=== PATIENT | female | born 1930 | race Caucasian/White ===

== ENCOUNTER 2016-08-05 08:22 | Outpatient (RCR) | payer MEDICARE ==
--- OUTSIDE RECORDS SUMMARY | 2016-05-19 09:52 | XMS REPORT | Continuity of Care Document ---
Author Author [facility] Organization [facility] Address Unknown Phone Unavailable Care Team Providers Care Hull [employer] Deck Remover Name Role Phone ANA LOMBARDI MD PCP Insurance Providers Payer Name Policy Number Subscriber Name Relationship Wps Medicare [id number] Mackenzie Cameronred I 18 Self / Same As Patient Blue Cross [facility] Supp [id number] Mackenzie Cameronred I 18 Self / Same As Patient Advance Directives Directive Response Recorded Date/Time Advance Directives Yes 11/23/13 10:12am Health Care Power of Survey Engineer Yes 11/23/13 10:12am Organ Donor No 11/23/13 10:12am Problems Medical Problems Problem Onset Date Status Abrasion Unknown Active CERVICAL STRAIN Unknown Active HEAD CONTUSION Unknown Active Hematoma Unknown Active LEFT HAND CONTUSION Unknown Active PERIORBITAL CONTUSION Unknown Active S/P FALL Unknown Active Medications Medication Dose Route Sig Days/Qty Instructions Order Date Discontinued Date Status [synthroid] 12/21/06 02/29/08 Discontinued Warfarin Sodium 12/21/06 06/08/09 Discontinued Acetaminophen 12/21/06 06/08/09 Discontinued Multivitamins 1 Tab PO DAILY 12/21/06 Active Aspirin 12/21/06 11/18/13 Discontinued [enablex] 12/21/06 02/29/08 Discontinued [Enavlex] 02/16/07 02/29/08 Discontinued [Cytomel 25MCG] 02/29/08 07/28/12 Discontinued Hydrochlorothiazide 02/29/08 09/16/09 Discontinued Metoprolol Succinate 100 Mg PO DAILY 02/29/08 11/18/13 Discontinued Levothyroxine Sodium 100 Mcg PO DAILY 02/29/08 Active Warfarin Sodium 02/29/08 06/08/09 Discontinued Warfarin Sodium 02/29/08 06/08/09 Discontinued [Oscal 500 W/Vit.d] 02/29/08 06/08/09 Discontinued Potassium Chloride 10 Meq PO DAILY 02/29/08 Active Calcium Carbonate/Vitamin D3 06/08/09 09/16/09 Discontinued Warfarin Sodium 06/08/09 09/16/09 Discontinued [Tylenol Arthritis] 06/08/09 09/16/09 Discontinued Alendronate Sodium 75 Mg PO WEEKLY 06/08/09 11/18/13 Discontinued Hydrochlorothiazide 25 Mg PO DAILY 06/08/09 Active Solifenacin 06/08/09 07/28/12 Discontinued [Arimidex] 06/08/09 07/28/12 Discontinued Warfarin Sodium 09/16/09 07/28/12 Discontinued Warfarin Sodium 5 Mg PO BEDTIME takes 1/2 (5mg) tab on thursday and , takes a full (5mg) tab 09/16/09 Active Acetaminophen/Diphenhydramine 2 Tab PO BEDTIME 09/16/09 Active [Tylenol Arthritis] 2 Tab PO 0800, 1300 09/16/09 Active Tolterodine Tartrate 2 Each PO DAILY 07/28/12 08/13/13 Discontinued Anastrozole 1 Mg PO DAILY 07/28/12 08/13/13 Discontinued Cholecalciferol (Vitamin D3) 2,000 Unit PO DAILY 08/13/13 Active Fesoterodine Fumarate 8 Mg PO DAILY 08/13/13 11/24/13 Discontinued Memantine 10 Mg PO DAILY 08/13/13 Active Metoprolol Succinate (Toprol Xl) 100 Mg PO DAILY 11/18/13 Active Docusate Sodium 100 Mg PO BEDTIME 11/18/13 Active Estrogens Conjugated 0.5 Gm VG BEDTIME 11/18/13 Active Liothyronine Sodium 25 Mcg PO DAILY 11/18/13 Active Alendronate Sodium 70 Mg PO WEEKLY 11/18/13 Active Ciprofloxacin HCl 500 Mg PO TWICE A DAY 10 Qty 11/24/13 Active Social History Social History Problem Response Recorded Date/Time Alcohol Use Rarely Uses 11/23/2013 10:14am Recreational Drug Use No 11/23/2013 10:14am Hospital Discharge Instructions No hospital discharge instructions. Plan of Care No plan of care. Functional Status No functional status results. Allergies, Adverse Reactions, Alerts Allergen Type Severity Reaction Status Last Updated morphine Adverse Reaction Mild NAUSEA Active 02/29/08 Codeine Adverse Reaction Mild NAUSEA Active 02/29/08 Pentazocine Allergy Unknown Active 12/21/06 meperidine Allergy Unknown Active 12/21/06 Immunizations Name Given Type Date of Pneumonia Vaccine 07/17/09 Historical Date of Influenza Vaccine 06/17/13 Historical Hepatitis A No Historical Hepatitis B No Historical Tetanus Booster (TDap) Unknown Historical Vital Signs No known vital signs results. Results Test Source Date Result Interp. Ref. Range Comments Activated Partial Thromboplast Time July 19, 2007 10:45am 27 SEC N 24-35 Has specimen been collected/obtained? Y Alanine Aminotransferase (ALT/SGPT) November 10, 2013 8:45am 42 U/L N 30- 65 Albumin November 10, 2013 8:45am 3.6 G/DL N 3.4-5.0 Alkaline Phosphatase November 10, 2013 8:45am 123 U/L N 50-136 Aspartate Amino Transf (AST/SGOT) November 10, 2013 8:45am 25 U/L N 15-37 BUN/Creatinine Ratio November 10, 2013 8:45am 16 - Band Neutrophils December 22, 2006 6:45am 0 % - Basophils # (Auto) November 10, 2013 8:45am 0.1 10^3/uL N 0.0-0.1 Basophils % (Manual) December 22, 2006 6:45am 2 % - Basophils (%) (Auto) November 10, 2013 8:45am 1 % N 0-10 Bleeding Time June 04, 2009 1:45pm 7.0 MIN N 2.5-9.5 Blood Urea Nitrogen November 10, 2013 8:45am 11 MG/DL N 7-18 CA 27.29 November 06, 2011 8:31am 12.6 U/ML - Calcium Level November 10, 2013 8:45am 8.7 MG/DL N 8.5-10.1 Carbon Dioxide Level November 10, 2013 8:45am 34 MMOL/L H 21-32 Chloride Level November 10, 2013 8:45am 102 MMOL/L N 101-110 Creatinine November 10, 2013 8:45am 0.7 MG/DL N 0.6-1.3 Eosinophils # (Auto) November 10, 2013 8:45am 0.2 10^3/uL N 0.0-0.3 Eosinophils % (Manual) December 22, 2006 6:45am 2 % - Eosinophils (%) (Auto) November 10, 2013 8:45am 3 % N 0-10 Erythrocyte Sedimentation Rate December 22, 2006 6:45am 67 MM/HR H 0-30 Free Thyroxine December 21, 2006 5:45pm 0.73 NG/DL N 0.59-1.17 Glucose Level November 10, 2013 8:45am 91 MG/DL N 74-106 Hematocrit November 10, 2013 8:45am 40 % N 35-52 Hemoglobin November 10, 2013 8:45am 12.8 G/DL N 11.5-16.0 Lymphocytes # (Auto) November 10, 2013 8:45am 1.3 X 10^3 N 1.0-4.0 Lymphocytes % (Manual) December 22, 2006 6:45am 12 % - Lymphocytes (%) (Auto) November 10, 2013 8:45am 23 % N 12-44 Magnesium Level May 14, 2010 8:59am 1.8 MG/DL N 1.8-2.4 Mean Corpuscular Hemoglobin November 10, 2013 8:45am 30 PG N 25-34 Mean Corpuscular Hemoglobin Concent November 10, 2013 8:45am 32 G/DL N 32- 36 Mean Corpuscular Volume November 10, 2013 8:45am 92 FL N 80-99 Mean Platelet Volume November 10, 2013 8:45am 9.3 FL N 7.4-10.4 Monocytes # (Auto) November 10, 2013 8:45am 0.6 X 10^3 N 0.0-1.0 Monocytes % (Manual) December 22, 2006 6:45am 7 % - Monocytes (%) (Auto) November 10, 2013 8:45am 10 % N 0-12 Neutrophils # (Auto) November 10, 2013 8:45am 3.5 X 10^3 N 1.8-7.8 Neutrophils % (Manual) December 22, 2006 6:45am 77 % - Neutrophils (%) (Auto) November 10, 2013 8:45am 63 % N 42-75 Phosphorus Level February 18, 2007 6:30am 3.2 MG/DL N 2.5-4.9 Platelet Count November 10, 2013 8:45am 216 10^3/uL N 130-400 Potassium Level November 10, 2013 8:45am 3.7 MMOL/L N 3.6-5.0 Prothromb Time International Ratio November 08, 2012 9:45am 2.7 H 0.8-1.4 INTERPRETIVE DATASUGGESTED THERAPEUTIC RANGE FOR INR'S: VENOUS THROMBOSIS, PULMONARY EMBOLISM, OR PREVENTION OF SYSTEMIC EMBOLISM (EG. IN ATRIAL FIBRILLATION): 2.0 - 3.0 MECHANICAL PROSTHETIC HEART VALVES: 2.5 - 3.5* *NOTE: INR'S UP TO 4.5 MAY BE NECESSARY IN SELECTED GROUPS OF HIGH RISK PATIENTS. [employer] CONSENSUS CONFERENCE ON ANTITHROMBOTIC THERAPY (2000). Prothrombin Time April 05, 2014 8:45am 29.6 SEC H 12.2-14.7 RBC Morphology Bizarre Forms December 22, 2006 6:45am Normal - Red Blood Count November 10, 2013 8:45am 4.33 10^6/uL L 4.35-5.85 Red Cell Distribution Width November 10, 2013 8:45am 14.1 % N 10.0-14.5 Sodium Level November 10, 2013 8:45am 137 MMOL/L N 135-145 Thyroid Stimulating Hormone (TSH) November 22, 2007 9:38am 1.49 UIU/ML N 0.34-5.60 Total Bilirubin November 10, 2013 8:45am 0.4 MG/DL N 0.0-1.0 Total Protein November 10, 2013 8:45am 7.1 G/DL N 6.4-8.2 Urine Bacteria June 04, 2009 1:33pm NEGATIVE - Has specimen been collected/obtained? YSpecimen Description CLEAN CATCH Urine Bilirubin June 04, 2009 1:33pm NEGATIVE - Has specimen been collected/obtained? YSpecimen Description CLEAN CATCH Urine Casts June 04, 2009 1:33pm NONE - Has specimen been collected/obtained? YSpecimen Description CLEAN CATCH Urine Clarity June 04, 2009 1:33pm CLEAR - Has specimen been collected/obtained? YSpecimen Description CLEAN CATCH Urine Color June 04, 2009 1:33pm YELLOW - Has specimen been collected/obtained? YSpecimen Description CLEAN CATCH Urine Crystals June 04, 2009 1:33pm NONE - Has specimen been collected/obtained? YSpecimen Description CLEAN CATCH Urine Culture Indicated June 04, 2009 1:33pm NO - Has specimen been collected/obtained? YSpecimen Description CLEAN CATCH Urine Glucose (UA) June 04, 2009 1:33pm NEGATIVE - Has specimen been collected/obtained? YSpecimen Description CLEAN CATCH Urine Ketones June 04, 2009 1:33pm NEGATIVE - Has specimen been collected/obtained? YSpecimen Description CLEAN CATCH Urine Leukocyte Esterase June 04, 2009 1:33pm NEGATIVE - Has specimen been collected/obtained? YSpecimen Description CLEAN CATCH Urine Mucus June 04, 2009 1:33pm NEGATIVE - Has specimen been collected/obtained? YSpecimen Description CLEAN CATCH Urine Nitrate December 21, 2006 7:20pm Negative - Specimen Description VOID Urine Nitrite June 04, 2009 1:33pm NEGATIVE - Has specimen been collected/obtained? YSpecimen Description CLEAN CATCH Urine Protein June 04, 2009 1:33pm NEGATIVE - Has specimen been collected/obtained? YSpecimen Description CLEAN CATCH Urine RBC June 04, 2009 1:33pm NONE /HPF - Has specimen been collected/obtained? YSpecimen Description CLEAN CATCH Urine Specific [place] June 04, 2009 1:33pm 1.015 L - Has specimen been collected/obtained? YSpecimen Description CLEAN CATCH Urine Squamous Epithelial Cells June 04, 2009 1:33pm 0-2 - Has specimen been collected/obtained? YSpecimen Description CLEAN CATCH Urine Urobilinogen June 04, 2009 1:33pm NORMAL MG/DL - Has specimen been collected/obtained? YSpecimen Description CLEAN CATCH Urine WBC June 04, 2009 1:33pm NONE /HPF - Has specimen been collected/obtained? YSpecimen Description CLEAN CATCH Urine pH June 04, 2009 1:33pm 6.0 - Has specimen been collected/ obtained? YSpecimen Description CLEAN CATCH Vitamin D 1,25-Dihydroxy August 01, 2010 10:58am 47 PG/ML - TEST INFORMATION: VITAMIN D, 1,25-Dihydroxy This test is primarily indicated during patient evaluation for hypercalcemia and renal failure. A normal result does not rule out Vitamin D deficiency. The recommended test for diagnosing Vitamin D deficiency is Vitamin D 25-hydroxy (8908183). Performed by [facility], [address] [place] [id number] [email or web address], Amie Araiza MD - Lab. Director White Blood Count November 10, 2013 8:45am 5.5 10^3/uL N 4.3-11.0 Lab Scanned Report June 08, 2009 5:45am Blood Transfusion Reaction Interp [id number] - Estimat Glomerular Filtration Rate November 10, 2013 8:45am > 60 - GFR INTERPRETIVE DATA UNITS FOR ESTIMATED GFR (eGFR): mL/min/1.73 M2 REFERENCE RANGE FOR ESTIMATED GFR (eGFR) eGFR NORMAL eGFR >60 MODERATELY DECREASED eGFR 30-59 SEVERLY DECREASED eGFR 15-29 KIDNEY FAILURE <15 (OR DIALYSIS) Urine RBC (Auto) June 04, 2009 1:33pm TRACE H - Has specimen been collected/obtained? YSpecimen Description CLEAN CATCH INR Comment April 05, 2014 8:45am 2.9 H 0.8-1.4 INTERPRETIVE DATASUGGESTED THERAPEUTIC RANGE FOR INR'S: VENOUS THROMBOSIS, PULMONARY EMBOLISM, OR PREVENTION OF SYSTEMIC EMBOLISM (EG. IN ATRIAL FIBRILLATION): 2.0 - 3.0 MECHANICAL PROSTHETIC HEART VALVES: 2.5 - 3.5* *NOTE: INR'S UP TO 4.5 MAY BE NECESSARY IN SELECTED GROUPS OF HIGH RISK PATIENTS. [employer] CONSENSUS CONFERENCE ON ANTITHROMBOTIC THERAPY (2000). Clostridium difficile Toxin Assay Stool December 24, 2006 1:50pm MRSA Screen Nasal November 17, 2013 2:25pm MRSA not isolated Urine Culture Urine-Clean Catch December 21, 2006 7:20pm Procedures No known history of procedures. Encounters Encounter Location Date/Time Registered Recurring Via [facility] 04/14/14 9:14am Registered Recurring [facility] 04/13/14 8:21am Discharged Recurring [facility] 04/05/14 8:35am
[2016-05-19 10:39] LABS: INR 2.1 (0.8-1.4); PROTHROMBIN TIME PATIENT 23.7 SEC (12.2-14.7)
[2016-06-10 09:24] LABS: INR 2.3 (0.8-1.4); PROTHROMBIN TIME PATIENT 25.4 SEC (12.2-14.7)
[2016-07-08 09:14] LABS: INR 2.4 (0.8-1.4)
[~2016-08-05 08:22] MED LIST: AC325T; ACDPT; ACDPT PO; ALEN35TA20 PO; ALEN70TA47 PO; ANAS1TAB7 PO; ARIMIDEX; ASP81TEC; ASPI-892 PO; BENZ100C18 PO; CALC1TAB88; CEFU800T34 PO; CHOL200035 PO; CIPR500T4 PO; CIPR500T78 PO; CYCL5TAB PO; CYTOMEL; D50KC; DICL100G18 TP; DOCU100T7 PO; EST45C VG; FESO8TAB PO; HCT25T; HCT25T PO; HYDR25TA4 PO; KCL10CCR PO; LEVO100T PO; LIOT25TA3 PO; LOSA25TA21 PO; LVT.1T PO; MEMA10TA PO; METO100T5 PO; METO50TA7 PO; MULT1TAB63 PO; NF-TYLARTH PO; OSCAL; OXYB10TA8 PO; POTA10CA43 PO; PRD20T PO; Pantoprazole Sodium PO; SOLI10TA4; TOLTA4 PO; TRAM50TA2 PO; TYLENOL ARTHRITIS; TYLENOL ARTHRITIS PO; VIT D; WARF2TAB6 PO; WARF3TAB6 PO; WARF4TAB7 PO; WARF7.5T; WARF7.5T PO; WRF2.5T; WRF5T; WRF5T PO; [UNRECOGNIZED DRUG - OTHER]; enablex; synthroid
[2016-08-05 09:07] LABS: INR 2.3 (0.8-1.4); PROTHROMBIN TIME PATIENT 25.1 SEC (12.2-14.7)
== END 2016-08-17 | disposition home or self-care (01) ==
LOC: ONC 08:22
PROVIDERS: ATTEND Internal Medicine Hematology & Oncology
DX: Z08 Encounter for follow-up examination after completed treatment for malignant neoplasm (principal); Z85.3 Personal history of malignant neoplasm of breast; M85.80 Other specified disorders of bone density and structure, unspecified site; Z86.718 Personal history of other venous thrombosis and embolism; Z95.2 Presence of prosthetic heart valve; Z79.01 Long term (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 of anticoagulants; Z90.12 Acquired absence of left breast and nipple
CPT/HCPCS: 36415; 85610

== ENCOUNTER → 2016-10-06 | Outpatient (CLI) | payer MEDICARE ==
--- OUTSIDE RECORDS SUMMARY | 2016-10-06 15:07 | XMS REPORT | Continuity of Care Document ---
Author Author [facility] Organization [facility] Address Unknown Phone Unavailable Care Team Providers Care Cloth Dye Range Operator Name Role Phone ANA LOMBARDI MD PCP Insurance Providers Payer Name Policy Number Subscriber Name Relationship Wps Medicare [id number] Mackenzie Cameronred I 18 Self / Same As Patient Blue Cross [facility] Supp [id number] Mackenzie Cameronred I 18 Self / Same As Patient Advance Directives Directive Response Recorded Date/Time Advance Directives Yes 11/23/13 10:12am Health Care Power of Ict Trainer Yes 11/23/13 10:12am Organ Donor No 11/23/13 [...] SELECTED GROUPS OF HIGH RISK PATIENTS. [employer] [place] [employer] CONSENSUS CONFERENCE ON [...] collected/obtained? YSpecimen Description CLEAN CATCH Urine Specific [place] June 04, 2009 1:33pm 1.015 L - [...] Vitamin D deficiency is Vitamin D 25-hydroxy ([id number]). Performed by [facility], [address] [place] [id number] [email or web address], Amie Araiza MD - Lab. Director White Blood Count November 10, 2013 8:45am 5.5 10^3/uL N 4.3-11.0 Lab Scanned Report June 08, 2009 5:45am Blood Transfusion Reaction Interp [id number] - Estimat Glomerular Filtration Rate November 10, [...] SELECTED GROUPS OF HIGH RISK PATIENTS. [employer] [place] [employer] CONSENSUS CONFERENCE ON ANTITHROMBOTIC THERAPY (2000). Clostridium difficile Toxin Assay Stool December 24, 2006 1:50pm MRSA Screen Nasal November 17, 2013 2:25pm MRSA not isolated Urine Culture Urine-Clean Catch December 21, 2006 7:20pm Procedures No known history of procedures. Encounters Encounter Location Date/Time Registered Recurring [facility] 04/14/14 9:14am Registered Recurring [facility] 04/13/14 8:21am Discharged Recurring [facility] 04/05/14 8:35am
--- NOTE | 2016-10-06 19:24 | Diagnostic Imaging Report ---
INDICATION: Pain. FINDINGS: There are moderately severe degenerative changes in the glenohumeral joint. There is subchondral sclerosis and marginal osteophytosis. There is no fracture or dislocation. Soft tissues are unremarkable. 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 Dictated by: Dictated on workstation # [id number]
--- NOTE | 2016-10-06 19:28 | Diagnostic Imaging Report ---
INDICATION: Pneumonia. Comparison made with prior examination of 05/05/2016. FINDINGS: The heart size is stable. There is unchanged scarring in the right upper lobe. There has been previous median sternotomy. There is no pleural effusion or pneumothorax. Mediastinum is unremarkable. IMPRESSION: No acute cardiopulmonary abnormality. Unchanged scarring or atelectasis in the right upper lobe. Dictated by: Dictated on workstation # [id number]
== END ==
LOC: RAD 15:03
PROVIDERS: ATTEND Family Medicine
DX: J18.9 Pneumonia, unspecified organism (principal); M25.511 Pain in right shoulder
CPT/HCPCS: 71020; 73030

== ENCOUNTER 2016-11-18 12:14 | Outpatient (RCR) | payer MEDICARE ==
--- OUTSIDE RECORDS SUMMARY | 2016-09-02 08:41 | XMS REPORT | Continuity of Care Document ---
Author Author [facility] Organization [facility] Address Unknown Phone Unavailable Care Team Providers Care Filtering Machine Tender Helper Name Role Phone ANA LOMBARDI MD PCP Insurance Providers Payer Name Policy Number Subscriber Name Relationship Wps Medicare [id number] Mackenzie Cameronred I 18 Self / Same As Patient Blue Cross [facility] Supp [id number] Mackenzie Cameronred I 18 Self / Same As Patient Advance Directives Directive Response Recorded Date/Time Advance Directives Yes 11/23/13 10:12am Health Care Power of Tyre Builder Yes 11/23/13 10:12am Organ Donor No 11/23/13 [...] SELECTED GROUPS OF HIGH RISK PATIENTS. [employer] [place] [employer] CONSENSUS CONFERENCE ON [...] collected/obtained? YSpecimen Description CLEAN CATCH Urine Specific [place] June 04, 2009 1:33pm 1.015 L - [...] Vitamin D deficiency is Vitamin D 25-hydroxy ([id number]). Performed by [facility], [address] [place] [id number] [email or web address], Amie Araiza MD - Lab. Director White Blood Count November 10, 2013 8:45am 5.5 10^3/uL N 4.3-11.0 Lab Scanned Report June 08, 2009 5:45am Blood Transfusion Reaction Interp [id number] - Estimat Glomerular Filtration Rate November 10, [...] SELECTED GROUPS OF HIGH RISK PATIENTS. [place] [place] [employer] CONSENSUS CONFERENCE ON ANTITHROMBOTIC THERAPY (2000). Clostridium difficile Toxin Assay Stool December 24, 2006 1:50pm MRSA Screen Nasal November 17, 2013 2:25pm MRSA not isolated Urine Culture Urine-Clean Catch December 21, 2006 7:20pm Procedures No known history of procedures. Encounters Encounter Location Date/Time Registered Recurring [facility] 04/14/14 9:14am Registered Recurring [facility] 04/13/14 8:21am Discharged Recurring [facility] 04/05/14 8:35am
[2016-09-02 09:23] LABS: INR 1.9 (0.8-1.4); PROTHROMBIN TIME PATIENT 21.6 SEC (12.2-14.7)
[2016-09-16 09:24] LABS: INR 1.6 (0.8-1.4); PROTHROMBIN TIME PATIENT 18.7 SEC (12.2-14.7)
[2016-09-23 09:12] LABS: INR 1.9 (0.8-1.4); PROTHROMBIN TIME PATIENT 21.6 SEC (12.2-14.7)
[2016-10-06 15:29] LABS: INR 4.1 (0.8-1.4); PROTHROMBIN TIME PATIENT 39.8 SEC (12.2-14.7)
[2016-10-14 09:36] LABS: INR 2.7 (0.8-1.4); PROTHROMBIN TIME PATIENT 28.6 SEC (12.2-14.7)
[2016-10-21 09:18] LABS: INR 1.6 (0.8-1.4); PROTHROMBIN TIME PATIENT 19.1 SEC (12.2-14.7)
[2016-10-28 09:28] LABS: INR 2.3 (0.8-1.4); PROTHROMBIN TIME PATIENT 24.9 SEC (12.2-14.7)
[2016-11-04 08:59] LABS: BASOPHILS % (AUTO) 1 % (0-10); EOSINOPHILS # (AUTO) 0.2 10^3/uL (0.0-0.3); EOSINOPHILS % (AUTO) 3 % (0-10); LYMPHOCYTES # (AUTO) 1.1 X 10^3 (1.0-4.0); LYMPHOCYTES % (AUTO) 15 % (12-44); MEAN CORPUSCULAR HEMOGLOBIN 29 PG (25-34); MEAN CORPUSCULAR HGB CONC 33 G/DL (32-36); MEAN CORPUSCULAR VOLUME 91 FL (80-99); MEAN PLATELET VOLUME 8.8 FL (7.4-10.4); MONOCYTES # (AUTO) 0.6 X 10^3 (0.0-1.0); MONOCYTES % (AUTO) 8 % (0-12); NEUTROPHILS # (AUTO) 5.1 X 10^3 (1.8-7.8); NEUTROPHILS % (AUTO) 72 % (42-75); PLATELET COUNT 215 10^3/uL (130-400); RED BLOOD COUNT 4.28 10^6/uL (4.35-5.85); RED CELL DISTRIBUTION WIDTH 14.8 % (10.0-14.5); WHITE BLOOD COUNT 7.1 10^3/uL (4.3-11.0)
[2016-11-04 09:28] LABS: INR 2.5 (0.8-1.4); PROTHROMBIN TIME PATIENT 26.6 SEC (12.2-14.7)
[2016-11-04 09:43] LABS: ALANINE AMINOTRANSFERASE 18 U/L (0-55); ALBUMIN 3.9 G/DL (3.2-4.5); ANION GAP 10 MMOL/L (5-14); ASPARTATE AMINO TRANSFERASE 21 U/L (5-34); BILIRUBIN,TOTAL 0.4 MG/DL (0.1-1.0); BLOOD UREA NITROGEN 12 MG/DL (7-18); BUN/CREATININE RATIO 15; CALCIUM 8.8 MG/DL (8.5-10.1); CARBON DIOXIDE 27 MMOL/L (21-32); CHLORIDE 102 MMOL/L (98-107); CREATININE SERUM 0.79 MG/DL (0.60-1.30); GFR ESTIMATED > 60; GLUCOSE 89 MG/DL (70-105); POTASSIUM 3.8 MMOL/L (3.6-5.0); SODIUM 139 MMOL/L (135-145); TOTAL PROTEIN 6.6 G/DL (6.4-8.2)
[2016-11-18 13:14] LABS: INR 2.1 (0.8-1.4); PROTHROMBIN TIME PATIENT 22.9 SEC (12.2-14.7)
== END 2016-12-01 | disposition home or self-care (01) ==
LOC: ONC 12:14
PROVIDERS: ATTEND Internal Medicine Hematology & Oncology
DX: Z08 Encounter for follow-up examination after completed treatment for malignant neoplasm (principal); Z85.3 Personal history of malignant neoplasm of breast; M85.80 Other specified disorders of bone density and structure, unspecified site; Z86.718 Personal history of other venous thrombosis and embolism; Z95.2 Presence of prosthetic heart valve; Z79.01 Long term (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 of anticoagulants; Z90.12 Acquired absence of left breast and nipple
CPT/HCPCS: 36415; 80053; 85025; 85610; 99213

== ENCOUNTER → 2016-11-20 | Outpatient (CLI) | payer MEDICARE ==
--- NOTE | 2016-11-20 19:27 | Diagnostic Imaging Report ---
EXAMINATION: Right breast ultrasound. INDICATION: Asymmetry in the inferior aspect of the breast and outer breast pain. FINDINGS: The four quadrants and the retroareolar region and axilla were scanned with no underlying abnormality found. IMPRESSION: Negative study. Clinical followup of patient's complaints recommended. ACR BI-RADS Category 1: Negative. Result letter will be mailed to the patient. Note: At least 10% of breast cancer is not imaged by mammography. Dictated by: Dictated on workstation # [id number]
--- NOTE | 2016-11-20 19:32 | Diagnostic Imaging Report ---
EXAMINATION: Right breast digital diagnostic mammogram with CAD. The current study was also evaluated with a Computer Aided Detection (CAD) system. INDICATION: History of breast cancer. Right axillary pain. COMPARISON: 11/19/2015. FINDINGS: Previous surgical changes are seen with extensive benign-appearing calcifications noted. The breast tissue demonstrates heterogeneously dense parenchyma, particularly in the outer aspect of the breast, which may decrease mammographic sensitivity. No definitive abnormality is seen in the axilla area. There is also an asymmetry in the inferior aspect of the right breast which was evaluated with focal compression view which demonstrates underlying densities similar to parenchyma with no definite focal lesion. When prior studies are evaluated and when accounting for technique and positional differences, this area appears stable with no definite change. IMPRESSION: No mammographic evidence of malignancy. Ultrasound evaluation pending. ACR BI-RADS Category 0: Incomplete. (Needs additional imaging evaluation). Result letter will be mailed to the patient. Note: At least 10% of breast cancer is not imaged by mammography. Dictated by: Dictated on workstation # [id number]
== END ==
LOC: RAD 08:37
PROVIDERS: ATTEND Nurse Practitioner Adult Health
DX: C50.112 Malignant neoplasm of central portion of left female breast (principal)
CPT/HCPCS: 76641

== ENCOUNTER 2016-12-11 12:56 | Outpatient (RCR) | payer MEDICARE | END 2016-12-12 09:04 | disposition home or self-care (01) | PROVIDERS: ATTEND Nurse Practitioner Adult Health | DX: M25.511 Pain in right shoulder (principal) ==

== ENCOUNTER 2017-02-24 08:37 | Outpatient (RCR) | payer MEDICARE ==
[2016-12-02 09:25] LABS: PROTHROMBIN TIME PATIENT 22.6 SEC (12.2-14.7)
[2016-12-16 09:23] LABS: INR 2.5 (0.8-1.4); PROTHROMBIN TIME PATIENT 26.5 SEC (12.2-14.7)
[2017-01-06 09:23] LABS: INR 3.1 (0.8-1.4); PROTHROMBIN TIME PATIENT 32.1 SEC (12.2-14.7)
[2017-01-27 09:43] LABS: INR 2.6 (0.8-1.4); PROTHROMBIN TIME PATIENT 27.6 SEC (12.2-14.7)
[2017-02-24 10:17] LABS: INR 1.8 (0.8-1.4); PROTHROMBIN TIME PATIENT 20.4 SEC (12.2-14.7)
== END 2017-03-02 | disposition home or self-care (01) ==
LOC: ONC 08:37
PROVIDERS: ATTEND Internal Medicine Hematology & Oncology
DX: Z08 Encounter for follow-up examination after completed treatment for malignant neoplasm (principal); Z85.3 Personal history of malignant neoplasm of breast; M85.80 Other specified disorders of bone density and structure, unspecified site; Z86.718 Personal history of other venous thrombosis and embolism; Z95.2 Presence of prosthetic heart valve; Z79.01 Long term (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 of anticoagulants; Z90.12 Acquired absence of left breast and nipple
CPT/HCPCS: 36415; 85610

== ENCOUNTER → 2017-03-04 | Outpatient (CLI) | payer MEDICARE ==
--- NOTE | 2017-03-04 11:18 | Diagnostic Imaging Report ---
CLINICAL INDICATION: Patient with low back pain with no trauma or injury. Back pain just started hurting and got worse. EXAM: X-ray of the lumbar spine, four views. COMPARISON: None. FINDINGS: There is bowel gas overlying the mid and lower lung field and diffuse osteopenia which limits evaluation for fine bony detail. There is mild levoscoliosis of lumbar spine. There is no gross acute lumbar spine fracture seen. There is vertebral body spurs involving lumbar spine and mid to lower lumbar spine facet arthropathy/sclerosis. There appears to be subtle grade 1 anterolisthesis of L4 on L5. There is mild loss of intervertebral disc height at the L4-5 level and moderate loss at the L5-S1 level. The sacroiliac joints, sacrum, and visualized portions of the pelvis are unremarkable. IVC filter is seen with tip overlying the L1-L2 intervertebral level. IMPRESSION: 1: There is no gross evidence of acute fracture seen on this exam. Given the diffuse osteopenia, if there is concern for acute fracture, then MRI of the lumbar spine would better evaluate. 2: Lumbar spine degenerative disease including mild levoscoliosis. Dictated by: Dictated on workstation # [id number]
== END ==
LOC: LAB 09:32
PROVIDERS: ATTEND Nurse Practitioner Family
DX: M47.816 Spondylosis without myelopathy or radiculopathy, lumbar region (principal); M41.26 Other idiopathic scoliosis, lumbar region; M85.89 Other specified disorders of bone density and structure, multiple sites
CPT/HCPCS: 72100

== ENCOUNTER 2017-05-05 08:35 | Outpatient (RCR) | payer MEDICARE ==
[2017-03-10 09:40] LABS: INR 6.5 (0.8-1.4); PROTHROMBIN TIME PATIENT 57.3 SEC (12.2-14.7)
[2017-03-13 11:10] LABS: INR 1.3 (0.8-1.4); PROTHROMBIN TIME PATIENT 15.8 SEC (12.2-14.7)
[2017-03-19 09:38] LABS: INR 1.6 (0.8-1.4); PROTHROMBIN TIME PATIENT 19.2 SEC (12.2-14.7)
[2017-03-25 11:26] LABS: INR 2.4 (0.8-1.4); PROTHROMBIN TIME PATIENT 25.7 SEC (12.2-14.7)
[2017-04-07 09:51] LABS: INR 4.1 (0.8-1.4); PROTHROMBIN TIME PATIENT 39.2 SEC (12.2-14.7)
[2017-04-14 09:15] LABS: INR 2.6 (0.8-1.4); PROTHROMBIN TIME PATIENT 27.8 SEC (12.2-14.7)
[2017-04-21 10:26] LABS: INR 2.8 (0.8-1.4); PROTHROMBIN TIME PATIENT 29.2 SEC (12.2-14.7)
[2017-05-05 09:08] LABS: BASOPHILS % (AUTO) 0 % (0-10); EOSINOPHILS # (AUTO) 0.1 10^3/uL (0.0-0.3); EOSINOPHILS % (AUTO) 2 % (0-10); LYMPHOCYTES % (AUTO) 15 % (12-44); MEAN CORPUSCULAR HEMOGLOBIN 28 PG (25-34); MEAN CORPUSCULAR HGB CONC 32 G/DL (32-36); MEAN CORPUSCULAR VOLUME 89 FL (80-99); MEAN PLATELET VOLUME 8.6 FL (7.4-10.4); MONOCYTES # (AUTO) 0.8 X 10^3 (0.0-1.0); MONOCYTES % (AUTO) 12 % (0-12); NEUTROPHILS # (AUTO) 4.8 X 10^3 (1.8-7.8); NEUTROPHILS % (AUTO) 71 % (42-75); PLATELET COUNT 236 10^3/uL (130-400); RED BLOOD COUNT 4.22 10^6/uL (4.35-5.85); WHITE BLOOD COUNT 6.8 10^3/uL (4.3-11.0)
[2017-05-05 10:01] LABS: INR 2.5 (0.8-1.4); PROTHROMBIN TIME PATIENT 26.9 SEC (12.2-14.7)
[2017-05-05 10:07] LABS: ALANINE AMINOTRANSFERASE 18 U/L (0-55); ALBUMIN 3.8 GM/DL (3.2-4.5); ANION GAP 10 MMOL/L (5-14); ASPARTATE AMINO TRANSFERASE 19 U/L (5-34); BILIRUBIN,TOTAL 0.6 MG/DL (0.1-1.0); BLOOD UREA NITROGEN 8 MG/DL (7-18); BUN/CREATININE RATIO 12; CALCIUM 8.9 MG/DL (8.5-10.1); CARBON DIOXIDE 28 MMOL/L (21-32); CHLORIDE 98 MMOL/L (98-107); CREATININE SERUM 0.68 MG/DL (0.60-1.30); GFR ESTIMATED > 60; GLUCOSE 95 MG/DL (70-105); SODIUM 136 MMOL/L (135-145); TOTAL PROTEIN 6.2 GM/DL (6.4-8.2)
[2017-05-13] MEDS ORDERED: MEMA10TA22 PO (11:18)
[2017-05-13] MEDS ORDERED: METO-274 PO (11:18)
[2017-05-13] MEDS ORDERED: ASPI-983 PO (11:18)
[2017-05-13] MEDS ORDERED: MIRA50TA PO (11:18)
[2017-05-13] MEDS ORDERED: POTA10CA43 PO (11:18)
[2017-05-13] MEDS ORDERED: LEVO137T2 PO (11:18)
[2017-05-13] MEDS ORDERED: MULT1TAB69 PO (11:18)
[2017-05-13] MEDS ORDERED: ALEN70TA47 PO (11:18)
[2017-05-13] MEDS ORDERED: PRAV10TA PO (11:18)
[2017-05-13] MEDS ORDERED: HYDR25TA4 PO (11:18)
[2017-05-13] MEDS ORDERED: ACET-2469 PO (11:18)
[2017-05-13] MEDS ORDERED: MULT80TA PO (11:31)
[2017-05-13] MEDS ORDERED: WARF2TAB PO (11:31)
[2017-05-13] MEDS ORDERED: DOCU-143 PO (11:31)
[2017-05-13] MEDS ORDERED: CYAN500T2 PO (11:31)
[2017-05-13] MEDS ORDERED: VIT1CAPS44 PO (11:31)
[2017-05-13] MEDS ORDERED: SLOW IRON PO (11:31)
[2017-05-13] MEDS ORDERED: CHOL20002 PO (11:31)
[2017-05-13] MEDS ORDERED: POLY17PO6 PO (11:31)
[2017-05-13] MEDS ORDERED: ACID1TAB5 PO (11:47)
== END 2017-05-16 | disposition home or self-care (01) ==
LOC: ONC 08:35
PROVIDERS: ATTEND Internal Medicine Hematology & Oncology
DX: Z08 Encounter for follow-up examination after completed treatment for malignant neoplasm (principal); Z85.3 Personal history of malignant neoplasm of breast; M85.80 Other specified disorders of bone density and structure, unspecified site; Z86.718 Personal history of other venous thrombosis and embolism; Z95.2 Presence of prosthetic heart valve; Z79.01 Long term (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 of anticoagulants; Z90.12 Acquired absence of left breast and nipple
CPT/HCPCS: 36415; 80053; 85025; 85610; 99213

== ENCOUNTER 2017-05-11 11:41 | Outpatient (CLI) | payer MEDICARE ==
[~2017-05-11] VITALS: Ht 167.6 cm; Wt 77.1 kg
[2017-05-11] MEDS ORDERED: ONDANSETRON 4 MG/2 ML (SDV) Z0FRAN ONE (11:59)
[2017-05-11] MEDS ORDERED: NS IV 1000 ML 1,000 ML ONE (11:59)
[2017-05-11 12:20] LABS: MEAN PLATELET VOLUME 9.6 FL (7.4-10.4); RED BLOOD COUNT 4.59 10^6/uL (4.35-5.85); WHITE BLOOD COUNT 6.4 10^3/uL (4.3-11.0)
[2017-05-11] MEDS ORDERED: NS IV 1000 ML 1,000 ML IV SCH (12:30)
[2017-05-11] MEDS ORDERED: ONDANSETRON 4 MG/2 ML (SDV) Z0FRAN IVP ONE (12:30)
[2017-05-11 12:32] LABS: ALANINE AMINOTRANSFERASE 25 U/L (0-55); ALBUMIN 3.5 GM/DL (3.2-4.5); ANION GAP 11 MMOL/L (5-14); ASPARTATE AMINO TRANSFERASE 33 U/L (5-34); BILIRUBIN,TOTAL 0.4 MG/DL (0.1-1.0); BLOOD UREA NITROGEN 14 MG/DL (7-18); BUN/CREATININE RATIO 21; CALCIUM 8.2 MG/DL (8.5-10.1); CARBON DIOXIDE 26 MMOL/L (21-32); CHLORIDE 95 MMOL/L (98-107); CREATININE SERUM 0.66 MG/DL (0.60-1.30); GFR ESTIMATED > 60; GLUCOSE 108 MG/DL (70-105); POTASSIUM 3.1 MMOL/L (3.6-5.0); SODIUM 132 MMOL/L (135-145); TOTAL PROTEIN 6.5 GM/DL (6.4-8.2)
[2017-05-11 12:49] VITALS: BP 141/71
--- NOTE | 2017-05-11 12:51 | Diagnostic Imaging Report ---
EXAMINATION: Three views of the right shoulder. INDICATION: Fall. FINDINGS: No fracture, dislocation, or radiopaque foreign body is seen. The AC joint demonstrates mild narrowing and hypertrophic degenerative change. There are also inferior osteophytes along the glenohumeral joint with mild irregularity of the articular surface. There is suggestion of scarring in the right suprahilar region of the lung. IMPRESSION: Degenerative changes. No fracture is seen. Dictated by: Dictated on workstation # [id number]
[2017-05-11 17:33] LABS: BILIRUBIN,URINE NEGATIVE (NEGATIVE); KETONES,URINE 4+ (NEGATIVE); LEUKOCYTE ESTERASE ,URINE 2+ (NEGATIVE); NITRITE,URINE NEGATIVE (NEGATIVE); PH,URINE 6 (5-9); PROTEIN,URINE 2+ (NEGATIVE); UROBILINOGEN,URINE 4 MG/DL (NORMAL)
[2017-05-11 17:35] LABS: SQUAMOUS EPITHELIAL CELL,UR RARE /HPF
== END 2017-05-11 14:15 | disposition home or self-care (01) ==
LOC: SDC 11:41
PROVIDERS: ATTEND Nurse Practitioner Family
DX: E86.0 Dehydration (principal); R53.1 Weakness; R53.83 Other fatigue
CPT/HCPCS: 36415; 73030; 80053; 81000; 85027; 96360; 96375

== ENCOUNTER 2017-05-12 17:04 | Inpatient (IN) | payer MEDICARE ==
[~2017-05-12] VITALS: Ht 165.1 cm; Wt 81.2 kg
[2017-05-12 00:30] VITALS: BP 106/54
--- NOTE | 2017-05-12 18:20 | ED General ---
General Chief Complaint: Dizziness/Syncope Stated Complaint: SOA,WEAKNESS Nursing Triage Note: hx of fall last Sat night, f/u with Héctor this last Thursday and sent to [facility] for fluids, xray and labs, daughter with pt and states she has had diarrhea and extreme weakness, pt currently has appt with cardiology (Dr. Butler) for echo and f/u this . Pt states she is not eating and has only urinated once today with minimal amount. Diarrhea x2 today, loose and watery, denies blood in stool. Nursing Sepsis Screen: No Definite Risk Source of Information: Patient, Family Exam Limitations: No Limitations History of Present Illness Time Seen by Provider: 18:17 Initial Comments Brought to ER by her daughter with reports of general weakness for the past few days. Patient is a poor appetite has not been eating or drinking as well as only urinated one time today. She did have 2 episodes of watery diarrhea without blood or mucus. Patient denies any abdominal pain. She did fall at home landing on her shoulder a few days ago. She denies any persistent shoulder pain or striking her head at that time. She did see any Darrion from Dr. Anaya's clinic last week and had outpatient labs drawn in addition to IV fluids. Reassessment has been ongoing for one week and this follows 2 rounds of antibiotics for urinary tract infection. Timing/Duration: 1-2 Days Severity: Moderate Associated Systoms: Nausea/Vomiting (nausea without vomiting), Weakness Allergies and Home Medications Allergies Coded Allergies: meperidine (Verified Allergy, Unknown, 07/28/14) pentazocine (Verified Allergy, Unknown, 07/28/14) codeine (Verified Adverse Reaction, Mild, NAUSEA, 07/28/14) morphine (Verified Adverse Reaction, Mild, NAUSEA, 07/28/14) Home Medications Acetaminophen/Diphenhydramine 1 Ea Tab, 2 TAB PO HS, (Reported) Alendronate Sodium 70 Mg Tablet, 70 MG PO WEEKLY ON THU, (Reported) Aspirin 81 Mg Tabec, 81 MG PO DAILY, (Reported) Cholecalciferol (Vitamin D3) 2,000 Unit Capsule, 2,000 UNIT PO DAILY, (Reported) Ciprofloxacin HCl 500 Mg Tablet, 500 MG PO BID, (Reported) Cyclobenzaprine HCl 5 Mg Tablet, 5 MG PO TID, (Reported) Diclofenac Sodium 100 Gm Gel..gram., 100 GM TP, (Reported) Docusate Sodium 100 Mg Tablet, 100 MG PO HS, (Reported) Hydrochlorothiazide 25 Mg Tablet, 25 MG PO DAILY, (Reported) Levothyroxine Sodium 100 Mcg Tablet, 100 MCG PO DAILY, (Reported) Losartan Potassium 25 Mg Tablet, 25 MG PO DAILY, (Reported) Memantine Hcl 10 Mg Tablet, 10 MG PO BID, (Reported) Metoprolol Succinate 100 Mg Tab.sr.24h, 100 MG PO DAILY, (Reported) Multivitamins 1 Ea Tablet, 1 TAB PO DAILY, (Reported) Oxybutynin Chloride 10 Mg Tab.er.24, 10 MG PO DAILY, (Reported) Potassium Chloride 10 Meq Capsule.sa, 10 MEQ PO DAILY, (Reported) Prednisone 20 Mg Tablet, 20 MG PO DAILY, #10 Prescribed by: ANA LOMBARDI on 08/03/14821 Tramadol HCl 50 Mg Tablet, 50 MG PO Q6H PRN for PAIN, #20 Prescribed by: SERAFIN LAWSON on 04/07/162015 Warfarin Sodium 2 Mg Tablet, 2 MG PO DAILY, #30 Prescribed by: PRUDENCE TUBBS on 08/03/144 [Pantoprazole Sodium] 20 MG TABLET.DR, 20 MG PO DAILY@1300, #30 Prescribed by: ANA LOMBARDI on 08/03/14821 Constitutional: see HPI, weakness EENTM: see HPI Respiratory: see HPI, short of breath (only on exertion) Cardiovascular: no symptoms reported Gastrointestinal: No abdominal pain, No constipation, No diarrhea, No dysphagia Genitourinary: no symptoms reported Musculoskeletal: no symptoms reported Skin: no symptoms reported Psychiatric/Neurological: No Symptoms Reported Hematologic/Lymphatic: No Symptoms Reported Immunological/Allergic: no symptoms reported Past Twjoktz-Ubgmys-Mweubu Hx Patient Social History Former Smoker, Quit: Apr 07, 1950 Recent Foreign Travel: No Contact w/Someone Who Travel: No Recent Infectious Disease Expo: No Immunizations Up To Date Tetanus Booster (TDap): Unknown PED Vaccines UTD: No Date of Pneumonia Vaccine: Jul 17, 2009 Date of Influenza Vaccine: Apr 17, 2014 Surgeries Surgeries: Adenoidectomy, Appendectomy, Bladder Surgery, Eye Surgery, Gallbladder, Hysterectomy, Lumpectomy, Orthopedic, Thyroidectomy, Tonsillectomy Cardiovascular Cardiac Disorders: Heart Attack, High Cholesterol, Hypertension Neurological Neurological Disorders: Dementia Reproductive System Hx Reproductive Disorders: No Gastrointestinal Gastrointestinal Disorders: Gall Bladder Disease Musculoskeletal Musculoskeletal Disorders: Arthritis, Fractures Endocrine Endocrine Disorders: Hypothyroidsim HEENT HEENT Disorders: Cataract, Double Vision Cancer Cancer: Breast Blood Transfusions Adverse Reaction to a Blood Tr: No Family Medical History Family Medial History: FH: breast cancer 19 MOTHER AUNT AUNT AUNT DAUGHTER FH: cancer of GI tract G8 BROTHER FH: lung cancer 19 FATHER G8 BROTHER Myocardial infarction G8 BROTHER G8 BROTHER G8 BROTHER Physical Exam Vital Signs Vital Sign - Last 12Hours 05/12/17 17:56 Temp 98.6 Pulse 98 Resp 20 B/P (MAP) 105/71 Pulse Ox 93 O2 Delivery Room Air Capillary Refill : Less Than 3 Seconds General Appearance: No Apparent Distress, WD/WN Eyes: Bilateral Eye Normal Inspection, Bilateral Eye PERRL, Bilateral Eye EOMI HEENT: PERRL/EOMI, TMs Normal Neck: Full Range of Motion, Normal Inspection Respiratory: Normal Breath Sounds, No Accessory Muscle Use, No Respiratory Distress Cardiovascular: Regular Rate, Rhythm, Normal Peripheral Pulses Gastrointestinal: Normal Bowel Sounds, Non Tender, Soft Extremity: Normal Capillary Refill, No Calf Tenderness Neurologic/Psychiatric: Alert, Oriented x3 Skin: Normal Color, Warm/Dry Progress/Results/Core Measures Results/Orders Lab Results Laboratory Tests Test 05/12/17 18:30 05/12/17 19:57 Range/Units White Blood Count 8.5 4.3-11.0 10^3/uL Red Blood Count 4.43 4.35-5.85 10^6/uL Hemoglobin 12.4 11.5-16.0 G/DL Hematocrit 38 35-52 % Mean Corpuscular Volume 86 80-99 FL Mean Corpuscular Hemoglobin 28 25-34 PG Mean Corpuscular Hemoglobin Concent 33 32-36 G/DL Red Cell Distribution Width 14.9 H 10.0-14.5 % Platelet Count 209 130-400 10^3/uL Mean Platelet Volume 9.2 7.4-10.4 FL Neutrophils (%) (Auto) 80 H 42-75 % Lymphocytes (%) (Auto) 9 L 12-44 % Monocytes (%) (Auto) 10 0-12 % Eosinophils (%) (Auto) 1 0-10 % Basophils (%) (Auto) 0 0-10 % Neutrophils # (Auto) 6.8 1.8-7.8 X 10^3 Lymphocytes # (Auto) 0.8 L 1.0-4.0 X 10^3 Monocytes # (Auto) 0.8 0.0-1.0 X 10^3 Eosinophils # (Auto) 0.1 0.0-0.3 10^3/uL Basophils # (Auto) 0.0 0.0-0.1 10^3/uL Sodium Level 133 L 135-145 MMOL/L Potassium Level 3.0 L 3.6-5.0 MMOL/L Chloride Level 96 L 98-107 MMOL/L Carbon Dioxide Level 25 21-32 MMOL/L Anion Gap 12 5-14 MMOL/L Blood Urea Nitrogen 14 7-18 MG/DL Creatinine 0.64 0.60-1.30 MG/DL Estimat Glomerular Filtration Rate > 60 BUN/Creatinine Ratio 22 Glucose Level 109 H 70-105 MG/DL Calcium Level 8.0 L 8.5-10.1 MG/DL Total Bilirubin 0.4 0.1-1.0 MG/DL Aspartate Amino Transf (AST/SGOT) 28 5-34 U/L Alanine Aminotransferase (ALT/SGPT) 22 0-55 U/L Alkaline Phosphatase 115 40-136 U/L Troponin I < 0.30 <0.30 NG/ML B-Type Natriuretic Peptide 99.7 <100.0 PG/ML Total Protein 5.8 L 6.4-8.2 GM/DL Albumin 3.2 3.2-4.5 GM/DL Thyroid Stimulating Hormone (TSH) 0.28 L 0.35-4.94 UIU/ML Free Thyroxine 1.47 0.70-1.48 NG/DL Urine Color KORY H Urine Clarity SLIGHTLY CLOUDY Urine pH 6 5-9 Urine Specific [place] 1.015 L 1.016-1.022 Urine Protein 2+ H NEGATIVE Urine Glucose (UA) NEGATIVE NEGATIVE Urine Ketones 3+ H NEGATIVE Urine Nitrite NEGATIVE NEGATIVE Urine Bilirubin NEGATIVE NEGATIVE Urine Urobilinogen 4 H NORMAL MG/DL Urine Leukocyte Esterase 3+ H NEGATIVE Urine RBC (Auto) 1+ H NEGATIVE Urine RBC 0-2 /HPF Urine WBC 10-25 H /HPF Urine Squamous Epithelial Cells 5-10 /HPF Urine Crystals NONE /LPF Urine Bacteria FEW H /HPF Urine Casts NONE /LPF Urine Mucus SMALL H /LPF Urine Culture Indicated YES My Orders Orders - CIRILO SHAH APRN Cbc With Automated Diff (05/12/17 18:07) Comprehensive Metabolic Panel (05/12/17 18:07) Ua Culture If Indicated (05/12/17 18:07) Troponin I (05/12/17 18:07) Ekg Tracing (05/12/17 18:07) Chest 1 View, Ap/Pa Only (05/12/17 18:07) Saline Lock/Iv-Start (05/12/17 18:07) BNP (05/12/17 18:07) Ondansetron Injection (Zofran Injectio (05/12/17 18:45) Ns Iv 1000 Ml (Sodium Chloride 0.9%) (05/12/17 18:45) Thyroid Stimulating Hormone (05/12/17 18:42) Free T4 (Free Thyroxine) (05/12/17 18:42) Potassium Chloride Powder (Klor Con 20 M (05/12/17 19:00) Stool Culture (05/12/17 19:58) Parasite Scrn Stool Giard Cryp (05/12/17 19:58) C Difficile Ag + Toxin A/B. (05/12/17 19:58) Protime With Inr (05/12/17 20:02) Urine Culture (05/12/17 19:57) Medications Given in ED Current Medications Medications Dose Ordered Sig/Melissa Route Start Time Stop Time Status Last Admin Dose Admin Ondansetron HCl 4 mg ONCE ONCE IVP 05/12/17 18:45 05/12/17 18:46 DC 05/12/17 18:49 4 MG Vital Signs/I&O Vital Sign - Last 12Hours 05/12/17 17:56 Temp 98.6 Pulse 98 Resp 20 B/P (MAP) 105/71 Pulse Ox 93 O2 Delivery Room Air Blood Pressure Mean: 82 Diagnostic Imaging Diagonstic Imaging: Xray Comments NAME: MELO CAMERONMOOSE Peña MED REC#: [id number] PT STATUS: REG ER : 1930 PHYSICIAN: CIRILO SHAH APPLICATION SUPPORT ANALYST ADMIT DATE: 05/12/17/ER Draft Date of Exam:05/12/17 CHEST 1 VIEW, AP/PA ONLY CLINICAL INDICATION: Patient with weakness and shortness of air. Exam: Portable chest x-ray upright view. Comparisons: Chest x-ray dated 10/06/2016. Findings: Stable atelectasis versus scarring in the right upper lobe. Stable minimal atelectasis versus scarring in the periphery of the left lung. Otherwise, lungs are clear. Stable elevation of the right hemidiaphragm. There is no pleural effusion or pneumothorax. Cardiac silhouette is upper limits of normal. Pulmonary vasculature is within normal limits. Stable postop changes to the chest with sternotomy wires and mediastinal clips. Incompletely imaged IVC filter is noted. IMPRESSION: 1: Overall stable chest x-ray exam with no interval acute cardiopulmonary process. Dictated on workstation # [id number] Dict: 05/12/17 1833 Trans: 05/12/17 1839 [id number] Interpreted by: FRANCHESCA DE LA FUENTE MD Electronically signed by: Departure Communication (Admissions) Time/Spoke to Admitting Phy: 20:59 Communication I did discuss the case with Dr. Anaya. We will admit the patient observation status, Rocephin, await stool for C. difficile results. Impression Impression: Primary Impression: Urinary tract infection Additional Impressions: General weakness Hypokalemia Disposition: 01 HOME, SELF-CARE Condition: Stable Admissions Decision to Admit Reason: Admit from ER (General) Decision to Admit/Date: May 12, 2017 Time/Decision to Admit Time: 20:58 Departure-Patient Inst. Referrals: MALLORIE ANAYA MD (PCP/Family) Primary Care Physician CIRILO SHAH APRN May 12, 2017 18:20
--- NOTE | 2017-05-12 18:39 | Diagnostic Imaging Report ---
CLINICAL INDICATION: Patient with weakness and shortness of air. Exam: Portable chest x-ray upright view. Comparisons: Chest x-ray dated 10/06/2016. Findings: Stable atelectasis versus scarring in the right upper lobe. Stable minimal atelectasis versus scarring in the periphery of the left lung. Otherwise, lungs are clear. Stable elevation of the right hemidiaphragm. There is no pleural effusion or pneumothorax. Cardiac silhouette is upper limits of normal. Pulmonary vasculature is within normal limits. Stable postop changes to the chest with sternotomy wires and mediastinal clips. Incompletely imaged IVC filter is noted. IMPRESSION: 1: Overall stable chest x-ray exam with no interval acute cardiopulmonary process. Dictated by: Dictated on workstation # [id number]
[2017-05-12 18:40] LABS: BASOPHILS % (AUTO) 0 % (0-10); EOSINOPHILS # (AUTO) 0.1 10^3/uL (0.0-0.3); EOSINOPHILS % (AUTO) 1 % (0-10); LYMPHOCYTES # (AUTO) 0.8 X 10^3 (1.0-4.0); LYMPHOCYTES % (AUTO) 9 % (12-44); MEAN CORPUSCULAR HEMOGLOBIN 28 PG (25-34); MEAN CORPUSCULAR HGB CONC 33 G/DL (32-36); MEAN CORPUSCULAR VOLUME 86 FL (80-99); MEAN PLATELET VOLUME 9.2 FL (7.4-10.4); MONOCYTES # (AUTO) 0.8 X 10^3 (0.0-1.0); MONOCYTES % (AUTO) 10 % (0-12); NEUTROPHILS # (AUTO) 6.8 X 10^3 (1.8-7.8); NEUTROPHILS % (AUTO) 80 % (42-75); PLATELET COUNT 209 10^3/uL (130-400); RED BLOOD COUNT 4.43 10^6/uL (4.35-5.85); RED CELL DISTRIBUTION WIDTH 14.9 % (10.0-14.5); WHITE BLOOD COUNT 8.5 10^3/uL (4.3-11.0)
[2017-05-12] MEDS ORDERED: ONDANSETRON 4 MG/2 ML (SDV) Z0FRAN IVP ONE (18:45)
[2017-05-12] MEDS ORDERED: NS IV 1000 ML 1,000 ML IV SCH (18:45)
[2017-05-12 18:56] LABS: ALANINE AMINOTRANSFERASE 22 U/L (0-55); ALBUMIN 3.2 GM/DL (3.2-4.5); ANION GAP 12 MMOL/L (5-14); ASPARTATE AMINO TRANSFERASE 28 U/L (5-34); BILIRUBIN,TOTAL 0.4 MG/DL (0.1-1.0); BLOOD UREA NITROGEN 14 MG/DL (7-18); BUN/CREATININE RATIO 22; CARBON DIOXIDE 25 MMOL/L (21-32); CHLORIDE 96 MMOL/L (98-107); CREATININE SERUM 0.64 MG/DL (0.60-1.30); GFR ESTIMATED > 60; GLUCOSE 109 MG/DL (70-105); SODIUM 133 MMOL/L (135-145); TOTAL PROTEIN 5.8 GM/DL (6.4-8.2)
[2017-05-12] MEDS ORDERED: KCL 20 MEQ POWDER FOR ORAL SOLUTION PO ONE (19:00)
[2017-05-12 19:05] LABS: TROPONIN I < 0.30 NG/ML (<0.30)
[2017-05-12 19:22] LABS: THYROID STIMULATING HORMONE 0.28 UIU/ML (0.35-4.94)
[2017-05-12 20:16] LABS: BILIRUBIN,URINE NEGATIVE (NEGATIVE); KETONES,URINE 3+ (NEGATIVE); LEUKOCYTE ESTERASE ,URINE 3+ (NEGATIVE); NITRITE,URINE NEGATIVE (NEGATIVE); PH,URINE 6 (5-9); PROTEIN,URINE 2+ (NEGATIVE); UROBILINOGEN,URINE 4 MG/DL (NORMAL)
[2017-05-12 21:30] VITALS: BP 137/77
[2017-05-12] MEDS ORDERED: NS (IVPB) 50 ML ONE (23:05)
[2017-05-12] MEDS ORDERED: cefTRIAXone 1 GM (ROCEPHIN) VIAL ONE (23:05)
[2017-05-13] VITALS (8 sets, daily range): BP systolic 106–134; BP diastolic 54–67
[2017-05-13 00:20] LABS: PROTHROMBIN TIME PATIENT > 100.0 SEC (12.2-14.7)
[2017-05-13] MEDS: NS W/KCL 20 MEQ/L 1,000 ML IV SCH ×4 (00:42→23:16)
[2017-05-13 06:16] LABS: PROTHROMBIN TIME PATIENT > 100.0 SEC (12.2-14.7)
[2017-05-13 06:18] LABS: ANION GAP 10 MMOL/L (5-14); BLOOD UREA NITROGEN 10 MG/DL (7-18); BUN/CREATININE RATIO 18; CALCIUM 7.2 MG/DL (8.5-10.1); CARBON DIOXIDE 23 MMOL/L (21-32); CHLORIDE 102 MMOL/L (98-107); CREATININE SERUM 0.57 MG/DL (0.60-1.30); GFR ESTIMATED > 60; GLUCOSE 86 MG/DL (70-105); POTASSIUM 3.4 MMOL/L (3.6-5.0); SODIUM 135 MMOL/L (135-145)
[2017-05-13] MEDS ORDERED: CHOLESTYRAMINE 4 GM (QUESTRAN LITE, PREVALITE) PKT ONE (06:22)
[2017-05-13] MEDS ORDERED: CHOLESTYRAMINE 4 GM (QUESTRAN LITE, PREVALITE) PKT PO NR ×2 (06:28→12:00)
[2017-05-13] MEDS: fentaNYL INJECTION 100 MCG/2 ML AMP IVP PRN ×4 (06:45→16:40)
--- NOTE | 2017-05-13 08:41 | History & Physicial ---
History of Present Illness History of Present Illness Reason for visit/HPI PT WAS ADMITTED TO THE HOSPITAL WITH UNCONTROLLED PAIN, CONFUSION, WEAKNESS, UNCONTROLLED BACK PAIN, POSSIBLE UTI. PT HAD FALLEN AT HOME, FELL ON HER LEFT SHOULDER AND HAS HAD PERSISTENT PAIN SINCE THAT TIME. AFTER ADMISSION THROUGHT THE er IT WAS FOUND THAT HER INR WAS UNABLE TO BE CALCULATED DUE TO ELEVATED PTT Date of Admission May 12, 2017 at 20:57 Date Seen by Provider: May 13, 2017 Time Seen by Provider: 08:40 I consulted on this patient on 05/13/17 08:40 Attending Physician Mallorie Anaya MD Admitting Physician Mallorie Anaya MD Consult Allergies and Home Medications Allergies Coded Allergies: meperidine (Verified Allergy, Unknown, 07/28/14) pentazocine (Verified Allergy, Unknown, 07/28/14) codeine (Verified Adverse Reaction, Mild, NAUSEA, 07/28/14) morphine (Verified Adverse Reaction, Mild, NAUSEA, 07/28/14) Home Medications Alendronate Sodium 70 Mg Tablet, 70 MG PO We, (Reported) Aspirin 81 Mg Tablet.dr, 81 MG PO MoFr, (Reported) Cholecalciferol (Vitamin D3) 2,000 Unit Capsule, 2,000 UNIT PO DAILY, (Reported) Cyanocobalamin (Vitamin B-12) 500 Mcg Tablet, 500 MCG PO DAILY, (Reported) Diclofenac Sodium 100 Gm Gel..gram., TP DAILY PRN for BACK PAIN, (Reported) Docusate Sodium 100 Mg Capsule, 100 MG PO HS, (Reported) Hydrochlorothiazide 25 Mg Tablet, 25 MG PO DAILY, (Reported) L. Acidophilus/Bulgaricus 1 Each Tab.chew, 1 TAB.CHEW PO 1500, (Reported) Levothyroxine Sodium 137 Mcg Tablet, 137 MCG PO DAILY, (Reported) Losartan Potassium 25 Mg Tablet, 25 MG PO DAILY, (Reported) Memantine HCl 10 Mg Tablet, 10 MG PO BID, (Reported) Metoprolol Succinate 100 Mg Tab.er.24h, 100 MG PO DAILY, (Reported) Mirabegron 50 Mg Tab.er.24h, 50 MG PO DAILY, (Reported) Multivit-Minerals/Folic Acid 80 Mcg Tab.chew, 2 TAB.CHEW PO DAILY, (Reported) Polyethylene Glycol 3350 17 Gm Powd.pack, 17 GM PO Q72H, (Reported) Potassium Chloride 10 Meq Capsule.er, 10 MEQ PO DAILY, (Reported) Pravastatin Sodium 10 Mg Tablet, 10 MG PO DAILY, (Reported) Vit C/E/Zn/Coppr/Lutein/Zeaxan 1 Each Capsule, 1 CAP PO BID, (Reported) Warfarin Sodium 2 Mg Tablet, 4 MG PO 2100, (Reported) TAKES 2 (2MG) TABLETS [Slow Iron] , 45 MG PO MoThSa, (Reported) 45MG ELEMENTAL IRON Past Jwwaozz-Tnuiyz-Hdvrpx Hx Patient Social History Marrital Status: Living Status: LIVES AT HOME BY HERSELF Employed/Student: retired Alcohol Use: Occasionally Uses Alcohol Beverage of Choice: Wine Recreational Drug Use: No Smoking Status: Former Smoker Former Smoker, Quit: December 15, 1948 Type Used: Cigarettes 2nd Hand Smoke Exposure: No Physical Abuse Screen: No Sexual Abuse: No Recent Foreign Travel: No Contact w/other who traveled: No Recent Hopitalizations: No Recent Infectious Disease Expo: No Immunizations Up To Date Tetanus Booster (TDap): Unknown Pediatric: No Date of Pneumonia Vaccine: Jul 17, 2009 Date of Influenza Vaccine: Apr 17, 2014 Seasonal Allergies Seasonal Allergies: No Surgeries Yes (D&C, MASTECTOMY, hernia) Adenoidectomy, Appendectomy, Bladder Surgery, Cardiac, Eye Surgery, Gallbladder , Hysterectomy, Lumpectomy, Orthopedic, Thyroidectomy, Tonsillectomy Respiratory No Currently Using CPAP: No Cardiovascular Yes (HEART VALVE REPLACEMENT FEBRUARY 2014 ) Heart Attack, High Cholesterol, Hypertension Neurological No (daughter wonders about first stage of Alhemzier) Dementia Reproductive System : No Hx Reproductive Disorders: No Sexually Transmitted Disease: No HIV/AIDS: No Female Reproductive Disorders: Denies Genitourinary UTI-Chronic Gastrointestinal Yes Chronic Diarrhea, Gall Bladder Disease Musculoskeletal Yes (TOTAL KNEE X2, HX LEFT COLLARBONE FX ) Arthritis, Chronic Back Pain, Fractures Endocrine History of Endocrine Disorders: Yes (THYROIDECTOMY FOR GOITER) Endocrine Disorders: Hypothyroidsim HEENT History of HEENT Disorders: Yes HEENT Disorders: Cataract, Double Vision Hearing Impairment: Hard of Hearing Cancer Yes (HX OF BREAST CA ) Breast Did You Recieve Any Treatments: No Type of Treatment: Surgical Intervention Psychosocial History of Psychiatric Problem: No Integumentary History of Skin or Integumenta: No Blood Transfusions History of Blood Disorders: Yes (BLOOD CLOTS) Adverse Reaction to a Blood Tr: No Reviewed Nursing Assessment Reviewed/Agree w Nursing PMH: Yes Family Medical History Significant Family History: Heart Disease, Cancer, Hypertension Family Hx: FH: breast cancer 19 MOTHER AUNT AUNT AUNT DAUGHTER FH: cancer of GI tract G8 BROTHER FH: lung cancer 19 FATHER G8 BROTHER Myocardial infarction G8 BROTHER G8 BROTHER G8 BROTHER Constitutional: fever, malaise, weakness EENTM: No hoarseness, No throat pain Respiratory: No cough, No dyspnea on exertion, No short of breath Gastrointestinal: No abdominal pain Genitourinary: frequency Musculoskeletal: muscle weakness Skin: no symptoms reported, No rash Psychiatric/Neurological: Denies Anxiety, Denies Depressed All Other Systems Reviewed Negative Unless Noted: Yes Physical Exam Vital Signs Vital Sign - Last 12Hours 05/12/17 05/13/17 17:56 00:35 Temp 98.6 Pulse 98 Resp 20 B/P (MAP) 105/71 Pulse Ox 93 O2 Delivery Room Air O2 Flow Rate 2.00 Capillary Refill : Less Than 3 Seconds General Appearance: No Apparent Distress, WD/WN Eyes: Bilateral Eye Normal Inspection HEENT: PERRL/EOMI, Pharynx Normal Neck: Full Range of Motion, Supple Respiratory: Chest Non Tender, Lungs Clear, Normal Breath Sounds, No Accessory Muscle Use Cardiovascular: Regular Rate, Rhythm, Systolic Murmur Gastrointestinal: Normal Bowel Sounds, No Organomegaly, Non Tender, Soft Rectal: Deferred Extremity: No Pedal Edema Neurologic/Psychiatric: Alert, Depressed Affect, Other (ORIENTED BUT SLEEPY, APPEARS UNCOMFORTABLE) Skin: Warm/Dry, Ecchymosis Lymphatic: No Adenopathy Assessment/Plan Assessment and Plan SUPRA-THERAPEUTIC INR - UNABLE TO CALCULATE CHRONIC ANTICOAGULATION URINARY TRACT INFECTION BACK PAIN GENERALIZED WEAKNESS/MALAISE RECENT FALL AT HOME DEMENTIA HYPERTENSION SUPRA-THERAPEUTIC INR - UNABLE TO CALCULATE- VITAMIN K TO BE GIVEN IV THIS MORNING. 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 URINARY TRACT INFECTION - ON ANTIBIOTICS. BACK PAIN - VOLTAREN GEL, IV PAIN MEDICATION. GENERALIZED WEAKNESS/MALAISE - WAITING ON THERAPY UNTIL PATIENT BETTER. 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 Problems: Admission Diagnosis DEMENTIA HYPERTENSION Clinical Quality Measures DVT/VTE Risk/Contraindication: Risk Factor Score Per Nursin RFS Level Per Nursing on Admit: 4+=Very High MALLORIE ANAYA MD May 13, 2017 08:41
[2017-05-13] MEDS ORDERED: PHYTONADIONE IV NR (09:15)
[2017-05-13] MEDS ORDERED: NS IV NR (09:15)
[2017-05-13] MEDS: DICLOFENAC 1% GEL 100 GM (VOLTAREN) TUBE TOP SCH ×4 (09:36→20:16)
[2017-05-13] MEDS: DRONABINOL 2.5 MG (MARINOL) CAP PO SCH ×2 (10:13→16:40)
--- NOTE | 2017-05-13 10:52 | Diagnostic Imaging Report ---
Three views of the lumbar spine. INDICATION: Severe low back pain. FINDINGS: There is minimal left convexity scoliosis of the lumbar spine. The alignment of the posterior spinal line is satisfactory. The vertebral body heights appear preserved. There is moderate disc height loss at L5/S1 level and mild disc height loss at L4/L5. Multilevel mild anterior osteophyte seen. No significant posterior osteophytes is noted. There is an IVC filter centered around L2 level. IMPRESSION: Degenerative changes. Mild left convexity scoliosis. Dictated by: Dictated on workstation # [id number]
[2017-05-13] MEDS ORDERED: HYDR25TA4 PO (11:18)
[2017-05-13] MEDS ORDERED: PRAV10TA PO (11:18)
[2017-05-13] MEDS ORDERED: MIRA50TA PO (11:18)
[2017-05-13] MEDS ORDERED: METO-395 PO (11:18)
[2017-05-13] MEDS ORDERED: MULT1TAB69 PO (11:18)
[2017-05-13] MEDS ORDERED: LEVO137T2 PO (11:18)
[2017-05-13] MEDS ORDERED: ASPI-983 PO (11:18)
[2017-05-13] MEDS ORDERED: ALEN70TA47 PO (11:18)
[2017-05-13] MEDS ORDERED: MEMA10TA22 PO (11:18)
[2017-05-13] MEDS ORDERED: ACET-2469 PO (11:18)
[2017-05-13] MEDS ORDERED: POTA10CA43 PO (11:18)
[2017-05-13] MEDS ORDERED: VIT1CAPS44 PO (11:31)
[2017-05-13] MEDS ORDERED: SLOW IRON PO (11:31)
[2017-05-13] MEDS ORDERED: MULT80TA PO (11:31)
[2017-05-13] MEDS ORDERED: CHOL20002 PO (11:31)
[2017-05-13] MEDS ORDERED: CYAN500T2 PO (11:31)
[2017-05-13] MEDS ORDERED: DOCU-143 PO (11:31)
[2017-05-13] MEDS ORDERED: POLY17PO6 PO (11:31)
[2017-05-13] MEDS ORDERED: WARF2TAB PO (11:31)
[2017-05-13] MEDS ORDERED: ACID1TAB5 PO (11:47)
--- NOTE | 2017-05-13 15:23 | Diagnostic Imaging Report ---
PROCEDURE: CT lumbar spine without contrast. TECHNIQUE: Multiple contiguous axial images were obtained through the lumbar spine without the use of intravenous contrast. Sagittal and coronal reformations were then performed. INDICATION: Increased low back pain. FINDINGS: The alignment of the posterior spinal line and facet joints is satisfactory. The vertebral body heights are preserved. There is no compression fracture. No pars defect or fracture is seen. There is mild disc height loss at the L5-S1 level. The other discs demonstrate preserved height with minimal anterior osteophytes at multiple levels. Minimal posterior osteophyte formation at L4-5 and L5-S1 is seen. There is significant facet arthropathy, worst at the L4-5 level and moderate to severe at L3-4. At these two levels, there is suggestion of significant spinal canal stenosis from the disc and facet changes, worse at L4-5. The neural foramina demonstrate a moderate stenosis at L3-4 on the right and moderate to severe stenosis on the left at this level. Bilateral moderate stenosis at the L4-5 and L5-S1 foramina is seen. There is also bilateral moderate foraminal stenosis at the L1-2 and L2-3 levels. An IVC filter is seen. IMPRESSION: 1. No fracture is seen. 2. There are advanced disc and facet degenerative changes with suggestion of significant underlying spinal canal stenosis at L4-5 and L3-4 and multilevel neuroforaminal stenosis. These could be better evaluated with an MRI of the lumbar spine, if needed. Dictated by: Dictated on workstation # [id number]
[2017-05-13 16:06] LABS: INR 2.4 (0.8-1.4); PROTHROMBIN TIME PATIENT 25.7 SEC (12.2-14.7)
[2017-05-13] MEDS ORDERED: cefTRIAXone INJECTION 1,000 MG in NS (IVPB) 50 ML IV SCH (21:00)
[2017-05-14] VITALS: BP 110/60
[2017-05-14] MEDS: NS W/KCL 20 MEQ/L 1,000 ML IV SCH ×3 (04:51→22:25)
[2017-05-14 07:22] LABS: RED BLOOD COUNT 3.83 10^6/uL (4.35-5.85); RED CELL DISTRIBUTION WIDTH 14.9 % (10.0-14.5)
[2017-05-14 07:45] LABS: ALANINE AMINOTRANSFERASE 16 U/L (0-55); ALBUMIN 2.6 GM/DL (3.2-4.5); ANION GAP 9 MMOL/L (5-14); ASPARTATE AMINO TRANSFERASE 18 U/L (5-34); BILIRUBIN,TOTAL 0.3 MG/DL (0.1-1.0); BLOOD UREA NITROGEN 6 MG/DL (7-18); BUN/CREATININE RATIO 11; CALCIUM 7.6 MG/DL (8.5-10.1); CARBON DIOXIDE 22 MMOL/L (21-32); CHLORIDE 108 MMOL/L (98-107); CREATININE SERUM 0.53 MG/DL (0.60-1.30); GFR ESTIMATED > 60; GLUCOSE 94 MG/DL (70-105); INR 1.6 (0.8-1.4); MAGNESIUM 1.5 MG/DL (1.8-2.4); POTASSIUM 3.5 MMOL/L (3.6-5.0); PROTHROMBIN TIME PATIENT 18.7 SEC (12.2-14.7); SODIUM 139 MMOL/L (135-145); TOTAL PROTEIN 4.7 GM/DL (6.4-8.2)
[2017-05-14 08:00] VITALS: BP 114/55
[2017-05-14] MEDS: DICLOFENAC 1% GEL 100 GM (VOLTAREN) TUBE TOP SCH ×2 (08:17→13:30)
[2017-05-14] MEDS: fentaNYL INJECTION 100 MCG/2 ML AMP IVP PRN (08:25)
--- NOTE | 2017-05-14 09:15 | Progress Note (SOAP) ---
Subjective Date Seen by Provider: May 15, 2017 Time Seen by Provider: 09:15 Subjective/Events-last exam PT REPORTS THAT SHE IS FEELING A LITTLE BIT BETTER TODAY. HER DAUGHTER NOTES THAT HER APPETITE IS STILL NOT GREAT BUT SHE HAS BEEN HAVING BETTER INTAKE. SHE STATES THAT HER MOM HAS BEEN HAVING A BETTER MOOD. FERNANDA ALSO REPORTS SLIGHTLY IMPROVED BACK PAIN. Review of Systems General: No Chills HEENT: No Head Aches Pulmonary: Dyspnea, Cough Cardiovascular: No: Chest Pain, Palpitations Gastrointestinal: Abdominal Pain, No: Nausea Genitourinary: No Dysuria Neurological: Weakness, No: Confusion Objective Exam Vital Signs Date Time Temp Pulse Resp B/P (MAP) Pulse Ox O2 Delivery O2 Flow Rate FiO2 05/14/17 08:00 97.2 85 16 114/55 95 Nasal Cannula 2.00 05/14/17 00:00 96.6 89 16 110/60 96 Nasal Cannula 2.00 05/13/17 21:00 Nasal Cannula 2.00 05/13/17 19:26 98.7 94 18 111/64 97 Nasal Cannula 2.00 05/13/17 16:00 97.5 93 20 122/67 97 Nasal Cannula 2.00 05/13/17 11:30 97.6 89 18 134/66 96 Nasal Cannula 2.00 Capillary Refill : Less Than 3 Seconds General Appearance: WD/WN HEENT: PERRL/EOMI Neck: Supple Respiratory: Chest Non Tender, Lungs Clear, Normal Breath Sounds Cardiovascular: Regular Rate, Rhythm, Systolic Murmur Gastrointestinal: normal bowel sounds, soft Neurologic/Psychiatric: Alert, Oriented x3, Normal Mood/Affect Skin: Warm/Dry Results Lab Laboratory Tests 05/13/17 15:50: Prothrombin Time 25.7H, INR Comment 2.4H 05/14/17 07:12: Prothrombin Time 18.7H, INR Comment 1.6H, White Blood Count 5.0, Red Blood Count 3.83L, Hemoglobin 10.6L, Hematocrit 33L, Mean Corpuscular Volume 87, Mean Corpuscular Hemoglobin 28, Mean Corpuscular Hemoglobin Concent 32, Red Cell Distribution Width 14.9H, Platelet Count 181, Mean Platelet Volume 9.0, Sodium Level 139, Potassium Level 3.5L, Chloride Level 108H, Carbon Dioxide Level 22, Anion Gap 9, Blood Urea Nitrogen 6L, Creatinine 0.53L, Estimat Glomerular Filtration Rate > 60, BUN/Creatinine Ratio 11, Glucose Level 94, Calcium Level 7.6L, Magnesium Level 1.5L, Total Bilirubin 0.3, Aspartate Amino Transf (AST/ SGOT) 18, Alanine Aminotransferase (ALT/SGPT) 16, Alkaline Phosphatase 85, Total Protein 4.7L, Albumin 2.6L Microbiology 05/12/17 Urine Culture - Preliminary, Resulted Assessment/Plan Assessment/Plan Assess & Plan/Chief Complaint DEMENTIA HYPERTENSION SUPRA-THERAPEUTIC INR - RESOLVED AFTER VITAMIN K - LOVENOX STARTED YESTERDAY. 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 BACK PAIN - VOLTAREN GEL, IV PAIN MEDICATION. GENERALIZED WEAKNESS/MALAISE - START THERAPY TODAY. RECENT FALL AT HOME - WILL NEED PT FOR GAIT TRAINING DEMENTIA - STABLE HYPERTENSION- CHRONIC - RESTARTED HOME MEDICATIONS. Clinical Quality Measures DVT/VTE Risk/Contraindication: Risk Factor Score Per Nursin RFS Level Per Nursing on Admit: 4+=Very High MALLORIE CONTRERAS MD May 14, 2017 09:15
[2017-05-14] MEDS: MAGNESIUM 1 GM/100 ML IVPB 100 ML IV SCH ×2 (09:27→10:47)
[2017-05-14] MEDS ORDERED: ENOXAPARIN 80 MG/0.8 ML (LOVENOX) SYR SC SCH (09:30)
[2017-05-14] MEDS ORDERED: GABAPENTIN 100 MG (NEURONTIN) CAP PO NR (09:45)
[2017-05-14] MEDS: DRONABINOL 2.5 MG (MARINOL) CAP PO SCH ×2 (10:51→16:00)
[2017-05-14] MEDS: POLYETHYLENE GLYCOL 17 GM (MIRALAX) PACK PO SCH (10:53)
[2017-05-14] MEDS: ONDANSETRON 4 MG/2 ML (SDV) Z0FRAN IVP PRN (13:24)
[2017-05-14] MEDS: DICLOFENAC 1% GEL 100 GM (VOLTAREN) TUBE TP SCH ×3 (13:31→20:17)
[2017-05-14 16:00] VITALS: BP 120/58
[2017-05-14 17:35] LABS: BILIRUBIN,URINE NEGATIVE (NEGATIVE); KETONES,URINE NEGATIVE (NEGATIVE); LEUKOCYTE ESTERASE ,URINE 1+ (NEGATIVE); NITRITE,URINE NEGATIVE (NEGATIVE); PH,URINE 6 (5-9); PROTEIN,URINE NEGATIVE (NEGATIVE); UROBILINOGEN,URINE NORMAL (NORMAL)
--- NOTE | 2017-05-14 17:44 | Diagnostic Imaging Report ---
INDICATION: Febrile. COMPARISON: 05/12/2017. FINDINGS: Linear density again noted in right upper lung, unchanged with some volume loss. No acute infiltrates have occurred. There is obstructive pulmonary disease with flattening of the left hemidiaphragm. Chronic interstitial changes are present. The heart is upper limits of normal. Median sternotomy changes are noted. No evidence of pulmonary edema. No pleural effusions. IMPRESSION: 1. Obstructive interstitial lung disease with no acute infiltrates demonstrated. 2. Linear scarring and volume loss in the right upper lung, unchanged. Dictated by: Dictated on workstation # [id number]
[2017-05-14] MEDS ORDERED: PIPERACILLIN SODIUM/TAZOBACTAM 4.5 GM in NS (IVPB) 100 ML IV ONE (18:00)
[2017-05-14] MEDS ORDERED: PIPERACILLIN/TAZOBACTAM 4.5 GM/NS 100 ML IV NR ×2 (18:00)
[2017-05-14] MEDS: ACETAMINOPHEN 325 MG TABLET/CAPLET (TYLENOL) PO PRN (18:29)
[2017-05-14] MEDS: ENOXAPARIN 80 MG/0.8 ML (LOVENOX) SYR SC SCH (20:17)
[2017-05-14] MEDS: GABAPENTIN 100 MG (NEURONTIN) CAP PO SCH (20:17)
[2017-05-14] MEDS: MEMANTINE 10 MG (NAMENDA) TABLET PO SCH (20:17)
[2017-05-15] MEDS: PIPERACILLIN/TAZOBACTAM 4.5 GM/NS 100 ML IVPB IV SCH ×6 (00:04→17:00)
[2017-05-15 00:29] VITALS: BP 122/72
[2017-05-15] MEDS: LEVOTHYROXINE 112 MCG (LEVOTHROID) TAB PO SCH (05:34)
[2017-05-15] MEDS: LEVOTHYROXINE 25 MCG (LEVOTHROID) TAB PO SCH (05:34)
[2017-05-15 06:26] LABS: MEAN PLATELET VOLUME 9.6 FL (7.4-10.4); RED BLOOD COUNT 3.84 10^6/uL (4.35-5.85); RED CELL DISTRIBUTION WIDTH 14.9 % (10.0-14.5)
[2017-05-15 07:00] LABS: INR 2.1 (0.8-1.4); PROTHROMBIN TIME PATIENT 23.6 SEC (12.2-14.7)
[2017-05-15 07:41] LABS: ALANINE AMINOTRANSFERASE 14 U/L (0-55); ALBUMIN 2.4 GM/DL (3.2-4.5); ANION GAP 7 MMOL/L (5-14); ASPARTATE AMINO TRANSFERASE 21 U/L (5-34); BILIRUBIN,TOTAL 0.3 MG/DL (0.1-1.0); BLOOD UREA NITROGEN 6 MG/DL (7-18); BUN/CREATININE RATIO 11; CALCIUM 7.4 MG/DL (8.5-10.1); CARBON DIOXIDE 22 MMOL/L (21-32); CHLORIDE 112 MMOL/L (98-107); CREATININE SERUM 0.57 MG/DL (0.60-1.30); GFR ESTIMATED > 60; GLUCOSE 83 MG/DL (70-105); SODIUM 141 MMOL/L (135-145); TOTAL PROTEIN 4.3 GM/DL (6.4-8.2)
[2017-05-15 08:36] VITALS: BP 105/57
--- NOTE | 2017-05-15 08:59 | Progress Note (SOAP) ---
Subjective Date Seen by Provider: May 15, 2017 Time Seen by Provider: 08:59 Subjective/Events-last exam PT REPORTS THAT SHE IS HAVING PERSISTENT ABDOMINAL/BACK PAIN SHE STATES THAT SHE HAS BEEN HAVING NAUSEA AND DECREASED APPETITE. Review of Systems General: Fatigue, Appetite (DECREASED) Pulmonary: Dyspnea, No Cough Cardiovascular: No: Chest Pain Gastrointestinal: Nausea, No: Vomiting Musculoskeletal: back pain Neurological: Weakness, No: Confusion Objective Exam Vital Signs Date Time Temp Pulse Resp B/P (MAP) Pulse Ox O2 Delivery O2 Flow Rate FiO2 05/15/17 08:36 97.4 80 20 105/57 98 Nasal Cannula 2.00 05/15/17 07:36 Nasal Cannula 2.00 05/15/17 00:29 98.3 77 16 122/72 98 Nasal Cannula 2.00 05/14/17 22:16 96.7 05/14/17 21:00 Nasal Cannula 2.00 05/14/17 20:37 Nasal Cannula 1.50 05/14/17 19:56 100.0 05/14/17 19:38 100.8 05/14/17 18:30 102.8 05/14/17 18:29 102.1 05/14/17 17:11 101.2 05/14/17 16:00 99.4 97 20 120/58 96 Nasal Cannula 2.00 05/14/17 09:00 Nasal Cannula 1.50 Capillary Refill : Less Than 3 Seconds General Appearance: WD/WN, Mild Distress Neck: Supple Respiratory: Chest Non Tender, Lungs Clear, Normal Breath Sounds Cardiovascular: Regular Rate, Rhythm, Systolic Murmur Gastrointestinal: normal bowel sounds, soft Extremity: No Pedal Edema Neurologic/Psychiatric: Alert, Oriented x3 Skin: Warm/Dry Lymphatic: No Adenopathy Results Lab Laboratory Tests 05/14/17 17:25: Urine Color YELLOW, Urine Clarity CLEAR, Urine pH 6, Urine Specific [place] 1.020, Urine Protein NEGATIVE, Urine Glucose (UA) NEGATIVE, Urine Ketones NEGATIVE, Urine Nitrite NEGATIVE, Urine Bilirubin NEGATIVE, Urine Urobilinogen NORMAL, Urine Leukocyte Esterase 1+H, Urine RBC (Auto) NEGATIVE, Urine RBC RARE , Urine WBC 2-5, Urine Squamous Epithelial Cells 2-5, Urine Crystals NONE, Urine Bacteria TRACE, Urine Casts NONE, Urine Mucus NEGATIVE, Urine Culture Indicated NO 05/14/17 18:55: Lactic Acid Level 1.01 05/15/17 06:00: White Blood Count 5.0, Red Blood Count 3.84L, Hemoglobin 10.5L, Hematocrit 34L, Mean Corpuscular Volume 88, Mean Corpuscular Hemoglobin 27, Mean Corpuscular Hemoglobin Concent 31L, Red Cell Distribution Width 14.9H, Platelet Count 187, Mean Platelet Volume 9.6, Sodium Level 141, Potassium Level 4.0, Chloride Level 112H, Carbon Dioxide Level 22, Anion Gap 7, Blood Urea Nitrogen 6L, Creatinine 0.57L, Estimat Glomerular Filtration Rate > 60, BUN/Creatinine Ratio 11, Glucose Level 83, Calcium Level 7.4L, Total Bilirubin 0.3, Aspartate Amino Transf (AST/SGOT) 21, Alanine Aminotransferase (ALT/SGPT) 14, Alkaline Phosphatase 83, Total Protein 4.3L, Albumin 2.4L 05/15/17 06:45: Prothrombin Time 23.6H, INR Comment 2.1H Microbiology 05/14/17 C. difficile GDH Antigen & Toxins - Final, Resulted 05/14/17 Stool Culture, Resulted Pending 05/12/17 Urine Culture - Final, Complete Assessment/Plan Assessment/Plan Assess & Plan/Chief Complaint SUPRA-THERAPEUTIC INR - UNABLE TO CALCULATE- VITAMIN K TO BE GIVEN IV THIS MORNING. 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 BACK PAIN - VOLTAREN GEL, IV PAIN MEDICATION. GENERALIZED WEAKNESS/MALAISE - WAITING ON THERAPY UNTIL PATIENT BETTER. 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 Clinical Quality Measures DVT/VTE Risk/Contraindication: Risk Factor Score Per Nursin RFS Level Per Nursing on Admit: 4+=Very High MALLORIE CONTRERAS MD May 15, 2017 08:59
[2017-05-15] MEDS ORDERED: PATIENT MAY USE OWN MED,SINGLE MED PO SCH (09:00)
[2017-05-15] MEDS: LOSARTAN 25 MG (COZAAR) TAB PO SCH (09:11)
[2017-05-15] MEDS: ASPIRIN E.C. 81 MG (ECOTRIN) TAB PO SCH (09:11)
[2017-05-15] MEDS: GABAPENTIN 100 MG (NEURONTIN) CAP PO SCH ×2 (09:11→20:17)
[2017-05-15] MEDS: MEMANTINE 10 MG (NAMENDA) TABLET PO SCH ×2 (09:11→20:17)
[2017-05-15] MEDS: ENOXAPARIN 80 MG/0.8 ML (LOVENOX) SYR SC SCH ×2 (09:11→20:17)
[2017-05-15] MEDS: meTOprolol SUCCINATE 100 MG (TOPROL XL) TAB PO SCH (09:11)
[2017-05-15] MEDS: MYRBETRIQ 50 MG TAB PO SCH (09:12)
[2017-05-15] MEDS: DICLOFENAC 1% GEL 100 GM (VOLTAREN) TUBE TP SCH ×4 (09:12→20:17)
[2017-05-15] MEDS: CALCIUM CARBONATE 600 MG (CALCARB) TAB PO SCH ×2 (09:47→17:53)
[2017-05-15] MEDS: NS W/KCL 20 MEQ/L 1,000 ML IV SCH ×2 (09:47→19:39)
[2017-05-15] MEDS: DRONABINOL 2.5 MG (MARINOL) CAP PO SCH ×2 (11:45→16:42)
--- NOTE | 2017-05-15 14:12 | Physical Therapy Evaluation ---
PT Evaluation-General Medical Diagnosis Admission Date May 13, 2017 at 08:30 Medical Diagnosis: uti, weakness, back pain Onset Date: May 13, 2017 Therapy Diagnosis Therapy Diagnosis: weakness, mobility impairments Height/Weight Height (Feet): 5 Height (Inches): 5.00 Weight (Pounds): 179 Weight (Ounces): 2.0 Precautions Precautions/Isolations: Fall Prevention, Standard Precautions Referral Physician: Carleen Anaya Reason for Referral: Evaluation/Treatment Medical History Pertinent Medical History: HTN, Hypothroidism, NC, OA, Smoking Additional Medical History high cholesterol, chronic diarrhea, gall bladder disease, chronic back pain, [place] , cataracts, double vision. Surg: D&C, mastectomy, hernia, adenoidectomy, appendectomy, bladder, cardiac, eye, gall bladder, hysterectomy, lumpectomy, orthopedic, thyroidectomy, tonsillectomy Current History Pt fell at home 05/09 on L shoulder, came to ER 05/13 and admitted for uti, weakness, and back pain Reviewed History: Yes Social History Home: Single Level Current Living Status: Alone Entry Into Home: Stairs With Railing PT Steps Into Home: 2 PT Steps Inside Home: 0 Prior/Core FIM Prior Level of Function Functional [place] Measure 0=Not Assessed/NA 4=Minimal Assistance 1=Total Assistance 5=Supervision or Setup 2=Maximal Assistance 6=Modified [place] 3=Moderate Assistance 7=Complete [place] Bed Mobility: 7 Transfers (B,C,W/C) (FIM): 7 Gait: 6 Locomotion: 7 Pt states she was fully independent prior. She reported she used a cane when she was outside or on uneven terrain. PT Evaluation-Current Subjective Pt was lying in bed prior to tx and agreeable to PT. Pt reports no pain. Pt was sitting up in chair with nurse call, phone, all needs met post tx, family in room. Pain Numeric Pain Scale: 0-No Pain Location: No Pain Reported Pt/Family Goals to return home with independence with mobility Objective Patient Orientation: Person, Place, Situation Attachments: Oxygen, IV 2L oxygen ROM/Strength Strength Upper Extremities Right narrow gauge brakeman strength 5/5 Left narrow gauge brakeman strength 4/5 Strenght Lower Extremities Left (hip flexion 3+/5, knee flexion 4/5, knee extension 5/5, ankle DF 5/5) Right (hip flexion 3+/5, knee flexion 4/5, knee extension 5/5, ankle DF 5/5) Integumentary/Posture Integumentary refer to nursing note Neuromuscular (Tone, Coordination, Reflexes) not tested Sensory Vision: Functional Hearing: Functional Sensation Right Upper Extremit: Intact Sensation Left Upper Extremity: Intact Sensation Right Lower Extremit: Intact Sensation Left Lower Extremity: Intact Transfers Functional [place] Measure 0=Not Assessed/NA 4=Minimal Assistance 1=Total Assistance 5=Supervision or Setup 2=Maximal Assistance 6=Modified [place] 3=Moderate Assistance 7=Complete [place] Transfers (B, C, W/C) (FIM): 4 Scootin Rollin Supine to/from Sit: 4 Sit to/from Stand: 4 Pt completes sit<>supine with min assist. Pt completes sit<>stand with CGA for safety, verbal cues for hand placement. Gait Mode of Locomotion: Walk Anticipated Mode of Locomotion: Walk Gait (FIM): 1 Distance (FIM): 1=up to 49 ft Distance: 20' Gait Level of Assist: 4 Gait Persons Needed: 1 Gait Assistive Device: FWW Comments/Gait Description Pt ambulates slowly, with FWW and CGA for safety. Pt requires verbal cues for turning and safety. Balance Sitting Static: Good Sitting Dynamic: Good Standing Static: Fair Standing Dynamic: Fair Assessment/Needs Pt has decreased activity tolerance, strength, balance and endurance, decreased bed mobility, transfers, and gait. Rehab Potential: Fair PT Short Term Goals Short Term Goals Time Frame: May 22, 2017 Transfers (B,C,W/C) (FIM): 5 Gait (FIM): 5 Gait Distance Comment: 150' Gait Level of Assist: 5 Gait Assistive Device: FWW PT Plan Problem List Problem List: Activity Tolerance, Functional Strength, Safety, Balance, Gait, Transfer, Bed Mobility Treatment/Plan Treatment Plan: Continue Plan of Care Treatment Plan: Bed Mobility, Education, Functional Activity Tushar, Functional Strength, Gait, Safety, Therapeutic Exercise, Transfers Treatment Duration: May 22, 2017 Frequency: 6 times per week Estimated Hrs Per Day: .25 hour per day (15-30min) Patient and/or Family Agrees t: Yes Safety Risks/Education Patient Education: Gait Training, Transfer Techniques, Reviewed Precautions, Correct Positioning, Safety Issues Teaching Recipient: Patient Teaching Methods: Demonstration, Discussion Response to Teaching: Verbalize Understanding, Reinforcement Needed Discharge Recommendations Plan Pt will complete gait, transfer, bed mobility training, endurance and balance training and strengthening, and receive safety education while admitted. Therapy D/C Recommendations: Home w/ Family Support, [facility]pc (TCU/NH) Time/GCodes Time In: 1345 Time Out: 1406 Total Billed Treatment Time: 21 Total Billed Treatment 1 visit EVL 21 ANDREA VOGEL PT May 15, 2017 14:12
[2017-05-15] MEDS: ONDANSETRON 4 MG/2 ML (SDV) Z0FRAN IVP PRN ×2 (14:18→20:17)
[2017-05-15 16:00] VITALS: BP 135/72
[2017-05-16] VITALS: BP 142/74
[2017-05-16] MEDS: PIPERACILLIN/TAZOBACTAM 4.5 GM/NS 100 ML IVPB IV SCH ×6 (00:13→16:01)
[2017-05-16] MEDS: NS W/KCL 20 MEQ/L 1,000 ML IV SCH ×2 (05:52→15:56)
[2017-05-16 06:11] LABS: MEAN PLATELET VOLUME 9.4 FL (7.4-10.4); RED BLOOD COUNT 3.72 10^6/uL (4.35-5.85); WHITE BLOOD COUNT 5.4 10^3/uL (4.3-11.0)
[2017-05-16] MEDS: LEVOTHYROXINE 112 MCG (LEVOTHROID) TAB PO SCH (06:23)
[2017-05-16] MEDS: LEVOTHYROXINE 25 MCG (LEVOTHROID) TAB PO SCH (06:23)
[2017-05-16] MEDS: CALCIUM CARBONATE 600 MG (CALCARB) TAB PO SCH ×2 (06:23→17:29)
[2017-05-16 06:31] LABS: ALANINE AMINOTRANSFERASE 21 U/L (0-55); ALBUMIN 2.3 GM/DL (3.2-4.5); ANION GAP 8 MMOL/L (5-14); ASPARTATE AMINO TRANSFERASE 29 U/L (5-34); BILIRUBIN,TOTAL 0.3 MG/DL (0.1-1.0); BLOOD UREA NITROGEN 6 MG/DL (7-18); BUN/CREATININE RATIO 11; CALCIUM 7.4 MG/DL (8.5-10.1); CARBON DIOXIDE 23 MMOL/L (21-32); CHLORIDE 109 MMOL/L (98-107); CREATININE SERUM 0.55 MG/DL (0.60-1.30); GFR ESTIMATED > 60; GLUCOSE 85 MG/DL (70-105); MAGNESIUM 1.3 MG/DL (1.8-2.4); POTASSIUM 3.9 MMOL/L (3.6-5.0); SODIUM 140 MMOL/L (135-145); TOTAL PROTEIN 4.3 GM/DL (6.4-8.2)
[2017-05-16 08:00] VITALS: BP 127/70
[2017-05-16] MEDS: ONDANSETRON 4 MG/2 ML (SDV) Z0FRAN IVP PRN (08:19)
[2017-05-16] MEDS: MYRBETRIQ 50 MG TAB PO SCH (08:26)
[2017-05-16] MEDS: DICLOFENAC 1% GEL 100 GM (VOLTAREN) TUBE TP SCH ×4 (08:27→20:06)
[2017-05-16] MEDS: GABAPENTIN 100 MG (NEURONTIN) CAP PO SCH ×2 (08:27→20:06)
[2017-05-16] MEDS: ENOXAPARIN 80 MG/0.8 ML (LOVENOX) SYR SC SCH (08:27)
[2017-05-16] MEDS: MEMANTINE 10 MG (NAMENDA) TABLET PO SCH ×2 (08:31→20:06)
--- NOTE | 2017-05-16 09:47 | Physical Therapy Daily Note ---
PT Daily Note-Current Subjective States that she is a little tired. Pain Numeric Pain Scale: 0-No Pain Transfers Functional [place] Measure 0=Not Assessed/NA 4=Minimal Assistance 1=Total Assistance 5=Supervision or Setup 2=Maximal Assistance 6=Modified [place] 3=Moderate Assistance 7=Complete IndependenceIRFPAI Quality Coding Scale 6 Independent with activity with or without an assistive device 5 Patient requires set up or clean up by helper. Patient completes activity by themselves 4 Supervision or touching assist (CGA). [place] provide cues , steadying assist 3 The helper provides less than half the effort to complete the activity 2 The helper provides more than half the effort to complete the activity 1 Dependent. The helper does all the effort to complete an activity 7 Patient refused to complete or attempt activity 9 The patient did not perform the activity before the current illness or injury 88 Not attempted due to Medical conditions or safety concerns Transfers (B, C, W/C) (FIM): 5 Scootin Supine to/from Sit: 5 Sit to/from Stand: 5 Bed to/from Chair: 5 Gait Training Gait (FIM): 2 Distance (FIM): 0=715-84 ft Distance: 80' Gait Level of Assist: 5 Gait Persons Needed: 1 Gait Assistive Device: FWW Assessment Current Status: Excellent Progress Patient was able to ambulate farther distance today. PT Short Term Goals Short Term Goals Time Frame: May 22, 2017 Transfers (B,C,W/C) (FIM): 5 Gait (FIM): 5 Gait Distance Comment: 150' Gait Level of Assist: 5 Gait Assistive Device: FWW PT Plan Treatment/Plan Treatment Plan: Continue Plan of Care Treatment Plan: Bed Mobility, Education, Functional Activity Tushar, Functional Strength, Gait, Safety, Therapeutic Exercise, Transfers Treatment Duration: May 22, 2017 Frequency: 6 times per week Estimated Hrs Per Day: .25 hour per day (15-30min) Patient and/or Family Agrees t: Yes Time/GCodes Time In: 934 Time Out: 944 Total Billed Treatment Time: 10 Total Billed Treatment 1, GT x 10' CASIE ALANIS PT May 16, 2017 09:47
[2017-05-16] MEDS: DRONABINOL 2.5 MG (MARINOL) CAP PO SCH ×2 (11:04→16:01)
--- NOTE | 2017-05-16 13:38 | Progress Note-Hospitalist ---
Progress Note Progress Notes/Assess & Plan Date Seen 05/16/17 Time Seen by Provider: 11:00 Diagonsis/Assessment & Plan Chart Review: Max fever 99.6 Vitals stable WBC 5.4 Hgb 10.2 and stable CMP normal except albumin 2.3 INR 2.1 yesterday All cx no growth except UCx Strep Viridans Reviewed Dr. Anaya note Uncontrolled pain, possible UTI, maintained on Zosyn All cx negative, final urine cx Strep. Viridans. Will try to narrow abx but upon review will maintain current coverage entry level chemist: BP 120/70, BP meds held Patient Interview: Pt states she is feeling better and told her daughter she wanted a pumpkin spice latte type drink Pt confirms experiencing pain. Pt states she had a BM today and her diarrhea is doing better. Pt wondered why she feels weak. Dehydration discussed Pt's daughter states that pt's INR was high upon admission and she was assured that labs good today. Physical exam stable. Lungs sound perfect Abx discussed and will be changed. UTI source discussed and is related to the diarrhea the pt was having Pt confirms living at home by herself. Pt's daughter states she will stay home with her after DC and her other daughter will come from [place] to stay with her too. Pt was assured that Dr. Anaya will return to see her on Thursday. Pt was informed that am labs will be drawn and injections will be stopped. Pt was encouraged to eat. Pt asked about nausea, and this may continue. Pt's daughter states that nausea shots were given every 6 hours and thought that they would be changed to 4 AFVSS, [place], chronically ill, sitting in chair, daughter at bedside RRR w/murmur CTAB No edema Laboratory Tests 05/16/17 05:25 Assessment: Uncontrolled pain on admission now much improved Recurrent nausea on Zofran Dementia Severe debility with multiple falls recently Diarrhea workup negative UTI with strep viridans on appropriate antibiotic coverage Cardiac valve replacement on Coumadin we'll restart today since INR is 2.1 after vitamin K given after supratherapeutic level Chronic anemia Plan: Continue abx DC Lovenox and restart Coumadin 3mg daily Check am labs Zofran Very debilitated and unsure if her daughters will be able to care for her at home since she is so weak and so many falls recently Scribed by Angie Chambers under the direct supervision of Dr. Erwin. ELLEN ERWIN DO May 16, 2017 13:37
[2017-05-16] MEDS: meTOprolol SUCCINATE 100 MG (TOPROL XL) TAB PO SCH (14:20)
[2017-05-16] MEDS: LOSARTAN 25 MG (COZAAR) TAB PO SCH (14:20)
[2017-05-16 15:40] VITALS: BP 136/70
[2017-05-16] MEDS ORDERED: warFARin 3 MG (COUMADIN) TAB PO SCH (18:00)
[2017-05-17] VITALS: BP 132/70
[2017-05-17] MEDS: PIPERACILLIN/TAZOBACTAM 4.5 GM/NS 100 ML IVPB IV SCH ×8 (00:33→23:24)
[2017-05-17] MEDS: LEVOTHYROXINE 112 MCG (LEVOTHROID) TAB PO SCH (06:30)
[2017-05-17] MEDS: LEVOTHYROXINE 25 MCG (LEVOTHROID) TAB PO SCH (06:30)
[2017-05-17] MEDS: CALCIUM CARBONATE 600 MG (CALCARB) TAB PO SCH ×2 (06:30→16:12)
[2017-05-17 07:30] LABS: INR 3.2 (0.8-1.4); PROTHROMBIN TIME PATIENT 32.6 SEC (12.2-14.7)
[2017-05-17 08:00] VITALS: BP 137/74
[2017-05-17] MEDS ORDERED: INFLUENZA TRIvalent 2017-2018 0.5 ML/45 MCG SYR IM ONE (08:00)
[2017-05-17] MEDS: GABAPENTIN 100 MG (NEURONTIN) CAP PO SCH ×2 (08:45→20:24)
[2017-05-17] MEDS: DICLOFENAC 1% GEL 100 GM (VOLTAREN) TUBE TP SCH ×4 (08:46→20:23)
[2017-05-17] MEDS: MYRBETRIQ 50 MG TAB PO SCH (08:46)
[2017-05-17] MEDS: MEMANTINE 10 MG (NAMENDA) TABLET PO SCH ×2 (08:54→20:24)
[2017-05-17] MEDS: ONDANSETRON 4 MG/2 ML (SDV) Z0FRAN IVP PRN ×4 (08:56→20:24)
[2017-05-17] MEDS: meTOprolol SUCCINATE 100 MG (TOPROL XL) TAB PO SCH (08:57)
[2017-05-17] MEDS: LOSARTAN 25 MG (COZAAR) TAB PO SCH (08:57)
[2017-05-17] MEDS: POLYETHYLENE GLYCOL 17 GM (MIRALAX) PACK PO SCH (09:37)
[2017-05-17] MEDS: DRONABINOL 2.5 MG (MARINOL) CAP PO SCH ×2 (09:48→16:12)
--- NOTE | 2017-05-17 13:01 | Progress Note-Hospitalist ---
Progress Note Progress Notes/Assess & Plan Date Seen 05/17/17 Time Seen by Provider: 11:45 Diagonsis/Assessment & Plan Chart Review: INR 3.2 so will hold Coumadin once again even though decreased dose to 3 down from 4 home dose yesterday No fever Vitals stable Patient Interview: Pt's daughter states her mother is still nauseated. I informed her that this could just be due to abx. The abx treatment will be done soon so the pt will be able to start feeling better. Physical exam stable Pt's daughter confirmed that she was given a shot for nausea recently Pt will have labs drawn tomorrow and Dr. Anaya will return AFVSS, [place], chronically ill, lying in bed on her right side, daughter at bedside [place] RRR w/murmur CTAB No edema Assessment: Uncontrolled pain on admission now much improved Recurrent nausea on Zofran could be related to abx? Zofran Q 4hrs prn Dementia Severe debility with multiple falls recently Diarrhea workup negative UTI with strep viridans on appropriate antibiotic coverage Cardiac valve replacement on Coumadin but holding after one dose yesterday of 3mg since INR is 3.2 after vitamin K given after supratherapeutic level on admit Chronic anemia Recurrent nausea Plan: Continue abx Hold Coumadin Zofran Very debilitated and unsure if her daughters will be able to care for her at home since she is so weak and so many falls recently Check am labs Pt appears more and more declined by the day and appears end-of-life status Scribed by Angie Chambers under the direct supervision of Dr. Erwin. ELLEN ERWIN DO May 17, 2017 13:01
[2017-05-17 15:57] VITALS: BP 140/70
[2017-05-17] MEDS: NS W/KCL 20 MEQ/L 1,000 ML IV SCH (16:14)
[2017-05-17] MEDS: ACETAMINOPHEN 325 MG TABLET/CAPLET (TYLENOL) PO PRN (16:19)
[2017-05-18 00:05] VITALS: BP 105/71
[2017-05-18] MEDS: LEVOTHYROXINE 112 MCG (LEVOTHROID) TAB PO SCH (06:06)
[2017-05-18] MEDS: CALCIUM CARBONATE 600 MG (CALCARB) TAB PO SCH ×2 (06:06→17:45)
[2017-05-18] MEDS: LEVOTHYROXINE 25 MCG (LEVOTHROID) TAB PO SCH (06:06)
[2017-05-18 06:20] LABS: RED BLOOD COUNT 3.61 10^6/uL (4.35-5.85); RED CELL DISTRIBUTION WIDTH 14.9 % (10.0-14.5); WHITE BLOOD COUNT 7.1 10^3/uL (4.3-11.0)
[2017-05-18 06:49] LABS: ALANINE AMINOTRANSFERASE 116 U/L (0-55); ALBUMIN 2.2 GM/DL (3.2-4.5); ANION GAP 8 MMOL/L (5-14); ASPARTATE AMINO TRANSFERASE 154 U/L (5-34); BILIRUBIN,TOTAL 0.4 MG/DL (0.1-1.0); BLOOD UREA NITROGEN 4 MG/DL (7-18); BUN/CREATININE RATIO 7; CALCIUM 7.6 MG/DL (8.5-10.1); CARBON DIOXIDE 25 MMOL/L (21-32); CHLORIDE 107 MMOL/L (98-107); CREATININE SERUM 0.54 MG/DL (0.60-1.30); GFR ESTIMATED > 60; GLUCOSE 77 MG/DL (70-105); POTASSIUM 3.4 MMOL/L (3.6-5.0); SODIUM 140 MMOL/L (135-145); TOTAL PROTEIN 4.1 GM/DL (6.4-8.2)
[2017-05-18 07:54] VITALS: BP 117/69
[2017-05-18] MEDS: PIPERACILLIN/TAZOBACTAM 4.5 GM/NS 100 ML IVPB IV SCH ×6 (08:21→23:35)
[2017-05-18] MEDS: LOSARTAN 25 MG (COZAAR) TAB PO SCH (08:21)
[2017-05-18] MEDS: meTOprolol SUCCINATE 100 MG (TOPROL XL) TAB PO SCH (08:22)
[2017-05-18] MEDS: MEMANTINE 10 MG (NAMENDA) TABLET PO SCH ×2 (08:22→20:08)
[2017-05-18] MEDS: MYRBETRIQ 50 MG TAB PO SCH (08:22)
[2017-05-18] MEDS: GABAPENTIN 100 MG (NEURONTIN) CAP PO SCH ×2 (08:22→20:08)
[2017-05-18] MEDS: ASPIRIN E.C. 81 MG (ECOTRIN) TAB PO SCH (08:22)
[2017-05-18] MEDS: DICLOFENAC 1% GEL 100 GM (VOLTAREN) TUBE TP SCH ×4 (08:23→20:08)
[2017-05-18 08:24] LABS: INR 2.9 (0.8-1.4); PROTHROMBIN TIME PATIENT 30.3 SEC (12.2-14.7)
--- NOTE | 2017-05-18 09:21 | Progress Note (SOAP) ---
Subjective Date Seen by Provider: May 18, 2017 Time Seen by Provider: 08:45 Subjective/Events-last exam PT REPORTS THAT SHE IS FEELING BETTER TODAY COMPARED TO THURSDAY AND THURSDAY. SHE STATES THAT SHE STILL HAS SOME NAUSEA, HAS SOME ABDOMINAL PAIN IN HER UPPER ABDOMEN, BUT IT IS NOT BAD YESTERDAY WHEN SHE WAS EXTREMELY NAUSEATED. Review of Systems General: Fatigue, Other (ELEVATED TEMPERATURE LAST NIGHT) HEENT: No Head Aches, No Dysphasia Pulmonary: No Dyspnea, No Cough Cardiovascular: Edema, No: Chest Pain, Palpitations Gastrointestinal: Nausea, Abdominal Pain Genitourinary: No Dysuria Musculoskeletal: No: back pain Neurological: Weakness, No: Confusion Objective Exam Vital Signs Date Time Temp Pulse Resp B/P (MAP) Pulse Ox O2 Delivery O2 Flow Rate FiO2 05/18/17 07:54 98.0 90 18 117/69 93 Room Air 05/18/17 00:05 99.2 94 20 105/71 94 Nasal Cannula 2.00 05/17/17 15:57 100.6 85 22 140/70 96 Nasal Cannula 2.00 Capillary Refill : Less Than 3 Seconds General Appearance: No Apparent Distress, WD/WN HEENT: PERRL/EOMI, Pharynx Normal Neck: Full Range of Motion, Supple Respiratory: Chest Non Tender, Lungs Clear, Normal Breath Sounds, No Accessory Muscle Use Cardiovascular: Regular Rate, Rhythm, Systolic Murmur (II/) Gastrointestinal: normal bowel sounds, soft, no organomegaly, no pulsatile mass , tenderness (RUQ, EPIGASTRIUM) Extremity: Normal Capillary Refill, No Pedal Edema Neurologic/Psychiatric: Alert, Oriented x3, Normal Mood/Affect Skin: Warm/Dry Lymphatic: No Adenopathy Results Lab Laboratory Tests 05/18/17 06:04: White Blood Count 7.1, Red Blood Count 3.61L, Hemoglobin 9.9L, Hematocrit 32L, Mean Corpuscular Volume 88, Mean Corpuscular Hemoglobin 27, Mean Corpuscular Hemoglobin Concent 31L, Red Cell Distribution Width 14.9H, Platelet Count 177, Mean Platelet Volume 9.0, Prothrombin Time 30.3H, INR Comment 2.9H, Sodium Level 140, Potassium Level 3.4L, Chloride Level 107, Carbon Dioxide Level 25, Anion Gap 8, Blood Urea Nitrogen 4L, Creatinine 0.54L, Estimat Glomerular Filtration Rate > 60, BUN/Creatinine Ratio 7, Glucose Level 77, Calcium Level 7.6L, Total Bilirubin 0.4, Aspartate Amino Transf (AST/SGOT) 154H, Alanine Aminotransferase (ALT/SGPT) 116H, Alkaline Phosphatase 118, Total Protein 4.1L, Albumin 2.2L Microbiology 05/14/17 Blood Culture - Preliminary, Resulted No growth 05/14/17 Cryptosporidium/Giardia - Final, Complete 05/12/17 Urine Culture - Final, Complete Assessment/Plan Assessment/Plan Assess & Plan/Chief Complaint SUPRA-THERAPEUTIC INR - RESOLVED AFTER VITAMIN K - PT ON HER HOME COUMADIN - CONTINUE TO MONITOR INR. TODAY HER INR WAS 2.9. 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 BACK PAIN - VOLTAREN GEL, IV PAIN MEDICATION. GENERALIZED WEAKNESS/MALAISE - STARTED PHYSICAL THERAPY. ABDOMINAL PAIN - WITH ELEVATED LFT'S - CHECK CT OF ABDOMEN AND PELVIS - PT NO LONGER HAS HER GALLBLADDER, BUT HER EPIGASTRIUM AND RUQ IS TENDER - WILL MONITOR SYMPTOMS, REPEAT LFT'S TOMORROW MORNING. MONITOR FEVERS. RECENT FALL AT HOME - WILL NEED PT FOR GAIT TRAINING DEMENTIA - STABLE HYPERTENSION- CHRONIC - RESTARTED HOME MEDICATIONS. Clinical Quality Measures DVT/VTE Risk/Contraindication: Risk Factor Score Per Nursin RFS Level Per Nursing on Admit: 4+=Very High MALLORIE CONTRERAS MD May 18, 2017 09:21
--- NOTE | 2017-05-18 10:24 | Physical Therapy Progress Note ---
Therapy Progress Note Patient declined treatment on this date due to feeling too ill to participate. RN confirms. PT will attempt later on this date. 1 ref MARIYA MAE PT May 18, 2017 10:24
[2017-05-18] MEDS ORDERED: IOHEXOL 350 MG/ML 100 ML (OMNIPAQUE 350) VIAL IV ONE (11:00)
[2017-05-18] MEDS ORDERED: CATHETER FLUSH 10 ML SYR IV PRN (11:00)
[2017-05-18] MEDS ORDERED: NS 100 ML (IVPB) BAG IV ONE (11:00)
--- NOTE | 2017-05-18 12:09 | Diagnostic Imaging Report ---
PROCEDURE: CT abdomen and pelvis with contrast. TECHNIQUE: Multiple contiguous axial images were obtained through the abdomen and pelvis after administration of intravenous contrast. INDICATION: Abdominal pain. CONTRAST: 100 mL of Omnipaque 350 was administered intravenously. FINDINGS: There are small pleural effusions with adjacent minimal bibasilar atelectasis. The liver, spleen, pancreas, and adrenal glands appear unremarkable. Mildly dilated bile ducts are seen. This is slightly more prominent compared to 2011 but appears to be chronic and is in part related to the prior cholecystectomy. The kidneys have symmetric enhancement and contrast excretion. There is mild right hydronephrosis without an obstructive lesion identified. There is an IVC filter in place. No thrombus is seen in the vena cava. The abdominal aorta is normal in caliber. No periaortic significantly enlarged lymph node is seen. There is a small amount of pelvic free fluid noted. There is evidence of prior hysterectomy. No bowel obstruction. The osseous structures demonstrate moderate to severe degenerative changes in the hip joints and prominent degenerative changes in the lower lumbar spine and SI joints. There is a left convexity scoliotic curvature in the lumbar spine. IMPRESSION: 1. Small pleural effusions with minimal bibasilar atelectasis. 2. Small amount of free fluid in the pelvis of uncertain etiology. 3. Mild right hydronephrosis with no definite obstructive lesion identified. Dictated by: Dictated on workstation # [id number]
[2017-05-18] MEDS: DRONABINOL 2.5 MG (MARINOL) CAP PO SCH ×2 (12:41→13:38)
[2017-05-18] MEDS: NS W/KCL 20 MEQ/L 1,000 ML IV SCH (12:46)
[2017-05-18] MEDS: MAGNESIUM 1 GM/100 ML IVPB 100 ML IV SCH ×2 (13:42→14:45)
--- NOTE | 2017-05-18 14:07 | Physical Therapy Daily Note ---
PT Daily Note-Current Subjective Patient is very agreeable to participate with PT. Pain Numeric Pain Scale: 0-No Pain Location: No Pain Reported Mental Status Patient Orientation: Normal For Age Attachments: IV Transfers Functional [place] Measure 0=Not Assessed/NA 4=Minimal Assistance 1=Total Assistance 5=Supervision or Setup 2=Maximal Assistance 6=Modified [place] 3=Moderate Assistance 7=Complete IndependenceIRFPAI Quality Coding Scale 6 Independent with activity with or without an assistive device 5 Patient requires set up or clean up by helper. Patient completes activity by themselves 4 Supervision or touching assist (CGA). [place] provide cues , steadying assist 3 The helper provides less than half the effort to complete the activity 2 The helper provides more than half the effort to complete the activity 1 Dependent. The helper does all the effort to complete an activity 7 Patient refused to complete or attempt activity 9 The patient did not perform the activity before the current illness or injury 88 Not attempted due to Medical conditions or safety concerns Transfers (B, C, W/C) (FIM): 6 Scootin Rollin Supine to/from Sit: 6 Sit to/from Stand: 6 Gait Training Gait (FIM): 6 Distance (FIM): 3=150 ft Distance: 275' Gait Level of Assist: 6 Gait Assistive Device: FWW slow, steady, functional gait sequence Assessment Current Status: Excellent Progress Patient tolerated treatment well and is fatigued this p.m. due to increase in activity. PT Short Term Goals Short Term Goals Time Frame: May 22, 2017 Transfers (B,C,W/C) (FIM): 5 Gait (FIM): 5 Gait Distance Comment: 150' Gait Level of Assist: 5 Gait Assistive Device: FWW PT Plan Treatment/Plan Treatment Plan: Continue Plan of Care Treatment Plan: Bed Mobility, Education, Functional Activity Tushar, Functional Strength, Gait, Safety, Therapeutic Exercise, Transfers Treatment Duration: May 22, 2017 Frequency: 6 times per week Estimated Hrs Per Day: .25 hour per day (15-30min) Patient and/or Family Agrees t: Yes Time/GCodes Time In: 1347 Time Out: 1402 Total Billed Treatment Time: 15 Total Billed Treatment 1 visit FA 15 min MARIYA MAE PT May 18, 2017 14:07
[2017-05-18 16:00] VITALS: BP 146/68
[2017-05-18] MEDS: ONDANSETRON 4 MG/2 ML (SDV) Z0FRAN IVP PRN (20:12)
[2017-05-19] MEDS: ACETAMINOPHEN 325 MG TABLET/CAPLET (TYLENOL) PO PRN (00:05)
[2017-05-19 00:45] VITALS: BP 116/57
[2017-05-19] MEDS: NS W/KCL 20 MEQ/L 1,000 ML IV SCH (03:43)
[2017-05-19] MEDS: LEVOTHYROXINE 112 MCG (LEVOTHROID) TAB PO SCH (05:48)
[2017-05-19] MEDS: LEVOTHYROXINE 25 MCG (LEVOTHROID) TAB PO SCH (05:48)
[2017-05-19 06:41] LABS: PROTHROMBIN TIME PATIENT 31.2 SEC (12.2-14.7)
[2017-05-19 06:51] LABS: ALANINE AMINOTRANSFERASE 111 U/L (0-55); ALBUMIN 2.3 GM/DL (3.2-4.5); ANION GAP 7 MMOL/L (5-14); ASPARTATE AMINO TRANSFERASE 92 U/L (5-34); BILIRUBIN,TOTAL 0.4 MG/DL (0.1-1.0); BLOOD UREA NITROGEN 5 MG/DL (7-18); BUN/CREATININE RATIO 8; CALCIUM 7.5 MG/DL (8.5-10.1); CARBON DIOXIDE 29 MMOL/L (21-32); CHLORIDE 105 MMOL/L (98-107); GFR ESTIMATED > 60; GLUCOSE 77 MG/DL (70-105); POTASSIUM 3.4 MMOL/L (3.6-5.0); SODIUM 141 MMOL/L (135-145); TOTAL PROTEIN 4.4 GM/DL (6.4-8.2)
[2017-05-19 08:00] VITALS: BP 125/74
[2017-05-19] MEDS: PIPERACILLIN/TAZOBACTAM 4.5 GM/NS 100 ML IVPB IV SCH ×2 (08:25)
[2017-05-19] MEDS: GABAPENTIN 100 MG (NEURONTIN) CAP PO SCH (08:25)
[2017-05-19] MEDS: LOSARTAN 25 MG (COZAAR) TAB PO SCH (08:25)
[2017-05-19] MEDS: ONDANSETRON 4 MG/2 ML (SDV) Z0FRAN IVP PRN (08:25)
[2017-05-19] MEDS: CALCIUM CARBONATE 600 MG (CALCARB) TAB PO SCH (08:26)
[2017-05-19] MEDS: meTOprolol SUCCINATE 100 MG (TOPROL XL) TAB PO SCH (08:26)
[2017-05-19] MEDS: MEMANTINE 10 MG (NAMENDA) TABLET PO SCH (08:26)
[2017-05-19] MEDS: MYRBETRIQ 50 MG TAB PO SCH (08:26)
--- NOTE | 2017-05-19 08:56 | Discharge Summary ---
Diagnosis/Chief Complaint Date of Admission May 13, 2017 at 08:30 Date of Discharge Discharge Date: May 19, 2017 Discharge Time: 09:05 Admission Diagnosis Admission Diagnosis SUPRA-THERAPEUTIC INR - UNABLE TO CALCULATE CHRONIC ANTICOAGULATION URINARY TRACT INFECTION BACK PAIN GENERALIZED WEAKNESS/MALAISE RECENT FALL AT HOME DEMENTIA HYPERTENSION Discharge Diagnosis SUPRA-THERAPEUTIC INR - UNABLE TO CALCULATE CHRONIC ANTICOAGULATION URINARY TRACT INFECTION BACK PAIN GENERALIZED WEAKNESS/MALAISE RECENT FALL AT HOME DEMENTIA HYPERTENSION PLEURAL EFFUSION NAUSEA ABDOMINAL PAIN ELEVATED LFT'S Reason Hospital Visit PT WAS ADMITTED TO THE HOSPITAL WITH UNCONTROLLED PAIN, CONFUSION, WEAKNESS, UNCONTROLLED BACK PAIN, POSSIBLE UTI. PT HAD FALLEN AT HOME, FELL ON HER LEFT SHOULDER AND HAS HAD PERSISTENT PAIN SINCE THAT TIME. AFTER ADMISSION THROUGHT THE er IT WAS FOUND THAT HER INR WAS UNABLE TO BE CALCULATED DUE TO ELEVATED PTT Discharge Summary Discharge Physical Examination Allergies: Coded Allergies: meperidine (Verified Allergy, Unknown, 07/28/14) pentazocine (Verified Allergy, Unknown, 07/28/14) codeine (Verified Adverse Reaction, Mild, NAUSEA, 07/28/14) morphine (Verified Adverse Reaction, Mild, NAUSEA, 07/28/14) Vitals & I&Os Vital Signs Date Time Temp Pulse Resp B/P (MAP) Pulse Ox O2 Delivery O2 Flow Rate FiO2 05/19/17 08:00 97.2 81 22 125/74 93 Room Air 05/19/17 00:45 2.00 General Appearance: Alert, Oriented X3, Cooperative HEENT: Atraumatic Respiratory: Clear to Auscultation, Normal Air Movement Cardiovascular: Regular Rate Abdominal: Normal Bowel Sounds, Soft, Other (TTP OVER EPIGASTRIUM) Extremities: No Edema Skin: No Breakdown Neuro: Normal Speech, Cranial Nerves 3-12 NL Psych/Mental Status: Mental Status NL, Mood NL Hospital Course SUPRA-THERAPEUTIC INR - UNABLE TO CALCULATE CHRONIC ANTICOAGULATION URINARY TRACT INFECTION BACK PAIN GENERALIZED WEAKNESS/MALAISE RECENT FALL AT HOME DEMENTIA HYPERTENSION PLEURAL EFFUSION NAUSEA ABDOMINAL PAIN ELEVATED LFT'S SUPRA-THERAPEUTIC INR - RESOLVED AFTER VITAMIN K - - CONTINUE TO MONITOR INR. 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 BACK PAIN - VOLTAREN GEL, IV PAIN MEDICATION. GENERALIZED WEAKNESS/MALAISE - STARTED PHYSICAL THERAPY. ABDOMINAL PAIN - WITH ELEVATED LFT'S - CHECKED CT OF ABDOMEN AND PELVIS -LIVER AND PANCREAS WERE BENIGN EXCEPT FOR SLIGHT BILIARY DILATION - MONITOR FEVERS. START ON CARAFATE RECENT FALL AT HOME - WILL NEED PT FOR GAIT TRAINING DEMENTIA - STABLE HYPERTENSION- CHRONIC - RESTARTED HOME MEDICATIONS. Pending Labs Laboratory Tests 05/19/17 06:19: Prothrombin Time 31.2, INR Comment 3.0, Sodium Level 141, Potassium Level 3.4, Chloride Level 105, Carbon Dioxide Level 29, Anion Gap 7, Blood Urea Nitrogen 5 , Creatinine 0.60, Estimat Glomerular Filtration Rate > 60, BUN/Creatinine Ratio 8, Glucose Level 77, Calcium Level 7.5, Total Bilirubin 0.4, Aspartate Amino Transf (AST/SGOT) 92, Alanine Aminotransferase (ALT/SGPT) 111, Alkaline Phosphatase 110, Total Protein 4.4, Albumin 2.3 Discharge Condition at discharge STABLE Instructions to patient/family Please see electronic discharge instructions given to patient. Discharge Medications Reviewed and agree with Discharge Medication list on patient's Discharge Instruction sheet Clinical Quality Measures DVT/VTE Risk/Contraindication: Risk Factor Score Per Nursin RFS Level Per Nursing on Admit: 4+=Very High MALLORIE CONTRERAS MD May 19, 2017 08:56
[2017-06-08] MEDS ORDERED: PANT40TA3 PO (09:41)
[2017-06-08] MEDS ORDERED: CYPR4TAB PO (09:41)
[2017-06-08] MEDS ORDERED: POTA20TA8 PO (09:41)
[2017-06-08] MEDS ORDERED: ENOX40DI8 SC (09:41)
[2017-06-08] MEDS ORDERED: FURO40TA4 PO (09:41)
[2017-06-08] MEDS ORDERED: WARF3TAB PO (09:41)
[2017-06-08] MEDS ORDERED: SUCR1TAB PO (09:41)
== END 2017-05-19 09:06 | disposition swing bed (61) | DRG 690 ==
LOC: EDUNIT# 17:04 → ER 17:07 → 4TH 20:57 → UNDOADMOB 20:57 → 4TH 21:30 → OBSVTOIN 05-13 08:30 → INTOOBSV 05-13 08:30 → 4TH 05-14 09:56 → UNDODISIN 05-19 09:06
PROVIDERS: ADMIT Family Medicine; ATTEND Family Medicine
DX: N39.0 Urinary tract infection, site not specified (principal); B95.4 Other streptococcus as the cause of diseases classified elsewhere; E86.0 Dehydration; R79.1 Abnormal coagulation profile; E87.6 Hypokalemia; J90 Pleural effusion, not elsewhere classified; M54.9 Dorsalgia, unspecified; R53.1 Weakness; R53.83 Other fatigue; R19.7 Diarrhea, unspecified; R11.0 Nausea; R10.13 Epigastric pain; R10.11 Right upper quadrant pain; R74.8 Abnormal levels of other serum enzymes; D64.9 Anemia, unspecified; E89.0 Postprocedural hypothyroidism; I10 Essential (primary) hypertension; E78.00 Pure hypercholesterolemia, unspecified; I25.2 Old myocardial infarction; F03.90 Unspecified dementia, unspecified severity, without behavioral disturbance, psychotic disturbance, mood disturbance, and anxiety; M19.91 Primary osteoarthritis, unspecified site; H91.90 Unspecified hearing loss, unspecified ear; Z79.01 Long term (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 of anticoagulants; Z95.2 Presence of prosthetic heart valve; Z91.81 History of falling; Z85.3 Personal history of malignant neoplasm of breast; Z87.891 Personal history of nicotine dependence; Z96.653 Presence of artificial knee joint, bilateral
CPT/HCPCS: 36415; 71010; 72100; 72131; 74177; 80048; 80053; 81000; 83605; 83735; 83880; 84439; 84443; 84484; 85025; 85027; 85610; 87040; 87045; 87046; 87088; 87324; 87328; 87329; 87449; 93005; 96361; 96374; G0378

== ENCOUNTER 2017-05-19 09:18 | Inpatient (IN) | payer MEDICARE ==
[~2017-05-19] VITALS: Ht 165.1 cm; Wt 83.5 kg
[~2017-05-19 09:18] MED LIST changes: +ACET-2469 PO; +ACID1TAB5 PO; +ASPI-983 PO; +CHOL20002 PO; +CYAN500T2 PO; +DOCU-143 PO; +LEVO137T2 PO; +MEMA10TA22 PO; +METO-274 PO; +MIRA50TA PO; +MULT1TAB69 PO; +MULT80TA PO; +PANTOPRAZOLE 40 MG/10 ML (PROTONIX) VIAL IV NR; +POLY17PO6 PO; +PRAV10TA PO; +SLOW IRON PO; +SUCRALFATE 1 GM (CARAFATE) TAB PO NR; +VIT1CAPS44 PO; +WARF2TAB PO
[2017-05-19 09:30] VITALS: BP 128/68
[2017-05-19] MEDS ORDERED: INFLUENZA TRIvalent 2017-2018 0.5 ML/45 MCG SYR IM ONE (09:45)
[2017-05-19] MEDS ORDERED: CATHETER FLUSH 10 ML SYR IV PRN (09:45)
[2017-05-19] MEDS ORDERED: PIPERACILLIN/TAZOBACTAM 4.5 GM/NS 100 ML IVPB IV SCH ×2 (10:12)
[2017-05-19] MEDS ORDERED: warFARin 3 MG (COUMADIN) TAB PO SCH (10:12)
--- NOTE | 2017-05-19 10:15 | Physical Therapy Evaluation ---
PT Evaluation-General Medical Diagnosis Admission Date May 19, 2017 at 09:18 Medical Diagnosis: UTI/back pain Onset Date: May 10, 2017 Therapy Diagnosis Therapy Diagnosis: general debility/weakness Height/Weight Height (Feet): 5 Height (Inches): 5.00 Weight (Pounds): 179 Weight (Ounces): 2.0 Precautions Precautions/Isolations: Standard Precautions Weight Bear Status Right Lower Extremity: Right Weight Bearing/Tolerated Left Lower Extremity: Left Weight Bearing/Tolerated Referral Physician: Héctor Reason for Referral: Evaluation/Treatment Medical History Pertinent Medical History: HTN, Hypothroidism, [place], OA, Smoking Additional Medical History elevated PTT/INR Current History SWB status Reviewed History: Yes Social History Home: Single Level Current Living Status: Alone Entry Into Home: Stairs With Railing PT Steps Into Home: 2 Prior/Core FIM Prior Level of Function Functional [place] Measure 0=Not Assessed/NA 4=Minimal Assistance 1=Total Assistance 5=Supervision or Setup 2=Maximal Assistance 6=Modified [place] 3=Moderate Assistance 7=Complete [place] Bed Mobility: 7 Transfers (B,C,W/C) (FIM): 7 Gait: 6 utilizes cane outside and in community PT Evaluation-Current Subjective Patient agrees to PT. Pain Numeric Pain Scale: 0-No Pain Location: No Pain Reported Objective Patient Orientation: Normal For Age Problem Solving: Good Attachments: IV ROM/Strength ROM Lower Extremities bilaterl LE WNL Strenght Lower Extremities bilateral LE 3+/5 grossly Integumentary/Posture Integumentary refer to nursing notes Bowel Incontinence: Yes Bladder Incontinence: Yes Posture WNL Neuromuscular (Tone, Coordination, Reflexes) grossly intact Sensory Vision: Functional Hearing: Functional Sensation Right Lower Extremit: Intact Sensation Left Lower Extremity: Intact Transfers Functional [place] Measure 0=Not Assessed/NA 4=Minimal Assistance 1=Total Assistance 5=Supervision or Setup 2=Maximal Assistance 6=Modified [place] 3=Moderate Assistance 7=Complete [place] Transfers (B, C, W/C) (FIM): 5 Scootin Rollin Supine to/from Sit: 5 Sit to/from Stand: 6 Sit to Lying (QC): 4 Lying to Sitting/Side of Bed(Q: 4 Sit to Stand (QC): 5 Chair/Tpv-uh-Banps Xfer(QC): 5 Gait Does the Patient Walk?: Yes Mode of Locomotion: Walk Anticipated Mode of Locomotion: Walk Gait (FIM): 5 Distance (FIM): 3=150 ft Distance: 250' Walk 50 ft with 2 Turns(QC): 4 Walk 150 ft (QC): 4 Gait Level of Assist: 5 Gait Persons Needed: 1 Gait Assistive Device: FWW Comments/Gait Description very slow, steady gait sequence Balance Sitting Static: Normal Sitting Dynamic: Normal Standing Static: Normal Standing Dynamic: Normal Treatment sit to stand exercises x 10 reps; bed mobility with rolling and supine to sit with bed flat bilateral LE exercises in sit 25 reps each AP, LAQ to improve functional mobility Assessment/Needs 87 y.o. female, will benefit from skilled PT to address functional strength and mobility to improve current LOF and to safely return to home at maximum LOF. Rehab Potential: Good PT Operations Research Manager Goals Operations Research Manager Goals PT Senior Living Goals Time Frame: May 29, 2017 Transfers (B,C,W/C) (FIM): 6 Sit to Lying (QC): 5 Lying-Sitting on Side/Bed(QC): 5 Sit to Stand (QC): 5 Rollin Chair/Pvu-nx-Plpod Xfer(QC): 5 Does the Patient Walk: Yes Gait (FIM): 6 Gait distance (FIM): 3=150 ft Distance: >300' Walk 50ft with 2 Turns (QC): 5 Walk 150 ft (QC): 5 Gait Level of Assist: 6 Gait Assistive Device: FWW PT Plan Problem List Problem List: Activity Tolerance, Functional Strength Treatment/Plan Treatment Plan: Continue Plan of Care Treatment Plan: Bed Mobility, Education, Functional Activity Tushar, Functional Strength, Gait, Safety, Therapeutic Exercise, Transfers Treatment Duration: May 29, 2017 Frequency: 11 times per week Estimated Hrs Per Day: .5 hour per day Patient and/or Family Agrees t: Yes Safety Risks/Education Patient Education: Safety Issues Teaching Recipient: Patient Teaching Methods: Discussion Response to Teaching: Verbalize Understanding Discharge Recommendations Therapy D/C Recommendations: Home Independently, Physical Therapy Home Care Time/GCodes Time In: 934 Time Out: 957 Total Billed Treatment Time: 23 Total Billed Treatment 1 visit EVModC 8 min FA 15 min G Codes Necessary: MARIYA Gomez PT May 19, 2017 10:15
[2017-05-19] MEDS: DICLOFENAC 1% GEL 100 GM (VOLTAREN) TUBE TP SCH ×3 (13:55→22:12)
[2017-05-19] MEDS: DRONABINOL 2.5 MG (MARINOL) CAP PO SCH ×2 (13:55→16:35)
--- NOTE | 2017-05-19 13:55 | Occupational Therapy Eval ---
OT Evaluation-General/PLF Medical Diagnosis Admission Date May 19, 2017 at 09:18 Medical Diagnosis: UTI/back pain Onset Date: May 10, 2017 Therapy Diagnosis Therapy Diagnosis: decreased self care skills Height/Weight Height (Feet): 5 Height (Inches): 5.00 Weight (Pounds): 179 Weight (Ounces): 2.0 Precautions Precautions/Isolations: Standard Precautions Referral Physician: Héctor Medical History Pertinent Medical History: Breast CA S/P Mastectomy, HTN, Hypothroidism, [place], OA , Smoking Additional Medical History heart valve replacement, high cholesterol, thyroidectomy, gallbladder disease, TKA, left collarbone fracture, arthritis, chronic back pain, Reviewed History: Yes Social History Home: Single Level Current Living Status: Alone Entry Into Home: Stairs With Railing Steps Into Home: 2 ADL-Prior Level of Function ADL PLOF Comments Pt reports being independent with self care and mobility prior to admission. Pt drives and does her own shopping. Uses cane or FWW as needed. DME/Equipment: Bath Chair, Grab Bars, Tub/Shower Drive Self: Yes OT Current Status Subjective Pt in bed, agrees to therapy. Pt has no c/o pain, but states she is cold. Mental Status/Objective Patient Orientation: Person, Place, Situation Attachments: IV, Oxygen Current Glasses/Contacts: Yes Hearing Aids: Yes Dentures/Partials: Yes Hand Dominance: Right Upper Extremity ROM Decreased bilateral shoulder ROM. Remainder grossly WFL Upper Extremity Coordination Grossly WFL Upper Extremity Sensation Intact per pt report Upper Extremity Strength Grossly 4-/5 ADL-Treatment ADL-Current Pt supine to sit with supervision. UE assessment completed while seated EOB. Pt would like to shower. RN states pt okay to shower. Pt sit to stand with supervision. Gait to restroom with FWW. Transfer to walk in shower with CGA and cues for safety. Pt bathed upper body with set up. Minimal assistance to wash lower body. Pt donned gown with set up. Assist to start underwear over feet, but then pt able to complete task. Stood with supervision for balance during pant hike. Pt donned right sock with set up, but required minimal assistance to don left sock. Sit to supine with SBA. Pt in bed with needs met after session. Functional [place] Measure 0=Not Assessed/NA 4=Minimal Assistance 1=Total Assistance 5=Supervision or Setup 2=Maximal Assistance 6=Modified [place] 3=Moderate Assistance 7=Complete IndependenceIRFPAI Quality Coding Scale 6 Independent with activity with or without an assistive device 5 Patient requires set up or clean up by helper. Patient completes activity by themselves 4 Supervision or touching assist (CGA). [place] provide cues , steadying assist 3 The helper provides less than half the effort to complete the activity 2 The helper provides more than half the effort to complete the activity 1 Dependent. The helper does all the effort to complete an activity 7 Patient refused to complete or attempt activity 9 The patient did not perform the activity before the current illness or injury 88 Not attempted due to Medical conditions or safety concerns Eating (FIM): 6 Eating (QC): 6 Bathing (FIM): 4 Upper Body Dressing (FIM): 3 Lower Body Dressing (FIM): 4 Shower Transfer (FIM): 4 Education OT Patient Education: Rehab process Teaching Recipient: Patient Teaching Methods: Discussion Response to Teaching: Verbalize Understanding OT Short Term Goals Short Term Goals 1=Demonstrate adherence to instructed precautions during ADL tasks. 2=Patient will verbalize/demonstrate understanding of assistive devices/ modifications for ADL. 3=Patient will improve strength/tolerance for activity to enable patient to perform ADL's. OT Half-Way Goals Vamp Creaser Goals Time Frame: Jun 02, 2017 Eating (FIM): 6 Eating (QC): 6 Groomin Oral Hygiene (QC): 6 Bathing(FIM): 5 Upper Body Dressing(FIM): 6 Lower Body Dressing(FIM): 6 Toileting(FIM): 6 Toileting Hygiene (QC): 6 Toilet/Commode Transfer(FIM): 6 Toilet/Commode Transfer (QC): 6 Additional Goals: 2-Verbalize Understanding, 3-ImproveStrength/Tushar 1=Demonstrate adherence to instructed precautions during ADL tasks. 2=Patient will verbalize/demonstrate understanding of assistive devices/ modifications for ADL. 3=Patient will improve strength/tolerance for activity to enable patient to perform ADL's. OT Education/Plan Problem List/Assessment Assessment: Decreased Activ Tolerance, Decreased UE Strength, Dependent Transfers, Impaired Self-Care Skills Pt demonstrates decreased mobility, strength, activity tolerance, and ADL functioning. Pt to benefit from skilled OT intervention for ADL training, transfers, strengthening, and home safety education to maximize level of function and allow safe discharge home. Discharge Recommendations Plan/Recommendations: Continue POC Treatment Plan/Plan of Care Treatment,Training & Education: Yes Patient would benefit from OT for education, treatment and training to promote independence in ADL's, mobility, safety and/or upper extremity function for ADL' s. Plan of Care: ADL Retraining, Functional Mobility, UE Funct Exercise/Act Treatment Duration: Jun 02, 2017 Frequency: 5 times per week Estimated Hrs Per Day: .5 hour per day Rehab Potential: Good Time/GCodes Start Time: 13:14 Stop Time: 13:47 Total Time Billed (hr/min): 33 Billed Treatment Time 1 visit, EVL(12minutes), ADL(21minutes) JULIA HUNTLEY OT May 19, 2017 13:55
[2017-05-19] MEDS: POLYETHYLENE GLYCOL 17 GM (MIRALAX) PACK PO SCH (13:57)
[2017-05-19] MEDS: SUCRALFATE 1 GM (CARAFATE) TAB PO SCH ×3 (13:57→20:17)
[2017-05-19] MEDS: CATHETER FLUSH 10 ML SYR IV SCH ×2 (14:06→22:12)
[2017-05-19] MEDS: NS W/KCL 20 MEQ/L 1,000 ML IV SCH ×3 (14:07→23:19)
--- NOTE | 2017-05-19 14:38 | Physical Therapy Progress Note ---
Therapy Progress Note Patient declined PT secondary to extreme fatigue. Education with patient on importance of participating with therapy to improve strength and mobility to ensure safe return to home, however, patient continued to decline PT at this time. 1 visit ref MARIYA MAE PT May 19, 2017 14:38
[2017-05-19] MEDS: ACETAMINOPHEN 325 MG TABLET/CAPLET (TYLENOL) PO PRN (15:08)
[2017-05-19] MEDS: PIPERACILLIN/TAZOBACTAM 4.5 GM/NS 100 ML IVPB IV SCH ×4 (15:26→23:14)
[2017-05-19] MEDS: CALCIUM CARBONATE 600 MG (CALCARB) TAB PO SCH (17:51)
[2017-05-19 18:00] VITALS: BP 116/65
[2017-05-19] MEDS: GABAPENTIN 100 MG (NEURONTIN) CAP PO SCH (20:17)
[2017-05-19] MEDS: PANTOPRAZOLE 40 MG/10 ML (PROTONIX) VIAL IV SCH (20:17)
[2017-05-20] MEDS: ACETAMINOPHEN 325 MG TABLET/CAPLET (TYLENOL) PO PRN ×4 (00:06→19:00)
[2017-05-20] MEDS: LEVOTHYROXINE 25 MCG (LEVOTHROID) TAB PO SCH (05:36)
[2017-05-20] MEDS: LEVOTHYROXINE 112 MCG (LEVOTHROID) TAB PO SCH (05:36)
[2017-05-20] MEDS: CATHETER FLUSH 10 ML SYR IV SCH ×3 (05:37→20:27)
[2017-05-20] MEDS: SUCRALFATE 1 GM (CARAFATE) TAB PO SCH ×4 (05:38→20:26)
[2017-05-20 05:39] VITALS: BP 112/59
[2017-05-20 06:24] LABS: MEAN PLATELET VOLUME 9.4 FL (7.4-10.4); RED BLOOD COUNT 3.47 10^6/uL (4.35-5.85); RED CELL DISTRIBUTION WIDTH 14.9 % (10.0-14.5); WHITE BLOOD COUNT 11.2 10^3/uL (4.3-11.0)
[2017-05-20 06:32] LABS: INR 3.1 (0.8-1.4)
[2017-05-20 06:39] LABS: ALANINE AMINOTRANSFERASE 81 U/L (0-55); ANION GAP 6 MMOL/L (5-14); ASPARTATE AMINO TRANSFERASE 42 U/L (5-34); BLOOD UREA NITROGEN 7 MG/DL (7-18); BUN/CREATININE RATIO 13; CALCIUM 7.5 MG/DL (8.5-10.1); CARBON DIOXIDE 27 MMOL/L (21-32); CHLORIDE 106 MMOL/L (98-107); CREATININE SERUM 0.55 MG/DL (0.60-1.30); GFR ESTIMATED > 60; GLUCOSE 70 MG/DL (70-105); MAGNESIUM 1.5 MG/DL (1.8-2.4); POTASSIUM 3.4 MMOL/L (3.6-5.0); SODIUM 139 MMOL/L (135-145); TOTAL PROTEIN 4.2 GM/DL (6.4-8.2)
[2017-05-20 06:47] LABS: ALBUMIN 2.3 GM/DL (3.2-4.5); BILIRUBIN,TOTAL 0.4 MG/DL (0.1-1.0)
[2017-05-20] MEDS: PANTOPRAZOLE 40 MG/10 ML (PROTONIX) VIAL IV SCH ×2 (08:20→20:26)
[2017-05-20] MEDS: meTOprolol SUCCINATE 100 MG (TOPROL XL) TAB PO SCH (08:20)
[2017-05-20] MEDS: GABAPENTIN 100 MG (NEURONTIN) CAP PO SCH ×2 (08:20→20:27)
[2017-05-20] MEDS: PIPERACILLIN/TAZOBACTAM 4.5 GM/NS 100 ML IVPB IV SCH ×4 (08:20→17:32)
[2017-05-20] MEDS: LOSARTAN 25 MG (COZAAR) TAB PO SCH (08:20)
[2017-05-20] MEDS: CALCIUM CARBONATE 600 MG (CALCARB) TAB PO SCH ×3 (08:20→17:33)
[2017-05-20] MEDS: MYRBETRIQ 50 MG TAB PO SCH (08:22)
--- NOTE | 2017-05-20 08:44 | Progress Note (SOAP) ---
Subjective Date Seen by Provider: May 20, 2017 Time Seen by Provider: 08:41 Subjective/Events-last exam PT REPORTS THAT SHE IS STILL FEELING FATIGUED. SHE STATES THAT SHE IS FEELING LIKE HER APPETITE IS SLIGHTLY BETTER AT THIS TIME. Review of Systems General: No Chills, Fatigue HEENT: No Head Aches Pulmonary: No Dyspnea, No Cough Cardiovascular: No: Chest Pain Gastrointestinal: Nausea Genitourinary: No Dysuria Neurological: Weakness, No: Confusion Objective Exam Vital Signs Date Time Temp Pulse Resp B/P (MAP) Pulse Ox O2 Delivery O2 Flow Rate FiO2 05/20/17 05:39 98.1 87 18 112/59 97 Nasal Cannula 2.00 05/20/17 03:00 97.8 05/20/17 01:40 100.1 05/20/17 01:00 100.1 05/20/17 00:06 100.7 05/20/17 00:00 100.7 05/19/17 21:00 96 Nasal Cannula 2.00 05/19/17 18:00 99.2 87 20 116/65 96 Room Air 05/19/17 15:46 Nasal Cannula 2.00 05/19/17 15:30 Nasal Cannula 2.00 05/19/17 15:11 100.8 05/19/17 15:08 100.4 05/19/17 09:30 98.6 88 20 128/68 91 Room Air Capillary Refill : General Appearance: No Apparent Distress, WD/WN HEENT: PERRL/EOMI Neck: Supple Respiratory: Chest Non Tender, No Accessory Muscle Use, Decreased Breath Sounds (IN BASES) Cardiovascular: Regular Rate, Rhythm, Systolic Murmur Gastrointestinal: normal bowel sounds, non tender, soft Extremity: Pedal Edema Neurologic/Psychiatric: Alert, Oriented x3, No Motor/Sensory Deficits, Normal Mood/Affect Skin: Warm/Dry Lymphatic: No Adenopathy Results Lab Laboratory Tests 05/20/17 06:02: White Blood Count 11.2H, Red Blood Count 3.47L, Hemoglobin 9.5L, Hematocrit 31L , Mean Corpuscular Volume 89, Mean Corpuscular Hemoglobin 27, Mean Corpuscular Hemoglobin Concent 31L, Red Cell Distribution Width 14.9H, Platelet Count 213, Mean Platelet Volume 9.4, Prothrombin Time 32.0H, INR Comment 3.1H, Sodium Level 139, Potassium Level 3.4L, Chloride Level 106, Carbon Dioxide Level 27, Anion Gap 6, Blood Urea Nitrogen 7, Creatinine 0.55L, Estimat Glomerular Filtration Rate > 60, BUN/Creatinine Ratio 13, Glucose Level 70, Calcium Level 7.5L, Magnesium Level 1.5L, Total Bilirubin 0.4, Aspartate Amino Transf (AST/ SGOT) 42H, Alanine Aminotransferase (ALT/SGPT) 81H, Alkaline Phosphatase 107, Total Protein 4.2L, Albumin 2.3L Assessment/Plan Assessment/Plan Assess & Plan/Chief Complaint SUPRA-THERAPEUTIC INR - UNABLE TO CALCULATE CHRONIC ANTICOAGULATION URINARY TRACT INFECTION BACK PAIN GENERALIZED WEAKNESS/MALAISE RECENT FALL AT HOME DEMENTIA HYPERTENSION PLEURAL EFFUSION NAUSEA ABDOMINAL PAIN ELEVATED LFT'S TRANSIENT FEVERS SUPRA-THERAPEUTIC INR - RESOLVED AFTER VITAMIN K - - CONTINUE TO MONITOR INR. 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 URINARY TRACT INFECTION - ON ANTIBIOTICS. BACK PAIN - VOLTAREN GEL, IV PAIN MEDICATION. GENERALIZED WEAKNESS/MALAISE - STARTED PHYSICAL THERAPY. ABDOMINAL PAIN - WITH ELEVATED LFT'S - CHECKED CT OF ABDOMEN AND PELVIS -LIVER AND PANCREAS WERE BENIGN EXCEPT FOR SLIGHT BILIARY DILATION - MONITOR FEVERS. START ON CARAFATE RECENT FALL AT HOME - WILL NEED PT FOR GAIT TRAINING DEMENTIA - STABLE HYPERTENSION- CHRONIC - RESTARTED HOME MEDICATIONS. INTERMITTENT FEVERS - CHECK TICK PANEL - STARTED ON DOXYCYCLINE MALLORIE CONTRERAS MD May 20, 2017 08:44
[2017-05-20] MEDS: DICLOFENAC 1% GEL 100 GM (VOLTAREN) TUBE TP SCH ×4 (09:09→21:28)
[2017-05-20] MEDS: DRONABINOL 2.5 MG (MARINOL) CAP PO SCH ×2 (11:33→15:31)
[2017-05-20] MEDS: DOXYCYCLINE INJECTION 100 MG in NS (IVPB) 100 ML IV SCH ×2 (11:45→22:47)
--- NOTE | 2017-05-20 11:47 | Physical Therapy Daily Note ---
PT Daily Note-Current Subjective Pt sitting at EOB just finishing with OT upon arrival. Pt agrees to PT for walking but reports a little fatigued. Pain Location: No Pain Reported Mental Status Patient Orientation: Person, Place, Situation Attachments: Other-See Comments (New Midline just put in.) Transfers Functional [place] Measure 0=Not Assessed/NA 4=Minimal Assistance 1=Total Assistance 5=Supervision or Setup 2=Maximal Assistance 6=Modified [place] 3=Moderate Assistance 7=Complete IndependenceIRFPAI Quality Coding Scale 6 Independent with activity with or without an assistive device 5 Patient requires set up or clean up by helper. Patient completes activity by themselves 4 Supervision or touching assist (CGA). [place] provide cues , steadying assist 3 The helper provides less than half the effort to complete the activity 2 The helper provides more than half the effort to complete the activity 1 Dependent. The helper does all the effort to complete an activity 7 Patient refused to complete or attempt activity 9 The patient did not perform the activity before the current illness or injury 88 Not attempted due to Medical conditions or safety concerns Scootin Sit to/from Stand: 5 Sit to Stand (QC): 5 Weight Bearing Right Lower Extremity: Right Weight Bearing/Tolerated Left Lower Extremity: Left Weight Bearing/Tolerated Gait Training Does the Patient Walk?: Yes Distance (FIM): 9=757-67 ft Distance: 125' Walk 50 ft with 2 Turns(QC): 5 Gait Level of Assist: 5 Gait Assistive Device: FWW Pt has slow but steady isabela, no LOB. Wheelchair Training Does the Pt Use a Wheelchair?: No Treatments Pt transferred from EOB to standing using FWW at SBA. Pt ambulated in hallway using FWW at close SBA before returning to room to rest in recliner. Pt rested in recliner with all needs met at end of tx. Assessment Current Status: Good Progress Pt ambulated well and gait had normalized but will still fatigue and need rest break. PT Mortising Machine Operator Goals Mortising Machine Operator Goals PT Mortising Machine Operator Goals Time Frame: May 29, 2017 Transfers (B,C,W/C) (FIM): 6 Sit to Lying (QC): 5 Lying-Sitting on Side/Bed(QC): 5 Sit to Stand (QC): 5 Rollin Chair/Xht-tn-Ybuum Xfer(QC): 5 Does the Patient Walk: Yes Gait (FIM): 6 Gait distance (FIM): 3=150 ft Distance: >300' Walk 50ft with 2 Turns (QC): 5 Walk 150 ft (QC): 5 Gait Level of Assist: 6 Gait Assistive Device: FWW PT Plan Problem List Problem List: Activity Tolerance, Functional Strength, Gait Treatment/Plan Treatment Plan: Continue Plan of Care Treatment Plan: Bed Mobility, Education, Functional Activity Tushar, Functional Strength, Gait, Safety, Therapeutic Exercise, Transfers Treatment Duration: May 29, 2017 Frequency: 11 times per week Estimated Hrs Per Day: .5 hour per day Patient and/or Family Agrees t: Yes Safety Risks/Education Patient Education: Gait Training, Transfer Techniques, Correct Positioning Teaching Recipient: Patient, Family Teaching Methods: Discussion Response to Teaching: Verbalize Understanding Time/GCodes Time In: 1130 Time Out: 1145 Total Billed Treatment Time: 15 Total Billed Treatment visit, GT (15m) MAHSA VALENZUELA SKIN PASS OPERATOR May 20, 2017 11:47
--- NOTE | 2017-05-20 12:02 | Occupational Ther Daily Note ---
OT Current Status-Daily Note Subjective Pt in bed, agrees to therapy. Would like to shower today. No c/o pain. Mental Status/Objective Functional [place] Measure 0=Not Assessed/NA 4=Minimal Assistance 1=Total Assistance 5=Supervision or Setup 2=Maximal Assistance 6=Modified [place] 3=Moderate Assistance 7=Complete [place] ADL-Treatment Pt supine to sit with supervision. Sit to stand from raised bed with SBA. Gait to restroom with FWW. Transfer to shower bench with SBA. Pt able to wash upper body with SBA. Pt washed lower body with SBA. Stood with CGA for balance while washing buttocks and tahmina area. Pt donned button up shirt with assistance for buttons. Pt required minimal assistance to start underwear and pants over feet, then able to pull pants up the remainder of the way. Assist to don socks. Pt transferred to toilet with SBA. Pt able to complete toileting hygiene and clothing management with SBA. Minimal assistance required to stand from toilet secondary to fatigue. Pt transferred to EOB with SBA. Pt sitting EOB with PT present after session. Functional [place] Measure 0=Not Assessed/NA 4=Minimal Assistance 1=Total Assistance 5=Supervision or Setup 2=Maximal Assistance 6=Modified [place] 3=Moderate Assistance 7=Complete IndependenceIRFPAI Quality Coding Scale 6 Independent with activity with or without an assistive device 5 Patient requires set up or clean up by helper. Patient completes activity by themselves 4 Supervision or touching assist (CGA). [place] provide cues , steadying assist 3 The helper provides less than half the effort to complete the activity 2 The helper provides more than half the effort to complete the activity 1 Dependent. The helper does all the effort to complete an activity 7 Patient refused to complete or attempt activity 9 The patient did not perform the activity before the current illness or injury 88 Not attempted due to Medical conditions or safety concerns Bathing (FIM): 4 Upper Body (FIM): 4 Lower Body Dressing (FIM): 4 Toileting (FIM): 5 Toileting Hygiene (QC): 4 Toilet/Commode Transfer (FIM): 4 OT Short Term Goals Short Term Goals 1=Demonstrate adherence to instructed precautions during ADL tasks. 2=Patient will verbalize/demonstrate understanding of assistive devices/ modifications for ADL. 3=Patient will improve strength/tolerance for activity to enable patient to perform ADL's. OT Smoke And Flame Specialist Goals Smoke And Flame Specialist Goals Time Frame: Jun 02, 2017 Eating (FIM): 6 Eating (QC): 6 Groomin Oral Hygiene (QC): 6 Bathing(FIM): 5 Upper Body Dressing(FIM): 6 Lower Body Dressing(FIM): 6 Toileting(FIM): 6 Toileting Hygiene (QC): 6 Toilet/Commode Transfer(FIM): 6 Toilet/Commode Transfer (QC): 6 Additional Goals: 2-Verbalize Understanding, 3-ImproveStrength/Tushar 1=Demonstrate adherence to instructed precautions during ADL tasks. 2=Patient will verbalize/demonstrate understanding of assistive devices/ modifications for ADL. 3=Patient will improve strength/tolerance for activity to enable patient to perform ADL's. OT Education/Plan Problem List/Assessment Pt demonstrates decreased mobility, strength, activity tolerance, and ADL functioning. Pt to benefit from skilled OT intervention for ADL training, transfers, strengthening, and home safety education to maximize level of function and allow safe discharge home. Discharge Recommendations Plan/Recommendations: Continue POC Treatment Plan/Plan of Care Patient would benefit from OT for education, treatment and training to promote independence in ADL's, mobility, safety and/or upper extremity function for ADL' s. Plan of Care: ADL Retraining, Functional Mobility, UE Funct Exercise/Act Treatment Duration: Jun 02, 2017 Frequency: 5 times per week Estimated Hrs Per Day: .5 hour per day Rehab Potential: Good Time/GCodes Start Time: 10:55 Stop Time: 11:30 Total Time Billed (hr/min): 35 Billed Treatment Time 1 visit, ADLx2(35minutes) JULIA HUNTLEY OT May 20, 2017 12:02
[2017-05-20] MEDS: MAGNESIUM 1 GM/100 ML IVPB 100 ML IV SCH ×2 (12:43→13:41)
--- NOTE | 2017-05-20 14:56 | Physical Therapy Progress Note ---
Therapy Progress Note PT attempts to see pt at approx. 1425 and pt & family report pt has been very cold and is shaking. Nursing got the pt a couple of warm blankets to help pt warm up. PT will return shortly to check pt. PT returns approx. 1450 & Nurse had removed warm blankets and given pt Tylenol. Pt had just fallen asleep and family asked that pt not be woken. PT will return to check on pt in am. 1 visit, no tx MAHSA VALENZUELA PTA May 20, 2017 14:56
[2017-05-20 19:48] VITALS: BP 146/79
--- NOTE | 2017-05-20 20:50 | Diagnostic Imaging Report ---
INDICATION: Elevated temperature and weakness COMPARISON: 05/14/2017 FINDINGS: Upright portable view of the chest is obtained. Heart size is enlarged but unchanged. The pulmonary vessels unremarkable. Postoperative changes in the mediastinum are stable. There is no pneumothorax suspected. Linear atelectasis in the right upper lobe is similar to the prior study with some new minimal linear atelectasis seen within the lateral right midlung. There is also increasing density in the lateral right lung base concerning for developing effusion. There may be also developing minimal atelectasis and pleural fluid at the left lung base. IMPRESSION: 1. Increasing density at the lung bases right more so than left concerning for a developing trace effusions and atelectasis. 2. Persistent increasing atelectasis in the lateral right lung and upper lobes. Dictated by: Dictated on workstation # [id number]
[2017-05-20] MEDS ORDERED: VANCOMYCIN 1000 MG/VIAL ONE (21:02)
[2017-05-20] MEDS ORDERED: NS (IVPB) 250 ML ONE (21:02)
[2017-05-20] MEDS ORDERED: VANCOMYCIN INJECTION 1,000 MG in NS (IVPB) 250 ML IV ONE (21:15)
[2017-05-20] MEDS ORDERED: FUROSEMIDE 40 MG/4 ML INJ (LASIX) IVP ONE (21:15)
[2017-05-20 22:13] LABS: BILIRUBIN,URINE NEGATIVE (NEGATIVE); KETONES,URINE NEGATIVE (NEGATIVE); LEUKOCYTE ESTERASE ,URINE NEGATIVE (NEGATIVE); NITRITE,URINE NEGATIVE (NEGATIVE); PH,URINE 6 (5-9); PROTEIN,URINE 1+ (NEGATIVE); UROBILINOGEN,URINE NORMAL (NORMAL)
[2017-05-21] MEDS: PIPERACILLIN/TAZOBACTAM 4.5 GM/NS 100 ML IVPB IV SCH ×2 (00:36)
[2017-05-21] MEDS: ACETAMINOPHEN 325 MG TABLET/CAPLET (TYLENOL) PO PRN ×2 (02:19→16:01)
[2017-05-21] MEDS: NS W/KCL 20 MEQ/L 1,000 ML IV SCH ×2 (02:20→22:26)
[2017-05-21] MEDS: LEVOTHYROXINE 112 MCG (LEVOTHROID) TAB PO SCH (05:33)
[2017-05-21] MEDS: CATHETER FLUSH 10 ML SYR IV SCH ×3 (05:33→20:56)
[2017-05-21] MEDS: LEVOTHYROXINE 25 MCG (LEVOTHROID) TAB PO SCH (05:33)
[2017-05-21] MEDS: SUCRALFATE 1 GM (CARAFATE) TAB PO SCH ×4 (05:33→20:45)
[2017-05-21 05:35] LABS: LYME AB G M 0.01 Index (0.00-0.89)
[2017-05-21 05:51] LABS: MEAN PLATELET VOLUME 9.1 FL (7.4-10.4); RED BLOOD COUNT 3.27 10^6/uL (4.35-5.85); RED CELL DISTRIBUTION WIDTH 15.1 % (10.0-14.5); WHITE BLOOD COUNT 12.5 10^3/uL (4.3-11.0)
[2017-05-21 06:01] LABS: INR 2.7 (0.8-1.4); PROTHROMBIN TIME PATIENT 28.3 SEC (12.2-14.7)
[2017-05-21 06:14] LABS: ALANINE AMINOTRANSFERASE 57 U/L (0-55); ALBUMIN 2.2 GM/DL (3.2-4.5); ANION GAP 6 MMOL/L (5-14); ASPARTATE AMINO TRANSFERASE 28 U/L (5-34); BILIRUBIN,TOTAL 0.4 MG/DL (0.1-1.0); BLOOD UREA NITROGEN 7 MG/DL (7-18); BUN/CREATININE RATIO 11; CALCIUM 7.3 MG/DL (8.5-10.1); CARBON DIOXIDE 28 MMOL/L (21-32); CHLORIDE 104 MMOL/L (98-107); CREATININE SERUM 0.63 MG/DL (0.60-1.30); GFR ESTIMATED > 60; GLUCOSE 70 MG/DL (70-105); MAGNESIUM 1.4 MG/DL (1.8-2.4); POTASSIUM 3.3 MMOL/L (3.6-5.0); SODIUM 138 MMOL/L (135-145); TOTAL PROTEIN 4.4 GM/DL (6.4-8.2)
[2017-05-21 07:47] LABS: LYME AB INTERP Negative (Negative)
[2017-05-21 07:48] LABS: TULAREMIA ANTIBODY <1:20
[2017-05-21 08:31] VITALS: BP 117/69
[2017-05-21] MEDS: VANCOMYCIN 1250 MG/NS 250 ML IVPB IV SCH ×2 (08:31)
[2017-05-21] MEDS: DOXYCYCLINE 100 MG (VIBRAMYCIN) TABLET PO SCH ×2 (08:41→16:01)
[2017-05-21] MEDS: GABAPENTIN 100 MG (NEURONTIN) CAP PO SCH ×2 (08:41→20:45)
[2017-05-21] MEDS: CALCIUM CARBONATE 600 MG (CALCARB) TAB PO SCH ×3 (08:41→16:01)
[2017-05-21] MEDS: PANTOPRAZOLE 40 MG/10 ML (PROTONIX) VIAL IV SCH ×2 (08:41→20:45)
[2017-05-21] MEDS: meTOprolol SUCCINATE 100 MG (TOPROL XL) TAB PO SCH (08:41)
[2017-05-21] MEDS: LOSARTAN 25 MG (COZAAR) TAB PO SCH (08:41)
[2017-05-21] MEDS: MYRBETRIQ 50 MG TAB PO SCH (08:42)
[2017-05-21] MEDS: DICLOFENAC 1% GEL 100 GM (VOLTAREN) TUBE TP SCH ×4 (08:44→20:45)
[2017-05-21] MEDS ORDERED: PHARMACY TO DOSE IV SCH (09:00)
[2017-05-21] MEDS ORDERED: KETOROLAC 15 MG/ML VIAL IVP NR (09:15)
--- NOTE | 2017-05-21 09:30 | Progress Note (SOAP) ---
Subjective Date Seen by Provider: May 21, 2017 Time Seen by Provider: 09:10 Subjective/Events-last exam PT REPORTS THAT SHE IS FEELING POORLY THIS MORNING. SHE REPORTS THAT SHE IS NOT HAVING CHEST PAIN OR SHORTNESS OF BREATH, BUT IS FATIGUED, HAS FEVERS/CHILLS , FEELS COLD. SHE STATES THAT SHE DOES NOT HAVE ANY ABDOMINAL PAIN, NAUSEA, DIZZINESS. FAMILY REPORTS SIGNIFICANT FATIGUE AND WEAKNESS, UNABLE TO STAND ON HER OWN LAST NIGHT. Review of Systems General: Chills, Night Sweats, Fatigue HEENT: No Head Aches, No Dysphasia, No Sinus Congestion Pulmonary: No Dyspnea, Cough Cardiovascular: No: Chest Pain, Palpitations Gastrointestinal: No: Nausea, Abdominal Pain Genitourinary: Frequency Neurological: Weakness, No: Confusion Objective Exam Vital Signs Date Time Temp Pulse Resp B/P (MAP) Pulse Ox O2 Delivery O2 Flow Rate FiO2 05/21/17 08:31 96.8 85 18 117/69 97 Nasal Cannula 0.50 05/21/17 04:10 97.4 05/21/17 03:15 99.2 05/21/17 00:10 99.4 05/20/17 22:49 100.5 05/20/17 21:33 101.2 05/20/17 20:35 102.2 05/20/17 19:48 101.3 22 20 146/79 90 Room Air 05/20/17 19:40 Nasal Cannula 2.00 05/20/17 19:00 101.0 05/20/17 14:35 101.4 05/20/17 11:17 Nasal Cannula 2.00 Capillary Refill : General Appearance: WD/WN, Mild Distress HEENT: PERRL/EOMI Neck: Full Range of Motion, Supple Respiratory: Chest Non Tender, Decreased Breath Sounds (IN BASES - FAINT CRACKLES LEFT BASE) Cardiovascular: Regular Rate, Rhythm, Systolic Murmur (II/) Gastrointestinal: normal bowel sounds, non tender, soft, no organomegaly Extremity: Pedal Edema (TRACE) Neurologic/Psychiatric: Alert, Oriented x3, Normal Mood/Affect Skin: Warm/Dry Lymphatic: No Adenopathy Results Lab Laboratory Tests 05/20/17 09:34: Vitamin B12 Level 1156H, Lyme Disease Screen IgG & IgM Ab 0.01, Lyme Antibody Interpretation Negative, [place] Antibody <1:20 05/20/17 22:05: Urine Color YELLOW, Urine Clarity CLEAR, Urine pH 6, Urine Specific [place] 1.010L, Urine Protein 1+H, Urine Glucose (UA) NEGATIVE, Urine Ketones NEGATIVE, Urine Nitrite NEGATIVE, Urine Bilirubin NEGATIVE, Urine Urobilinogen NORMAL, Urine Leukocyte Esterase NEGATIVE, Urine RBC (Auto) NEGATIVE, Urine RBC NONE, Urine WBC 2-5, Urine Squamous Epithelial Cells 2-5, Urine Crystals NONE, Urine Bacteria TRACE, Urine Casts NONE, Urine Mucus NEGATIVE, Urine Culture Indicated NO 05/21/17 05:40: White Blood Count 12.5H, Red Blood Count 3.27L, Hemoglobin 9.0L, Hematocrit 29L , Mean Corpuscular Volume 89, Mean Corpuscular Hemoglobin 28, Mean Corpuscular Hemoglobin Concent 31L, Red Cell Distribution Width 15.1H, Platelet Count 204, Mean Platelet Volume 9.1, Prothrombin Time 28.3H, INR Comment 2.7H, Sodium Level 138, Potassium Level 3.3L, Chloride Level 104, Carbon Dioxide Level 28, Anion Gap 6, Blood Urea Nitrogen 7, Creatinine 0.63, Estimat Glomerular Filtration Rate > 60, BUN/Creatinine Ratio 11, Glucose Level 70, Calcium Level 7.3L, Magnesium Level 1.4L, Total Bilirubin 0.4, Aspartate Amino Transf (AST/ SGOT) 28, Alanine Aminotransferase (ALT/SGPT) 57H, Alkaline Phosphatase 111, Total Protein 4.4L, Albumin 2.2L Assessment/Plan Assessment/Plan Assess & Plan/Chief Complaint SUPRA-THERAPEUTIC INR CHRONIC ANTICOAGULATION URINARY TRACT INFECTION BACK PAIN GENERALIZED WEAKNESS/MALAISE RECENT FALL AT HOME DEMENTIA HYPERTENSION PLEURAL EFFUSION NAUSEA ABDOMINAL PAIN ELEVATED LFT'S TRANSIENT FEVERS SUPRA-THERAPEUTIC INR - RESOLVED AFTER VITAMIN K - - CONTINUE TO MONITOR INR. 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 BACK PAIN - VOLTAREN GEL, IV PAIN MEDICATION. GENERALIZED WEAKNESS/MALAISE - STARTED PHYSICAL THERAPY. ABDOMINAL PAIN - WITH ELEVATED LFT'S - CHECKED CT OF ABDOMEN AND PELVIS -LIVER AND PANCREAS WERE BENIGN EXCEPT FOR SLIGHT BILIARY DILATION - MONITOR FEVERS. STARTED ON CARAFATE - ABDOMINAL PAIN IMPROVED. RECENT FALL AT HOME - WILL NEED PT FOR GAIT TRAINING DEMENTIA - STABLE HYPERTENSION- CHRONIC - RESTARTED HOME MEDICATIONS. INTERMITTENT FEVERS - CHECK TICK PANEL - STILL PENDING - STARTED ON DOXYCYCLINE - CHANGED TO ORAL ON 05/21/17. - FEVER SPIKED LAST NIGHT - STARTED ON VANCOMYCIN YESTERDAY EVENING - MONITOR BLOOD CULTURES. REPEAT CHEST XRAY IN MORNING. CHECK FLU SWAB MALLORIE CONTRERAS MD May 21, 2017 09:30
[2017-05-21] MEDS: POTASSIUM CL 10MEQ/50ML IVPB 50 ML IV SCH ×2 (11:20→12:06)
--- NOTE | 2017-05-21 11:31 | Physical Therapy Progress Note ---
Therapy Progress Note Patient has declined PT intervention x 2 this a.m. Per RN, patient has required more assistance on this date due to weakness and over all fatigue. MARIYA MAE PT May 21, 2017 11:31
--- NOTE | 2017-05-21 11:42 | Occ Therapy Progress Note ---
Therapy Progress Note Attempted treatment this date. Pt. asleep. Family present in room and request to let pt. sleep. Will attempt back later. 1, visit 1105 SHANNEN IGNACIO OT May 21, 2017 11:42
[2017-05-21] MEDS ORDERED: FUROSEMIDE 40 MG/4 ML INJ (LASIX) IVP NR (12:00)
[2017-05-21] MEDS: MAGNESIUM 1 GM/100 ML IVPB 100 ML IV SCH ×4 (12:07→16:00)
[2017-05-21 13:18] LABS: EHRLICHIA CHAFFEENSIS G ABY <1:16 (<1:16)
--- NOTE | 2017-05-21 13:48 | Physical Therapy Daily Note ---
PT Daily Note-Current Subjective Patient just coming out of the restroom and agrees to PT. Pain Location: No Pain Reported Mental Status Patient Orientation: Normal For Age Attachments: IV Transfers Functional [place] Measure 0=Not Assessed/NA 4=Minimal Assistance 1=Total Assistance 5=Supervision or Setup 2=Maximal Assistance 6=Modified [place] 3=Moderate Assistance 7=Complete IndependenceIRFPAI Quality Coding Scale 6 Independent with activity with or without an assistive device 5 Patient requires set up or clean up by helper. Patient completes activity by themselves 4 Supervision or touching assist (CGA). [place] provide cues , steadying assist 3 The helper provides less than half the effort to complete the activity 2 The helper provides more than half the effort to complete the activity 1 Dependent. The helper does all the effort to complete an activity 7 Patient refused to complete or attempt activity 9 The patient did not perform the activity before the current illness or injury 88 Not attempted due to Medical conditions or safety concerns Transfers (B, C, W/C) (FIM): 4 Scootin Sit to/from Stand: 4 Sit to Stand (QC): 3 Weight Bearing Right Lower Extremity: Right Weight Bearing/Tolerated Left Lower Extremity: Left Weight Bearing/Tolerated Gait Training Does the Patient Walk?: Yes Gait (FIM): 4 Distance (FIM): 3=150 ft Distance: 175' Walk 50 ft with 2 Turns(QC): 3 Walk 150 ft (QC): 3 Gait Level of Assist: 4 Gait Persons Needed: 1 Gait Assistive Device: FWW very slow gait sequence with multiple standing recovery periods due to SOA/ fatigue Assessment OT in for treatment. Patient continues to fatigue with minimal activity. PT Deck Builder Goals Fdc Goals PT Fdc Goals Time Frame: May 29, 2017 Transfers (B,C,W/C) (FIM): 6 Sit to Lying (QC): 5 Lying-Sitting on Side/Bed(QC): 5 Sit to Stand (QC): 5 Rollin Chair/[id number] Xfer(QC): 5 Does the Patient Walk: Yes Gait (FIM): 6 Gait distance (FIM): 3=150 ft Distance: >300' Walk 50ft with 2 Turns (QC): 5 Walk 150 ft (QC): 5 Gait Level of Assist: 6 Gait Assistive Device: FWW PT Plan Treatment/Plan Treatment Plan: Continue Plan of Care Treatment Plan: Bed Mobility, Education, Functional Activity Tushar, Functional Strength, Gait, Safety, Therapeutic Exercise, Transfers Treatment Duration: May 29, 2017 Frequency: 11 times per week Estimated Hrs Per Day: .5 hour per day Patient and/or Family Agrees t: Yes Time/GCodes Time In: 1315 Time Out: 1330 Total Billed Treatment Time: 15 Total Billed Treatment 1 visit GT 15 min MARIYA MAE PT May 21, 2017 13:48
--- NOTE | 2017-05-21 15:21 | Occupational Ther Daily Note ---
OT Current Status-Daily Note Subjective Granddaughter asks about possible lymphedema massage and compression garments for left UE. Pt. on antibiotic for unknown fever. OT educated family that lymphedema massage and garments contraindicated when infection involved, as this can be pushed to heart. Will continue to monitor this however. Appearance Pt. returning from walk with PT. Agrees to work with OT. Mental Status/Objective Patient Orientation: Person, Place Functional [place] Measure 0=Not Assessed/NA 4=Minimal Assistance 1=Total Assistance 5=Supervision or Setup 2=Maximal Assistance 6=Modified [place] 3=Moderate Assistance 7=Complete [place] Attachments: IV ADL-Treatment Functional [place] Measure 0=Not Assessed/NA 4=Minimal Assistance 1=Total Assistance 5=Supervision or Setup 2=Maximal Assistance 6=Modified [place] 3=Moderate Assistance 7=Complete IndependenceIRFPAI Quality Coding Scale 6 Independent with activity with or without an assistive device 5 Patient requires set up or clean up by helper. Patient completes activity by themselves 4 Supervision or touching assist (CGA). [place] provide cues , steadying assist 3 The helper provides less than half the effort to complete the activity 2 The helper provides more than half the effort to complete the activity 1 Dependent. The helper does all the effort to complete an activity 7 Patient refused to complete or attempt activity 9 The patient did not perform the activity before the current illness or injury 88 Not attempted due to Medical conditions or safety concerns Pt. and family state that she has already had a shower today. Has just returned from toileting task, walk with PT, and is dressed. Does agree to bilateral UE exercises for continued UE strengthening for daily tasks. Pt. completed 20 bilateral hand squeezes with yellow therapy sponge, and then 3 exercises x 10 reps x 2 sets with red theraband in all planes. Pt. does require rest breaks throughout treatment. Theraband and hand sponge left in room and pt. is educated to continue exercises on her own. Pt. verbalizes understanding. Education OT Patient Education: Correct positioning, Exercise program, Home exercise program, Modified ADL techniques, Progress toward Goal/Update tx plan, Purpose of tx/functional activities, Reviewed precautions, Rehab process, Transfer techniques Teaching Recipient: Patient Teaching Methods: Demonstration, Discussion Response to Teaching: Verbalize Understanding, Return Demonstration OT Short Term Goals Short Term Goals 1=Demonstrate adherence to instructed precautions during ADL tasks. 2=Patient will verbalize/demonstrate understanding of assistive devices/ modifications for ADL. 3=Patient will improve strength/tolerance for activity to enable patient to perform ADL's. OT Retirement Goals Senior Radiation Therapist Goals Time Frame: Jun 02, 2017 Eating (FIM): 6 Eating (QC): 6 Groomin Oral Hygiene (QC): 6 Bathing(FIM): 5 Upper Body Dressing(FIM): 6 Lower Body Dressing(FIM): 6 Toileting(FIM): 6 Toileting Hygiene (QC): 6 Toilet/Commode Transfer(FIM): 6 Toilet/Commode Transfer (QC): 6 Additional Goals: 2-Verbalize Understanding, 3-ImproveStrength/Tushar 1=Demonstrate adherence to instructed precautions during ADL tasks. 2=Patient will verbalize/demonstrate understanding of assistive devices/ modifications for ADL. 3=Patient will improve strength/tolerance for activity to enable patient to perform ADL's. OT Education/Plan Problem List/Assessment Assessment: Decreased Activ Tolerance, Decreased UE Strength, Dependent Transfers, Impaired I ADL's, Impaired Self-Care Skills, Restricted Funct UE ROM Pt demonstrates decreased mobility, strength, activity tolerance, and ADL functioning. Pt to benefit from skilled OT intervention for ADL training, transfers, strengthening, and home safety education to maximize level of function and allow safe discharge home. Discharge Recommendations Plan/Recommendations: Continue POC Therapy D/C Recommendations: Home w/ Family Support Treatment Plan/Plan of Care Treatment,Training & Education: Yes Patient would benefit from OT for education, treatment and training to promote independence in ADL's, mobility, safety and/or upper extremity function for ADL' s. Plan of Care: ADL Retraining, Functional Mobility, UE Funct Exercise/Act Treatment Duration: Jun 02, 2017 Frequency: 5 times per week Estimated Hrs Per Day: .5 hour per day Agreement: Yes Rehab Potential: Good Time/GCodes Start Time: 13:30 Stop Time: 14:00 Total Time Billed (hr/min): 30 Billed Treatment Time 1, EX x 2 SHANNEN IGNACIO OT May 21, 2017 15:20
[2017-05-21 18:30] VITALS: BP 113/69
[2017-05-21] MEDS: KETOROLAC 15 MG/ML VIAL IVP PRN (20:45)
[2017-05-22] MEDS: ACETAMINOPHEN 325 MG TABLET/CAPLET (TYLENOL) PO PRN ×2 (02:38→17:14)
[2017-05-22] MEDS: CATHETER FLUSH 10 ML SYR IV SCH ×3 (06:02→20:54)
[2017-05-22] MEDS: SUCRALFATE 1 GM (CARAFATE) TAB PO SCH ×4 (06:27→20:54)
[2017-05-22] MEDS: LEVOTHYROXINE 25 MCG (LEVOTHROID) TAB PO SCH (06:27)
[2017-05-22] MEDS: LEVOTHYROXINE 112 MCG (LEVOTHROID) TAB PO SCH (06:27)
[2017-05-22] MEDS: CALCIUM CARBONATE 600 MG (CALCARB) TAB PO SCH ×3 (06:28→16:02)
[2017-05-22 06:57] LABS: IGG ROCKY MOUNTAIN SPOTTED FEV <1:16 (<1:16); IGM ROCKY MOUNTAIN SPOTTED FEV <1:10 (<1:10)
[2017-05-22] MEDS ORDERED: TROUGH ORDER-PHARMACY XX ONE (07:00)
[2017-05-22 07:03] LABS: UIBC 156 ug/dL (55-450)
[2017-05-22 07:18] LABS: BASOPHILS % (AUTO) 0 % (0-10); EOSINOPHILS # (AUTO) 0.2 10^3/uL (0.0-0.3); EOSINOPHILS % (AUTO) 1 % (0-10); LYMPHOCYTES # (AUTO) 0.8 X 10^3 (1.0-4.0); LYMPHOCYTES % (AUTO) 8 % (12-44); MEAN CORPUSCULAR HEMOGLOBIN 28 PG (25-34); MEAN CORPUSCULAR HGB CONC 31 G/DL (32-36); MEAN CORPUSCULAR VOLUME 89 FL (80-99); MONOCYTES # (AUTO) 0.9 X 10^3 (0.0-1.0); MONOCYTES % (AUTO) 9 % (0-12); NEUTROPHILS # (AUTO) 8.8 X 10^3 (1.8-7.8); NEUTROPHILS % (AUTO) 82 % (42-75); PLATELET COUNT 211 10^3/uL (130-400); RED BLOOD COUNT 3.13 10^6/uL (4.35-5.85); WHITE BLOOD COUNT 10.7 10^3/uL (4.3-11.0)
[2017-05-22 07:30] LABS: INR 2.5 (0.8-1.4); PROTHROMBIN TIME PATIENT 26.7 SEC (12.2-14.7)
[2017-05-22] MEDS: DOXYCYCLINE 100 MG (VIBRAMYCIN) TABLET PO SCH (07:43)
[2017-05-22 07:44] LABS: ALANINE AMINOTRANSFERASE 41 U/L (0-55); ALBUMIN 2.1 GM/DL (3.2-4.5); ANION GAP 5 MMOL/L (5-14); ASPARTATE AMINO TRANSFERASE 20 U/L (5-34); BILIRUBIN,TOTAL 0.3 MG/DL (0.1-1.0); BLOOD UREA NITROGEN 10 MG/DL (7-18); BUN/CREATININE RATIO 17; CALCIUM 7.3 MG/DL (8.5-10.1); CARBON DIOXIDE 29 MMOL/L (21-32); CHLORIDE 105 MMOL/L (98-107); CREATININE SERUM 0.59 MG/DL (0.60-1.30); GFR ESTIMATED > 60; GLUCOSE 61 MG/DL (70-105); POTASSIUM 3.5 MMOL/L (3.6-5.0); SODIUM 139 MMOL/L (135-145); TOTAL PROTEIN 4.2 GM/DL (6.4-8.2)
[2017-05-22 08:00] VITALS: BP 117/59
[2017-05-22] MEDS: GABAPENTIN 100 MG (NEURONTIN) CAP PO SCH ×2 (08:23→20:54)
[2017-05-22] MEDS: PANTOPRAZOLE 40 MG/10 ML (PROTONIX) VIAL IV SCH ×2 (08:24→20:54)
[2017-05-22] MEDS: ASPIRIN E.C. 81 MG (ECOTRIN) TAB PO SCH (08:24)
[2017-05-22] MEDS: VANCOMYCIN 1250 MG/NS 250 ML IVPB IV SCH ×2 (08:24)
[2017-05-22] MEDS: LOSARTAN 25 MG (COZAAR) TAB PO SCH (08:24)
[2017-05-22] MEDS: meTOprolol SUCCINATE 100 MG (TOPROL XL) TAB PO SCH (08:24)
[2017-05-22] MEDS: MYRBETRIQ 50 MG TAB PO SCH (08:25)
[2017-05-22] MEDS: DICLOFENAC 1% GEL 100 GM (VOLTAREN) TUBE TP SCH ×4 (08:25→20:54)
--- NOTE | 2017-05-22 09:47 | Progress Note (SOAP) ---
Subjective Date Seen by Provider: May 22, 2017 Time Seen by Provider: 10:00 Subjective/Events-last exam PT REPORTS THAT SHE IS FEELING A LITTLE BETTER THIS MORNING HER FAMILY REPORTS THAT SHE SEEMS MORE ALERT AND IS MORE CONVERSANT THIS MORNING. SHE REPORTS THAT SHE IS STILL HAVING CHILLS, BUT THINKS IT IS BETTER THAN ADMISSION. FAMILY WITH NUMEROUS QUESTIONS THIS MORNING. THEY ARE QUESTIONING IF SHE NEEDS BREATHING TREATMENTS, IF SHE NEEDS ADVAIR ETC. Review of Systems General: Chills, No Night Sweats, Fatigue, Malaise HEENT: No Head Aches Pulmonary: No Dyspnea, No Cough Cardiovascular: No: Chest Pain, Palpitations Gastrointestinal: No: Nausea, Abdominal Pain Neurological: Weakness, Confusion Objective Exam Vital Signs Date Time Temp Pulse Resp B/P (MAP) Pulse Ox O2 Delivery O2 Flow Rate FiO2 05/22/17 08:00 98.1 82 20 117/59 96 Nasal Cannula 2.00 05/22/17 06:32 97.7 05/22/17 04:00 98.9 05/22/17 03:16 100.6 05/22/17 02:38 100.8 05/22/17 02:38 100.8 05/22/17 02:15 98.4 05/22/17 00:38 97.8 05/21/17 22:29 98.2 05/21/17 21:20 100.1 05/21/17 21:20 100.1 05/21/17 20:45 100.8 05/21/17 20:45 100.8 05/21/17 20:29 100.8 05/21/17 20:00 Nasal Cannula 2.00 05/21/17 18:30 99.7 98 16 113/69 92 Nasal Cannula 2.00 05/21/17 17:00 101.4 05/21/17 16:01 100.7 05/21/17 16:00 102.0 05/21/17 14:55 Nasal Cannula 0.50 05/21/17 11:01 96.7 Capillary Refill : Less Than 3 Seconds General Appearance: No Apparent Distress, WD/WN HEENT: PERRL/EOMI, Pharynx Normal Neck: Full Range of Motion, Supple Respiratory: Chest Non Tender, Decreased Breath Sounds (IN RIGHT BASE - CRACKLES IN RIGHT BASE) Cardiovascular: Regular Rate, Rhythm, Systolic Murmur Gastrointestinal: normal bowel sounds, non tender, soft Extremity: Normal Capillary Refill, No Pedal Edema Neurologic/Psychiatric: Alert, Oriented x3, Normal Mood/Affect Skin: Warm/Dry Lymphatic: No Adenopathy Results Lab Laboratory Tests 05/22/17 07:00: White Blood Count 10.7, Red Blood Count 3.13L, Hemoglobin 8.6L, Hematocrit 28L, Mean Corpuscular Volume 89, Mean Corpuscular Hemoglobin 28, Mean Corpuscular Hemoglobin Concent 31L, Red Cell Distribution Width 15.0H, Platelet Count 211, Mean Platelet Volume 9.0, Neutrophils (%) (Auto) 82H, Lymphocytes (%) (Auto) 8L , Monocytes (%) (Auto) 9, Eosinophils (%) (Auto) 1, Basophils (%) (Auto) 0, Neutrophils # (Auto) 8.8H, Lymphocytes # (Auto) 0.8L, Monocytes # (Auto) 0.9, Eosinophils # (Auto) 0.2, Basophils # (Auto) 0.0, Prothrombin Time 26.7H, INR Comment 2.5H, Sodium Level 139, Potassium Level 3.5L, Chloride Level 105, Carbon Dioxide Level 29, Anion Gap 5, Blood Urea Nitrogen 10, Creatinine 0.59L, Estimat Glomerular Filtration Rate > 60, BUN/Creatinine Ratio 17, Glucose Level 61L, Calcium Level 7.3L, Total Bilirubin 0.3, Aspartate Amino Transf (AST/SGOT) 20, Alanine Aminotransferase (ALT/SGPT) 41, Alkaline Phosphatase 103, Total Protein 4.2L, Albumin 2.1L, Vancomycin Level Trough 6.8L Microbiology 05/21/17 Influenza Types A,B Antigen (BORA) - Final, Complete Assessment/Plan Assessment/Plan Assess & Plan/Chief Complaint SUPRA-THERAPEUTIC INR CHRONIC ANTICOAGULATION URINARY TRACT INFECTION BACK PAIN GENERALIZED WEAKNESS/MALAISE RECENT FALL AT HOME DEMENTIA HYPERTENSION PLEURAL EFFUSION NAUSEA ABDOMINAL PAIN ELEVATED LFT'S TRANSIENT FEVERS SUPRA-THERAPEUTIC INR - RESOLVED AFTER VITAMIN K - - CONTINUE TO MONITOR INR. TODAY HER INR WAS 2.5, RESTART COUMADIN TODAY AT [facility] DAILY - DOSE STARTS [id number] TONIGHT. PNEUMONIA - STARTED PATIENT ON VANCOMYCIN. 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 BACK PAIN - VOLTAREN GEL, IV PAIN MEDICATION. GENERALIZED WEAKNESS/MALAISE - STARTED PHYSICAL THERAPY. ABDOMINAL PAIN - WITH ELEVATED LFT'S - CHECKED CT OF ABDOMEN AND PELVIS -LIVER AND PANCREAS WERE BENIGN EXCEPT FOR SLIGHT BILIARY DILATION - MONITOR FEVERS. STARTED ON CARAFATE - ABDOMINAL PAIN IMPROVED. RECENT FALL AT HOME - WILL NEED PT FOR GAIT TRAINING DEMENTIA - STABLE HYPERTENSION- CHRONIC - RESTARTED HOME MEDICATIONS. INTERMITTENT FEVERS - CHECKED TICK PANEL - NEGATIVE - STOP DOXYCYCLINE. CHECK FLU SWAB - NEGATIVE. IRON DEFICIENCY ANEMIA - STARTED ON KATIEOFER MALLORIE CONTRERAS MD May 22, 2017 09:47
[2017-05-22] MEDS ORDERED: IRON SUCROSE INJECTION 200 MG in NS (IVPB) 100 ML IV NR (09:58)
--- NOTE | 2017-05-22 10:02 | Diagnostic Imaging Report ---
Clinical indication: Patient with cough and fluid overload with fever. Exam: Chest x-ray PA and lateral views. Comparisons: Chest x-ray dated 05/20/2017. Findings: Lungs/pleura: Stable small bilateral pleural effusions (right side more than the left) and bibasilar atelectasis versus infiltrate. There is mild left basilar atelectasis which is stable. There are stable discoid atelectasis or scarring in the right upper lobe and left midlung field. Mediastinum: Unremarkable. Pulmonary vasculature: Unremarkable. Heart: Heart size within normal limits stable postop changes to the chest with sternotomy wires. Bones/extrathoracic soft tissue: There are hypertrophic spurs seen throughout the thoracic spine. Impression: 1: Stable chest x-ray exam with small bilateral pleural effusions and right lung base atelectasis versus infiltrate. 2: Stable atelectasis within both lungs. 3: Stable postop changes to the chest. Dictated by: Dictated on workstation # [id number]
[2017-05-22] MEDS: KETOROLAC 15 MG/ML VIAL IVP PRN (10:06)
[2017-05-22] MEDS: POLYETHYLENE GLYCOL 17 GM (MIRALAX) PACK PO SCH (10:06)
--- NOTE | 2017-05-22 10:14 | Occupational Ther Daily Note ---
OT Current Status-Daily Note Subjective Pt alert, lying in bed. Family present in room and asked if pt could have a shower because she sweated all night. Pt agreed to therapy. Pt c/o being uncomfortable, but no pain. Mental Status/Objective Patient Orientation: Person, Place, Time, Situation Functional [place] Measure 0=Not Assessed/NA 4=Minimal Assistance 1=Total Assistance 5=Supervision or Setup 2=Maximal Assistance 6=Modified [place] 3=Moderate Assistance 7=Complete [place] Attachments: IV ADL-Treatment Functional [place] Measure 0=Not Assessed/NA 4=Minimal Assistance 1=Total Assistance 5=Supervision or Setup 2=Maximal Assistance 6=Modified [place] 3=Moderate Assistance 7=Complete IndependenceIRFPAI Quality Coding Scale 6 Independent with activity with or without an assistive device 5 Patient requires set up or clean up by helper. Patient completes activity by themselves 4 Supervision or touching assist (CGA). [place] provide cues , steadying assist 3 The helper provides less than half the effort to complete the activity 2 The helper provides more than half the effort to complete the activity 1 Dependent. The helper does all the effort to complete an activity 7 Patient refused to complete or attempt activity 9 The patient did not perform the activity before the current illness or injury 88 Not attempted due to Medical conditions or safety concerns Bathing (FIM): 4 (Sitting on shower bench using hand held shower and grabbars pt completed a shower with min A. Pt fatigued quickly. Unable to reach lower legs and feet. Assist to stand then CGA for balance as pt cleansed buttocks/ tahmina area. Assist to wash and dry lower legs and feet.) Bathing Location: L Arm, R Arm, L Upper Leg, R Upper Leg, Chest, Abdomen, Buttocks, Perineal Area Lower Body Dressing (FIM): 3 (Assist to initiate clothing over feet then pt able to pull up legs and hike over hips with CGA for safety.) Toileting (FIM): 4 (CGA in standing to manipulate clothing. Able to cleanse self while sitting.) Toileting Hygiene (QC): 4 Transfers (B, C, W/C) (FIM): 4 (Assist to go from sit to stand then CGA for transfer with FWW.) Toilet/Commode Transfer (FIM): 4 (CGA using elevated toilet seat, FWW and grabbars, pt is able to transfer.) Toilet Transfer (QC): 4 Shower Transfer(FIM): 4 (Using FWW, shower bench and grabbars pt is able to complete with CGA.) Pt stated that she was fatigued after shower. Family present in room. After therapy, pt sitting in recliner with call light/phone in reach. All needs met in room. OT Short Term Goals Short Term Goals 1=Demonstrate adherence to instructed precautions during ADL tasks. 2=Patient will verbalize/demonstrate understanding of assistive devices/ modifications for ADL. 3=Patient will improve strength/tolerance for activity to enable patient to perform ADL's. OT Activity Leader Goals Fpc Goals Time Frame: Jun 02, 2017 Eating (FIM): 6 Eating (QC): 6 Groomin Oral Hygiene (QC): 6 Bathing(FIM): 5 Upper Body Dressing(FIM): 6 Lower Body Dressing(FIM): 6 Toileting(FIM): 6 Toileting Hygiene (QC): 6 Toilet/Commode Transfer(FIM): 6 Toilet/Commode Transfer (QC): 6 Additional Goals: 2-Verbalize Understanding, 3-ImproveStrength/Tushar 1=Demonstrate adherence to instructed precautions during ADL tasks. 2=Patient will verbalize/demonstrate understanding of assistive devices/ modifications for ADL. 3=Patient will improve strength/tolerance for activity to enable patient to perform ADL's. OT Education/Plan Problem List/Assessment Pt demonstrates decreased mobility, strength, activity tolerance, and ADL functioning. Pt to benefit from skilled OT intervention for ADL training, transfers, strengthening, and home safety education to maximize level of function and allow safe discharge home. Discharge Recommendations Plan/Recommendations: Continue POC Treatment Plan/Plan of Care Patient would benefit from OT for education, treatment and training to promote independence in ADL's, mobility, safety and/or upper extremity function for ADL' s. Plan of Care: ADL Retraining, Functional Mobility, UE Funct Exercise/Act Treatment Duration: Jun 02, 2017 Frequency: 5 times per week Estimated Hrs Per Day: .5 hour per day Agreement: Yes Rehab Potential: Good Time/GCodes Start Time: 09:19 Stop Time: 09:59 Total Time Billed (hr/min): 40 Billed Treatment Time 1 visit-ADL 3 (40 min) ROSIE MAZARIEGOS May 22, 2017 10:14
--- NOTE | 2017-05-22 11:27 | Physical Therapy Daily Note ---
PT Daily Note-Current Subjective Patient agrees to PT. Request to return to bed upon completion of therapy. Pain Numeric Pain Scale: 0-No Pain Location: No Pain Reported Mental Status Patient Orientation: Normal For Age Attachments: IV Transfers Functional [place] Measure 0=Not Assessed/NA 4=Minimal Assistance 1=Total Assistance 5=Supervision or Setup 2=Maximal Assistance 6=Modified [place] 3=Moderate Assistance 7=Complete IndependenceIRFPAI Quality Coding Scale 6 Independent with activity with or without an assistive device 5 Patient requires set up or clean up by helper. Patient completes activity by themselves 4 Supervision or touching assist (CGA). [place] provide cues , steadying assist 3 The helper provides less than half the effort to complete the activity 2 The helper provides more than half the effort to complete the activity 1 Dependent. The helper does all the effort to complete an activity 7 Patient refused to complete or attempt activity 9 The patient did not perform the activity before the current illness or injury 88 Not attempted due to Medical conditions or safety concerns Transfers (B, C, W/C) (FIM): 4 Scootin Roll Left to Right (QC): 4 Supine to/from Sit: 4 Sit to/from Stand: 4 Sit to Lying (QC): 3 Sit to Stand (QC): 3 Weight Bearing Right Lower Extremity: Right Weight Bearing/Tolerated Left Lower Extremity: Left Weight Bearing/Tolerated Gait Training Does the Patient Walk?: Yes Gait (FIM): 5 Distance (FIM): 3=150 ft Distance: 175' Walk 50 ft with 2 Turns(QC): 4 Walk 150 ft (QC): 4 Gait Level of Assist: 5 Gait Persons Needed: 1 Gait Assistive Device: FWW slow, steady 2 standing recovery periods due to fatigue Assessment Patient returned to bed with minimal assist due to weakness. Declined exercise this a.m. PT to increase activity as tolerated by patient. PT Project Development Coordinator Goals Mcc Goals PT Mcc Goals Time Frame: May 29, 2017 Transfers (B,C,W/C) (FIM): 6 Sit to Lying (QC): 5 Lying-Sitting on Side/Bed(QC): 5 Sit to Stand (QC): 5 Rollin Chair/[id number] Xfer(QC): 5 Does the Patient Walk: Yes Gait (FIM): 6 Gait distance (FIM): 3=150 ft Distance: >300' Walk 50ft with 2 Turns (QC): 5 Walk 150 ft (QC): 5 Gait Level of Assist: 6 Gait Assistive Device: FWW PT Plan Treatment/Plan Treatment Plan: Continue Plan of Care Treatment Plan: Bed Mobility, Education, Functional Activity Tushar, Functional Strength, Gait, Safety, Therapeutic Exercise, Transfers Treatment Duration: May 29, 2017 Frequency: 11 times per week Estimated Hrs Per Day: .5 hour per day Patient and/or Family Agrees t: Yes Time/GCodes Time In: 1106 Time Out: 1121 Total Billed Treatment Time: 15 Total Billed Treatment 1 visit FA 15 min MARIYA MAE PT May 22, 2017 11:27
[2017-05-22 13:46] VITALS: BP 117/59
[2017-05-22] MEDS ORDERED: RT-ALBUTEROL/IPRATROPIUM 3 ML (DUONEB) VIAL INH PRN (14:00)
--- NOTE | 2017-05-22 14:51 | Physical Therapy Daily Note ---
PT Daily Note-Current Subjective Patient continues to c/o fatigue. Agrees to PT. Pain Numeric Pain Scale: 0-No Pain Location: No Pain Reported Mental Status Patient Orientation: Normal For Age Attachments: IV Transfers Functional [place] Measure 0=Not Assessed/NA 4=Minimal Assistance 1=Total Assistance 5=Supervision or Setup 2=Maximal Assistance 6=Modified [place] 3=Moderate Assistance 7=Complete IndependenceIRFPAI Quality Coding Scale 6 Independent with activity with or without an assistive device 5 Patient requires set up or clean up by helper. Patient completes activity by themselves 4 Supervision or touching assist (CGA). [place] provide cues , steadying assist 3 The helper provides less than half the effort to complete the activity 2 The helper provides more than half the effort to complete the activity 1 Dependent. The helper does all the effort to complete an activity 7 Patient refused to complete or attempt activity 9 The patient did not perform the activity before the current illness or injury 88 Not attempted due to Medical conditions or safety concerns Transfers (B, C, W/C) (FIM): 5 Scootin Roll Left to Right (QC): 4 Supine to/from Sit: 5 Sit to/from Stand: 5 Sit to Lying (QC): 4 Sit to Stand (QC): 4 Weight Bearing Right Lower Extremity: Right Weight Bearing/Tolerated Left Lower Extremity: Left Weight Bearing/Tolerated Gait Training Does the Patient Walk?: Yes Gait (FIM): 5 Distance (FIM): 3=150 ft Distance: 200' Walk 50 ft with 2 Turns(QC): 4 Walk 150 ft (QC): 4 Gait Level of Assist: 5 Gait Persons Needed: 1 Gait Assistive Device: FWW slow, steady Assessment Patient fatigues with minimal activity. Will continue to attempt to increase as tolerated by patient. PT Barrel Stave Inspector Goals Senior Living Goals PT Senior Living Goals Time Frame: May 29, 2017 Transfers (B,C,W/C) (FIM): 6 Sit to Lying (QC): 5 Lying-Sitting on Side/Bed(QC): 5 Sit to Stand (QC): 5 Rollin Chair/[id number]-Upnfw Xfer(QC): 5 Does the Patient Walk: Yes Gait (FIM): 6 Gait distance (FIM): 3=150 ft Distance: >300' Walk 50ft with 2 Turns (QC): 5 Walk 150 ft (QC): 5 Gait Level of Assist: 6 Gait Assistive Device: FWW PT Plan Treatment/Plan Treatment Plan: Continue Plan of Care Treatment Plan: Bed Mobility, Education, Functional Activity Tushar, Functional Strength, Gait, Safety, Therapeutic Exercise, Transfers Treatment Duration: May 29, 2017 Frequency: 11 times per week Estimated Hrs Per Day: .5 hour per day Patient and/or Family Agrees t: Yes Time/GCodes Time In: 1426 Time Out: 1439 Total Billed Treatment Time: 13 Total Billed Treatment 1 visit FA 13 min MARIYA MAE PT May 22, 2017 14:51
[2017-05-22] MEDS: RT-ALBUTEROL/IPRATROPIUM 3 ML (DUONEB) VIAL INH SCH ×2 (15:08→19:18)
[2017-05-22] MEDS: ONDANSETRON 4 MG/2 ML (SDV) Z0FRAN IVP PRN (17:13)
[2017-05-22] MEDS: warFARin 3 MG (COUMADIN) TAB PO SCH (17:50)
[2017-05-22] MEDS: NS W/KCL 20 MEQ/L 1,000 ML IV SCH (17:51)
[2017-05-22 19:54] VITALS: BP 127/53
[2017-05-22] MEDS: VANCOMYCIN 1 GM/NS 250 ML IVPB IV SCH ×2 (20:54)
[2017-05-23] MEDS: NS W/KCL 20 MEQ/L 1,000 ML IV SCH (00:29)
[2017-05-23] MEDS: RT-ALBUTEROL/IPRATROPIUM 3 ML (DUONEB) VIAL INH SCH ×4 (02:00→19:48)
[2017-05-23] MEDS: CALCIUM CARBONATE 600 MG (CALCARB) TAB PO SCH ×3 (05:57→17:37)
[2017-05-23] MEDS: LEVOTHYROXINE 112 MCG (LEVOTHROID) TAB PO SCH (05:57)
[2017-05-23] MEDS: CATHETER FLUSH 10 ML SYR IV SCH ×3 (05:57→21:09)
[2017-05-23] MEDS: SUCRALFATE 1 GM (CARAFATE) TAB PO SCH ×4 (05:57→21:09)
[2017-05-23] MEDS: LEVOTHYROXINE 25 MCG (LEVOTHROID) TAB PO SCH (05:57)
[2017-05-23 06:20] LABS: INR 2.3 (0.8-1.4); PROTHROMBIN TIME PATIENT 25.1 SEC (12.2-14.7)
[2017-05-23 08:00] VITALS: BP 126/75
[2017-05-23] MEDS: meTOprolol SUCCINATE 100 MG (TOPROL XL) TAB PO SCH (08:47)
[2017-05-23] MEDS: DICLOFENAC 1% GEL 100 GM (VOLTAREN) TUBE TP SCH ×4 (08:47→21:09)
[2017-05-23] MEDS: VANCOMYCIN 1 GM/NS 250 ML IVPB IV SCH ×4 (08:47→21:09)
[2017-05-23] MEDS: PANTOPRAZOLE 40 MG/10 ML (PROTONIX) VIAL IV SCH ×2 (08:47→21:09)
[2017-05-23] MEDS: MYRBETRIQ 50 MG TAB PO SCH (08:47)
[2017-05-23] MEDS: LOSARTAN 25 MG (COZAAR) TAB PO SCH (08:47)
[2017-05-23] MEDS: GABAPENTIN 100 MG (NEURONTIN) CAP PO SCH ×2 (08:47→21:09)
--- NOTE | 2017-05-23 10:04 | Physical Therapy Daily Note ---
PT Daily Note-Current Subjective Pt. up in chair with family present, agrees to PT. Pt.'s family expresses concern that she cannot get her legs in/out of bed for return home. Mental Status Patient Orientation: Person Attachments: IV Transfers Functional [place] Measure 0=Not Assessed/NA 4=Minimal Assistance 1=Total Assistance 5=Supervision or Setup 2=Maximal Assistance 6=Modified [place] 3=Moderate Assistance 7=Complete IndependenceIRFPAI Quality Coding Scale 6 Independent with activity with or without an assistive device 5 Patient requires set up or clean up by helper. Patient completes activity by themselves 4 Supervision or touching assist (CGA). [place] provide cues , steadying assist 3 The helper provides less than half the effort to complete the activity 2 The helper provides more than half the effort to complete the activity 1 Dependent. The helper does all the effort to complete an activity 7 Patient refused to complete or attempt activity 9 The patient did not perform the activity before the current illness or injury 88 Not attempted due to Medical conditions or safety concerns Transfers (B, C, W/C) (FIM): 3 Supine to/from Sit: 3 Sit to/from Stand: 4 Weight Bearing Right Lower Extremity: Right Weight Bearing/Tolerated Left Lower Extremity: Left Weight Bearing/Tolerated Gait Training Does the Patient Walk?: Yes Gait (FIM): 4 Distance (FIM): 3=150 ft Distance: 220 ft Gait Level of Assist: 4 Gait Persons Needed: 1 Gait Assistive Device: FWW slow gait speed but steady Assessment Current Status: Good Progress Pt. did well with ambulation, completed sit to stand after 2 attempts. She had difficulty lifting LE's into bed needing assist with (B) LE. Pt. in bed post session with call light, family present and all needs met. PT Wire Wrapping Machine Operator Goals Custodial Goals PT Wire Wrapping Machine Operator Goals Time Frame: May 29, 2017 Transfers (B,C,W/C) (FIM): 6 Sit to Lying (QC): 5 Lying-Sitting on Side/Bed(QC): 5 Sit to Stand (QC): 5 Rollin Chair/Xjp-ps-Qnwip Xfer(QC): 5 Does the Patient Walk: Yes Gait (FIM): 6 Gait distance (FIM): 3=150 ft Distance: >300' Walk 50ft with 2 Turns (QC): 5 Walk 150 ft (QC): 5 Gait Level of Assist: 6 Gait Assistive Device: FWW PT Plan Treatment/Plan Treatment Plan: Continue Plan of Care Treatment Plan: Bed Mobility, Education, Functional Activity Tushar, Functional Strength, Gait, Safety, Therapeutic Exercise, Transfers Treatment Duration: May 29, 2017 Frequency: 11 times per week Estimated Hrs Per Day: .5 hour per day Patient and/or Family Agrees t: Yes Time/GCodes Time In: 916 Time Out: 933 Total Billed Treatment Time: 17 Total Billed Treatment 1, GT 17' EMILY QUIROZ PT May 23, 2017 10:04
--- NOTE | 2017-05-23 10:53 | Progress Note-Hospitalist ---
Subjective HPI/CC On Admission Date Seen by Provider: May 23, 2017 Time Seen by Provider: 10:00 Subjective/Events-last exam patient currently complains of weakness and shakiness. She did ambulate with a walker. She recognizes me but is somewhat tearful. Family is present and has many questions all of which were answered. They remain very concerned that she is not strong enough to get up and out of the bed or in a bed by herself nor put on her clothes Review of Systems Pulmonary: Dyspnea Neurological: Weakness, Incoordination Objective Exam Vital Signs Vital Sign - Last 12Hours 05/19/17 05/19/17 05/22/17 09:30 15:30 13:46 Temp 98.6 Pulse 88 Resp 20 B/P (MAP) 128/68 Pulse Ox 91 O2 Delivery Room Air O2 Flow Rate 2.00 FiO2 28 Capillary Refill : Less Than 3 Seconds General Appearance: Chronically ill HEENT: Normal ENT Inspection Neck: Limited Range of Motion Respiratory: Lungs Clear, Normal Breath Sounds, No Accessory Muscle Use, No Respiratory Distress Cardiovascular: Regular Rate, Rhythm, No Gallop, Systolic Murmur (2-3/) Gastrointestinal: No Organomegaly, No Pulsatile Mass, Non Tender, Soft Rectal: Deferred Extremity: No Calf Tenderness Neurologic/Psychiatric: Alert, Depressed Affect Skin: Normal Color, Warm/Dry Assessment/Plan Assessment and Plan Assess & Plan/Chief Complaint SUPRA-THERAPEUTIC INR CHRONIC ANTICOAGULATION URINARY TRACT INFECTION BACK PAIN GENERALIZED WEAKNESS/MALAISE RECENT FALL AT HOME DEMENTIA HYPERTENSION PLEURAL EFFUSION NAUSEA ABDOMINAL PAIN ELEVATED LFT'S TRANSIENT FEVERS SUPRA-THERAPEUTIC INR - RESOLVED AFTER VITAMIN K - - CONTINUE TO MONITOR INR. 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 GENERALIZED WEAKNESS/MALAISE - STARTED PHYSICAL THERAPY- consider evaluation for rehabilitation. ABDOMINAL PAIN - WITH ELEVATED LFT'S - CHECKED CT OF ABDOMEN AND PELVIS -LIVER AND PANCREAS WERE BENIGN EXCEPT FOR SLIGHT BILIARY DILATION - MONITOR FEVERS. STARTED ON CARAFATE - ABDOMINAL PAIN IMPROVED. RECENT FALL AT HOME - WILL NEED PT FOR GAIT TRAINING DEMENTIA - STABLE HYPERTENSION- CHRONIC - RESTARTED HOME MEDICATIONS. INTERMITTENT FEVERS - CHECKED TICK PANEL - NEGATIVE - STOP DOXYCYCLINE. CHECK FLU SWAB - NEGATIVE. IRON DEFICIENCY ANEMIA - STARTED ON VENOFER-hemoglobin is 8.6 today Hypomagnesemia-we will replace ANA LOMBARDI MD May 23, 2017 10:53
[2017-05-23] MEDS: MAGNESIUM 1 GM/100 ML IVPB 100 ML IV SCH ×2 (12:52→12:53)
[2017-05-23 13:18] LABS: BILIRUBIN,URINE NEGATIVE (NEGATIVE); KETONES,URINE NEGATIVE (NEGATIVE); LEUKOCYTE ESTERASE ,URINE 2+ (NEGATIVE); NITRITE,URINE NEGATIVE (NEGATIVE); PH,URINE 6 (5-9); PROTEIN,URINE NEGATIVE (NEGATIVE); UROBILINOGEN,URINE NORMAL (NORMAL)
[2017-05-23] MEDS: warFARin 3 MG (COUMADIN) TAB PO SCH (17:37)
[2017-05-23 19:00] VITALS: BP 138/59
[2017-05-24] MEDS: RT-ALBUTEROL/IPRATROPIUM 3 ML (DUONEB) VIAL INH SCH ×4 (01:49→19:08)
[2017-05-24] MEDS: LEVOTHYROXINE 25 MCG (LEVOTHROID) TAB PO SCH (06:03)
[2017-05-24] MEDS: CALCIUM CARBONATE 600 MG (CALCARB) TAB PO SCH ×3 (06:03→17:10)
[2017-05-24] MEDS: LEVOTHYROXINE 112 MCG (LEVOTHROID) TAB PO SCH (06:03)
[2017-05-24] MEDS: SUCRALFATE 1 GM (CARAFATE) TAB PO SCH ×4 (06:04→20:57)
[2017-05-24] MEDS: CATHETER FLUSH 10 ML SYR IV SCH ×3 (06:04→20:58)
[2017-05-24] MEDS ORDERED: TROUGH ORDER-PHARMACY XX NR (07:00)
[2017-05-24 07:07] LABS: MEAN PLATELET VOLUME 9.4 FL (7.4-10.4); RED BLOOD COUNT 3.22 10^6/uL (4.35-5.85); RED CELL DISTRIBUTION WIDTH 15.1 % (10.0-14.5); WHITE BLOOD COUNT 8.4 10^3/uL (4.3-11.0)
[2017-05-24 07:08] LABS: INR 2.9 (0.8-1.4); PROTHROMBIN TIME PATIENT 29.8 SEC (12.2-14.7)
[2017-05-24 07:15] LABS: ANION GAP 6 MMOL/L (5-14); BLOOD UREA NITROGEN 8 MG/DL (7-18); BUN/CREATININE RATIO 13; CALCIUM 7.7 MG/DL (8.5-10.1); CARBON DIOXIDE 27 MMOL/L (21-32); CHLORIDE 109 MMOL/L (98-107); CREATININE SERUM 0.61 MG/DL (0.60-1.30); GFR ESTIMATED > 60; GLUCOSE 68 MG/DL (70-105); POTASSIUM 3.5 MMOL/L (3.6-5.0); SODIUM 142 MMOL/L (135-145)
[2017-05-24 08:00] VITALS: BP 111/64
[2017-05-24] MEDS: VANCOMYCIN 1 GM/NS 250 ML IVPB IV SCH ×2 (08:07)
[2017-05-24] MEDS: LOSARTAN 25 MG (COZAAR) TAB PO SCH (08:08)
[2017-05-24] MEDS: meTOprolol SUCCINATE 100 MG (TOPROL XL) TAB PO SCH (08:08)
[2017-05-24] MEDS: PANTOPRAZOLE 40 MG/10 ML (PROTONIX) VIAL IV SCH ×2 (08:08→20:57)
[2017-05-24] MEDS: DICLOFENAC 1% GEL 100 GM (VOLTAREN) TUBE TP SCH ×4 (08:08→20:58)
[2017-05-24] MEDS: GABAPENTIN 100 MG (NEURONTIN) CAP PO SCH ×2 (08:08→20:57)
[2017-05-24] MEDS: MYRBETRIQ 50 MG TAB PO SCH (08:09)
[2017-05-24] MEDS ORDERED: IRON SUCROSE IV SCH (09:00)
[2017-05-24] MEDS ORDERED: NS IV SCH (09:00)
--- NOTE | 2017-05-24 10:40 | Progress Note-Hospitalist ---
Subjective HPI/CC On Admission Date Seen by Provider: May 24, 2017 Time Seen by Provider: 10:30 Subjective/Events-last exam patient had a good day yesterday. She walked the farthest that she had. Hemoglobin is up to 8.9. She complains of some right axillary discomfort this morning. INR is climbing up to 2.9 and as such the Coumadin will be decreased this evening Review of Systems Neurological: Weakness Objective Exam Vital Signs Vital Sign - Last 12Hours 05/19/17 05/19/17 05/22/17 09:30 15:30 13:46 Temp 98.6 Pulse 88 Resp 20 B/P (MAP) 128/68 Pulse Ox 91 O2 Delivery Room Air O2 Flow Rate 2.00 FiO2 28 Capillary Refill : Less Than 3 Seconds General Appearance: Chronically ill HEENT: Normal ENT Inspection Respiratory: Lungs Clear, Normal Breath Sounds, No Accessory Muscle Use, No Respiratory Distress Cardiovascular: Systolic Murmur (2/6), Irregularly Irregular Gastrointestinal: Normal Bowel Sounds, No Pulsatile Mass, Non Tender, Soft Extremity: Pedal Edema Neurologic/Psychiatric: Alert, Oriented x3, Depressed Affect Skin: Warm/Dry, Pallor Results/Procedures Lab Laboratory Tests 05/24/17 06:50 Assessment/Plan Assessment and Plan Assess & Plan/Chief Complaint SUPRA-THERAPEUTIC INR CHRONIC ANTICOAGULATION URINARY TRACT INFECTION BACK PAIN GENERALIZED WEAKNESS/MALAISE RECENT FALL AT HOME DEMENTIA HYPERTENSION PLEURAL EFFUSION NAUSEA ABDOMINAL PAIN ELEVATED LFT'S TRANSIENT FEVERS SUPRA-THERAPEUTIC INR - RESOLVED AFTER VITAMIN K - - CONTINUE TO MONITOR INR. 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 GENERALIZED WEAKNESS/MALAISE - STARTED PHYSICAL THERAPY- consider evaluation for rehabilitation. ABDOMINAL PAIN - WITH ELEVATED LFT'S - CHECKED CT OF ABDOMEN AND PELVIS -LIVER AND PANCREAS WERE BENIGN EXCEPT FOR SLIGHT BILIARY DILATION - MONITOR FEVERS. STARTED ON CARAFATE - ABDOMINAL PAIN IMPROVED. RECENT FALL AT HOME - WILL NEED PT FOR GAIT TRAINING DEMENTIA - STABLE HYPERTENSION- CHRONIC - RESTARTED HOME MEDICATIONS. INTERMITTENT FEVERS -tick panel-negative CHECK FLU SWAB - NEGATIVE. IRON DEFICIENCY ANEMIA - STARTED ON VENOFER-hemoglobin is 8.9 today-and she's feeling better Hypomagnesemia-we will replace ANA LOMBARDI MD May 24, 2017 10:40
[2017-05-24] MEDS: NS W/KCL 20 MEQ/L 1,000 ML IV SCH ×2 (11:44→23:04)
[2017-05-24] MEDS: ACETAMINOPHEN 325 MG TABLET/CAPLET (TYLENOL) PO PRN ×2 (15:29→23:03)
[2017-05-24] MEDS ORDERED: warFARin 2 MG (COUMADIN) TAB PO SCH (18:00)
[2017-05-24 19:40] VITALS: BP 127/81
[2017-05-24] MEDS: VANCOMYCIN INJECTION 750 MG in NS (IVPB) 250 ML IV SCH (20:57)
[2017-05-25] MEDS: RT-ALBUTEROL/IPRATROPIUM 3 ML (DUONEB) VIAL INH SCH ×4 (02:28→21:38)
[2017-05-25 05:42] LABS: INR 4.4 (0.8-1.4); PROTHROMBIN TIME PATIENT 41.3 SEC (12.2-14.7)
[2017-05-25] MEDS: LEVOTHYROXINE 112 MCG (LEVOTHROID) TAB PO SCH (06:26)
[2017-05-25] MEDS: CATHETER FLUSH 10 ML SYR IV SCH ×3 (06:26→20:30)
[2017-05-25] MEDS: CALCIUM CARBONATE 600 MG (CALCARB) TAB PO SCH ×3 (06:26→16:53)
[2017-05-25] MEDS: SUCRALFATE 1 GM (CARAFATE) TAB PO SCH ×4 (06:26→20:29)
[2017-05-25] MEDS: LEVOTHYROXINE 25 MCG (LEVOTHROID) TAB PO SCH (06:26)
[2017-05-25] MEDS: VANCOMYCIN INJECTION 750 MG in NS (IVPB) 250 ML IV SCH ×2 (07:59→20:00)
[2017-05-25] MEDS: DICLOFENAC 1% GEL 100 GM (VOLTAREN) TUBE TP SCH ×4 (08:00→20:30)
[2017-05-25] MEDS: meTOprolol SUCCINATE 100 MG (TOPROL XL) TAB PO SCH (08:00)
[2017-05-25] MEDS: GABAPENTIN 100 MG (NEURONTIN) CAP PO SCH ×2 (08:00→20:29)
[2017-05-25] MEDS: LOSARTAN 25 MG (COZAAR) TAB PO SCH (08:00)
[2017-05-25] MEDS: MYRBETRIQ 50 MG TAB PO SCH (08:00)
[2017-05-25] MEDS: PANTOPRAZOLE 40 MG/10 ML (PROTONIX) VIAL IV SCH ×2 (08:09→20:29)
[2017-05-25] MEDS: POLYETHYLENE GLYCOL 17 GM (MIRALAX) PACK PO SCH (08:21)
[2017-05-25 08:23] VITALS: BP 115/70
[2017-05-25] MEDS: ASPIRIN E.C. 81 MG (ECOTRIN) TAB PO SCH (08:32)
--- NOTE | 2017-05-25 09:17 | Progress Note (SOAP) ---
Subjective Date Seen by Provider: May 25, 2017 Time Seen by Provider: 08:35 Subjective/Events-last exam PT IS AN 87 Y/O FEMALE WHO IS KNOWN TO ME FROM CLINIC. SHE HAS BEEN HOSPITALIZED WITH FEVER, WEAKNESS. SHE REPORTS THAT SHE DID NOT SLEEP WELL YESTERDAY EVENING. FAMILY, HOWEVER REPORTS THAT SHE HAD BEEN SNORING AT 9PM WHEN THEY WERE THERE VISITING WITH HER. STAFF REPORTED THAT THEY TRIED TO GIVE HER MEDICATION TO HELP, BUT SHE DID NOT WANT TO TAKE IT. FAMILY ALSO REPORTS SWELLING/TENDERNESS IN HER RIGHT CHEST WALL/BREAST/SHOULDER REGION. FAMILY REPORTS PT IS UNABLE TO GET INTO OR OUT OF BED ON HER OWN, HOWEVER SHE CAN AMBULATE IN THE HALLWAY WITH HELP. Review of Systems General: Fatigue, Malaise HEENT: No Head Aches Pulmonary: No Dyspnea, Cough Cardiovascular: Edema, No: Chest Pain, Palpitations Gastrointestinal: No: Nausea, Vomiting, Abdominal Pain, Constipation Genitourinary: Frequency, Incontinence (INTERMITTENT) Neurological: Weakness, Other (DEPRESSION) Objective Exam Vital Signs Date Time Temp Pulse Resp B/P (MAP) Pulse Ox O2 Delivery O2 Flow Rate FiO2 05/25/17 08:23 98.6 91 20 115/70 98 Nasal Cannula 3.00 05/25/17 02:28 97 Nasal Cannula 2.50 05/24/17 19:40 97.4 88 18 127/81 94 Nasal Cannula 3.00 05/24/17 19:09 96 Nasal Cannula 2.50 05/24/17 15:10 Nasal Cannula 2.50 Capillary Refill : Less Than 3 Seconds General Appearance: WD/WN, Mild Distress (TEARFUL) HEENT: PERRL/EOMI Neck: Full Range of Motion, Supple Respiratory: Chest Non Tender, Crackles (RIGHT BASE AND LEFT BASE), Decreased Breath Sounds Cardiovascular: Regular Rate, Rhythm, Systolic Murmur (II/ ) Gastrointestinal: normal bowel sounds, non tender, soft Extremity: Pedal Edema (2-3+) Neurologic/Psychiatric: Alert, Oriented x3, Depressed Affect Skin: Warm/Dry, Other (HEMOSIDERAN PIGEMENT CHANGES BILATERAL LOWER LEGS AT ANKLES) Lymphatic: No Adenopathy Results Lab Laboratory Tests 05/25/17 05:20: Prothrombin Time 41.3H, INR Comment 4.4H 05/25/17 08:10: Stool Occult Blood Immunoassay POSITIVEH Microbiology 05/21/17 Influenza Types A,B Antigen (BORA) - Final, Complete 05/23/17 Urine Culture - Preliminary, Resulted NO GROWTH Assessment/Plan Assessment/Plan Assess & Plan/Chief Complaint SUPRA-THERAPEUTIC INR CHRONIC ANTICOAGULATION URINARY TRACT INFECTION BACK PAIN GENERALIZED WEAKNESS/MALAISE RECENT FALL AT HOME DEMENTIA HYPERTENSION PLEURAL EFFUSION NAUSEA ABDOMINAL PAIN ELEVATED LFT'S TRANSIENT FEVERS SUPRA-THERAPEUTIC INR - INCREASED TODAY AT 4 - WAS 2.9 YESTERDAY. HOLD COUMADIN TONIGHT - CHECK DAILY INR'S. - WILL CHANGE COUMADIN DOSE TO 1MG NIGHTLY - PLAN TO START ON 05/27/17 PNEUMONIA - VANCOMYCIN - CHEST XRAY PENDING THIS MORNING. SYMPTOMS IMPROVED - FEVERS MUCH IMPROVED OVER THE WEEKEND - CONTINUE TO ENCOURAGE INCENTIVE SPIROMETRY. 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 - REPEAT UA NEGATIVE BACK PAIN - VOLTAREN GEL, IV PAIN MEDICATION. GENERALIZED WEAKNESS/MALAISE - STARTED PHYSICAL THERAPY. ABDOMINAL PAIN - WITH ELEVATED LFT'S - CHECKED CT OF ABDOMEN AND PELVIS -LIVER AND PANCREAS WERE BENIGN EXCEPT FOR SLIGHT BILIARY DILATION - LIVER ENZYMES NOW NORMAL. STARTED ON CARAFATE - ABDOMINAL PAIN IMPROVED. RECENT FALLS AT HOME - WILL NEED PT FOR GAIT TRAINING DEMENTIA - STABLE HYPERTENSION- CHRONIC - RESTARTED HOME MEDICATIONS. INTERMITTENT FEVERS - CHECKED TICK PANEL - NEGATIVE - STOPPED DOXYCYCLINE. CHECK FLU SWAB - NEGATIVE. IRON DEFICIENCY ANEMIA - STARTED ON VENOFER NEXT DOSE ON 05/26/17, THEN . MALLORIE CONTRERAS MD May 25, 2017 09:17
--- NOTE | 2017-05-25 09:42 | Diagnostic Imaging Report ---
EXAMINATION: PA and lateral views of the chest. INDICATION: Difficulty breathing. COMPARISON: 05/22/2017. FINDINGS: There is right basilar atelectasis or infiltrate with a small effusion. A tiny effusion and minimal atelectasis in the left lung base are seen. There is background interstitial thickening and an element of vascular congestion. The heart size is mildly enlarged. No pneumothorax. An IVC filter and sternotomy wires are seen. IMPRESSION: Stable bibasilar infiltrates or atelectasis with small effusions, more prominent on the right side. Cardiomegaly with mild vascular congestion. Dictated by: Dictated on workstation # [id number]
[2017-05-25] MEDS ORDERED: FUROSEMIDE 40 MG/4 ML INJ (LASIX) IVP NR (10:43)
[2017-05-25] MEDS ORDERED: KCL 20 MEQ TAB (K-DUR) PO NR (10:45)
--- NOTE | 2017-05-25 10:56 | Physical Therapy Daily Note ---
PT Daily Note-Current Subjective Patient agrees to PT. Pain Numeric Pain Scale: 0-No Pain Location: No Pain Reported Mental Status Patient Orientation: Normal For Age Attachments: Oxygen (3L), IV Transfers Functional [place] Measure 0=Not Assessed/NA 4=Minimal Assistance 1=Total Assistance 5=Supervision or Setup 2=Maximal Assistance 6=Modified [place] 3=Moderate Assistance 7=Complete IndependenceIRFPAI Quality Coding Scale 6 Independent with activity with or without an assistive device 5 Patient requires set up or clean up by helper. Patient completes activity by themselves 4 Supervision or touching assist (CGA). [place] provide cues , steadying assist 3 The helper provides less than half the effort to complete the activity 2 The helper provides more than half the effort to complete the activity 1 Dependent. The helper does all the effort to complete an activity 7 Patient refused to complete or attempt activity 9 The patient did not perform the activity before the current illness or injury 88 Not attempted due to Medical conditions or safety concerns Transfers (B, C, W/C) (FIM): 4 Scootin Roll Left to Right (QC): 3 Supine to/from Sit: 4 Sit to/from Stand: 4 Sit to Lying (QC): 3 Sit to Stand (QC): 3 Chair/Ver-kp-Lyjnm Xfer(QC): 3 Bed to/from Chair: 4 Weight Bearing Right Lower Extremity: Right Weight Bearing/Tolerated Left Lower Extremity: Left Weight Bearing/Tolerated Gait Training Does the Patient Walk?: Yes Gait (FIM): 5 Distance (FIM): 3=150 ft Distance: 200' x 2 Walk 50 ft with 2 Turns(QC): 4 Walk 150 ft (QC): 4 Gait Level of Assist: 5 Gait Persons Needed: 1 Gait Assistive Device: FWW slow, trunk flexed posture; 3 standing recovery periods due to increase in fatigue Exercises Supine Ex: Ankle pumps, Quad Set, Heel Slides Supine Reps: 15 Seated Therapy Exercises: Ankle pumps, Long arc quads Seated Reps: 15 (x 2 sets) Assessment Patient continues to fatigue with minimal activity, however, is slowly improving. From a PT standpoint, patient would benefit from intensive therapy in ARU. Lunchroom Food Service Supervisor notified. PT Long-Term Goals Head Teller Goals PT Long-Term Goals Time Frame: May 29, 2017 Transfers (B,C,W/C) (FIM): 6 Sit to Lying (QC): 5 Lying-Sitting on Side/Bed(QC): 5 Sit to Stand (QC): 5 Rollin Chair/Ivn-wg-Cukjd Xfer(QC): 5 Does the Patient Walk: Yes Gait (FIM): 6 Gait distance (FIM): 3=150 ft Distance: >300' Walk 50ft with 2 Turns (QC): 5 Walk 150 ft (QC): 5 Gait Level of Assist: 6 Gait Assistive Device: FWW PT Plan Treatment/Plan Treatment Plan: Continue Plan of Care Treatment Plan: Bed Mobility, Education, Functional Activity Tushar, Functional Strength, Gait, Safety, Therapeutic Exercise, Transfers Treatment Duration: May 29, 2017 Frequency: 11 times per week Estimated Hrs Per Day: .5 hour per day Patient and/or Family Agrees t: Yes Discharge Recommendations Therapy D/C Recommendations: Acute Rehab Time/GCodes Time In: 930 Time Out: 953 Total Billed Treatment Time: 23 Total Billed Treatment 1 visit FA 15 min EX 8 min MARIYA MAE PT May 25, 2017 10:56
[2017-05-25 12:22] VITALS: BP 115/70
[2017-05-25] MEDS: ONDANSETRON 4 MG/2 ML (SDV) Z0FRAN IVP PRN (12:29)
--- NOTE | 2017-05-25 14:40 | Occupational Ther Daily Note ---
OT Current Status-Daily Note Subjective Pt alert, lying in bed. Family and visitor present in room. Pt agreed to therapy. No c/o pain at this time. Mental Status/Objective Patient Orientation: Person, Place, Situation Functional [place] Measure 0=Not Assessed/NA 4=Minimal Assistance 1=Total Assistance 5=Supervision or Setup 2=Maximal Assistance 6=Modified [place] 3=Moderate Assistance 7=Complete [place] Attachments: Lee Catheter, IV ADL-Treatment Functional [place] Measure 0=Not Assessed/NA 4=Minimal Assistance 1=Total Assistance 5=Supervision or Setup 2=Maximal Assistance 6=Modified [place] 3=Moderate Assistance 7=Complete IndependenceIRFPAI Quality Coding Scale 6 Independent with activity with or without an assistive device 5 Patient requires set up or clean up by helper. Patient completes activity by themselves 4 Supervision or touching assist (CGA). [place] provide cues , steadying assist 3 The helper provides less than half the effort to complete the activity 2 The helper provides more than half the effort to complete the activity 1 Dependent. The helper does all the effort to complete an activity 7 Patient refused to complete or attempt activity 9 The patient did not perform the activity before the current illness or injury 88 Not attempted due to Medical conditions or safety concerns Other Treatment Pt completed 6 medium resistance theraband exercises, 1 set 10 reps. Pt was able to remember 2 of the exercises from previous treatments. Pt tolerated well though was worried about R UE due to it being sore. Pt took breaks between each set to recover. After therapy, pt lying in bed with call light/ phone in reach. Family present in room. All needs met in room. OT Short Term Goals Short Term Goals 1=Demonstrate adherence to instructed precautions during ADL tasks. 2=Patient will verbalize/demonstrate understanding of assistive devices/ modifications for ADL. 3=Patient will improve strength/tolerance for activity to enable patient to perform ADL's. OT Clinical Quality Analyst Goals Alf Goals Time Frame: Jun 02, 2017 Eating (FIM): 6 Eating (QC): 6 Groomin Oral Hygiene (QC): 6 Bathing(FIM): 5 Upper Body Dressing(FIM): 6 Lower Body Dressing(FIM): 6 Toileting(FIM): 6 Toileting Hygiene (QC): 6 Toilet/Commode Transfer(FIM): 6 Toilet/Commode Transfer (QC): 6 Additional Goals: 2-Verbalize Understanding, 3-ImproveStrength/Tushar 1=Demonstrate adherence to instructed precautions during ADL tasks. 2=Patient will verbalize/demonstrate understanding of assistive devices/ modifications for ADL. 3=Patient will improve strength/tolerance for activity to enable patient to perform ADL's. OT Education/Plan Problem List/Assessment Pt demonstrates decreased mobility, strength, activity tolerance, and ADL functioning. Pt to benefit from skilled OT intervention for ADL training, transfers, strengthening, and home safety education to maximize level of function and allow safe discharge home. Discharge Recommendations Plan/Recommendations: Continue POC Treatment Plan/Plan of Care Patient would benefit from OT for education, treatment and training to promote independence in ADL's, mobility, safety and/or upper extremity function for ADL' s. Plan of Care: ADL Retraining, Functional Mobility, UE Funct Exercise/Act Treatment Duration: Jun 02, 2017 Frequency: 5 times per week Estimated Hrs Per Day: .5 hour per day Agreement: Yes Rehab Potential: Good Time/GCodes Start Time: 13:35 Stop Time: 13:50 Total Time Billed (hr/min): 15 Billed Treatment Time 1 visit-EX 1 (15 min) ROSIE MAZARIEGOS May 25, 2017 14:40
--- NOTE | 2017-05-25 14:55 | Physical Therapy Daily Note ---
PT Daily Note-Current Subjective Patient agrees to PT. Pain Numeric Pain Scale: 0-No Pain Location: No Pain Reported Mental Status Patient Orientation: Normal For Age Attachments: Oxygen, Lee Catheter Transfers Functional [place] Measure 0=Not Assessed/NA 4=Minimal Assistance 1=Total Assistance 5=Supervision or Setup 2=Maximal Assistance 6=Modified [place] 3=Moderate Assistance 7=Complete IndependenceIRFPAI Quality Coding Scale 6 Independent with activity with or without an assistive device 5 Patient requires set up or clean up by helper. Patient completes activity by themselves 4 Supervision or touching assist (CGA). [place] provide cues , steadying assist 3 The helper provides less than half the effort to complete the activity 2 The helper provides more than half the effort to complete the activity 1 Dependent. The helper does all the effort to complete an activity 7 Patient refused to complete or attempt activity 9 The patient did not perform the activity before the current illness or injury 88 Not attempted due to Medical conditions or safety concerns Transfers (B, C, W/C) (FIM): 4 Scootin Roll Left to Right (QC): 3 Supine to/from Sit: 4 Sit to/from Stand: 5 Sit to Lying (QC): 3 Sit to Stand (QC): 4 Weight Bearing Right Lower Extremity: Right Weight Bearing/Tolerated Left Lower Extremity: Left Weight Bearing/Tolerated Gait Training Does the Patient Walk?: Yes Gait (FIM): 5 Distance (FIM): 3=150 ft Distance: 300' Walk 50 ft with 2 Turns(QC): 4 Walk 150 ft (QC): 4 Gait Level of Assist: 5 Gait Persons Needed: 1 Gait Assistive Device: FWW slow, steady gait sequence Exercises Supine Ex: Bridging, Rolling, Lower trunk rotation Supine Reps: 5 (for repositioning in bed) Assessment Current Status: Good Progress PT Executive Relations Specialist Goals Senior Care Goals PT Senior Care Goals Time Frame: May 29, 2017 Transfers (B,C,W/C) (FIM): 6 Sit to Lying (QC): 5 Lying-Sitting on Side/Bed(QC): 5 Sit to Stand (QC): 5 Rollin Chair/Ijr-pz-Ggvoi Xfer(QC): 5 Does the Patient Walk: Yes Gait (FIM): 6 Gait distance (FIM): 3=150 ft Distance: >300' Walk 50ft with 2 Turns (QC): 5 Walk 150 ft (QC): 5 Gait Level of Assist: 6 Gait Assistive Device: FWW PT Plan Treatment/Plan Treatment Plan: Continue Plan of Care Treatment Plan: Bed Mobility, Education, Functional Activity Tushar, Functional Strength, Gait, Safety, Therapeutic Exercise, Transfers Treatment Duration: May 29, 2017 Frequency: 11 times per week Estimated Hrs Per Day: .5 hour per day Patient and/or Family Agrees t: Yes Time/GCodes Time In: 1417 Time Out: 1740 Total Billed Treatment Time: 23 Total Billed Treatment 1 visit FA x 2 23 min MARIYA MAE PT May 25, 2017 14:55
[2017-05-25] MEDS: FUROSEMIDE 40 MG/4 ML INJ (LASIX) IVP SCH (16:53)
[2017-05-25] MEDS ORDERED: TROUGH ORDER-PHARMACY XX NR (19:00)
[2017-05-25 20:25] VITALS: BP 142/78
[2017-05-25] MEDS: ACETAMINOPHEN 325 MG TABLET/CAPLET (TYLENOL) PO PRN (20:34)
[2017-05-26] MEDS: RT-ALBUTEROL/IPRATROPIUM 3 ML (DUONEB) VIAL INH SCH ×4 (02:43→21:14)
[2017-05-26] MEDS: LEVOTHYROXINE 112 MCG (LEVOTHROID) TAB PO SCH (06:31)
[2017-05-26] MEDS: SUCRALFATE 1 GM (CARAFATE) TAB PO SCH ×4 (06:31→20:34)
[2017-05-26] MEDS: FUROSEMIDE 40 MG/4 ML INJ (LASIX) IVP SCH ×2 (06:31→17:19)
[2017-05-26] MEDS: LEVOTHYROXINE 25 MCG (LEVOTHROID) TAB PO SCH (06:31)
[2017-05-26] MEDS: CATHETER FLUSH 10 ML SYR IV SCH ×3 (06:32→20:35)
[2017-05-26] MEDS: KCL 20 MEQ TAB (K-DUR) PO SCH (06:32)
[2017-05-26] MEDS: CALCIUM CARBONATE 600 MG (CALCARB) TAB PO SCH ×3 (06:32→17:16)
[2017-05-26 06:51] LABS: MEAN PLATELET VOLUME 9.1 FL (7.4-10.4); RED BLOOD COUNT 3.17 10^6/uL (4.35-5.85); RED CELL DISTRIBUTION WIDTH 15.2 % (10.0-14.5); WHITE BLOOD COUNT 9.6 10^3/uL (4.3-11.0)
[2017-05-26] MEDS ORDERED: TROUGH ORDER-PHARMACY XX NR (07:00)
[2017-05-26 07:13] LABS: INR 5.8 (0.8-1.4); PROTHROMBIN TIME PATIENT 51.4 SEC (12.2-14.7)
[2017-05-26 07:15] LABS: ALANINE AMINOTRANSFERASE 40 U/L (0-55); ALBUMIN 2.1 GM/DL (3.2-4.5); ANION GAP 7 MMOL/L (5-14); ASPARTATE AMINO TRANSFERASE 35 U/L (5-34); BILIRUBIN,TOTAL 0.4 MG/DL (0.1-1.0); BLOOD UREA NITROGEN 9 MG/DL (7-18); BUN/CREATININE RATIO 12; CALCIUM 7.7 MG/DL (8.5-10.1); CARBON DIOXIDE 29 MMOL/L (21-32); CHLORIDE 107 MMOL/L (98-107); CREATININE SERUM 0.75 MG/DL (0.60-1.30); GFR ESTIMATED > 60; GLUCOSE 71 MG/DL (70-105); MAGNESIUM 1.4 MG/DL (1.8-2.4); POTASSIUM 3.6 MMOL/L (3.6-5.0); SODIUM 143 MMOL/L (135-145); TOTAL PROTEIN 4.3 GM/DL (6.4-8.2)
[2017-05-26 08:16] VITALS: BP 141/69
[2017-05-26] MEDS: meTOprolol SUCCINATE 100 MG (TOPROL XL) TAB PO SCH (08:41)
[2017-05-26] MEDS: GABAPENTIN 100 MG (NEURONTIN) CAP PO SCH ×2 (08:41→20:34)
[2017-05-26] MEDS: LOSARTAN 25 MG (COZAAR) TAB PO SCH (08:41)
[2017-05-26] MEDS: PANTOPRAZOLE 40 MG/10 ML (PROTONIX) VIAL IV SCH ×2 (08:42→20:34)
[2017-05-26] MEDS: VANCOMYCIN INJECTION 750 MG in NS (IVPB) 250 ML IV SCH (08:46)
[2017-05-26] MEDS: MYRBETRIQ 50 MG TAB PO SCH (08:48)
[2017-05-26] MEDS: DICLOFENAC 1% GEL 100 GM (VOLTAREN) TUBE TP SCH ×4 (08:59→20:34)
[2017-05-26] MEDS ORDERED: IRON SUCROSE IV SCH (09:00)
[2017-05-26] MEDS ORDERED: NS IV SCH (09:00)
--- NOTE | 2017-05-26 10:32 | Physical Therapy Daily Note ---
PT Daily Note-Current Subjective Patient reports she is feeling better. Pain Numeric Pain Scale: 0-No Pain Location: No Pain Reported Mental Status Patient Orientation: Normal For Age Transfers Functional [place] Measure 0=Not Assessed/NA 4=Minimal Assistance 1=Total Assistance 5=Supervision or Setup 2=Maximal Assistance 6=Modified [place] 3=Moderate Assistance 7=Complete IndependenceIRFPAI Quality Coding Scale 6 Independent with activity with or without an assistive device 5 Patient requires set up or clean up by helper. Patient completes activity by themselves 4 Supervision or touching assist (CGA). [place] provide cues , steadying assist 3 The helper provides less than half the effort to complete the activity 2 The helper provides more than half the effort to complete the activity 1 Dependent. The helper does all the effort to complete an activity 7 Patient refused to complete or attempt activity 9 The patient did not perform the activity before the current illness or injury 88 Not attempted due to Medical conditions or safety concerns Transfers (B, C, W/C) (FIM): 4 Scootin Sit to/from Stand: 4 Sit to Stand (QC): 3 Weight Bearing Right Lower Extremity: Right Weight Bearing/Tolerated Left Lower Extremity: Left Weight Bearing/Tolerated Gait Training Does the Patient Walk?: Yes Gait (FIM): 4 Distance (FIM): 3=150 ft Distance: 250' x 2 Walk 50 ft with 2 Turns(QC): 3 Walk 150 ft (QC): 3 Gait Level of Assist: 4 Gait Persons Needed: 1 Gait Assistive Device: FWW slow, steady with frequent standing recovery periods due to SOA and fatigue Exercises Seated Therapy Exercises: Ankle pumps, Long arc quads, Hip flexion Seated Reps: 25 (2 sets to improve strength and functional mobility) Assessment Patient is making slow, but steady progress and will continue to require skilled therapy intervention to continue to improve to return to home at maximum LOF. PT Medical Leader Goals Medical Leader Goals PT Assisted Goals Time Frame: May 29, 2017 Transfers (B,C,W/C) (FIM): 6 Sit to Lying (QC): 5 Lying-Sitting on Side/Bed(QC): 5 Sit to Stand (QC): 5 Rollin Chair/Ojw-jw-Bidqy Xfer(QC): 5 Does the Patient Walk: Yes Gait (FIM): 6 Gait distance (FIM): 3=150 ft Distance: >300' Walk 50ft with 2 Turns (QC): 5 Walk 150 ft (QC): 5 Gait Level of Assist: 6 Gait Assistive Device: FWW PT Plan Treatment/Plan Treatment Plan: Continue Plan of Care Treatment Plan: Bed Mobility, Education, Functional Activity Tushar, Functional Strength, Gait, Safety, Therapeutic Exercise, Transfers Treatment Duration: May 29, 2017 Frequency: 11 times per week Estimated Hrs Per Day: .5 hour per day Patient and/or Family Agrees t: Yes Time/GCodes Time In: 910 Time Out: 936 Total Billed Treatment Time: 26 Total Billed Treatment 1 visit FA 16 min EX 10 min MARIYA MAE PT May 26, 2017 10:32
--- NOTE | 2017-05-26 13:17 | Occupational Ther Daily Note ---
OT Current Status-Daily Note Subjective Pt sitting in chair, agrees to treatment. Pt tearful at beginning of session as daughter is leaving to go back home. Mental Status/Objective Functional [place] Measure 0=Not Assessed/NA 4=Minimal Assistance 1=Total Assistance 5=Supervision or Setup 2=Maximal Assistance 6=Modified [place] 3=Moderate Assistance 7=Complete [place] Attachments: Lee Catheter ADL-Treatment Functional [place] Measure 0=Not Assessed/NA 4=Minimal Assistance 1=Total Assistance 5=Supervision or Setup 2=Maximal Assistance 6=Modified [place] 3=Moderate Assistance 7=Complete IndependenceIRFPAI Quality Coding Scale 6 Independent with activity with or without an assistive device 5 Patient requires set up or clean up by helper. Patient completes activity by themselves 4 Supervision or touching assist (CGA). [place] provide cues , steadying assist 3 The helper provides less than half the effort to complete the activity 2 The helper provides more than half the effort to complete the activity 1 Dependent. The helper does all the effort to complete an activity 7 Patient refused to complete or attempt activity 9 The patient did not perform the activity before the current illness or injury 88 Not attempted due to Medical conditions or safety concerns Other Treatment Pt states she already showered and completed ADLs this morning, agrees to exercises. Pt states she is going to be moved to ARU tomorrow and has questions regarding rehab. Education provided regarding expectations for ARU. Pt states understanding and has no further questions at this time. Pt completed bilateral UE exercises to promote increased strength needed for ADLs and transfers. Pt performed 5 bilateral UE exercises x20 reps with moderate resistance (red) theraband. Pt able to recall two exercises from previous session. Rest breaks taken between exercises. Occasional cues required for proper exercise technique. Pt requests to return to bed after session. Sit to stand with CGA. Transfer to EOB with CGA. Sit to supine with assist for LE. Pt resting in bed with needs met after session. OT Short Term Goals Short Term Goals 1=Demonstrate adherence to instructed precautions during ADL tasks. 2=Patient will verbalize/demonstrate understanding of assistive devices/ modifications for ADL. 3=Patient will improve strength/tolerance for activity to enable patient to perform ADL's. OT Construction Management Assistant Goals Construction Management Assistant Goals Time Frame: Jun 02, 2017 Eating (FIM): 6 Eating (QC): 6 Groomin Oral Hygiene (QC): 6 Bathing(FIM): 5 Upper Body Dressing(FIM): 6 Lower Body Dressing(FIM): 6 Toileting(FIM): 6 Toileting Hygiene (QC): 6 Toilet/Commode Transfer(FIM): 6 Toilet/Commode Transfer (QC): 6 Additional Goals: 2-Verbalize Understanding, 3-ImproveStrength/Tushar 1=Demonstrate adherence to instructed precautions during ADL tasks. 2=Patient will verbalize/demonstrate understanding of assistive devices/ modifications for ADL. 3=Patient will improve strength/tolerance for activity to enable patient to perform ADL's. OT Education/Plan Problem List/Assessment Pt demonstrates decreased mobility, strength, activity tolerance, and ADL functioning. Pt to benefit from skilled OT intervention for ADL training, transfers, strengthening, and home safety education to maximize level of function and allow safe discharge home. Discharge Recommendations Plan/Recommendations: Continue POC Treatment Plan/Plan of Care Patient would benefit from OT for education, treatment and training to promote independence in ADL's, mobility, safety and/or upper extremity function for ADL' s. Plan of Care: ADL Retraining, Functional Mobility, UE Funct Exercise/Act Treatment Duration: Jun 02, 2017 Frequency: 5 times per week Estimated Hrs Per Day: .5 hour per day Agreement: Yes Rehab Potential: Good Time/GCodes Start Time: 11:43 Stop Time: 12:07 Total Time Billed (hr/min): 24 Billed Treatment Time 1 visit, EXx2(24minutes) JULIA HUNTLEY OT May 26, 2017 13:16
[2017-05-26] MEDS: ACETAMINOPHEN 325 MG TABLET/CAPLET (TYLENOL) PO PRN (13:51)
--- NOTE | 2017-05-26 14:26 | Physical Therapy Progress Note ---
Therapy Progress Note Patient is currently running a fever and not feeling well and declined PT this p.m. PT to resume in a.m. 1 ref MARIYA MAE PT May 26, 2017 14:26
[2017-05-26 19:15] VITALS: BP 135/78
--- NOTE | 2017-05-26 21:23 | Progress Note (SOAP) ---
Subjective Date Seen by Provider: May 26, 2017 Time Seen by Provider: 12:30 Subjective/Events-last exam Fwup pneumonia, supratherapeutic INR, weakness, Hypokalemia, Hypomagnesemia, iron defeciency anemia, HTN. Resting in bed. Appetite still poor. Objective Exam Vital Signs Date Time Temp Pulse Resp B/P (MAP) Pulse Ox O2 Delivery O2 Flow Rate FiO2 05/26/17 19:15 99.4 95 22 135/78 94 Nasal Cannula 3.00 05/26/17 16:06 90 Room Air 0.00 05/26/17 09:39 90 Room Air 0.00 05/26/17 08:16 98.2 89 20 141/69 92 Room Air 05/26/17 08:00 Nasal Cannula 05/26/17 02:44 94 Nasal Cannula 3.00 05/25/17 21:39 93 Nasal Cannula 3.00 I & O 05/27/17 07:00 Intake Total 1142.5 ml Output Total 1525 ml Balance -382.5 ml Capillary Refill : Less Than 3 Seconds General Appearance: No Apparent Distress Neck: Supple Respiratory: Lungs Clear Cardiovascular: Regular Rate, Rhythm, Systolic Murmur Gastrointestinal: normal bowel sounds, non tender, soft Extremity: Non Tender, No Calf Tenderness, No Pedal Edema Neurologic/Psychiatric: Alert, Oriented x3 Results Lab Laboratory Tests 05/26/17 06:38: White Blood Count 9.6, Red Blood Count 3.17L, Hemoglobin 8.6L, Hematocrit 29L, Mean Corpuscular Volume 90, Mean Corpuscular Hemoglobin 27, Mean Corpuscular Hemoglobin Concent 30L, Red Cell Distribution Width 15.2H, Platelet Count 294, Mean Platelet Volume 9.1, Prothrombin Time 51.4*H, INR Comment 5.8*H, Sodium Level 143, Potassium Level 3.6, Chloride Level 107, Carbon Dioxide Level 29, Anion Gap 7, Blood Urea Nitrogen 9, Creatinine 0.75, Estimat Glomerular Filtration Rate > 60, BUN/Creatinine Ratio 12, Glucose Level 71, Calcium Level 7.7L, Magnesium Level 1.4L, Total Bilirubin 0.4, Aspartate Amino Transf (AST/ SGOT) 35H, Alanine Aminotransferase (ALT/SGPT) 40, Alkaline Phosphatase 124, Total Protein 4.3L, Albumin 2.1L, Vancomycin Level Trough 16.8 Microbiology 05/21/17 Influenza Types A,B Antigen (BORA) - Final, Complete 05/23/17 Urine Culture - Final, Complete Presumptive [place] Assessment/Plan Assessment/Plan Assess & Plan/Chief Complaint 1. Pneumonia--on Vancomycin 2. Supratherapeutic INR--hold coumadin and repeat INR in AM 3. Weakness--doing PT and OT and plan is for transfer to Inpatient Rehab Unit 4. Hypomagnesemia--replace magnesium 5. Iron Def Anemia--on Venofer, repeat H/H in AM 6. Hypertension--back on home meds MAO RICHARDS DO May 26, 2017 9:23 pm
[2017-05-26] MEDS: MAGNESIUM 1 GM/100 ML IVPB 100 ML IV SCH ×2 (21:27→22:32)
[2017-05-27] MEDS: RT-ALBUTEROL/IPRATROPIUM 3 ML (DUONEB) VIAL INH SCH ×4 (03:49→19:58)
[2017-05-27 05:14] LABS: BASOPHILS % (AUTO) 0 % (0-10); EOSINOPHILS # (AUTO) 0.1 10^3/uL (0.0-0.3); EOSINOPHILS % (AUTO) 1 % (0-10); LYMPHOCYTES # (AUTO) 0.6 X 10^3 (1.0-4.0); LYMPHOCYTES % (AUTO) 6 % (12-44); MEAN CORPUSCULAR HEMOGLOBIN 27 PG (25-34); MEAN CORPUSCULAR HGB CONC 30 G/DL (32-36); MEAN CORPUSCULAR VOLUME 89 FL (80-99); MONOCYTES # (AUTO) 0.5 X 10^3 (0.0-1.0); MONOCYTES % (AUTO) 5 % (0-12); NEUTROPHILS # (AUTO) 8.1 X 10^3 (1.8-7.8); NEUTROPHILS % (AUTO) 88 % (42-75); PLATELET COUNT 309 10^3/uL (130-400); RED CELL DISTRIBUTION WIDTH 15.5 % (10.0-14.5); WHITE BLOOD COUNT 9.2 10^3/uL (4.3-11.0)
[2017-05-27] MEDS: LEVOTHYROXINE 112 MCG (LEVOTHROID) TAB PO SCH (05:21)
[2017-05-27] MEDS: CALCIUM CARBONATE 600 MG (CALCARB) TAB PO SCH ×3 (05:21→16:30)
[2017-05-27] MEDS: LEVOTHYROXINE 25 MCG (LEVOTHROID) TAB PO SCH (05:21)
[2017-05-27] MEDS: CATHETER FLUSH 10 ML SYR IV SCH ×3 (05:21→20:48)
[2017-05-27] MEDS: FUROSEMIDE 40 MG/4 ML INJ (LASIX) IVP SCH (05:21)
[2017-05-27] MEDS: KCL 20 MEQ TAB (K-DUR) PO SCH (05:21)
[2017-05-27] MEDS: SUCRALFATE 1 GM (CARAFATE) TAB PO SCH ×4 (05:21→20:03)
[2017-05-27 05:30] LABS: PROTHROMBIN TIME PATIENT 59.3 SEC (12.2-14.7)
[2017-05-27 05:32] LABS: ANION GAP 9 MMOL/L (5-14); BLOOD UREA NITROGEN 10 MG/DL (7-18); BUN/CREATININE RATIO 13; CALCIUM 7.7 MG/DL (8.5-10.1); CARBON DIOXIDE 30 MMOL/L (21-32); CHLORIDE 102 MMOL/L (98-107); CREATININE SERUM 0.78 MG/DL (0.60-1.30); GFR ESTIMATED > 60; GLUCOSE 92 MG/DL (70-105); MAGNESIUM 1.6 MG/DL (1.8-2.4); POTASSIUM 3.4 MMOL/L (3.6-5.0); SODIUM 141 MMOL/L (135-145)
[2017-05-27] MEDS: ONDANSETRON 4 MG/2 ML (SDV) Z0FRAN IVP PRN ×3 (07:52→23:23)
[2017-05-27] MEDS: PANTOPRAZOLE 40 MG/10 ML (PROTONIX) VIAL IV SCH ×2 (07:52→20:48)
[2017-05-27 08:00] VITALS: BP 125/68
--- NOTE | 2017-05-27 08:09 | Progress Note (SOAP) ---
Subjective Date Seen by Provider: May 27, 2017 Time Seen by Provider: 07:55 Subjective/Events-last exam PT HAD A BAD NIGHT LAST NIGHT - FEELING WEAK, NO CONFUSION, BUT STILL FATIGUED. SHE HAD SOME NAUSEA AGAIN LAST NIGHT. SHE HAS POOR OVERALL APPETITE. Review of Systems General: Chills, Night Sweats, Fatigue, Malaise HEENT: No Head Aches Pulmonary: Dyspnea, No Cough Cardiovascular: No: Chest Pain, Palpitations Gastrointestinal: Nausea, No: Abdominal Pain Neurological: Weakness, No: Confusion Objective Exam Vital Signs Date Time Temp Pulse Resp B/P (MAP) Pulse Ox O2 Delivery O2 Flow Rate FiO2 05/27/17 03:49 98 Nasal Cannula 2.00 05/27/17 00:11 98.6 05/26/17 21:15 96 Nasal Cannula 2.00 05/26/17 20:00 Nasal Cannula 3.00 05/26/17 19:15 99.4 95 22 135/78 94 Nasal Cannula 3.00 05/26/17 16:06 90 Room Air 0.00 05/26/17 09:39 90 Room Air 0.00 05/26/17 08:16 98.2 89 20 141/69 92 Room Air Capillary Refill : Less Than 3 Seconds General Appearance: No Apparent Distress, WD/WN HEENT: PERRL/EOMI Neck: Full Range of Motion, Supple Respiratory: Chest Non Tender, Crackles, Decreased Breath Sounds Cardiovascular: Regular Rate, Rhythm, Systolic Murmur Gastrointestinal: normal bowel sounds, non tender, soft Extremity: Pedal Edema Neurologic/Psychiatric: Alert, Oriented x3 Skin: Warm/Dry Lymphatic: No Adenopathy Results Lab Laboratory Tests 05/27/17 05:10: White Blood Count 9.2, Red Blood Count 3.30L, Hemoglobin 8.9L, Hematocrit 30L, Mean Corpuscular Volume 89, Mean Corpuscular Hemoglobin 27, Mean Corpuscular Hemoglobin Concent 30L, Red Cell Distribution Width 15.5H, Platelet Count 309, Mean Platelet Volume 9.0, Neutrophils (%) (Auto) 88H, Lymphocytes (%) (Auto) 6L , Monocytes (%) (Auto) 5, Eosinophils (%) (Auto) 1, Basophils (%) (Auto) 0, Neutrophils # (Auto) 8.1H, Lymphocytes # (Auto) 0.6L, Monocytes # (Auto) 0.5, Eosinophils # (Auto) 0.1, Basophils # (Auto) 0.0, Prothrombin Time 59.3*H, INR Comment 7.0*H, Sodium Level 141, Potassium Level 3.4L, Chloride Level 102, Carbon Dioxide Level 30, Anion Gap 9, Blood Urea Nitrogen 10, Creatinine 0.78, Estimat Glomerular Filtration Rate > 60, BUN/Creatinine Ratio 13, Glucose Level 92, Calcium Level 7.7L, Magnesium Level 1.6L Microbiology 05/21/17 Influenza Types A,B Antigen (BORA) - Final, Complete 05/23/17 Urine Culture - Final, Complete Presumptive [place] Assessment/Plan Assessment/Plan Assess & Plan/Chief Complaint SUPRA-THERAPEUTIC INR CHRONIC ANTICOAGULATION URINARY TRACT INFECTION BACK PAIN GENERALIZED WEAKNESS/MALAISE RECENT FALL AT HOME DEMENTIA HYPERTENSION PLEURAL EFFUSION NAUSEA ABDOMINAL PAIN ELEVATED LFT'S TRANSIENT FEVERS SUPRA-THERAPEUTIC INR - INCREASED TO 7 TODAY - DOSE OF VITAMIN K TO BE GIVEN THIS MORNING. HOLD COUMADIN TONIGHT - CHECK DAILY INR'S. - PNEUMONIA - VANCOMYCIN - CHEST XRAY PENDING THIS MORNING. SYMPTOMS IMPROVED - FEVERS MUCH IMPROVED OVER THE WEEKEND - CONTINUE TO ENCOURAGE INCENTIVE SPIROMETRY. 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 - REPEAT UA NEGATIVE BACK PAIN - VOLTAREN GEL, IV PAIN MEDICATION. GENERALIZED WEAKNESS/MALAISE - STARTED PHYSICAL THERAPY. ABDOMINAL PAIN - WITH ELEVATED LFT'S - CHECKED CT OF ABDOMEN AND PELVIS -LIVER AND PANCREAS WERE BENIGN EXCEPT FOR SLIGHT BILIARY DILATION - LIVER ENZYMES NOW NORMAL. STARTED ON CARAFATE - ABDOMINAL PAIN IMPROVED. RECENT FALLS AT HOME - WILL NEED PT FOR GAIT TRAINING DEMENTIA - STABLE HYPERTENSION- CHRONIC - RESTARTED HOME MEDICATIONS. INTERMITTENT FEVERS - CHECKED TICK PANEL - NEGATIVE - STOPPED DOXYCYCLINE. CHECK FLU SWAB - NEGATIVE. IRON DEFICIENCY ANEMIA - STARTED ON VENOFER NEXT DOSE ON 05/28/17. MALLORIE CONTRERAS MD May 27, 2017 08:09
[2017-05-27] MEDS ORDERED: FLUCONAZOLE 100 MG/50 ML 50 ML IV NR (08:15)
[2017-05-27] MEDS ORDERED: VITAMIN K 1 MG/ML ORAL SOLN 1 ML SYRINGE PO NR (08:17)
[2017-05-27] MEDS: MAGNESIUM 1 GM/100 ML IVPB 100 ML IV SCH ×3 (08:56→13:56)
--- NOTE | 2017-05-27 09:14 | Diagnostic Imaging Report ---
INDICATION: Pneumonia and cough PA and lateral obtained at 853 hours a.m. and compared with 05/25/17. There is post sternotomy change of mild cardiomegaly. There are chronic appearing increased interstitial markings. There is some infiltrate and/or atelectasis in the right midlung and base which is similar to the prior study. There is some minimal scarring or atelectasis in the left midlung. There is a trace of pleural fluid on both sides. IMPRESSION: Unchanged diffuse increased interstitial markings with unchanged mild infiltrate and/or atelectasis in the right midlung and base. Unchanged minimal left midlung atelectasis. Trace of pleural fluid seen on both sides. Dictated by: Dictated on workstation # [id number]
[2017-05-27] MEDS: VANCOMYCIN INJECTION 750 MG in NS (IVPB) 250 ML IV SCH (10:26)
[2017-05-27] MEDS: DICLOFENAC 1% GEL 100 GM (VOLTAREN) TUBE TP SCH ×4 (10:26→20:48)
--- NOTE | 2017-05-27 11:33 | Physical Therapy Daily Note ---
PT Daily Note-Current Subjective Pt is lying in bed prior to tx and agreeable to PT. Pt states she has no current pain but was nauseous this morning and is feeling better now. Pt was sitting up in chair with nurse call, phone, tray, all needs met post tx. Pain Numeric Pain Scale: 0-No Pain Location: No Pain Reported Mental Status Patient Orientation: Person, Place, Situation Attachments: Oxygen, Lee Catheter, IV Transfers Functional [place] Measure 0=Not Assessed/NA 4=Minimal Assistance 1=Total Assistance 5=Supervision or Setup 2=Maximal Assistance 6=Modified [place] 3=Moderate Assistance 7=Complete IndependenceIRFPAI Quality Coding Scale 6 Independent with activity with or without an assistive device 5 Patient requires set up or clean up by helper. Patient completes activity by themselves 4 Supervision or touching assist (CGA). [place] provide cues , steadying assist 3 The helper provides less than half the effort to complete the activity 2 The helper provides more than half the effort to complete the activity 1 Dependent. The helper does all the effort to complete an activity 7 Patient refused to complete or attempt activity 9 The patient did not perform the activity before the current illness or injury 88 Not attempted due to Medical conditions or safety concerns Transfers (B, C, W/C) (FIM): 4 Supine to/from Sit: 4 Sit to/from Stand: 4 [place] with transfers Gait Training Does the Patient Walk?: Yes Gait (FIM): 1 Distance (FIM): 1=up to 49 ft Distance: 15' Gait Level of Assist: 4 Gait Persons Needed: 1 Gait Assistive Device: FWW Pt ambulates with FWW and close CGA for safety. Pt walks slowly with a hunched posture. Patient has been ill and didn't think she could make it out into the hallway, she walked around the bed to a recliner. Exercises Seated Therapy Exercises: Ankle pumps, Long arc quads, Glut set Seated Reps: 15 Treatments Pt completes gait training and seated exercises to increase functional mobility and LE strength. Assessment Current Status: Fair Progress Pt is weak and becomes short of breath quickly. Decreased activity tolerance and gait. PT Cath Lab Radiological Technologist Goals Nursing Home Goals PT Nursing Home Goals Time Frame: May 29, 2017 Transfers (B,C,W/C) (FIM): 6 Sit to Lying (QC): 5 Lying-Sitting on Side/Bed(QC): 5 Sit to Stand (QC): 5 Rollin Chair/[id number] Xfer(QC): 5 Does the Patient Walk: Yes Gait (FIM): 6 Gait distance (FIM): 3=150 ft Distance: >300' Walk 50ft with 2 Turns (QC): 5 Walk 150 ft (QC): 5 Gait Level of Assist: 6 Gait Assistive Device: FWW PT Plan Problem List Problem List: Activity Tolerance, Functional Strength, Safety, Balance, Gait, Transfer, Bed Mobility, ROM Treatment/Plan Treatment Plan: Continue Plan of Care Treatment Plan: Bed Mobility, Education, Functional Activity Tushar, Functional Strength, Gait, Safety, Therapeutic Exercise, Transfers Treatment Duration: May 29, 2017 Frequency: 11 times per week Estimated Hrs Per Day: .5 hour per day Patient and/or Family Agrees t: Yes Safety Risks/Education Patient Education: Gait Training, Transfer Techniques, Reviewed Precautions, Correct Positioning, Safety Issues Teaching Recipient: Patient Teaching Methods: Demonstration, Discussion Response to Teaching: Verbalize Understanding, Reinforcement Needed Time/GCodes Time In: 1108 Time Out: 1123 Total Billed Treatment Time: 15 Total Billed Treatment 1 visit 15 EX ANDREA VOGEL PT May 27, 2017 11:32
[2017-05-27] MEDS: CYPROHEPTADINE (PERIACTIN) 4 MG TAB PO SCH ×2 (11:55→20:48)
[2017-05-27] MEDS ORDERED: MAGNESIUM 1 GM/100 ML IVPB 100 ML IV ONE (12:52)
--- NOTE | 2017-05-27 14:08 | Occupational Ther Daily Note ---
OT Current Status-Daily Note Subjective Pt sitting up in chair with daughter present. Pt states she was nauseous this morning. Agreeable to treatment this pm. Mental Status/Objective Functional [place] Measure 0=Not Assessed/NA 4=Minimal Assistance 1=Total Assistance 5=Supervision or Setup 2=Maximal Assistance 6=Modified [place] 3=Moderate Assistance 7=Complete [place] ADL-Treatment Functional [place] Measure 0=Not Assessed/NA 4=Minimal Assistance 1=Total Assistance 5=Supervision or Setup 2=Maximal Assistance 6=Modified [place] 3=Moderate Assistance 7=Complete IndependenceIRFPAI Quality Coding Scale 6 Independent with activity with or without an assistive device 5 Patient requires set up or clean up by helper. Patient completes activity by themselves 4 Supervision or touching assist (CGA). [place] provide cues , steadying assist 3 The helper provides less than half the effort to complete the activity 2 The helper provides more than half the effort to complete the activity 1 Dependent. The helper does all the effort to complete an activity 7 Patient refused to complete or attempt activity 9 The patient did not perform the activity before the current illness or injury 88 Not attempted due to Medical conditions or safety concerns Other Treatment Pt declined ADLs at this time, but states she will participate in exercises. Pt performed gentle bilateral UE exercises to promote increased strength and activity tolerance needed for functional task completion. Pt performed shoulder flexion, abduction, biceps curls, and triceps extension exercises x10 reps with red theraband. Pt fatigues quickly and takes rest breaks between exercises. Bilateral hand bowling ball molder exercises x20 reps with minimal resistance therapy foam to increase bowling ball molder strength for ADLs. Pt sitting in chair with needs met and daughter present after session. OT Short Term Goals Short Term Goals 1=Demonstrate adherence to instructed precautions during ADL tasks. 2=Patient will verbalize/demonstrate understanding of assistive devices/ modifications for ADL. 3=Patient will improve strength/tolerance for activity to enable patient to perform ADL's. OT Shelter Goals Shelter Goals Time Frame: Jun 02, 2017 Eating (FIM): 6 Eating (QC): 6 Groomin Oral Hygiene (QC): 6 Bathing(FIM): 5 Upper Body Dressing(FIM): 6 Lower Body Dressing(FIM): 6 Toileting(FIM): 6 Toileting Hygiene (QC): 6 Toilet/Commode Transfer(FIM): 6 Toilet/Commode Transfer (QC): 6 Additional Goals: 2-Verbalize Understanding, 3-ImproveStrength/Tushar 1=Demonstrate adherence to instructed precautions during ADL tasks. 2=Patient will verbalize/demonstrate understanding of assistive devices/ modifications for ADL. 3=Patient will improve strength/tolerance for activity to enable patient to perform ADL's. OT Education/Plan Problem List/Assessment Pt demonstrates decreased mobility, strength, activity tolerance, and ADL functioning. Pt to benefit from skilled OT intervention for ADL training, transfers, strengthening, and home safety education to maximize level of function and allow safe discharge home. Discharge Recommendations Plan/Recommendations: Continue POC Treatment Plan/Plan of Care Patient would benefit from OT for education, treatment and training to promote independence in ADL's, mobility, safety and/or upper extremity function for ADL' s. Plan of Care: ADL Retraining, Functional Mobility, UE Funct Exercise/Act Treatment Duration: Jun 02, 2017 Frequency: 5 times per week Estimated Hrs Per Day: .5 hour per day Agreement: Yes Rehab Potential: Good Time/GCodes Start Time: 13:46 Stop Time: 10:43 Total Time Billed (hr/min): 17 Billed Treatment Time 1 visit, EX(17minutes) JULIA HUNTLEY OT May 27, 2017 14:07
--- NOTE | 2017-05-27 15:02 | Physical Therapy Daily Note ---
PT Daily Note-Current Subjective Reports Not feeling well this afternoon. Notes she feels nauseated and is chilling. Nursing is aware. Requests to do leg exercises this pm due to not feeling well. Mental Status Patient Orientation: Person, Place, Time, Situation Transfers Functional [place] Measure 0=Not Assessed/NA 4=Minimal Assistance 1=Total Assistance 5=Supervision or Setup 2=Maximal Assistance 6=Modified [place] 3=Moderate Assistance 7=Complete IndependenceIRFPAI Quality Coding Scale 6 Independent with activity with or without an assistive device 5 Patient requires set up or clean up by helper. Patient completes activity by themselves 4 Supervision or touching assist (CGA). [place] provide cues , steadying assist 3 The helper provides less than half the effort to complete the activity 2 The helper provides more than half the effort to complete the activity 1 Dependent. The helper does all the effort to complete an activity 7 Patient refused to complete or attempt activity 9 The patient did not perform the activity before the current illness or injury 88 Not attempted due to Medical conditions or safety concerns Treatments Semi reclined LE ther ex B for AP, HS, QS, GS, SAQ, and hip abduction; and seated for LAQ, toe raises and marching all 2x 10 reps each. Educated pt on importance of activity and mobility to progress functional strength. Ther ex performed to increase strength for improved gait and transfers as well as safety. Pt in chair with warm blanket and needs met post treatment. Assessment Current Status: Fair Progress Does not appear to feel well this afternoon. Chilling. Agreeable to participate but limited activity tolerance noted. PT Daytime Caregiver Goals [facility] Goals PT Daytime Caregiver Goals Time Frame: May 29, 2017 Transfers (B,C,W/C) (FIM): 6 Sit to Lying (QC): 5 Lying-Sitting on Side/Bed(QC): 5 Sit to Stand (QC): 5 Rollin Chair/Eaf-fo-Kaafq Xfer(QC): 5 Does the Patient Walk: Yes Gait (FIM): 6 Gait distance (FIM): 3=150 ft Distance: >300' Walk 50ft with 2 Turns (QC): 5 Walk 150 ft (QC): 5 Gait Level of Assist: 6 Gait Assistive Device: FWW PT Plan Problem List Problem List: Activity Tolerance, Functional Strength, Safety, Balance, Gait, Transfer Treatment/Plan Treatment Plan: Continue Plan of Care Treatment Plan: Bed Mobility, Education, Functional Activity Tushar, Functional Strength, Gait, Safety, Therapeutic Exercise, Transfers Treatment Duration: May 29, 2017 Frequency: 11 times per week Estimated Hrs Per Day: .5 hour per day Patient and/or Family Agrees t: Yes Safety Risks/Education Patient Education: Safety Issues Teaching Recipient: Patient Teaching Methods: Discussion Response to Teaching: Reinforcement Needed Time/GCodes Time In: 1430 Time Out: 1454 Total Billed Treatment Time: 24 Total Billed Treatment visit EX 24 ROSIE COHEN PT May 27, 2017 15:02
[2017-05-27] MEDS: meTOprolol SUCCINATE 100 MG (TOPROL XL) TAB PO SCH (15:51)
[2017-05-27] MEDS: LOSARTAN 25 MG (COZAAR) TAB PO SCH (15:51)
[2017-05-27] MEDS: MYRBETRIQ 50 MG TAB PO SCH (15:51)
[2017-05-27] MEDS: GABAPENTIN 100 MG (NEURONTIN) CAP PO SCH ×2 (15:51→20:03)
[2017-05-27] MEDS: ACETAMINOPHEN 325 MG TABLET/CAPLET (TYLENOL) PO PRN (17:57)
[2017-05-27] MEDS ORDERED: warFARin 1 MG (COUMADIN) TAB PO SCH (18:00)
[2017-05-27 20:11] VITALS: BP 142/69
[2017-05-28] MEDS: KETOROLAC 15 MG/ML VIAL IVP SCH ×4 (02:15→22:46)
[2017-05-28] MEDS: RT-ALBUTEROL/IPRATROPIUM 3 ML (DUONEB) VIAL INH SCH ×4 (02:28→20:30)
[2017-05-28] MEDS: CYPROHEPTADINE (PERIACTIN) 4 MG TAB PO SCH ×3 (06:17→21:36)
[2017-05-28] MEDS: LEVOTHYROXINE 25 MCG (LEVOTHROID) TAB PO SCH ×2 (06:17→08:55)
[2017-05-28] MEDS: SUCRALFATE 1 GM (CARAFATE) TAB PO SCH ×4 (06:17→21:31)
[2017-05-28] MEDS: LEVOTHYROXINE 112 MCG (LEVOTHROID) TAB PO SCH ×2 (06:17→08:56)
[2017-05-28] MEDS: KCL 20 MEQ TAB (K-DUR) PO SCH (06:18)
[2017-05-28] MEDS: CALCIUM CARBONATE 600 MG (CALCARB) TAB PO SCH ×3 (06:18→16:32)
[2017-05-28] MEDS: CATHETER FLUSH 10 ML SYR IV SCH ×3 (06:18→21:31)
[2017-05-28 06:34] LABS: MEAN PLATELET VOLUME 8.9 FL (7.4-10.4); RED BLOOD COUNT 3.2 10^6/uL (4.35-5.85); RED CELL DISTRIBUTION WIDTH 15.7 % (10.0-14.5); WHITE BLOOD COUNT 6.1 10^3/uL (4.3-11.0)
[2017-05-28 06:51] LABS: PROTHROMBIN TIME PATIENT 22.5 SEC (12.2-14.7)
[2017-05-28 06:56] LABS: ANION GAP 10 MMOL/L (5-14); BLOOD UREA NITROGEN 17 MG/DL (7-18); BUN/CREATININE RATIO 21; CALCIUM 6.4 MG/DL (8.5-10.1); CARBON DIOXIDE 30 MMOL/L (21-32); CHLORIDE 101 MMOL/L (98-107); CREATININE SERUM 0.81 MG/DL (0.60-1.30); GFR ESTIMATED > 60; GLUCOSE 93 MG/DL (70-105); MAGNESIUM 1.2 MG/DL (1.8-2.4); SODIUM 141 MMOL/L (135-145)
[2017-05-28 08:00] VITALS: BP 132/60
[2017-05-28] MEDS: PANTOPRAZOLE 40 MG/10 ML (PROTONIX) VIAL IV SCH ×2 (08:45→21:30)
--- NOTE | 2017-05-28 08:50 | Progress Note (SOAP) ---
Subjective Date Seen by Provider: May 28, 2017 Time Seen by Provider: 08:50 Subjective/Events-last exam PT HAD A BAD NIGHT AGAIN LAST NIGHT - HAD FEVER UP TO 102. HER DAUGHTER REPORTS PERSISTENT FATIGUE. SHE IS WONDERING ABOUT GETTING DR. BENSON INVOLVED TO LOOK FOR POSSIBLE CANCEROUS SOURCE OF HER ILLNESS. Review of Systems General: No Chills, Fatigue, Malaise HEENT: No Head Aches Pulmonary: Dyspnea, Cough Cardiovascular: No: Chest Pain, Palpitations Gastrointestinal: Nausea, No: Abdominal Pain Neurological: Weakness, No: Confusion Objective Exam Vital Signs Date Time Temp Pulse Resp B/P (MAP) Pulse Ox O2 Delivery O2 Flow Rate FiO2 05/28/17 03:20 99.1 05/28/17 03:00 99.1 05/28/17 02:29 91 Nasal Cannula 2.00 05/28/17 02:15 101.8 05/28/17 01:50 101.8 05/27/17 23:23 98.3 05/27/17 20:11 98.1 97 20 142/69 100 Nasal Cannula 3.00 05/27/17 20:00 Nasal Cannula 3.00 05/27/17 19:58 94 Nasal Cannula 2.00 05/27/17 18:50 98.4 05/27/17 17:57 102.0 05/27/17 09:13 99 Nasal Cannula 2.00 Capillary Refill : Less Than 3 Seconds General Appearance: No Apparent Distress, WD/WN HEENT: PERRL/EOMI, Pharynx Normal Neck: Full Range of Motion, Supple Respiratory: Chest Non Tender, Lungs Clear, Normal Breath Sounds Cardiovascular: Regular Rate, Rhythm, Systolic Murmur Gastrointestinal: normal bowel sounds, soft Extremity: Pedal Edema Neurologic/Psychiatric: Alert, Oriented x3 Skin: Warm/Dry Results Lab Laboratory Tests 05/28/17 06:28: White Blood Count 6.1, Red Blood Count 3.20L, Hemoglobin 8.7L, Hematocrit 29L, Mean Corpuscular Volume 89, Mean Corpuscular Hemoglobin 27, Mean Corpuscular Hemoglobin Concent 31L, Red Cell Distribution Width 15.7H, Platelet Count 279, Mean Platelet Volume 8.9, Prothrombin Time 22.5H, INR Comment 2.0H, Sodium Level 141, Potassium Level 4.0, Chloride Level 101, Carbon Dioxide Level 30, Anion Gap 10, Blood Urea Nitrogen 17, Creatinine 0.81, Estimat Glomerular Filtration Rate > 60, BUN/Creatinine Ratio 21, Glucose Level 93, Calcium Level 6.4L, Magnesium Level 1.2L Microbiology 05/21/17 Influenza Types A,B Antigen (BORA) - Final, Complete 05/23/17 Urine Culture - Final, Complete Presumptive [place] Assessment/Plan Assessment/Plan Assess & Plan/Chief Complaint SUPRA-THERAPEUTIC INR CHRONIC ANTICOAGULATION URINARY TRACT INFECTION BACK PAIN GENERALIZED WEAKNESS/MALAISE RECENT FALL AT HOME DEMENTIA HYPERTENSION PLEURAL EFFUSION NAUSEA ABDOMINAL PAIN ELEVATED LFT'S TRANSIENT FEVERS HYPOCALCEMIA HYPOMAGNESEMIA SUPRA-THERAPEUTIC INR - WAS 2 TODAY. REPEAT INR - WAIT TO SEE IF THE INR LEVEL GOES UP TOMORROW - CHECK DAILY INR'S. - WILL CHANGE COUMADIN DOSE TO 0.5MG NIGHTLY -IF INR IS AT OR BELOW 2 TOMORROW. PNEUMONIA - STARTED ON CEFEPIME AND ZYVOX - CHEST PERSISTENTLY SHOWING INFILTRATE - CONTINUE TO ENCOURAGE INCENTIVE SPIROMETRY. 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 - REPEAT UA NEGATIVE BACK PAIN - VOLTAREN GEL, IV PAIN MEDICATION. GENERALIZED WEAKNESS/MALAISE - STARTED PHYSICAL THERAPY. ABDOMINAL PAIN - WITH ELEVATED LFT'S - CHECKED CT OF ABDOMEN AND PELVIS -LIVER AND PANCREAS WERE BENIGN EXCEPT FOR SLIGHT BILIARY DILATION - LIVER ENZYMES NOW NORMAL. STARTED ON CARAFATE - ABDOMINAL PAIN IMPROVED. RECENT FALLS AT HOME - WILL NEED PT FOR GAIT TRAINING DEMENTIA - STABLE HYPERTENSION- CHRONIC - RESTARTED HOME MEDICATIONS. INTERMITTENT FEVERS - CHECKED TICK PANEL - NEGATIVE - STOPPED DOXYCYCLINE. HYPOCALCEMIA AND HYPOMAGNESEMIA - REPLENISH ORALLY AND IV, WILL START ON TPN DUE TO VERY POOR ORAL FOOD INTAKE. CHECK FLU SWAB - NEGATIVE. IRON DEFICIENCY ANEMIA - STARTED ON VENOFER NEXT DOSE TODAY THEN REPEAT . MALLORIE CONTRERAS MD May 28, 2017 08:50
[2017-05-28] MEDS: LOSARTAN 25 MG (COZAAR) TAB PO SCH (08:57)
[2017-05-28] MEDS: meTOprolol SUCCINATE 100 MG (TOPROL XL) TAB PO SCH (08:58)
[2017-05-28] MEDS: GABAPENTIN 100 MG (NEURONTIN) CAP PO SCH ×2 (08:59→21:31)
[2017-05-28] MEDS: fluCOnazole (DIFLUCAN) 100 MG TAB PO SCH (08:59)
[2017-05-28] MEDS: MYRBETRIQ 50 MG TAB PO SCH (09:00)
[2017-05-28] MEDS ORDERED: NS IV SCH (09:00)
[2017-05-28] MEDS ORDERED: IRON SUCROSE IV SCH (09:00)
[2017-05-28] MEDS: DICLOFENAC 1% GEL 100 GM (VOLTAREN) TUBE TP SCH ×4 (09:06→21:30)
--- NOTE | 2017-05-28 09:27 | Physical Therapy Progress Note ---
Therapy Progress Note Per Dr. Anaya verbal order/request, patient is on hold for therapies on this date due to decrease in medical status. PT to resume tomorrow if medical status improves. PT to notify OT of verbal order/request. MARIYA MAE PT May 28, 2017 09:27
[2017-05-28] MEDS ORDERED: TPN IV SCH (09:30)
[2017-05-28] MEDS: AA 4.25% W/LYTES IN D5W IV SOL 1,000 ML IV SCH ×2 (10:14→17:57)
[2017-05-28] MEDS: MAGNESIUM 1 GM/100 ML IVPB 100 ML IV SCH ×4 (10:14→15:56)
--- NOTE | 2017-05-28 11:46 | Diagnostic Imaging Report ---
EXAMINATION: Portable upright radiograph of the chest. INDICATION: PICC line placement. COMPARISON: 05/27/17. FINDINGS: Right PICC line is placed with the tip projecting in the lower right atrium. 5 cm pullback into the cavoatrial junction is recommended. The heart size is mildly enlarged. There is pulmonary vascular congestion and suggestion of a small right pleural effusion. Patchy right basilar atelectasis or infiltrate is seen. Patchy bilateral perihilar opacities are also noted. Sternotomy wires are noted. No pneumothorax. An IVC filter is seen in the upper abdomen. IMPRESSION: 1. Right PICC line is placed with the tip in the lower right atrium. 5 cm pullback is recommended. 2. Cardiomegaly with pulmonary vascular congestion. There is slight improvement in patchy right basilar infiltrates. Report was called to Mimi Espinosa/landing signal officer of Dr. Anaya by deejay at 11:45 AM. Dictated by: Dictated on workstation # [id number]
[2017-05-28] MEDS ORDERED: FUROSEMIDE 40 MG/4 ML INJ (LASIX) IVP NR (12:00)
[2017-05-28] MEDS: CEFEPIME INJECTION 2,000 MG in NS (IVPB) 50 ML IV SCH (12:37)
[2017-05-28] MEDS: POLYETHYLENE GLYCOL 17 GM (MIRALAX) PACK PO SCH (12:39)
[2017-05-28] MEDS: PROMETHAZINE INJ 25 MG/ML (PHENERGAN) AMP IVP PRN ×2 (13:29→19:58)
--- NOTE | 2017-05-28 13:54 | Occ Therapy Progress Note ---
Therapy Progress Note Physical therapist informed this occupational therapist that physician requested for all therapies to be held today. Will check on pt. tomorrow. Hold OT today. [id number] SHANNEN IGNACIO OT May 28, 2017 13:54
[2017-05-28] MEDS: ONDANSETRON 4 MG/2 ML (SDV) Z0FRAN IVP PRN (15:54)
[2017-05-28] MEDS: LINEZOLID (ZYVOX) 600 MG TAB PO SCH ×2 (15:57→21:33)
[2017-05-28] MEDS: ACETAMINOPHEN 325 MG TABLET/CAPLET (TYLENOL) PO PRN (15:57)
[2017-05-28] MEDS ORDERED: POTASSIUM CHLORIDE IV SCH ×10 (17:00)
[2017-05-28] MEDS ORDERED: SODIUM CHLORIDE IV SCH ×10 (17:00)
[2017-05-28] MEDS ORDERED: [UNRECOGNIZED DRUG - OTHER] IV SCH ×10 (17:00)
[2017-05-28] MEDS: 1/2 NS IV SOLUTION 1,000 ML IV SCH (17:15)
[2017-05-28 20:05] VITALS: BP 106/68
[2017-05-29] MEDS: ONDANSETRON 4 MG/2 ML (SDV) Z0FRAN IVP PRN ×3 (02:50→16:53)
[2017-05-29] MEDS: RT-ALBUTEROL/IPRATROPIUM 3 ML (DUONEB) VIAL INH SCH ×3 (03:01→15:00)
[2017-05-29] MEDS: PROMETHAZINE INJ 25 MG/ML (PHENERGAN) AMP IVP PRN ×2 (05:22→14:10)
[2017-05-29] MEDS: CATHETER FLUSH 10 ML SYR IV SCH ×3 (05:23→20:21)
[2017-05-29] MEDS: KETOROLAC 15 MG/ML VIAL IVP SCH ×3 (06:31→21:44)
[2017-05-29] MEDS: CYPROHEPTADINE (PERIACTIN) 4 MG TAB PO SCH ×3 (06:44→21:43)
[2017-05-29] MEDS: SUCRALFATE 1 GM (CARAFATE) TAB PO SCH ×4 (06:44→20:08)
[2017-05-29] MEDS: CALCIUM CARBONATE 600 MG (CALCARB) TAB PO SCH ×3 (06:45→17:19)
[2017-05-29] MEDS: KCL 20 MEQ TAB (K-DUR) PO SCH (06:45)
[2017-05-29 06:49] LABS: MEAN PLATELET VOLUME 9.2 FL (7.4-10.4); RED BLOOD COUNT 3.24 10^6/uL (4.35-5.85); WHITE BLOOD COUNT 8.8 10^3/uL (4.3-11.0)
[2017-05-29 07:09] LABS: ALANINE AMINOTRANSFERASE 41 U/L (0-55); ALBUMIN 2.1 GM/DL (3.2-4.5); ANION GAP 11 MMOL/L (5-14); ASPARTATE AMINO TRANSFERASE 51 U/L (5-34); BILIRUBIN,TOTAL 0.4 MG/DL (0.1-1.0); BLOOD UREA NITROGEN 26 MG/DL (7-18); BUN/CREATININE RATIO 34; CALCIUM 6.8 MG/DL (8.5-10.1); CARBON DIOXIDE 28 MMOL/L (21-32); CHLORIDE 99 MMOL/L (98-107); CREATININE SERUM 0.77 MG/DL (0.60-1.30); GFR ESTIMATED > 60; GLUCOSE 112 MG/DL (70-105); MAGNESIUM 1.7 MG/DL (1.8-2.4); PHOSPHORUS 2.5 MG/DL (2.3-4.7); POTASSIUM 3.7 MMOL/L (3.6-5.0); SODIUM 138 MMOL/L (135-145); TOTAL PROTEIN 4.3 GM/DL (6.4-8.2)
[2017-05-29 07:18] LABS: INR 1.6 (0.8-1.4); PROTHROMBIN TIME PATIENT 19.4 SEC (12.2-14.7)
[2017-05-29 08:00] VITALS: BP 128/8
[2017-05-29] MEDS: MAGNESIUM 1 GM/100 ML IVPB 100 ML IV SCH ×2 (08:09→09:35)
--- NOTE | 2017-05-29 08:58 | Progress Note (SOAP) ---
Subjective Date Seen by Provider: May 29, 2017 Time Seen by Provider: 09:30 Subjective/Events-last exam PT REPORTS THAT SHE IS STILL FEELING POORLY - HER DAUGHTER REPORTS THAT SHE HAD SOME HEMATEMESIS LAST NIGHT/EARLY THIS MORNING. SHE REPORTS THAT SHE HAS NAUSEA, AND JUST DOES NOT FEEL WELL. Review of Systems General: Fatigue, Malaise HEENT: No Head Aches Pulmonary: Dyspnea, No Cough Cardiovascular: No: Chest Pain, Palpitations Gastrointestinal: Nausea Neurological: Weakness, No: Confusion Objective Exam Vital Signs Date Time Temp Pulse Resp B/P (MAP) Pulse Ox O2 Delivery O2 Flow Rate FiO2 05/29/17 08:39 97 Nasal Cannula 4.50 05/29/17 03:02 94 Nasal Cannula 4.50 05/29/17 00:00 97.1 05/28/17 20:30 91 Nasal Cannula 3.50 05/28/17 20:05 98.9 86 22 106/68 94 Nasal Cannula 3.50 05/28/17 20:00 Nasal Cannula 3.00 05/28/17 17:16 98.4 05/28/17 15:57 100.2 05/28/17 14:30 92 Nasal Cannula 3.50 05/28/17 13:56 97 Capillary Refill : Less Than 3 Seconds General Appearance: No Apparent Distress, WD/WN HEENT: PERRL/EOMI Neck: Supple Respiratory: Chest Non Tender, Crackles, Decreased Breath Sounds Cardiovascular: Regular Rate, Rhythm, Systolic Murmur Gastrointestinal: normal bowel sounds, non tender, soft Extremity: Normal Capillary Refill, No Pedal Edema Neurologic/Psychiatric: Alert, Oriented x3, No Motor/Sensory Deficits, Normal Mood/Affect Skin: Warm/Dry Lymphatic: No Adenopathy Results Lab Laboratory Tests 05/28/17 13:35: Prealbumin 5.0L 05/29/17 06:40: White Blood Count 8.8, Red Blood Count 3.24L, Hemoglobin 8.8L, Hematocrit 29L, Mean Corpuscular Volume 90, Mean Corpuscular Hemoglobin 27, Mean Corpuscular Hemoglobin Concent 30L, Red Cell Distribution Width 16.0H, Platelet Count 233, Mean Platelet Volume 9.2, Prothrombin Time 19.4H, INR Comment 1.6H, Sodium Level 138, Potassium Level 3.7, Chloride Level 99, Carbon Dioxide Level 28, Anion Gap 11, Blood Urea Nitrogen 26H, Creatinine 0.77, Estimat Glomerular Filtration Rate > 60, BUN/Creatinine Ratio 34, Glucose Level 112H, Calcium Level 6.8L, Phosphorus Level 2.5, Magnesium Level 1.7L, Total Bilirubin 0.4, Aspartate Amino Transf (AST/SGOT) 51H, Alanine Aminotransferase (ALT/SGPT) 41, Alkaline Phosphatase 141H, Total Protein 4.3L, Albumin 2.1L Microbiology 05/28/17 Blood Culture - Preliminary, Resulted No growth 05/21/17 Influenza Types A,B Antigen (BORA) - Final, Complete 05/23/17 Urine Culture - Final, Complete Presumptive [place] Assessment/Plan Assessment/Plan Assess & Plan/Chief Complaint SUPRA-THERAPEUTIC INR CHRONIC ANTICOAGULATION URINARY TRACT INFECTION BACK PAIN GENERALIZED WEAKNESS/MALAISE RECENT FALL AT HOME DEMENTIA HYPERTENSION PLEURAL EFFUSION NAUSEA ABDOMINAL PAIN ELEVATED LFT'S TRANSIENT FEVERS HYPOCALCEMIA HYPOMAGNESEMIA HEMATEMESIS SUPRA-THERAPEUTIC INR - INR 1.6 TODAY - RESTART COUMADIN DOSE AT 0.5MG NIGHTLY- CHECK DAILY INR'S PNEUMONIA - STARTED ON CEFEPIME AND ZYVOX - CHEST PERSISTENTLY SHOWING INFILTRATE - CONTINUE TO ENCOURAGE INCENTIVE SPIROMETRY. HEMATEMESIS - EGD TODAY - POSITIVE FOR A VERY SMALL ANTRAL ULCER PER DR. COHEN - CONTINUE WITH PPI BID AND CARAFATE. 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 - REPEAT UA NEGATIVE BACK PAIN - VOLTAREN GEL, IV PAIN MEDICATION. GENERALIZED WEAKNESS/MALAISE - STARTED PHYSICAL THERAPY. ABDOMINAL PAIN - WITH ELEVATED LFT'S - CHECKED CT OF ABDOMEN AND PELVIS -LIVER AND PANCREAS WERE BENIGN EXCEPT FOR SLIGHT BILIARY DILATION - LIVER ENZYMES NOW NORMAL. STARTED ON CARAFATE - ABDOMINAL PAIN IMPROVED. RECENT FALLS AT HOME - WILL NEED PT FOR GAIT TRAINING DEMENTIA - STABLE HYPERTENSION- CHRONIC - RESTARTED HOME MEDICATIONS. INTERMITTENT FEVERS - CHECKED TICK PANEL - NEGATIVE - STOPPED DOXYCYCLINE. HYPOCALCEMIA AND HYPOMAGNESEMIA - REPLENISH ORALLY AND IV, PT WAS STARTED ON TPN DUE TO VERY POOR ORAL FOOD INTAKE. CHECK FLU SWAB - NEGATIVE. IRON DEFICIENCY ANEMIA - STARTED ON VENOFER NEXT DOSE TODAY THEN REPEAT . MALLORIE CONTRERAS MD May 29, 2017 08:58
[2017-05-29] MEDS: ASPIRIN E.C. 81 MG (ECOTRIN) TAB PO SCH (09:52)
[2017-05-29] MEDS: fluCOnazole (DIFLUCAN) 100 MG TAB PO SCH (09:52)
[2017-05-29] MEDS: GABAPENTIN 100 MG (NEURONTIN) CAP PO SCH ×2 (09:53→20:21)
[2017-05-29] MEDS: LINEZOLID (ZYVOX) 600 MG TAB PO SCH ×2 (09:53→20:21)
[2017-05-29] MEDS: meTOprolol SUCCINATE 100 MG (TOPROL XL) TAB PO SCH (09:56)
[2017-05-29] MEDS ORDERED: FUROSEMIDE 40 MG/4 ML INJ (LASIX) IVP NR (10:00)
[2017-05-29] MEDS: PANTOPRAZOLE 40 MG/10 ML (PROTONIX) VIAL IV SCH ×2 (10:06→20:08)
--- NOTE | 2017-05-29 10:13 | Physical Therapy Progress Note ---
Therapy Progress Note Patient adamantly declined PT intervention on this date due to feeling ill and decline in medical status. Patient and PT discussed continued plan and PT will continue to monitor patient's medical status and provide intervention when deemed appropriate. 1 ref MARIYA MAE PT May 29, 2017 10:13
--- NOTE | 2017-05-29 10:33 | Occ Therapy Progress Note ---
Therapy Progress Note Spoke with RN this am regarding pt's status and plan of care. RN requests to continue to hold therapy at this time secondary to current medical status. Will continue to monitor and provide therapy as appropriate. JULIA HUNTLEY OT May 29, 2017 10:33
[2017-05-29] MEDS: METOCLOPRAMIDE INJ 10 MG/2 ML (REGLAN) IVP SCH ×2 (10:35→21:44)
[2017-05-29] MEDS: NS IV SCH (10:39)
[2017-05-29] MEDS: IRON SUCROSE IV SCH (10:39)
[2017-05-29] MEDS: CEFEPIME INJECTION 2,000 MG in NS (IVPB) 50 ML IV SCH (10:40)
--- NOTE | 2017-05-29 11:49 | Consultation ---
History of Present Illness History of Present Illness Patient Consulted On(pankaj/time) 05/29/17 11:43 Time Seen by Provider: 11:22 History of Present Illness Surgery asked to consult regarding Hematemesis. HPI: Pt is a 87 yo female initially admitted to the hospital with low back pain , abd pain and falls. Found to have UTI, supertherapeutic INR and anemia. Now starting to have lower extremity edema, possible early pneumonia and anemia continues to creep down. She does live alone at home and is normally very with it, but over past few days has been slightly confused. This information obtained from the daughter. Yesterday afternoon had an episode of hematemesis. According to the daughter she has never had this before , no hx of EGD or colonoscopy that daughter can remember. She has not really complained of any abdominal pain since a few days after she first came into the hospital. She does have a yeast infection now. Daughter does not think she has had complaints of heartburn in the past. She has been in the hospital for 17 days now. Allergies and Home Medications Allergies Coded Allergies: meperidine (Verified Allergy, Unknown, 07/28/14) pentazocine (Verified Allergy, Unknown, 07/28/14) codeine (Verified Adverse Reaction, Mild, NAUSEA, 07/28/14) morphine (Verified Adverse Reaction, Mild, NAUSEA, 07/28/14) Home Medications Alendronate Sodium 70 Mg Tablet, 70 MG PO We, (Reported) Aspirin 81 Mg Tablet.dr, 81 MG PO MoFr, (Reported) Cholecalciferol (Vitamin D3) 2,000 Unit Capsule, 2,000 UNIT PO DAILY, (Reported) Cyanocobalamin (Vitamin B-12) 500 Mcg Tablet, 500 MCG PO DAILY, (Reported) Diclofenac Sodium 100 Gm Gel..gram., TP DAILY PRN for BACK PAIN, (Reported) Docusate Sodium 100 Mg Capsule, 100 MG PO HS, (Reported) Hydrochlorothiazide 25 Mg Tablet, 25 MG PO DAILY, (Reported) L. Acidophilus/Bulgaricus 1 Each Tab.chew, 1 TAB.CHEW PO 1500, (Reported) Levothyroxine Sodium 137 Mcg Tablet, 137 MCG PO DAILY, (Reported) Losartan Potassium 25 Mg Tablet, 25 MG PO DAILY, (Reported) Memantine HCl 10 Mg Tablet, 10 MG PO BID, (Reported) Metoprolol Succinate 100 Mg Tab.er.24h, 100 MG PO DAILY, (Reported) Mirabegron 50 Mg Tab.er.24h, 50 MG PO DAILY, (Reported) Multivit-Minerals/Folic Acid 80 Mcg Tab.chew, 2 TAB.CHEW PO DAILY, (Reported) Polyethylene Glycol 3350 17 Gm Powd.pack, 17 GM PO Q72H, (Reported) Potassium Chloride 10 Meq Capsule.er, 10 MEQ PO DAILY, (Reported) Pravastatin Sodium 10 Mg Tablet, 10 MG PO DAILY, (Reported) Vit C/E/Zn/Coppr/Lutein/Zeaxan 1 Each Capsule, 1 CAP PO BID, (Reported) Warfarin Sodium 2 Mg Tablet, 4 MG PO 2100, (Reported) TAKES 2 (2MG) TABLETS [Slow Iron] , 45 MG PO MoThSa, (Reported) 45MG ELEMENTAL IRON Past Ygjosbg-Rbjrdj-Bextfr Hx Patient Social History Alcohol Use: Rarely Uses (occasional glass of wine at night) Smoking Status: Never a Smoker (did smoke for one year in her 20's) Former Smoker, Quit: December 15, 1948 Type Used: Cigarettes 2nd Hand Smoke Exposure: No Recent Hopitalizations: No Immunizations Up To Date Tetanus Booster (TDap): Unknown PED Vaccines UTD: No Date of Pneumonia Vaccine: Jul 17, 2009 Date of Influenza Vaccine: Apr 17, 2014 Seasonal Allergies Seasonal Allergies: No Surgeries History of Surgeries: Yes (D&C, MASTECTOMY, hernia) Surgeries: Adenoidectomy, Appendectomy, Bladder Surgery, Cardiac, Eye Surgery, Gallbladder, Hysterectomy, Lumpectomy, Orthopedic, Thyroidectomy, Tonsillectomy Respiratory History of Respiratory Disorde: No Cardiovascular History of Cardiac Disorders: Yes (HEART VALVE REPLACEMENT FEBRUARY 2014 ) Cardiac Disorders: Heart Attack, High Cholesterol, Hypertension Neurological History of Neurological Disord: No (daughter wonders about first stage of Alhemzier) Neurological Disorders: Dementia Reproductive System Hx Reproductive Disorders: No Sexually Transmitted Disease: No HIV/AIDS: No Female Reproductive Disorders: Denies Genitourinary Genitourinary Disorders: UTI-Chronic Gastrointestinal History of Gastrointestinal Di: Yes Gastrointestinal Disorders: Chronic Diarrhea, Gall Bladder Disease Musculoskeletal History of Musculoskeletal Dis: Yes (TOTAL KNEE X2, HX LEFT COLLARBONE FX ) Musculoskeletal Disorders: Arthritis, Chronic Back Pain, Fractures Endocrine History of Endocrine Disorders: Yes (THYROIDECTOMY FOR GOITER) Endocrine Disorders: Hypothyroidsim HEENT History of HEENT Disorders: Yes HEENT Disorders: Cataract, Double Vision Hearing Impairment: Hard of Hearing Cancer History of Cancer: Yes (HX OF BREAST CA ) Cancer: Breast Psychosocial History of Psychiatric Problem: No Integumentary History of Skin or Integumenta: No Blood Transfusions History of Blood Disorders: Yes (BLOOD CLOTS) Adverse Reaction to a Blood Tr: No Family Medical History Significant Family History: Heart Disease, Cancer, Hypertension Family Medial History: FH: breast cancer 19 MOTHER AUNT AUNT AUNT DAUGHTER FH: cancer of GI tract G8 BROTHER FH: lung cancer 19 FATHER G8 BROTHER Myocardial infarction G8 BROTHER G8 BROTHER G8 BROTHER Review of Systems-General Constitutional: dizziness, fever, malaise, weakness EENTM: hearing loss, vision loss, No epistaxis Respiratory: No cough, No dyspnea on exertion, No hemoptysis, short of breath Cardiovascular: No chest pain, Hx of Intervention, palpitations, vascular heart diseas Gastrointestinal: No abdominal pain, No diarrhea, hematemesis, No jaundice, No melena Genitourinary: No hematuria, incontinence Musculoskeletal: No joint pain, No joint swelling, No muscle stiffness Skin: No hx of skin cancer, No lesions, No rash Psychiatric/Neurological: Denies Emotional Problems, Denies Seizure Other denies any abnormal bleeding or bruising Physical Exam-General Problems Physical Exam Vital Signs Vital Sign - Last 12Hours 05/23/17 05/23/17 05/23/17 05/25/17 00:00 02:00 08:00 12:22 Temp 97.9 Pulse 81 Resp 20 B/P (MAP) 126/75 Pulse Ox 94 O2 Delivery Nasal Cannula O2 Flow Rate 3.00 FiO2 32 Capillary Refill : Less Than 3 Seconds General Appearance: mild distress (chronically ill), thin Eyes: Bilateral Eye EOMI, Bilateral Eye Other (surgical pupil) HEENT: No scleral icterus (R), No scleral icterus (L), No pale conjunctivae (R) , No pale conjunctivae (L), No pharyngeal erythema Neck: limited range of motion, No thyromegaly Respiratory: lungs clear, no respiratory distress Cardiovascular: regular rate, rhythm, no murmur, other (+2 pitting edema in right foot and 1-2 in left foot) Gastrointestinal: normal bowel sounds, soft, no organomegaly, no pulsatile mass Extremities: no calf tenderness, normal capillary refill, No calf tenderness, other (hx of michelle filter for numerous DVT ) Neurologic/Psychiatric: alert (wakes up to name and knows she is in hospital), No facial droop Skin: cool, pallor Lymphatic: no adenopathy (neck, axilla or groin) Data Review Labs Laboratory Tests 05/28/17 13:35: Prealbumin 5.0L 05/29/17 06:40: White Blood Count 8.8, Red Blood Count 3.24L, Hemoglobin 8.8L, Hematocrit 29L, Mean Corpuscular Volume 90, Mean Corpuscular Hemoglobin 27, Mean Corpuscular Hemoglobin Concent 30L, Red Cell Distribution Width 16.0H, Platelet Count 233, Mean Platelet Volume 9.2, Prothrombin Time 19.4H, INR Comment 1.6H, Sodium Level 138, Potassium Level 3.7, Chloride Level 99, Carbon Dioxide Level 28, Anion Gap 11, Blood Urea Nitrogen 26H, Creatinine 0.77, Estimat Glomerular Filtration Rate > 60, BUN/Creatinine Ratio 34, Glucose Level 112H, Calcium Level 6.8L, Phosphorus Level 2.5, Magnesium Level 1.7L, Total Bilirubin 0.4, Aspartate Amino Transf (AST/SGOT) 51H, Alanine Aminotransferase (ALT/SGPT) 41, Alkaline Phosphatase 141H, Total Protein 4.3L, Albumin 2.1L Microbiology 05/28/17 Blood Culture - Preliminary, Resulted No growth 05/21/17 Influenza Types A,B Antigen (BORA) - Final, Complete 05/23/17 Urine Culture - Final, Complete Presumptive [place] Assessment/Plan Assessment/Plan Assessment/Plan 1. Hematemesis - unknown source. Plan is EGD with possible biopsy; discussed with daughter and pt risks and complications not limited to pain, bleeding, infection and esophageal rupture. 2. Anemia possibly secondary to number 1 vs. Iron Deficiency 3. Pedal edema - on lasix, with quan 4. Hypercoagulable state - has resolved INR is 1.2 today Per Medicine: 1. Pneumonia--on Vancomycin 2. Supertherapeutic INR 3. Weakness--doing PT and OT and plan is for transfer to Inpatient Rehab Unit 4. Hypomagnesemia--replace magnesium 5. Iron Def Anemia--on Venofer, repeat H/H in AM 6. Hypertension--back on home meds WOLF COHEN DO May 29, 2017 11:49
[2017-05-29] MEDS ORDERED: proPOfol 200 MG/20 ML (DIPRIVAN) VIAL IV ONE (12:09)
[2017-05-29] MEDS ORDERED: MIDAZOLAM 2 MG/2 ML (VERSED) VIAL ONE (12:10)
[2017-05-29] MEDS: DICLOFENAC 1% GEL 100 GM (VOLTAREN) TUBE TP SCH ×4 (12:23→20:08)
[2017-05-29] MEDS ORDERED: NS IV 500 ML 500 ML ONE (12:51)
[2017-05-29] MEDS ORDERED: HURRICAINE EXT TUBE (BENZOCAINE) ONE (12:52)
[2017-05-29] MEDS: NS IV 500 ML 500 ML IV SCH (13:00)
--- NOTE | 2017-05-29 13:27 | Progress Note-Post Operative ---
Post-Operative Progess Note Surgeon (s)/Grounds Cleaner (s) Surgeon WOLF COHEN DO Grounds Cleaner: none Pre-Operative Diagnosis Hematemesis Post-Operative Diagnosis Gastric Ulcer Duodenitis Gastritis Prominent Esophageal veins Hiatal hernia Procedure & Operative Findings Date of Procedure 05/29/17 Procedure Performed/Findings EGD with bx Anesthesia Type IV sedation by Anesthesiologist Estimated Blood Loss Estimated blood loss (mL): scant Specimens/Packing Specimens Removed Duodenal bx Antral Bx WOLF COHEN DO May 29, 2017 13:27
[2017-05-29] MEDS: ENOXAPARIN 40 MG/0.4 ML (LOVENOX) SYR SC SCH (14:11)
[2017-05-29] MEDS ORDERED: HURRICAINE EXT TUBE (BENZOCAINE) XX ONE (14:30)
[2017-05-29] MEDS: 1/2 NS IV SOLUTION 1,000 ML IV SCH (15:08)
[2017-05-29] MEDS: warFARin 1 MG (COUMADIN) TAB PO SCH (18:00)
[2017-05-29] MEDS: POTASSIUM CHLORIDE IV SCH ×10 (18:00)
[2017-05-29] MEDS: SODIUM CHLORIDE IV SCH ×10 (18:00)
[2017-05-29] MEDS: [UNRECOGNIZED DRUG - OTHER] IV SCH ×10 (18:00)
[2017-05-29 19:30] VITALS: BP 131/60
[2017-05-30] MEDS: RT-ALBUTEROL/IPRATROPIUM 3 ML (DUONEB) VIAL INH SCH ×5 (01:49→21:00)
[2017-05-30] MEDS: 1/2 NS IV SOLUTION 1,000 ML IV SCH ×3 (04:02→21:36)
[2017-05-30] MEDS: LEVOTHYROXINE 25 MCG (LEVOTHROID) TAB PO SCH (05:59)
[2017-05-30] MEDS: LEVOTHYROXINE 112 MCG (LEVOTHROID) TAB PO SCH (05:59)
[2017-05-30] MEDS: CYPROHEPTADINE (PERIACTIN) 4 MG TAB PO SCH ×3 (05:59→21:31)
[2017-05-30] MEDS: KCL 20 MEQ TAB (K-DUR) PO SCH (06:00)
[2017-05-30] MEDS: SUCRALFATE 1 GM (CARAFATE) TAB PO SCH ×4 (06:00→19:49)
[2017-05-30] MEDS: CALCIUM CARBONATE 600 MG (CALCARB) TAB PO SCH ×3 (06:00→17:11)
[2017-05-30] MEDS: CATHETER FLUSH 10 ML SYR IV SCH ×3 (06:00→21:31)
[2017-05-30] MEDS: NS IV 500 ML 500 ML IV SCH ×2 (06:09→22:56)
[2017-05-30 06:31] LABS: INR 1.4 (0.8-1.4)
[2017-05-30 06:44] LABS: ALANINE AMINOTRANSFERASE 63 U/L (0-55); ANION GAP 9 MMOL/L (5-14); ASPARTATE AMINO TRANSFERASE 84 U/L (5-34); BILIRUBIN,TOTAL 0.3 MG/DL (0.1-1.0); BLOOD UREA NITROGEN 26 MG/DL (7-18); BUN/CREATININE RATIO 37; CARBON DIOXIDE 28 MMOL/L (21-32); CHLORIDE 101 MMOL/L (98-107); GFR ESTIMATED > 60; GLUCOSE 93 MG/DL (70-105); POTASSIUM 3.6 MMOL/L (3.6-5.0); SODIUM 138 MMOL/L (135-145); TOTAL PROTEIN 4.2 GM/DL (6.4-8.2)
[2017-05-30 08:00] VITALS: BP 130/72
[2017-05-30] MEDS: PANTOPRAZOLE 40 MG/10 ML (PROTONIX) VIAL IV SCH ×2 (09:16→19:48)
[2017-05-30] MEDS: LINEZOLID (ZYVOX) 600 MG TAB PO SCH ×2 (09:17→20:44)
[2017-05-30] MEDS: ONDANSETRON 4 MG/2 ML (SDV) Z0FRAN IVP PRN ×4 (09:23→21:30)
[2017-05-30] MEDS: ENOXAPARIN 40 MG/0.4 ML (LOVENOX) SYR SC SCH (09:28)
--- NOTE | 2017-05-30 09:32 | Physical Therapy Progress Note ---
Therapy Progress Note RN requested hold PT this date. SOLANGE ISSA DPT May 30, 2017 09:32
--- NOTE | 2017-05-30 09:43 | Diagnostic Imaging Report ---
INDICATION: Cough, followup pneumonia. COMPARISON: 05/28/2017. FINDINGS: Right PICC has been retracted and now has tip in the lower SVC. Heterogeneous opacities in the right lung base have not significantly changed. Opacities in the right upper lung zone are more linear in nature. Linear atelectasis is also present in the left midlung. Small right pleural effusion. Trace left pleural effusion. No pneumothorax. Stable cardiomediastinal silhouette. IMPRESSION: 1. Improving but persistent multifocal airspace opacities with some residual opacities now likely representing residual scar and/or atelectasis. 2. Small right and trace left pleural effusions. Dictated by: Dictated on workstation # [id number]
[2017-05-30] MEDS: METOCLOPRAMIDE INJ 10 MG/2 ML (REGLAN) IVP SCH ×2 (10:00→21:31)
[2017-05-30] MEDS: CEFEPIME INJECTION 2,000 MG in NS (IVPB) 50 ML IV SCH (10:00)
[2017-05-30] MEDS: DICLOFENAC 1% GEL 100 GM (VOLTAREN) TUBE TP SCH ×4 (12:06→20:44)
--- NOTE | 2017-05-30 12:36 | Progress Note ---
Subjective Date Seen by Provider: May 30, 2017 Time Seen by Provider: 11:02 Subjective/Events-last exam Pt seen today, daughter states she has been basically sleeping since last night. Pt has not complained of any abdominal pain and no further episodes of hematemesis. In discussing care with patient's daughter, she does not think patient would want any major surgery. We did find a Gastric Ulcer yesterday on EGD. Review of Systems General: Fatigue, Malaise HEENT: No Head Aches, No Visual Changes, No Dysphasia Pulmonary: No Dyspnea, No Cough Cardiovascular: No: Chest Pain, Palpitations Gastrointestinal: No: Nausea, Vomiting, Abdominal Pain, Hematochezia (Had prior to EGD scope but has not since) Neurological: Confusion, No: Seizures Objective Exam Vital Signs Date Time Temp Pulse Resp B/P (MAP) Pulse Ox O2 Delivery O2 Flow Rate FiO2 05/30/17 08:00 95 Nasal Cannula 2.00 05/30/17 08:00 97.3 105 20 130/72 95 Nasal Cannula 1.50 05/30/17 07:10 92 Nasal Cannula 3.00 05/30/17 03:13 94 Nasal Cannula 3.00 05/29/17 20:10 Nasal Cannula 3.00 05/29/17 19:30 99.1 95 24 131/60 93 Nasal Cannula 1.50 05/29/17 17:00 97.9 I & O 05/31/17 07:00 Intake Total 100 ml Balance 100 ml Capillary Refill : Less Than 3 Seconds General Appearance: No Apparent Distress, Thin HEENT: PERRL/EOMI, Pharynx Normal Neck: Non Tender, Supple Respiratory: Chest Non Tender, Lungs Clear, Crackles, Decreased Breath Sounds Cardiovascular: Regular Rate, Rhythm, No Murmur, Systolic Murmur Gastrointestinal: normal bowel sounds, non tender, soft Extremity: Non Tender, No Pedal Edema Skin: Normal Color, Warm/Dry Lymphatic: No Adenopathy (of neck, axilla, or groin) Results Lab Laboratory Tests 05/30/17 06:07: Prothrombin Time 17.0H, INR Comment 1.4, Sodium Level 138, Potassium Level 3.6, Chloride Level 101, Carbon Dioxide Level 28, Anion Gap 9, Blood Urea Nitrogen 26H, Creatinine 0.70, Estimat Glomerular Filtration Rate > 60, BUN/Creatinine Ratio 37, Glucose Level 93, Calcium Level 7.0L, Phosphorus Level 2.2L, Magnesium Level 2.0, Total Bilirubin 0.3, Aspartate Amino Transf (AST/SGOT) 84H , Alanine Aminotransferase (ALT/SGPT) 63H, Alkaline Phosphatase 288H, Total Protein 4.2L, Albumin 2.0L Microbiology 05/28/17 Blood Culture - Preliminary, Resulted No growth 05/29/17 C. difficile GDH Antigen & Toxins - Final, Complete 05/21/17 Influenza Types A,B Antigen (BORA) - Final, Complete 05/23/17 Urine Culture - Final, Complete Presumptive [place] Assessment/Plan Assessment/Plan Assessment/Plan Gastric Ulcer - not bleeding at this time. Pt has already been started on Carafate and Protonix BID. Would wait to see if gastric biopsies show H. Pylori ; that would be only other thing to add to pt's treatment at this time. Continue with maximal medical management and supportive care. WOLF COHEN DO May 30, 2017 12:36
[2017-05-30] MEDS: fentaNYL INJECTION 100 MCG/2 ML AMP IV PRN ×3 (12:46→17:22)
--- NOTE | 2017-05-30 13:53 | Progress Note-Hospitalist ---
Progress Note Progress Notes/Assess & Plan Date Seen 05/30/17 Time Seen by Provider: 12:00 Diagonsis/Assessment & Plan Chart Review: No fever Vitals stable Labs yesterday reviewed, all normal except AST/ALT 84/63 and Alk phos 288 CXR improving? Pt on Cefepime and TPN Patient Interview: Pt was unconscious upon interview. Interview was conducted with daughter: Pt woke up this morning before her CT and asked for warm washcloth. Pt will wake occasionally Scope was done yesterday and an ulcer was found, but it was not bleeding. Biopsies were done but surgery was not recommended for CA due to the pt's condition. Daughter does not want her to suffer Physical exam stable. Pt is hardly eating Living Will was discussed with daughter. Will and Power of Molding Manager were just revisited the daughter states and in temporary situations, the daughter states she can make decisions, but in other cases they will seek guidance from two physicians. Daughter was visibly upset and has been thinking about the pt's prognosis Daughter states that the pt woke recently and said she saw the daughter's father , she also said she will be okay AFVSS, comatose, declined since last seen 2 weeks ago RRR w/murmur CTAB poor excursion Assessment: Facility acquired pneumonia Poor PO intake requiring TPN GI ulcer noted on EGD yesterday placed on PPI and Carafate Supra-therapeutic INR on low dose of Coumadin and maintained on Lovenox for bridge Comatose status with very poor prognosis but still DNR and daughter tearful but still appears to be in denial about her mother's major decline the past 18 days while in hospital Plan: Monitor pt closely Maintain TPN and abx Very poor prognosis and still maintained a full code which would be futile in my medical opinion Very declined and now comatose Scribed by Angie Chambers under the direct supervision of Dr. Erwin. ELLEN ERWIN DO May 30, 2017 13:53
[2017-05-30] MEDS: PROMETHAZINE INJ 25 MG/ML (PHENERGAN) AMP IVP PRN ×2 (15:31→19:48)
[2017-05-30] MEDS: GABAPENTIN 100 MG (NEURONTIN) CAP PO SCH ×2 (15:43→20:44)
[2017-05-30] MEDS: fluCOnazole (DIFLUCAN) 100 MG TAB PO SCH (15:43)
[2017-05-30] MEDS: meTOprolol SUCCINATE 100 MG (TOPROL XL) TAB PO SCH (15:43)
[2017-05-30] MEDS: warFARin 1 MG (COUMADIN) TAB PO SCH (17:21)
[2017-05-30] MEDS: [UNRECOGNIZED DRUG - OTHER] IV SCH ×10 (17:47)
[2017-05-30] MEDS: SODIUM CHLORIDE IV SCH ×10 (17:47)
[2017-05-30] MEDS: POTASSIUM CHLORIDE IV SCH ×10 (17:47)
[2017-05-30 19:43] VITALS: BP 138/63
[2017-05-30] MEDS: KETOROLAC 15 MG/ML VIAL IVP PRN (21:31)
[2017-05-31] MEDS: RT-ALBUTEROL/IPRATROPIUM 3 ML (DUONEB) VIAL INH SCH ×3 (03:11→21:53)
[2017-05-31] MEDS: CYPROHEPTADINE (PERIACTIN) 4 MG TAB PO SCH ×3 (05:55→21:34)
[2017-05-31] MEDS: LEVOTHYROXINE 25 MCG (LEVOTHROID) TAB PO SCH (05:55)
[2017-05-31] MEDS: CATHETER FLUSH 10 ML SYR IV SCH ×3 (05:55→22:04)
[2017-05-31] MEDS: LEVOTHYROXINE 112 MCG (LEVOTHROID) TAB PO SCH (05:55)
[2017-05-31] MEDS: SUCRALFATE 1 GM (CARAFATE) TAB PO SCH ×4 (05:55→22:02)
[2017-05-31] MEDS: KCL 20 MEQ TAB (K-DUR) PO SCH (05:56)
[2017-05-31] MEDS: ONDANSETRON 4 MG/2 ML (SDV) Z0FRAN IVP PRN ×3 (05:56→20:03)
[2017-05-31] MEDS: CALCIUM CARBONATE 600 MG (CALCARB) TAB PO SCH ×3 (05:56→16:35)
[2017-05-31 06:27] LABS: INR 1.1 (0.8-1.4); PROTHROMBIN TIME PATIENT 14.6 SEC (12.2-14.7)
[2017-05-31 06:39] LABS: ALANINE AMINOTRANSFERASE 94 U/L (0-55); ALBUMIN 2.2 GM/DL (3.2-4.5); ANION GAP 8 MMOL/L (5-14); ASPARTATE AMINO TRANSFERASE 116 U/L (5-34); BILIRUBIN,TOTAL 0.5 MG/DL (0.1-1.0); BLOOD UREA NITROGEN 26 MG/DL (7-18); BUN/CREATININE RATIO 37; CALCIUM 7.2 MG/DL (8.5-10.1); CARBON DIOXIDE 28 MMOL/L (21-32); CHLORIDE 102 MMOL/L (98-107); GFR ESTIMATED > 60; GLUCOSE 87 MG/DL (70-105); MAGNESIUM 1.8 MG/DL (1.8-2.4); PHOSPHORUS 2.2 MG/DL (2.3-4.7); SODIUM 138 MMOL/L (135-145); TOTAL PROTEIN 4.2 GM/DL (6.4-8.2); TRIGLYCERIDES 107 MG/DL (<150)
[2017-05-31 08:00] VITALS: BP 137/72
[2017-05-31 09:26] VITALS: BP 138/63
[2017-05-31] MEDS: LINEZOLID (ZYVOX) 600 MG TAB PO SCH ×2 (09:36→22:03)
[2017-05-31] MEDS: meTOprolol SUCCINATE 100 MG (TOPROL XL) TAB PO SCH (09:36)
[2017-05-31] MEDS: GABAPENTIN 100 MG (NEURONTIN) CAP PO SCH ×2 (09:36→22:03)
[2017-05-31] MEDS: fluCOnazole (DIFLUCAN) 100 MG TAB PO SCH (09:36)
[2017-05-31] MEDS: ENOXAPARIN 40 MG/0.4 ML (LOVENOX) SYR SC SCH (09:37)
[2017-05-31] MEDS: PANTOPRAZOLE 40 MG/10 ML (PROTONIX) VIAL IV SCH ×2 (09:37→22:03)
[2017-05-31] MEDS: IRON SUCROSE IV SCH (09:37)
[2017-05-31] MEDS: NS IV SCH (09:37)
[2017-05-31] MEDS: DICLOFENAC 1% GEL 100 GM (VOLTAREN) TUBE TP SCH ×4 (09:38→22:03)
[2017-05-31] MEDS: PROMETHAZINE INJ 25 MG/ML (PHENERGAN) AMP IVP PRN ×3 (09:56→21:48)
[2017-05-31] MEDS: POLYETHYLENE GLYCOL 17 GM (MIRALAX) PACK PO SCH (10:55)
[2017-05-31] MEDS ORDERED: RT-ALBUTEROL/IPRATROPIUM 3 ML (DUONEB) VIAL INH PRN (11:00)
--- NOTE | 2017-05-31 11:07 | OPERATIVE REPORT ---
DATE OF SERVICE: 05/29/2017 PREOPERATIVE DIAGNOSIS: Hematemesis. POSTOPERATIVE DIAGNOSES: 1. Gastric ulcer. 2. Duodenitis. 3. Gastritis. 4. Prominent esophageal veins. 5. Hiatal hernia. PROCEDURE: EGD with biopsy. SURGEON: Jack Covington DO. SUPERVISOR ELECTRONIC COILS: None. ANESTHESIA: IV sedation by the anesthesiologist. SPECIMEN: Biopsy from the first portion of the duodenum and biopsy from the antrum. BLOOD LOSS: Scant. FLUIDS: Per anesthesia. POSTOPERATIVE CONDITION: Stable. INDICATION FOR PROCEDURE: The patient is an 87-year-old female who had episode of hematemesis yesterday with anemia and needed a workup. FINDINGS: The patient had a gastric ulcer, which looked like that it was healed. No bleeding, nothing active. She also had some inflammation in the antrum as well as a little bit of inflammation of the duodenum. She had a small hiatal hernia and in the esophagus saw some prominent veins, but did not look like varices. Pictures were taken. PROCEDURE NOTE: After informed consent was obtained, the patient was brought to the endoscopy suite and placed in the left lateral decubitus position. She was administered IV sedation by the anesthesiologist. Back of her throat was sprayed with some Cetacaine spray and then inserted the scope down the mouth into the esophagus and the esophagus noted some prominent veins generally looked like varices, did not look any have bled, pushed down into the stomach and will get down towards the antrum and then into the first portion of duodenum. First portion of the duodenum had some erythema and some areas of redness. I did a biopsy here, pulled back a little bit into the antrum and also looked very red. I did a biopsy here and while pulling back further saw an ulcer, saw the defect in the stomach wall, took pictures and there were not any enlarged lesions around this, not any old blood or new blood. Base of the ulcer looked like it was whitish. Elected not to biopsy this, retroflexed and saw a small hiatal hernia. Took a picture of this, then pulled the scope back into the first portion of the lower esophagus at the GE junction and took a picture and then pulled up slowly into the esophagus took another picture of prominent veins and then pulled the scope out. The patient tolerated procedure. She was recovered in the endoscopy suite. Job ID: [id number] DocumentID: [id number] Dictated Date: 05/29/2017 13:29:52 Flumer Date: 05/30/2017 01:28:37 Dictated By: JACK COVINGTON DO
[2017-05-31] MEDS: CEFEPIME INJECTION 2,000 MG in NS (IVPB) 50 ML IV SCH (12:53)
[2017-05-31] MEDS: METOCLOPRAMIDE INJ 10 MG/2 ML (REGLAN) IVP SCH ×2 (12:53→22:03)
--- NOTE | 2017-05-31 13:12 | Progress Note-Hospitalist ---
Progress Note Progress Notes/Assess & Plan Date Seen 05/31/17 Time Seen by Provider: 12:15 Diagonsis/Assessment & Plan Chart Review: Max fever 99.6 Now on 3 L O2 AST/ALT/Alk phos 116/94/459 Patient Interview: Pt was alert upon interview after being comatose yesterday Pt states she is experiencing continued nausea but denies experiencing pain. Daughter states pt had nausea yesterday and was throwing up phlegm. Pt states she feels she could vomit Pt asked if she will ever get better. I assured the pt that we will do all we can Daughter states the pt took her abx and BP meds; pt took her meds this am sitting up on toilet Physical exam stable I informed the family and the pt that I will consult Dr. Covington on the nausea and diarrhea Pt's daughter asked about the pt's lower extremity edema, I informed her that this can happen when in bed for a long period AFVSS, more alert, declined since last seen 2 weeks ago, 6 family members in room all appearing frightened as the patient does RRR w/murmur CTAB poor excursion non-tender abdomen Assessment: Facility acquired pneumonia on Cefepime Poor PO intake due to continued nausea requiring TPN GI ulcer noted on EGD placed on PPI and Carafate Supra-therapeutic INR on low dose of Coumadin and maintained on Lovenox for bridge but now 1.1 INR so will increase Coumadin to 2mg daily Rapidly elevated AP requiring surgical evaluation for the source Poor prognosis but still full code Plan: Monitor pt closely Maintain TPN and abx Very poor prognosis and still maintained a full code PCP to address Very declined and now appears frightened since she awoke from comatose state yesterday Consult Dr. Covington on nausea and diarrhea and elevated AP Scribed by Angie Chambers under the direct supervision of Dr. Erwin. ELLEN ERWIN DO May 31, 2017 13:12
--- NOTE | 2017-05-31 13:42 | Progress Note ---
Subjective Date Seen by Provider: May 31, 2017 Time Seen by Provider: 12:58 Subjective/Events-last exam Pt seen sleeping in bed comfortable; arouses easily. Denies abdominal pain but states she is nauseous. According to nurse she is not really eating. Review of Systems General: No Chills, No Night Sweats, Fatigue, Malaise Pulmonary: No Dyspnea, No Cough Cardiovascular: No: Chest Pain, Palpitations Gastrointestinal: Nausea, No: Vomiting, Abdominal Pain Objective Exam Vital Signs Date Time Temp Pulse Resp B/P (MAP) Pulse Ox O2 Delivery O2 Flow Rate FiO2 05/31/17 09:26 95 Nasal Cannula 3.00 05/31/17 09:26 103 95 28 05/31/17 09:00 Nasal Cannula 2.00 05/31/17 08:00 98.0 102 20 137/72 94 Nasal Cannula 1.50 05/30/17 20:00 Nasal Cannula 2.00 05/30/17 19:43 99.6 108 20 138/63 93 Nasal Cannula 1.50 Capillary Refill : Less Than 3 Seconds General Appearance: No Apparent Distress, Chronically ill, Thin HEENT: PERRL/EOMI, Pharynx Normal Neck: Non Tender, Supple Respiratory: Chest Non Tender, Lungs Clear, Crackles, Decreased Breath Sounds Cardiovascular: Regular Rate, Rhythm, No Murmur, Systolic Murmur Gastrointestinal: normal bowel sounds, non tender, soft Extremity: Non Tender, No Pedal Edema Lymphatic: No Adenopathy (of neck, axilla, or groin) Results Lab Laboratory Tests 05/31/17 06:04: Prothrombin Time 14.6, INR Comment 1.1, Sodium Level 138, Potassium Level 4.0, Chloride Level 102, Carbon Dioxide Level 28, Anion Gap 8, Blood Urea Nitrogen 26H, Creatinine 0.70, Estimat Glomerular Filtration Rate > 60, BUN/Creatinine Ratio 37, Glucose Level 87, Calcium Level 7.2L, Phosphorus Level 2.2L, Magnesium Level 1.8, Total Bilirubin 0.5, Aspartate Amino Transf (AST/SGOT) 116H , Alanine Aminotransferase (ALT/SGPT) 94H, Alkaline Phosphatase 459H, Total Protein 4.2L, Albumin 2.2L, Prealbumin 6.3L, Triglycerides Level 107 Microbiology 05/28/17 Blood Culture - Preliminary, Resulted No growth 05/29/17 C. difficile GDH Antigen & Toxins - Final, Complete 05/21/17 Influenza Types A,B Antigen (BORA) - Final, Complete 05/23/17 Urine Culture - Final, Complete Presumptive [place] Assessment/Plan Assessment/Plan Assessment/Plan Gastric Ulcer - not bleeding at this time. Pt has already been started on Carafate and Protonix BID. Would wait to see if gastric biopsies show H. Pylori ; that would be only other thing to add to pt's treatment at this time. Continue with maximal medical management and supportive care. Intractable nausea - currently getting Phenergan, Zofran and Reglan. Eating small amounts and sitting up in bed may help. Would not add anymore meds for the nausea. Also recommend d/c'ing the TPN; unsure why she is on it. WOLF COHEN DO May 31, 2017 13:42
[2017-05-31] MEDS: 1/2 NS IV SOLUTION 1,000 ML IV SCH (16:00)
[2017-05-31] MEDS: [UNRECOGNIZED DRUG - OTHER] IV SCH ×10 (16:55)
[2017-05-31] MEDS: SODIUM CHLORIDE IV SCH ×10 (16:55)
[2017-05-31] MEDS: POTASSIUM CHLORIDE IV SCH ×10 (16:55)
[2017-05-31] MEDS: warFARin 2 MG (COUMADIN) TAB PO SCH (17:10)
[2017-05-31] MEDS: NS IV 500 ML 500 ML IV SCH (19:45)
[2017-05-31 19:48] VITALS: BP 145/67
[2017-05-31] MEDS: ACETAMINOPHEN 325 MG TABLET/CAPLET (TYLENOL) PO PRN (19:55)
[2017-05-31] MEDS: KETOROLAC 15 MG/ML VIAL IVP PRN (20:03)
[2017-06-01] MEDS: CALCIUM CARBONATE 600 MG (CALCARB) TAB PO SCH ×3 (05:16→17:53)
[2017-06-01] MEDS: CYPROHEPTADINE (PERIACTIN) 4 MG TAB PO SCH ×3 (05:16→20:55)
[2017-06-01] MEDS: KCL 20 MEQ TAB (K-DUR) PO SCH (05:17)
[2017-06-01] MEDS: SUCRALFATE 1 GM (CARAFATE) TAB PO SCH ×4 (05:17→20:56)
[2017-06-01] MEDS: ONDANSETRON 4 MG/2 ML (SDV) Z0FRAN IVP PRN ×2 (06:18→15:15)
[2017-06-01] MEDS: KETOROLAC 15 MG/ML VIAL IVP PRN ×2 (06:18→15:15)
[2017-06-01] MEDS: CATHETER FLUSH 10 ML SYR IV SCH ×3 (06:27→20:56)
[2017-06-01 06:53] LABS: INR 1.2 (0.8-1.4); PROTHROMBIN TIME PATIENT 14.9 SEC (12.2-14.7)
[2017-06-01 07:04] LABS: ALANINE AMINOTRANSFERASE 129 U/L (0-55); ALBUMIN 2.1 GM/DL (3.2-4.5); ANION GAP 5 MMOL/L (5-14); ASPARTATE AMINO TRANSFERASE 143 U/L (5-34); BILIRUBIN,TOTAL 0.5 MG/DL (0.1-1.0); BLOOD UREA NITROGEN 25 MG/DL (7-18); BUN/CREATININE RATIO 38; CALCIUM 7.1 MG/DL (8.5-10.1); CARBON DIOXIDE 28 MMOL/L (21-32); CHLORIDE 102 MMOL/L (98-107); CREATININE SERUM 0.66 MG/DL (0.60-1.30); GFR ESTIMATED > 60; GLUCOSE 91 MG/DL (70-105); MAGNESIUM 1.7 MG/DL (1.8-2.4); POTASSIUM 4.1 MMOL/L (3.6-5.0); SODIUM 135 MMOL/L (135-145); TOTAL PROTEIN 4.8 GM/DL (6.4-8.2)
[2017-06-01 08:00] VITALS: BP 145/72
[2017-06-01] MEDS: GABAPENTIN 100 MG (NEURONTIN) CAP PO SCH (08:28)
[2017-06-01] MEDS: LEVOTHYROXINE 112 MCG (LEVOTHROID) TAB PO SCH (08:28)
[2017-06-01] MEDS: ASPIRIN E.C. 81 MG (ECOTRIN) TAB PO SCH (08:28)
[2017-06-01] MEDS: meTOprolol SUCCINATE 100 MG (TOPROL XL) TAB PO SCH (08:28)
[2017-06-01] MEDS: LEVOTHYROXINE 25 MCG (LEVOTHROID) TAB PO SCH (08:28)
[2017-06-01] MEDS: fluCOnazole (DIFLUCAN) 100 MG TAB PO SCH (08:28)
[2017-06-01] MEDS: PANTOPRAZOLE 40 MG/10 ML (PROTONIX) VIAL IV SCH ×2 (08:29→20:55)
[2017-06-01] MEDS: DICLOFENAC 1% GEL 100 GM (VOLTAREN) TUBE TP SCH ×4 (08:29→20:56)
[2017-06-01] MEDS: ENOXAPARIN 40 MG/0.4 ML (LOVENOX) SYR SC SCH (08:29)
--- NOTE | 2017-06-01 08:29 | Diagnostic Imaging Report ---
INDICATION: Pneumonia. Comparison made with prior examination 05/30/17. FINDINGS: There is cardiomegaly. There is bibasilar atelectasis and/or pneumonitis. There are small bilateral pleural effusions. There is no pneumothorax. Mediastinum is unremarkable. There has been previous median sternotomy. IMPRESSION: Bilateral perihilar and bibasilar subsegmental atelectasis and/or pneumonitis with small bilateral pleural effusions right greater than left. Dictated by: Dictated on workstation # [id number]
[2017-06-01] MEDS: LINEZOLID (ZYVOX) 600 MG TAB PO SCH ×2 (08:33→20:56)
[2017-06-01] MEDS: 1/2 NS IV SOLUTION 1,000 ML IV SCH (08:34)
[2017-06-01] MEDS: RT-ALBUTEROL/IPRATROPIUM 3 ML (DUONEB) VIAL INH SCH ×2 (09:13→20:46)
[2017-06-01] MEDS ORDERED: SODIUM PHOSPHATE INJ 40 MM in NS (IVPB) 250 ML INJ ONE (09:21)
--- NOTE | 2017-06-01 09:28 | Progress Note (SOAP) ---
Subjective Date Seen by Provider: Jun 01, 2017 Time Seen by Provider: 09:10 Subjective/Events-last exam PTS DAUGHTER NOTES THAT HER MOM HAD A ROUGH WEEKEND. SHE REPORTS THAT HER MOM HAS BEEN NOT EATING WELL, HAS NOT REALLY EATEN THIS WEEKEND EXCEPT FOR APPLESAUCE. SHE REPORTS THAT HER MOM HAS BEEN NAUSEATED, HAS A LOT OF PHLEGM COUGHING UP. Review of Systems General: Fatigue, Malaise, Appetite (DECREASED) HEENT: No Head Aches Pulmonary: Dyspnea, Cough Cardiovascular: No: Chest Pain, Palpitations Gastrointestinal: Nausea, Abdominal Pain Genitourinary: No Dysuria Neurological: Weakness, No: Confusion Objective Exam Vital Signs Date Time Temp Pulse Resp B/P (MAP) Pulse Ox O2 Delivery O2 Flow Rate FiO2 06/01/17 09:13 92 Nasal Cannula 2.00 06/01/17 08:00 98.3 87 20 145/72 95 Nasal Cannula 1.50 06/01/17 06:18 99.9 06/01/17 06:18 99.8 06/01/17 00:00 98.0 05/31/17 21:53 93 Nasal Cannula 3.00 05/31/17 21:07 99.9 05/31/17 21:06 99.9 05/31/17 21:06 99.9 05/31/17 20:00 Nasal Cannula 2.00 05/31/17 19:55 101.8 05/31/17 19:48 101.2 99 22 145/67 94 Nasal Cannula 1.50 Capillary Refill : Less Than 3 Seconds General Appearance: WD/WN, Mild Distress HEENT: PERRL/EOMI Neck: Full Range of Motion, Supple Respiratory: Chest Non Tender, Decreased Breath Sounds (IN BASES WITH FAINT CRACKLES IN BASES BILATERALLY) Cardiovascular: Regular Rate, Rhythm, Systolic Murmur Gastrointestinal: normal bowel sounds, soft, other (MILDLY TENDER TO PALPATION IN EPIGASTRIUM) Extremity: Pedal Edema (3+) Neurologic/Psychiatric: Alert, Oriented x3, Depressed Affect Skin: Warm/Dry Lymphatic: No Adenopathy Results Lab Laboratory Tests 06/01/17 06:25: Prothrombin Time 14.9H, INR Comment 1.2, Sodium Level 135, Potassium Level 4.1, Chloride Level 102, Carbon Dioxide Level 28, Anion Gap 5, Blood Urea Nitrogen 25H, Creatinine 0.66, Estimat Glomerular Filtration Rate > 60, BUN/Creatinine Ratio 38, Glucose Level 91, Calcium Level 7.1L, Phosphorus Level 2.1L, Magnesium Level 1.7L, Total Bilirubin 0.5, Aspartate Amino Transf (AST/SGOT) 143H, Alanine Aminotransferase (ALT/SGPT) 129H, Alkaline Phosphatase 637H, Total Protein 4.8L, Albumin 2.1L Microbiology 05/28/17 Blood Culture - Preliminary, Resulted No growth 05/29/17 C. difficile GDH Antigen & Toxins - Final, Complete 05/21/17 Influenza Types A,B Antigen (BORA) - Final, Complete 05/23/17 Urine Culture - Final, Complete Presumptive [place] Assessment/Plan Assessment/Plan Assess & Plan/Chief Complaint SUPRA-THERAPEUTIC INR CHRONIC ANTICOAGULATION PNEUMONIA URINARY TRACT INFECTION BACK PAIN GENERALIZED WEAKNESS/MALAISE RECENT FALL AT HOME DEMENTIA HYPERTENSION PLEURAL EFFUSION NAUSEA ABDOMINAL PAIN TRANSIENT FEVERS HYPOCALCEMIA HYPOMAGNESEMIA TRANSAMINITIS HEMATEMESIS SUPRA-THERAPEUTIC INR - INR 1.2 TODAY - CONTINUE WITH COUMADIN DOSE AT 2MG NIGHTLY- CHECK DAILY INR'S PNEUMONIA - STARTED ON CEFEPIME AND ZYVOX - CHEST XRAY IMPROVING SLIGHTLY - CONTINUE TO ENCOURAGE INCENTIVE SPIROMETRY AND AEROBIKA. HEMATEMESIS - EGD WAS POSITIVE FOR A VERY SMALL ANTRAL ULCER PER DR. COHEN - CONTINUE WITH PPI BID AND CARAFATE. 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 - REPEAT UA NEGATIVE BACK PAIN - VOLTAREN GEL, IV PAIN MEDICATION. GENERALIZED WEAKNESS/MALAISE - STARTED PHYSICAL THERAPY. ABDOMINAL PAIN - WITH ELEVATED LFT'S - CHECKED CT OF ABDOMEN AND PELVIS -LIVER AND PANCREAS WERE BENIGN EXCEPT FOR SLIGHT BILIARY DILATION - LIVER ENZYMES NOW NORMAL. STARTED ON CARAFATE - ABDOMINAL PAIN IMPROVED. RECENT FALLS AT HOME - WILL NEED PT FOR GAIT TRAINING DEMENTIA - STABLE HYPERTENSION- CHRONIC - RESTARTED HOME MEDICATIONS. INTERMITTENT FEVERS - CHECKED TICK PANEL - NEGATIVE - STOPPED DOXYCYCLINE. HYPOCALCEMIA AND HYPOMAGNESEMIA - REPLENISH ORALLY AND IV, PT WAS STARTED ON TPN DUE TO VERY POOR ORAL FOOD INTAKE - STOPPED TODAY DUE TO ELEVATED LIVER ENZYMES. ELEVATED LIVER ENZYMES - THIS IS THE SECOND TIME IN HER ADMISSION FOR ELEVATED LFT'S - LIKELY NOT DUE TO THE TPN THE FIRST TIME SHE HAD ELEVATED LFT'S SHE WAS NOT ON TPN, I HAVE REVIEWED PATIENT'S MEDICATIONS - STOPPED MYRBETRIC, NEURONTIN, REGLAN, AND TPN. IRON DEFICIENCY ANEMIA - STARTED ON VENOFER - LAST DOSE TO BE ON 06/04/17 MALLORIE CONTRERAS MD Jun 01, 2017 9:28 am
[2017-06-01] MEDS: NS IV 500 ML 500 ML IV SCH (09:57)
[2017-06-01] MEDS: MAGNESIUM 1 GM/100 ML IVPB 100 ML IV SCH ×3 (10:02→12:28)
[2017-06-01] MEDS: CEFEPIME INJECTION 2,000 MG in NS (IVPB) 50 ML IV SCH (10:05)
--- NOTE | 2017-06-01 11:33 | Therapy Team Discharge Summary ---
Therapy Discharge Summary Discharge Recommendations Date of Discharge Therapy D/C Recommendations: Acute Rehab Physical Therapy Dr. Anaya cancelled PT due to patient decline in medical status. Patient has been on hold for several days and does not require skilled PT intervention at this time. Dr. Anaya will reorder when deemed necessary. Occupational Therapy Decreased Activ Tolerance, Decreased UE Strength, Dependent Transfers, Impaired I ADL's, Impaired Self-Care Skills, Restricted Funct UE ROM PT Counselor Aid Goals Fci Goals PT [facility]ci Goals Time Frame: May 29, 2017 Transfers (B,C,W/C) (FIM): 6 Sit to Lying (QC): 5 Lying-Sitting on Side/Bed(QC): 5 Sit to Stand (QC): 5 Rollin Chair/Qsz-wl-Vmuhl Xfer(QC): 5 Does the Patient Walk: Yes Gait (FIM): 6 Gait distance (FIM): 3=150 ft Distance: >300' Walk 50ft with 2 Turns (QC): 5 Walk 150 ft (QC): 5 Gait Level of Assist: 6 Gait Assistive Device: FWW OT Counselor Aid Goals [facility]ci Goals Time Frame: Jun 02, 2017 Eating (FIM): 6 Eating (QC): 6 Groomin Oral Hygiene (QC): 6 Bathing(FIM): 5 Upper Body Dressing(FIM): 6 Lower Body Dressing(FIM): 6 Toileting(FIM): 6 Toileting Hygiene (QC): 6 Toilet/Commode Transfer(FIM): 6 Toilet/Commode Transfer (QC): 6 Additional Goals: 2-Verbalize Understanding, 3-ImproveStrength/Tushar 1=Demonstrate adherence to instructed precautions during ADL tasks. 2=Patient will verbalize/demonstrate understanding of assistive devices/ modifications for ADL. 3=Patient will improve strength/tolerance for activity to enable patient to perform ADL's. MARIYA MAE PT Jun 01, 2017 11:33
[2017-06-01] MEDS ORDERED: [UNRECOGNIZED DRUG - OTHER] IV SCH ×10 (17:00)
[2017-06-01] MEDS ORDERED: POTASSIUM CHLORIDE IV SCH ×10 (17:00)
[2017-06-01] MEDS ORDERED: SODIUM CHLORIDE IV SCH ×10 (17:00)
[2017-06-01] MEDS: warFARin 2 MG (COUMADIN) TAB PO SCH (17:53)
[2017-06-01 20:20] VITALS: BP 138/79
[2017-06-02] MEDS: NS IV 500 ML 500 ML IV SCH ×2 (02:42→16:44)
[2017-06-02] MEDS: KCL 20 MEQ TAB (K-DUR) PO SCH ×2 (05:42→09:50)
[2017-06-02] MEDS: SUCRALFATE 1 GM (CARAFATE) TAB PO SCH ×4 (05:42→21:19)
[2017-06-02] MEDS: CALCIUM CARBONATE 600 MG (CALCARB) TAB PO SCH ×3 (05:42→16:41)
[2017-06-02] MEDS: CATHETER FLUSH 10 ML SYR IV SCH ×3 (05:43→21:19)
[2017-06-02] MEDS: LEVOTHYROXINE 112 MCG (LEVOTHROID) TAB PO SCH (05:43)
[2017-06-02] MEDS: CYPROHEPTADINE (PERIACTIN) 4 MG TAB PO SCH ×3 (05:43→21:19)
[2017-06-02] MEDS: LEVOTHYROXINE 25 MCG (LEVOTHROID) TAB PO SCH (05:43)
[2017-06-02 06:17] LABS: INR 1.2 (0.8-1.4); PROTHROMBIN TIME PATIENT 15.4 SEC (12.2-14.7)
[2017-06-02 08:00] VITALS: BP 130/75
--- NOTE | 2017-06-02 08:21 | Progress Note (SOAP) ---
Subjective Date Seen by Provider: Jun 02, 2017 Time Seen by Provider: 08:25 Subjective/Events-last exam PT IS AN 87 Y/O FEMALE WHO IS KNOWN TO ME FROM CLINIC. TODAY FERNANDA STATES THAT SHE FEELS BETTER. HER DAUGHTER STATES THAT SHE HAD A GOOD DAY YESTERDAY - SHE FINALLY ATE MORE THAN APPLE SAUCE. SHE STATES THAT SHE IS FINALLY HAVING LESS NAUSEA, STILL HAS PHLEGM, BUT OTHERWISE IS WANTING TO "GET BETTER". Review of Systems General: No Chills, Fatigue HEENT: No Head Aches Pulmonary: No Dyspnea, Cough Cardiovascular: Edema, No: Chest Pain Gastrointestinal: Nausea, No: Vomiting, Abdominal Pain Genitourinary: No Dysuria Neurological: Weakness, No: Confusion Objective Exam Vital Signs Date Time Temp Pulse Resp B/P (MAP) Pulse Ox O2 Delivery O2 Flow Rate FiO2 06/02/17 05:32 96.9 06/02/17 00:00 99.1 06/01/17 20:51 92 Nasal Cannula 2.00 06/01/17 20:20 97.5 85 20 138/79 95 Nasal Cannula 1.50 06/01/17 20:00 Nasal Cannula 2.00 06/01/17 09:13 92 Nasal Cannula 2.00 Capillary Refill : Less Than 3 Seconds General Appearance: WD/WN, Mild Distress HEENT: PERRL/EOMI Neck: Full Range of Motion, Supple Respiratory: Chest Non Tender, Decreased Breath Sounds Cardiovascular: Regular Rate, Rhythm, Systolic Murmur Gastrointestinal: normal bowel sounds, non tender, soft Extremity: Pedal Edema Neurologic/Psychiatric: Alert, Oriented x3, No Motor/Sensory Deficits Skin: Warm/Dry Lymphatic: No Adenopathy Results Lab Laboratory Tests 06/02/17 05:50: Prothrombin Time 15.4H, INR Comment 1.2 Microbiology 05/28/17 Blood Culture - Preliminary, Resulted No growth 05/29/17 C. difficile GDH Antigen & Toxins - Final, Complete 05/21/17 Influenza Types A,B Antigen (BORA) - Final, Complete 05/23/17 Urine Culture - Final, Complete Presumptive [place] Assessment/Plan Assessment/Plan Assess & Plan/Chief Complaint SUPRA-THERAPEUTIC INR CHRONIC ANTICOAGULATION PNEUMONIA URINARY TRACT INFECTION BACK PAIN GENERALIZED WEAKNESS/MALAISE RECENT FALL AT HOME DEMENTIA HYPERTENSION PLEURAL EFFUSION NAUSEA ABDOMINAL PAIN TRANSIENT FEVERS HYPOCALCEMIA HYPOMAGNESEMIA TRANSAMINITIS HEMATEMESIS SUPRA-THERAPEUTIC INR - INR 1.2 TODAY - CONTINUE WITH COUMADIN DOSE AT 2MG NIGHTLY- CHECK DAILY INR'S PNEUMONIA - STARTED ON CEFEPIME AND ZYVOX - CHEST XRAY IMPROVING SLIGHTLY - CONTINUE TO ENCOURAGE INCENTIVE SPIROMETRY AND AEROBIKA. HEMATEMESIS - EGD WAS POSITIVE FOR A VERY SMALL ANTRAL ULCER PER DR. COHEN - CONTINUE WITH PPI BID AND CARAFATE. 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 - REPEAT UA NEGATIVE BACK PAIN - VOLTAREN GEL, IV PAIN MEDICATION. GENERALIZED WEAKNESS/MALAISE - STARTED PHYSICAL THERAPY. ABDOMINAL PAIN - WITH ELEVATED LFT'S - CHECKED CT OF ABDOMEN AND PELVIS -LIVER AND PANCREAS WERE BENIGN EXCEPT FOR SLIGHT BILIARY DILATION - LIVER ENZYMES NOW NORMAL. STARTED ON CARAFATE - ABDOMINAL PAIN IMPROVED. RECENT FALLS AT HOME - WILL NEED PT FOR GAIT TRAINING DEMENTIA - STABLE HYPERTENSION- CHRONIC - RESTARTED HOME MEDICATIONS. INTERMITTENT FEVERS - CHECKED TICK PANEL - NEGATIVE - STOPPED DOXYCYCLINE. HYPOCALCEMIA AND HYPOMAGNESEMIA - REPLENISH ORALLY AND IV, PT WAS STARTED ON TPN DUE TO VERY POOR ORAL FOOD INTAKE - STOPPED TODAY DUE TO ELEVATED LIVER ENZYMES. ELEVATED LIVER ENZYMES - THIS IS THE SECOND TIME IN HER ADMISSION FOR ELEVATED LFT'S - LIKELY NOT DUE TO THE TPN THE FIRST TIME SHE HAD ELEVATED LFT'S SHE WAS NOT ON TPN, I HAVE REVIEWED PATIENT'S MEDICATIONS - STOPPED MYRBETRIC, NEURONTIN, REGLAN, AND TPN ON 06/01/17. IRON DEFICIENCY ANEMIA - STARTED ON VENOFER - LAST DOSE TO BE ON 06/04/17. PT FEELING BETTER TODAY - CONTINUE WITH CURRENT MANAGEMENT - APPRECIATE DR. BENSON'S INPUT. WAITING ON LIVER ENZYMES FROM THIS MORNING. MALLORIE CONTRERAS MD Jun 02, 2017 8:21 am
[2017-06-02] MEDS ORDERED: SALIVA STIMULANT MOUTH SPRAY (BIOTENE) 1.5 OZ MM PRN (08:30)
[2017-06-02] MEDS: NS IV SCH (09:48)
[2017-06-02] MEDS: LINEZOLID (ZYVOX) 600 MG TAB PO SCH ×2 (09:48→21:19)
[2017-06-02] MEDS: IRON SUCROSE IV SCH (09:48)
[2017-06-02] MEDS: meTOprolol SUCCINATE 100 MG (TOPROL XL) TAB PO SCH (09:48)
[2017-06-02] MEDS: fluCOnazole (DIFLUCAN) 100 MG TAB PO SCH (09:48)
[2017-06-02] MEDS: PANTOPRAZOLE 40 MG/10 ML (PROTONIX) VIAL IV SCH ×2 (09:48→21:18)
[2017-06-02] MEDS: DICLOFENAC 1% GEL 100 GM (VOLTAREN) TUBE TP SCH ×4 (09:49→21:18)
[2017-06-02] MEDS: ENOXAPARIN 40 MG/0.4 ML (LOVENOX) SYR SC SCH (09:49)
[2017-06-02] MEDS: ONDANSETRON 4 MG/2 ML (SDV) Z0FRAN IVP PRN ×2 (09:50→18:06)
[2017-06-02] MEDS: KETOROLAC 15 MG/ML VIAL IVP PRN (09:51)
[2017-06-02] MEDS: CEFEPIME INJECTION 2,000 MG in NS (IVPB) 50 ML IV SCH (09:52)
[2017-06-02] MEDS: RT-ALBUTEROL/IPRATROPIUM 3 ML (DUONEB) VIAL INH SCH ×2 (10:07→18:56)
[2017-06-02 10:20] LABS: ALANINE AMINOTRANSFERASE 139 U/L (0-55); ALBUMIN 2.1 GM/DL (3.2-4.5); ANION GAP 6 MMOL/L (5-14); ASPARTATE AMINO TRANSFERASE 109 U/L (5-34); BILIRUBIN,TOTAL 0.6 MG/DL (0.1-1.0); BLOOD UREA NITROGEN 18 MG/DL (7-18); BUN/CREATININE RATIO 27; CALCIUM 7.3 MG/DL (8.5-10.1); CARBON DIOXIDE 27 MMOL/L (21-32); CHLORIDE 102 MMOL/L (98-107); CREATININE SERUM 0.67 MG/DL (0.60-1.30); GFR ESTIMATED > 60; GLUCOSE 64 MG/DL (70-105); MAGNESIUM 1.7 MG/DL (1.8-2.4); POTASSIUM 3.8 MMOL/L (3.6-5.0); SODIUM 135 MMOL/L (135-145); TOTAL PROTEIN 4.9 GM/DL (6.4-8.2)
--- NOTE | 2017-06-02 13:50 | Physical Therapy Evaluation ---
PT Evaluation-General Medical Diagnosis Admission Date May 19, 2017 at 09:18 Medical Diagnosis: UTI/back pain Onset Date: May 10, 2017 Therapy Diagnosis Therapy Diagnosis: generalized weakness/debility Height/Weight Height (Feet): 5 Height (Inches): 5.00 Weight (Pounds): 184 Weight (Ounces): 2.0 Precautions Precautions/Isolations: Fall Prevention, Standard Precautions, Pressure Ulcer Weight Bear Status Right Lower Extremity: Right Weight Bearing/Tolerated Left Lower Extremity: Left Weight Bearing/Tolerated Referral Physician: Héctor Reason for Referral: Evaluation/Treatment Medical History Pertinent Medical History: Breast CA S/P Mastectomy, HTN, Hypothroidism, CT, OA , Smoking Additional Medical History diminished liver function Current History has had a decline in medical and functional status Reviewed History: Yes Social History Home: Single Level Current Living Status: Alone Entry Into Home: Stairs With Railing PT Steps Into Home: 2 Prior/Core FIM Prior Level of Function Functional [place] Measure 0=Not Assessed/NA 4=Minimal Assistance 1=Total Assistance 5=Supervision or Setup 2=Maximal Assistance 6=Modified [place] 3=Moderate Assistance 7=Complete [place] Bed Mobility: 7 Transfers (B,C,W/C) (FIM): 7 Gait: 7 PT Evaluation-Current Subjective Patient agrees to PT, however, c/o fatigue. Pain Numeric Pain Scale: 0-No Pain Location: No Pain Reported Pt/Family Goals total body edema Objective Patient Orientation: Normal For Age Problem Solving: Good Attachments: Oxygen, Lee Catheter, IV ROM/Strength ROM Lower Extremities bilateral LE WNL Strenght Lower Extremities 3/5 bilateral LE grossly Integumentary/Posture Integumentary refer to nursing notes Bowel Incontinence: Yes Bladder Incontinence: Lee Cath Posture WNL Neuromuscular (Tone, Coordination, Reflexes) diminished coordination due to inactivity and weakness Sensory Vision: Functional Hearing: Functional Hand Dominance: Right Sensation Right Lower Extremit: Intact Sensation Left Lower Extremity: Intact Transfers Functional [place] Measure 0=Not Assessed/NA 4=Minimal Assistance 1=Total Assistance 5=Supervision or Setup 2=Maximal Assistance 6=Modified [place] 3=Moderate Assistance 7=Complete [place] Transfers (B, C, W/C) (FIM): 3 Scootin Rollin Supine to/from Sit: 3 Sit to/from Stand: 3 Sit to Lying (QC): 2 Lying to Sitting/Side of Bed(Q: 2 Sit to Stand (QC): 2 Chair/Ulh-bp-Wztqm Xfer(QC): 2 Gait Does the Patient Walk?: Yes Mode of Locomotion: Walk Anticipated Mode of Locomotion: Walk Gait (FIM): 1 Distance (FIM): 1=up to 49 ft Distance: 25' Walk 50 ft with 2 Turns(QC): 88 Walk 150 ft (QC): 88 Gait Level of Assist: 4 Gait Persons Needed: 1 Gait Assistive Device: FWW Comments/Gait Description decreased gait sequence/shuffle gait Balance Sitting Static: Normal Sitting Dynamic: Normal Standing Static: Fair Standing Dynamic: Fair Treatment Gait training with FWW minimal assist x 25' with slow, shuffle gait sequence. Bilateral LE exercise in sit 10 reps x 2 sets each AP, LAQ, hip flexion Assessment/Needs 87 y.o. female, will benefit from skilled PT to address functional strength and mobility. Patient has had a decline in medical and functional status. PT will begin with 6/wk to build strength then increase to 11/wk when able to tolerate. Rehab Potential: Guarded PT Circuit Manager Goals Circuit Manager Goals PT Circuit Manager Goals Time Frame: Jun 26, 2017 Transfers (B,C,W/C) (FIM): 6 Sit to Lying (QC): 5 Lying-Sitting on Side/Bed(QC): 5 Sit to Stand (QC): 5 Rollin Chair/Dtq-dl-[place] Xfer(QC): 5 Does the Patient Walk: Yes Gait (FIM): 6 Gait distance (FIM): 3=150 ft Distance: 200' Walk 50ft with 2 Turns (QC): 5 Walk 150 ft (QC): 5 Gait Level of Assist: 6 Gait Assistive Device: FWW PT Plan Problem List Problem List: Activity Tolerance, Functional Strength, Balance, Gait, Transfer , Bed Mobility Treatment/Plan Treatment Plan: Continue Plan of Care Treatment Plan: Bed Mobility, Education, Functional Activity Tushar, Functional Strength, Gait, Safety, Therapeutic Exercise, Transfers Treatment Duration: Jun 26, 2017 Frequency: 6 times per week Estimated Hrs Per Day: .25 hour per day Patient and/or Family Agrees t: Yes Safety Risks/Education Patient Education: Gait Training Teaching Recipient: Patient Teaching Methods: Demonstration, Discussion Response to Teaching: Verbalize Understanding, Return Demonstration Discharge Recommendations Therapy D/C Recommendations: Home w/ Family Support Time/GCodes Time In: 1310 Time Out: 1335 Total Billed Treatment Time: 25 Total Billed Treatment 1 visit EVLowC 10 min FA 15 min MARIYA MAE PT Jun 02, 2017 13:50
[2017-06-02] MEDS: 1/2 NS IV SOLUTION 1,000 ML IV SCH (14:52)
[2017-06-02] MEDS: warFARin 2 MG (COUMADIN) TAB PO SCH (16:42)
--- NOTE | 2017-06-02 17:04 | Therapy Team Discharge Summary ---
Therapy Discharge Summary Discharge Recommendations Date of Discharge Therapy D/C Recommendations: Home w/ Family Support Occupational Therapy Pt was seen for skilled OT to increase her independence in basic self care to allow her to safely return to her home. On admission she was modified independent with eating, needed min assist with bathing, lower body dressing and shower transfers and mod assist with upper body dressing. Her ADL status on discharge is unknown because she was on hold for two days prior to discharge. OT goals not met except eating. DC per physician orders. Decreased Activ Tolerance, Decreased UE Strength, Dependent Transfers, Impaired I ADL's, Impaired Self-Care Skills, Restricted Funct UE ROM PT Nursing Home Goals Electrical Fitter Goals PT Nursing Home Goals Time Frame: Jun 26, 2017 Transfers (B,C,W/C) (FIM): 6 Sit to Lying (QC): 5 Lying-Sitting on Side/Bed(QC): 5 Sit to Stand (QC): 5 Rollin Chair/Hau-wn-Wwxhg Xfer(QC): 5 Does the Patient Walk: Yes Gait (FIM): 6 Gait distance (FIM): 3=150 ft Distance: 200' Walk 50ft with 2 Turns (QC): 5 Walk 150 ft (QC): 5 Gait Level of Assist: 6 Gait Assistive Device: FWW OT Nursing Home Goals Electrical Fitter Goals Time Frame: Jun 02, 2017 Eating (FIM): 6 (met) Eating (QC): 6 (met) Groomin Oral Hygiene (QC): 6 Bathing(FIM): 5 Upper Body Dressing(FIM): 6 Lower Body Dressing(FIM): 6 Toileting(FIM): 6 Toileting Hygiene (QC): 6 Toilet/Commode Transfer(FIM): 6 Toilet/Commode Transfer (QC): 6 Additional Goals: 2-Verbalize Understanding, 3-ImproveStrength/Tushar 1=Demonstrate adherence to instructed precautions during ADL tasks. 2=Patient will verbalize/demonstrate understanding of assistive devices/ modifications for ADL. 3=Patient will improve strength/tolerance for activity to enable patient to perform ADL's. MORRIS DOSS OT Jun 02, 2017 17:04
[2017-06-02 19:30] VITALS: BP 138/78
[2017-06-03] MEDS: 1/2 NS IV SOLUTION 1,000 ML IV SCH ×2 (03:39→23:00)
[2017-06-03] MEDS: LEVOTHYROXINE 25 MCG (LEVOTHROID) TAB PO SCH (06:12)
[2017-06-03] MEDS: LEVOTHYROXINE 112 MCG (LEVOTHROID) TAB PO SCH (06:12)
[2017-06-03] MEDS: SUCRALFATE 1 GM (CARAFATE) TAB PO SCH ×4 (06:12→21:24)
[2017-06-03] MEDS: CALCIUM CARBONATE 600 MG (CALCARB) TAB PO SCH ×3 (06:12→17:38)
[2017-06-03] MEDS: CYPROHEPTADINE (PERIACTIN) 4 MG TAB PO SCH ×3 (06:12→21:30)
[2017-06-03] MEDS: KCL 20 MEQ TAB (K-DUR) PO SCH (06:13)
[2017-06-03] MEDS: CATHETER FLUSH 10 ML SYR IV SCH ×3 (06:13→21:25)
[2017-06-03 07:14] LABS: MEAN PLATELET VOLUME 9.6 FL (7.4-10.4); RED BLOOD COUNT 2.93 10^6/uL (4.35-5.85); RED CELL DISTRIBUTION WIDTH 16.7 % (10.0-14.5); WHITE BLOOD COUNT 9.1 10^3/uL (4.3-11.0)
[2017-06-03 07:37] LABS: ALANINE AMINOTRANSFERASE 115 U/L (0-55); ALBUMIN 1.8 GM/DL (3.2-4.5); ANION GAP 6 MMOL/L (5-14); ASPARTATE AMINO TRANSFERASE 79 U/L (5-34); BILIRUBIN,TOTAL 0.4 MG/DL (0.1-1.0); BLOOD UREA NITROGEN 14 MG/DL (7-18); BUN/CREATININE RATIO 21; CALCIUM 7.1 MG/DL (8.5-10.1); CARBON DIOXIDE 24 MMOL/L (21-32); CHLORIDE 105 MMOL/L (98-107); CREATININE SERUM 0.66 MG/DL (0.60-1.30); GFR ESTIMATED > 60; GLUCOSE 63 MG/DL (70-105); POTASSIUM 3.8 MMOL/L (3.6-5.0); SODIUM 135 MMOL/L (135-145); TOTAL PROTEIN 4.1 GM/DL (6.4-8.2)
[2017-06-03 08:00] VITALS: BP 126/68
[2017-06-03] MEDS: RT-ALBUTEROL/IPRATROPIUM 3 ML (DUONEB) VIAL INH SCH ×2 (08:08→20:47)
[2017-06-03 08:14] VITALS: BP 138/78
--- NOTE | 2017-06-03 08:39 | Progress Note (SOAP) ---
Subjective Date Seen by Provider: Jun 03, 2017 Time Seen by Provider: 08:39 Subjective/Events-last exam PT REPORTS THAT SHE IS FEELING A LITTLE BIT BETTER TODAY. SHE REPORTS THAT HER WEAKNESS IS BETTER TODAY. HER FAMILY IS ENCOURAGED THAT HER WEAKNESS IS IMPROVED. SHE REPORTS THAT HER COUGH IS IMPROVED Review of Systems General: No Chills, Fatigue, Malaise HEENT: No Head Aches Pulmonary: Dyspnea, Cough Cardiovascular: No: Chest Pain, Palpitations Gastrointestinal: No: Nausea, Abdominal Pain Musculoskeletal: No: back pain Neurological: Weakness, No: Confusion Objective Exam Vital Signs Date Time Temp Pulse Resp B/P (MAP) Pulse Ox O2 Delivery O2 Flow Rate FiO2 06/03/17 08:14 82 96 24 06/03/17 08:08 96 Nasal Cannula 2.00 06/03/17 02:20 98.3 06/03/17 00:06 98.5 06/02/17 20:00 Nasal Cannula 2.00 06/02/17 19:30 98.6 95 22 138/78 95 Nasal Cannula 2.00 06/02/17 18:56 92 Nasal Cannula 2.00 Capillary Refill : Less Than 3 Seconds General Appearance: No Apparent Distress, WD/WN HEENT: PERRL/EOMI Neck: Full Range of Motion, Supple Respiratory: Chest Non Tender, Decreased Breath Sounds (IN BASES WITH CRACKLES) Cardiovascular: Regular Rate, Rhythm Gastrointestinal: normal bowel sounds, non tender, soft, no organomegaly, no pulsatile mass Extremity: Pedal Edema Neurologic/Psychiatric: Alert Skin: Warm/Dry Results Lab Laboratory Tests 06/02/17 09:22: Sodium Level 135, Potassium Level 3.8, Chloride Level 102, Carbon Dioxide Level 27, Anion Gap 6, Blood Urea Nitrogen 18, Creatinine 0.67, Estimat Glomerular Filtration Rate > 60, BUN/Creatinine Ratio 27, Glucose Level 64L, Calcium Level 7.3L, Magnesium Level 1.7L, Total Bilirubin 0.6, Aspartate Amino Transf (AST/ SGOT) 109H, Alanine Aminotransferase (ALT/SGPT) 139H, Alkaline Phosphatase 637H , Total Protein 4.9L, Albumin 2.1L 06/03/17 07:02: Sodium Level 135, Potassium Level 3.8, Chloride Level 105, Carbon Dioxide Level 24, Anion Gap 6, Blood Urea Nitrogen 14, Creatinine 0.66, Estimat Glomerular Filtration Rate > 60, BUN/Creatinine Ratio 21, Glucose Level 63L, Calcium Level 7.1L, Total Bilirubin 0.4, Aspartate Amino Transf (AST/SGOT) 79H, Alanine Aminotransferase (ALT/SGPT) 115H, Alkaline Phosphatase 589H, Total Protein 4.1L , Albumin 1.8L, White Blood Count 9.1, Red Blood Count 2.93L, Hemoglobin 8.0L, Hematocrit 27L, Mean Corpuscular Volume 91, Mean Corpuscular Hemoglobin 27, Mean Corpuscular Hemoglobin Concent 30L, Red Cell Distribution Width 16.7H, Platelet Count 152, Mean Platelet Volume 9.6 Microbiology 05/28/17 Blood Culture - Final, Complete No growth 05/29/17 C. difficile GDH Antigen & Toxins - Final, Complete 05/21/17 Influenza Types A,B Antigen (BORA) - Final, Complete 05/23/17 Urine Culture - Final, Complete Presumptive [place] Assessment/Plan Assessment/Plan Assess & Plan/Chief Complaint SUPRA-THERAPEUTIC INR CHRONIC ANTICOAGULATION PNEUMONIA URINARY TRACT INFECTION BACK PAIN GENERALIZED WEAKNESS/MALAISE RECENT FALL AT HOME DEMENTIA HYPERTENSION PLEURAL EFFUSION NAUSEA ABDOMINAL PAIN TRANSIENT FEVERS HYPOCALCEMIA HYPOMAGNESEMIA TRANSAMINITIS HEMATEMESIS SUPRA-THERAPEUTIC INR - INR 1.2 TODAY - CONTINUE WITH COUMADIN DOSE AT 2MG NIGHTLY- CHECK DAILY INR'S PNEUMONIA - STARTED ON CEFEPIME AND ZYVOX - CHEST XRAY IMPROVING SLIGHTLY - CONTINUE TO ENCOURAGE INCENTIVE SPIROMETRY AND AEROBIKA. HEMATEMESIS - EGD WAS POSITIVE FOR A VERY SMALL ANTRAL ULCER PER DR. COHEN - CONTINUE WITH PPI BID AND CARAFATE. 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 - REPEAT UA NEGATIVE BACK PAIN - VOLTAREN GEL, IV PAIN MEDICATION. GENERALIZED WEAKNESS/MALAISE - STARTED PHYSICAL THERAPY. ABDOMINAL PAIN - WITH ELEVATED LFT'S - CHECKED CT OF ABDOMEN AND PELVIS -LIVER AND PANCREAS WERE BENIGN EXCEPT FOR SLIGHT BILIARY DILATION - LFT'S IMPROVING STARTED ON CARAFATE - ABDOMINAL PAIN IMPROVED. RECENT FALLS AT HOME - WILL NEED PT FOR GAIT TRAINING DEMENTIA - STABLE HYPERTENSION- CHRONIC - RESTARTED HOME MEDICATIONS. INTERMITTENT FEVERS - CHECKED TICK PANEL - NEGATIVE - STOPPED DOXYCYCLINE. HYPOCALCEMIA AND HYPOMAGNESEMIA - REPLENISH ORALLY AND IV, PT WAS STARTED ON TPN DUE TO VERY POOR ORAL FOOD INTAKE - STOPPED DUE TO ELEVATED LIVER ENZYMES. ELEVATED LIVER ENZYMES - THIS IS THE SECOND TIME IN HER ADMISSION FOR ELEVATED LFT'S - LIKELY NOT DUE TO THE TPN THE FIRST TIME SHE HAD ELEVATED LFT'S SHE WAS NOT ON TPN, I HAVE REVIEWED PATIENT'S MEDICATIONS - STOPPED MYRBETRIC, NEURONTIN, REGLAN, AND TPN ON 06/01/17. IRON DEFICIENCY ANEMIA - STARTED ON VENOFER - LAST DOSE TO BE ON 06/04/17. PT FEELING BETTER TODAY - CONTINUE WITH CURRENT MANAGEMENT - APPRECIATE DR. BENSON'S INPUT. WAITING ON LIVER ENZYMES FROM THIS MORNING. MALLORIE CONTRERAS MD Jun 03, 2017 08:39
[2017-06-03] MEDS: PANTOPRAZOLE 40 MG/10 ML (PROTONIX) VIAL IV SCH ×2 (08:56→21:24)
[2017-06-03] MEDS: meTOprolol SUCCINATE 100 MG (TOPROL XL) TAB PO SCH (08:58)
[2017-06-03] MEDS: LINEZOLID (ZYVOX) 600 MG TAB PO SCH ×2 (08:58→21:24)
[2017-06-03] MEDS: ENOXAPARIN 40 MG/0.4 ML (LOVENOX) SYR SC SCH (08:58)
[2017-06-03] MEDS: CEFEPIME INJECTION 2,000 MG in NS (IVPB) 50 ML IV SCH (09:13)
[2017-06-03] MEDS ORDERED: FUROSEMIDE 40 MG/4 ML INJ (LASIX) IVP NR (09:15)
[2017-06-03 09:26] LABS: INR 1.2 (0.8-1.4); PROTHROMBIN TIME PATIENT 15.7 SEC (12.2-14.7)
--- NOTE | 2017-06-03 10:29 | Physical Therapy Daily Note ---
PT Daily Note-Current Subjective Pain rated 4-5/10 (R) ojeda. Pt states "I think it is because I have not been up. I am pretty stiff." Daughter present and very supportive. Mental Status Patient Orientation: Person, Place Attachments: Oxygen O2 in place per nasal canula, 1L/min Transfers Functional [place] Measure 0=Not Assessed/NA 4=Minimal Assistance 1=Total Assistance 5=Supervision or Setup 2=Maximal Assistance 6=Modified [place] 3=Moderate Assistance 7=Complete IndependenceIRFPAI Quality Coding Scale 6 Independent with activity with or without an assistive device 5 Patient requires set up or clean up by helper. Patient completes activity by themselves 4 Supervision or touching assist (CGA). [place] provide cues , steadying assist 3 The helper provides less than half the effort to complete the activity 2 The helper provides more than half the effort to complete the activity 1 Dependent. The helper does all the effort to complete an activity 7 Patient refused to complete or attempt activity 9 The patient did not perform the activity before the current illness or injury 88 Not attempted due to Medical conditions or safety concerns Transfers mod (I) all levels Weight Bearing Right Lower Extremity: Right Weight Bearing/Tolerated Left Lower Extremity: Left Weight Bearing/Tolerated Gait Training Gait Assistive Device: FWW Pt amb to hallway x 30ft, back to bedside chair. Exercises Seated Therapy Exercises: Ankle pumps, Long arc quads, Hip flexion, Hip abd/add , Glut set Seated Reps: 15 Assessment Current Status: Good Progress Pt amb with steady gait, little to no SOB with exertion. (B) LE edema present with (R)>(L). Pt back to bedside chair with call light, legs elevated and all needs met. Daughter present. 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 Time Frame: Jun 26, 2017 Transfers (B,C,W/C) (FIM): 6 Sit to Lying (QC): 5 Lying-Sitting on Side/Bed(QC): 5 Sit to Stand (QC): 5 Rollin Chair/[place] Xfer(QC): 5 Does the Patient Walk: Yes Gait (FIM): 6 Gait distance (FIM): 3=150 ft Distance: 200' Walk 50ft with 2 Turns (QC): 5 Walk 150 ft (QC): 5 Gait Level of Assist: 6 Gait Assistive Device: FWW PT Plan Treatment/Plan Treatment Plan: Continue Plan of Care Treatment Plan: Bed Mobility, Education, Functional Activity Tushar, Functional Strength, Gait, Safety, Therapeutic Exercise, Transfers Treatment Duration: Jun 26, 2017 Frequency: 6 times per week Estimated Hrs Per Day: .25 hour per day Patient and/or Family Agrees t: Yes Time/GCodes Time In: 825 Time Out: 845 Total Billed Treatment Time: 20 Total Billed Treatment 1, gait 15min, Ther ex 5 min JULIA AVELAR CPTA Jun 03, 2017 10:29
[2017-06-03] MEDS: DICLOFENAC 1% GEL 100 GM (VOLTAREN) TUBE TP SCH ×4 (11:59→21:25)
[2017-06-03] MEDS: NS IV 500 ML 500 ML IV SCH (12:04)
--- NOTE | 2017-06-03 14:32 | Occupational Therapy Eval ---
OT Evaluation-General/PLF Medical Diagnosis Admission Date May 19, 2017 at 09:18 Medical Diagnosis: UTI/back pain Onset Date: May 10, 2017 Therapy Diagnosis Therapy Diagnosis: impaired self care skills Height/Weight Height (Feet): 5 Height (Inches): 5.00 Weight (Pounds): 184 Weight (Ounces): 2.0 Precautions Precautions/Isolations: Fall Prevention Safety Interventions: None Referral Physician: Héctor Medical History Pertinent Medical History: Breast CA S/P Mastectomy, HTN, Hypothroidism, OR, OA , Smoking Additional Medical History heart valve replacement, high cholesterol, thyroidectomy, gallbladder disease, TKA, arthritis, chronic back pain. Current History Pt on SWB status. Pt was recently discharged from OT services secondary to decline in medical status. OT was re-ordered by physician and evaluation was completed this date. Reviewed History: Yes Social History Home: Single Level Current Living Status: Alone Entry Into Home: Stairs With Railing Steps Into Home: 2 ADL-Prior Level of Function ADL PLOF Comments Pt reports being independent with self care and mobility prior to admission. DME/Equipment: Bath Chair, Grab Bars, Tub/Shower Drive Self: Yes OT Current Status Subjective Pt sitting in chair, agrees to therapy. Pt has no c/o pain during session. Mental Status/Objective Patient Orientation: Person, Place, Time Attachments: IV, Oxygen Current Glasses/Contacts: Yes Hearing Aids: Yes (does not have them here) Dentures/Partials: Yes Hand Dominance: Right Upper Extremity ROM Grossly WFL Upper Extremity Coordination Intact Upper Extremity Sensation Intact per pt report Upper Extremity Strength Grossly 4-/5 ADL-Treatment ADL-Current Pt sitting in chair, would like to sponge bathe. Pt able to wash upper body with set up. Pt washes bilateral upper legs and [place] area. Assist to wash lower legs/feet and buttocks. Pt requires minimal assistance for sit to stand when washing buttocks. Pt donned hospital gown with assistance secondary to IV. Assist required to doff/don socks. Pt sitting in chair with needs met after session. Functional [place] Measure 0=Not Assessed/NA 4=Minimal Assistance 1=Total Assistance 5=Supervision or Setup 2=Maximal Assistance 6=Modified [place] 3=Moderate Assistance 7=Complete IndependenceIRFPAI Quality Coding Scale 6 Independent with activity with or without an assistive device 5 Patient requires set up or clean up by helper. Patient completes activity by themselves 4 Supervision or touching assist (CGA). [place] provide cues , steadying assist 3 The helper provides less than half the effort to complete the activity 2 The helper provides more than half the effort to complete the activity 1 Dependent. The helper does all the effort to complete an activity 7 Patient refused to complete or attempt activity 9 The patient did not perform the activity before the current illness or injury 88 Not attempted due to Medical conditions or safety concerns Eating (FIM): 5 (Pt states daughter opens containers and then she feeds herself.) Bathing (FIM): 3 Education OT Patient Education: Rehab process Teaching Recipient: Patient Teaching Methods: Discussion Response to Teaching: Verbalize Understanding OT Short Term Goals Short Term Goals 1=Demonstrate adherence to instructed precautions during ADL tasks. 2=Patient will verbalize/demonstrate understanding of assistive devices/ modifications for ADL. 3=Patient will improve strength/tolerance for activity to enable patient to perform ADL's. OT Fpc Goals Fpc Goals Time Frame: Jun 26, 2017 Eating (FIM): 6 Eating (QC): 6 Groomin Oral Hygiene (QC): 6 Bathing(FIM): 5 Upper Body Dressing(FIM): 5 Lower Body Dressing(FIM): 5 Toileting(FIM): 6 Toileting Hygiene (QC): 6 Toilet/Commode Transfer(FIM): 6 Toilet/Commode Transfer (QC): 6 Additional Goals: 2-Verbalize Understanding, 3-ImproveStrength/Tushar 1=Demonstrate adherence to instructed precautions during ADL tasks. 2=Patient will verbalize/demonstrate understanding of assistive devices/ modifications for ADL. 3=Patient will improve strength/tolerance for activity to enable patient to perform ADL's. OT Education/Plan Problem List/Assessment Pt demonstrates decreased mobility, strength, activity tolerance, and ADL functioning. Pt to benefit from skilled OT intervention for ADL training, transfers, strengthening, and home safety education to maximize level of function and allow safe discharge. Discharge Recommendations Plan/Recommendations: Continue POC Treatment Plan/Plan of Care Treatment,Training & Education: Yes Patient would benefit from OT for education, treatment and training to promote independence in ADL's, mobility, safety and/or upper extremity function for ADL' s. Plan of Care: ADL Retraining, Functional Mobility, UE Funct Exercise/Act Treatment Duration: Jun 26, 2017 Frequency: 5 times per week Estimated Hrs Per Day: .5 hour per day Agreement: Yes Rehab Potential: Fair Time/GCodes Start Time: 13:20 Stop Time: 13:44 Total Time Billed (hr/min): 24 Billed Treatment Time 1 visit, EVM(9minutes), ADL(15minutes) JULIA HNUTLEY OT Jun 03, 2017 14:32
[2017-06-03] MEDS: FUROSEMIDE 40 MG/4 ML INJ (LASIX) IVP SCH (17:38)
[2017-06-03] MEDS: warFARin 2 MG (COUMADIN) TAB PO SCH (17:39)
[2017-06-03] MEDS: ONDANSETRON 4 MG/2 ML (SDV) Z0FRAN IVP PRN ×2 (18:33→21:24)
[2017-06-03 19:35] VITALS: BP 135/82
[2017-06-04 06:00] LABS: MEAN PLATELET VOLUME 9.6 FL (7.4-10.4); RED BLOOD COUNT 2.89 10^6/uL (4.35-5.85); RED CELL DISTRIBUTION WIDTH 16.8 % (10.0-14.5); WHITE BLOOD COUNT 8.5 10^3/uL (4.3-11.0)
[2017-06-04] MEDS: CATHETER FLUSH 10 ML SYR IV SCH ×3 (06:14→22:10)
[2017-06-04] MEDS: FUROSEMIDE 40 MG/4 ML INJ (LASIX) IVP SCH ×2 (06:14→17:49)
[2017-06-04] MEDS: LEVOTHYROXINE 25 MCG (LEVOTHROID) TAB PO SCH (06:15)
[2017-06-04] MEDS: KCL 20 MEQ TAB (K-DUR) PO SCH (06:15)
[2017-06-04] MEDS: LEVOTHYROXINE 112 MCG (LEVOTHROID) TAB PO SCH (06:15)
[2017-06-04] MEDS: CALCIUM CARBONATE 600 MG (CALCARB) TAB PO SCH ×3 (06:15→17:57)
[2017-06-04] MEDS: CYPROHEPTADINE (PERIACTIN) 4 MG TAB PO SCH ×3 (06:18→21:01)
[2017-06-04] MEDS: SUCRALFATE 1 GM (CARAFATE) TAB PO SCH ×4 (06:18→20:59)
[2017-06-04 06:38] LABS: ALANINE AMINOTRANSFERASE 97 U/L (0-55); ALBUMIN 1.9 GM/DL (3.2-4.5); ANION GAP 6 MMOL/L (5-14); ASPARTATE AMINO TRANSFERASE 58 U/L (5-34); BILIRUBIN,TOTAL 0.4 MG/DL (0.1-1.0); BLOOD UREA NITROGEN 10 MG/DL (7-18); BUN/CREATININE RATIO 14; CALCIUM 7.4 MG/DL (8.5-10.1); CARBON DIOXIDE 28 MMOL/L (21-32); CHLORIDE 102 MMOL/L (98-107); GFR ESTIMATED > 60; GLUCOSE 68 MG/DL (70-105); MAGNESIUM 1.1 MG/DL (1.8-2.4); PHOSPHORUS 2.1 MG/DL (2.3-4.7); POTASSIUM 3.5 MMOL/L (3.6-5.0); SODIUM 136 MMOL/L (135-145); TOTAL PROTEIN 4.5 GM/DL (6.4-8.2); TRIGLYCERIDES 135 MG/DL (<150)
[2017-06-04 07:21] VITALS: BP 124/61
[2017-06-04] MEDS: RT-ALBUTEROL/IPRATROPIUM 3 ML (DUONEB) VIAL INH SCH ×2 (07:42→21:07)
[2017-06-04] MEDS ORDERED: NS IV 500 ML 500 ML IV SCH (08:31)
--- NOTE | 2017-06-04 08:41 | Progress Note (SOAP) ---
Subjective Date Seen by Provider: Jun 04, 2017 Time Seen by Provider: 08:41 Subjective/Events-last exam PT'S DAUGHTER REPORTS THAT SHE IS EATING BETTER, HER ENERGY APPEARS TO BE IMPROVED AND HER ATTITUDE ABOUT HER RECOVERY. PT REPORTS TAHT SHE IS FEELING BETTER, HER COUGH IS NOT BAD, HER MUCUS FROM HER COUGH IS BETTER. SHE STATES THAT SHE IS SITTING UP IN THE CHAIR FOR LONGER, AND HER APPETITE IS IMPROVED. Review of Systems General: No Chills, Fatigue HEENT: No Head Aches, No Dysphasia Pulmonary: Dyspnea, Cough (IMPROVING) Cardiovascular: No: Chest Pain, Palpitations Gastrointestinal: No: Nausea Neurological: Weakness Objective Exam Vital Signs Date Time Temp Pulse Resp B/P (MAP) Pulse Ox O2 Delivery O2 Flow Rate FiO2 06/04/17 07:42 93 Nasal Cannula 1.00 06/04/17 07:21 98.6 93 18 124/61 94 Nasal Cannula 1.00 06/03/17 21:00 Nasal Cannula 1.00 06/03/17 20:47 92 Nasal Cannula 1.00 06/03/17 19:35 98.4 89 18 135/82 99 Nasal Cannula 1.00 Capillary Refill : Less Than 3 Seconds General Appearance: No Apparent Distress, WD/WN HEENT: PERRL/EOMI Neck: Full Range of Motion Respiratory: Chest Non Tender, Decreased Breath Sounds (IN BASES - FAINT CRACKLES - BUT IMPROVING) Cardiovascular: Regular Rate, Rhythm Gastrointestinal: normal bowel sounds, non tender, soft Extremity: Pedal Edema Neurologic/Psychiatric: Alert, Oriented x3 Skin: Warm/Dry Lymphatic: No Adenopathy Results Lab Laboratory Tests 06/04/17 05:50: White Blood Count 8.5, Red Blood Count 2.89L, Hemoglobin 7.8L, Hematocrit 26L, Mean Corpuscular Volume 91, Mean Corpuscular Hemoglobin 27, Mean Corpuscular Hemoglobin Concent 30L, Red Cell Distribution Width 16.8H, Platelet Count 150, Mean Platelet Volume 9.6, Sodium Level 136, Potassium Level 3.5L, Chloride Level 102, Carbon Dioxide Level 28, Anion Gap 6, Blood Urea Nitrogen 10, Creatinine 0.70, Estimat Glomerular Filtration Rate > 60, BUN/Creatinine Ratio 14, Glucose Level 68L, Calcium Level 7.4L, Phosphorus Level 2.1L, Magnesium Level 1.1L, Total Bilirubin 0.4, Aspartate Amino Transf (AST/SGOT) 58H, Alanine Aminotransferase (ALT/SGPT) 97H, Alkaline Phosphatase 581H, Total Protein 4.5L, Albumin 1.9L, Prealbumin 7.0L, Triglycerides Level 135 Microbiology 05/28/17 Blood Culture - Final, Complete No growth 05/29/17 C. difficile GDH Antigen & Toxins - Final, Complete 05/21/17 Influenza Types A,B Antigen (BORA) - Final, Complete 05/23/17 Urine Culture - Final, Complete Presumptive [place] Assessment/Plan Assessment/Plan Assess & Plan/Chief Complaint SUPRA-THERAPEUTIC INR CHRONIC ANTICOAGULATION PNEUMONIA URINARY TRACT INFECTION BACK PAIN GENERALIZED WEAKNESS/MALAISE RECENT FALL AT HOME DEMENTIA HYPERTENSION PLEURAL EFFUSION NAUSEA ABDOMINAL PAIN TRANSIENT FEVERS HYPOCALCEMIA HYPOMAGNESEMIA TRANSAMINITIS HEMATEMESIS SUPRA-THERAPEUTIC INR - INR 1.2 TODAY - CONTINUE WITH COUMADIN DOSE AT 2MG NIGHTLY- CHECK DAILY INR'S PNEUMONIA - STARTED ON CEFEPIME AND ZYVOX - CHEST XRAY IMPROVING SLIGHTLY - CONTINUE TO ENCOURAGE INCENTIVE SPIROMETRY AND AEROBIKA. HEMATEMESIS - EGD WAS POSITIVE FOR A VERY SMALL ANTRAL ULCER PER DR. COHEN - CONTINUE WITH PPI BID AND CARAFATE. 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 - REPEAT UA NEGATIVE BACK PAIN - VOLTAREN GEL, IV PAIN MEDICATION. GENERALIZED WEAKNESS/MALAISE - STARTED PHYSICAL THERAPY. ABDOMINAL PAIN - WITH ELEVATED LFT'S - CHECKED CT OF ABDOMEN AND PELVIS -LIVER AND PANCREAS WERE BENIGN EXCEPT FOR SLIGHT BILIARY DILATION - LFT'S IMPROVING STARTED ON CARAFATE - ABDOMINAL PAIN IMPROVED. RECENT FALLS AT HOME - WILL NEED PT FOR GAIT TRAINING DEMENTIA - STABLE HYPERTENSION- CHRONIC - RESTARTED HOME MEDICATIONS. INTERMITTENT FEVERS - CHECKED TICK PANEL - NEGATIVE - STOPPED DOXYCYCLINE. HYPOCALCEMIA AND HYPOMAGNESEMIA - REPLENISH ORALLY AND IV, PT WAS STARTED ON TPN DUE TO VERY POOR ORAL FOOD INTAKE - STOPPED DUE TO ELEVATED LIVER ENZYMES. ELEVATED LIVER ENZYMES - CONTINUES TO IMPROVE - THIS IS THE SECOND TIME IN HER ADMISSION FOR ELEVATED LFT'S - LIKELY NOT DUE TO THE TPN THE FIRST TIME SHE HAD ELEVATED LFT'S SHE WAS NOT ON TPN, I HAVE REVIEWED PATIENT'S MEDICATIONS - STOPPED MYRBETRIC, NEURONTIN, REGLAN, AND TPN ON 06/01/17. IRON DEFICIENCY ANEMIA - STARTED ON VENOFER - LAST DOSE TO BE ON 06/04/17. PT FEELING BETTER TODAY - CONTINUE WITH CURRENT MANAGEMENT - APPRECIATE DR. BENSON'S INPUT. MALLORIE CONTRERAS MD Jun 04, 2017 08:41
[2017-06-04] MEDS ORDERED: diphenhydrAMINE 50 MG/ML INJ (BENADRYL) IVP PRN (08:45)
[2017-06-04] MEDS ORDERED: ACETAMINOPHEN 325 MG TABLET/CAPLET (TYLENOL) PO PRN (08:45)
[2017-06-04] MEDS: meTOprolol SUCCINATE 100 MG (TOPROL XL) TAB PO SCH (09:30)
[2017-06-04] MEDS: NS IV SCH (09:50)
[2017-06-04] MEDS: IRON SUCROSE IV SCH (09:50)
[2017-06-04] MEDS: MAGNESIUM 1 GM/100 ML IVPB 100 ML IV SCH ×4 (09:54→12:54)
[2017-06-04] MEDS: PANTOPRAZOLE 40 MG/10 ML (PROTONIX) VIAL IV SCH ×2 (09:54→20:59)
[2017-06-04] MEDS: DICLOFENAC 1% GEL 100 GM (VOLTAREN) TUBE TP SCH ×4 (10:17→21:02)
[2017-06-04] MEDS: ENOXAPARIN 40 MG/0.4 ML (LOVENOX) SYR SC SCH (10:19)
[2017-06-04 10:34] LABS: INR 1.1 (0.8-1.4); PROTHROMBIN TIME PATIENT 14.5 SEC (12.2-14.7)
--- NOTE | 2017-06-04 11:22 | Physical Therapy Daily Note ---
PT Daily Note-Current Subjective Patient reports she is not feeling well and is SOA. SAO2 at this time is 94% on 1L. Pain Numeric Pain Scale: 0-No Pain Location: No Pain Reported Mental Status Patient Orientation: Normal For Age Attachments: Oxygen, Lee Catheter, IV Transfers Functional [place] Measure 0=Not Assessed/NA 4=Minimal Assistance 1=Total Assistance 5=Supervision or Setup 2=Maximal Assistance 6=Modified [place] 3=Moderate Assistance 7=Complete IndependenceIRFPAI Quality Coding Scale 6 Independent with activity with or without an assistive device 5 Patient requires set up or clean up by helper. Patient completes activity by themselves 4 Supervision or touching assist (CGA). [place] provide cues , steadying assist 3 The helper provides less than half the effort to complete the activity 2 The helper provides more than half the effort to complete the activity 1 Dependent. The helper does all the effort to complete an activity 7 Patient refused to complete or attempt activity 9 The patient did not perform the activity before the current illness or injury 88 Not attempted due to Medical conditions or safety concerns Transfers (B, C, W/C) (FIM): 4 Scootin Sit to/from Stand: 4 Sit to Stand (QC): 3 Weight Bearing Right Lower Extremity: Right Weight Bearing/Tolerated Left Lower Extremity: Left Weight Bearing/Tolerated Exercises Supine Ex: Ankle pumps, Quad Set, Heel Slides, Straight leg raise, Hip abd/add Supine Reps: 10 Seated Therapy Exercises: Long arc quads Seated Reps: [address] Ex=Flex, Abd, Ext, Marching Standing Reps: 10 Assessment All exercises performed to improve patient gross motor strength and function. Patient tolerates minimal activity and remains up in recliner with needs met. PT Senior Living Goals Public Relations Assistant Goals PT Public Relations Assistant Goals Time Frame: Jun 26, 2017 Transfers (B,C,W/C) (FIM): 6 Sit to Lying (QC): 5 Lying-Sitting on Side/Bed(QC): 5 Sit to Stand (QC): 5 Rollin Chair/Ptw-qb-Dlhuu Xfer(QC): 5 Does the Patient Walk: Yes Gait (FIM): 6 Gait distance (FIM): 3=150 ft Distance: 200' Walk 50ft with 2 Turns (QC): 5 Walk 150 ft (QC): 5 Gait Level of Assist: 6 Gait Assistive Device: FWW PT Plan Treatment/Plan Treatment Plan: Continue Plan of Care Treatment Plan: Bed Mobility, Education, Functional Activity Tushar, Functional Strength, Gait, Safety, Therapeutic Exercise, Transfers Treatment Duration: Jun 26, 2017 Frequency: 6 times per week Estimated Hrs Per Day: .25 hour per day Patient and/or Family Agrees t: Yes Time/GCodes Time In: 1100 Time Out: 1115 Total Billed Treatment Time: 15 Total Billed Treatment 1 visit EX 15 min MARIYA MAE PT Jun 04, 2017 11:22
[2017-06-04 13:33] VITALS: BP 113/61
[2017-06-04] MEDS: ACETAMINOPHEN 325 MG TABLET/CAPLET (TYLENOL) PO PRN (13:41)
[2017-06-04 13:48] VITALS: BP 122/60
--- NOTE | 2017-06-04 15:29 | Occupational Ther Daily Note ---
OT Current Status-Daily Note Subjective Pt sitting in recliner with eyes closed. Pt opened eyes to name. Pt agreed to therapy. C/o being tired, but wanted to work. Mental Status/Objective Functional [place] Measure 0=Not Assessed/NA 4=Minimal Assistance 1=Total Assistance 5=Supervision or Setup 2=Maximal Assistance 6=Modified [place] 3=Moderate Assistance 7=Complete [place] ADL-Treatment Functional [place] Measure 0=Not Assessed/NA 4=Minimal Assistance 1=Total Assistance 5=Supervision or Setup 2=Maximal Assistance 6=Modified [place] 3=Moderate Assistance 7=Complete IndependenceIRFPAI Quality Coding Scale 6 Independent with activity with or without an assistive device 5 Patient requires set up or clean up by helper. Patient completes activity by themselves 4 Supervision or touching assist (CGA). [place] provide cues , steadying assist 3 The helper provides less than half the effort to complete the activity 2 The helper provides more than half the effort to complete the activity 1 Dependent. The helper does all the effort to complete an activity 7 Patient refused to complete or attempt activity 9 The patient did not perform the activity before the current illness or injury 88 Not attempted due to Medical conditions or safety concerns Other Treatment Pt completed 7 UE exercises against gravity, 3 sets 5 reps. Pt took recovery breaks between each set. Pt had eyes closed throughout treatment. Pt demonstrated good ROM throughout exercises. Pt verbalized that she had been completing her red theraband exercises. After therapy, pt sitting in recliner with call light/phone in reach. All needs met in room. OT Short Term Goals Short Term Goals 1=Demonstrate adherence to instructed precautions during ADL tasks. 2=Patient will verbalize/demonstrate understanding of assistive devices/ modifications for ADL. 3=Patient will improve strength/tolerance for activity to enable patient to perform ADL's. OT Barrel Scraper Goals Residential Goals Time Frame: Jun 26, 2017 Eating (FIM): 6 Eating (QC): 6 Groomin Oral Hygiene (QC): 6 Bathing(FIM): 5 Upper Body Dressing(FIM): 5 Lower Body Dressing(FIM): 5 Toileting(FIM): 6 Toileting Hygiene (QC): 6 Toilet/Commode Transfer(FIM): 6 Toilet/Commode Transfer (QC): 6 Additional Goals: 2-Verbalize Understanding, 3-ImproveStrength/Tushar 1=Demonstrate adherence to instructed precautions during ADL tasks. 2=Patient will verbalize/demonstrate understanding of assistive devices/ modifications for ADL. 3=Patient will improve strength/tolerance for activity to enable patient to perform ADL's. OT Education/Plan Problem List/Assessment Pt demonstrates decreased mobility, strength, activity tolerance, and ADL functioning. Pt to benefit from skilled OT intervention for ADL training, transfers, strengthening, and home safety education to maximize level of function and allow safe discharge. Discharge Recommendations Plan/Recommendations: Continue POC Treatment Plan/Plan of Care Patient would benefit from OT for education, treatment and training to promote independence in ADL's, mobility, safety and/or upper extremity function for ADL' s. Plan of Care: ADL Retraining, Functional Mobility, UE Funct Exercise/Act Treatment Duration: Jun 26, 2017 Frequency: 5 times per week Estimated Hrs Per Day: .5 hour per day Agreement: Yes Rehab Potential: Fair Time/GCodes Start Time: 14:20 Stop Time: 14:35 Total Time Billed (hr/min): 15 Billed Treatment Time 1 visit-EX 1 (15 min) ROSIE MAZARIEGOS Jun 04, 2017 15:29
[2017-06-04 15:42] VITALS: BP 126/68
[2017-06-04] MEDS: warFARin 3 MG (COUMADIN) TAB PO SCH (17:59)
[2017-06-04 19:20] VITALS: BP 117/56
[2017-06-05 05:26] LABS: MEAN PLATELET VOLUME 9.5 FL (7.4-10.4); RED BLOOD COUNT 3.26 10^6/uL (4.35-5.85); RED CELL DISTRIBUTION WIDTH 16.9 % (10.0-14.5); WHITE BLOOD COUNT 9.1 10^3/uL (4.3-11.0)
[2017-06-05 05:49] LABS: ALANINE AMINOTRANSFERASE 94 U/L (0-55); ALBUMIN 1.9 GM/DL (3.2-4.5); ANION GAP 5 MMOL/L (5-14); ASPARTATE AMINO TRANSFERASE 58 U/L (5-34); BILIRUBIN,TOTAL 0.6 MG/DL (0.1-1.0); BLOOD UREA NITROGEN 7 MG/DL (7-18); BUN/CREATININE RATIO 10; CALCIUM 7.5 MG/DL (8.5-10.1); CARBON DIOXIDE 31 MMOL/L (21-32); CHLORIDE 101 MMOL/L (98-107); CREATININE SERUM 0.69 MG/DL (0.60-1.30); GFR ESTIMATED > 60; GLUCOSE 75 MG/DL (70-105); MAGNESIUM 1.5 MG/DL (1.8-2.4); POTASSIUM 3.2 MMOL/L (3.6-5.0); SODIUM 137 MMOL/L (135-145); TOTAL PROTEIN 4.5 GM/DL (6.4-8.2)
[2017-06-05] MEDS: SUCRALFATE 1 GM (CARAFATE) TAB PO SCH ×4 (05:56→20:53)
[2017-06-05] MEDS: LEVOTHYROXINE 25 MCG (LEVOTHROID) TAB PO SCH (05:56)
[2017-06-05] MEDS: LEVOTHYROXINE 112 MCG (LEVOTHROID) TAB PO SCH (05:56)
[2017-06-05] MEDS: CYPROHEPTADINE (PERIACTIN) 4 MG TAB PO SCH ×3 (05:57→21:00)
[2017-06-05] MEDS: CALCIUM CARBONATE 600 MG (CALCARB) TAB PO SCH ×3 (06:00→17:27)
[2017-06-05] MEDS: KCL 20 MEQ TAB (K-DUR) PO SCH (06:00)
[2017-06-05] MEDS: FUROSEMIDE 40 MG/4 ML INJ (LASIX) IVP SCH ×2 (06:00→17:27)
[2017-06-05] MEDS: CATHETER FLUSH 10 ML SYR IV SCH ×3 (06:27→21:00)
[2017-06-05 08:00] VITALS: BP 137/71
[2017-06-05] MEDS: RT-ALBUTEROL/IPRATROPIUM 3 ML (DUONEB) VIAL INH SCH ×2 (08:28→19:00)
--- NOTE | 2017-06-05 08:43 | Progress Note (SOAP) ---
Subjective Date Seen by Provider: Jun 05, 2017 Time Seen by Provider: 08:43 Subjective/Events-last exam PT REPORTS THAT SHE IS FEELING SO MUCH BETTER TODAY. SHE REPORTS THAT SHE IS NO LONGER DRINKING ENSURE DUE TO IT MAKING HER HAVE MORE PHLEGM CAUSING HER TO HAVE COUGH AND NAUSEA. HER FAMILY IS ASKING ABOUT INPATIENT REHAB UPON PLANNED DISCHARGE FOR IMPROVEMENT IN STRENGTH PRIOR TO PT GOING HOME. Review of Systems General: No Chills, Fatigue, Malaise HEENT: No Head Aches Pulmonary: Dyspnea, Cough Cardiovascular: No: Chest Pain Gastrointestinal: No: Nausea Genitourinary: No Dysuria Neurological: Weakness, No: Confusion Objective Exam Vital Signs Date Time Temp Pulse Resp B/P (MAP) Pulse Ox O2 Delivery O2 Flow Rate FiO2 06/05/17 08:15 93 Nasal Cannula 1.00 06/04/17 21:07 92 Nasal Cannula 1.00 06/04/17 20:00 Nasal Cannula 1.00 06/04/17 19:20 97.7 78 18 117/56 94 Nasal Cannula 1.00 06/04/17 15:42 98.0 83 126/68 06/04/17 14:34 98.4 06/04/17 13:48 98.6 82 122/60 06/04/17 13:41 98.2 06/04/17 13:33 98.2 81 113/61 Capillary Refill : Less Than 3 Seconds General Appearance: No Apparent Distress, WD/WN HEENT: PERRL/EOMI Neck: Full Range of Motion Respiratory: Chest Non Tender (FAINT [place] CRACKLES) Cardiovascular: Regular Rate, Rhythm Gastrointestinal: normal bowel sounds, soft Extremity: Pedal Edema (IMPROVED FROM YESTERDAY) Neurologic/Psychiatric: Alert, Oriented x3, Normal Mood/Affect Skin: Warm/Dry Results Lab Laboratory Tests 06/04/17 09:56: Prothrombin Time 14.5, INR Comment 1.1 06/04/17 17:42: Hemoglobin 9.7#L, Hematocrit 31L 06/05/17 05:12: Hemoglobin 9.0L, Hematocrit 29L, White Blood Count 9.1, Red Blood Count 3.26L, Mean Corpuscular Volume 90, Mean Corpuscular Hemoglobin 28, Mean Corpuscular Hemoglobin Concent 31L, Red Cell Distribution Width 16.9H, Platelet Count 143, Mean Platelet Volume 9.5, Sodium Level 137, Potassium Level 3.2L, Chloride Level 101, Carbon Dioxide Level 31, Anion Gap 5, Blood Urea Nitrogen 7, Creatinine 0.69, Estimat Glomerular Filtration Rate > 60, BUN/Creatinine Ratio 10, Glucose Level 75, Calcium Level 7.5L, Magnesium Level 1.5L, Total Bilirubin 0.6, Aspartate Amino Transf (AST/SGOT) 58H, Alanine Aminotransferase (ALT/SGPT) 94H, Alkaline Phosphatase 526H, Total Protein 4.5L, Albumin 1.9L Microbiology 05/28/17 Blood Culture - Final, Complete No growth 05/29/17 C. difficile GDH Antigen & Toxins - Final, Complete 05/21/17 Influenza Types A,B Antigen (BORA) - Final, Complete 05/23/17 Urine Culture - Final, Complete Presumptive [place] Assessment/Plan Assessment/Plan Assess & Plan/Chief Complaint SUPRA-THERAPEUTIC INR CHRONIC ANTICOAGULATION PNEUMONIA URINARY TRACT INFECTION BACK PAIN GENERALIZED WEAKNESS/MALAISE RECENT FALL AT HOME DEMENTIA HYPERTENSION PLEURAL EFFUSION NAUSEA ABDOMINAL PAIN TRANSIENT FEVERS HYPOCALCEMIA HYPOMAGNESEMIA TRANSAMINITIS HEMATEMESIS SUPRA-THERAPEUTIC INR - INR 1.2 TODAY - CONTINUE WITH COUMADIN DOSE AT 3MG NIGHTLY- CHECK DAILY INR'S PNEUMONIA - STARTED ON CEFEPIME AND ZYVOX - CHEST XRAY IMPROVING SLIGHTLY - CONTINUE TO ENCOURAGE INCENTIVE SPIROMETRY AND AEROBIKA. HEMATEMESIS - EGD WAS POSITIVE FOR A VERY SMALL ANTRAL ULCER PER DR. COHEN - CONTINUE WITH PPI BID AND CARAFATE. 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 - REPEAT UA NEGATIVE BACK PAIN - VOLTAREN GEL, IV PAIN MEDICATION. GENERALIZED WEAKNESS/MALAISE - STARTED PHYSICAL THERAPY. ABDOMINAL PAIN - WITH ELEVATED LFT'S - CHECKED CT OF ABDOMEN AND PELVIS -LIVER AND PANCREAS WERE BENIGN EXCEPT FOR SLIGHT BILIARY DILATION - LFT'S STILL ELEVATED, BUT IMPROVED STARTED ON CARAFATE - ABDOMINAL PAIN IMPROVED. RECENT FALLS AT HOME - WILL NEED PT FOR GAIT TRAINING DEMENTIA - STABLE HYPERTENSION- CHRONIC - RESTARTED HOME MEDICATIONS. INTERMITTENT FEVERS - CHECKED TICK PANEL - NEGATIVE - STOPPED DOXYCYCLINE. HYPOCALCEMIA AND HYPOMAGNESEMIA - REPLENISH ORALLY AND IV, PT WAS STARTED ON TPN DUE TO VERY POOR ORAL FOOD INTAKE - STOPPED TODAY DUE TO ELEVATED LIVER ENZYMES. ELEVATED LIVER ENZYMES - THIS IS THE SECOND TIME IN HER ADMISSION FOR ELEVATED LFT'S - LIKELY NOT DUE TO THE TPN THE FIRST TIME SHE HAD ELEVATED LFT'S SHE WAS NOT ON TPN, I HAVE REVIEWED PATIENT'S MEDICATIONS - STOPPED MYRBETRIC, NEURONTIN, REGLAN, AND TPN ON 06/01/17. IRON DEFICIENCY ANEMIA - STARTED ON VENOFER - LAST DOSE TO BE ON 06/04/17. WILL CONSULT INPATIENT REHAB ON THURSDAY FOR AN OPINION ON POSSIBLE INPATIENT REHAB ADMISSION MALLORIE CONTRERAS MD Jun 05, 2017 08:43
[2017-06-05] MEDS: meTOprolol SUCCINATE 100 MG (TOPROL XL) TAB PO SCH (09:12)
[2017-06-05] MEDS: ENOXAPARIN 40 MG/0.4 ML (LOVENOX) SYR SC SCH (09:12)
[2017-06-05] MEDS: PANTOPRAZOLE 40 MG/10 ML (PROTONIX) VIAL IV SCH ×2 (09:12→20:52)
[2017-06-05] MEDS: ASPIRIN E.C. 81 MG (ECOTRIN) TAB PO SCH (09:12)
[2017-06-05] MEDS: DICLOFENAC 1% GEL 100 GM (VOLTAREN) TUBE TP SCH ×4 (09:12→21:00)
[2017-06-05 10:03] LABS: INR 1.2 (0.8-1.4); PROTHROMBIN TIME PATIENT 15.1 SEC (12.2-14.7)
--- NOTE | 2017-06-05 15:48 | Physical Therapy Daily Note ---
PT Daily Note-Current Subjective Patient in recliner pre tx, agrees to PT, is willing to ambulate, has no complaints of pain. Appearance Patient in recliner post tx with nurse call, phone, tray, family in the room. Mental Status Patient Orientation: Person, Place, Situation Attachments: SCD's, Oxygen, Lee Catheter Transfers Functional [place] Measure 0=Not Assessed/NA 4=Minimal Assistance 1=Total Assistance 5=Supervision or Setup 2=Maximal Assistance 6=Modified [place] 3=Moderate Assistance 7=Complete IndependenceIRFPAI Quality Coding Scale 6 Independent with activity with or without an assistive device 5 Patient requires set up or clean up by helper. Patient completes activity by themselves 4 Supervision or touching assist (CGA). [place] provide cues , steadying assist 3 The helper provides less than half the effort to complete the activity 2 The helper provides more than half the effort to complete the activity 1 Dependent. The helper does all the effort to complete an activity 7 Patient refused to complete or attempt activity 9 The patient did not perform the activity before the current illness or injury 88 Not attempted due to Medical conditions or safety concerns Transfers (B, C, W/C) (FIM): 4 Sit to/from Stand: 4 min assist to stand from recliner, cues for safety and hand placement Weight Bearing Right Lower Extremity: Right Weight Bearing/Tolerated Left Lower Extremity: Left Weight Bearing/Tolerated Gait Training Gait (FIM): 2 Distance: 80' Gait Level of Assist: 4 Gait Persons Needed: 1 Gait Assistive Device: FWW slow ambulation, CGA, needs occasional rest breaks to catch breath, needs cues to purse lip breathe Treatments transfers, ambulation Assessment Current Status: Fair Progress improving endurance and ambulation PT Correction Goals Gang Tailer Goals PT Gang Tailer Goals Time Frame: Jun 26, 2017 Transfers (B,C,W/C) (FIM): 6 Sit to Lying (QC): 5 Lying-Sitting on Side/Bed(QC): 5 Sit to Stand (QC): 5 Rollin Chair/Fjn-sm-Vlawz Xfer(QC): 5 Does the Patient Walk: Yes Gait (FIM): 6 Gait distance (FIM): 3=150 ft Distance: 200' Walk 50ft with 2 Turns (QC): 5 Walk 150 ft (QC): 5 Gait Level of Assist: 6 Gait Assistive Device: FWW PT Plan Problem List Problem List: Activity Tolerance, Functional Strength, Safety, Balance, Gait, Transfer, Bed Mobility, ROM Treatment/Plan Treatment Plan: Continue Plan of Care Treatment Plan: Bed Mobility, Education, Functional Activity Tushar, Functional Strength, Gait, Safety, Therapeutic Exercise, Transfers Treatment Duration: Jun 26, 2017 Frequency: 6 times per week Estimated Hrs Per Day: .25 hour per day Patient and/or Family Agrees t: Yes Safety Risks/Education Patient Education: Gait Training, Transfer Techniques, Correct Positioning, Safety Issues Teaching Recipient: Patient Teaching Methods: Demonstration, Discussion Response to Teaching: Reinforcement Needed Time/GCodes Time In: 1530 Time Out: 1550 Total Billed Treatment Time: 20 Total Billed Treatment 1 visit GT 20' ANDREA VOGEL PT Jun 05, 2017 15:48
--- NOTE | 2017-06-05 15:57 | Occupational Ther Daily Note ---
OT Current Status-Daily Note Subjective Pt alert, sitting in recliner. Pt's granddaughter present in room. Pt agreed to therapy. No c/o pain. Mental Status/Objective Patient Orientation: Person, Place, Time, Situation Functional [place] Measure 0=Not Assessed/NA 4=Minimal Assistance 1=Total Assistance 5=Supervision or Setup 2=Maximal Assistance 6=Modified [place] 3=Moderate Assistance 7=Complete [place] ADL-Treatment Functional [place] Measure 0=Not Assessed/NA 4=Minimal Assistance 1=Total Assistance 5=Supervision or Setup 2=Maximal Assistance 6=Modified [place] 3=Moderate Assistance 7=Complete IndependenceIRFPAI Quality Coding Scale 6 Independent with activity with or without an assistive device 5 Patient requires set up or clean up by helper. Patient completes activity by themselves 4 Supervision or touching assist (CGA). [place] provide cues , steadying assist 3 The helper provides less than half the effort to complete the activity 2 The helper provides more than half the effort to complete the activity 1 Dependent. The helper does all the effort to complete an activity 7 Patient refused to complete or attempt activity 9 The patient did not perform the activity before the current illness or injury 88 Not attempted due to Medical conditions or safety concerns Other Treatment Pt completed 3 hand exercises with light resistance therapy sponge to increase strength for daily functional tasks. Then completed 4 medium resistance theraband UE exercises 1 set 15 reps. Pt stated she was worn out after exercises. After therapy, pt sitting in recliner with call light/phone in reach. All needs met in room. OT Short Term Goals Short Term Goals 1=Demonstrate adherence to instructed precautions during ADL tasks. 2=Patient will verbalize/demonstrate understanding of assistive devices/ modifications for ADL. 3=Patient will improve strength/tolerance for activity to enable patient to perform ADL's. OT Care Home Goals Care Home Goals Time Frame: Jun 26, 2017 Eating (FIM): 6 Eating (QC): 6 Groomin Oral Hygiene (QC): 6 Bathing(FIM): 5 Upper Body Dressing(FIM): 5 Lower Body Dressing(FIM): 5 Toileting(FIM): 6 Toileting Hygiene (QC): 6 Toilet/Commode Transfer(FIM): 6 Toilet/Commode Transfer (QC): 6 Additional Goals: 2-Verbalize Understanding, 3-ImproveStrength/Tushar 1=Demonstrate adherence to instructed precautions during ADL tasks. 2=Patient will verbalize/demonstrate understanding of assistive devices/ modifications for ADL. 3=Patient will improve strength/tolerance for activity to enable patient to perform ADL's. OT Education/Plan Problem List/Assessment Pt demonstrates decreased mobility, strength, activity tolerance, and ADL functioning. Pt to benefit from skilled OT intervention for ADL training, transfers, strengthening, and home safety education to maximize level of function and allow safe discharge. Discharge Recommendations Plan/Recommendations: Continue POC Treatment Plan/Plan of Care Patient would benefit from OT for education, treatment and training to promote independence in ADL's, mobility, safety and/or upper extremity function for ADL' s. Plan of Care: ADL Retraining, Functional Mobility, UE Funct Exercise/Act Treatment Duration: Jun 26, 2017 Frequency: 5 times per week Estimated Hrs Per Day: .5 hour per day Agreement: Yes Rehab Potential: Fair Time/GCodes Start Time: 15:06 Stop Time: 15:21 Total Time Billed (hr/min): 15 Billed Treatment Time 1 visit-EX 1 (15 min) ROSIE MAZARIEGOS Jun 05, 2017 15:57
[2017-06-05] MEDS: warFARin 3 MG (COUMADIN) TAB PO SCH (17:27)
[2017-06-05 20:38] VITALS: BP 127/74
[2017-06-06 05:24] LABS: MEAN PLATELET VOLUME 9.4 FL (7.4-10.4); RED BLOOD COUNT 3.23 10^6/uL (4.35-5.85); WHITE BLOOD COUNT 9.4 10^3/uL (4.3-11.0)
[2017-06-06 05:51] LABS: POTASSIUM 3.1 MMOL/L (3.6-5.0); SODIUM 140 MMOL/L (135-145)
[2017-06-06 05:52] LABS: ALANINE AMINOTRANSFERASE 88 U/L (0-55); ANION GAP 4 MMOL/L (5-14); ASPARTATE AMINO TRANSFERASE 60 U/L (5-34); BILIRUBIN,TOTAL 0.5 MG/DL (0.1-1.0); BLOOD UREA NITROGEN 7 MG/DL (7-18); BUN/CREATININE RATIO 10; CALCIUM 7.8 MG/DL (8.5-10.1); CARBON DIOXIDE 35 MMOL/L (21-32); CHLORIDE 101 MMOL/L (98-107); CREATININE SERUM 0.67 MG/DL (0.60-1.30); GFR ESTIMATED > 60; GLUCOSE 78 MG/DL (70-105); MAGNESIUM 1.1 MG/DL (1.8-2.4); TOTAL PROTEIN 4.7 GM/DL (6.4-8.2)
[2017-06-06] MEDS: LEVOTHYROXINE 112 MCG (LEVOTHROID) TAB PO SCH (06:11)
[2017-06-06] MEDS: CATHETER FLUSH 10 ML SYR IV SCH ×3 (06:11→21:08)
[2017-06-06] MEDS: CALCIUM CARBONATE 600 MG (CALCARB) TAB PO SCH ×3 (06:11→16:49)
[2017-06-06] MEDS: KCL 20 MEQ TAB (K-DUR) PO SCH (06:11)
[2017-06-06] MEDS: SUCRALFATE 1 GM (CARAFATE) TAB PO SCH ×4 (06:11→21:07)
[2017-06-06] MEDS: CYPROHEPTADINE (PERIACTIN) 4 MG TAB PO SCH ×3 (06:11→21:07)
[2017-06-06] MEDS: FUROSEMIDE 40 MG/4 ML INJ (LASIX) IVP SCH (06:11)
[2017-06-06] MEDS: LEVOTHYROXINE 25 MCG (LEVOTHROID) TAB PO SCH (06:11)
[2017-06-06 07:55] VITALS: BP 127/74
[2017-06-06] MEDS: PANTOPRAZOLE 40 MG/10 ML (PROTONIX) VIAL IV SCH ×2 (09:18→21:07)
[2017-06-06] MEDS: DICLOFENAC 1% GEL 100 GM (VOLTAREN) TUBE TP SCH ×4 (09:18→21:08)
[2017-06-06] MEDS: meTOprolol SUCCINATE 100 MG (TOPROL XL) TAB PO SCH (09:19)
[2017-06-06] MEDS: ENOXAPARIN 40 MG/0.4 ML (LOVENOX) SYR SC SCH (09:19)
[2017-06-06 09:41] LABS: INR 1.3 (0.8-1.4); PROTHROMBIN TIME PATIENT 16.1 SEC (12.2-14.7)
--- NOTE | 2017-06-06 10:31 | Progress Note-Hospitalist ---
Subjective HPI/CC On Admission Date Seen by Provider: Jun 06, 2017 Time Seen by Provider: 10:20 Subjective/Events-last exam Mrs. Beltre voices no complaints today. Her appetite is improving and she denies any problems with pain or cramping. Objective Exam Vital Signs Vital Sign - Last 12Hours 05/31/17 05/31/17 08:00 09:26 Temp 98.0 Pulse 102 Resp 20 B/P (MAP) 137/72 Pulse Ox 94 O2 Delivery Nasal Cannula O2 Flow Rate 1.50 FiO2 28 Capillary Refill : Less Than 3 Seconds General Appearance: No Apparent Distress, Chronically ill Respiratory: Chest Non Tender, Lungs Clear, Normal Breath Sounds, No Accessory Muscle Use, No Respiratory Distress Cardiovascular: Regular Rate, Rhythm, No Edema, No JVD, Systolic Murmur (2/6 at the left lower sternal border and second right intercostal space.), Gallop/S4 Gastrointestinal: Normal Bowel Sounds, No Organomegaly, No Pulsatile Mass, Non Tender, Soft Extremity: Normal Inspection, Non Tender, No Pedal Edema Results/Procedures Lab Laboratory Tests 06/06/17 05:15 Assessment/Plan Assessment and Plan Assess & Plan/Chief Complaint 1. Malnutrition with fatigue multifactorial improving. 2. Reported dementia with failure to thrive at home. 3. Hypomagnesemia and hypokalemia due to diuretic therapy and number 1. Currently edema resolved and blood pressure normal will DC IV Lasix switching to 40 mg by mouth every morning daily. We'll replace magnesium IV 2 g today and continue current potassium dose. 4. History of bioprosthetic aortic valve replacement with essentially normally functioning valve on echo 2 weeks ago with preserved systolic function. 5. History of hypertension well controlled during this hospital stay. Plan is for possible rehabilitation transfer next week. DAVID SORTO MD Jun 06, 2017 10:31
[2017-06-06] MEDS: ACETAMINOPHEN 325 MG TABLET/CAPLET (TYLENOL) PO PRN (11:01)
[2017-06-06] MEDS: MAGNESIUM 1 GM/100 ML IVPB 100 ML IV SCH ×2 (11:46→12:46)
--- NOTE | 2017-06-06 13:54 | Physical Therapy Daily Note ---
PT Daily Note-Current Subjective Pt reclined in recliner upon arrival. Pt agrees to Seated Ex due to feeling fatigued. Pain Location: No Pain Reported Mental Status Patient Orientation: Person, Place, Situation Attachments: IV Transfers Functional [place] Measure 0=Not Assessed/NA 4=Minimal Assistance 1=Total Assistance 5=Supervision or Setup 2=Maximal Assistance 6=Modified [place] 3=Moderate Assistance 7=Complete IndependenceIRFPAI Quality Coding Scale 6 Independent with activity with or without an assistive device 5 Patient requires set up or clean up by helper. Patient completes activity by themselves 4 Supervision or touching assist (CGA). [place] provide cues , steadying assist 3 The helper provides less than half the effort to complete the activity 2 The helper provides more than half the effort to complete the activity 1 Dependent. The helper does all the effort to complete an activity 7 Patient refused to complete or attempt activity 9 The patient did not perform the activity before the current illness or injury 88 Not attempted due to Medical conditions or safety concerns Weight Bearing Right Lower Extremity: Right Weight Bearing/Tolerated Left Lower Extremity: Left Weight Bearing/Tolerated Exercises Seated Therapy Exercises: Ankle pumps, Long arc quads, Hip flexion, Kicking activity, Hip abd/add Seated Reps: 20 Treatments Pt completes Seated Ex in recliner with a couple of short rest breaks during tx. Pt asks to recline back in recliner at end of tx to rest with all needs met. Assessment Current Status: Good Progress Pt able to complete Ex as asked. PT Half-Way Goals Half-Way Goals PT Medical Record Assistant Goals Time Frame: Jun 26, 2017 Transfers (B,C,W/C) (FIM): 6 Sit to Lying (QC): 5 Lying-Sitting on Side/Bed(QC): 5 Sit to Stand (QC): 5 Rollin Chair/Nut-ka-Piofw Xfer(QC): 5 Does the Patient Walk: Yes Gait (FIM): 6 Gait distance (FIM): 3=150 ft Distance: 200' Walk 50ft with 2 Turns (QC): 5 Walk 150 ft (QC): 5 Gait Level of Assist: 6 Gait Assistive Device: FWW PT Plan Problem List Problem List: Activity Tolerance, Functional Strength, Safety, Balance, Gait, Transfer Treatment/Plan Treatment Plan: Continue Plan of Care Treatment Plan: Bed Mobility, Education, Functional Activity Tushar, Functional Strength, Gait, Safety, Therapeutic Exercise, Transfers Treatment Duration: Jun 26, 2017 Frequency: 6 times per week Estimated Hrs Per Day: .25 hour per day Patient and/or Family Agrees t: Yes Safety Risks/Education Patient Education: Transfer Techniques, Correct Positioning, Safety Issues Teaching Recipient: Patient Teaching Methods: Discussion Response to Teaching: Verbalize Understanding Time/GCodes Time In: 1250 Time Out: 1310 Total Billed Treatment Time: 20 Total Billed Treatment visit, EX (20m) MAHSA VALENZUELA PTA Jun 06, 2017 13:54
[2017-06-06 15:00] VITALS: BP 146/69
[2017-06-06] MEDS: warFARin 3 MG (COUMADIN) TAB PO SCH (16:50)
[2017-06-06 20:00] VITALS: BP 133/61
[2017-06-07] MEDS: KCL 20 MEQ TAB (K-DUR) PO SCH ×2 (06:08→16:02)
[2017-06-07] MEDS: LEVOTHYROXINE 112 MCG (LEVOTHROID) TAB PO SCH (06:08)
[2017-06-07] MEDS: LEVOTHYROXINE 25 MCG (LEVOTHROID) TAB PO SCH (06:08)
[2017-06-07] MEDS: CALCIUM CARBONATE 600 MG (CALCARB) TAB PO SCH ×3 (06:08→16:02)
[2017-06-07] MEDS: CYPROHEPTADINE (PERIACTIN) 4 MG TAB PO SCH ×3 (06:09→21:12)
[2017-06-07] MEDS: SUCRALFATE 1 GM (CARAFATE) TAB PO SCH ×4 (06:16→20:37)
[2017-06-07] MEDS: CATHETER FLUSH 10 ML SYR IV SCH ×3 (06:17→20:36)
[2017-06-07 07:35] VITALS: BP 176/79
[2017-06-07] MEDS: ENOXAPARIN 40 MG/0.4 ML (LOVENOX) SYR SC SCH (08:24)
[2017-06-07] MEDS: DICLOFENAC 1% GEL 100 GM (VOLTAREN) TUBE TP SCH ×4 (08:24→20:36)
[2017-06-07] MEDS: PANTOPRAZOLE 40 MG/10 ML (PROTONIX) VIAL IV SCH ×2 (08:25→20:36)
[2017-06-07] MEDS: FUROSEMIDE 40 MG (LASIX) TAB PO SCH (08:25)
[2017-06-07] MEDS: meTOprolol SUCCINATE 100 MG (TOPROL XL) TAB PO SCH (08:25)
[2017-06-07 08:53] LABS: RED BLOOD COUNT 3.25 10^6/uL (4.35-5.85); RED CELL DISTRIBUTION WIDTH 17.1 % (10.0-14.5)
[2017-06-07 09:11] LABS: ALANINE AMINOTRANSFERASE 86 U/L (0-55); ANION GAP 8 MMOL/L (5-14); ASPARTATE AMINO TRANSFERASE 58 U/L (5-34); BILIRUBIN,TOTAL 0.4 MG/DL (0.1-1.0); BLOOD UREA NITROGEN 7 MG/DL (7-18); BUN/CREATININE RATIO 11; CALCIUM 7.6 MG/DL (8.5-10.1); CARBON DIOXIDE 32 MMOL/L (21-32); CHLORIDE 101 MMOL/L (98-107); CREATININE SERUM 0.63 MG/DL (0.60-1.30); GFR ESTIMATED > 60; GLUCOSE 67 MG/DL (70-105); MAGNESIUM 1.3 MG/DL (1.8-2.4); POTASSIUM 2.9 MMOL/L (3.6-5.0); SODIUM 141 MMOL/L (135-145); TOTAL PROTEIN 4.7 GM/DL (6.4-8.2)
[2017-06-07 09:47] LABS: INR 1.5 (0.8-1.4); PROTHROMBIN TIME PATIENT 18.1 SEC (12.2-14.7)
[2017-06-07] MEDS: ONDANSETRON 4 MG/2 ML (SDV) Z0FRAN IVP PRN (11:42)
--- NOTE | 2017-06-07 11:43 | Progress Note-Hospitalist ---
Subjective HPI/CC On Admission Date Seen by Provider: Jun 07, 2017 Time Seen by Provider: 11:38 Subjective/Events-last exam Mrs. Beltre voices no complaints today. Her daughter at the bedside reports that her appetite is improved today. She has been bringing some relatively healthy fair from home that she likes. She denies abdominal pain or nausea. Objective Exam Vital Signs Vital Sign - Last 12Hours 06/01/17 06/01/17 06/03/17 00:00 08:00 08:14 Temp 98.0 Pulse 87 Resp 20 B/P (MAP) 145/72 Pulse Ox 95 O2 Delivery Nasal Cannula O2 Flow Rate 2.00 FiO2 24 Capillary Refill : Less Than 3 Seconds General Appearance: No Apparent Distress Respiratory: Chest Non Tender, Lungs Clear, Normal Breath Sounds, No Accessory Muscle Use, No Respiratory Distress Cardiovascular: Regular Rate, Rhythm, No Edema, No Gallop, No JVD, Systolic Murmur (1-2/6 over the aortic outflow tract. Unchanged) Gastrointestinal: Normal Bowel Sounds, No Organomegaly, No Pulsatile Mass, Non Tender, Soft Results/Procedures Lab Laboratory Tests 06/07/17 06:09 Assessment/Plan Assessment and Plan Assess & Plan/Chief Complaint 1. Malnutrition with fatigue multifactorial improving. 2. Reported dementia with failure to thrive at home. 3. Hypomagnesemia and hypokalemia due to diuretic therapy and number 1. we'll give another 2 g of mag sulfate IV today and increase potassium to 20 mg twice a day continue daily BMP and CBC for now. 4. History of bioprosthetic aortic valve replacement with essentially normally functioning valve on echo 2 weeks ago with preserved systolic function. 5. History of hypertension well controlled during this hospital stay. Plan is for possible rehabilitation transfer next week. DAVID SORTO MD Jun 07, 2017 11:43
[2017-06-07] MEDS: MAGNESIUM 1 GM/100 ML IVPB 100 ML IV SCH ×2 (11:46→12:46)
[2017-06-07] MEDS: warFARin 3 MG (COUMADIN) TAB PO SCH (17:21)
[2017-06-07 20:00] VITALS: BP 161/82
[2017-06-08] MEDS: LEVOTHYROXINE 112 MCG (LEVOTHROID) TAB PO SCH (05:31)
[2017-06-08] MEDS: CYPROHEPTADINE (PERIACTIN) 4 MG TAB PO SCH ×2 (05:31→13:46)
[2017-06-08] MEDS: LEVOTHYROXINE 25 MCG (LEVOTHROID) TAB PO SCH (05:31)
[2017-06-08] MEDS: SUCRALFATE 1 GM (CARAFATE) TAB PO SCH ×3 (05:31→17:10)
[2017-06-08] MEDS: CATHETER FLUSH 10 ML SYR IV SCH ×2 (05:31→13:45)
[2017-06-08 05:48] LABS: MEAN PLATELET VOLUME 9.4 FL (7.4-10.4); RED BLOOD COUNT 3.25 10^6/uL (4.35-5.85); RED CELL DISTRIBUTION WIDTH 17.1 % (10.0-14.5); WHITE BLOOD COUNT 9.2 10^3/uL (4.3-11.0)
[2017-06-08 06:04] LABS: ANION GAP 5 MMOL/L (5-14); BLOOD UREA NITROGEN 7 MG/DL (7-18); BUN/CREATININE RATIO 11; CALCIUM 7.5 MG/DL (8.5-10.1); CARBON DIOXIDE 35 MMOL/L (21-32); CHLORIDE 102 MMOL/L (98-107); CREATININE SERUM 0.66 MG/DL (0.60-1.30); GFR ESTIMATED > 60; GLUCOSE 73 MG/DL (70-105); POTASSIUM 3.2 MMOL/L (3.6-5.0); SODIUM 142 MMOL/L (135-145)
[2017-06-08 08:53] LABS: ALBUMIN 2.1 GM/DL (3.2-4.5); BILIRUBIN,DIRECT 0.2 MG/DL (0.0-0.3); BILIRUBIN,INDIRECT 0.2 MG/DL; BILIRUBIN,TOTAL 0.4 MG/DL (0.1-1.0); TOTAL PROTEIN 4.7 GM/DL (6.4-8.2)
[2017-06-08 09:00] VITALS: BP 141/68
[2017-06-08] MEDS: ENOXAPARIN 40 MG/0.4 ML (LOVENOX) SYR SC SCH (09:19)
[2017-06-08] MEDS: CALCIUM CARBONATE 600 MG (CALCARB) TAB PO SCH ×3 (09:19→17:10)
[2017-06-08] MEDS: PANTOPRAZOLE 40 MG/10 ML (PROTONIX) VIAL IV SCH (09:19)
[2017-06-08] MEDS: FUROSEMIDE 40 MG (LASIX) TAB PO SCH (09:19)
[2017-06-08] MEDS: meTOprolol SUCCINATE 100 MG (TOPROL XL) TAB PO SCH (09:20)
[2017-06-08] MEDS: KCL 20 MEQ TAB (K-DUR) PO SCH ×2 (09:20→17:10)
[2017-06-08] MEDS: DICLOFENAC 1% GEL 100 GM (VOLTAREN) TUBE TP SCH ×3 (09:20→17:00)
[2017-06-08] MEDS: ASPIRIN E.C. 81 MG (ECOTRIN) TAB PO SCH (09:20)
--- NOTE | 2017-06-08 09:22 | Physical Therapy Daily Note ---
PT Daily Note-Current Subjective Patient is alert in her recliner upon PT entering the room. Patient is in good spirits and reports that she can get up by herself. Patient's daughter reports that she did her exercises this morning already. Pain Numeric Pain Scale: 0-No Pain Location: No Pain Reported Appearance Patient appears in improved health. Mental Status Patient Orientation: Normal For Age Attachments: SCD's Transfers Functional [place] Measure 0=Not Assessed/NA 4=Minimal Assistance 1=Total Assistance 5=Supervision or Setup 2=Maximal Assistance 6=Modified [place] 3=Moderate Assistance 7=Complete IndependenceIRFPAI Quality Coding Scale 6 Independent with activity with or without an assistive device 5 Patient requires set up or clean up by helper. Patient completes activity by themselves 4 Supervision or touching assist (CGA). [place] provide cues , steadying assist 3 The helper provides less than half the effort to complete the activity 2 The helper provides more than half the effort to complete the activity 1 Dependent. The helper does all the effort to complete an activity 7 Patient refused to complete or attempt activity 9 The patient did not perform the activity before the current illness or injury 88 Not attempted due to Medical conditions or safety concerns Transfers (B, C, W/C) (FIM): 5 Sit to/from Stand: 5 Sit to Stand (QC): 4 Patient performed sit to stand transfer with SBA from the PT. Weight Bearing Right Lower Extremity: Right Weight Bearing/Tolerated Left Lower Extremity: Left Weight Bearing/Tolerated Gait Training Does the Patient Walk?: Yes Gait (FIM): 5 Distance (FIM): 3=150 ft Distance: 180' Walk 50 ft with 2 Turns(QC): 4 Walk 150 ft (QC): 4 Gait Level of Assist: 5 Gait Persons Needed: 1 Gait Assistive Device: FWW Patient demonstrates a slow step through gait pattern with FWW. Gait pattern is safe for patient's age. Exercises Seated Therapy Exercises: Ankle pumps (bilateral), Long arc quads (bilateral), Hip flexion (bilateral) Seated Reps: [address] Ex=Flex, Abd, Ext (flexion 1 set bilateral) Standing Reps: 20 Assessment Current Status: Good Progress Patient has show great progress in her health. She shows good tolerance for therapy and is in much better spirits. Patient is a good candidate for discharge from the hospital with instructions to continue therapeutic exercise in the home. Per Dr. Héctor, patient will dismiss on this date to home with family and home health intervention. PT Monogram Machine Operator Goals Mcc Goals PT Mcc Goals Time Frame: Jun 26, 2017 Transfers (B,C,W/C) (FIM): 6 Sit to Lying (QC): 5 Lying-Sitting on Side/Bed(QC): 5 Sit to Stand (QC): 5 Rollin (met 06/08/17) Chair/Mhe-xh-Xrcpo Xfer(QC): 5 Does the Patient Walk: Yes Gait (FIM): 6 Gait distance (FIM): 3=150 ft Distance: 200' Walk 50ft with 2 Turns (QC): 5 Walk 150 ft (QC): 5 Gait Level of Assist: 6 Gait Assistive Device: FWW PT Plan Problem List Problem List: Activity Tolerance, Functional Strength, Balance, Gait Treatment/Plan Treatment Plan: Continue Plan of Care, Discontinue PT Treatment Plan: Bed Mobility, Education, Functional Activity Tushar, Functional Strength, Gait, Safety, Therapeutic Exercise, Transfers Treatment Duration: Jun 26, 2017 Frequency: 6 times per week Estimated Hrs Per Day: .25 hour per day Patient and/or Family Agrees t: Yes Discharge Recommendations Therapy D/C Recommendations: Home w/ Family Support Equpiment Recommendations-D/C: Front Wheeled Walker Time/GCodes Time In: 846 Time Out: 903 Total Billed Treatment Time: 17 Total Billed Treatment 1 visit FA 17 min MARIYA MAE PT Jun 08, 2017 09:21
--- NOTE | 2017-06-08 09:35 | Discharge Summary ---
Diagnosis/Chief Complaint Date of Admission May 19, 2017 at 09:18 Date of Discharge Discharge Summary Discharge Physical Examination Allergies: Coded Allergies: meperidine (Verified Allergy, Unknown, 07/28/14) pentazocine (Verified Allergy, Unknown, 07/28/14) codeine (Verified Adverse Reaction, Mild, NAUSEA, 07/28/14) morphine (Verified Adverse Reaction, Mild, NAUSEA, 07/28/14) Vitals & I&Os Vital Signs Date Time Temp Pulse Resp B/P (MAP) Pulse Ox O2 Delivery O2 Flow Rate FiO2 06/08/17 09:00 97.7 84 20 141/68 93 Nasal Cannula 1.00 06/03/17 08:14 24 Hospital Course Pending Labs Laboratory Tests 06/08/17 05:40: White Blood Count 9.2, Red Blood Count 3.25, Hemoglobin 9.1, Hematocrit 30, Mean Corpuscular Volume 92, Mean Corpuscular Hemoglobin 28, Mean Corpuscular Hemoglobin Concent 30, Red Cell Distribution Width 17.1, Platelet Count 156, Mean Platelet Volume 9.4, Sodium Level 142, Potassium Level 3.2, Chloride Level 102, Carbon Dioxide Level 35, Anion Gap 5, Blood Urea Nitrogen 7, Creatinine 0.66, Estimat Glomerular Filtration Rate > 60, BUN/Creatinine Ratio 11, Glucose Level 73, Calcium Level 7.5, Total Bilirubin 0.4, Direct Bilirubin 0.2, Indirect Bilirubin 0.2, Aspartate Amino Transf (AST/SGOT) 55, Alanine Aminotransferase (ALT/SGPT) 79, Alkaline Phosphatase 499, Total Protein 4.7, Albumin 2.1 06/08/17 09:25: Prothrombin Time [Pending], INR Comment [Pending] Discharge Instructions to patient/family Please see electronic discharge instructions given to patient. Discharge Medications Reviewed and agree with Discharge Medication list on patient's Discharge Instruction sheet MALLORIE CONTRERAS MD Jun 08, 2017 09:35
[2017-06-08] MEDS ORDERED: POTA20TA8 PO (09:41)
[2017-06-08] MEDS ORDERED: WARF3TAB PO (09:41)
[2017-06-08] MEDS ORDERED: SUCR1TAB PO (09:41)
[2017-06-08] MEDS ORDERED: CYPR4TAB PO (09:41)
[2017-06-08] MEDS ORDERED: ENOX40DI8 SC (09:41)
[2017-06-08] MEDS ORDERED: PANT40TA3 PO (09:41)
[2017-06-08] MEDS ORDERED: FURO40TA4 PO (09:41)
--- NOTE | 2017-06-08 09:44 | D/C HH Face to Face Order ---
D/C Face to Face Orders Instructions for Patient Patient Instructions/FollowUp: follow up [facility] 1 week cbc, cmp, pt/inr in 3 days from discharge Physician to follow Patient: fredy Discharge Diet for Home: Regular Diet Patient Data-Allergies,Ht & Wt Patient Allergies: Coded Allergies: meperidine (Verified Allergy, Unknown, 07/28/14) pentazocine (Verified Allergy, Unknown, 07/28/14) codeine (Verified Adverse Reaction, Mild, NAUSEA, 07/28/14) morphine (Verified Adverse Reaction, Mild, NAUSEA, 07/28/14) Height (Feet): 5 Height (Inches): 5.00 Weight (Pounds): 184 Weight (Ounces): 2.0 Home Health Need/Face to Face Date of Face to Face: Jun 08, 2017 Clinical Findings: Generalized weakness and fatigue, Muscle weakness, Shortness of breath, Unsteady gait I have seen Pt [id number]: Yes Discharged To: Home Diagnosis/Conditions: weakness chronic anticoagulation hypertension tachycardia Problems/Diagnosis/Condition: Patient is Homebound due to: Muscle weakness, Shortness of breath/distress Homebound Status Due to the above stated illness, injury or surgical procedure (medical condition or diagnosis) and associated clinical findings, the patient is homebound because of his/her inability to leave home except with aid of a supportive device and/or person AND leaving the home requires a considerable and taxing effort or is medically contraindicated. Pt req the following assistanc: Aid of another person, Walker Home Health Nursing Orders Home Health Services Order: Nursing Services, Physical Therapy-Evaluate & Treat home safety eval draw cbc, cmp, pt/inr in 3 days from discharge Home Health Infusion Therapy Line Start Date: May 28, 2017 Line Start Time: 1100 Line Type: PICC Site Location: Arm-Upper Therapy Orders Therapy Orders: Physical Therapy Certify Stmt I certify that this patient is under my care and that I, a nurse practitioner or a physician; a assistant food service director working with me, had a face to face encounter that - meets the physician face to face encounter requirements with this patient as dated. MALLORIE CONTRERAS MD Jun 08, 2017 09:44
[2017-06-08 09:48] LABS: INR 1.6 (0.8-1.4); PROTHROMBIN TIME PATIENT 18.8 SEC (12.2-14.7)
--- NOTE | 2017-06-08 13:07 | Therapy Team Discharge Summary ---
Therapy Discharge Summary Discharge Recommendations Date of Discharge Therapy D/C Recommendations: Home w/ Family Support, Physical Therapy Home Care Physical Therapy Patient has received skilled PT for several weeks while in the hospital and has progressed with gross motor skills. Upon dismissal, patient is SBA with transfers, bed mobility and ambulation x 180' with FWW. Goals have been address , however, patient is currently at a SBA LOF with gross motor skills vs. modified independent. PT to follow upon return to home with family and 09/03 supervision. Occupational Therapy Decreased Activ Tolerance, Decreased UE Strength, Dependent Transfers, Impaired I ADL's, Impaired Self-Care Skills, Restricted Funct UE ROM PT Music Theory Teacher Goals Music Theory Teacher Goals PT Mcfp Goals Time Frame: Jun 26, 2017 Transfers (B,C,W/C) (FIM): 6 Sit to Lying (QC): 5 Lying-Sitting on Side/Bed(QC): 5 Sit to Stand (QC): 5 Rollin (met 06/08/17) Chair/Neb-qs-Ctisc Xfer(QC): 5 Does the Patient Walk: Yes Gait (FIM): 6 Gait distance (FIM): 3=150 ft Distance: 200' Walk 50ft with 2 Turns (QC): 5 Walk 150 ft (QC): 5 Gait Level of Assist: 6 Gait Assistive Device: FWW OT Mcfp Goals Mcfp Goals Time Frame: Jun 26, 2017 Eating (FIM): 6 Eating (QC): 6 Groomin Oral Hygiene (QC): 6 Bathing(FIM): 5 Upper Body Dressing(FIM): 5 Lower Body Dressing(FIM): 5 Toileting(FIM): 6 Toileting Hygiene (QC): 6 Toilet/Commode Transfer(FIM): 6 Toilet/Commode Transfer (QC): 6 Additional Goals: 2-Verbalize Understanding, 3-ImproveStrength/Tushar 1=Demonstrate adherence to instructed precautions during ADL tasks. 2=Patient will verbalize/demonstrate understanding of assistive devices/ modifications for ADL. 3=Patient will improve strength/tolerance for activity to enable patient to perform ADL's. MARIYA MAE PT Jun 08, 2017 13:07
[2017-06-08] MEDS: warFARin 3 MG (COUMADIN) TAB PO SCH (17:11)
--- NOTE | 2017-06-09 11:57 | Therapy Team Discharge Summary ---
Therapy Discharge Summary Discharge Recommendations Date of Discharge Jun 08, 2017 at 21:03 Therapy D/C Recommendations: Home w/ Family Support, Physical Therapy Home Care Occupational Therapy Pt admitted to [facility] status following acute hospitalization for UTI/back pain. Skilled OT intervention focused on ADL training, transfers, and strengthening. Pt progress was limited by fatigue and medical status. Goals were addressed, but were not met. Pt discharged with family support. D/c SWB OT at this time. Decreased Activ Tolerance, Decreased UE Strength, Dependent Transfers, Impaired I ADL's, Impaired Self-Care Skills, Restricted Funct UE ROM PT Shelter Goals Shelter Goals PT Shelter Goals Time Frame: Jun 26, 2017 Transfers (B,C,W/C) (FIM): 6 Sit to Lying (QC): 5 Lying-Sitting on Side/Bed(QC): 5 Sit to Stand (QC): 5 Rollin (met 06/08/17) Chair/Lxh-ob-Pvpwa Xfer(QC): 5 Does the Patient Walk: Yes Gait (FIM): 6 Gait distance (FIM): 3=150 ft Distance: 200' Walk 50ft with 2 Turns (QC): 5 Walk 150 ft (QC): 5 Gait Level of Assist: 6 Gait Assistive Device: FWW OT Featheredge Machine Operator Goals Featheredge Machine Operator Goals Time Frame: Jun 26, 2017 Eating (FIM): 6 Eating (QC): 6 Groomin Oral Hygiene (QC): 6 Bathing(FIM): 5 Upper Body Dressing(FIM): 5 Lower Body Dressing(FIM): 5 Toileting(FIM): 6 Toileting Hygiene (QC): 6 Toilet/Commode Transfer(FIM): 6 Toilet/Commode Transfer (QC): 6 Additional Goals: 2-Verbalize Understanding, 3-ImproveStrength/Tushar 1=Demonstrate adherence to instructed precautions during ADL tasks. 2=Patient will verbalize/demonstrate understanding of assistive devices/ modifications for ADL. 3=Patient will improve strength/tolerance for activity to enable patient to perform ADL's. JULIA HUNTLEY OT Jun 09, 2017 11:57
== END 2017-06-08 21:03 | disposition home health service (06) | DRG 689 ==
LOC: 4TH 09:18
PROVIDERS: ADMIT Family Medicine; ATTEND Family Medicine
PROC: 0DB98ZX Excision of Duodenum, Via Natural or Artificial Opening Endoscopic, Diagnostic (ICD-10-PCS; 2017-05-29)
PROC: 0DB78ZX Excision of Stomach, Pylorus, Via Natural or Artificial Opening Endoscopic, Diagnostic (ICD-10-PCS; principal; 2017-05-29 13:00)
DX: N39.0 Urinary tract infection, site not specified (principal); J90 Pleural effusion, not elsewhere classified; J18.9 Pneumonia, unspecified organism; R40.20 Unspecified coma; K25.4 Chronic or unspecified gastric ulcer with hemorrhage; E46 Unspecified protein-calorie malnutrition; K83.1 Obstruction of bile duct; R53.1 Weakness; R79.1 Abnormal coagulation profile; R11.0 Nausea; I10 Essential (primary) hypertension; F03.90 Unspecified dementia, unspecified severity, without behavioral disturbance, psychotic disturbance, mood disturbance, and anxiety; M54.9 Dorsalgia, unspecified; D50.9 Iron deficiency anemia, unspecified; E83.42 Hypomagnesemia; E87.6 Hypokalemia; E83.51 Hypocalcemia; K29.80 Duodenitis without bleeding; K29.70 Gastritis, unspecified, without bleeding; K44.9 Diaphragmatic hernia without obstruction or gangrene; R74.0 Nonspecific elevation of levels of transaminase and lactic acid dehydrogenase [LDH]; E89.0 Postprocedural hypothyroidism; Z91.81 History of falling; Z95.2 Presence of prosthetic heart valve; Z79.01 Long term (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 of anticoagulants; T50.2X5A Adverse effect of carbonic-anhydrase inhibitors, benzothiadiazides and other diuretics, initial encounter
CPT/HCPCS: 36415; 36569; 71010; 71020; 76937; 80048; 80053; 80076; 80202; 81000; 82274; 82607; 82652; 82728; 83540; 83735; 84100; 84134; 84478; 85014; 85018; 85025; 85027; 85610; 86618; 86666; 86668; 86757; 86850; 86900; 86901; 86920; 87040; 87088; 87324; 87449; 87804; 93306; 94640; 94664; 94760

== ENCOUNTER → 2017-10-12 | Outpatient (CLI) | payer MEDICARE ==
[~2017-10-12] MED LIST changes: +CYPR4TAB PO; +ENOX40DI8 SC; +FURO40TA4 PO; -METO-274 PO; +METO-395 PO; +PANT40TA3 PO; -PANTOPRAZOLE 40 MG/10 ML (PROTONIX) VIAL IV NR; +POTA20TA8 PO; +SUCR1TAB PO; -SUCRALFATE 1 GM (CARAFATE) TAB PO NR; +WARF3TAB PO
--- NOTE | 2017-10-12 19:01 | Diagnostic Imaging Report ---
INDICATION: Cough and dyspnea. PA and lateral chest obtained at 2:53 p.m. and compared to 06/01/17. FINDINGS: There is post sternotomy change. The heart is top limits normal in size. There are COPD changes with hyperinflation. There are chronic appearing increased interstitial markings. There is some linear scarring or atelectasis in the right upper lobe. There is improved aeration of the right lung base compared to the prior study. There is no overt consolidation or pneumothorax or pleural fluid. IMPRESSION: COPD changes with some parenchymal scarring persisting in the right upper lobe. Improved aeration of the right lung base compared to the prior study. There is no overt consolidation or pneumothorax or pleural fluid. Dictated by: Dictated on workstation # [id number]
== END ==
LOC: RAD 14:22
PROVIDERS: ATTEND Nurse Practitioner Family
DX: J44.9 Chronic obstructive pulmonary disease, unspecified (principal)
CPT/HCPCS: 71046

== ENCOUNTER → 2017-11-03 | Outpatient (RCR) | payer MEDICARE ==
[2017-08-05 12:04] LABS: INR 1.7 (0.8-1.4); PROTHROMBIN TIME PATIENT 19.8 SEC (12.2-14.7)
[2017-08-12 10:02] LABS: INR 2.1 (0.8-1.4); PROTHROMBIN TIME PATIENT 23.5 SEC (12.2-14.7)
[2017-08-25 09:24] LABS: INR 3.8 (0.8-1.4); PROTHROMBIN TIME PATIENT 37.2 SEC (12.2-14.7)
[2017-09-08 09:31] LABS: INR 1.9 (0.8-1.4); PROTHROMBIN TIME PATIENT 22.1 SEC (12.2-14.7)
[2017-09-21 12:17] LABS: INR 2.4 (0.8-1.4)
[2017-10-06 11:59] LABS: INR 2.7 (0.8-1.4); PROTHROMBIN TIME PATIENT 28.9 SEC (12.2-14.7)
[2017-10-15 12:26] LABS: PROTHROMBIN TIME PATIENT 71.7 SEC (12.2-14.7)
[2017-10-15 12:27] LABS: INR 8.9 (0.8-1.4)
[2017-10-19 11:52] LABS: PROTHROMBIN TIME PATIENT 22.3 SEC (12.2-14.7)
[2017-10-27 09:14] LABS: BASOPHILS # (AUTO) 0.1 10^3/uL (0.0-0.1); BASOPHILS % (AUTO) 1 % (0-10); EOSINOPHILS # (AUTO) 0.1 10^3/uL (0.0-0.3); EOSINOPHILS % (AUTO) 1 % (0-10); HEMATOCRIT 38 % (35-52); HEMOGLOBIN 12.1 G/DL (11.5-16.0); LYMPHOCYTES # (AUTO) 1.1 X 10^3 (1.0-4.0); LYMPHOCYTES % (AUTO) 10 % (12-44); MEAN CORPUSCULAR HEMOGLOBIN 30 PG (25-34); MEAN CORPUSCULAR HGB CONC 32 G/DL (32-36); MEAN CORPUSCULAR VOLUME 94 FL (80-99); MEAN PLATELET VOLUME 10.2 FL (7.4-10.4); MONOCYTES # (AUTO) 0.8 X 10^3 (0.0-1.0); MONOCYTES % (AUTO) 8 % (0-12); NEUTROPHILS # (AUTO) 8.9 X 10^3 (1.8-7.8); NEUTROPHILS % (AUTO) 81 % (42-75); PLATELET COUNT 177 10^3/uL (130-400); RED BLOOD COUNT 4.07 10^6/uL (4.35-5.85); RED CELL DISTRIBUTION WIDTH 13.5 % (10.0-14.5)
[2017-10-27 09:27] LABS: INR 4.9 (0.8-1.4)
[2017-10-27 09:37] LABS: ALANINE AMINOTRANSFERASE 19 U/L (0-55); ALBUMIN 3.8 GM/DL (3.2-4.5); ALKALINE PHOSPHATASE 118 U/L (40-136); BILIRUBIN,TOTAL 0.4 MG/DL (0.1-1.0); BUN/CREATININE RATIO 17; CARBON DIOXIDE 30 MMOL/L (21-32); CHLORIDE 103 MMOL/L (98-107); CREATININE SERUM 0.77 MG/DL (0.60-1.30); GFR ESTIMATED > 60; GLUCOSE 106 MG/DL (70-105); POTASSIUM 4.2 MMOL/L (3.6-5.0); SODIUM 139 MMOL/L (135-145); TOTAL PROTEIN 6.8 GM/DL (6.4-8.2)
[2017-10-27 09:39] LABS: PROTHROMBIN TIME PATIENT 45.3 SEC (12.2-14.7)
[2017-11-03 09:36] LABS: INR 1.7 (0.8-1.4); PROTHROMBIN TIME PATIENT 20.1 SEC (12.2-14.7)
== END | disposition home or self-care (01) ==
LOC: ONC 08-05 11:37
PROVIDERS: ATTEND Internal Medicine Hematology & Oncology
DX: I11.0 Hypertensive heart disease with heart failure (principal); I50.9 Heart failure, unspecified; M54.5 Low back pain; Z79.01 Long term (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 of anticoagulants
CPT/HCPCS: 36415; 80053; 85025; 85610; 99213

== ENCOUNTER → 2017-11-23 | Outpatient (CLI) | payer MEDICARE ==
--- NOTE | 2017-11-23 17:44 | Diagnostic Imaging Report ---
INDICATION: Left breast carcinoma status post mastectomy. Correlation is made with prior mammogram from 11/20/2016 and 11/19/2015. The current study was also evaluated with a Computer Aided Detection (CAD) system. FINDINGS: Extensive vascular calcifications in the right breast are identified. There is mild parenchymal density noted. No discrete mass or malignant-appearing microcalcifications are seen. The right axilla is unremarkable. IMPRESSION: No mammographic features suspicious for malignancy are identified. ACR BI-RADS Category 2: Benign findings. Result letter will be mailed to the patient. Note: At least 10% of breast cancer is not imaged by mammography. Dictated by: Dictated on workstation # [id number]
== END ==
LOC: RAD 14:39
PROVIDERS: ATTEND Nurse Practitioner Adult Health
DX: Z85.3 Personal history of malignant neoplasm of breast (principal); Z90.12 Acquired absence of left breast and nipple

== ENCOUNTER → 2017-12-29 | Outpatient (CLI) | payer MEDICARE ==
[2017-12-29 10:14] LABS: FREE T4 (FREE THYROXINE) 0.98 NG/DL (0.70-1.48)
== END ==
LOC: LAB 09:19
PROVIDERS: ATTEND Family Medicine
DX: E03.9 Hypothyroidism, unspecified (principal)
CPT/HCPCS: 36415; 84439; 84443

== ENCOUNTER → 2018-03-23 | Outpatient (CLI) | payer MEDICARE ==
[~2018-03-23] MED LIST changes: -CYPR4TAB PO; +CYPR4TAB41 PO
[2018-03-23 09:58] LABS: BASOPHILS % (AUTO) 0 % (0-10); EOSINOPHILS # (AUTO) 0.3 10^3/uL (0.0-0.3); EOSINOPHILS % (AUTO) 2 % (0-10); HEMATOCRIT 43 % (35-52); HEMOGLOBIN 13.4 G/DL (11.5-16.0); LYMPHOCYTES # (AUTO) 1.2 X 10^3 (1.0-4.0); LYMPHOCYTES % (AUTO) 9 % (12-44); MEAN CORPUSCULAR HEMOGLOBIN 30 PG (25-34); MEAN CORPUSCULAR HGB CONC 32 G/DL (32-36); MEAN CORPUSCULAR VOLUME 94 FL (80-99); MEAN PLATELET VOLUME 9.3 FL (7.4-10.4); MONOCYTES # (AUTO) 1.1 X 10^3 (0.0-1.0); MONOCYTES % (AUTO) 9 % (0-12); NEUTROPHILS # (AUTO) 9.8 X 10^3 (1.8-7.8); NEUTROPHILS % (AUTO) 80 % (42-75); PLATELET COUNT 215 10^3/uL (130-400); RED BLOOD COUNT 4.55 10^6/uL (4.35-5.85); RED CELL DISTRIBUTION WIDTH 14.2 % (10.0-14.5); WHITE BLOOD COUNT 12.2 10^3/uL (4.3-11.0)
[2018-03-23 10:22] LABS: ALANINE AMINOTRANSFERASE 34 U/L (0-55); ALBUMIN 4.2 GM/DL (3.2-4.5); ALKALINE PHOSPHATASE 137 U/L (40-136); BILIRUBIN,TOTAL 0.5 MG/DL (0.1-1.0); BUN/CREATININE RATIO 27; CALCIUM 9.3 MG/DL (8.5-10.1); CARBON DIOXIDE 30 MMOL/L (21-32); CHLORIDE 103 MMOL/L (98-107); CHOLESTEROL 221 MG/DL (< 200); CREATININE SERUM 0.81 MG/DL (0.60-1.30); GFR ESTIMATED > 60; GLUCOSE 86 MG/DL (70-105); HDL CHOLESTEROL 56 MG/DL (40-60); POTASSIUM 4.2 MMOL/L (3.6-5.0); SODIUM 140 MMOL/L (135-145); TRIGLYCERIDES 74 MG/DL (<150); VLDL CHOLESTEROL 15 MG/DL (5-40)
[2018-03-23 10:44] LABS: FREE T4 (FREE THYROXINE) 1.25 NG/DL (0.70-1.48)
== END ==
LOC: LAB 09:35
PROVIDERS: ATTEND Family Medicine
DX: I10 Essential (primary) hypertension (principal); E03.9 Hypothyroidism, unspecified
CPT/HCPCS: 36415; 80053; 80061; 84439; 84443; 85025

== ENCOUNTER → 2018-04-22 | Outpatient (CLI) | payer MEDICARE ==
[~2018-04-22] MED LIST changes: -LOSA25TA21 PO; +LOSA25TA6 PO
--- NOTE | 2018-04-22 11:36 | Diagnostic Imaging Report ---
INDICATION: Postmenopausal. COMPARISON is made with prior DEXA scan from 05/03/2015. TECHNIQUE: Bone mineral analysis of the lumbar spine and bilateral hips was performed. FINDINGS: The bone mineral density lumbar spine L2-L4 is 1.079 with T score -1.0. This compares with 1.079 and -1.0 on prior. Bone mineral density of the left femoral neck is 0.877 with T score -1.2. This compares with 0.810 and -1.6. Bone mineral density right femoral neck is 0.868 with T score -1.2. This compares with 0.871 and -1.2. 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 Dictated by: Dictated on workstation # [id number]
== END ==
LOC: RAD 08:40
PROVIDERS: ATTEND Nurse Practitioner Adult Health
DX: M85.89 Other specified disorders of bone density and structure, multiple sites (principal); Z13.820 Encounter for screening for osteoporosis; Z78.0 Asymptomatic menopausal state
CPT/HCPCS: 77080

== ENCOUNTER 2018-05-11 08:52 | Outpatient (RCR) | payer MEDICARE ==
[2018-02-16 09:36] LABS: INR 2.1 (0.8-1.4); PROTHROMBIN TIME PATIENT 23.2 SEC (12.2-14.7)
[2018-03-02 09:22] LABS: INR 2.3 (0.8-1.4); PROTHROMBIN TIME PATIENT 25.5 SEC (12.2-14.7)
[2018-03-23 10:12] LABS: INR 2.9 (0.8-1.4); PROTHROMBIN TIME PATIENT 30.1 SEC (12.2-14.7)
[2018-03-30 10:56] LABS: INR 3.5 (0.8-1.4); PROTHROMBIN TIME PATIENT 35.6 SEC (12.2-14.7)
[2018-04-06 09:34] LABS: INR 3.1 (0.8-1.4); PROTHROMBIN TIME PATIENT 32.1 SEC (12.2-14.7)
[2018-04-20 09:08] LABS: BASOPHILS % (AUTO) 1 % (0-10); EOSINOPHILS # (AUTO) 0.2 10^3/uL (0.0-0.3); EOSINOPHILS % (AUTO) 3 % (0-10); HEMATOCRIT 38 % (35-52); HEMOGLOBIN 11.9 G/DL (11.5-16.0); LYMPHOCYTES # (AUTO) 1.1 X 10^3 (1.0-4.0); LYMPHOCYTES % (AUTO) 14 % (12-44); MEAN CORPUSCULAR HEMOGLOBIN 29 PG (25-34); MEAN CORPUSCULAR HGB CONC 31 G/DL (32-36); MEAN CORPUSCULAR VOLUME 94 FL (80-99); MONOCYTES # (AUTO) 0.7 X 10^3 (0.0-1.0); MONOCYTES % (AUTO) 8 % (0-12); NEUTROPHILS % (AUTO) 75 % (42-75); PLATELET COUNT 151 10^3/uL (130-400); RED BLOOD COUNT 4.06 10^6/uL (4.35-5.85); RED CELL DISTRIBUTION WIDTH 14.8 % (10.0-14.5)
[2018-04-20 09:20] LABS: INR 2.3 (0.8-1.4); PROTHROMBIN TIME PATIENT 25.6 SEC (12.2-14.7)
[2018-04-20 09:27] LABS: ALANINE AMINOTRANSFERASE 32 U/L (0-55); ALBUMIN 3.8 GM/DL (3.2-4.5); ALKALINE PHOSPHATASE 148 U/L (40-136); BILIRUBIN,TOTAL 0.6 MG/DL (0.1-1.0); BUN/CREATININE RATIO 18; CALCIUM 8.8 MG/DL (8.5-10.1); CARBON DIOXIDE 27 MMOL/L (21-32); CHLORIDE 104 MMOL/L (98-107); CREATININE SERUM 0.73 MG/DL (0.60-1.30); GFR ESTIMATED > 60; GLUCOSE 98 MG/DL (70-105); POTASSIUM 3.7 MMOL/L (3.6-5.0); SODIUM 139 MMOL/L (135-145); TOTAL PROTEIN 6.3 GM/DL (6.4-8.2)
[2018-05-11 09:19] LABS: INR 4.4 (0.8-1.4); PROTHROMBIN TIME PATIENT 42.7 SEC (12.2-14.7)
== END 2018-05-17 | disposition home or self-care (01) ==
LOC: ONC 08:52
PROVIDERS: ATTEND Internal Medicine Hematology & Oncology
DX: Z08 Encounter for follow-up examination after completed treatment for malignant neoplasm (principal); Z85.3 Personal history of malignant neoplasm of breast; M85.80 Other specified disorders of bone density and structure, unspecified site; Z86.718 Personal history of other venous thrombosis and embolism; Z79.01 Long term (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 of anticoagulants; Z95.2 Presence of prosthetic heart valve; Z92.21 Personal history of antineoplastic chemotherapy; Z92.3 Personal history of irradiation
CPT/HCPCS: 36415; 80053; 85025; 85610; 99213

== ENCOUNTER → 2018-07-06 | Outpatient (CLI) | payer MEDICARE ==
[2018-07-06 09:11] LABS: HEMOGLOBIN 12.2 G/DL (11.5-16.0); MEAN PLATELET VOLUME 9.6 FL (7.4-10.4); RED BLOOD COUNT 4.18 10^6/uL (4.35-5.85); RED CELL DISTRIBUTION WIDTH 13.2 % (10.0-14.5); WHITE BLOOD COUNT 3.9 10^3/uL (4.3-11.0)
[2018-07-06 09:27] LABS: ALANINE AMINOTRANSFERASE 18 U/L (0-55); ALBUMIN 4.1 GM/DL (3.2-4.5); ALKALINE PHOSPHATASE 110 U/L (40-136); BILIRUBIN,TOTAL 0.6 MG/DL (0.1-1.0); BUN/CREATININE RATIO 12; CALCIUM 9.2 MG/DL (8.5-10.1); CARBON DIOXIDE 28 MMOL/L (21-32); CHLORIDE 106 MMOL/L (98-107); CHOLESTEROL 200 MG/DL (< 200); CREATININE SERUM 0.67 MG/DL (0.60-1.30); GFR ESTIMATED > 60; GLUCOSE 96 MG/DL (70-105); HDL CHOLESTEROL 46 MG/DL (40-60); POTASSIUM 3.8 MMOL/L (3.6-5.0); SODIUM 142 MMOL/L (135-145); TOTAL PROTEIN 6.6 GM/DL (6.4-8.2); TRIGLYCERIDES 87 MG/DL (<150); VLDL CHOLESTEROL 17 MG/DL (5-40)
== END ==
LOC: LAB 08:51
PROVIDERS: ATTEND Internal Medicine Cardiovascular Disease
DX: I25.10 Atherosclerotic heart disease of native coronary artery without angina pectoris (principal); I77.9 Disorder of arteries and arterioles, unspecified; Z95.2 Presence of prosthetic heart valve
CPT/HCPCS: 80053; 80061; 83880; 84443

== ENCOUNTER → 2018-07-06 | Outpatient (CLI) | payer MEDICARE ==
[2018-07-06 09:14] LABS: BASOPHILS % (AUTO) 1 % (0-10); EOSINOPHILS # (AUTO) 0.1 10^3/uL (0.0-0.3); EOSINOPHILS % (AUTO) 4 % (0-10); HEMATOCRIT 39 % (35-52); LYMPHOCYTES # (AUTO) 0.8 X 10^3 (1.0-4.0); LYMPHOCYTES % (AUTO) 20 % (12-44); MEAN CORPUSCULAR HEMOGLOBIN 29 PG (25-34); MEAN CORPUSCULAR HGB CONC 31 G/DL (32-36); MEAN PLATELET VOLUME 9.6 FL (7.4-10.4); MONOCYTES # (AUTO) 0.4 X 10^3 (0.0-1.0); MONOCYTES % (AUTO) 10 % (0-12); NEUTROPHILS # (AUTO) 2.6 X 10^3 (1.8-7.8); NEUTROPHILS % (AUTO) 67 % (42-75); RED BLOOD COUNT 4.18 10^6/uL (4.35-5.85)
[2018-07-06 09:15] LABS: HEMOGLOBIN 12.2 G/DL (11.5-16.0); MEAN CORPUSCULAR VOLUME 94 FL (80-99); PLATELET COUNT 164 10^3/uL (130-400); RED CELL DISTRIBUTION WIDTH 13.2 % (10.0-14.5); WHITE BLOOD COUNT 3.9 10^3/uL (4.3-11.0)
[2018-07-06 09:57] LABS: BILIRUBIN,TOTAL 0.6 MG/DL (0.1-1.0); BUN/CREATININE RATIO 12; CALCIUM 9.2 MG/DL (8.5-10.1); CARBON DIOXIDE 28 MMOL/L (21-32); CHLORIDE 106 MMOL/L (98-107); CREATININE SERUM 0.67 MG/DL (0.60-1.30); GFR ESTIMATED > 60; GLUCOSE 96 MG/DL (70-105); POTASSIUM 3.8 MMOL/L (3.6-5.0); SODIUM 142 MMOL/L (135-145)
[2018-07-06 09:58] LABS: ALANINE AMINOTRANSFERASE 18 U/L (0-55); ALBUMIN 4.1 GM/DL (3.2-4.5); ALKALINE PHOSPHATASE 110 U/L (40-136); FREE T4 (FREE THYROXINE) 1.78 NG/DL (0.70-1.48); TOTAL PROTEIN 6.6 GM/DL (6.4-8.2)
== END ==
LOC: LAB 08:53
PROVIDERS: ATTEND Family Medicine
DX: I25.10 Atherosclerotic heart disease of native coronary artery without angina pectoris (principal); I77.9 Disorder of arteries and arterioles, unspecified; Z95.2 Presence of prosthetic heart valve; Z79.899 Other long term (current) drug therapy
CPT/HCPCS: 80053; 82607; 82746; 84439; 84443; 85025

== ENCOUNTER → 2018-08-03 | Outpatient (CLI) | payer MEDICARE ==
[2018-08-03 09:56] LABS: BUN/CREATININE RATIO 13; CARBON DIOXIDE 27 MMOL/L (21-32); CHLORIDE 105 MMOL/L (98-107); CREATININE SERUM 0.77 MG/DL (0.60-1.30); GFR ESTIMATED > 60; GLUCOSE 99 MG/DL (70-105); POTASSIUM 4.3 MMOL/L (3.6-5.0); SODIUM 140 MMOL/L (135-145)
== END ==
LOC: LAB 09:25
PROVIDERS: ATTEND Internal Medicine Cardiovascular Disease
DX: I25.10 Atherosclerotic heart disease of native coronary artery without angina pectoris (principal)
CPT/HCPCS: 36415; 80048

== ENCOUNTER → 2018-09-28 | Outpatient (CLI) | payer MEDICARE ==
[~2018-09-28] MED LIST changes: +ALEN70TA5 PO; +LOSA25TA41 PO; -LOSA25TA6 PO
[2018-09-28 10:38] LABS: FREE T4 (FREE THYROXINE) 1.74 NG/DL (0.70-1.48)
== END ==
LOC: LAB 09:31
PROVIDERS: ATTEND Family Medicine
DX: E03.9 Hypothyroidism, unspecified (principal); Z79.899 Other long term (current) drug therapy
CPT/HCPCS: 36415; 84439; 84443

== ENCOUNTER 2018-11-23 08:58 | Outpatient (RCR) | payer MEDICARE ==
[2018-09-07 10:07] LABS: INR 1.8 (0.8-1.4); PROTHROMBIN TIME PATIENT 20.5 SEC (12.2-14.7)
[2018-09-28 10:31] LABS: INR 1.6 (0.8-1.4); PROTHROMBIN TIME PATIENT 19.1 SEC (12.2-14.7)
[2018-10-05 09:19] LABS: INR 2.5 (0.8-1.4); PROTHROMBIN TIME PATIENT 27.3 SEC (12.2-14.7)
[2018-10-12 09:35] LABS: INR 3.5 (0.8-1.4); PROTHROMBIN TIME PATIENT 35.7 SEC (12.2-14.7)
[2018-10-19 08:55] LABS: BASOPHILS % (AUTO) 1 % (0-10); EOSINOPHILS # (AUTO) 0.2 10^3/uL (0.0-0.3); EOSINOPHILS % (AUTO) 4 % (0-10); HEMATOCRIT 38 % (35-52); HEMOGLOBIN 11.9 G/DL (11.5-16.0); LYMPHOCYTES # (AUTO) 1.1 X 10^3 (1.0-4.0); LYMPHOCYTES % (AUTO) 18 % (12-44); MEAN CORPUSCULAR HEMOGLOBIN 29 PG (25-34); MEAN CORPUSCULAR HGB CONC 31 G/DL (32-36); MEAN CORPUSCULAR VOLUME 92 FL (80-99); MEAN PLATELET VOLUME 9.5 FL (7.4-10.4); MONOCYTES # (AUTO) 0.5 X 10^3 (0.0-1.0); MONOCYTES % (AUTO) 8 % (0-12); NEUTROPHILS # (AUTO) 4.3 X 10^3 (1.8-7.8); NEUTROPHILS % (AUTO) 70 % (42-75); PLATELET COUNT 201 10^3/uL (130-400); RED CELL DISTRIBUTION WIDTH 14.3 % (10.0-14.5); WHITE BLOOD COUNT 6.2 10^3/uL (4.3-11.0)
[2018-10-19 09:07] LABS: INR 2.6 (0.8-1.4); PROTHROMBIN TIME PATIENT 28.2 SEC (12.2-14.7)
[2018-10-19 09:13] LABS: ALANINE AMINOTRANSFERASE 12 U/L (0-55); ALKALINE PHOSPHATASE 102 U/L (40-136); BILIRUBIN,TOTAL 0.5 MG/DL (0.1-1.0); BUN/CREATININE RATIO 19; CALCIUM 9.2 MG/DL (8.5-10.1); CARBON DIOXIDE 28 MMOL/L (21-32); CHLORIDE 104 MMOL/L (98-107); CREATININE SERUM 0.75 MG/DL (0.60-1.30); GFR ESTIMATED > 60; GLUCOSE 92 MG/DL (70-105); SODIUM 142 MMOL/L (135-145); TOTAL PROTEIN 6.7 GM/DL (6.4-8.2)
[2018-11-02 09:23] LABS: PROTHROMBIN TIME PATIENT 31.6 SEC (12.2-14.7)
[2018-11-09 09:23] LABS: INR 2.4 (0.8-1.4); PROTHROMBIN TIME PATIENT 27.3 SEC (12.2-14.7)
[2018-11-23 09:25] LABS: INR 2.2 (0.8-1.4); PROTHROMBIN TIME PATIENT 25.7 SEC (12.2-14.7)
== END 2018-12-06 | disposition home or self-care (01) ==
LOC: ONC 08:58
PROVIDERS: ATTEND Internal Medicine Hematology & Oncology
DX: Z08 Encounter for follow-up examination after completed treatment for malignant neoplasm (principal); Z85.3 Personal history of malignant neoplasm of breast; M85.80 Other specified disorders of bone density and structure, unspecified site; Z86.718 Personal history of other venous thrombosis and embolism; Z79.01 Long term (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 of anticoagulants; Z95.2 Presence of prosthetic heart valve; Z92.21 Personal history of antineoplastic chemotherapy; Z92.3 Personal history of irradiation; Z90.12 Acquired absence of left breast and nipple
CPT/HCPCS: 36415; 80053; 85025; 85610; 99213

== ENCOUNTER → 2018-11-24 | Outpatient (CLI) | payer MEDICARE ==
--- NOTE | 2018-11-24 19:24 | Diagnostic Imaging Report ---
EXAMINATION: Digital mammogram right screening with 3D tomosynthesis. The current study was also evaluated with a Computer Aided Detection (CAD) system. This study was compared to the prior exams of 11/23/2017, 11/20/2016, and 11/19/2015. At this time, there are no current complaints. FINDINGS: The fibroglandular tissue in the right breast is heterogeneously dense. This does limit the sensitivity of this exam. Overall, there does not appear to have been any significant change. There are extensive vascular calcifications present. There is no primary or secondary sign of malignancy noted. IMPRESSION: There is no evidence for malignancy. ACR BI-RADS Category 1: Negative. Result letter will be mailed to the patient. Note: At least 10% of breast cancer is not imaged by mammography. Dictated by: Dictated on workstation # [id number]
== END ==
LOC: RAD 09:49
PROVIDERS: ATTEND Internal Medicine Hematology & Oncology
DX: Z12.31 Encounter for screening mammogram for malignant neoplasm of breast (principal); C50.112 Malignant neoplasm of central portion of left female breast

== ENCOUNTER → 2018-12-21 | Outpatient (CLI) | payer MEDICARE ==
[2018-12-21 11:01] LABS: FREE T4 (FREE THYROXINE) 1.62 NG/DL (0.70-1.48)
== END ==
LOC: LAB 09:41
PROVIDERS: ATTEND Family Medicine
DX: E03.9 Hypothyroidism, unspecified (principal); Z79.899 Other long term (current) drug therapy
CPT/HCPCS: 36415; 84439; 84443; 84484

== ENCOUNTER → 2018-12-24 | Outpatient (CLI) | payer MEDICARE ==
--- NOTE | 2018-12-24 16:22 | Diagnostic Imaging Report ---
INDICATION: Back pain. COMPARISON: None. FINDINGS: Three views of the lumbar column demonstrate diffuse osteopenia. There is no traumatic malalignment or fracture. Mild to moderate diffuse degenerative changes are present. There is an IVC filter in place. The SI joints are symmetric. IMPRESSION: Diffuse osteopenia with [id number] degenerative changes. No traumatic malalignment or fracture. Dictated by: Dictated on workstation # [id number]
--- NOTE | 2018-12-24 16:23 | Diagnostic Imaging Report ---
INDICATION: Pelvic pain. COMPARISON: None. EXAMINATION: Single view of the pelvis was obtained. FINDINGS: No fracture or dislocation. Mild degenerative joint disease is seen, bilaterally. There is no osseous lesion. IMPRESSION: Mild degenerative changes of both hips. Dictated by: Dictated on workstation # [id number]
== END ==
LOC: RAD 15:38
PROVIDERS: ATTEND Nurse Practitioner Family
DX: M16.0 Bilateral primary osteoarthritis of hip (principal); M47.816 Spondylosis without myelopathy or radiculopathy, lumbar region; M85.88 Other specified disorders of bone density and structure, other site; Z95.828 Presence of other vascular implants and grafts
CPT/HCPCS: 72100; 72170

== ENCOUNTER 2019-01-01 10:15 | Emergency (ER) | payer MEDICARE ==
[~2019-01-01] VITALS: Ht 167.6 cm; Wt 72.6 kg
--- OUTSIDE RECORDS SUMMARY | 2019-01-01 10:21 | XMS REPORT | Clinical Summary ---
Author Author [facility] Organization [facility] Address Unknown Phone Unavailable Care Team Providers Care Tennis Ball Cover Cementer Name Role Phone Remedios Lobo MD PCP Allergies Active Allergy Reactions Severity Noted Date Comments Codeine Nausea Only 02/15/2014 Pt states she gets nauseous. Meperidine Nausea And Vomiting 02/16/2014 Morphine Nausea And Vomiting 02/15/2014 Hydrocodone-Acetaminophen Nausea And Vomiting 02/23/2014 Oxycodone-Acetaminophen Nausea And Vomiting 02/23/2014 Current Medications Prescription Sig. Disp. Refills Start End Date Status Date levothyroxine (SYNTHROID, Take 100 mcg by mouth Active LEVOTHROID) 100 MCG daily. tablet oxybutynin (DITROPAN-XL) Take 10 mg by mouth Active 10 MG 24 hr tablet daily. cholecalciferol, vitamin Take 1 tablet by mouth Active D3, (VITAMIN D3) 2,000 daily. unit cap NON FORMULARY Take 650 mg by mouth 2 Active (two) times a day. APAP Antritis Pain 2 tab twice a day alendronate (FOSAMAX) 70 Take 70 mg by mouth every Active MG tablet 7 days. Take in the morning with a full glass of water, on an empty stomach, and do not take anything else by mouth or lie down for the next 30 min. aspirin 81 MG chewable Chew 81 mg daily. Active tablet diphenhydrAMINE-acetamino Take 1 tablet by mouth Active phen (TYLENOL PM EXTRA nightly as needed. STRENGTH) 25-500 mg Tab hydrochlorothiazide Take 25 mg by mouth Active (HYDRODIURIL) 25 MG daily. tablet liothyronine (CYTOMEL) 25 Take 25 mcg by mouth Active MCG tablet daily. memantine (NAMENDA) 10 MG Take 10 mg by mouth 2 Active tablet (two) times a day. metoprolol (TOPROL-XL) Take 100 mg by mouth Active 100 MG 24 hr tablet daily. therapeutic multivitamin Take 1 tablet by mouth Active (THERAGRAN) tablet daily. Active Problems Problem Noted Date Aortic stenosis 02/22/2014 Family History Medical History Relation Name Comments Lung cancer Father Coronary artery disease Mother Relation Name Status Comments Father Mother Social History Tobacco Use Types Packs/Day Years Used Date Former Smoker Alcohol Use Drinks/Week oz/Week Comments No Sex Assigned at Date Recorded Not on file Last Filed Vital Signs Vital Sign Reading Time Taken Blood Pressure 130/74 02/28/2014 10:50 AM CDT Pulse 102 02/28/2014 11:34 AM CDT Temperature 37.1 C (98.7 F) 02/28/2014 10:50 AM CDT Respiratory Rate 16 02/28/2014 7:33 AM CDT Oxygen Saturation 93% 02/28/2014 11:34 AM CDT Inhaled Oxygen - - Concentration Weight 78.2 kg (172 lb 6.4 oz) 02/28/2014 3:43 AM CDT Height 166.5 cm (5' 5.55") 02/22/2014 6:19 AM CDT Body Mass Index 28.21 02/28/2014 3:43 AM CDT Plan of Treatment Not on file Implants Implanted Type Area Airplane Pilot Commercial Device Expiration Model / Identifier Date Serial / Lot Implant Valve Aortic Trifecta 19mm Tissue N/A: Aorta [employer] 09/04/2015 TF-19A / Bovine Tf-19a - [id number] Implant HEART VALVE [id number] Implanted: Qty: 1 on 02/22/2014 by / Sheryl Kendrick MD Total Knee Implanted: Explanted: Vena Cava Filter Implanted: Explanted: Results Not on filefrom Last 3 Months
--- OUTSIDE RECORDS SUMMARY | 2019-01-01 10:28 | XMS REPORT | CCD ---
Author Author [facility] Organization [facility] Address [address] [place] [address] Phone Care Team Providers Care Fleet Administrator Name Role Phone PP Unavailable CCM Unavailable Summary Purpose Interface Exchange Insurance Providers Payer name Policy type / Coverage type Covered democrat ID Effective Begin Date Effective End Date WPS Medicare Part B Medicare Part B [id number] Unknown Unknown [facility] Medicare Part B [id number] Unknown Unknown Family history Father Diagnosis Age At Onset Cancer Unknown Arthritis Unknown Mother Diagnosis Age At Onset Breast cancer Unknown Arthritis Unknown Social History Social History Element Codes Description Effective Dates Alcohol history Unknown occasionally drinks alcohol 06/08/2018 Frequency of drinks SNOMED CT: 816927062 Drinks rarely 06/08/2018 Marital status Unknown 01/11/2015 Number of children Unknown 3 01/11/2015 Employment Unknown Retired 01/11/[address]: 7028295 Quit over 10 years ago 1950 01/11/[address]: 343035325 Never drinks alcohol 01/11/2015 Allergies, Adverse Reactions, Alerts Substance Reaction Codes Entered Date Inactivated Date Status * OTHER REACTION - SEE ANSWER BOX vancogein red Unknown 01/11/2015 No Inactive Date Active CODEINE RxNorm: 2670 01/11/2015 No Inactive Date Active demerol RxNorm: 492495 08/30/2015 No Inactive Date Active hydrocodone Unknown 01/11/2015 No Inactive Date Active MORPHINE AND RELATED Unknown 01/11/2015 No Inactive Date Active Past Medical History Illness Codes Condition Status Onset Date Resolved Date Encounter for follow-up examination after completed treatment for conditions other than malignant neoplasm ICD-9: V67.9 ICD-10: Z09 Active 12/28/2018 Unknown Left lower quadrant pain ICD-9: 789.04 ICD-10: R10.32 Active 12/24/2018 Unknown Right lower quadrant pain ICD-9: 789.03 ICD-10: R10.31 Active 12/24/2018 Unknown Diarrhea, unspecified ICD- 9: 787.91 ICD-10: R19.7 Active 07/03/2017 Unknown Dysuria ICD-9: 788.1 ICD-10: R30.0 Active 2017 Unknown Pelvic and perineal pain ICD-9: 789.09 ICD-10: R10.2 Active 12/21/2018 Unknown Chronic systolic (congestive) heart failure ICD-9: 428.22 ICD-10: I50.22 Active 10/12/2017 Unknown Essential (primary) hypertension ICD-9: 401.1 ICD-10: I10 Active 11/13/2016 Unknown Hypoxemia ICD-9: 799.02 ICD-10: R09.02 Active 11/23/2018 Unknown Other specified noninflammatory disorders of vagina ICD-9: 623.9 ICD-10: N89.8 Active 11/01/2018 Unknown Atrophy of thyroid (acquired) ICD-9: 244.8 ICD-10: E03.4 Active 01/05/2017 Unknown Other fatigue ICD-9: 780.79 ICD-10: R53.83 Active 04/02/2016 Unknown Other insomnia ICD-9: 327.09 ICD-10: G47.09 Active 06/29/2018 Unknown Encounter for general adult medical examination with abnormal findings ICD-9: V70.0 ICD-10: Z00.01 Active 06/08/2018 Unknown Localized edema ICD-9: 782.3 ICD-10: R60.0 Active 08/05/2017 Unknown 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 ICD-9: V58.61 ICD-10: Z79.01 Active 04/06/2016 Unknown Muscle weakness (generalized) ICD-9: 728.87 ICD-10: M62.81 Active 05/24/2018 Unknown Encounter for immunization ICD-9: V04.81 ICD-10: Z23 Active 07/02/2015 Unknown Lumbago with sciatica, right side ICD-9: 724.3 ICD-10: M54.41 Active 03/23/2018 Unknown Sciatica, right side ICD- 9: 724.3 ICD-10: M54.31 Active 03/23/2018 Unknown Sciatica Unknown Active 03/23/2018 Unknown Low back pain ICD-9: 724.2 ICD-10: M54.5 Active 03/03/2017 Unknown Sacroiliitis, not elsewhere classified ICD-9: 720.2 ICD-10: M46.1 Active 03/03/2017 Unknown Urge incontinence ICD-9: 788.31 ICD-10: N39.41 Active 01/10/2015 Unknown Cellulitis of face ICD- 9: 682.0 ICD-10: L03.211 Active 02/08/2018 Unknown Other allergic rhinitis ICD-9: 477.8 ICD-10: J30.89 Active 10/27/2017 Unknown Weakness ICD-9: 780.79 ICD-10: R53.1 Active 05/11/2017 Unknown Pneumonia due to other specified bacteria ICD-9: 482.81 ICD-10: J15.8 Active 10/12/2017 Unknown Nonscarring hair loss, unspecified ICD-9: 704.00 ICD-10: L65.9 Active 10/06/2017 Unknown Other fecal abnormalities ICD-9: 787.7 ICD-10: R19.5 Active 07/06/2017 Unknown Encounter for immunization ICD-9: V03.82 ICD-10: Z23 Active 06/18/2017 Unknown Presence of xenogenic heart valve ICD-9: 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 ICD-10: Z95.3 Active 06/18/2017 Unknown Other malaise ICD-9: 780.79 ICD-10: R53.81 Active 05/11/2017 Unknown Pain in right shoulder ICD-9: 719.41 ICD-10: M25.511 Active 10/06/2016 Unknown Acute recurrent maxillary sinusitis ICD-9: 461.0 ICD-10: J01.01 Active 04/27/2017 Unknown Urinary tract infection, site not specified ICD-9: 599.0 ICD-10: N39.0 Active 04/27/2017 Unknown Iron deficiency ICD-9: 280.9 ICD-10: E61.1 Active 04/08/2017 Unknown Mixed hyperlipidemia ICD- 9: 272.2 ICD-10: E78.2 Active 04/08/2017 Unknown Other specified heart block ICD-9: 426.6 ICD-10: I45.5 Active 04/08/2017 Unknown Vascular dementia without behavioral disturbance ICD-9: 290.40 ICD-10: F01.50 Active 01/05/2017 Unknown Cervicalgia ICD-9: 723.1 ICD-10: M54.2 Active 04/06/2016 Unknown Other muscle spasm ICD- 9: 728.85 ICD-10: M62.838 Active 12/19/2016 Unknown Gastro-esophageal reflux disease without esophagitis ICD-9: 530.81 ICD-10: K21.9 Active 05/20/2016 Unknown Insomnia due to medical condition ICD-9: 327.01 ICD-10: G47.01 Active 10/16/2016 Unknown Cough ICD-9: 786.2 ICD-10: R05 Active 10/06/2016 Unknown Pneumonia due to other specified bacteria ICD-9: 482.89 ICD-10: J15.8 Active 10/06/2016 Unknown Essential (primary) hypertension ICD-9: 401.9 ICD-10: I10 Active 01/10/2015 Unknown Personal history of other specified conditions ICD-9: V13.89 ICD-10: Z87.898 Active 07/01/2016 Unknown Unsteadiness on feet ICD- 9: 781.2 ICD-10: R26.81 Active 07/01/2016 Unknown Dysphagia, pharyngeal phase ICD-9: 787.23 ICD-10: R13.13 Active 05/20/2016 Unknown Acute laryngopharyngitis ICD-9: 465.0 ICD-10: J06.0 Active 04/27/2016 Unknown Allergic rhinitis due to pollen ICD-9: 477.0 ICD-10: J30.1 Active 04/27/2016 Unknown Other cystitis without hematuria ICD-9: 595.81 ICD-10: N30.80 Active 04/06/2016 Unknown Hypothyroidism, unspecified ICD-9: 244.9 ICD-10: E03.9 Active 04/02/2016 Unknown Dizziness and giddiness ICD-9: 780.4 ICD-10: R42 Active 01/30/2016 Unknown Pain in right ankle and joints of right foot ICD-9: 719.47 ICD-10: M25.571 Active 01/30/2016 Unknown Tinnitus, bilateral ICD- 9: 388.30 ICD-10: H93.13 Active 01/30/2016 Unknown Otalgia, right ear ICD- 9: 388.70 ICD-10: H92.01 Active 11/28/2015 Unknown Unspecified dementia without behavioral disturbance ICD-9: 294.20 ICD-10: F03.90 Active 09/30/2015 Unknown Hyperlipidemia Unknown Active 07/31/2015 Unknown neuropathy Unknown Active 04/10/2015 Unknown MACULAR DEGENERATION ICD- 9: 362.50 Active 04/09/2015 Unknown Neuropathy ICD-9: 355.9 Active 04/09/2015 Unknown Peripheral vascular disease ICD-9: 443.9 Active 04/09/2015 Unknown Coronary Artery Disease Unknown Active 01/11/2015 Unknown Hypertension Unknown Active 01/11/2015 Unknown Hypothryroidism Unknown Active 01/11/2015 Unknown Constipation - functional ICD-9: 564.09 Active 01/10/2015 Unknown ESSENTIAL HYPERTENSION ICD-9: 401.9 Active 01/10/2015 Unknown HYPOTHYROIDISM ICD-9: 244.9 Active 01/10/2015 Unknown URGE INCONTINENCE ICD-9: 788.31 Active 01/10/2015 Unknown Problems Condition Codes Effective Dates Condition Status Encounter for follow-up examination after completed treatment for conditions other than malignant neoplasm ICD-9: V67.9 ICD-10: Z09 12/28/2018 Active Left lower quadrant pain ICD-9: 789.04 ICD-10: R10.32 12/24/2018 Active Right lower quadrant pain ICD-9: 789.03 ICD-10: R10.31 12/24/2018 Active Diarrhea, unspecified ICD- 9: 787.91 ICD-10: R19.7 07/03/2017 Active Dysuria ICD-9: 788.1 ICD-10: R30.0 2017 Active Pelvic and perineal pain ICD-9: 789.09 ICD-10: R10.2 12/21/2018 Active Chronic systolic (congestive) heart failure ICD-9: 428.22 ICD-10: I50.22 10/12/2017 Active Essential (primary) hypertension ICD-9: 401.1 ICD-10: I10 11/13/2016 Active Hypoxemia ICD-9: 799.02 ICD-10: R09.02 11/23/2018 Active Other specified noninflammatory disorders of vagina ICD-9: 623.9 ICD-10: N89.8 11/01/2018 Active Atrophy of thyroid (acquired) ICD-9: 244.8 ICD-10: E03.4 01/05/2017 Active Other fatigue ICD-9: 780.79 ICD-10: R53.83 04/02/2016 Active Other insomnia ICD-9: 327.09 ICD-10: G47.09 06/29/2018 Active Encounter for general adult medical examination with abnormal findings ICD-9: V70.0 ICD-10: Z00.01 06/08/2018 Active Localized edema ICD-9: 782.3 ICD-10: R60.0 08/05/2017 Active correction (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 of anticoagulants ICD-9: V58.61 ICD-10: Z79.01 04/06/2016 Active Muscle weakness (generalized) ICD-9: 728.87 ICD-10: M62.81 05/24/2018 Active Encounter for immunization ICD-9: V04.81 ICD-10: Z23 07/02/2015 Active Lumbago with sciatica, right side ICD-9: 724.3 ICD-10: M54.41 03/23/2018 Active Sciatica, right side ICD- 9: 724.3 ICD-10: M54.31 03/23/2018 Active Sciatica Unknown 03/23/2018 Active Low back pain ICD-9: 724.2 ICD-10: M54.5 03/03/2017 Active Sacroiliitis, not elsewhere classified ICD-9: 720.2 ICD-10: M46.1 03/03/2017 Active Urge incontinence ICD-9: 788.31 ICD-10: N39.41 01/10/2015 Active Cellulitis of face ICD- 9: 682.0 ICD-10: L03.211 02/08/2018 Active Other allergic rhinitis ICD-9: 477.8 ICD-10: J30.89 10/27/2017 Active Weakness ICD-9: 780.79 ICD-10: R53.1 05/11/2017 Active Pneumonia due to other specified bacteria ICD-9: 482.81 ICD-10: J15.8 10/12/2017 Active Nonscarring hair loss, unspecified ICD-9: 704.00 ICD-10: L65.9 10/06/2017 Active Other fecal abnormalities ICD-9: 787.7 ICD-10: R19.5 07/06/2017 Active Encounter for immunization ICD-9: V03.82 ICD-10: Z23 06/18/2017 Active Presence of xenogenic heart valve ICD-9: V42.2 ICD-10: Z95.3 06/18/2017 Active Other malaise ICD-9: 780.79 ICD-10: R53.81 05/11/2017 Active Pain in right shoulder ICD-9: 719.41 ICD-10: M25.511 10/06/2016 Active Acute recurrent maxillary sinusitis ICD-9: 461.0 ICD-10: J01.01 04/27/2017 Active Urinary tract infection, site not specified ICD-9: 599.0 ICD-10: N39.0 04/27/2017 Active Iron deficiency ICD-9: 280.9 ICD-10: E61.1 04/08/2017 Active Mixed hyperlipidemia ICD- 9: 272.2 ICD-10: E78.2 04/08/2017 Active Other specified heart block ICD-9: 426.6 ICD-10: I45.5 04/08/2017 Active Vascular dementia without behavioral disturbance ICD-9: 290.40 ICD-10: F01.50 01/05/2017 Active Cervicalgia ICD-9: 723.1 ICD-10: M54.2 04/06/2016 Active Other muscle spasm ICD- 9: 728.85 ICD-10: M62.838 12/19/2016 Active Gastro-esophageal reflux disease without esophagitis ICD-9: 530.81 ICD-10: K21.9 05/20/2016 Active Insomnia due to medical condition ICD-9: 327.01 ICD-10: G47.01 10/16/2016 Active Cough ICD-9: 786.2 ICD-10: R05 10/06/2016 Active Pneumonia due to other specified bacteria ICD-9: 482.89 ICD-10: J15.8 10/06/2016 Active Essential (primary) hypertension ICD-9: 401.9 ICD-10: I10 01/10/2015 Active Personal history of other specified conditions ICD-9: V13.89 ICD-10: Z87.898 07/01/2016 Active Unsteadiness on feet ICD- 9: 781.2 ICD-10: R26.81 07/01/2016 Active Dysphagia, pharyngeal phase ICD-9: 787.23 ICD-10: R13.13 05/20/2016 Active Acute laryngopharyngitis ICD-9: 465.0 ICD-10: J06.0 04/27/2016 Active Allergic rhinitis due to pollen ICD-9: 477.0 ICD-10: J30.1 04/27/2016 Active Other cystitis without hematuria ICD-9: 595.81 ICD-10: N30.80 04/06/2016 Active Hypothyroidism, unspecified ICD-9: 244.9 ICD-10: E03.9 04/02/2016 Active Dizziness and giddiness ICD-9: 780.4 ICD-10: R42 01/30/2016 Active Pain in right ankle and joints of right foot ICD-9: 719.47 ICD-10: M25.571 01/30/2016 Active Tinnitus, bilateral ICD- 9: 388.30 ICD-10: H93.13 01/30/2016 Active Otalgia, right ear ICD- 9: 388.70 ICD-10: H92.01 11/28/2015 Active Unspecified dementia without behavioral disturbance ICD-9: 294.20 ICD-10: F03.90 09/30/2015 Active Hyperlipidemia Unknown 07/31/2015 Active neuropathy Unknown 04/10/2015 Active MACULAR DEGENERATION ICD- 9: 362.50 04/09/2015 Active Neuropathy ICD-9: 355.9 04/09/2015 Active Peripheral vascular disease ICD-9: 443.9 04/09/2015 Active Coronary Artery Disease Unknown 01/11/2015 Active Hypertension Unknown 01/11/2015 Active Hypothryroidism Unknown 01/11/2015 Active Constipation - functional ICD-9: 564.09 01/10/2015 Active ESSENTIAL HYPERTENSION ICD-9: 401.9 01/10/2015 Active HYPOTHYROIDISM ICD-9: 244.9 01/10/2015 Active URGE INCONTINENCE ICD-9: 788.31 01/10/2015 Active Medications Medication Codes Instructions Start Date Stop Date Status Fill Instructions Synthroid 175 mcg tablet RxNorm: 416372 1 Tablet(s) PO daily do not take on Thursday12/29/2018 05/27/2019 Active Flagyl 500 mg tablet RxNorm: 660878 1 Tablet(s) PO TID 12/24/2018 12/30/2018 Active Keflex 500 mg capsule RxNorm: 985180 1 Capsule(s) PO TID 12/21/2018 12/30/2018 Active Pyridium 200 mg tablet RxNorm: 9057213 1 Tablet(s) PO TID as needed for pain 12/21/2018 12/22/2018 Inactive Synthroid 175 mcg tablet RxNorm: 950532 1 Tablet(s) PO 5 times weekly 09/30/2018 09/29/2018 Inactive alternate with 175mcg order Synthroid 175 mcg tablet RxNorm: 844250 1 Tablet(s) PO daily 09/30/2018 12/28/2018 Inactive this is an update on the dose - she is to take this daily - hold off on the 200mcg pills for now losartan 25 mg tablet RxNorm: 575160 TAKE 1 TABLET BY MOUTH ONCE DAILY 08/30/2018 No Stop Date Active Myrbetriq 50 mg tablet,extended release RxNorm: 0613410 1 Tablet(s) PO daily 08/24/2018 12/21/2018 Inactive Synthroid 175 mcg tablet RxNorm: 887309 1 Tablet(s) PO 4 times a week Thu sun 07/20/2018 09/29/2018 Inactive alternate with 175mcg order Synthroid 200 mcg tablet RxNorm: 226094 Tablet(s) TAKE ONE TABLET BY MOUTH ON THURSDAY, Thursday07/20/2018 09/29/2018 Inactive pantoprazole 40 mg tablet,delayed release RxNorm: 563038 TAKE ONE TABLET BY MOUTH TWICE DAILY 07/19/2018 No Stop Date Active furosemide 40 mg tablet RxNorm: 846372 1 Tablet(s) PO 2 times weekly with song butler 07/13/2018 No Stop Date Active Synthroid 200 mcg tablet RxNorm: 586537 TAKE ONE TABLET BY MOUTH ON THURSDAY, THURSDAY, AND Thursday07/13/2018 07/19/2018 Inactive Vitamin D3 400 unit capsule RxNorm: 552273 1 Capsule(s) PO daily 06/17/2018 No Stop Date Active Aspirin Low Dose 81 mg tablet,delayed release RxNorm: 063182 1 Tablet(s) PO BIW on Thursday and Thursday06/17/2018 No Stop Date Active biotin 1,000 mcg chewable tablet RxNorm: 9696908 1 Tablet(s) PO daily 06/17/2018 No Stop Date Active Vitamin B-12 500 mcg tablet RxNorm: 537837 1 Tablet(s) PO daily 06/17/2018 No Stop Date Active Colace 100 mg capsule RxNorm: 7199169 1 Capsule(s) PO QHS 06/08/2018 No Stop Date Active Coumadin 3 mg tablet RxNorm: 793441 1 Tablet(s) PO daily x5 days and 2 mg x2 days -Managed by Dr. Bowman 06/08/2018 No Stop Date Active Keflex 500 mg capsule RxNorm: 147556 1 Capsule(s) PO TID 05/25/2018 05/31/2018 Inactive metoprolol succinate ER 100 mg tablet,extended release 24 hr RxNorm: 895274 Tablet(s) TAKE ONE TABLET BY MOUTH ONCE DAILY 05/19/2018 No Stop Date Active Coumadin 3 mg tablet RxNorm: 563357 1 Tablet(s) PO daily -Managed by Dr. Bowman 05/04/2018 06/07/2018 Inactive Synthroid 175 mcg tablet RxNorm: 483079 TAKE 1 TABLET BY MOUTH ONCE DAILY 04/06/2018 06/07/2018 Inactive cyclobenzaprine 5 mg tablet RxNorm: 611365 1/2 Tablet(s) PO TID 04/06/2018 04/15/2018 Inactive Synthroid 200 mcg tablet RxNorm: 112328 1 Tablet(s) PO TIW [facility] 04/05/2018 07/12/2018 Inactive brand name only- Alternate with 175mcg dose schedule Synthroid 175 mcg tablet RxNorm: 937457 1 Tablet(s) PO 4 times a week Thu04/05/2018 07/19/2018 Inactive alternate with 175mcg order cyclobenzaprine 5 mg tablet RxNorm: 791419 1/2 Tablet(s) PO TID 03/23/2018 04/01/2018 Inactive tramadol 50 mg tablet RxNorm: 385907 1 Tablet(s) PO TID as needed 03/17/2018 No Stop Date Active Kenalog 40 mg/mL suspension for injection RxNorm: 3941313 2 Milliliter(s) Inj 03/12/2018 03/12/2018 Inactive prednisone 20 mg tablet RxNorm: 334492 2 Tablet(s) PO daily 03/11/2018 03/10/2018 Inactive prednisone 20 mg tablet RxNorm: 593280 2 Tablet(s) PO daily 03/11/2018 03/15/2018 Inactive losartan 25 mg tablet RxNorm: 696442 TAKE ONE TABLET BY MOUTH ONCE DAILY 02/16/2018 08/29/2018 Inactive doxycycline hyclate 100 mg tablet RxNorm: 7746407 1 Tablet(s) PO BID 02/08/2018 02/14/2018 Inactive ceftriaxone 500 mg solution for injection RxNorm: 4946668 Inj 02/08/2018 02/08/2018 Inactive dapsone 25 mg tablet RxNorm: 520355 2 Tablet(s) PO daily 02/08/2018 02/12/2018 Inactive metoprolol succinate ER 100 mg tablet,extended release 24 hr RxNorm: 310612 TAKE ONE TABLET BY MOUTH ONCE DAILY 01/05/2018 05/18/2018 Inactive Synthroid 175 mcg tablet RxNorm: 439706 1 Tablet(s) PO daily 01/01/2018 03/31/2018 Inactive Synthroid 175 mcg tablet RxNorm: 502665 1 Tablet(s) PO daily 01/01/2018 12/31/2017 Inactive Myrbetriq 50 mg tablet,extended release RxNorm: 5585185 1 Tablet(s) PO daily 12/03/2017 01/01/2018 Inactive Zithromax Z-Oliver 250 mg tablet RxNorm: 006004 1 Tablet(s) PO UD 10/12/2017 10/16/2017 Inactive Tessalon Perles 100 mg capsule RxNorm: 919049 2 Capsule(s) PO TID as needed 10/12/2017 10/16/2017 Inactive prednisone 20 mg tablet RxNorm: 557724 2 Tablet(s) PO daily 10/12/2017 10/16/2017 Inactive cefdinir 300 mg capsule RxNorm: 029299 1 Capsule(s) PO BID 10/08/2017 10/07/2017 Inactive Synthroid 150 mcg tablet RxNorm: 817026 1 Tablet(s) PO daily in morning, except 1/2 Tablet PO Wed, Sat, take 30 minutes before meal 10/08/2017 04/04/2018 Inactive brand name only cefdinir 300 mg capsule RxNorm: 716343 1 Capsule(s) PO BID 10/08/2017 10/14/2017 Inactive Synthroid 150 mcg tablet RxNorm: 021099 1 Tablet(s) PO daily in morning, take 30 minutes before meal 10/06/2017 10/07/2017 Inactive brand name only cefdinir 300 mg capsule RxNorm: 835041 1 Capsule(s) PO BID 08/24/2017 08/30/2017 Inactive Zithromax Z-Oliver 250 mg tablet RxNorm: 632074 1 Tablet(s) PO UD 08/20/2017 08/19/2017 Inactive Zithromax Z-Oliver 250 mg tablet RxNorm: 372675 1 Tablet(s) PO UD 08/20/2017 08/24/2017 Inactive Synthroid 150 mcg tablet RxNorm: 402013 1 Tablet(s) PO daily in morning, take 30 minutes before meal 08/05/2017 08/04/2017 Inactive Synthroid 150 mcg tablet RxNorm: 188936 1 Tablet(s) PO daily in morning, take 30 minutes before meal 08/05/2017 10/05/2017 Inactive Coumadin 3 mg tablet RxNorm: 571072 1 Tablet(s) PO Thursday, , , and Thu- Managed by Dr. Bowman -Managed by Dr. Bowman 08/05/2017 05/03/2018 Inactive pantoprazole 40 mg tablet,delayed release RxNorm: 883725 1 Tablet(s) PO BID 07/08/2017 07/02/2018 Inactive pantoprazole 40 mg tablet,delayed release RxNorm: 719246 1 Tablet(s) PO BID 07/08/2017 07/07/2017 Inactive metoprolol succinate ER 100 mg tablet,extended release 24 hr RxNorm: 600310 TAKE ONE TABLET BY MOUTH ONCE DAILY 07/08/2017 01/04/2018 Inactive Coumadin 3 mg tablet RxNorm: 083198 1 Tablet(s) PO QPM -Managed by Dr. Bowman 07/06/2017 08/04/2017 Inactive Coumadin 3 mg tablet RxNorm: 181304 1 Tablet(s) PO QPM at 6:00pm Managed by Dr Bowman 1/2 pill on thursday and thursday, full pill other days 06/18/2017 07/05/2017 Inactive Voltaren 1 % topical gel RxNorm: 008795 2 TOP QID 06/18/2017 10/15/2017 Inactive Micro-K 10 10 mEq capsule,extended release RxNorm: 494182 1 Capsule(s) PO daily 05/08/2017 12/02/2017 Inactive Synthroid 137 mcg tablet RxNorm: 664319 1 Tablet(s) PO QAM 05/08/2017 08/04/2017 Inactive Dose increased 04/14/17 pravastatin 10 mg tablet RxNorm: 789321 1 Tablet(s) PO daily TAKE ONE TABLET BY MOUTH ONCE DAILY 05/08/2017 12/02/2017 Inactive losartan 25 mg tablet RxNorm: 260536 1 Tablet(s) PO daily TAKE ONE TABLET BY MOUTH ONCE DAILY 05/08/2017 06/07/2018 Inactive Namenda 10 mg tablet RxNorm: 004079 TAKE ONE TABLET BY MOUTH TWICE DAILY 05/07/2017 12/02/2017 Inactive Keflex 500 mg capsule RxNorm: 913614 1 Capsule(s) PO TID 04/27/2017 05/03/2017 Inactive Synthroid 137 mcg tablet RxNorm: 489856 1 Tablet(s) PO QAM 04/14/2017 04/13/2017 Inactive Vitamin D2 50,000 unit capsule RxNorm: 691272 1 Capsule(s) PO QW 04/14/2017 12/02/2017 Inactive Synthroid 137 mcg tablet RxNorm: 819196 1 Tablet(s) PO QAM 04/14/2017 05/07/2017 Inactive losartan 25 mg tablet RxNorm: 908806 TAKE ONE TABLET BY MOUTH ONCE DAILY 03/23/2017 05/07/2017 Inactive Synthroid 125 mcg tablet RxNorm: 709857 TAKE ONE TABLET BY MOUTH ONCE DAILY 03/12/2017 04/12/2017 Inactive ciprofloxacin 500 mg tablet RxNorm: 044496 1 Tablet(s) PO BID 2017 03/13/2017 Inactive prednisone 20 mg tablet RxNorm: 982869 2 Tablet(s) PO daily 03/03/2017 03/07/2017 Inactive tramadol 50 mg tablet RxNorm: 732567 1/2 Tablet(s) PO TID as needed 03/03/2017 12/02/2017 Inactive pravastatin 10 mg tablet RxNorm: 306687 TAKE ONE TABLET BY MOUTH ONCE DAILY 01/19/2017 05/07/2017 Inactive nortriptyline 10 mg capsule RxNorm: 599740 TAKE ONE CAPSULE BY MOUTH ONCE DAILY IN THE EVENING 01/14/2017 12/02/2017 Inactive Voltaren 1 % topical gel RxNorm: 082659 TOP QID 12/22/2016 02/19/2017 Inactive Voltaren 1 % topical gel RxNorm: 371766 TOP QID 12/22/2016 12/21/2016 Inactive prednisone 20 mg tablet RxNorm: 709480 2 Tablet(s) PO daily 12/19/2016 12/23/2016 Inactive cyclobenzaprine 5 mg tablet RxNorm: 189978 1/2 Tablet(s) PO BID as needed 12/19/2016 12/23/2016 Inactive Flector 1.3 % transdermal 12 hour patch RxNorm: 529118 1 Patch TOP every 12 hours as needed 12/19/2016 12/02/2017 Inactive losartan 25 mg tablet RxNorm: 434619 1 Tablet(s) PO daily TAKE ONE TABLET BY MOUTH ONCE DAILY 11/13/2016 03/22/2017 Inactive Namenda 10 mg tablet RxNorm: 895626 TAKE ONE TABLET BY MOUTH TWICE DAILY 10/28/2016 04/25/2017 Inactive nortriptyline 10 mg capsule RxNorm: 021349 TAKE ONE CAPSULE BY MOUTH ONCE DAILY IN THE EVENING 10/13/2016 01/10/2017 Inactive ceftriaxone 500 mg solution for injection RxNorm: 2298472 Inj 10/06/2016 10/06/2016 Inactive cefdinir 300 mg capsule RxNorm: 332251 1 Capsule(s) PO BID 10/06/2016 10/12/2016 Inactive prednisone 20 mg tablet RxNorm: 544990 2 Tablet(s) PO daily 10/06/2016 10/08/2016 Inactive ProAir RespiClick 90 mcg/actuation breath activated RxNorm: 0105707 2 INH TID x 3 days then one inhale tid x 3 days then prn shortness of breath 10/06/2016 11/04/2016 Inactive Kenalog 40 mg/mL suspension for injection RxNorm: 9938285 1 Milliliter(s) Inj 10/06/2016 10/06/2016 Inactive Myrbetriq 50 mg tablet,extended release RxNorm: 2448317 1 Tablet(s) PO daily 09/11/2016 11/12/2016 Inactive Namenda 10 mg tablet RxNorm: 311417 TAKE ONE TABLET BY MOUTH TWICE DAILY 07/25/2016 10/22/2016 Inactive hydrochlorothiazide 25 mg tablet RxNorm: 246835 1 Tablet(s) PO daily 07/25/2016 12/02/2017 Inactive Synthroid 125 mcg tablet RxNorm: 983635 TAKE ONE TABLET BY MOUTH ONCE DAILY 07/14/2016 03/10/2017 Inactive losartan 25 mg tablet RxNorm: 785946 TAKE ONE TABLET BY MOUTH ONCE DAILY 07/07/2016 11/12/2016 Inactive metoprolol succinate ER 100 mg tablet,extended release 24 hr RxNorm: 747191 1 Tablet(s) PO daily 06/16/2016 06/10/2017 Inactive nortriptyline 10 mg capsule RxNorm: 581060 Capsule(s) TAKE ONE CAPSULE BY MOUTH ONCE DAILY IN THE EVENING 06/09/2016 10/06/2016 Inactive Myrbetriq 50 mg tablet,extended release RxNorm: 9537583 1 Tablet(s) PO daily 05/21/2016 09/10/2016 Inactive doxycycline hyclate 100 mg tablet RxNorm: 784450 1 Tablet(s) PO BID 05/07/2016 05/13/2016 Inactive Carafate 100 mg/mL oral suspension RxNorm: 022471 10 Milliliter(s) PO QID 05/07/2016 12/02/2017 Inactive Kenalog 40 mg/mL suspension for injection RxNorm: 1344269 Milliliter(s) Inj 04/28/2016 04/28/2016 Inactive losartan 25 mg tablet RxNorm: 089812 TAKE ONE TABLET BY MOUTH ONCE DAILY 04/08/2016 07/06/2016 Inactive ciprofloxacin 500 mg tablet RxNorm: 741780 1 Tablet(s) PO BID 04/07/2016 04/13/2016 Inactive cyclobenzaprine 5 mg tablet RxNorm: 900441 1 Tablet(s) PO TID 04/07/2016 04/16/2016 Inactive Keflex 500 mg capsule RxNorm: 371633 1 Capsule(s) PO TID 04/03/2016 04/02/2016 Inactive Keflex 500 mg capsule RxNorm: 672525 1 Capsule(s) PO TID 04/03/2016 04/09/2016 Inactive losartan 25 mg tablet RxNorm: 418799 TAKE ONE TABLET BY MOUTH ONCE DAILY 03/06/2016 04/07/2016 Inactive nortriptyline 10 mg capsule RxNorm: 554043 TAKE ONE CAPSULE BY MOUTH ONCE DAILY IN THE EVENING 03/06/2016 06/03/2016 Inactive pravastatin 10 mg tablet RxNorm: 180042 TAKE ONE TABLET BY MOUTH ONCE DAILY 02/04/2016 01/18/2017 Inactive warfarin 4 mg tablet RxNorm: 820079 Tablet(s) PO q d except 5mg on tue 01/31/2016 06/17/2017 Inactive Myrbetriq 50 mg tablet,extended release RxNorm: 5568593 1 Tablet(s) PO daily 01/17/2016 05/15/2016 Inactive Namenda 10 mg tablet RxNorm: 316035 1 Tablet(s) PO BID 01/01/2016 06/28/2016 Inactive Myrbetriq 50 mg tablet,extended release RxNorm: 2438767 1 Tablet(s) PO daily 12/20/2015 12/20/2015 Inactive Synthroid 125 mcg tablet RxNorm: 998404 1 Tablet(s) PO daily 11/14/2015 07/10/2016 Inactive nortriptyline 10 mg capsule RxNorm: 857547 TAKE ONE CAPSULE BY MOUTH ONCE DAILY IN THE EVENING 11/05/2015 03/03/2016 Inactive Myrbetriq 50 mg tablet,extended release RxNorm: 3071657 1 Tablet(s) PO daily 10/01/2015 12/19/2015 Inactive Namenda 10 mg tablet RxNorm: 130088 1 Tablet(s) PO BID 08/30/2015 12/31/2015 Inactive Vesicare 10 mg tablet RxNorm: 229787 1 Tablet(s) PO daily 08/30/2015 09/30/2015 Inactive warfarin 4 mg tablet RxNorm: 197912 Tablet(s) PO 08/30/2015 01/30/2016 Inactive Synthroid 125 mcg tablet RxNorm: 229427 1 Tablet(s) PO daily 08/02/2015 11/13/2015 Inactive Synthroid 125 mcg tablet RxNorm: 540706 Tablet(s) PO 08/01/2015 08/01/2015 Inactive losartan 25 mg tablet RxNorm: 423316 1 Tablet(s) PO daily 07/31/2015 02/25/2016 Inactive pravastatin 10 mg tablet RxNorm: 982524 1 Tablet(s) PO daily 07/23/2015 01/18/2016 Inactive hydrochlorothiazide 25 mg tablet RxNorm: 742853 1 Tablet(s) PO daily 07/19/2015 07/12/2016 Inactive nortriptyline 10 mg capsule RxNorm: 330029 1 Capsule(s) PO QPM 07/03/2015 10/30/2015 Inactive metoprolol succinate ER 100 mg tablet,extended release 24 hr RxNorm: 259637 1 Tablet(s) PO daily 06/06/2015 05/30/2016 Inactive pravastatin 10 mg tablet RxNorm: 591577 1 Tablet(s) PO daily 01/22/2015 07/20/2015 Inactive aspirin 81 mg capsule,delayed release RxNorm: 674281 1 Capsule(s) PO daily 01/11/2015 02/09/2015 Inactive Fosamax 5 mg tablet RxNorm: 991333 1 Tablet(s) QW 01/11/2015 12/02/2017 Inactive oxybutynin chloride ER 10 mg tablet,extended release 24 hr RxNorm: 365470 1 Tablet(s) PO daily 01/11/2015 08/29/2015 Inactive Fosamax 70 mg tablet RxNorm: 619842 1 Tablet(s) PO QW No Start Date Active Claritin oral RxNorm: 53273 oral No Start Date Active Centrum oral RxNorm: oral No Start Date Active Calcium 600 + D(3) oral RxNorm: 479002 oral No Start Date Active Coumadin 4 mg tablet RxNorm: 000178 1 Tablet(s) PO daily on M,W,F No Start Date 06/07/2018 Inactive Vitamin D3 oral RxNorm: oral No Start Date 06/16/2018 Inactive pravastatin 10 mg tablet RxNorm: 219801 1 Tablet(s) PO daily No Start Date 01/21/2015 Inactive Aspirin Low Dose 81 mg tablet,delayed release RxNorm: 162893 1 Tablet(s) PO BIW on Thursday and Thursday No Start Date 06/16/2018 Inactive Tylenol PM oral RxNorm: 172094 oral No Start Date 04/07/2017 Inactive Vitamin D2 oral RxNorm: 4018 oral No Start Date 06/08/2018 Inactive Vitamin D2 50,000 unit capsule RxNorm: 853929 1 Capsule(s) PO QW No Start Date 04/13/2017 Inactive tramadol 50 mg tablet RxNorm: 673916 1 Tablet(s) PO TID as needed No Start Date 03/16/2018 Inactive Colace 100 mg capsule RxNorm: 1041091 Capsule(s) PO No Start Date 06/07/2018 Inactive furosemide 40 mg tablet RxNorm: 973920 1 Tablet(s) PO daily as needed No Start Date 07/12/2018 Inactive biotin oral RxNorm: oral No Start Date 06/16/2018 Inactive Micro-K 10 10 mEq capsule,extended release RxNorm: 706587 1 Capsule(s) PO daily No Start Date 05/07/2017 Inactive Synthroid 100 mcg tablet RxNorm: 343279 Tablet(s) PO No Start Date 07/31/2015 Inactive Vitamin B-12 oral RxNorm: oral No Start Date 06/16/2018 Inactive PreserVision AREDS 2 oral RxNorm: 7935075 oral No Start Date 06/07/2018 Inactive hydrochlorothiazide 25 mg tablet RxNorm: 562414 1 Tablet(s) PO daily No Start Date 07/18/2015 Inactive warfarin 2 mg tablet RxNorm: 163739 Tablet(s) PO No Start Date 08/29/2015 Inactive metoprolol succinate ER 100 mg tablet,extended release 24 hr RxNorm: 639317 1 Tablet(s) PO daily No Start Date 06/05/2015 Inactive warfarin 3 mg tablet RxNorm: 201010 Tablet(s) PO No Start Date 08/29/2015 Inactive Coumadin 3 mg tablet RxNorm: 370816 1 Tablet(s) PO QPM at 6:00pm Managed by Dr Bowman No Start Date 06/17/2017 Inactive Myrbetriq 50 mg tablet,extended release RxNorm: 7039489 1 Tablet(s) PO daily No Start Date 08/23/2018 Inactive Medication Administered Medication Codes Instructions Start Date Status Kenalog 40 mg/mL suspension for injection RxNorm: 8513894 2Milliliter 03/12/2018 No longer Active ceftriaxone 500 mg solution for injection RxNorm: 9472191 02/08/2018 No longer Active Kenalog 40 mg/mL suspension for injection RxNorm: 3783357 1Milliliter 10/06/2016 No longer Active ceftriaxone 500 mg solution for injection RxNorm: 2117594 10/06/2016 No longer Active Kenalog 40 mg/mL suspension for injection RxNorm: 9734620 Milliliter 04/28/2016 No longer Active Immunizations Vaccine Codes Date Status SHINGARIX CVX: 121 09/07/2018 completed SHINGARIX CVX: 121 06/08/2018 completed Influenza CVX: 141 05/20/2018 completed Influenza CVX: 141 06/18/2017 completed Influenza CVX: 141 06/10/2016 completed Pneumococcal CVX: 133 05/29/2016 completed Influenza CVX: 141 07/03/2015 completed Assessments Condition Codes Effective Dates Encounter for follow-up examination after completed treatment for conditions other than malignant neoplasm ICD-10: Z09 ICD-9: V67.9 12/28/2018 Left lower quadrant pain ICD-10: R10.32 ICD-9: 789.04 12/24/2018 Right lower quadrant pain ICD-10: R10.31 ICD-9: 789.03 12/24/2018 Pelvic and perineal pain ICD-10: R10.2 ICD-9: 789.09 12/21/2018 Chronic systolic (congestive) heart failure ICD-10: I50.22 ICD-9: 428.22 11/23/2018 Essential (primary) hypertension ICD-10: I10 ICD-9: 401.1 11/23/2018 Hypoxemia ICD-10: R09.02 ICD-9: 799.02 11/23/2018 Other specified noninflammatory disorders of vagina ICD-10: N89.8 ICD-9: 623.9 11/01/2018 Dysuria ICD-10: R30.0 ICD-9: 788.1 11/01/2018 Atrophy of thyroid (acquired) ICD-10: E03.4 ICD-9: 244.8 09/30/2018 Other fatigue ICD-10: R53.83 ICD-9: 780.79 06/29/2018 Other insomnia ICD-10: G47.09 ICD-9: 327.09 06/29/2018 Encounter for general adult medical examination with abnormal findings ICD-10: Z00.01 ICD-9: V70.0 06/08/2018 Localized edema ICD-10: R60.0 ICD-9: 782.3 05/24/2018 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 ICD-9: V58.61 05/24/2018 Muscle weakness (generalized) ICD-10: M62.81 ICD-9: 728.87 05/24/2018 Encounter for immunization ICD-10: Z23 ICD-9: V04.81 05/20/2018 Sciatica, right side ICD-10: M54.31 ICD-9: 724.3 04/06/2018 Lumbago with sciatica, right side ICD-10: M54.41 ICD-9: 724.3 04/06/2018 Sacroiliitis, not elsewhere classified ICD-10: M46.1 ICD-9: 720.2 03/12/2018 Low back pain ICD-10: M54.5 ICD-9: 724.2 03/12/2018 Urge incontinence ICD-10: N39.41 ICD-9: 788.31 03/02/2018 Cellulitis of face ICD-10: L03.211 ICD-9: 682.0 02/08/2018 Weakness ICD-10: R53.1 ICD-9: 780.79 10/27/2017 Other allergic rhinitis ICD-10: J30.89 ICD-9: 477.8 10/27/2017 Pneumonia due to other specified bacteria ICD-10: J15.8 ICD-9: 482.81 10/12/2017 Nonscarring hair loss, unspecified ICD-10: L65.9 ICD-9: 704.00 10/06/2017 Other fecal abnormalities ICD-10: R19.5 ICD-9: 787.7 07/06/2017 Diarrhea, unspecified ICD-10: R19.7 ICD-9: 787.91 07/03/2017 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 ICD-9: V42.2 06/18/2017 Encounter for immunization ICD-10: Z23 ICD-9: V03.82 06/18/2017 Pain in right shoulder ICD-10: M25.511 ICD-9: 719.41 05/11/2017 Other malaise ICD-10: R53.81 ICD-9: 780.79 05/11/2017 Acute recurrent maxillary sinusitis ICD-10: J01.01 ICD-9: 461.0 04/27/2017 Urinary tract infection, site not specified ICD-10: N39.0 ICD-9: 599.0 04/27/2017 Iron deficiency ICD-10: E61.1 ICD-9: 280.9 04/08/2017 Mixed hyperlipidemia ICD-10: E78.2 ICD-9: 272.2 04/08/2017 Other specified heart block ICD-10: I45.5 ICD-9: 426.6 04/08/2017 Vascular dementia without behavioral disturbance ICD-10: F01.50 ICD-9: 290.40 01/05/2017 Cervicalgia ICD-10: M54.2 ICD-9: 723.1 12/19/2016 Other muscle spasm ICD-10: M62.838 ICD-9: 728.85 12/19/2016 Gastro-esophageal reflux disease without esophagitis ICD-10: K21.9 ICD-9: 530.81 11/13/2016 Insomnia due to medical condition ICD-10: G47.01 ICD-9: 327.01 10/16/2016 Pneumonia due to other specified bacteria ICD-10: J15.8 ICD-9: 482.89 10/06/2016 Cough ICD-10: R05 ICD-9: 786.2 10/06/2016 Unsteadiness on feet ICD-10: R26.81 ICD-9: 781.2 07/02/2016 Personal history of other specified conditions ICD-10: Z87.898 ICD-9: V13.89 07/02/2016 Essential (primary) hypertension ICD-10: I10 ICD-9: 401.9 07/02/2016 Dysphagia, pharyngeal phase ICD-10: R13.13 ICD-9: 787.23 05/21/2016 Acute laryngopharyngitis ICD-10: J06.0 ICD-9: 465.0 04/28/2016 Allergic rhinitis due to pollen ICD-10: J30.1 ICD-9: 477.0 04/28/2016 Other cystitis without hematuria ICD-10: N30.80 ICD-9: 595.81 04/07/2016 Hypothyroidism, unspecified ICD-10: E03.9 ICD-9: 244.9 04/03/2016 Dizziness and giddiness ICD-10: R42 ICD-9: 780.4 01/31/2016 Pain in right ankle and joints of right foot ICD-10: M25.571 ICD-9: 719.47 01/31/2016 Tinnitus, bilateral ICD-10: H93.13 ICD-9: 388.30 01/31/2016 Otalgia, right ear ICD-10: H92.01 ICD-9: 388.70 11/29/2015 Unspecified dementia without behavioral disturbance ICD-10: F03.90 ICD-9: 294.20 10/01/2015 Hyperlipidemia, unspecified ICD-10: E78.5 ICD-9: 272.4 07/31/2015 Neuropathy ICD-9: 355.9 04/10/2015 Peripheral vascular disease ICD-9: 443.9 04/10/2015 ESSENTIAL HYPERTENSION ICD-9: 401.9 04/10/2015 MACULAR DEGENERATION ICD-9: 362.50 04/10/2015 URGE INCONTINENCE ICD-9: 788.31 01/11/2015 HYPOTHYROIDISM ICD-9: 244.9 01/11/2015 Constipation - functional ICD-9: 564.09 01/11/2015 Reason For Visit Reason For Visit Effective Dates Notes abdominal pain 12/28/2018 abdominal pain 12/24/2018 abdominal pain 12/21/2018 medication follow up 11/23/2018 vaginal bleeding 11/01/2018 hypertension 09/30/2018 neck pain 07/20/2018 hypertension 06/29/2018 Annual Medicare Wellness Exam 06/08/2018 sore throat 05/24/2018 vaccination against influenza 05/20/2018 back pain 04/06/2018 back pain 03/23/2018 back pain 03/12/2018 hypertension 03/02/2018 rash 02/08/2018 hypertension 12/03/2017 sinus congestion 10/27/2017 sinus congestion 10/12/2017 hypertension 10/06/2017 hypertension 08/05/2017 hypertension 07/06/2017 Hospital Follow Up 06/18/2017 UTI, supra-therapeutic INR, recent fall fatigue 05/11/2017 cough 04/27/2017 fatigue 04/08/2017 back pain 03/03/2017 hypertension 01/05/2017 neck pain 12/19/2016 dysphagia 11/13/2016 hypertension 10/16/2016 hypertension 10/06/2016 sore throat 07/02/2016 sore throat 05/21/2016 sore throat 05/07/2016 sore throat 04/28/2016 sore throat 04/07/2016 hypertension 04/03/2016 tinnitus 01/31/2016 tick bite to left groin hypertension 11/29/2015 hypertension 10/01/2015 hypertension 08/30/2015 sore throat 07/31/2015 anxiety 07/03/2015 [facility]in [facility] abnormal bleeding and bruising 04/10/2015 pt on warfarin [facility]. urinary incontinence 01/11/2015 TAKING NAMENDA 28MG XR. WANTS TO TRY A LOWER DOSE. NAMENDA 10MG WASN'T COVERED BY INSURANCE Results Observation Observation Code Item Item Code Result Date Urine Culture Ucult Preliminary NO Growth Day 1 11/04/2018 Urine Culture Ucult Complete NO Growth Day 2 11/04/2018 Urine Culture Ucult Preliminary NO Growth Day 1 05/27/2018 Urine Culture Ucult Complete NO Growth Day 2 05/27/2018 Comp Metabolic Yuf073 NA 142 mEq/L 05/24/2018 Comp Metabolic Gqz765 K 4.0 mEq/L 05/24/2018 Comp Metabolic Cse747 CL 104 mEq/L 05/24/2018 Comp Metabolic Eeo025 CO2 30.0 mEq/L 05/24/2018 Comp Metabolic Mwa802 ANION GAP 12 05/24/2018 Comp Metabolic Gwn281 GLUCOSE 94 mg/dL 05/24/2018 Comp Metabolic Xyp522 Creat 0.6 mg/dL 05/24/2018 Comp Metabolic Eku580 eGFR 97 ml/min/1.73m2 05/24/2018 Comp Metabolic Aym874 BUN 12 mg/dL 05/24/2018 Comp Metabolic Pit473 B/C Ratio 19.4 Ratio 05/24/2018 Comp Metabolic Fdl600 CALCIUM 8.8 mg/dL 05/24/2018 Comp Metabolic Tos174 ALK PHOS 135 U/L 05/24/2018 Comp Metabolic Rrm918 AST(SGOT) 18 U/L 05/24/2018 Comp Metabolic Bmv244 ALT(SGPT) 16 U/L 05/24/2018 Comp Metabolic Wqc904 BILI T 0.4 mg/dL 05/24/2018 Comp Metabolic Kkw458 ALBUMIN 3.9 g/dL 05/24/2018 Comp Metabolic Cxr191 TPRO 6.0 g/dL 05/24/2018 Comp Metabolic Qfg882 GLOB 2.1 g/dL 05/24/2018 Comp Metabolic Tdd576 A/G Ratio 1.8 Ratio 05/24/2018 Comp Metabolic Wzs001 Osmo 283 mOsmo 05/24/2018 Pt Tcj7665 PT 28.2 seconds 05/24/2018 Pt Wzp2966 INR 2.6 05/24/2018 Pt Nxo2483 Low Intensity - 1.5-2.0 05/24/2018 Pt Ccc3148 Mod intensity - 2.0-3.0 05/24/2018 Pt Vtg9805 Hi intensity - 3.0-4.0 05/24/2018 Cbc With Differential Ord2 WBC 7.30 K/ul 05/24/2018 Cbc With Differential Ord2 RBC 4.04 M/ul 05/24/2018 Cbc With Differential Ord2 HGB 12.0 g/dl 05/24/2018 Cbc With Differential Ord2 HCT 38.9 % 05/24/2018 Cbc With Differential Ord2 Neut% 66.0 % 05/24/2018 Cbc With Differential Ord2 MCV 96.3 fl 05/24/2018 Cbc With Differential Ord2 Lymph% 21.1 % 05/24/2018 Cbc With Differential Ord2 MCH 29.7 pg 05/24/2018 Cbc With Differential Ord2 [place]% 7.0 % 05/24/2018 Cbc With Differential Ord2 MCHC 30.8 pg 05/24/2018 Cbc With Differential Ord2 Eos% 5.5 % 05/24/2018 Cbc With Differential Ord2 PLT 198 K/ul 05/24/2018 Cbc With Differential Ord2 Baso% 0.4 % 05/24/2018 Cbc With Differential Ord2 RDW 15.0 % 05/24/2018 Cbc With Differential Ord2 Neut ABS# 4.82 K/ul 05/24/2018 Cbc With Differential Ord2 Lymph ABS# 1.54 K/ul 05/24/2018 Cbc With Differential Ord2 [place] ABS# 0.5 K/ul 05/24/2018 Cbc With Differential Ord2 Eos ABS# 0.4 K/ul 05/24/2018 Cbc With Differential Ord2 Baso ABS# 0.0 K/ul 05/24/2018 Tsh Ord6 TSH (3rd IS) 3.19 uIU/mL 10/06/2017 Free T4 Yyg393 FREE T4 1.64 ng/dL 10/06/2017 Free T4 Hhm027 FREE T4 1.03 ng/dL 08/05/2017 Tsh Ord6 hTSH II 6.19 uIU/mL 08/05/2017 Urine Culture Ucult Preliminary NO Growth Day 1 04/29/2017 Urine Culture Ucult Complete NO Growth Day 2 04/29/2017 Tsh Ord6 hTSH II 7.92 uIU/mL 04/09/2017 Lipid Ord30 CHOL 215 mg/dL 04/09/2017 Lipid Ord30 HDL 58.0 mg/dl 04/09/2017 Lipid Ord30 TRIG 68 mg/dL 04/09/2017 Lipid Ord30 LDL 143 mg/dL 04/09/2017 Lipid Ord30 C/HDL 3.7 Ratio 04/09/2017 Free T4 Wpk210 FREE T4 0.97 ng/dL 04/09/2017 Tibc Ord40 Iron 36 ug/dl 04/09/2017 Tibc Ord40 UIBC 281 ug/dL 04/09/2017 Tibc Ord40 TIBC 317 ug/dL 04/09/2017 Tibc Ord40 Fe-%Sat 11.4 % 04/09/2017 Comp Metabolic Kjc841 NA 136 mEq/L 04/09/2017 Comp Metabolic Yhv082 K 3.9 mEq/L 04/09/2017 Comp Metabolic Bnr252 CL 98 mEq/L 04/09/2017 Comp Metabolic Mnn812 CO2 28.0 mEq/L 04/09/2017 Comp Metabolic Onx576 ANION GAP 14 04/09/2017 Comp Metabolic Luc006 GLUCOSE 90 mg/dL 04/09/2017 Comp Metabolic Zgq106 Creat 0.6 mg/dL 04/09/2017 Comp Metabolic Awm481 eGFR 102 ml/min/1.73m2 04/09/2017 Comp Metabolic Tat298 BUN 9 mg/dL 04/09/2017 Comp Metabolic Rpt415 B/C Ratio 15.3 Ratio 04/09/2017 Comp Metabolic Ywp251 CALCIUM 8.8 mg/dL 04/09/2017 Comp Metabolic Awi423 ALK PHOS 102 U/L 04/09/2017 Comp Metabolic Qew702 AST(SGOT) 18 U/L 04/09/2017 Comp Metabolic Ujd097 ALT(SGPT) 14 U/L 04/09/2017 Comp Metabolic Wiu803 BILI T 0.4 mg/dL 04/09/2017 Comp Metabolic Rhf317 ALBUMIN 3.9 g/dL 04/09/2017 Comp Metabolic Nyf564 TPRO 6.3 g/dL 04/09/2017 Comp Metabolic Ifb962 GLOB 2.4 g/dL 04/09/2017 Comp Metabolic Bvv983 A/G Ratio 1.7 Ratio 04/09/2017 Comp Metabolic Fre269 Osmo 270 mOsmo 04/09/2017 Vitamin D 25 Oh Wrv8089 VITAMIN D, 25 HYDROXY 34.31 ng/mL 04/09/2017 Cbc With Differential Ord2 WBC 7.51 K/ul 04/09/2017 Cbc With Differential Ord2 RBC 4.39 M/ul 04/09/2017 Cbc With Differential Ord2 HGB 12.7 g/dl 04/09/2017 Cbc With Differential Ord2 HCT 39.3 % 04/09/2017 Cbc With Differential Ord2 Neut% 72.8 % 04/09/2017 Cbc With Differential Ord2 MCV 89.5 fl 04/09/2017 Cbc With Differential Ord2 Lymph% 16.2 % 04/09/2017 Cbc With Differential Ord2 MCH 28.9 pg 04/09/2017 Cbc With Differential Ord2 [place]% 8.8 % 04/09/2017 Cbc With Differential Ord2 MCHC 32.3 pg 04/09/2017 Cbc With Differential Ord2 Eos% 1.7 % 04/09/2017 Cbc With Differential Ord2 PLT 207 K/ul 04/09/2017 Cbc With Differential Ord2 Baso% 0.5 % 04/09/2017 Cbc With Differential Ord2 RDW 15.2 % 04/09/2017 Cbc With Differential Ord2 Neut ABS# 5.46 K/ul 04/09/2017 Cbc With Differential Ord2 Lymph ABS# 1.22 K/ul 04/09/2017 Cbc With Differential Ord2 [place] ABS# 0.7 K/ul 04/09/2017 Cbc With Differential Ord2 Eos ABS# 0.1 K/ul 04/09/2017 Cbc With Differential Ord2 Baso ABS# 0.0 K/ul 04/09/2017 Urine Culture Ucult Complete >100,000 col/ml aerobic growth sent to ref lab 03/05/2017 Pt Wkg4729 PT 24.2 seconds 04/14/2016 Pt Awt6720 INR 2.3 04/14/2016 Pt Rbz8113 Low Intensity - 1.5-2.0 04/14/2016 Pt Szg9248 Mod intensity - 2.0-3.0 04/14/2016 Pt Zee6342 Hi intensity - 3.0-4.0 04/14/2016 Pt Iyt3952 PT 31.3 seconds 04/10/2016 Pt Kxb9948 INR 3.3 04/10/2016 Pt Ktt2974 Low Intensity - 1.5-2.0 04/10/2016 Pt Iob0061 Mod intensity - 2.0-3.0 04/10/2016 Pt Dov0825 Hi intensity - 3.0-4.0 04/10/2016 C RAP A SC [id number] Strep A Negative 04/10/2016 Urine Culture Ucult Complete >100,000 col/ml aerobic growth sent to ref lab 04/04/2016 Comp Metabolic Rai558 NA 136 mEq/L 04/03/2016 Comp Metabolic Uny148 K 3.9 mEq/L 04/03/2016 Comp Metabolic Dkz482 CL 99 mEq/L 04/03/2016 Comp Metabolic Ijx016 CO2 32.0 mEq/L 04/03/2016 Comp Metabolic Qmq051 ANION GAP 9 04/03/2016 Comp Metabolic Ffd471 GLUCOSE 88 mg/dL 04/03/2016 Comp Metabolic Ave929 Creat 0.6 mg/dL 04/03/2016 Comp Metabolic Zkz271 eGFR 93 ml/min/1.73m2 04/03/2016 Comp Metabolic Byr992 BUN 15 mg/dL 04/03/2016 Comp Metabolic Wgp871 B/C Ratio 23.4 Ratio 04/03/2016 Comp Metabolic Fth680 CALCIUM 8.7 mg/dL 04/03/2016 Comp Metabolic Gtk421 ALK PHOS 100 U/L 04/03/2016 Comp Metabolic Clw587 AST(SGOT) 28 U/L 04/03/2016 Comp Metabolic Yyy228 ALT(SGPT) 39 U/L 04/03/2016 Comp Metabolic Zhk596 BILI T 0.5 mg/dL 04/03/2016 Comp Metabolic Lhy018 ALBUMIN 4.1 g/dL 04/03/2016 Comp Metabolic Rth231 TPRO 6.6 g/dL 04/03/2016 Comp Metabolic Iuc518 GLOB 2.5 g/dL 04/03/2016 Comp Metabolic Rwe833 A/G Ratio 1.7 Ratio 04/03/2016 Comp Metabolic Fxx891 Osmo 272 mOsmo 04/03/2016 Cbc With Differential Ord2 WBC 7.27 K/ul 04/03/2016 Cbc With Differential Ord2 RBC 4.35 M/ul 04/03/2016 Cbc With Differential Ord2 HGB 12.6 g/dl 04/03/2016 Cbc With Differential Ord2 HCT 39.7 % 04/03/2016 Cbc With Differential Ord2 Neut% 70.2 % 04/03/2016 Cbc With Differential Ord2 MCV 91.3 fl 04/03/2016 Cbc With Differential Ord2 Lymph% 15.8 % 04/03/2016 Cbc With Differential Ord2 MCH 29.0 pg 04/03/2016 Cbc With Differential Ord2 [place]% 11.3 % 04/03/2016 Cbc With Differential Ord2 MCHC 31.7 pg 04/03/2016 Cbc With Differential Ord2 Eos% 2.1 % 04/03/2016 Cbc With Differential Ord2 PLT 172 K/ul 04/03/2016 Cbc With Differential Ord2 Baso% 0.6 % 04/03/2016 Cbc With Differential Ord2 RDW 14.4 % 04/03/2016 Cbc With Differential Ord2 Neut ABS# 5.11 K/ul 04/03/2016 Cbc With Differential Ord2 Lymph ABS# 1.15 K/ul 04/03/2016 Cbc With Differential Ord2 [place] ABS# 0.8 K/ul 04/03/2016 Cbc With Differential Ord2 Eos ABS# 0.2 K/ul 04/03/2016 Cbc With Differential Ord2 Baso ABS# 0.0 K/ul 04/03/2016 Tsh Ord6 hTSH II 3.06 uIU/mL 04/03/2016 Free T4 Cmo468 FREE T4 0.99 ng/dL 04/03/2016 Free T4 Kpn945 FREE T4 0.81 ng/dL 07/31/2015 Comp Metabolic Fpx600 NA 136 mEq/L 07/31/2015 Comp Metabolic Uiv589 K 3.8 mEq/L 07/31/2015 Comp Metabolic Vpi482 CL 97 mEq/L 07/31/2015 Comp Metabolic Uuw538 CO2 29.0 mEq/L 07/31/2015 Comp Metabolic Ixq360 ANION GAP 14 07/31/2015 Comp Metabolic Kam184 GLUCOSE 90 mg/dL 07/31/2015 Comp Metabolic Ayv391 Creat 0.7 mg/dL 07/31/2015 Comp Metabolic Ttz758 eGFR 80 ml/min/1.73m2 07/31/2015 Comp Metabolic Lzj869 BUN 8 mg/dL 07/31/2015 Comp Metabolic Xnu908 B/C Ratio 11.0 Ratio 07/31/2015 Comp Metabolic Gkp609 CALCIUM 8.9 mg/dL 07/31/2015 Comp Metabolic Axe767 ALK PHOS 102 U/L 07/31/2015 Comp Metabolic Bcb574 AST(SGOT) 22 U/L 07/31/2015 Comp Metabolic Cim040 ALT(SGPT) 14 U/L 07/31/2015 Comp Metabolic Dma126 BILI T 0.5 mg/dL 07/31/2015 Comp Metabolic Bab952 ALBUMIN 4.4 g/dL 07/31/2015 Comp Metabolic Ota820 TPRO 6.7 g/dL 07/31/2015 Comp Metabolic Mgr442 GLOB 2.3 g/dL 07/31/2015 Comp Metabolic Tin285 A/G Ratio 1.9 Ratio 07/31/2015 Comp Metabolic Fiz241 Osmo 270 mOsmo 07/31/2015 Tsh Ord6 hTSH II 13.88 uIU/mL 07/31/2015 Cbc With Differential Ord2 WBC 6.5 K/uL 07/31/2015 Cbc With Differential Ord2 LYM 1.4 K/uL 07/31/2015 Cbc With Differential Ord2 LYM% 21.4 % 07/31/2015 Cbc With Differential Ord2 NEUT/GRAN 4.6 K/uL 07/31/2015 Cbc With Differential Ord2 NEUT/GRAN % 71.2 % 07/31/2015 Cbc With Differential Ord2 MID 0.5 K/uL 07/31/2015 Cbc With Differential Ord2 MID% 7.4 % 07/31/2015 Cbc With Differential Ord2 RBC 4.48 M/uL 07/31/2015 Cbc With Differential Ord2 HGB 12.4 g/dL 07/31/2015 Cbc With Differential Ord2 HCT 40.9 % 07/31/2015 Cbc With Differential Ord2 MCV 91 fL 07/31/2015 Cbc With Differential Ord2 MCH 28 pg 07/31/2015 Cbc With Differential Ord2 MCHC 30 g/dL 07/31/2015 Cbc With Differential Ord2 PLT 197 K/uL 07/31/2015 Cbc With Differential Ord2 RDW 15.0 % 07/31/2015 Lipid Ord30 CHOL 225 mg/dL 07/31/2015 Lipid Ord30 HDL 47.0 mg/dl 07/31/2015 Lipid Ord30 TRIG 154 mg/dL 07/31/2015 Lipid Ord30 LDL 147 mg/dL 07/31/2015 Lipid Ord30 C/HDL 4.8 Ratio 07/31/2015 Pt Pmv4273 PT 31.9 seconds 07/03/2015 Pt Voo2800 INR 3.2 07/03/2015 Pt Fcy0731 Low Intensity - 1.5-2.0 07/03/2015 Pt Glp8526 Mod intensity - 2.0-3.0 07/03/2015 Pt Fcj1958 Hi intensity - 3.0-4.0 07/03/2015 Review of Systems System Result Effective Dates Constitutional recent illness 12/28/2018 Constitutional No chills 12/28/2018 Constitutional No diaphoresis 12/28/2018 Constitutional No fever 12/28/2018 Eyes No eye erythema 12/28/2018 Ears/Nose/Throat/Neck No nasal discharge 12/28/2018 Cardiovascular No chest pain/pressure 12/28/2018 Cardiovascular No dyspnea 12/28/2018 Respiratory No chest congestion 12/28/2018 Respiratory No cough 12/28/2018 Gastrointestinal No abdominal pain 12/28/2018 Gastrointestinal No constipation 12/28/2018 Gastrointestinal No diarrhea 12/28/2018 Gastrointestinal No hematochezia 12/28/2018 Gastrointestinal No melena 12/28/2018 Gastrointestinal No nausea 12/28/2018 Gastrointestinal No vomiting 12/28/2018 Neurologic No alteration of consciousness 12/28/2018 Neurologic No mental status change 12/28/2018 Constitutional recent illness 12/24/2018 Constitutional No chills 12/24/2018 Constitutional No diaphoresis 12/24/2018 Constitutional No fever 12/24/2018 Eyes No eye erythema 12/24/2018 Ears/Nose/Throat/Neck No nasal discharge 12/24/2018 Cardiovascular No chest pain/pressure 12/24/2018 Cardiovascular No dyspnea 12/24/2018 Respiratory No chest congestion 12/24/2018 Respiratory No cough 12/24/2018 Gastrointestinal abdominal pain 12/24/2018 Gastrointestinal No constipation 12/24/2018 Gastrointestinal No hematochezia 12/24/2018 Gastrointestinal No melena 12/24/2018 Gastrointestinal nausea 12/24/2018 Gastrointestinal No vomiting 12/24/2018 Neurologic No alteration of consciousness 12/24/2018 Neurologic No mental status change 12/24/2018 Gastrointestinal No diarrhea 12/24/2018 Constitutional No recent illness 12/21/2018 Constitutional No chills 12/21/2018 Constitutional No diaphoresis 12/21/2018 Constitutional No fever 12/21/2018 Eyes No eye erythema 12/21/2018 Ears/Nose/Throat/Neck No nasal discharge 12/21/2018 Cardiovascular No chest pain/pressure 12/21/2018 Respiratory No cough 12/21/2018 Gastrointestinal abdominal pain 12/21/2018 Genitourinary/Nephrology dysuria 12/21/2018 Genitourinary/Nephrology urinary urgency 12/21/2018 Genitourinary/Nephrology urinary frequency 12/21/2018 Neurologic No alteration of consciousness 12/21/2018 Neurologic No mental status change 12/21/2018 Gastrointestinal No constipation 12/21/2018 Gastrointestinal No diarrhea 12/21/2018 Gastrointestinal No vomiting 12/21/2018 Gastrointestinal No nausea 12/21/2018 Constitutional No recent illness 11/23/2018 Constitutional No chills 11/23/2018 Constitutional No diaphoresis 11/23/2018 Constitutional No fever 11/23/2018 Eyes No eye erythema 11/23/2018 Ears/Nose/Throat/Neck No nasal discharge 11/23/2018 Cardiovascular No chest pain/pressure 11/23/2018 Cardiovascular No dyspnea 11/23/2018 Respiratory No chest congestion 11/23/2018 Respiratory No cough 11/23/2018 Gastrointestinal No abdominal pain 11/23/2018 Neurologic No alteration of consciousness 11/23/2018 Neurologic No mental status change 11/23/2018 Respiratory dyspnea on exertion 11/23/2018 Constitutional No recent illness 11/01/2018 Constitutional No anorexia 11/01/2018 Constitutional No night sweats 11/01/2018 Constitutional No chills 11/01/2018 Constitutional No diaphoresis 11/01/2018 Constitutional fatigue 11/01/2018 Constitutional No fever 11/01/2018 Constitutional No insomnia 11/01/2018 Constitutional No malaise 11/01/2018 Constitutional No weight loss 11/01/2018 Constitutional No weight gain 11/01/2018 Gastrointestinal No abdominal pain 11/01/2018 Gastrointestinal No constipation 11/01/2018 Gastrointestinal No diarrhea 11/01/2018 Genitourinary/Nephrology No dysuria 11/01/2018 Genitourinary/Nephrology No pelvic pain 11/01/2018 Musculoskeletal No joint complaint 11/01/2018 Respiratory No cough 11/01/2018 Cardiovascular No chest pain/pressure 11/01/2018 Ears/Nose/Throat/Neck No dizziness 11/01/2018 Ears/Nose/Throat/Neck No headache 11/01/2018 Dermatologic No rash 11/01/2018 Constitutional No recent illness 09/30/2018 Constitutional No chills 09/30/2018 Constitutional No diaphoresis 09/30/2018 Constitutional fatigue 09/30/2018 Constitutional No fever 09/30/2018 Constitutional malaise 09/30/2018 Eyes No eye discharge 09/30/2018 Eyes No eye erythema 09/30/2018 Ears/Nose/Throat/Neck nasal discharge 09/30/2018 Ears/Nose/Throat/Neck No sore throat 09/30/2018 Ears/Nose/Throat/Neck postnasal drip 09/30/2018 Ears/Nose/Throat/Neck No sinus congestion 09/30/2018 Cardiovascular No chest pain/pressure 09/30/2018 Cardiovascular No dyspnea 09/30/2018 Respiratory No chest congestion 09/30/2018 Respiratory cough 09/30/2018 Respiratory dyspnea on exertion 09/30/2018 Respiratory No dyspnea 09/30/2018 Gastrointestinal No abdominal pain 09/30/2018 Gastrointestinal No constipation 09/30/2018 Gastrointestinal No diarrhea 09/30/2018 Gastrointestinal No nausea 09/30/2018 Gastrointestinal No vomiting 09/30/2018 Genitourinary/Nephrology No dysuria 09/30/2018 Genitourinary/Nephrology urinary frequency 09/30/2018 Musculoskeletal back pain 09/30/2018 Dermatologic No rash 09/30/2018 Dermatologic alopecia 09/30/2018 Neurologic No alteration of consciousness 09/30/2018 Neurologic No mental status change 09/30/2018 Neurologic weakness 09/30/2018 Psychiatric anxiety 09/30/2018 Psychiatric No depression 09/30/2018 Constitutional No recent illness 07/20/2018 Constitutional No chills 07/20/2018 Constitutional No diaphoresis 07/20/2018 Constitutional fatigue 07/20/2018 Constitutional No fever 07/20/2018 Constitutional malaise 07/20/2018 Eyes No eye discharge 07/20/2018 Eyes No eye erythema 07/20/2018 Ears/Nose/Throat/Neck nasal discharge 07/20/2018 Ears/Nose/Throat/Neck No sore throat 07/20/2018 Ears/Nose/Throat/Neck postnasal drip 07/20/2018 Ears/Nose/Throat/Neck No sinus congestion 07/20/2018 Cardiovascular No chest pain/pressure 07/20/2018 Cardiovascular No dyspnea 07/20/2018 Respiratory No chest congestion 07/20/2018 Respiratory cough 07/20/2018 Respiratory dyspnea on exertion 07/20/2018 Respiratory No dyspnea 07/20/2018 Gastrointestinal No abdominal pain 07/20/2018 Gastrointestinal No constipation 07/20/2018 Gastrointestinal No diarrhea 07/20/2018 Gastrointestinal No nausea 07/20/2018 Gastrointestinal No vomiting 07/20/2018 Genitourinary/Nephrology No dysuria 07/20/2018 Genitourinary/Nephrology No urinary urgency 07/20/2018 Genitourinary/Nephrology urinary frequency 07/20/2018 Genitourinary/Nephrology No urinary incontinence 07/20/2018 Musculoskeletal back pain 07/20/2018 Dermatologic No rash 07/20/2018 Dermatologic alopecia 07/20/2018 Neurologic No alteration of consciousness 07/20/2018 Neurologic No mental status change 07/20/2018 Neurologic weakness 07/20/2018 Psychiatric anxiety 07/20/2018 Psychiatric No depression 07/20/2018 Constitutional No recent illness 06/29/2018 Constitutional No chills 06/29/2018 Constitutional No diaphoresis 06/29/2018 Constitutional fatigue 06/29/2018 Constitutional No fever 06/29/2018 Constitutional malaise 06/29/2018 Eyes No eye discharge 06/29/2018 Eyes No eye erythema 06/29/2018 Ears/Nose/Throat/Neck nasal discharge 06/29/2018 Ears/Nose/Throat/Neck postnasal drip 06/29/2018 Ears/Nose/Throat/Neck No sinus congestion 06/29/2018 Ears/Nose/Throat/Neck No sore throat 06/29/2018 Cardiovascular No chest pain/pressure 06/29/2018 Cardiovascular No dyspnea 06/29/2018 Respiratory No chest congestion 06/29/2018 Respiratory cough 06/29/2018 Respiratory dyspnea on exertion 06/29/2018 Respiratory No dyspnea 06/29/2018 Gastrointestinal No abdominal pain 06/29/2018 Gastrointestinal No constipation 06/29/2018 Gastrointestinal No diarrhea 06/29/2018 Gastrointestinal No nausea 06/29/2018 Gastrointestinal No vomiting 06/29/2018 Genitourinary/Nephrology No dysuria 06/29/2018 Genitourinary/Nephrology No urinary urgency 06/29/2018 Genitourinary/Nephrology urinary frequency 06/29/2018 Genitourinary/Nephrology No urinary incontinence 06/29/2018 Musculoskeletal back pain 06/29/2018 Dermatologic No rash 06/29/2018 Dermatologic alopecia 06/29/2018 Neurologic No alteration of consciousness 06/29/2018 Neurologic No mental status change 06/29/2018 Neurologic weakness 06/29/2018 Psychiatric anxiety 06/29/2018 Psychiatric No depression 06/29/2018 Constitutional No recent illness 06/08/2018 Constitutional No anorexia 06/08/2018 Constitutional No night sweats 06/08/2018 Constitutional No chills 06/08/2018 Constitutional No diaphoresis 06/08/2018 Constitutional fatigue 06/08/2018 Constitutional No fever 06/08/2018 Constitutional No insomnia 06/08/2018 Constitutional No malaise 06/08/2018 Constitutional No weight loss 06/08/2018 Constitutional No weight gain 06/08/2018 Cardiovascular No chest pain/pressure 06/08/2018 Respiratory No cough 06/08/2018 Dermatologic No rash 06/08/2018 Neurologic No alteration of consciousness 06/08/2018 Constitutional recent illness 05/24/2018 Constitutional anorexia 05/24/2018 Constitutional No night sweats 05/24/2018 Constitutional No chills 05/24/2018 Constitutional No diaphoresis 05/24/2018 Constitutional fatigue 05/24/2018 Constitutional No fever 05/24/2018 Constitutional No insomnia 05/24/2018 Constitutional No malaise 05/24/2018 Constitutional No weight loss 05/24/2018 Constitutional No weight gain 05/24/2018 Eyes No eye discharge 05/24/2018 Eyes No eye erythema 05/24/2018 Ears/Nose/Throat/Neck dizziness 05/24/2018 Ears/Nose/Throat/Neck sore throat 05/24/2018 Cardiovascular edema 05/24/2018 Cardiovascular No chest pain/pressure 05/24/2018 Respiratory No cough 05/24/2018 Genitourinary/Nephrology No dysuria 05/24/2018 Genitourinary/Nephrology urinary incontinence 05/24/2018 Gastrointestinal No abdominal pain 05/24/2018 Gastrointestinal No constipation 05/24/2018 Gastrointestinal No diarrhea 05/24/2018 Gastrointestinal No vomiting 05/24/2018 Gastrointestinal No nausea 05/24/2018 Cardiovascular fatigue 05/24/2018 Cardiovascular exercise intolerance 05/24/2018 Respiratory dyspnea on exertion 05/24/2018 Musculoskeletal No joint complaint 05/24/2018 Dermatologic No rash 05/24/2018 Neurologic No alteration of consciousness 05/24/2018 Psychiatric No anxiety 05/24/2018 Constitutional No recent illness 04/06/2018 Constitutional No chills 04/06/2018 Constitutional No diaphoresis 04/06/2018 Constitutional No fever 04/06/2018 Eyes No blindness 04/06/2018 Ears/Nose/Throat/Neck No nasal discharge 04/06/2018 Cardiovascular No chest pain/pressure 04/06/2018 Cardiovascular No dyspnea 04/06/2018 Respiratory No cough 04/06/2018 Respiratory No dyspnea 04/06/2018 Musculoskeletal back pain 04/06/2018 Neurologic No alteration of consciousness 04/06/2018 Neurologic No mental status change 04/06/2018 Constitutional No recent illness 03/23/2018 Constitutional No chills 03/23/2018 Constitutional No diaphoresis 03/23/2018 Constitutional No fever 03/23/2018 Eyes No blindness 03/23/2018 Ears/Nose/Throat/Neck No nasal discharge 03/23/2018 Cardiovascular No chest pain/pressure 03/23/2018 Cardiovascular No dyspnea 03/23/2018 Respiratory No cough 03/23/2018 Respiratory No dyspnea 03/23/2018 Musculoskeletal back pain 03/23/2018 Neurologic No alteration of consciousness 03/23/2018 Neurologic No mental status change 03/23/2018 Constitutional No recent illness 03/12/2018 Constitutional No chills 03/12/2018 Constitutional No diaphoresis 03/12/2018 Constitutional No fever 03/12/2018 Eyes No eye erythema 03/12/2018 Ears/Nose/Throat/Neck No nasal discharge 03/12/2018 Cardiovascular No chest pain/pressure 03/12/2018 Cardiovascular No dyspnea 03/12/2018 Respiratory No cough 03/12/2018 Respiratory No dyspnea 03/12/2018 Musculoskeletal back pain 03/12/2018 Neurologic No alteration of consciousness 03/12/2018 Neurologic No mental status change 03/12/2018 Dermatologic sores 03/12/2018 Constitutional No recent illness 03/02/2018 Constitutional No anorexia 03/02/2018 Constitutional No night sweats 03/02/2018 Constitutional No chills 03/02/2018 Constitutional No diaphoresis 03/02/2018 Constitutional fatigue 03/02/2018 Constitutional No fever 03/02/2018 Eyes No eye discharge 03/02/2018 Eyes No eye erythema 03/02/2018 Ears/Nose/Throat/Neck No dizziness 03/02/2018 Ears/Nose/Throat/Neck No nasal discharge 03/02/2018 Ears/Nose/Throat/Neck No sore throat 03/02/2018 Ears/Nose/Throat/Neck No sinus congestion 03/02/2018 Cardiovascular No chest pain/pressure 03/02/2018 Cardiovascular No dyspnea 03/02/2018 Respiratory No chest congestion 03/02/2018 Respiratory No cough 03/02/2018 Gastrointestinal No abdominal pain 03/02/2018 Gastrointestinal diarrhea 03/02/2018 Gastrointestinal No nausea 03/02/2018 Gastrointestinal No vomiting 03/02/2018 Genitourinary/Nephrology No urinary urgency 03/02/2018 Genitourinary/Nephrology No urinary frequency 03/02/2018 Genitourinary/Nephrology No urinary incontinence 03/02/2018 Musculoskeletal No joint complaint 03/02/2018 Dermatologic No rash 03/02/2018 Dermatologic alopecia 03/02/2018 Neurologic No dizziness 03/02/2018 Neurologic No headache 03/02/2018 Neurologic No neck pain 03/02/2018 Neurologic No syncope 03/02/2018 Neurologic weakness 03/02/2018 Psychiatric anxiety 03/02/2018 Psychiatric No depression 03/02/2018 Constitutional No recent illness 02/08/2018 Constitutional No anorexia 02/08/2018 Constitutional No night sweats 02/08/2018 Constitutional No chills 02/08/2018 Constitutional No diaphoresis 02/08/2018 Constitutional No fatigue 02/08/2018 Constitutional No fever 02/08/2018 Constitutional No insomnia 02/08/2018 Constitutional No malaise 02/08/2018 Constitutional No weight loss 02/08/2018 Constitutional No weight gain 02/08/2018 Dermatologic erythema 02/08/2018 Constitutional No recent illness 12/03/2017 Constitutional No anorexia 12/03/2017 Constitutional No night sweats 12/03/2017 Constitutional No chills 12/03/2017 Constitutional No diaphoresis 12/03/2017 Constitutional fatigue 12/03/2017 Constitutional No fever 12/03/2017 Eyes No eye discharge 12/03/2017 Eyes No eye erythema 12/03/2017 Ears/Nose/Throat/Neck No dizziness 12/03/2017 Ears/Nose/Throat/Neck No nasal discharge 12/03/2017 Ears/Nose/Throat/Neck No sore throat 12/03/2017 Ears/Nose/Throat/Neck No sinus congestion 12/03/2017 Cardiovascular No chest pain/pressure 12/03/2017 Cardiovascular No dyspnea 12/03/2017 Respiratory No chest congestion 12/03/2017 Respiratory No cough 12/03/2017 Gastrointestinal No abdominal pain 12/03/2017 Gastrointestinal diarrhea 12/03/2017 Gastrointestinal No nausea 12/03/2017 Gastrointestinal No vomiting 12/03/2017 Genitourinary/Nephrology No urinary urgency 12/03/2017 Genitourinary/Nephrology No urinary frequency 12/03/2017 Genitourinary/Nephrology No urinary incontinence 12/03/2017 Musculoskeletal No joint complaint 12/03/2017 Dermatologic No rash 12/03/2017 Neurologic No dizziness 12/03/2017 Neurologic No headache 12/03/2017 Neurologic No neck pain 12/03/2017 Neurologic No syncope 12/03/2017 Neurologic weakness 12/03/2017 Psychiatric anxiety 12/03/2017 Psychiatric No depression 12/03/2017 Dermatologic alopecia 12/03/2017 Constitutional No recent illness 10/27/2017 Constitutional No chills 10/27/2017 Constitutional No diaphoresis 10/27/2017 Constitutional fatigue 10/27/2017 Constitutional No fever 10/27/2017 Eyes No eye discharge 10/27/2017 Eyes No eye erythema 10/27/2017 Ears/Nose/Throat/Neck nasal discharge 10/27/2017 Ears/Nose/Throat/Neck No sore throat 10/27/2017 Ears/Nose/Throat/Neck No sinus congestion 10/27/2017 Cardiovascular No chest pain/pressure 10/27/2017 Cardiovascular No dyspnea 10/27/2017 Respiratory No chest congestion 10/27/2017 Respiratory cough 10/27/2017 Gastrointestinal No abdominal pain 10/27/2017 Gastrointestinal No nausea 10/27/2017 Gastrointestinal No vomiting 10/27/2017 Genitourinary/Nephrology No urinary urgency 10/27/2017 Genitourinary/Nephrology urinary frequency 10/27/2017 Genitourinary/Nephrology No urinary incontinence 10/27/2017 Dermatologic No rash 10/27/2017 Dermatologic alopecia 10/27/2017 Neurologic weakness 10/27/2017 Psychiatric anxiety 10/27/2017 Psychiatric No depression 10/27/2017 Constitutional malaise 10/27/2017 Ears/Nose/Throat/Neck postnasal drip 10/27/2017 Respiratory No dyspnea 10/27/2017 Respiratory dyspnea on exertion 10/27/2017 Gastrointestinal No diarrhea 10/27/2017 Gastrointestinal No constipation 10/27/2017 Genitourinary/Nephrology No dysuria 10/27/2017 Musculoskeletal back pain 10/27/2017 Neurologic No alteration of consciousness 10/27/2017 Neurologic No mental status change 10/27/2017 Constitutional No recent illness 10/12/2017 Constitutional No chills 10/12/2017 Constitutional No diaphoresis 10/12/2017 Constitutional fatigue 10/12/2017 Constitutional No fever 10/12/2017 Eyes No eye discharge 10/12/2017 Eyes No eye erythema 10/12/2017 Ears/Nose/Throat/Neck nasal discharge 10/12/2017 Ears/Nose/Throat/Neck sore throat 10/12/2017 Ears/Nose/Throat/Neck sinus congestion 10/12/2017 Cardiovascular No chest pain/pressure 10/12/2017 Respiratory chest congestion 10/12/2017 Respiratory cough 10/12/2017 Gastrointestinal No abdominal pain 10/12/2017 Gastrointestinal No nausea 10/12/2017 Gastrointestinal No vomiting 10/12/2017 Musculoskeletal No joint complaint 10/12/2017 Dermatologic No rash 10/12/2017 Dermatologic alopecia 10/12/2017 Ears/Nose/Throat/Neck nasal allergies 10/12/2017 Ears/Nose/Throat/Neck postnasal drip 10/12/2017 Respiratory productive sputum 10/12/2017 Respiratory dyspnea on exertion 10/12/2017 Neurologic No alteration of consciousness 10/12/2017 Constitutional No recent illness 10/06/2017 Constitutional No anorexia 10/06/2017 Constitutional No night sweats 10/06/2017 Constitutional No chills 10/06/2017 Constitutional No diaphoresis 10/06/2017 Constitutional fatigue 10/06/2017 Constitutional No fever 10/06/2017 Eyes No eye discharge 10/06/2017 Eyes No eye erythema 10/06/2017 Ears/Nose/Throat/Neck No dizziness 10/06/2017 Ears/Nose/Throat/Neck No nasal discharge 10/06/2017 Ears/Nose/Throat/Neck No sore throat 10/06/2017 Ears/Nose/Throat/Neck No sinus congestion 10/06/2017 Cardiovascular No chest pain/pressure 10/06/2017 Cardiovascular No dyspnea 10/06/2017 Respiratory No chest congestion 10/06/2017 Respiratory No cough 10/06/2017 Gastrointestinal No abdominal pain 10/06/2017 Gastrointestinal diarrhea 10/06/2017 Gastrointestinal No nausea 10/06/2017 Gastrointestinal No vomiting 10/06/2017 Genitourinary/Nephrology No urinary urgency 10/06/2017 Genitourinary/Nephrology No urinary frequency 10/06/2017 Genitourinary/Nephrology No urinary incontinence 10/06/2017 Musculoskeletal No joint complaint 10/06/2017 Dermatologic No rash 10/06/2017 Neurologic No dizziness 10/06/2017 Neurologic No headache 10/06/2017 Neurologic No neck pain 10/06/2017 Neurologic No syncope 10/06/2017 Neurologic weakness 10/06/2017 Psychiatric anxiety 10/06/2017 Psychiatric No depression 10/06/2017 Dermatologic alopecia 10/06/2017 Constitutional No recent illness 08/05/2017 Constitutional No anorexia 08/05/2017 Constitutional No night sweats 08/05/2017 Constitutional No chills 08/05/2017 Constitutional No diaphoresis 08/05/2017 Constitutional No fatigue 08/05/2017 Constitutional No fever 08/05/2017 Eyes No eye discharge 08/05/2017 Eyes No eye erythema 08/05/2017 Ears/Nose/Throat/Neck No dizziness 08/05/2017 Ears/Nose/Throat/Neck No nasal discharge 08/05/2017 Ears/Nose/Throat/Neck No sore throat 08/05/2017 Ears/Nose/Throat/Neck No sinus congestion 08/05/2017 Cardiovascular No chest pain/pressure 08/05/2017 Cardiovascular No dyspnea 08/05/2017 Respiratory No chest congestion 08/05/2017 Respiratory No cough 08/05/2017 Gastrointestinal No abdominal pain 08/05/2017 Gastrointestinal constipation 08/05/2017 Gastrointestinal No diarrhea 08/05/2017 Gastrointestinal No nausea 08/05/2017 Gastrointestinal No vomiting 08/05/2017 Genitourinary/Nephrology urinary urgency 08/05/2017 Genitourinary/Nephrology No urinary incontinence 08/05/2017 Musculoskeletal No joint complaint 08/05/2017 Dermatologic No rash 08/05/2017 Neurologic No dizziness 08/05/2017 Neurologic No headache 08/05/2017 Neurologic memory loss 08/05/2017 Neurologic No neck pain 08/05/2017 Neurologic No syncope 08/05/2017 Psychiatric anxiety 08/05/2017 Psychiatric No depression 08/05/2017 Genitourinary/Nephrology No urinary frequency 08/05/2017 Dermatologic ecchymosis 08/05/2017 Constitutional No recent illness 07/06/2017 Constitutional No anorexia 07/06/2017 Constitutional No night sweats 07/06/2017 Constitutional No chills 07/06/2017 Constitutional No diaphoresis 07/06/2017 Constitutional No fatigue 07/06/2017 Constitutional No fever 07/06/2017 Eyes No eye discharge 07/06/2017 Eyes No eye erythema 07/06/2017 Ears/Nose/Throat/Neck No dizziness 07/06/2017 Ears/Nose/Throat/Neck No nasal discharge 07/06/2017 Ears/Nose/Throat/Neck No sore throat 07/06/2017 Ears/Nose/Throat/Neck No sinus congestion 07/06/2017 Cardiovascular No chest pain/pressure 07/06/2017 Cardiovascular No dyspnea 07/06/2017 Respiratory No chest congestion 07/06/2017 Respiratory No cough 07/06/2017 Gastrointestinal No abdominal pain 07/06/2017 Gastrointestinal diarrhea 07/06/2017 Gastrointestinal No nausea 07/06/2017 Gastrointestinal No vomiting 07/06/2017 Genitourinary/Nephrology No urinary urgency 07/06/2017 Genitourinary/Nephrology No urinary frequency 07/06/2017 Genitourinary/Nephrology No urinary incontinence 07/06/2017 Musculoskeletal No joint complaint 07/06/2017 Dermatologic No rash 07/06/2017 Neurologic No dizziness 07/06/2017 Neurologic No headache 07/06/2017 Neurologic No neck pain 07/06/2017 Neurologic No syncope 07/06/2017 Psychiatric anxiety 07/06/2017 Psychiatric No depression 07/06/2017 Neurologic weakness 07/06/2017 Constitutional recent illness 06/18/2017 Constitutional anorexia 06/18/2017 Constitutional No chills 06/18/2017 Constitutional No diaphoresis 06/18/2017 Constitutional fatigue 06/18/2017 Constitutional No fever 06/18/2017 Constitutional malaise 06/18/2017 Eyes No blindness 06/18/2017 Ears/Nose/Throat/Neck No nasal allergies 06/18/2017 Ears/Nose/Throat/Neck No nasal discharge 06/18/2017 Ears/Nose/Throat/Neck No sinus congestion 06/18/2017 Ears/Nose/Throat/Neck No sore throat 06/18/2017 Cardiovascular No chest pain/pressure 06/18/2017 Cardiovascular No edema 06/18/2017 Cardiovascular fatigue 06/18/2017 Cardiovascular near-syncope/dizziness 06/18/2017 Respiratory No chest congestion 06/18/2017 Respiratory No cough 06/18/2017 Respiratory dyspnea on exertion 06/18/2017 Gastrointestinal No abdominal pain 06/18/2017 Gastrointestinal No constipation 06/18/2017 Gastrointestinal No diarrhea 06/18/2017 Gastrointestinal nausea 06/18/2017 Gastrointestinal No vomiting 06/18/2017 Genitourinary/Nephrology No dysuria 06/18/2017 Musculoskeletal muscle weakness 06/18/2017 Dermatologic No rash 06/18/2017 Neurologic No alteration of consciousness 06/18/2017 Neurologic No mental status change 06/18/2017 Psychiatric No anxiety 06/18/2017 Psychiatric No depression 06/18/2017 Constitutional recent illness 05/11/2017 Constitutional No chills 05/11/2017 Constitutional No diaphoresis 05/11/2017 Constitutional fatigue 05/11/2017 Constitutional No fever 05/11/2017 Constitutional malaise 05/11/2017 Constitutional anorexia 05/11/2017 Eyes No eye erythema 05/11/2017 Ears/Nose/Throat/Neck No nasal discharge 05/11/2017 Ears/Nose/Throat/Neck No nasal allergies 05/11/2017 Ears/Nose/Throat/Neck No sore throat 05/11/2017 Ears/Nose/Throat/Neck No sinus congestion 05/11/2017 Cardiovascular No chest pain/pressure 05/11/2017 Cardiovascular fatigue 05/11/2017 Cardiovascular near-syncope/dizziness 05/11/2017 Cardiovascular No edema 05/11/2017 Respiratory No cough 05/11/2017 Respiratory No chest congestion 05/11/2017 Respiratory dyspnea on exertion 05/11/2017 Gastrointestinal No abdominal pain 05/11/2017 Gastrointestinal No diarrhea 05/11/2017 Gastrointestinal No constipation 05/11/2017 Gastrointestinal nausea 05/11/2017 Gastrointestinal No vomiting 05/11/2017 Genitourinary/Nephrology No dysuria 05/11/2017 Musculoskeletal muscle weakness 05/11/2017 Dermatologic No rash 05/11/2017 Neurologic No alteration of consciousness 05/11/2017 Neurologic No mental status change 05/11/2017 Constitutional recent illness 04/27/2017 Constitutional No anorexia 04/27/2017 Constitutional No night sweats 04/27/2017 Constitutional No chills 04/27/2017 Constitutional No diaphoresis 04/27/2017 Constitutional fatigue 04/27/2017 Constitutional No fever 04/27/2017 Constitutional No insomnia 04/27/2017 Constitutional No malaise 04/27/2017 Constitutional No weight loss 04/27/2017 Constitutional No weight gain 04/27/2017 Eyes No eye discharge 04/27/2017 Eyes No eye erythema 04/27/2017 Ears/Nose/Throat/Neck No dizziness 04/27/2017 Ears/Nose/Throat/Neck No headache 04/27/2017 Ears/Nose/Throat/Neck nasal discharge 04/27/2017 Ears/Nose/Throat/Neck No otalgia 04/27/2017 Ears/Nose/Throat/Neck sinus congestion 04/27/2017 Ears/Nose/Throat/Neck No sore throat 04/27/2017 Cardiovascular No chest pain/pressure 04/27/2017 Respiratory cough 04/27/2017 Respiratory No productive sputum 04/27/2017 Gastrointestinal No abdominal pain 04/27/2017 Gastrointestinal No constipation 04/27/2017 Gastrointestinal No diarrhea 04/27/2017 Genitourinary/Nephrology No dysuria 04/27/2017 Musculoskeletal back pain 04/27/2017 Dermatologic No rash 04/27/2017 Dermatologic No sores 04/27/2017 Neurologic No alteration of consciousness 04/27/2017 Psychiatric No depression 04/27/2017 Endocrine No dry or coarse skin 04/27/2017 Constitutional No recent illness 04/08/2017 Constitutional No chills 04/08/2017 Constitutional No diaphoresis 04/08/2017 Constitutional fatigue 04/08/2017 Constitutional No fever 04/08/2017 Constitutional No insomnia 04/08/2017 Constitutional malaise 04/08/2017 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 Ears/Nose/Throat/Neck No headache 04/08/2017 Ears/Nose/Throat/Neck No sore throat 04/08/2017 Ears/Nose/Throat/Neck No postnasal drip 04/08/2017 Cardiovascular No chest pain/pressure 04/08/2017 Respiratory No chest congestion 04/08/2017 Respiratory No chest tightness 04/08/2017 Respiratory No cigarette smoking 04/08/2017 Respiratory No cough 04/08/2017 Respiratory dyspnea on exertion 04/08/2017 Gastrointestinal No abdominal pain 04/08/2017 Gastrointestinal No constipation 04/08/2017 Gastrointestinal No diarrhea 04/08/2017 Gastrointestinal No nausea 04/08/2017 Gastrointestinal No vomiting 04/08/2017 Genitourinary/Nephrology No dysuria 04/08/2017 Genitourinary/Nephrology urinary urgency 04/08/2017 Genitourinary/Nephrology urinary frequency 04/08/2017 Genitourinary/Nephrology No urinary retention/hesitancy 04/08/2017 Musculoskeletal No back pain 04/08/2017 Musculoskeletal No bone pain 04/08/2017 Musculoskeletal No joint complaint 04/08/2017 Musculoskeletal No muscle weakness 04/08/2017 Musculoskeletal No neck pain 04/08/2017 Dermatologic No sores 04/08/2017 Neurologic No dizziness 04/08/2017 Neurologic No gait abnormality 04/08/2017 Neurologic memory loss 04/08/2017 Psychiatric No anxiety 04/08/2017 Psychiatric No depression 04/08/2017 Cardiovascular palpitations 04/08/2017 Constitutional No recent illness 03/03/2017 Constitutional No chills 03/03/2017 Constitutional No diaphoresis 03/03/2017 Constitutional No fever 03/03/2017 Eyes No eye erythema 03/03/2017 Ears/Nose/Throat/Neck No nasal discharge 03/03/2017 Cardiovascular No chest pain/pressure 03/03/2017 Cardiovascular No dyspnea 03/03/2017 Respiratory No cough 03/03/2017 Respiratory No dyspnea 03/03/2017 Musculoskeletal back pain 03/03/2017 Neurologic No alteration of consciousness 03/03/2017 Neurologic No mental status change 03/03/2017 Constitutional No recent illness 01/05/2017 Constitutional No anorexia 01/05/2017 Constitutional No night sweats 01/05/2017 Constitutional No chills 01/05/2017 Constitutional No diaphoresis 01/05/2017 Constitutional No fatigue 01/05/2017 Constitutional No fever 01/05/2017 Constitutional No insomnia 01/05/2017 Constitutional No malaise 01/05/2017 Eyes macular degeneration 01/05/2017 Ears/Nose/Throat/Neck No headache 01/05/2017 Ears/Nose/Throat/Neck No sore throat 01/05/2017 Ears/Nose/Throat/Neck No postnasal drip 01/05/2017 Cardiovascular No chest pain/pressure 01/05/2017 Respiratory No chest congestion 01/05/2017 Respiratory No chest tightness 01/05/2017 Respiratory No cigarette smoking 01/05/2017 Respiratory No cough 01/05/2017 Respiratory dyspnea on exertion 01/05/2017 Gastrointestinal No abdominal pain 01/05/2017 Gastrointestinal No constipation 01/05/2017 Gastrointestinal No diarrhea 01/05/2017 Gastrointestinal No nausea 01/05/2017 Gastrointestinal No vomiting 01/05/2017 Genitourinary/Nephrology No dysuria 01/05/2017 Genitourinary/Nephrology urinary urgency 01/05/2017 Genitourinary/Nephrology urinary frequency 01/05/2017 Genitourinary/Nephrology No urinary retention/hesitancy 01/05/2017 Musculoskeletal No back pain 01/05/2017 Musculoskeletal No bone pain 01/05/2017 Musculoskeletal No joint complaint 01/05/2017 Musculoskeletal No muscle weakness 01/05/2017 Musculoskeletal No neck pain 01/05/2017 Dermatologic No sores 01/05/2017 Neurologic No dizziness 01/05/2017 Neurologic No gait abnormality 01/05/2017 Neurologic memory loss 01/05/2017 Psychiatric No anxiety 01/05/2017 Psychiatric No depression 01/05/2017 Constitutional No recent illness 12/19/2016 Constitutional No chills 12/19/2016 Constitutional No diaphoresis 12/19/2016 Constitutional No fever 12/19/2016 Eyes No eye erythema 12/19/2016 Ears/Nose/Throat/Neck No nasal allergies 12/19/2016 Ears/Nose/Throat/Neck No nasal discharge 12/19/2016 Cardiovascular No chest pain/pressure 12/19/2016 Respiratory No dyspnea 12/19/2016 Musculoskeletal neck pain 12/19/2016 Dermatologic No rash 12/19/2016 Neurologic No alteration of consciousness 12/19/2016 Neurologic No mental status change 12/19/2016 Neurologic No headache 12/19/2016 Constitutional No recent illness 11/13/2016 Constitutional No anorexia 11/13/2016 Constitutional No night sweats 11/13/2016 Constitutional No chills 11/13/2016 Constitutional No diaphoresis 11/13/2016 Constitutional No fatigue 11/13/2016 Constitutional No fever 11/13/2016 Constitutional No insomnia 11/13/2016 Constitutional No malaise 11/13/2016 Eyes macular degeneration 11/13/2016 Ears/Nose/Throat/Neck No headache 11/13/2016 Ears/Nose/Throat/Neck No postnasal drip 11/13/2016 Ears/Nose/Throat/Neck No sore throat 11/13/2016 Cardiovascular No chest pain/pressure 11/13/2016 Respiratory No chest congestion 11/13/2016 Respiratory No chest tightness 11/13/2016 Respiratory No cigarette smoking 11/13/2016 Respiratory No cough 11/13/2016 Respiratory dyspnea on exertion 11/13/2016 Gastrointestinal No abdominal pain 11/13/2016 Gastrointestinal No constipation 11/13/2016 Gastrointestinal No diarrhea 11/13/2016 Gastrointestinal No nausea 11/13/2016 Gastrointestinal No vomiting 11/13/2016 Genitourinary/Nephrology No dysuria 11/13/2016 Genitourinary/Nephrology urinary urgency 11/13/2016 Genitourinary/Nephrology urinary frequency 11/13/2016 Genitourinary/Nephrology No urinary retention/hesitancy 11/13/2016 Musculoskeletal No back pain 11/13/2016 Musculoskeletal No bone pain 11/13/2016 Musculoskeletal No joint complaint 11/13/2016 Musculoskeletal No muscle weakness 11/13/2016 Musculoskeletal No neck pain 11/13/2016 Dermatologic No sores 11/13/2016 Neurologic No dizziness 11/13/2016 Neurologic No gait abnormality 11/13/2016 Neurologic memory loss 11/13/2016 Psychiatric No anxiety 11/13/2016 Psychiatric No depression 11/13/2016 Constitutional recent illness 10/16/2016 Constitutional No anorexia 10/16/2016 Constitutional No night sweats 10/16/2016 Constitutional chills 10/16/2016 Constitutional No diaphoresis 10/16/2016 Constitutional fatigue 10/16/2016 Constitutional No fever 10/16/2016 Constitutional No insomnia 10/16/2016 Constitutional malaise 10/16/2016 Eyes No eye discharge 10/16/2016 Eyes No eye erythema 10/16/2016 Ears/Nose/Throat/Neck No dizziness 10/16/2016 Ears/Nose/Throat/Neck No headache 10/16/2016 Cardiovascular No chest pain/pressure 10/16/2016 Respiratory No cough 10/16/2016 Gastrointestinal No abdominal pain 10/16/2016 Gastrointestinal No constipation 10/16/2016 Gastrointestinal No diarrhea 10/16/2016 Genitourinary/Nephrology urinary incontinence 10/16/2016 Musculoskeletal No joint complaint 10/16/2016 Dermatologic No rash 10/16/2016 Dermatologic No sores 10/16/2016 Neurologic No alteration of consciousness 10/16/2016 Psychiatric anxiety 10/16/2016 Psychiatric depression 10/16/2016 Constitutional recent illness 10/06/2016 Constitutional No anorexia 10/06/2016 Constitutional No night sweats 10/06/2016 Constitutional chills 10/06/2016 Constitutional No diaphoresis 10/06/2016 Constitutional fatigue 10/06/2016 Constitutional No fever 10/06/2016 Constitutional No insomnia 10/06/2016 Constitutional malaise 10/06/2016 Eyes No eye discharge 10/06/2016 Eyes No eye erythema 10/06/2016 Ears/Nose/Throat/Neck No dizziness 10/06/2016 Ears/Nose/Throat/Neck No headache 10/06/2016 Cardiovascular No chest pain/pressure 10/06/2016 Respiratory cough 10/06/2016 Gastrointestinal No abdominal pain 10/06/2016 Gastrointestinal No constipation 10/06/2016 Gastrointestinal No diarrhea 10/06/2016 Genitourinary/Nephrology urinary incontinence 10/06/2016 Musculoskeletal No joint complaint 10/06/2016 Dermatologic No rash 10/06/2016 Dermatologic No sores 10/06/2016 Neurologic No alteration of consciousness 10/06/2016 Psychiatric anxiety 10/06/2016 Psychiatric depression 10/06/2016 Constitutional recent illness 07/02/2016 Constitutional No anorexia 07/02/2016 Constitutional No night sweats 07/02/2016 Constitutional chills 07/02/2016 Constitutional No diaphoresis 07/02/2016 Constitutional fatigue 07/02/2016 Constitutional No fever 07/02/2016 Constitutional No insomnia 07/02/2016 Constitutional malaise 07/02/2016 Eyes No eye discharge 07/02/2016 Eyes No eye erythema 07/02/2016 Ears/Nose/Throat/Neck No dizziness 07/02/2016 Ears/Nose/Throat/Neck No headache 07/02/2016 Cardiovascular No chest pain/pressure 07/02/2016 Respiratory No cough 07/02/2016 Gastrointestinal No abdominal pain 07/02/2016 Gastrointestinal No constipation 07/02/2016 Gastrointestinal No diarrhea 07/02/2016 Genitourinary/Nephrology urinary incontinence 07/02/2016 Musculoskeletal No joint complaint 07/02/2016 Dermatologic No rash 07/02/2016 Dermatologic No sores 07/02/2016 Neurologic No alteration of consciousness 07/02/2016 Psychiatric anxiety 07/02/2016 Psychiatric depression 07/02/2016 Constitutional No recent illness 05/21/2016 Constitutional No night sweats 05/21/2016 Constitutional No chills 05/21/2016 Constitutional No diaphoresis 05/21/2016 Constitutional fatigue 05/21/2016 Constitutional No fever 05/21/2016 Constitutional No insomnia 05/21/2016 Constitutional No malaise 05/21/2016 Ears/Nose/Throat/Neck nasal allergies 05/21/2016 Ears/Nose/Throat/Neck nasal discharge 05/21/2016 Ears/Nose/Throat/Neck No otalgia 05/21/2016 Ears/Nose/Throat/Neck No sinus congestion 05/21/2016 Ears/Nose/Throat/Neck sore throat 05/21/2016 Cardiovascular No chest pain/pressure 05/21/2016 Respiratory No cough 05/21/2016 Gastrointestinal No abdominal pain 05/21/2016 Gastrointestinal No constipation 05/21/2016 Gastrointestinal No diarrhea 05/21/2016 Genitourinary/Nephrology No dysuria 05/21/2016 Genitourinary/Nephrology urinary incontinence 05/21/2016 Dermatologic No rash 05/21/2016 Dermatologic No sores 05/21/2016 Psychiatric No anxiety 05/21/2016 Psychiatric No depression 05/21/2016 Ears/Nose/Throat/Neck dysphagia 05/21/2016 Ears/Nose/Throat/Neck hoarseness 05/21/2016 Ears/Nose/Throat/Neck voice change 05/21/2016 Genitourinary/Nephrology urinary frequency 05/21/2016 Genitourinary/Nephrology urinary urgency 05/21/2016 Constitutional No anorexia 05/07/2016 Constitutional No night sweats 05/07/2016 Constitutional No diaphoresis 05/07/2016 Constitutional No fever 05/07/2016 Constitutional No insomnia 05/07/2016 Constitutional No weight loss 05/07/2016 Constitutional No weight gain 05/07/2016 Eyes No eye discharge 05/07/2016 Eyes No eye erythema 05/07/2016 Ears/Nose/Throat/Neck No dizziness 05/07/2016 Ears/Nose/Throat/Neck No headache 05/07/2016 Cardiovascular No chest pain/pressure 05/07/2016 Respiratory No cough 05/07/2016 Gastrointestinal No abdominal pain 05/07/2016 Gastrointestinal No constipation 05/07/2016 Gastrointestinal No diarrhea 05/07/2016 Genitourinary/Nephrology urinary incontinence 05/07/2016 Musculoskeletal No joint complaint 05/07/2016 Dermatologic No rash 05/07/2016 Dermatologic No sores 05/07/2016 Neurologic No alteration of consciousness 05/07/2016 Psychiatric anxiety 05/07/2016 Psychiatric depression 05/07/2016 Constitutional No recent illness 04/28/2016 Constitutional No anorexia 04/28/2016 Constitutional No night sweats 04/28/2016 Constitutional No diaphoresis 04/28/2016 Constitutional No chills 04/28/2016 Constitutional No fatigue 04/28/2016 Constitutional No insomnia 04/28/2016 Constitutional No malaise 04/28/2016 Constitutional No weight gain 04/28/2016 Constitutional No weight loss 04/28/2016 Constitutional No fever 04/28/2016 Eyes No eye discharge 04/28/2016 Eyes No eye erythema 04/28/2016 Ears/Nose/Throat/Neck nasal allergies 04/28/2016 Ears/Nose/Throat/Neck nasal discharge 04/28/2016 Ears/Nose/Throat/Neck No otalgia 04/28/2016 Ears/Nose/Throat/Neck No sinus congestion 04/28/2016 Ears/Nose/Throat/Neck sore throat 04/28/2016 Cardiovascular No chest pain/pressure 04/28/2016 Respiratory No cough 04/28/2016 Gastrointestinal No abdominal pain 04/28/2016 Gastrointestinal No constipation 04/28/2016 Gastrointestinal No diarrhea 04/28/2016 Dermatologic No rash 04/28/2016 Dermatologic No sores 04/28/2016 Genitourinary/Nephrology No dysuria 04/28/2016 Genitourinary/Nephrology urinary incontinence 04/28/2016 Constitutional recent illness 04/07/2016 Constitutional fatigue 04/07/2016 Constitutional No fever 04/07/2016 Constitutional malaise 04/07/2016 Eyes No eye discharge 04/07/2016 Eyes No eye erythema 04/07/2016 Ears/Nose/Throat/Neck No headache 04/07/2016 Cardiovascular No chest pain/pressure 04/07/2016 Respiratory No cough 04/07/2016 Gastrointestinal No abdominal pain 04/07/2016 Dermatologic No rash 04/07/2016 Dermatologic No sores 04/07/2016 Neurologic No alteration of consciousness 04/07/2016 Ears/Nose/Throat/Neck No dizziness 04/07/2016 Ears/Nose/Throat/Neck neck pain 04/07/2016 Ears/Nose/Throat/Neck No nasal allergies 04/07/2016 Cardiovascular No dyspnea 04/07/2016 Neurologic No mental status change 04/07/2016 Constitutional recent illness 04/03/2016 Constitutional No anorexia 04/03/2016 Constitutional No night sweats 04/03/2016 Constitutional chills 04/03/2016 Constitutional No diaphoresis 04/03/2016 Constitutional fatigue 04/03/2016 Constitutional No fever 04/03/2016 Constitutional No insomnia 04/03/2016 Constitutional malaise 04/03/2016 Constitutional No weight loss 04/03/2016 Constitutional No weight gain 04/03/2016 Eyes No eye discharge 04/03/2016 Eyes No eye erythema 04/03/2016 Ears/Nose/Throat/Neck No dizziness 04/03/2016 Ears/Nose/Throat/Neck No headache 04/03/2016 Cardiovascular No chest pain/pressure 04/03/2016 Respiratory No cough 04/03/2016 Gastrointestinal No abdominal pain 04/03/2016 Gastrointestinal No constipation 04/03/2016 Gastrointestinal No diarrhea 04/03/2016 Genitourinary/Nephrology urinary incontinence 04/03/2016 Musculoskeletal No joint complaint 04/03/2016 Dermatologic No rash 04/03/2016 Dermatologic No sores 04/03/2016 Neurologic No alteration of consciousness 04/03/2016 Psychiatric anxiety 04/03/2016 Psychiatric depression 04/03/2016 Constitutional No recent illness 01/31/2016 Constitutional No anorexia 01/31/2016 Constitutional No night sweats 01/31/2016 Constitutional No chills 01/31/2016 Constitutional No diaphoresis 01/31/2016 Constitutional No fatigue 01/31/2016 Constitutional No fever 01/31/2016 Constitutional No insomnia 01/31/2016 Constitutional No malaise 01/31/2016 Constitutional No weight loss 01/31/2016 Constitutional No weight gain 01/31/2016 Constitutional No obesity 01/31/2016 Neurologic paresthesia 01/31/2016 Musculoskeletal joint complaint 01/31/2016 Musculoskeletal swelling 01/31/2016 Musculoskeletal No bone fracture 01/31/2016 Dermatologic No rash 01/31/2016 Dermatologic sores 01/31/2016 Respiratory No chest congestion 01/31/2016 Respiratory No chest tightness 01/31/2016 Respiratory No cigarette smoking 01/31/2016 Respiratory No cough 01/31/2016 Respiratory dyspnea on exertion 01/31/2016 Respiratory No dyspnea 01/31/2016 Cardiovascular No chest pain/pressure 01/31/2016 Cardiovascular edema 01/31/2016 Cardiovascular No dyspnea 01/31/2016 Ears/Nose/Throat/Neck No nasal allergies 01/31/2016 Ears/Nose/Throat/Neck No nasal discharge 01/31/2016 Ears/Nose/Throat/Neck No otalgia 01/31/2016 Ears/Nose/Throat/Neck No otitis media 01/31/2016 Ears/Nose/Throat/Neck No sinus congestion 01/31/2016 Ears/Nose/Throat/Neck No sore throat 01/31/2016 Neurologic dizziness 01/31/2016 Neurologic headache 01/31/2016 Gastrointestinal No constipation 01/31/2016 Gastrointestinal No diarrhea 01/31/2016 Gastrointestinal No abdominal pain 01/31/2016 Gastrointestinal No nausea 01/31/2016 Genitourinary/Nephrology No dysuria 01/31/2016 Genitourinary/Nephrology No urinary urgency 01/31/2016 Genitourinary/Nephrology urinary frequency 01/31/2016 Genitourinary/Nephrology urinary incontinence 01/31/2016 Genitourinary/Nephrology No urinary retention/hesitancy 01/31/2016 Eyes No eye discharge 01/31/2016 Eyes No vision change 01/31/2016 Eyes No blindness 01/31/2016 Eyes No eye erythema 01/31/2016 Psychiatric No anxiety 01/31/2016 Psychiatric No depression 01/31/2016 Constitutional recent illness 11/29/2015 Constitutional No anorexia 11/29/2015 Constitutional No night sweats 11/29/2015 Constitutional No chills 11/29/2015 Constitutional No diaphoresis 11/29/2015 Constitutional No fatigue 11/29/2015 Constitutional No fever 11/29/2015 Constitutional No insomnia 11/29/2015 Constitutional No malaise 11/29/2015 Constitutional No weight loss 11/29/2015 Constitutional No weight gain 11/29/2015 Constitutional No obesity 11/29/2015 Eyes macular degeneration 11/29/2015 Ears/Nose/Throat/Neck No dental pain 11/29/2015 Ears/Nose/Throat/Neck No headache 11/29/2015 Ears/Nose/Throat/Neck nasal allergies 11/29/2015 Ears/Nose/Throat/Neck nasal discharge 11/29/2015 Ears/Nose/Throat/Neck otalgia 11/29/2015 Ears/Nose/Throat/Neck No otitis media 11/29/2015 Ears/Nose/Throat/Neck No sore throat 11/29/2015 Cardiovascular No chest pain/pressure 11/29/2015 Respiratory No chest congestion 11/29/2015 Respiratory No chest tightness 11/29/2015 Respiratory No cigarette smoking 11/29/2015 Respiratory No cough 11/29/2015 Gastrointestinal No abdominal pain 11/29/2015 Gastrointestinal No constipation 11/29/2015 Gastrointestinal No diarrhea 11/29/2015 Gastrointestinal No nausea 11/29/2015 Gastrointestinal No vomiting 11/29/2015 Genitourinary/Nephrology No dysuria 11/29/2015 Genitourinary/Nephrology urinary urgency 11/29/2015 Genitourinary/Nephrology urinary frequency 11/29/2015 Genitourinary/Nephrology urinary incontinence 11/29/2015 Genitourinary/Nephrology No urinary retention/hesitancy 11/29/2015 Musculoskeletal No back pain 11/29/2015 Musculoskeletal No bone pain 11/29/2015 Musculoskeletal No joint complaint 11/29/2015 Musculoskeletal No muscle weakness 11/29/2015 Musculoskeletal No neck pain 11/29/2015 Dermatologic No sores 11/29/2015 Neurologic No dizziness 11/29/2015 Neurologic No gait abnormality 11/29/2015 Neurologic memory loss 11/29/2015 Psychiatric No anxiety 11/29/2015 Psychiatric No depression 11/29/2015 Ears/Nose/Throat/Neck sinus congestion 11/29/2015 Constitutional No recent illness 10/01/2015 Constitutional No anorexia 10/01/2015 Constitutional No night sweats 10/01/2015 Constitutional No chills 10/01/2015 Constitutional No diaphoresis 10/01/2015 Constitutional No fatigue 10/01/2015 Constitutional No fever 10/01/2015 Constitutional No insomnia 10/01/2015 Constitutional No malaise 10/01/2015 Constitutional No weight loss 10/01/2015 Constitutional No weight gain 10/01/2015 Constitutional No obesity 10/01/2015 Eyes macular degeneration 10/01/2015 Ears/Nose/Throat/Neck No dental pain 10/01/2015 Ears/Nose/Throat/Neck No headache 10/01/2015 Ears/Nose/Throat/Neck No nasal allergies 10/01/2015 Ears/Nose/Throat/Neck No nasal discharge 10/01/2015 Ears/Nose/Throat/Neck No oral lesion 10/01/2015 Ears/Nose/Throat/Neck No oral pain 10/01/2015 Ears/Nose/Throat/Neck No otalgia 10/01/2015 Ears/Nose/Throat/Neck No otitis media 10/01/2015 Ears/Nose/Throat/Neck No postnasal drip 10/01/2015 Ears/Nose/Throat/Neck No sore throat 10/01/2015 Cardiovascular No chest pain/pressure 10/01/2015 Respiratory No chest congestion 10/01/2015 Respiratory No chest tightness 10/01/2015 Respiratory No cigarette smoking 10/01/2015 Respiratory No cough 10/01/2015 Respiratory dyspnea on exertion 10/01/2015 Gastrointestinal No abdominal pain 10/01/2015 Gastrointestinal No constipation 10/01/2015 Gastrointestinal No diarrhea 10/01/2015 Gastrointestinal No nausea 10/01/2015 Gastrointestinal No vomiting 10/01/2015 Genitourinary/Nephrology No dysuria 10/01/2015 Genitourinary/Nephrology urinary urgency 10/01/2015 Genitourinary/Nephrology urinary frequency 10/01/2015 Genitourinary/Nephrology urinary incontinence 10/01/2015 Genitourinary/Nephrology No urinary retention/hesitancy 10/01/2015 Musculoskeletal No back pain 10/01/2015 Musculoskeletal No bone pain 10/01/2015 Musculoskeletal No joint complaint 10/01/2015 Musculoskeletal No muscle weakness 10/01/2015 Musculoskeletal No neck pain 10/01/2015 Dermatologic No sores 10/01/2015 Neurologic No dizziness 10/01/2015 Neurologic No gait abnormality 10/01/2015 Neurologic memory loss 10/01/2015 Psychiatric No anxiety 10/01/2015 Psychiatric No depression 10/01/2015 Eyes macular degeneration 08/30/2015 Constitutional No recent illness 08/30/2015 Constitutional No anorexia 08/30/2015 Constitutional No night sweats 08/30/2015 Constitutional No chills 08/30/2015 Constitutional No diaphoresis 08/30/2015 Constitutional No fatigue 08/30/2015 Constitutional No fever 08/30/2015 Constitutional No insomnia 08/30/2015 Constitutional No malaise 08/30/2015 Constitutional No weight loss 08/30/2015 Constitutional No weight gain 08/30/2015 Constitutional No obesity 08/30/2015 Ears/Nose/Throat/Neck No headache 08/30/2015 Ears/Nose/Throat/Neck No dental pain 08/30/2015 Ears/Nose/Throat/Neck No oral pain 08/30/2015 Ears/Nose/Throat/Neck No oral lesion 08/30/2015 Ears/Nose/Throat/Neck No nasal discharge 08/30/2015 Ears/Nose/Throat/Neck No nasal allergies 08/30/2015 Ears/Nose/Throat/Neck No otalgia 08/30/2015 Ears/Nose/Throat/Neck No otitis media 08/30/2015 Ears/Nose/Throat/Neck No sore throat 08/30/2015 Ears/Nose/Throat/Neck No postnasal drip 08/30/2015 Cardiovascular No chest pain/pressure 08/30/2015 Respiratory No cigarette smoking 08/30/2015 Respiratory No chest tightness 08/30/2015 Respiratory No chest congestion 08/30/2015 Respiratory No cough 08/30/2015 Respiratory dyspnea on exertion 08/30/2015 Gastrointestinal No constipation 08/30/2015 Gastrointestinal No diarrhea 08/30/2015 Genitourinary/Nephrology No dysuria 08/30/2015 Genitourinary/Nephrology urinary incontinence 08/30/2015 Genitourinary/Nephrology urinary frequency 08/30/2015 Genitourinary/Nephrology urinary urgency 08/30/2015 Genitourinary/Nephrology No urinary retention/hesitancy 08/30/2015 Musculoskeletal No joint complaint 08/30/2015 Musculoskeletal No muscle weakness 08/30/2015 Musculoskeletal No bone pain 08/30/2015 Musculoskeletal No back pain 08/30/2015 Musculoskeletal No neck pain 08/30/2015 Dermatologic No sores 08/30/2015 Dermatologic pigmentation change 08/30/2015 Cardiovascular edema 08/30/2015 Psychiatric No anxiety 08/30/2015 Psychiatric No depression 08/30/2015 Neurologic memory loss 08/30/2015 Neurologic No dizziness 08/30/2015 Neurologic No gait abnormality 08/30/2015 Gastrointestinal dysphagia 08/30/2015 Gastrointestinal No abdominal pain 08/30/2015 Gastrointestinal No nausea 08/30/2015 Gastrointestinal No vomiting 08/30/2015 Constitutional No recent illness 07/31/2015 Constitutional No anorexia 07/31/2015 Constitutional No night sweats 07/31/2015 Constitutional No chills 07/31/2015 Constitutional No diaphoresis 07/31/2015 Constitutional No fatigue 07/31/2015 Constitutional No fever 07/31/2015 Eyes No eye discharge 07/31/2015 Eyes No eye erythema 07/31/2015 Ears/Nose/Throat/Neck No dizziness 07/31/2015 Ears/Nose/Throat/Neck No nasal discharge 07/31/2015 Ears/Nose/Throat/Neck No sore throat 07/31/2015 Ears/Nose/Throat/Neck No sinus congestion 07/31/2015 Cardiovascular No chest pain/pressure 07/31/2015 Cardiovascular No dyspnea 07/31/2015 Respiratory No chest congestion 07/31/2015 Respiratory No cough 07/31/2015 Gastrointestinal No abdominal pain 07/31/2015 Gastrointestinal constipation 07/31/2015 Gastrointestinal No diarrhea 07/31/2015 Gastrointestinal No nausea 07/31/2015 Gastrointestinal No vomiting 07/31/2015 Genitourinary/Nephrology urinary urgency 07/31/2015 Genitourinary/Nephrology urinary frequency 07/31/2015 Genitourinary/Nephrology urinary incontinence 07/31/2015 Musculoskeletal No joint complaint 07/31/2015 Dermatologic No rash 07/31/2015 Neurologic No dizziness 07/31/2015 Neurologic No headache 07/31/2015 Neurologic memory loss 07/31/2015 Neurologic No neck pain 07/31/2015 Neurologic No syncope 07/31/2015 Psychiatric anxiety 07/31/2015 Psychiatric No depression 07/31/2015 Constitutional No chills 07/03/2015 Eyes eye trauma 07/03/2015 Ears/Nose/Throat/Neck dizziness 07/03/2015 Cardiovascular No chest pain/pressure 07/03/2015 Cardiovascular No dyspnea 07/03/2015 Cardiovascular edema 07/03/2015 Respiratory No aspiration 07/03/2015 Respiratory No chest congestion 07/03/2015 Respiratory No chest tightness 07/03/2015 Respiratory No cough 07/03/2015 Gastrointestinal No abdominal pain 07/03/2015 Gastrointestinal No constipation 07/03/2015 Gastrointestinal No diarrhea 07/03/2015 Dermatologic pigmentation change 07/03/2015 Neurologic dizziness 07/03/2015 Neurologic No headache 07/03/2015 Psychiatric No anxiety 07/03/2015 Hematologic/Lymphatic abnormal ecchymoses 07/03/2015 Hematologic/Lymphatic abnormal bleeding and bruising 07/03/2015 Musculoskeletal stiffness 07/03/2015 Musculoskeletal No swelling 07/03/2015 Musculoskeletal No muscle weakness 07/03/2015 Musculoskeletal No myalgias 07/03/2015 Constitutional No chills 04/10/2015 Eyes eye trauma 04/10/2015 Ears/Nose/Throat/Neck dizziness 04/10/2015 Cardiovascular No chest pain/pressure 04/10/2015 Cardiovascular No dyspnea 04/10/2015 Cardiovascular edema 04/10/2015 Respiratory No aspiration 04/10/2015 Respiratory No chest congestion 04/10/2015 Respiratory No chest tightness 04/10/2015 Respiratory No cough 04/10/2015 Gastrointestinal No diarrhea 04/10/2015 Gastrointestinal No constipation 04/10/2015 Gastrointestinal No abdominal pain 04/10/2015 Dermatologic pigmentation change 04/10/2015 Neurologic No headache 04/10/2015 Neurologic dizziness 04/10/2015 Psychiatric No anxiety 04/10/2015 Hematologic/Lymphatic abnormal bleeding and bruising 04/10/2015 Hematologic/Lymphatic abnormal ecchymoses 04/10/2015 Constitutional No anorexia 01/11/2015 Constitutional No chills 01/11/2015 Constitutional No diaphoresis 01/11/2015 Constitutional No fatigue 01/11/2015 Constitutional No fever 01/11/2015 Constitutional No night sweats 01/11/2015 Constitutional No recent illness 01/11/2015 Eyes No eye discharge 01/11/2015 Eyes No eye erythema 01/11/2015 Ears/Nose/Throat/Neck No dizziness 01/11/2015 Ears/Nose/Throat/Neck No nasal discharge 01/11/2015 Ears/Nose/Throat/Neck No sinus congestion 01/11/2015 Ears/Nose/Throat/Neck No sore throat 01/11/2015 Cardiovascular No chest pain/pressure 01/11/2015 Cardiovascular No dyspnea 01/11/2015 Respiratory No chest congestion 01/11/2015 Respiratory No cough 01/11/2015 Gastrointestinal No abdominal pain 01/11/2015 Gastrointestinal constipation 01/11/2015 Gastrointestinal No diarrhea 01/11/2015 Gastrointestinal No nausea 01/11/2015 Gastrointestinal No vomiting 01/11/2015 Musculoskeletal No joint complaint 01/11/2015 Dermatologic No rash 01/11/2015 Psychiatric anxiety 01/11/2015 Psychiatric No depression 01/11/2015 Neurologic No dizziness 01/11/2015 Neurologic No headache 01/11/2015 Neurologic No neck pain 01/11/2015 Neurologic No syncope 01/11/2015 Genitourinary/Nephrology urinary urgency 01/11/2015 Genitourinary/Nephrology urinary frequency 01/11/2015 Genitourinary/Nephrology urinary incontinence 01/11/2015 Neurologic memory loss 01/11/2015 Physical Exam Exam Name System Name Item Name Status Result Effective Dates Notes Full Exam - General 1994 Constitutional general appearance Overall: well developed 12/28/2018 None Full Exam - General 1994 Constitutional general appearance Overall: in no acute distress 12/28/2018 None Full Exam - General 1994 Constitutional general appearance Overall: well nourished 12/28/2018 None Full Exam - General 1994 Eyes conjunctiva/eyelids Overall: conjunctiva clear 12/28/2018 None Full Exam - General 1994 Eyes conjunctiva/eyelids Overall: cornea clear 12/28/2018 None Full Exam - General 1994 Eyes conjunctiva/eyelids Overall: eyelids normal 12/28/2018 None Full Exam - General 1994 Ears/Nose/Throat lips/teeth/gingiva Overall: benign lips 12/28/2018 None Full Exam - General 1994 Ears/Nose/Throat oral cavity/pharynx/larynx Overall: oral mucosa clear 12/28/2018 None Full Exam - General 1994 Respiratory auscultation Overall: breath sounds clear bilaterally 12/28/2018 None Full Exam - General 1994 Respiratory respiratory effort/rhythm Overall: no retractions 12/28/2018 None Full Exam - General 1994 Respiratory respiratory effort/rhythm Overall: normal rate 12/28/2018 None Full Exam - General 1994 Cardiovascular auscultation of heart Overall: regular rate 12/28/2018 None Full Exam - General 1994 Cardiovascular auscultation of heart Overall: normal heart sounds 12/28/2018 None Full Exam - General 1994 Abdomen abdominal exam Overall: normal bowel sounds 12/28/2018 None Full Exam - General 1994 Musculoskeletal head and neck Overall: head atraumatic 12/28/2018 None Full Exam - General 1994 Neurologic cranial nerves Overall: crainial nerves 2 - 12 grossly intact 12/28/2018 None Full Exam - General 1994 Psychiatric orientation/consciousness Overall: oriented to person, place and time 12/28/2018 None Full Exam - General 1994 Psychiatric mood and affect Overall: normal mood and affect 12/28/2018 None Full Exam - General 1994 Abdomen abdominal exam Overall: no tenderness 12/28/2018 None Full Exam - General 1994 Constitutional general appearance Overall: well developed 12/24/2018 None Full Exam - General 1994 Constitutional general appearance Overall: in no acute distress 12/24/2018 None Full Exam - General 1994 Constitutional general appearance Overall: well nourished 12/24/2018 None Full Exam - General 1994 Eyes conjunctiva/eyelids Overall: conjunctiva clear 12/24/2018 None Full Exam - General 1994 Eyes conjunctiva/eyelids Overall: cornea clear 12/24/2018 None Full Exam - General 1994 Eyes conjunctiva/eyelids Overall: eyelids normal 12/24/2018 None Full Exam - General 1994 Ears/Nose/Throat lips/teeth/gingiva Overall: benign lips 12/24/2018 None Full Exam - General 1994 Ears/Nose/Throat oral cavity/pharynx/larynx Overall: oral mucosa clear 12/24/2018 None Full Exam - General 1994 Respiratory auscultation Overall: breath sounds clear bilaterally 12/24/2018 None Full Exam - General 1994 Respiratory respiratory effort/rhythm Overall: no retractions 12/24/2018 None Full Exam - General 1994 Respiratory respiratory effort/rhythm Overall: normal rate 12/24/2018 None Full Exam - General 1994 Cardiovascular auscultation of heart Overall: regular rate 12/24/2018 None Full Exam - General 1994 Cardiovascular auscultation of heart Overall: normal heart sounds 12/24/2018 None Full Exam - General 1994 Musculoskeletal head and neck Overall: head atraumatic 12/24/2018 None Full Exam - General 1994 Neurologic cranial nerves Overall: crainial nerves 2 - 12 grossly intact 12/24/2018 None Full Exam - General 1994 Psychiatric orientation/consciousness Overall: oriented to person, place and time 12/24/2018 None Full Exam - General 1994 Psychiatric mood and affect Overall: normal mood and affect 12/24/2018 None Full Exam - General 1994 Abdomen abdominal exam Overall: normal bowel sounds 12/24/2018 None Full Exam - General 1994 Abdomen abdominal exam Lower quadrant: tender to palpation 12/24/2018 None Full Exam - General 1994 Abdomen abdominal exam Lower quadrant: dull pain 12/24/2018 None Full Exam - General 1994 Abdomen abdominal exam Lower quadrant: no guarding 12/24/2018 None Full Exam - General 1994 Abdomen abdominal exam Lower quadrant: no rebound tenderness 12/24/2018 None Full Exam - General 1994 Abdomen abdominal exam Lower quadrant: soft 12/24/2018 None Full Exam - General 1994 Abdomen abdominal exam Upper quadrant: non-tender to palpation 12/24/2018 None Full Exam - General 1994 Abdomen abdominal exam Upper quadrant: no guarding 12/24/2018 None Full Exam - General 1994 Abdomen abdominal exam Upper quadrant: no rebound tenderness 12/24/2018 None Full Exam - General 1994 Abdomen abdominal exam Upper quadrant: soft 12/24/2018 None Full Exam - General 1994 Constitutional general appearance Overall: well developed 12/21/2018 None Full Exam - General 1994 Constitutional general appearance Overall: in no acute distress 12/21/2018 None Full Exam - General 1994 Constitutional general appearance Overall: well nourished 12/21/2018 None Full Exam - General 1994 Eyes conjunctiva/eyelids Overall: conjunctiva clear 12/21/2018 None Full Exam - General 1994 Eyes conjunctiva/eyelids Overall: cornea clear 12/21/2018 None Full Exam - General 1994 Eyes conjunctiva/eyelids Overall: eyelids normal 12/21/2018 None Full Exam - General 1994 Ears/Nose/Throat lips/teeth/gingiva Overall: benign lips 12/21/2018 None Full Exam - General 1994 Ears/Nose/Throat oral cavity/pharynx/larynx Overall: oral mucosa clear 12/21/2018 None Full Exam - General 1994 Respiratory respiratory effort/rhythm Overall: no retractions 12/21/2018 None Full Exam - General 1994 Respiratory respiratory effort/rhythm Overall: normal rate 12/21/2018 None Full Exam - General 1994 Cardiovascular auscultation of heart Overall: regular rate 12/21/2018 None Full Exam - General 1994 Cardiovascular auscultation of heart Overall: normal heart sounds 12/21/2018 None Full Exam - General 1994 Musculoskeletal head and neck Overall: head atraumatic 12/21/2018 None Full Exam - General 1994 Neurologic cranial nerves Overall: crainial nerves 2 - 12 grossly intact 12/21/2018 None Full Exam - General 1994 Psychiatric orientation/consciousness Overall: oriented to person, place and time 12/21/2018 None Full Exam - General 1994 Psychiatric mood and affect Overall: normal mood and affect 12/21/2018 None Full Exam - General 1994 Constitutional general appearance Overall: well developed 11/23/2018 None Full Exam - General 1994 Constitutional general appearance Overall: in no acute distress 11/23/2018 None Full Exam - General 1994 Constitutional general appearance Overall: well nourished 11/23/2018 None Full Exam - General 1994 Eyes conjunctiva/eyelids Overall: conjunctiva clear 11/23/2018 None Full Exam - General 1994 Eyes conjunctiva/eyelids Overall: cornea clear 11/23/2018 None Full Exam - General 1994 Eyes conjunctiva/eyelids Overall: eyelids normal 11/23/2018 None Full Exam - General 1994 Ears/Nose/Throat lips/teeth/gingiva Overall: benign lips 11/23/2018 None Full Exam - General 1994 Ears/Nose/Throat oral cavity/pharynx/larynx Overall: oral mucosa clear 11/23/2018 None Full Exam - General 1995 Ears/Nose/Throat oral cavity/pharynx/larynx Overall: oropharyngeal mucosa clear 11/23/2018 None Full Exam - General 1994 Respiratory auscultation Overall: breath sounds clear bilaterally 11/23/2018 None Full Exam - General 1994 Respiratory respiratory effort/rhythm Overall: no retractions 11/23/2018 None Full Exam - General 1994 Respiratory respiratory effort/rhythm Overall: normal rate 11/23/2018 None Full Exam - General 1994 Cardiovascular auscultation of heart Overall: regular rate 11/23/2018 None Full Exam - General 1994 Cardiovascular auscultation of heart Overall: normal heart sounds 11/23/2018 None Full Exam - General 1994 Musculoskeletal head and neck Overall: head atraumatic 11/23/2018 None Full Exam - General 1994 Neurologic cranial nerves Overall: crainial nerves 2 - 12 grossly intact 11/23/2018 None Full Exam - General 1994 Psychiatric orientation/consciousness Overall: oriented to person, place and time 11/23/2018 None Full Exam - General 1994 Psychiatric mood and affect Overall: normal mood and affect 11/23/2018 None Full Exam - General 1994 Psychiatric appearance Overall: well-groomed, good eye contact 11/23/2018 None Full Exam - General 1994 Constitutional general appearance Overall: well developed 11/01/2018 None Full Exam - General 1994 Constitutional general appearance Overall: in no acute distress 11/01/2018 None Full Exam - General 1994 Constitutional general appearance Overall: well nourished 11/01/2018 None Full Exam - General 1994 Constitutional general appearance Hygiene/Attention to Grooming: good hygiene 11/01/2018 None Full Exam - General 1994 Eyes conjunctiva/eyelids Overall: conjunctiva clear 11/01/2018 None Full Exam - General 1994 Eyes conjunctiva/eyelids Overall: cornea clear 11/01/2018 None Full Exam - General 1994 Eyes conjunctiva/eyelids Overall: eyelids normal 11/01/2018 None Full Exam - General 1994 Eyes pupils and irises Overall: pupils equal, round, reactive to light and accomodation 11/01/2018 None Full Exam - General 1994 Ears/Nose/Throat otoscopic exam Overall: tympanic membranes clear 11/01/2018 None Full Exam - General 1994 Ears/Nose/Throat lips/teeth/gingiva Overall: benign lips 11/01/2018 None Full Exam - General 1994 Ears/Nose/Throat oral cavity/pharynx/larynx Overall: oral mucosa clear 11/01/2018 None Full Exam - General 1994 Respiratory auscultation Overall: breath sounds clear bilaterally 11/01/2018 None Full Exam - General 1994 Respiratory respiratory effort/rhythm Overall: no retractions 11/01/2018 None Full Exam - General 1994 Respiratory respiratory effort/rhythm Overall: normal rate 11/01/2018 None Full Exam - General 1994 Cardiovascular extremities Overall: no clubbing 11/01/2018 None Full Exam - General 1994 Cardiovascular auscultation of heart Overall: regular rate 11/01/2018 None Full Exam - General 1994 Cardiovascular auscultation of heart Overall: normal heart sounds 11/01/2018 None Full Exam - General 1994 Abdomen abdominal exam Overall: no tenderness 11/01/2018 None Full Exam - General 1994 Abdomen abdominal exam Overall: normal bowel sounds 11/01/2018 None Full Exam - General 1994 Lymphatic neck nodes Overall: anterior cervical chain benign 11/01/2018 None Full Exam - General 1994 Lymphatic neck nodes Overall: posterior cervical chain benign 11/01/2018 None Full Exam - General 1994 Neurologic cranial nerves Overall: crainial nerves 2 - 12 grossly intact 11/01/2018 None Full Exam - General 1994 Psychiatric orientation/consciousness Overall: oriented to person, place and time 11/01/2018 None Full Exam - General 1994 Psychiatric mood and affect Overall: normal mood and affect 11/01/2018 None Full Exam - General 1994 Psychiatric appearance Overall: well-groomed, good eye contact 11/01/2018 None Full Exam - Cardiology Genitourinary urethra Overall: no masses 11/01/2018 None Full Exam - Cardiology Genitourinary urethra Overall: good tone 11/01/2018 None Full Exam - Cardiology Genitourinary urethra Overall: no discharge 11/01/2018 None Full Exam - Cardiology Genitourinary bladder Overall: no tenderness 11/01/2018 None Full Exam - Cardiology Genitourinary labia and vagina Overall: no discharge 11/01/2018 None Full Exam - Cardiology Genitourinary labia and vagina Overall: no lesions 11/01/2018 None Full Exam - Cardiology Genitourinary labia and vagina Vaginal discharge: absent 11/01/2018 no s/s of bleeding upon inspection Full Exam - General 1994 Constitutional general appearance Overall: well developed 09/30/2018 None Full Exam - General 1994 Constitutional general appearance Overall: in no acute distress 09/30/2018 None Full Exam - General 1994 Constitutional general appearance Overall: well nourished 09/30/2018 None Full Exam - General 1994 Constitutional general appearance Hygiene/Attention to Grooming: good hygiene 09/30/2018 None Full Exam - General 1994 Eyes conjunctiva/eyelids Overall: conjunctiva clear 09/30/2018 None Full Exam - General 1994 Eyes conjunctiva/eyelids Overall: cornea clear 09/30/2018 None Full Exam - General 1994 Eyes conjunctiva/eyelids Overall: eyelids normal 09/30/2018 None Full Exam - General 1994 Eyes pupils and irises Overall: pupils equal, round, reactive to light and accomodation 09/30/2018 None Full Exam - General 1994 Ears/Nose/Throat otoscopic exam Overall: tympanic membranes clear 09/30/2018 None Full Exam - General 1994 Ears/Nose/Throat lips/teeth/gingiva Overall: benign lips 09/30/2018 None Full Exam - General 1994 Ears/Nose/Throat oral cavity/pharynx/larynx Overall: oral mucosa clear 09/30/2018 None Full Exam - General 1994 Respiratory auscultation Overall: breath sounds clear bilaterally 09/30/2018 None Full Exam - General 1994 Respiratory respiratory effort/rhythm Overall: no retractions 09/30/2018 None Full Exam - General 1994 Respiratory respiratory effort/rhythm Overall: normal rate 09/30/2018 None Full Exam - General 1994 Cardiovascular extremities Overall: no clubbing 09/30/2018 None Full Exam - General 1994 Cardiovascular auscultation of heart Overall: regular rate 09/30/2018 None Full Exam - General 1994 Cardiovascular auscultation of heart Overall: normal heart sounds 09/30/2018 None Full Exam - General 1994 Abdomen abdominal exam Overall: no tenderness 09/30/2018 None Full Exam - General 1994 Abdomen abdominal exam Overall: normal bowel sounds 09/30/2018 None Full Exam - General 1994 Lymphatic neck nodes Overall: anterior cervical chain benign 09/30/2018 None Full Exam - General 1994 Lymphatic neck nodes Overall: posterior cervical chain benign 09/30/2018 None Full Exam - General 1994 Neurologic cranial nerves Overall: crainial nerves 2 - 12 grossly intact 09/30/2018 None Full Exam - General 1994 Psychiatric orientation/consciousness Overall: oriented to person, place and time 09/30/2018 None Full Exam - General 1994 Psychiatric mood and affect Overall: normal mood and affect 09/30/2018 None Full Exam - General 1994 Psychiatric appearance Overall: well-groomed, good eye contact 09/30/2018 None Full Exam - General 1994 Constitutional general appearance Overall: well developed 07/20/2018 None Full Exam - General 1994 Constitutional general appearance Overall: in no acute distress 07/20/2018 None Full Exam - General 1994 Constitutional general appearance Overall: well nourished 07/20/2018 None Full Exam - General 1994 Constitutional general appearance Hygiene/Attention to Grooming: good hygiene 07/20/2018 None Full Exam - General 1994 Eyes conjunctiva/eyelids Overall: conjunctiva clear 07/20/2018 None Full Exam - General 1994 Eyes conjunctiva/eyelids Overall: cornea clear 07/20/2018 None Full Exam - General 1994 Eyes conjunctiva/eyelids Overall: eyelids normal 07/20/2018 None Full Exam - General 1994 Eyes pupils and irises Overall: pupils equal, round, reactive to light and accomodation 07/20/2018 None Full Exam - General 1994 Ears/Nose/Throat otoscopic exam Overall: tympanic membranes clear 07/20/2018 None Full Exam - General 1994 Ears/Nose/Throat lips/teeth/gingiva Overall: benign lips 07/20/2018 None Full Exam - General 1994 Ears/Nose/Throat oral cavity/pharynx/larynx Overall: oral mucosa clear 07/20/2018 None Full Exam - General 1994 Respiratory auscultation Overall: breath sounds clear bilaterally 07/20/2018 None Full Exam - General 1994 Respiratory respiratory effort/rhythm Overall: no retractions 07/20/2018 None Full Exam - General 1994 Respiratory respiratory effort/rhythm Overall: normal rate 07/20/2018 None Full Exam - General 1994 Cardiovascular extremities Overall: no clubbing 07/20/2018 None Full Exam - General 1994 Cardiovascular auscultation of heart Overall: regular rate 07/20/2018 None Full Exam - General 1994 Cardiovascular auscultation of heart Overall: normal heart sounds 07/20/2018 None Full Exam - General 1994 Abdomen abdominal exam Overall: no tenderness 07/20/2018 None Full Exam - General 1994 Abdomen abdominal exam Overall: normal bowel sounds 07/20/2018 None Full Exam - General 1994 Lymphatic neck nodes Overall: anterior cervical chain benign 07/20/2018 None Full Exam - General 1994 Lymphatic neck nodes Overall: posterior cervical chain benign 07/20/2018 None Full Exam - General 1994 Neurologic cranial nerves Overall: crainial nerves 2 - 12 grossly intact 07/20/2018 None Full Exam - General 1994 Psychiatric orientation/consciousness Overall: oriented to person, place and time 07/20/2018 None Full Exam - General 1994 Psychiatric mood and affect Overall: normal mood and affect 07/20/2018 None Full Exam - General 1994 Psychiatric appearance Overall: well-groomed, good eye contact 07/20/2018 None Full Exam - General 1994 Constitutional general appearance Overall: well developed 06/29/2018 None Full Exam - General 1994 Constitutional general appearance Overall: in no acute distress 06/29/2018 None Full Exam - General 1994 Constitutional general appearance Overall: well nourished 06/29/2018 None Full Exam - General 1994 Constitutional general appearance Hygiene/Attention to Grooming: good hygiene 06/29/2018 None Full Exam - General 1994 Eyes conjunctiva/eyelids Overall: conjunctiva clear 06/29/2018 None Full Exam - General 1994 Eyes conjunctiva/eyelids Overall: cornea clear 06/29/2018 None Full Exam - General 1994 Eyes conjunctiva/eyelids Overall: eyelids normal 06/29/2018 None Full Exam - General 1994 Eyes pupils and irises Overall: pupils equal, round, reactive to light and accomodation 06/29/2018 None Full Exam - General 1994 Ears/Nose/Throat otoscopic exam Overall: tympanic membranes clear 06/29/2018 None Full Exam - General 1994 Ears/Nose/Throat lips/teeth/gingiva Overall: benign lips 06/29/2018 None Full Exam - General 1994 Ears/Nose/Throat oral cavity/pharynx/larynx Overall: oral mucosa clear 06/29/2018 None Full Exam - General 1994 Respiratory auscultation Overall: breath sounds clear bilaterally 06/29/2018 None Full Exam - General 1994 Respiratory respiratory effort/rhythm Overall: no retractions 06/29/2018 None Full Exam - General 1994 Respiratory respiratory effort/rhythm Overall: normal rate 06/29/2018 None Full Exam - General 1994 Cardiovascular extremities Overall: no clubbing 06/29/2018 None Full Exam - General 1994 Cardiovascular auscultation of heart Overall: regular rate 06/29/2018 None Full Exam - General 1994 Cardiovascular auscultation of heart Overall: normal heart sounds 06/29/2018 None Full Exam - General 1994 Abdomen abdominal exam Overall: no tenderness 06/29/2018 None Full Exam - General 1994 Abdomen abdominal exam Overall: normal bowel sounds 06/29/2018 None Full Exam - General 1994 Neurologic cranial nerves Overall: crainial nerves 2 - 12 grossly intact 06/29/2018 None Full Exam - General 1994 Psychiatric orientation/consciousness Overall: oriented to person, place and time 06/29/2018 None Full Exam - General 1994 Psychiatric mood and affect Overall: normal mood and affect 06/29/2018 None Full Exam - General 1994 Psychiatric appearance Overall: well-groomed, good eye contact 06/29/2018 None Full Exam - General 1994 Lymphatic neck nodes Overall: anterior cervical chain benign 06/29/2018 None Full Exam - General 1994 Lymphatic neck nodes Overall: posterior cervical chain benign 06/29/2018 None Full Exam - General 1994 Constitutional general appearance Development: well developed 06/08/2018 None Full Exam - General 1994 Constitutional general appearance Development: appears stated age 1006/08/2018 None Full Exam - General 1994 Constitutional general appearance Hygiene/Attention to Grooming: good hygiene 06/08/2018 None Full Exam - General 1994 Eyes conjunctiva/eyelids Overall: conjunctiva clear 06/08/2018 None Full Exam - General 1994 Eyes conjunctiva/eyelids Overall: cornea clear 06/08/2018 None Full Exam - General 1994 Eyes conjunctiva/eyelids Overall: eyelids normal 06/08/2018 None Full Exam - General 1994 Eyes pupils and irises Overall: pupils equal, round, reactive to light and accomodation 06/08/2018 None Full Exam - General 1994 Ears/Nose/Throat otoscopic exam Overall: external auditory canals clear 06/08/2018 None Full Exam - General 1994 Ears/Nose/Throat otoscopic exam Overall: tympanic membranes clear 06/08/2018 None Full Exam - General 1994 Ears/Nose/Throat lips/teeth/gingiva Overall: benign lips 06/08/2018 None Full Exam - General 1994 Ears/Nose/Throat lips/teeth/gingiva Overall: normal dentition 06/08/2018 None Full Exam - General 1994 Ears/Nose/Throat oral cavity/pharynx/larynx Overall: oral mucosa clear 06/08/2018 None Full Exam - General 1994 Ears/Nose/Throat oral cavity/pharynx/larynx Overall: oropharyngeal mucosa clear 06/08/2018 None Full Exam - General 1994 Ears/Nose/Throat oral cavity/pharynx/larynx Overall: hypopharynx benign 06/08/2018 None Full Exam - General 1994 Ears/Nose/Throat oral cavity/pharynx/larynx Overall: no masses 06/08/2018 None Full Exam - General 1994 Respiratory auscultation Overall: breath sounds clear bilaterally 06/08/2018 None Full Exam - General 1994 Respiratory respiratory effort/rhythm Overall: no retractions 06/08/2018 None Full Exam - General 1994 Respiratory respiratory effort/rhythm Overall: normal rate 06/08/2018 None Full Exam - General 1994 Cardiovascular extremities Overall: no clubbing 06/08/2018 None Full Exam - General 1994 Cardiovascular extremities Edema present: pitting 06/08/2018 None Full Exam - General 1994 Cardiovascular extremities Edema present: severity 1+ - 4+: 1+ 06/08/2018 None Full Exam - General 1994 Cardiovascular auscultation of heart Overall: regular rate 06/08/2018 None Full Exam - General 1994 Cardiovascular auscultation of heart Overall: normal heart sounds 06/08/2018 None Full Exam - General 1994 Abdomen abdominal exam Overall: no tenderness 06/08/2018 None Full Exam - General 1994 Abdomen abdominal exam Overall: normal bowel sounds 06/08/2018 None Full Exam - General 1994 Lymphatic neck nodes Overall: anterior cervical chain benign 06/08/2018 None Full Exam - General 1994 Lymphatic neck nodes Overall: posterior cervical chain benign 06/08/2018 None Full Exam - General 1994 Integument inspection of skin Overall: few scattered moles, no gross abnormalities 06/08/2018 None Full Exam - General 1994 Neurologic deep tendon reflexes Overall: deep tendon reflexes intact 06/08/2018 None Full Exam - General 1994 Neurologic cranial nerves Overall: crainial nerves 2 - 12 grossly intact 06/08/2018 None Full Exam - General 1994 Psychiatric orientation/consciousness Overall: oriented to person, place and time 06/08/2018 None Full Exam - General 1994 Psychiatric mood and affect Overall: normal mood and affect 06/08/2018 None Full Exam - General 1994 Constitutional general appearance Assistive Device: cane 06/08/2018 None Full Exam - General 1994 Constitutional general appearance Development: well developed 05/24/2018 None Full Exam - General 1994 Constitutional general appearance Development: appears stated age 1005/24/2018 None Full Exam - General 1994 Constitutional general appearance Hygiene/Attention to Grooming: good hygiene 05/24/2018 None Full Exam - General 1994 Eyes conjunctiva/eyelids Overall: conjunctiva clear 05/24/2018 None Full Exam - General 1994 Eyes conjunctiva/eyelids Overall: cornea clear 05/24/2018 None Full Exam - General 1994 Eyes conjunctiva/eyelids Overall: eyelids normal 05/24/2018 None Full Exam - General 1994 Eyes pupils and irises Overall: pupils equal, round, reactive to light and accomodation 05/24/2018 None Full Exam - General 1994 Ears/Nose/Throat otoscopic exam Overall: external auditory canals clear 05/24/2018 None Full Exam - General 1994 Ears/Nose/Throat otoscopic exam Overall: tympanic membranes clear 05/24/2018 None Full Exam - General 1994 Ears/Nose/Throat lips/teeth/gingiva Overall: benign lips 05/24/2018 None Full Exam - General 1994 Ears/Nose/Throat lips/teeth/gingiva Overall: normal dentition 05/24/2018 None Full Exam - General 1994 Ears/Nose/Throat oral cavity/pharynx/larynx Overall: oral mucosa clear 05/24/2018 None Full Exam - General 1994 Ears/Nose/Throat oral cavity/pharynx/larynx Overall: oropharyngeal mucosa clear 05/24/2018 None Full Exam - General 1994 Ears/Nose/Throat oral cavity/pharynx/larynx Overall: hypopharynx benign 05/24/2018 None Full Exam - General 1994 Ears/Nose/Throat oral cavity/pharynx/larynx Overall: no masses 05/24/2018 None Full Exam - General 1994 Respiratory auscultation Overall: breath sounds clear bilaterally 05/24/2018 None Full Exam - General 1994 Respiratory respiratory effort/rhythm Overall: no retractions 05/24/2018 None Full Exam - General 1994 Respiratory respiratory effort/rhythm Overall: normal rate 05/24/2018 None Full Exam - General 1994 Cardiovascular extremities Overall: no clubbing 05/24/2018 None Full Exam - General 1994 Cardiovascular auscultation of heart Overall: regular rate 05/24/2018 None Full Exam - General 1994 Cardiovascular auscultation of heart Overall: normal heart sounds 05/24/2018 None Full Exam - General 1994 Abdomen abdominal exam Overall: no tenderness 05/24/2018 None Full Exam - General 1994 Abdomen abdominal exam Overall: normal bowel sounds 05/24/2018 None Full Exam - General 1994 Lymphatic neck nodes Overall: anterior cervical chain benign 05/24/2018 None Full Exam - General 1994 Lymphatic neck nodes Overall: posterior cervical chain benign 05/24/2018 None Full Exam - General 1994 Neurologic deep tendon reflexes Overall: deep tendon reflexes intact 05/24/2018 None Full Exam - General 1994 Neurologic cranial nerves Overall: crainial nerves 2 - 12 grossly intact 05/24/2018 None Full Exam - General 1994 Psychiatric orientation/consciousness Overall: oriented to person, place and time 05/24/2018 None Full Exam - General 1994 Psychiatric mood and affect Overall: normal mood and affect 05/24/2018 None Full Exam - General 1994 Integument inspection of skin Overall: few scattered moles, no gross abnormalities 05/24/2018 None Full Exam - General 1994 Cardiovascular extremities Edema present: pitting 05/24/2018 None Full Exam - General 1994 Cardiovascular extremities Edema present: severity 1+ - 4+: 1+ 05/24/2018 None Full Exam - Orthopedics Constitutional general appearance Overall: well nourished 04/06/2018 None Full Exam - Orthopedics Constitutional general appearance Overall: well developed 04/06/2018 None Full Exam - Orthopedics Constitutional general appearance Evidence of Distress: in distress secondary to pain 04/06/2018 None Full Exam - Orthopedics Respiratory respiratory effort/rhythm Overall: no retractions 04/06/2018 None Full Exam - Orthopedics Respiratory respiratory effort/rhythm Overall: normal rate 04/06/2018 None Full Exam - Orthopedics MS: head/neck insp & palp - H/N Overall: head atraumatic 04/06/2018 None Full Exam - Orthopedics MS: spine/rib/pelvis insp & palp - S/R/P Sacroiliac palpation: right sacroiliac joint tenderness 04/06/2018 None Full Exam - Orthopedics MS: spine/rib/pelvis insp & palp - S/R/P Sacroiliac palpation: right sciatic notch tenderness 04/06/2018 None Full Exam - Orthopedics Psychiatric orientation/consciousness Overall: oriented to person, place and time 04/06/2018 None Full Exam - Orthopedics Psychiatric mood and affect Overall: normal mood and affect 04/06/2018 None Full Exam - Orthopedics Psychiatric appearance Overall: well-groomed, good eye contact 04/06/2018 None Full Exam - Orthopedics Constitutional general appearance Overall: well nourished 03/23/2018 None Full Exam - Orthopedics Constitutional general appearance Overall: well developed 03/23/2018 None Full Exam - Orthopedics Constitutional general appearance Evidence of Distress: in distress secondary to pain 03/23/2018 None Full Exam - Orthopedics Respiratory respiratory effort/rhythm Overall: no retractions 03/23/2018 None Full Exam - Orthopedics Respiratory respiratory effort/rhythm Overall: normal rate 03/23/2018 None Full Exam - Orthopedics MS: head/neck insp & palp - H/N Overall: head atraumatic 03/23/2018 None Full Exam - Orthopedics MS: spine/rib/pelvis insp & palp - S/R/P Sacroiliac palpation: right sacroiliac joint tenderness 03/23/2018 None Full Exam - Orthopedics Psychiatric orientation/consciousness Overall: oriented to person, place and time 03/23/2018 None Full Exam - Orthopedics Psychiatric mood and affect Overall: normal mood and affect 03/23/2018 None Full Exam - Orthopedics Psychiatric appearance Overall: well-groomed, good eye contact 03/23/2018 None Full Exam - Orthopedics MS: spine/rib/pelvis insp & palp - S/R/P Sacroiliac palpation: right sciatic notch tenderness 03/23/2018 None Full Exam - Orthopedics Constitutional general appearance Overall: well nourished 03/12/2018 None Full Exam - Orthopedics Constitutional general appearance Overall: well developed 03/12/2018 None Full Exam - Orthopedics Constitutional general appearance Evidence of Distress: in distress secondary to pain 03/12/2018 None Full Exam - Orthopedics Eyes conjunctiva/eyelids Overall: conjunctiva clear 03/12/2018 None Full Exam - Orthopedics Eyes conjunctiva/eyelids Overall: eyelids normal 03/12/2018 None Full Exam - Orthopedics Ears/Nose/Throat lips/teeth/gingiva Overall: benign lips 03/12/2018 None Full Exam - Orthopedics Respiratory respiratory effort/rhythm Overall: no retractions 03/12/2018 None Full Exam - Orthopedics Respiratory respiratory effort/rhythm Overall: normal rate 03/12/2018 None Full Exam - Orthopedics MS: head/neck insp & palp - H/N Overall: head atraumatic 03/12/2018 None Full Exam - Orthopedics MS: spine/rib/pelvis insp & palp - S/R/P Sacroiliac palpation: left sacroiliac joint tenderness 03/12/2018 None Full Exam - Orthopedics MS: spine/rib/pelvis insp & palp - S/R/P Sacroiliac palpation: right sacroiliac joint tenderness 03/12/2018 None Full Exam - Orthopedics Psychiatric orientation/consciousness Overall: oriented to person, place and time 03/12/2018 None Full Exam - Orthopedics Psychiatric mood and affect Overall: normal mood and affect 03/12/2018 None Full Exam - Orthopedics Psychiatric appearance Overall: well-groomed, good eye contact 03/12/2018 None Full Exam - General 1994 Constitutional general appearance Development: well developed 03/02/2018 None Full Exam - General 1994 Constitutional general appearance Development: appears stated age 0703/02/2018 None Full Exam - General 1994 Constitutional general appearance Hygiene/Attention to Grooming: good hygiene 03/02/2018 None Full Exam - General 1994 Eyes conjunctiva/eyelids Overall: conjunctiva clear 03/02/2018 None Full Exam - General 1994 Eyes conjunctiva/eyelids Overall: cornea clear 03/02/2018 None Full Exam - General 1994 Eyes conjunctiva/eyelids Overall: eyelids normal 03/02/2018 None Full Exam - General 1994 Eyes pupils and irises Overall: pupils equal, round, reactive to light and accomodation 03/02/2018 None Full Exam - General 1994 Ears/Nose/Throat otoscopic exam Overall: external auditory canals clear 03/02/2018 None Full Exam - General 1994 Ears/Nose/Throat otoscopic exam Overall: tympanic membranes clear 03/02/2018 None Full Exam - General 1994 Ears/Nose/Throat lips/teeth/gingiva Overall: benign lips 03/02/2018 None Full Exam - General 1994 Ears/Nose/Throat lips/teeth/gingiva Overall: normal dentition 03/02/2018 None Full Exam - General 1994 Ears/Nose/Throat oral cavity/pharynx/larynx Overall: oral mucosa clear 03/02/2018 None Full Exam - General 1994 Ears/Nose/Throat oral cavity/pharynx/larynx Overall: oropharyngeal mucosa clear 03/02/2018 None Full Exam - General 1994 Ears/Nose/Throat oral cavity/pharynx/larynx Overall: hypopharynx benign 03/02/2018 None Full Exam - General 1994 Ears/Nose/Throat oral cavity/pharynx/larynx Overall: no masses 03/02/2018 None Full Exam - General 1994 Respiratory auscultation Overall: breath sounds clear bilaterally 03/02/2018 None Full Exam - General 1994 Respiratory respiratory effort/rhythm Overall: no retractions 03/02/2018 None Full Exam - General 1994 Respiratory respiratory effort/rhythm Overall: normal rate 03/02/2018 None Full Exam - General 1994 Cardiovascular extremities Overall: no clubbing 03/02/2018 None Full Exam - General 1994 Cardiovascular auscultation of heart Overall: regular rate 03/02/2018 None Full Exam - General 1994 Cardiovascular auscultation of heart Overall: normal heart sounds 03/02/2018 None Full Exam - General 1994 Abdomen abdominal exam Overall: no tenderness 03/02/2018 None Full Exam - General 1994 Abdomen abdominal exam Overall: normal bowel sounds 03/02/2018 None Full Exam - General 1994 Lymphatic neck nodes Overall: anterior cervical chain benign 03/02/2018 None Full Exam - General 1994 Lymphatic neck nodes Overall: posterior cervical chain benign 03/02/2018 None Full Exam - General 1994 Integument inspection of skin Overall: few scattered moles, no gross abnormalities 03/02/2018 thinning hair Full Exam - General 1994 Integument inspection of skin Hair: alopecia 03/02/2018 - improved on posterior scalp - Full Exam - General 1994 Neurologic deep tendon reflexes Overall: deep tendon reflexes intact 03/02/2018 None Full Exam - General 1994 Neurologic cranial nerves Overall: crainial nerves 2 - 12 grossly intact 03/02/2018 None Full Exam - General 1994 Psychiatric orientation/consciousness Overall: oriented to person, place and time 03/02/2018 None Full Exam - General 1994 Psychiatric mood and affect Overall: normal mood and affect 03/02/2018 None Full Exam - Dermatology Constitutional general appearance Overall: well nourished 02/08/2018 None Full Exam - Dermatology Constitutional general appearance Overall: well developed 02/08/2018 None Full Exam - Dermatology Constitutional general appearance Overall: in no acute distress 02/08/2018 None Full Exam - Dermatology Constitutional general appearance Overall: of normal body habitus 02/08/2018 None Full Exam - Dermatology Constitutional general appearance Overall: well groomed 02/08/2018 None Full Exam - Dermatology Psychiatric orientation Overall: oriented to person, place and time 02/08/2018 None Full Exam - Dermatology Respiratory auscultation Overall: breath sounds clear bilaterally 02/08/2018 None Full Exam - Dermatology Respiratory respiratory effort/rhythm Overall: no retractions 02/08/2018 None Full Exam - Dermatology Respiratory respiratory effort/rhythm Overall: normal rate 02/08/2018 None Full Exam - Dermatology Integument insp & palp - head/face Lesion: papule 02/08/2018 3cm x 3cm with surrounding 11cm long x 4cm wide Full Exam - General 1994 Constitutional general appearance Development: well developed 12/03/2017 None Full Exam - General 1994 Constitutional general appearance Development: appears stated age 0412/03/2017 None Full Exam - General 1994 Constitutional general appearance Hygiene/Attention to Grooming: good hygiene 12/03/2017 None Full Exam - General 1994 Eyes conjunctiva/eyelids Overall: conjunctiva clear 12/03/2017 None Full Exam - General 1994 Eyes conjunctiva/eyelids Overall: cornea clear 12/03/2017 None Full Exam - General 1994 Eyes conjunctiva/eyelids Overall: eyelids normal 12/03/2017 None Full Exam - General 1994 Eyes pupils and irises Overall: pupils equal, round, reactive to light and accomodation 12/03/2017 None Full Exam - General 1994 Ears/Nose/Throat otoscopic exam Overall: external auditory canals clear 12/03/2017 None Full Exam - General 1994 Ears/Nose/Throat otoscopic exam Overall: tympanic membranes clear 12/03/2017 None Full Exam - General 1994 Ears/Nose/Throat lips/teeth/gingiva Overall: benign lips 12/03/2017 None Full Exam - General 1994 Ears/Nose/Throat lips/teeth/gingiva Overall: normal dentition 12/03/2017 None Full Exam - General 1994 Ears/Nose/Throat oral cavity/pharynx/larynx Overall: oral mucosa clear 12/03/2017 None Full Exam - General 1994 Ears/Nose/Throat oral cavity/pharynx/larynx Overall: oropharyngeal mucosa clear 12/03/2017 None Full Exam - General 1994 Ears/Nose/Throat oral cavity/pharynx/larynx Overall: hypopharynx benign 12/03/2017 None Full Exam - General 1994 Ears/Nose/Throat oral cavity/pharynx/larynx Overall: no masses 12/03/2017 None Full Exam - General 1994 Respiratory auscultation Overall: breath sounds clear bilaterally 12/03/2017 None Full Exam - General 1994 Respiratory respiratory effort/rhythm Overall: no retractions 12/03/2017 None Full Exam - General 1994 Respiratory respiratory effort/rhythm Overall: normal rate 12/03/2017 None Full Exam - General 1994 Cardiovascular extremities Overall: no clubbing 12/03/2017 None Full Exam - General 1994 Cardiovascular auscultation of heart Overall: regular rate 12/03/2017 None Full Exam - General 1994 Cardiovascular auscultation of heart Overall: normal heart sounds 12/03/2017 None Full Exam - General 1994 Abdomen abdominal exam Overall: no tenderness 12/03/2017 None Full Exam - General 1994 Abdomen abdominal exam Overall: normal bowel sounds 12/03/2017 None Full Exam - General 1994 Lymphatic neck nodes Overall: anterior cervical chain benign 12/03/2017 None Full Exam - General 1994 Lymphatic neck nodes Overall: posterior cervical chain benign 12/03/2017 None Full Exam - General 1994 Integument inspection of skin Overall: few scattered moles, no gross abnormalities 12/03/2017 thinning hair Full Exam - General 1994 Neurologic deep tendon reflexes Overall: deep tendon reflexes intact 12/03/2017 None Full Exam - General 1994 Neurologic cranial nerves Overall: crainial nerves 2 - 12 grossly intact 12/03/2017 None Full Exam - General 1994 Psychiatric orientation/consciousness Overall: oriented to person, place and time 12/03/2017 None Full Exam - General 1994 Psychiatric mood and affect Overall: normal mood and affect 12/03/2017 None Full Exam - General 1994 Integument inspection of skin Hair: alopecia 12/03/2017 - improved on posterior scalp - Full Exam - General 1994 Constitutional general appearance Hygiene/Attention to Grooming: good hygiene 10/27/2017 None Full Exam - General 1994 Eyes conjunctiva/eyelids Overall: conjunctiva clear 10/27/2017 None Full Exam - General 1994 Eyes conjunctiva/eyelids Overall: cornea clear 10/27/2017 None Full Exam - General 1994 Eyes conjunctiva/eyelids Overall: eyelids normal 10/27/2017 None Full Exam - General 1994 Eyes pupils and irises Overall: pupils equal, round, reactive to light and accomodation 10/27/2017 None Full Exam - General 1994 Ears/Nose/Throat lips/teeth/gingiva Overall: benign lips 10/27/2017 None Full Exam - General 1994 Ears/Nose/Throat oral cavity/pharynx/larynx Overall: oral mucosa clear 10/27/2017 None Full Exam - General 1994 Respiratory auscultation Overall: breath sounds clear bilaterally 10/27/2017 None Full Exam - General 1994 Respiratory respiratory effort/rhythm Overall: no retractions 10/27/2017 None Full Exam - General 1994 Respiratory respiratory effort/rhythm Overall: normal rate 10/27/2017 None Full Exam - General 1994 Cardiovascular extremities Overall: no clubbing 10/27/2017 None Full Exam - General 1994 Cardiovascular auscultation of heart Overall: regular rate 10/27/2017 None Full Exam - General 1994 Cardiovascular auscultation of heart Overall: normal heart sounds 10/27/2017 None Full Exam - General 1994 Abdomen abdominal exam Overall: no tenderness 10/27/2017 None Full Exam - General 1994 Abdomen abdominal exam Overall: normal bowel sounds 10/27/2017 None Full Exam - General 1994 Lymphatic neck nodes Overall: anterior cervical chain benign 10/27/2017 None Full Exam - General 1994 Lymphatic neck nodes Overall: posterior cervical chain benign 10/27/2017 None Full Exam - General 1994 Neurologic cranial nerves Overall: crainial nerves 2 - 12 grossly intact 10/27/2017 None Full Exam - General 1994 Psychiatric orientation/consciousness Overall: oriented to person, place and time 10/27/2017 None Full Exam - General 1994 Psychiatric mood and affect Overall: normal mood and affect 10/27/2017 None Full Exam - General 1994 Constitutional general appearance Overall: well developed 10/27/2017 None Full Exam - General 1994 Constitutional general appearance Overall: in no acute distress 10/27/2017 None Full Exam - General 1994 Constitutional general appearance Overall: well nourished 10/27/2017 None Full Exam - General 1994 Ears/Nose/Throat otoscopic exam External auditory canal: partial cerumen occlusion 10/27/2017 None Full Exam - General 1994 Ears/Nose/Throat otoscopic exam Overall: tympanic membranes clear 10/27/2017 None Full Exam - General 1994 Ears/Nose/Throat oral cavity/pharynx/larynx Posterior Pharynx: clear post nasal drainage 10/27/2017 None Full Exam - General 1994 Psychiatric appearance Overall: well-groomed, good eye contact 10/27/2017 None Full Exam - General 1994 Constitutional general appearance Hygiene/Attention to Grooming: good hygiene 10/12/2017 None Full Exam - General 1995 Eyes conjunctiva/eyelids Overall: conjunctiva clear 10/12/2017 None Full Exam - General 1994 Eyes conjunctiva/eyelids Overall: cornea clear 10/12/2017 None Full Exam - General 1994 Eyes conjunctiva/eyelids Overall: eyelids normal 10/12/2017 None Full Exam - General 1994 Eyes pupils and irises Overall: pupils equal, round, reactive to light and accomodation 10/12/2017 None Full Exam - General 1994 Ears/Nose/Throat otoscopic exam Overall: external auditory canals clear 10/12/2017 None Full Exam - General 1994 Ears/Nose/Throat otoscopic exam Overall: tympanic membranes clear 10/12/2017 None Full Exam - General 1994 Ears/Nose/Throat lips/teeth/gingiva Overall: benign lips 10/12/2017 None Full Exam - General 1994 Ears/Nose/Throat lips/teeth/gingiva Overall: normal dentition 10/12/2017 None Full Exam - General 1994 Ears/Nose/Throat oral cavity/pharynx/larynx Overall: oral mucosa clear 10/12/2017 None Full Exam - General 1994 Respiratory respiratory effort/rhythm Overall: no retractions 10/12/2017 None Full Exam - General 1994 Respiratory respiratory effort/rhythm Overall: normal rate 10/12/2017 None Full Exam - General 1994 Cardiovascular extremities Overall: no clubbing 10/12/2017 None Full Exam - General 1994 Cardiovascular auscultation of heart Overall: regular rate 10/12/2017 None Full Exam - General 1994 Cardiovascular auscultation of heart Overall: normal heart sounds 10/12/2017 None Full Exam - General 1994 Lymphatic neck nodes Overall: anterior cervical chain benign 10/12/2017 None Full Exam - General 1994 Lymphatic neck nodes Overall: posterior cervical chain benign 10/12/2017 None Full Exam - General 1994 Neurologic cranial nerves Overall: crainial nerves 2 - 12 grossly intact 10/12/2017 None Full Exam - General 1994 Psychiatric orientation/consciousness Overall: oriented to person, place and time 10/12/2017 None Full Exam - General 1994 Psychiatric mood and affect Overall: normal mood and affect 10/12/2017 None Full Exam - General 1994 Constitutional general appearance Overall: well developed 10/12/2017 None Full Exam - General 1994 Constitutional general appearance Overall: in no acute distress 10/12/2017 None Full Exam - General 1994 Constitutional general appearance Overall: well nourished 10/12/2017 None Full Exam - General 1994 Ears/Nose/Throat oral cavity/pharynx/larynx Posterior Pharynx: clear post nasal drainage 10/12/2017 None Full Exam - General 1994 Respiratory auscultation Diffuse: diminished 10/12/2017 None Full Exam - General 1994 Respiratory auscultation Lower lung field: rhonchi 10/12/2017 None Full Exam - General 1994 Respiratory auscultation Lower lung field: expiratory wheezes 10/12/2017 None Full Exam - General 1994 Psychiatric appearance Overall: well-groomed, good eye contact 10/12/2017 None Full Exam - General 1994 Constitutional general appearance Development: well developed 10/06/2017 None Full Exam - General 1994 Constitutional general appearance Development: appears stated age 0210/06/2017 None Full Exam - General 1994 Constitutional general appearance Hygiene/Attention to Grooming: good hygiene 10/06/2017 None Full Exam - General 1994 Eyes conjunctiva/eyelids Overall: conjunctiva clear 10/06/2017 None Full Exam - General 1994 Eyes conjunctiva/eyelids Overall: cornea clear 10/06/2017 None Full Exam - General 1994 Eyes conjunctiva/eyelids Overall: eyelids normal 10/06/2017 None Full Exam - General 1994 Eyes pupils and irises Overall: pupils equal, round, reactive to light and accomodation 10/06/2017 None Full Exam - General 1994 Ears/Nose/Throat otoscopic exam Overall: external auditory canals clear 10/06/2017 None Full Exam - General 1994 Ears/Nose/Throat otoscopic exam Overall: tympanic membranes clear 10/06/2017 None Full Exam - General 1994 Ears/Nose/Throat lips/teeth/gingiva Overall: benign lips 10/06/2017 None Full Exam - General 1994 Ears/Nose/Throat lips/teeth/gingiva Overall: normal dentition 10/06/2017 None Full Exam - General 1995 Ears/Nose/Throat oral cavity/pharynx/larynx Overall: oral mucosa clear 10/06/2017 None Full Exam - General 1995 Ears/Nose/Throat oral cavity/pharynx/larynx Overall: oropharyngeal mucosa clear 10/06/2017 None Full Exam - General 1995 Ears/Nose/Throat oral cavity/pharynx/larynx Overall: hypopharynx benign 10/06/2017 None Full Exam - General 1994 Ears/Nose/Throat oral cavity/pharynx/larynx Overall: no masses 10/06/2017 None Full Exam - General 1994 Respiratory auscultation Overall: breath sounds clear bilaterally 10/06/2017 None Full Exam - General 1994 Respiratory respiratory effort/rhythm Overall: no retractions 10/06/2017 None Full Exam - General 1994 Respiratory respiratory effort/rhythm Overall: normal rate 10/06/2017 None Full Exam - General 1994 Cardiovascular extremities Overall: no clubbing 10/06/2017 None Full Exam - General 1994 Cardiovascular auscultation of heart Overall: regular rate 10/06/2017 None Full Exam - General 1994 Cardiovascular auscultation of heart Overall: normal heart sounds 10/06/2017 None Full Exam - General 1994 Abdomen abdominal exam Overall: no tenderness 10/06/2017 None Full Exam - General 1994 Abdomen abdominal exam Overall: normal bowel sounds 10/06/2017 None Full Exam - General 1994 Lymphatic neck nodes Overall: anterior cervical chain benign 10/06/2017 None Full Exam - General 1994 Lymphatic neck nodes Overall: posterior cervical chain benign 10/06/2017 None Full Exam - General 1994 Neurologic deep tendon reflexes Overall: deep tendon reflexes intact 10/06/2017 None Full Exam - General 1994 Neurologic cranial nerves Overall: crainial nerves 2 - 12 grossly intact 10/06/2017 None Full Exam - General 1994 Psychiatric orientation/consciousness Overall: oriented to person, place and time 10/06/2017 None Full Exam - General 1994 Psychiatric mood and affect Overall: normal mood and affect 10/06/2017 None Full Exam - General 1994 Integument inspection of skin Overall: few scattered moles, no gross abnormalities 10/06/2017 thinning hair Full Exam - General 1994 Constitutional general appearance Development: well developed 08/05/2017 None Full Exam - General 1994 Constitutional general appearance Development: appears stated age 1208/05[birth year]2017 None Full Exam - General 1994 Constitutional general appearance Hygiene/Attention to Grooming: good hygiene 08/05/2017 None Full Exam - General 1994 Eyes conjunctiva/eyelids Overall: conjunctiva clear 08/05/2017 None Full Exam - General 1994 Eyes conjunctiva/eyelids Overall: cornea clear 08/05/2017 None Full Exam - General 1994 Eyes conjunctiva/eyelids Overall: eyelids normal 08/05/2017 None Full Exam - General 1994 Eyes pupils and irises Overall: pupils equal, round, reactive to light and accomodation 08/05/2017 None Full Exam - General 1994 Ears/Nose/Throat otoscopic exam Overall: external auditory canals clear 08/05/2017 None Full Exam - General 1994 Ears/Nose/Throat otoscopic exam Overall: tympanic membranes clear 08/05/2017 None Full Exam - General 1994 Ears/Nose/Throat lips/teeth/gingiva Overall: benign lips 08/05/2017 None Full Exam - General 1994 Ears/Nose/Throat lips/teeth/gingiva Overall: normal dentition 08/05/2017 None Full Exam - General 1994 Ears/Nose/Throat oral cavity/pharynx/larynx Overall: oral mucosa clear 08/05/2017 None Full Exam - General 1994 Ears/Nose/Throat oral cavity/pharynx/larynx Overall: oropharyngeal mucosa clear 08/05/2017 None Full Exam - General 1994 Ears/Nose/Throat oral cavity/pharynx/larynx Overall: hypopharynx benign 08/05/2017 None Full Exam - General 1994 Ears/Nose/Throat oral cavity/pharynx/larynx Overall: no masses 08/05/2017 None Full Exam - General 1994 Respiratory auscultation Overall: breath sounds clear bilaterally 08/05/2017 None Full Exam - General 1994 Respiratory respiratory effort/rhythm Overall: no retractions 08/05/2017 None Full Exam - General 1994 Respiratory respiratory effort/rhythm Overall: normal rate 08/05/2017 None Full Exam - General 1994 Cardiovascular extremities Overall: no clubbing 08/05/2017 None Full Exam - General 1994 Cardiovascular auscultation of heart Overall: regular rate 08/05/2017 None Full Exam - General 1994 Cardiovascular auscultation of heart Overall: normal heart sounds 08/05/2017 None Full Exam - General 1994 Abdomen abdominal exam Overall: no tenderness 08/05/2017 None Full Exam - General 1994 Abdomen abdominal exam Overall: normal bowel sounds 08/05/2017 None Full Exam - General 1994 Lymphatic neck nodes Overall: anterior cervical chain benign 08/05/2017 None Full Exam - General 1994 Lymphatic neck nodes Overall: posterior cervical chain benign 08/05/2017 None Full Exam - General 1994 Integument inspection of skin Overall: few scattered moles, no gross abnormalities 08/05/2017 None Full Exam - General 1994 Neurologic deep tendon reflexes Overall: deep tendon reflexes intact 08/05/2017 None Full Exam - General 1994 Neurologic cranial nerves Overall: crainial nerves 2 - 12 grossly intact 08/05/2017 None Full Exam - General 1994 Psychiatric orientation/consciousness Overall: oriented to person, place and time 08/05/2017 None Full Exam - General 1994 Psychiatric mood and affect Overall: normal mood and affect 08/05/2017 None Full Exam - General 1994 Cardiovascular extremities Edema present: pitting 08/05/2017 None Full Exam - General 1994 Cardiovascular extremities Edema present: severity 1+ - 4+: 2+ 08/05/2017 None Full Exam - General 1994 Constitutional general appearance Development: well developed 07/06/2017 None Full Exam - General 1994 Constitutional general appearance Development: appears stated age 1107/06/2017 None Full Exam - General 1994 Constitutional general appearance Hygiene/Attention to Grooming: good hygiene 07/06/2017 None Full Exam - General 1994 Eyes conjunctiva/eyelids Overall: conjunctiva clear 07/06/2017 None Full Exam - General 1994 Eyes conjunctiva/eyelids Overall: cornea clear 07/06/2017 None Full Exam - General 1994 Eyes conjunctiva/eyelids Overall: eyelids normal 07/06/2017 None Full Exam - General 1994 Eyes pupils and irises Overall: pupils equal, round, reactive to light and accomodation 07/06/2017 None Full Exam - General 1994 Ears/Nose/Throat otoscopic exam Overall: external auditory canals clear 07/06/2017 None Full Exam - General 1994 Ears/Nose/Throat otoscopic exam Overall: tympanic membranes clear 07/06/2017 None Full Exam - General 1994 Ears/Nose/Throat lips/teeth/gingiva Overall: benign lips 07/06/2017 None Full Exam - General 1994 Ears/Nose/Throat lips/teeth/gingiva Overall: normal dentition 07/06/2017 None Full Exam - General 1994 Ears/Nose/Throat oral cavity/pharynx/larynx Overall: oral mucosa clear 07/06/2017 None Full Exam - General 1994 Ears/Nose/Throat oral cavity/pharynx/larynx Overall: oropharyngeal mucosa clear 07/06/2017 None Full Exam - General 1994 Ears/Nose/Throat oral cavity/pharynx/larynx Overall: hypopharynx benign 07/06/2017 None Full Exam - General 1994 Ears/Nose/Throat oral cavity/pharynx/larynx Overall: no masses 07/06/2017 None Full Exam - General 1994 Respiratory auscultation Overall: breath sounds clear bilaterally 07/06/2017 None Full Exam - General 1994 Respiratory respiratory effort/rhythm Overall: no retractions 07/06/2017 None Full Exam - General 1994 Respiratory respiratory effort/rhythm Overall: normal rate 07/06/2017 None Full Exam - General 1994 Cardiovascular extremities Overall: no clubbing 07/06/2017 None Full Exam - General 1994 Cardiovascular auscultation of heart Overall: regular rate 07/06/2017 None Full Exam - General 1994 Cardiovascular auscultation of heart Overall: normal heart sounds 07/06/2017 None Full Exam - General 1994 Abdomen abdominal exam Overall: no tenderness 07/06/2017 None Full Exam - General 1994 Abdomen abdominal exam Overall: normal bowel sounds 07/06/2017 None Full Exam - General 1994 Lymphatic neck nodes Overall: anterior cervical chain benign 07/06/2017 None Full Exam - General 1994 Lymphatic neck nodes Overall: posterior cervical chain benign 07/06/2017 None Full Exam - General 1994 Integument inspection of skin Overall: few scattered moles, no gross abnormalities 07/06/2017 None Full Exam - General 1994 Neurologic deep tendon reflexes Overall: deep tendon reflexes intact 07/06/2017 None Full Exam - General 1994 Neurologic cranial nerves Overall: crainial nerves 2 - 12 grossly intact 07/06/2017 None Full Exam - General 1994 Psychiatric orientation/consciousness Overall: oriented to person, place and time 07/06/2017 None Full Exam - General 1994 Psychiatric mood and affect Overall: normal mood and affect 07/06/2017 None Full Exam - General 1994 Constitutional general appearance Overall: well developed 06/18/2017 None Full Exam - General 1994 Constitutional general appearance Overall: well nourished 06/18/2017 None Full Exam - General 1994 Constitutional general appearance Assistive Device: walker 06/18/2017 None Full Exam - General 1994 Eyes conjunctiva/eyelids Overall: conjunctiva clear 06/18/2017 None Full Exam - General 1994 Eyes conjunctiva/eyelids Overall: eyelids normal 06/18/2017 None Full Exam - General 1994 Eyes pupils and irises Overall: pupils equal, round, reactive to light and accomodation 06/18/2017 None Full Exam - General 1994 Ears/Nose/Throat otoscopic exam Overall: external auditory canals clear 06/18/2017 None Full Exam - General 1994 Ears/Nose/Throat otoscopic exam Overall: tympanic membranes clear 06/18/2017 None Full Exam - General 1994 Ears/Nose/Throat lips/teeth/gingiva Overall: benign lips 06/18/2017 None Full Exam - General 1994 Ears/Nose/Throat oral cavity/pharynx/larynx Overall: oral mucosa clear 06/18/2017 None Full Exam - General 1994 Ears/Nose/Throat oral cavity/pharynx/larynx Overall: oropharyngeal mucosa clear 06/18/2017 None Full Exam - General 1994 Respiratory auscultation Overall: breath sounds clear bilaterally 06/18/2017 None Full Exam - General 1994 Respiratory respiratory effort/rhythm Overall: no retractions 06/18/2017 None Full Exam - General 1994 Respiratory respiratory effort/rhythm Overall: normal rate 06/18/2017 None Full Exam - General 1994 Cardiovascular extremities Overall: no clubbing 06/18/2017 None Full Exam - General 1994 Cardiovascular auscultation of heart Rate: regular rate 06/18/2017 None Full Exam - General 1994 Cardiovascular auscultation of heart Rhythm: regular rhythm 06/18/2017 None Full Exam - General 1994 Cardiovascular auscultation of heart Systolic murmur: holosystolic 06/18/2017 None Full Exam - General 1994 Cardiovascular auscultation of heart Systolic murmur grade: II/ 06/18/2017 None Full Exam - General 1994 Abdomen abdominal exam Overall: no tenderness 06/18/2017 None Full Exam - General 1994 Abdomen abdominal exam Overall: normal bowel sounds 06/18/2017 None Full Exam - General 1994 Musculoskeletal upper extremity Palpation - shoulder: glenohumeral joint tenderness 06/18/2017 None Full Exam - General 1994 Musculoskeletal upper extremity Palpation - shoulder: acromioclavicular joint tenderness 06/18/2017 None Full Exam - General 1994 Musculoskeletal upper extremity Palpation - shoulder: tenderness @ bicipital groove 06/18/2017 None Full Exam - General 1994 Musculoskeletal upper extremity ROM - shoulder: pain with abduction 06/18/2017 None Full Exam - General 1994 Musculoskeletal upper extremity ROM - shoulder: pain with adduction 06/18/2017 None Full Exam - General 1994 Musculoskeletal head and neck Overall: head atraumatic 06/18/2017 None Full Exam - General 1994 Neurologic gait Conventional walking: unsteady 06/18/2017 None Full Exam - General 1994 Neurologic cranial nerves Overall: crainial nerves 2 - 12 grossly intact 06/18/2017 None Full Exam - General 1994 Psychiatric orientation/consciousness Overall: oriented to person, place and time 06/18/2017 None Full Exam - General 1994 Psychiatric mood and affect Mood: flat 06/18/2017 None Full Exam - General 1994 Psychiatric mood and affect Mood: depressed 06/18/2017 None Full Exam - General 1994 Constitutional general appearance Overall: in no acute distress 06/18/2017 None Full Exam - General 1994 Lymphatic neck nodes Overall: anterior cervical chain benign 06/18/2017 None Full Exam - General 1994 Lymphatic neck nodes Overall: posterior cervical chain benign 06/18/2017 None Full Exam - General 1994 Constitutional general appearance Overall: well developed 05/11/2017 None Full Exam - General 1994 Eyes conjunctiva/eyelids Overall: conjunctiva clear 05/11/2017 None Full Exam - General 1994 Eyes conjunctiva/eyelids Overall: eyelids normal 05/11/2017 None Full Exam - General 1994 Eyes pupils and irises Overall: pupils equal, round, reactive to light and accomodation 05/11/2017 None Full Exam - General 1994 Ears/Nose/Throat otoscopic exam Overall: external auditory canals clear 05/11/2017 None Full Exam - General 1994 Ears/Nose/Throat otoscopic exam Overall: tympanic membranes clear 05/11/2017 None Full Exam - General 1994 Ears/Nose/Throat lips/teeth/gingiva Overall: benign lips 05/11/2017 None Full Exam - General 1994 Ears/Nose/Throat oral cavity/pharynx/larynx Overall: oral mucosa clear 05/11/2017 None Full Exam - General 1994 Ears/Nose/Throat oral cavity/pharynx/larynx Overall: oropharyngeal mucosa clear 05/11/2017 None Full Exam - General 1994 Respiratory auscultation Overall: breath sounds clear bilaterally 05/11/2017 None Full Exam - General 1994 Respiratory respiratory effort/rhythm Overall: no retractions 05/11/2017 None Full Exam - General 1994 Respiratory respiratory effort/rhythm Overall: normal rate 05/11/2017 None Full Exam - General 1994 Cardiovascular extremities Overall: no clubbing 05/11/2017 None Full Exam - General 1994 Cardiovascular auscultation of heart Rate: regular rate 05/11/2017 None Full Exam - General 1994 Cardiovascular auscultation of heart Rhythm: regular rhythm 05/11/2017 None Full Exam - General 1994 Cardiovascular auscultation of heart Systolic murmur: holosystolic 05/11/2017 None Full Exam - General 1994 Cardiovascular auscultation of heart Systolic murmur grade: II/ 05/11/2017 None Full Exam - General 1994 Abdomen abdominal exam Overall: no tenderness 05/11/2017 None Full Exam - General 1994 Abdomen abdominal exam Overall: normal bowel sounds 05/11/2017 None Full Exam - General 1994 Psychiatric orientation/consciousness Overall: oriented to person, place and time 05/11/2017 None Full Exam - General 1994 Constitutional general appearance Overall: well nourished 05/11/2017 None Full Exam - General 1994 Constitutional general appearance Evidence of Distress: anxious 05/11/2017 None Full Exam - General 1994 Musculoskeletal head and neck Overall: head atraumatic 05/11/2017 None Full Exam - General 1994 Musculoskeletal upper extremity Palpation - shoulder: tenderness @ bicipital groove 05/11/2017 None Full Exam - General 1994 Musculoskeletal upper extremity Palpation - shoulder: glenohumeral joint tenderness 05/11/2017 None Full Exam - General 1994 Musculoskeletal upper extremity Palpation - shoulder: acromioclavicular joint tenderness 05/11/2017 None Full Exam - General 1994 Musculoskeletal upper extremity ROM - shoulder: pain with abduction 05/11/2017 None Full Exam - General 1994 Musculoskeletal upper extremity ROM - shoulder: pain with adduction 05/11/2017 None Full Exam - General 1994 Neurologic cranial nerves Overall: crainial nerves 2 - 12 grossly intact 05/11/2017 None Full Exam - General 1994 Neurologic gait Conventional walking: unsteady 05/11/2017 None Full Exam - General 1994 Psychiatric mood and affect Mood: flat 05/11/2017 None Full Exam - General 1994 Psychiatric mood and affect Mood: depressed 05/11/2017 None Full Exam - General 1994 Constitutional general appearance Assistive Device: walker 05/11/2017 None Full Exam - General 1994 Constitutional general appearance Overall: well developed 04/27/2017 None Full Exam - General 1994 Constitutional general appearance Overall: in no acute distress 04/27/2017 None Full Exam - General 1994 Constitutional general appearance Overall: well nourished 04/27/2017 None Full Exam - General 1994 Eyes conjunctiva/eyelids Overall: conjunctiva clear 04/27/2017 None Full Exam - General 1994 Eyes conjunctiva/eyelids Overall: cornea clear 04/27/2017 None Full Exam - General 1994 Eyes conjunctiva/eyelids Overall: eyelids normal 04/27/2017 None Full Exam - General 1994 Eyes pupils and irises Overall: pupils equal, round, reactive to light and accomodation 04/27/2017 None Full Exam - General 1995 Ears/Nose/Throat external ear Overall: normal appearance 04/27/2017 None Full Exam - General 1995 Ears/Nose/Throat external ear Overall: no masses 04/27/2017 None Full Exam - General 1995 Ears/Nose/Throat external ear Overall: normal mastoids 04/27/2017 None Full Exam - General 1995 Ears/Nose/Throat external nose Overall: benign appearance 04/27/2017 None Full Exam - General 1995 Ears/Nose/Throat external nose Overall: no masses 04/27/2017 None Full Exam - General 1994 Ears/Nose/Throat external nose Overall: non-tender 04/27/2017 None Full Exam - General 1994 Ears/Nose/Throat otoscopic exam Overall: external auditory canals clear 04/27/2017 None Full Exam - General 1994 Ears/Nose/Throat otoscopic exam Overall: tympanic membranes clear 04/27/2017 None Full Exam - General 1994 Ears/Nose/Throat internal nose Overall: bilateral nasal cavities clear 04/27/2017 None Full Exam - General 1995 Ears/Nose/Throat internal nose Overall: no sinus tenderness 04/27/2017 None Full Exam - General 1995 Ears/Nose/Throat internal nose Overall: no drainage 04/27/2017 None Full Exam - General 1994 Ears/Nose/Throat internal nose Overall: nasopharynx benign 04/27/2017 None Full Exam - General 1994 Ears/Nose/Throat lips/teeth/gingiva Overall: benign lips 04/27/2017 None Full Exam - General 1995 Ears/Nose/Throat lips/teeth/gingiva Overall: normal dentition 04/27/2017 None Full Exam - General 1994 Ears/Nose/Throat lips/teeth/gingiva Overall: benign gingiva 04/27/2017 None Full Exam - General 1995 Ears/Nose/Throat lips/teeth/gingiva Overall: no masses 04/27/2017 None Full Exam - General 1995 Ears/Nose/Throat oral cavity/pharynx/larynx Overall: oral mucosa clear 04/27/2017 None Full Exam - General 1995 Ears/Nose/Throat oral cavity/pharynx/larynx Overall: oropharyngeal mucosa clear 04/27/2017 None Full Exam - General 1994 Ears/Nose/Throat oral cavity/pharynx/larynx Overall: no masses 04/27/2017 None Full Exam - General 1994 Respiratory auscultation Overall: breath sounds clear bilaterally 04/27/2017 None Full Exam - General 1994 Respiratory respiratory effort/rhythm Overall: no retractions 04/27/2017 None Full Exam - General 1994 Respiratory respiratory effort/rhythm Overall: normal rate 04/27/2017 None Full Exam - General 1994 Cardiovascular extremities Overall: no clubbing 04/27/2017 None Full Exam - General 1994 Cardiovascular auscultation of heart Overall: normal heart sounds 04/27/2017 None Full Exam - General 1994 Cardiovascular auscultation of heart Systolic murmur: holosystolic 04/27/2017 None Full Exam - General 1994 Cardiovascular auscultation of heart Systolic murmur grade: II/ 04/27/2017 None Full Exam - General 1994 Abdomen abdominal exam Overall: no tenderness 04/27/2017 None Full Exam - General 1994 Abdomen abdominal exam Overall: normal bowel sounds 04/27/2017 None Full Exam - General 1994 Musculoskeletal digits and nails Overall: no clubbing 04/27/2017 None Full Exam - General 1994 Musculoskeletal digits and nails Overall: digits benign 04/27/2017 None Full Exam - General 1994 Musculoskeletal gait and station Overall: normal gait 04/27/2017 None Full Exam - General 1994 Musculoskeletal gait and station Overall: normal station 04/27/2017 None Full Exam - General 1994 Neurologic mental status Overall: alert 04/27/2017 None Full Exam - General 1994 Neurologic mental status Overall: oriented 04/27/2017 None Full Exam - General 1994 Psychiatric orientation/consciousness Overall: oriented to person, place and time 04/27/2017 None Full Exam - General 1994 Psychiatric behavior/psychomotor activity Overall: no tics, normal psychomotor activity 04/27/2017 None Full Exam - General 1994 Psychiatric mood and affect Overall: normal mood and affect 04/27/2017 None Full Exam - General 1994 Psychiatric appearance Overall: well-groomed, good eye contact 04/27/2017 None Full Exam - General 1994 Integument inspection of skin Overall: few scattered moles, no gross abnormalities 04/27/2017 None Full Exam - General 1994 Cardiovascular auscultation of heart Rhythm: regular rhythm 04/27/2017 None Full Exam - General 1994 Cardiovascular auscultation of heart Rate: regular rate 04/27/2017 None Full Exam - General 1994 Constitutional general appearance Overall: well developed 04/08/2017 None Full Exam - General 1994 Constitutional general appearance Overall: in no acute distress 04/08/2017 None Full Exam - General 1994 Constitutional general appearance Overall: well nourished 04/08/2017 None Full Exam - General 1994 Eyes conjunctiva/eyelids Overall: conjunctiva clear 04/08/2017 None Full Exam - General 1994 Eyes conjunctiva/eyelids Overall: cornea clear 04/08/2017 None Full Exam - General 1994 Eyes conjunctiva/eyelids Overall: eyelids normal 04/08/2017 None Full Exam - General 1994 Eyes pupils and irises Overall: pupils equal, round, reactive to light and accomodation 04/08/2017 None Full Exam - General 1994 Ears/Nose/Throat external ear Overall: normal appearance 04/08/2017 None Full Exam - General 1994 Ears/Nose/Throat external ear Overall: no masses 04/08/2017 None Full Exam - General 1994 Ears/Nose/Throat external ear Overall: normal mastoids 04/08/2017 None Full Exam - General 1994 Ears/Nose/Throat external nose Overall: benign appearance 04/08/2017 None Full Exam - General 1995 Ears/Nose/Throat external nose Overall: no masses 04/08/2017 None Full Exam - General 1994 Ears/Nose/Throat external nose Overall: non-tender 04/08/2017 None Full Exam - General 1994 Ears/Nose/Throat otoscopic exam Overall: external auditory canals clear 04/08/2017 None Full Exam - General 1994 Ears/Nose/Throat otoscopic exam Overall: tympanic membranes clear 04/08/2017 None Full Exam - General 1994 Ears/Nose/Throat internal nose Overall: bilateral nasal cavities clear 04/08/2017 None Full Exam - General 1995 Ears/Nose/Throat internal nose Overall: no sinus tenderness 04/08/2017 None Full Exam - General 1994 Ears/Nose/Throat internal nose Overall: no drainage 04/08/2017 None Full Exam - General 1994 Ears/Nose/Throat internal nose Overall: nasopharynx benign 04/08/2017 None Full Exam - General 1994 Ears/Nose/Throat lips/teeth/gingiva Overall: benign lips 04/08/2017 None Full Exam - General 1994 Ears/Nose/Throat lips/teeth/gingiva Overall: normal dentition 04/08/2017 None Full Exam - General 1995 Ears/Nose/Throat lips/teeth/gingiva Overall: benign gingiva 04/08/2017 None Full Exam - General 1994 Ears/Nose/Throat lips/teeth/gingiva Overall: no masses 04/08/2017 None Full Exam - General 1994 Ears/Nose/Throat oral cavity/pharynx/larynx Overall: oral mucosa clear 04/08/2017 None Full Exam - General 1994 Ears/Nose/Throat oral cavity/pharynx/larynx Overall: oropharyngeal mucosa clear 04/08/2017 None Full Exam - General 1994 Ears/Nose/Throat oral cavity/pharynx/larynx Overall: no masses 04/08/2017 None Full Exam - General 1994 Respiratory auscultation Overall: breath sounds clear bilaterally 04/08/2017 None Full Exam - General 1994 Respiratory respiratory effort/rhythm Overall: no retractions 04/08/2017 None Full Exam - General 1994 Respiratory respiratory effort/rhythm Overall: normal rate 04/08/2017 None Full Exam - General 1994 Cardiovascular extremities Overall: no clubbing 04/08/2017 None Full Exam - General 1994 Cardiovascular auscultation of heart Overall: normal heart sounds 04/08/2017 None Full Exam - General 1994 Cardiovascular auscultation of heart Systolic murmur: holosystolic 04/08/2017 None Full Exam - General 1994 Cardiovascular auscultation of heart Systolic murmur grade: II/ 04/08/2017 None Full Exam - General 1994 Abdomen abdominal exam Overall: no tenderness 04/08/2017 None Full Exam - General 1994 Abdomen abdominal exam Overall: normal bowel sounds 04/08/2017 None Full Exam - General 1994 Musculoskeletal digits and nails Overall: no clubbing 04/08/2017 None Full Exam - General 1994 Musculoskeletal digits and nails Overall: digits benign 04/08/2017 None Full Exam - General 1994 Musculoskeletal gait and station Overall: normal gait 04/08/2017 None Full Exam - General 1994 Musculoskeletal gait and station Overall: normal station 04/08/2017 None Full Exam - General 1994 Integument inspection of skin Location: left leg 04/08/2017 None Full Exam - General 1994 Integument inspection of skin Location: right leg 04/08/2017 None Full Exam - General 1994 Integument inspection of skin Overall: few scattered moles, no gross abnormalities 04/08/2017 None Full Exam - General 1994 Integument inspection of skin Pigmentation: hemosideran pigment changes 04/08/2017 DUE TO CIRCULATION Full Exam - General 1994 Integument inspection of skin Pigmentation: hyperpigmentation 04/08/2017 None Full Exam - General 1994 Integument inspection of skin Consistency: thin 04/08/2017 None Full Exam - General 1994 Integument inspection of skin Consistency: dry 04/08/2017 None Full Exam - General 1994 Neurologic mental status Overall: alert 04/08/2017 None Full Exam - General 1994 Neurologic mental status Overall: oriented 04/08/2017 None Full Exam - General 1994 Psychiatric orientation/consciousness Overall: oriented to person, place and time 04/08/2017 None Full Exam - General 1994 Psychiatric behavior/psychomotor activity Overall: no tics, normal psychomotor activity 04/08/2017 None Full Exam - General 1994 Psychiatric mood and affect Overall: normal mood and affect 04/08/2017 None Full Exam - General 1994 Psychiatric appearance Overall: well-groomed, good eye contact 04/08/2017 None Full Exam - General 1994 Cardiovascular auscultation of heart Rate: regular rate 04/08/2017 None Full Exam - General 1994 Cardiovascular auscultation of heart Rhythm: irregular rhythm 04/08/2017 pauses every 3-4 beats Full Exam - Orthopedics Constitutional general appearance Overall: well nourished 03/03/2017 None Full Exam - Orthopedics Constitutional general appearance Overall: well developed 03/03/2017 None Full Exam - Orthopedics Constitutional general appearance Evidence of Distress: in distress secondary to pain 03/03/2017 None Full Exam - Orthopedics Eyes conjunctiva/eyelids Overall: conjunctiva clear 03/03/2017 None Full Exam - Orthopedics Eyes conjunctiva/eyelids Overall: eyelids normal 03/03/2017 None Full Exam - Orthopedics Ears/Nose/Throat lips/teeth/gingiva Overall: benign lips 03/03/2017 None Full Exam - Orthopedics Respiratory respiratory effort/rhythm Overall: no retractions 03/03/2017 None Full Exam - Orthopedics Respiratory respiratory effort/rhythm Overall: normal rate 03/03/2017 None Full Exam - Orthopedics MS: head/neck insp & palp - H/N Overall: head atraumatic 03/03/2017 None Full Exam - Orthopedics MS: spine/rib/pelvis insp & palp - S/R/P Sacroiliac palpation: left sacroiliac joint tenderness 03/03/2017 None Full Exam - Orthopedics MS: spine/rib/pelvis insp & palp - S/R/P Sacroiliac palpation: right sacroiliac joint tenderness 03/03/2017 None Full Exam - Orthopedics Psychiatric orientation/consciousness Overall: oriented to person, place and time 03/03/2017 None Full Exam - Orthopedics Psychiatric mood and affect Overall: normal mood and affect 03/03/2017 None Full Exam - Orthopedics Psychiatric appearance Overall: well-groomed, good eye contact 03/03/2017 None Full Exam - General 1994 Constitutional general appearance Overall: well developed 01/05/2017 None Full Exam - General 1994 Constitutional general appearance Overall: in no acute distress 01/05/2017 None Full Exam - General 1994 Constitutional general appearance Overall: well nourished 01/05/2017 None Full Exam - General 1994 Eyes conjunctiva/eyelids Overall: conjunctiva clear 01/05/2017 None Full Exam - General 1994 Eyes conjunctiva/eyelids Overall: cornea clear 01/05/2017 None Full Exam - General 1994 Eyes conjunctiva/eyelids Overall: eyelids normal 01/05/2017 None Full Exam - General 1994 Eyes pupils and irises Overall: pupils equal, round, reactive to light and accomodation 01/05/2017 None Full Exam - General 1994 Ears/Nose/Throat external ear Overall: normal appearance 01/05/2017 None Full Exam - General 1994 Ears/Nose/Throat external ear Overall: no masses 01/05/2017 None Full Exam - General 1994 Ears/Nose/Throat external ear Overall: normal mastoids 01/05/2017 None Full Exam - General 1994 Ears/Nose/Throat external nose Overall: benign appearance 01/05/2017 None Full Exam - General 1994 Ears/Nose/Throat external nose Overall: no masses 01/05/2017 None Full Exam - General 1994 Ears/Nose/Throat external nose Overall: non-tender 01/05/2017 None Full Exam - General 1994 Ears/Nose/Throat otoscopic exam Overall: external auditory canals clear 01/05/2017 None Full Exam - General 1994 Ears/Nose/Throat otoscopic exam Overall: tympanic membranes clear 01/05/2017 None Full Exam - General 1994 Ears/Nose/Throat internal nose Overall: bilateral nasal cavities clear 01/05/2017 None Full Exam - General 1994 Ears/Nose/Throat internal nose Overall: no sinus tenderness 01/05/2017 None Full Exam - General 1994 Ears/Nose/Throat internal nose Overall: no drainage 01/05/2017 None Full Exam - General 1994 Ears/Nose/Throat internal nose Overall: nasopharynx benign 01/05/2017 None Full Exam - General 1994 Ears/Nose/Throat lips/teeth/gingiva Overall: benign lips 01/05/2017 None Full Exam - General 1994 Ears/Nose/Throat lips/teeth/gingiva Overall: normal dentition 01/05/2017 None Full Exam - General 1994 Ears/Nose/Throat lips/teeth/gingiva Overall: benign gingiva 01/05/2017 None Full Exam - General 1994 Ears/Nose/Throat lips/teeth/gingiva Overall: no masses 01/05/2017 None Full Exam - General 1994 Ears/Nose/Throat oral cavity/pharynx/larynx Overall: oral mucosa clear 01/05/2017 None Full Exam - General 1994 Ears/Nose/Throat oral cavity/pharynx/larynx Overall: oropharyngeal mucosa clear 01/05/2017 None Full Exam - General 1994 Ears/Nose/Throat oral cavity/pharynx/larynx Overall: no masses 01/05/2017 None Full Exam - General 1994 Respiratory auscultation Overall: breath sounds clear bilaterally 01/05/2017 None Full Exam - General 1994 Respiratory respiratory effort/rhythm Overall: no retractions 01/05/2017 None Full Exam - General 1994 Respiratory respiratory effort/rhythm Overall: normal rate 01/05/2017 None Full Exam - General 1994 Cardiovascular extremities Overall: no clubbing 01/05/2017 None Full Exam - General 1994 Cardiovascular auscultation of heart Overall: regular rate 01/05/2017 None Full Exam - General 1994 Cardiovascular auscultation of heart Overall: normal heart sounds 01/05/2017 None Full Exam - General 1994 Cardiovascular auscultation of heart Systolic murmur: holosystolic 01/05/2017 None Full Exam - General 1994 Cardiovascular auscultation of heart Systolic murmur grade: II/ 01/05/2017 None Full Exam - General 1994 Abdomen abdominal exam Overall: no tenderness 01/05/2017 None Full Exam - General 1994 Abdomen abdominal exam Overall: normal bowel sounds 01/05/2017 None Full Exam - General 1994 Musculoskeletal digits and nails Overall: no clubbing 01/05/2017 None Full Exam - General 1994 Musculoskeletal digits and nails Overall: digits benign 01/05/2017 None Full Exam - General 1994 Musculoskeletal gait and station Overall: normal gait 01/05/2017 None Full Exam - General 1994 Musculoskeletal gait and station Overall: normal station 01/05/2017 None Full Exam - General 1994 Integument inspection of skin Location: left leg 01/05/2017 None Full Exam - General 1994 Integument inspection of skin Location: right leg 01/05/2017 None Full Exam - General 1994 Integument inspection of skin Overall: few scattered moles, no gross abnormalities 01/05/2017 None Full Exam - General 1994 Integument inspection of skin Pigmentation: hemosideran pigment changes 01/05/2017 DUE TO CIRCULATION Full Exam - General 1994 Integument inspection of skin Pigmentation: hyperpigmentation 01/05/2017 None Full Exam - General 1994 Integument inspection of skin Consistency: thin 01/05/2017 None Full Exam - General 1994 Integument inspection of skin Consistency: dry 01/05/2017 None Full Exam - General 1994 Neurologic mental status Overall: alert 01/05/2017 None Full Exam - General 1994 Neurologic mental status Overall: oriented 01/05/2017 None Full Exam - General 1994 Psychiatric orientation/consciousness Overall: oriented to person, place and time 01/05/2017 None Full Exam - General 1994 Psychiatric behavior/psychomotor activity Overall: no tics, normal psychomotor activity 01/05/2017 None Full Exam - General 1994 Psychiatric mood and affect Overall: normal mood and affect 01/05/2017 None Full Exam - General 1994 Psychiatric appearance Overall: well-groomed, good eye contact 01/05/2017 None Full Exam - Orthopedics Constitutional general appearance Overall: well nourished 12/19/2016 None Full Exam - Orthopedics Constitutional general appearance Overall: well developed 12/19/2016 None Full Exam - Orthopedics Eyes conjunctiva/eyelids Overall: conjunctiva clear 12/19/2016 None Full Exam - Orthopedics Eyes conjunctiva/eyelids Overall: eyelids normal 12/19/2016 None Full Exam - Orthopedics Ears/Nose/Throat lips/teeth/gingiva Overall: benign lips 12/19/2016 None Full Exam - Orthopedics Ears/Nose/Throat oral cavity/pharynx/larynx Overall: oral mucosa clear 12/19/2016 None Full Exam - Orthopedics Respiratory respiratory effort/rhythm Overall: no retractions 12/19/2016 None Full Exam - Orthopedics Respiratory respiratory effort/rhythm Overall: normal rate 12/19/2016 None Full Exam - Orthopedics MS: head/neck insp & palp - H/N Head: atraumatic 12/19/2016 None Full Exam - Orthopedics MS: head/neck insp & palp - H/N Cervical muscles palpation: tender left paracervical 12/19/2016 None Full Exam - Orthopedics MS: head/neck insp & palp - H/N Cervical muscles palpation: tender left trapezius 12/19/2016 None Full Exam - Orthopedics Psychiatric orientation/consciousness Overall: oriented to person, place and time 12/19/2016 None Full Exam - Orthopedics Psychiatric mood and affect Overall: normal mood and affect 12/19/2016 None Full Exam - Orthopedics Psychiatric appearance Overall: well-groomed, good eye contact 12/19/2016 None Full Exam - General 1994 Constitutional general appearance Overall: well developed 11/13/2016 None Full Exam - General 1994 Constitutional general appearance Overall: in no acute distress 11/13/2016 None Full Exam - General 1994 Constitutional general appearance Overall: well nourished 11/13/2016 None Full Exam - General 1994 Eyes conjunctiva/eyelids Overall: conjunctiva clear 11/13/2016 None Full Exam - General 1994 Eyes conjunctiva/eyelids Overall: cornea clear 11/13/2016 None Full Exam - General 1994 Eyes conjunctiva/eyelids Overall: eyelids normal 11/13/2016 None Full Exam - General 1994 Eyes pupils and irises Overall: pupils equal, round, reactive to light and accomodation 11/13/2016 None Full Exam - General 1994 Ears/Nose/Throat external ear Overall: normal appearance 11/13/2016 None Full Exam - General 1994 Ears/Nose/Throat external ear Overall: no masses 11/13/2016 None Full Exam - General 1994 Ears/Nose/Throat external ear Overall: normal mastoids 11/13/2016 None Full Exam - General 1994 Ears/Nose/Throat external nose Overall: benign appearance 11/13/2016 None Full Exam - General 1994 Ears/Nose/Throat external nose Overall: no masses 11/13/2016 None Full Exam - General 1995 Ears/Nose/Throat external nose Overall: non-tender 11/13/2016 None Full Exam - General 1995 Ears/Nose/Throat otoscopic exam Overall: external auditory canals clear 11/13/2016 None Full Exam - General 1994 Ears/Nose/Throat otoscopic exam Overall: tympanic membranes clear 11/13/2016 None Full Exam - General 1994 Ears/Nose/Throat internal nose Overall: bilateral nasal cavities clear 11/13/2016 None Full Exam - General 1994 Ears/Nose/Throat internal nose Overall: no sinus tenderness 11/13/2016 None Full Exam - General 1994 Ears/Nose/Throat internal nose Overall: no drainage 11/13/2016 None Full Exam - General 1994 Ears/Nose/Throat internal nose Overall: nasopharynx benign 11/13/2016 None Full Exam - General 1995 Ears/Nose/Throat lips/teeth/gingiva Overall: benign lips 11/13/2016 None Full Exam - General 1994 Ears/Nose/Throat lips/teeth/gingiva Overall: normal dentition 11/13/2016 None Full Exam - General 1994 Ears/Nose/Throat lips/teeth/gingiva Overall: benign gingiva 11/13/2016 None Full Exam - General 1994 Ears/Nose/Throat lips/teeth/gingiva Overall: no masses 11/13/2016 None Full Exam - General 1994 Ears/Nose/Throat oral cavity/pharynx/larynx Overall: oral mucosa clear 11/13/2016 None Full Exam - General 1994 Ears/Nose/Throat oral cavity/pharynx/larynx Overall: oropharyngeal mucosa clear 11/13/2016 None Full Exam - General 1994 Ears/Nose/Throat oral cavity/pharynx/larynx Overall: no masses 11/13/2016 None Full Exam - General 1994 Respiratory auscultation Overall: breath sounds clear bilaterally 11/13/2016 None Full Exam - General 1994 Respiratory respiratory effort/rhythm Overall: no retractions 11/13/2016 None Full Exam - General 1994 Respiratory respiratory effort/rhythm Overall: normal rate 11/13/2016 None Full Exam - General 1994 Cardiovascular extremities Overall: no clubbing 11/13/2016 None Full Exam - General 1994 Cardiovascular auscultation of heart Overall: regular rate 11/13/2016 None Full Exam - General 1994 Cardiovascular auscultation of heart Overall: normal heart sounds 11/13/2016 None Full Exam - General 1994 Cardiovascular auscultation of heart Systolic murmur: holosystolic 11/13/2016 None Full Exam - General 1994 Cardiovascular auscultation of heart Systolic murmur grade: II/ 11/13/2016 None Full Exam - General 1994 Abdomen abdominal exam Overall: no tenderness 11/13/2016 None Full Exam - General 1994 Abdomen abdominal exam Overall: normal bowel sounds 11/13/2016 None Full Exam - General 1994 Musculoskeletal digits and nails Overall: no clubbing 11/13/2016 None Full Exam - General 1994 Musculoskeletal digits and nails Overall: digits benign 11/13/2016 None Full Exam - General 1994 Musculoskeletal gait and station Overall: normal gait 11/13/2016 None Full Exam - General 1994 Musculoskeletal gait and station Overall: normal station 11/13/2016 None Full Exam - General 1994 Integument inspection of skin Location: left leg 11/13/2016 None Full Exam - General 1994 Integument inspection of skin Location: right leg 11/13/2016 None Full Exam - General 1994 Integument inspection of skin Overall: few scattered moles, no gross abnormalities 11/13/2016 None Full Exam - General 1994 Integument inspection of skin Pigmentation: hemosideran pigment changes 11/13/2016 DUE TO CIRCULATION Full Exam - General 1994 Integument inspection of skin Pigmentation: hyperpigmentation 11/13/2016 None Full Exam - General 1994 Integument inspection of skin Consistency: thin 11/13/2016 None Full Exam - General 1994 Integument inspection of skin Consistency: dry 11/13/2016 None Full Exam - General 1994 Neurologic mental status Overall: alert 11/13/2016 None Full Exam - General 1994 Neurologic mental status Overall: oriented 11/13/2016 None Full Exam - General 1994 Psychiatric orientation/consciousness Overall: oriented to person, place and time 11/13/2016 None Full Exam - General 1994 Psychiatric behavior/psychomotor activity Overall: no tics, normal psychomotor activity 11/13/2016 None Full Exam - General 1994 Psychiatric mood and affect Overall: normal mood and affect 11/13/2016 None Full Exam - General 1994 Psychiatric appearance Overall: well-groomed, good eye contact 11/13/2016 None Full Exam - General 1994 Constitutional general appearance Development: well developed 10/16/2016 None Full Exam - General 1994 Constitutional general appearance Development: appears stated age 0310/16/2016 None Full Exam - General 1994 Constitutional general appearance Overall: well developed 10/16/2016 None Full Exam - General 1994 Constitutional general appearance Overall: in no acute distress 10/16/2016 None Full Exam - General 1994 Constitutional general appearance Overall: well nourished 10/16/2016 None Full Exam - General 1994 Eyes conjunctiva/eyelids Overall: conjunctiva clear 10/16/2016 None Full Exam - General 1994 Eyes conjunctiva/eyelids Overall: cornea clear 10/16/2016 None Full Exam - General 1994 Eyes conjunctiva/eyelids Overall: eyelids normal 10/16/2016 None Full Exam - General 1994 Eyes pupils and irises Overall: pupils equal, round, reactive to light and accomodation 10/16/2016 None Full Exam - General 1995 Ears/Nose/Throat otoscopic exam Overall: external auditory canals clear 10/16/2016 None Full Exam - General 1995 Ears/Nose/Throat otoscopic exam Overall: tympanic membranes clear 10/16/2016 None Full Exam - General 1995 Ears/Nose/Throat lips/teeth/gingiva Overall: benign lips 10/16/2016 None Full Exam - General 1995 Ears/Nose/Throat lips/teeth/gingiva Overall: normal dentition 10/16/2016 None Full Exam - General 1995 Ears/Nose/Throat lips/teeth/gingiva Overall: benign gingiva 10/16/2016 None Full Exam - General 1995 Ears/Nose/Throat lips/teeth/gingiva Overall: no masses 10/16/2016 None Full Exam - General 1994 Ears/Nose/Throat oral cavity/pharynx/larynx Overall: oral mucosa clear 10/16/2016 None Full Exam - General 1995 Ears/Nose/Throat oral cavity/pharynx/larynx Overall: oropharyngeal mucosa clear 10/16/2016 None Full Exam - General 1995 Ears/Nose/Throat oral cavity/pharynx/larynx Overall: no masses 10/16/2016 None Full Exam - General 1994 Respiratory auscultation Overall: breath sounds clear bilaterally 10/16/2016 None Full Exam - General 1994 Respiratory respiratory effort/rhythm Overall: no retractions 10/16/2016 None Full Exam - General 1994 Respiratory respiratory effort/rhythm Overall: normal rate 10/16/2016 None Full Exam - General 1994 Cardiovascular extremities Overall: no clubbing 10/16/2016 None Full Exam - General 1994 Cardiovascular auscultation of heart Overall: regular rate 10/16/2016 None Full Exam - General 1994 Cardiovascular auscultation of heart Overall: normal heart sounds 10/16/2016 artificial valve Full Exam - General 1994 Cardiovascular auscultation of heart Systolic murmur: late systolic 10/16/2016 None Full Exam - General 1994 Cardiovascular auscultation of heart Systolic murmur grade: II/ 10/16/2016 None Full Exam - General 1994 Cardiovascular auscultation of heart Systolic murmur location: LUSB 10/16/2016 None Full Exam - General 1994 Cardiovascular auscultation of heart Systolic murmur location: RUSB 10/16/2016 None Full Exam - General 1994 Abdomen abdominal exam Overall: normal bowel sounds 10/16/2016 None Full Exam - General 1994 Musculoskeletal digits and nails DIPs: deformity 10/16/2016 None Full Exam - General 1994 Musculoskeletal digits and nails PIPs: deformity 10/16/2016 None Full Exam - General 1994 Musculoskeletal lower extremity Palpation - ankle: effusion 10/16/2016 None Full Exam - General 1994 Musculoskeletal lower extremity ROM - ankle: pain with dorsi flexion 10/16/2016 None Full Exam - General 1994 Musculoskeletal gait and station Overall: normal gait 10/16/2016 None Full Exam - General 1994 Musculoskeletal gait and station Overall: normal station 10/16/2016 None Full Exam - General 1994 Integument inspection of skin Overall: no rash, lesions 10/16/2016 None Full Exam - General 1994 Psychiatric orientation/consciousness Overall: oriented to person, place and time 10/16/2016 None Full Exam - General 1994 Psychiatric mood and affect Overall: normal mood and affect 10/16/2016 None Full Exam - General 1994 Psychiatric appearance Overall: well-groomed, good eye contact 10/16/2016 None Full Exam - General 1994 Constitutional general appearance Development: well developed 10/06/2016 None Full Exam - General 1994 Constitutional general appearance Development: appears stated age 0210/06/2016 None Full Exam - General 1994 Constitutional general appearance Overall: well developed 10/06/2016 None Full Exam - General 1994 Constitutional general appearance Overall: in no acute distress 10/06/2016 None Full Exam - General 1994 Constitutional general appearance Overall: well nourished 10/06/2016 None Full Exam - General 1994 Eyes conjunctiva/eyelids Overall: conjunctiva clear 10/06/2016 None Full Exam - General 1994 Eyes conjunctiva/eyelids Overall: cornea clear 10/06/2016 None Full Exam - General 1994 Eyes conjunctiva/eyelids Overall: eyelids normal 10/06/2016 None Full Exam - General 1994 Eyes pupils and irises Overall: pupils equal, round, reactive to light and accomodation 10/06/2016 None Full Exam - General 1994 Ears/Nose/Throat otoscopic exam Overall: external auditory canals clear 10/06/2016 None Full Exam - General 1994 Ears/Nose/Throat otoscopic exam Overall: tympanic membranes clear 10/06/2016 None Full Exam - General 1995 Ears/Nose/Throat lips/teeth/gingiva Overall: benign lips 10/06/2016 None Full Exam - General 1995 Ears/Nose/Throat lips/teeth/gingiva Overall: normal dentition 10/06/2016 None Full Exam - General 1995 Ears/Nose/Throat lips/teeth/gingiva Overall: benign gingiva 10/06/2016 None Full Exam - General 1994 Ears/Nose/Throat lips/teeth/gingiva Overall: no masses 10/06/2016 None Full Exam - General 1994 Ears/Nose/Throat oral cavity/pharynx/larynx Overall: oral mucosa clear 10/06/2016 None Full Exam - General 1995 Ears/Nose/Throat oral cavity/pharynx/larynx Overall: oropharyngeal mucosa clear 10/06/2016 None Full Exam - General 1994 Ears/Nose/Throat oral cavity/pharynx/larynx Overall: no masses 10/06/2016 None Full Exam - General 1994 Respiratory respiratory effort/rhythm Overall: no retractions 10/06/2016 None Full Exam - General 1994 Respiratory respiratory effort/rhythm Overall: normal rate 10/06/2016 None Full Exam - General 1994 Cardiovascular extremities Overall: no clubbing 10/06/2016 None Full Exam - General 1994 Cardiovascular auscultation of heart Overall: regular rate 10/06/2016 None Full Exam - General 1994 Cardiovascular auscultation of heart Overall: normal heart sounds 10/06/2016 artificial valve Full Exam - General 1994 Cardiovascular auscultation of heart Systolic murmur: late systolic 10/06/2016 None Full Exam - General 1994 Cardiovascular auscultation of heart Systolic murmur grade: II/ 10/06/2016 None Full Exam - General 1994 Cardiovascular auscultation of heart Systolic murmur location: LUSB 10/06/2016 None Full Exam - General 1994 Cardiovascular auscultation of heart Systolic murmur location: RUSB 10/06/2016 None Full Exam - General 1994 Abdomen abdominal exam Overall: normal bowel sounds 10/06/2016 None Full Exam - General 1994 Musculoskeletal digits and nails DIPs: deformity 10/06/2016 None Full Exam - General 1994 Musculoskeletal digits and nails PIPs: deformity 10/06/2016 None Full Exam - General 1994 Musculoskeletal lower extremity Palpation - ankle: effusion 10/06/2016 None Full Exam - General 1994 Musculoskeletal lower extremity ROM - ankle: pain with dorsi flexion 10/06/2016 None Full Exam - General 1994 Musculoskeletal gait and station Overall: normal gait 10/06/2016 None Full Exam - General 1994 Musculoskeletal gait and station Overall: normal station 10/06/2016 None Full Exam - General 1994 Integument inspection of skin Overall: no rash, lesions 10/06/2016 None Full Exam - General 1994 Psychiatric orientation/consciousness Overall: oriented to person, place and time 10/06/2016 None Full Exam - General 1994 Psychiatric mood and affect Overall: normal mood and affect 10/06/2016 None Full Exam - General 1994 Psychiatric appearance Overall: well-groomed, good eye contact 10/06/2016 None Full Exam - General 1994 Respiratory auscultation Lower lung field: diminished 10/06/2016 None Full Exam - General 1994 Respiratory auscultation Lower lung field: crackles 10/06/2016 None Full Exam - General 1994 Constitutional general appearance Development: well developed 07/02/2016 None Full Exam - General 1994 Constitutional general appearance Development: appears stated age 1107/02/2016 None Full Exam - General 1994 Constitutional general appearance Overall: well developed 07/02/2016 None Full Exam - General 1994 Constitutional general appearance Overall: in no acute distress 07/02/2016 None Full Exam - General 1994 Constitutional general appearance Overall: well nourished 07/02/2016 None Full Exam - General 1994 Eyes conjunctiva/eyelids Overall: conjunctiva clear 07/02/2016 None Full Exam - General 1994 Eyes conjunctiva/eyelids Overall: cornea clear 07/02/2016 None Full Exam - General 1994 Eyes conjunctiva/eyelids Overall: eyelids normal 07/02/2016 None Full Exam - General 1994 Eyes pupils and irises Overall: pupils equal, round, reactive to light and accomodation 07/02/2016 None Full Exam - General 1994 Ears/Nose/Throat otoscopic exam Overall: external auditory canals clear 07/02/2016 None Full Exam - General 1994 Ears/Nose/Throat otoscopic exam Overall: tympanic membranes clear 07/02/2016 None Full Exam - General 1994 Ears/Nose/Throat lips/teeth/gingiva Overall: benign lips 07/02/2016 None Full Exam - General 1994 Ears/Nose/Throat lips/teeth/gingiva Overall: normal dentition 07/02/2016 None Full Exam - General 1994 Ears/Nose/Throat lips/teeth/gingiva Overall: benign gingiva 07/02/2016 None Full Exam - General 1994 Ears/Nose/Throat lips/teeth/gingiva Overall: no masses 07/02/2016 None Full Exam - General 1994 Ears/Nose/Throat oral cavity/pharynx/larynx Overall: oral mucosa clear 07/02/2016 None Full Exam - General 1994 Ears/Nose/Throat oral cavity/pharynx/larynx Overall: oropharyngeal mucosa clear 07/02/2016 None Full Exam - General 1994 Ears/Nose/Throat oral cavity/pharynx/larynx Overall: no masses 07/02/2016 None Full Exam - General 1994 Respiratory auscultation Overall: breath sounds clear bilaterally 07/02/2016 None Full Exam - General 1994 Respiratory respiratory effort/rhythm Overall: no retractions 07/02/2016 None Full Exam - General 1994 Respiratory respiratory effort/rhythm Overall: normal rate 07/02/2016 None Full Exam - General 1994 Cardiovascular extremities Overall: no clubbing 07/02/2016 None Full Exam - General 1994 Cardiovascular auscultation of heart Overall: regular rate 07/02/2016 None Full Exam - General 1994 Cardiovascular auscultation of heart Overall: normal heart sounds 07/02/2016 artificial valve Full Exam - General 1994 Cardiovascular auscultation of heart Systolic murmur: late systolic 07/02/2016 None Full Exam - General 1994 Cardiovascular auscultation of heart Systolic murmur grade: II/ 07/02/2016 None Full Exam - General 1994 Cardiovascular auscultation of heart Systolic murmur location: LUSB 07/02/2016 None Full Exam - General 1994 Cardiovascular auscultation of heart Systolic murmur location: RUSB 07/02/2016 None Full Exam - General 1994 Abdomen abdominal exam Overall: normal bowel sounds 07/02/2016 None Full Exam - General 1994 Musculoskeletal digits and nails DIPs: deformity 07/02/2016 None Full Exam - General 1994 Musculoskeletal digits and nails PIPs: deformity 07/02/2016 None Full Exam - General 1994 Musculoskeletal lower extremity Palpation - ankle: effusion 07/02/2016 None Full Exam - General 1994 Musculoskeletal lower extremity ROM - ankle: pain with dorsi flexion 07/02/2016 None Full Exam - General 1994 Musculoskeletal gait and station Overall: normal gait 07/02/2016 None Full Exam - General 1994 Musculoskeletal gait and station Overall: normal station 07/02/2016 None Full Exam - General 1994 Integument inspection of skin Overall: no rash, lesions 07/02/2016 None Full Exam - General 1994 Psychiatric orientation/consciousness Overall: oriented to person, place and time 07/02/2016 None Full Exam - General 1994 Psychiatric mood and affect Overall: normal mood and affect 07/02/2016 None Full Exam - General 1994 Psychiatric appearance Overall: well-groomed, good eye contact 07/02/2016 None Full Exam - General 1994 Constitutional general appearance Overall: well developed 05/21/2016 None Full Exam - General 1994 Constitutional general appearance Overall: well nourished 05/21/2016 None Full Exam - General 1994 Eyes conjunctiva/eyelids Overall: conjunctiva clear 05/21/2016 None Full Exam - General 1994 Eyes conjunctiva/eyelids Overall: cornea clear 05/21/2016 None Full Exam - General 1994 Eyes conjunctiva/eyelids Overall: eyelids normal 05/21/2016 None Full Exam - General 1994 Eyes pupils and irises Overall: pupils equal, round, reactive to light and accomodation 05/21/2016 None Full Exam - General 1994 Ears/Nose/Throat otoscopic exam Overall: external auditory canals clear 05/21/2016 None Full Exam - General 1994 Ears/Nose/Throat otoscopic exam Overall: tympanic membranes clear 05/21/2016 None Full Exam - General 1994 Ears/Nose/Throat lips/teeth/gingiva Overall: benign lips 05/21/2016 None Full Exam - General 1994 Ears/Nose/Throat oral cavity/pharynx/larynx Overall: oral mucosa clear 05/21/2016 None Full Exam - General 1994 Ears/Nose/Throat oral cavity/pharynx/larynx Posterior Pharynx: clear post nasal drainage 05/21/2016 None Full Exam - General 1994 Respiratory auscultation Overall: breath sounds clear bilaterally 05/21/2016 None Full Exam - General 1994 Respiratory respiratory effort/rhythm Overall: no retractions 05/21/2016 None Full Exam - General 1994 Respiratory respiratory effort/rhythm Overall: normal rate 05/21/2016 None Full Exam - General 1994 Cardiovascular extremities Overall: no clubbing 05/21/2016 None Full Exam - General 1994 Cardiovascular auscultation of heart Overall: regular rate 05/21/2016 None Full Exam - General 1994 Cardiovascular auscultation of heart Overall: normal heart sounds 05/21/2016 artificial valve Full Exam - General 1994 Cardiovascular auscultation of heart Systolic murmur: late systolic 05/21/2016 None Full Exam - General 1994 Cardiovascular auscultation of heart Systolic murmur grade: II/ 05/21/2016 None Full Exam - General 1994 Cardiovascular auscultation of heart Systolic murmur location: LUSB 05/21/2016 None Full Exam - General 1994 Cardiovascular auscultation of heart Systolic murmur location: RUSB 05/21/2016 None Full Exam - General 1994 Abdomen abdominal exam Overall: normal bowel sounds 05/21/2016 None Full Exam - General 1994 Musculoskeletal spine, ribs and pelvis Spine: tender @ cervical spine 05/21/2016 None Full Exam - General 1994 Musculoskeletal spine, ribs and pelvis Spine: normal straight leg raise 05/21/2016 None Full Exam - General 1994 Psychiatric orientation/consciousness Overall: oriented to person, place and time 05/21/2016 None Full Exam - General 1994 Psychiatric mood and affect Overall: normal mood and affect 05/21/2016 None Full Exam - General 1994 Psychiatric appearance Overall: well-groomed, good eye contact 05/21/2016 None Full Exam - General 1994 Musculoskeletal head and neck Overall: cervical spine benign 05/21/2016 None Full Exam - General 1994 Musculoskeletal head and neck Overall: head atraumatic 05/21/2016 None Full Exam - General 1994 Constitutional general appearance Development: well developed 05/07/2016 None Full Exam - General 1994 Constitutional general appearance Development: appears stated age 0905/07/2016 None Full Exam - General 1994 Constitutional general appearance Overall: well developed 05/07/2016 None Full Exam - General 1994 Constitutional general appearance Overall: in no acute distress 05/07/2016 None Full Exam - General 1994 Constitutional general appearance Overall: well nourished 05/07/2016 None Full Exam - General 1994 Eyes conjunctiva/eyelids Overall: conjunctiva clear 05/07/2016 None Full Exam - General 1994 Eyes conjunctiva/eyelids Overall: cornea clear 05/07/2016 None Full Exam - General 1994 Eyes conjunctiva/eyelids Overall: eyelids normal 05/07/2016 None Full Exam - General 1994 Eyes pupils and irises Overall: pupils equal, round, reactive to light and accomodation 05/07/2016 None Full Exam - General 1994 Ears/Nose/Throat otoscopic exam Overall: external auditory canals clear 05/07/2016 None Full Exam - General 1994 Ears/Nose/Throat otoscopic exam Overall: tympanic membranes clear 05/07/2016 None Full Exam - General 1994 Ears/Nose/Throat lips/teeth/gingiva Overall: benign lips 05/07/2016 None Full Exam - General 1994 Ears/Nose/Throat lips/teeth/gingiva Overall: normal dentition 05/07/2016 None Full Exam - General 1995 Ears/Nose/Throat lips/teeth/gingiva Overall: benign gingiva 05/07/2016 None Full Exam - General 1994 Ears/Nose/Throat lips/teeth/gingiva Overall: no masses 05/07/2016 None Full Exam - General 1994 Ears/Nose/Throat oral cavity/pharynx/larynx Overall: oral mucosa clear 05/07/2016 None Full Exam - General 1995 Ears/Nose/Throat oral cavity/pharynx/larynx Overall: oropharyngeal mucosa clear 05/07/2016 None Full Exam - General 1994 Ears/Nose/Throat oral cavity/pharynx/larynx Overall: no masses 05/07/2016 None Full Exam - General 1994 Respiratory auscultation Overall: breath sounds clear bilaterally 05/07/2016 None Full Exam - General 1994 Respiratory respiratory effort/rhythm Overall: no retractions 05/07/2016 None Full Exam - General 1994 Respiratory respiratory effort/rhythm Overall: normal rate 05/07/2016 None Full Exam - General 1994 Cardiovascular extremities Overall: no clubbing 05/07/2016 None Full Exam - General 1994 Cardiovascular auscultation of heart Overall: regular rate 05/07/2016 None Full Exam - General 1994 Cardiovascular auscultation of heart Overall: normal heart sounds 05/07/2016 artificial valve Full Exam - General 1994 Cardiovascular auscultation of heart Systolic murmur: late systolic 05/07/2016 None Full Exam - General 1994 Cardiovascular auscultation of heart Systolic murmur grade: II/ 05/07/2016 None Full Exam - General 1994 Cardiovascular auscultation of heart Systolic murmur location: LUSB 05/07/2016 None Full Exam - General 1994 Cardiovascular auscultation of heart Systolic murmur location: RUSB 05/07/2016 None Full Exam - General 1994 Abdomen abdominal exam Overall: normal bowel sounds 05/07/2016 None Full Exam - General 1994 Musculoskeletal digits and nails DIPs: deformity 05/07/2016 None Full Exam - General 1994 Musculoskeletal digits and nails PIPs: deformity 05/07/2016 None Full Exam - General 1994 Musculoskeletal lower extremity Palpation - ankle: effusion 05/07/2016 None Full Exam - General 1994 Musculoskeletal lower extremity ROM - ankle: pain with dorsi flexion 05/07/2016 None Full Exam - General 1994 Musculoskeletal gait and station Overall: normal gait 05/07/2016 None Full Exam - General 1994 Musculoskeletal gait and station Overall: normal station 05/07/2016 None Full Exam - General 1994 Psychiatric orientation/consciousness Overall: oriented to person, place and time 05/07/2016 None Full Exam - General 1994 Psychiatric mood and affect Overall: normal mood and affect 05/07/2016 None Full Exam - General 1994 Psychiatric appearance Overall: well-groomed, good eye contact 05/07/2016 None Full Exam - General 1994 Integument inspection of skin Pigmentation: erythematous 05/07/2016 None Full Exam - General 1994 Constitutional general appearance Overall: well developed 04/28/2016 None Full Exam - General 1994 Constitutional general appearance Overall: well nourished 04/28/2016 None Full Exam - General 1994 Eyes conjunctiva/eyelids Overall: conjunctiva clear 04/28/2016 None Full Exam - General 1994 Eyes conjunctiva/eyelids Overall: cornea clear 04/28/2016 None Full Exam - General 1994 Eyes conjunctiva/eyelids Overall: eyelids normal 04/28/2016 None Full Exam - General 1994 Eyes pupils and irises Overall: pupils equal, round, reactive to light and accomodation 04/28/2016 None Full Exam - General 1994 Ears/Nose/Throat otoscopic exam Overall: external auditory canals clear 04/28/2016 None Full Exam - General 1994 Ears/Nose/Throat otoscopic exam Overall: tympanic membranes clear 04/28/2016 None Full Exam - General 1994 Ears/Nose/Throat lips/teeth/gingiva Overall: benign lips 04/28/2016 None Full Exam - General 1994 Ears/Nose/Throat oral cavity/pharynx/larynx Overall: oral mucosa clear 04/28/2016 None Full Exam - General 1994 Ears/Nose/Throat oral cavity/pharynx/larynx Posterior Pharynx: clear post nasal drainage 04/28/2016 None Full Exam - General 1994 Respiratory auscultation Overall: breath sounds clear bilaterally 04/28/2016 None Full Exam - General 1994 Respiratory respiratory effort/rhythm Overall: no retractions 04/28/2016 None Full Exam - General 1994 Respiratory respiratory effort/rhythm Overall: normal rate 04/28/2016 None Full Exam - General 1994 Cardiovascular extremities Overall: no clubbing 04/28/2016 None Full Exam - General 1994 Cardiovascular auscultation of heart Overall: regular rate 04/28/2016 None Full Exam - General 1994 Cardiovascular auscultation of heart Overall: normal heart sounds 04/28/2016 artificial valve Full Exam - General 1994 Cardiovascular auscultation of heart Systolic murmur: late systolic 04/28/2016 None Full Exam - General 1994 Cardiovascular auscultation of heart Systolic murmur grade: II/ 04/28/2016 None Full Exam - General 1994 Cardiovascular auscultation of heart Systolic murmur location: LUSB 04/28/2016 None Full Exam - General 1994 Cardiovascular auscultation of heart Systolic murmur location: RUSB 04/28/2016 None Full Exam - General 1994 Abdomen abdominal exam Overall: normal bowel sounds 04/28/2016 None Full Exam - General 1994 Musculoskeletal digits and nails DIPs: deformity 04/28/2016 None Full Exam - General 1994 Musculoskeletal digits and nails PIPs: deformity 04/28/2016 None Full Exam - General 1994 Musculoskeletal spine, ribs and pelvis Spine: tender @ cervical spine 04/28/2016 None Full Exam - General 1994 Musculoskeletal spine, ribs and pelvis Spine: normal straight leg raise 04/28/2016 None Full Exam - General 1994 Integument inspection of skin Overall: no rash, lesions 04/28/2016 None Full Exam - General 1994 Neurologic cranial nerves Overall: crainial nerves 2 - 12 grossly intact 04/28/2016 None Full Exam - General 1994 Psychiatric orientation/consciousness Overall: oriented to person, place and time 04/28/2016 None Full Exam - General 1994 Psychiatric mood and affect Overall: normal mood and affect 04/28/2016 None Full Exam - General 1994 Psychiatric appearance Overall: well-groomed, good eye contact 04/28/2016 None Full Exam - General 1994 Constitutional general appearance Overall: well developed 04/07/2016 None Full Exam - General 1994 Constitutional general appearance Overall: well nourished 04/07/2016 None Full Exam - General 1994 Eyes conjunctiva/eyelids Overall: conjunctiva clear 04/07/2016 None Full Exam - General 1994 Eyes conjunctiva/eyelids Overall: cornea clear 04/07/2016 None Full Exam - General 1994 Eyes conjunctiva/eyelids Overall: eyelids normal 04/07/2016 None Full Exam - General 1994 Eyes pupils and irises Overall: pupils equal, round, reactive to light and accomodation 04/07/2016 None Full Exam - General 1994 Ears/Nose/Throat otoscopic exam Overall: external auditory canals clear 04/07/2016 None Full Exam - General 1994 Ears/Nose/Throat lips/teeth/gingiva Overall: benign lips 04/07/2016 None Full Exam - General 1994 Ears/Nose/Throat oral cavity/pharynx/larynx Overall: oral mucosa clear 04/07/2016 None Full Exam - General 1994 Respiratory auscultation Overall: breath sounds clear bilaterally 04/07/2016 None Full Exam - General 1994 Respiratory respiratory effort/rhythm Overall: no retractions 04/07/2016 None Full Exam - General 1994 Respiratory respiratory effort/rhythm Overall: normal rate 04/07/2016 None Full Exam - General 1994 Cardiovascular extremities Overall: no clubbing 04/07/2016 None Full Exam - General 1994 Cardiovascular auscultation of heart Overall: regular rate 04/07/2016 None Full Exam - General 1994 Cardiovascular auscultation of heart Overall: normal heart sounds 04/07/2016 artificial valve Full Exam - General 1994 Cardiovascular auscultation of heart Systolic murmur: late systolic 04/07/2016 None Full Exam - General 1994 Cardiovascular auscultation of heart Systolic murmur grade: II/ 04/07/2016 None Full Exam - General 1994 Cardiovascular auscultation of heart Systolic murmur location: LUSB 04/07/2016 None Full Exam - General 1994 Cardiovascular auscultation of heart Systolic murmur location: RUSB 04/07/2016 None Full Exam - General 1994 Abdomen abdominal exam Overall: normal bowel sounds 04/07/2016 None Full Exam - General 1994 Musculoskeletal digits and nails DIPs: deformity 04/07/2016 None Full Exam - General 1994 Musculoskeletal digits and nails PIPs: deformity 04/07/2016 None Full Exam - General 1994 Integument inspection of skin Overall: no rash, lesions 04/07/2016 None Full Exam - General 1994 Psychiatric orientation/consciousness Overall: oriented to person, place and time 04/07/2016 None Full Exam - General 1994 Psychiatric mood and affect Overall: normal mood and affect 04/07/2016 None Full Exam - General 1994 Psychiatric appearance Overall: well-groomed, good eye contact 04/07/2016 None Full Exam - General 1994 Constitutional general appearance Evidence of Distress: mild distress 04/07/2016 None Full Exam - General 1994 Ears/Nose/Throat otoscopic exam Overall: tympanic membranes clear 04/07/2016 None Full Exam - General 1994 Ears/Nose/Throat oral cavity/pharynx/larynx Posterior Pharynx: clear post nasal drainage 04/07/2016 None Full Exam - General 1994 Musculoskeletal head and neck Cervical Spine: tender 04/07/2016 None Full Exam - General 1994 Musculoskeletal spine, ribs and pelvis Spine: tender @ cervical spine 04/07/2016 None Full Exam - General 1994 Musculoskeletal spine, ribs and pelvis Spine: normal straight leg raise 04/07/2016 None Full Exam - General 1994 Neurologic cranial nerves Overall: crainial nerves 2 - 12 grossly intact 04/07/2016 None Full Exam - General 1994 Constitutional general appearance Development: well developed 04/03/2016 None Full Exam - General 1994 Constitutional general appearance Development: appears stated age 0804/03/2016 None Full Exam - General 1994 Constitutional general appearance Overall: well developed 04/03/2016 None Full Exam - General 1994 Constitutional general appearance Overall: in no acute distress 04/03/2016 None Full Exam - General 1994 Constitutional general appearance Overall: well nourished 04/03/2016 None Full Exam - General 1994 Eyes conjunctiva/eyelids Overall: conjunctiva clear 04/03/2016 None Full Exam - General 1994 Eyes conjunctiva/eyelids Overall: cornea clear 04/03/2016 None Full Exam - General 1994 Eyes conjunctiva/eyelids Overall: eyelids normal 04/03/2016 None Full Exam - General 1994 Eyes pupils and irises Overall: pupils equal, round, reactive to light and accomodation 04/03/2016 None Full Exam - General 1994 Ears/Nose/Throat otoscopic exam Overall: external auditory canals clear 04/03/2016 None Full Exam - General 1994 Ears/Nose/Throat otoscopic exam Overall: tympanic membranes clear 04/03/2016 None Full Exam - General 1994 Ears/Nose/Throat lips/teeth/gingiva Overall: benign lips 04/03/2016 None Full Exam - General 1994 Ears/Nose/Throat lips/teeth/gingiva Overall: normal dentition 04/03/2016 None Full Exam - General 1994 Ears/Nose/Throat lips/teeth/gingiva Overall: benign gingiva 04/03/2016 None Full Exam - General 1994 Ears/Nose/Throat lips/teeth/gingiva Overall: no masses 04/03/2016 None Full Exam - General 1994 Ears/Nose/Throat oral cavity/pharynx/larynx Overall: oral mucosa clear 04/03/2016 None Full Exam - General 1994 Ears/Nose/Throat oral cavity/pharynx/larynx Overall: oropharyngeal mucosa clear 04/03/2016 None Full Exam - General 1994 Ears/Nose/Throat oral cavity/pharynx/larynx Overall: no masses 04/03/2016 None Full Exam - General 1994 Respiratory auscultation Overall: breath sounds clear bilaterally 04/03/2016 None Full Exam - General 1994 Respiratory respiratory effort/rhythm Overall: no retractions 04/03/2016 None Full Exam - General 1994 Respiratory respiratory effort/rhythm Overall: normal rate 04/03/2016 None Full Exam - General 1994 Cardiovascular extremities Overall: no clubbing 04/03/2016 None Full Exam - General 1994 Cardiovascular auscultation of heart Overall: regular rate 04/03/2016 None Full Exam - General 1994 Cardiovascular auscultation of heart Overall: normal heart sounds 04/03/2016 artificial valve Full Exam - General 1994 Cardiovascular auscultation of heart Systolic murmur: late systolic 04/03/2016 None Full Exam - General 1994 Cardiovascular auscultation of heart Systolic murmur grade: II/ 04/03/2016 None Full Exam - General 1994 Cardiovascular auscultation of heart Systolic murmur location: LUSB 04/03/2016 None Full Exam - General 1994 Cardiovascular auscultation of heart Systolic murmur location: RUSB 04/03/2016 None Full Exam - General 1994 Abdomen abdominal exam Overall: normal bowel sounds 04/03/2016 None Full Exam - General 1994 Musculoskeletal digits and nails DIPs: deformity 04/03/2016 None Full Exam - General 1994 Musculoskeletal digits and nails PIPs: deformity 04/03/2016 None Full Exam - General 1994 Musculoskeletal lower extremity Palpation - ankle: effusion 04/03/2016 --Resolved Full Exam - General 1994 Musculoskeletal lower extremity ROM - ankle: pain with dorsi flexion 04/03/2016 --Resolved Full Exam - General 1994 Musculoskeletal gait and station Overall: normal gait 04/03/2016 None Full Exam - General 1994 Musculoskeletal gait and station Overall: normal station 04/03/2016 None Full Exam - General 1994 Integument inspection of skin Overall: no rash, lesions 04/03/2016 None Full Exam - General 1994 Psychiatric orientation/consciousness Overall: oriented to person, place and time 04/03/2016 None Full Exam - General 1994 Psychiatric mood and affect Overall: normal mood and affect 04/03/2016 None Full Exam - General 1994 Psychiatric appearance Overall: well-groomed, good eye contact 04/03/2016 None Full Exam - General 1994 Constitutional general appearance Overall: well nourished 01/31/2016 None Full Exam - General 1994 Constitutional general appearance Overall: well developed 01/31/2016 None Full Exam - General 1994 Constitutional general appearance Overall: in no acute distress 01/31/2016 None Full Exam - General 1994 Eyes pupils and irises Overall: pupils equal, round, reactive to light and accomodation 01/31/2016 None Full Exam - General 1994 Eyes conjunctiva/eyelids Overall: conjunctiva clear 01/31/2016 None Full Exam - General 1994 Eyes conjunctiva/eyelids Overall: eyelids normal 01/31/2016 None Full Exam - General 1994 Eyes conjunctiva/eyelids Overall: cornea clear 01/31/2016 None Full Exam - General 1994 Ears/Nose/Throat lips/teeth/gingiva Overall: benign gingiva 01/31/2016 None Full Exam - General 1994 Ears/Nose/Throat lips/teeth/gingiva Overall: no masses 01/31/2016 None Full Exam - General 1994 Ears/Nose/Throat lips/teeth/gingiva Overall: normal dentition 01/31/2016 None Full Exam - General 1994 Ears/Nose/Throat lips/teeth/gingiva Overall: benign lips 01/31/2016 None Full Exam - General 1994 Ears/Nose/Throat oral cavity/pharynx/larynx Overall: oropharyngeal mucosa clear 01/31/2016 None Full Exam - General 1994 Ears/Nose/Throat oral cavity/pharynx/larynx Overall: no masses 01/31/2016 None Full Exam - General 1994 Ears/Nose/Throat oral cavity/pharynx/larynx Overall: oral mucosa clear 01/31/2016 None Full Exam - General 1994 Ears/Nose/Throat otoscopic exam Overall: tympanic membranes clear 01/31/2016 None Full Exam - General 1994 Ears/Nose/Throat otoscopic exam Overall: external auditory canals clear 01/31/2016 None Full Exam - General 1994 Respiratory auscultation Overall: breath sounds clear bilaterally 01/31/2016 None Full Exam - General 1994 Respiratory respiratory effort/rhythm Overall: normal rate 01/31/2016 None Full Exam - General 1994 Respiratory respiratory effort/rhythm Overall: no retractions 01/31/2016 None Full Exam - General 1994 Constitutional general appearance Development: appears stated age 0601/31/2016 None Full Exam - General 1994 Constitutional general appearance Development: well developed 01/31/2016 None Full Exam - General 1994 Cardiovascular extremities Overall: no clubbing 01/31/2016 None Full Exam - General 1994 Cardiovascular auscultation of heart Overall: regular rate 01/31/2016 None Full Exam - General 1994 Cardiovascular auscultation of heart Systolic murmur location: RUSB 01/31/2016 None Full Exam - General 1994 Cardiovascular auscultation of heart Systolic murmur location: LUSB 01/31/2016 None Full Exam - General 1994 Cardiovascular auscultation of heart Overall: normal heart sounds 01/31/2016 artificial valve Full Exam - General 1994 Cardiovascular auscultation of heart Systolic murmur grade: II/ 01/31/2016 None Full Exam - General 1994 Cardiovascular auscultation of heart Systolic murmur: late systolic 01/31/2016 None Full Exam - General 1994 Abdomen abdominal exam Overall: normal bowel sounds 01/31/2016 None Full Exam - General 1994 Integument inspection of skin Overall: no rash, lesions 01/31/2016 None Full Exam - General 1994 Musculoskeletal gait and station Overall: normal station 01/31/2016 None Full Exam - General 1994 Musculoskeletal gait and station Overall: normal gait 01/31/2016 None Full Exam - General 1994 Psychiatric orientation/consciousness Overall: oriented to person, place and time 01/31/2016 None Full Exam - General 1994 Psychiatric mood and affect Overall: normal mood and affect 01/31/2016 None Full Exam - General 1994 Psychiatric appearance Overall: well-groomed, good eye contact 01/31/2016 None Full Exam - General 1994 Musculoskeletal lower extremity ROM - ankle: pain with dorsi flexion 01/31/2016 None Full Exam - General 1994 Musculoskeletal lower extremity Palpation - ankle: effusion 01/31/2016 None Full Exam - General 1994 Musculoskeletal digits and nails DIPs: deformity 01/31/2016 None Full Exam - General 1994 Musculoskeletal digits and nails PIPs: deformity 01/31/2016 None Full Exam - General 1994 Constitutional general appearance Overall: well developed 11/29/2015 None Full Exam - General 1994 Constitutional general appearance Overall: in no acute distress 11/29/2015 None Full Exam - General 1994 Constitutional general appearance Overall: well nourished 11/29/2015 None Full Exam - General 1994 Eyes conjunctiva/eyelids Overall: conjunctiva clear 11/29/2015 None Full Exam - General 1994 Eyes conjunctiva/eyelids Overall: cornea clear 11/29/2015 None Full Exam - General 1994 Eyes conjunctiva/eyelids Overall: eyelids normal 11/29/2015 None Full Exam - General 1994 Eyes pupils and irises Overall: pupils equal, round, reactive to light and accomodation 11/29/2015 None Full Exam - General 1994 Ears/Nose/Throat external ear Overall: normal appearance 11/29/2015 None Full Exam - General 1994 Ears/Nose/Throat external ear Overall: no masses 11/29/2015 None Full Exam - General 1994 Ears/Nose/Throat external ear Overall: normal mastoids 11/29/2015 None Full Exam - General 1994 Ears/Nose/Throat external nose Overall: benign appearance 11/29/2015 None Full Exam - General 1994 Ears/Nose/Throat external nose Overall: no masses 11/29/2015 None Full Exam - General 1994 Ears/Nose/Throat external nose Overall: non-tender 11/29/2015 None Full Exam - General 1994 Ears/Nose/Throat otoscopic exam Overall: external auditory canals clear 11/29/2015 None Full Exam - General 1994 Ears/Nose/Throat otoscopic exam Overall: tympanic membranes clear 11/29/2015 None Full Exam - General 1994 Ears/Nose/Throat internal nose Overall: bilateral nasal cavities clear 11/29/2015 None Full Exam - General 1994 Ears/Nose/Throat internal nose Overall: no sinus tenderness 11/29/2015 None Full Exam - General 1994 Ears/Nose/Throat internal nose Overall: no drainage 11/29/2015 None Full Exam - General 1994 Ears/Nose/Throat internal nose Overall: nasopharynx benign 11/29/2015 None Full Exam - General 1994 Ears/Nose/Throat lips/teeth/gingiva Overall: benign lips 11/29/2015 None Full Exam - General 1994 Ears/Nose/Throat lips/teeth/gingiva Overall: normal dentition 11/29/2015 None Full Exam - General 1994 Ears/Nose/Throat lips/teeth/gingiva Overall: benign gingiva 11/29/2015 None Full Exam - General 1994 Ears/Nose/Throat lips/teeth/gingiva Overall: no masses 11/29/2015 None Full Exam - General 1994 Ears/Nose/Throat oral cavity/pharynx/larynx Overall: oral mucosa clear 11/29/2015 None Full Exam - General 1994 Ears/Nose/Throat oral cavity/pharynx/larynx Overall: oropharyngeal mucosa clear 11/29/2015 None Full Exam - General 1994 Ears/Nose/Throat oral cavity/pharynx/larynx Overall: no masses 11/29/2015 None Full Exam - General 1994 Respiratory auscultation Overall: breath sounds clear bilaterally 11/29/2015 None Full Exam - General 1994 Respiratory respiratory effort/rhythm Overall: no retractions 11/29/2015 None Full Exam - General 1994 Respiratory respiratory effort/rhythm Overall: normal rate 11/29/2015 None Full Exam - General 1994 Cardiovascular extremities Overall: no clubbing 11/29/2015 None Full Exam - General 1994 Cardiovascular auscultation of heart Overall: regular rate 11/29/2015 None Full Exam - General 1994 Cardiovascular auscultation of heart Overall: normal heart sounds 11/29/2015 None Full Exam - General 1994 Cardiovascular auscultation of heart Systolic murmur: holosystolic 11/29/2015 None Full Exam - General 1994 Cardiovascular auscultation of heart Systolic murmur grade: II/ 11/29/2015 None Full Exam - General 1994 Abdomen abdominal exam Overall: no tenderness 11/29/2015 None Full Exam - General 1994 Abdomen abdominal exam Overall: normal bowel sounds 11/29/2015 None Full Exam - General 1994 Musculoskeletal digits and nails Overall: no clubbing 11/29/2015 None Full Exam - General 1994 Musculoskeletal digits and nails Overall: digits benign 11/29/2015 None Full Exam - General 1994 Musculoskeletal gait and station Overall: normal gait 11/29/2015 None Full Exam - General 1994 Musculoskeletal gait and station Overall: normal station 11/29/2015 None Full Exam - General 1994 Neurologic mental status Overall: alert 11/29/2015 None Full Exam - General 1994 Neurologic mental status Overall: oriented 11/29/2015 None Full Exam - General 1994 Psychiatric orientation/consciousness Overall: oriented to person, place and time 11/29/2015 None Full Exam - General 1994 Psychiatric behavior/psychomotor activity Overall: no tics, normal psychomotor activity 11/29/2015 None Full Exam - General 1994 Psychiatric mood and affect Overall: normal mood and affect 11/29/2015 None Full Exam - General 1994 Psychiatric appearance Overall: well-groomed, good eye contact 11/29/2015 None Full Exam - General 1994 Constitutional general appearance Overall: well developed 10/01/2015 None Full Exam - General 1994 Constitutional general appearance Overall: in no acute distress 10/01/2015 None Full Exam - General 1994 Constitutional general appearance Overall: well nourished 10/01/2015 None Full Exam - General 1994 Eyes conjunctiva/eyelids Overall: conjunctiva clear 10/01/2015 None Full Exam - General 1994 Eyes conjunctiva/eyelids Overall: cornea clear 10/01/2015 None Full Exam - General 1994 Eyes conjunctiva/eyelids Overall: eyelids normal 10/01/2015 None Full Exam - General 1994 Eyes pupils and irises Overall: pupils equal, round, reactive to light and accomodation 10/01/2015 None Full Exam - General 1994 Ears/Nose/Throat external ear Overall: normal appearance 10/01/2015 None Full Exam - General 1994 Ears/Nose/Throat external ear Overall: no masses 10/01/2015 None Full Exam - General 1994 Ears/Nose/Throat external ear Overall: normal mastoids 10/01/2015 None Full Exam - General 1994 Ears/Nose/Throat external nose Overall: benign appearance 10/01/2015 None Full Exam - General 1994 Ears/Nose/Throat external nose Overall: no masses 10/01/2015 None Full Exam - General 1994 Ears/Nose/Throat external nose Overall: non-tender 10/01/2015 None Full Exam - General 1994 Ears/Nose/Throat otoscopic exam Overall: external auditory canals clear 10/01/2015 None Full Exam - General 1994 Ears/Nose/Throat otoscopic exam Overall: tympanic membranes clear 10/01/2015 None Full Exam - General 1994 Ears/Nose/Throat internal nose Overall: bilateral nasal cavities clear 10/01/2015 None Full Exam - General 1994 Ears/Nose/Throat internal nose Overall: no sinus tenderness 10/01/2015 None Full Exam - General 1994 Ears/Nose/Throat internal nose Overall: no drainage 10/01/2015 None Full Exam - General 1994 Ears/Nose/Throat internal nose Overall: nasopharynx benign 10/01/2015 None Full Exam - General 1994 Ears/Nose/Throat lips/teeth/gingiva Overall: benign lips 10/01/2015 None Full Exam - General 1994 Ears/Nose/Throat lips/teeth/gingiva Overall: normal dentition 10/01/2015 None Full Exam - General 1994 Ears/Nose/Throat lips/teeth/gingiva Overall: benign gingiva 10/01/2015 None Full Exam - General 1994 Ears/Nose/Throat lips/teeth/gingiva Overall: no masses 10/01/2015 None Full Exam - General 1994 Ears/Nose/Throat oral cavity/pharynx/larynx Overall: oral mucosa clear 10/01/2015 None Full Exam - General 1994 Ears/Nose/Throat oral cavity/pharynx/larynx Overall: oropharyngeal mucosa clear 10/01/2015 None Full Exam - General 1994 Ears/Nose/Throat oral cavity/pharynx/larynx Overall: no masses 10/01/2015 None Full Exam - General 1994 Respiratory auscultation Overall: breath sounds clear bilaterally 10/01/2015 None Full Exam - General 1994 Respiratory respiratory effort/rhythm Overall: no retractions 10/01/2015 None Full Exam - General 1994 Respiratory respiratory effort/rhythm Overall: normal rate 10/01/2015 None Full Exam - General 1994 Cardiovascular extremities Overall: no clubbing 10/01/2015 None Full Exam - General 1994 Cardiovascular auscultation of heart Overall: regular rate 10/01/2015 None Full Exam - General 1994 Cardiovascular auscultation of heart Overall: normal heart sounds 10/01/2015 None Full Exam - General 1994 Abdomen abdominal exam Overall: no tenderness 10/01/2015 None Full Exam - General 1994 Abdomen abdominal exam Overall: normal bowel sounds 10/01/2015 None Full Exam - General 1994 Musculoskeletal digits and nails Overall: no clubbing 10/01/2015 None Full Exam - General 1994 Musculoskeletal digits and nails Overall: digits benign 10/01/2015 None Full Exam - General 1994 Musculoskeletal gait and station Overall: normal gait 10/01/2015 None Full Exam - General 1994 Musculoskeletal gait and station Overall: normal station 10/01/2015 None Full Exam - General 1994 Integument inspection of skin Location: left leg 10/01/2015 None Full Exam - General 1994 Integument inspection of skin Location: right leg 10/01/2015 None Full Exam - General 1994 Integument inspection of skin Overall: few scattered moles, no gross abnormalities 10/01/2015 None Full Exam - General 1994 Integument inspection of skin Pigmentation: hemosideran pigment changes 10/01/2015 DUE TO CIRCULATION Full Exam - General 1994 Integument inspection of skin Pigmentation: hyperpigmentation 10/01/2015 None Full Exam - General 1994 Integument inspection of skin Consistency: thin 10/01/2015 None Full Exam - General 1994 Integument inspection of skin Consistency: dry 10/01/2015 None Full Exam - General 1994 Neurologic mental status Overall: alert 10/01/2015 None Full Exam - General 1994 Neurologic mental status Overall: oriented 10/01/2015 None Full Exam - General 1994 Psychiatric orientation/consciousness Overall: oriented to person, place and time 10/01/2015 None Full Exam - General 1994 Psychiatric behavior/psychomotor activity Overall: no tics, normal psychomotor activity 10/01/2015 None Full Exam - General 1994 Psychiatric mood and affect Overall: normal mood and affect 10/01/2015 None Full Exam - General 1994 Psychiatric appearance Overall: well-groomed, good eye contact 10/01/2015 None Full Exam - General 1994 Cardiovascular auscultation of heart Systolic murmur: holosystolic 10/01/2015 None Full Exam - General 1994 Cardiovascular auscultation of heart Systolic murmur grade: II/ 10/01/2015 None Full Exam - General 1994 Constitutional general appearance Overall: well nourished 08/30/2015 None Full Exam - General 1994 Constitutional general appearance Overall: well developed 08/30/2015 None Full Exam - General 1994 Constitutional general appearance Overall: in no acute distress 08/30/2015 None Full Exam - General 1994 Eyes pupils and irises Overall: pupils equal, round, reactive to light and accomodation 08/30/2015 None Full Exam - General 1994 Eyes conjunctiva/eyelids Overall: conjunctiva clear 08/30/2015 None Full Exam - General 1994 Eyes conjunctiva/eyelids Overall: eyelids normal 08/30/2015 None Full Exam - General 1994 Eyes conjunctiva/eyelids Overall: cornea clear 08/30/2015 None Full Exam - General 1994 Ears/Nose/Throat oral cavity/pharynx/larynx Overall: oropharyngeal mucosa clear 08/30/2015 None Full Exam - General 1994 Ears/Nose/Throat oral cavity/pharynx/larynx Overall: no masses 08/30/2015 None Full Exam - General 1994 Ears/Nose/Throat oral cavity/pharynx/larynx Overall: oral mucosa clear 08/30/2015 None Full Exam - General 1994 Ears/Nose/Throat lips/teeth/gingiva Overall: benign gingiva 08/30/2015 None Full Exam - General 1994 Ears/Nose/Throat lips/teeth/gingiva Overall: no masses 08/30/2015 None Full Exam - General 1994 Ears/Nose/Throat lips/teeth/gingiva Overall: normal dentition 08/30/2015 None Full Exam - General 1994 Ears/Nose/Throat lips/teeth/gingiva Overall: benign lips 08/30/2015 None Full Exam - General 1994 Ears/Nose/Throat internal nose Overall: nasopharynx benign 08/30/2015 None Full Exam - General 1994 Ears/Nose/Throat internal nose Overall: no sinus tenderness 08/30/2015 None Full Exam - General 1994 Ears/Nose/Throat internal nose Overall: bilateral nasal cavities clear 08/30/2015 None Full Exam - General 1994 Ears/Nose/Throat internal nose Overall: no drainage 08/30/2015 None Full Exam - General 1994 Ears/Nose/Throat external ear Overall: no masses 08/30/2015 None Full Exam - General 1994 Ears/Nose/Throat external ear Overall: normal appearance 08/30/2015 None Full Exam - General 1994 Ears/Nose/Throat external ear Overall: normal mastoids 08/30/2015 None Full Exam - General 1994 Ears/Nose/Throat external nose Overall: benign appearance 08/30/2015 None Full Exam - General 1994 Ears/Nose/Throat external nose Overall: non-tender 08/30/2015 None Full Exam - General 1994 Ears/Nose/Throat external nose Overall: no masses 08/30/2015 None Full Exam - General 1994 Ears/Nose/Throat otoscopic exam Overall: tympanic membranes clear 08/30/2015 None Full Exam - General 1994 Ears/Nose/Throat otoscopic exam Overall: external auditory canals clear 08/30/2015 None Full Exam - General 1994 Respiratory respiratory effort/rhythm Overall: normal rate 08/30/2015 None Full Exam - General 1994 Respiratory respiratory effort/rhythm Overall: no retractions 08/30/2015 None Full Exam - General 1994 Respiratory auscultation Overall: breath sounds clear bilaterally 08/30/2015 None Full Exam - General 1994 Cardiovascular auscultation of heart Overall: regular rate 08/30/2015 None Full Exam - General 1994 Cardiovascular auscultation of heart Overall: normal heart sounds 08/30/2015 None Full Exam - General 1994 Cardiovascular auscultation of heart Overall: no murmurs 08/30/2015 None Full Exam - General 1994 Cardiovascular extremities Overall: no clubbing 08/30/2015 None Full Exam - General 1994 Abdomen abdominal exam Overall: no tenderness 08/30/2015 None Full Exam - General 1994 Abdomen abdominal exam Overall: normal bowel sounds 08/30/2015 None Full Exam - General 1994 Musculoskeletal gait and station Overall: normal station 08/30/2015 None Full Exam - General 1994 Musculoskeletal gait and station Overall: normal gait 08/30/2015 None Full Exam - General 1994 Musculoskeletal digits and nails Overall: digits benign 08/30/2015 None Full Exam - General 1994 Musculoskeletal digits and nails Overall: no clubbing 08/30/2015 None Full Exam - General 1994 Psychiatric orientation/consciousness Overall: oriented to person, place and time 08/30/2015 None Full Exam - General 1994 Psychiatric behavior/psychomotor activity Overall: no tics, normal psychomotor activity 08/30/2015 None Full Exam - General 1994 Psychiatric mood and affect Overall: normal mood and affect 08/30/2015 None Full Exam - General 1994 Psychiatric appearance Overall: well-groomed, good eye contact 08/30/2015 None Full Exam - General 1994 Neurologic mental status Overall: alert 08/30/2015 None Full Exam - General 1994 Neurologic mental status Overall: oriented 08/30/2015 None Full Exam - General 1994 Integument inspection of skin Overall: few scattered moles, no gross abnormalities 08/30/2015 None Full Exam - General 1994 Integument inspection of skin Location: left leg 08/30/2015 None Full Exam - General 1994 Integument inspection of skin Location: right leg 08/30/2015 None Full Exam - General 1994 Integument inspection of skin Pigmentation: hyperpigmentation 08/30/2015 None Full Exam - General 1994 Integument inspection of skin Consistency: dry 08/30/2015 None Full Exam - General 1994 Integument inspection of skin Consistency: thin 08/30/2015 None Full Exam - General 1994 Integument inspection of skin Pigmentation: hemosideran pigment changes 08/30/2015 DUE TO CIRCULATION Full Exam - General 1994 Constitutional general appearance Development: well developed 07/31/2015 None Full Exam - General 1994 Constitutional general appearance Development: appears stated age 1207/31/2015 None Full Exam - General 1994 Constitutional general appearance Hygiene/Attention to Grooming: good hygiene 07/31/2015 None Full Exam - General 1994 Eyes conjunctiva/eyelids Overall: conjunctiva clear 07/31/2015 None Full Exam - General 1994 Eyes conjunctiva/eyelids Overall: cornea clear 07/31/2015 None Full Exam - General 1994 Eyes conjunctiva/eyelids Overall: eyelids normal 07/31/2015 None Full Exam - General 1994 Eyes pupils and irises Overall: pupils equal, round, reactive to light and accomodation 07/31/2015 None Full Exam - General 1994 Ears/Nose/Throat otoscopic exam Overall: external auditory canals clear 07/31/2015 None Full Exam - General 1994 Ears/Nose/Throat otoscopic exam Overall: tympanic membranes clear 07/31/2015 None Full Exam - General 1994 Ears/Nose/Throat lips/teeth/gingiva Overall: benign lips 07/31/2015 None Full Exam - General 1994 Ears/Nose/Throat lips/teeth/gingiva Overall: normal dentition 07/31/2015 None Full Exam - General 1994 Ears/Nose/Throat oral cavity/pharynx/larynx Overall: oral mucosa clear 07/31/2015 None Full Exam - General 1994 Ears/Nose/Throat oral cavity/pharynx/larynx Overall: oropharyngeal mucosa clear 07/31/2015 None Full Exam - General 1994 Ears/Nose/Throat oral cavity/pharynx/larynx Overall: hypopharynx benign 07/31/2015 None Full Exam - General 1994 Ears/Nose/Throat oral cavity/pharynx/larynx Overall: no masses 07/31/2015 None Full Exam - General 1994 Respiratory auscultation Overall: breath sounds clear bilaterally 07/31/2015 None Full Exam - General 1994 Respiratory respiratory effort/rhythm Overall: no retractions 07/31/2015 None Full Exam - General 1994 Respiratory respiratory effort/rhythm Overall: normal rate 07/31/2015 None Full Exam - General 1994 Cardiovascular extremities Overall: no clubbing 07/31/2015 None Full Exam - General 1994 Cardiovascular auscultation of heart Overall: regular rate 07/31/2015 None Full Exam - General 1994 Cardiovascular auscultation of heart Overall: normal heart sounds 07/31/2015 None Full Exam - General 1994 Abdomen abdominal exam Overall: no tenderness 07/31/2015 None Full Exam - General 1994 Abdomen abdominal exam Overall: normal bowel sounds 07/31/2015 None Full Exam - General 1994 Lymphatic neck nodes Overall: anterior cervical chain benign 07/31/2015 None Full Exam - General 1994 Lymphatic neck nodes Overall: posterior cervical chain benign 07/31/2015 None Full Exam - General 1994 Integument inspection of skin Overall: few scattered moles, no gross abnormalities 07/31/2015 None Full Exam - General 1994 Neurologic deep tendon reflexes Overall: deep tendon reflexes intact 07/31/2015 None Full Exam - General 1994 Neurologic cranial nerves Overall: crainial nerves 2 - 12 grossly intact 07/31/2015 None Full Exam - General 1994 Psychiatric orientation/consciousness Overall: oriented to person, place and time 07/31/2015 None Full Exam - General 1994 Psychiatric mood and affect Overall: normal mood and affect 07/31/2015 None Full Exam - General 1994 Constitutional general appearance Development: well developed 07/03/2015 None Full Exam - General 1994 Constitutional general appearance Development: appears stated age 1107/03/2015 None Full Exam - General 1994 Ears/Nose/Throat external ear Overall: normal appearance 07/03/2015 None Full Exam - General 1994 Ears/Nose/Throat external ear Overall: no masses 07/03/2015 None Full Exam - General 1994 Neck thyroid Overall: normal size 07/03/2015 None Full Exam - General 1994 Neck thyroid Overall: normal consistency 07/03/2015 None Full Exam - General 1994 Neck thyroid Overall: nontender 07/03/2015 None Full Exam - General 1994 Respiratory auscultation Overall: breath sounds clear bilaterally 07/03/2015 None Full Exam - General 1994 Cardiovascular auscultation of heart Overall: regular rate 07/03/2015 None Full Exam - General 1994 Cardiovascular auscultation of heart Systolic murmur: crescendo-decrescendo 07/03/2015 None Full Exam - General 1994 Abdomen abdominal exam Overall: no tenderness 07/03/2015 None Full Exam - General 1994 Abdomen abdominal exam Overall: normal bowel sounds 07/03/2015 None Full Exam - General 1994 Lymphatic neck nodes Overall: anterior cervical chain benign 07/03/2015 None Full Exam - General 1994 Lymphatic neck nodes Overall: posterior cervical chain benign 07/03/2015 None Full Exam - General 1994 Integument inspection of skin Pigmentation: ecchymosis 07/03/2015 None Full Exam - General 1994 Integument inspection of skin Pigmentation: hyperpigmentation 07/03/2015 shins consistent with venous stasis Full Exam - General 1994 Neurologic sensation Touch: (specify location of deficit): point localization pt unable to localize sites on feet that were touched on toes, dorsum and plantar surface. 07/03/2015 None Full Exam - General 1994 Psychiatric orientation/consciousness Overall: oriented to person, place and time 07/03/2015 None Full Exam - General 1994 Eyes pupils and irises Overall: pupils equal, round, reactive to light and accomodation 07/03/2015 None Full Exam - General 1994 Eyes conjunctiva/eyelids Overall: conjunctiva clear 07/03/2015 None Full Exam - General 1994 Eyes conjunctiva/eyelids Overall: eyelids normal 07/03/2015 None Full Exam - General 1994 Eyes conjunctiva/eyelids Overall: cornea clear 07/03/2015 None Full Exam - General 1994 Constitutional general appearance Development: well developed 04/10/2015 None Full Exam - General 1994 Constitutional general appearance Development: appears stated age 0804/10/2015 None Full Exam - General 1994 Eyes pupils and irises Pupil: round 04/10/2015 None Full Exam - General 1994 Eyes pupils and irises Pupil: reactive to light 04/10/2015 None Full Exam - General 1994 Eyes pupils and irises Pupil: reactive to accommodation 04/10/2015 None Full Exam - General 1994 Eyes conjunctiva/eyelids Conjunctiva: subconjunctival hemorrhage 04/10/2015 None Full Exam - General 1994 Ears/Nose/Throat external ear Overall: normal appearance 04/10/2015 None Full Exam - General 1994 Ears/Nose/Throat external ear Overall: no masses 04/10/2015 None Full Exam - General 1994 Neck thyroid Overall: normal size 04/10/2015 None Full Exam - General 1994 Neck thyroid Overall: normal consistency 04/10/2015 None Full Exam - General 1994 Neck thyroid Overall: nontender 04/10/2015 None Full Exam - General 1994 Respiratory auscultation Overall: breath sounds clear bilaterally 04/10/2015 None Full Exam - General 1994 Cardiovascular auscultation of heart Overall: regular rate 04/10/2015 None Full Exam - General 1994 Cardiovascular auscultation of heart Systolic murmur: crescendo-decrescendo 04/10/2015 None Full Exam - General 1994 Abdomen abdominal exam Overall: no tenderness 04/10/2015 None Full Exam - General 1994 Abdomen abdominal exam Overall: normal bowel sounds 04/10/2015 None Full Exam - General 1994 Lymphatic neck nodes Overall: posterior cervical chain benign 04/10/2015 None Full Exam - General 1994 Lymphatic neck nodes Overall: anterior cervical chain benign 04/10/2015 None Full Exam - General 1994 Integument inspection of skin Pigmentation: ecchymosis 04/10/2015 None Full Exam - General 1994 Integument inspection of skin Pigmentation: hyperpigmentation 04/10/2015 shins consistent with venous stasis Full Exam - General 1994 Psychiatric orientation/consciousness Overall: oriented to person, place and time 04/10/2015 None Full Exam - General 1994 Neurologic sensation Touch: (specify location of deficit): point localization pt unable to localize sites on feet that were touched on toes, dorsum and plantar surface. 04/10/2015 None Full Exam - General 1994 Constitutional general appearance Development: appears stated age 0501/11/2015 None Full Exam - General 1994 Constitutional general appearance Development: well developed 01/11/2015 None Full Exam - General 1994 Constitutional general appearance Hygiene/Attention to Grooming: good hygiene 01/11/2015 None Full Exam - General 1994 Eyes conjunctiva/eyelids Overall: conjunctiva clear 01/11/2015 None Full Exam - General 1994 Eyes conjunctiva/eyelids Overall: cornea clear 01/11/2015 None Full Exam - General 1994 Eyes conjunctiva/eyelids Overall: eyelids normal 01/11/2015 None Full Exam - General 1994 Eyes pupils and irises Overall: pupils equal, round, reactive to light and accomodation 01/11/2015 None Full Exam - General 1994 Ears/Nose/Throat otoscopic exam Overall: external auditory canals clear 01/11/2015 None Full Exam - General 1994 Ears/Nose/Throat otoscopic exam Overall: tympanic membranes clear 01/11/2015 None Full Exam - General 1994 Ears/Nose/Throat lips/teeth/gingiva Overall: benign lips 01/11/2015 None Full Exam - General 1994 Ears/Nose/Throat lips/teeth/gingiva Overall: normal dentition 01/11/2015 None Full Exam - General 1994 Ears/Nose/Throat oral cavity/pharynx/larynx Overall: hypopharynx benign 01/11/2015 None Full Exam - General 1994 Ears/Nose/Throat oral cavity/pharynx/larynx Overall: no masses 01/11/2015 None Full Exam - General 1994 Ears/Nose/Throat oral cavity/pharynx/larynx Overall: oral mucosa clear 01/11/2015 None Full Exam - General 1994 Ears/Nose/Throat oral cavity/pharynx/larynx Overall: oropharyngeal mucosa clear 01/11/2015 None Full Exam - General 1994 Respiratory auscultation Overall: breath sounds clear bilaterally 01/11/2015 None Full Exam - General 1994 Respiratory respiratory effort/rhythm Overall: no retractions 01/11/2015 None Full Exam - General 1994 Respiratory respiratory effort/rhythm Overall: normal rate 01/11/2015 None Full Exam - General 1994 Cardiovascular extremities Overall: no clubbing 01/11/2015 None Full Exam - General 1994 Cardiovascular auscultation of heart Overall: normal heart sounds 01/11/2015 None Full Exam - General 1994 Cardiovascular auscultation of heart Overall: regular rate 01/11/2015 None Full Exam - General 1994 Abdomen abdominal exam Overall: no tenderness 01/11/2015 None Full Exam - General 1994 Abdomen abdominal exam Overall: normal bowel sounds 01/11/2015 None Full Exam - General 1994 Integument inspection of skin Overall: few scattered moles, no gross abnormalities 01/11/2015 None Full Exam - General 1994 Neurologic deep tendon reflexes Overall: deep tendon reflexes intact 01/11/2015 None Full Exam - General 1994 Neurologic cranial nerves Overall: crainial nerves 2 - 12 grossly intact 01/11/2015 None Full Exam - General 1994 Psychiatric orientation/consciousness Overall: oriented to person, place and time 01/11/2015 None Full Exam - General 1994 Psychiatric mood and affect Overall: normal mood and affect 01/11/2015 None Full Exam - General 1994 Lymphatic neck nodes Overall: anterior cervical chain benign 01/11/2015 None Full Exam - General 1994 Lymphatic neck nodes Overall: posterior cervical chain benign 01/11/2015 None Procedures Procedure Codes Date URINALYSIS NONAUTO W/O SCOPE CPT-4: 47310 11/01/2018 PPPS, SUBSEQ VISIT CPT- 4: G0439 06/08/2018 URINALYSIS NONAUTO W/O SCOPE CPT-4: 53576 05/25/2018 ADMIN INFLUENZA VIRUS VAC CPT-4: G0008 05/20/2018 FLU VACC PRSV FREE INC ANTIG CPT-4: 55487 05/20/2018 DRAIN/INJECT JOINT/BURSA CPT-4: 28631 03/23/2018 TRIAMCINOLONE ACET INJ NOS CPT-4: J3301 03/23/2018 DRAIN/INJECT JOINT/BURSA CPT-4: 49424 03/12/2018 TRIAMCINOLONE ACET INJ NOS CPT-4: J3301 03/12/2018 ROCEPHIN, PER 250 MG CPT- 4: J0696 02/08/2018 ADMIN INFLUENZA VIRUS VAC CPT-4: G0008 06/18/2017 FLU VACC PRSV FREE INC ANTIG CPT-4: 36850 06/18/2017 URINALYSIS NONAUTO W/O SCOPE CPT-4: 93573 04/27/2017 URINALYSIS NONAUTO W/O SCOPE CPT-4: 00368 2017 DRAIN/INJECT JOINT/BURSA CPT-4: 41576 03/03/2017 TRIAMCINOLONE ACET INJ NOS CPT-4: J3301 03/03/2017 TRIAMCINOLONE ACET INJ NOS CPT-4: J3301 10/06/2016 ROCEPHIN, PER 250 MG CPT- 4: J0696 10/06/2016 THER/PROPH/DIAG INJ SC/IM CPT-4: 02051 10/06/2016 TRIAMCINOLONE ACET INJ NOS CPT-4: J3301 04/28/2016 URINALYSIS NONAUTO W/O SCOPE CPT-4: 64884 04/03/2016 ADMIN INFLUENZA VIRUS VAC CPT-4: G0008 07/03/2015 FLU VACC PRSV FREE INC ANTIG CPT-4: 47102 07/03/2015 Vital Signs Date Vital 12/28/2018 Blood Pressure 1: 132/78 Code: 8480-6 Heart Rate 1: 82 bpm Height: 5'6" SpO2: 96% Weight: 12/24/2018 Blood Pressure 1: 138/78 Code: 8480-6 Heart Rate 1: 84 bpm Height: SpO2: 96% Weight: 12/21/2018 Blood Pressure 1: 162/82 Code: 8480-6 Heart Rate 1: 80 bpm Height: SpO2: 94% Weight: 11/23/2018 Blood Pressure 1: 134/78 Code: 8480-6 BMI: 27.4 Code: 20686-9 Heart Rate 1: 88 bpm Height: 5'6" Weight: 170 lbs 11/01/2018 Blood Pressure 1: 132/85 Code: 8480-6 BMI: 27.3 Code: 20789-5 Height: 5'6" Weight: 169 lbs 09/30/2018 Blood Pressure 1: 142/80 Code: 8480-6 BMI: 27.3 Code: 48765-7 Heart Rate 1: 84 bpm Height: 5'6" SpO2: 96% Weight: 169 lbs 07/20/2018 Blood Pressure 1: 124/70 Code: 8480-6 Heart Rate 1: 76 bpm Height: SpO2: 95% Weight: 06/29/2018 Blood Pressure 1: 142/80 Code: 8480-6 BMI: 27.8 Code: 97569-8 Heart Rate 1: 89 bpm Height: 5'6" SpO2: 94% Weight: 172 lbs 06/08/2018 Blood Pressure 1: 144/66 Code: 8480-6 BMI: 27.9 Code: 81891-7 Heart Rate 1: 85 bpm Height: 5'6" SpO2: 97% Waist Measure (cm): 97 cm Weight: 173 lbs 05/24/2018 Blood Pressure 1: 128/72 Code: 8480-6 BMI: 27.9 Code: 22863-7 Heart Rate 1: 82 bpm Height: 5'6" SpO2: 92% Weight: 173 lbs 04/06/2018 Blood Pressure 1: 138/88 Code: 8480-6 Heart Rate 1: 86 bpm Height: SpO2: 96% Weight: 03/23/2018 Blood Pressure 1: 150/88 Code: 8480-6 Heart Rate 1: 80 bpm Height: SpO2: 96% Weight: 03/12/2018 Heart Rate 1: 90 bpm Height: Weight: 03/02/2018 Blood Pressure 1: 128/80 Code: 8480-6 BMI: 28.4 Code: 46215-0 Heart Rate 1: 83 bpm Height: 5'6" SpO2: 93% Weight: 176 lbs 02/08/2018 Blood Pressure 1: 142/80 Code: 8480-6 Heart Rate 1: 78 bpm Height: 5'6" SpO2: 94% 12/03/2017 Blood Pressure 1: 124/78 Code: 8480-6 BMI: 27.9 Code: 17475-9 Heart Rate 1: 70 bpm Height: 5'6" SpO2: 97% Weight: 173 lbs 10/27/2017 Blood Pressure 1: 126/60 Code: 8480-6 Heart Rate 1: 65 bpm Height: 5'6" SpO2: 98% Weight: 10/12/2017 Blood Pressure 1: 126/74 Code: 8480-6 BMI: 26.0 Code: 50698-6 Heart Rate 1: 80 bpm Height: 5'6" SpO2: 89% Weight: 161 lbs 10/06/2017 Blood Pressure 1: 126/70 Code: 8480-6 BMI: 27.2 Code: 83724-2 Heart Rate 1: 73 bpm Height: 5'6" SpO2: 97% Weight: 168 lbs 8 oz 08/05/2017 Blood Pressure 1: 152/78 Code: 8480-6 BMI: 27.1 Code: 98122-6 Heart Rate 1: 73 bpm Height: 5'6" SpO2: 98% Weight: 168 lbs 07/06/2017 Blood Pressure 1: 148/70 Code: 8480-6 BMI: 26.6 Code: 52831-6 Heart Rate 1: 80 bpm Height: 5'6" SpO2: 97% Weight: 165 lbs 06/18/2017 Blood Pressure 1: 132/68 Code: 8480-6 BMI: 26.8 Code: 43329-0 Heart Rate 1: 84 bpm Height: 5'6" SpO2: 96% Weight: 166 lbs 05/11/2017 Blood Pressure 1: 144/68 Code: 8480-6 Heart Rate 1: 98 bpm Height: 5'6" SpO2: 98% Weight: 04/30/2017 Blood Pressure 1: 148/72 Code: 8480-6 04/27/2017 Blood Pressure 1: 146/78 Code: 8480-6 Heart Rate 1: 100 bpm Height: 5'6" SpO2: 98% Temperature: 37.2 (C) / 98.9 (F) Weight: 04/08/2017 Blood Pressure 1: 162/84 Code: 8480-6 BMI: 28.1 Code: 30963-2 Heart Rate 1: 98 bpm Height: 5'6" SpO2: 97% Weight: 174 lbs 03/03/2017 Blood Pressure 1: 154/88 Code: 8480-6 Heart Rate 1: 96 bpm Height: SpO2: 95% Weight: 01/05/2017 Blood Pressure 1: 142/78 Code: 8480-6 BMI: 28.9 Code: 48352-0 Heart Rate 1: 94 bpm Height: 5'6" SpO2: 95% Weight: 179 lbs 12/19/2016 Blood Pressure 1: 130/74 Code: 8480-6 Heart Rate 1: 91 bpm Height: 5'6" SpO2: 97% Weight: 11/13/2016 Blood Pressure 1: 152/82 Code: 8480-6 BMI: 28.4 Code: 14401-0 Heart Rate 1: 85 bpm Height: 5'6" SpO2: 96% Weight: 176 lbs 10/16/2016 Blood Pressure 1: 148/72 Code: 8480-6 BMI: 28.4 Code: 25257-4 Heart Rate 1: 90 bpm Height: 5'6" SpO2: 96% Weight: 176 lbs 10/06/2016 Blood Pressure 1: 150/80 Code: 8480-6 BMI: 28.4 Code: 05388-7 Heart Rate 1: 76 bpm Height: 5'6" SpO2: 97% Weight: 176 lbs 07/02/2016 Blood Pressure 1: 142/78 Code: 8480-6 BMI: 27.8 Code: 86222-9 Heart Rate 1: 85 bpm Height: 5'6" SpO2: 97% Weight: 172 lbs 05/21/2016 Blood Pressure 1: 166/80 Code: 8480-6 BMI: 27.9 Code: 38509-1 Heart Rate 1: 79 bpm Height: 5'6" SpO2: 98% Weight: 173 lbs 05/07/2016 Blood Pressure 1: 140/70 Code: 8480-6 BMI: 27.9 Code: 03436-1 Heart Rate 1: 82 bpm Height: 5'6" SpO2: 96% Weight: 173 lbs 04/28/2016 Blood Pressure 1: 128/86 Code: 8480-6 BMI: 27.4 Code: 94269-7 Heart Rate 1: 86 bpm Height: 5'6" SpO2: 96% Temperature: 36.1 (C) / 97.0 (F) Weight: 170 lbs 04/07/2016 Blood Pressure 1: 150/80 Code: 8480-6 Heart Rate 1: 94 bpm Height: SpO2: 95% Weight: 04/03/2016 Blood Pressure 1: 122/76 Code: 8480-6 BMI: 27.4 Code: 65541-0 Heart Rate 1: 84 bpm Height: 5'6" SpO2: 94% Weight: 170 lbs 01/31/2016 Blood Pressure 1: 124/82 Code: 8480-6 BMI: 27.8 Code: 09696-6 Heart Rate 1: 100 bpm Height: 5'6" SpO2: 97% Weight: 172 lbs 11/29/2015 Blood Pressure 1: 140/82 Code: 8480-6 Blood Pressure 1: 130/84 Code: 8480-6 BMI: 27.4 Code: 57756-2 Heart Rate 1: 97 bpm Height: 5'6" SpO2: 95% Weight: 170 lbs 10/01/2015 Blood Pressure 1: 130/80 Code: 8480-6 BMI: 27.4 Code: 96504-5 Heart Rate 1: 82 bpm Height: 5'6" SpO2: 97% Weight: 170 lbs 08/30/2015 Blood Pressure 1: 120/68 Code: 8480-6 BMI: 27.6 Code: 55638-8 Heart Rate 1: 91 bpm Height: 5'6" SpO2: 96% Weight: 171 lbs 07/31/2015 Blood Pressure 1: 180/80 Code: 8480-6 BMI: 27.4 Code: 17546-4 Heart Rate 1: 60 bpm Height: 5'6" SpO2: 94% Weight: 170 lbs 07/03/2015 Blood Pressure 1: 154/80 Code: 8480-6 BMI: 27.4 Code: 01258-8 Heart Rate 1: 98 bpm Height: 5'6" SpO2: 95% Weight: 170 lbs 04/10/2015 Blood Pressure 1: 138/72 Code: 8480-6 BMI: 27.8 Code: 73614-3 Heart Rate 1: 82 bpm Height: 5'6" SpO2: 98% Weight: 172 lbs 01/11/2015 Blood Pressure 1: 132/74 Code: 8480-6 BMI: 28.6 Code: 97910-8 Heart Rate 1: 88 bpm Height: 5'6" SpO2: 96% Weight: 177 lbs Functional Status No Functional Status data History of Present Illness Symptom Name Status Result Effective Date Notes Location in the [facility] 12/28/2018 None Location in the [facility] 12/28/2018 None Onset and Resolution resolved 12/28/2018 None Location in the [facility] 12/24/2018 None Location in the [facility] 12/24/2018 None Quality acute 12/24/2018 None Quality intermittent 12/24/2018 None Onset and Resolution ongoing 12/24/2018 None Pertinent Findings Denies fever 12/24/2018 None Location in the suprapubic area 12/21/2018 None Quality acute 12/21/2018 None Quality intermittent 12/21/2018 None Pertinent Findings Denies fever 12/21/2018 None Quality chronic 11/23/2018 None Significant Past Medical History Other: CHF 11/23/2018 None Triggers Other: dyspnea 11/23/2018 None Quality red 11/01/2018 None Onset and Resolution sudden in onset 11/01/2018 None Onset of Symptom 1-2 days ago 11/01/2018 None Limitation on Activities does not limit activities 11/01/2018 None Pertinent Findings Denies fever 11/01/2018 None Pertinent Findings Denies pelvic pain 11/01/2018 None Quality primary hypertension 09/30/2018 None Onset and Resolution ongoing 09/30/2018 None Onset of Symptom during adulthood 09/30/2018 None Blood Pressure Values not checking blood pressure at home 09/30/2018 None Alleviating Factors medication 09/30/2018 None Pertinent Findings Denies dizziness 09/30/2018 None Pertinent Findings Denies dyspnea 09/30/2018 she wears o2 at night and day time prn Pertinent Findings edema 09/30/2018 None Quality chronic 09/30/2018 None Quality worsening 09/30/2018 None Onset and Resolution ongoing 09/30/2018 None Onset of Symptom during adulthood 09/30/2018 None Severity moderate with clinical signs present 09/30/2018 None Triggers no known associated factors 09/30/2018 None Alleviating Factors medication 09/30/2018 None Pertinent Findings brittle nails 09/30/2018 None Pertinent Findings coarse hair 09/30/2018 None Pertinent Findings cold skin 09/30/2018 None Pertinent Findings decreased energy 09/30/2018 None Pertinent Findings dry skin 09/30/2018 None Pertinent Findings family history of thyroid disease 09/30/2018 None Pertinent Findings hair loss 09/30/2018 None Location diffusely 07/20/2018 None Quality aching 07/20/2018 None Pertinent Findings Denies right arm weakness 07/20/2018 None Pertinent Findings Denies right leg numbness 07/20/2018 None Pertinent Findings Denies right leg weakness 07/20/2018 None Onset of Symptom 1 weeks ago 07/20/2018 None hypertension Quality primary hypertension 06/29/2018 None hypertension Onset and Resolution ongoing 06/29/2018 None hypertension Onset of Symptom during adulthood 06/29/2018 None hypertension Blood Pressure Values not checking blood pressure at home 06/29/2018 None hypertension Alleviating Factors medication 06/29/2018 None hypertension Pertinent Findings Denies dizziness 06/29/2018 None hypertension Pertinent Findings dyspnea 06/29/2018 with activity hypertension Pertinent Findings edema 06/29/2018 None hypothyroid Quality chronic 06/29/2018 None hypothyroid Quality worsening 06/29/2018 None hypothyroid Onset and Resolution ongoing 06/29/2018 None hypothyroid Onset of Symptom during adulthood 06/29/2018 None hypothyroid Severity moderate with clinical signs present 06/29/2018 None hypothyroid Triggers no known associated factors 06/29/2018 None hypothyroid Alleviating Factors medication 06/29/2018 None hypothyroid Pertinent Findings brittle nails 06/29/2018 None hypothyroid Pertinent Findings coarse hair 06/29/2018 None hypothyroid Pertinent Findings cold skin 06/29/2018 None hypothyroid Pertinent Findings decreased energy 06/29/2018 None hypothyroid Pertinent Findings dry skin 06/29/2018 None hypothyroid Pertinent Findings family history of thyroid disease 06/29/2018 None hypothyroid Pertinent Findings hair loss 06/29/2018 None earache Location right ear 06/29/2018 None earache Quality acute 06/29/2018 None earache Onset and Resolution ongoing 06/29/2018 None Annual Medicare Wellness Exam Describe Your Health fair 06/08/2018 None Annual Medicare Wellness Exam Alcohol Use drinks 0-1 days per week 06/08/2018 -once or twice per year Annual Medicare Wellness Exam Alcohol Use drinks 1 drinks per day 06/08/2018 None Annual Medicare Wellness Exam Alcohol Use more than 5 drinks on one occasion no 06/08/2018 None Annual Medicare Wellness Exam Aspirin Use yes 06/08/2018 None Annual Medicare Wellness Exam Blood Glucose (self reported) don't know 06/08/2018 None Annual Medicare Wellness Exam Blood Pressure (self reported) diagnosed with hypertension 06/08/2018 None Annual Medicare Wellness Exam Cholesterol (self reported) don't know 06/08/2018 None Annual Medicare Wellness Exam Hemaglobin A-1C (self reported) don't know 06/08/2018 None Annual Medicare Wellness Exam Hours of Sleep 4-5 06/08/2018 None Annual Medicare Wellness Exam Interaction with Friends no 06/08/2018 None Annual Medicare Wellness Exam Exercise Habits does not exercise 06/08/2018 None Annual Medicare Wellness Exam Life Satisfaction satisfied 06/08/2018 None Annual Medicare Wellness Exam Motor Vehicle Safety always fastens seat belt: yes 06/08/2018 None Annual Medicare Wellness Exam Motor Vehicle Safety drives after drinking: no 06/08/2018 None Annual Medicare Wellness Exam Motor Vehicle Safety rides with someone who has been drinking: no 06/08/2018 None Annual Medicare Wellness Exam Smoking and Tobacco Use non smoker 06/08/2018 None Annual Medicare Wellness Exam Sun Exposure protects skin when outdoors: no 06/08/2018 None Annual Medicare Wellness Exam Depression (last 6 months) some of the time 06/08/2018 None Annual Medicare Wellness Exam Depression or Hopelessness some of the time 06/08/2018 None Annual Medicare Wellness Exam Interests & Pleasure some of the time 06/08/2018 None Annual Medicare Wellness Exam Stress some of the time 06/08/2018 None Annual Medicare Wellness Exam Handling Stress usually [place] effectively 06/08/2018 None Annual Medicare Wellness Exam Social & Emotional Support always 06/08/2018 None Annual Medicare Wellness Exam Nutrition servings of fried food / high fat foods per day: 0-1 06/08/2018 None Annual Medicare Wellness Exam Nutrition servings of high fiber / whole grain per day: 2 06/08/2018 None Annual Medicare Wellness Exam Nutrition servings of vegetables / fruit per day: 3 06/08/2018 None sore throat Location diffusely 05/24/2018 None sore throat Quality intermittent 05/24/2018 None sore throat Onset and Resolution ongoing 05/24/2018 None sore throat Onset of Symptom 2 weeks ago 05/24/2018 None sore throat Limitation on Activities does not limit oral intake 05/24/2018 None sore throat Pertinent Findings Denies cough 05/24/2018 None sore throat Pertinent Findings decreased energy level 05/24/2018 None sore throat Pertinent Findings Denies fever 05/24/2018 None vertigo Quality intermittent 05/24/2018 None vertigo Onset and Resolution gradual in onset 05/24/2018 None vertigo Onset of Symptom 3 weeks ago 05/24/2018 None vertigo Pertinent Findings dizziness 05/24/2018 None vertigo Pertinent Findings Denies ear pain 05/24/2018 None vertigo Pertinent Findings Denies syncope 05/24/2018 None edema Onset and Resolution ongoing 05/24/2018 None edema Onset of Symptom _ years ago 05/24/2018 None edema Frequency of Episodes increasing 05/24/2018 None edema Pertinent Findings Denies back pain 05/24/2018 None edema Pertinent Findings Denies decreased urinary output 05/24/2018 None edema Quality intermittent 05/24/2018 None edema Location on both ankles 05/24/2018 None back pain Location lumbar-sacral spine 04/06/2018 None back pain Quality constant 04/06/2018 None back pain Onset and Resolution ongoing 04/06/2018 None back pain Onset of Symptom 3 weeks ago 04/06/2018 None back pain Frequency of Episodes hourly 04/06/2018 None back pain Pertinent Findings Denies extremity numbness 04/06/2018 None back pain Pertinent Findings extremity weakness 04/06/2018 None back pain Pertinent Findings morning stiffness 04/06/2018 None back pain Pertinent Findings sleep disturbance 04/06/2018 None back pain Location lumbar-sacral spine 03/23/2018 None back pain Quality constant 03/23/2018 None back pain Onset and Resolution ongoing 03/23/2018 None back pain Onset of Symptom 3 weeks ago 03/23/2018 None back pain Frequency of Episodes hourly 03/23/2018 None back pain Pertinent Findings Denies extremity numbness 03/23/2018 None back pain Pertinent Findings extremity weakness 03/23/2018 None back pain Pertinent Findings morning stiffness 03/23/2018 None back pain Pertinent Findings sleep disturbance 03/23/2018 None back pain Location lumbar-sacral spine 03/12/2018 None back pain Quality acute 03/12/2018 None back pain Quality sharp 03/12/2018 None back pain Onset and Resolution sudden in onset 03/12/2018 None back pain Onset of Symptom 1 days ago 03/12/2018 None back pain Limitation on Activities is incapacitating 03/12/2018 None back pain Initial treatment heat 03/12/2018 None back pain Initial treatment ice 03/12/2018 None back pain Pertinent Findings Denies chills 03/12/2018 None back pain Pertinent Findings Denies fever 03/12/2018 None hypertension Quality primary hypertension 03/02/2018 None hypertension Onset and Resolution ongoing 03/02/2018 None hypertension Onset of Symptom during adulthood 03/02/2018 None hypertension Blood Pressure Values not checking blood pressure at home 03/02/2018 None hypertension Alleviating Factors medication 03/02/2018 None hypertension Pertinent Findings dizziness 03/02/2018 None hypertension Pertinent Findings dyspnea 03/02/2018 with activity hypertension Pertinent Findings edema 03/02/2018 None hypothyroid Quality chronic 03/02/2018 None hypothyroid Quality worsening 03/02/2018 None hypothyroid Onset and Resolution ongoing 03/02/2018 None hypothyroid Onset of Symptom during adulthood 03/02/2018 None hypothyroid Severity moderate with clinical signs present 03/02/2018 None hypothyroid Triggers no known associated factors 03/02/2018 None hypothyroid Alleviating Factors medication 03/02/2018 None hypothyroid Pertinent Findings brittle nails 03/02/2018 None hypothyroid Pertinent Findings coarse hair 03/02/2018 None hypothyroid Pertinent Findings cold skin 03/02/2018 None hypothyroid Pertinent Findings decreased energy 03/02/2018 None hypothyroid Pertinent Findings dry skin 03/02/2018 None hypothyroid Pertinent Findings family history of thyroid disease 03/02/2018 None hypothyroid Pertinent Findings hair loss 03/02/2018 None rash Location-Major on the head 02/08/2018 None rash Color red 02/08/2018 None rash Onset and Resolution sudden in onset 02/08/2018 None rash Pertinent Findings Denies pain 02/08/2018 None rash Pertinent Findings Denies itching 02/08/2018 None rash Quality acute 02/08/2018 None rash Onset of Symptom _ hours ago 02/08/2018 None rash Limitation on Activities does not limit activities 02/08/2018 None rash Severity worsening 02/08/2018 None hypertension Quality primary hypertension 12/03/2017 None hypertension Onset and Resolution ongoing 12/03/2017 None hypertension Onset of Symptom during adulthood 12/03/2017 None hypertension Blood Pressure Values not checking blood pressure at home 12/03/2017 None hypertension Alleviating Factors medication 12/03/2017 None hypertension Pertinent Findings dizziness 12/03/2017 None hypertension Pertinent Findings dyspnea 12/03/2017 with activity hypertension Pertinent Findings edema 12/03/2017 None hypothyroid Quality chronic 12/03/2017 None hypothyroid Quality worsening 12/03/2017 None hypothyroid Onset and Resolution ongoing 12/03/2017 None hypothyroid Onset of Symptom during adulthood 12/03/2017 None hypothyroid Severity moderate with clinical signs present 12/03/2017 None hypothyroid Triggers no known associated factors 12/03/2017 None hypothyroid Alleviating Factors medication 12/03/2017 None hypothyroid Pertinent Findings brittle nails 12/03/2017 None hypothyroid Pertinent Findings coarse hair 12/03/2017 None hypothyroid Pertinent Findings cold skin 12/03/2017 None hypothyroid Pertinent Findings decreased energy 12/03/2017 None hypothyroid Pertinent Findings dry skin 12/03/2017 None hypothyroid Pertinent Findings family history of thyroid disease 12/03/2017 None hypothyroid Pertinent Findings hair loss 12/03/2017 None sinus congestion Location frontal sinuses 10/27/2017 None sinus congestion Quality fullness 10/27/2017 None sinus congestion Frequency of Episodes unchanged 10/27/2017 None cough Onset and Resolution ongoing 10/27/2017 None chest congestion Quality constant 10/27/2017 None chest congestion Onset and Resolution ongoing 10/27/2017 None sinus congestion Onset and Resolution resolved 10/27/2017 None sinus congestion Location frontal sinuses 10/12/2017 None sinus congestion Quality fullness 10/12/2017 None sinus congestion Onset and Resolution ongoing 10/12/2017 None sinus congestion Frequency of Episodes unchanged 10/12/2017 None cough Onset and Resolution ongoing 10/12/2017 None chest congestion Quality constant 10/12/2017 None chest congestion Onset and Resolution ongoing 10/12/2017 None hypertension Quality primary hypertension 10/06/2017 None hypertension Onset and Resolution ongoing 10/06/2017 None hypertension Onset of Symptom during adulthood 10/06/2017 None hypertension Blood Pressure Values not checking blood pressure at home 10/06/2017 None hypertension Alleviating Factors medication 10/06/2017 None hypertension Pertinent Findings dizziness 10/06/2017 None hypertension Pertinent Findings dyspnea 10/06/2017 with activity hypertension Pertinent Findings edema 10/06/2017 None hypothyroid Quality chronic 10/06/2017 None hypothyroid Onset and Resolution ongoing 10/06/2017 None hypothyroid Quality worsening 10/06/2017 None hypothyroid Onset of Symptom during adulthood 10/06/2017 None hypothyroid Severity moderate with clinical signs present 10/06/2017 None hypothyroid Pertinent Findings brittle nails 10/06/2017 None hypothyroid Pertinent Findings coarse hair 10/06/2017 None hypothyroid Pertinent Findings cold skin 10/06/2017 None hypothyroid Pertinent Findings decreased energy 10/06/2017 None hypothyroid Pertinent Findings dry skin 10/06/2017 None hypothyroid Pertinent Findings family history of thyroid disease 10/06/2017 None hypothyroid Pertinent Findings hair loss 10/06/2017 None hypothyroid Triggers no known associated factors 10/06/2017 None hypothyroid Alleviating Factors medication 10/06/2017 None hypertension Quality primary hypertension 08/05/2017 None hypertension Onset and Resolution ongoing 08/05/2017 None hypertension Onset of Symptom during adulthood 08/05/2017 None hypertension Blood Pressure Values not checking blood pressure at home 08/05/2017 None hypertension Alleviating Factors medication 08/05/2017 None hypertension Pertinent Findings dizziness 08/05/2017 None hypertension Pertinent Findings dyspnea 08/05/2017 with activity hypertension Pertinent Findings edema 08/05/2017 None muscle weakness Quality both sides 08/05/2017 None muscle weakness Quality upper extremities 08/05/2017 None muscle weakness Quality lower extremities 08/05/2017 None muscle weakness Onset and Resolution ongoing 08/05/2017 None hypertension Quality primary hypertension 07/06/2017 None hypertension Onset and Resolution ongoing 07/06/2017 None hypertension Onset of Symptom during adulthood 07/06/2017 None hypertension Alleviating Factors medication 07/06/2017 None hypertension Blood Pressure Values not checking blood pressure at home 07/06/2017 - has been monitoring hypertension Pertinent Findings dizziness 07/06/2017 "once in a while" hypertension Pertinent Findings dyspnea 07/06/2017 if she goes too long without her oxygen hypertension Pertinent Findings edema 07/06/2017 None muscle weakness Quality both sides 07/06/2017 None muscle weakness Quality upper extremities 07/06/2017 None muscle weakness Quality lower extremities 07/06/2017 None muscle weakness Onset and Resolution ongoing 07/06/2017 None diarrhea Quality intermittent 07/06/2017 None diarrhea Triggers no known associated factors 07/06/2017 None diarrhea Quality loose 07/06/2017 None diarrhea Quality watery 07/06/2017 None diarrhea Pertinent Findings Denies fever 07/06/2017 None diarrhea Pertinent Findings nausea 07/06/2017 on Thursday morning diarrhea Pertinent Findings emesis 07/06/2017 on Thursday morning arm pain Location right upper arm 07/06/2017 None arm pain Quality acute 07/06/2017 None arm pain Quality intermittent 07/06/2017 None arm pain Mechanism of injury unknown 07/06/2017 None Hospital Follow Up _ infection 06/18/2017 None Hospital Follow Up _ cardiac disease 06/18/2017 None Hospital Follow Up _ Other: recent fall 06/18/2017 None Hospital Follow Up Quality acute 06/18/2017 None Hospital Follow Up Quality chronic illness 06/18/2017 INR Hospital Follow Up Location Right shoulder pain after fall 06/18/2017 None Hospital Follow Up Exacerbating Factors activity 06/18/2017 None Hospital Follow Up Exacerbating Factors exertion 06/18/2017 None Hospital Follow Up Pertinent Findings pain 06/18/2017 None Hospital Follow Up Pertinent Findings fever 06/18/2017 None Hospital Follow Up Pertinent Findings Other: recent fall and high PT/INR 06/18/2017 None fatigue Limitation on Activities moderately limits activities 05/11/2017 None fatigue Onset of Symptom 1 weeks ago 05/11/2017 None fatigue Frequency of Episodes daily 05/11/2017 None fatigue Pertinent Findings weakness 05/11/2017 None fatigue Quality constant 05/11/2017 None fatigue Onset and Resolution sudden in onset 05/11/2017 None muscle weakness Location diffusely 05/11/2017 None muscle weakness Onset and Resolution sudden in onset 05/11/2017 None shortness of breath Quality breathlessness 05/11/2017 None shortness of breath Quality intermittent 05/11/2017 None shortness of breath Onset and Resolution sudden in onset 05/11/2017 None shortness of breath Onset of Symptom 1 weeks ago 05/11/2017 None shortness of breath Frequency of Episodes daily 05/11/2017 None shortness of breath Frequency of Episodes increasing 05/11/2017 None back pain Location lumbar-sacral spine 04/27/2017 None back pain Quality acute 04/27/2017 None back pain Quality sharp 04/27/2017 None back pain Onset and Resolution sudden in onset 04/27/2017 None back pain Onset of Symptom 1 days ago 04/27/2017 None back pain Limitation on Activities is incapacitating 04/27/2017 None back pain Initial treatment heat 04/27/2017 None back pain Initial treatment ice 04/27/2017 None back pain Pertinent Findings Denies chills 04/27/2017 None back pain Pertinent Findings Denies fever 04/27/2017 None cough Location in the throat 04/27/2017 None cough Quality acute 04/27/2017 None cough Quality dry 04/27/2017 None cough Onset and Resolution sudden in onset 04/27/2017 None cough Onset of Symptom 4 days ago 04/27/2017 None cough Pertinent Findings chest discomfort 04/27/2017 None cough Pertinent Findings fever 04/27/2017 None cough Pertinent Findings weakness 04/27/2017 None cough Pertinent Findings Denies sputum production 04/27/2017 None cough Pertinent Findings nasal congestion 04/27/2017 None cough Pertinent Findings Denies muscle aches 04/27/2017 None cough Pertinent Findings lethargy 04/27/2017 None cough Pertinent Findings hoarseness 04/27/2017 None cough Limitation on Activities does not limit activities 04/27/2017 None cough Frequency of Episodes unchanged 04/27/2017 None cough Triggers known allergens 04/27/2017 None hypertension Quality intermittent 04/08/2017 None hypertension Quality primary hypertension 04/08/2017 None hypertension Onset and Resolution ongoing 04/08/2017 None hypertension Onset of Symptom during adulthood 04/08/2017 None hypertension Blood Pressure Values patient checking blood pressure at home - did not bring in readings 04/08/2017 -Checks occasionally hypertension Alleviating Factors medication 04/08/2017 None hypertension Pertinent Findings dizziness 04/08/2017 None hypertension Pertinent Findings dyspnea 04/08/2017 with extended amounts of activity hypertension Pertinent Findings Denies edema 04/08/2017 None low back pain Location on the left 04/08/2017 None low back pain Quality intermittent 04/08/2017 None low back pain Quality aching 04/08/2017 None low back pain Onset and Resolution ongoing 04/08/2017 None low back pain Limitation on Activities allows weight bearing activity 04/08/2017 None low back pain Limitation on Activities does not limit activities 04/08/2017 None low back pain Alleviating Factors medications 04/08/2017 (tylenol) fatigue Onset and Resolution ongoing 04/08/2017 None fatigue Onset of Symptom _ months ago 04/08/2017 None fatigue Limitation on Activities moderately limits activities 04/08/2017 None fatigue Frequency of Episodes daily 04/08/2017 None fatigue Timing of Episodes no specific time 04/08/2017 None fatigue Pertinent Findings lightheadedness 04/08/2017 None back pain Location lumbar-sacral spine 03/03/2017 None back pain Quality acute 03/03/2017 None back pain Quality sharp 03/03/2017 None back pain Onset and Resolution sudden in onset 03/03/2017 None back pain Onset of Symptom 1 days ago 03/03/2017 None back pain Limitation on Activities is incapacitating 03/03/2017 None back pain Initial treatment ice 03/03/2017 None back pain Initial treatment heat 03/03/2017 None back pain Pertinent Findings Denies chills 03/03/2017 None back pain Pertinent Findings Denies fever 03/03/2017 None hypertension Quality intermittent 01/05/2017 None hypertension Onset and Resolution ongoing 01/05/2017 None hypertension Onset of Symptom during adulthood 01/05/2017 None hypertension Blood Pressure Values patient checking blood pressure at home - did not bring in readings 01/05/2017 -Checks occasionally hypertension Alleviating Factors medication 01/05/2017 None hypertension Pertinent Findings dizziness 01/05/2017 None hypertension Pertinent Findings dyspnea 01/05/2017 with extended amounts of activity hypertension Pertinent Findings Denies edema 01/05/2017 None hypertension Quality primary hypertension 01/05/2017 None low back pain Location on the left 01/05/2017 None low back pain Quality intermittent 01/05/2017 None low back pain Quality aching 01/05/2017 None low back pain Onset and Resolution ongoing 01/05/2017 None low back pain Limitation on Activities allows weight bearing activity 01/05/2017 None low back pain Limitation on Activities does not limit activities 01/05/2017 None low back pain Alleviating Factors medications 01/05/2017 (tylenol) neck pain Location on the left 12/19/2016 None neck pain Quality sharp 12/19/2016 None neck pain Quality constant 12/19/2016 None neck pain Quality aching 12/19/2016 None neck pain Quality squeezing 12/19/2016 None neck pain Quality discomfort 12/19/2016 None neck pain Onset and Resolution sudden in onset 12/19/2016 None neck pain Onset of Symptom 4 days ago 12/19/2016 None neck pain Frequency of Episodes daily 12/19/2016 None dysphagia Location in the throat 11/13/2016 None dysphagia Quality acute 11/13/2016 None dysphagia Onset and Resolution resolved 11/13/2016 None hypertension Quality intermittent 11/13/2016 None hypertension Onset and Resolution ongoing 11/13/2016 None hypertension Onset of Symptom during adulthood 11/13/2016 None hypertension Blood Pressure Values patient checking blood pressure at home - did not bring in readings 11/13/2016 -Checks occasionally hypertension Alleviating Factors medication 11/13/2016 None hypertension Pertinent Findings Denies dizziness 11/13/2016 None hypertension Pertinent Findings dyspnea 11/13/2016 with extended amounts of activity hypertension Pertinent Findings Denies edema 11/13/2016 None fatigue Onset and Resolution ongoing 11/13/2016 None fatigue Limitation on Activities moderately limits activities 11/13/2016 None fatigue Alleviating Factors rest 11/13/2016 None dysphagia Quality improving 11/13/2016 None hypertension Quality intermittent 10/16/2016 None hypertension Onset and Resolution ongoing 10/16/2016 None hypertension Onset of Symptom during adulthood 10/16/2016 None hypertension Blood Pressure Values patient checking blood pressure at home - did not bring in readings 10/16/2016 -Checks occasionally hypertension Alleviating Factors medication 10/16/2016 None hypertension Pertinent Findings decreased energy 10/16/2016 None hypertension Pertinent Findings dizziness 10/16/2016 None hypertension Pertinent Findings dyspnea 10/16/2016 None hypertension Pertinent Findings Denies edema 10/16/2016 None cough Quality acute 10/16/2016 None cough Quality dry 10/16/2016 None cough Quality intermittent 10/16/2016 None cough Onset of Symptom 1 weeks ago 10/16/2016 None cough Pertinent Findings fever 10/16/2016 99.8 cough Pertinent Findings Denies sputum production 10/16/2016 None fatigue Onset and Resolution gradual in onset 10/16/2016 None fatigue Onset and Resolution ongoing 10/16/2016 None fatigue Limitation on Activities moderately limits activities 10/16/2016 None fatigue Frequency of Episodes unchanged 10/16/2016 None fatigue Alleviating Factors rest 10/16/2016 None arm pain Location right upper arm 10/16/2016 None arm pain Quality acute 10/16/2016 None arm pain Quality intermittent 10/16/2016 None arm pain Onset and Resolution ongoing 10/16/2016 since she received her flu shot in the fall cough Onset and Resolution ongoing 10/16/2016 None hypertension Quality intermittent 10/06/2016 None hypertension Onset and Resolution ongoing 10/06/2016 None hypertension Onset of Symptom during adulthood 10/06/2016 None hypertension Blood Pressure Values patient checking blood pressure at home - did not bring in readings 10/06/2016 -Checks occasionally hypertension Alleviating Factors medication 10/06/2016 None hypertension Pertinent Findings dizziness 10/06/2016 None hypertension Pertinent Findings dyspnea 10/06/2016 None hypertension Pertinent Findings Denies edema 10/06/2016 None fatigue Onset and Resolution gradual in onset 10/06/2016 None fatigue Onset and Resolution ongoing 10/06/2016 None fatigue Limitation on Activities moderately limits activities 10/06/2016 None fatigue Alleviating Factors rest 10/06/2016 None cough Quality acute 10/06/2016 None cough Quality intermittent 10/06/2016 None cough Quality dry 10/06/2016 None cough Onset and Resolution sudden in onset 10/06/2016 None cough Onset of Symptom 1 weeks ago 10/06/2016 None cough Pertinent Findings fever 10/06/2016 99.8 cough Pertinent Findings Denies sputum production 10/06/2016 None hypertension Pertinent Findings decreased energy 10/06/2016 None arm pain Location right upper arm 10/06/2016 None arm pain Quality intermittent 10/06/2016 None arm pain Quality acute 10/06/2016 None arm pain Onset and Resolution ongoing 10/06/2016 since she received her flu shot in the fall fatigue Frequency of Episodes unchanged 10/06/2016 None sore throat Location on both sides 07/02/2016 None sore throat Quality acute 07/02/2016 None sore throat Quality constant 07/02/2016 None sore throat Quality sharp 07/02/2016 None sore throat Onset and Resolution sudden in onset 07/02/2016 None dysphagia Location in the throat 07/02/2016 None dysphagia Quality acute 07/02/2016 None dysphagia Quality difficulty with all liquids and solids 07/02/2016 None dysphagia Onset and Resolution sudden in onset 07/02/2016 None hypertension Onset and Resolution ongoing 07/02/2016 None hypertension Onset of Symptom during adulthood 07/02/2016 None hypertension Blood Pressure Values patient checking blood pressure at home - did not bring in readings 07/02/2016 -Checks occasionally hypertension Alleviating Factors medication 07/02/2016 None hypertension Pertinent Findings Denies dizziness 07/02/2016 None hypertension Pertinent Findings dyspnea 07/02/2016 with extended amounts of activity hypertension Pertinent Findings Denies edema 07/02/2016 None sore throat Onset and Resolution resolved 07/02/2016 None dysphagia Onset and Resolution resolved 07/02/2016 None hypertension Quality intermittent 07/02/2016 None fatigue Onset and Resolution ongoing 07/02/2016 None fatigue Limitation on Activities moderately limits activities 07/02/2016 None fatigue Alleviating Factors rest 07/02/2016 None fatigue Onset and Resolution gradual in onset 07/02/2016 None sore throat Location on both sides 05/21/2016 None sore throat Quality acute 05/21/2016 None sore throat Quality constant 05/21/2016 None sore throat Quality sharp 05/21/2016 None sore throat Onset and Resolution sudden in onset 05/21/2016 None sore throat Onset and Resolution ongoing 05/21/2016 None sore throat Onset of Symptom 1+ months ago 05/21/2016 None sore throat Frequency of Episodes daily 05/21/2016 None sore throat Pertinent Findings Denies cough 05/21/2016 None sore throat Pertinent Findings Denies decreased energy level 05/21/2016 None sore throat Pertinent Findings Denies fever 05/21/2016 None dysphagia Quality acute 05/21/2016 None dysphagia Location in the throat 05/21/2016 None dysphagia Onset and Resolution sudden in onset 05/21/2016 None dysphagia Onset and Resolution ongoing 05/21/2016 None dysphagia Quality difficulty with all liquids and solids 05/21/2016 None dysphagia Onset of Symptom 1+ months ago 05/21/2016 None dysphagia Limitation on Activities limits oral intake 05/21/2016 None urinary frequency Onset and Resolution ongoing 05/21/2016 None sore throat Location on both sides 05/07/2016 None sore throat Quality sharp 05/07/2016 None sore throat Onset and Resolution ongoing 05/07/2016 None sore throat Frequency of Episodes daily 05/07/2016 None sore throat Pertinent Findings Denies decreased energy level 05/07/2016 None sore throat Pertinent Findings Denies fever 05/07/2016 None sore throat Pertinent Findings Denies unable to swallow 05/07/2016 None sore throat Quality constant 05/07/2016 None sore throat Onset and Resolution sudden in onset 05/07/2016 None sore throat Onset of Symptom 1+ months ago 05/07/2016 None sore throat Pertinent Findings Denies cough 05/07/2016 None sore throat Quality acute 05/07/2016 None sores Location-Major on the arms 05/07/2016 None sores Location-Major on the neck 05/07/2016 None sores Location-Head/Neck on the left side of the neck 05/07/2016 None sores Location-Extremities on the right arm 05/07/2016 None sores Quality acute 05/07/2016 None sores Color erythematous 05/07/2016 None sores Quality enlarging 05/07/2016 None sores Quality pruritic 05/07/2016 None sores Onset and Resolution sudden in onset 05/07/2016 None sores Onset of Symptom 1 days ago 05/07/2016 None sore throat Location on both sides 04/28/2016 None sore throat Quality sharp 04/28/2016 None sore throat Quality worsening 04/28/2016 None sore throat Onset and Resolution ongoing 04/28/2016 None sore throat Onset of Symptom 4 months ago 04/28/2016 None sore throat Frequency of Episodes daily 04/28/2016 None sore throat Pertinent Findings Denies decreased energy level 04/28/2016 None sore throat Pertinent Findings Denies fever 04/28/2016 None sore throat Pertinent Findings Denies unable to swallow 04/28/2016 None sore throat Location diffusely 04/07/2016 None sore throat Quality aching 04/07/2016 None sore throat Quality worsening 04/07/2016 None sore throat Onset and Resolution ongoing 04/07/2016 None sore throat Onset of Symptom 2-3 days ago 04/07/2016 None sore throat Frequency of Episodes daily 04/07/2016 None sore throat Pertinent Findings Denies cough 04/07/2016 None sore throat Pertinent Findings Denies fever 04/07/2016 None sore throat Pertinent Findings unable to lie down 04/07/2016 None neck pain Location diffusely 04/07/2016 None neck pain Location in the cervical spine 04/07/2016 None neck pain Location in the anterior area 04/07/2016 None neck pain Quality constant 04/07/2016 None neck pain Onset and Resolution sudden in onset 04/07/2016 None neck pain Mechanism of injury unknown 04/07/2016 None neck pain Pertinent Findings Denies ear pain 04/07/2016 None neck pain Pertinent Findings Denies extremity numbness 04/07/2016 None neck pain Pertinent Findings Denies extremity weakness 04/07/2016 None neck pain Pertinent Findings Denies fever 04/07/2016 None neck pain Pertinent Findings insomnia 04/07/2016 None neck pain Pertinent Findings Denies weakness 04/07/2016 None hypertension Quality intermittent 04/03/2016 None hypertension Onset and Resolution ongoing 04/03/2016 None hypertension Blood Pressure Values patient checking blood pressure at home - did not bring in readings 04/03/2016 None hypertension Severity not consistently severe symptoms, the symptoms fluctuate from no symptoms to anxiety and headaches 04/03/2016 None hypertension Frequency of Episodes unchanged 04/03/2016 None hypertension Triggers no known associated factors 04/03/2016 None hypertension Pertinent Findings dizziness 04/03/2016 occasional hypertension Pertinent Findings Denies dyspnea 04/03/2016 None fatigue Limitation on Activities moderately limits activities 04/03/2016 None fatigue Onset of Symptom _ weeks ago 04/03/2016 None fatigue Alleviating Factors rest 04/03/2016 None fatigue Pertinent Findings Denies cough 04/03/2016 None fatigue Pertinent Findings Denies dizziness 04/03/2016 None fatigue Pertinent Findings Denies dyspnea 04/03/2016 None fatigue Pertinent Findings Denies insomnia 04/03/2016 None urinary incontinence Quality worsening 04/03/2016 None urinary incontinence Onset and Resolution ongoing 04/03/2016 None urinary incontinence Frequency of Episodes daily 04/03/2016 None urinary incontinence Pertinent Findings Denies bladder pain 04/03/2016 None urinary incontinence Pertinent Findings chills 04/03/2016 None urinary incontinence Pertinent Findings Denies nausea 04/03/2016 None urinary incontinence Pertinent Findings Denies urinary urgency 04/03/2016 None tinnitus Location on the left 01/31/2016 None tinnitus Onset of Symptom 1 months ago 01/31/2016 None tinnitus Pertinent Findings Denies cough 01/31/2016 None tinnitus Pertinent Findings Denies motor weakness 01/31/2016 None rash Location-Major on the abdomen 01/31/2016 None rash Color red 01/31/2016 None rash Onset of Symptom 1 week ago 01/31/2016 None rash Pertinent Findings Denies itching 01/31/2016 None rash Pertinent Findings Denies tenderness 01/31/2016 None ankle pain Location on the left 01/31/2016 None ankle pain Onset of Symptom _ weeks ago 01/31/2016 None ankle pain Limitation on Activities allows weight bearing activity 01/31/2016 None ankle pain Pertinent Findings Denies decreased range of motion 01/31/2016 None ankle pain Pertinent Findings Denies warmth 01/31/2016 None hypertension Quality intermittent 11/29/2015 None hypertension Onset and Resolution ongoing 11/29/2015 None hypertension Blood Pressure Values patient checking blood pressure at home - did not bring in readings 11/29/2015 None hypertension Severity not consistently severe symptoms, the symptoms fluctuate from no symptoms to anxiety and headaches 11/29/2015 None hypertension Frequency of Episodes unchanged 11/29/2015 None hypertension Triggers no known associated factors 11/29/2015 None hypertension Pertinent Findings Denies dyspnea 11/29/2015 None earache Location right ear 11/29/2015 None earache Onset and Resolution ongoing 11/29/2015 None earache Onset of Symptom 2 weeks ago 11/29/2015 None earache Frequency of Episodes daily 11/29/2015 None vertigo Quality intermittent 11/29/2015 None vertigo Onset of Symptom 2 weeks ago 11/29/2015 None vertigo Frequency of Episodes weekly 11/29/2015 None vertigo Pertinent Findings dizziness 11/29/2015 None vertigo Pertinent Findings Denies nausea 11/29/2015 None earache Quality acute 11/29/2015 None hypertension Pertinent Findings dizziness 11/29/2015 occasional hypertension Quality intermittent 10/01/2015 None hypertension Onset and Resolution ongoing 10/01/2015 None hypertension Blood Pressure Values patient checking blood pressure at home - did not bring in readings 10/01/2015 she will bring them by tomorrow urinary incontinence Quality intermittent 10/01/2015 None urinary incontinence Onset and Resolution ongoing 10/01/2015 None urinary incontinence Onset of Symptom _ years ago 10/01/2015 None urinary incontinence Pertinent Findings Denies bladder pain 10/01/2015 None urinary incontinence Pertinent Findings Denies back pain 10/01/2015 None hypertension Pertinent Findings Denies dizziness 10/01/2015 None hypertension Pertinent Findings Denies dyspnea 10/01/2015 None hypertension Severity not consistently severe symptoms, the symptoms fluctuate from no symptoms to anxiety and headaches 10/01/2015 None hypertension Frequency of Episodes unchanged 10/01/2015 None hypertension Triggers no known associated factors 10/01/2015 None hypertension Quality intermittent 08/30/2015 None hypertension Onset and Resolution ongoing 08/30/2015 None hypertension Blood Pressure Values patient checking blood pressure at home - did not bring in readings 08/30/2015 she will bring them by tomorrow sore throat Quality acute 07/31/2015 None sore throat Onset and Resolution sudden in onset 07/31/2015 None sore throat Onset of Symptom 3 days ago 07/31/2015 since Thursday sore throat Pertinent Findings cough 07/31/2015 None cough Quality acute 07/31/2015 None cough Quality dry 07/31/2015 None cough Quality intermittent 07/31/2015 None cough Onset and Resolution sudden in onset 07/31/2015 None cough Onset of Symptom 3 days ago 07/31/2015 since Thursday cough Alleviating Factors OTC medications 07/31/2015 None muscle weakness Onset and Resolution ongoing 07/31/2015 "feels unsteady" muscle weakness Onset and Resolution gradual in onset 07/31/2015 None hypertension Quality chronic 07/31/2015 None hypertension Onset and Resolution ongoing 07/31/2015 None hypertension Onset of Symptom during adulthood 07/31/2015 None hypertension Pertinent Findings dizziness 07/31/2015 None hypertension Pertinent Findings dyspnea 07/31/2015 None hypertension Alleviating Factors medication 07/31/2015 None muscle weakness Location diffusely 07/31/2015 None muscle weakness Limitation on Activities moderately limits activities 07/31/2015 - not as physically active as she used to be - she is needing more help with going up and down stairs - she does not have to go up stairs in her house - abnormal bleeding and bruising Onset and Resolution ongoing 07/03/2015 None foot pain Location on the left 07/03/2015 None foot pain Location on the right 07/03/2015 None foot pain Length of Episodes 1 months 07/03/2015 None foot pain Pertinent Findings bruising 07/03/2015 None foot pain Pertinent Findings Denies pain with movement 07/03/2015 None anxiety Quality intermittent 07/03/2015 None anxiety Onset and Resolution gradual in onset 07/03/2015 None anxiety Onset of Symptom 4 months ago 07/03/2015 None dizziness Quality imbalance 07/03/2015 None dizziness Quality intermittent 07/03/2015 None dizziness Onset and Resolution gradual in onset 07/03/2015 None dizziness Onset of Symptom 1 months ago 07/03/2015 None abnormal bleeding and bruising Onset and Resolution ongoing 04/10/2015 None foot pain Location on the left 04/10/2015 None foot pain Location on the right 04/10/2015 None foot pain Length of Episodes 1 months 04/10/2015 None foot pain Pertinent Findings bruising 04/10/2015 None foot pain Pertinent Findings Denies pain with movement 04/10/2015 None urinary incontinence Quality intermittent 01/11/2015 None urinary incontinence Pertinent Findings Denies bladder pain 01/11/2015 None urinary incontinence Pertinent Findings Denies pelvic pain 01/11/2015 None memory loss Onset and Resolution ongoing 01/11/2015 None memory loss Pertinent Findings Denies difficulty reading 01/11/2015 None memory loss Pertinent Findings Denies difficulty writing 01/11/2015 None urinary incontinence Onset of Symptom during adulthood 01/11/2015 None urinary incontinence Onset and Resolution ongoing 01/11/2015 None urinary incontinence Triggers no known associated factors 01/11/2015 None Advance Directives No Advance Directive data Encounters Encounter Performer Location Codes Date EST. PATIENT, LEVEL III Diagnosis: Encounter for follow-up examination after completed treatment for conditions other than malignant neoplasm[ICD10: Z09] Wendi Anaya MD, [facility] CPT-4: 54300 12/28/2018 [id number] EST. PATIENT, LEVEL IV Diagnosis: Left lower quadrant pain[ICD10: R10.32] Diagnosis: Right lower quadrant pain[ICD10: R10.31] Wendi Anaya MD, [facility] CPT-4: 60839 12/24/2018 51156 EST. PATIENT, LEVEL III Diagnosis: Pelvic and perineal pain[ICD10: R10.2] Wendi Anaya MD, [facility] CPT- 4: 80301 12/21/2018 93071 EST. PATIENT, LEVEL III Diagnosis: Chronic systolic (congestive) heart failure[ICD10: I50.22] Diagnosis: Essential (primary) hypertension[ICD10: I10] Diagnosis: Hypoxemia[ICD10: R09.02] Wendi Anaya MD, [facility] CPT-4: 88107 11/23/2018 ([id number]) 64309 EST. PATIENT, LEVEL III Diagnosis: Dysuria[ICD10: R30.0] Diagnosis: Other specified noninflammatory disorders of vagina[ICD10: N89.8] Mimi Anaya MD, [facility] CPT-4: 17906 11/01/2018 ([id number]) 93148 EST. PATIENT, LEVEL IV Diagnosis: Essential (primary) hypertension[ICD10: I10] Diagnosis: Atrophy of thyroid (acquired)[ICD10: E03.4] Carleen Anaya MD, [facility] CPT-4: 98602 09/30/2018 ([id number]) 47847 EST. PATIENT, LEVEL III Diagnosis: Atrophy of thyroid (acquired)[ICD10: E03.4] Diagnosis: Essential (primary) hypertension[ICD10: I10] Carleen Anaya MD, [facility] CPT-4: 49579 07/20/2018 ([id number]) 90929 EST. PATIENT, LEVEL IV Diagnosis: Essential (primary) hypertension[ICD10: I10] Diagnosis: Atrophy of thyroid (acquired)[ICD10: E03.4] Diagnosis: Other fatigue[ICD10: R53.83] Diagnosis: Other insomnia[ICD10: G47.09] Carleen Anaya MD, [facility] CPT-4: 25130 06/29/2018 ([id number]) 38767 EST. PATIENT, LEVEL IV Diagnosis: Localized edema[ICD10: R60.0] Diagnosis: Muscle weakness (generalized)[ICD10: M62.81] Diagnosis: Dysuria[ICD10: R30.0] Diagnosis: correction (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 of anticoagulants[ICD10: Z79.01] Diagnosis: Essential (primary) hypertension[ICD10: I10] Mimi Anaya MD, [facility] CPT-4: 97821 05/24/2018 ([id number]) 40694 EST. PATIENT, LEVEL III Diagnosis: Lumbago with sciatica, right side[ICD10: M54.41] Diagnosis: Sciatica, right side[ICD10: M54.31] Carleen Anaya MD, [facility] CPT- 4: 44989 04/06/2018 ([id number]) 60971 EST. PATIENT, LEVEL III Diagnosis: Lumbago with sciatica, right side[ICD10: M54.41] Diagnosis: Sciatica, right side[ICD10: M54.31] Carleen Anaay MD, [facility] CPT- 4: 06002 03/23/2018 50676 EST. PATIENT, LEVEL III Diagnosis: Low back pain[ICD10: M54.5] Diagnosis: Sacroiliitis, not elsewhere classified[ICD10: M46.1] Wendi Anaya MD, [facility] CPT-4: 30181 03/12/2018 ([id number]) 60940 EST. PATIENT, LEVEL IV Diagnosis: Atrophy of thyroid (acquired)[ICD10: E03.4] Diagnosis: Essential (primary) hypertension[ICD10: I10] Diagnosis: Urge incontinence[ICD10: N39.41] Carleen Anaya MD, [facility] CPT-4: 46130 03/02/2018 ([id number]) 74771 EST. PATIENT, LEVEL III Diagnosis: Cellulitis of face[ICD10: L03.211] Mimi Anaya MD, [facility] CPT- 4: 16824 02/08/2018 ([id number]) 36887 EST. PATIENT, LEVEL IV Diagnosis: Atrophy of thyroid (acquired)[ICD10: E03.4] Diagnosis: Essential (primary) hypertension[ICD10: I10] Diagnosis: Urge incontinence[ICD10: N39.41] Carleen Anaya MD, [facility] CPT-4: 74138 12/03/2017 14129 EST. PATIENT, LEVEL IV Diagnosis: Essential (primary) hypertension[ICD10: I10] Diagnosis: Weakness[ICD10: R53.1] Diagnosis: Low back pain[ICD10: M54.5] Diagnosis: Other allergic rhinitis[ICD10: J30.89] Wendi Anaya MD, [facility] CPT- 4: 24367 10/27/2017 93841 EST. PATIENT, LEVEL IV Diagnosis: Pneumonia due to other specified bacteria[ICD10: J15.8] Diagnosis: Chronic systolic (congestive) heart failure[ICD10: I50.22] Wendi Anaya MD, [facility] CPT-4: 57366 10/12/2017 ([id number]) 72141 EST. PATIENT, LEVEL IV Diagnosis: Atrophy of thyroid (acquired)[ICD10: E03.4] Diagnosis: Nonscarring hair loss, unspecified[ICD10: L65.9] Diagnosis: Essential (primary) hypertension[ICD10: I10] Carleen Anaya MD, [facility] CPT-4: 29956 10/06/2017 ([id number]) 89967 EST. PATIENT, LEVEL IV Diagnosis: Atrophy of thyroid (acquired)[ICD10: E03.4] Diagnosis: Essential (primary) hypertension[ICD10: I10] Diagnosis: Localized edema[ICD10: R60.0] Carleen Anaya MD, [facility] CPT-4: 42616 08/05/2017 ([id number]) 76222 EST. PATIENT, LEVEL IV Diagnosis: Essential (primary) hypertension[ICD10: I10] Diagnosis: Weakness[ICD10: R53.1] Diagnosis: Other fecal abnormalities[ICD10: R19.5] Carleen Anaya MD, [facility] CPT-4: 72498 07/06/2017 ([id number]) 63186 EST. 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 CPT-4: 24792 06/18/2017 36038 EST. PATIENT, LEVEL IV Diagnosis: Pain in right shoulder[ICD10: M25.511] Diagnosis: Weakness[ICD10: R53.1] Diagnosis: Other fatigue[ICD10: R53.83] Diagnosis: Other malaise[ICD10: R53.81] Wendi Anaya MD, [facility] CPT-4: 22121 05/11/2017 ([id number]) Miscellaneous no charge Diagnosis: Essential (primary) hypertension[ICD10: I10] Mimi Anaya MD, [facility] CPT-4: 71927 04/30/2017 ([id number]) 58601 EST. PATIENT, LEVEL III Diagnosis: Acute recurrent maxillary sinusitis[ICD10: J01.01] Diagnosis: Urinary tract infection, site not specified[ICD10: N39.0] Mimi Anaya MD, [facility] CPT-4: 00512 04/27/2017 ([id number]) 87824 EST. PATIENT, LEVEL IV Diagnosis: Atrophy of thyroid (acquired)[ICD10: E03.4] Diagnosis: Essential (primary) hypertension[ICD10: I10] Diagnosis: Iron deficiency[ICD10: E61.1] Diagnosis: Other specified heart block[ICD10: I45.5] Carleen Anaya MD, [facility] CPT-4: 86752 04/08/2017 20040 EST. PATIENT, LEVEL III Diagnosis: Low back pain[ICD10: M54.5] Diagnosis: Sacroiliitis, not elsewhere classified[ICD10: M46.1] Wendi Anaya MD, [facility] CPT-4: 02222 03/03/2017 ([id number]) 20650 EST. PATIENT, LEVEL IV Diagnosis: Essential (primary) hypertension[ICD10: I10] Diagnosis: Atrophy of thyroid (acquired)[ICD10: E03.4] Diagnosis: Vascular dementia without behavioral disturbance[ICD10: F01.50] Carleen Anaya MD, [facility] CPT-4: 02978 01/05/2017 43321 EST. PATIENT, LEVEL III Diagnosis: Cervicalgia[ICD10: M54.2] Diagnosis: Other muscle spasm[ICD10: M62.838] Wendi Anaya MD, [facility] CPT-4: 18221 12/19/2016 ([id number]) 46708 EST. PATIENT, LEVEL III Diagnosis: Essential (primary) hypertension[ICD10: I10] Diagnosis: Gastro-esophageal reflux disease without esophagitis[ICD10: K21.9] Carleen Anaya MD, [facility] CPT-4: 19470 11/13/2016 ([id number]) 18164 EST. PATIENT, LEVEL III Diagnosis: Pain in right shoulder[ICD10: M25.511] Diagnosis: Insomnia due to medical condition[ICD10: G47.01] Carleen Anaya MD, [facility] CPT-4: 14846 10/16/2016 ([id number]) 47084 EST. PATIENT, LEVEL IV Diagnosis: Pneumonia due to other specified bacteria[ICD10: J15.8] Diagnosis: Pain in right shoulder[ICD10: M25.511] Diagnosis: Cough[ICD10: R05] Carleen Anaya MD, [facility] CPT-4: 78658 10/06/2016 ([id number]) 63102 EST. PATIENT, LEVEL IV Diagnosis: Essential (primary) hypertension[ICD10: I10] Diagnosis: Personal history of other specified conditions[ICD10: Z87.898] Diagnosis: Unsteadiness on feet[ICD10: R26.81] Carleen Anaya MD, [facility] CPT- 4: 64006 07/02/2016 ([id number]) 65327 EST. PATIENT, LEVEL IV Diagnosis: Dysphagia, pharyngeal phase[ICD10: R13.13] Diagnosis: Urge incontinence[ICD10: N39.41] Diagnosis: Gastro-esophageal reflux disease without esophagitis[ICD10: K21.9] aCrleen Anaya MD, [facility] CPT-4: 25153 05/21/2016 ([id number]) 19565 EST. PATIENT, LEVEL III Diagnosis: Gastro-esophageal reflux disease without esophagitis[ICD10: K21.9] Carleen Anaya MD, [facility] CPT-4: 33817 05/07/2016 ([id number]) 17279 EST. PATIENT, LEVEL III Diagnosis: Acute laryngopharyngitis[ICD10: J06.0] Diagnosis: Dysphagia, pharyngeal phase[ICD10: R13.13] Diagnosis: Allergic rhinitis due to pollen[ICD10: J30.1] Mimi Anaya MD, [facility] CPT-4: 69356 04/28/2016 ([id number]) Miscellaneous no charge Diagnosis: Acute laryngopharyngitis[ICD10: J06.0] Wendi Anaya MD, [facility] CPT- 4: 48379 04/10/2016 21374 EST. PATIENT, LEVEL IV Diagnosis: Cervicalgia[ICD10: M54.2] Diagnosis: Acute laryngopharyngitis[ICD10: J06.0] Diagnosis: correction (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 of anticoagulants[ICD10: Z79.01] Diagnosis: Other cystitis without hematuria[ICD10: N30.80] Wendi Anaya MD, [facility] CPT-4: 54210 04/07/2016 ([id number]) 88798 EST. PATIENT, LEVEL IV Diagnosis: Essential (primary) hypertension[ICD10: I10] Diagnosis: Hypothyroidism, unspecified[ICD10: E03.9] Diagnosis: Other fatigue[ICD10: R53.83] Diagnosis: Urge incontinence[ICD10: N39.41] Mimi Anaya MD, [facility] CPT- 4: 54576 04/03/2016 ([id number]) 57304 EST. PATIENT, LEVEL IV Diagnosis: Essential (primary) hypertension[ICD10: I10] Diagnosis: Pain in right ankle and joints of right foot[ICD10: M25.571] Diagnosis: Dizziness and giddiness[ICD10: R42] Diagnosis: Tinnitus, bilateral[ICD10: H93.13] Mimi Anaya MD, [facility] CPT- 4: 97586 01/31/2016 ([id number]) 79678 EST. PATIENT, LEVEL IV Diagnosis: Essential (primary) hypertension[ICD10: I10] Diagnosis: Otalgia, right ear[ICD10: H92.01] Diagnosis: Allergic rhinitis due to pollen[ICD10: J30.1] Diagnosis: Hypothyroidism, unspecified[ICD10: E03.9] Mimi Anaya MD, [facility] CPT-4: 67721 11/29/2015 ([id number]) 49842 EST. PATIENT, LEVEL IV Diagnosis: Essential (primary) hypertension[ICD10: I10] Diagnosis: Urge incontinence[ICD10: N39.41] Diagnosis: Unspecified dementia without behavioral disturbance[ICD10: F03.90] Mimi Anaya MD, [facility] CPT-4: 54653 10/01/2015 ([id number]) 73061 EST. PATIENT, LEVEL IV Diagnosis: Essential (primary) hypertension[ICD10: I10] Diagnosis: Hypothyroidism, unspecified[ICD10: E03.9] Diagnosis: Unspecified dementia without behavioral disturbance[ICD10: F03.90] Diagnosis: Urge incontinence[ICD10: N39.41] Mimi Anaya MD, [facility] CPT- 4: 93680 08/30/2015 ([id number]) 39620 EST. PATIENT, LEVEL IV Diagnosis: Essential (primary) hypertension[ICD10: I10] Diagnosis: Hypothyroidism, unspecified[ICD10: E03.9] Diagnosis: Hyperlipidemia, unspecified[ICD10: E78.5] Carleen Anaya MD, [facility] CPT-4: 39673 07/31/2015 ([id number]) 89710 EST. PATIENT, LEVEL IV Diagnosis: Essential (primary) hypertension[ICD10: I10] Diagnosis: correction (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 of anticoagulants[ICD10: Z79.01] Diagnosis: Dizziness and giddiness[ICD10: R42] Carleen Anaya MD, [facility] CPT- 4: 06846 07/03/2015 ([id number]) 88444 EST. PATIENT, LEVEL IV Diagnosis: ESSENTIAL HYPERTENSION[ICD9: 401.9] Diagnosis: MACULAR DEGENERATION[ICD9: 362.50] Diagnosis: Peripheral vascular disease[ICD9: 443.9] Diagnosis: Neuropathy[ICD9: 355.9] [facility] CPT-4: 26100 04/10/2015 ([id number]) OFFICE/OUTPATIENT VISIT NEW Diagnosis: ESSENTIAL HYPERTENSION[ICD9: 401.9] Diagnosis: HYPOTHYROIDISM[ICD9: 244.9] Diagnosis: URGE INCONTINENCE[ICD9: 788.31] Diagnosis: Constipation - functional[ICD9: 564.09] Carleen Anaya MD, [facility] CPT-4: 90244 01/11/2015 Plan of Care Planned Activity Notes Codes Status Date Visit Plan: abdominal pain - improved - pt is to finish abx as directed - pt is to notify clinic if symptoms do not continue to improve, if they return, or with any changes, questions, or concerns. 12/28/2018 Appointment: Wendi Uriostegui WPtel: [facility] ([facility] min) Complex 12/28/2018 Patient Education: Patient Medication Summary Completed 12/28/2018 Visit Plan: Low abdominal pain, possible Diverticulitis - rx for antibiotic sent to pt's pharmacy - pt advised to avoid seeds, nuts, popcorn, or any other food which has been proven to upset the pt's stomach. 12/24/2018 Appointment: Wendi Uriostegui WPtel: [address] [place], [place] [id number] (30 min) Complex 12/24/2018 Patient Education: Patient Medication Summary Completed 12/24/2018 Visit Plan: UTI - pt with positive urinalysis - culture sent if appropriate. Antibiotic electronically prescribed to pt's pharmacy of choice. Pt to call if symptoms do not improve. 12/21/2018 Appointment: Wend[facility] Uriostegui WPtel[facility] [phone] [facility] (30 min) Complex 12/21/2018 Patient Education: Patient Medication Summary Completed 12/21/2018 Care Plan: Urine Culture Pending 12/21/2018 Visit Plan: Hypertension - well controlled - continue with current medications, continue with no added salt diet. Pt has been encouraged to exercise daily. The pt has been advised to call the office if there are any acute concerns about change in blood pressure readings at home. CHF - congestive heart failure - Pt has Chronic congestive heart failure - and is currently fairly well maintained on the current medications. Today there is no change in the treatment course. If symptoms worsen, increase edema or more that 2-3 pound weight gain over a week without improvement in the symptoms with a decrease in the sodium of the diet, then the pt is to have the office alerted. Hypoxemia, CHF - Her SPO2 on room air at rest was 94%, her SPO2 walking on room air was 88%, her SPO2 with 2 L O2 per NC was 98%. Pt is to continue to use both night time and portable O2. 11/23/2018 Appointment: Wend[facility] Uriostegui [facility]el[facility] [phone] [facility] (30 min) Complex 11/23/2018 Patient Education: Patient Medication Summary Completed 11/23/2018 Visit Plan: Possible vaginal bleeding -patient has a history of total hysterectomy -no obvious bleeding today upon inspection -will culture urine -monitor symptoms and call if bleeding persists or worsens. 11/01/2018 Appointment: M[facility] Espinosa [facility]Ptel[facility] [phone] [phone] (30 min) Complex 11/01/2018 Patient Education: Patient Medication Summary Completed 11/01/2018 Visit Plan: Hypertension - well controlled - continue with current medications, continue with no added salt diet. Pt has been encouraged to exercise daily. The pt has been advised to call the office if there are any acute concerns about change in blood pressure readings at home. Hypothyroidism - excessively controlled - elevated free t4 and low tsh - therefore she has been directed to decrease to 175mcg daily of synthroid. - her dtr has been instructed to monitor pt to signs or symptoms of lack of adequate supplementation. Pt is to continue with current dose of medication unless directed otherwise. Check labs a t regular intervals q 3 months or q 6 months based on previous levels of control. 09/30/2018 Appointment: Carleen Anaya WPtel: [facility]5 [phone] (15 min) Moderate 09/30/2018 Patient Education: Patient Medication Summary Completed 09/30/2018 Appointment: Carleen Anaya WPtel: [facility]5 [phone] (15 min) Moderate 09/22/2018 Visit Plan: Hypothyroidism - pt with chronic hypothyroidism, slightly over supplemented decrease to 200mcg tue/thur and 175mcg m/we/fri/sat/sun, will monitor pt to signs or symptoms of lack of adequate supplementation. Pt is to continue with current dose of medication unless directed otherwise. Check labs at regular intervals q 3 months or q 6 months based on previous levels of control. Hypertension - well controlled - continue with current medications, continue with no added salt diet. Pt has been encouraged to exercise daily. The pt has been advised to call the office if there are any acute concerns about change in blood pressure readings at home. 07/20/2018 Appointment: Carleen Anaya WPtel: [facility] (15 min) Moderate 07/20/2018 Patient Education: Patient Medication Summary Completed 07/20/2018 Visit Plan: Hypertension - well controlled - continue with current medications, continue with no added salt diet. Pt has been encouraged to exercise daily. The pt has been advised to call the office if there are any acute concerns about change in blood pressure readings at home. Hypothyroidism - pt with chronic hypothyroidism, continue with current medication, will monitor pt to signs or symptoms of lack of adequate supplementation. Pt is to continue with current dose of medication unless directed otherwise. Check labs at regular intervals q 3 months or q 6 months based on previous levels of control. Fatigue and Insomnia - Discussed with patient - I have advised that she needs to move back in with her daughter as she was feeling better and sleeping better when she was there, however she has indicated that she will not do so at this time. 06/29/2018 Appointment: Carleen Anaya WPtel: [phone] [facility] (15 min) Moderate 06/29/2018 Patient Education: Patient Medication Summary Completed 06/29/2018 Visit Plan: Medicare Exam - today we discussed the patients past history, immunizations, preventative exams/evaluations - colonoscopy, fecal occult blood testing, routine labs for renal function, glucose, cholesterol, osteoporosis evaluations, cardiovascular testing and cancer screenings. We have also discussed mental health and the signs/symptoms of depression. The patient was advised of home safety evaluations and the need to make sure that as the aging process continues, we need to be aware of different ways to make the home a safer place to reside. The patient has also been counseled that exercise is necessary - and of utmost importance as we age to help decrease fall risk and to maintain independence in the home. Today we discussed the need for the patient to create paperwork for Advanced directives as well as for the patient to provide this office with a copy of her DOPA paperwork for health care surrogate. 06/08/2018 Appointment: Mimi Espinosa WPtel: [phone] [facility] - Annual Wellness Visit 06/08/2018 Patient Education: Patient Medication Summary Completed 06/08/2018 Appointment: Nurse Visit 05/27/2018 Appointment: Lab Draw 05/25/2018 Patient Education: Patient Medication Summary Completed 05/25/2018 Visit Plan: Edema - pt has been advised to elevate legs to prevent dependent edema, compression has been recommended to help to naturally decrease peripheral edema. Diuretic use has been discussed and pt has been instructed in appropriate use of such medication as necessary to further attempt to reduce peripheral edema. Weakness-fatigue- check labs Dysuria- check UA UPG-tcixgewklm-ey changes in medications 05/24/2018 Appointment: Mimi Espinosa WPtel: [facility]3 [phone] (15 min) Moderate 05/24/2018 Patient Education: Patient Medication Summary Completed 05/24/2018 Appointment: Injection 05/20/2018 Patient Education: Patient Medication Summary Completed 05/20/2018 Visit Plan: Sciatica- pt to continue with aleve twice daily and cyclobenzaprine x 1 week. Pt is to call if the symptoms do not improve or if they worsen. referral to [facility] physical therapy. 04/06/2018 Appointment: Carleen Anaya WPtel: [facility]9 [phone] (15 min) Moderate 04/06/2018 Patient Education: Patient Medication Summary Completed 04/06/2018 Visit Plan: Sciatica- pt to start on aleve twice daily and cyclobenzaprine x 1 week. Pt is to call if the symptoms do not improve or if they worsen. 03/23/2018 Visit Plan: Sciatica- pt to start on aleve twice daily and cyclobenzaprine x 1 week. Pt is to call if the symptoms do not improve or if they worsen. [id number] - kenalog 03/23/2018 Appointment: Carleen Anaya WPtel: [facility]3 [id number] (15 min) Moderate 03/23/2018 Patient Education: Patient Medication Summary Completed 03/23/2018 Visit Plan: Low back pain- The pt is to use prn antiinflammatories to manage acute pain. The patient is to call the office if the pain is worsening or does not improve. Sacroiliitis - back exercises discussed with the patient, pt to continue with anti-inflammatories. Pt is to call if the symptoms do not improve or if they worsen. Joint Injection - Pt was given post - injection instructions. The pt has been advised to use anti-inflammatories post injection today, ice to the injected site, call if redness, warmth, or increased pain occurs at the site of injection. 03/12/2018 Appointment: Wendi Uriostegui WPtel: [facility] (30 min) Complex 03/12/2018 Patient Education: Patient Medication Summary Completed 03/12/2018 Visit Plan: Hypothyroidism - pt with chronic hypothyroidism, continue with current medication, will monitor pt to signs or symptoms of lack of adequate supplementation. Pt is to continue with current dose of medication unless directed otherwise. Check labs at regular intervals wither q 3 months or q 6 months based on previous levels of control. Hypertension - well controlled - continue with current medications, continue with no added salt diet. Pt has been encouraged to exercise daily. The pt has been advised to call the office if there are any acute concerns about change in blood pressure readings at home. U rge Incontinence - Monitor symptoms - continue with myrbetric 03/02/2018 Appointment: Carleen Anaya WPtel: [phone] [facility] (15 min) Moderate 03/02/2018 Patient Education: Patient Medication Summary Completed 03/02/2018 Appointment: (10 min) Simple 02/09/2018 Visit Plan: Cellulitis - start oral antibiotics as directed, return to clinic as directed, call for acute change in symptoms, worsening redness, warmth, discharge. 02/08/2018 Appointment: Mimi Espinosa WPtel: [phone] [phone] [place] (15 min) Moderate 02/08/2018 Patient Education: Patient Medication Summary Completed 02/08/2018 Visit Plan: Hypothyroidism - pt with chronic hypothyroidism, continue with current medication, will monitor pt to signs or symptoms of lack of adequate supplementation. Pt is to continue with current dose of medication unless directed otherwise. Check labs at regular intervals wither q 3 months or q 6 months based on previous levels of control. Hypertension - well controlled - continue with current medications, continue with no added salt diet. Pt has been encouraged to exercise daily. The pt has been advised to call the office if there are any acute concerns about change in blood pressure readings at home. U rge incontinence - sample of myrbetriq 50mg daily. 12/03/2017 Appointment: Carleen Anaya WPtel: [phone] [facility] [facility] [place] (15 min) Moderate 12/03/2017 Patient Education: Patient Medication Summary Completed 12/03/2017 Visit Plan: Weakness, fatigue - UA negative - pt is to consider PT - will have pt restart the Vitamin D and notify clinic if no improvement, or with any changes, questions, or conerns. Hypertension - well controlled - continue with current medications, continue with no added salt diet. Pt has been encouraged to exercise daily. The pt has been advised to call the office if there are any acute concerns about change in blood pressure readings at home. Allergies - chronic - recommended pt to use allergy medication as prescribed. Pt has been counseled as to the appropriate use of the medication. Pt to call if allergy symptoms are not controlled with the medication. If using nasal spray, instructions as follows: Nasal spray- use twice daily, one spray per nostril twice daily, after 30 minutes, rinse out nose with saline spray.. Use opposite hand per nostril to spray in the nasal steroid allergy spray. 10/27/2017 Appointment: Wendi Uriostegui WPtel: [address] [place], [place] [id number] (15 min) Moderate 10/27/2017 Patient Education: Patient Medication Summary Completed 10/27/2017 Visit Plan: Pneumonia - Pt has been diagnosed with pneumonia by physical exam. A chest xray has been ordered as have antibiotics. The pt is aware of the diagnosis and the need for acute treatment of this illness. 10/12/2017 Appointment: Wendi Uriostegui WPtel: [facility]6 [facility] (15 min) Moderate 10/12/2017 Patient Education: Patient Medication Summary Completed 10/12/2017 Visit Plan: Hypertension - well controlled - continue with current medications, continue with no added salt diet. Pt has been encouraged to exercise daily. The pt has been advised to call the office if there are any acute concerns about change in blood pressure readings at home. Hypothyroidism - pt with chronic hypothyroidism, continue with current medication, will monitor pt to signs or symptoms of lack of adequate supplementation. Pt is to continue with current dose of medication unless directed otherwise. Check labs at regular intervals wither q 3 months or q 6 months based on previous levels of control. H air loss - likely due to thyroid - check labs today. 10/06/2017 Appointment: Carleen Anaya WPtel: [facility]7 [facility] (15 min) Moderate 10/06/2017 Patient Education: Patient Medication Summary Completed 10/06/2017 Visit Plan: Hypothyroidism - pt with chronic hypothyroidism, continue with current medication, will monitor pt to signs or symptoms of lack of adequate supplementation. Pt is to continue with current dose of medication unless directed otherwise. Check labs at regular intervals wither q 3 months or q 6 months based on previous levels of control. check labs today Hypertension - well controlled - continue with current medications, continue with no added salt diet. Pt has been encouraged to exercise daily. The pt has been advised to call the office if there are any acute concerns about change in blood pressure read ings at home. Edema - pt has been advised to elevate legs to prevent dependent edema, compression has been recommended to help to naturally decrease peripheral edema. Diuretic use has been discussed and pt has been instructed in appropriate use of such medication as necessary to further attempt to reduce peripheral edema. Pt to use 1/2 dose of lasix daily x 3 days and prn. 08/05/2017 Appointment: Carleen Anaya WPtel: [facility]5 [address] (15 min) Moderate 08/05/2017 Patient Education: Patient Medication Summary Completed 08/05/2017 Appointment: Carleen Anaya WPtel: [facility]5 [facility]66[facility] ([facility] min[facility] Moderate 07/14/2017 Visit Plan: Hypertension - well controlled - continue with current medications, continue with no added salt diet. Pt has been encouraged to exercise daily. The pt has been advised to call the office if there are any acute concerns about change in blood pressure readings at home. Weakness - continue with physical therapy/strengthening exercises. Loose stools improving - no change in current management. Arm pain - improved with voltaren gel. 07/06/2017 Appointment: Carleen Anaya WPtel: [facility]5 [facility]6[address] (15 min) Moderate 07/06/2017 Patient Education: Patient Medication Summary Completed 07/06/2017 Patient Education: Patient Medication Summary Completed 07/03/2017 Care Plan: Clostridium Diff Tox A/B Cancelled 07/03/2017 Visit Plan: Hypertension - well controlled - continue with current medications, continue with no added salt diet. Pt has been encouraged to exercise daily. The pt has been advised to call the office if there are any acute concerns about change in blood pressure readings at home. Presence of Xenogenic heart valve. Stage 2 diastolic dysfunction on last ECHO - Pt has prosthetic valve, hypoxemia and requires continuous oxygen. Weakness/fatigue - monitor symptoms - supportive care, therapy, increase physical activity and increase intake of protein. high dose flu shot today 06/18/2017 Appointment: Carleen Anaya WPtel: 1010 [facility] [place] (15 min) Moderate 06/18/2017 Patient Education: Patient Medication Summary Completed 06/18/2017 Appointment: Nurse Visit 05/12/2017 Care Plan: X-RAY EXAM OF SHOULDER LOINC : 45446-3 Pending 05/12/2017 Visit Plan: Weakness, fatigue, malaise - Discussed with Dr. Anaya - pt sent for IV fluids, will check labs and UA - will treat as indicated - pt is to keep her appointment with her photography coordinator for her ECHO and Carotid US. Pt is to follow up with her oncologist. Right shoulder pain after fall - will send for X-ray - The pt is to use prn antiinflammatories to manage acute pain. The patient is to call the office if the pain is worsening or does not improve. 05/11/2017 Appointment: Wendi Uriostegui WPtel: 1015 [facility] [place] (30 min) Complex 05/11/2017 Patient Education: Patient Medication Summary Completed 05/11/2017 Appointment: Nurse Visit 04/30/2017 Patient Education: Patient Medication Summary Completed 04/30/2017 Visit Plan: Sinusitis - Pt has acute infection - pain in face, maxillary region, Pt informed to use decongestant, RX given to patient, sinus rinses also recommended. Call if symptoms do not show improvement. Urinary Tract Infection-discussed natural and expected course of this diagnosis and to alert me if symptoms do not follow expected course, or if any worse. UA positive for infection today in the office-plan to send for culture and will call patient with results. RX sent to patient's pharmacy. Avoid tub baths, restrictive underwear, etc. Recommend patient start on probiotic while taking the antibiotic to prevent diarrhea. Patient verbalized understanding of plan. 04/27/2017 Appointment: Mimi Espinosa WPtel: 1010 [phone] [place] (15 min) Moderate 04/27/2017 Patient Education: Patient Medication Summary Completed 04/27/2017 Visit Plan: Hypothyroidism - pt with chronic hypothyroidism, continue with current medication, will monitor pt to signs or symptoms of lack of adequate supplementation. Pt is to continue with current dose of medication unless directed otherwise. Check labs at regular intervals wither q 3 months or q 6 months based on previous levels of control. Hypertension - well controlled - continue with current medications, continue with no added salt diet. Pt has been encouraged to exercise daily. The pt has been advised to call the office if there are any acute concerns about change in blood pressure readings at home. 1 -2 second pause in heart beat - recommended evaluation by her Truck Headlight Assembler - Dr. Butler - I attempted a phone call to the office of Dr. Butler, I had to leave a message on the answering machine. If i don't hear back from Dr. Butler's office, we will need to do a Holter monitor on patient. 04/08/2017 Appointment: Carleen Anaya WPtel: [phone] [facility] (15 min) Moderate 04/08/2017 Patient Education: Patient Medication Summary Completed 04/08/2017 Care Plan: Referral Order SNOMED-CT : [id number] Pending 04/08/2017 Visit Plan: UTI - pt with positive urinalysis - culture sent if appropriate. Antibiotic electronically prescribed to pt's pharmacy of choice. Pt to call if symptoms do not improve. 2017 Appointment: Lab Draw 2017 Patient Education: Patient Medication Summary Completed 2017 Visit Plan: Low back pain- The pt is to use prn antiinflammatories to manage acute pain. The patient is to call the office if the pain is worsening or does not improve. Sacroiliitis - back exercises discussed with the patient, pt to continue with anti-inflammatories. Pt is to call if the symptoms do not improve or if they worsen. Joint Injection - Pt was given post - injection instructions. The pt has been advised to use anti-inflammatories post injection today, ice to the injected site, call if redness, warmth, or increased pain occurs at the site of injection. 03/03/2017 Appointment: Wendi Uriostegui WPtel: [phone] [facility] (30 min) Complex 03/03/2017 Patient Education: Patient Medication Summary Completed 03/03/2017 Visit Plan: Hypertension - well controlled - continue with current medications, continue with no added salt diet. Pt has been encouraged to exercise daily. The pt has been advised to call the office if there are any acute concerns about change in blood pressure readings at home. Memory loss - continue with namenda for support of memory. Hypothyroidism - pt with chronic hypothyroidism, continue with current medication, will monitor pt to signs or symptoms of lack of adequate supplementation. Pt is to continue with current dose of medication unless directed otherwise. Check labs at regular intervals wither q 3 months or q 6 months based on previous levels of control. 01/05/2017 Appointment: Carleen Anaya WPtel: 1015 [facility]6[address] (15 min) Moderate 01/05/2017 Patient Education: Patient Medication Summary Completed 01/05/2017 Visit Plan: Neck Pain- pt to start with aspercreme or biofreeze to neck three times daily and start neck exercises daily. Will send RX - The patient is to call the office if the pain is worsening or does not improve. 12/19/2016 Appointment: Wendi Uriostegui WPtel: [facility]3 [facility] (30 min) Complex 12/19/2016 Patient Education: Patient Medication Summary Completed 12/19/2016 Patient Education: .Cervicalgia Neck Pain Completed 12/19/2016 Visit Plan: Hypertension - well controlled - continue with current medications, continue with no added salt diet. Pt has been encouraged to exercise daily. The pt has been advised to call the office if there are any acute concerns about change in blood pressure readings at home. Esophageal Reflux - the patient has been counseled against excessive intake of caffeine, spicy foods, peppermint, and cinnamon - all of which can exacerbate esophageal reflux. The patient is to take medications as prescribed and call the office if the symptoms are not improving. 11/13/2016 Appointment: Carleen Anaya WPtel: [phone] [phone] (15 min) Moderate 11/13/2016 Patient Education: Patient Medication Summary Completed 11/13/2016 Visit Plan: Insomnia -extended release melatonin - you can take up to 10mg of melatonin sleepy time tea - - use warm milk in the tea. Right shoulder - pt to continue with therapy, anti-inflammatory 10/16/2016 Appointment: Carleen Anaya WPtel: [phone] [phone] (15 min) Moderate 10/16/2016 Patient Education: Patient Medication Summary Completed 10/16/2016 Visit Plan: Pneumonia - Pt has been diagnosed with pneumonia by physical exam. A chest xray has been ordered as have antibiotics. The pt is aware of the diagnosis and the need for acute treatment of this illness. c efdinir rx to pharmacy - prednisone 40mg daily x 3 days Right shoulder pain - rx for xray sent with pt. 10/06/2016 Appointment: Carleen Anaya WPtel: [phone] [phone] (15 min) Moderate 10/06/2016 Patient Education: Patient Medication Summary Completed 10/06/2016 Care Plan: X-RAY EXAM OF SHOULDER LOINC : 96272-6 Pending 10/06/2016 Appointment: Carleen Anaya WPtel: [facility]5 [facility] (30 min) Complex 10/01/2016 Referral: [facility] WPtel: [phone] [facility] Patient informed. Completed 07/08/2016 Visit Plan: Hypertension - well controlled - continue with current medications, continue with no added salt diet. Pt has been encouraged to exercise daily. The pt has been advised to call the office if there are any acute concerns about change in blood pressure readings at home. Joint pain - rx for voltaren gel Gait unsteadiness - discussed therapy. 07/02/2016 Appointment: Carleen Anaya WPtel: [phone] [phone] (15 min) Moderate 07/02/2016 Patient Education: Patient Medication Summary Completed 07/02/2016 Care Plan: Referral Order SNOMED-CT : [id number] Pending 07/02/2016 Visit Plan: Hypertension - well controlled - continue with current medications, continue with no added salt diet. Pt has been encouraged to exercise daily. The pt has been advised to call the office if there are any acute concerns about change in blood pressure readings at home. Esophageal Reflux - the patient has been counseled against excessive intake of caffeine, spicy foods, peppermint, and cinnamon - all of which can exacerbate esophageal reflux. The patient is to take medications as prescribed and call the office if the symptoms are not improving. Continue with Carafate - will send pt for outpatient speech eval. stay off of fosamax x 6 more weeks Pt is planning on getting a flu shot at [facility] and she is due for another pneumovax- last pneumovax was in 2008 - so she can have pneumovax now and the prevnar in 2017 05/21/2016 Appointment: Carleen Anaya WPtel: [facility]3 [address] (15 min) Moderate 05/21/2016 Patient Education: Patient Medication Summary Completed 05/21/2016 Referral: [place] [address] Referral Completed 05/12/2016 Visit Plan: Esophageal Reflux - the patient has been counseled against excessive intake of caffeine, spicy foods, peppermint, and cinnamon - all of which can exacerbate esophageal reflux. The patient is to take med ications as prescribed and call the office if the symptoms are not improving. HOLD fosamax x 1 month start on carafate 1 gram four times daily 05/07/2016 Appointment: Carleen Anaya WPtel: [facility]6 [address] (15 min) Moderate 05/07/2016 Patient Education: Patient Medication Summary Completed 05/07/2016 Appointment: Mimi Espinosa WPtel: [facility]0 [address] (30 min) Complex 05/01/2016 Visit Plan: Allergies - chronic - recommended pt to use allergy medication as prescribed. Pt has been counseled as to the appropriate use of the medication. Pt to call if allergy symptoms are not controlled with the medication. If using nasal spray, instructions as follows: Nasal spray- use twice daily, one spray per nostril twice daily, after 30 minutes, rinse out nose with saline spray.. Use opposite hand per nostril to spray in the nasal steroid allergy spray. Kenalog injection today in the office Sore qbfxzh-iutcxcvsn-clgic dexilant-refer to Dr Del Real for evaluation 04/28/2016 Appointment: iMmi Espinosa WPtel: [phone] [phone] (30 min) Complex 04/28/2016 Patient Education: Patient Medication Summary Completed 04/28/2016 Appointment: Nurse Visit 04/10/2016 Patient Education: Patient Medication Summary Completed 04/10/2016 Visit Plan: Neck Pain- pt to start with aspercreme or biofreeze to neck three times daily and start neck exercises daily. Notify clinic if symptoms do not improve, if they worsen, or with any concerns. URI - Pt advised to increase fluids, vitamin C. Discussed natural and expected course of this diagnosis and need to alert me if symptoms do not follow expected course, or if any worse. RX sent to patient's pharmacy. UTI - culture back, medication switched. 04/07/2016 Appointment: Wendi Uriostegui WPtel: [phone] [facility] (30 min) Complex 04/07/2016 Patient Education: Patient Medication Summary Completed 04/07/2016 Patient Education: .Cervicalgia Neck Pain Completed 04/07/2016 Visit Plan: Hypertension - well controlled - continue with current medications, continue with no added salt diet. Pt has been encouraged to exercise daily. The pt has been advised to call the office if there are any acute concerns about change in blood pressure readings at home. Hypothyroidism - pt with chronic hypothyroidism, continue with current medication, will monitor pt to signs or symptoms of lack of adequate supplementation. Pt is to continue with current dose of medication unless directed otherwise. Check labs at regular intervals wither q 3 months or q 6 months based on previous levels of control. F atigue-check labs including UA-culture if positive Urge hxeulyrsyzjd-qflypcees-viesa UA with C&S 04/03/2016 Appointment: Mimi Espinosa WPtel: [phone] [phone] (30 min) Complex 04/03/2016 Patient Education: Patient Medication Summary Completed 04/03/2016 Visit Plan: Hypertension - well controlled - continue with current medications, continue with no added salt diet. Pt has been encouraged to exercise daily. The pt has been advised to call the office if there are any acute concerns about change in blood pressure readings at home. Nzcixjypy-mklllwkg-ngalpday MRI brain Right ankle ucfh-mwecoad-molk right ankle- plan to refer to physical therapy if appropriate 01/31/2016 Appointment: Mimi Espinosa WPtel: [phone] (30 min) Complex 01/31/2016 Patient Education: Patient Medication Summary Completed 01/31/2016 Patient Education: Hypertension Completed 01/31/2016 Care Plan: MRI BRAIN STEM W/O DYE Pending 01/31/2016 Visit Plan: Hypertension - well controlled - continue with current medications, continue with no added salt diet. Pt has been encouraged to exercise daily. The pt has been advised to call the office if there are any acute concerns about change in blood pressure readings at home. Allergies - recommended pt to use allergy medication as prescribed. Pt has been counseled as to the appropriate use of the medication. Pt to call if allergy symptoms are not controlled with the medication. If using nasal spray, instructions as follows: Nasal spray- use twice daily, one spray per nostril twice daily, after 30 minutes, rinse out nose with saline spray.. Use opposite hand per nostril to spray in the nasal steroid allergy spray. Hypothyroidism - pt with chronic hypothyroidism, continue with current medication, will monitor pt to signs or symptoms of lack of adequate supplementation. Pt is to continue with current dose of medication unless directed otherwise. Check labs at regular intervals wither q 3 months or q 6 months based on previous levels of control. Hyperlipidemia - pt has been counseled about appropriate diet, exercise, and need for low fat food choices. I have discussed the need for the patient to take medications as prescribed. If the patient has negative side effects from the medication, they are to CALL the office and not abruptly discontinue the medication without discussion with a practitioner in the office. We will check labs in 3-6 months for follow up on the patient's chronic medical problem and to assure normal liver response to medications. 11/29/2015 Appointment: (30 min) Complex 11/29/2015 Patient Education: Patient Medication Summary Completed 11/29/2015 Visit Plan: Hypertension - well controlled - continue with current medications, continue with no added salt diet. Pt has been encouraged to exercise daily. The pt has been advised to call the office if there are any acute concerns about change in blood pressure readings at home. Urge incontinence -Pt has urge incontinence - the patient has been counseled about potential triggers for increase in sensation of the urgency - the pt has been counseled to avoid caffeinated products, spicy products, and to urinate every 2- 3 hours to prevent the incontinence associated with the urgency. Pt is to continue with current treatment plan and call if symptoms worsen. Memory loss- doing well with namenda-continue 10mg twice daily 10/01/2015 Appointment: (15 min) Moderate 10/01/2015 Patient Education: Patient Medication Summary Completed 10/01/2015 Patient Education: Hypertension Completed 10/01/2015 Visit Plan: Hypertension - well controlled - continue with current medications, continue with no added salt diet. Pt has been encouraged to exercise daily. The pt has been advised to call the office if there are any acute concerns about change in blood pressure readings at home. Hypothyroidism - pt with chronic hypothyroidism, continue with current medication, will monitor pt to signs or symptoms of lack of adequate supplementation. Pt is to continue with current dose of medication unless directed otherwise. Check labs at regular intervals wither q 3 months or q 6 months based on previous levels of control. U rge incontinence-switch to [facility]icare Dementia-patient was on namenda per Dr Lobo-wants to try it again-samples provided 08/30/2015 Appointment: (15 min) Moderate 08/30/2015 Patient Education: Patient Medication Summary Completed 08/30/2015 Patient Education: Hypertension Completed 08/30/2015 Referral: External, Ordering Provider Referral Completed 08/07/2015 Visit Plan: Hypertension - uncontrolled - the patient's medications have been modified as documented in the visit note. The patient has been counseled to cut back on salt in diet for a no added salt diet, low fat diet, start an exercise program with low weight bearing exercises and higher aerobic activity for heart health. The patient is to check blood pressure readings as an outpatient and either fax, call, or email the readings to the office next week for practitioner to review. The pt is to call for acute concerns. Hypothyroidism - pt with chronic hypothyroidism, continue with current medication, will monitor pt to signs or symptoms of lack of adequate supplementation. Pt is to continue with current dose of medication unless directed otherwise. Check labs at regular intervals wither q 3 months or q 6 months based on previous levels of control. Hyperlipidemia - pt has been counseled about appropriate diet, exercise, and need for low fat food choices. I have discussed the need for the patient to take medications as prescribed. If the patient has negative side effects from the medication, they are to CALL the office and not abruptly discontinue the medication without discussion with a practitioner in the office. We will check labs in 3-6 months for follow up on the patient's chronic medical problem and to assure normal liver response to medications. 07/31/2015 Appointment: Carleen Anaya WPtel: [phone] [facility] (15 min) Moderate 07/31/2015 Patient Education: Patient Medication Summary Completed 07/31/2015 Patient Education: Hypertension Completed 07/31/2015 Care Plan: Referral Order SNOMED-CT : [id number] Ordered 07/31/2015 Visit Plan: Hypertension - uncontrolled - the patient's medications have been modified as documented in the visit note. The patient has been counseled to cut back on salt in diet for a no added salt diet, low fat diet, start an exercise program with low weight bearing exercises and higher aerobic activity for heart health. The patient is to check blood pressure readings as an outpatient and either fax, call, or email the readings to the office next week for practitioner to review. The pt is to call for acute concerns. Chronic Anticoagulant use - Pt has been counseled about the anticoagulant, need for serial monitoring, and need for the pt to alert the physician as to any new bruising, or acute bleeding. Therapeutic goal for INR is between 2.0 and 3.5. Dizziness - recommended pt to start on Nortryptyline 07/03/2015 Appointment: [id number] (15 min) Moderate 07/03/2015 Patient Education: Patient Medication Summary Completed 07/03/2015 Patient Education: Hypertension Completed 07/03/2015 Visit Plan: hypertension- well controlled today, no changes to medications macular degeneration- continue f/u appt's with eye doctor. stop aspirin one week before next eye injection peripheral vascular disease with neuropathy- color changes to shins consistent with venous stasis, feet are cold to touch, patient having pain at night in feet. Begin taking vit b12 supplements. Keep feet elevated at night to reduce swelling. 04/10/2015 Patient Education: Patient Medication Summary Completed 04/10/2015 Patient Education: Hypertension Completed 04/10/2015 Visit Plan: Hypertension - well controlled - continue with current medications, continue with no added salt diet. Pt has been encouraged to exercise daily. The pt has been advised to call the office if there are any acute concerns about change in blood pressure readings at home. Constipation - uncontrolled - I have discussed with the patient the need for adequate fiber and water intake to facilitate soft, easily passed stools. The pt noted understanding of our conversation. I have given the patient a recipe for "power pudding" - equal parts, bran flakes, prune juice, and apple sauce. The pt is to call if symptoms not improved on this regimen. Hypothyroidism - pt with chronic hypothyroidism, continue with current medication, will monitor pt to signs or symptoms of lack of adequate supplementation. Pt is to continue with current dose of medication unless directed otherwise. Check labs at regular intervals wither q 3 months or q 6 months based on previous levels of control. Urge incontinence -Pt has urge incontinence - the patient has been counseled about potential triggers for increase in sensation of the urgency - the pt has been counseled to avoid caffeinated products, spicy products, and to urinate every 2- 3 hours to prevent the incontinence associated with the urgency. Pt is to continue with current treatment plan and call if symptoms worsen. 01/11/2015 Patient Education: Patient Medication Summary Completed 01/11/2015 Patient Education: Hypertension Completed 01/11/2015 Referral: [facility] WPtel: [address] [place], [place] [id number] [place] Referral Appointment Requested Referral: External, Ordering Provider Referral Appointment Requested Referral: External, Ordering Provider Referral Relationship Referral: [id number] [place] Referral Appointment Requested Instructions Comment Flonase 1 spray each nare daily . Hypertension - well controlled - continue with current medications, continue with no added salt diet. Pt has been encouraged to exercise daily. The pt has been advised to call the office if there are any acute concerns about change in blood pressure readings at home. Allergies -recommended pt to use allergy medication as prescribed. Pt has been counseled as to the appropriate use of the medication. Pt to call if allergy symptoms are not controlled with the medication. If using nasal spray, instructions as follows: Nasal spray- use twice daily, one spray per nostril twice daily, after 30 minutes, rinse out nose with saline spray.. Use opposite hand per nostril to spray in the nasal steroid allergy spray. Hypothyroidism - pt with chronic hypothyroidism, continue with current medication, will monitor pt to signs or symptoms of lack of adequate supplementation. Pt is to continue with current dose of medication unless directed otherwise. Check labs at regular intervals wither q 3 months or q 6 months based on previous levels of control. Hyperlipidemia - pt has been counseled about appropriate diet, exercise, and need for low fat food choices. I have discussed the need for the patient to take medications as prescribed. If the patient has negative side effects from the medication, they are to CALL the office and not abruptly discontinue the medication without discussion with a practitioner in the office. We will check labs in 3-6 months for follow up on the patient's chronic medical problem and to assure normal liver response to medications. stay off of fosamax x 6 more weeks last pneumovax was in 2008 - so she can have pneumovax now and the prevnar in 2017 . Hypertension - well controlled - continue with current medications, continue with no added salt diet. Pt has been encouraged to exercise daily. The pt has been advised to call the office if there are any acute concerns about change in blood pressure readings at home. Esophageal Reflux - the patient has been counseled against excessive intake of caffeine, spicy foods, peppermint, and cinnamon - all of which can exacerbate esophageal reflux. The patient is to take medications as prescribed and call the office if the symptoms are not improving. Continue with Carafate - will send pt for outpatient speech eval. stay off of fosamax x 6 more weeks Pt is planning on getting a flu shot at [facility] and she is due for another pneumovax- last pneumovax was in 2008 - so she can have pneumovax now and the prevnar in 2017 Power Pudding: equal parts of prune juice, bran flakes, apple sauce - mix together, and take 1-2 tablespoons up to three times daily. The mixture will stay good in the fridge for 10 days. . Hypertension - well controlled - continue with current medications, continue with no added salt diet. Pt has been encouraged to exercise daily. The pt has been advised to call the office if there are any acute concerns about change in blood pressure readings at home. Constipation - uncontrolled - I have discussed with the patient the need for adequate fiber and water intake to facilitate soft, easily passed stools. The pt noted understanding of our conversation. I have given the patient a recipe for "power pudding" - equal parts, bran flakes, prune juice, and apple sauce. The pt is to call if symptoms not improved on this regimen. Hypothyroidism - pt with chronic hypothyroidism, continue with current medication, will monitor pt to signs or symptoms of lack of adequate supplementation. Pt is to continue with current dose of medication unless directed otherwise. Check labs at regular intervals wither q 3 months or q 6 months based on previous levels of control. Urge incontinence -Pt has urge incontinence - the patient has been counseled about potential triggers for increase in sensation of the urgency - the pt has been counseled to avoid caffeinated products, spicy products, and to urinate every 2-3 hours to prevent the incontinence associated with the urgency. Pt is to continue with current treatment plan and call if symptoms worsen. MYRBETRIQ-SAMPLES 1 DAILY . Hypertension - well controlled - continue with current medications, continue with no added salt diet. Pt has been encouraged to exercise daily. The pt has been advised to call the office if there are any acute concerns about change in blood pressure readings at home. Urge incontinence -Pt has urge incontinence - the patient has been counseled about potential triggers for increase in sensation of the urgency - the pt has been counseled to avoid caffeinated products, spicy products, and to urinate every 2-3 hours to prevent the incontinence associated with the urgency. Pt is to continue with current treatment plan and call if symptoms worsen. Memory loss-doing well with namenda-continue 10mg twice daily voltaren gel - apply two grams onto shoulder three times daily . Hypertension - well controlled - continue with current medications, continue with no added salt diet. Pt has been encouraged to exercise daily. The pt has been advised to call the office if there are any acute concerns about change in blood pressure readings at home. Joint pain - rx for voltaren gel Gait unsteadiness - discussed therapy. . Hypothyroidism - pt with chronic hypothyroidism, continue with current medication, will monitor pt to signs or symptoms of lack of adequate supplementation. Pt is to continue with current dose of medication unless directed otherwise. Check labs at regular intervals wither q 3 months or q 6 months based on previous levels of control. Hypertension - well controlled - continue with current medications, continue with no added salt diet. Pt has been encouraged to exercise daily. The pt has been advised to call the office if there are any acute concerns about change in blood pressure readings at home. 1-2 second pause in heart beat - recommended evaluation by her [employer] - Dr. Butler - I attempted a phone call to the office of Dr. Butler, I had to leave a message on the answering machine. If i don't hear back from Dr. Butler's office, we will need to do a Holter monitor on patient. . Weakness, fatigue - UA negative - pt is to consider PT - will have pt restart the Vitamin D and notify clinic if no improvement, or with any changes, questions, or conerns. Hypertension - well controlled - continue with current medications, continue with no added salt diet. Pt has been encouraged to exercise daily. The pt has been advised to call the office if there are any acute concerns about change in blood pressure readings at home. Allergies - chronic - recommended pt to use allergy medication as prescribed. Pt has been counseled as to the appropriate use of the medication. Pt to call if allergy symptoms are not controlled with the medication. If using nasal spray, instructions as follows: Nasal spray- use twice daily, one spray per nostril twice daily, after 30 minutes, rinse out nose with saline spray.. Use opposite hand per nostril to spray in the nasal steroid allergy spray. . Cellulitis - start oral antibiotics as directed, return to clinic as directed, call for acute change in symptoms, worsening redness, warmth, discharge. . Neck Pain- pt to start with aspercreme or biofreeze to neck three times daily and start neck exercises daily. Notify clinic if symptoms do not improve, if they worsen, or with any concerns. URI - Pt advised to increase fluids, vitamin C. Discussed natural and expected course of this diagnosis and need to alert me if symptoms do not follow expected course, or if any worse. RX sent to patient's pharmacy. UTI - culture back, medication switched. . UTI - pt with positive urinalysis - culture sent if appropriate. Antibiotic electronically prescribed to pt's pharmacy of choice. Pt to call if symptoms do not improve. finish flagyl as directed avoid nuts, seeds, popcorn, etc TSH was 0.04 and Free T4 was 1.62 . abdominal pain - improved - pt is to finish abx as directed - pt is to notify clinic if symptoms do not continue to improve, if they return, or with any changes, questions, or concerns. . Low back pain- The pt is to use prn antiinflammatories to manage acute pain. The patient is to call the office if the pain is worsening or does not improve. Sacroiliitis - back exercises discussed with the patient, pt to continue with anti-inflammatories. Pt is to call if the symptoms do not improve or if they worsen. Joint Injection - Pt was given post - injection instructions. The pt has been advised to use anti-inflammatories post injection today, ice to the injected site, call if redness, warmth, or increased pain occurs at the site of injection. . Hypertension - uncontrolled - the patient's medications have been modified as documented in the visit note. The patient has been counseled to cut back on salt in diet for a no added salt diet, low fat diet, start an exercise program with low weight bearing exercises and higher aerobic activity for heart health. The patient is to check blood pressure readings as an outpatient and either fax, call, or email the readings to the office next week for practitioner to review. The pt is to call for acute concerns. Hypothyroidism - pt with chronic hypothyroidism, continue with current medication, will monitor pt to signs or symptoms of lack of adequate supplementation. Pt is to continue with current dose of medication unless directed otherwise. Check labs at regular intervals wither q 3 months or q 6 months based on previous levels of control. Hyperlipidemia - pt has been counseled about appropriate diet, exercise, and need for low fat food choices. I have discussed the need for the patient to take medications as prescribed. If the patient has negative side effects from the medication, they are to CALL the office and not abruptly discontinue the medication without discussion with a practitioner in the office. We will check labs in 3-6 months for follow up on the patient's chronic medical problem and to assure normal liver response to medications. DEXILANT 60MG DAILY . Allergies - chronic - recommended pt to use allergy medication as prescribed. Pt has been counseled as to the appropriate use of the medication. Pt to call if allergy symptoms are not controlled with the medication. If using nasal spray, instructions as follows: Nasal spray- use twice daily, one spray per nostril twice daily, after 30 minutes, rinse out nose with saline spray.. Use opposite hand per nostril to spray in the nasal steroid allergy spray. Kenalog injection today in the office Sore lmjpye-nfnssshju-lijvi dexilant-refer to Dr Del Real for evaluation Discuss with Dr. Bowman to switch warfarin to brand name Coumadin. Stop baby aspirin 1 week before next eye injection. Talk with eye doctor as to whether he wants you to stop the coumadin for the next time. Begin taking vitamin b12 supplements for possible causes of foot pain. Take 2000mcg daily. The liquid absorbs better. . hypertension- well controlled today, no changes to medications macular degeneration- continue f/u appt's with eye doctor. stop aspirin one week before next eye injection peripheral vascular disease with neuropathy- color changes to shins consistent with venous stasis, feet are cold to touch, patient having pain at night in feet. Begin taking vit b12 supplements. Keep feet elevated at night to reduce swelling. extended release melatonin - you can take up to 10mg of melatonin sleepy time tea - - use warm milk in the tea. . Insomnia -extended release melatonin - you can take up to 10mg of melatonin sleepy time tea - - use warm milk in the tea. Right shoulder - pt to continue with therapy, anti-inflammatory . Low back pain- The pt is to use prn antiinflammatories to manage acute pain. The patient is to call the office if the pain is worsening or does not improve. Sacroiliitis - back exercises discussed with the patient, pt to continue with anti-inflammatories. Pt is to call if the symptoms do not improve or if they worsen. Joint Injection - Pt was given post - injection instructions. The pt has been advised to use anti-inflammatories post injection today, ice to the injected site, call if redness, warmth, or increased pain occurs at the site of injection. . Hypertension - well controlled - continue with current medications, continue with no added salt diet. Pt has been encouraged to exercise daily. The pt has been advised to call the office if there are any acute concerns about change in blood pressure readings at home. Hypothyroidism - pt with chronic hypothyroidism, continue with current medication, will monitor pt to signs or symptoms of lack of adequate supplementation. Pt is to continue with current dose of medication unless directed otherwise. Check labs at regular intervals q 3 months or q 6 months based on previous levels of control. Fatigue and Insomnia - Discussed with patient - I have advised that she needs to move back in with her daughter as she was feeling better and sleeping better when she was there, however she has indicated that she will not do so at this time. . Hypertension - well controlled - continue with current medications, continue with no added salt diet. Pt has been encouraged to exercise daily. The pt has been advised to call the office if there are any acute concerns about change in blood pressure readings at home. Weakness - continue with physical therapy/strengthening exercises. Loose stools improving - no change in current management. Arm pain - improved with voltaren gel. Salon Pas with lidocaine patch - over the counter if flector patch is too expensive . Neck Pain- pt to start with aspercreme or biofreeze to neck three times daily and start neck exercises daily. Will send RX - The patient is to call the office if the pain is worsening or does not improve. UA keflex . Sinusitis - Pt has acute infection - pain in face, maxillary region, Pt informed to use decongestant, RX given to patient, sinus rinses also recommended. Call if symptoms do not show improvement. Urinary Tract Infection-discussed natural and expected course of this diagnosis and to alert me if symptoms do not follow expected course, or if any worse. UA positive for infection today in the office-plan to send for culture and will call patient with results. RX sent to patient's pharmacy. Avoid tub baths, restrictive underwear, etc. Recommend patient start on probiotic while taking the antibiotic to prevent diarrhea. Patient verbalized understanding of plan. . Pneumonia - Pt has been diagnosed with pneumonia by physical exam. A chest xray has been ordered as have antibiotics. The pt is aware of the diagnosis and the need for acute treatment of this illness. cefdinir rx to pharmacy - prednisone 40mg daily x 3 days Right shoulder pain - rx for xray sent with pt. . Hypothyroidism - pt with chronic hypothyroidism, slightly over supplemented decrease to 200mcg tue/thur and 175mcg m//fri/sat/sun, will monitor pt to signs or symptoms of lack of adequate supplementation. Pt is to continue with current dose of medication unless directed otherwise. Check labs at regular intervals q 3 months or q 6 months based on previous levels of control. Hypertension - well controlled - continue with current medications, continue with no added salt diet. Pt has been encouraged to exercise daily. The pt has been advised to call the office if there are any acute concerns about change in blood pressure readings at home. . Hypertension - well controlled - continue with current medications, continue with no added salt diet. Pt has been encouraged to exercise daily. The pt has been advised to call the office if there are any acute concerns about change in blood pressure readings at home. Hypothyroidism - pt with chronic hypothyroidism, continue with current medication, will monitor pt to signs or symptoms of lack of adequate supplementation. Pt is to continue with current dose of medication unless directed otherwise. Check labs at regular intervals wither q 3 months or q 6 months based on previous levels of control. Hair loss - likely due to thyroid - check labs today. repeat INR in 2 weeks repeat a bmp in 2 weeks repeat a cbc in 2 weeks . Hypertension - well controlled - continue with current medications, continue with no added salt diet. Pt has been encouraged to exercise daily. The pt has been advised to call the office if there are any acute concerns about change in blood pressure readings at home. Presence of Xenogenic heart valve. Stage 2 diastolic dysfunction on last ECHO - Pt has prosthetic valve, hypoxemia and requires continuous oxygen. Weakness/fatigue - monitor symptoms - supportive care, therapy, increase physical activity and increase intake of protein. high dose flu shot today . Hypertension - well controlled - continue with current medications, continue with no added salt diet. Pt has been encouraged to exercise daily. The pt has been advised to call the office if there are any acute concerns about change in blood pressure readings at home. CHF - congestive heart failure - Pt has Chronic congestive heart failure - and is currently fairly well maintained on the current medications. Today there is no change in the treatment course. If symptoms worsen, increase edema or more that 2-3 pound weight gain over a week without improvement in the symptoms with a decrease in the sodium of the diet, then the pt is to have the office alerted. Hypoxemia, CHF - Her SPO2 on room air at rest was 94%, her SPO2 walking on room air was 88%, her SPO2 with 2 L O2 per NC was 98%. Pt is to continue to use both night time and portable O2. . Possible vaginal bleeding -patient has a history of total hysterectomy -no obvious bleeding today upon inspection -will culture urine - monitor symptoms and call if bleeding persists or worsens. CHECK LABS CHECK URINE . Hypertension - well controlled - continue with current medications, continue with no added salt diet. Pt has been encouraged to exercise daily. The pt has been advised to call the office if there are any acute concerns about change in blood pressure readings at home. Hypothyroidism - pt with chronic hypothyroidism, continue with current medication, will monitor pt to signs or symptoms of lack of adequate supplementation. Pt is to continue with current dose of medication unless directed otherwise. Check labs at regular intervals wither q 3 months or q 6 months based on previous levels of control. Fatigue-check labs including UA-culture if positive Urge hcubnkcvqtuf-vjnanyxot-ryxxd UA with C&S add z-pack, continue cefdinir - take a probiotic twice a day while on the antibiotic start steroid today go get chest x-ray eber ventura for cough let me know if it is not getting better or with any concerns come back in 2 weeks so I can listen to your lungs again. . Pneumonia - Pt has been diagnosed with pneumonia by physical exam. A chest xray has been ordered as have antibiotics. The pt is aware of the diagnosis and the need for acute treatment of this illness. . Hypothyroidism - pt with chronic hypothyroidism, continue with current medication, will monitor pt to signs or symptoms of lack of adequate supplementation. Pt is to continue with current dose of medication unless directed otherwise. Check labs at regular intervals wither q 3 months or q 6 months based on previous levels of control. Hypertension - well controlled - continue with current medications, continue with no added salt diet. Pt has been encouraged to exercise daily. The pt has been advised to call the office if there are any acute concerns about change in blood pressure readings at home. Urge incontinence - sample of myrbetriq 50mg daily. CHECK LABS AND UA . Edema - pt has been advised to elevate legs to prevent dependent edema, compression has been recommended to help to naturally decrease peripheral edema. Diuretic use has been discussed and pt has been instructed in appropriate use of such medication as necessary to further attempt to reduce peripheral edema. Weakness-fatigue- check labs Dysuria- check UA RYF-ziqwaqfyez-ef changes in medications . Hypertension - well controlled - continue with current medications, continue with no added salt diet. Pt has been encouraged to exercise daily. The pt has been advised to call the office if there are any acute concerns about change in blood pressure readings at home. Wfehvcxpo-bwdbuspu-skmkobfj MRI brain Right ankle ijcu-qlfnypp-qpxr right ankle-plan to refer to physical therapy if appropriate . Hypothyroidism - pt with chronic hypothyroidism, continue with current medication, will monitor pt to signs or symptoms of lack of adequate supplementation. Pt is to continue with current dose of medication unless directed otherwise. Check labs at regular intervals wither q 3 months or q 6 months based on previous levels of control. Hypertension - well controlled - continue with current medications, continue with no added salt diet. Pt has been encouraged to exercise daily. The pt has been advised to call the office if there are any acute concerns about change in blood pressure readings at home. Urge Incontinence - Monitor symptoms - continue with myrbetric . UTI - pt with positive urinalysis - culture sent if appropriate. Antibiotic electronically prescribed to pt's pharmacy of choice. Pt to call if symptoms do not improve. . Hypothyroidism - pt with chronic hypothyroidism, continue with current medication, will monitor pt to signs or symptoms of lack of adequate supplementation. Pt is to continue with current dose of medication unless directed otherwise. Check labs at regular intervals wither q 3 months or q 6 months based on previous levels of control. check labs today Hypertension - well controlled - continue with current medications, continue with no added salt diet. Pt has been encouraged to exercise daily. The pt has been advised to call the office if there are any acute concerns about change in blood pressure readings at home. Edema - pt has been advised to elevate legs to prevent dependent edema, compression has been recommended to help to naturally decrease peripheral edema. Diuretic use has been discussed and pt has been instructed in appropriate use of such medication as necessary to further attempt to reduce peripheral edema. Pt to use 1/2 dose of lasix daily x 3 days and prn. . Sciatica- pt to continue with aleve twice daily and cyclobenzaprine x 1 week. Pt is to call if the symptoms do not improve or if they worsen. referral to [facility] physical therapy. . Hypertension - well controlled - continue with current medications, continue with no added salt diet. Pt has been encouraged to exercise daily. The pt has been advised to call the office if there are any acute concerns about change in blood pressure readings at home. Memory loss - continue with namenda for support of memory. Hypothyroidism - pt with chronic hypothyroidism, continue with current medication, will monitor pt to signs or symptoms of lack of adequate supplementation. Pt is to continue with current dose of medication unless directed otherwise. Check labs at regular intervals wither q 3 months or q 6 months based on previous levels of control. . Low abdominal pain, possible Diverticulitis - rx for antibiotic sent to pt's pharmacy - pt advised to avoid seeds, nuts, popcorn, or any other food which has been proven to upset the pt's stomach. . Hypertension - well controlled - continue with current medications, continue with no added salt diet. Pt has been encouraged to exercise daily. The pt has been advised to call the office if there are any acute concerns about change in blood pressure readings at home. Esophageal Reflux - the patient has been counseled against excessive intake of caffeine, spicy foods, peppermint, and cinnamon - all of which can exacerbate esophageal reflux. The patient is to take medications as prescribed and call the office if the symptoms are not improving. . Sciatica- pt to start on aleve twice daily and cyclobenzaprine x 1 week. Pt is to call if the symptoms do not improve or if they worsen. . Sciatica- pt to start on aleve twice daily and cyclobenzaprine x 1 week. Pt is to call if the symptoms do not improve or if they worsen. [id number] - kenalog Stop Oxybutynin chloride ER. Start Vesicare once daily. Start Namenda 10 mg 1/2 tab x7 days, then 1/2 tab twice a day thereafter. . Hypertension - well controlled - continue with current medications, continue with no added salt diet. Pt has been encouraged to exercise daily. The pt has been advised to call the office if there are any acute concerns about change in blood pressure readings at home. Hypothyroidism - pt with chronic hypothyroidism, continue with current medication, will monitor pt to signs or symptoms of lack of adequate supplementation. Pt is to continue with current dose of medication unless directed otherwise. Check labs at regular intervals wither q 3 months or q 6 months based on previous levels of control. Urge incontinence-switch to vesicare Dementia-patient was on namenda per Dr Lobo-wants to try it again-samples provided . Medicare Exam - today we discussed the patients past history, immunizations, preventative exams/evaluations - colonoscopy, fecal occult blood testing, routine labs for renal function, glucose, cholesterol, osteoporosis evaluations, cardiovascular testing and cancer screenings. We have also discussed mental health and the signs/symptoms of depression. The patient was advised of home safety evaluations and the need to make sure that as the aging process continues, we need to be aware of different ways to make the home a safer place to reside. The patient has also been counseled that exercise is necessary - and of utmost importance as we age to help decrease fall risk and to maintain independence in the home. Today we discussed the need for the patient to create paperwork for Advanced directives as well as for the patient to provide this office with a copy of her [employer] paperwork for health care surrogate. . Hypertension - uncontrolled - the patient's medications have been modified as documented in the visit note. The patient has been counseled to cut back on salt in diet for a no added salt diet, low fat diet, start an exercise program with low weight bearing exercises and higher aerobic activity for heart health. The patient is to check blood pressure readings as an outpatient and either fax, call, or email the readings to the office next week for practitioner to review. The pt is to call for acute concerns. Chronic Anticoagulant use - Pt has been counseled about the anticoagulant, need for serial monitoring, and need for the pt to alert the physician as to any new bruising, or acute bleeding. Therapeutic goal for INR is between 2.0 and 3.5. Dizziness - recommended pt to start on Nortryptyline . Weakness, fatigue, malaise - Discussed with Dr. Anaya - pt sent for IV fluids, will check labs and UA - will treat as indicated - pt is to keep her appointment with her photography coordinator for her ECHO and Carotid US. Pt is to follow up with her oncologist. Right shoulder pain after fall - will send for X-ray - The pt is to use prn antiinflammatories to manage acute pain. The patient is to call the office if the pain is worsening or does not improve. . Hypertension - well controlled - continue with current medications, continue with no added salt diet. Pt has been encouraged to exercise daily. The pt has been advised to call the office if there are any acute concerns about change in blood pressure readings at home. Hypothyroidism - excessively controlled - elevated free t4 and low tsh - therefore she has been directed to decrease to 175mcg daily of synthroid. - her dtr has been instructed to monitor pt to signs or symptoms of lack of adequate supplementation. Pt is to continue with current dose of medication unless directed otherwise. Check labs at regular intervals q 3 months or q 6 months based on previous levels of control. HOLD fosamax x 1 month start on carafate 1 gram four times daily . Esophageal Reflux - the patient has been counseled against excessive intake of caffeine, spicy foods, peppermint, and cinnamon - all of which can exacerbate esophageal reflux. The patient is to take medications as prescribed and call the office if the symptoms are not improving. HOLD fosamax x 1 month start on carafate 1 gram four times daily
--- OUTSIDE RECORDS SUMMARY | 2019-01-01 10:38 | XMS REPORT | CCD ---
Author Author [facility] Organization [facility] Address [address] [place] [address] Phone Care Team Providers Care Territory Manager Name Role Phone PP Unavailable CCM Unavailable Summary Purpose Interface Exchange Insurance Providers Payer name Policy type / Coverage type Covered green party ID Effective Begin Date Effective End Date WPS Medicare Part B Medicare Part B [id number] Unknown Unknown [facility] Medicare Part B [id number] Unknown Unknown Family history Father Diagnosis Age At Onset Cancer Unknown Arthritis Unknown Mother Diagnosis Age At Onset Breast cancer Unknown Arthritis Unknown Social History Social History Element Codes Description Effective Dates Alcohol history Unknown occasionally drinks alcohol 06/08/2018 Frequency of drinks SNOMED CT: 017037277 Drinks rarely 06/08/2018 Marital status Unknown 01/11/2015 Number of children Unknown 3 01/11/2015 Employment Unknown Retired 01/11/[address]: 8990920 Quit over 10 years ago 1950 01/11/[address]: 882237784 Never drinks alcohol 01/11/2015 Allergies, Adverse Reactions, Alerts Substance Reaction Codes Entered Date Inactivated Date Status * OTHER REACTION - SEE ANSWER BOX vancogein red Unknown 01/11/2015 No Inactive Date Active CODEINE RxNorm: 2670 01/11/2015 No Inactive Date Active demerol RxNorm: 733895 08/30/2015 No Inactive Date Active hydrocodone Unknown [...] ICD-9: 782.3 ICD-10: R60.0 Active 08/05/2017 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 ICD-9: V58.61 ICD-10: [...] edema ICD-9: 782.3 ICD-10: R60.0 08/05/2017 Active residential (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 of anticoagulants ICD-9: V58.61 ICD-10: [...] Fill Instructions Synthroid 175 mcg tablet RxNorm: 937296 1 Tablet(s) PO daily do not take on Thursday12/29/2018 05/27/2019 Active Flagyl 500 mg tablet RxNorm: 008595 1 Tablet(s) PO TID 12/24/2018 12/30/2018 Active Keflex 500 mg capsule RxNorm: 431595 1 Capsule(s) PO TID 12/21/2018 12/30/2018 Active Pyridium 200 mg tablet RxNorm: 6444443 1 Tablet(s) PO TID as needed for pain 12/21/2018 12/22/2018 Inactive Synthroid 175 mcg tablet RxNorm: 621536 1 Tablet(s) PO 5 times weekly 09/30/2018 09/29/2018 Inactive alternate with 175mcg order Synthroid 175 mcg tablet RxNorm: 432636 1 Tablet(s) PO daily 09/30/2018 12/28/2018 Inactive this is an update on the dose - she is to take this daily - hold off on the 200mcg pills for now losartan 25 mg tablet RxNorm: 229626 TAKE 1 TABLET BY MOUTH ONCE DAILY 08/30/2018 No Stop Date Active Myrbetriq 50 mg tablet,extended release RxNorm: 3564069 1 Tablet(s) PO daily 08/24/2018 12/21/2018 Inactive Synthroid 175 mcg tablet RxNorm: 929726 1 Tablet(s) PO 4 times a week Thu sun 07/20/2018 09/29/2018 Inactive alternate with 175mcg order Synthroid 200 mcg tablet RxNorm: 386332 Tablet(s) TAKE ONE TABLET BY MOUTH ON THURSDAY, Thursday07/20/2018 09/29/2018 Inactive pantoprazole 40 mg tablet,delayed release RxNorm: 027616 TAKE ONE TABLET BY MOUTH TWICE DAILY 07/19/2018 No Stop Date Active furosemide 40 mg tablet RxNorm: 794267 1 Tablet(s) PO 2 times weekly with song butler 07/13/2018 No Stop Date Active Synthroid 200 mcg tablet RxNorm: 141840 TAKE ONE TABLET BY MOUTH ON THURSDAY, THURSDAY, AND Thursday07/13/2018 07/19/2018 Inactive Vitamin D3 400 unit capsule RxNorm: 509357 1 Capsule(s) PO daily 06/17/2018 No Stop Date Active Aspirin Low Dose 81 mg tablet,delayed release RxNorm: 712654 1 Tablet(s) PO BIW on Thursday and Thursday06/17/2018 No Stop Date Active biotin 1,000 mcg chewable tablet RxNorm: 2822238 1 Tablet(s) PO daily 06/17/2018 No Stop Date Active Vitamin B-12 500 mcg tablet RxNorm: 676673 1 Tablet(s) PO daily 06/17/2018 No Stop Date Active Colace 100 mg capsule RxNorm: 6244502 1 Capsule(s) PO QHS 06/08/2018 No Stop Date Active Coumadin 3 mg tablet RxNorm: 571926 1 Tablet(s) PO daily x5 days and 2 mg x2 days -Managed by Dr. Bowman 06/08/2018 No Stop Date Active Keflex 500 mg capsule RxNorm: 628030 1 Capsule(s) PO TID 05/25/2018 05/31/2018 Inactive metoprolol succinate ER 100 mg tablet,extended release 24 hr RxNorm: 108277 Tablet(s) TAKE ONE TABLET BY MOUTH ONCE DAILY 05/19/2018 No Stop Date Active Coumadin 3 mg tablet RxNorm: 375016 1 Tablet(s) PO daily -Managed by Dr. Bowman 05/04/2018 06/07/2018 Inactive Synthroid 175 mcg tablet RxNorm: 508529 TAKE 1 TABLET BY MOUTH ONCE DAILY 04/06/2018 06/07/2018 Inactive cyclobenzaprine 5 mg tablet RxNorm: 477462 1/2 Tablet(s) PO TID 04/06/2018 04/15/2018 Inactive Synthroid 200 mcg tablet RxNorm: 471789 1 Tablet(s) PO TIW On license of [facility] 04/05/2018 07/12/2018 Inactive brand name only- Alternate with 175mcg dose schedule Synthroid 175 mcg tablet RxNorm: 390466 1 Tablet(s) PO 4 times a week Thu04/05/2018 07/19/2018 Inactive alternate with 175mcg order cyclobenzaprine 5 mg tablet RxNorm: 888844 1/2 Tablet(s) PO TID 03/23/2018 04/01/2018 Inactive tramadol 50 mg tablet RxNorm: 297920 1 Tablet(s) PO TID as needed 03/17/2018 No Stop Date Active Kenalog 40 mg/mL suspension for injection RxNorm: 3425332 2 Milliliter(s) Inj 03/12/2018 03/12/2018 Inactive prednisone 20 mg tablet RxNorm: 571657 2 Tablet(s) PO daily 03/11/2018 03/10/2018 Inactive prednisone 20 mg tablet RxNorm: 303335 2 Tablet(s) PO daily 03/11/2018 03/15/2018 Inactive losartan 25 mg tablet RxNorm: 297371 TAKE ONE TABLET BY MOUTH ONCE DAILY 02/16/2018 08/29/2018 Inactive doxycycline hyclate 100 mg tablet RxNorm: 8478833 1 Tablet(s) PO BID 02/08/2018 02/14/2018 Inactive ceftriaxone 500 mg solution for injection RxNorm: 3838074 Inj 02/08/2018 02/08/2018 Inactive dapsone 25 mg tablet RxNorm: 162523 2 Tablet(s) PO daily 02/08/2018 02/12/2018 Inactive metoprolol succinate ER 100 mg tablet,extended release 24 hr RxNorm: 741592 TAKE ONE TABLET BY MOUTH ONCE DAILY 01/05/2018 05/18/2018 Inactive Synthroid 175 mcg tablet RxNorm: 798181 1 Tablet(s) PO daily 01/01/2018 03/31/2018 Inactive Synthroid 175 mcg tablet RxNorm: 108399 1 Tablet(s) PO daily 01/01/2018 12/31/2017 Inactive Myrbetriq 50 mg tablet,extended release RxNorm: 9752627 1 Tablet(s) PO daily 12/03/2017 01/01/2018 Inactive Zithromax Z-Oliver 250 mg tablet RxNorm: 349063 1 Tablet(s) PO UD 10/12/2017 10/16/2017 Inactive Tessalon Perles 100 mg capsule RxNorm: 021974 2 Capsule(s) PO TID as needed 10/12/2017 10/16/2017 Inactive prednisone 20 mg tablet RxNorm: 736525 2 Tablet(s) PO daily 10/12/2017 10/16/2017 Inactive cefdinir 300 mg capsule RxNorm: 853285 1 Capsule(s) PO BID 10/08/2017 10/07/2017 Inactive Synthroid 150 mcg tablet RxNorm: 198141 1 Tablet(s) PO daily in morning, except 1/2 Tablet PO Wed, Sat, take 30 minutes before meal 10/08/2017 04/04/2018 Inactive brand name only cefdinir 300 mg capsule RxNorm: 830925 1 Capsule(s) PO BID 10/08/2017 10/14/2017 Inactive Synthroid 150 mcg tablet RxNorm: 191754 1 Tablet(s) PO daily in morning, take 30 minutes before meal 10/06/2017 10/07/2017 Inactive brand name only cefdinir 300 mg capsule RxNorm: 424876 1 Capsule(s) PO BID 08/24/2017 08/30/2017 Inactive Zithromax Z-Oliver 250 mg tablet RxNorm: 808773 1 Tablet(s) PO UD 08/20/2017 08/19/2017 Inactive Zithromax Z-Oliver 250 mg tablet RxNorm: 044220 1 Tablet(s) PO UD 08/20/2017 08/24/2017 Inactive Synthroid 150 mcg tablet RxNorm: 323066 1 Tablet(s) PO daily in morning, take 30 minutes before meal 08/05/2017 08/04/2017 Inactive Synthroid 150 mcg tablet RxNorm: 168586 1 Tablet(s) PO daily in morning, take 30 minutes before meal 08/05/2017 10/05/2017 Inactive Coumadin 3 mg tablet RxNorm: 905280 1 Tablet(s) PO Thursday, , , and Thu- Managed by Dr. Bowman -Managed by Dr. Bowman 08/05/2017 05/03/2018 Inactive pantoprazole 40 mg tablet,delayed release RxNorm: 044276 1 Tablet(s) PO BID 07/08/2017 07/02/2018 Inactive pantoprazole 40 mg tablet,delayed release RxNorm: 521773 1 Tablet(s) PO BID 07/08/2017 07/07/2017 Inactive metoprolol succinate ER 100 mg tablet,extended release 24 hr RxNorm: 509775 TAKE ONE TABLET BY MOUTH ONCE DAILY 07/08/2017 01/04/2018 Inactive Coumadin 3 mg tablet RxNorm: 068972 1 Tablet(s) PO QPM -Managed by Dr. Bowman 07/06/2017 08/04/2017 Inactive Coumadin 3 mg tablet RxNorm: 260930 1 Tablet(s) PO QPM at 6:00pm Managed by Dr Bowman 1/2 pill on thursday and thursday, full pill other days 06/18/2017 07/05/2017 Inactive Voltaren 1 % topical gel RxNorm: 639945 2 TOP QID 06/18/2017 10/15/2017 Inactive Micro-K 10 10 mEq capsule,extended release RxNorm: 388240 1 Capsule(s) PO daily 05/08/2017 12/02/2017 Inactive Synthroid 137 mcg tablet RxNorm: 530308 1 Tablet(s) PO QAM 05/08/2017 08/04/2017 Inactive Dose increased 04/14/17 pravastatin 10 mg tablet RxNorm: 282347 1 Tablet(s) PO daily TAKE ONE TABLET BY MOUTH ONCE DAILY 05/08/2017 12/02/2017 Inactive losartan 25 mg tablet RxNorm: 674189 1 Tablet(s) PO daily TAKE ONE TABLET BY MOUTH ONCE DAILY 05/08/2017 06/07/2018 Inactive Namenda 10 mg tablet RxNorm: 978515 TAKE ONE TABLET BY MOUTH TWICE DAILY 05/07/2017 12/02/2017 Inactive Keflex 500 mg capsule RxNorm: 780103 1 Capsule(s) PO TID 04/27/2017 05/03/2017 Inactive Synthroid 137 mcg tablet RxNorm: 709784 1 Tablet(s) PO QAM 04/14/2017 04/13/2017 Inactive Vitamin D2 50,000 unit capsule RxNorm: 361320 1 Capsule(s) PO QW 04/14/2017 12/02/2017 Inactive Synthroid 137 mcg tablet RxNorm: 830116 1 Tablet(s) PO QAM 04/14/2017 05/07/2017 Inactive losartan 25 mg tablet RxNorm: 657160 TAKE ONE TABLET BY MOUTH ONCE DAILY 03/23/2017 05/07/2017 Inactive Synthroid 125 mcg tablet RxNorm: 233852 TAKE ONE TABLET BY MOUTH ONCE DAILY 03/12/2017 04/12/2017 Inactive ciprofloxacin 500 mg tablet RxNorm: 643467 1 Tablet(s) PO BID 2017 03/13/2017 Inactive prednisone 20 mg tablet RxNorm: 555776 2 Tablet(s) PO daily 03/03/2017 03/07/2017 Inactive tramadol 50 mg tablet RxNorm: 692490 1/2 Tablet(s) PO TID as needed 03/03/2017 12/02/2017 Inactive pravastatin 10 mg tablet RxNorm: 180801 TAKE ONE TABLET BY MOUTH ONCE DAILY 01/19/2017 05/07/2017 Inactive nortriptyline 10 mg capsule RxNorm: 574595 TAKE ONE CAPSULE BY MOUTH ONCE DAILY IN THE EVENING 01/14/2017 12/02/2017 Inactive Voltaren 1 % topical gel RxNorm: 287083 TOP QID 12/22/2016 02/19/2017 Inactive Voltaren 1 % topical gel RxNorm: 583664 TOP QID 12/22/2016 12/21/2016 Inactive prednisone 20 mg tablet RxNorm: 542589 2 Tablet(s) PO daily 12/19/2016 12/23/2016 Inactive cyclobenzaprine 5 mg tablet RxNorm: 023240 1/2 Tablet(s) PO BID as needed 12/19/2016 12/23/2016 Inactive Flector 1.3 % transdermal 12 hour patch RxNorm: 466544 1 Patch TOP every 12 hours as needed 12/19/2016 12/02/2017 Inactive losartan 25 mg tablet RxNorm: 407848 1 Tablet(s) PO daily TAKE ONE TABLET BY MOUTH ONCE DAILY 11/13/2016 03/22/2017 Inactive Namenda 10 mg tablet RxNorm: 423260 TAKE ONE TABLET BY MOUTH TWICE DAILY 10/28/2016 04/25/2017 Inactive nortriptyline 10 mg capsule RxNorm: 346433 TAKE ONE CAPSULE BY MOUTH ONCE DAILY IN THE EVENING 10/13/2016 01/10/2017 Inactive ceftriaxone 500 mg solution for injection RxNorm: 3202525 Inj 10/06/2016 10/06/2016 Inactive cefdinir 300 mg capsule RxNorm: 922617 1 Capsule(s) PO BID 10/06/2016 10/12/2016 Inactive prednisone 20 mg tablet RxNorm: 692710 2 Tablet(s) PO daily 10/06/2016 10/08/2016 Inactive ProAir RespiClick 90 mcg/actuation breath activated RxNorm: 5195158 2 INH TID x 3 days then one inhale tid x 3 days then prn shortness of breath 10/06/2016 11/04/2016 Inactive Kenalog 40 mg/mL suspension for injection RxNorm: 6893034 1 Milliliter(s) Inj 10/06/2016 10/06/2016 Inactive Myrbetriq 50 mg tablet,extended release RxNorm: 5204604 1 Tablet(s) PO daily 09/11/2016 11/12/2016 Inactive Namenda 10 mg tablet RxNorm: 535565 TAKE ONE TABLET BY MOUTH TWICE DAILY 07/25/2016 10/22/2016 Inactive hydrochlorothiazide 25 mg tablet RxNorm: 770486 1 Tablet(s) PO daily 07/25/2016 12/02/2017 Inactive Synthroid 125 mcg tablet RxNorm: 640183 TAKE ONE TABLET BY MOUTH ONCE DAILY 07/14/2016 03/10/2017 Inactive losartan 25 mg tablet RxNorm: 125578 TAKE ONE TABLET BY MOUTH ONCE DAILY 07/07/2016 11/12/2016 Inactive metoprolol succinate ER 100 mg tablet,extended release 24 hr RxNorm: 002887 1 Tablet(s) PO daily 06/16/2016 06/10/2017 Inactive nortriptyline 10 mg capsule RxNorm: 006705 Capsule(s) TAKE ONE CAPSULE BY MOUTH ONCE DAILY IN THE EVENING 06/09/2016 10/06/2016 Inactive Myrbetriq 50 mg tablet,extended release RxNorm: 5861920 1 Tablet(s) PO daily 05/21/2016 09/10/2016 Inactive doxycycline hyclate 100 mg tablet RxNorm: 876612 1 Tablet(s) PO BID 05/07/2016 05/13/2016 Inactive Carafate 100 mg/mL oral suspension RxNorm: 614146 10 Milliliter(s) PO QID 05/07/2016 12/02/2017 Inactive Kenalog 40 mg/mL suspension for injection RxNorm: 9885189 Milliliter(s) Inj 04/28/2016 04/28/2016 Inactive losartan 25 mg tablet RxNorm: 124197 TAKE ONE TABLET BY MOUTH ONCE DAILY 04/08/2016 07/06/2016 Inactive ciprofloxacin 500 mg tablet RxNorm: 614812 1 Tablet(s) PO BID 04/07/2016 04/13/2016 Inactive cyclobenzaprine 5 mg tablet RxNorm: 465079 1 Tablet(s) PO TID 04/07/2016 04/16/2016 Inactive Keflex 500 mg capsule RxNorm: 805023 1 Capsule(s) PO TID 04/03/2016 04/02/2016 Inactive Keflex 500 mg capsule RxNorm: 315077 1 Capsule(s) PO TID 04/03/2016 04/09/2016 Inactive losartan 25 mg tablet RxNorm: 062579 TAKE ONE TABLET BY MOUTH ONCE DAILY 03/06/2016 04/07/2016 Inactive nortriptyline 10 mg capsule RxNorm: 665011 TAKE ONE CAPSULE BY MOUTH ONCE DAILY IN THE EVENING 03/06/2016 06/03/2016 Inactive pravastatin 10 mg tablet RxNorm: 750014 TAKE ONE TABLET BY MOUTH ONCE DAILY 02/04/2016 01/18/2017 Inactive warfarin 4 mg tablet RxNorm: 625686 Tablet(s) PO q d except 5mg on tue 01/31/2016 06/17/2017 Inactive Myrbetriq 50 mg tablet,extended release RxNorm: 8116665 1 Tablet(s) PO daily 01/17/2016 05/15/2016 Inactive Namenda 10 mg tablet RxNorm: 937870 1 Tablet(s) PO BID 01/01/2016 06/28/2016 Inactive Myrbetriq 50 mg tablet,extended release RxNorm: 5482613 1 Tablet(s) PO daily 12/20/2015 12/20/2015 Inactive Synthroid 125 mcg tablet RxNorm: 531197 1 Tablet(s) PO daily 11/14/2015 07/10/2016 Inactive nortriptyline 10 mg capsule RxNorm: 869589 TAKE ONE CAPSULE BY MOUTH ONCE DAILY IN THE EVENING 11/05/2015 03/03/2016 Inactive Myrbetriq 50 mg tablet,extended release RxNorm: 8683084 1 Tablet(s) PO daily 10/01/2015 12/19/2015 Inactive Namenda 10 mg tablet RxNorm: 289614 1 Tablet(s) PO BID 08/30/2015 12/31/2015 Inactive Vesicare 10 mg tablet RxNorm: 575537 1 Tablet(s) PO daily 08/30/2015 09/30/2015 Inactive warfarin 4 mg tablet RxNorm: 404884 Tablet(s) PO 08/30/2015 01/30/2016 Inactive Synthroid 125 mcg tablet RxNorm: 619377 1 Tablet(s) PO daily 08/02/2015 11/13/2015 Inactive Synthroid 125 mcg tablet RxNorm: 462191 Tablet(s) PO 08/01/2015 08/01/2015 Inactive losartan 25 mg tablet RxNorm: 307424 1 Tablet(s) PO daily 07/31/2015 02/25/2016 Inactive pravastatin 10 mg tablet RxNorm: 687705 1 Tablet(s) PO daily 07/23/2015 01/18/2016 Inactive hydrochlorothiazide 25 mg tablet RxNorm: 549023 1 Tablet(s) PO daily 07/19/2015 07/12/2016 Inactive nortriptyline 10 mg capsule RxNorm: 990250 1 Capsule(s) PO QPM 07/03/2015 10/30/2015 Inactive metoprolol succinate ER 100 mg tablet,extended release 24 hr RxNorm: 032956 1 Tablet(s) PO daily 06/06/2015 05/30/2016 Inactive pravastatin 10 mg tablet RxNorm: 411313 1 Tablet(s) PO daily 01/22/2015 07/20/2015 Inactive aspirin 81 mg capsule,delayed release RxNorm: 093800 1 Capsule(s) PO daily 01/11/2015 02/09/2015 Inactive Fosamax 5 mg tablet RxNorm: 173809 1 Tablet(s) QW 01/11/2015 12/02/2017 Inactive oxybutynin chloride ER 10 mg tablet,extended release 24 hr RxNorm: 096291 1 Tablet(s) PO daily 01/11/2015 08/29/2015 Inactive Fosamax 70 mg tablet RxNorm: 214832 1 Tablet(s) PO QW No Start Date Active Claritin oral RxNorm: 82517 oral No Start Date Active Centrum oral RxNorm: oral No Start Date Active Calcium 600 + D(3) oral RxNorm: 177220 oral No Start Date Active Coumadin 4 mg tablet RxNorm: 355653 1 Tablet(s) PO daily on M,W,F No Start Date 06/07/2018 Inactive Vitamin D3 oral RxNorm: oral No Start Date 06/16/2018 Inactive pravastatin 10 mg tablet RxNorm: 205956 1 Tablet(s) PO daily No Start Date 01/21/2015 Inactive Aspirin Low Dose 81 mg tablet,delayed release RxNorm: 855463 1 Tablet(s) PO BIW on Thursday and Thursday No Start Date 06/16/2018 Inactive Tylenol PM oral RxNorm: 958733 oral No Start Date 04/07/2017 Inactive Vitamin D2 oral RxNorm: 4018 oral No Start Date 06/08/2018 Inactive Vitamin D2 50,000 unit capsule RxNorm: 582648 1 Capsule(s) PO QW No Start Date 04/13/2017 Inactive tramadol 50 mg tablet RxNorm: 228642 1 Tablet(s) PO TID as needed No Start Date 03/16/2018 Inactive Colace 100 mg capsule RxNorm: 6432429 Capsule(s) PO No Start Date 06/07/2018 Inactive furosemide 40 mg tablet RxNorm: 929936 1 Tablet(s) PO daily as needed No Start Date 07/12/2018 Inactive biotin oral RxNorm: oral No Start Date 06/16/2018 Inactive Micro-K 10 10 mEq capsule,extended release RxNorm: 846300 1 Capsule(s) PO daily No Start Date 05/07/2017 Inactive Synthroid 100 mcg tablet RxNorm: 813920 Tablet(s) PO No Start Date 07/31/2015 Inactive Vitamin B-12 oral RxNorm: oral No Start Date 06/16/2018 Inactive PreserVision AREDS 2 oral RxNorm: 0409841 oral No Start Date 06/07/2018 Inactive hydrochlorothiazide 25 mg tablet RxNorm: 588284 1 Tablet(s) PO daily No Start Date 07/18/2015 Inactive warfarin 2 mg tablet RxNorm: 541166 Tablet(s) PO No Start Date 08/29/2015 Inactive metoprolol succinate ER 100 mg tablet,extended release 24 hr RxNorm: 492660 1 Tablet(s) PO daily No Start Date 06/05/2015 Inactive warfarin 3 mg tablet RxNorm: 428989 Tablet(s) PO No Start Date 08/29/2015 Inactive Coumadin 3 mg tablet RxNorm: 452573 1 Tablet(s) PO QPM at 6:00pm Managed by Dr Bowman No Start Date 06/17/2017 Inactive Myrbetriq 50 mg tablet,extended release RxNorm: 0755339 1 Tablet(s) PO daily No Start Date 08/23/2018 Inactive Medication Administered Medication Codes Instructions Start Date Status Kenalog 40 mg/mL suspension for injection RxNorm: 4598073 2Milliliter 03/12/2018 No longer Active ceftriaxone 500 mg solution for injection RxNorm: 3873975 02/08/2018 No longer Active Kenalog 40 mg/mL suspension for injection RxNorm: 8109939 1Milliliter 10/06/2016 No longer Active ceftriaxone 500 mg solution for injection RxNorm: 0241584 10/06/2016 No longer Active Kenalog 40 mg/mL suspension for injection RxNorm: 4819516 Milliliter 04/28/2016 No longer Active Immunizations Vaccine [...] Localized edema ICD-10: R60.0 ICD-9: 782.3 05/24/2018 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 ICD-10: Z79.01 ICD-9: [...] NO Growth Day 2 05/27/2018 Comp Metabolic Dca141 NA 142 mEq/L 05/24/2018 Comp Metabolic Ryx999 K 4.0 mEq/L 05/24/2018 Comp Metabolic Sak726 CL 104 mEq/L 05/24/2018 Comp Metabolic Jlc927 CO2 30.0 mEq/L 05/24/2018 Comp Metabolic Rra667 ANION GAP 12 05/24/2018 Comp Metabolic Kzc099 GLUCOSE 94 mg/dL 05/24/2018 Comp Metabolic Cnu200 Creat 0.6 mg/dL 05/24/2018 Comp Metabolic Dtn516 eGFR 97 ml/min/1.73m2 05/24/2018 Comp Metabolic Vfe727 BUN 12 mg/dL 05/24/2018 Comp Metabolic Gil567 B/C Ratio 19.4 Ratio 05/24/2018 Comp Metabolic Qtc920 CALCIUM 8.8 mg/dL 05/24/2018 Comp Metabolic Pdd938 ALK PHOS 135 U/L 05/24/2018 Comp Metabolic Gft309 AST(SGOT) 18 U/L 05/24/2018 Comp Metabolic Qkf965 ALT(SGPT) 16 U/L 05/24/2018 Comp Metabolic Tni002 BILI T 0.4 mg/dL 05/24/2018 Comp Metabolic Khs641 ALBUMIN 3.9 g/dL 05/24/2018 Comp Metabolic Zmf101 TPRO 6.0 g/dL 05/24/2018 Comp Metabolic Xnv875 GLOB 2.1 g/dL 05/24/2018 Comp Metabolic Kek458 A/G Ratio 1.8 Ratio 05/24/2018 Comp Metabolic Pur995 Osmo 283 mOsmo 05/24/2018 Pt [id number] PT 28.2 seconds 05/24/2018 Pt Rsm6471 INR 2.6 05/24/2018 Pt Hiu2200 Low Intensity - 1.5-2.0 05/24/2018 Pt Dsx7651 Mod intensity - 2.0-3.0 05/24/2018 Pt Qpb4658 Hi intensity - 3.0-4.0 05/24/2018 Cbc With [...] 29.7 pg 05/24/2018 Cbc With Differential Ord2 Chambers% 7.0 % 05/24/2018 Cbc With Differential Ord2 [...] 1.54 K/ul 05/24/2018 Cbc With Differential Ord2 Chambers ABS# 0.5 K/ul 05/24/2018 Cbc With Differential Ord2 Eos ABS# 0.4 K/ul 05/24/2018 Cbc With Differential Ord2 Baso ABS# 0.0 K/ul 05/24/2018 Tsh Ord6 TSH (3rd IS) 3.19 uIU/mL 10/06/2017 Free T4 Bqm323 FREE T4 1.64 ng/dL 10/06/2017 Free T4 Knb024 FREE T4 1.03 ng/dL 08/05/2017 Tsh Ord6 [...] Ord30 C/HDL 3.7 Ratio 04/09/2017 Free T4 Myh374 FREE T4 0.97 ng/dL 04/09/2017 Tibc Ord40 Iron 36 ug/dl 04/09/2017 Tibc Ord40 UIBC 281 ug/dL 04/09/2017 Tibc Ord40 TIBC 317 ug/dL 04/09/2017 Tibc Ord40 Fe-%Sat 11.4 % 04/09/2017 Comp Metabolic Jng309 NA 136 mEq/L 04/09/2017 Comp Metabolic Mao552 K 3.9 mEq/L 04/09/2017 Comp Metabolic Qcs587 CL 98 mEq/L 04/09/2017 Comp Metabolic Ynb664 CO2 28.0 mEq/L 04/09/2017 Comp Metabolic Pwt929 ANION GAP 14 04/09/2017 Comp Metabolic Ubv105 GLUCOSE 90 mg/dL 04/09/2017 Comp Metabolic Ojy894 Creat 0.6 mg/dL 04/09/2017 Comp Metabolic Tcu185 eGFR 102 ml/min/1.73m2 04/09/2017 Comp Metabolic Oiu589 BUN 9 mg/dL 04/09/2017 Comp Metabolic Muo065 B/C Ratio 15.3 Ratio 04/09/2017 Comp Metabolic Odr830 CALCIUM 8.8 mg/dL 04/09/2017 Comp Metabolic Pjk981 ALK PHOS 102 U/L 04/09/2017 Comp Metabolic Ilr168 AST(SGOT) 18 U/L 04/09/2017 Comp Metabolic Udd054 ALT(SGPT) 14 U/L 04/09/2017 Comp Metabolic Lil939 BILI T 0.4 mg/dL 04/09/2017 Comp Metabolic Lis397 ALBUMIN 3.9 g/dL 04/09/2017 Comp Metabolic Exp236 TPRO 6.3 g/dL 04/09/2017 Comp Metabolic Omk832 GLOB 2.4 g/dL 04/09/2017 Comp Metabolic Skg291 A/G Ratio 1.7 Ratio 04/09/2017 Comp Metabolic Qme849 Osmo 270 mOsmo 04/09/2017 Vitamin D 25 Oh Scw4945 VITAMIN D, 25 HYDROXY 34.31 ng/mL 04/09/2017 [...] 28.9 pg 04/09/2017 Cbc With Differential Ord2 Chambers% 8.8 % 04/09/2017 Cbc With Differential Ord2 [...] 1.22 K/ul 04/09/2017 Cbc With Differential Ord2 Chambers ABS# 0.7 K/ul 04/09/2017 Cbc With Differential Ord2 Eos ABS# 0.1 K/ul 04/09/2017 Cbc With Differential Ord2 Baso ABS# 0.0 K/ul 04/09/2017 Urine Culture Ucult Complete >100,000 col/ml aerobic growth sent to ref lab 03/05/2017 Pt [id number] PT 24.2 seconds 04/14/2016 Pt Wsh4038 INR 2.3 04/14/2016 Pt Ezd8923 Low Intensity - 1.5-2.0 04/14/2016 Pt Vvp8329 Mod intensity - 2.0-3.0 04/14/2016 Pt Ljs3707 Hi intensity - 3.0-4.0 04/14/2016 Pt Vjo3498 PT 31.3 seconds 04/10/2016 Pt Xwl5247 INR 3.3 04/10/2016 Pt Wiv5719 Low Intensity - 1.5-2.0 04/10/2016 Pt Ust4078 Mod intensity - 2.0-3.0 04/10/2016 Pt Rno2891 Hi intensity - 3.0-4.0 04/10/2016 C RAP A SC [id number] Strep A Negative 04/10/2016 Urine Culture Ucult Complete >100,000 col/ml aerobic growth sent to ref lab 04/04/2016 Comp Metabolic Szi889 NA 136 mEq/L 04/03/2016 Comp Metabolic Evr249 K 3.9 mEq/L 04/03/2016 Comp Metabolic Wbg359 CL 99 mEq/L 04/03/2016 Comp Metabolic Fwj905 CO2 32.0 mEq/L 04/03/2016 Comp Metabolic Ngh635 ANION GAP 9 04/03/2016 Comp Metabolic Tek756 GLUCOSE 88 mg/dL 04/03/2016 Comp Metabolic Qwq117 Creat 0.6 mg/dL 04/03/2016 Comp Metabolic Lew704 eGFR 93 ml/min/1.73m2 04/03/2016 Comp Metabolic Tty179 BUN 15 mg/dL 04/03/2016 Comp Metabolic Ipn453 B/C Ratio 23.4 Ratio 04/03/2016 Comp Metabolic Ari254 CALCIUM 8.7 mg/dL 04/03/2016 Comp Metabolic Nfd660 ALK PHOS 100 U/L 04/03/2016 Comp Metabolic Ryq169 AST(SGOT) 28 U/L 04/03/2016 Comp Metabolic Rev961 ALT(SGPT) 39 U/L 04/03/2016 Comp Metabolic Qhd202 BILI T 0.5 mg/dL 04/03/2016 Comp Metabolic Zor326 ALBUMIN 4.1 g/dL 04/03/2016 Comp Metabolic Zdb312 TPRO 6.6 g/dL 04/03/2016 Comp Metabolic Rjp449 GLOB 2.5 g/dL 04/03/2016 Comp Metabolic Bty327 A/G Ratio 1.7 Ratio 04/03/2016 Comp Metabolic Ukg225 Osmo 272 mOsmo 04/03/2016 Cbc With Differential [...] 29.0 pg 04/03/2016 Cbc With Differential Ord2 Chambers% 11.3 % 04/03/2016 Cbc With Differential Ord2 [...] 1.15 K/ul 04/03/2016 Cbc With Differential Ord2 Chambers ABS# 0.8 K/ul 04/03/2016 Cbc With Differential Ord2 Eos ABS# 0.2 K/ul 04/03/2016 Cbc With Differential Ord2 Baso ABS# 0.0 K/ul 04/03/2016 Tsh Ord6 hTSH II 3.06 uIU/mL 04/03/2016 Free T4 [id number] FREE T4 0.99 ng/dL 04/03/2016 Free T4 [id number] FREE T4 0.81 ng/dL 07/31/2015 Comp Metabolic Wcn297 NA 136 mEq/L 07/31/2015 Comp Metabolic Voy640 K 3.8 mEq/L 07/31/2015 Comp Metabolic Nyr893 CL 97 mEq/L 07/31/2015 Comp Metabolic Rwb717 CO2 29.0 mEq/L 07/31/2015 Comp Metabolic Vel197 ANION GAP 14 07/31/2015 Comp Metabolic Gyj721 GLUCOSE 90 mg/dL 07/31/2015 Comp Metabolic Ofs006 Creat 0.7 mg/dL 07/31/2015 Comp Metabolic Jox621 eGFR 80 ml/min/1.73m2 07/31/2015 Comp Metabolic Tpu106 BUN 8 mg/dL 07/31/2015 Comp Metabolic Mil513 B/C Ratio 11.0 Ratio 07/31/2015 Comp Metabolic Pkc861 CALCIUM 8.9 mg/dL 07/31/2015 Comp Metabolic Dbv332 ALK PHOS 102 U/L 07/31/2015 Comp Metabolic Gcf632 AST(SGOT) 22 U/L 07/31/2015 Comp Metabolic Rte872 ALT(SGPT) 14 U/L 07/31/2015 Comp Metabolic Elf018 BILI T 0.5 mg/dL 07/31/2015 Comp Metabolic Bpq808 ALBUMIN 4.4 g/dL 07/31/2015 Comp Metabolic Znr726 TPRO 6.7 g/dL 07/31/2015 Comp Metabolic Vjk257 GLOB 2.3 g/dL 07/31/2015 Comp Metabolic Vlj155 A/G Ratio 1.9 Ratio 07/31/2015 Comp Metabolic Kpb862 Osmo 270 mOsmo 07/31/2015 Tsh Ord6 hTSH [...] Lipid Ord30 C/HDL 4.8 Ratio 07/31/2015 Pt Koz1478 PT 31.9 seconds 07/03/2015 Pt Yut1795 INR 3.2 07/03/2015 Pt Qcw1408 Low Intensity - 1.5-2.0 07/03/2015 Pt Buh7634 Mod intensity - 2.0-3.0 07/03/2015 Pt Bbl6456 Hi intensity - 3.0-4.0 07/03/2015 Review of [...] Codes Date URINALYSIS NONAUTO W/O SCOPE CPT-4: 79808 11/01/2018 PPPS, SUBSEQ VISIT CPT- 4: G0439 06/08/2018 URINALYSIS NONAUTO W/O SCOPE CPT-4: 30948 05/25/2018 ADMIN INFLUENZA VIRUS VAC CPT-4: G0008 05/20/2018 FLU VACC PRSV FREE INC ANTIG CPT-4: 86296 05/20/2018 DRAIN/INJECT JOINT/BURSA CPT-4: 70207 03/23/2018 TRIAMCINOLONE ACET INJ NOS CPT-4: J3301 03/23/2018 DRAIN/INJECT JOINT/BURSA CPT-4: 94151 03/12/2018 TRIAMCINOLONE ACET INJ NOS CPT-4: J3301 03/12/2018 ROCEPHIN, PER 250 MG CPT- 4: J0696 02/08/2018 ADMIN INFLUENZA VIRUS VAC CPT-4: G0008 06/18/2017 FLU VACC PRSV FREE INC ANTIG CPT-4: 77770 06/18/2017 URINALYSIS NONAUTO W/O SCOPE CPT-4: 47376 04/27/2017 URINALYSIS NONAUTO W/O SCOPE CPT-4: 54872 2017 DRAIN/INJECT JOINT/BURSA CPT-4: 40852 03/03/2017 TRIAMCINOLONE ACET INJ NOS CPT-4: J3301 03/03/2017 TRIAMCINOLONE ACET INJ NOS CPT-4: J3301 10/06/2016 ROCEPHIN, PER 250 MG CPT- 4: J0696 10/06/2016 THER/PROPH/DIAG INJ SC/IM CPT-4: 39030 10/06/2016 TRIAMCINOLONE ACET INJ NOS CPT-4: J3301 04/28/2016 URINALYSIS NONAUTO W/O SCOPE CPT-4: 65689 04/03/2016 ADMIN INFLUENZA VIRUS VAC CPT-4: G0008 07/03/2015 FLU VACC PRSV FREE INC ANTIG CPT-4: 60908 07/03/2015 Vital Signs Date Vital 12/28/2018 Blood [...] 1: 134/78 Code: 8480-6 BMI: 27.4 Code: 59591-3 Heart Rate 1: 88 bpm Height: 5'6" Weight: 170 lbs 11/01/2018 Blood Pressure 1: 132/85 Code: 8480-6 BMI: 27.3 Code: 26629-1 Height: 5'6" Weight: 169 lbs 09/30/2018 Blood Pressure 1: 142/80 Code: 8480-6 BMI: 27.3 Code: 36935-9 Heart Rate 1: 84 bpm Height: 5'6" SpO2: 96% Weight: 169 lbs 07/20/2018 Blood Pressure 1: 124/70 Code: 8480-6 Heart Rate 1: 76 bpm Height: SpO2: 95% Weight: 06/29/2018 Blood Pressure 1: 142/80 Code: 8480-6 BMI: 27.8 Code: 48730-0 Heart Rate 1: 89 bpm Height: 5'6" SpO2: 94% Weight: 172 lbs 06/08/2018 Blood Pressure 1: 144/66 Code: 8480-6 BMI: 27.9 Code: 65516-8 Heart Rate 1: 85 bpm Height: 5'6" SpO2: 97% Waist Measure (cm): 97 cm Weight: 173 lbs 05/24/2018 Blood Pressure 1: 128/72 Code: 8480-6 BMI: 27.9 Code: 37179-6 Heart Rate 1: 82 bpm Height: 5'6" SpO2: 92% Weight: 173 lbs 04/06/2018 Blood Pressure 1: 138/88 Code: 8480-6 Heart Rate 1: 86 bpm Height: SpO2: 96% Weight: 03/23/2018 Blood Pressure 1: 150/88 Code: 8480-6 Heart Rate 1: 80 bpm Height: SpO2: 96% Weight: 03/12/2018 Heart Rate 1: 90 bpm Height: Weight: 03/02/2018 Blood Pressure 1: 128/80 Code: 8480-6 BMI: 28.4 Code: 23737-9 Heart Rate 1: 83 bpm Height: 5'6" SpO2: 93% Weight: 176 lbs 02/08/2018 Blood Pressure 1: 142/80 Code: 8480-6 Heart Rate 1: 78 bpm Height: 5'6" SpO2: 94% 12/03/2017 Blood Pressure 1: 124/78 Code: 8480-6 BMI: 27.9 Code: 12238-4 Heart Rate 1: 70 bpm Height: 5'6" SpO2: 97% Weight: 173 lbs 10/27/2017 Blood Pressure 1: 126/60 Code: 8480-6 Heart Rate 1: 65 bpm Height: 5'6" SpO2: 98% Weight: 10/12/2017 Blood Pressure 1: 126/74 Code: 8480-6 BMI: 26.0 Code: 38071-9 Heart Rate 1: 80 bpm Height: 5'6" SpO2: 89% Weight: 161 lbs 10/06/2017 Blood Pressure 1: 126/70 Code: 8480-6 BMI: 27.2 Code: 59969-9 Heart Rate 1: 73 bpm Height: 5'6" SpO2: 97% Weight: 168 lbs 8 oz 08/05/2017 Blood Pressure 1: 152/78 Code: 8480-6 BMI: 27.1 Code: 30439-1 Heart Rate 1: 73 bpm Height: 5'6" SpO2: 98% Weight: 168 lbs 07/06/2017 Blood Pressure 1: 148/70 Code: 8480-6 BMI: 26.6 Code: 83005-5 Heart Rate 1: 80 bpm Height: 5'6" SpO2: 97% Weight: 165 lbs 06/18/2017 Blood Pressure 1: 132/68 Code: 8480-6 BMI: 26.8 Code: 19308-1 Heart Rate 1: 84 bpm Height: 5'6" [...] 1: 162/84 Code: 8480-6 BMI: 28.1 Code: 43968-7 Heart Rate 1: 98 bpm Height: 5'6" SpO2: 97% Weight: 174 lbs 03/03/2017 Blood Pressure 1: 154/88 Code: 8480-6 Heart Rate 1: 96 bpm Height: SpO2: 95% Weight: 01/05/2017 Blood Pressure 1: 142/78 Code: 8480-6 BMI: 28.9 Code: 39084-2 Heart Rate 1: 94 bpm Height: 5'6" SpO2: 95% Weight: 179 lbs 12/19/2016 Blood Pressure 1: 130/74 Code: 8480-6 Heart Rate 1: 91 bpm Height: 5'6" SpO2: 97% Weight: 11/13/2016 Blood Pressure 1: 152/82 Code: 8480-6 BMI: 28.4 Code: 12989-5 Heart Rate 1: 85 bpm Height: 5'6" SpO2: 96% Weight: 176 lbs 10/16/2016 Blood Pressure 1: 148/72 Code: 8480-6 BMI: 28.4 Code: 92144-8 Heart Rate 1: 90 bpm Height: 5'6" SpO2: 96% Weight: 176 lbs 10/06/2016 Blood Pressure 1: 150/80 Code: 8480-6 BMI: 28.4 Code: 69150-5 Heart Rate 1: 76 bpm Height: 5'6" SpO2: 97% Weight: 176 lbs 07/02/2016 Blood Pressure 1: 142/78 Code: 8480-6 BMI: 27.8 Code: 47096-6 Heart Rate 1: 85 bpm Height: 5'6" SpO2: 97% Weight: 172 lbs 05/21/2016 Blood Pressure 1: 166/80 Code: 8480-6 BMI: 27.9 Code: 51931-8 Heart Rate 1: 79 bpm Height: 5'6" SpO2: 98% Weight: 173 lbs 05/07/2016 Blood Pressure 1: 140/70 Code: 8480-6 BMI: 27.9 Code: 28913-5 Heart Rate 1: 82 bpm Height: 5'6" SpO2: 96% Weight: 173 lbs 04/28/2016 Blood Pressure 1: 128/86 Code: 8480-6 BMI: 27.4 Code: 70422-7 Heart Rate 1: 86 bpm Height: 5'6" SpO2: 96% Temperature: 36.1 (C) / 97.0 (F) Weight: 170 lbs 04/07/2016 Blood Pressure 1: 150/80 Code: 8480-6 Heart Rate 1: 94 bpm Height: SpO2: 95% Weight: 04/03/2016 Blood Pressure 1: 122/76 Code: 8480-6 BMI: 27.4 Code: 67017-4 Heart Rate 1: 84 bpm Height: 5'6" SpO2: 94% Weight: 170 lbs 01/31/2016 Blood Pressure 1: 124/82 Code: 8480-6 BMI: 27.8 Code: 27479-2 Heart Rate 1: 100 bpm Height: 5'6" SpO2: 97% Weight: 172 lbs 11/29/2015 Blood Pressure 1: 140/82 Code: 8480-6 Blood Pressure 1: 130/84 Code: 8480-6 BMI: 27.4 Code: 43655-8 Heart Rate 1: 97 bpm Height: 5'6" SpO2: 95% Weight: 170 lbs 10/01/2015 Blood Pressure 1: 130/80 Code: 8480-6 BMI: 27.4 Code: 64677-2 Heart Rate 1: 82 bpm Height: 5'6" SpO2: 97% Weight: 170 lbs 08/30/2015 Blood Pressure 1: 120/68 Code: 8480-6 BMI: 27.6 Code: 06251-5 Heart Rate 1: 91 bpm Height: 5'6" SpO2: 96% Weight: 171 lbs 07/31/2015 Blood Pressure 1: 180/80 Code: 8480-6 BMI: 27.4 Code: 29379-1 Heart Rate 1: 60 bpm Height: 5'6" SpO2: 94% Weight: 170 lbs 07/03/2015 Blood Pressure 1: 154/80 Code: 8480-6 BMI: 27.4 Code: 59800-8 Heart Rate 1: 98 bpm Height: 5'6" SpO2: 95% Weight: 170 lbs 04/10/2015 Blood Pressure 1: 138/72 Code: 8480-6 BMI: 27.8 Code: 41502-5 Heart Rate 1: 82 bpm Height: 5'6" SpO2: 98% Weight: 172 lbs 01/11/2015 Blood Pressure 1: 132/74 Code: 8480-6 BMI: 28.6 Code: 23677-3 Heart Rate 1: 88 bpm Height: 5'6" SpO2: 96% Weight: 177 lbs Functional Status No Functional Status data History of Present Illness Symptom Name Status Result Effective Date Notes Location in the [facility] 12/28/2018 None Location in the [facility] 12/28/2018 None Onset and Resolution resolved 12/28/2018 None Location in the [facility] 12/24/2018 None Location in the [facility] 12/24/2018 None Quality acute 12/24/2018 None Quality [...] than malignant neoplasm[ICD10: Z09] Wendi Anaya MD, [facility] CPT-4: 93744 12/28/2018 71287 EST. PATIENT, LEVEL IV Diagnosis: Left lower quadrant pain[ICD10: R10.32] Diagnosis: Right lower quadrant pain[ICD10: R10.31] Wendi Anaya MD, [facility] CPT-4: 31041 12/24/2018 76305 EST. PATIENT, LEVEL III Diagnosis: Pelvic and perineal pain[ICD10: R10.2] Wendi Anaya MD, [facility] CPT- 4: 78417 12/21/2018 85114 EST. PATIENT, LEVEL III Diagnosis: Chronic systolic (congestive) heart failure[ICD10: I50.22] Diagnosis: Essential (primary) hypertension[ICD10: I10] Diagnosis: Hypoxemia[ICD10: R09.02] Wendi Anaya MD, [facility] CPT-4: 47631 11/23/2018 ([id number]) 88934 EST. PATIENT, LEVEL III Diagnosis: Dysuria[ICD10: R30.0] Diagnosis: Other specified noninflammatory disorders of vagina[ICD10: N89.8] Mimi Anaya MD, [facility] CPT-4: 21724 11/01/2018 ([id number]) 00580 EST. PATIENT, LEVEL IV Diagnosis: Essential (primary) hypertension[ICD10: I10] Diagnosis: Atrophy of thyroid (acquired)[ICD10: E03.4] Carleen Anaya MD, [facility] CPT-4: 48097 09/30/2018 ([id number]) 02730 EST. PATIENT, LEVEL III Diagnosis: Atrophy of thyroid (acquired)[ICD10: E03.4] Diagnosis: Essential (primary) hypertension[ICD10: I10] Carleen Anaya MD, [facility] CPT-4: 19012 07/20/2018 ([id number]) 88823 EST. PATIENT, LEVEL IV Diagnosis: Essential (primary) hypertension[ICD10: I10] Diagnosis: Atrophy of thyroid (acquired)[ICD10: E03.4] Diagnosis: Other fatigue[ICD10: R53.83] Diagnosis: Other insomnia[ICD10: G47.09] Carleen Anaya MD, [facility] CPT-4: 65216 06/29/2018 ([id number]) 12815 EST. PATIENT, LEVEL IV Diagnosis: Localized edema[ICD10: R60.0] Diagnosis: Muscle weakness (generalized)[ICD10: M62.81] Diagnosis: Dysuria[ICD10: R30.0] Diagnosis: residential (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 of anticoagulants[ICD10: Z79.01] Diagnosis: Essential (primary) hypertension[ICD10: I10] Mimi Anaya MD, [facility] CPT-4: 32897 05/24/2018 ([id number]) 69489 EST. PATIENT, LEVEL III Diagnosis: Lumbago with sciatica, right side[ICD10: M54.41] Diagnosis: Sciatica, right side[ICD10: M54.31] Carleen Anaya MD, [facility] CPT- 4: 12914 04/06/2018 ([id number]) 85382 EST. PATIENT, LEVEL III Diagnosis: Lumbago with sciatica, right side[ICD10: M54.41] Diagnosis: Sciatica, right side[ICD10: M54.31] Carleen Anaya MD, [facility] CPT- 4: 10391 03/23/2018 13179 EST. PATIENT, LEVEL III Diagnosis: Low back pain[ICD10: M54.5] Diagnosis: Sacroiliitis, not elsewhere classified[ICD10: M46.1] Wendi Anaya MD, [facility] CPT-4: 26950 03/12/2018 ([id number]) 98609 EST. PATIENT, LEVEL IV Diagnosis: Atrophy of thyroid (acquired)[ICD10: E03.4] Diagnosis: Essential (primary) hypertension[ICD10: I10] Diagnosis: Urge incontinence[ICD10: N39.41] Carleen Anaya MD, [facility] CPT-4: 37029 03/02/2018 ([id number]) 27215 EST. PATIENT, LEVEL III Diagnosis: Cellulitis of face[ICD10: L03.211] Mimi Anaya MD, [facility] CPT- 4: 28707 02/08/2018 ([id number]) 59984 EST. PATIENT, LEVEL IV Diagnosis: Atrophy of thyroid (acquired)[ICD10: E03.4] Diagnosis: Essential (primary) hypertension[ICD10: I10] Diagnosis: Urge incontinence[ICD10: N39.41] Carleen Anaya MD, [facility] CPT-4: 71269 12/03/2017 32403 EST. PATIENT, LEVEL IV Diagnosis: Essential (primary) hypertension[ICD10: I10] Diagnosis: Weakness[ICD10: R53.1] Diagnosis: Low back pain[ICD10: M54.5] Diagnosis: Other allergic rhinitis[ICD10: J30.89] Wendi Anaya MD, [facility] CPT- 4: 95639 10/27/2017 39151 EST. PATIENT, LEVEL IV Diagnosis: Pneumonia due to other specified bacteria[ICD10: J15.8] Diagnosis: Chronic systolic (congestive) heart failure[ICD10: I50.22] Wendi Anaya MD, [facility] CPT-4: 18410 10/12/2017 ([id number]) 84302 EST. PATIENT, LEVEL IV Diagnosis: Atrophy of thyroid (acquired)[ICD10: E03.4] Diagnosis: Nonscarring hair loss, unspecified[ICD10: L65.9] Diagnosis: Essential (primary) hypertension[ICD10: I10] Carleen Anaya MD, [facility] CPT-4: 71207 10/06/2017 ([id number]) 73505 EST. PATIENT, LEVEL IV Diagnosis: Atrophy of thyroid (acquired)[ICD10: E03.4] Diagnosis: Essential (primary) hypertension[ICD10: I10] Diagnosis: Localized edema[ICD10: R60.0] Carleen Anaya MD, [facility] CPT-4: 65220 08/05/2017 ([id number]) 35719 EST. PATIENT, LEVEL IV Diagnosis: Essential (primary) hypertension[ICD10: I10] Diagnosis: Weakness[ICD10: R53.1] Diagnosis: Other fecal abnormalities[ICD10: R19.5] Carleen Anaya MD, [facility] CPT-4: 17354 07/06/2017 ([id number]) 21691 EST. 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 PATIENT, LEVEL IV Diagnosis: Pain in right shoulder[ICD10: M25.511] Diagnosis: Weakness[ICD10: R53.1] Diagnosis: Other fatigue[ICD10: R53.83] Diagnosis: Other malaise[ICD10: R53.81] Wendi Anaya MD, [facility] CPT-4: 02164 05/11/2017 ([id number]) Miscellaneous no charge Diagnosis: Essential (primary) hypertension[ICD10: I10] Mimi Anaya MD, [facility] CPT-4: 93770 04/30/2017 ([id number]) 52032 EST. PATIENT, LEVEL III Diagnosis: Acute recurrent maxillary sinusitis[ICD10: J01.01] Diagnosis: Urinary tract infection, site not specified[ICD10: N39.0] Mimi Anaya MD, [facility] CPT-4: 65710 04/27/2017 ([id number]) 00609 EST. PATIENT, LEVEL IV Diagnosis: Atrophy of thyroid (acquired)[ICD10: E03.4] Diagnosis: Essential (primary) hypertension[ICD10: I10] Diagnosis: Iron deficiency[ICD10: E61.1] Diagnosis: Other specified heart block[ICD10: I45.5] Carleen Anaya MD, [facility] CPT-4: 04768 04/08/2017 90278 EST. PATIENT, LEVEL III Diagnosis: Low back pain[ICD10: M54.5] Diagnosis: Sacroiliitis, not elsewhere classified[ICD10: M46.1] Wendi Anaya MD, [facility] CPT-4: 55170 03/03/2017 ([id number]) 15396 EST. PATIENT, LEVEL IV Diagnosis: Essential (primary) hypertension[ICD10: I10] Diagnosis: Atrophy of thyroid (acquired)[ICD10: E03.4] Diagnosis: Vascular dementia without behavioral disturbance[ICD10: F01.50] Carleen Anaya MD, [facility] CPT-4: 88468 01/05/2017 30607 EST. PATIENT, LEVEL III Diagnosis: Cervicalgia[ICD10: M54.2] Diagnosis: Other muscle spasm[ICD10: M62.838] Wendi Anaya MD, [facility] CPT-4: 22816 12/19/2016 ([id number]) 65964 EST. PATIENT, LEVEL III Diagnosis: Essential (primary) hypertension[ICD10: I10] Diagnosis: Gastro-esophageal reflux disease without esophagitis[ICD10: K21.9] Carleen Anaya MD, [facility] CPT-4: 58794 11/13/2016 ([id number]) 34796 EST. PATIENT, LEVEL III Diagnosis: Pain in right shoulder[ICD10: M25.511] Diagnosis: Insomnia due to medical condition[ICD10: G47.01] Carleen Anaya MD, [facility] CPT-4: 08986 10/16/2016 ([id number]) 62409 EST. PATIENT, LEVEL IV Diagnosis: Pneumonia due to other specified bacteria[ICD10: J15.8] Diagnosis: Pain in right shoulder[ICD10: M25.511] Diagnosis: Cough[ICD10: R05] Carleen Anaya MD, [facility] CPT-4: 59878 10/06/2016 ([id number]) 14314 EST. PATIENT, LEVEL IV Diagnosis: Essential (primary) hypertension[ICD10: I10] Diagnosis: Personal history of other specified conditions[ICD10: Z87.898] Diagnosis: Unsteadiness on feet[ICD10: R26.81] Carleen Anaya MD, [facility] CPT- 4: 66426 07/02/2016 ([id number]) 90371 EST. PATIENT, LEVEL IV Diagnosis: Dysphagia, pharyngeal phase[ICD10: R13.13] Diagnosis: Urge incontinence[ICD10: N39.41] Diagnosis: Gastro-esophageal reflux disease without esophagitis[ICD10: K21.9] Carleen Anaya MD, [facility] CPT-4: 25556 05/21/2016 ([id number]) 13404 EST. PATIENT, LEVEL III Diagnosis: Gastro-esophageal reflux disease without esophagitis[ICD10: K21.9] Carleen Anaya MD, [facility] CPT-4: 45153 05/07/2016 ([id number]) 64179 EST. PATIENT, LEVEL III Diagnosis: Acute laryngopharyngitis[ICD10: J06.0] Diagnosis: Dysphagia, pharyngeal phase[ICD10: R13.13] Diagnosis: Allergic rhinitis due to pollen[ICD10: J30.1] Mimi Anaya MD, [facility] CPT-4: 45282 04/28/2016 ([id number]) Miscellaneous no charge Diagnosis: Acute laryngopharyngitis[ICD10: J06.0] Wendi Anaya MD, [facility] CPT- 4: 16948 04/10/2016 11420 EST. PATIENT, LEVEL IV Diagnosis: Cervicalgia[ICD10: M54.2] Diagnosis: Acute laryngopharyngitis[ICD10: J06.0] Diagnosis: residential (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 of anticoagulants[ICD10: Z79.01] Diagnosis: Other cystitis without hematuria[ICD10: N30.80] Wendi Anaya MD, [facility] CPT-4: 20550 04/07/2016 ([id number]) 97111 EST. PATIENT, LEVEL IV Diagnosis: Essential (primary) hypertension[ICD10: I10] Diagnosis: Hypothyroidism, unspecified[ICD10: E03.9] Diagnosis: Other fatigue[ICD10: R53.83] Diagnosis: Urge incontinence[ICD10: N39.41] Mimi Anaya MD, [facility] CPT- 4: 89660 04/03/2016 ([id number]) 50884 EST. PATIENT, LEVEL IV Diagnosis: Essential (primary) hypertension[ICD10: I10] Diagnosis: Pain in right ankle and joints of right foot[ICD10: M25.571] Diagnosis: Dizziness and giddiness[ICD10: R42] Diagnosis: Tinnitus, bilateral[ICD10: H93.13] Mimi Anaya MD, [facility] CPT- 4: 18069 01/31/2016 ([id number]) 31773 EST. PATIENT, LEVEL IV Diagnosis: Essential (primary) hypertension[ICD10: I10] Diagnosis: Otalgia, right ear[ICD10: H92.01] Diagnosis: Allergic rhinitis due to pollen[ICD10: J30.1] Diagnosis: Hypothyroidism, unspecified[ICD10: E03.9] Mimi Anaya MD, [facility] CPT-4: 08097 11/29/2015 ([id number]) 25968 EST. PATIENT, LEVEL IV Diagnosis: Essential (primary) hypertension[ICD10: I10] Diagnosis: Urge incontinence[ICD10: N39.41] Diagnosis: Unspecified dementia without behavioral disturbance[ICD10: F03.90] Mimi Anaya MD, [facility] CPT-4: 22136 10/01/2015 ([id number]) 30096 EST. PATIENT, LEVEL IV Diagnosis: Essential (primary) hypertension[ICD10: I10] Diagnosis: Hypothyroidism, unspecified[ICD10: E03.9] Diagnosis: Unspecified dementia without behavioral disturbance[ICD10: F03.90] Diagnosis: Urge incontinence[ICD10: N39.41] Mimi Anaya MD, [facility] CPT- 4: 15589 08/30/2015 ([id number]) 73512 EST. PATIENT, LEVEL IV Diagnosis: Essential (primary) hypertension[ICD10: I10] Diagnosis: Hypothyroidism, unspecified[ICD10: E03.9] Diagnosis: Hyperlipidemia, unspecified[ICD10: E78.5] Carleen Anaya MD, [facility] CPT-4: 82225 07/31/2015 ([id number]) 95163 EST. PATIENT, LEVEL IV Diagnosis: Essential (primary) hypertension[ICD10: I10] Diagnosis: residential (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 of anticoagulants[ICD10: Z79.01] Diagnosis: Dizziness and giddiness[ICD10: R42] Carleen Anaya MD, [facility] CPT- 4: 37334 07/03/2015 ([id number]) 05619 EST. PATIENT, LEVEL IV Diagnosis: ESSENTIAL HYPERTENSION[ICD9: 401.9] Diagnosis: MACULAR DEGENERATION[ICD9: 362.50] Diagnosis: Peripheral vascular disease[ICD9: 443.9] Diagnosis: Neuropathy[ICD9: 355.9] [facility] CPT-4: 17109 04/10/2015 ([id number]) OFFICE/OUTPATIENT VISIT NEW Diagnosis: ESSENTIAL HYPERTENSION[ICD9: 401.9] Diagnosis: HYPOTHYROIDISM[ICD9: 244.9] Diagnosis: URGE INCONTINENCE[ICD9: 788.31] Diagnosis: Constipation - functional[ICD9: 564.09] Carleen Anaya MD, [facility] CPT-4: 32796 01/11/2015 Plan of Care Planned Activity Notes Codes Status Date Visit Plan: abdominal pain - improved - pt is to finish abx as directed - pt is to notify clinic if symptoms do not continue to improve, if they return, or with any changes, questions, or concerns. 12/28/2018 Appointment: Wendi Uriostegui WPtel: [facility] ([facility] min) Complex 12/28/2018 Patient Education: Patient Medication Summary Completed 12/28/2018 Visit Plan: Low abdominal pain, possible Diverticulitis - rx for antibiotic sent to pt's pharmacy - pt advised to avoid seeds, nuts, popcorn, or any other food which has been proven to upset the pt's stomach. 12/24/2018 Appointment: Wendi Uriostegui WPtel: [address] [place], [place] [address] (30 min) Complex 12/24/2018 Patient Education: Patient Medication Summary Completed 12/24/2018 Visit Plan: UTI - pt with positive urinalysis - culture sent if appropriate. Antibiotic electronically prescribed to pt's pharmacy of choice. Pt to call if symptoms do not improve. 12/21/2018 Appointment: [facility]egui [facility] [phone] [facility] ([facility] min) Complex 12/21/2018 Patient Education: Patient [...] O2. 11/23/2018 Appointment: [facility]ui [facility] [phone] [facility] ([facility] min) Complex 11/23/2018 Patient Education: Patient Medication Summary Completed 11/23/2018 Visit Plan: Possible vaginal bleeding -patient has a history of total hysterectomy -no obvious bleeding today upon inspection -will culture urine -monitor symptoms and call if bleeding persists or worsens. 11/01/2018 Appointment: [facility] [phone] [facility] (30 min) Complex 11/01/2018 Patient Education: Patient [...] Anaya WPtel: [facility] (15 min) Moderate 09/30/2018 Patient Education: Patient Medication Summary Completed 09/30/2018 Appointment: Carleen Anaya WPtel: [facility] (15 min) Moderate 09/22/2018 Visit Plan: Hypothyroidism [...] Anaya WPtel: [facility] (15 min) Moderate 07/20/2018 Patient Education: Patient [...] do so at this time. 06/29/2018 Appointment: Carelen [facility] [phone] [facility] (15 min) Moderate 06/29/2018 Patient Education: Patient [...] Espinosa WPtel: [phone] [facility] - Annual Wellness Visit 06/08/2018 Patient [...] edema. Weakness-fatigue- check labs Dysuria- check UA ZHA-mdfymqlclc-th changes in medications 05/24/2018 Appointment: Mimi Espinosa WPtel: [phone] (15 min) Moderate 05/24/2018 Patient Education: Patient Medication Summary Completed 05/24/2018 Appointment: Injection 05/20/2018 Patient Education: Patient Medication Summary Completed 05/20/2018 Visit Plan: Sciatica- pt to continue with aleve twice daily and cyclobenzaprine x 1 week. Pt is to call if the symptoms do not improve or if they worsen. referral to [facility] physical therapy. 04/06/2018 Appointment: Carleen Anaya WPtel: [facility] (15 min) Moderate 04/06/2018 Patient Education: Patient [...] do not improve or if they worsen. [id number] - kenalog 03/23/2018 Appointment: Carleen Anaya WPtel: [facility] (15 min) Moderate 03/23/2018 Patient Education: [...] Uriostegui WPtel: [facility] (30 min) Complex 03/12/2018 Patient Education: Patient [...] with myrbetric 03/02/2018 Appointment: Carleen Anaya WPtel: [phone] [facility] (15 min) Moderate 03/02/2018 Patient Education: Patient Medication Summary Completed 03/02/2018 Appointment: (10 min) Simple 02/09/2018 Visit Plan: Cellulitis - start oral antibiotics as directed, return to clinic as directed, call for acute change in symptoms, worsening redness, warmth, discharge. 02/08/2018 Appointment: Mimi Espinosa WPtel: [phone] [phone] [place] (15 min) Moderate 02/08/2018 Patient Education: [...] daily. 12/03/2017 Appointment: Carleen Anaya WPtel: [phone] [facility] [place] (15 min) Moderate 12/03/2017 Patient Education: [...] allergy spray. 10/27/2017 Appointment: Wendi Uriostegui WPtel: [address] [place], [place] [id number] (15 min) Moderate 10/27/2017 Patient Education: Patient Medication Summary Completed 10/27/2017 Visit Plan: Pneumonia - Pt has been diagnosed with pneumonia by physical exam. A chest xray has been ordered as have antibiotics. The pt is aware of the diagnosis and the need for acute treatment of this illness. 10/12/2017 Appointment: Wendi Uriostegui WPtel: [facility]2 [facility]6[address] (15 min) Moderate 10/12/2017 Patient Education: [...] Anaya WPtel: [facility]6 [facility] (15 min) Moderate 10/06/2017 Patient Education: Patient [...] Anaya WPtel: [facility] (15 min) Moderate 08/05/2017 Patient Education: Patient Medication Summary Completed 08/05/2017 Appointment: Carleen Anaya WPtel: [facility]5 [facility]66[facility] (15 min) Moderate 07/14/2017 Visit Plan: Hypertension [...] Anaya WPtel: [facility]5 [facility]6[address] (15 min) Moderate 07/06/2017 Patient Education: [...] shot today 06/18/2017 Appointment: Carleen Anaya WPtel: 1012 [facility] [place] (15 min) Moderate 06/18/2017 Patient Education: Patient Medication Summary Completed 06/18/2017 Appointment: Nurse Visit 05/12/2017 Care Plan: X-RAY EXAM OF SHOULDER LOINC : 49442-5 Pending 05/12/2017 Visit Plan: Weakness, fatigue, malaise - Discussed with Dr. 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 Pt is to follow up with her oncologist. Right shoulder pain after fall - will send for X-ray - The pt is to use prn antiinflammatories to manage acute pain. The patient is to call the office if the pain is worsening or does not improve. 05/11/2017 Appointment: Wendi Uriostegui WPtel: 1015 [facility] [place] (30 min) Complex 05/11/2017 Patient Education: [...] of plan. 04/27/2017 Appointment: Mimi Espinosa WPtel: 1012 [phone] [place] (15 min) Moderate 04/27/2017 Patient Education: [...] heart beat - recommended evaluation by her Pre Owned Sales Consultant - Dr. Butler - I attempted a phone call to the office of Dr. Butler, I had to leave a message on the answering machine. If i don't hear back from Dr. Butler's office, we will need to do a Holter monitor on patient. 04/08/2017 Appointment: [facility] (15 min) Moderate 04/08/2017 Patient Education: Patient Medication Summary Completed 04/08/2017 Care Plan: Referral Order SNOMED-CT : [id number] Pending 04/08/2017 Visit Plan: UTI - pt [...] injection. 03/03/2017 Appointment: Wendi [facility]ostegui [facility]Ptel[facility] (30 min) Complex 03/03/2017 Patient Education: Patient [...] control. 01/05/2017 Appointment: Carleen Anaya WPtel: 1015 [facility]6[address] (15 min) Moderate 01/05/2017 Patient Education: Patient Medication Summary Completed 01/05/2017 Visit Plan: Neck Pain- pt to start with aspercreme or biofreeze to neck three times daily and start neck exercises daily. Will send RX - The patient is to call the office if the pain is worsening or does not improve. 12/19/2016 Appointment: Wendi Uriostegui WPtel: [facility]9 [facility] (30 min) Complex 12/19/2016 Patient Education: Patient [...] symptoms are not improving. 11/13/2016 Appointment: Carleen Aanya WPtel: 1015 [facility] (15 min) Moderate 11/13/2016 Patient Education: Patient Medication Summary Completed 11/13/2016 Visit Plan: Insomnia -extended release melatonin - you can take up to 10mg of melatonin sleepy time tea - - use warm milk in the tea. Right shoulder - pt to continue with therapy, anti-inflammatory 10/16/2016 Appointment: Carleen Anaya WPtel: 1015 [facility] (15 min) Moderate 10/16/2016 Patient Education: Patient [...] pt. 10/06/2016 Appointment: Carleen Anaya WPtel: 1015 [facility] (15 min) Moderate 10/06/2016 Patient Education: Patient Medication Summary Completed 10/06/2016 Care Plan: X-RAY EXAM OF SHOULDER LOINC : 02341-0 Pending 10/06/2016 Appointment: Carleen Anaya WPtel: [facility]5 [facility] (30 min) Complex 10/01/2016 Referral: [facility] WPtel: 1014 [facility] Patient informed. Completed 07/08/2016 Visit Plan: Hypertension [...] therapy. 07/02/2016 Appointment: Carleen Anaya WPtel: 1015 [facility] (15 min) Moderate 07/02/2016 Patient Education: Patient Medication Summary Completed 07/02/2016 Care Plan: Referral Order SNOMED-CT : [id number] Pending 07/02/2016 Visit Plan: Hypertension - well [...] planning on getting a flu shot at [facility] and she is due for another pneumovax- last pneumovax was in 2008 - so she can have pneumovax now and the prevnar in 2017 05/21/2016 Appointment: Carleen Anaya WPtel: [facility]4 [address] (15 min) Moderate 05/21/2016 Patient Education: Patient Medication Summary Completed 05/21/2016 Referral: Nasima [address] Referral Completed 05/12/2016 Visit Plan: Esophageal [...] Anaya WPtel: [facility] [address] (15 min) Moderate 05/07/2016 Patient Education: Patient Medication Summary Completed 05/07/2016 Appointment: Mimi Espinosa WPtel: [facility]1 [address] (30 min) Complex 05/01/2016 Visit Plan: [...] Kenalog injection today in the office Sore cpbitj-luvcaxlxf-cyxbz dexilant-refer to Dr Del Real for evaluation 04/28/2016 Appointment: Mimi Espinosa WPtel: 1015 [phone] (30 min) Complex 04/28/2016 Patient Education: Patient [...] switched. 04/07/2016 Appointment: Wendi Uriostegui WPtel: 1015 [facility] (30 min) Complex 04/07/2016 Patient Education: Patient [...] atigue-check labs including UA-culture if positive Urge gwqvzwoyxltk-tvdlshjlr-taapv UA with C&S 04/03/2016 Appointment: Mimi Espinosa WPtel: 1015 [phone] (30 min) Complex 04/03/2016 Patient Education: Patient Medication Summary Completed 04/03/2016 Visit Plan: Hypertension - well controlled - continue with current medications, continue with no added salt diet. Pt has been encouraged to exercise daily. The pt has been advised to call the office if there are any acute concerns about change in blood pressure readings at home. Syxqzrcnx-cdtxqcvg-vwcrqlap MRI brain Right ankle ualf-zrclhvd-ywhn right ankle- plan to refer to physical therapy if appropriate 01/31/2016 Appointment: Mimi Espinosa WPtel: [phone] (30 min) Complex 01/31/2016 Patient Education: Patient [...] to medications. 07/31/2015 Appointment: Carleen Anaya [facility]Ptel[facility] (15 min) Moderate 07/31/2015 Patient Education: Patient Medication Summary Completed 07/31/2015 Patient Education: Hypertension Completed 07/31/2015 Care Plan: Referral Order SNOMED-CT : [id number] Ordered 07/31/2015 Visit Plan: Hypertension - uncontrolled [...] on Nortryptyline 07/03/2015 Appointment: Carleen Anaya [facility]Ptel: [facility] (15 min) Moderate 07/03/2015 Patient Education: Patient [...] Completed 01/11/2015 Referral: [facility] WPtel: [address] [place], [place] [id number] [place] Referral Appointment Requested Referral: External, Ordering Provider Referral Appointment Requested Referral: External, Ordering Provider Referral Relationship Referral: Nasima [facility] [place] Referral Appointment Requested Instructions Comment [...] planning on getting a flu shot at [facility] and she is due for another [...] heart beat - recommended evaluation by her Pre Owned Sales Consultant - Dr. Butler - I attempted a [...] Kenalog injection today in the office Sore ticpsr-biakcaqzf-macqy dexilant-refer to Dr Del Real for evaluation [...] Fatigue-check labs including UA-culture if positive Urge ctfsudyfkray-tpxspisdv-mdevq UA with C&S add z-pack, continue cefdinir [...] edema. Weakness-fatigue- check labs Dysuria- check UA EOB-gutcsbsveh-bn changes in medications . Hypertension - well controlled - continue with current medications, continue with no added salt diet. Pt has been encouraged to exercise daily. The pt has been advised to call the office if there are any acute concerns about change in blood pressure readings at home. Xczaptvgd-fovqksyu-sehqbebe MRI brain Right ankle izsm-zwywyxy-yqlx right ankle-plan to refer to physical therapy [...] improve or if they worsen. referral to [facility] physical therapy. . Hypertension - well controlled [...] do not improve or if they worsen. [id number] - kenalog Stop Oxybutynin chloride ER. Start [...] is to keep her appointment with her fiscal services director for her ECHO and Carotid US. Pt [...]
--- OUTSIDE RECORDS SUMMARY | 2019-01-01 10:54 | XMS REPORT | CCD ---
Author Author [facility] Organization [facility] Address [address] [place] [address] Phone Care Team Providers Care Supervisor Filling And Packing Name Role Phone PP Unavailable CCM Unavailable Summary Purpose Interface Exchange Insurance Providers Payer name Policy type / Coverage type Covered democrat ID Effective Begin Date Effective End Date WPS Medicare Part B Medicare Part B [id number] Unknown Unknown [facility] Medicare Part B [id number] Unknown Unknown Family history Father Diagnosis Age At Onset Cancer Unknown Arthritis Unknown Mother Diagnosis Age At Onset Breast cancer Unknown Arthritis Unknown Social History Social History Element Codes Description Effective Dates Alcohol history Unknown occasionally drinks alcohol 06/08/2018 Frequency of drinks SNOMED CT: 082251002 Drinks rarely 06/08/2018 Marital status Unknown 01/11/2015 Number of children Unknown 3 01/11/2015 Employment Unknown Retired 01/11/[address]: 5850376 Quit over 10 years ago 1950 01/11/[address]: 136320852 Never drinks alcohol 01/11/2015 Allergies, Adverse Reactions, Alerts Substance Reaction Codes Entered Date Inactivated Date Status * OTHER REACTION - SEE ANSWER BOX vancogein red Unknown 01/11/2015 No Inactive Date Active CODEINE RxNorm: 2670 01/11/2015 No Inactive Date Active demerol RxNorm: 741677 08/30/2015 No Inactive Date Active hydrocodone Unknown [...] ICD-9: 782.3 ICD-10: R60.0 Active 08/05/2017 Unknown 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 (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 of anticoagulants ICD-9: V58.61 ICD-10: [...] edema ICD-9: 782.3 ICD-10: R60.0 08/05/2017 Active assisted (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 of anticoagulants ICD-9: V58.61 ICD-10: [...] Start Date Stop Date Status Fill Instructions Flagyl 500 mg tablet RxNorm: 247592 1 Tablet(s) PO TID 12/24/2018 12/30/2018 Active Keflex 500 mg capsule RxNorm: 344142 1 Capsule(s) PO TID 12/21/2018 12/30/2018 Active Pyridium 200 mg tablet RxNorm: 7246402 1 Tablet(s) PO TID as needed for pain 12/21/2018 12/22/2018 Inactive Synthroid 175 mcg tablet RxNorm: 482229 1 Tablet(s) PO daily 09/30/2018 02/26/2019 Active this is an update on the dose - she is to take this daily - hold off on the 200mcg pills for now Synthroid 175 mcg tablet RxNorm: 997513 1 Tablet(s) PO 5 times weekly 09/30/2018 09/29/2018 Inactive alternate with 175mcg order losartan 25 mg tablet RxNorm: 335124 TAKE 1 TABLET BY MOUTH ONCE DAILY 08/30/2018 No Stop Date Active Myrbetriq 50 mg tablet,extended release RxNorm: 9982022 1 Tablet(s) PO daily 08/24/2018 12/21/2018 Inactive Synthroid 175 mcg tablet RxNorm: 267765 1 Tablet(s) PO 4 times a week Thu07/20/2018 09/29/2018 Inactive alternate with 175mcg order Synthroid 200 mcg tablet RxNorm: 427051 Tablet(s) TAKE ONE TABLET BY MOUTH ON THURSDAY, Thursday07/20/2018 09/29/2018 Inactive pantoprazole 40 mg tablet,delayed release RxNorm: 908918 TAKE ONE TABLET BY MOUTH TWICE DAILY 07/19/2018 No Stop Date Active furosemide 40 mg tablet RxNorm: 189665 1 Tablet(s) PO 2 times weekly with song roberto per dr butler 07/13/2018 No Stop Date Active Synthroid 200 mcg tablet RxNorm: 039544 TAKE ONE TABLET BY MOUTH ON THURSDAY, THURSDAY, AND Thursday07/13/2018 07/19/2018 Inactive Vitamin D3 400 unit capsule RxNorm: 341456 1 Capsule(s) PO daily 06/17/2018 No Stop Date Active Aspirin Low Dose 81 mg tablet,delayed release RxNorm: 969511 1 Tablet(s) PO BIW on Thursday and Thursday06/17/2018 No Stop Date Active biotin 1,000 mcg chewable tablet RxNorm: 9398720 1 Tablet(s) PO daily 06/17/2018 No Stop Date Active Vitamin B-12 500 mcg tablet RxNorm: 827843 1 Tablet(s) PO daily 06/17/2018 No Stop Date Active Colace 100 mg capsule RxNorm: 5383987 1 Capsule(s) PO QHS 06/08/2018 No Stop Date Active Coumadin 3 mg tablet RxNorm: 603155 1 Tablet(s) PO daily x5 days and 2 mg x2 days -Managed by Dr. Bowman 06/08/2018 No Stop Date Active Keflex 500 mg capsule RxNorm: 194704 1 Capsule(s) PO TID 05/25/2018 05/31/2018 Inactive metoprolol succinate ER 100 mg tablet,extended release 24 hr RxNorm: 718586 Tablet(s) TAKE ONE TABLET BY MOUTH ONCE DAILY 05/19/2018 No Stop Date Active Coumadin 3 mg tablet RxNorm: 443039 1 Tablet(s) PO daily -Managed by Dr. Bowman 05/04/2018 06/07/2018 Inactive Synthroid 175 mcg tablet RxNorm: 567530 TAKE 1 TABLET BY MOUTH ONCE DAILY 04/06/2018 06/07/2018 Inactive cyclobenzaprine 5 mg tablet RxNorm: 704264 1/2 Tablet(s) PO TID 04/06/2018 04/15/2018 Inactive Synthroid 200 mcg tablet RxNorm: 053433 1 Tablet(s) PO TIW [facility] 04/05/2018 07/12/2018 Inactive brand name only- Alternate with 175mcg dose schedule Synthroid 175 mcg tablet RxNorm: 697567 1 Tablet(s) PO 4 times a week Thu04/05/2018 07/19/2018 Inactive alternate with 175mcg order cyclobenzaprine 5 mg tablet RxNorm: 228271 1/2 Tablet(s) PO TID 03/23/2018 04/01/2018 Inactive tramadol 50 mg tablet RxNorm: 094225 1 Tablet(s) PO TID as needed 03/17/2018 No Stop Date Active Kenalog 40 mg/mL suspension for injection RxNorm: 4842760 2 Milliliter(s) Inj 03/12/2018 03/12/2018 Inactive prednisone 20 mg tablet RxNorm: 814949 2 Tablet(s) PO daily 03/11/2018 03/10/2018 Inactive prednisone 20 mg tablet RxNorm: 520889 2 Tablet(s) PO daily 03/11/2018 03/15/2018 Inactive losartan 25 mg tablet RxNorm: 099691 TAKE ONE TABLET BY MOUTH ONCE DAILY 02/16/2018 08/29/2018 Inactive doxycycline hyclate 100 mg tablet RxNorm: 6334435 1 Tablet(s) PO BID 02/08/2018 02/14/2018 Inactive ceftriaxone 500 mg solution for injection RxNorm: 1659048 Inj 02/08/2018 02/08/2018 Inactive dapsone 25 mg tablet RxNorm: 987326 2 Tablet(s) PO daily 02/08/2018 02/12/2018 Inactive metoprolol succinate ER 100 mg tablet,extended release 24 hr RxNorm: 273510 TAKE ONE TABLET BY MOUTH ONCE DAILY 01/05/2018 05/18/2018 Inactive Synthroid 175 mcg tablet RxNorm: 539504 1 Tablet(s) PO daily 01/01/2018 03/31/2018 Inactive Synthroid 175 mcg tablet RxNorm: 993516 1 Tablet(s) PO daily 01/01/2018 12/31/2017 Inactive Myrbetriq 50 mg tablet,extended release RxNorm: 9510685 1 Tablet(s) PO daily 12/03/2017 01/01/2018 Inactive Zithromax Z-Oliver 250 mg tablet RxNorm: 510904 1 Tablet(s) PO UD 10/12/2017 10/16/2017 Inactive Tessalon Perles 100 mg capsule RxNorm: 405116 2 Capsule(s) PO TID as needed 10/12/2017 10/16/2017 Inactive prednisone 20 mg tablet RxNorm: 611932 2 Tablet(s) PO daily 10/12/2017 10/16/2017 Inactive cefdinir 300 mg capsule RxNorm: 749904 1 Capsule(s) PO BID 10/08/2017 10/07/2017 Inactive Synthroid 150 mcg tablet RxNorm: 844524 1 Tablet(s) PO daily in morning, except 1/2 Tablet PO Thu, Thu, take 30 minutes before meal 10/08/2017 04/04/2018 Inactive brand name only cefdinir 300 mg capsule RxNorm: 540085 1 Capsule(s) PO BID 10/08/2017 10/14/2017 Inactive Synthroid 150 mcg tablet RxNorm: 281675 1 Tablet(s) PO daily in morning, take 30 minutes before meal 10/06/2017 10/07/2017 Inactive brand name only cefdinir 300 mg capsule RxNorm: 985348 1 Capsule(s) PO BID 08/24/2017 08/30/2017 Inactive Zithromax Z-Oliver 250 mg tablet RxNorm: 408615 1 Tablet(s) PO UD 08/20/2017 08/19/2017 Inactive Zithromax Z-Oliver 250 mg tablet RxNorm: 324395 1 Tablet(s) PO UD 08/20/2017 08/24/2017 Inactive Synthroid 150 mcg tablet RxNorm: 328869 1 Tablet(s) PO daily in morning, take 30 minutes before meal 08/05/2017 08/04/2017 Inactive Synthroid 150 mcg tablet RxNorm: 654681 1 Tablet(s) PO daily in morning, take 30 minutes before meal 08/05/2017 10/05/2017 Inactive Coumadin 3 mg tablet RxNorm: 030980 1 Tablet(s) PO Thursday, , , and Thu- Managed by Dr. Bowman -Managed by Dr. Bowman 08/05/2017 05/03/2018 Inactive pantoprazole 40 mg tablet,delayed release RxNorm: 530214 1 Tablet(s) PO BID 07/08/2017 07/02/2018 Inactive pantoprazole 40 mg tablet,delayed release RxNorm: 913470 1 Tablet(s) PO BID 07/08/2017 07/07/2017 Inactive metoprolol succinate ER 100 mg tablet,extended release 24 hr RxNorm: 435038 TAKE ONE TABLET BY MOUTH ONCE DAILY 07/08/2017 01/04/2018 Inactive Coumadin 3 mg tablet RxNorm: 571533 1 Tablet(s) PO QPM -Managed by Dr. Bowman 07/06/2017 08/04/2017 Inactive Coumadin 3 mg tablet RxNorm: 775629 1 Tablet(s) PO QPM at 6:00pm Managed by Dr Bowman 1/2 pill on thursday and thursday, full pill other days 06/18/2017 07/05/2017 Inactive Voltaren 1 % topical gel RxNorm: 550026 2 TOP QID 06/18/2017 10/15/2017 Inactive Micro-K 10 10 mEq capsule,extended release RxNorm: 019128 1 Capsule(s) PO daily 05/08/2017 12/02/2017 Inactive Synthroid 137 mcg tablet RxNorm: 464630 1 Tablet(s) PO QAM 05/08/2017 08/04/2017 Inactive Dose increased 04/14/17 pravastatin 10 mg tablet RxNorm: 702581 1 Tablet(s) PO daily TAKE ONE TABLET BY MOUTH ONCE DAILY 05/08/2017 12/02/2017 Inactive losartan 25 mg tablet RxNorm: 768131 1 Tablet(s) PO daily TAKE ONE TABLET BY MOUTH ONCE DAILY 05/08/2017 06/07/2018 Inactive Namenda 10 mg tablet RxNorm: 382558 TAKE ONE TABLET BY MOUTH TWICE DAILY 05/07/2017 12/02/2017 Inactive Keflex 500 mg capsule RxNorm: 201545 1 Capsule(s) PO TID 04/27/2017 05/03/2017 Inactive Synthroid 137 mcg tablet RxNorm: 113978 1 Tablet(s) PO QAM 04/14/2017 04/13/2017 Inactive Vitamin D2 50,000 unit capsule RxNorm: 987051 1 Capsule(s) PO QW 04/14/2017 12/02/2017 Inactive Synthroid 137 mcg tablet RxNorm: 889566 1 Tablet(s) PO QAM 04/14/2017 05/07/2017 Inactive losartan 25 mg tablet RxNorm: 741947 TAKE ONE TABLET BY MOUTH ONCE DAILY 03/23/2017 05/07/2017 Inactive Synthroid 125 mcg tablet RxNorm: 054009 TAKE ONE TABLET BY MOUTH ONCE DAILY 03/12/2017 04/12/2017 Inactive ciprofloxacin 500 mg tablet RxNorm: 991917 1 Tablet(s) PO BID 2017 03/13/2017 Inactive prednisone 20 mg tablet RxNorm: 587938 2 Tablet(s) PO daily 03/03/2017 03/07/2017 Inactive tramadol 50 mg tablet RxNorm: 517954 1/2 Tablet(s) PO TID as needed 03/03/2017 12/02/2017 Inactive pravastatin 10 mg tablet RxNorm: 712876 TAKE ONE TABLET BY MOUTH ONCE DAILY 01/19/2017 05/07/2017 Inactive nortriptyline 10 mg capsule RxNorm: 128386 TAKE ONE CAPSULE BY MOUTH ONCE DAILY IN THE EVENING 01/14/2017 12/02/2017 Inactive Voltaren 1 % topical gel RxNorm: 158452 TOP QID 12/22/2016 02/19/2017 Inactive Voltaren 1 % topical gel RxNorm: 560763 TOP QID 12/22/2016 12/21/2016 Inactive prednisone 20 mg tablet RxNorm: 523708 2 Tablet(s) PO daily 12/19/2016 12/23/2016 Inactive cyclobenzaprine 5 mg tablet RxNorm: 335001 1/2 Tablet(s) PO BID as needed 12/19/2016 12/23/2016 Inactive Flector 1.3 % transdermal 12 hour patch RxNorm: 703486 1 Patch TOP every 12 hours as needed 12/19/2016 12/02/2017 Inactive losartan 25 mg tablet RxNorm: 661951 1 Tablet(s) PO daily TAKE ONE TABLET BY MOUTH ONCE DAILY 11/13/2016 03/22/2017 Inactive Namenda 10 mg tablet RxNorm: 841888 TAKE ONE TABLET BY MOUTH TWICE DAILY 10/28/2016 04/25/2017 Inactive nortriptyline 10 mg capsule RxNorm: 370348 TAKE ONE CAPSULE BY MOUTH ONCE DAILY IN THE EVENING 10/13/2016 01/10/2017 Inactive ceftriaxone 500 mg solution for injection RxNorm: 4632204 Inj 10/06/2016 10/06/2016 Inactive cefdinir 300 mg capsule RxNorm: 536480 1 Capsule(s) PO BID 10/06/2016 10/12/2016 Inactive prednisone 20 mg tablet RxNorm: 473345 2 Tablet(s) PO daily 10/06/2016 10/08/2016 Inactive ProAir RespiClick 90 mcg/actuation breath activated RxNorm: 3778951 2 INH TID x 3 days then one inhale tid x 3 days then prn shortness of breath 10/06/2016 11/04/2016 Inactive Kenalog 40 mg/mL suspension for injection RxNorm: 6996884 1 Milliliter(s) Inj 10/06/2016 10/06/2016 Inactive Myrbetriq 50 mg tablet,extended release RxNorm: 9185230 1 Tablet(s) PO daily 09/11/2016 11/12/2016 Inactive Namenda 10 mg tablet RxNorm: 694320 TAKE ONE TABLET BY MOUTH TWICE DAILY 07/25/2016 10/22/2016 Inactive hydrochlorothiazide 25 mg tablet RxNorm: 119623 1 Tablet(s) PO daily 07/25/2016 12/02/2017 Inactive Synthroid 125 mcg tablet RxNorm: 237624 TAKE ONE TABLET BY MOUTH ONCE DAILY 07/14/2016 03/10/2017 Inactive losartan 25 mg tablet RxNorm: 526741 TAKE ONE TABLET BY MOUTH ONCE DAILY 07/07/2016 11/12/2016 Inactive metoprolol succinate ER 100 mg tablet,extended release 24 hr RxNorm: 752123 1 Tablet(s) PO daily 06/16/2016 06/10/2017 Inactive nortriptyline 10 mg capsule RxNorm: 968575 Capsule(s) TAKE ONE CAPSULE BY MOUTH ONCE DAILY IN THE EVENING 06/09/2016 10/06/2016 Inactive Myrbetriq 50 mg tablet,extended release RxNorm: 9489867 1 Tablet(s) PO daily 05/21/2016 09/10/2016 Inactive doxycycline hyclate 100 mg tablet RxNorm: 189700 1 Tablet(s) PO BID 05/07/2016 05/13/2016 Inactive Carafate 100 mg/mL oral suspension RxNorm: 836780 10 Milliliter(s) PO QID 05/07/2016 12/02/2017 Inactive Kenalog 40 mg/mL suspension for injection RxNorm: 6352813 Milliliter(s) Inj 04/28/2016 04/28/2016 Inactive losartan 25 mg tablet RxNorm: 393045 TAKE ONE TABLET BY MOUTH ONCE DAILY 04/08/2016 07/06/2016 Inactive ciprofloxacin 500 mg tablet RxNorm: 410067 1 Tablet(s) PO BID 04/07/2016 04/13/2016 Inactive cyclobenzaprine 5 mg tablet RxNorm: 855525 1 Tablet(s) PO TID 04/07/2016 04/16/2016 Inactive Keflex 500 mg capsule RxNorm: 878041 1 Capsule(s) PO TID 04/03/2016 04/02/2016 Inactive Keflex 500 mg capsule RxNorm: 244945 1 Capsule(s) PO TID 04/03/2016 04/09/2016 Inactive losartan 25 mg tablet RxNorm: 348045 TAKE ONE TABLET BY MOUTH ONCE DAILY 03/06/2016 04/07/2016 Inactive nortriptyline 10 mg capsule RxNorm: 453990 TAKE ONE CAPSULE BY MOUTH ONCE DAILY IN THE EVENING 03/06/2016 06/03/2016 Inactive pravastatin 10 mg tablet RxNorm: 945759 TAKE ONE TABLET BY MOUTH ONCE DAILY 02/04/2016 01/18/2017 Inactive warfarin 4 mg tablet RxNorm: 819217 Tablet(s) PO q d except 5mg on tue 01/31/2016 06/17/2017 Inactive Myrbetriq 50 mg tablet,extended release RxNorm: 9823560 1 Tablet(s) PO daily 01/17/2016 05/15/2016 Inactive Namenda 10 mg tablet RxNorm: 112120 1 Tablet(s) PO BID 01/01/2016 06/28/2016 Inactive Myrbetriq 50 mg tablet,extended release RxNorm: 8691188 1 Tablet(s) PO daily 12/20/2015 12/20/2015 Inactive Synthroid 125 mcg tablet RxNorm: 222893 1 Tablet(s) PO daily 11/14/2015 07/10/2016 Inactive nortriptyline 10 mg capsule RxNorm: 529344 TAKE ONE CAPSULE BY MOUTH ONCE DAILY IN THE EVENING 11/05/2015 03/03/2016 Inactive Myrbetriq 50 mg tablet,extended release RxNorm: 3411738 1 Tablet(s) PO daily 10/01/2015 12/19/2015 Inactive Namenda 10 mg tablet RxNorm: 894043 1 Tablet(s) PO BID 08/30/2015 12/31/2015 Inactive Vesicare 10 mg tablet RxNorm: 160113 1 Tablet(s) PO daily 08/30/2015 09/30/2015 Inactive warfarin 4 mg tablet RxNorm: 159406 Tablet(s) PO 08/30/2015 01/30/2016 Inactive Synthroid 125 mcg tablet RxNorm: 203308 1 Tablet(s) PO daily 08/02/2015 11/13/2015 Inactive Synthroid 125 mcg tablet RxNorm: 546039 Tablet(s) PO 08/01/2015 08/01/2015 Inactive losartan 25 mg tablet RxNorm: 465901 1 Tablet(s) PO daily 07/31/2015 02/25/2016 Inactive pravastatin 10 mg tablet RxNorm: 321598 1 Tablet(s) PO daily 07/23/2015 01/18/2016 Inactive hydrochlorothiazide 25 mg tablet RxNorm: 168254 1 Tablet(s) PO daily 07/19/2015 07/12/2016 Inactive nortriptyline 10 mg capsule RxNorm: 308120 1 Capsule(s) PO QPM 07/03/2015 10/30/2015 Inactive metoprolol succinate ER 100 mg tablet,extended release 24 hr RxNorm: 707517 1 Tablet(s) PO daily 06/06/2015 05/30/2016 Inactive pravastatin 10 mg tablet RxNorm: 596791 1 Tablet(s) PO daily 01/22/2015 07/20/2015 Inactive aspirin 81 mg capsule,delayed release RxNorm: 197733 1 Capsule(s) PO daily 01/11/2015 02/09/2015 Inactive Fosamax 5 mg tablet RxNorm: 342275 1 Tablet(s) QW 01/11/2015 12/02/2017 Inactive oxybutynin chloride ER 10 mg tablet,extended release 24 hr RxNorm: 184809 1 Tablet(s) PO daily 01/11/2015 08/29/2015 Inactive Fosamax 70 mg tablet RxNorm: 536915 1 Tablet(s) PO QW No Start Date Active Claritin oral RxNorm: 30152 oral No Start Date Active Centrum oral RxNorm: oral No Start Date Active Calcium 600 + D(3) oral RxNorm: 482301 oral No Start Date Active Coumadin 4 mg tablet RxNorm: 427328 1 Tablet(s) PO daily on M,, No Start Date 06/07/2018 Inactive Vitamin D3 oral RxNorm: oral No Start Date 06/16/2018 Inactive pravastatin 10 mg tablet RxNorm: 876671 1 Tablet(s) PO daily No Start Date 01/21/2015 Inactive Aspirin Low Dose 81 mg tablet,delayed release RxNorm: 920101 1 Tablet(s) PO BIW on Thursday and Thursday No Start Date 06/16/2018 Inactive Tylenol PM oral RxNorm: 106160 oral No Start Date 04/07/2017 Inactive Vitamin D2 oral RxNorm: 4018 oral No Start Date 06/08/2018 Inactive Vitamin D2 50,000 unit capsule RxNorm: 620491 1 Capsule(s) PO QW No Start Date 04/13/2017 Inactive tramadol 50 mg tablet RxNorm: 738607 1 Tablet(s) PO TID as needed No Start Date 03/16/2018 Inactive Colace 100 mg capsule RxNorm: 7425701 Capsule(s) PO No Start Date 06/07/2018 Inactive furosemide 40 mg tablet RxNorm: 461714 1 Tablet(s) PO daily as needed No Start Date 07/12/2018 Inactive biotin oral RxNorm: oral No Start Date 06/16/2018 Inactive Micro-K 10 10 mEq capsule,extended release RxNorm: 998651 1 Capsule(s) PO daily No Start Date 05/07/2017 Inactive Synthroid 100 mcg tablet RxNorm: 122484 Tablet(s) PO No Start Date 07/31/2015 Inactive Vitamin B-12 oral RxNorm: oral No Start Date 06/16/2018 Inactive PreserVision AREDS 2 oral RxNorm: 1488615 oral No Start Date 06/07/2018 Inactive hydrochlorothiazide 25 mg tablet RxNorm: 416340 1 Tablet(s) PO daily No Start Date 07/18/2015 Inactive warfarin 2 mg tablet RxNorm: 199587 Tablet(s) PO No Start Date 08/29/2015 Inactive metoprolol succinate ER 100 mg tablet,extended release 24 hr RxNorm: 276869 1 Tablet(s) PO daily No Start Date 06/05/2015 Inactive warfarin 3 mg tablet RxNorm: 310662 Tablet(s) PO No Start Date 08/29/2015 Inactive Coumadin 3 mg tablet RxNorm: 998275 1 Tablet(s) PO QPM at 6:00pm Managed by Dr Bowman No Start Date 06/17/2017 Inactive Myrbetriq 50 mg tablet,extended release RxNorm: 5642078 1 Tablet(s) PO daily No Start Date 08/23/2018 Inactive Medication Administered Medication Codes Instructions Start Date Status Kenalog 40 mg/mL suspension for injection RxNorm: 3883158 2Milliliter 03/12/2018 No longer Active ceftriaxone 500 mg solution for injection RxNorm: 5881644 02/08/2018 No longer Active Kenalog 40 mg/mL suspension for injection RxNorm: 8753199 1Milliliter 10/06/2016 No longer Active ceftriaxone 500 mg solution for injection RxNorm: 3004344 10/06/2016 No longer Active Kenalog 40 mg/mL suspension for injection RxNorm: 2904126 Milliliter 04/28/2016 No longer Active Immunizations Vaccine [...] Localized edema ICD-10: R60.0 ICD-9: 782.3 05/24/2018 assisted (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 of anticoagulants ICD-10: Z79.01 ICD-9: [...] NO Growth Day 2 05/27/2018 Comp Metabolic Rcf996 NA 142 mEq/L 05/24/2018 Comp Metabolic Wdr116 K 4.0 mEq/L 05/24/2018 Comp Metabolic Fai884 CL 104 mEq/L 05/24/2018 Comp Metabolic Swk261 CO2 30.0 mEq/L 05/24/2018 Comp Metabolic Sxu667 ANION GAP 12 05/24/2018 Comp Metabolic Cdw990 GLUCOSE 94 mg/dL 05/24/2018 Comp Metabolic Dco133 Creat 0.6 mg/dL 05/24/2018 Comp Metabolic Hzq921 eGFR 97 ml/min/1.73m2 05/24/2018 Comp Metabolic Ggs911 BUN 12 mg/dL 05/24/2018 Comp Metabolic Vlf301 B/C Ratio 19.4 Ratio 05/24/2018 Comp Metabolic Duj111 CALCIUM 8.8 mg/dL 05/24/2018 Comp Metabolic Gjz260 ALK PHOS 135 U/L 05/24/2018 Comp Metabolic Tiu032 AST(SGOT) 18 U/L 05/24/2018 Comp Metabolic Qls660 ALT(SGPT) 16 U/L 05/24/2018 Comp Metabolic Sqn185 BILI T 0.4 mg/dL 05/24/2018 Comp Metabolic Otk358 ALBUMIN 3.9 g/dL 05/24/2018 Comp Metabolic Tlo903 TPRO 6.0 g/dL 05/24/2018 Comp Metabolic Xyb908 GLOB 2.1 g/dL 05/24/2018 Comp Metabolic Xls113 A/G Ratio 1.8 Ratio 05/24/2018 Comp Metabolic Bst401 Osmo 283 mOsmo 05/24/2018 Pt Yco5311 PT 28.2 seconds 05/24/2018 Pt Buo7746 INR 2.6 05/24/2018 Pt Pnu8396 Low Intensity - 1.5-2.0 05/24/2018 Pt Faf6935 Mod intensity - 2.0-3.0 05/24/2018 Pt Hff6985 Hi intensity - 3.0-4.0 05/24/2018 Cbc With [...] 29.7 pg 05/24/2018 Cbc With Differential Ord2 [place]% 7.0 % 05/24/2018 Cbc With Differential Ord2 [...] 1.54 K/ul 05/24/2018 Cbc With Differential Ord2 [place] ABS# 0.5 K/ul 05/24/2018 Cbc With Differential Ord2 Eos ABS# 0.4 K/ul 05/24/2018 Cbc With Differential Ord2 Baso ABS# 0.0 K/ul 05/24/2018 Tsh Ord6 TSH (3rd IS) 3.19 uIU/mL 10/06/2017 Free T4 Ybm497 FREE T4 1.64 ng/dL 10/06/2017 Free T4 Ubv827 FREE T4 1.03 ng/dL 08/05/2017 Tsh Ord6 [...] Ord30 C/HDL 3.7 Ratio 04/09/2017 Free T4 Fxn791 FREE T4 0.97 ng/dL 04/09/2017 Tibc Ord40 Iron 36 ug/dl 04/09/2017 Tibc Ord40 UIBC 281 ug/dL 04/09/2017 Tibc Ord40 TIBC 317 ug/dL 04/09/2017 Tibc Ord40 Fe-%Sat 11.4 % 04/09/2017 Comp Metabolic Nim685 NA 136 mEq/L 04/09/2017 Comp Metabolic Tbr773 K 3.9 mEq/L 04/09/2017 Comp Metabolic Xsq498 CL 98 mEq/L 04/09/2017 Comp Metabolic Iqd316 CO2 28.0 mEq/L 04/09/2017 Comp Metabolic Xuy161 ANION GAP 14 04/09/2017 Comp Metabolic Zzp828 GLUCOSE 90 mg/dL 04/09/2017 Comp Metabolic Bpa960 Creat 0.6 mg/dL 04/09/2017 Comp Metabolic Ggu829 eGFR 102 ml/min/1.73m2 04/09/2017 Comp Metabolic Ndp857 BUN 9 mg/dL 04/09/2017 Comp Metabolic Qds120 B/C Ratio 15.3 Ratio 04/09/2017 Comp Metabolic Buc204 CALCIUM 8.8 mg/dL 04/09/2017 Comp Metabolic Knf418 ALK PHOS 102 U/L 04/09/2017 Comp Metabolic Soy463 AST(SGOT) 18 U/L 04/09/2017 Comp Metabolic Ptr992 ALT(SGPT) 14 U/L 04/09/2017 Comp Metabolic Pae767 BILI T 0.4 mg/dL 04/09/2017 Comp Metabolic Zsr929 ALBUMIN 3.9 g/dL 04/09/2017 Comp Metabolic Hxc290 TPRO 6.3 g/dL 04/09/2017 Comp Metabolic Bpu652 GLOB 2.4 g/dL 04/09/2017 Comp Metabolic Sdl853 A/G Ratio 1.7 Ratio 04/09/2017 Comp Metabolic Ymy044 Osmo 270 mOsmo 04/09/2017 Vitamin D 25 Oh Hnw4983 VITAMIN D, 25 HYDROXY 34.31 ng/mL 04/09/2017 [...] 28.9 pg 04/09/2017 Cbc With Differential Ord2 [place]% 8.8 % 04/09/2017 Cbc With Differential Ord2 [...] 1.22 K/ul 04/09/2017 Cbc With Differential Ord2 [place] ABS# 0.7 K/ul 04/09/2017 Cbc With Differential Ord2 Eos ABS# 0.1 K/ul 04/09/2017 Cbc With Differential Ord2 Baso ABS# 0.0 K/ul 04/09/2017 Urine Culture Ucult Complete >100,000 col/ml aerobic growth sent to ref lab 03/05/2017 Pt Wwa2937 PT 24.2 seconds 04/14/2016 Pt Gzt2622 INR 2.3 04/14/2016 Pt Swa0701 Low Intensity - 1.5-2.0 04/14/2016 Pt Sct9429 Mod intensity - 2.0-3.0 04/14/2016 Pt Vdx0377 Hi intensity - 3.0-4.0 04/14/2016 Pt Qgs2871 PT 31.3 seconds 04/10/2016 Pt Eqy7896 INR 3.3 04/10/2016 Pt Odw6684 Low Intensity - 1.5-2.0 04/10/2016 Pt Dmu2117 Mod intensity - 2.0-3.0 04/10/2016 Pt Nsm1330 Hi intensity - 3.0-4.0 04/10/2016 C RAP A SC [id number] Strep A Negative 04/10/2016 Urine Culture Ucult Complete >100,000 col/ml aerobic growth sent to ref lab 04/04/2016 Comp Metabolic Irb954 NA 136 mEq/L 04/03/2016 Comp Metabolic Jcr195 K 3.9 mEq/L 04/03/2016 Comp Metabolic Qmc748 CL 99 mEq/L 04/03/2016 Comp Metabolic Iem928 CO2 32.0 mEq/L 04/03/2016 Comp Metabolic Mgk536 ANION GAP 9 04/03/2016 Comp Metabolic Lik018 GLUCOSE 88 mg/dL 04/03/2016 Comp Metabolic Cxc933 Creat 0.6 mg/dL 04/03/2016 Comp Metabolic Kqy190 eGFR 93 ml/min/1.73m2 04/03/2016 Comp Metabolic Alp724 BUN 15 mg/dL 04/03/2016 Comp Metabolic Ynt179 B/C Ratio 23.4 Ratio 04/03/2016 Comp Metabolic Cvx689 CALCIUM 8.7 mg/dL 04/03/2016 Comp Metabolic Sac320 ALK PHOS 100 U/L 04/03/2016 Comp Metabolic Gqd184 AST(SGOT) 28 U/L 04/03/2016 Comp Metabolic Qvq208 ALT(SGPT) 39 U/L 04/03/2016 Comp Metabolic Yrv406 BILI T 0.5 mg/dL 04/03/2016 Comp Metabolic Hry521 ALBUMIN 4.1 g/dL 04/03/2016 Comp Metabolic Vit396 TPRO 6.6 g/dL 04/03/2016 Comp Metabolic Eml663 GLOB 2.5 g/dL 04/03/2016 Comp Metabolic Ghy565 A/G Ratio 1.7 Ratio 04/03/2016 Comp Metabolic Wsb747 Osmo 272 mOsmo 04/03/2016 Cbc With Differential [...] 29.0 pg 04/03/2016 Cbc With Differential Ord2 [place]% 11.3 % 04/03/2016 Cbc With Differential Ord2 [...] 1.15 K/ul 04/03/2016 Cbc With Differential Ord2 [place] ABS# 0.8 K/ul 04/03/2016 Cbc With Differential Ord2 Eos ABS# 0.2 K/ul 04/03/2016 Cbc With Differential Ord2 Baso ABS# 0.0 K/ul 04/03/2016 Tsh Ord6 hTSH II 3.06 uIU/mL 04/03/2016 Free T4 Lde937 FREE T4 0.99 ng/dL 04/03/2016 Free T4 Mmu518 FREE T4 0.81 ng/dL 07/31/2015 Comp Metabolic Twv819 NA 136 mEq/L 07/31/2015 Comp Metabolic Yfc906 K 3.8 mEq/L 07/31/2015 Comp Metabolic Dii431 CL 97 mEq/L 07/31/2015 Comp Metabolic Ldc218 CO2 29.0 mEq/L 07/31/2015 Comp Metabolic Dkr969 ANION GAP 14 07/31/2015 Comp Metabolic Euy218 GLUCOSE 90 mg/dL 07/31/2015 Comp Metabolic Hsw086 Creat 0.7 mg/dL 07/31/2015 Comp Metabolic Gbi117 eGFR 80 ml/min/1.73m2 07/31/2015 Comp Metabolic Qeh782 BUN 8 mg/dL 07/31/2015 Comp Metabolic Jiz526 B/C Ratio 11.0 Ratio 07/31/2015 Comp Metabolic Gus075 CALCIUM 8.9 mg/dL 07/31/2015 Comp Metabolic Fug830 ALK PHOS 102 U/L 07/31/2015 Comp Metabolic Gqv133 AST(SGOT) 22 U/L 07/31/2015 Comp Metabolic Fpp289 ALT(SGPT) 14 U/L 07/31/2015 Comp Metabolic Nzp854 BILI T 0.5 mg/dL 07/31/2015 Comp Metabolic Rnt298 ALBUMIN 4.4 g/dL 07/31/2015 Comp Metabolic Axv054 TPRO 6.7 g/dL 07/31/2015 Comp Metabolic Wfc721 GLOB 2.3 g/dL 07/31/2015 Comp Metabolic Qpi234 A/G Ratio 1.9 Ratio 07/31/2015 Comp Metabolic Ohj061 Osmo 270 mOsmo 07/31/2015 Tsh Ord6 hTSH [...] Lipid Ord30 C/HDL 4.8 Ratio 07/31/2015 Pt Ysg1679 PT 31.9 seconds 07/03/2015 Pt Irz3961 INR 3.2 07/03/2015 Pt Pzo3271 Low Intensity - 1.5-2.0 07/03/2015 Pt Kyi0515 Mod intensity - 2.0-3.0 07/03/2015 Pt Yty4477 Hi intensity - 3.0-4.0 07/03/2015 Review of [...] hygiene 10/12/2017 None Full Exam - General 1994 Eyes conjunctiva/eyelids Overall: conjunctiva clear 10/12/2017 None [...] dentition 10/06/2017 None Full Exam - General 1994 Ears/Nose/Throat oral cavity/pharynx/larynx Overall: oral mucosa clear 10/06/2017 None Full Exam - General 1994 Ears/Nose/Throat oral cavity/pharynx/larynx Overall: oropharyngeal mucosa clear 10/06/2017 None Full Exam - General 1994 Ears/Nose/Throat oral cavity/pharynx/larynx Overall: hypopharynx benign 10/06/2017 [...] General 1995 Ears/Nose/Throat external nose Overall: non-tender 04/27/2017 None [...] drainage 04/27/2017 None Full Exam - General 1995 Ears/Nose/Throat internal nose Overall: nasopharynx benign 04/27/2017 None Full Exam - General 1995 Ears/Nose/Throat lips/teeth/gingiva Overall: benign lips 04/27/2017 None Full Exam - General 1994 Ears/Nose/Throat lips/teeth/gingiva Overall: normal dentition 04/27/2017 None Full Exam - General 1995 Ears/Nose/Throat lips/teeth/gingiva Overall: benign gingiva 04/27/2017 None Full Exam - General 1995 Ears/Nose/Throat lips/teeth/gingiva Overall: no masses 04/27/2017 None Full Exam - General 1995 Ears/Nose/Throat oral cavity/pharynx/larynx Overall: oral mucosa clear 04/27/2017 None Full Exam - General 1995 Ears/Nose/Throat oral cavity/pharynx/larynx Overall: oropharyngeal mucosa clear 04/27/2017 None Full Exam - General 1995 Ears/Nose/Throat oral cavity/pharynx/larynx Overall: no masses 04/27/2017 [...] 1994 Ears/Nose/Throat external nose Overall: no masses 04/08/2017 [...] lips 04/08/2017 None Full Exam - General 1995 Ears/Nose/Throat lips/teeth/gingiva Overall: normal dentition 04/08/2017 None Full Exam - General 1994 Ears/Nose/Throat lips/teeth/gingiva Overall: benign gingiva 04/08/2017 None Full Exam - General 1995 Ears/Nose/Throat lips/teeth/gingiva Overall: no masses 04/08/2017 None [...] benign 01/05/2017 None Full Exam - General 1995 Ears/Nose/Throat lips/teeth/gingiva Overall: benign lips 01/05/2017 None Full Exam - General 1994 Ears/Nose/Throat lips/teeth/gingiva Overall: normal dentition 01/05/2017 None Full Exam - General 1995 Ears/Nose/Throat lips/teeth/gingiva Overall: benign gingiva 01/05/2017 None [...] General 1994 Ears/Nose/Throat external nose Overall: non-tender 11/13/2016 None Full Exam - General 1994 [...] tenderness 11/13/2016 None Full Exam - General 1995 Ears/Nose/Throat internal nose Overall: no drainage 11/13/2016 None Full Exam - General 1994 Ears/Nose/Throat internal nose Overall: nasopharynx benign 11/13/2016 None Full Exam - General 1995 Ears/Nose/Throat lips/teeth/gingiva Overall: benign lips 11/13/2016 None Full Exam - General 1995 Ears/Nose/Throat lips/teeth/gingiva Overall: normal dentition 11/13/2016 None Full Exam - General 1995 Ears/Nose/Throat lips/teeth/gingiva Overall: benign gingiva 11/13/2016 None Full Exam - General 1995 Ears/Nose/Throat lips/teeth/gingiva Overall: no masses 11/13/2016 None [...] accomodation 10/16/2016 None Full Exam - General 1994 Ears/Nose/Throat otoscopic exam Overall: external auditory canals clear 10/16/2016 None Full Exam - General 1994 Ears/Nose/Throat otoscopic exam Overall: tympanic membranes clear 10/16/2016 None Full Exam - General 1995 Ears/Nose/Throat lips/teeth/gingiva Overall: benign lips 10/16/2016 None Full Exam - General 1994 Ears/Nose/Throat lips/teeth/gingiva Overall: normal dentition 10/16/2016 None [...] General 1994 Ears/Nose/Throat lips/teeth/gingiva Overall: benign lips 10/06/2016 None Full Exam - General 1994 Ears/Nose/Throat lips/teeth/gingiva Overall: normal dentition 10/06/2016 None Full Exam - General 1994 Ears/Nose/Throat lips/teeth/gingiva Overall: benign gingiva 10/06/2016 None Full Exam - General 1994 Ears/Nose/Throat lips/teeth/gingiva Overall: no masses 10/06/2016 None Full Exam - General 1995 [...] dentition 05/07/2016 None Full Exam - General 1994 Ears/Nose/Throat lips/teeth/gingiva Overall: benign gingiva 05/07/2016 None [...] Codes Date URINALYSIS NONAUTO W/O SCOPE CPT-4: 40060 11/01/2018 PPPS, SUBSEQ VISIT CPT- 4: G0439 06/08/2018 URINALYSIS NONAUTO W/O SCOPE CPT-4: 77218 05/25/2018 ADMIN INFLUENZA VIRUS VAC CPT-4: G0008 05/20/2018 FLU VACC PRSV FREE INC ANTIG CPT-4: 96661 05/20/2018 DRAIN/INJECT JOINT/BURSA CPT-4: 91366 03/23/2018 TRIAMCINOLONE ACET INJ NOS CPT-4: J3301 03/23/2018 DRAIN/INJECT JOINT/BURSA CPT-4: 61324 03/12/2018 TRIAMCINOLONE ACET INJ NOS CPT-4: J3301 03/12/2018 ROCEPHIN, PER 250 MG CPT- 4: J0696 02/08/2018 ADMIN INFLUENZA VIRUS VAC CPT-4: G0008 06/18/2017 FLU VACC PRSV FREE INC ANTIG CPT-4: 78545 06/18/2017 URINALYSIS NONAUTO W/O SCOPE CPT-4: 91111 04/27/2017 URINALYSIS NONAUTO W/O SCOPE CPT-4: 72476 2017 DRAIN/INJECT JOINT/BURSA CPT-4: 60731 03/03/2017 TRIAMCINOLONE ACET INJ NOS CPT-4: J3301 03/03/2017 TRIAMCINOLONE ACET INJ NOS CPT-4: J3301 10/06/2016 ROCEPHIN, PER 250 MG CPT- 4: J0696 10/06/2016 THER/PROPH/DIAG INJ SC/IM CPT-4: 32783 10/06/2016 TRIAMCINOLONE ACET INJ NOS CPT-4: J3301 04/28/2016 URINALYSIS NONAUTO W/O SCOPE CPT-4: 05936 04/03/2016 ADMIN INFLUENZA VIRUS VAC CPT-4: G0008 07/03/2015 FLU VACC PRSV FREE INC ANTIG CPT-4: 43871 07/03/2015 Vital Signs Date Vital 12/28/2018 Blood [...] 1: 134/78 Code: 8480-6 BMI: 27.4 Code: 43891-0 Heart Rate 1: 88 bpm Height: 5'6" Weight: 170 lbs 11/01/2018 Blood Pressure 1: 132/85 Code: 8480-6 BMI: 27.3 Code: 47929-0 Height: 5'6" Weight: 169 lbs 09/30/2018 Blood Pressure 1: 142/80 Code: 8480-6 BMI: 27.3 Code: 74154-8 Heart Rate 1: 84 bpm Height: 5'6" SpO2: 96% Weight: 169 lbs 07/20/2018 Blood Pressure 1: 124/70 Code: 8480-6 Heart Rate 1: 76 bpm Height: SpO2: 95% Weight: 06/29/2018 Blood Pressure 1: 142/80 Code: 8480-6 BMI: 27.8 Code: 64280-3 Heart Rate 1: 89 bpm Height: 5'6" SpO2: 94% Weight: 172 lbs 06/08/2018 Blood Pressure 1: 144/66 Code: 8480-6 BMI: 27.9 Code: 64403-0 Heart Rate 1: 85 bpm Height: 5'6" SpO2: 97% Waist Measure (cm): 97 cm Weight: 173 lbs 05/24/2018 Blood Pressure 1: 128/72 Code: 8480-6 BMI: 27.9 Code: 85903-2 Heart Rate 1: 82 bpm Height: 5'6" SpO2: 92% Weight: 173 lbs 04/06/2018 Blood Pressure 1: 138/88 Code: 8480-6 Heart Rate 1: 86 bpm Height: SpO2: 96% Weight: 03/23/2018 Blood Pressure 1: 150/88 Code: 8480-6 Heart Rate 1: 80 bpm Height: SpO2: 96% Weight: 03/12/2018 Heart Rate 1: 90 bpm Height: Weight: 03/02/2018 Blood Pressure 1: 128/80 Code: 8480-6 BMI: 28.4 Code: 57385-6 Heart Rate 1: 83 bpm Height: 5'6" SpO2: 93% Weight: 176 lbs 02/08/2018 Blood Pressure 1: 142/80 Code: 8480-6 Heart Rate 1: 78 bpm Height: 5'6" SpO2: 94% 12/03/2017 Blood Pressure 1: 124/78 Code: 8480-6 BMI: 27.9 Code: 68742-7 Heart Rate 1: 70 bpm Height: 5'6" SpO2: 97% Weight: 173 lbs 10/27/2017 Blood Pressure 1: 126/60 Code: 8480-6 Heart Rate 1: 65 bpm Height: 5'6" SpO2: 98% Weight: 10/12/2017 Blood Pressure 1: 126/74 Code: 8480-6 BMI: 26.0 Code: 92825-0 Heart Rate 1: 80 bpm Height: 5'6" SpO2: 89% Weight: 161 lbs 10/06/2017 Blood Pressure 1: 126/70 Code: 8480-6 BMI: 27.2 Code: 59950-5 Heart Rate 1: 73 bpm Height: 5'6" SpO2: 97% Weight: 168 lbs 8 oz 08/05/2017 Blood Pressure 1: 152/78 Code: 8480-6 BMI: 27.1 Code: 83990-3 Heart Rate 1: 73 bpm Height: 5'6" SpO2: 98% Weight: 168 lbs 07/06/2017 Blood Pressure 1: 148/70 Code: 8480-6 BMI: 26.6 Code: 11165-2 Heart Rate 1: 80 bpm Height: 5'6" SpO2: 97% Weight: 165 lbs 06/18/2017 Blood Pressure 1: 132/68 Code: 8480-6 BMI: 26.8 Code: 68768-4 Heart Rate 1: 84 bpm Height: 5'6" [...] 1: 162/84 Code: 8480-6 BMI: 28.1 Code: 35543-6 Heart Rate 1: 98 bpm Height: 5'6" SpO2: 97% Weight: 174 lbs 03/03/2017 Blood Pressure 1: 154/88 Code: 8480-6 Heart Rate 1: 96 bpm Height: SpO2: 95% Weight: 01/05/2017 Blood Pressure 1: 142/78 Code: 8480-6 BMI: 28.9 Code: 39143-4 Heart Rate 1: 94 bpm Height: 5'6" SpO2: 95% Weight: 179 lbs 12/19/2016 Blood Pressure 1: 130/74 Code: 8480-6 Heart Rate 1: 91 bpm Height: 5'6" SpO2: 97% Weight: 11/13/2016 Blood Pressure 1: 152/82 Code: 8480-6 BMI: 28.4 Code: 90437-7 Heart Rate 1: 85 bpm Height: 5'6" SpO2: 96% Weight: 176 lbs 10/16/2016 Blood Pressure 1: 148/72 Code: 8480-6 BMI: 28.4 Code: 50335-3 Heart Rate 1: 90 bpm Height: 5'6" SpO2: 96% Weight: 176 lbs 10/06/2016 Blood Pressure 1: 150/80 Code: 8480-6 BMI: 28.4 Code: 14915-1 Heart Rate 1: 76 bpm Height: 5'6" SpO2: 97% Weight: 176 lbs 07/02/2016 Blood Pressure 1: 142/78 Code: 8480-6 BMI: 27.8 Code: 20125-8 Heart Rate 1: 85 bpm Height: 5'6" SpO2: 97% Weight: 172 lbs 05/21/2016 Blood Pressure 1: 166/80 Code: 8480-6 BMI: 27.9 Code: 45646-6 Heart Rate 1: 79 bpm Height: 5'6" SpO2: 98% Weight: 173 lbs 05/07/2016 Blood Pressure 1: 140/70 Code: 8480-6 BMI: 27.9 Code: 46419-5 Heart Rate 1: 82 bpm Height: 5'6" SpO2: 96% Weight: 173 lbs 04/28/2016 Blood Pressure 1: 128/86 Code: 8480-6 BMI: 27.4 Code: 69610-9 Heart Rate 1: 86 bpm Height: 5'6" SpO2: 96% Temperature: 36.1 (C) / 97.0 (F) Weight: 170 lbs 04/07/2016 Blood Pressure 1: 150/80 Code: 8480-6 Heart Rate 1: 94 bpm Height: SpO2: 95% Weight: 04/03/2016 Blood Pressure 1: 122/76 Code: 8480-6 BMI: 27.4 Code: 51259-0 Heart Rate 1: 84 bpm Height: 5'6" SpO2: 94% Weight: 170 lbs 01/31/2016 Blood Pressure 1: 124/82 Code: 8480-6 BMI: 27.8 Code: 13396-5 Heart Rate 1: 100 bpm Height: 5'6" SpO2: 97% Weight: 172 lbs 11/29/2015 Blood Pressure 1: 140/82 Code: 8480-6 Blood Pressure 1: 130/84 Code: 8480-6 BMI: 27.4 Code: 17117-6 Heart Rate 1: 97 bpm Height: 5'6" SpO2: 95% Weight: 170 lbs 10/01/2015 Blood Pressure 1: 130/80 Code: 8480-6 BMI: 27.4 Code: 30095-7 Heart Rate 1: 82 bpm Height: 5'6" SpO2: 97% Weight: 170 lbs 08/30/2015 Blood Pressure 1: 120/68 Code: 8480-6 BMI: 27.6 Code: 97541-9 Heart Rate 1: 91 bpm Height: 5'6" SpO2: 96% Weight: 171 lbs 07/31/2015 Blood Pressure 1: 180/80 Code: 8480-6 BMI: 27.4 Code: 87224-2 Heart Rate 1: 60 bpm Height: 5'6" SpO2: 94% Weight: 170 lbs 07/03/2015 Blood Pressure 1: 154/80 Code: 8480-6 BMI: 27.4 Code: 29585-3 Heart Rate 1: 98 bpm Height: 5'6" SpO2: 95% Weight: 170 lbs 04/10/2015 Blood Pressure 1: 138/72 Code: 8480-6 BMI: 27.8 Code: 49039-9 Heart Rate 1: 82 bpm Height: 5'6" SpO2: 98% Weight: 172 lbs 01/11/2015 Blood Pressure 1: 132/74 Code: 8480-6 BMI: 28.6 Code: 67799-9 Heart Rate 1: 88 bpm Height: 5'6" SpO2: 96% Weight: 177 lbs Functional Status No Functional Status data History of Present Illness Symptom Name Status Result Effective Date Notes Location in the [facility] 12/28/2018 None Location in the [facility] 12/28/2018 None Onset and Resolution resolved 12/28/2018 None Location in the [facility] 12/24/2018 None Location in the [facility] 12/24/2018 None Quality acute 12/24/2018 None Quality [...] data Encounters Encounter Performer Location Codes Date [id number] EST. PATIENT, LEVEL III Diagnosis: Encounter for follow-up examination after completed treatment for conditions other than malignant neoplasm[ICD10: Z09] Wendi Anaya MD, [facility] CPT-4: 92930 12/28/2018 77981 EST. PATIENT, LEVEL IV Diagnosis: Left lower quadrant pain[ICD10: R10.32] Diagnosis: Right lower quadrant pain[ICD10: R10.31] Wendi Anaya MD, [facility] CPT-4: 08329 12/24/2018 [id number] EST. PATIENT, LEVEL III Diagnosis: Pelvic and perineal pain[ICD10: R10.2] Wendi Anaya MD, [facility] CPT- 4: 18848 12/21/2018 66919 EST. PATIENT, LEVEL III Diagnosis: Chronic systolic (congestive) heart failure[ICD10: I50.22] Diagnosis: Essential (primary) hypertension[ICD10: I10] Diagnosis: Hypoxemia[ICD10: R09.02] Wendi Anaya MD, [facility] CPT-4: 81077 11/23/2018 ([id number]) 88485 EST. PATIENT, LEVEL III Diagnosis: Dysuria[ICD10: R30.0] Diagnosis: Other specified noninflammatory disorders of vagina[ICD10: N89.8] Mimi Anaya MD, [facility] CPT-4: 78726 11/01/2018 ([id number]) 24333 EST. PATIENT, LEVEL IV Diagnosis: Essential (primary) hypertension[ICD10: I10] Diagnosis: Atrophy of thyroid (acquired)[ICD10: E03.4] Carleen Anaya MD, [facility] CPT-4: 16395 09/30/2018 ([id number]) 17966 EST. PATIENT, LEVEL III Diagnosis: Atrophy of thyroid (acquired)[ICD10: E03.4] Diagnosis: Essential (primary) hypertension[ICD10: I10] Carleen Anaya MD, [facility] CPT-4: 04698 07/20/2018 ([id number]) 47751 EST. PATIENT, LEVEL IV Diagnosis: Essential (primary) hypertension[ICD10: I10] Diagnosis: Atrophy of thyroid (acquired)[ICD10: E03.4] Diagnosis: Other fatigue[ICD10: R53.83] Diagnosis: Other insomnia[ICD10: G47.09] Carleen Anaya MD, [facility] CPT-4: 29949 06/29/2018 ([id number]) 80649 EST. PATIENT, LEVEL IV Diagnosis: Localized edema[ICD10: R60.0] Diagnosis: Muscle weakness (generalized)[ICD10: M62.81] Diagnosis: Dysuria[ICD10: R30.0] Diagnosis: assisted (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 of anticoagulants[ICD10: Z79.01] Diagnosis: Essential (primary) hypertension[ICD10: I10] Mimi Anaya MD, [facility] CPT-4: 69232 05/24/2018 ([id number]) 58767 EST. PATIENT, LEVEL III Diagnosis: Lumbago with sciatica, right side[ICD10: M54.41] Diagnosis: Sciatica, right side[ICD10: M54.31] Carleen Anaya MD, [facility] CPT- 4: 83133 04/06/2018 ([id number]) 11508 EST. PATIENT, LEVEL III Diagnosis: Lumbago with sciatica, right side[ICD10: M54.41] Diagnosis: Sciatica, right side[ICD10: M54.31] Carleen Anaya MD, [facility] CPT- 4: 16743 03/23/2018 19061 EST. PATIENT, LEVEL III Diagnosis: Low back pain[ICD10: M54.5] Diagnosis: Sacroiliitis, not elsewhere classified[ICD10: M46.1] Wendi Anaya MD, [facility] CPT-4: 65070 03/12/2018 ([id number]) 43881 EST. PATIENT, LEVEL IV Diagnosis: Atrophy of thyroid (acquired)[ICD10: E03.4] Diagnosis: Essential (primary) hypertension[ICD10: I10] Diagnosis: Urge incontinence[ICD10: N39.41] Carleen Anaya MD, [facility] CPT-4: 14194 03/02/2018 ([id number]) 02887 EST. PATIENT, LEVEL III Diagnosis: Cellulitis of face[ICD10: L03.211] Mimi Anaya MD, [facility] CPT- 4: 98923 02/08/2018 ([id number]) 25829 EST. PATIENT, LEVEL IV Diagnosis: Atrophy of thyroid (acquired)[ICD10: E03.4] Diagnosis: Essential (primary) hypertension[ICD10: I10] Diagnosis: Urge incontinence[ICD10: N39.41] Carleen Anaya MD, [facility] CPT-4: 36373 12/03/2017 91269 EST. PATIENT, LEVEL IV Diagnosis: Essential (primary) hypertension[ICD10: I10] Diagnosis: Weakness[ICD10: R53.1] Diagnosis: Low back pain[ICD10: M54.5] Diagnosis: Other allergic rhinitis[ICD10: J30.89] Wendi Anaya MD, [facility] CPT- 4: 72944 10/27/2017 94544 EST. PATIENT, LEVEL IV Diagnosis: Pneumonia due to other specified bacteria[ICD10: J15.8] Diagnosis: Chronic systolic (congestive) heart failure[ICD10: I50.22] Wendi Anaya MD, [facility] CPT-4: 34016 10/12/2017 ([id number]) 69179 EST. PATIENT, LEVEL IV Diagnosis: Atrophy of thyroid (acquired)[ICD10: E03.4] Diagnosis: Nonscarring hair loss, unspecified[ICD10: L65.9] Diagnosis: Essential (primary) hypertension[ICD10: I10] Carleen Anaya MD, [facility] CPT-4: 51013 10/06/2017 ([id number]) 23137 EST. PATIENT, LEVEL IV Diagnosis: Atrophy of thyroid (acquired)[ICD10: E03.4] Diagnosis: Essential (primary) hypertension[ICD10: I10] Diagnosis: Localized edema[ICD10: R60.0] Carleen Anaya MD, [facility] CPT-4: 25328 08/05/2017 ([id number]) 02444 EST. PATIENT, LEVEL IV Diagnosis: Essential (primary) hypertension[ICD10: I10] Diagnosis: Weakness[ICD10: R53.1] Diagnosis: Other fecal abnormalities[ICD10: R19.5] Carleen Anaya MD, [facility] CPT-4: 01028 07/06/2017 ([id number]) 39112 EST. 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 PATIENT, LEVEL IV Diagnosis: Pain in right shoulder[ICD10: M25.511] Diagnosis: Weakness[ICD10: R53.1] Diagnosis: Other fatigue[ICD10: R53.83] Diagnosis: Other malaise[ICD10: R53.81] Wendi Anaya MD, [facility] CPT-4: 94913 05/11/2017 ([id number]) Miscellaneous no charge Diagnosis: Essential (primary) hypertension[ICD10: I10] Mimi Anaya MD, [facility] CPT-4: 07663 04/30/2017 ([id number]) 94762 EST. PATIENT, LEVEL III Diagnosis: Acute recurrent maxillary sinusitis[ICD10: J01.01] Diagnosis: Urinary tract infection, site not specified[ICD10: N39.0] Mimi Anaya MD, [facility] CPT-4: 25775 04/27/2017 ([id number]) 32367 EST. PATIENT, LEVEL IV Diagnosis: Atrophy of thyroid (acquired)[ICD10: E03.4] Diagnosis: Essential (primary) hypertension[ICD10: I10] Diagnosis: Iron deficiency[ICD10: E61.1] Diagnosis: Other specified heart block[ICD10: I45.5] Carleen Anaya MD, [facility] CPT-4: 19812 04/08/2017 86804 EST. PATIENT, LEVEL III Diagnosis: Low back pain[ICD10: M54.5] Diagnosis: Sacroiliitis, not elsewhere classified[ICD10: M46.1] Wendi Anaya MD, [facility] CPT-4: 17058 03/03/2017 ([id number]) 05615 EST. PATIENT, LEVEL IV Diagnosis: Essential (primary) hypertension[ICD10: I10] Diagnosis: Atrophy of thyroid (acquired)[ICD10: E03.4] Diagnosis: Vascular dementia without behavioral disturbance[ICD10: F01.50] Carleen Anaya MD [facility] CPT-4: 06318 01/05/2017 12734 EST. PATIENT, LEVEL III Diagnosis: Cervicalgia[ICD10: M54.2] Diagnosis: Other muscle spasm[ICD10: M62.838] Wendi Anaya MD, [facility] CPT-4: 91243 12/19/2016 ([id number]) 38381 EST. PATIENT, LEVEL III Diagnosis: Essential (primary) hypertension[ICD10: I10] Diagnosis: Gastro-esophageal reflux disease without esophagitis[ICD10: K21.9] Carleen Anaya MD [facility] CPT-4: 15815 11/13/2016 ([id number]) 83844 EST. PATIENT, LEVEL III Diagnosis: Pain in right shoulder[ICD10: M25.511] Diagnosis: Insomnia due to medical condition[ICD10: G47.01] Carleen Anaya MD [facility] CPT-4: 65754 10/16/2016 ([id number]) 14136 EST. PATIENT, LEVEL IV Diagnosis: Pneumonia due to other specified bacteria[ICD10: J15.8] Diagnosis: Pain in right shoulder[ICD10: M25.511] Diagnosis: Cough[ICD10: R05] Carleen Anaya MD, [facility] CPT-4: 79019 10/06/2016 ([id number]) 59556 EST. PATIENT, LEVEL IV Diagnosis: Essential (primary) hypertension[ICD10: I10] Diagnosis: Personal history of other specified conditions[ICD10: Z87.898] Diagnosis: Unsteadiness on feet[ICD10: R26.81] Carleen Anaya MD, [facility] CPT- 4: 78914 07/02/2016 ([id number]) 67714 EST. PATIENT, LEVEL IV Diagnosis: Dysphagia, pharyngeal phase[ICD10: R13.13] Diagnosis: Urge incontinence[ICD10: N39.41] Diagnosis: Gastro-esophageal reflux disease without esophagitis[ICD10: K21.9] Carleen Anaya MD, [facility] CPT-4: 97688 05/21/2016 ([id number]) 81290 EST. PATIENT, LEVEL III Diagnosis: Gastro-esophageal reflux disease without esophagitis[ICD10: K21.9] Carleen Anaya MD [facility] CPT-4: 49739 05/07/2016 ([id number]) 88723 EST. PATIENT, LEVEL III Diagnosis: Acute laryngopharyngitis[ICD10: J06.0] Diagnosis: Dysphagia, pharyngeal phase[ICD10: R13.13] Diagnosis: Allergic rhinitis due to pollen[ICD10: J30.1] Mimi Anaya MD, [facility] CPT-4: 30606 04/28/2016 ([id number]) Miscellaneous no charge Diagnosis: Acute laryngopharyngitis[ICD10: J06.0] Wendi Anaya MD, [facility] CPT- 4: 33468 04/10/2016 74171 EST. PATIENT, LEVEL IV Diagnosis: Cervicalgia[ICD10: M54.2] Diagnosis: Acute laryngopharyngitis[ICD10: J06.0] Diagnosis: assisted (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 of anticoagulants[ICD10: Z79.01] Diagnosis: Other cystitis without hematuria[ICD10: N30.80] Wendi Anaya MD, [facility] CPT-4: 27014 04/07/2016 ([id number]) 12982 EST. PATIENT, LEVEL IV Diagnosis: Essential (primary) hypertension[ICD10: I10] Diagnosis: Hypothyroidism, unspecified[ICD10: E03.9] Diagnosis: Other fatigue[ICD10: R53.83] Diagnosis: Urge incontinence[ICD10: N39.41] Mimi Anaya MD, [facility] CPT- 4: 92132 04/03/2016 ([id number]) 12451 EST. PATIENT, LEVEL IV Diagnosis: Essential (primary) hypertension[ICD10: I10] Diagnosis: Pain in right ankle and joints of right foot[ICD10: M25.571] Diagnosis: Dizziness and giddiness[ICD10: R42] Diagnosis: Tinnitus, bilateral[ICD10: H93.13] Mimi Anaya MD, [facility] CPT- 4: 12406 01/31/2016 ([id number]) 00574 EST. PATIENT, LEVEL IV Diagnosis: Essential (primary) hypertension[ICD10: I10] Diagnosis: Otalgia, right ear[ICD10: H92.01] Diagnosis: Allergic rhinitis due to pollen[ICD10: J30.1] Diagnosis: Hypothyroidism, unspecified[ICD10: E03.9] Mimi Anaya MD, [facility] CPT-4: 42704 11/29/2015 ([id number]) 75022 EST. PATIENT, LEVEL IV Diagnosis: Essential (primary) hypertension[ICD10: I10] Diagnosis: Urge incontinence[ICD10: N39.41] Diagnosis: Unspecified dementia without behavioral disturbance[ICD10: F03.90] Mimi Anaya MD, [facility] CPT-4: 08756 10/01/2015 ([id number]) 34631 EST. PATIENT, LEVEL IV Diagnosis: Essential (primary) hypertension[ICD10: I10] Diagnosis: Hypothyroidism, unspecified[ICD10: E03.9] Diagnosis: Unspecified dementia without behavioral disturbance[ICD10: F03.90] Diagnosis: Urge incontinence[ICD10: N39.41] Mimi Anaya MD, [facility] CPT- 4: 35884 08/30/2015 ([id number]) 64250 EST. PATIENT, LEVEL IV Diagnosis: Essential (primary) hypertension[ICD10: I10] Diagnosis: Hypothyroidism, unspecified[ICD10: E03.9] Diagnosis: Hyperlipidemia, unspecified[ICD10: E78.5] Carleen Anaya MD, [facility] CPT-4: 82695 07/31/2015 ([id number]) 27321 EST. PATIENT, LEVEL IV Diagnosis: Essential (primary) hypertension[ICD10: I10] Diagnosis: 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 (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 of anticoagulants[ICD10: Z79.01] Diagnosis: Dizziness and giddiness[ICD10: R42] [facility] CPT- 4: 87294 07/03/2015 ([id number]) 12969 EST. PATIENT, LEVEL IV Diagnosis: ESSENTIAL HYPERTENSION[ICD9: 401.9] Diagnosis: MACULAR DEGENERATION[ICD9: 362.50] Diagnosis: Peripheral vascular disease[ICD9: 443.9] Diagnosis: Neuropathy[ICD9: 355.9] [facility] CPT-4: 64204 04/10/2015 ([id number]) OFFICE/OUTPATIENT VISIT NEW Diagnosis: ESSENTIAL HYPERTENSION[ICD9: 401.9] Diagnosis: HYPOTHYROIDISM[ICD9: 244.9] Diagnosis: URGE INCONTINENCE[ICD9: 788.31] Diagnosis: Constipation - functional[ICD9: 564.09] [facility] CPT-4: 72092 01/11/2015 Plan of Care Planned Activity Notes Codes Status Date Visit Plan: abdominal pain - improved - pt is to finish abx as directed - pt is to notify clinic if symptoms do not continue to improve, if they return, or with any changes, questions, or concerns. 12/28/2018 Appointment: Wendi Uriostegui WPtel: [address] [place], [place] [phone] (30 min) Complex 12/28/2018 Patient Education: Patient Medication Summary Completed 12/28/2018 Visit Plan: Low abdominal pain, possible Diverticulitis - rx for antibiotic sent to pt's pharmacy - pt advised to avoid seeds, nuts, popcorn, or any other food which has been proven to upset the pt's stomach. 12/24/2018 Appointment: Wendi Uriostegui WPtel: [address] [place], [place] [phone] (30 min) Complex 12/24/2018 Patient Education: Patient Medication Summary Completed 12/24/2018 Visit Plan: UTI - pt with positive urinalysis - culture sent if appropriate. Antibiotic electronically prescribed to pt's pharmacy of choice. Pt to call if symptoms do not improve. 12/21/2018 Appointment: Wendi Uriostegui WPtel: [address] [place], [place] [phone] (30 min) Complex 12/21/2018 Patient Education: Patient [...] O2. 11/23/2018 Appointment: Wendi Uriostegui WPtel: [facility] [facility] ([facility] min) Complex 11/23/2018 Patient Education: Patient Medication Summary Completed 11/23/2018 Visit Plan: Possible vaginal bleeding -patient has a history of total hysterectomy -no obvious bleeding today upon inspection -will culture urine -monitor symptoms and call if bleeding persists or worsens. 11/01/2018 Appointment: M[facility] Espinosa [phone] (30 min) Complex 11/01/2018 Patient [...] of control. 09/30/2018 Appointment: [phone] [place] (15 min) Moderate 09/30/2018 Patient Education: Patient Medication Summary Completed 09/30/2018 Appointment: Héctor Carleen WPtel: [phone] [place] (15 min) Moderate 09/22/2018 Visit Plan: Hypothyroidism [...] at home. 07/20/2018 Appointment: Car[facility] An[facility]: [phone] [place] (15 min) Moderate 07/20/2018 Patient Education: Patient [...] this time. 06/29/2018 Appointment: Carleen Anaya [facility]el: [phone] [place] (15 min) Moderate 06/29/2018 Patient Education: Patient [...] care surrogate. 06/08/2018 Appointment: Mimi Espinosa WPtel: [address] [place] [address] - Annual Wellness Visit 06/08/2018 Patient Education: [...] edema. Weakness-fatigue- check labs Dysuria- check UA TZF-lmruszvixn-ga changes in medications 05/24/2018 Appointment: Mimi Espinosa WPtel: [phone] (15 min) Moderate 05/24/2018 Patient Education: Patient Medication Summary Completed 05/24/2018 Appointment: Injection 05/20/2018 Patient Education: Patient Medication Summary Completed 05/20/2018 Visit Plan: Sciatica- pt to continue with aleve twice daily and cyclobenzaprine x 1 week. Pt is to call if the symptoms do not improve or if they worsen. referral to [facility] physical therapy. 04/06/2018 Appointment: Carleen Anaya WPtel: [phone] [facility] (15 min) Moderate 04/06/2018 Patient Education: Patient Medication Summary Completed 04/06/2018 Visit Plan: Sciatica- pt to start on aleve twice daily and cyclobenzaprine x 1 week. Pt is to call if the symptoms do not improve or if they worsen. [id number] - kenalog 03/23/2018 Visit Plan: Sciatica- pt to start on aleve twice daily and cyclobenzaprine x 1 week. Pt is to call if the symptoms do not improve or if they worsen. 03/23/2018 Appointment: Carleen Anaya WPtel: [phone] [facility] (15 min) Moderate 03/23/2018 Patient Education: Patient [...] of injection. 03/12/2018 Appointment: Wendi Uriostegui WPtel: [phone] [facility] (30 min) Complex 03/12/2018 Patient Education: Patient [...] symptoms - continue with myrbetric 03/02/2018 Appointment: [place] Carleen WPtel: [facility]5 [facility] (15 min) Moderate 03/02/2018 Patient Education: Patient Medication Summary Completed 03/02/2018 Appointment: (10 min) Simple 02/09/2018 Visit Plan: Cellulitis - start oral antibiotics as directed, return to clinic as directed, call for acute change in symptoms, worsening redness, warmth, discharge. 02/08/2018 Appointment: Mimi Espinosa WPtel: [phone] [phone] [place] (15 min) Moderate 02/08/2018 Patient Education: [...] 50mg daily. 12/03/2017 Appointment: Carleen Anaya WPtel: [facility]3 [facility] (15 min) Moderate 12/03/2017 Patient Education: Patient [...] allergy spray. 10/27/2017 Appointment: Wendi Uriostegui WPtel: [phone] [facility] (15 min) Moderate 10/27/2017 Patient Education: Patient Medication Summary Completed 10/27/2017 Visit Plan: Pneumonia - Pt has been diagnosed with pneumonia by physical exam. A chest xray has been ordered as have antibiotics. The pt is aware of the diagnosis and the need for acute treatment of this illness. 10/12/2017 Appointment: Wendi Uriostegui WPtel: [phone] [facility] (15 min) Moderate 10/12/2017 Patient Education: Patient [...] Carleen Anaya WPtel: [facility]5 [facility] (15 min) Moderate 10/06/2017 Patient Education: Patient [...] Carleen Anaya WPtel: [facility]5 [facility]6[address] (15 min) Moderate 08/05/2017 Patient Education: Patient Medication Summary Completed 08/05/2017 Appointment: Carleen Anaya WPtel: [facility]8 [facility]66[facility] (15 min) Moderate 07/14/2017 Visit Plan: Hypertension [...] Carleen Anaya WPtel: [facility]2 [facility]6[address] (15 min) Moderate 07/06/2017 Patient Education: Patient [...] shot today 06/18/2017 Appointment: Carleen Anaya WPtel: [phone] [facility] (15 min) Moderate 06/18/2017 Patient Education: Patient Medication Summary Completed 06/18/2017 Appointment: Nurse Visit 05/12/2017 Care Plan: X-RAY EXAM OF SHOULDER LOINC : 05459-8 Pending 05/12/2017 Visit Plan: Weakness, fatigue, malaise - Discussed with Dr. Anaya - pt sent for IV fluids, will check labs and UA - will treat as indicated - pt is to keep her appointment with her metal smelter for her ECHO and Carotid US. Pt is to follow up with her oncologist. Right shoulder pain after fall - will send for X-ray - The pt is to use prn antiinflammatories to manage acute pain. The patient is to call the office if the pain is worsening or does not improve. 05/11/2017 Appointment: Wendi Uriostegui [facility]Ptel: [phone] [place] (30 min) Complex 05/11/2017 Patient Education: [...] of plan. 04/27/2017 Appointment: Mimi Espinosa [facility]Ptel: [phone] [place] (15 min) Moderate 04/27/2017 Patient Education: [...] heart beat - recommended evaluation by her Director Of Social Services - Dr. Butler - I attempted a phone call to the office of Dr. Butler, I had to leave a message on the answering machine. If i don't hear back from Dr. Butler's office, we will need to do a Holter monitor on patient. 04/08/2017 Appointment: Carleen Anaya [facility]el: [phone] (15 min) Moderate 04/08/2017 Patient Education: Patient Medication Summary Completed 04/08/2017 Care Plan: Referral Order SNOMED-CT : [id number] Pending 04/08/2017 Visit Plan: UTI - pt [...] of injection. 03/03/2017 Appointment: Wendi Uriostegui [facility]Ptel: [phone] ([facility] min) Complex 03/03/2017 Patient [...] of control. 01/05/2017 Appointment: Carleen Anaya WPtel: [phone] [facility] (15 min) Moderate 01/05/2017 Patient Education: Patient Medication Summary Completed 01/05/2017 Visit Plan: Neck Pain- pt to start with aspercreme or biofreeze to neck three times daily and start neck exercises daily. Will send RX - The patient is to call the office if the pain is worsening or does not improve. 12/19/2016 Appointment: Wendi Uriostegui WPtel: [phone] [facility] (30 min) Complex 12/19/2016 Patient Education: Patient [...] improving. 11/13/2016 Appointment: Carleen Anaya WPtel: [phone] [facility] (15 min) Moderate 11/13/2016 Patient Education: Patient Medication Summary Completed 11/13/2016 Visit Plan: Insomnia -extended release melatonin - you can take up to 10mg of melatonin sleepy time tea - - use warm milk in the tea. Right shoulder - pt to continue with therapy, anti-inflammatory 10/16/2016 Appointment: Carleen Anaya WPtel: [phone] [facility] (15 min) Moderate 10/16/2016 Patient Education: [...] pt. 10/06/2016 Appointment: Carleen Anaya WPtel: [phone] [facility]6[address] (15 min) Moderate 10/06/2016 Patient Education: Patient Medication Summary Completed 10/06/2016 Care Plan[facility] 50150[facility]1 Pending 10/06/2016 Appointment: Carleen Anaya WPtel: [phone] [facility]6676[facility] (30 min) Complex 10/01/2016 Referral: [facility] W[facility]: [phone] [facility]66[facility] Patient informed. Completed 07/08/2016 Visit Plan: Hypertension [...] discussed therapy. 07/02/2016 Appointment: Carleen Anaya WPtel: [facility]5 [facility] (15 min) Moderate 07/02/2016 Patient Education: Patient Medication Summary Completed 07/02/2016 Care Plan: Referral Order SNOMED-CT : [id number] Pending 07/02/2016 Visit Plan: Hypertension - well [...] planning on getting a flu shot at [facility] and she is due for another pneumovax- last pneumovax was in 2008 - so she can have pneumovax now and the prevnar in 2017 05/21/2016 Appointment: Carleen Anaya WPtel: [facility]0 [address] (15 min) Moderate 05/21/2016 Patient Education: Patient Medication Summary Completed 05/21/2016 Referral: Medardo Del Real [address] Referral Completed 05/12/2016 Visit Plan: Esophageal [...] Carleen Anaya WPtel: [facility] [address] (15 min) Moderate 05/07/2016 Patient Education: Patient Medication Summary Completed 05/07/2016 Appointment: Mimi Espinosa WPtel: [facility]4 [place] [phone] (30 min) Complex 05/01/2016 Visit Plan: Allergies [...] Kenalog injection today in the office Sore vueqgf-hpngjbphi-iciks dexilant-refer to Dr Del Real for evaluation 04/28/2016 Appointment: Mimi Espinosa WPtel: [phone] [phone] (30 min) Complex 04/28/2016 Patient Education: Patient [...] switched. 04/07/2016 Appointment: Wendi Uriostegui WPtel: [phone] [facility] (30 min) Complex 04/07/2016 Patient Education: Patient [...] atigue-check labs including UA-culture if positive Urge netobyaatubx-mdoxtijbx-nhxmk UA with C&S 04/03/2016 Appointment: Mimi Espinosa WPtel: [phone] [phone] [place] (30 min) Complex 04/03/2016 Patient Education: Patient Medication Summary Completed 04/03/2016 Visit Plan: Hypertension - well controlled - continue with current medications, continue with no added salt diet. Pt has been encouraged to exercise daily. The pt has been advised to call the office if there are any acute concerns about change in blood pressure readings at home. Pyeywkgkq-csbkgihk-nlrefbau MRI brain Right ankle ymdr-adirazx-sjef right ankle- plan to refer to physical therapy if appropriate 01/31/2016 Appointment: Mimi Espinosa WPtel: [address] [place], [place] [address] (30 min) Complex 01/31/2016 Patient Education: Patient [...] to medications. 07/31/2015 Appointment: Carleen Anaya [facility]Ptel: [phone] (15 min) Moderate 07/31/2015 Patient Education: Patient Medication Summary Completed 07/31/2015 Patient Education: Hypertension Completed 07/31/2015 Care Plan: Referral Order SNOMED-CT : [id number] Ordered 07/31/2015 Visit Plan: Hypertension - uncontrolled [...] on Nortryptyline 07/03/2015 Appointment: Carleen Anaya [facility]Ptel: [phone] (15 min) Moderate 07/03/2015 Patient Education: Patient [...] Completed 01/11/2015 [phone] [place] Referral Appointment Requested Referral: External, Ordering Provider Referral Appointment Requested Referral: External, Ordering Provider Referral Relationship Referral: Medardo Del Real [facility] [place] Referral Appointment Requested Instructions Comment . Weakness, fatigue - UA negative - [...] spray in the nasal steroid allergy spray. finish flagyl as directed avoid nuts, seeds, [...] pain occurs at the site of injection. Salon Pas with lidocaine patch - over [...] diarrhea. Patient verbalized understanding of plan. . Hypertension - well controlled - continue [...] due to thyroid - check labs today. . Hypertension - well controlled - continue [...] Arm pain - improved with voltaren gel. . Hypertension - well controlled - continue [...] will not do so at this time. extended release melatonin - you can take up to 10mg of melatonin sleepy time tea - - use warm milk in the tea. . Insomnia -extended release melatonin - you can take up to 10mg of melatonin sleepy time tea - - use warm milk in the tea. Right shoulder - pt to continue with therapy, anti-inflammatory Discuss with Dr. Bowman to switch warfarin [...] feet elevated at night to reduce swelling. DEXILANT 60MG DAILY . Allergies - chronic [...] Kenalog injection today in the office Sore lyazao-cmetsxcts-wmkxy dexilant-refer to Dr Del Real for evaluation . Hypertension - uncontrolled - the patient's [...] to assure normal liver response to medications. . Low back pain- The pt is [...] occurs at the site of injection. . UTI - pt with positive urinalysis [...] daily x 3 days and prn. . Neck Pain- pt to start with [...] UTI - culture back, medication switched. . Cellulitis - start oral antibiotics as directed, return to clinic as directed, call for acute change in symptoms, worsening redness, warmth, discharge. . Low abdominal pain, possible Diverticulitis - rx for antibiotic sent to pt's pharmacy - pt advised to avoid seeds, nuts, popcorn, or any other food which has been proven to upset the pt's stomach. . Hypothyroidism - pt with chronic hypothyroidism, [...] heart beat - recommended evaluation by her Director Of Social Services - Dr. Butler - I attempted a phone call to the office of Dr. Butler, I had to leave a message on the answering machine. If i don't hear back from Dr. Butler's office, we will need to do a Holter monitor on patient. voltaren gel - apply two grams onto [...] gel Gait unsteadiness - discussed therapy. . Sciatica- pt to start on aleve twice daily and cyclobenzaprine x 1 week. Pt is to call if the symptoms do not improve or if they worsen. [id number] - andrew BLISSIQ-SAMPLES 1 DAILY . Hypertension - well controlled [...] loss-doing well with namenda-continue 10mg twice daily Power Pudding: equal parts of prune juice, [...] treatment plan and call if symptoms worsen. stay off of fosamax x 6 more [...] planning on getting a flu shot at [facility] and she is due for another pneumovax- last pneumovax was in 2008 - so she can have pneumovax now and the prevnar in 2017 Flonase 1 spray each nare daily . [...] to assure normal liver response to medications. add z-pack, continue cefdinir - take a [...] need for acute treatment of this illness. CHECK LABS CHECK URINE . Hypertension - [...] Fatigue-check labs including UA-culture if positive Urge yuivxgnoleqm-nyikbfrnt-kqnxv UA with C&S . Possible vaginal bleeding -patient has a history of total hysterectomy -no obvious bleeding today upon inspection -will culture urine - monitor symptoms and call if bleeding persists or worsens. . Hypertension - well controlled - continue [...] use both night time and portable O2. repeat INR in 2 weeks repeat a [...] protein. high dose flu shot today . Hypothyroidism - pt with chronic hypothyroidism, [...] in blood pressure readings at home. . Pneumonia - Pt has been diagnosed [...] edema. Weakness-fatigue- check labs Dysuria- check UA FWO-lkwactbkhs-vs changes in medications . Hypertension - well controlled - continue with current medications, continue with no added salt diet. Pt has been encouraged to exercise daily. The pt has been advised to call the office if there are any acute concerns about change in blood pressure readings at home. Frrkvytyn-ujhwxiir-etjremoj MRI brain Right ankle azyq-feuzehq-wvzc right ankle-plan to refer to physical therapy [...] call if symptoms do not improve. . Sciatica- pt to continue with aleve twice daily and cyclobenzaprine x 1 week. Pt is to call if the symptoms do not improve or if they worsen. referral to [facility] physical therapy. . Hypertension - [...] based on previous levels of control. . Hypertension - well controlled - continue [...] do not improve or if they worsen. Stop Oxybutynin chloride ER. Start Vesicare once [...] is to keep her appointment with her metal smelter for her ECHO and Carotid US. Pt is to follow up with her oncologist. Right shoulder pain after fall - will send for X-ray - The pt is to use prn antiinflammatories to manage acute pain. The patient is to call the office if the pain is worsening or does not improve. HOLD fosamax x 1 month start on [...] carafate 1 gram four times daily . Hypertension - well controlled [...]
--- OUTSIDE RECORDS SUMMARY | 2019-01-01 11:14 | XMS REPORT | CCD ---
Author Author [facility] Organization [facility] Address [address] [place] [address] Phone Care Team Providers Care Acetylene Operator Name Role Phone PP Unavailable CCM Unavailable Summary Purpose Interface Exchange Insurance Providers Payer name Policy type / Coverage type Covered green party ID Effective Begin Date Effective End Date WPS Medicare Part B Medicare Part B [id number] Unknown Unknown [facility] Medicare Part B [id number] Unknown Unknown Family history Father Diagnosis Age At Onset Cancer Unknown Arthritis Unknown Mother Diagnosis Age At Onset Breast cancer Unknown Arthritis Unknown Social History Social History Element Codes Description Effective Dates Alcohol history Unknown occasionally drinks alcohol 06/08/2018 Frequency of drinks SNOMED CT: 454686785 Drinks rarely 06/08/2018 Marital status Unknown 01/11/2015 Number of children Unknown 3 01/11/2015 Employment Unknown Retired 01/11/[address]: 3729738 Quit over 10 years ago 1950 01/11/[address]: 763991119 Never drinks alcohol 01/11/2015 Allergies, Adverse Reactions, Alerts Substance Reaction Codes Entered Date Inactivated Date Status * OTHER REACTION - SEE ANSWER BOX vancogein red Unknown 01/11/2015 No Inactive Date Active CODEINE RxNorm: 2670 01/11/2015 No Inactive Date Active demerol RxNorm: 113334 08/30/2015 No Inactive Date Active hydrocodone Unknown 01/11/2015 No Inactive Date Active MORPHINE AND RELATED Unknown 01/11/2015 No Inactive Date Active Past Medical History Illness Codes Condition Status Onset Date Resolved Date Diarrhea, unspecified ICD- 9: 787.91 ICD-10: R19.7 Active 07/03/2017 Unknown Left lower quadrant pain ICD-9: 789.04 ICD-10: R10.32 Active 12/24/2018 Unknown Right lower quadrant pain ICD-9: 789.03 ICD-10: R10.31 Active 12/24/2018 Unknown Dysuria ICD-9: 788.1 ICD-10: R30.0 Active [...] ICD-9: 782.3 ICD-10: R60.0 Active 08/05/2017 Unknown residential (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 of anticoagulants ICD-9: V58.61 [...] Problems Condition Codes Effective Dates Condition Status Diarrhea, unspecified ICD- 9: 787.91 ICD-10: R19.7 07/03/2017 Active Left lower quadrant pain ICD-9: 789.04 ICD-10: R10.32 12/24/2018 Active Right lower quadrant pain ICD-9: 789.03 ICD-10: R10.31 12/24/2018 Active Dysuria ICD-9: 788.1 ICD-10: R30.0 2017 [...] edema ICD-9: 782.3 ICD-10: R60.0 08/05/2017 Active 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 ICD-9: V58.61 [...] Fill Instructions Flagyl 500 mg tablet RxNorm: 145144 1 Tablet(s) PO TID 12/24/2018 12/30/2018 Active Keflex 500 mg capsule RxNorm: 602169 1 Capsule(s) PO TID 12/21/2018 12/30/2018 Active Pyridium 200 mg tablet RxNorm: 2400648 1 Tablet(s) PO TID as needed for pain 12/21/2018 12/22/2018 Inactive Synthroid 175 mcg tablet RxNorm: 629900 1 Tablet(s) PO daily 09/30/2018 02/26/2019 Active this is an update on the dose - she is to take this daily - hold off on the 200mcg pills for now Synthroid 175 mcg tablet RxNorm: 380498 1 Tablet(s) PO 5 times weekly 09/30/2018 09/29/2018 Inactive alternate with 175mcg order losartan 25 mg tablet RxNorm: 989765 TAKE 1 TABLET BY MOUTH ONCE DAILY 08/30/2018 No Stop Date Active Myrbetriq 50 mg tablet,extended release RxNorm: 7350967 1 Tablet(s) PO daily 08/24/2018 12/21/2018 Inactive Synthroid 175 mcg tablet RxNorm: 298494 1 Tablet(s) PO 4 times a week Thu07/20/2018 09/29/2018 Inactive alternate with 175mcg order Synthroid 200 mcg tablet RxNorm: 197185 Tablet(s) TAKE ONE TABLET BY MOUTH ON THURSDAY, Thursday07/20/2018 09/29/2018 Inactive pantoprazole 40 mg tablet,delayed release RxNorm: 801349 TAKE ONE TABLET BY MOUTH TWICE DAILY 07/19/2018 No Stop Date Active furosemide 40 mg tablet RxNorm: 396000 1 Tablet(s) PO 2 times weekly with song roberto per dr butler 07/13/2018 No Stop Date Active Synthroid 200 mcg tablet RxNorm: 501160 TAKE ONE TABLET BY MOUTH ON THURSDAY, THURSDAY, AND Thursday07/13/2018 07/19/2018 Inactive Vitamin D3 400 unit capsule RxNorm: 581241 1 Capsule(s) PO daily 06/17/2018 No Stop Date Active Aspirin Low Dose 81 mg tablet,delayed release RxNorm: 449996 1 Tablet(s) PO BIW on Thursday and Thursday06/17/2018 No Stop Date Active biotin 1,000 mcg chewable tablet RxNorm: 3641932 1 Tablet(s) PO daily 06/17/2018 No Stop Date Active Vitamin B-12 500 mcg tablet RxNorm: 772392 1 Tablet(s) PO daily 06/17/2018 No Stop Date Active Colace 100 mg capsule RxNorm: 9718859 1 Capsule(s) PO QHS 06/08/2018 No Stop Date Active Coumadin 3 mg tablet RxNorm: 973069 1 Tablet(s) PO daily x5 days and 2 mg x2 days -Managed by Dr. Bowman 06/08/2018 No Stop Date Active Keflex 500 mg capsule RxNorm: 618844 1 Capsule(s) PO TID 05/25/2018 05/31/2018 Inactive metoprolol succinate ER 100 mg tablet,extended release 24 hr RxNorm: 560999 Tablet(s) TAKE ONE TABLET BY MOUTH ONCE DAILY 05/19/2018 No Stop Date Active Coumadin 3 mg tablet RxNorm: 654500 1 Tablet(s) PO daily -Managed by Dr. Bowman 05/04/2018 06/07/2018 Inactive Synthroid 175 mcg tablet RxNorm: 144545 TAKE 1 TABLET BY MOUTH ONCE DAILY 04/06/2018 06/07/2018 Inactive cyclobenzaprine 5 mg tablet RxNorm: 374115 1/2 Tablet(s) PO TID 04/06/2018 04/15/2018 Inactive Synthroid 200 mcg tablet RxNorm: 342512 1 Tablet(s) PO TIW [facility] 04/05/2018 07/12/2018 Inactive brand name only- Alternate with 175mcg dose schedule Synthroid 175 mcg tablet RxNorm: 188862 1 Tablet(s) PO 4 times a week Thu04/05/2018 07/19/2018 Inactive alternate with 175mcg order cyclobenzaprine 5 mg tablet RxNorm: 379079 1/2 Tablet(s) PO TID 03/23/2018 04/01/2018 Inactive tramadol 50 mg tablet RxNorm: 246649 1 Tablet(s) PO TID as needed 03/17/2018 No Stop Date Active Kenalog 40 mg/mL suspension for injection RxNorm: 0299394 2 Milliliter(s) Inj 03/12/2018 03/12/2018 Inactive prednisone 20 mg tablet RxNorm: 165573 2 Tablet(s) PO daily 03/11/2018 03/10/2018 Inactive prednisone 20 mg tablet RxNorm: 803612 2 Tablet(s) PO daily 03/11/2018 03/15/2018 Inactive losartan 25 mg tablet RxNorm: 027685 TAKE ONE TABLET BY MOUTH ONCE DAILY 02/16/2018 08/29/2018 Inactive doxycycline hyclate 100 mg tablet RxNorm: 3711220 1 Tablet(s) PO BID 02/08/2018 02/14/2018 Inactive ceftriaxone 500 mg solution for injection RxNorm: 9043890 Inj 02/08/2018 02/08/2018 Inactive dapsone 25 mg tablet RxNorm: 019482 2 Tablet(s) PO daily 02/08/2018 02/12/2018 Inactive metoprolol succinate ER 100 mg tablet,extended release 24 hr RxNorm: 532587 TAKE ONE TABLET BY MOUTH ONCE DAILY 01/05/2018 05/18/2018 Inactive Synthroid 175 mcg tablet RxNorm: 941372 1 Tablet(s) PO daily 01/01/2018 03/31/2018 Inactive Synthroid 175 mcg tablet RxNorm: 899915 1 Tablet(s) PO daily 01/01/2018 12/31/2017 Inactive Myrbetriq 50 mg tablet,extended release RxNorm: 7127975 1 Tablet(s) PO daily 12/03/2017 01/01/2018 Inactive Zithromax Z-Oliver 250 mg tablet RxNorm: 731634 1 Tablet(s) PO UD 10/12/2017 10/16/2017 Inactive Tessalon Perles 100 mg capsule RxNorm: 810107 2 Capsule(s) PO TID as needed 10/12/2017 10/16/2017 Inactive prednisone 20 mg tablet RxNorm: 995056 2 Tablet(s) PO daily 10/12/2017 10/16/2017 Inactive cefdinir 300 mg capsule RxNorm: 659403 1 Capsule(s) PO BID 10/08/2017 10/07/2017 Inactive Synthroid 150 mcg tablet RxNorm: 856717 1 Tablet(s) PO daily in morning, except 1/2 Tablet PO Wed, Sat, take 30 minutes before meal 10/08/2017 04/04/2018 Inactive brand name only cefdinir 300 mg capsule RxNorm: 869795 1 Capsule(s) PO BID 10/08/2017 10/14/2017 Inactive Synthroid 150 mcg tablet RxNorm: 352906 1 Tablet(s) PO daily in morning, take 30 minutes before meal 10/06/2017 10/07/2017 Inactive brand name only cefdinir 300 mg capsule RxNorm: 372986 1 Capsule(s) PO BID 08/24/2017 08/30/2017 Inactive Zithromax Z-Oliver 250 mg tablet RxNorm: 504165 1 Tablet(s) PO UD 08/20/2017 08/19/2017 Inactive Zithromax Z-Oliver 250 mg tablet RxNorm: 867924 1 Tablet(s) PO UD 08/20/2017 08/24/2017 Inactive Synthroid 150 mcg tablet RxNorm: 371291 1 Tablet(s) PO daily in morning, take 30 minutes before meal 08/05/2017 08/04/2017 Inactive Synthroid 150 mcg tablet RxNorm: 327102 1 Tablet(s) PO daily in morning, take 30 minutes before meal 08/05/2017 10/05/2017 Inactive Coumadin 3 mg tablet RxNorm: 175125 1 Tablet(s) PO Thursday, , , and Thu- Managed by Dr. Bowman -Managed by Dr. Bowman 08/05/2017 05/03/2018 Inactive pantoprazole 40 mg tablet,delayed release RxNorm: 641791 1 Tablet(s) PO BID 07/08/2017 07/02/2018 Inactive pantoprazole 40 mg tablet,delayed release RxNorm: 837827 1 Tablet(s) PO BID 07/08/2017 07/07/2017 Inactive metoprolol succinate ER 100 mg tablet,extended release 24 hr RxNorm: 780979 TAKE ONE TABLET BY MOUTH ONCE DAILY 07/08/2017 01/04/2018 Inactive Coumadin 3 mg tablet RxNorm: 156080 1 Tablet(s) PO QPM -Managed by Dr. Bowman 07/06/2017 08/04/2017 Inactive Coumadin 3 mg tablet RxNorm: 767885 1 Tablet(s) PO QPM at 6:00pm Managed by Dr Bowman 1/2 pill on thursday and thursday, full pill other days 06/18/2017 07/05/2017 Inactive Voltaren 1 % topical gel RxNorm: 171537 2 TOP QID 06/18/2017 10/15/2017 Inactive Micro-K 10 10 mEq capsule,extended release RxNorm: 605182 1 Capsule(s) PO daily 05/08/2017 12/02/2017 Inactive Synthroid 137 mcg tablet RxNorm: 022437 1 Tablet(s) PO QAM 05/08/2017 08/04/2017 Inactive Dose increased 04/14/17 pravastatin 10 mg tablet RxNorm: 141604 1 Tablet(s) PO daily TAKE ONE TABLET BY MOUTH ONCE DAILY 05/08/2017 12/02/2017 Inactive losartan 25 mg tablet RxNorm: 386430 1 Tablet(s) PO daily TAKE ONE TABLET BY MOUTH ONCE DAILY 05/08/2017 06/07/2018 Inactive Namenda 10 mg tablet RxNorm: 738777 TAKE ONE TABLET BY MOUTH TWICE DAILY 05/07/2017 12/02/2017 Inactive Keflex 500 mg capsule RxNorm: 897276 1 Capsule(s) PO TID 04/27/2017 05/03/2017 Inactive Synthroid 137 mcg tablet RxNorm: 408630 1 Tablet(s) PO QAM 04/14/2017 04/13/2017 Inactive Vitamin D2 50,000 unit capsule RxNorm: 284483 1 Capsule(s) PO QW 04/14/2017 12/02/2017 Inactive Synthroid 137 mcg tablet RxNorm: 374525 1 Tablet(s) PO QAM 04/14/2017 05/07/2017 Inactive losartan 25 mg tablet RxNorm: 641359 TAKE ONE TABLET BY MOUTH ONCE DAILY 03/23/2017 05/07/2017 Inactive Synthroid 125 mcg tablet RxNorm: 355863 TAKE ONE TABLET BY MOUTH ONCE DAILY 03/12/2017 04/12/2017 Inactive ciprofloxacin 500 mg tablet RxNorm: 998307 1 Tablet(s) PO BID 2017 03/13/2017 Inactive prednisone 20 mg tablet RxNorm: 894000 2 Tablet(s) PO daily 03/03/2017 03/07/2017 Inactive tramadol 50 mg tablet RxNorm: 190387 1/2 Tablet(s) PO TID as needed 03/03/2017 12/02/2017 Inactive pravastatin 10 mg tablet RxNorm: 563300 TAKE ONE TABLET BY MOUTH ONCE DAILY 01/19/2017 05/07/2017 Inactive nortriptyline 10 mg capsule RxNorm: 174467 TAKE ONE CAPSULE BY MOUTH ONCE DAILY IN THE EVENING 01/14/2017 12/02/2017 Inactive Voltaren 1 % topical gel RxNorm: 203432 TOP QID 12/22/2016 02/19/2017 Inactive Voltaren 1 % topical gel RxNorm: 080503 TOP QID 12/22/2016 12/21/2016 Inactive prednisone 20 mg tablet RxNorm: 636261 2 Tablet(s) PO daily 12/19/2016 12/23/2016 Inactive cyclobenzaprine 5 mg tablet RxNorm: 075928 1/2 Tablet(s) PO BID as needed 12/19/2016 12/23/2016 Inactive Flector 1.3 % transdermal 12 hour patch RxNorm: 921571 1 Patch TOP every 12 hours as needed 12/19/2016 12/02/2017 Inactive losartan 25 mg tablet RxNorm: 892431 1 Tablet(s) PO daily TAKE ONE TABLET BY MOUTH ONCE DAILY 11/13/2016 03/22/2017 Inactive Namenda 10 mg tablet RxNorm: 468502 TAKE ONE TABLET BY MOUTH TWICE DAILY 10/28/2016 04/25/2017 Inactive nortriptyline 10 mg capsule RxNorm: 359142 TAKE ONE CAPSULE BY MOUTH ONCE DAILY IN THE EVENING 10/13/2016 01/10/2017 Inactive ceftriaxone 500 mg solution for injection RxNorm: 1572293 Inj 10/06/2016 10/06/2016 Inactive cefdinir 300 mg capsule RxNorm: 050395 1 Capsule(s) PO BID 10/06/2016 10/12/2016 Inactive prednisone 20 mg tablet RxNorm: 166959 2 Tablet(s) PO daily 10/06/2016 10/08/2016 Inactive ProAir RespiClick 90 mcg/actuation breath activated RxNorm: 4827228 2 INH TID x 3 days then one inhale tid x 3 days then prn shortness of breath 10/06/2016 11/04/2016 Inactive Kenalog 40 mg/mL suspension for injection RxNorm: 9269557 1 Milliliter(s) Inj 10/06/2016 10/06/2016 Inactive Myrbetriq 50 mg tablet,extended release RxNorm: 2814399 1 Tablet(s) PO daily 09/11/2016 11/12/2016 Inactive Namenda 10 mg tablet RxNorm: 322602 TAKE ONE TABLET BY MOUTH TWICE DAILY 07/25/2016 10/22/2016 Inactive hydrochlorothiazide 25 mg tablet RxNorm: 668245 1 Tablet(s) PO daily 07/25/2016 12/02/2017 Inactive Synthroid 125 mcg tablet RxNorm: 030951 TAKE ONE TABLET BY MOUTH ONCE DAILY 07/14/2016 03/10/2017 Inactive losartan 25 mg tablet RxNorm: 108810 TAKE ONE TABLET BY MOUTH ONCE DAILY 07/07/2016 11/12/2016 Inactive metoprolol succinate ER 100 mg tablet,extended release 24 hr RxNorm: 048810 1 Tablet(s) PO daily 06/16/2016 06/10/2017 Inactive nortriptyline 10 mg capsule RxNorm: 599688 Capsule(s) TAKE ONE CAPSULE BY MOUTH ONCE DAILY IN THE EVENING 06/09/2016 10/06/2016 Inactive Myrbetriq 50 mg tablet,extended release RxNorm: 9783872 1 Tablet(s) PO daily 05/21/2016 09/10/2016 Inactive doxycycline hyclate 100 mg tablet RxNorm: 645612 1 Tablet(s) PO BID 05/07/2016 05/13/2016 Inactive Carafate 100 mg/mL oral suspension RxNorm: 519957 10 Milliliter(s) PO QID 05/07/2016 12/02/2017 Inactive Kenalog 40 mg/mL suspension for injection RxNorm: 4525454 Milliliter(s) Inj 04/28/2016 04/28/2016 Inactive losartan 25 mg tablet RxNorm: 320879 TAKE ONE TABLET BY MOUTH ONCE DAILY 04/08/2016 07/06/2016 Inactive ciprofloxacin 500 mg tablet RxNorm: 784790 1 Tablet(s) PO BID 04/07/2016 04/13/2016 Inactive cyclobenzaprine 5 mg tablet RxNorm: 389267 1 Tablet(s) PO TID 04/07/2016 04/16/2016 Inactive Keflex 500 mg capsule RxNorm: 755691 1 Capsule(s) PO TID 04/03/2016 04/02/2016 Inactive Keflex 500 mg capsule RxNorm: 336843 1 Capsule(s) PO TID 04/03/2016 04/09/2016 Inactive losartan 25 mg tablet RxNorm: 382479 TAKE ONE TABLET BY MOUTH ONCE DAILY 03/06/2016 04/07/2016 Inactive nortriptyline 10 mg capsule RxNorm: 833536 TAKE ONE CAPSULE BY MOUTH ONCE DAILY IN THE EVENING 03/06/2016 06/03/2016 Inactive pravastatin 10 mg tablet RxNorm: 908306 TAKE ONE TABLET BY MOUTH ONCE DAILY 02/04/2016 01/18/2017 Inactive warfarin 4 mg tablet RxNorm: 543801 Tablet(s) PO q d except 5mg on tue 01/31/2016 06/17/2017 Inactive Myrbetriq 50 mg tablet,extended release RxNorm: 5090838 1 Tablet(s) PO daily 01/17/2016 05/15/2016 Inactive Namenda 10 mg tablet RxNorm: 314023 1 Tablet(s) PO BID 01/01/2016 06/28/2016 Inactive Myrbetriq 50 mg tablet,extended release RxNorm: 6658639 1 Tablet(s) PO daily 12/20/2015 12/20/2015 Inactive Synthroid 125 mcg tablet RxNorm: 833228 1 Tablet(s) PO daily 11/14/2015 07/10/2016 Inactive nortriptyline 10 mg capsule RxNorm: 199573 TAKE ONE CAPSULE BY MOUTH ONCE DAILY IN THE EVENING 11/05/2015 03/03/2016 Inactive Myrbetriq 50 mg tablet,extended release RxNorm: 2218445 1 Tablet(s) PO daily 10/01/2015 12/19/2015 Inactive Namenda 10 mg tablet RxNorm: 115475 1 Tablet(s) PO BID 08/30/2015 12/31/2015 Inactive Vesicare 10 mg tablet RxNorm: 119247 1 Tablet(s) PO daily 08/30/2015 09/30/2015 Inactive warfarin 4 mg tablet RxNorm: 082832 Tablet(s) PO 08/30/2015 01/30/2016 Inactive Synthroid 125 mcg tablet RxNorm: 745312 1 Tablet(s) PO daily 08/02/2015 11/13/2015 Inactive Synthroid 125 mcg tablet RxNorm: 947177 Tablet(s) PO 08/01/2015 08/01/2015 Inactive losartan 25 mg tablet RxNorm: 170644 1 Tablet(s) PO daily 07/31/2015 02/25/2016 Inactive pravastatin 10 mg tablet RxNorm: 124455 1 Tablet(s) PO daily 07/23/2015 01/18/2016 Inactive hydrochlorothiazide 25 mg tablet RxNorm: 851065 1 Tablet(s) PO daily 07/19/2015 07/12/2016 Inactive nortriptyline 10 mg capsule RxNorm: 113405 1 Capsule(s) PO QPM 07/03/2015 10/30/2015 Inactive metoprolol succinate ER 100 mg tablet,extended release 24 hr RxNorm: 357141 1 Tablet(s) PO daily 06/06/2015 05/30/2016 Inactive pravastatin 10 mg tablet RxNorm: 864473 1 Tablet(s) PO daily 01/22/2015 07/20/2015 Inactive aspirin 81 mg capsule,delayed release RxNorm: 007654 1 Capsule(s) PO daily 01/11/2015 02/09/2015 Inactive Fosamax 5 mg tablet RxNorm: 623296 1 Tablet(s) QW 01/11/2015 12/02/2017 Inactive oxybutynin chloride ER 10 mg tablet,extended release 24 hr RxNorm: 930902 1 Tablet(s) PO daily 01/11/2015 08/29/2015 Inactive Fosamax 70 mg tablet RxNorm: 806433 1 Tablet(s) PO QW No Start Date Active Claritin oral RxNorm: 71289 oral No Start Date Active Centrum oral RxNorm: oral No Start Date Active Calcium 600 + D(3) oral RxNorm: 883321 oral No Start Date Active Coumadin 4 mg tablet RxNorm: 710149 1 Tablet(s) PO daily on ,, No Start Date 06/07/2018 Inactive Vitamin D3 oral RxNorm: oral No Start Date 06/16/2018 Inactive pravastatin 10 mg tablet RxNorm: 982995 1 Tablet(s) PO daily No Start Date 01/21/2015 Inactive Aspirin Low Dose 81 mg tablet,delayed release RxNorm: 392065 1 Tablet(s) PO BIW on Thursday and Thursday No Start Date 06/16/2018 Inactive Tylenol PM oral RxNorm: 490768 oral No Start Date 04/07/2017 Inactive Vitamin D2 oral RxNorm: 4018 oral No Start Date 06/08/2018 Inactive Vitamin D2 50,000 unit capsule RxNorm: 274694 1 Capsule(s) PO QW No Start Date 04/13/2017 Inactive tramadol 50 mg tablet RxNorm: 968970 1 Tablet(s) PO TID as needed No Start Date 03/16/2018 Inactive Colace 100 mg capsule RxNorm: 5925127 Capsule(s) PO No Start Date 06/07/2018 Inactive furosemide 40 mg tablet RxNorm: 991005 1 Tablet(s) PO daily as needed No Start Date 07/12/2018 Inactive biotin oral RxNorm: oral No Start Date 06/16/2018 Inactive Micro-K 10 10 mEq capsule,extended release RxNorm: 649368 1 Capsule(s) PO daily No Start Date 05/07/2017 Inactive Synthroid 100 mcg tablet RxNorm: 076079 Tablet(s) PO No Start Date 07/31/2015 Inactive Vitamin B-12 oral RxNorm: oral No Start Date 06/16/2018 Inactive PreserVision AREDS 2 oral RxNorm: 8869511 oral No Start Date 06/07/2018 Inactive hydrochlorothiazide 25 mg tablet RxNorm: 798852 1 Tablet(s) PO daily No Start Date 07/18/2015 Inactive warfarin 2 mg tablet RxNorm: 038420 Tablet(s) PO No Start Date 08/29/2015 Inactive metoprolol succinate ER 100 mg tablet,extended release 24 hr RxNorm: 455225 1 Tablet(s) PO daily No Start Date 06/05/2015 Inactive warfarin 3 mg tablet RxNorm: 102867 Tablet(s) PO No Start Date 08/29/2015 Inactive Coumadin 3 mg tablet RxNorm: 874161 1 Tablet(s) PO QPM at 6:00pm Managed by Dr Bowman No Start Date 06/17/2017 Inactive Myrbetriq 50 mg tablet,extended release RxNorm: 6815627 1 Tablet(s) PO daily No Start Date 08/23/2018 Inactive Medication Administered Medication Codes Instructions Start Date Status Kenalog 40 mg/mL suspension for injection RxNorm: 9150846 2Milliliter 03/12/2018 No longer Active ceftriaxone 500 mg solution for injection RxNorm: 7574254 02/08/2018 No longer Active Kenalog 40 mg/mL suspension for injection RxNorm: 0272372 1Milliliter 10/06/2016 No longer Active ceftriaxone 500 mg solution for injection RxNorm: 8928935 10/06/2016 No longer Active Kenalog 40 mg/mL suspension for injection RxNorm: 5555121 Milliliter 04/28/2016 No longer Active Immunizations Vaccine Codes Date Status SHINGARIX CVX: 121 09/07/2018 completed SHINGARIX CVX: 121 06/08/2018 completed Influenza CVX: 141 05/20/2018 completed Influenza CVX: 141 06/18/2017 completed Influenza CVX: 141 06/10/2016 completed Pneumococcal CVX: 133 05/29/2016 completed Influenza CVX: 141 07/03/2015 completed Assessments Condition Codes Effective Dates Left lower quadrant pain ICD-10: R10.32 ICD-9: [...] Localized edema ICD-10: R60.0 ICD-9: 782.3 05/24/2018 residential (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 of anticoagulants ICD-10: Z79.01 ICD-9: [...] For Visit Effective Dates Notes abdominal pain 12/24/2018 abdominal pain 12/21/2018 medication [...] NO Growth Day 2 05/27/2018 Comp Metabolic Pvc454 NA 142 mEq/L 05/24/2018 Comp Metabolic Uop221 K 4.0 mEq/L 05/24/2018 Comp Metabolic Gwi011 CL 104 mEq/L 05/24/2018 Comp Metabolic Ctq375 CO2 30.0 mEq/L 05/24/2018 Comp Metabolic Sen761 ANION GAP 12 05/24/2018 Comp Metabolic Pmx554 GLUCOSE 94 mg/dL 05/24/2018 Comp Metabolic Pan619 Creat 0.6 mg/dL 05/24/2018 Comp Metabolic Cnl637 eGFR 97 ml/min/1.73m2 05/24/2018 Comp Metabolic Cex252 BUN 12 mg/dL 05/24/2018 Comp Metabolic Pca317 B/C Ratio 19.4 Ratio 05/24/2018 Comp Metabolic Qgi387 CALCIUM 8.8 mg/dL 05/24/2018 Comp Metabolic Cgh903 ALK PHOS 135 U/L 05/24/2018 Comp Metabolic Eka371 AST(SGOT) 18 U/L 05/24/2018 Comp Metabolic Azc501 ALT(SGPT) 16 U/L 05/24/2018 Comp Metabolic Qvt515 BILI T 0.4 mg/dL 05/24/2018 Comp Metabolic Mlf458 ALBUMIN 3.9 g/dL 05/24/2018 Comp Metabolic Dna523 TPRO 6.0 g/dL 05/24/2018 Comp Metabolic Nyu171 GLOB 2.1 g/dL 05/24/2018 Comp Metabolic Qpg459 A/G Ratio 1.8 Ratio 05/24/2018 Comp Metabolic Nje047 Osmo 283 mOsmo 05/24/2018 Pt Bpr8315 PT 28.2 seconds 05/24/2018 Pt Ado2960 INR 2.6 05/24/2018 Pt Xzu5672 Low Intensity - 1.5-2.0 05/24/2018 Pt Lfc0052 Mod intensity - 2.0-3.0 05/24/2018 Pt Xaq9627 Hi intensity - 3.0-4.0 05/24/2018 Cbc With [...] 29.7 pg 05/24/2018 Cbc With Differential Ord2 Lyman% 7.0 % 05/24/2018 Cbc With Differential Ord2 [...] 1.54 K/ul 05/24/2018 Cbc With Differential Ord2 Lyman ABS# 0.5 K/ul 05/24/2018 Cbc With Differential Ord2 Eos ABS# 0.4 K/ul 05/24/2018 Cbc With Differential Ord2 Baso ABS# 0.0 K/ul 05/24/2018 Tsh Ord6 TSH (3rd IS) 3.19 uIU/mL 10/06/2017 Free T4 Ndm709 FREE T4 1.64 ng/dL 10/06/2017 Free T4 Wcb761 FREE T4 1.03 ng/dL 08/05/2017 Tsh Ord6 [...] Ord30 C/HDL 3.7 Ratio 04/09/2017 Free T4 Ocz125 FREE T4 0.97 ng/dL 04/09/2017 Tibc Ord40 Iron 36 ug/dl 04/09/2017 Tibc Ord40 UIBC 281 ug/dL 04/09/2017 Tibc Ord40 TIBC 317 ug/dL 04/09/2017 Tibc Ord40 Fe-%Sat 11.4 % 04/09/2017 Comp Metabolic Wsg956 NA 136 mEq/L 04/09/2017 Comp Metabolic Idx531 K 3.9 mEq/L 04/09/2017 Comp Metabolic Ytt557 CL 98 mEq/L 04/09/2017 Comp Metabolic Bbb381 CO2 28.0 mEq/L 04/09/2017 Comp Metabolic Hos758 ANION GAP 14 04/09/2017 Comp Metabolic Pps185 GLUCOSE 90 mg/dL 04/09/2017 Comp Metabolic Srw515 Creat 0.6 mg/dL 04/09/2017 Comp Metabolic Akp709 eGFR 102 ml/min/1.73m2 04/09/2017 Comp Metabolic Byy194 BUN 9 mg/dL 04/09/2017 Comp Metabolic Sml928 B/C Ratio 15.3 Ratio 04/09/2017 Comp Metabolic Zjj829 CALCIUM 8.8 mg/dL 04/09/2017 Comp Metabolic Qhb291 ALK PHOS 102 U/L 04/09/2017 Comp Metabolic Ekl199 AST(SGOT) 18 U/L 04/09/2017 Comp Metabolic Zsf451 ALT(SGPT) 14 U/L 04/09/2017 Comp Metabolic Pyx335 BILI T 0.4 mg/dL 04/09/2017 Comp Metabolic Kqb638 ALBUMIN 3.9 g/dL 04/09/2017 Comp Metabolic Hhu742 TPRO 6.3 g/dL 04/09/2017 Comp Metabolic Kbv199 GLOB 2.4 g/dL 04/09/2017 Comp Metabolic Pdz963 A/G Ratio 1.7 Ratio 04/09/2017 Comp Metabolic Kbj520 Osmo 270 mOsmo 04/09/2017 Vitamin D 25 Oh Vle6586 VITAMIN D, 25 HYDROXY 34.31 ng/mL 04/09/2017 [...] 28.9 pg 04/09/2017 Cbc With Differential Ord2 Lyman% 8.8 % 04/09/2017 Cbc With Differential Ord2 [...] 1.22 K/ul 04/09/2017 Cbc With Differential Ord2 Lyman ABS# 0.7 K/ul 04/09/2017 Cbc With Differential Ord2 Eos ABS# 0.1 K/ul 04/09/2017 Cbc With Differential Ord2 Baso ABS# 0.0 K/ul 04/09/2017 Urine Culture Ucult Complete >100,000 col/ml aerobic growth sent to ref lab 03/05/2017 Pt [id number] PT 24.2 seconds 04/14/2016 Pt Ytw0129 INR 2.3 04/14/2016 Pt Eec1117 Low Intensity - 1.5-2.0 04/14/2016 Pt Cpr0126 Mod intensity - 2.0-3.0 04/14/2016 Pt Jpd0717 Hi intensity - 3.0-4.0 04/14/2016 Pt Ykj1220 PT 31.3 seconds 04/10/2016 Pt Yss9888 INR 3.3 04/10/2016 Pt Rlu0533 Low Intensity - 1.5-2.0 04/10/2016 Pt Jmj1548 Mod intensity - 2.0-3.0 04/10/2016 Pt Yqm7942 Hi intensity - 3.0-4.0 04/10/2016 C RAP A SC [id number] Strep A Negative 04/10/2016 Urine Culture Ucult Complete >100,000 col/ml aerobic growth sent to ref lab 04/04/2016 Comp Metabolic Mwq315 NA 136 mEq/L 04/03/2016 Comp Metabolic Hrd939 K 3.9 mEq/L 04/03/2016 Comp Metabolic Jmi927 CL 99 mEq/L 04/03/2016 Comp Metabolic Han295 CO2 32.0 mEq/L 04/03/2016 Comp Metabolic Qxd012 ANION GAP 9 04/03/2016 Comp Metabolic Uaw000 GLUCOSE 88 mg/dL 04/03/2016 Comp Metabolic Ppd414 Creat 0.6 mg/dL 04/03/2016 Comp Metabolic Vsu093 eGFR 93 ml/min/1.73m2 04/03/2016 Comp Metabolic Rtt241 BUN 15 mg/dL 04/03/2016 Comp Metabolic Cbd289 B/C Ratio 23.4 Ratio 04/03/2016 Comp Metabolic Gtl042 CALCIUM 8.7 mg/dL 04/03/2016 Comp Metabolic Ymt992 ALK PHOS 100 U/L 04/03/2016 Comp Metabolic Ood398 AST(SGOT) 28 U/L 04/03/2016 Comp Metabolic Ucu679 ALT(SGPT) 39 U/L 04/03/2016 Comp Metabolic Rjd047 BILI T 0.5 mg/dL 04/03/2016 Comp Metabolic Jrg707 ALBUMIN 4.1 g/dL 04/03/2016 Comp Metabolic Tyg251 TPRO 6.6 g/dL 04/03/2016 Comp Metabolic Tho608 GLOB 2.5 g/dL 04/03/2016 Comp Metabolic Mws189 A/G Ratio 1.7 Ratio 04/03/2016 Comp Metabolic Ytl976 Osmo 272 mOsmo 04/03/2016 Cbc With Differential [...] 29.0 pg 04/03/2016 Cbc With Differential Ord2 Lyman% 11.3 % 04/03/2016 Cbc With Differential Ord2 [...] 1.15 K/ul 04/03/2016 Cbc With Differential Ord2 Lyman ABS# 0.8 K/ul 04/03/2016 Cbc With Differential Ord2 Eos ABS# 0.2 K/ul 04/03/2016 Cbc With Differential Ord2 Baso ABS# 0.0 K/ul 04/03/2016 Tsh Ord6 hTSH II 3.06 uIU/mL 04/03/2016 Free T4 Uue941 FREE T4 0.99 ng/dL 04/03/2016 Free T4 Byy950 FREE T4 0.81 ng/dL 07/31/2015 Comp Metabolic Qbr638 NA 136 mEq/L 07/31/2015 Comp Metabolic Zpc239 K 3.8 mEq/L 07/31/2015 Comp Metabolic Eon963 CL 97 mEq/L 07/31/2015 Comp Metabolic Wpw065 CO2 29.0 mEq/L 07/31/2015 Comp Metabolic Smi019 ANION GAP 14 07/31/2015 Comp Metabolic Nnm309 GLUCOSE 90 mg/dL 07/31/2015 Comp Metabolic Koi056 Creat 0.7 mg/dL 07/31/2015 Comp Metabolic Bse416 eGFR 80 ml/min/1.73m2 07/31/2015 Comp Metabolic Gpl573 BUN 8 mg/dL 07/31/2015 Comp Metabolic Qyn404 B/C Ratio 11.0 Ratio 07/31/2015 Comp Metabolic Fje758 CALCIUM 8.9 mg/dL 07/31/2015 Comp Metabolic Yej662 ALK PHOS 102 U/L 07/31/2015 Comp Metabolic Llb022 AST(SGOT) 22 U/L 07/31/2015 Comp Metabolic Xmr697 ALT(SGPT) 14 U/L 07/31/2015 Comp Metabolic Fbo371 BILI T 0.5 mg/dL 07/31/2015 Comp Metabolic Ksv401 ALBUMIN 4.4 g/dL 07/31/2015 Comp Metabolic Dpc825 TPRO 6.7 g/dL 07/31/2015 Comp Metabolic Rob703 GLOB 2.3 g/dL 07/31/2015 Comp Metabolic Xtn981 A/G Ratio 1.9 Ratio 07/31/2015 Comp Metabolic Gid309 Osmo 270 mOsmo 07/31/2015 Tsh Ord6 hTSH [...] Lipid Ord30 C/HDL 4.8 Ratio 07/31/2015 Pt Wtx4568 PT 31.9 seconds 07/03/2015 Pt Rgd6171 INR 3.2 07/03/2015 Pt Ctp2316 Low Intensity - 1.5-2.0 07/03/2015 Pt Wfk5176 Mod intensity - 2.0-3.0 07/03/2015 Pt Pgp6000 Hi intensity - 3.0-4.0 07/03/2015 Review of Systems System Result Effective Dates Constitutional recent illness 12/24/2018 Constitutional No chills [...] clear 12/21/2018 None Full Exam - General 1995 Eyes conjunctiva/eyelids Overall: cornea clear 12/21/2018 None Full Exam - General 1994 Eyes conjunctiva/eyelids Overall: eyelids normal 12/21/2018 None Full Exam - General 1995 Ears/Nose/Throat lips/teeth/gingiva Overall: benign lips 12/21/2018 None Full Exam - General 1995 Ears/Nose/Throat [...] lips 11/23/2018 None Full Exam - General 1995 [...] lips 10/12/2017 None Full Exam - General 1995 Ears/Nose/Throat lips/teeth/gingiva Overall: normal dentition 10/12/2017 None [...] accomodation 04/27/2017 None Full Exam - General 1994 Ears/Nose/Throat external ear Overall: normal appearance 04/27/2017 None Full Exam - General 1994 Ears/Nose/Throat external ear Overall: no masses 04/27/2017 None Full Exam - General 1994 Ears/Nose/Throat external ear Overall: normal mastoids 04/27/2017 None Full Exam - General 1994 Ears/Nose/Throat external nose Overall: benign appearance 04/27/2017 None Full Exam - General 1994 Ears/Nose/Throat external nose Overall: no masses 04/27/2017 [...] General 1994 Ears/Nose/Throat lips/teeth/gingiva Overall: benign lips 11/13/2016 None [...] General 1994 Ears/Nose/Throat lips/teeth/gingiva Overall: benign lips 10/16/2016 None [...] 1994 Ears/Nose/Throat oral cavity/pharynx/larynx Overall: no masses 10/16/2016 None Full Exam - General 1994 Respiratory auscultation Overall: breath sounds clear bilaterally 10/16/2016 None Full Exam - General 1995 Respiratory respiratory effort/rhythm Overall: no retractions 10/16/2016 [...] Codes Date URINALYSIS NONAUTO W/O SCOPE CPT-4: 52469 11/01/2018 PPPS, SUBSEQ VISIT CPT- 4: G0439 06/08/2018 URINALYSIS NONAUTO W/O SCOPE CPT-4: 19075 05/25/2018 ADMIN INFLUENZA VIRUS VAC CPT-4: G0008 05/20/2018 FLU VACC PRSV FREE INC ANTIG CPT-4: 77049 05/20/2018 DRAIN/INJECT JOINT/BURSA CPT-4: 16230 03/23/2018 TRIAMCINOLONE ACET INJ NOS CPT-4: J3301 03/23/2018 DRAIN/INJECT JOINT/BURSA CPT-4: 96269 03/12/2018 TRIAMCINOLONE ACET INJ NOS CPT-4: J3301 03/12/2018 ROCEPHIN, PER 250 MG CPT- 4: J0696 02/08/2018 ADMIN INFLUENZA VIRUS VAC CPT-4: G0008 06/18/2017 FLU VACC PRSV FREE INC ANTIG CPT-4: 00964 06/18/2017 URINALYSIS NONAUTO W/O SCOPE CPT-4: 23632 04/27/2017 URINALYSIS NONAUTO W/O SCOPE CPT-4: 41270 2017 DRAIN/INJECT JOINT/BURSA CPT-4: 67797 03/03/2017 TRIAMCINOLONE ACET INJ NOS CPT-4: J3301 03/03/2017 TRIAMCINOLONE ACET INJ NOS CPT-4: J3301 10/06/2016 ROCEPHIN, PER 250 MG CPT- 4: J0696 10/06/2016 THER/PROPH/DIAG INJ SC/IM CPT-4: 83836 10/06/2016 TRIAMCINOLONE ACET INJ NOS CPT-4: J3301 04/28/2016 URINALYSIS NONAUTO W/O SCOPE CPT-4: 55350 04/03/2016 ADMIN INFLUENZA VIRUS VAC CPT-4: G0008 07/03/2015 FLU VACC PRSV FREE INC ANTIG CPT-4: 19780 07/03/2015 Vital Signs Date Vital 12/24/2018 Blood Pressure 1: 138/78 Code: 8480-6 Heart Rate 1: 84 bpm Height: SpO2: 96% Weight: 12/21/2018 Blood Pressure 1: 162/82 Code: 8480-6 Heart Rate 1: 80 bpm Height: SpO2: 94% Weight: 11/23/2018 Blood Pressure 1: 134/78 Code: 8480-6 BMI: 27.4 Code: 65722-8 Heart Rate 1: 88 bpm Height: 5'6" Weight: 170 lbs 11/01/2018 Blood Pressure 1: 132/85 Code: 8480-6 BMI: 27.3 Code: 23406-5 Height: 5'6" Weight: 169 lbs 09/30/2018 Blood Pressure 1: 142/80 Code: 8480-6 BMI: 27.3 Code: 88297-0 Heart Rate 1: 84 bpm Height: 5'6" SpO2: 96% Weight: 169 lbs 07/20/2018 Blood Pressure 1: 124/70 Code: 8480-6 Heart Rate 1: 76 bpm Height: SpO2: 95% Weight: 06/29/2018 Blood Pressure 1: 142/80 Code: 8480-6 BMI: 27.8 Code: 23531-4 Heart Rate 1: 89 bpm Height: 5'6" SpO2: 94% Weight: 172 lbs 06/08/2018 Blood Pressure 1: 144/66 Code: 8480-6 BMI: 27.9 Code: 81467-9 Heart Rate 1: 85 bpm Height: 5'6" SpO2: 97% Waist Measure (cm): 97 cm Weight: 173 lbs 05/24/2018 Blood Pressure 1: 128/72 Code: 8480-6 BMI: 27.9 Code: 53927-1 Heart Rate 1: 82 bpm Height: 5'6" SpO2: 92% Weight: 173 lbs 04/06/2018 Blood Pressure 1: 138/88 Code: 8480-6 Heart Rate 1: 86 bpm Height: SpO2: 96% Weight: 03/23/2018 Blood Pressure 1: 150/88 Code: 8480-6 Heart Rate 1: 80 bpm Height: SpO2: 96% Weight: 03/12/2018 Heart Rate 1: 90 bpm Height: Weight: 03/02/2018 Blood Pressure 1: 128/80 Code: 8480-6 BMI: 28.4 Code: 34278-1 Heart Rate 1: 83 bpm Height: 5'6" SpO2: 93% Weight: 176 lbs 02/08/2018 Blood Pressure 1: 142/80 Code: 8480-6 Heart Rate 1: 78 bpm Height: 5'6" SpO2: 94% 12/03/2017 Blood Pressure 1: 124/78 Code: 8480-6 BMI: 27.9 Code: 95218-4 Heart Rate 1: 70 bpm Height: 5'6" SpO2: 97% Weight: 173 lbs 10/27/2017 Blood Pressure 1: 126/60 Code: 8480-6 Heart Rate 1: 65 bpm Height: 5'6" SpO2: 98% Weight: 10/12/2017 Blood Pressure 1: 126/74 Code: 8480-6 BMI: 26.0 Code: 35123-9 Heart Rate 1: 80 bpm Height: 5'6" SpO2: 89% Weight: 161 lbs 10/06/2017 Blood Pressure 1: 126/70 Code: 8480-6 BMI: 27.2 Code: 00442-7 Heart Rate 1: 73 bpm Height: 5'6" SpO2: 97% Weight: 168 lbs 8 oz 08/05/2017 Blood Pressure 1: 152/78 Code: 8480-6 BMI: 27.1 Code: 36001-9 Heart Rate 1: 73 bpm Height: 5'6" SpO2: 98% Weight: 168 lbs 07/06/2017 Blood Pressure 1: 148/70 Code: 8480-6 BMI: 26.6 Code: 36499-1 Heart Rate 1: 80 bpm Height: 5'6" SpO2: 97% Weight: 165 lbs 06/18/2017 Blood Pressure 1: 132/68 Code: 8480-6 BMI: 26.8 Code: 98487-0 Heart Rate 1: 84 bpm Height: 5'6" [...] 1: 162/84 Code: 8480-6 BMI: 28.1 Code: 10808-2 Heart Rate 1: 98 bpm Height: 5'6" SpO2: 97% Weight: 174 lbs 03/03/2017 Blood Pressure 1: 154/88 Code: 8480-6 Heart Rate 1: 96 bpm Height: SpO2: 95% Weight: 01/05/2017 Blood Pressure 1: 142/78 Code: 8480-6 BMI: 28.9 Code: 17656-7 Heart Rate 1: 94 bpm Height: 5'6" SpO2: 95% Weight: 179 lbs 12/19/2016 Blood Pressure 1: 130/74 Code: 8480-6 Heart Rate 1: 91 bpm Height: 5'6" SpO2: 97% Weight: 11/13/2016 Blood Pressure 1: 152/82 Code: 8480-6 BMI: 28.4 Code: 81896-0 Heart Rate 1: 85 bpm Height: 5'6" SpO2: 96% Weight: 176 lbs 10/16/2016 Blood Pressure 1: 148/72 Code: 8480-6 BMI: 28.4 Code: 21860-1 Heart Rate 1: 90 bpm Height: 5'6" SpO2: 96% Weight: 176 lbs 10/06/2016 Blood Pressure 1: 150/80 Code: 8480-6 BMI: 28.4 Code: 42069-3 Heart Rate 1: 76 bpm Height: 5'6" SpO2: 97% Weight: 176 lbs 07/02/2016 Blood Pressure 1: 142/78 Code: 8480-6 BMI: 27.8 Code: 81535-3 Heart Rate 1: 85 bpm Height: 5'6" SpO2: 97% Weight: 172 lbs 05/21/2016 Blood Pressure 1: 166/80 Code: 8480-6 BMI: 27.9 Code: 96478-9 Heart Rate 1: 79 bpm Height: 5'6" SpO2: 98% Weight: 173 lbs 05/07/2016 Blood Pressure 1: 140/70 Code: 8480-6 BMI: 27.9 Code: 44321-0 Heart Rate 1: 82 bpm Height: 5'6" SpO2: 96% Weight: 173 lbs 04/28/2016 Blood Pressure 1: 128/86 Code: 8480-6 BMI: 27.4 Code: 74890-6 Heart Rate 1: 86 bpm Height: 5'6" SpO2: 96% Temperature: 36.1 (C) / 97.0 (F) Weight: 170 lbs 04/07/2016 Blood Pressure 1: 150/80 Code: 8480-6 Heart Rate 1: 94 bpm Height: SpO2: 95% Weight: 04/03/2016 Blood Pressure 1: 122/76 Code: 8480-6 BMI: 27.4 Code: 35033-8 Heart Rate 1: 84 bpm Height: 5'6" SpO2: 94% Weight: 170 lbs 01/31/2016 Blood Pressure 1: 124/82 Code: 8480-6 BMI: 27.8 Code: 17117-5 Heart Rate 1: 100 bpm Height: 5'6" SpO2: 97% Weight: 172 lbs 11/29/2015 Blood Pressure 1: 140/82 Code: 8480-6 Blood Pressure 1: 130/84 Code: 8480-6 BMI: 27.4 Code: 89002-5 Heart Rate 1: 97 bpm Height: 5'6" SpO2: 95% Weight: 170 lbs 10/01/2015 Blood Pressure 1: 130/80 Code: 8480-6 BMI: 27.4 Code: 03805-1 Heart Rate 1: 82 bpm Height: 5'6" SpO2: 97% Weight: 170 lbs 08/30/2015 Blood Pressure 1: 120/68 Code: 8480-6 BMI: 27.6 Code: 54798-9 Heart Rate 1: 91 bpm Height: 5'6" SpO2: 96% Weight: 171 lbs 07/31/2015 Blood Pressure 1: 180/80 Code: 8480-6 BMI: 27.4 Code: 44458-8 Heart Rate 1: 60 bpm Height: 5'6" SpO2: 94% Weight: 170 lbs 07/03/2015 Blood Pressure 1: 154/80 Code: 8480-6 BMI: 27.4 Code: 63230-6 Heart Rate 1: 98 bpm Height: 5'6" SpO2: 95% Weight: 170 lbs 04/10/2015 Blood Pressure 1: 138/72 Code: 8480-6 BMI: 27.8 Code: 03055-2 Heart Rate 1: 82 bpm Height: 5'6" SpO2: 98% Weight: 172 lbs 01/11/2015 Blood Pressure 1: 132/74 Code: 8480-6 BMI: 28.6 Code: 09046-7 Heart Rate 1: 88 bpm Height: 5'6" SpO2: 96% Weight: 177 lbs Functional Status No Functional Status data History of Present Illness Symptom Name Status Result Effective Date Notes Location in the LLQ 12/24/2018 None Location in the RLQ 12/24/2018 None Quality acute 12/24/2018 None Quality [...] Directive data Encounters Encounter Performer Location Codes EST. PATIENT, LEVEL IV Diagnosis: Left lower quadrant pain[ICD10: R10.32] Diagnosis: Right lower quadrant pain[ICD10: R10.31] [facility] CPT-4: 43950 12/24/2018 17401 EST. PATIENT, LEVEL III Diagnosis: Pelvic and perineal pain[ICD10: R10.2] [facility] CPT- 4: 96174 12/21/2018 22620 EST. PATIENT, LEVEL III Diagnosis: Chronic systolic (congestive) heart failure[ICD10: I50.22] Diagnosis: Essential (primary) hypertension[ICD10: I10] Diagnosis: Hypoxemia[ICD10: R09.02] Wendi Anaya MD, [facility] CPT-4: 66834 11/23/2018 ([id number]) 81863 EST. PATIENT, LEVEL III Diagnosis: Dysuria[ICD10: R30.0] Diagnosis: Other specified noninflammatory disorders of vagina[ICD10: N89.8] Mimi Anaya MD, [facility] CPT-4: 32768 11/01/2018 ([id number]) 84496 EST. PATIENT, LEVEL IV Diagnosis: Essential (primary) hypertension[ICD10: I10] Diagnosis: Atrophy of thyroid (acquired)[ICD10: E03.4] Carleen Anaya MD, [facility] CPT-4: 86605 09/30/2018 ([id number]) 97452 EST. PATIENT, LEVEL III Diagnosis: Atrophy of thyroid (acquired)[ICD10: E03.4] Diagnosis: Essential (primary) hypertension[ICD10: I10] Carleen Anaya MD, [facility] CPT-4: 72046 07/20/2018 ([id number]) 32020 EST. PATIENT, LEVEL IV Diagnosis: Essential (primary) hypertension[ICD10: I10] Diagnosis: Atrophy of thyroid (acquired)[ICD10: E03.4] Diagnosis: Other fatigue[ICD10: R53.83] Diagnosis: Other insomnia[ICD10: G47.09] Carleen Anaya MD, [facility] CPT-4: 42799 06/29/2018 ([id number]) 92078 EST. PATIENT, LEVEL IV Diagnosis: Localized edema[ICD10: R60.0] Diagnosis: Muscle weakness (generalized)[ICD10: M62.81] Diagnosis: Dysuria[ICD10: R30.0] Diagnosis: residential (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 of anticoagulants[ICD10: Z79.01] Diagnosis: Essential (primary) hypertension[ICD10: I10] Mimi Anaya MD, [facility] CPT-4: 92769 05/24/2018 ([id number]) 19333 EST. PATIENT, LEVEL III Diagnosis: Lumbago with sciatica, right side[ICD10: M54.41] Diagnosis: Sciatica, right side[ICD10: M54.31] Carleen Anaya MD, [facility] CPT- 4: 85613 04/06/2018 ([id number]) 16326 EST. PATIENT, LEVEL III Diagnosis: Lumbago with sciatica, right side[ICD10: M54.41] Diagnosis: Sciatica, right side[ICD10: M54.31] Carleen Anaya MD, [facility] CPT- 4: 89692 03/23/2018 89393 EST. PATIENT, LEVEL III Diagnosis: Low back pain[ICD10: M54.5] Diagnosis: Sacroiliitis, not elsewhere classified[ICD10: M46.1] Wendi Anaya MD, [facility] CPT-4: 62339 03/12/2018 ([id number]) 33522 EST. PATIENT, LEVEL IV Diagnosis: Atrophy of thyroid (acquired)[ICD10: E03.4] Diagnosis: Essential (primary) hypertension[ICD10: I10] Diagnosis: Urge incontinence[ICD10: N39.41] Carleen Anaya MD, [facility] CPT-4: 40525 03/02/2018 ([id number]) 85373 EST. PATIENT, LEVEL III Diagnosis: Cellulitis of face[ICD10: L03.211] Mimi Anaya MD, [facility] CPT- 4: 32656 02/08/2018 ([id number]) 29169 EST. PATIENT, LEVEL IV Diagnosis: Atrophy of thyroid (acquired)[ICD10: E03.4] Diagnosis: Essential (primary) hypertension[ICD10: I10] Diagnosis: Urge incontinence[ICD10: N39.41] Carleen Anaya MD, [facility] CPT-4: 45021 12/03/2017 90709 EST. PATIENT, LEVEL IV Diagnosis: Essential (primary) hypertension[ICD10: I10] Diagnosis: Weakness[ICD10: R53.1] Diagnosis: Low back pain[ICD10: M54.5] Diagnosis: Other allergic rhinitis[ICD10: J30.89] Wendi Anaya MD, [facility] CPT- 4: 39913 10/27/2017 11832 EST. PATIENT, LEVEL IV Diagnosis: Pneumonia due to other specified bacteria[ICD10: J15.8] Diagnosis: Chronic systolic (congestive) heart failure[ICD10: I50.22] Wendi Anaya MD, [facility] CPT-4: 46655 10/12/2017 ([id number]) 70955 EST. PATIENT, LEVEL IV Diagnosis: Atrophy of thyroid (acquired)[ICD10: E03.4] Diagnosis: Nonscarring hair loss, unspecified[ICD10: L65.9] Diagnosis: Essential (primary) hypertension[ICD10: I10] Carleen Anaya MD, [facility] CPT-4: 95268 10/06/2017 ([id number]) 07759 EST. PATIENT, LEVEL IV Diagnosis: Atrophy of thyroid (acquired)[ICD10: E03.4] Diagnosis: Essential (primary) hypertension[ICD10: I10] Diagnosis: Localized edema[ICD10: R60.0] Carleen Anaya MD, [facility] CPT-4: 81739 08/05/2017 ([id number]) 33040 EST. PATIENT, LEVEL IV Diagnosis: Essential (primary) hypertension[ICD10: I10] Diagnosis: Weakness[ICD10: R53.1] Diagnosis: Other fecal abnormalities[ICD10: R19.5] Carleen Anaya MD, [facility] CPT-4: 34930 07/06/2017 ([id number]) 16409 EST. 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 CPT-4: 96084 06/18/2017 75186 EST. PATIENT, LEVEL IV Diagnosis: Pain in right shoulder[ICD10: M25.511] Diagnosis: Weakness[ICD10: R53.1] Diagnosis: Other fatigue[ICD10: R53.83] Diagnosis: Other malaise[ICD10: R53.81] Wendi Anaya MD, [facility] CPT-4: 08837 05/11/2017 ([id number]) Miscellaneous no charge Diagnosis: Essential (primary) hypertension[ICD10: I10] Mimi Anaya MD, [facility] CPT-4: 10292 04/30/2017 ([id number]) 97850 EST. PATIENT, LEVEL III Diagnosis: Acute recurrent maxillary sinusitis[ICD10: J01.01] Diagnosis: Urinary tract infection, site not specified[ICD10: N39.0] Mimi Anaya MD, [facility] CPT-4: 68054 04/27/2017 ([id number]) 11459 EST. PATIENT, LEVEL IV Diagnosis: Atrophy of thyroid (acquired)[ICD10: E03.4] Diagnosis: Essential (primary) hypertension[ICD10: I10] Diagnosis: Iron deficiency[ICD10: E61.1] Diagnosis: Other specified heart block[ICD10: I45.5] Carleen Anaya MD, [facility] CPT-4: 90230 04/08/2017 48882 EST. PATIENT, LEVEL III Diagnosis: Low back pain[ICD10: M54.5] Diagnosis: Sacroiliitis, not elsewhere classified[ICD10: M46.1] Wendi Anaya MD, [facility] CPT-4: 31329 03/03/2017 ([id number]) 62530 EST. PATIENT, LEVEL IV Diagnosis: Essential (primary) hypertension[ICD10: I10] Diagnosis: Atrophy of thyroid (acquired)[ICD10: E03.4] Diagnosis: Vascular dementia without behavioral disturbance[ICD10: F01.50] Carleen Anaya MD, [facility] CPT-4: 68929 01/05/2017 80567 EST. PATIENT, LEVEL III Diagnosis: Cervicalgia[ICD10: M54.2] Diagnosis: Other muscle spasm[ICD10: M62.838] Wendi Anaya MD, [facility] CPT-4: 02144 12/19/2016 ([id number]) 51569 EST. PATIENT, LEVEL III Diagnosis: Essential (primary) hypertension[ICD10: I10] Diagnosis: Gastro-esophageal reflux disease without esophagitis[ICD10: K21.9] Carleen Anaya MD, [facility] CPT-4: 00805 11/13/2016 ([id number]) 98252 EST. PATIENT, LEVEL III Diagnosis: Pain in right shoulder[ICD10: M25.511] Diagnosis: Insomnia due to medical condition[ICD10: G47.01] Carleen Anaya MD, [facility] CPT-4: 63650 10/16/2016 ([id number]) 64318 EST. PATIENT, LEVEL IV Diagnosis: Pneumonia due to other specified bacteria[ICD10: J15.8] Diagnosis: Pain in right shoulder[ICD10: M25.511] Diagnosis: Cough[ICD10: R05] Carleen Anaya MD, [facility] CPT-4: 35749 10/06/2016 ([id number]) 24292 EST. PATIENT, LEVEL IV Diagnosis: Essential (primary) hypertension[ICD10: I10] Diagnosis: Personal history of other specified conditions[ICD10: Z87.898] Diagnosis: Unsteadiness on feet[ICD10: R26.81] Carleen Anaya MD, [facility] CPT- 4: 96744 07/02/2016 ([id number]) 35791 EST. PATIENT, LEVEL IV Diagnosis: Dysphagia, pharyngeal phase[ICD10: R13.13] Diagnosis: Urge incontinence[ICD10: N39.41] Diagnosis: Gastro-esophageal reflux disease without esophagitis[ICD10: K21.9] Carleen Anaya MD, [facility] CPT-4: 38220 05/21/2016 ([id number]) 57838 EST. PATIENT, LEVEL III Diagnosis: Gastro-esophageal reflux disease without esophagitis[ICD10: K21.9] Carleen Anaya MD [facility] CPT-4: 81255 05/07/2016 ([id number]) 30790 EST. PATIENT, LEVEL III Diagnosis: Acute laryngopharyngitis[ICD10: J06.0] Diagnosis: Dysphagia, pharyngeal phase[ICD10: R13.13] Diagnosis: Allergic rhinitis due to pollen[ICD10: J30.1] Mimi Anaya MD, [facility] CPT-4: 67205 04/28/2016 ([id number]) Miscellaneous no charge Diagnosis: Acute laryngopharyngitis[ICD10: J06.0] Wendi Anaya MD, [facility] CPT- 4: 69434 04/10/2016 24881 EST. PATIENT, LEVEL IV Diagnosis: Cervicalgia[ICD10: M54.2] Diagnosis: Acute laryngopharyngitis[ICD10: J06.0] Diagnosis: 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[ICD10: Z79.01] Diagnosis: Other cystitis without hematuria[ICD10: N30.80] Wendi Anaya MD, [facility] CPT-4: 24099 04/07/2016 ([id number]) 42504 EST. PATIENT, LEVEL IV Diagnosis: Essential (primary) hypertension[ICD10: I10] Diagnosis: Hypothyroidism, unspecified[ICD10: E03.9] Diagnosis: Other fatigue[ICD10: R53.83] Diagnosis: Urge incontinence[ICD10: N39.41] Mimi Anaya MD, [facility] CPT- 4: 36599 04/03/2016 ([id number]) 81341 EST. PATIENT, LEVEL IV Diagnosis: Essential (primary) hypertension[ICD10: I10] Diagnosis: Pain in right ankle and joints of right foot[ICD10: M25.571] Diagnosis: Dizziness and giddiness[ICD10: R42] Diagnosis: Tinnitus, bilateral[ICD10: H93.13] Mimi Anaya MD, [facility] CPT- 4: 14517 01/31/2016 ([id number]) 34308 EST. PATIENT, LEVEL IV Diagnosis: Essential (primary) hypertension[ICD10: I10] Diagnosis: Otalgia, right ear[ICD10: H92.01] Diagnosis: Allergic rhinitis due to pollen[ICD10: J30.1] Diagnosis: Hypothyroidism, unspecified[ICD10: E03.9] Mimi Anaya MD, [facility] CPT-4: 85854 11/29/2015 ([id number]) 98342 EST. PATIENT, LEVEL IV Diagnosis: Essential (primary) hypertension[ICD10: I10] Diagnosis: Urge incontinence[ICD10: N39.41] Diagnosis: Unspecified dementia without behavioral disturbance[ICD10: F03.90] Mimi Anaya MD, [facility] CPT-4: 59279 10/01/2015 ([id number]) 35055 EST. PATIENT, LEVEL IV Diagnosis: Essential (primary) hypertension[ICD10: I10] Diagnosis: Hypothyroidism, unspecified[ICD10: E03.9] Diagnosis: Unspecified dementia without behavioral disturbance[ICD10: F03.90] Diagnosis: Urge incontinence[ICD10: N39.41] Mimi Anaya MD, [facility] CPT- 4: 89590 08/30/2015 ([id number]) 45586 EST. PATIENT, LEVEL IV Diagnosis: Essential (primary) hypertension[ICD10: I10] Diagnosis: Hypothyroidism, unspecified[ICD10: E03.9] Diagnosis: Hyperlipidemia, unspecified[ICD10: E78.5] Carleen Anaya MD, [facility] CPT-4: 45186 07/31/2015 ([id number]) 43396 EST. PATIENT, LEVEL IV Diagnosis: Essential (primary) hypertension[ICD10: I10] Diagnosis: residential (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 of anticoagulants[ICD10: Z79.01] Diagnosis: Dizziness and giddiness[ICD10: R42] Carleen Anaya MD, [facility] CPT- 4: 43347 07/03/2015 ([id number]) 92276 EST. PATIENT, LEVEL IV Diagnosis: ESSENTIAL HYPERTENSION[ICD9: 401.9] Diagnosis: MACULAR DEGENERATION[ICD9: 362.50] Diagnosis: Peripheral vascular disease[ICD9: 443.9] Diagnosis: Neuropathy[ICD9: 355.9] Carleen Anaya MD, [facility] CPT-4: 69370 04/10/2015 ([id number]) OFFICE/OUTPATIENT VISIT NEW Diagnosis: ESSENTIAL HYPERTENSION[ICD9: 401.9] Diagnosis: HYPOTHYROIDISM[ICD9: 244.9] Diagnosis: URGE INCONTINENCE[ICD9: 788.31] Diagnosis: Constipation - functional[ICD9: 564.09] Carleen Anaya MD, [facility] CPT-4: 69122 01/11/2015 Plan of Care Planned Activity Notes Codes Status Date Visit Plan: Low abdominal pain, possible Diverticulitis - rx for antibiotic sent to pt's pharmacy - pt advised to avoid seeds, nuts, popcorn, or any other food which has been proven to upset the pt's stomach. 12/24/2018 Appointment: Wendi Uriostegui WPtel: [address] [place], [place] [id number] (30 min) [facility] 12/24/2018 Patient Education: Patient Medication Summary Completed 12/24/2018 Visit Plan: UTI - pt with positive urinalysis - culture sent if appropriate. Antibiotic electronically prescribed to pt's pharmacy of choice. Pt to call if symptoms do not improve. 12/21/2018 Appointment: Wendi Uriostegui WPtel[id number] ([facility] 12/21/2018 Patient Education: Patient [...] O2. 11/23/2018 Appointment: [facility]ostegui [facility] [phone] [id number] ([facility]) Complex 11/23/2018 Patient Education: Patient Medication Summary Completed 11/23/2018 Visit Plan: Possible vaginal bleeding -patient has a history of total hysterectomy -no obvious bleeding today upon inspection -will culture urine -monitor symptoms and call if bleeding persists or worsens. 11/01/2018 Appointment: [facility]spin[facility] [phone] [id number] [place] (30 min) Complex 11/01/2018 Patient Education: Patient [...] of control. 09/30/2018 Appointment: [id number] ([facility] min) Moderate 09/30/2018 Patient Education: Patient Medication Summary Completed 09/30/2018 Appointment: [id number] ([facility] min) Moderate 09/22/2018 Visit Plan: Hypothyroidism [...] at home. 07/20/2018 Appointment: [facility] Anaya [facility]el[facility] [phone] [facility] ([facility] min) Moderate 07/20/2018 Patient Education: Patient [...] this time. 06/29/2018 Appointment: Carleen Anaya WPtel: [facility] [facility] (15 min) Moderate 06/29/2018 Patient Education: Patient [...] care surrogate. 06/08/2018 Appointment: Mimi Espinosa WPtel: [facility]5 [phone] [facility] - Annual Wellness Visit 06/08/2018 Patient Education: [...] edema. Weakness-fatigue- check labs Dysuria- check UA NNQ-lkfcgpvmdq-gx changes in medications 05/24/2018 Appointment: Mimi Espinosa WPtel: [facility]1 [phone] (15 min) Moderate 05/24/2018 Patient Education: Patient Medication Summary Completed 05/24/2018 Appointment: Injection 05/20/2018 Patient Education: Patient Medication Summary Completed 05/20/2018 Visit Plan: Sciatica- pt to continue with aleve twice daily and cyclobenzaprine x 1 week. Pt is to call if the symptoms do not improve or if they worsen. referral to [facility] physical therapy. 04/06/2018 Appointment: Carleen Anaya WPtel: [facility]3 [facility]6[address] (15 min) Moderate 04/06/2018 Patient Education: Patient [...] do not improve or if they worsen. [id number] - andrew 03/23/2018 Appointment: Carleen Anaya WPtel: [facility]6 [facility]66[facility] (15 min) Moderate 03/23/2018 Patient Education: Patient [...] of injection. 03/12/2018 Appointment: Wendi Uriostegui WPtel: [facility]8 [facility] (30 min) Complex 03/12/2018 Patient Education: Patient [...] myrbetric 03/02/2018 Appointment: Carleen Anaya WPtel: [phone] [facility] (15 min) Moderate 03/02/2018 Patient Education: Patient Medication Summary Completed 03/02/2018 Appointment: (10 min) Simple 02/09/2018 Visit Plan: Cellulitis - start oral antibiotics as directed, return to clinic as directed, call for acute change in symptoms, worsening redness, warmth, discharge. 02/08/2018 Appointment: Mimi Espinosa WPtel: [phone] [phone] (15 min) Moderate 02/08/2018 Patient Education: Patient [...] 50mg daily. 12/03/2017 Appointment: Carleen Anaya WPtel: [phone] [facility] [place] (15 min) Moderate 12/03/2017 Patient [...] allergy spray. 10/27/2017 Appointment: Wendi Uriostegui WPtel: [facility]3 [facility]66[facility] (15 min) Moderate 10/27/2017 Patient Education: Patient Medication Summary Completed 10/27/2017 Visit Plan: Pneumonia - Pt has been diagnosed with pneumonia by physical exam. A chest xray has been ordered as have antibiotics. The pt is aware of the diagnosis and the need for acute treatment of this illness. 10/12/2017 Appointment: Wendi Uriostegui WPtel: [facility]5 [facility]6[address] (15 min) Moderate 10/12/2017 Patient Education: [...] labs today. 10/06/2017 Appointment: Carleen Anaya WPtel: [facility]1 [facility]66[facility] (15 min) Moderate 10/06/2017 Patient Education: Patient [...] and prn. 08/05/2017 Appointment: Carleen Anaya WPtel: [facility]5 [facility] (15 min) Moderate 08/05/2017 Patient Education: Patient Medication Summary Completed 08/05/2017 Appointment: Carleen Anaya WPtel: [address] [place], [place] [phone] (15 min) Moderate 07/14/2017 Visit Plan: Hypertension [...] voltaren gel. 07/06/2017 Appointment: Carleen Anaya WPtel: [address] [place], [place] [address] (15 min) Moderate 07/06/2017 Patient Education: Patient [...] shot today 06/18/2017 Appointment: Carleen Anaya WPtel: [phone] [facility] [place] (15 min) Moderate 06/18/2017 Patient Education: Patient Medication Summary Completed 06/18/2017 Appointment: Nurse Visit 05/12/2017 Care Plan: X-RAY EXAM OF SHOULDER LOINC : 39495-1 Pending 05/12/2017 Visit Plan: Weakness, fatigue, malaise - Discussed with Dr. Anaya - pt sent for IV fluids, will check labs and UA - will treat as indicated - pt is to keep her appointment with her rn surgical pcu for her ECHO and Carotid US. Pt is to follow up with her oncologist. Right shoulder pain after fall - will send for X-ray - The pt is to use prn antiinflammatories to manage acute pain. The patient is to call the office if the pain is worsening or does not improve. 05/11/2017 Appointment: Wendi Uriostegui WPtel: [phone] [facility] [place] (30 min) Complex 05/11/2017 Patient Education: [...] plan. 04/27/2017 Appointment: Mimi Espinosa WPtel: [phone] [phone] [place] (15 min) Moderate 04/27/2017 Patient Education: [...] heart beat - recommended evaluation by her Bull Wheel Worker - Dr. Butler - I attempted a phone call to the office of Dr. Butler, I had to leave a message on the answering machine. If i don't hear back from Dr. Butler's office, we will need to do a Holter monitor on patient. 04/08/2017 Appointment: Carleen Anaya WPtel: [phone] [facility] [place] (15 min) Moderate 04/08/2017 Patient Education: Patient Medication Summary Completed 04/08/2017 Care Plan: Referral Order SNOMED-CT : [id number] Pending 04/08/2017 Visit Plan: UTI - pt [...] injection. 03/03/2017 Appointment: Wend[facility]ostegui [facility]Ptel[phone] [facility] (30 min) Complex 03/03/2017 Patient Education: Patient [...] control. 01/05/2017 Appointment: Carleen Anaya WPtel: [phone] [facility] (15 min) Moderate 01/05/2017 Patient Education: Patient Medication Summary Completed 01/05/2017 Visit Plan: Neck Pain- pt to start with aspercreme or biofreeze to neck three times daily and start neck exercises daily. Will send RX - The patient is to call the office if the pain is worsening or does not improve. 12/19/2016 Appointment: Wendi Uriostegui WPtel: [phone] [facility] (30 min) Complex 12/19/2016 Patient Education: Patient [...] improving. 11/13/2016 Appointment: Carleen Anaya WPtel: [phone] [facility] (15 min) Moderate 11/13/2016 Patient Education: Patient Medication Summary Completed 11/13/2016 Visit Plan: Insomnia -extended release melatonin - you can take up to 10mg of melatonin sleepy time tea - - use warm milk in the tea. Right shoulder - pt to continue with therapy, anti-inflammatory 10/16/2016 Appointment: Carleen Anaya WPtel: [address] [place], [place] [phone] (15 min) Moderate 10/16/2016 Patient Education: Patient [...] with pt. 10/06/2016 Appointment: Carleen Anaya WPtel: [address] [place], [place] [phone] (15 min) Moderate 10/06/2016 Patient Education: Patient Medication Summary Completed 10/06/2016 Care Plan: X-RAY EXAM OF SHOULDER LOINC : 86854-2 Pending 10/06/2016 Appointment: Carleen Anaya WPtel: [address] [place], [place] [phone] (30 min) Complex 10/01/2016 Referral: [facility] WPtel: [address] Patient informed. Completed 07/08/2016 Visit Plan: Hypertension [...] discussed therapy. 07/02/2016 Appointment: Carleen Anaya WPtel: [address] [place], [place] [phone] (15 min) Moderate 07/02/2016 Patient Education: Patient Medication Summary Completed 07/02/2016 Care Plan: Referral Order SNOMED-CT : [id number] Pending 07/02/2016 Visit Plan: Hypertension - well [...] planning on getting a flu shot at [facility] and she is due for another pneumovax- last pneumovax was in 2008 - so she can have pneumovax now and the prevnar in 2017 05/21/2016 Appointment: Carleen Anaya WPtel: [facility]8 [address] (15 min) Moderate 05/21/2016 Patient Education: Patient Medication Summary Completed 05/21/2016 Referral: Medardo Del Real [address] Referral Completed 05/12/2016 Visit Plan: Esophageal [...] times daily 05/07/2016 Appointment: Carleen Anaya WPtel: [facility]0 [address] (15 min) Moderate 05/07/2016 Patient Education: Patient Medication Summary Completed 05/07/2016 Appointment: Mimi Espinosa WPtel: [facility]6 [place] [phone] (30 min) Complex 05/01/2016 Visit Plan: Allergies [...] Kenalog injection today in the office Sore fpadoy-nxiqsnojw-sfmfi dexilant-refer to Dr Del Real for evaluation 04/28/2016 Appointment: Mimi Espinosa WPtel: [phone] [phone] (30 min) Complex 04/28/2016 Patient Education: Patient [...] switched. 04/07/2016 Appointment: Wendi Uriostegui WPtel: [phone] [facility] [place] (30 min) Complex 04/07/2016 Patient Education: Patient [...] atigue-check labs including UA-culture if positive Urge viybqptpxoex-ycmxosdrq-wtbwd UA with C&S 04/03/2016 Appointment: Mimi Espinosa WPtel: [phone] [phone] (30 min) Complex 04/03/2016 Patient Education: Patient Medication Summary Completed 04/03/2016 Visit Plan: Hypertension - well controlled - continue with current medications, continue with no added salt diet. Pt has been encouraged to exercise daily. The pt has been advised to call the office if there are any acute concerns about change in blood pressure readings at home. Jpefpkspk-pkvzxweo-swqzjxvi MRI brain Right ankle what-zcxlvqr-klsl right ankle- plan to refer to physical therapy if appropriate 01/31/2016 Appointment: Jesús Mimi WPtel: [phone] [phone] (30 min) Complex 01/31/2016 Patient Education: Patient [...] to medications. 07/31/2015 Appointment: Carleen Anaya WPtel: [phone] [facility] (15 min) Moderate 07/31/2015 Patient Education: Patient Medication Summary Completed 07/31/2015 Patient Education: Hypertension Completed 07/31/2015 Care Plan: Referral Order SNOMED-CT : [id number] Ordered 07/31/2015 Visit Plan: Hypertension - uncontrolled [...] Nortryptyline 07/03/2015 Appointment: Carleen Anaya WPtel: [phone] [facility] (15 min) Moderate 07/03/2015 Patient Education: Patient [...] Completed 01/11/2015 Referral: [facility] WPtel: [facility]3 [facility] [place] Referral Appointment Requested Referral: External, Ordering Provider Referral Appointment Requested Referral: External, Ordering Provider Referral Relationship Referral: Medardo Del Real [facility] [place] Referral Appointment Requested Instructions Comment Flonase [...] planning on getting a flu shot at [facility] and she is due for another [...] heart beat - recommended evaluation by her Bull Wheel Worker - Dr. Butler - I attempted a [...] call if symptoms do not improve. . Low back pain- The pt is [...] Kenalog injection today in the office Sore izovnx-bnlnelmvt-zwpqa dexilant-refer to Dr Del Real for evaluation [...] Fatigue-check labs including UA-culture if positive Urge cukwwqgmoply-ikpdavpfi-sqxbj UA with C&S add z-pack, continue cefdinir [...] edema. Weakness-fatigue- check labs Dysuria- check UA MCY-mxhvowjqnh-qo changes in medications . Hypertension - well controlled - continue with current medications, continue with no added salt diet. Pt has been encouraged to exercise daily. The pt has been advised to call the office if there are any acute concerns about change in blood pressure readings at home. Yvqrapzch-bnyfdwnc-qinottwx MRI brain Right ankle ggyr-svkntyr-yvdq right ankle-plan to refer to physical therapy [...] improve or if they worsen. referral to [facility] physical therapy. . Hypertension - well controlled [...] do not improve or if they worsen. [id number] - kenalog Stop Oxybutynin chloride ER. Start [...] is to keep her appointment with her rn surgical pcu for her ECHO and Carotid US. Pt [...]
--- OUTSIDE RECORDS SUMMARY | 2019-01-01 11:21 | XMS REPORT | CCD ---
Author Author [facility] Organization [facility] Address [address] [place] [address] Phone Care Team Providers Care De Alcoholizer Name Role Phone PP Unavailable CCM Unavailable Summary Purpose Interface Exchange Insurance Providers Payer name Policy type / Coverage type Covered democrat ID Effective Begin Date Effective End Date WPS Medicare Part B Medicare Part B [id number] Unknown Unknown [facility] Medicare Part B [id number] Unknown Unknown Family history Father Diagnosis Age At Onset Cancer Unknown Arthritis Unknown Mother Diagnosis Age At Onset Breast cancer Unknown Arthritis Unknown Social History Social History Element Codes Description Effective Dates Alcohol history Unknown occasionally drinks alcohol 06/08/2018 Frequency of drinks SNOMED CT: 537292941 Drinks rarely 06/08/2018 Marital status Unknown 01/11/2015 Number of children Unknown 3 01/11/2015 Employment Unknown Retired 01/11/[address]: 4109241 Quit over 10 years ago 1950 01/11/[address]: 940764988 Never drinks alcohol 01/11/2015 Allergies, Adverse Reactions, Alerts Substance Reaction Codes Entered Date Inactivated Date Status * OTHER REACTION - SEE ANSWER BOX vancogein red Unknown 01/11/2015 No Inactive Date Active CODEINE RxNorm: 2670 01/11/2015 No Inactive Date Active demerol RxNorm: 804348 08/30/2015 No Inactive Date Active hydrocodone Unknown 01/11/2015 No Inactive Date Active MORPHINE AND RELATED Unknown 01/11/2015 No Inactive Date Active Past Medical History Illness Codes Condition Status Onset Date Resolved Date Dysuria ICD-9: 788.1 ICD-10: R30.0 Active 2017 [...] ICD-9: 782.3 ICD-10: R60.0 Active 08/05/2017 Unknown 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 ICD-9: V58.61 ICD-10: [...] ICD-9: 787.7 ICD-10: R19.5 Active 07/06/2017 Unknown Diarrhea, unspecified ICD- 9: 787.91 ICD-10: R19.7 Active 07/03/2017 Unknown Encounter for immunization ICD-9: V03.82 ICD-10: [...] Problems Condition Codes Effective Dates Condition Status Dysuria ICD-9: 788.1 ICD-10: R30.0 2017 Active [...] edema ICD-9: 782.3 ICD-10: R60.0 08/05/2017 Active 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 ICD-9: V58.61 ICD-10: [...] abnormalities ICD-9: 787.7 ICD-10: R19.5 07/06/2017 Active Diarrhea, unspecified ICD- 9: 787.91 ICD-10: R19.7 07/03/2017 Active Encounter for immunization ICD-9: V03.82 ICD-10: [...] Start Date Stop Date Status Fill Instructions Keflex 500 mg capsule RxNorm: 076743 1 Capsule(s) PO TID 12/21/2018 12/30/2018 Active Pyridium 200 mg tablet RxNorm: 3443911 1 Tablet(s) PO TID as needed for pain 12/21/2018 12/22/2018 Active Synthroid 175 mcg tablet RxNorm: 032151 1 Tablet(s) PO daily 09/30/2018 02/26/2019 Active this is an update on the dose - she is to take this daily - hold off on the 200mcg pills for now Synthroid 175 mcg tablet RxNorm: 093856 1 Tablet(s) PO 5 times weekly 09/30/2018 09/29/2018 Inactive alternate with 175mcg order losartan 25 mg tablet RxNorm: 431753 TAKE 1 TABLET BY MOUTH ONCE DAILY 08/30/2018 No Stop Date Active Myrbetriq 50 mg tablet,extended release RxNorm: 8769751 1 Tablet(s) PO daily 08/24/2018 12/21/2018 Inactive Synthroid 175 mcg tablet RxNorm: 650408 1 Tablet(s) PO 4 times a week Thu Sat sun 07/20/2018 09/29/2018 Inactive alternate with 175mcg order Synthroid 200 mcg tablet RxNorm: 855208 Tablet(s) TAKE ONE TABLET BY MOUTH ON THURSDAY, Thursday07/20/2018 09/29/2018 Inactive pantoprazole 40 mg tablet,delayed release RxNorm: 193149 TAKE ONE TABLET BY MOUTH TWICE DAILY 07/19/2018 No Stop Date Active furosemide 40 mg tablet RxNorm: 711777 1 Tablet(s) PO 2 times weekly with song con per dr butler 07/13/2018 No Stop Date Active Synthroid 200 mcg tablet RxNorm: 874990 TAKE ONE TABLET BY MOUTH ON THURSDAY, THURSDAY, AND Thursday07/13/2018 07/19/2018 Inactive Vitamin D3 400 unit capsule RxNorm: 695338 1 Capsule(s) PO daily 06/17/2018 No Stop Date Active Aspirin Low Dose 81 mg tablet,delayed release RxNorm: 158852 1 Tablet(s) PO BIW on Thursday and Thursday06/17/2018 No Stop Date Active biotin 1,000 mcg chewable tablet RxNorm: 8368688 1 Tablet(s) PO daily 06/17/2018 No Stop Date Active Vitamin B-12 500 mcg tablet RxNorm: 030914 1 Tablet(s) PO daily 06/17/2018 No Stop Date Active Colace 100 mg capsule RxNorm: 5479429 1 Capsule(s) PO QHS 06/08/2018 No Stop Date Active Coumadin 3 mg tablet RxNorm: 622153 1 Tablet(s) PO daily x5 days and 2 mg x2 days -Managed by Dr. Bowman 06/08/2018 No Stop Date Active Keflex 500 mg capsule RxNorm: 007540 1 Capsule(s) PO TID 05/25/2018 05/31/2018 Inactive metoprolol succinate ER 100 mg tablet,extended release 24 hr RxNorm: 768611 Tablet(s) TAKE ONE TABLET BY MOUTH ONCE DAILY 05/19/2018 No Stop Date Active Coumadin 3 mg tablet RxNorm: 430648 1 Tablet(s) PO daily -Managed by Dr. Bowman 05/04/2018 06/07/2018 Inactive Synthroid 175 mcg tablet RxNorm: 582001 TAKE 1 TABLET BY MOUTH ONCE DAILY 04/06/2018 06/07/2018 Inactive cyclobenzaprine 5 mg tablet RxNorm: 171318 1/2 Tablet(s) PO TID 04/06/2018 04/15/2018 Inactive Synthroid 200 mcg tablet RxNorm: 037456 1 Tablet(s) PO TIW Rhonda Munoz 04/05/2018 07/12/2018 Inactive brand name only- Alternate with 175mcg dose schedule Synthroid 175 mcg tablet RxNorm: 450250 1 Tablet(s) PO 4 times a week Thu04/05/2018 07/19/2018 Inactive alternate with 175mcg order cyclobenzaprine 5 mg tablet RxNorm: 725086 1/2 Tablet(s) PO TID 03/23/2018 04/01/2018 Inactive tramadol 50 mg tablet RxNorm: 618577 1 Tablet(s) PO TID as needed 03/17/2018 No Stop Date Active Kenalog 40 mg/mL suspension for injection RxNorm: 5093940 2 Milliliter(s) Inj 03/12/2018 03/12/2018 Inactive prednisone 20 mg tablet RxNorm: 416068 2 Tablet(s) PO daily 03/11/2018 03/10/2018 Inactive prednisone 20 mg tablet RxNorm: 939856 2 Tablet(s) PO daily 03/11/2018 03/15/2018 Inactive losartan 25 mg tablet RxNorm: 636420 TAKE ONE TABLET BY MOUTH ONCE DAILY 02/16/2018 08/29/2018 Inactive doxycycline hyclate 100 mg tablet RxNorm: 7908153 1 Tablet(s) PO BID 02/08/2018 02/14/2018 Inactive ceftriaxone 500 mg solution for injection RxNorm: 3546203 Inj 02/08/2018 02/08/2018 Inactive dapsone 25 mg tablet RxNorm: 883193 2 Tablet(s) PO daily 02/08/2018 02/12/2018 Inactive metoprolol succinate ER 100 mg tablet,extended release 24 hr RxNorm: 949285 TAKE ONE TABLET BY MOUTH ONCE DAILY 01/05/2018 05/18/2018 Inactive Synthroid 175 mcg tablet RxNorm: 398852 1 Tablet(s) PO daily 01/01/2018 03/31/2018 Inactive Synthroid 175 mcg tablet RxNorm: 115774 1 Tablet(s) PO daily 01/01/2018 12/31/2017 Inactive Myrbetriq 50 mg tablet,extended release RxNorm: 1877566 1 Tablet(s) PO daily 12/03/2017 01/01/2018 Inactive Zithromax Z-Oliver 250 mg tablet RxNorm: 108896 1 Tablet(s) PO UD 10/12/2017 10/16/2017 Inactive Tessalon Perles 100 mg capsule RxNorm: 076465 2 Capsule(s) PO TID as needed 10/12/2017 10/16/2017 Inactive prednisone 20 mg tablet RxNorm: 194536 2 Tablet(s) PO daily 10/12/2017 10/16/2017 Inactive cefdinir 300 mg capsule RxNorm: 409794 1 Capsule(s) PO BID 10/08/2017 10/07/2017 Inactive Synthroid 150 mcg tablet RxNorm: 678970 1 Tablet(s) PO daily in morning, except 1/2 Tablet PO Thu, Sat, take 30 minutes before meal 10/08/2017 04/04/2018 Inactive brand name only cefdinir 300 mg capsule RxNorm: 069998 1 Capsule(s) PO BID 10/08/2017 10/14/2017 Inactive Synthroid 150 mcg tablet RxNorm: 410118 1 Tablet(s) PO daily in morning, take 30 minutes before meal 10/06/2017 10/07/2017 Inactive brand name only cefdinir 300 mg capsule RxNorm: 256623 1 Capsule(s) PO BID 08/24/2017 08/30/2017 Inactive Zithromax Z-Oliver 250 mg tablet RxNorm: 484012 1 Tablet(s) PO UD 08/20/2017 08/19/2017 Inactive Zithromax Z-Oliver 250 mg tablet RxNorm: 173088 1 Tablet(s) PO UD 08/20/2017 08/24/2017 Inactive Synthroid 150 mcg tablet RxNorm: 056611 1 Tablet(s) PO daily in morning, take 30 minutes before meal 08/05/2017 08/04/2017 Inactive Synthroid 150 mcg tablet RxNorm: 450433 1 Tablet(s) PO daily in morning, take 30 minutes before meal 08/05/2017 10/05/2017 Inactive Coumadin 3 mg tablet RxNorm: 009259 1 Tablet(s) PO Thursday, , , and Sat- Managed by Dr. Bowman -Managed by Dr. Bowman 08/05/2017 05/03/2018 Inactive pantoprazole 40 mg tablet,delayed release RxNorm: 526967 1 Tablet(s) PO BID 07/08/2017 07/02/2018 Inactive pantoprazole 40 mg tablet,delayed release RxNorm: 665508 1 Tablet(s) PO BID 07/08/2017 07/07/2017 Inactive metoprolol succinate ER 100 mg tablet,extended release 24 hr RxNorm: 676042 TAKE ONE TABLET BY MOUTH ONCE DAILY 07/08/2017 01/04/2018 Inactive Coumadin 3 mg tablet RxNorm: 773862 1 Tablet(s) PO QPM -Managed by Dr. Bowman 07/06/2017 08/04/2017 Inactive Coumadin 3 mg tablet RxNorm: 945441 1 Tablet(s) PO QPM at 6:00pm Managed by Dr Bowman 1/2 pill on thursday and thursday, full pill other days 06/18/2017 07/05/2017 Inactive Voltaren 1 % topical gel RxNorm: 445957 2 TOP QID 06/18/2017 10/15/2017 Inactive Micro-K 10 10 mEq capsule,extended release RxNorm: 349075 1 Capsule(s) PO daily 05/08/2017 12/02/2017 Inactive Synthroid 137 mcg tablet RxNorm: 777851 1 Tablet(s) PO QAM 05/08/2017 08/04/2017 Inactive Dose increased 04/14/17 pravastatin 10 mg tablet RxNorm: 009302 1 Tablet(s) PO daily TAKE ONE TABLET BY MOUTH ONCE DAILY 05/08/2017 12/02/2017 Inactive losartan 25 mg tablet RxNorm: 237160 1 Tablet(s) PO daily TAKE ONE TABLET BY MOUTH ONCE DAILY 05/08/2017 06/07/2018 Inactive Namenda 10 mg tablet RxNorm: 761013 TAKE ONE TABLET BY MOUTH TWICE DAILY 05/07/2017 12/02/2017 Inactive Keflex 500 mg capsule RxNorm: 409296 1 Capsule(s) PO TID 04/27/2017 05/03/2017 Inactive Synthroid 137 mcg tablet RxNorm: 609570 1 Tablet(s) PO QAM 04/14/2017 04/13/2017 Inactive Vitamin D2 50,000 unit capsule RxNorm: 510957 1 Capsule(s) PO QW 04/14/2017 12/02/2017 Inactive Synthroid 137 mcg tablet RxNorm: 702107 1 Tablet(s) PO QAM 04/14/2017 05/07/2017 Inactive losartan 25 mg tablet RxNorm: 449361 TAKE ONE TABLET BY MOUTH ONCE DAILY 03/23/2017 05/07/2017 Inactive Synthroid 125 mcg tablet RxNorm: 914671 TAKE ONE TABLET BY MOUTH ONCE DAILY 03/12/2017 04/12/2017 Inactive ciprofloxacin 500 mg tablet RxNorm: 578446 1 Tablet(s) PO BID 2017 03/13/2017 Inactive prednisone 20 mg tablet RxNorm: 737732 2 Tablet(s) PO daily 03/03/2017 03/07/2017 Inactive tramadol 50 mg tablet RxNorm: 588217 1/2 Tablet(s) PO TID as needed 03/03/2017 12/02/2017 Inactive pravastatin 10 mg tablet RxNorm: 983806 TAKE ONE TABLET BY MOUTH ONCE DAILY 01/19/2017 05/07/2017 Inactive nortriptyline 10 mg capsule RxNorm: 862153 TAKE ONE CAPSULE BY MOUTH ONCE DAILY IN THE EVENING 01/14/2017 12/02/2017 Inactive Voltaren 1 % topical gel RxNorm: 918163 TOP QID 12/22/2016 02/19/2017 Inactive Voltaren 1 % topical gel RxNorm: 085659 TOP QID 12/22/2016 12/21/2016 Inactive prednisone 20 mg tablet RxNorm: 303991 2 Tablet(s) PO daily 12/19/2016 12/23/2016 Inactive cyclobenzaprine 5 mg tablet RxNorm: 446069 1/2 Tablet(s) PO BID as needed 12/19/2016 12/23/2016 Inactive Flector 1.3 % transdermal 12 hour patch RxNorm: 356422 1 Patch TOP every 12 hours as needed 12/19/2016 12/02/2017 Inactive losartan 25 mg tablet RxNorm: 195898 1 Tablet(s) PO daily TAKE ONE TABLET BY MOUTH ONCE DAILY 11/13/2016 03/22/2017 Inactive Namenda 10 mg tablet RxNorm: 577341 TAKE ONE TABLET BY MOUTH TWICE DAILY 10/28/2016 04/25/2017 Inactive nortriptyline 10 mg capsule RxNorm: 966315 TAKE ONE CAPSULE BY MOUTH ONCE DAILY IN THE EVENING 10/13/2016 01/10/2017 Inactive ceftriaxone 500 mg solution for injection RxNorm: 4784341 Inj 10/06/2016 10/06/2016 Inactive cefdinir 300 mg capsule RxNorm: 370858 1 Capsule(s) PO BID 10/06/2016 10/12/2016 Inactive prednisone 20 mg tablet RxNorm: 688419 2 Tablet(s) PO daily 10/06/2016 10/08/2016 Inactive ProAir RespiClick 90 mcg/actuation breath activated RxNorm: 6562525 2 INH TID x 3 days then one inhale tid x 3 days then prn shortness of breath 10/06/2016 11/04/2016 Inactive Kenalog 40 mg/mL suspension for injection RxNorm: 0172590 1 Milliliter(s) Inj 10/06/2016 10/06/2016 Inactive Myrbetriq 50 mg tablet,extended release RxNorm: 6943890 1 Tablet(s) PO daily 09/11/2016 11/12/2016 Inactive Namenda 10 mg tablet RxNorm: 595330 TAKE ONE TABLET BY MOUTH TWICE DAILY 07/25/2016 10/22/2016 Inactive hydrochlorothiazide 25 mg tablet RxNorm: 445196 1 Tablet(s) PO daily 07/25/2016 12/02/2017 Inactive Synthroid 125 mcg tablet RxNorm: 863917 TAKE ONE TABLET BY MOUTH ONCE DAILY 07/14/2016 03/10/2017 Inactive losartan 25 mg tablet RxNorm: 804208 TAKE ONE TABLET BY MOUTH ONCE DAILY 07/07/2016 11/12/2016 Inactive metoprolol succinate ER 100 mg tablet,extended release 24 hr RxNorm: 782685 1 Tablet(s) PO daily 06/16/2016 06/10/2017 Inactive nortriptyline 10 mg capsule RxNorm: 960158 Capsule(s) TAKE ONE CAPSULE BY MOUTH ONCE DAILY IN THE EVENING 06/09/2016 10/06/2016 Inactive Myrbetriq 50 mg tablet,extended release RxNorm: 0040256 1 Tablet(s) PO daily 05/21/2016 09/10/2016 Inactive doxycycline hyclate 100 mg tablet RxNorm: 321197 1 Tablet(s) PO BID 05/07/2016 05/13/2016 Inactive Carafate 100 mg/mL oral suspension RxNorm: 302222 10 Milliliter(s) PO QID 05/07/2016 12/02/2017 Inactive Kenalog 40 mg/mL suspension for injection RxNorm: 2422445 Milliliter(s) Inj 04/28/2016 04/28/2016 Inactive losartan 25 mg tablet RxNorm: 015703 TAKE ONE TABLET BY MOUTH ONCE DAILY 04/08/2016 07/06/2016 Inactive ciprofloxacin 500 mg tablet RxNorm: 163373 1 Tablet(s) PO BID 04/07/2016 04/13/2016 Inactive cyclobenzaprine 5 mg tablet RxNorm: 071257 1 Tablet(s) PO TID 04/07/2016 04/16/2016 Inactive Keflex 500 mg capsule RxNorm: 964296 1 Capsule(s) PO TID 04/03/2016 04/02/2016 Inactive Keflex 500 mg capsule RxNorm: 680011 1 Capsule(s) PO TID 04/03/2016 04/09/2016 Inactive losartan 25 mg tablet RxNorm: 147866 TAKE ONE TABLET BY MOUTH ONCE DAILY 03/06/2016 04/07/2016 Inactive nortriptyline 10 mg capsule RxNorm: 645660 TAKE ONE CAPSULE BY MOUTH ONCE DAILY IN THE EVENING 03/06/2016 06/03/2016 Inactive pravastatin 10 mg tablet RxNorm: 099492 TAKE ONE TABLET BY MOUTH ONCE DAILY 02/04/2016 01/18/2017 Inactive warfarin 4 mg tablet RxNorm: 748129 Tablet(s) PO q d except 5mg on tue 01/31/2016 06/17/2017 Inactive Myrbetriq 50 mg tablet,extended release RxNorm: 5824281 1 Tablet(s) PO daily 01/17/2016 05/15/2016 Inactive Namenda 10 mg tablet RxNorm: 767751 1 Tablet(s) PO BID 01/01/2016 06/28/2016 Inactive Myrbetriq 50 mg tablet,extended release RxNorm: 3869827 1 Tablet(s) PO daily 12/20/2015 12/20/2015 Inactive Synthroid 125 mcg tablet RxNorm: 691574 1 Tablet(s) PO daily 11/14/2015 07/10/2016 Inactive nortriptyline 10 mg capsule RxNorm: 441725 TAKE ONE CAPSULE BY MOUTH ONCE DAILY IN THE EVENING 11/05/2015 03/03/2016 Inactive Myrbetriq 50 mg tablet,extended release RxNorm: 1601742 1 Tablet(s) PO daily 10/01/2015 12/19/2015 Inactive Namenda 10 mg tablet RxNorm: 037585 1 Tablet(s) PO BID 08/30/2015 12/31/2015 Inactive Vesicare 10 mg tablet RxNorm: 345597 1 Tablet(s) PO daily 08/30/2015 09/30/2015 Inactive warfarin 4 mg tablet RxNorm: 545749 Tablet(s) PO 08/30/2015 01/30/2016 Inactive Synthroid 125 mcg tablet RxNorm: 812337 1 Tablet(s) PO daily 08/02/2015 11/13/2015 Inactive Synthroid 125 mcg tablet RxNorm: 647537 Tablet(s) PO 08/01/2015 08/01/2015 Inactive losartan 25 mg tablet RxNorm: 917312 1 Tablet(s) PO daily 07/31/2015 02/25/2016 Inactive pravastatin 10 mg tablet RxNorm: 052989 1 Tablet(s) PO daily 07/23/2015 01/18/2016 Inactive hydrochlorothiazide 25 mg tablet RxNorm: 013806 1 Tablet(s) PO daily 07/19/2015 07/12/2016 Inactive nortriptyline 10 mg capsule RxNorm: 299657 1 Capsule(s) PO QPM 07/03/2015 10/30/2015 Inactive metoprolol succinate ER 100 mg tablet,extended release 24 hr RxNorm: 737227 1 Tablet(s) PO daily 06/06/2015 05/30/2016 Inactive pravastatin 10 mg tablet RxNorm: 227900 1 Tablet(s) PO daily 01/22/2015 07/20/2015 Inactive aspirin 81 mg capsule,delayed release RxNorm: 977594 1 Capsule(s) PO daily 01/11/2015 02/09/2015 Inactive Fosamax 5 mg tablet RxNorm: 783719 1 Tablet(s) QW 01/11/2015 12/02/2017 Inactive oxybutynin chloride ER 10 mg tablet,extended release 24 hr RxNorm: 862258 1 Tablet(s) PO daily 01/11/2015 08/29/2015 Inactive Fosamax 70 mg tablet RxNorm: 544853 1 Tablet(s) PO QW No Start Date Active Claritin oral RxNorm: 62758 oral No Start Date Active Centrum oral RxNorm: oral No Start Date Active Calcium 600 + D(3) oral RxNorm: 972161 oral No Start Date Active Coumadin 4 mg tablet RxNorm: 631946 1 Tablet(s) PO daily on M,W,F No Start Date 06/07/2018 Inactive Vitamin D3 oral RxNorm: oral No Start Date 06/16/2018 Inactive pravastatin 10 mg tablet RxNorm: 426150 1 Tablet(s) PO daily No Start Date 01/21/2015 Inactive Aspirin Low Dose 81 mg tablet,delayed release RxNorm: 356675 1 Tablet(s) PO BIW on Thursday and Thursday No Start Date 06/16/2018 Inactive Tylenol PM oral RxNorm: 921680 oral No Start Date 04/07/2017 Inactive Vitamin D2 oral RxNorm: 4018 oral No Start Date 06/08/2018 Inactive Vitamin D2 50,000 unit capsule RxNorm: 749603 1 Capsule(s) PO QW No Start Date 04/13/2017 Inactive tramadol 50 mg tablet RxNorm: 523156 1 Tablet(s) PO TID as needed No Start Date 03/16/2018 Inactive Colace 100 mg capsule RxNorm: 1490641 Capsule(s) PO No Start Date 06/07/2018 Inactive furosemide 40 mg tablet RxNorm: 834101 1 Tablet(s) PO daily as needed No Start Date 07/12/2018 Inactive biotin oral RxNorm: oral No Start Date 06/16/2018 Inactive Micro-K 10 10 mEq capsule,extended release RxNorm: 695588 1 Capsule(s) PO daily No Start Date 05/07/2017 Inactive Synthroid 100 mcg tablet RxNorm: 325255 Tablet(s) PO No Start Date 07/31/2015 Inactive Vitamin B-12 oral RxNorm: oral No Start Date 06/16/2018 Inactive PreserVision AREDS 2 oral RxNorm: 0516845 oral No Start Date 06/07/2018 Inactive hydrochlorothiazide 25 mg tablet RxNorm: 834637 1 Tablet(s) PO daily No Start Date 07/18/2015 Inactive warfarin 2 mg tablet RxNorm: 407744 Tablet(s) PO No Start Date 08/29/2015 Inactive metoprolol succinate ER 100 mg tablet,extended release 24 hr RxNorm: 158733 1 Tablet(s) PO daily No Start Date 06/05/2015 Inactive warfarin 3 mg tablet RxNorm: 759200 Tablet(s) PO No Start Date 08/29/2015 Inactive Coumadin 3 mg tablet RxNorm: 213421 1 Tablet(s) PO QPM at 6:00pm Managed by Dr Bowman No Start Date 06/17/2017 Inactive Myrbetriq 50 mg tablet,extended release RxNorm: 5699680 1 Tablet(s) PO daily No Start Date 08/23/2018 Inactive Medication Administered Medication Codes Instructions Start Date Status Kenalog 40 mg/mL suspension for injection RxNorm: 3019852 2Milliliter 03/12/2018 No longer Active ceftriaxone 500 mg solution for injection RxNorm: 2279497 02/08/2018 No longer Active Kenalog 40 mg/mL suspension for injection RxNorm: 4054373 1Milliliter 10/06/2016 No longer Active ceftriaxone 500 mg solution for injection RxNorm: 3276215 10/06/2016 No longer Active Kenalog 40 mg/mL suspension for injection RxNorm: 8406961 Milliliter 04/28/2016 No longer Active Immunizations Vaccine Codes Date Status SHINGARIX CVX: 121 09/07/2018 completed SHINGARIX CVX: 121 06/08/2018 completed Influenza CVX: 141 05/20/2018 completed Influenza CVX: 141 06/18/2017 completed Influenza CVX: 141 06/10/2016 completed Pneumococcal CVX: 133 05/29/2016 completed Influenza CVX: 141 07/03/2015 completed Assessments Condition Codes Effective Dates Pelvic and perineal pain ICD-10: R10.2 ICD-9: [...] Localized edema ICD-10: R60.0 ICD-9: 782.3 05/24/2018 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 ICD-10: Z79.01 ICD-9: [...] For Visit Effective Dates Notes abdominal pain 12/21/2018 medication follow up 11/23/2018 [...] NO Growth Day 2 05/27/2018 Comp Metabolic Bsw128 NA 142 mEq/L 05/24/2018 Comp Metabolic Hft229 K 4.0 mEq/L 05/24/2018 Comp Metabolic Tsv149 CL 104 mEq/L 05/24/2018 Comp Metabolic Nil394 CO2 30.0 mEq/L 05/24/2018 Comp Metabolic Cln997 ANION GAP 12 05/24/2018 Comp Metabolic Eup938 GLUCOSE 94 mg/dL 05/24/2018 Comp Metabolic Obh841 Creat 0.6 mg/dL 05/24/2018 Comp Metabolic Leq899 eGFR 97 ml/min/1.73m2 05/24/2018 Comp Metabolic Umm068 BUN 12 mg/dL 05/24/2018 Comp Metabolic Vjq811 B/C Ratio 19.4 Ratio 05/24/2018 Comp Metabolic Dzt221 CALCIUM 8.8 mg/dL 05/24/2018 Comp Metabolic Qwz196 ALK PHOS 135 U/L 05/24/2018 Comp Metabolic Ivq342 AST(SGOT) 18 U/L 05/24/2018 Comp Metabolic Hoa339 ALT(SGPT) 16 U/L 05/24/2018 Comp Metabolic Tsw070 BILI T 0.4 mg/dL 05/24/2018 Comp Metabolic Sgw941 ALBUMIN 3.9 g/dL 05/24/2018 Comp Metabolic Shv358 TPRO 6.0 g/dL 05/24/2018 Comp Metabolic Rpn124 GLOB 2.1 g/dL 05/24/2018 Comp Metabolic Twh440 A/G Ratio 1.8 Ratio 05/24/2018 Comp Metabolic Neq590 Osmo 283 mOsmo 05/24/2018 Pt Qry8443 PT 28.2 seconds 05/24/2018 Pt Pcu3529 INR 2.6 05/24/2018 Pt Paj7062 Low Intensity - 1.5-2.0 05/24/2018 Pt Fig1212 Mod intensity - 2.0-3.0 05/24/2018 Pt Ghw1532 Hi intensity - 3.0-4.0 05/24/2018 Cbc With [...] 29.7 pg 05/24/2018 Cbc With Differential Ord2 [place]% 7.0 % 05/24/2018 Cbc With Differential Ord2 [...] 1.54 K/ul 05/24/2018 Cbc With Differential Ord2 [place] ABS# 0.5 K/ul 05/24/2018 Cbc With Differential Ord2 Eos ABS# 0.4 K/ul 05/24/2018 Cbc With Differential Ord2 Baso ABS# 0.0 K/ul 05/24/2018 Tsh Ord6 TSH (3rd IS) 3.19 uIU/mL 10/06/2017 Free T4 Hnj615 FREE T4 1.64 ng/dL 10/06/2017 Free T4 Gmm740 FREE T4 1.03 ng/dL 08/05/2017 Tsh Ord6 [...] Ord30 C/HDL 3.7 Ratio 04/09/2017 Free T4 Qzb532 FREE T4 0.97 ng/dL 04/09/2017 Tibc Ord40 Iron 36 ug/dl 04/09/2017 Tibc Ord40 UIBC 281 ug/dL 04/09/2017 Tibc Ord40 TIBC 317 ug/dL 04/09/2017 Tibc Ord40 Fe-%Sat 11.4 % 04/09/2017 Comp Metabolic Xgr048 NA 136 mEq/L 04/09/2017 Comp Metabolic Yzn260 K 3.9 mEq/L 04/09/2017 Comp Metabolic Maf247 CL 98 mEq/L 04/09/2017 Comp Metabolic Zge480 CO2 28.0 mEq/L 04/09/2017 Comp Metabolic Ekr387 ANION GAP 14 04/09/2017 Comp Metabolic Ptd775 GLUCOSE 90 mg/dL 04/09/2017 Comp Metabolic Jsr194 Creat 0.6 mg/dL 04/09/2017 Comp Metabolic Bfd129 eGFR 102 ml/min/1.73m2 04/09/2017 Comp Metabolic Yvd489 BUN 9 mg/dL 04/09/2017 Comp Metabolic Dqb743 B/C Ratio 15.3 Ratio 04/09/2017 Comp Metabolic Bwa044 CALCIUM 8.8 mg/dL 04/09/2017 Comp Metabolic Eim753 ALK PHOS 102 U/L 04/09/2017 Comp Metabolic Agc506 AST(SGOT) 18 U/L 04/09/2017 Comp Metabolic Eam967 ALT(SGPT) 14 U/L 04/09/2017 Comp Metabolic Gdz605 BILI T 0.4 mg/dL 04/09/2017 Comp Metabolic Hil221 ALBUMIN 3.9 g/dL 04/09/2017 Comp Metabolic Rtz768 TPRO 6.3 g/dL 04/09/2017 Comp Metabolic Lfr332 GLOB 2.4 g/dL 04/09/2017 Comp Metabolic Zbv993 A/G Ratio 1.7 Ratio 04/09/2017 Comp Metabolic Spk862 Osmo 270 mOsmo 04/09/2017 Vitamin D 25 Oh Uyw3801 VITAMIN D, 25 HYDROXY 34.31 ng/mL 04/09/2017 [...] 28.9 pg 04/09/2017 Cbc With Differential Ord2 [place]% 8.8 % 04/09/2017 Cbc With Differential Ord2 [...] 1.22 K/ul 04/09/2017 Cbc With Differential Ord2 [place] ABS# 0.7 K/ul 04/09/2017 Cbc With Differential Ord2 Eos ABS# 0.1 K/ul 04/09/2017 Cbc With Differential Ord2 Baso ABS# 0.0 K/ul 04/09/2017 Urine Culture Ucult Complete >100,000 col/ml aerobic growth sent to ref lab 03/05/2017 Pt Iuj8491 PT 24.2 seconds 04/14/2016 Pt Uix0817 INR 2.3 04/14/2016 Pt Qpq0964 Low Intensity - 1.5-2.0 04/14/2016 Pt Cpc3281 Mod intensity - 2.0-3.0 04/14/2016 Pt Zce9115 Hi intensity - 3.0-4.0 04/14/2016 Pt Fvg5012 PT 31.3 seconds 04/10/2016 Pt Jms7544 INR 3.3 04/10/2016 Pt Owj7003 Low Intensity - 1.5-2.0 04/10/2016 Pt Npd4960 Mod intensity - 2.0-3.0 04/10/2016 Pt Ywj6416 Hi intensity - 3.0-4.0 04/10/2016 C RAP A SC [id number] Strep A Negative 04/10/2016 Urine Culture Ucult Complete >100,000 col/ml aerobic growth sent to ref lab 04/04/2016 Comp Metabolic Eqa654 NA 136 mEq/L 04/03/2016 Comp Metabolic Ist299 K 3.9 mEq/L 04/03/2016 Comp Metabolic Hni250 CL 99 mEq/L 04/03/2016 Comp Metabolic Yut684 CO2 32.0 mEq/L 04/03/2016 Comp Metabolic Xbi598 ANION GAP 9 04/03/2016 Comp Metabolic Mqx900 GLUCOSE 88 mg/dL 04/03/2016 Comp Metabolic Cyq152 Creat 0.6 mg/dL 04/03/2016 Comp Metabolic Qoz555 eGFR 93 ml/min/1.73m2 04/03/2016 Comp Metabolic Fzs161 BUN 15 mg/dL 04/03/2016 Comp Metabolic Dvt056 B/C Ratio 23.4 Ratio 04/03/2016 Comp Metabolic Zqv367 CALCIUM 8.7 mg/dL 04/03/2016 Comp Metabolic Qld036 ALK PHOS 100 U/L 04/03/2016 Comp Metabolic Ivp284 AST(SGOT) 28 U/L 04/03/2016 Comp Metabolic Afm502 ALT(SGPT) 39 U/L 04/03/2016 Comp Metabolic Qrx274 BILI T 0.5 mg/dL 04/03/2016 Comp Metabolic Avs826 ALBUMIN 4.1 g/dL 04/03/2016 Comp Metabolic Hre559 TPRO 6.6 g/dL 04/03/2016 Comp Metabolic Ivv634 GLOB 2.5 g/dL 04/03/2016 Comp Metabolic Haa534 A/G Ratio 1.7 Ratio 04/03/2016 Comp Metabolic Ytd707 Osmo 272 mOsmo 04/03/2016 Cbc With Differential [...] 29.0 pg 04/03/2016 Cbc With Differential Ord2 [place]% 11.3 % 04/03/2016 Cbc With Differential Ord2 [...] 1.15 K/ul 04/03/2016 Cbc With Differential Ord2 [place] ABS# 0.8 K/ul 04/03/2016 Cbc With Differential Ord2 [place] ABS# 0.2 K/ul 04/03/2016 Cbc With Differential Ord2 Baso ABS# 0.0 K/ul 04/03/2016 Tsh Ord6 hTSH II 3.06 uIU/mL 04/03/2016 Free T4 Lkb674 FREE T4 0.99 ng/dL 04/03/2016 Free T4 Ooh520 FREE T4 0.81 ng/dL 07/31/2015 Comp Metabolic Frp997 NA 136 mEq/L 07/31/2015 Comp Metabolic Kpa441 K 3.8 mEq/L 07/31/2015 Comp Metabolic Gwv250 CL 97 mEq/L 07/31/2015 Comp Metabolic Dua195 CO2 29.0 mEq/L 07/31/2015 Comp Metabolic Imb290 ANION GAP 14 07/31/2015 Comp Metabolic Tif641 GLUCOSE 90 mg/dL 07/31/2015 Comp Metabolic Vao160 Creat 0.7 mg/dL 07/31/2015 Comp Metabolic Qjm228 eGFR 80 ml/min/1.73m2 07/31/2015 Comp Metabolic Xpn882 BUN 8 mg/dL 07/31/2015 Comp Metabolic Bei072 B/C Ratio 11.0 Ratio 07/31/2015 Comp Metabolic Yaq690 CALCIUM 8.9 mg/dL 07/31/2015 Comp Metabolic Hux304 ALK PHOS 102 U/L 07/31/2015 Comp Metabolic Ovg965 AST(SGOT) 22 U/L 07/31/2015 Comp Metabolic Kly265 ALT(SGPT) 14 U/L 07/31/2015 Comp Metabolic Xlg799 BILI T 0.5 mg/dL 07/31/2015 Comp Metabolic Twc315 ALBUMIN 4.4 g/dL 07/31/2015 Comp Metabolic Fzj403 TPRO 6.7 g/dL 07/31/2015 Comp Metabolic Nga246 GLOB 2.3 g/dL 07/31/2015 Comp Metabolic Xqv877 A/G Ratio 1.9 Ratio 07/31/2015 Comp Metabolic Wfn934 Osmo 270 mOsmo 07/31/2015 Tsh Ord6 hTSH [...] Lipid Ord30 C/HDL 4.8 Ratio 07/31/2015 Pt Lre5137 PT 31.9 seconds 07/03/2015 Pt Gly0717 INR 3.2 07/03/2015 Pt Gnu1510 Low Intensity - 1.5-2.0 07/03/2015 Pt Wpl2513 Mod intensity - 2.0-3.0 07/03/2015 Pt Jzy2697 Hi intensity - 3.0-4.0 07/03/2015 Review of Systems System Result Effective Dates Constitutional No recent illness 12/21/2018 Constitutional No [...] Effective Dates Notes Full Exam - General 1995 Constitutional general appearance Overall: well developed 12/21/2018 None Full Exam - General 1995 Constitutional general appearance Overall: in no acute distress 12/21/2018 None Full Exam - General 1995 Constitutional general appearance Overall: well nourished 12/21/2018 None Full Exam - General 1994 Eyes conjunctiva/eyelids Overall: conjunctiva clear 12/21/2018 None Full Exam - General 1995 Eyes conjunctiva/eyelids Overall: cornea clear 12/21/2018 None Full Exam - General 1995 Eyes conjunctiva/eyelids Overall: eyelids normal 12/21/2018 None [...] 11/23/2018 None Full Exam - General 1995 Eyes conjunctiva/eyelids Overall: eyelids normal 11/23/2018 None Full Exam - General 1995 Ears/Nose/Throat lips/teeth/gingiva Overall: benign lips 11/23/2018 None [...] clear 03/02/2018 None Full Exam - General 1995 Ears/Nose/Throat oral cavity/pharynx/larynx Overall: hypopharynx benign 03/02/2018 [...] - General 1995 Ears/Nose/Throat internal nose Overall: bilateral nasal cavities [...] appearance 11/13/2016 None Full Exam - General 1995 Ears/Nose/Throat external ear Overall: no masses 11/13/2016 [...] Codes Date URINALYSIS NONAUTO W/O SCOPE CPT-4: 43750 11/01/2018 PPPS, SUBSEQ VISIT CPT- 4: G0439 06/08/2018 URINALYSIS NONAUTO W/O SCOPE CPT-4: 07530 05/25/2018 ADMIN INFLUENZA VIRUS VAC CPT-4: G0008 05/20/2018 FLU VACC PRSV FREE INC ANTIG CPT-4: 52176 05/20/2018 DRAIN/INJECT JOINT/BURSA CPT-4: 02899 03/23/2018 TRIAMCINOLONE ACET INJ NOS CPT-4: J3301 03/23/2018 DRAIN/INJECT JOINT/BURSA CPT-4: 38189 03/12/2018 TRIAMCINOLONE ACET INJ NOS CPT-4: J3301 03/12/2018 ROCEPHIN, PER 250 MG CPT- 4: J0696 02/08/2018 ADMIN INFLUENZA VIRUS VAC CPT-4: G0008 06/18/2017 FLU VACC PRSV FREE INC ANTIG CPT-4: 19536 06/18/2017 URINALYSIS NONAUTO W/O SCOPE CPT-4: 79423 04/27/2017 URINALYSIS NONAUTO W/O SCOPE CPT-4: 71291 2017 DRAIN/INJECT JOINT/BURSA CPT-4: 13678 03/03/2017 TRIAMCINOLONE ACET INJ NOS CPT-4: J3301 03/03/2017 TRIAMCINOLONE ACET INJ NOS CPT-4: J3301 10/06/2016 ROCEPHIN, PER 250 MG CPT- 4: J0696 10/06/2016 THER/PROPH/DIAG INJ SC/IM CPT-4: 07273 10/06/2016 TRIAMCINOLONE ACET INJ NOS CPT-4: J3301 04/28/2016 URINALYSIS NONAUTO W/O SCOPE CPT-4: 73704 04/03/2016 ADMIN INFLUENZA VIRUS VAC CPT-4: G0008 07/03/2015 FLU VACC PRSV FREE INC ANTIG CPT-4: 15380 07/03/2015 Vital Signs Date Vital 12/21/2018 Blood Pressure 1: 162/82 Code: 8480-6 Heart Rate 1: 80 bpm Height: SpO2: 94% Weight: 11/23/2018 Blood Pressure 1: 134/78 Code: 8480-6 BMI: 27.4 Code: 39532-5 Heart Rate 1: 88 bpm Height: 5'6" Weight: 170 lbs 11/01/2018 Blood Pressure 1: 132/85 Code: 8480-6 BMI: 27.3 Code: 49829-0 Height: 5'6" Weight: 169 lbs 09/30/2018 Blood Pressure 1: 142/80 Code: 8480-6 BMI: 27.3 Code: 95451-8 Heart Rate 1: 84 bpm Height: 5'6" SpO2: 96% Weight: 169 lbs 07/20/2018 Blood Pressure 1: 124/70 Code: 8480-6 Heart Rate 1: 76 bpm Height: SpO2: 95% Weight: 06/29/2018 Blood Pressure 1: 142/80 Code: 8480-6 BMI: 27.8 Code: 04012-5 Heart Rate 1: 89 bpm Height: 5'6" SpO2: 94% Weight: 172 lbs 06/08/2018 Blood Pressure 1: 144/66 Code: 8480-6 BMI: 27.9 Code: 88664-8 Heart Rate 1: 85 bpm Height: 5'6" SpO2: 97% Waist Measure (cm): 97 cm Weight: 173 lbs 05/24/2018 Blood Pressure 1: 128/72 Code: 8480-6 BMI: 27.9 Code: 05068-1 Heart Rate 1: 82 bpm Height: 5'6" SpO2: 92% Weight: 173 lbs 04/06/2018 Blood Pressure 1: 138/88 Code: 8480-6 Heart Rate 1: 86 bpm Height: SpO2: 96% Weight: 03/23/2018 Blood Pressure 1: 150/88 Code: 8480-6 Heart Rate 1: 80 bpm Height: SpO2: 96% Weight: 03/12/2018 Heart Rate 1: 90 bpm Height: Weight: 03/02/2018 Blood Pressure 1: 128/80 Code: 8480-6 BMI: 28.4 Code: 31320-4 Heart Rate 1: 83 bpm Height: 5'6" SpO2: 93% Weight: 176 lbs 02/08/2018 Blood Pressure 1: 142/80 Code: 8480-6 Heart Rate 1: 78 bpm Height: 5'6" SpO2: 94% 12/03/2017 Blood Pressure 1: 124/78 Code: 8480-6 BMI: 27.9 Code: 25199-1 Heart Rate 1: 70 bpm Height: 5'6" SpO2: 97% Weight: 173 lbs 10/27/2017 Blood Pressure 1: 126/60 Code: 8480-6 Heart Rate 1: 65 bpm Height: 5'6" SpO2: 98% Weight: 10/12/2017 Blood Pressure 1: 126/74 Code: 8480-6 BMI: 26.0 Code: 81916-1 Heart Rate 1: 80 bpm Height: 5'6" SpO2: 89% Weight: 161 lbs 10/06/2017 Blood Pressure 1: 126/70 Code: 8480-6 BMI: 27.2 Code: 66772-2 Heart Rate 1: 73 bpm Height: 5'6" SpO2: 97% Weight: 168 lbs 8 oz 08/05/2017 Blood Pressure 1: 152/78 Code: 8480-6 BMI: 27.1 Code: 30637-9 Heart Rate 1: 73 bpm Height: 5'6" SpO2: 98% Weight: 168 lbs 07/06/2017 Blood Pressure 1: 148/70 Code: 8480-6 BMI: 26.6 Code: 31663-0 Heart Rate 1: 80 bpm Height: 5'6" SpO2: 97% Weight: 165 lbs 06/18/2017 Blood Pressure 1: 132/68 Code: 8480-6 BMI: 26.8 Code: 85725-0 Heart Rate 1: 84 bpm Height: 5'6" [...] 1: 162/84 Code: 8480-6 BMI: 28.1 Code: 89741-5 Heart Rate 1: 98 bpm Height: 5'6" SpO2: 97% Weight: 174 lbs 03/03/2017 Blood Pressure 1: 154/88 Code: 8480-6 Heart Rate 1: 96 bpm Height: SpO2: 95% Weight: 01/05/2017 Blood Pressure 1: 142/78 Code: 8480-6 BMI: 28.9 Code: 04305-5 Heart Rate 1: 94 bpm Height: 5'6" SpO2: 95% Weight: 179 lbs 12/19/2016 Blood Pressure 1: 130/74 Code: 8480-6 Heart Rate 1: 91 bpm Height: 5'6" SpO2: 97% Weight: 11/13/2016 Blood Pressure 1: 152/82 Code: 8480-6 BMI: 28.4 Code: 55588-8 Heart Rate 1: 85 bpm Height: 5'6" SpO2: 96% Weight: 176 lbs 10/16/2016 Blood Pressure 1: 148/72 Code: 8480-6 BMI: 28.4 Code: 34640-0 Heart Rate 1: 90 bpm Height: 5'6" SpO2: 96% Weight: 176 lbs 10/06/2016 Blood Pressure 1: 150/80 Code: 8480-6 BMI: 28.4 Code: 67235-2 Heart Rate 1: 76 bpm Height: 5'6" SpO2: 97% Weight: 176 lbs 07/02/2016 Blood Pressure 1: 142/78 Code: 8480-6 BMI: 27.8 Code: 61489-3 Heart Rate 1: 85 bpm Height: 5'6" SpO2: 97% Weight: 172 lbs 05/21/2016 Blood Pressure 1: 166/80 Code: 8480-6 BMI: 27.9 Code: 49703-6 Heart Rate 1: 79 bpm Height: 5'6" SpO2: 98% Weight: 173 lbs 05/07/2016 Blood Pressure 1: 140/70 Code: 8480-6 BMI: 27.9 Code: 48306-0 Heart Rate 1: 82 bpm Height: 5'6" SpO2: 96% Weight: 173 lbs 04/28/2016 Blood Pressure 1: 128/86 Code: 8480-6 BMI: 27.4 Code: 02409-4 Heart Rate 1: 86 bpm Height: 5'6" SpO2: 96% Temperature: 36.1 (C) / 97.0 (F) Weight: 170 lbs 04/07/2016 Blood Pressure 1: 150/80 Code: 8480-6 Heart Rate 1: 94 bpm Height: SpO2: 95% Weight: 04/03/2016 Blood Pressure 1: 122/76 Code: 8480-6 BMI: 27.4 Code: 98529-6 Heart Rate 1: 84 bpm Height: 5'6" SpO2: 94% Weight: 170 lbs 01/31/2016 Blood Pressure 1: 124/82 Code: 8480-6 BMI: 27.8 Code: 26764-8 Heart Rate 1: 100 bpm Height: 5'6" SpO2: 97% Weight: 172 lbs 11/29/2015 Blood Pressure 1: 140/82 Code: 8480-6 Blood Pressure 1: 130/84 Code: 8480-6 BMI: 27.4 Code: 65690-1 Heart Rate 1: 97 bpm Height: 5'6" SpO2: 95% Weight: 170 lbs 10/01/2015 Blood Pressure 1: 130/80 Code: 8480-6 BMI: 27.4 Code: 95181-1 Heart Rate 1: 82 bpm Height: 5'6" SpO2: 97% Weight: 170 lbs 08/30/2015 Blood Pressure 1: 120/68 Code: 8480-6 BMI: 27.6 Code: 43935-5 Heart Rate 1: 91 bpm Height: 5'6" SpO2: 96% Weight: 171 lbs 07/31/2015 Blood Pressure 1: 180/80 Code: 8480-6 BMI: 27.4 Code: 93956-7 Heart Rate 1: 60 bpm Height: 5'6" SpO2: 94% Weight: 170 lbs 07/03/2015 Blood Pressure 1: 154/80 Code: 8480-6 BMI: 27.4 Code: 19994-6 Heart Rate 1: 98 bpm Height: 5'6" SpO2: 95% Weight: 170 lbs 04/10/2015 Blood Pressure 1: 138/72 Code: 8480-6 BMI: 27.8 Code: 38706-4 Heart Rate 1: 82 bpm Height: 5'6" SpO2: 98% Weight: 172 lbs 01/11/2015 Blood Pressure 1: 132/74 Code: 8480-6 BMI: 28.6 Code: 00617-3 Heart Rate 1: 88 bpm Height: 5'6" SpO2: 96% Weight: 177 lbs Functional Status No Functional Status data History of Present Illness Symptom Name Status Result Effective Date Notes Location in the suprapubic area 12/21/2018 None [...] None diarrhea Pertinent Findings nausea 07/06/2017 on [place] morning diarrhea Pertinent Findings emesis 07/06/2017 on [place] morning arm pain Location right upper arm [...] Codes Date EST. PATIENT, LEVEL III Diagnosis: Pelvic and perineal pain[ICD10: R10.2] [facility] CPT- 4: 94015 12/21/2018 [id number] EST. PATIENT, LEVEL III Diagnosis: Chronic systolic (congestive) heart failure[ICD10: I50.22] Diagnosis: Essential (primary) hypertension[ICD10: I10] Diagnosis: Hypoxemia[ICD10: R09.02] [facility] CPT-4: 55387 11/23/2018 ([id number]) 92298 EST. PATIENT, LEVEL III Diagnosis: Dysuria[ICD10: R30.0] Diagnosis: Other specified noninflammatory disorders of vagina[ICD10: N89.8] [facility] CPT-4: 19303 11/01/2018 ([id number] 79264 EST. PATIENT, LEVEL IV Diagnosis: Essential (primary) hypertension[ICD10: I10] Diagnosis: Atrophy of thyroid (acquired)[ICD10: E03.4] Carleen Anaya MD, [facility] CPT-4: 33858 09/30/2018 ([id number]) 64491 EST. PATIENT, LEVEL III Diagnosis: Atrophy of thyroid (acquired)[ICD10: E03.4] Diagnosis: Essential (primary) hypertension[ICD10: I10] Carleen Anaya MD, [facility] CPT-4: 79928 07/20/2018 ([id number]) 28022 EST. PATIENT, LEVEL IV Diagnosis: Essential (primary) hypertension[ICD10: I10] Diagnosis: Atrophy of thyroid (acquired)[ICD10: E03.4] Diagnosis: Other fatigue[ICD10: R53.83] Diagnosis: Other insomnia[ICD10: G47.09] Carleen Anaya MD, [facility] CPT-4: 29606 06/29/2018 ([id number]) 80322 EST. 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 PATIENT, LEVEL III Diagnosis: Lumbago with sciatica, right side[ICD10: M54.41] Diagnosis: Sciatica, right side[ICD10: M54.31] Carleen Anaya MD, [facility] CPT- 4: 63364 04/06/2018 ([id number]) 58039 EST. PATIENT, LEVEL III Diagnosis: Lumbago with sciatica, right side[ICD10: M54.41] Diagnosis: Sciatica, right side[ICD10: M54.31] Carleen Anaya MD, [facility] CPT- 4: 33127 03/23/2018 77903 EST. PATIENT, LEVEL III Diagnosis: Low back pain[ICD10: M54.5] Diagnosis: Sacroiliitis, not elsewhere classified[ICD10: M46.1] Wendi Anaya MD, [facility] CPT-4: 99764 03/12/2018 ([id number]) 72089 EST. PATIENT, LEVEL IV Diagnosis: Atrophy of thyroid (acquired)[ICD10: E03.4] Diagnosis: Essential (primary) hypertension[ICD10: I10] Diagnosis: Urge incontinence[ICD10: N39.41] Carleen Anaya MD, [facility] CPT-4: 83047 03/02/2018 ([id number]) 52386 EST. PATIENT, LEVEL III Diagnosis: Cellulitis of face[ICD10: L03.211] Mimi Anaya MD, [facility] CPT- 4: 25078 02/08/2018 ([id number]) 29528 EST. PATIENT, LEVEL IV Diagnosis: Atrophy of thyroid (acquired)[ICD10: E03.4] Diagnosis: Essential (primary) hypertension[ICD10: I10] Diagnosis: Urge incontinence[ICD10: N39.41] Carleen Anaya MD, [facility] CPT-4: 99733 12/03/2017 35829 EST. PATIENT, LEVEL IV Diagnosis: Essential (primary) hypertension[ICD10: I10] Diagnosis: Weakness[ICD10: R53.1] Diagnosis: Low back pain[ICD10: M54.5] Diagnosis: Other allergic rhinitis[ICD10: J30.89] Wendi Anaya MD, [facility] CPT- 4: 22726 10/27/2017 79934 EST. PATIENT, LEVEL IV Diagnosis: Pneumonia due to other specified bacteria[ICD10: J15.8] Diagnosis: Chronic systolic (congestive) heart failure[ICD10: I50.22] Wendi Anaya MD, [facility] CPT-4: 01522 10/12/2017 ([id number]) 62130 EST. PATIENT, LEVEL IV Diagnosis: Atrophy of thyroid (acquired)[ICD10: E03.4] Diagnosis: Nonscarring hair loss, unspecified[ICD10: L65.9] Diagnosis: Essential (primary) hypertension[ICD10: I10] Carleen Anaya MD, [facility] CPT-4: 35267 10/06/2017 ([id number]) 47879 EST. PATIENT, LEVEL IV Diagnosis: Atrophy of thyroid (acquired)[ICD10: E03.4] Diagnosis: Essential (primary) hypertension[ICD10: I10] Diagnosis: Localized edema[ICD10: R60.0] Carleen Anaya MD, [facility] CPT-4: 39281 08/05/2017 ([id number]) 06758 EST. PATIENT, LEVEL IV Diagnosis: Essential (primary) hypertension[ICD10: I10] Diagnosis: Weakness[ICD10: R53.1] Diagnosis: Other fecal abnormalities[ICD10: R19.5] Carleen Anaya MD, [facility] CPT-4: 72396 07/06/2017 ([id number]) 26000 EST. 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 PATIENT, LEVEL IV Diagnosis: Pain in right shoulder[ICD10: M25.511] Diagnosis: Weakness[ICD10: R53.1] Diagnosis: Other fatigue[ICD10: R53.83] Diagnosis: Other malaise[ICD10: R53.81] Wendi Anaya MD, [facility] CPT-4: 09500 05/11/2017 ([id number]) Miscellaneous no charge Diagnosis: Essential (primary) hypertension[ICD10: I10] [facility] CPT-4: 65537 04/30/2017 ([id number]) 87636 EST. PATIENT, LEVEL III Diagnosis: Acute recurrent maxillary sinusitis[ICD10: J01.01] Diagnosis: Urinary tract infection, site not specified[ICD10: N39.0] Mimi Anaya MD, [facility] CPT-4: 12702 04/27/2017 ([id number]) 58964 EST. PATIENT, LEVEL IV Diagnosis: Atrophy of thyroid (acquired)[ICD10: E03.4] Diagnosis: Essential (primary) hypertension[ICD10: I10] Diagnosis: Iron deficiency[ICD10: E61.1] Diagnosis: Other specified heart block[ICD10: I45.5] Carleen Anaya MD, [facility] CPT-4: 12615 04/08/2017 72987 EST. PATIENT, LEVEL III Diagnosis: Low back pain[ICD10: M54.5] Diagnosis: Sacroiliitis, not elsewhere classified[ICD10: M46.1] Wendi Anaya MD, [facility] CPT-4: 49286 03/03/2017 ([id number]) 91872 EST. PATIENT, LEVEL IV Diagnosis: Essential (primary) hypertension[ICD10: I10] Diagnosis: Atrophy of thyroid (acquired)[ICD10: E03.4] Diagnosis: Vascular dementia without behavioral disturbance[ICD10: F01.50] Carleen Anaya MD, [facility] CPT-4: 03336 01/05/2017 34687 EST. PATIENT, LEVEL III Diagnosis: Cervicalgia[ICD10: M54.2] Diagnosis: Other muscle spasm[ICD10: M62.838] Wendi Anaya MD, [facility] CPT-4: 93427 12/19/2016 ([id number]) 28302 EST. PATIENT, LEVEL III Diagnosis: Essential (primary) hypertension[ICD10: I10] Diagnosis: Gastro-esophageal reflux disease without esophagitis[ICD10: K21.9] Carleen Anaya MD, [facility] CPT-4: 90155 11/13/2016 ([id number]) 33413 EST. PATIENT, LEVEL III Diagnosis: Pain in right shoulder[ICD10: M25.511] Diagnosis: Insomnia due to medical condition[ICD10: G47.01] Carleen Anaya MD, [facility] CPT-4: 68204 10/16/2016 ([id number]) 95565 EST. PATIENT, LEVEL IV Diagnosis: Pneumonia due to other specified bacteria[ICD10: J15.8] Diagnosis: Pain in right shoulder[ICD10: M25.511] Diagnosis: Cough[ICD10: R05] Carleen Anaya MD, [facility] CPT-4: 32472 10/06/2016 ([id number]) 10840 EST. PATIENT, LEVEL IV Diagnosis: Essential (primary) hypertension[ICD10: I10] Diagnosis: Personal history of other specified conditions[ICD10: Z87.898] Diagnosis: Unsteadiness on feet[ICD10: R26.81] Carleen Anaya MD, [facility] CPT- 4: 59441 07/02/2016 ([id number]) 76966 EST. PATIENT, LEVEL IV Diagnosis: Dysphagia, pharyngeal phase[ICD10: R13.13] Diagnosis: Urge incontinence[ICD10: N39.41] Diagnosis: Gastro-esophageal reflux disease without esophagitis[ICD10: K21.9] Carleen Anaya MD, [facility] CPT-4: 21785 05/21/2016 ([id number]) 93023 EST. PATIENT, LEVEL III Diagnosis: Gastro-esophageal reflux disease without esophagitis[ICD10: K21.9] Carleen Anaya MD, [facility] CPT-4: 85706 05/07/2016 ([id number]) 02655 EST. PATIENT, LEVEL III Diagnosis: Acute laryngopharyngitis[ICD10: J06.0] Diagnosis: Dysphagia, pharyngeal phase[ICD10: R13.13] Diagnosis: Allergic rhinitis due to pollen[ICD10: J30.1] Mimi Anaya MD, [facility] CPT-4: 56340 04/28/2016 ([id number]) Miscellaneous no charge Diagnosis: Acute laryngopharyngitis[ICD10: J06.0] Wendi Anaya MD, [facility] CPT- 4: 68406 04/10/2016 77854 EST. 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 PATIENT, LEVEL IV Diagnosis: Essential (primary) hypertension[ICD10: I10] Diagnosis: Hypothyroidism, unspecified[ICD10: E03.9] Diagnosis: Other fatigue[ICD10: R53.83] Diagnosis: Urge incontinence[ICD10: N39.41] Mimi Anaya MD, [facility] CPT- 4: 41879 04/03/2016 ([id number]) 36853 EST. PATIENT, LEVEL IV Diagnosis: Essential (primary) hypertension[ICD10: I10] Diagnosis: Pain in right ankle and joints of right foot[ICD10: M25.571] Diagnosis: Dizziness and giddiness[ICD10: R42] Diagnosis: Tinnitus, bilateral[ICD10: H93.13] Mimi Anaya MD, [facility] CPT- 4: 34532 01/31/2016 ([id number]) 12811 EST. PATIENT, LEVEL IV Diagnosis: Essential (primary) hypertension[ICD10: I10] Diagnosis: Otalgia, right ear[ICD10: H92.01] Diagnosis: Allergic rhinitis due to pollen[ICD10: J30.1] Diagnosis: Hypothyroidism, unspecified[ICD10: E03.9] Mimi Anaya MD, [facility] CPT-4: 43491 11/29/2015 ([id number]) 30674 EST. PATIENT, LEVEL IV Diagnosis: Essential (primary) hypertension[ICD10: I10] Diagnosis: Urge incontinence[ICD10: N39.41] Diagnosis: Unspecified dementia without behavioral disturbance[ICD10: F03.90] Mimi Anaya MD, [facility] CPT-4: 85738 10/01/2015 ([id number]) 09562 EST. PATIENT, LEVEL IV Diagnosis: Essential (primary) hypertension[ICD10: I10] Diagnosis: Hypothyroidism, unspecified[ICD10: E03.9] Diagnosis: Unspecified dementia without behavioral disturbance[ICD10: F03.90] Diagnosis: Urge incontinence[ICD10: N39.41] Mimi Anaya MD, [facility] CPT- 4: 11268 08/30/2015 ([id number]) 74174 EST. PATIENT, LEVEL IV Diagnosis: Essential (primary) hypertension[ICD10: I10] Diagnosis: Hypothyroidism, unspecified[ICD10: E03.9] Diagnosis: Hyperlipidemia, unspecified[ICD10: E78.5] Carleen Anaya MD, [facility] CPT-4: 17002 07/31/2015 ([id number]) 73251 EST. PATIENT, LEVEL IV Diagnosis: Essential (primary) hypertension[ICD10: I10] Diagnosis: [facility] (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 of anticoagulants[ICD10: Z79.01] Diagnosis: Dizziness and giddiness[ICD10: R42] MIRTA Hussein MD CPT- 4: 45998 07/03/2015 ([id number]) 86390 EST. PATIENT, LEVEL IV Diagnosis: ESSENTIAL HYPERTENSION[ICD9: 401.9] Diagnosis: MACULAR DEGENERATION[ICD9: 362.50] Diagnosis: Peripheral vascular disease[ICD9: 443.9] Diagnosis: Neuropathy[ICD9: 355.9] MIRTA Hussein MD CPT-4: 99996 04/10/2015 ([id number]) OFFICE/OUTPATIENT VISIT NEW Diagnosis: ESSENTIAL HYPERTENSION[ICD9: 401.9] Diagnosis: HYPOTHYROIDISM[ICD9: 244.9] Diagnosis: URGE INCONTINENCE[ICD9: 788.31] Diagnosis: Constipation - functional[ICD9: 564.09] Carleen Anaya MD, [facility] CPT-4: 42626 01/11/2015 Plan of Care Planned Activity Notes Codes Status Date Visit Plan: UTI - pt with positive urinalysis - culture sent if appropriate. Antibiotic electronically prescribed to pt's pharmacy of choice. Pt to call if symptoms do not improve. 12/21/2018 Patient Education: Patient Medication Summary Completed [...] portable O2. 11/23/2018 Appointment[phone] [id number] ([facility]) Complex 11/23/2018 Patient Education: Patient Medication Summary Completed 11/23/2018 Visit Plan: Possible vaginal bleeding -patient has a history of total hysterectomy -no obvious bleeding today upon inspection -will culture urine -monitor symptoms and call if bleeding persists or worsens. 11/01/2018 Appointment: Mimi Espinosa WPtel: [phone] [phone] [place] (30 min) Complex 11/01/2018 Patient Education: [...] of control. 09/30/2018 Appointment: Carleen Anaya WPtel: [facility] (15 min) Moderate 09/30/2018 Patient Education: Patient Medication Summary Completed 09/30/2018 [facility]ment[phone] ([facility] min) Moderate 09/22/2018 Visit Plan: Hypothyroidism [...] at home. 07/20/2018 Appointment: Carleen Anaya WPtel: [phone] [facility] (15 min) Moderate 07/20/2018 Patient Education: Patient [...] time. 06/29/2018 Appointment: Carleen Anaya WPtel: [phone] [phone] (15 min) Moderate 06/29/2018 Patient Education: Patient [...] care surrogate. 06/08/2018 Appointment: Mimi Espinosa WPtel: [phone] [phone] [facility] - Annual Wellness Visit 06/08/2018 Patient [...] edema. Weakness-fatigue- check labs Dysuria- check UA [id number] changes in medications 05/24/2018 Appointment: Mimi Espinosa WPtel: [phone] [phone] (15 min) Moderate 05/24/2018 Patient Education: Patient Medication Summary Completed 05/24/2018 Appointment: Injection 05/20/2018 Patient Education: Patient Medication Summary Completed 05/20/2018 Visit Plan: Sciatica- pt to continue with aleve twice daily and cyclobenzaprine x 1 week. Pt is to call if the symptoms do not improve or if they worsen. referral to [facility] physical therapy. 04/06/2018 Appointment: Carleen Anaya WPtel: [phone] [facility] (15 min) Moderate 04/06/2018 Patient Education: Patient [...] do not improve or if they worsen. [id number] - andrew 03/23/2018 Appointment: Carleen Anaya WPtel: [phone] [facility]66[facility] (15 min) Moderate 03/23/2018 Patient Education: [...] of injection. 03/12/2018 Appointment: Wendi Uriostegui WPtel: [facility] (30 min) Complex 03/12/2018 Patient Education: Patient [...] with myrbetric 03/02/2018 Appointment: Carleen Anaya WPtel: [facility]5 [address] (15 min) Moderate 03/02/2018 Patient Education: Patient Medication Summary Completed 03/02/2018 Appointment: (10 min) Simple 02/09/2018 Visit Plan: Cellulitis - start oral antibiotics as directed, return to clinic as directed, call for acute change in symptoms, worsening redness, warmth, discharge. 02/08/2018 Appointment: Mimi Espinosa WPtel: [phone] [phone] (15 min) Moderate 02/08/2018 Patient Education: Patient [...] 50mg daily. 12/03/2017 Appointment: [phone] [facility] (15 min) Moderate 12/03/2017 Patient Education: Patient [...] allergy spray. 10/27/2017 Appointment: [facility]ostegui [phone] [facility] (15 min) Moderate 10/27/2017 Patient Education: Patient Medication Summary Completed 10/27/2017 Visit Plan: Pneumonia - Pt has been diagnosed with pneumonia by physical exam. A chest xray has been ordered as have antibiotics. The pt is aware of the diagnosis and the need for acute treatment of this illness. 10/12/2017 Appointment: Wendi Uriostegui WPtel: [phone] [facility] [place] (15 min) Moderate 10/12/2017 Patient Education: Patient [...] labs today. 10/06/2017 Appointment: Carleen Anaya WPtel: [facility]5 [facility] [place] (15 min) Moderate 10/06/2017 Patient Education: Patient [...] and prn. 08/05/2017 Appointment: Carleen Anaya WPtel: [phone] [facility] [place] (15 min) Moderate 08/05/2017 Patient Education: Patient Medication Summary Completed 08/05/2017 Appointment: Carleen Anaya WPtel: [phone] [facility] [place] (15 min) Moderate 07/14/2017 Visit Plan: Hypertension [...] voltaren gel. 07/06/2017 Appointment: Carleen Anaya WPtel: [facility]0 [facility] (15 min) Moderate 07/06/2017 Patient Education: Patient [...] shot today 06/18/2017 Appointment: Carleen Anaya WPtel: [facility]4 [facility] [place] (15 min) Moderate 06/18/2017 Patient Education: Patient Medication Summary Completed 06/18/2017 Appointment: Nurse Visit 05/12/2017 Care Plan: X-RAY EXAM OF SHOULDER LOINC : 25379-5 Pending 05/12/2017 Visit Plan: Weakness, fatigue, malaise - Discussed with Dr. Anaya - pt sent for IV fluids, will check labs and UA - will treat as indicated - pt is to keep her appointment with her bag end sewer for her ECHO and Carotid US. Pt is to follow up with her oncologist. Right shoulder pain after fall - will send for X-ray - The pt is to use prn antiinflammatories to manage acute pain. The patient is to call the office if the pain is worsening or does not improve. 05/11/2017 Appointment: Wendi Uriostegui WPtel: [facility]2 [facility] (30 min) Complex 05/11/2017 Patient Education: Patient [...] plan. 04/27/2017 Appointment: Mimi Espinosa WPtel: [phone] [phone] (15 min) Moderate 04/27/2017 Patient Education: Patient [...] heart beat - recommended evaluation by her Probation Supervisor - Dr. Butler - I attempted a phone call to the office of Dr. Butler, I had to leave a message on the answering machine. If i don't hear back from Dr. Butler's office, we will need to do a Holter monitor on patient. 04/08/2017 Appointment: Carleen Anaya WPtel: [phone] [facility] (15 min) Moderate 04/08/2017 Patient Education: Patient Medication Summary Completed 04/08/2017 Care Plan: Referral Order SNOMED-CT : [id number] Pending 04/08/2017 Visit Plan: UTI - pt [...] injection. 03/03/2017 Appointment: Wendi Uriostegui WPtel: [phone] [facility] (30 min) Complex 03/03/2017 Patient Education: Patient [...] control. 01/05/2017 Appointment: Carleen Anaya WPtel: [phone] [facility] (15 min) Moderate 01/05/2017 Patient Education: Patient Medication Summary Completed 01/05/2017 Visit Plan: Neck Pain- pt to start with aspercreme or biofreeze to neck three times daily and start neck exercises daily. Will send RX - The patient is to call the office if the pain is worsening or does not improve. 12/19/2016 Appointment: Wendi Uriostegui WPtel: [facility]5 [facility] (30 min) Complex 12/19/2016 Patient Education: Patient [...] not improving. 11/13/2016 Appointment: Carleen Anaya WPtel: [facility]5 [facility] (15 min) Moderate 11/13/2016 Patient Education: Patient Medication Summary Completed 11/13/2016 Visit Plan: Insomnia -extended release melatonin - you can take up to 10mg of melatonin sleepy time tea - - use warm milk in the tea. Right shoulder - pt to continue with therapy, anti-inflammatory 10/16/2016 Appointment: Carleen Anaya WPtel: [facility]9 [facility] (15 min) Moderate 10/16/2016 Patient Education: Patient [...] with pt. 10/06/2016 Appointment: Carleen Anaya WPtel: [facility]6 [facility] (15 min) Moderate 10/06/2016 Patient Education: Patient Medication Summary Completed 10/06/2016 Care Plan: X-RAY EXAM OF SHOULDER LOINC : 76590-5 Pending 10/06/2016 Appointment: Carleen Anaya WPtel: [phone] [facility] (30 min) Complex 10/01/2016 Referral: [facility] WPtel: [phone] [facility]6[address] Patient informed. Completed 07/08/2016 Visit Plan: Hypertension [...] discussed therapy. 07/02/2016 Appointment: Carleen Anaya WPtel: [facility]5 [facility]6[address] (15 min) Moderate 07/02/2016 Patient Education: Patient Medication Summary Completed 07/02/2016 Care Plan: Referral Order SNOMED-CT : [id number] Pending 07/02/2016 Visit Plan: Hypertension - well [...] planning on getting a flu shot at [facility] and she is due for another pneumovax- last pneumovax was in 2008 - so she can have pneumovax now and the prevnar in 2017 05/21/2016 Appointment: Carleen Anaya WPtel: [facility]5 [facility] (15 min) Moderate 05/21/2016 Patient Education: Patient Medication Summary Completed 05/21/2016 Referral: Medardo Del Real [id number] Referral Completed 05/12/2016 Visit Plan: Esophageal Reflux [...] times daily 05/07/2016 Appointment: Carleen Anaya WPtel: [facility]4 [address] (15 min) Moderate 05/07/2016 Patient Education: Patient Medication Summary Completed 05/07/2016 Appointment: Mimi Espinosa WPtel: [facility]2 [address] (30 min) Complex 05/01/2016 Visit Plan: Allergies [...] Kenalog injection today in the office Sore uetslm-hxdoiyxik-nexsd dexilant-refer to Dr Del Real for evaluation 04/28/2016 Appointment: Mimi Espinosa WPtel: [facility]7 [place] [phone] (30 min) Complex 04/28/2016 Patient Education: Patient [...] medication switched. 04/07/2016 Appointment: Wendi Uriostegui WPtel: [facility] [place] [address] (30 min) Complex 04/07/2016 Patient Education: Patient [...] atigue-check labs including UA-culture if positive Urge ywhctznomqyf-ognkdgjcx-bvezp UA with C&S 04/03/2016 Appointment: Mimi Espinosa WPtel: [phone] [phone] (30 min) Complex 04/03/2016 Patient Education: Patient Medication Summary Completed 04/03/2016 Visit Plan: Hypertension - well controlled - continue with current medications, continue with no added salt diet. Pt has been encouraged to exercise daily. The pt has been advised to call the office if there are any acute concerns about change in blood pressure readings at home. Rcefmlklh-wdipjiuu-cfjighri MRI brain Right ankle wfsa-vintvzc-khmo right ankle- plan to refer to physical therapy if appropriate 01/31/2016 Appointment: Mimi Espinosa WPtel: [phone] [phone] (30 min) Complex 01/31/2016 Patient Education: Patient [...] to medications. 07/31/2015 Appointment: Carleen Anaya WPtel: [phone] [facility] (15 min) Moderate 07/31/2015 Patient Education: Patient Medication Summary Completed 07/31/2015 Patient Education: Hypertension Completed 07/31/2015 Care Plan: Referral Order SNOMED-CT : [id number] Ordered 07/31/2015 Visit Plan: Hypertension - uncontrolled [...] on Nortryptyline 07/03/2015 Appointment: Carleen Anaya WPtel: [address] [place], [place] [address] (15 min) Moderate 07/03/2015 Patient Education: Patient [...] Completed 01/11/2015 Referral: [facility] WPtel: [phone] [facility] [place] Referral Appointment Requested Referral: External, Ordering Provider Referral Appointment Requested Referral: External, Ordering Provider Referral Relationship Referral: Medardo Del Real [place] [address] [place] Referral Appointment Requested Instructions Comment Flonase [...] planning on getting a flu shot at [facility] and she is due for another pneumovax- [...] heart beat - recommended evaluation by her Probation Supervisor - Dr. Butler - I attempted a [...] Kenalog injection today in the office Sore fdwcnn-ynmuxyyus-zfddd dexilant-refer to Dr Del Real for evaluation [...] Fatigue-check labs including UA-culture if positive Urge dyekplxucujb-ckjmawzsk-iexnd UA with C&S add z-pack, continue cefdinir [...] edema. Weakness-fatigue- check labs Dysuria- check UA CAY-ncekawzsca-la changes in medications . Hypertension - well controlled - continue with current medications, continue with no added salt diet. Pt has been encouraged to exercise daily. The pt has been advised to call the office if there are any acute concerns about change in blood pressure readings at home. Bhvmwgxjq-brpomszr-qmawytfq MRI brain Right ankle devd-sxccfed-wjct right ankle-plan to refer to physical therapy [...] improve or if they worsen. referral to [facility] physical therapy. . Hypertension - well controlled [...] do not improve or if they worsen. [id number] - kenalog Stop Oxybutynin chloride ER. Start [...] is to keep her appointment with her bag end sewer for her ECHO and Carotid US. Pt [...]
--- OUTSIDE RECORDS SUMMARY | 2019-01-01 11:29 | XMS REPORT | CCD ---
Author Author [facility] Organization [facility] Address [address] [place] [address] Phone Care Team Providers Care [employer] Operator Name Role Phone PP Unavailable CCM Unavailable Summary Purpose Interface Exchange Insurance Providers Payer name Policy type / Coverage type Covered constitution party ID Effective Begin Date Effective End Date WPS Medicare Part B Medicare Part B [id number] Unknown Unknown [facility] Medicare Part B [id number] Unknown Unknown Family history Father Diagnosis Age At Onset Cancer Unknown Arthritis Unknown Mother Diagnosis Age At Onset Breast cancer Unknown Arthritis Unknown Social History Social History Element Codes Description Effective Dates Alcohol history Unknown occasionally drinks alcohol 06/08/2018 Frequency of drinks SNOMED CT: 555217794 Drinks rarely 06/08/2018 Marital status Unknown 01/11/2015 Number of children Unknown 3 01/11/2015 Employment Unknown Retired 01/11/[address]: 0298243 Quit over 10 years ago 1950 01/11/[address]: 313305541 Never drinks alcohol 01/11/2015 Allergies, Adverse Reactions, Alerts Substance Reaction Codes Entered Date Inactivated Date Status * OTHER REACTION - SEE ANSWER BOX vancogein red Unknown 01/11/2015 No Inactive Date Active CODEINE RxNorm: 2670 01/11/2015 No Inactive Date Active demerol RxNorm: 924310 08/30/2015 No Inactive Date Active hydrocodone Unknown [...] ICD-9: 782.3 ICD-10: R60.0 Active 08/05/2017 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 ICD-9: V58.61 ICD-10: [...] edema ICD-9: 782.3 ICD-10: R60.0 08/05/2017 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 ICD-9: V58.61 ICD-10: [...] Fill Instructions Keflex 500 mg capsule RxNorm: 846575 1 Capsule(s) PO TID 12/21/2018 12/30/2018 Active Pyridium 200 mg tablet RxNorm: 6762891 1 Tablet(s) PO TID as needed for pain 12/21/2018 12/22/2018 Active Synthroid 175 mcg tablet RxNorm: 625520 1 Tablet(s) PO daily 09/30/2018 02/26/2019 Active this is an update on the dose - she is to take this daily - hold off on the 200mcg pills for now Synthroid 175 mcg tablet RxNorm: 483825 1 Tablet(s) PO 5 times weekly 09/30/2018 09/29/2018 Inactive alternate with 175mcg order losartan 25 mg tablet RxNorm: 840008 TAKE 1 TABLET BY MOUTH ONCE DAILY 08/30/2018 No Stop Date Active Myrbetriq 50 mg tablet,extended release RxNorm: 1097330 1 Tablet(s) PO daily 08/24/2018 12/21/2018 Inactive Synthroid 175 mcg tablet RxNorm: 012462 1 Tablet(s) PO 4 times a week Thu Sat sun 07/20/2018 09/29/2018 Inactive alternate with 175mcg order Synthroid 200 mcg tablet RxNorm: 213115 Tablet(s) TAKE ONE TABLET BY MOUTH ON THURSDAY, Thursday07/20/2018 09/29/2018 Inactive pantoprazole 40 mg tablet,delayed release RxNorm: 705434 TAKE ONE TABLET BY MOUTH TWICE DAILY 07/19/2018 No Stop Date Active furosemide 40 mg tablet RxNorm: 478200 1 Tablet(s) PO 2 times weekly with song con per dr butler 07/13/2018 No Stop Date Active Synthroid 200 mcg tablet RxNorm: 941766 TAKE ONE TABLET BY MOUTH ON THURSDAY, THURSDAY, AND Thursday07/13/2018 07/19/2018 Inactive Vitamin D3 400 unit capsule RxNorm: 847560 1 Capsule(s) PO daily 06/17/2018 No Stop Date Active Aspirin Low Dose 81 mg tablet,delayed release RxNorm: 906280 1 Tablet(s) PO BIW on Thursday and Thursday06/17/2018 No Stop Date Active biotin 1,000 mcg chewable tablet RxNorm: 9380534 1 Tablet(s) PO daily 06/17/2018 No Stop Date Active Vitamin B-12 500 mcg tablet RxNorm: 627739 1 Tablet(s) PO daily 06/17/2018 No Stop Date Active Colace 100 mg capsule RxNorm: 4971738 1 Capsule(s) PO QHS 06/08/2018 No Stop Date Active Coumadin 3 mg tablet RxNorm: 929130 1 Tablet(s) PO daily x5 days and 2 mg x2 days -Managed by Dr. Bowman 06/08/2018 No Stop Date Active Keflex 500 mg capsule RxNorm: 731995 1 Capsule(s) PO TID 05/25/2018 05/31/2018 Inactive metoprolol succinate ER 100 mg tablet,extended release 24 hr RxNorm: 365539 Tablet(s) TAKE ONE TABLET BY MOUTH ONCE DAILY 05/19/2018 No Stop Date Active Coumadin 3 mg tablet RxNorm: 843369 1 Tablet(s) PO daily -Managed by Dr. Bowman 05/04/2018 06/07/2018 Inactive Synthroid 175 mcg tablet RxNorm: 274227 TAKE 1 TABLET BY MOUTH ONCE DAILY 04/06/2018 06/07/2018 Inactive cyclobenzaprine 5 mg tablet RxNorm: 507620 1/2 Tablet(s) PO TID 04/06/2018 04/15/2018 Inactive Synthroid 200 mcg tablet RxNorm: 595242 1 Tablet(s) PO TIW Rhonda Munoz 04/05/2018 07/12/2018 Inactive brand name only- Alternate with 175mcg dose schedule Synthroid 175 mcg tablet RxNorm: 123526 1 Tablet(s) PO 4 times a week Thu04/05/2018 07/19/2018 Inactive alternate with 175mcg order cyclobenzaprine 5 mg tablet RxNorm: 776492 1/2 Tablet(s) PO TID 03/23/2018 04/01/2018 Inactive tramadol 50 mg tablet RxNorm: 601292 1 Tablet(s) PO TID as needed 03/17/2018 No Stop Date Active Kenalog 40 mg/mL suspension for injection RxNorm: 4075767 2 Milliliter(s) Inj 03/12/2018 03/12/2018 Inactive prednisone 20 mg tablet RxNorm: 319554 2 Tablet(s) PO daily 03/11/2018 03/10/2018 Inactive prednisone 20 mg tablet RxNorm: 001586 2 Tablet(s) PO daily 03/11/2018 03/15/2018 Inactive losartan 25 mg tablet RxNorm: 382333 TAKE ONE TABLET BY MOUTH ONCE DAILY 02/16/2018 08/29/2018 Inactive doxycycline hyclate 100 mg tablet RxNorm: 9174136 1 Tablet(s) PO BID 02/08/2018 02/14/2018 Inactive ceftriaxone 500 mg solution for injection RxNorm: 2590340 Inj 02/08/2018 02/08/2018 Inactive dapsone 25 mg tablet RxNorm: 284057 2 Tablet(s) PO daily 02/08/2018 02/12/2018 Inactive metoprolol succinate ER 100 mg tablet,extended release 24 hr RxNorm: 942422 TAKE ONE TABLET BY MOUTH ONCE DAILY 01/05/2018 05/18/2018 Inactive Synthroid 175 mcg tablet RxNorm: 053278 1 Tablet(s) PO daily 01/01/2018 03/31/2018 Inactive Synthroid 175 mcg tablet RxNorm: 822340 1 Tablet(s) PO daily 01/01/2018 12/31/2017 Inactive Myrbetriq 50 mg tablet,extended release RxNorm: 4534948 1 Tablet(s) PO daily 12/03/2017 01/01/2018 Inactive Zithromax Z-Oliver 250 mg tablet RxNorm: 978242 1 Tablet(s) PO UD 10/12/2017 10/16/2017 Inactive Tessalon Perles 100 mg capsule RxNorm: 178871 2 Capsule(s) PO TID as needed 10/12/2017 10/16/2017 Inactive prednisone 20 mg tablet RxNorm: 504038 2 Tablet(s) PO daily 10/12/2017 10/16/2017 Inactive cefdinir 300 mg capsule RxNorm: 531940 1 Capsule(s) PO BID 10/08/2017 10/07/2017 Inactive Synthroid 150 mcg tablet RxNorm: 390002 1 Tablet(s) PO daily in morning, except 1/2 Tablet PO Thu, Sat, take 30 minutes before meal 10/08/2017 04/04/2018 Inactive brand name only cefdinir 300 mg capsule RxNorm: 972659 1 Capsule(s) PO BID 10/08/2017 10/14/2017 Inactive Synthroid 150 mcg tablet RxNorm: 681728 1 Tablet(s) PO daily in morning, take 30 minutes before meal 10/06/2017 10/07/2017 Inactive brand name only cefdinir 300 mg capsule RxNorm: 600804 1 Capsule(s) PO BID 08/24/2017 08/30/2017 Inactive Zithromax Z-Oliver 250 mg tablet RxNorm: 814121 1 Tablet(s) PO UD 08/20/2017 08/19/2017 Inactive Zithromax Z-Oliver 250 mg tablet RxNorm: 740585 1 Tablet(s) PO UD 08/20/2017 08/24/2017 Inactive Synthroid 150 mcg tablet RxNorm: 639134 1 Tablet(s) PO daily in morning, take 30 minutes before meal 08/05/2017 08/04/2017 Inactive Synthroid 150 mcg tablet RxNorm: 478119 1 Tablet(s) PO daily in morning, take 30 minutes before meal 08/05/2017 10/05/2017 Inactive Coumadin 3 mg tablet RxNorm: 679643 1 Tablet(s) PO Thursday, , , and Sat- Managed by Dr. Bowman -Managed by Dr. Bowman 08/05/2017 05/03/2018 Inactive pantoprazole 40 mg tablet,delayed release RxNorm: 534529 1 Tablet(s) PO BID 07/08/2017 07/02/2018 Inactive pantoprazole 40 mg tablet,delayed release RxNorm: 229692 1 Tablet(s) PO BID 07/08/2017 07/07/2017 Inactive metoprolol succinate ER 100 mg tablet,extended release 24 hr RxNorm: 313689 TAKE ONE TABLET BY MOUTH ONCE DAILY 07/08/2017 01/04/2018 Inactive Coumadin 3 mg tablet RxNorm: 991752 1 Tablet(s) PO QPM -Managed by Dr. Bowman 07/06/2017 08/04/2017 Inactive Coumadin 3 mg tablet RxNorm: 553171 1 Tablet(s) PO QPM at 6:00pm Managed by Dr Bowman 1/2 pill on thursday and thursday, full pill other days 06/18/2017 07/05/2017 Inactive Voltaren 1 % topical gel RxNorm: 302602 2 TOP QID 06/18/2017 10/15/2017 Inactive Micro-K 10 10 mEq capsule,extended release RxNorm: 369903 1 Capsule(s) PO daily 05/08/2017 12/02/2017 Inactive Synthroid 137 mcg tablet RxNorm: 778196 1 Tablet(s) PO QAM 05/08/2017 08/04/2017 Inactive Dose increased 04/14/17 pravastatin 10 mg tablet RxNorm: 836367 1 Tablet(s) PO daily TAKE ONE TABLET BY MOUTH ONCE DAILY 05/08/2017 12/02/2017 Inactive losartan 25 mg tablet RxNorm: 893242 1 Tablet(s) PO daily TAKE ONE TABLET BY MOUTH ONCE DAILY 05/08/2017 06/07/2018 Inactive Namenda 10 mg tablet RxNorm: 546645 TAKE ONE TABLET BY MOUTH TWICE DAILY 05/07/2017 12/02/2017 Inactive Keflex 500 mg capsule RxNorm: 588331 1 Capsule(s) PO TID 04/27/2017 05/03/2017 Inactive Synthroid 137 mcg tablet RxNorm: 846430 1 Tablet(s) PO QAM 04/14/2017 04/13/2017 Inactive Vitamin D2 50,000 unit capsule RxNorm: 040727 1 Capsule(s) PO QW 04/14/2017 12/02/2017 Inactive Synthroid 137 mcg tablet RxNorm: 497072 1 Tablet(s) PO QAM 04/14/2017 05/07/2017 Inactive losartan 25 mg tablet RxNorm: 869696 TAKE ONE TABLET BY MOUTH ONCE DAILY 03/23/2017 05/07/2017 Inactive Synthroid 125 mcg tablet RxNorm: 661054 TAKE ONE TABLET BY MOUTH ONCE DAILY 03/12/2017 04/12/2017 Inactive ciprofloxacin 500 mg tablet RxNorm: 924973 1 Tablet(s) PO BID 2017 03/13/2017 Inactive prednisone 20 mg tablet RxNorm: 572479 2 Tablet(s) PO daily 03/03/2017 03/07/2017 Inactive tramadol 50 mg tablet RxNorm: 262123 1/2 Tablet(s) PO TID as needed 03/03/2017 12/02/2017 Inactive pravastatin 10 mg tablet RxNorm: 142067 TAKE ONE TABLET BY MOUTH ONCE DAILY 01/19/2017 05/07/2017 Inactive nortriptyline 10 mg capsule RxNorm: 612251 TAKE ONE CAPSULE BY MOUTH ONCE DAILY IN THE EVENING 01/14/2017 12/02/2017 Inactive Voltaren 1 % topical gel RxNorm: 568315 TOP QID 12/22/2016 02/19/2017 Inactive Voltaren 1 % topical gel RxNorm: 142437 TOP QID 12/22/2016 12/21/2016 Inactive prednisone 20 mg tablet RxNorm: 645719 2 Tablet(s) PO daily 12/19/2016 12/23/2016 Inactive cyclobenzaprine 5 mg tablet RxNorm: 161198 1/2 Tablet(s) PO BID as needed 12/19/2016 12/23/2016 Inactive Flector 1.3 % transdermal 12 hour patch RxNorm: 587008 1 Patch TOP every 12 hours as needed 12/19/2016 12/02/2017 Inactive losartan 25 mg tablet RxNorm: 656837 1 Tablet(s) PO daily TAKE ONE TABLET BY MOUTH ONCE DAILY 11/13/2016 03/22/2017 Inactive Namenda 10 mg tablet RxNorm: 362709 TAKE ONE TABLET BY MOUTH TWICE DAILY 10/28/2016 04/25/2017 Inactive nortriptyline 10 mg capsule RxNorm: 336795 TAKE ONE CAPSULE BY MOUTH ONCE DAILY IN THE EVENING 10/13/2016 01/10/2017 Inactive ceftriaxone 500 mg solution for injection RxNorm: 3813760 Inj 10/06/2016 10/06/2016 Inactive cefdinir 300 mg capsule RxNorm: 263094 1 Capsule(s) PO BID 10/06/2016 10/12/2016 Inactive prednisone 20 mg tablet RxNorm: 200809 2 Tablet(s) PO daily 10/06/2016 10/08/2016 Inactive ProAir RespiClick 90 mcg/actuation breath activated RxNorm: 0150961 2 INH TID x 3 days then one inhale tid x 3 days then prn shortness of breath 10/06/2016 11/04/2016 Inactive Kenalog 40 mg/mL suspension for injection RxNorm: 2834817 1 Milliliter(s) Inj 10/06/2016 10/06/2016 Inactive Myrbetriq 50 mg tablet,extended release RxNorm: 3122372 1 Tablet(s) PO daily 09/11/2016 11/12/2016 Inactive Namenda 10 mg tablet RxNorm: 133421 TAKE ONE TABLET BY MOUTH TWICE DAILY 07/25/2016 10/22/2016 Inactive hydrochlorothiazide 25 mg tablet RxNorm: 074522 1 Tablet(s) PO daily 07/25/2016 12/02/2017 Inactive Synthroid 125 mcg tablet RxNorm: 726096 TAKE ONE TABLET BY MOUTH ONCE DAILY 07/14/2016 03/10/2017 Inactive losartan 25 mg tablet RxNorm: 097045 TAKE ONE TABLET BY MOUTH ONCE DAILY 07/07/2016 11/12/2016 Inactive metoprolol succinate ER 100 mg tablet,extended release 24 hr RxNorm: 219487 1 Tablet(s) PO daily 06/16/2016 06/10/2017 Inactive nortriptyline 10 mg capsule RxNorm: 170078 Capsule(s) TAKE ONE CAPSULE BY MOUTH ONCE DAILY IN THE EVENING 06/09/2016 10/06/2016 Inactive Myrbetriq 50 mg tablet,extended release RxNorm: 0257427 1 Tablet(s) PO daily 05/21/2016 09/10/2016 Inactive doxycycline hyclate 100 mg tablet RxNorm: 879335 1 Tablet(s) PO BID 05/07/2016 05/13/2016 Inactive Carafate 100 mg/mL oral suspension RxNorm: 595276 10 Milliliter(s) PO QID 05/07/2016 12/02/2017 Inactive Kenalog 40 mg/mL suspension for injection RxNorm: 7195418 Milliliter(s) Inj 04/28/2016 04/28/2016 Inactive losartan 25 mg tablet RxNorm: 143861 TAKE ONE TABLET BY MOUTH ONCE DAILY 04/08/2016 07/06/2016 Inactive ciprofloxacin 500 mg tablet RxNorm: 052439 1 Tablet(s) PO BID 04/07/2016 04/13/2016 Inactive cyclobenzaprine 5 mg tablet RxNorm: 924031 1 Tablet(s) PO TID 04/07/2016 04/16/2016 Inactive Keflex 500 mg capsule RxNorm: 672390 1 Capsule(s) PO TID 04/03/2016 04/02/2016 Inactive Keflex 500 mg capsule RxNorm: 166870 1 Capsule(s) PO TID 04/03/2016 04/09/2016 Inactive losartan 25 mg tablet RxNorm: 635659 TAKE ONE TABLET BY MOUTH ONCE DAILY 03/06/2016 04/07/2016 Inactive nortriptyline 10 mg capsule RxNorm: 208625 TAKE ONE CAPSULE BY MOUTH ONCE DAILY IN THE EVENING 03/06/2016 06/03/2016 Inactive pravastatin 10 mg tablet RxNorm: 490822 TAKE ONE TABLET BY MOUTH ONCE DAILY 02/04/2016 01/18/2017 Inactive warfarin 4 mg tablet RxNorm: 883524 Tablet(s) PO q d except 5mg on tue 01/31/2016 06/17/2017 Inactive Myrbetriq 50 mg tablet,extended release RxNorm: 5823170 1 Tablet(s) PO daily 01/17/2016 05/15/2016 Inactive Namenda 10 mg tablet RxNorm: 330863 1 Tablet(s) PO BID 01/01/2016 06/28/2016 Inactive Myrbetriq 50 mg tablet,extended release RxNorm: 2606865 1 Tablet(s) PO daily 12/20/2015 12/20/2015 Inactive Synthroid 125 mcg tablet RxNorm: 416719 1 Tablet(s) PO daily 11/14/2015 07/10/2016 Inactive nortriptyline 10 mg capsule RxNorm: 321531 TAKE ONE CAPSULE BY MOUTH ONCE DAILY IN THE EVENING 11/05/2015 03/03/2016 Inactive Myrbetriq 50 mg tablet,extended release RxNorm: 1538003 1 Tablet(s) PO daily 10/01/2015 12/19/2015 Inactive Namenda 10 mg tablet RxNorm: 460243 1 Tablet(s) PO BID 08/30/2015 12/31/2015 Inactive Vesicare 10 mg tablet RxNorm: 327736 1 Tablet(s) PO daily 08/30/2015 09/30/2015 Inactive warfarin 4 mg tablet RxNorm: 490383 Tablet(s) PO 08/30/2015 01/30/2016 Inactive Synthroid 125 mcg tablet RxNorm: 591278 1 Tablet(s) PO daily 08/02/2015 11/13/2015 Inactive Synthroid 125 mcg tablet RxNorm: 347046 Tablet(s) PO 08/01/2015 08/01/2015 Inactive losartan 25 mg tablet RxNorm: 308629 1 Tablet(s) PO daily 07/31/2015 02/25/2016 Inactive pravastatin 10 mg tablet RxNorm: 291168 1 Tablet(s) PO daily 07/23/2015 01/18/2016 Inactive hydrochlorothiazide 25 mg tablet RxNorm: 527903 1 Tablet(s) PO daily 07/19/2015 07/12/2016 Inactive nortriptyline 10 mg capsule RxNorm: 921843 1 Capsule(s) PO QPM 07/03/2015 10/30/2015 Inactive metoprolol succinate ER 100 mg tablet,extended release 24 hr RxNorm: 678941 1 Tablet(s) PO daily 06/06/2015 05/30/2016 Inactive pravastatin 10 mg tablet RxNorm: 086255 1 Tablet(s) PO daily 01/22/2015 07/20/2015 Inactive aspirin 81 mg capsule,delayed release RxNorm: 325840 1 Capsule(s) PO daily 01/11/2015 02/09/2015 Inactive Fosamax 5 mg tablet RxNorm: 015238 1 Tablet(s) QW 01/11/2015 12/02/2017 Inactive oxybutynin chloride ER 10 mg tablet,extended release 24 hr RxNorm: 775774 1 Tablet(s) PO daily 01/11/2015 08/29/2015 Inactive Fosamax 70 mg tablet RxNorm: 327719 1 Tablet(s) PO QW No Start Date Active Claritin oral RxNorm: 12426 oral No Start Date Active Centrum oral RxNorm: oral No Start Date Active Calcium 600 + D(3) oral RxNorm: 860820 oral No Start Date Active Coumadin 4 mg tablet RxNorm: 032659 1 Tablet(s) PO daily on M,W,F No Start Date 06/07/2018 Inactive Vitamin D3 oral RxNorm: oral No Start Date 06/16/2018 Inactive pravastatin 10 mg tablet RxNorm: 127782 1 Tablet(s) PO daily No Start Date 01/21/2015 Inactive Aspirin Low Dose 81 mg tablet,delayed release RxNorm: 575493 1 Tablet(s) PO BIW on Thursday and Thursday No Start Date 06/16/2018 Inactive Tylenol PM oral RxNorm: 541171 oral No Start Date 04/07/2017 Inactive Vitamin D2 oral RxNorm: 4018 oral No Start Date 06/08/2018 Inactive Vitamin D2 50,000 unit capsule RxNorm: 640697 1 Capsule(s) PO QW No Start Date 04/13/2017 Inactive tramadol 50 mg tablet RxNorm: 739639 1 Tablet(s) PO TID as needed No Start Date 03/16/2018 Inactive Colace 100 mg capsule RxNorm: 0338541 Capsule(s) PO No Start Date 06/07/2018 Inactive furosemide 40 mg tablet RxNorm: 723529 1 Tablet(s) PO daily as needed No Start Date 07/12/2018 Inactive biotin oral RxNorm: oral No Start Date 06/16/2018 Inactive Micro-K 10 10 mEq capsule,extended release RxNorm: 776968 1 Capsule(s) PO daily No Start Date 05/07/2017 Inactive Synthroid 100 mcg tablet RxNorm: 578863 Tablet(s) PO No Start Date 07/31/2015 Inactive Vitamin B-12 oral RxNorm: oral No Start Date 06/16/2018 Inactive PreserVision AREDS 2 oral RxNorm: 2064509 oral No Start Date 06/07/2018 Inactive hydrochlorothiazide 25 mg tablet RxNorm: 316064 1 Tablet(s) PO daily No Start Date 07/18/2015 Inactive warfarin 2 mg tablet RxNorm: 548328 Tablet(s) PO No Start Date 08/29/2015 Inactive metoprolol succinate ER 100 mg tablet,extended release 24 hr RxNorm: 561382 1 Tablet(s) PO daily No Start Date 06/05/2015 Inactive warfarin 3 mg tablet RxNorm: 680204 Tablet(s) PO No Start Date 08/29/2015 Inactive Coumadin 3 mg tablet RxNorm: 046415 1 Tablet(s) PO QPM at 6:00pm Managed by Dr Bowman No Start Date 06/17/2017 Inactive Myrbetriq 50 mg tablet,extended release RxNorm: 0239140 1 Tablet(s) PO daily No Start Date 08/23/2018 Inactive Medication Administered Medication Codes Instructions Start Date Status Kenalog 40 mg/mL suspension for injection RxNorm: 8702932 2Milliliter 03/12/2018 No longer Active ceftriaxone 500 mg solution for injection RxNorm: 2921600 02/08/2018 No longer Active Kenalog 40 mg/mL suspension for injection RxNorm: 2485548 1Milliliter 10/06/2016 No longer Active ceftriaxone 500 mg solution for injection RxNorm: 9879276 10/06/2016 No longer Active Kenalog 40 mg/mL suspension for injection RxNorm: 7087882 Milliliter 04/28/2016 No longer Active Immunizations Vaccine [...] Localized edema ICD-10: R60.0 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-9: 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 ICD-9: [...] NO Growth Day 2 05/27/2018 Comp Metabolic Bbw631 NA 142 mEq/L 05/24/2018 Comp Metabolic Vbn417 K 4.0 mEq/L 05/24/2018 Comp Metabolic Qym948 CL 104 mEq/L 05/24/2018 Comp Metabolic Hpl868 CO2 30.0 mEq/L 05/24/2018 Comp Metabolic Owg160 ANION GAP 12 05/24/2018 Comp Metabolic Udx097 GLUCOSE 94 mg/dL 05/24/2018 Comp Metabolic Sap722 Creat 0.6 mg/dL 05/24/2018 Comp Metabolic Iqh233 eGFR 97 ml/min/1.73m2 05/24/2018 Comp Metabolic Mfb519 BUN 12 mg/dL 05/24/2018 Comp Metabolic Bzl748 B/C Ratio 19.4 Ratio 05/24/2018 Comp Metabolic Sdx606 CALCIUM 8.8 mg/dL 05/24/2018 Comp Metabolic Aae348 ALK PHOS 135 U/L 05/24/2018 Comp Metabolic Otc644 AST(SGOT) 18 U/L 05/24/2018 Comp Metabolic Jqt907 ALT(SGPT) 16 U/L 05/24/2018 Comp Metabolic Icc782 BILI T 0.4 mg/dL 05/24/2018 Comp Metabolic Sjp422 ALBUMIN 3.9 g/dL 05/24/2018 Comp Metabolic Rbo163 TPRO 6.0 g/dL 05/24/2018 Comp Metabolic Ecb152 GLOB 2.1 g/dL 05/24/2018 Comp Metabolic Gjk406 A/G Ratio 1.8 Ratio 05/24/2018 Comp Metabolic Tug247 Osmo 283 mOsmo 05/24/2018 Pt Cum1000 PT 28.2 seconds 05/24/2018 Pt Ulv2907 INR 2.6 05/24/2018 Pt Axs9929 Low Intensity - 1.5-2.0 05/24/2018 Pt Pgn1404 Mod intensity - 2.0-3.0 05/24/2018 Pt Mfx0656 Hi intensity - 3.0-4.0 05/24/2018 Cbc With [...] 29.7 pg 05/24/2018 Cbc With Differential Ord2 Woodward% 7.0 % 05/24/2018 Cbc With Differential Ord2 [...] 1.54 K/ul 05/24/2018 Cbc With Differential Ord2 Woodward ABS# 0.5 K/ul 05/24/2018 Cbc With Differential Ord2 Eos ABS# 0.4 K/ul 05/24/2018 Cbc With Differential Ord2 Baso ABS# 0.0 K/ul 05/24/2018 Tsh Ord6 TSH (3rd IS) 3.19 uIU/mL 10/06/2017 Free T4 Zoz877 FREE T4 1.64 ng/dL 10/06/2017 Free T4 Tnc368 FREE T4 1.03 ng/dL 08/05/2017 Tsh Ord6 [...] Ord30 C/HDL 3.7 Ratio 04/09/2017 Free T4 Gke768 FREE T4 0.97 ng/dL 04/09/2017 Tibc Ord40 Iron 36 ug/dl 04/09/2017 Tibc Ord40 UIBC 281 ug/dL 04/09/2017 Tibc Ord40 TIBC 317 ug/dL 04/09/2017 Tibc Ord40 Fe-%Sat 11.4 % 04/09/2017 Comp Metabolic Ngz666 NA 136 mEq/L 04/09/2017 Comp Metabolic Ubr873 K 3.9 mEq/L 04/09/2017 Comp Metabolic Uiw623 CL 98 mEq/L 04/09/2017 Comp Metabolic Wcm177 CO2 28.0 mEq/L 04/09/2017 Comp Metabolic Sht326 ANION GAP 14 04/09/2017 Comp Metabolic Rjv082 GLUCOSE 90 mg/dL 04/09/2017 Comp Metabolic Zot566 Creat 0.6 mg/dL 04/09/2017 Comp Metabolic Spb833 eGFR 102 ml/min/1.73m2 04/09/2017 Comp Metabolic Rru923 BUN 9 mg/dL 04/09/2017 Comp Metabolic Lwb564 B/C Ratio 15.3 Ratio 04/09/2017 Comp Metabolic Wjk591 CALCIUM 8.8 mg/dL 04/09/2017 Comp Metabolic Xrf373 ALK PHOS 102 U/L 04/09/2017 Comp Metabolic Djn250 AST(SGOT) 18 U/L 04/09/2017 Comp Metabolic Elo782 ALT(SGPT) 14 U/L 04/09/2017 Comp Metabolic Und703 BILI T 0.4 mg/dL 04/09/2017 Comp Metabolic Ain993 ALBUMIN 3.9 g/dL 04/09/2017 Comp Metabolic Gnl141 TPRO 6.3 g/dL 04/09/2017 Comp Metabolic Ntw242 GLOB 2.4 g/dL 04/09/2017 Comp Metabolic Xbc094 A/G Ratio 1.7 Ratio 04/09/2017 Comp Metabolic Ucb720 Osmo 270 mOsmo 04/09/2017 Vitamin D 25 Oh Vbm3783 VITAMIN D, 25 HYDROXY 34.31 ng/mL 04/09/2017 [...] 28.9 pg 04/09/2017 Cbc With Differential Ord2 Woodward% 8.8 % 04/09/2017 Cbc With Differential Ord2 [...] 1.22 K/ul 04/09/2017 Cbc With Differential Ord2 [place]ward ABS# 0.7 K/ul 04/09/2017 Cbc With Differential Ord2 Eos ABS# 0.1 K/ul 04/09/2017 Cbc With Differential Ord2 Baso ABS# 0.0 K/ul 04/09/2017 Urine Culture Ucult Complete >100,000 col/ml aerobic growth sent to ref lab 03/05/2017 Pt Vtb7725 PT 24.2 seconds 04/14/2016 Pt Nth3873 INR 2.3 04/14/2016 Pt Yss2026 Low Intensity - 1.5-2.0 04/14/2016 Pt Hjf7453 Mod intensity - 2.0-3.0 04/14/2016 Pt Prm0735 Hi intensity - 3.0-4.0 04/14/2016 Pt Sgl9287 PT 31.3 seconds 04/10/2016 Pt Uhc2797 INR 3.3 04/10/2016 Pt Aul3833 Low Intensity - 1.5-2.0 04/10/2016 Pt Wtk4113 Mod intensity - 2.0-3.0 04/10/2016 Pt Yyy2963 Hi intensity - 3.0-4.0 04/10/2016 C RAP A SC [id number] Strep A Negative 04/10/2016 Urine Culture Ucult Complete >100,000 col/ml aerobic growth sent to ref lab 04/04/2016 Comp Metabolic Pel098 NA 136 mEq/L 04/03/2016 Comp Metabolic Dhn230 K 3.9 mEq/L 04/03/2016 Comp Metabolic Uzy339 CL 99 mEq/L 04/03/2016 Comp Metabolic Kvj534 CO2 32.0 mEq/L 04/03/2016 Comp Metabolic Znq421 ANION GAP 9 04/03/2016 Comp Metabolic Iqj975 GLUCOSE 88 mg/dL 04/03/2016 Comp Metabolic Qpd145 Creat 0.6 mg/dL 04/03/2016 Comp Metabolic Apm903 eGFR 93 ml/min/1.73m2 04/03/2016 Comp Metabolic Vys262 BUN 15 mg/dL 04/03/2016 Comp Metabolic Gqo037 B/C Ratio 23.4 Ratio 04/03/2016 Comp Metabolic Wyk568 CALCIUM 8.7 mg/dL 04/03/2016 Comp Metabolic Gab818 ALK PHOS 100 U/L 04/03/2016 Comp Metabolic Fiu348 AST(SGOT) 28 U/L 04/03/2016 Comp Metabolic Fka522 ALT(SGPT) 39 U/L 04/03/2016 Comp Metabolic Jhf366 BILI T 0.5 mg/dL 04/03/2016 Comp Metabolic Bor156 ALBUMIN 4.1 g/dL 04/03/2016 Comp Metabolic Mqb581 TPRO 6.6 g/dL 04/03/2016 Comp Metabolic Prm632 GLOB 2.5 g/dL 04/03/2016 Comp Metabolic Xub901 A/G Ratio 1.7 Ratio 04/03/2016 Comp Metabolic Xrv330 Osmo 272 mOsmo 04/03/2016 Cbc With Differential [...] 29.0 pg 04/03/2016 Cbc With Differential Ord2 Woodward% 11.3 % 04/03/2016 Cbc With Differential Ord2 [...] 1.15 K/ul 04/03/2016 Cbc With Differential Ord2 [place] ABS# 0.8 K/ul 04/03/2016 Cbc With Differential Ord2 Eos ABS# 0.2 K/ul 04/03/2016 Cbc With Differential Ord2 Baso ABS# 0.0 K/ul 04/03/2016 Tsh Ord6 hTSH II 3.06 uIU/mL 04/03/2016 Free T4 Eox724 FREE T4 0.99 ng/dL 04/03/2016 Free T4 Pls701 FREE T4 0.81 ng/dL 07/31/2015 Comp Metabolic Irr956 NA 136 mEq/L 07/31/2015 Comp Metabolic Hmw780 K 3.8 mEq/L 07/31/2015 Comp Metabolic Urj913 CL 97 mEq/L 07/31/2015 Comp Metabolic Bfp179 CO2 29.0 mEq/L 07/31/2015 Comp Metabolic Azo197 ANION GAP 14 07/31/2015 Comp Metabolic Rfw823 GLUCOSE 90 mg/dL 07/31/2015 Comp Metabolic Gwg054 Creat 0.7 mg/dL 07/31/2015 Comp Metabolic Zdx900 eGFR 80 ml/min/1.73m2 07/31/2015 Comp Metabolic Kab146 BUN 8 mg/dL 07/31/2015 Comp Metabolic Srx616 B/C Ratio 11.0 Ratio 07/31/2015 Comp Metabolic Umx970 CALCIUM 8.9 mg/dL 07/31/2015 Comp Metabolic Dri132 ALK PHOS 102 U/L 07/31/2015 Comp Metabolic Vjr341 AST(SGOT) 22 U/L 07/31/2015 Comp Metabolic Osp275 ALT(SGPT) 14 U/L 07/31/2015 Comp Metabolic Ytl803 BILI T 0.5 mg/dL 07/31/2015 Comp Metabolic Ser564 ALBUMIN 4.4 g/dL 07/31/2015 Comp Metabolic Azz599 TPRO 6.7 g/dL 07/31/2015 Comp Metabolic Mbm048 GLOB 2.3 g/dL 07/31/2015 Comp Metabolic Jwb229 A/G Ratio 1.9 Ratio 07/31/2015 Comp Metabolic Buw006 Osmo 270 mOsmo 07/31/2015 Tsh Ord6 hTSH [...] Lipid Ord30 C/HDL 4.8 Ratio 07/31/2015 Pt Ffx9670 PT 31.9 seconds 07/03/2015 Pt Nrm3331 INR 3.2 07/03/2015 Pt Pjl7872 Low Intensity - 1.5-2.0 07/03/2015 Pt Ltx6503 Mod intensity - 2.0-3.0 07/03/2015 Pt Fbi4554 Hi intensity - 3.0-4.0 07/03/2015 Review of [...] Codes Date URINALYSIS NONAUTO W/O SCOPE CPT-4: 18877 11/01/2018 PPPS, SUBSEQ VISIT CPT- 4: G0439 06/08/2018 URINALYSIS NONAUTO W/O SCOPE CPT-4: 30953 05/25/2018 ADMIN INFLUENZA VIRUS VAC CPT-4: G0008 05/20/2018 FLU VACC PRSV FREE INC ANTIG CPT-4: 36497 05/20/2018 DRAIN/INJECT JOINT/BURSA CPT-4: 93438 03/23/2018 TRIAMCINOLONE ACET INJ NOS CPT-4: J3301 03/23/2018 DRAIN/INJECT JOINT/BURSA CPT-4: 68684 03/12/2018 TRIAMCINOLONE ACET INJ NOS CPT-4: J3301 03/12/2018 ROCEPHIN, PER 250 MG CPT- 4: J0696 02/08/2018 ADMIN INFLUENZA VIRUS VAC CPT-4: G0008 06/18/2017 FLU VACC PRSV FREE INC ANTIG CPT-4: 76021 06/18/2017 URINALYSIS NONAUTO W/O SCOPE CPT-4: 64079 04/27/2017 URINALYSIS NONAUTO W/O SCOPE CPT-4: 47489 2017 DRAIN/INJECT JOINT/BURSA CPT-4: 23774 03/03/2017 TRIAMCINOLONE ACET INJ NOS CPT-4: J3301 03/03/2017 TRIAMCINOLONE ACET INJ NOS CPT-4: J3301 10/06/2016 ROCEPHIN, PER 250 MG CPT- 4: J0696 10/06/2016 THER/PROPH/DIAG INJ SC/IM CPT-4: 93701 10/06/2016 TRIAMCINOLONE ACET INJ NOS CPT-4: J3301 04/28/2016 URINALYSIS NONAUTO W/O SCOPE CPT-4: 60878 04/03/2016 ADMIN INFLUENZA VIRUS VAC CPT-4: G0008 07/03/2015 FLU VACC PRSV FREE INC ANTIG CPT-4: 06787 07/03/2015 Vital Signs Date Vital 12/21/2018 Blood Pressure 1: 162/82 Code: 8480-6 Heart Rate 1: 80 bpm Height: SpO2: 94% Weight: 11/23/2018 Blood Pressure 1: 134/78 Code: 8480-6 BMI: 27.4 Code: 25811-6 Heart Rate 1: 88 bpm Height: 5'6" Weight: 170 lbs 11/01/2018 Blood Pressure 1: 132/85 Code: 8480-6 BMI: 27.3 Code: 32396-5 Height: 5'6" Weight: 169 lbs 09/30/2018 Blood Pressure 1: 142/80 Code: 8480-6 BMI: 27.3 Code: 84174-5 Heart Rate 1: 84 bpm Height: 5'6" SpO2: 96% Weight: 169 lbs 07/20/2018 Blood Pressure 1: 124/70 Code: 8480-6 Heart Rate 1: 76 bpm Height: SpO2: 95% Weight: 06/29/2018 Blood Pressure 1: 142/80 Code: 8480-6 BMI: 27.8 Code: 65454-7 Heart Rate 1: 89 bpm Height: 5'6" SpO2: 94% Weight: 172 lbs 06/08/2018 Blood Pressure 1: 144/66 Code: 8480-6 BMI: 27.9 Code: 09520-9 Heart Rate 1: 85 bpm Height: 5'6" SpO2: 97% Waist Measure (cm): 97 cm Weight: 173 lbs 05/24/2018 Blood Pressure 1: 128/72 Code: 8480-6 BMI: 27.9 Code: 82845-9 Heart Rate 1: 82 bpm Height: 5'6" SpO2: 92% Weight: 173 lbs 04/06/2018 Blood Pressure 1: 138/88 Code: 8480-6 Heart Rate 1: 86 bpm Height: SpO2: 96% Weight: 03/23/2018 Blood Pressure 1: 150/88 Code: 8480-6 Heart Rate 1: 80 bpm Height: SpO2: 96% Weight: 03/12/2018 Heart Rate 1: 90 bpm Height: Weight: 03/02/2018 Blood Pressure 1: 128/80 Code: 8480-6 BMI: 28.4 Code: 45956-2 Heart Rate 1: 83 bpm Height: 5'6" SpO2: 93% Weight: 176 lbs 02/08/2018 Blood Pressure 1: 142/80 Code: 8480-6 Heart Rate 1: 78 bpm Height: 5'6" SpO2: 94% 12/03/2017 Blood Pressure 1: 124/78 Code: 8480-6 BMI: 27.9 Code: 44303-7 Heart Rate 1: 70 bpm Height: 5'6" SpO2: 97% Weight: 173 lbs 10/27/2017 Blood Pressure 1: 126/60 Code: 8480-6 Heart Rate 1: 65 bpm Height: 5'6" SpO2: 98% Weight: 10/12/2017 Blood Pressure 1: 126/74 Code: 8480-6 BMI: 26.0 Code: 29207-2 Heart Rate 1: 80 bpm Height: 5'6" SpO2: 89% Weight: 161 lbs 10/06/2017 Blood Pressure 1: 126/70 Code: 8480-6 BMI: 27.2 Code: 94429-3 Heart Rate 1: 73 bpm Height: 5'6" SpO2: 97% Weight: 168 lbs 8 oz 08/05/2017 Blood Pressure 1: 152/78 Code: 8480-6 BMI: 27.1 Code: 81091-2 Heart Rate 1: 73 bpm Height: 5'6" SpO2: 98% Weight: 168 lbs 07/06/2017 Blood Pressure 1: 148/70 Code: 8480-6 BMI: 26.6 Code: 88927-6 Heart Rate 1: 80 bpm Height: 5'6" SpO2: 97% Weight: 165 lbs 06/18/2017 Blood Pressure 1: 132/68 Code: 8480-6 BMI: 26.8 Code: 23895-1 Heart Rate 1: 84 bpm Height: 5'6" [...] 1: 162/84 Code: 8480-6 BMI: 28.1 Code: 47553-5 Heart Rate 1: 98 bpm Height: 5'6" SpO2: 97% Weight: 174 lbs 03/03/2017 Blood Pressure 1: 154/88 Code: 8480-6 Heart Rate 1: 96 bpm Height: SpO2: 95% Weight: 01/05/2017 Blood Pressure 1: 142/78 Code: 8480-6 BMI: 28.9 Code: 15436-0 Heart Rate 1: 94 bpm Height: 5'6" SpO2: 95% Weight: 179 lbs 12/19/2016 Blood Pressure 1: 130/74 Code: 8480-6 Heart Rate 1: 91 bpm Height: 5'6" SpO2: 97% Weight: 11/13/2016 Blood Pressure 1: 152/82 Code: 8480-6 BMI: 28.4 Code: 86724-9 Heart Rate 1: 85 bpm Height: 5'6" SpO2: 96% Weight: 176 lbs 10/16/2016 Blood Pressure 1: 148/72 Code: 8480-6 BMI: 28.4 Code: 71051-3 Heart Rate 1: 90 bpm Height: 5'6" SpO2: 96% Weight: 176 lbs 10/06/2016 Blood Pressure 1: 150/80 Code: 8480-6 BMI: 28.4 Code: 28392-9 Heart Rate 1: 76 bpm Height: 5'6" SpO2: 97% Weight: 176 lbs 07/02/2016 Blood Pressure 1: 142/78 Code: 8480-6 BMI: 27.8 Code: 36072-6 Heart Rate 1: 85 bpm Height: 5'6" SpO2: 97% Weight: 172 lbs 05/21/2016 Blood Pressure 1: 166/80 Code: 8480-6 BMI: 27.9 Code: 03467-8 Heart Rate 1: 79 bpm Height: 5'6" SpO2: 98% Weight: 173 lbs 05/07/2016 Blood Pressure 1: 140/70 Code: 8480-6 BMI: 27.9 Code: 90006-6 Heart Rate 1: 82 bpm Height: 5'6" SpO2: 96% Weight: 173 lbs 04/28/2016 Blood Pressure 1: 128/86 Code: 8480-6 BMI: 27.4 Code: 54856-4 Heart Rate 1: 86 bpm Height: 5'6" SpO2: 96% Temperature: 36.1 (C) / 97.0 (F) Weight: 170 lbs 04/07/2016 Blood Pressure 1: 150/80 Code: 8480-6 Heart Rate 1: 94 bpm Height: SpO2: 95% Weight: 04/03/2016 Blood Pressure 1: 122/76 Code: 8480-6 BMI: 27.4 Code: 39574-7 Heart Rate 1: 84 bpm Height: 5'6" SpO2: 94% Weight: 170 lbs 01/31/2016 Blood Pressure 1: 124/82 Code: 8480-6 BMI: 27.8 Code: 78244-4 Heart Rate 1: 100 bpm Height: 5'6" SpO2: 97% Weight: 172 lbs 11/29/2015 Blood Pressure 1: 140/82 Code: 8480-6 Blood Pressure 1: 130/84 Code: 8480-6 BMI: 27.4 Code: 61131-8 Heart Rate 1: 97 bpm Height: 5'6" SpO2: 95% Weight: 170 lbs 10/01/2015 Blood Pressure 1: 130/80 Code: 8480-6 BMI: 27.4 Code: 42820-1 Heart Rate 1: 82 bpm Height: 5'6" SpO2: 97% Weight: 170 lbs 08/30/2015 Blood Pressure 1: 120/68 Code: 8480-6 BMI: 27.6 Code: 52549-1 Heart Rate 1: 91 bpm Height: 5'6" SpO2: 96% Weight: 171 lbs 07/31/2015 Blood Pressure 1: 180/80 Code: 8480-6 BMI: 27.4 Code: 17743-2 Heart Rate 1: 60 bpm Height: 5'6" SpO2: 94% Weight: 170 lbs 07/03/2015 Blood Pressure 1: 154/80 Code: 8480-6 BMI: 27.4 Code: 16592-7 Heart Rate 1: 98 bpm Height: 5'6" SpO2: 95% Weight: 170 lbs 04/10/2015 Blood Pressure 1: 138/72 Code: 8480-6 BMI: 27.8 Code: 51639-2 Heart Rate 1: 82 bpm Height: 5'6" SpO2: 98% Weight: 172 lbs 01/11/2015 Blood Pressure 1: 132/74 Code: 8480-6 BMI: 28.6 Code: 29597-4 Heart Rate 1: 88 bpm Height: 5'6" [...] R10.2] [facility] CPT- 4: 20604 12/21/2018 [id number] EST. PATIENT, LEVEL III Diagnosis: Chronic systolic (congestive) heart failure[ICD10: I50.22] Diagnosis: Essential (primary) hypertension[ICD10: I10] Diagnosis: Hypoxemia[ICD10: R09.02] [facility] CPT-4: 39711 11/23/2018 ([id number]) 66005 EST. PATIENT, LEVEL III Diagnosis: Dysuria[ICD10: R30.0] Diagnosis: Other specified noninflammatory disorders of vagina[ICD10: N89.8] [facility] CPT-4: 16964 11/01/2018 ([id number] 20268 EST. PATIENT, LEVEL IV Diagnosis: Essential (primary) hypertension[ICD10: I10] Diagnosis: Atrophy of thyroid (acquired)[ICD10: E03.4] Carleen Anaya MD, [facility] CPT-4: 51983 09/30/2018 ([id number]) 27015 EST. PATIENT, LEVEL III Diagnosis: Atrophy of thyroid (acquired)[ICD10: E03.4] Diagnosis: Essential (primary) hypertension[ICD10: I10] Carleen Anaya MD, [facility] CPT-4: 67935 07/20/2018 ([id number]) 12366 EST. PATIENT, LEVEL IV Diagnosis: Essential (primary) hypertension[ICD10: I10] Diagnosis: Atrophy of thyroid (acquired)[ICD10: E03.4] Diagnosis: Other fatigue[ICD10: R53.83] Diagnosis: Other insomnia[ICD10: G47.09] Carleen Anaya MD, [facility] CPT-4: 17462 06/29/2018 ([id number]) 85195 EST. 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 PATIENT, LEVEL III Diagnosis: Lumbago with sciatica, right side[ICD10: M54.41] Diagnosis: Sciatica, right side[ICD10: M54.31] Carleen Anaya MD, [facility] CPT- 4: 89301 04/06/2018 ([id number]) 11783 EST. PATIENT, LEVEL III Diagnosis: Lumbago with sciatica, right side[ICD10: M54.41] Diagnosis: Sciatica, right side[ICD10: M54.31] Carleen Anaya MD, [facility] CPT- 4: 36402 03/23/2018 34031 EST. PATIENT, LEVEL III Diagnosis: Low back pain[ICD10: M54.5] Diagnosis: Sacroiliitis, not elsewhere classified[ICD10: M46.1] Wendi Anaya MD, [facility] CPT-4: 12744 03/12/2018 ([id number]) 39143 EST. PATIENT, LEVEL IV Diagnosis: Atrophy of thyroid (acquired)[ICD10: E03.4] Diagnosis: Essential (primary) hypertension[ICD10: I10] Diagnosis: Urge incontinence[ICD10: N39.41] Carleen Anaya MD, [facility] CPT-4: 03566 03/02/2018 ([id number]) 44178 EST. PATIENT, LEVEL III Diagnosis: Cellulitis of face[ICD10: L03.211] Mimi Anaya MD, [facility] CPT- 4: 41705 02/08/2018 ([id number]) 45124 EST. PATIENT, LEVEL IV Diagnosis: Atrophy of thyroid (acquired)[ICD10: E03.4] Diagnosis: Essential (primary) hypertension[ICD10: I10] Diagnosis: Urge incontinence[ICD10: N39.41] Carleen Anaya MD, [facility] CPT-4: 67511 12/03/2017 06425 EST. PATIENT, LEVEL IV Diagnosis: Essential (primary) hypertension[ICD10: I10] Diagnosis: Weakness[ICD10: R53.1] Diagnosis: Low back pain[ICD10: M54.5] Diagnosis: Other allergic rhinitis[ICD10: J30.89] Wendi Anaya MD, [facility] CPT- 4: 66304 10/27/2017 37168 EST. PATIENT, LEVEL IV Diagnosis: Pneumonia due to other specified bacteria[ICD10: J15.8] Diagnosis: Chronic systolic (congestive) heart failure[ICD10: I50.22] Wendi Anaya MD, [facility] CPT-4: 54665 10/12/2017 ([id number]) 67378 EST. PATIENT, LEVEL IV Diagnosis: Atrophy of thyroid (acquired)[ICD10: E03.4] Diagnosis: Nonscarring hair loss, unspecified[ICD10: L65.9] Diagnosis: Essential (primary) hypertension[ICD10: I10] Carleen Anaya MD, [facility] CPT-4: 76442 10/06/2017 ([id number]) 76019 EST. PATIENT, LEVEL IV Diagnosis: Atrophy of thyroid (acquired)[ICD10: E03.4] Diagnosis: Essential (primary) hypertension[ICD10: I10] Diagnosis: Localized edema[ICD10: R60.0] Carleen Anaya MD, [facility] CPT-4: 74332 08/05/2017 ([id number]) 81336 EST. PATIENT, LEVEL IV Diagnosis: Essential (primary) hypertension[ICD10: I10] Diagnosis: Weakness[ICD10: R53.1] Diagnosis: Other fecal abnormalities[ICD10: R19.5] Carleen Anaya MD, [facility] CPT-4: 06525 07/06/2017 ([id number]) 15023 EST. 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 PATIENT, LEVEL IV Diagnosis: Pain in right shoulder[ICD10: M25.511] Diagnosis: Weakness[ICD10: R53.1] Diagnosis: Other fatigue[ICD10: R53.83] Diagnosis: Other malaise[ICD10: R53.81] Wendi Anaya MD, [facility] CPT-4: 01033 05/11/2017 ([id number]) Miscellaneous no charge Diagnosis: Essential (primary) hypertension[ICD10: I10] [facility] CPT-4: 08456 04/30/2017 ([id number]) 55177 EST. PATIENT, LEVEL III Diagnosis: Acute recurrent maxillary sinusitis[ICD10: J01.01] Diagnosis: Urinary tract infection, site not specified[ICD10: N39.0] Mimi Anaya MD, [facility] CPT-4: 51685 04/27/2017 ([id number]) 85534 EST. PATIENT, LEVEL IV Diagnosis: Atrophy of thyroid (acquired)[ICD10: E03.4] Diagnosis: Essential (primary) hypertension[ICD10: I10] Diagnosis: Iron deficiency[ICD10: E61.1] Diagnosis: Other specified heart block[ICD10: I45.5] Carleen Anaya MD, [facility] CPT-4: 38524 04/08/2017 90573 EST. PATIENT, LEVEL III Diagnosis: Low back pain[ICD10: M54.5] Diagnosis: Sacroiliitis, not elsewhere classified[ICD10: M46.1] Wendi Anaya MD, [facility] CPT-4: 61370 03/03/2017 ([id number]) 75110 EST. PATIENT, LEVEL IV Diagnosis: Essential (primary) hypertension[ICD10: I10] Diagnosis: Atrophy of thyroid (acquired)[ICD10: E03.4] Diagnosis: Vascular dementia without behavioral disturbance[ICD10: F01.50] Carleen Anaya MD, [facility] CPT-4: 21728 01/05/2017 73989 EST. PATIENT, LEVEL III Diagnosis: Cervicalgia[ICD10: M54.2] Diagnosis: Other muscle spasm[ICD10: M62.838] Wendi Anaya MD, [facility] CPT-4: 86962 12/19/2016 ([id number]) 99447 EST. PATIENT, LEVEL III Diagnosis: Essential (primary) hypertension[ICD10: I10] Diagnosis: Gastro-esophageal reflux disease without esophagitis[ICD10: K21.9] Carleen Anaya MD, [facility] CPT-4: 59029 11/13/2016 ([id number]) 50847 EST. PATIENT, LEVEL III Diagnosis: Pain in right shoulder[ICD10: M25.511] Diagnosis: Insomnia due to medical condition[ICD10: G47.01] Carleen Anaya MD, [facility] CPT-4: 10336 10/16/2016 ([id number]) 99542 EST. PATIENT, LEVEL IV Diagnosis: Pneumonia due to other specified bacteria[ICD10: J15.8] Diagnosis: Pain in right shoulder[ICD10: M25.511] Diagnosis: Cough[ICD10: R05] Carleen Anaya MD, [facility] CPT-4: 01053 10/06/2016 ([id number]) 92358 EST. PATIENT, LEVEL IV Diagnosis: Essential (primary) hypertension[ICD10: I10] Diagnosis: Personal history of other specified conditions[ICD10: Z87.898] Diagnosis: Unsteadiness on feet[ICD10: R26.81] Carleen Anaya MD, [facility] CPT- 4: 28260 07/02/2016 ([id number]) 09705 EST. PATIENT, LEVEL IV Diagnosis: Dysphagia, pharyngeal phase[ICD10: R13.13] Diagnosis: Urge incontinence[ICD10: N39.41] Diagnosis: Gastro-esophageal reflux disease without esophagitis[ICD10: K21.9] Carleen Anaya MD, [facility] CPT-4: 82971 05/21/2016 ([id number]) 58420 EST. PATIENT, LEVEL III Diagnosis: Gastro-esophageal reflux disease without esophagitis[ICD10: K21.9] Carleen Anaya MD, [facility] CPT-4: 61051 05/07/2016 ([id number]) 24860 EST. PATIENT, LEVEL III Diagnosis: Acute laryngopharyngitis[ICD10: J06.0] Diagnosis: Dysphagia, pharyngeal phase[ICD10: R13.13] Diagnosis: Allergic rhinitis due to pollen[ICD10: J30.1] Mimi Anaya MD, [facility] CPT-4: 65214 04/28/2016 ([id number]) Miscellaneous no charge Diagnosis: Acute laryngopharyngitis[ICD10: J06.0] Wendi Anaya MD, [facility] CPT- 4: 47658 04/10/2016 07200 EST. 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 PATIENT, LEVEL IV Diagnosis: Essential (primary) hypertension[ICD10: I10] Diagnosis: Hypothyroidism, unspecified[ICD10: E03.9] Diagnosis: Other fatigue[ICD10: R53.83] Diagnosis: Urge incontinence[ICD10: N39.41] Mimi Anaya MD, [facility] CPT- 4: 49471 04/03/2016 ([id number]) 50718 EST. PATIENT, LEVEL IV Diagnosis: Essential (primary) hypertension[ICD10: I10] Diagnosis: Pain in right ankle and joints of right foot[ICD10: M25.571] Diagnosis: Dizziness and giddiness[ICD10: R42] Diagnosis: Tinnitus, bilateral[ICD10: H93.13] Mimi Anaya MD, [facility] CPT- 4: 61146 01/31/2016 ([id number]) 74782 EST. PATIENT, LEVEL IV Diagnosis: Essential (primary) hypertension[ICD10: I10] Diagnosis: Otalgia, right ear[ICD10: H92.01] Diagnosis: Allergic rhinitis due to pollen[ICD10: J30.1] Diagnosis: Hypothyroidism, unspecified[ICD10: E03.9] Mimi Anaya MD, [facility] CPT-4: 09769 11/29/2015 ([id number]) 30420 EST. PATIENT, LEVEL IV Diagnosis: Essential (primary) hypertension[ICD10: I10] Diagnosis: Urge incontinence[ICD10: N39.41] Diagnosis: Unspecified dementia without behavioral disturbance[ICD10: F03.90] Mimi Anaya MD, [facility] CPT-4: 12006 10/01/2015 ([id number]) 94196 EST. PATIENT, LEVEL IV Diagnosis: Essential (primary) hypertension[ICD10: I10] Diagnosis: Hypothyroidism, unspecified[ICD10: E03.9] Diagnosis: Unspecified dementia without behavioral disturbance[ICD10: F03.90] Diagnosis: Urge incontinence[ICD10: N39.41] Mimi Anaya MD, [facility] CPT- 4: 03709 08/30/2015 ([id number]) 86645 EST. PATIENT, LEVEL IV Diagnosis: Essential (primary) hypertension[ICD10: I10] Diagnosis: Hypothyroidism, unspecified[ICD10: E03.9] Diagnosis: Hyperlipidemia, unspecified[ICD10: E78.5] Carleen Anaya MD, [facility] CPT-4: 12628 07/31/2015 ([id number]) 73695 EST. PATIENT, LEVEL IV Diagnosis: Essential (primary) hypertension[ICD10: I10] Diagnosis: alf (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 of anticoagulants[ICD10: Z79.01] Diagnosis: Dizziness and giddiness[ICD10: R42] MIRTA Hussein MD CPT- 4: 94256 07/03/2015 ([id number]) 21737 EST. PATIENT, LEVEL IV Diagnosis: ESSENTIAL HYPERTENSION[ICD9: 401.9] Diagnosis: MACULAR DEGENERATION[ICD9: 362.50] Diagnosis: Peripheral vascular disease[ICD9: 443.9] Diagnosis: Neuropathy[ICD9: 355.9] MIRTA Hussein MD CPT-4: 46889 04/10/2015 ([id number]) OFFICE/OUTPATIENT VISIT NEW Diagnosis: ESSENTIAL HYPERTENSION[ICD9: 401.9] Diagnosis: HYPOTHYROIDISM[ICD9: 244.9] Diagnosis: URGE INCONTINENCE[ICD9: 788.31] Diagnosis: Constipation - functional[ICD9: 564.09] Carleen Anaya MD, [facility] CPT-4: 78098 01/11/2015 Plan of Care Planned Activity Notes Codes Status Date Visit Plan: UTI - pt with positive urinalysis - culture sent if appropriate. Antibiotic electronically prescribed to pt's pharmacy of choice. Pt to call if symptoms do not improve. 12/21/2018 Patient Education: Patient Medication Summary Completed 12/21/2018 Visit Plan: Hypertension - well controlled [...] portable O2. 11/23/2018 Appointment: Wendi Uriostegui WPtel: [facility]5 [facility] (30 min) Complex 11/23/2018 Patient Education: Patient Medication Summary Completed 11/23/2018 Visit Plan: Possible vaginal bleeding -patient has a history of total hysterectomy -no obvious bleeding today upon inspection -will culture urine -monitor symptoms and call if bleeding persists or worsens. 11/01/2018 [facility]ment[phone] [place] (30 min) Complex 11/01/2018 Patient Education: [...] of control. 09/30/2018 Appointment: Carleen Anaya WPtel: [facility]5 [facility] (15 min) Moderate 09/30/2018 Patient Education: Patient Medication Summary Completed 09/30/2018 Appointment: Carleen Anaya WPtel[facility] (15 min) Moderate 09/22/2018 Visit Plan: Hypothyroidism [...] at home. 07/20/2018 Appointment: [phone] (15 min) Moderate 07/20/2018 Patient Education: Patient [...] time. 06/29/2018 Appointment: [phone] (15 min) Moderate 06/29/2018 Patient Education: Patient [...] care surrogate. 06/08/2018 Appointment: Mimi Espinosa WPtel: [facility]5 [phone] [facility] - Annual Wellness Visit 06/08/2018 [...] edema. Weakness-fatigue- check labs Dysuria- check UA QBU-vbqwyarjrp-fj changes in medications 05/24/2018 Appointment: Mimi Espinosa WPtel: [address] [place], [place] [phone] (15 min) Moderate 05/24/2018 Patient Education: Patient Medication Summary Completed 05/24/2018 Appointment: Injection 05/20/2018 Patient Education: Patient Medication Summary Completed 05/20/2018 Visit Plan: Sciatica- pt to continue with aleve twice daily and cyclobenzaprine x 1 week. Pt is to call if the symptoms do not improve or if they worsen. referral to [facility] physical therapy. 04/06/2018 Appointment: Carleen Anaya WPtel: [address] [place], [place] [phone] (15 min) Moderate 04/06/2018 Patient Education: [...] do not improve or if they worsen. [id number] - andrew 03/23/2018 Appointment: Carleen Anaya WPtel: [facility] (15 min) Moderate 03/23/2018 Patient Education: Patient [...] of injection. 03/12/2018 Appointment: Wendi Uriostegui WPtel: [phone] [facility] (30 min) Complex 03/12/2018 Patient Education: Patient [...] with myrbetric 03/02/2018 Appointment: Carleen Anaya WPtel: [phone] [facility] (15 min) Moderate 03/02/2018 Patient Education: Patient Medication Summary Completed 03/02/2018 Appointment: (10 min) Simple 02/09/2018 Visit Plan: Cellulitis - start oral antibiotics as directed, return to clinic as directed, call for acute change in symptoms, worsening redness, warmth, discharge. 02/08/2018 Appointment: Mimi Espinosa WPtel: [phone] [phone] [place] (15 min) Moderate 02/08/2018 Patient [...] 50mg daily. 12/03/2017 Appointment: Carleen Anaya WPtel: [facility]9 [facility] (15 min) Moderate 12/03/2017 Patient Education: Patient [...] allergy spray. 10/27/2017 Appointment: Wend[facility] Uriostegui [facility]Ptel[facility] ([facility] min) Moderate 10/27/2017 Patient Education: Patient Medication Summary Completed 10/27/2017 Visit Plan: Pneumonia - Pt has been diagnosed with pneumonia by physical exam. A chest xray has been ordered as have antibiotics. The pt is aware of the diagnosis and the need for acute treatment of this illness. 10/12/2017 Appointment: Wendi Uriostegui WPtel[facility] (15 min) Moderate 10/12/2017 Patient Education: Patient [...] labs today. 10/06/2017 Appointment: Carleen Anaya WPtel: [phone] [id number] (15 min) Moderate 10/06/2017 Patient Education: Patient [...] and prn. 08/05/2017 Appointment: [id number] (15 min) Moderate 08/05/2017 Patient Education: Patient Medication Summary Completed 08/05/2017 Appointment: [facility]el[phone] (15 min) Moderate 07/14/2017 Visit Plan: Hypertension [...] voltaren gel. 07/06/2017 Appointment: Carleen Anaya [facility]Ptel: [phone] [place] (15 min) Moderate 07/06/2017 Patient Education: Patient [...] today 06/18/2017 Appointment: [facility] Anaya [facility]el[phone] [place] (15 min) Moderate 06/18/2017 Patient Education: Patient Medication Summary Completed 06/18/2017 Appointment: Nurse Visit 05/12/2017 Care Plan: X-RAY EXAM OF SHOULDER LOINC : 50823-4 Pending 05/12/2017 Visit Plan: Weakness, fatigue, malaise - Discussed with Dr. Anaya - pt sent for IV fluids, will check labs and UA - will treat as indicated - pt is to keep her appointment with her filler and trimmer for her ECHO and Carotid US. Pt is to follow up with her oncologist. Right shoulder pain after fall - will send for X-ray - The pt is to use prn antiinflammatories to manage acute pain. The patient is to call the office if the pain is worsening or does not improve. 05/11/2017 App[facility]ment[phone] [place] ([facility] min) Complex 05/11/2017 Patient Education: [...] plan. 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 Butler - I attempted a phone call to the office of Dr. Butler, I had to leave a message on the answering machine. If i don't hear back from Dr. Butler's office, we will need to do a Holter monitor on patient. 04/08/2017 Appointment: Carleen Anaya WPtel: [phone] [facility] (15 min) Moderate 04/08/2017 Patient Education: Patient Medication Summary Completed 04/08/2017 Care Plan: Referral Order SNOMED-CT : 657589841 Pending 04/08/2017 Visit Plan: UTI - pt [...] injection. 03/03/2017 Appointment: [phone] ([facility]) Complex 03/03/2017 Patient Education: [...] control. 01/05/2017 Appointment: [phone] (15 min) Moderate 01/05/2017 Patient Education: Patient Medication Summary Completed 01/05/2017 Visit Plan: Neck Pain- pt to start with aspercreme or biofreeze to neck three times daily and start neck exercises daily. Will send RX - The patient is to call the office if the pain is worsening or does not improve. 12/19/2016 Appointment: Wendi Uriostegui WPtel[facility] ([facility] min) Complex 12/19/2016 Patient Education: [...] not improving. 11/13/2016 Appointment: Carleen Anaya WPtel: [facility]9 [facility] (15 min) Moderate 11/13/2016 Patient Education: Patient Medication Summary Completed 11/13/2016 Visit Plan: Insomnia -extended release melatonin - you can take up to 10mg of melatonin sleepy time tea - - use warm milk in the tea. Right shoulder - pt to continue with therapy, anti-inflammatory 10/16/2016 Appointment: Carleen Anaya WPtel: [address] [place] [address] (15 min) Moderate 10/16/2016 Patient Education: Patient [...] with pt. 10/06/2016 Appointment: Carleen Anaya WPtel: [address] [place], [place] [id number] [place] (15 min) Moderate 10/06/2016 Patient Education: Patient Medication Summary Completed 10/06/2016 Care Plan: X-RAY EXAM OF SHOULDER LOINC : 13895-7 Pending 10/06/2016 Appointment: Carleen Anaya WPtel: [address] [place] [address] (30 min) Complex 10/01/2016 Referral: [facility] WPtel: [phone] [facility] Patient informed. Completed 07/08/2016 Visit Plan: Hypertension [...] discussed therapy. 07/02/2016 Appointment: Carleen Anaya WPtel: [address] [place], [place] [id number] (15 min) Moderate 07/02/2016 Patient Education: Patient Medication Summary Completed 07/02/2016 Care Plan: Referral Order SNOMED-CT : [id number] Pending 07/02/2016 Visit Plan: Hypertension - well [...] planning on getting a flu shot at [facility] and she is due for another pneumovax- last pneumovax was in 2008 - so she can have pneumovax now and the prevnar in 2017 05/21/2016 Appointment: Carleen Anaya WPtel: [facility]5 [facility] (15 min) Moderate 05/21/2016 Patient Education: Patient Medication Summary Completed 05/21/2016 Referral: Medardo Del Real [id number] Referral Completed 05/12/2016 Visit Plan: Esophageal Reflux [...] times daily 05/07/2016 Appointment: Carleen Anaya WPtel: [phone] (15 min) Moderate 05/07/2016 Patient Education: Patient Medication Summary Completed 05/07/2016 Appointment: Mimi Espinosa WPtel: [facility]3 [address] (30 min) Complex 05/01/2016 Visit Plan: [...] Kenalog injection today in the office Sore wdhcyc-jjhuitbdh-qmamh dexilant-refer to Dr Del Real for evaluation 04/28/2016 Appointment: Mimi Espinosa WPtel: [phone] [place] [phone] (30 min) Complex 04/28/2016 Patient Education: Patient [...] switched. 04/07/2016 Appointment: Wendi Uriostegui WPtel: [phone] (30 min) Complex 04/07/2016 Patient Education: Patient [...] atigue-check labs including UA-culture if positive Urge ongknbrvxbft-uywrrukck-quvlr UA with C&S 04/03/2016 Appointment: Mimi Espinosa WPtel: [phone] [phone] (30 min) Complex 04/03/2016 Patient Education: Patient Medication Summary Completed 04/03/2016 Visit Plan: Hypertension - well controlled - continue with current medications, continue with no added salt diet. Pt has been encouraged to exercise daily. The pt has been advised to call the office if there are any acute concerns about change in blood pressure readings at home. Scclfsiez-tfgmrfpt-zvkdqvca MRI brain Right ankle ywse-eafrnnr-qwhy right ankle- plan to refer to physical therapy if appropriate 01/31/2016 Appointment: Mimi Espinosa WPtel: [facility]1 [phone] (30 min) Complex 01/31/2016 Patient Education: Patient [...] medications. 07/31/2015 Appointment: Carleen Anaya [facility]Ptel: [phone] (15 min) Moderate 07/31/2015 Patient Education: Patient Medication Summary Completed 07/31/2015 Patient Education: Hypertension Completed 07/31/2015 Care Plan: Referral Order SNOMED-CT : [id number] Ordered 07/31/2015 Visit Plan: Hypertension - uncontrolled [...] on Nortryptyline 07/03/2015 Appointment: Carleen Anaya WPtel: [facility] (15 min) Moderate 07/03/2015 Patient Education: Patient [...] 01/11/2015 [phone] [place] Referral Appointment Requested Referral: External, Ordering Provider Referral Appointment Requested Referral: External, Ordering Provider Referral Relationship [facility] [place] Referral Appointment Requested Instructions Comment Flonase [...] planning on getting a flu shot at [facility] and she is due for another [...] heart beat - recommended evaluation by her Commissioner [employer] - Dr. Butler - I attempted a [...] Kenalog injection today in the office Sore afmacd-yvgcqvecn-jylgo dexilant-refer to Dr Del Real for evaluation [...] Fatigue-check labs including UA-culture if positive Urge wjlofjtwcgyy-bfojcigwp-qidsq UA with C&S add z-pack, continue cefdinir - take a probiotic twice a day while on the antibiotic start steroid today go get chest x-ray eber evntura for cough let me know if it [...] edema. Weakness-fatigue- check labs Dysuria- check UA NXY-rlycjctikn-bl changes in medications . Hypertension - well controlled - continue with current medications, continue with no added salt diet. Pt has been encouraged to exercise daily. The pt has been advised to call the office if there are any acute concerns about change in blood pressure readings at home. Bncfekdzy-zgmfsknf-abovpgyn MRI brain Right ankle xxct-bxnhkhs-mpic right ankle-plan to refer to physical therapy [...] improve or if they worsen. referral to [facility] physical therapy. . Hypertension - well controlled [...] do not improve or if they worsen. [id number] - kenalog Stop Oxybutynin chloride ER. Start [...] is to keep her appointment with her filler and trimmer for her ECHO and Carotid US. Pt [...]
--- OUTSIDE RECORDS SUMMARY | 2019-01-01 11:32 | XMS REPORT | CCD ---
Author Author [facility] Organization [facility] Address [address] [place] [address] Phone Care Team Providers Care Urinalysis Technician Name Role Phone PP Unavailable CCM Unavailable Summary Purpose Interface Exchange Insurance Providers Payer name Policy type / Coverage type Covered alliance party ID Effective Begin Date Effective End Date WPS Medicare Part B Medicare Part B [id number] Unknown Unknown [facility] Medicare Part B [id number] Unknown Unknown Family history Father Diagnosis Age At Onset Cancer Unknown Arthritis Unknown Mother Diagnosis Age At Onset Breast cancer Unknown Arthritis Unknown Social History Social History Element Codes Description Effective Dates Marital status Unknown 01/11/2015 Number of children Unknown 3 01/11/2015 Employment Unknown Retired 01/11/[address]: 6445862 Quit over 10 years ago 1950 01/11/[address]: 198397716 Never drinks alcohol 01/11/2015 Allergies, Adverse Reactions, Alerts Allergies, Adverse Reactions, Alerts data not found Past Medical History Illness Codes Condition Status Onset Date Resolved Date Dysuria ICD-9: 788.1 ICD-10: R30.0 Active 2017 Unknown Low back pain ICD-9: 724.2 ICD-10: M54.5 Active 03/03/2017 Unknown Sacroiliitis, not elsewhere classified ICD-9: 720.2 ICD-10: M46.1 Active 03/03/2017 Unknown Atrophy of thyroid (acquired) ICD-9: 244.8 ICD-10: E03.4 Active 01/05/2017 Unknown Essential (primary) hypertension ICD-9: 401.1 ICD-10: I10 Active 11/13/2016 Unknown Vascular dementia without behavioral disturbance ICD-9: 290.40 ICD-10: F01.50 Active 01/05/2017 Unknown Cervicalgia ICD-9: 723.1 ICD-10: M54.2 Active 04/06/2016 Unknown Other muscle spasm ICD- 9: 728.85 ICD-10: M62.838 Active 12/19/2016 Unknown Gastro-esophageal reflux disease without esophagitis ICD-9: 530.81 ICD-10: K21.9 Active 05/20/2016 Unknown Insomnia due to medical condition ICD-9: 327.01 ICD-10: G47.01 Active 10/16/2016 Unknown Pain in right shoulder ICD-9: 719.41 ICD-10: M25.511 Active 10/06/2016 Unknown Cough ICD-9: 786.2 ICD-10: R05 Active [...] ICD-9: 787.23 ICD-10: R13.13 Active 05/20/2016 Unknown Urge incontinence ICD-9: 788.31 ICD-10: N39.41 Active 01/10/2015 Unknown Acute laryngopharyngitis ICD-9: 465.0 ICD-10: J06.0 Active 04/27/2016 Unknown Allergic rhinitis due to pollen ICD-9: 477.0 ICD-10: J30.1 Active 04/27/2016 Unknown 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 ICD-9: V58.61 ICD-10: Z79.01 Active 04/06/2016 Unknown Other cystitis without hematuria ICD-9: 595.81 ICD-10: N30.80 Active 04/06/2016 Unknown Hypothyroidism, unspecified ICD-9: 244.9 ICD-10: E03.9 Active 04/02/2016 Unknown Other fatigue ICD-9: 780.79 ICD-10: R53.83 Active 04/02/2016 Unknown Dizziness and giddiness ICD-9: [...] 09/30/2015 Unknown Hyperlipidemia Unknown Active 07/31/2015 Unknown Encounter for immunization ICD-9: V04.81 ICD-10: Z23 Active 07/02/2015 Unknown neuropathy Unknown Active 04/10/2015 Unknown MACULAR [...] Dysuria ICD-9: 788.1 ICD-10: R30.0 2017 Active Low back pain ICD-9: 724.2 ICD-10: M54.5 03/03/2017 Active Sacroiliitis, not elsewhere classified ICD-9: 720.2 ICD-10: M46.1 03/03/2017 Active Atrophy of thyroid (acquired) ICD-9: 244.8 ICD-10: E03.4 01/05/2017 Active Essential (primary) hypertension ICD-9: 401.1 ICD-10: I10 11/13/2016 Active Vascular dementia without behavioral disturbance ICD-9: 290.40 ICD-10: F01.50 01/05/2017 Active Cervicalgia ICD-9: 723.1 ICD-10: M54.2 04/06/2016 Active Other muscle spasm ICD- 9: 728.85 ICD-10: M62.838 12/19/2016 Active Gastro-esophageal reflux disease without esophagitis ICD-9: 530.81 ICD-10: K21.9 05/20/2016 Active Insomnia due to medical condition ICD-9: 327.01 ICD-10: G47.01 10/16/2016 Active Pain in right shoulder ICD-9: 719.41 ICD-10: M25.511 10/06/2016 Active Cough ICD-9: 786.2 ICD-10: R05 10/06/2016 Active Pneumonia due to other specified bacteria ICD-9: 482.89 ICD-10: J15.8 10/06/2016 Active Essential (primary) hypertension ICD-9: 401.9 ICD-10: I10 01/10/2015 Active Personal history of other specified conditions ICD-9: V13.89 ICD-10: Z87.898 07/01/2016 Active Unsteadiness on feet ICD- 9: 781.2 ICD-10: R26.81 07/01/2016 Active Dysphagia, pharyngeal phase ICD-9: 787.23 ICD-10: R13.13 05/20/2016 Active Urge incontinence ICD-9: 788.31 ICD-10: N39.41 01/10/2015 Active Acute laryngopharyngitis ICD-9: 465.0 ICD-10: J06.0 04/27/2016 Active Allergic rhinitis due to pollen ICD-9: 477.0 ICD-10: J30.1 04/27/2016 Active [facility] (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 of anticoagulants ICD-9: V58.61 ICD-10: Z79.01 04/06/2016 Active Other cystitis without hematuria ICD-9: 595.81 ICD-10: N30.80 04/06/2016 Active Hypothyroidism, unspecified ICD-9: 244.9 ICD-10: E03.9 04/02/2016 Active Other fatigue ICD-9: 780.79 ICD-10: R53.83 04/02/2016 Active Dizziness and giddiness ICD-9: 780.4 ICD-10: R42 01/30/2016 Active Pain in right ankle and joints of right foot ICD-9: 719.47 ICD-10: M25.571 01/30/2016 Active Tinnitus, bilateral ICD- 9: 388.30 ICD-10: H93.13 01/30/2016 Active Otalgia, right ear ICD- 9: 388.70 ICD-10: H92.01 11/28/2015 Active Unspecified dementia without behavioral disturbance ICD-9: 294.20 ICD-10: F03.90 09/30/2015 Active Hyperlipidemia Unknown 07/31/2015 Active Encounter for immunization ICD-9: V04.81 ICD-10: Z23 07/02/2015 Active neuropathy Unknown 04/10/2015 Active MACULAR DEGENERATION [...] Start Date Stop Date Status Fill Instructions ciprofloxacin 500 mg tablet RxNorm: 752245 1 Tablet(s) PO BID 2017 03/13/2017 Active prednisone 20 mg tablet RxNorm: 946131 2 Tablet(s) PO daily 03/03/2017 03/07/2017 Active tramadol 50 mg tablet RxNorm: 921242 1/2 Tablet(s) PO TID as needed 03/03/2017 No Stop Date Active pravastatin 10 mg tablet RxNorm: 869000 TAKE ONE TABLET BY MOUTH ONCE DAILY 01/19/2017 01/13/2018 Active nortriptyline 10 mg capsule RxNorm: 601389 TAKE ONE CAPSULE BY MOUTH ONCE DAILY IN THE EVENING 01/14/2017 04/13/2017 Active Voltaren 1 % topical gel RxNorm: 548215 TOP QID 12/22/2016 02/19/2017 Inactive Voltaren 1 % topical gel RxNorm: 727752 TOP QID 12/22/2016 12/21/2016 Inactive Flector 1.3 % transdermal 12 hour patch RxNorm: 801523 1 Patch TOP every 12 hours as needed 12/19/2016 No Stop Date Active prednisone 20 mg tablet RxNorm: 875095 2 Tablet(s) PO daily 12/19/2016 12/23/2016 Inactive cyclobenzaprine 5 mg tablet RxNorm: 308373 1/2 Tablet(s) PO BID as needed 12/19/2016 12/23/2016 Inactive losartan 25 mg tablet RxNorm: 833787 1 Tablet(s) PO daily TAKE ONE TABLET BY MOUTH ONCE DAILY 11/13/2016 11/07/2017 Active Namenda 10 mg tablet RxNorm: 215387 TAKE ONE TABLET BY MOUTH TWICE DAILY 10/28/2016 04/25/2017 Active nortriptyline 10 mg capsule RxNorm: 930426 TAKE ONE CAPSULE BY MOUTH ONCE DAILY IN THE EVENING 10/13/2016 01/10/2017 Inactive ceftriaxone 500 mg solution for injection RxNorm: 5815334 Inj 10/06/2016 10/06/2016 Inactive cefdinir 300 mg capsule RxNorm: 173871 1 Capsule(s) PO BID 10/06/2016 10/12/2016 Inactive prednisone 20 mg tablet RxNorm: 761939 2 Tablet(s) PO daily 10/06/2016 10/08/2016 Inactive ProAir RespiClick 90 mcg/actuation breath activated RxNorm: 6923987 2 INH TID x 3 days then one inhale tid x 3 days then prn shortness of breath 10/06/2016 11/04/2016 Inactive Kenalog 40 mg/mL suspension for injection RxNorm: 0084691 1 Milliliter(s) Inj 10/06/2016 10/06/2016 Inactive Myrbetriq 50 mg tablet,extended release RxNorm: 9990322 1 Tablet(s) PO daily 09/11/2016 11/12/2016 Inactive hydrochlorothiazide 25 mg tablet RxNorm: 619719 1 Tablet(s) PO daily 07/25/2016 07/19/2017 Active Namenda 10 mg tablet RxNorm: 498535 TAKE ONE TABLET BY MOUTH TWICE DAILY 07/25/2016 10/22/2016 Inactive Synthroid 125 mcg tablet RxNorm: 216427 TAKE ONE TABLET BY MOUTH ONCE DAILY 07/14/2016 03/10/2017 Active losartan 25 mg tablet RxNorm: 163733 TAKE ONE TABLET BY MOUTH ONCE DAILY 07/07/2016 11/12/2016 Inactive metoprolol succinate ER 100 mg tablet,extended release 24 hr RxNorm: 005401 1 Tablet(s) PO daily 06/16/2016 06/10/2017 Active nortriptyline 10 mg capsule RxNorm: 312988 Capsule(s) TAKE ONE CAPSULE BY MOUTH ONCE DAILY IN THE EVENING 06/09/2016 10/06/2016 Inactive Myrbetriq 50 mg tablet,extended release RxNorm: 4063297 1 Tablet(s) PO daily 05/21/2016 09/10/2016 Inactive Carafate 100 mg/mL oral suspension RxNorm: 936657 10 Milliliter(s) PO QID 05/07/2016 09/03/2016 Inactive doxycycline hyclate 100 mg tablet RxNorm: 523658 1 Tablet(s) PO BID 05/07/2016 05/13/2016 Inactive Kenalog 40 mg/mL suspension for injection RxNorm: 0722033 Milliliter(s) Inj 04/28/2016 04/28/2016 Inactive losartan 25 mg tablet RxNorm: 171728 TAKE ONE TABLET BY MOUTH ONCE DAILY 04/08/2016 07/06/2016 Inactive ciprofloxacin 500 mg tablet RxNorm: 094437 1 Tablet(s) PO BID 04/07/2016 04/13/2016 Inactive cyclobenzaprine 5 mg tablet RxNorm: 688128 1 Tablet(s) PO TID 04/07/2016 04/16/2016 Inactive Keflex 500 mg capsule RxNorm: 652204 1 Capsule(s) PO TID 04/03/2016 04/02/2016 Inactive Keflex 500 mg capsule RxNorm: 488974 1 Capsule(s) PO TID 04/03/2016 04/09/2016 Inactive losartan 25 mg tablet RxNorm: 065756 TAKE ONE TABLET BY MOUTH ONCE DAILY 03/06/2016 04/07/2016 Inactive nortriptyline 10 mg capsule RxNorm: 774004 TAKE ONE CAPSULE BY MOUTH ONCE DAILY IN THE EVENING 03/06/2016 06/03/2016 Inactive pravastatin 10 mg tablet RxNorm: 027607 TAKE ONE TABLET BY MOUTH ONCE DAILY 02/04/2016 01/18/2017 Inactive warfarin 4 mg tablet RxNorm: 936198 Tablet(s) PO q d except 5mg on tue 01/31/2016 No Stop Date Active Myrbetriq 50 mg tablet,extended release RxNorm: 7129998 1 Tablet(s) PO daily 01/17/2016 05/15/2016 Inactive Namenda 10 mg tablet RxNorm: 149362 1 Tablet(s) PO BID 01/01/2016 06/28/2016 Inactive Myrbetriq 50 mg tablet,extended release RxNorm: 6812278 1 Tablet(s) PO daily 12/20/2015 12/20/2015 Inactive Synthroid 125 mcg tablet RxNorm: 053796 1 Tablet(s) PO daily 11/14/2015 07/10/2016 Inactive nortriptyline 10 mg capsule RxNorm: 422292 TAKE ONE CAPSULE BY MOUTH ONCE DAILY IN THE EVENING 11/05/2015 03/03/2016 Inactive Myrbetriq 50 mg tablet,extended release RxNorm: 4591890 1 Tablet(s) PO daily 10/01/2015 12/19/2015 Inactive Namenda 10 mg tablet RxNorm: 521064 1 Tablet(s) PO BID 08/30/2015 12/31/2015 Inactive Vesicare 10 mg tablet RxNorm: 443466 1 Tablet(s) PO daily 08/30/2015 09/30/2015 Inactive warfarin 4 mg tablet RxNorm: 314897 Tablet(s) PO 08/30/2015 01/30/2016 Inactive Synthroid 125 mcg tablet RxNorm: 821777 1 Tablet(s) PO daily 08/02/2015 11/13/2015 Inactive Synthroid 125 mcg tablet RxNorm: 451651 Tablet(s) PO 08/01/2015 08/01/2015 Inactive losartan 25 mg tablet RxNorm: 252922 1 Tablet(s) PO daily 07/31/2015 02/25/2016 Inactive pravastatin 10 mg tablet RxNorm: 772551 1 Tablet(s) PO daily 07/23/2015 01/18/2016 Inactive hydrochlorothiazide 25 mg tablet RxNorm: 414615 1 Tablet(s) PO daily 07/19/2015 07/12/2016 Inactive nortriptyline 10 mg capsule RxNorm: 605290 1 Capsule(s) PO QPM 07/03/2015 10/30/2015 Inactive metoprolol succinate ER 100 mg tablet,extended release 24 hr RxNorm: 696901 1 Tablet(s) PO daily 06/06/2015 05/30/2016 Inactive pravastatin 10 mg tablet RxNorm: 734185 1 Tablet(s) PO daily 01/22/2015 07/20/2015 Inactive Fosamax 5 mg tablet RxNorm: 647793 1 Tablet(s) QW 01/11/2015 No Stop Date Active aspirin 81 mg capsule,delayed release RxNorm: 665854 1 Capsule(s) PO daily 01/11/2015 02/09/2015 Inactive oxybutynin chloride ER 10 mg tablet,extended release 24 hr RxNorm: 738541 1 Tablet(s) PO daily 01/11/2015 08/29/2015 Inactive Tylenol PM oral RxNorm: 092755 oral No Start Date Active Colace 100 mg capsule RxNorm: 2639576 Capsule(s) PO No Start Date Active Micro-K 10 10 mEq capsule,extended release RxNorm: 997887 1 Capsule(s) PO daily No Start Date Active PreserVision AREDS 2 oral RxNorm: 0019050 oral No Start Date Active pravastatin 10 mg tablet RxNorm: 984180 1 Tablet(s) PO daily No Start Date 01/21/2015 Inactive Synthroid 100 mcg tablet RxNorm: 431322 Tablet(s) PO No Start Date 07/31/2015 Inactive hydrochlorothiazide 25 mg tablet RxNorm: 034441 1 Tablet(s) PO daily No Start Date 07/18/2015 Inactive warfarin 2 mg tablet RxNorm: 998965 Tablet(s) PO No Start Date 08/29/2015 Inactive metoprolol succinate ER 100 mg tablet,extended release 24 hr RxNorm: 048252 1 Tablet(s) PO daily No Start Date 06/05/2015 Inactive warfarin 3 mg tablet RxNorm: 188086 Tablet(s) PO No Start Date 08/29/2015 Inactive Medication Administered Medication Codes Instructions Start Date Status Kenalog 40 mg/mL suspension for injection RxNorm: 3567152 1Milliliter 10/06/2016 No longer Active ceftriaxone 500 mg solution for injection RxNorm: 3338859 10/06/2016 No longer Active Kenalog 40 mg/mL suspension for injection RxNorm: 7051791 Milliliter 04/28/2016 No longer Active Immunizations Vaccine Codes Date Status Influenza CVX: 141 06/10/2016 completed Pneumococcal CVX: 133 05/29/2016 completed Influenza CVX: 141 07/03/2015 completed Assessments Condition Codes Effective Dates Dysuria ICD-10: R30.0 ICD-9: 788.1 2017 Sacroiliitis, not elsewhere classified ICD-10: M46.1 ICD-9: 720.2 03/03/2017 Low back pain ICD-10: M54.5 ICD-9: 724.2 03/03/2017 Atrophy of thyroid (acquired) ICD-10: E03.4 ICD-9: 244.8 01/05/2017 Essential (primary) hypertension ICD-10: I10 ICD-9: 401.1 01/05/2017 Vascular dementia without behavioral disturbance ICD-10: F01.50 ICD-9: 290.40 01/05/2017 Cervicalgia ICD-10: M54.2 ICD-9: 723.1 12/19/2016 Other muscle spasm ICD-10: M62.838 ICD-9: 728.85 12/19/2016 Gastro-esophageal reflux disease without esophagitis ICD-10: K21.9 ICD-9: 530.81 11/13/2016 Insomnia due to medical condition ICD-10: G47.01 ICD-9: 327.01 10/16/2016 Pain in right shoulder ICD-10: M25.511 ICD-9: 719.41 10/16/2016 Pneumonia due to other specified bacteria ICD-10: J15.8 ICD-9: 482.89 10/06/2016 Cough ICD-10: R05 ICD-9: 786.2 10/06/2016 Unsteadiness on feet ICD-10: R26.81 ICD-9: 781.2 07/02/2016 Personal history of other specified conditions ICD-10: Z87.898 ICD-9: V13.89 07/02/2016 Essential (primary) hypertension ICD-10: I10 ICD-9: 401.9 07/02/2016 Dysphagia, pharyngeal phase ICD-10: R13.13 ICD-9: 787.23 05/21/2016 Urge incontinence ICD-10: N39.41 ICD-9: 788.31 05/21/2016 Acute laryngopharyngitis ICD-10: J06.0 ICD-9: 465.0 04/28/2016 Allergic rhinitis due to pollen ICD-10: J30.1 ICD-9: 477.0 04/28/2016 [facility] (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 of anticoagulants ICD-10: Z79.01 ICD-9: V58.61 04/07/2016 Other cystitis without hematuria ICD-10: N30.80 ICD-9: 595.81 04/07/2016 Other fatigue ICD-10: R53.83 ICD-9: 780.79 04/03/2016 Hypothyroidism, unspecified ICD-10: E03.9 ICD-9: 244.9 04/03/2016 Dizziness and giddiness ICD-10: R42 ICD-9: 780.4 01/31/2016 Pain in right ankle and joints of right foot ICD-10: M25.571 ICD-9: 719.47 01/31/2016 Tinnitus, bilateral ICD-10: H93.13 ICD-9: 388.30 01/31/2016 Otalgia, right ear ICD-10: H92.01 ICD-9: 388.70 11/29/2015 Unspecified dementia without behavioral disturbance ICD-10: F03.90 ICD-9: 294.20 10/01/2015 Hyperlipidemia, unspecified ICD-10: E78.5 ICD-9: 272.4 07/31/2015 Encounter for immunization ICD-10: Z23 ICD-9: V04.81 07/03/2015 Neuropathy ICD-9: 355.9 04/10/2015 Peripheral vascular disease ICD-9: 443.9 04/10/2015 ESSENTIAL HYPERTENSION ICD-9: 401.9 04/10/2015 MACULAR DEGENERATION ICD-9: 362.50 04/10/2015 URGE INCONTINENCE ICD-9: 788.31 01/11/2015 HYPOTHYROIDISM ICD-9: 244.9 01/11/2015 Constipation - functional ICD-9: 564.09 01/11/2015 Reason For Visit Reason For Visit Effective Dates Notes back pain 03/03/2017 hypertension 01/05/2017 neck pain [...] Observation Code Item Item Code Result Date Pt Jwr7530 PT 24.2 seconds 04/14/2016 Pt Svx1229 INR 2.3 04/14/2016 Pt Fon4327 Low Intensity - 1.5-2.0 04/14/2016 Pt Jkd4470 Mod intensity - 2.0-3.0 04/14/2016 Pt Qrb3959 Hi intensity - 3.0-4.0 04/14/2016 Pt Ehb5946 PT 31.3 seconds 04/10/2016 Pt Dzp6890 INR 3.3 04/10/2016 Pt Iku2831 Low Intensity - 1.5-2.0 04/10/2016 Pt Yoe5383 Mod intensity - 2.0-3.0 04/10/2016 Pt Fxy5086 Hi intensity - 3.0-4.0 04/10/2016 C RAP A SC [id number] Strep A Negative 04/10/2016 Urine Culture Ucult Complete >100,000 col/ml aerobic growth sent to ref lab 04/04/2016 Comp Metabolic Mtn784 NA 136 mEq/L 04/03/2016 Comp Metabolic Gpw172 K 3.9 mEq/L 04/03/2016 Comp Metabolic Eii713 CL 99 mEq/L 04/03/2016 Comp Metabolic Nyc886 CO2 32.0 mEq/L 04/03/2016 Comp Metabolic Izb374 ANION GAP 9 04/03/2016 Comp Metabolic Cme597 GLUCOSE 88 mg/dL 04/03/2016 Comp Metabolic Lrs559 Creat 0.6 mg/dL 04/03/2016 Comp Metabolic Zub134 eGFR 93 ml/min/1.73m2 04/03/2016 Comp Metabolic Zfu672 BUN 15 mg/dL 04/03/2016 Comp Metabolic Hrs104 B/C Ratio 23.4 Ratio 04/03/2016 Comp Metabolic Nga215 CALCIUM 8.7 mg/dL 04/03/2016 Comp Metabolic Inh485 ALK PHOS 100 U/L 04/03/2016 Comp Metabolic Kwi891 AST(SGOT) 28 U/L 04/03/2016 Comp Metabolic Ydc487 ALT(SGPT) 39 U/L 04/03/2016 Comp Metabolic Pry371 BILI T 0.5 mg/dL 04/03/2016 Comp Metabolic Iua164 ALBUMIN 4.1 g/dL 04/03/2016 Comp Metabolic Ggt336 TPRO 6.6 g/dL 04/03/2016 Comp Metabolic Zqe584 GLOB 2.5 g/dL 04/03/2016 Comp Metabolic Jox963 A/G Ratio 1.7 Ratio 04/03/2016 Comp Metabolic Yca017 Osmo 272 mOsmo 04/03/2016 Cbc With Differential Ord2 WBC 7.27 K/ul 04/03/2016 Cbc With Differential Ord2 RBC 4.35 M/ul 04/03/2016 Cbc With Differential Ord2 HGB 12.6 g/dl 04/03/2016 Cbc With Differential Ord2 Neut% 70.2 % 04/03/2016 Cbc With Differential Ord2 HCT 39.7 % 04/03/2016 Cbc With Differential Ord2 MCV 91.3 fl 04/03/2016 Cbc With Differential Ord2 Lymph% 15.8 % 04/03/2016 Cbc With Differential Ord2 MCH 29.0 pg 04/03/2016 Cbc With Differential Ord2 Lyon% 11.3 % 04/03/2016 Cbc With Differential Ord2 [...] 1.15 K/ul 04/03/2016 Cbc With Differential Ord2 Lyon ABS# 0.8 K/ul 04/03/2016 Cbc With Differential Ord2 Eos ABS# 0.2 K/ul 04/03/2016 Cbc With Differential Ord2 Baso ABS# 0.0 K/ul 04/03/2016 Tsh Ord6 hTSH II 3.06 uIU/mL 04/03/2016 Free T4 Epk411 FREE T4 0.99 ng/dL 04/03/2016 Free T4 Slw859 FREE T4 0.81 ng/dL 07/31/2015 Comp Metabolic Ofs406 NA 136 mEq/L 07/31/2015 Comp Metabolic Otz338 K 3.8 mEq/L 07/31/2015 Comp Metabolic Ohw165 CL 97 mEq/L 07/31/2015 Comp Metabolic Wfq319 CO2 29.0 mEq/L 07/31/2015 Comp Metabolic Dbr217 ANION GAP 14 07/31/2015 Comp Metabolic Dbg172 GLUCOSE 90 mg/dL 07/31/2015 Comp Metabolic Jpg433 Creat 0.7 mg/dL 07/31/2015 Comp Metabolic Ilf841 eGFR 80 ml/min/1.73m2 07/31/2015 Comp Metabolic Zqg247 BUN 8 mg/dL 07/31/2015 Comp Metabolic Mgb356 B/C Ratio 11.0 Ratio 07/31/2015 Comp Metabolic Eyg318 CALCIUM 8.9 mg/dL 07/31/2015 Comp Metabolic Rlp863 ALK PHOS 102 U/L 07/31/2015 Comp Metabolic Rdl190 AST(SGOT) 22 U/L 07/31/2015 Comp Metabolic Dhh654 ALT(SGPT) 14 U/L 07/31/2015 Comp Metabolic Syt076 BILI T 0.5 mg/dL 07/31/2015 Comp Metabolic Xpg809 ALBUMIN 4.4 g/dL 07/31/2015 Comp Metabolic Hwv043 TPRO 6.7 g/dL 07/31/2015 Comp Metabolic Jdz861 GLOB 2.3 g/dL 07/31/2015 Comp Metabolic Zpx419 A/G Ratio 1.9 Ratio 07/31/2015 Comp Metabolic Yol106 Osmo 270 mOsmo 07/31/2015 Tsh Ord6 hTSH [...] Lipid Ord30 C/HDL 4.8 Ratio 07/31/2015 Pt Oey3094 PT 31.9 seconds 07/03/2015 Pt Dtf5415 INR 3.2 07/03/2015 Pt Uev1865 Low Intensity - 1.5-2.0 07/03/2015 Pt Paf3518 Mod intensity - 2.0-3.0 07/03/2015 Pt Xcg4924 Hi intensity - 3.0-4.0 07/03/2015 Review of Systems System Result Effective Dates Constitutional No recent illness 03/03/2017 Constitutional No [...] Result Effective Dates Notes Full Exam - Orthopedics Constitutional general appearance [...] Codes Date URINALYSIS NONAUTO W/O SCOPE CPT-4: 79506Zpkflqz 2017 DRAIN/INJECT JOINT/BURSA CPT-4: 30162Ropavex 03/03/2017 TRIAMCINOLONE ACET INJ NOS CPT-4: A4928Wesxxwh 03/03/2017 TRIAMCINOLONE ACET INJ NOS CPT-4: M8378Tzqgrlt 10/06/2016 ROCEPHIN, PER 250 MG CPT-4: F3366Baetpxc 10/06/2016 THER/PROPH/DIAG INJ SC/IM CPT-4: 36132Gfkypes 10/06/2016 TRIAMCINOLONE ACET INJ NOS CPT-4: W5415Asurlee 04/28/2016 URINALYSIS NONAUTO W/O SCOPE CPT-4: 07473Oarauke 04/03/2016 ADMIN INFLUENZA VIRUS VAC CPT-4: Q0617Lrsmduk 07/03/2015 FLU VACC PRSV FREE INC ANTIG CPT-4: 81687Efujkoq 07/03/2015 Vital Signs Date Vital 03/03/2017 Blood Pressure 1: 154/88 Code: 8480-6 Heart Rate 1: 96 bpm Height: SpO2: 95% Weight: 01/05/2017 Blood Pressure 1: 142/78 Code: 8480-6 BMI: 28.9 Code: 93828-1 Heart Rate 1: 94 bpm Height: 5'6" SpO2: 95% Weight: 179 lbs 12/19/2016 Blood Pressure 1: 130/74 Code: 8480-6 Heart Rate 1: 91 bpm Height: 5'6" SpO2: 97% Weight: 11/13/2016 Blood Pressure 1: 152/82 Code: 8480-6 BMI: 28.4 Code: 27458-0 Heart Rate 1: 85 bpm Height: 5'6" SpO2: 96% Weight: 176 lbs 10/16/2016 Blood Pressure 1: 148/72 Code: 8480-6 BMI: 28.4 Code: 07323-9 Heart Rate 1: 90 bpm Height: 5'6" SpO2: 96% Weight: 176 lbs 10/06/2016 Blood Pressure 1: 150/80 Code: 8480-6 BMI: 28.4 Code: 43227-8 Heart Rate 1: 76 bpm Height: 5'6" SpO2: 97% Weight: 176 lbs 07/02/2016 Blood Pressure 1: 142/78 Code: 8480-6 BMI: 27.8 Code: 88916-7 Heart Rate 1: 85 bpm Height: 5'6" SpO2: 97% Weight: 172 lbs 05/21/2016 Blood Pressure 1: 166/80 Code: 8480-6 BMI: 27.9 Code: 36450-6 Heart Rate 1: 79 bpm Height: 5'6" SpO2: 98% Weight: 173 lbs 05/07/2016 Blood Pressure 1: 140/70 Code: 8480-6 BMI: 27.9 Code: 42505-2 Heart Rate 1: 82 bpm Height: 5'6" SpO2: 96% Weight: 173 lbs 04/28/2016 Blood Pressure 1: 128/86 Code: 8480-6 BMI: 27.4 Code: 70065-3 Heart Rate 1: 86 bpm Height: 5'6" SpO2: 96% Temperature: 36.1 (C) / 97.0 (F) Weight: 170 lbs 04/07/2016 Blood Pressure 1: 150/80 Code: 8480-6 Heart Rate 1: 94 bpm Height: SpO2: 95% Weight: 04/03/2016 Blood Pressure 1: 122/76 Code: 8480-6 BMI: 27.4 Code: 12678-8 Heart Rate 1: 84 bpm Height: 5'6" SpO2: 94% Weight: 170 lbs 01/31/2016 Blood Pressure 1: 124/82 Code: 8480-6 BMI: 27.8 Code: 45827-2 Heart Rate 1: 100 bpm Height: 5'6" SpO2: 97% Weight: 172 lbs 11/29/2015 Blood Pressure 1: 140/82 Code: 8480-6 Blood Pressure 1: 130/84 Code: 8480-6 BMI: 27.4 Code: 42125-5 Heart Rate 1: 97 bpm Height: 5'6" SpO2: 95% Weight: 170 lbs 10/01/2015 Blood Pressure 1: 130/80 Code: 8480-6 BMI: 27.4 Code: 69815-5 Heart Rate 1: 82 bpm Height: 5'6" SpO2: 97% Weight: 170 lbs 08/30/2015 Blood Pressure 1: 120/68 Code: 8480-6 BMI: 27.6 Code: 12426-2 Heart Rate 1: 91 bpm Height: 5'6" SpO2: 96% Weight: 171 lbs 07/31/2015 Blood Pressure 1: 180/80 Code: 8480-6 BMI: 27.4 Code: 38290-1 Heart Rate 1: 60 bpm Height: 5'6" SpO2: 94% Weight: 170 lbs 07/03/2015 Blood Pressure 1: 154/80 Code: 8480-6 BMI: 27.4 Code: 50642-0 Heart Rate 1: 98 bpm Height: 5'6" SpO2: 95% Weight: 170 lbs 04/10/2015 Blood Pressure 1: 138/72 Code: 8480-6 BMI: 27.8 Code: 98615-3 Heart Rate 1: 82 bpm Height: 5'6" SpO2: 98% Weight: 172 lbs 01/11/2015 Blood Pressure 1: 132/74 Code: 8480-6 BMI: 28.6 Code: 22321-6 Heart Rate 1: 88 bpm Height: 5'6" SpO2: 96% Weight: 177 lbs Functional Status No Functional Status data History of Present Illness Symptom Name Status Result Effective Date Notes back pain Location lumbar-sacral spine 03/03/2017 None [...] Codes Date EST. PATIENT, LEVEL III Diagnosis: Low back pain[ICD10: M54.5] Diagnosis: Sacroiliitis, not elsewhere classified[ICD10: M46.1] [facility] CPT-4: 10543 03/03/2017 ([id number]) [id number] EST. PATIENT, LEVEL IV Diagnosis: Essential (primary) hypertension[ICD10: I10] Diagnosis: Atrophy of thyroid (acquired)[ICD10: E03.4] Diagnosis: Vascular dementia without behavioral disturbance[ICD10: F01.50] [facility] CPT-4: 14084 01/05/2017 [id number] EST. PATIENT, LEVEL III Diagnosis: Cervicalgia[ICD10: M54.2] Diagnosis: Other muscle spasm[ICD10: M62.838] [facility] CPT-4: 23749 12/19/2016 ([id number]) [id number] EST. PATIENT, LEVEL III Diagnosis: Essential (primary) hypertension[ICD10: I10] Diagnosis: Gastro-esophageal reflux disease without esophagitis[ICD10: K21.9] Carleen Anaya MD, [facility] CPT-4: 03945 11/13/2016 ([id number]) [id number] EST. PATIENT, LEVEL III Diagnosis: Pain in right shoulder[ICD10: M25.511] Diagnosis: Insomnia due to medical condition[ICD10: G47.01] Carleen Anaya MD, [facility] CPT-4: 17592 10/16/2016 ([id number]) [id number] EST. PATIENT, LEVEL IV Diagnosis: Pneumonia due to other specified bacteria[ICD10: J15.8] Diagnosis: Pain in right shoulder[ICD10: M25.511] Diagnosis: Cough[ICD10: R05] Carleen Anaya MD, [facility] CPT-4: 87332 10/06/2016 ([id number]) 40785 EST. PATIENT, LEVEL IV Diagnosis: Essential (primary) hypertension[ICD10: I10] Diagnosis: Personal history of other specified conditions[ICD10: Z87.898] Diagnosis: Unsteadiness on feet[ICD10: R26.81] Carleen Anaya MD, [facility] CPT- 4: 46668 07/02/2016 ([id number]) 02352 EST. PATIENT, LEVEL IV Diagnosis: Dysphagia, pharyngeal phase[ICD10: R13.13] Diagnosis: Urge incontinence[ICD10: N39.41] Diagnosis: Gastro-esophageal reflux disease without esophagitis[ICD10: K21.9] Carleen Anaya MD, [facility] CPT-4: 62547 05/21/2016 ([id number]) 96382 EST. PATIENT, LEVEL III Diagnosis: Gastro-esophageal reflux disease without esophagitis[ICD10: K21.9] Carleen Anaya MD [facility] CPT-4: 60513 05/07/2016 ([id number]) 47988 EST. PATIENT, LEVEL III Diagnosis: Acute laryngopharyngitis[ICD10: J06.0] Diagnosis: Dysphagia, pharyngeal phase[ICD10: R13.13] Diagnosis: Allergic rhinitis due to pollen[ICD10: J30.1] Mimi Anaya MD, [facility] CPT-4: 96056 04/28/2016 ([id number]) Miscellaneous no charge Diagnosis: Acute laryngopharyngitis[ICD10: J06.0] Wendi Anaya MD, [facility] CPT- 4: 25208 04/10/2016 77934 EST. PATIENT, LEVEL IV Diagnosis: Cervicalgia[ICD10: M54.2] Diagnosis: Acute laryngopharyngitis[ICD10: J06.0] Diagnosis: FCI (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 of anticoagulants[ICD10: Z79.01] Diagnosis: Other cystitis without hematuria[ICD10: N30.80] Wendi Anaya MD, [facility] CPT-4: 31840 04/07/2016 ([id number]) 15786 EST. PATIENT, LEVEL IV Diagnosis: Essential (primary) hypertension[ICD10: I10] Diagnosis: Hypothyroidism, unspecified[ICD10: E03.9] Diagnosis: Other fatigue[ICD10: R53.83] Diagnosis: Urge incontinence[ICD10: N39.41] Mimi Anaya MD, [facility] CPT- 4: 72834 04/03/2016 ([id number]) 78031 EST. PATIENT, LEVEL IV Diagnosis: Essential (primary) hypertension[ICD10: I10] Diagnosis: Pain in right ankle and joints of right foot[ICD10: M25.571] Diagnosis: Dizziness and giddiness[ICD10: R42] Diagnosis: Tinnitus, bilateral[ICD10: H93.13] Mimi Anaya MD, [facility] CPT- 4: 84347 01/31/2016 ([id number]) 22060 EST. PATIENT, LEVEL IV Diagnosis: Essential (primary) hypertension[ICD10: I10] Diagnosis: Otalgia, right ear[ICD10: H92.01] Diagnosis: Allergic rhinitis due to pollen[ICD10: J30.1] Diagnosis: Hypothyroidism, unspecified[ICD10: E03.9] Mimi Anaya MD, [facility] CPT-4: 76459 11/29/2015 ([id number]) 08016 EST. PATIENT, LEVEL IV Diagnosis: Essential (primary) hypertension[ICD10: I10] Diagnosis: Urge incontinence[ICD10: N39.41] Diagnosis: Unspecified dementia without behavioral disturbance[ICD10: F03.90] Mimi Anaya MD [facility] CPT-4: 77296 10/01/2015 ([id number]) 77347 EST. PATIENT, LEVEL IV Diagnosis: Essential (primary) hypertension[ICD10: I10] Diagnosis: Hypothyroidism, unspecified[ICD10: E03.9] Diagnosis: Unspecified dementia without behavioral disturbance[ICD10: F03.90] Diagnosis: Urge incontinence[ICD10: N39.41] Mimi Anaya MD, [facility] CPT- 4: 13779 08/30/2015 ([id number]) 84960 EST. PATIENT, LEVEL IV Diagnosis: Essential (primary) hypertension[ICD10: I10] Diagnosis: Hypothyroidism, unspecified[ICD10: E03.9] Diagnosis: Hyperlipidemia, unspecified[ICD10: E78.5] Carleen Anaya MD [facility] CPT-4: 54500 07/31/2015 ([id number]) 72796 EST. PATIENT, LEVEL IV Diagnosis: Essential (primary) hypertension[ICD10: I10] Diagnosis: FCI (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 of anticoagulants[ICD10: Z79.01] Diagnosis: Dizziness and giddiness[ICD10: R42] Carleen Anaya MD, [facility] CPT- 4: 36327 07/03/2015 ([id number]) 08997 EST. PATIENT, LEVEL IV Diagnosis: ESSENTIAL HYPERTENSION[ICD9: 401.9] Diagnosis: MACULAR DEGENERATION[ICD9: 362.50] Diagnosis: Peripheral vascular disease[ICD9: 443.9] Diagnosis: Neuropathy[ICD9: 355.9] Carleen Anaya MD, [facility] CPT-4: 02220 04/10/2015 ([id number]) OFFICE/OUTPATIENT VISIT NEW Diagnosis: ESSENTIAL HYPERTENSION[ICD9: 401.9] Diagnosis: HYPOTHYROIDISM[ICD9: 244.9] Diagnosis: URGE INCONTINENCE[ICD9: 788.31] Diagnosis: Constipation - functional[ICD9: 564.09] Carleen Anaya MD, [facility] CPT-4: 96578 01/11/2015 Plan of Care Planned Activity Notes Codes Status Date Visit Plan: UTI - pt with positive urinalysis - culture sent if appropriate. Antibiotic electronically prescribed to pt's pharmacy of choice. Pt to call if symptoms do not improve. 2017 Patient Education: Patient Medication Summary Completed 2017 Care Plan: Urine Culture Pending 2017 Visit Plan: Low back pain- The pt is to use prn antiinflammatories to manage acute pain. The patient is to call the office if the pain is worsening or does not improve. Sacroiliitis - back exercises discussed with the patient, pt to continue with anti-inflammatories. Pt is to call if the symptoms do not improve or if they worsen.Joint Injection - Pt was given post - injection instructions. The pt has been advised to use anti-inflammatories post injection today, ice to the injected site, call if redness, warmth, or increased pain occurs at the site of injection. 03/03/2017 Appointment: Wendi Uriostegui WPtel: [facility]9 [facility] (30 min) Complex 03/03/2017 Patient Education: Patient Medication Summary Completed 03/03/2017 Visit Plan: Hypertension - well controlled - continue with current medications, continue with no added salt diet. Pt has been encouraged to exercise daily.The pt has been advised to call the office if there are any acute concerns about change in blood pressure readings at home.Memory loss - continue with namenda for support of memory.Hypothyroidism - pt with chronic hypothyroidism, continue with current medication, will monitor pt to signs or symptoms of lack of adequate supplementation. Pt is to continue with current dose of medication unless directed otherwise. Check labs at regular intervals wither q 3 months or q 6 months based on previous levels of control. 01/05/2017 Appointment: Carleen Anaya WPtel: [phone] [facility] (15 min) Moderate 01/05/2017 Patient Education: Patient Medication Summary Completed 01/05/2017 Visit Plan: Neck Pain- pt to start with aspercreme or biofreeze to neck three times daily and start neck exercises daily. Will send RX - The patient is to call the office if the pain is worsening or does not improve. 12/19/2016 Appointment: Wendi Uriostegui WPtel: [phone] [facility] (30 min) Complex 12/19/2016 Patient Education: Patient Medication Summary Completed 12/19/2016 Patient Education: .Cervicalgia Neck Pain Completed 12/19/2016 Visit Plan: Hypertension - well controlled - continue with current medications, continue with no added salt diet. Pt has been encouraged to exercise daily.The pt has been advised to call the office if there are any acute concerns about change in blood pressure readings at home.Esophageal Reflux - the patient has been counseled against excessive intake of caffeine, spicy foods, peppermint, and cinnamon - all of which can exacerbate esophageal reflux.The patient is to take medications as prescribed and call the office if the symptoms are not improving. 11/13/2016 Appointment: Carleen Anaya WPtel: [facility]8 [facility] (15 min) Moderate 11/13/2016 Patient Education: Patient Medication Summary Completed 11/13/2016 Visit Plan: Insomnia -extended release melatonin - you can take up to 10mg of melatoninsleepy time tea - - use warm milk in the tea.Right shoulder - pt to continue with therapy, anti-inflammatory 10/16/2016 Appointment: Carleen Anaya WPtel: [facility]7 [facility] (15 min) Moderate 10/16/2016 Patient Education: Patient Medication Summary Completed 10/16/2016 Visit Plan: Pneumonia - Pt has been diagnosed with pneumonia by physical exam. A chest xray has been ordered as have antibiotics. The pt is aware of the diagnosis and the need for acute treatment of this illness.cefdinir rx to pharmacy - prednisone 40mg daily x 3 daysRight shoulder pain - rx for xray sent with pt. 10/06/2016 Appointment: [facility]aya [facility]el[phone] (15 min) Moderate 10/06/2016 Patient Education: Patient Medication Summary Completed 10/06/2016 Care Plan: CHEST X-RAY 2VW FRONTAL&LATL LOINC : 64269-9 Pending 10/06/2016 Care Plan: X-RAY EXAM OF SHOULDER LOINC : 12610-4 Pending 10/06/2016 Appointment: Carleen Anaya WPtel: [facility]5 [facility] (30 min) Complex 10/01/2016 Referral: [facility] WPtel: [phone] [facility] Patient informed. Completed 07/08/2016 Visit Plan: Hypertension - well controlled - continue with current medications, continue with no added salt diet. Pt has been encouraged to exercise daily.The pt has been advised to call the office if there are any acute concerns about change in blood pressure readings at home.Joint pain - rx for gabby Whiteit unsteadiness - discussed therapy. 07/02/2016 Appointment: Carleen Anaya WPtel: [facility]5 [facility] (15 min) Moderate 07/02/2016 Patient Education: Patient Medication Summary Completed 07/02/2016 Care Plan: Referral Order SNOMED-CT : 669151715 Pending 07/02/2016 Visit Plan: Hypertension - well controlled - continue with current medications, continue with no added salt diet. Pt has been encouraged to exercise daily.The pt has been advised to call the office if there are any acute concerns about change in blood pressure readings at home.Esophageal Reflux - the patient has been counseled against excessive intake of caffeine, spicy foods, peppermint, and cinnamon - all of which can exacerbate esophageal reflux.The patient is to take medications as prescribed and call the office if the symptoms are not improving.Continue with Carafate - will send pt for outpatient speech eval.stay off of fosamax x 6 more weeksPt is planning on getting a flu shot at [facility] and she is due for another pneumovax-last pneumovax was in 2008 - so she can have pneumovax now and the prevnar in 2017 05/21/2016 Appointment: Carleen Anaya WPtel: [facility]5 [facility] (15 min) Moderate 05/21/2016 Patient Education: Patient Medication Summary Completed 05/21/2016 Referral: Medardo Del Real [id number] Referral Completed 05/12/2016 Visit Plan: Esophageal Reflux - the patient has been counseled against excessive intake of caffeine, spicy foods, peppermint, and cinnamon - all of which can exacerbate esophageal reflux.The patient is to take medications as prescribed and call the office if the symptoms are not improving.HOLD fosamax x 1 monthstart on carafate 1 gram four times daily 05/07/2016 Appointment: Carleen Anaya WPtel: [facility] (15 min) Moderate 05/07/2016 Patient Education: Patient Medication Summary Completed 05/07/2016 Appointment: Mimi Espinosa WPtel: [facility]1 [place] [phone] (30 min) Complex 05/01/2016 Visit Plan: Allergies - chronic - recommended pt to use allergy medication as prescribed. Pt has been counseled as to the appropriate use of the medication. Pt to call if allergy symptoms are not controlled with the medication.If using nasal spray, instructions as follows: Nasal spray- use twice daily, one spray per nostril twice daily, after 30 minutes, rinse out nose with saline spray.. Use opposite hand per nostril to spray in the nasal steroid allergy spray.Kenalog injection today in the office Sore dkawpf-vybxvnmxt-lyjul dexilant-refer to Dr Del Real for evaluation 04/28/2016 Appointment: Mimi Espinosa WPtel: [facility]3 [address] (30 min) Complex 04/28/2016 Patient Education: Patient Medication Summary Completed 04/28/2016 Appointment: Nurse Visit 04/10/2016 Patient Education: Patient Medication Summary Completed 04/10/2016 Visit Plan: Neck Pain- pt to start with aspercreme or biofreeze to neck three times daily and start neck exercises daily. Notify clinic if symptoms do not improve, if they worsen, or with any concerns.URI - Pt advised to increase fluids, vitamin C. Discussed natural and expected course of this diagnosis and need to alert me if symptoms do not follow expected course, or if any worse. RX sent to patient's pharmacy.UTI - culture back, medication switched. 04/07/2016 Appointment: Wend[facility] Uriostegui [facility]el[phone] (30 min) Complex 04/07/2016 Patient Education: Patient Medication Summary Completed 04/07/2016 Patient Education: .Cervicalgia Neck Pain Completed 04/07/2016 Visit Plan: Hypertension - well controlled - continue with current medications, continue with no added salt diet. Pt has been encouraged to exercise daily.The pt has been advised to call the office if there are any acute concerns about change in blood pressure readings at home.Hypothyroidism - pt with chronic hypothyroidism, continue with current medication, will monitor pt to signs or symptoms of lack of adequate supplementation. Pt is to continue with current dose of medication unless directed otherwise. Check labs at regular intervals wither q 3 months or q 6 months based on previous levels of control.Fatigue- check labs including UA-culture if positive Urge catcdgiyeark-sgbugqavf-wgwxr UA with C&S 04/03/2016 Appointment: Mimi Espinosa WPtel: [facility]5 [phone] (30 min) Complex 04/03/2016 Patient Education: Patient Medication Summary Completed 04/03/2016 Visit Plan: Hypertension - well controlled - continue with current medications, continue with no added salt diet. Pt has been encouraged to exercise daily.The pt has been advised to call the office if there are any acute concerns about change in blood pressure readings at home.Umyegfgxl-efkpanku-geygzqaz MRI brain Right ankle kore-lharwid-vsmv right ankle-plan to refer to physical therapy if appropriate 01/31/2016 Appointment: Mimi Espinosa WPtel: [facility]5 [phone] (30 min) Complex 01/31/2016 Patient Education: Patient Medication Summary Completed 01/31/2016 Patient Education: Hypertension Completed 01/31/2016 Care Plan: MRI BRAIN STEM W/O DYE Pending 01/31/2016 Visit Plan: Hypertension - well controlled - continue with current medications, continue with no added salt diet. Pt has been encouraged to exercise daily.The pt has been advised to call the office if there are any acute concerns about change in blood pressure readings at home.Allergies -recommended pt to use allergy medication as prescribed. Pt has been counseled as to the appropriate use of the medication. Pt to call if allergy symptoms are not controlled with the medication.If using nasal spray, instructions as follows: Nasal spray- use twice daily, one spray per nostril twice daily, after 30 minutes, rinse out nose with saline spray.. Use opposite hand per nostril to spray in the nasal steroid allergy spray.Hypothyroidism - pt with chronic hypothyroidism, continue with current medication, will monitor pt to signs or symptoms of lack of adequate supplementation. Pt is to continue with current dose of medication unless directed otherwise. Check labs at regular intervals wither q 3 months or q 6 months based on previous levels of control.Hyperlipidemia - pt has been counseled about appropriate [...] diet. Pt has been encouraged to exercise daily.The pt has been advised to call the office if there are any acute concerns about change in blood pressure readings at home.Urge incontinence -Pt has urge incontinence - the patient has been counseled about potential triggers for increase in sensation of the urgency - the pt has been counseled to avoid caffeinated products, spicy products, and to urinate every 2-3 hours to prevent the incontinence associated with the urgency. Pt is to continue with current treatment plan and call if symptoms worsen.Memory loss-doing well with namenda- continue 10mg twice daily 10/01/2015 Appointment: (15 min) Moderate 10/01/2015 Patient Education: Patient Medication Summary Completed 10/01/2015 Patient Education: Hypertension Completed 10/01/2015 Visit Plan: Hypertension - well controlled - continue with current medications, continue with no added salt diet. Pt has been encouraged to exercise daily.The pt has been advised to call the office if there are any acute concerns about change in blood pressure readings at home.Hypothyroidism - pt with chronic hypothyroidism, continue with current medication, will monitor pt to signs or symptoms of lack of adequate supplementation. Pt is to continue with current dose of medication unless directed otherwise. Check labs at regular intervals wither q 3 months or q 6 months based on previous levels of control.Urge incontinence-switch to vesicare Dementia-patient was on namenda per Dr Lobo- wants to try it again-samples provided 08/30/2015 Appointment: [...] the office next week for practitioner to review.The pt is to call for acute concerns.Hypothyroidism - pt with chronic hypothyroidism, continue with current medication, will monitor pt to signs or symptoms of lack of adequate supplementation. Pt is to continue with current dose of medication unless directed otherwise. Check labs at regular intervals wither q 3 months or q 6 months based on previous levels of control.Hyperlipidemia - pt has been counseled about appropriate [...] medications. 07/31/2015 Appointment: Carleen Anaya WPtel: [phone] (15 min) Moderate 07/31/2015 Patient Education: Patient Medication Summary Completed 07/31/2015 Patient Education: Hypertension Completed 07/31/2015 Care Plan: Referral Order SNOMED-CT : [id number] Ordered 07/31/2015 Visit Plan: Hypertension - uncontrolled [...] the office next week for practitioner to review.The pt is to call for acute concerns.Chronic Anticoagulant use - Pt has been counseled about the anticoagulant, need for serial monitoring, and need for the pt to alert the physician as to any new bruising, or acute bleeding. Therapeutic goal for INR is between 2.0 and 3.5.Dizziness - recommended pt to start on Nortryptyline 07/03/2015 Appointment: Carleen Anaya WPtel: [address] [place], [place] [address] (15 min) Moderate 07/03/2015 Patient Education: Patient Medication Summary Completed 07/03/2015 Patient Education: Hypertension Completed 07/03/2015 Visit Plan: hypertension- well controlled today, no changes to medicationsmacular degeneration- continue f/u appt's with eye doctor. stop aspirin one week before next eye injectionperipheral vascular disease with neuropathy- color changes to [...] diet. Pt has been encouraged to exercise daily.The pt has been advised to call the office if there are any acute concerns about change in blood pressure readings at home.Constipation - uncontrolled - I have discussed with the patient the need for adequate fiber and water intake to facilitate soft, easily passed stools. The pt noted understanding of our conversation. I have given the patient a recipe for "power pudding" - equal parts, bran flakes, prune juice, and apple sauce. The pt is to call if symptoms not improved on this regimen.Hypothyroidism - pt with chronic hypothyroidism, continue with current medication, will monitor pt to signs or symptoms of lack of adequate supplementation. Pt is to continue with current dose of medication unless directed otherwise. Check labs at regular intervals wither q 3 months or q 6 months based on previous levels of control.Urge incontinence -Pt has urge incontinence - the [...] 01/11/2015 Ref[phone] Referral Appointment Requested Referral: External, Ordering Provider Referral Appointment Requested [facility] [facility] Requested Instructions Comment Flonase 1 [...] planning on getting a flu shot at [facility] and she is due for another [...] gel Gait unsteadiness - discussed therapy. . Neck Pain- pt to start with [...] call if symptoms do not improve. . Hypertension - uncontrolled - the patient's [...] Kenalog injection today in the office Sore cdkxqb-brcwywioi-ljtyy dexilant-refer to Dr Del Real for evaluation [...] is worsening or does not improve. . Pneumonia - Pt has been diagnosed with pneumonia by physical exam. A chest xray has been ordered as have antibiotics. The pt is aware of the diagnosis and the need for acute treatment of this illness. cefdinir rx to pharmacy - prednisone 40mg daily x 3 days Right shoulder pain - rx for xray sent with pt. CHECK LABS CHECK URINE . Hypertension - [...] Fatigue-check labs including UA-culture if positive Urge utijwhlngneb-cgtjwqesz-jvnif UA with C&S . Hypertension - well controlled - continue with current medications, continue with no added salt diet. Pt has been encouraged to exercise daily. The pt has been advised to call the office if there are any acute concerns about change in blood pressure readings at home. Jwbuuczia-vkdkslkb-uppslnal MRI brain Right ankle ytpy-cscxaev-jngs right ankle-plan to refer to physical therapy if appropriate . Hypertension - well controlled - continue [...] office if the symptoms are not improving. Stop Oxybutynin chloride ER. Start Vesicare once [...] Lobo-wants to try it again-samples provided . Hypertension - uncontrolled - the patient's [...] - recommended pt to start on Nortryptyline HOLD fosamax x 1 month start on [...]
[2019-01-01 11:34] LABS: BASOPHILS % (AUTO) 0 % (0-10); EOSINOPHILS # (AUTO) 0.2 10^3/uL (0.0-0.3); EOSINOPHILS % (AUTO) 4 % (0-10); HEMATOCRIT 40 % (35-52); HEMOGLOBIN 12.4 G/DL (11.5-16.0); LYMPHOCYTES # (AUTO) 1.2 X 10^3 (1.0-4.0); LYMPHOCYTES % (AUTO) 19 % (12-44); MEAN CORPUSCULAR HEMOGLOBIN 28 PG (25-34); MEAN CORPUSCULAR HGB CONC 31 G/DL (32-36); MEAN CORPUSCULAR VOLUME 92 FL (80-99); MEAN PLATELET VOLUME 9.3 FL (7.4-10.4); MONOCYTES # (AUTO) 0.4 X 10^3 (0.0-1.0); MONOCYTES % (AUTO) 7 % (0-12); NEUTROPHILS # (AUTO) 4.6 X 10^3 (1.8-7.8); NEUTROPHILS % (AUTO) 70 % (42-75); PLATELET COUNT 184 10^3/uL (130-400); RED CELL DISTRIBUTION WIDTH 14.1 % (10.0-14.5); WHITE BLOOD COUNT 6.5 10^3/uL (4.3-11.0)
--- NOTE | 2019-01-01 11:37 | ED Lower Extremity ---
General Chief Complaint: Lower Extremity Stated Complaint: L KNEE SWELLING Nursing Triage Note: PT TO RM 5 WITH COMPLAINT OF LEFT KNEE SWELLING. STATES SHE NOTICED THE SWELLING THIS AM. PT HAS BLISTER ON KNEE. STATES ONE BLISTER ALREADY POPPED. DENIES INJURY TO KNEE. Nursing Sepsis Screen: No Definite Risk Source: patient, family Exam Limitations: no limitations History of Present Illness Date Seen by Provider: January 01, 2019 Time Seen by Provider: 11:35 Initial Comments This 88-year-old white female presents with left knee swelling and pain that she noted last night and which has progressed this morning. Patient is status post left knee replacement approximately 30 years ago. The patient noted redness over the anterior aspect of the left knee with blisters both intact and broken. She denies fever or chill, headache or stiff neck, shortness of breath or productive cough, nausea vomiting or diarrhea. Past medical history includes replacement of an aortic valve. The patient is on daily oxygen. Allergies and Home Medications Allergies Coded Allergies: meperidine (Verified Allergy, Unknown, 07/28/14) pentazocine (Verified Allergy, Unknown, 07/28/14) codeine (Verified Adverse Reaction, Mild, NAUSEA, 07/28/14) morphine (Verified Adverse Reaction, Mild, NAUSEA, 07/28/14) Home Medications Aspirin 81 Mg Tablet.dr, 81 MG PO MoFr, (Reported) Cholecalciferol (Vitamin D3) 2,000 Unit Capsule, 2,000 UNIT PO DAILY, (Reported) Cyanocobalamin (Vitamin B-12) 500 Mcg Tablet, 500 MCG PO DAILY, (Reported) Cyproheptadine HCl 4 Mg Tablet, 2 MG PO Q8HR Prescribed by: MALLORIE CONTRERAS on 06/08/17940 Diclofenac Sodium 100 Gm Gel..gram., TP DAILY PRN for BACK PAIN, (Reported) Docusate Sodium 100 Mg Capsule, 100 MG PO HS, (Reported) Enoxaparin Sodium 40 Mg/0.4 Ml Syringe, 40 MG SC DAILY Prescribed by: MALLORIE CONTRERAS on 06/08/17940 Furosemide 40 Mg Tablet, 40 MG PO DAILY PRN for edema Prescribed by: MALLORIE CONTRERAS on 06/08/17940 L. Acidophilus/Bulgaricus 1 Each Tab.chew, 1 TAB.CHEW PO 1500, (Reported) Levothyroxine Sodium 137 Mcg Tablet, 137 MCG PO DAILY, (Reported) Losartan Potassium 25 Mg Tablet, 25 MG PO DAILY, (Reported) Metoprolol Succinate 100 Mg Tab.er.24h, 100 MG PO DAILY, (Reported) Multivit-Minerals/Folic Acid 80 Mcg Tab.chew, 2 TAB.CHEW PO DAILY, (Reported) Pantoprazole Sodium 40 Mg Tablet.dr, 40 MG PO BID Prescribed by: MALLORIE CONTRERAS on 06/08/17940 Polyethylene Glycol 3350 17 Gm Powd.pack, 17 GM PO Q72H, (Reported) Potassium Chloride 20 Meq Tab.er.prt, 20 MEQ PO BID WITH MEALS Prescribed by: MALLORIE CONTRERAS on 06/08/17940 Sucralfate 1 Gm Tablet, 1 GM PO ACHS Prescribed by: MALLORIE CONTRERAS on 06/08/17940 Vit C/E/Zn/Coppr/Lutein/Zeaxan 1 Each Capsule, 1 CAP PO BID, (Reported) Warfarin Sodium 3 Mg Tablet, 3 MG PO DAILY@1800 Prescribed by: MALLORIE CONTRERAS on 06/08/17940 Patient Home Medication List Home Medication List Reviewed: Yes Review of Systems Constitutional: No chills, No fever EENTM: no symptoms reported Respiratory: no symptoms reported Cardiovascular: no symptoms reported Gastrointestinal: No abdominal pain Genitourinary: no symptoms reported : No Musculoskeletal: see HPI, joint pain (left knee) Skin: change in color Psychiatric/Neurological: No Symptoms Reported Past Twynubz-[id number]-Mcvvnv Hx Past Med/Social Hx: Reviewed Nursing Past Med/Soc Hx Patient Social History Alcohol Use: Rarely Uses Number of Drinks Today: Alcohol Beverage of Choice: Wine Recreational Drug Use: No Smoking Status: Former Smoker Type Used: Cigarettes Former Smoker, Quit: December 15, 1948 2nd Hand Smoke Exposure: No Recent Foreign Travel: No Contact w/Someone Who Travel: No Recent Infectious Disease Expo: No Recent Hopitalizations: No Immunizations Up To Date Tetanus Booster (TDap): Unknown PED Vaccines UTD: No Date of Pneumonia Vaccine: Jul 17, 2009 Date of Influenza Vaccine: Apr 17, 2014 Seasonal Allergies Seasonal Allergies: No Past Medical History Surgeries: Yes (D&C, MASTECTOMY, hernia) Adenoidectomy, Appendectomy, Bladder Surgery, Cardiac, Eye Surgery, Gallbladder, Hysterectomy, Lumpectomy, Orthopedic, Thyroidectomy, Tonsillectomy Respiratory: No Currently Using CPAP: No Cardiac: Yes (HEART VALVE REPLACEMENT FEBRUARY 2014 ) Heart Attack, High Cholesterol, Hypertension Neurological: No (daughter wonders about first stage of Alhemzier) Dementia Reproductive Disorders: No Female Reproductive Disorders: Denies Sexually Transmitted Disease: No HIV/AIDS: No UTI-Chronic Gastrointestinal: Yes Chronic Diarrhea, Gall Bladder Disease Musculoskeletal: Yes (TOTAL KNEE X2, HX LEFT COLLARBONE FX ) Arthritis, Chronic Back Pain, Fractures Endocrine: Yes (THYROIDECTOMY FOR GOITER) Hypothyroidsim HEENT: Yes Cataract, Double Vision Hearing Impairment: Hard of Hearing Cancer: Yes (HX OF BREAST CA ) Breast Did You Recieve Any Treatments: No What Type of Treatment Did You: Surgical Intervention Psychosocial: No Integumentary: No Blood Disorders: Yes (BLOOD CLOTS) Adverse Reaction/Blood Tranf: No Family Medical History FH: breast cancer 19 MOTHER AUNT AUNT AUNT DAUGHTER FH: cancer of GI tract G8 BROTHER FH: lung cancer 19 FATHER G8 BROTHER Myocardial infarction G8 BROTHER G8 BROTHER G8 BROTHER Heart Disease, Cancer, Hypertension Physical Exam Vital Signs Vital Signs - First Documented 01/01/19 10:43 Pulse 82 Resp 20 B/P (MAP) 157/72 (100) Pulse Ox 94 O2 Delivery Room Air Capillary Refill : Less Than 3 Seconds Height, Weight, BMI Height: 5'6.00" Weight: 160lbs. 2.0oz. [id number]; 29.8 BMI Method:Stated General Appearance: WD/WN, no apparent distress HEENT: normal ENT inspection Neck: normal inspection Cardiovascular: regular rate, rhythm Respiratory: lungs clear Gastrointestinal: normal bowel sounds Back: normal inspection Knees: left knee pain, left knee soft tissue tenderness, left knee swelling, left knee other (there is an area of erythema over the anterior aspect left knee with associated blisters.) Neurologic/Tendon: normal sensation, normal motor functions Neurologic/Psychiatric: no motor/sensory deficits, alert, normal mood/affect Progress/Results/Core Measures Results/Orders Lab Results Laboratory Tests Test 01/01/19 11:27 Range/Units White Blood Count 6.5 4.3-11.0 10^3/uL Red Blood Count 4.36 4.35-5.85 10^6/uL Hemoglobin 12.4 11.5-16.0 G/DL Hematocrit 40 35-52 % Mean Corpuscular Volume 92 80-99 FL Mean Corpuscular Hemoglobin 28 25-34 PG Mean Corpuscular Hemoglobin Concent 31 L 32-36 G/DL Red Cell Distribution Width 14.1 10.0-14.5 % Platelet Count 184 130-400 10^3/uL Mean Platelet Volume 9.3 7.4-10.4 FL Neutrophils (%) (Auto) 70 42-75 % Lymphocytes (%) (Auto) 19 12-44 % Monocytes (%) (Auto) 7 0-12 % Eosinophils (%) (Auto) 4 0-10 % Basophils (%) (Auto) 0 0-10 % Neutrophils # (Auto) 4.6 1.8-7.8 X 10^3 Lymphocytes # (Auto) 1.2 1.0-4.0 X 10^3 Monocytes # (Auto) 0.4 0.0-1.0 X 10^3 Eosinophils # (Auto) 0.2 0.0-0.3 10^3/uL Basophils # (Auto) 0.0 0.0-0.1 10^3/uL Erythrocyte Sedimentation Rate 41 H 0-30 MM/HR C-Reactive Protein High Sensitivity 0.41 0.00-0.50 MG/DL My Orders Orders - DAVID JUNG MD Erythrocyte Sedimentation Rate (01/01/19 11:12) Cbc With Automated Diff (01/01/19 11:12) Knee, Left, 3 Views (01/01/19 11:12) Wound Culture (01/01/19 11:12) Hs C Reactive Protein (01/01/19 11:12) Vital Signs/I&O 01/01/19 10:43 Pulse 82 Resp 20 B/P (MAP) 157/72 (100) Pulse Ox 94 O2 Delivery Room Air Blood Pressure Mean: 100 Progress Progress Note : Time: 13:06 Progress Note X-ray of the left knee demonstrated the prosthetic knee with some degenerative changes. The patient's CBC was unremarkable her sedimentation rate was minimally elevated at 40. I discussed the patient's presentation with Dr. Castellanos who recommended that we cover the patient with Keflex for this possible early cellulitis. I discussed the range with patient and senior financial consultant and the patient was started on Keflex 500 mg 4 times a day for 10 days. I asked that she follow-up with her orthopedic surgeon and her primary care physician early this next week. I invited to return to emergency department she had a further problems or questions. Departure Impression Primary Impression: Cellulitis Qualified Codes: L03.116 - Cellulitis of left lower limb Disposition: HOME, SELF-CARE Condition: Unchanged Departure-Patient Inst. Decision time for Depature: 13:08 Referrals: MALLORIE CONTRERAS MD (PCP/Family) Primary Care Physician Patient Instructions: Cellulitis (Skin Infection), Adult (DC) Add. Discharge Instructions: Keflex as prescribed. Close follow-up with the doctors DIANE and Mateo. Return if any problems or questions. All discharge instructions reviewed with patient and/or family. Voiced understanding. DAVID JUNG MD January 01, 2019 11:36
--- OUTSIDE RECORDS SUMMARY | 2019-01-01 11:37 | XMS REPORT | CCD ---
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 Medicare Part B [id number] Unknown Unknown Family history Father Diagnosis Age At Onset Cancer Unknown Arthritis Unknown Mother Diagnosis Age At Onset Breast cancer Unknown Arthritis Unknown Social History Social History Element Codes Description Effective Dates Marital status Unknown 01/11/2015 Number of children Unknown 3 01/11/2015 Employment Unknown Retired 01/11/[address]: 2351251 Quit over 10 years ago 1950 01/11/[address]: 446185373 Never drinks alcohol 01/11/2015 Allergies, Adverse Reactions, Alerts Allergies, Adverse Reactions, Alerts data not found Past Medical History Illness Codes Condition Status Onset Date Resolved Date Low back pain ICD-9: 724.2 ICD-10: M54.5 [...] ICD-9: 477.0 ICD-10: J30.1 Active 04/27/2016 Unknown 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 ICD-9: V58.61 [...] Problems Condition Codes Effective Dates Condition Status Low back pain ICD-9: 724.2 ICD-10: M54.5 [...] pollen ICD-9: 477.0 ICD-10: J30.1 04/27/2016 Active [facility] (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 of anticoagulants ICD-9: V58.61 ICD-10: [...] Fill Instructions ciprofloxacin 500 mg tablet RxNorm: 517042 1 Tablet(s) PO BID 2017 03/13/2017 Active prednisone 20 mg tablet RxNorm: 060802 2 Tablet(s) PO daily 03/03/2017 03/07/2017 Active tramadol 50 mg tablet RxNorm: 442952 1/2 Tablet(s) PO TID as needed 03/03/2017 No Stop Date Active pravastatin 10 mg tablet RxNorm: 023142 TAKE ONE TABLET BY MOUTH ONCE DAILY 01/19/2017 01/13/2018 Active nortriptyline 10 mg capsule RxNorm: 809751 TAKE ONE CAPSULE BY MOUTH ONCE DAILY IN THE EVENING 01/14/2017 04/13/2017 Active Voltaren 1 % topical gel RxNorm: 277505 TOP QID 12/22/2016 02/19/2017 Inactive Voltaren 1 % topical gel RxNorm: 877442 TOP QID 12/22/2016 12/21/2016 Inactive Flector 1.3 % transdermal 12 hour patch RxNorm: 192416 1 Patch TOP every 12 hours as needed 12/19/2016 No Stop Date Active prednisone 20 mg tablet RxNorm: 756894 2 Tablet(s) PO daily 12/19/2016 12/23/2016 Inactive cyclobenzaprine 5 mg tablet RxNorm: 059938 1/2 Tablet(s) PO BID as needed 12/19/2016 12/23/2016 Inactive losartan 25 mg tablet RxNorm: 930900 1 Tablet(s) PO daily TAKE ONE TABLET BY MOUTH ONCE DAILY 11/13/2016 11/07/2017 Active Namenda 10 mg tablet RxNorm: 980417 TAKE ONE TABLET BY MOUTH TWICE DAILY 10/28/2016 04/25/2017 Active nortriptyline 10 mg capsule RxNorm: 416800 TAKE ONE CAPSULE BY MOUTH ONCE DAILY IN THE EVENING 10/13/2016 01/10/2017 Inactive ceftriaxone 500 mg solution for injection RxNorm: 0176703 Inj 10/06/2016 10/06/2016 Inactive cefdinir 300 mg capsule RxNorm: 068659 1 Capsule(s) PO BID 10/06/2016 10/12/2016 Inactive prednisone 20 mg tablet RxNorm: 342648 2 Tablet(s) PO daily 10/06/2016 10/08/2016 Inactive ProAir RespiClick 90 mcg/actuation breath activated RxNorm: 2509941 2 INH TID x 3 days then one inhale tid x 3 days then prn shortness of breath 10/06/2016 11/04/2016 Inactive Kenalog 40 mg/mL suspension for injection RxNorm: 5080125 1 Milliliter(s) Inj 10/06/2016 10/06/2016 Inactive Myrbetriq 50 mg tablet,extended release RxNorm: 4699631 1 Tablet(s) PO daily 09/11/2016 11/12/2016 Inactive hydrochlorothiazide 25 mg tablet RxNorm: 619905 1 Tablet(s) PO daily 07/25/2016 07/19/2017 Active Namenda 10 mg tablet RxNorm: 921387 TAKE ONE TABLET BY MOUTH TWICE DAILY 07/25/2016 10/22/2016 Inactive Synthroid 125 mcg tablet RxNorm: 105346 TAKE ONE TABLET BY MOUTH ONCE DAILY 07/14/2016 03/10/2017 Active losartan 25 mg tablet RxNorm: 671778 TAKE ONE TABLET BY MOUTH ONCE DAILY 07/07/2016 11/12/2016 Inactive metoprolol succinate ER 100 mg tablet,extended release 24 hr RxNorm: 600184 1 Tablet(s) PO daily 06/16/2016 06/10/2017 Active nortriptyline 10 mg capsule RxNorm: 457150 Capsule(s) TAKE ONE CAPSULE BY MOUTH ONCE DAILY IN THE EVENING 06/09/2016 10/06/2016 Inactive Myrbetriq 50 mg tablet,extended release RxNorm: 8200819 1 Tablet(s) PO daily 05/21/2016 09/10/2016 Inactive Carafate 100 mg/mL oral suspension RxNorm: 670776 10 Milliliter(s) PO QID 05/07/2016 09/03/2016 Inactive doxycycline hyclate 100 mg tablet RxNorm: 435715 1 Tablet(s) PO BID 05/07/2016 05/13/2016 Inactive Kenalog 40 mg/mL suspension for injection RxNorm: 7919829 Milliliter(s) Inj 04/28/2016 04/28/2016 Inactive losartan 25 mg tablet RxNorm: 546242 TAKE ONE TABLET BY MOUTH ONCE DAILY 04/08/2016 07/06/2016 Inactive ciprofloxacin 500 mg tablet RxNorm: 708582 1 Tablet(s) PO BID 04/07/2016 04/13/2016 Inactive cyclobenzaprine 5 mg tablet RxNorm: 255024 1 Tablet(s) PO TID 04/07/2016 04/16/2016 Inactive Keflex 500 mg capsule RxNorm: 627552 1 Capsule(s) PO TID 04/03/2016 04/02/2016 Inactive Keflex 500 mg capsule RxNorm: 871506 1 Capsule(s) PO TID 04/03/2016 04/09/2016 Inactive losartan 25 mg tablet RxNorm: 550269 TAKE ONE TABLET BY MOUTH ONCE DAILY 03/06/2016 04/07/2016 Inactive nortriptyline 10 mg capsule RxNorm: 197922 TAKE ONE CAPSULE BY MOUTH ONCE DAILY IN THE EVENING 03/06/2016 06/03/2016 Inactive pravastatin 10 mg tablet RxNorm: 307959 TAKE ONE TABLET BY MOUTH ONCE DAILY 02/04/2016 01/18/2017 Inactive warfarin 4 mg tablet RxNorm: 638637 Tablet(s) PO q d except 5mg on tue 01/31/2016 No Stop Date Active Myrbetriq 50 mg tablet,extended release RxNorm: 2705304 1 Tablet(s) PO daily 01/17/2016 05/15/2016 Inactive Namenda 10 mg tablet RxNorm: 866517 1 Tablet(s) PO BID 01/01/2016 06/28/2016 Inactive Myrbetriq 50 mg tablet,extended release RxNorm: 9417812 1 Tablet(s) PO daily 12/20/2015 12/20/2015 Inactive Synthroid 125 mcg tablet RxNorm: 801255 1 Tablet(s) PO daily 11/14/2015 07/10/2016 Inactive nortriptyline 10 mg capsule RxNorm: 348069 TAKE ONE CAPSULE BY MOUTH ONCE DAILY IN THE EVENING 11/05/2015 03/03/2016 Inactive Myrbetriq 50 mg tablet,extended release RxNorm: 3948336 1 Tablet(s) PO daily 10/01/2015 12/19/2015 Inactive Namenda 10 mg tablet RxNorm: 310584 1 Tablet(s) PO BID 08/30/2015 12/31/2015 Inactive Vesicare 10 mg tablet RxNorm: 287557 1 Tablet(s) PO daily 08/30/2015 09/30/2015 Inactive warfarin 4 mg tablet RxNorm: 979893 Tablet(s) PO 08/30/2015 01/30/2016 Inactive Synthroid 125 mcg tablet RxNorm: 591165 1 Tablet(s) PO daily 08/02/2015 11/13/2015 Inactive Synthroid 125 mcg tablet RxNorm: 649009 Tablet(s) PO 08/01/2015 08/01/2015 Inactive losartan 25 mg tablet RxNorm: 986657 1 Tablet(s) PO daily 07/31/2015 02/25/2016 Inactive pravastatin 10 mg tablet RxNorm: 368330 1 Tablet(s) PO daily 07/23/2015 01/18/2016 Inactive hydrochlorothiazide 25 mg tablet RxNorm: 833873 1 Tablet(s) PO daily 07/19/2015 07/12/2016 Inactive nortriptyline 10 mg capsule RxNorm: 165229 1 Capsule(s) PO QPM 07/03/2015 10/30/2015 Inactive metoprolol succinate ER 100 mg tablet,extended release 24 hr RxNorm: 027130 1 Tablet(s) PO daily 06/06/2015 05/30/2016 Inactive pravastatin 10 mg tablet RxNorm: 418602 1 Tablet(s) PO daily 01/22/2015 07/20/2015 Inactive Fosamax 5 mg tablet RxNorm: 490058 1 Tablet(s) QW 01/11/2015 No Stop Date Active aspirin 81 mg capsule,delayed release RxNorm: 707287 1 Capsule(s) PO daily 01/11/2015 02/09/2015 Inactive oxybutynin chloride ER 10 mg tablet,extended release 24 hr RxNorm: 059710 1 Tablet(s) PO daily 01/11/2015 08/29/2015 Inactive Tylenol PM oral RxNorm: 926332 oral No Start Date Active Colace 100 mg capsule RxNorm: 3206314 Capsule(s) PO No Start Date Active Micro-K 10 10 mEq capsule,extended release RxNorm: 646660 1 Capsule(s) PO daily No Start Date Active PreserVision AREDS 2 oral RxNorm: 6882748 oral No Start Date Active pravastatin 10 mg tablet RxNorm: 289679 1 Tablet(s) PO daily No Start Date 01/21/2015 Inactive Synthroid 100 mcg tablet RxNorm: 184692 Tablet(s) PO No Start Date 07/31/2015 Inactive hydrochlorothiazide 25 mg tablet RxNorm: 389069 1 Tablet(s) PO daily No Start Date 07/18/2015 Inactive warfarin 2 mg tablet RxNorm: 709596 Tablet(s) PO No Start Date 08/29/2015 Inactive metoprolol succinate ER 100 mg tablet,extended release 24 hr RxNorm: 722653 1 Tablet(s) PO daily No Start Date 06/05/2015 Inactive warfarin 3 mg tablet RxNorm: 445034 Tablet(s) PO No Start Date 08/29/2015 Inactive Medication Administered Medication Codes Instructions Start Date Status Kenalog 40 mg/mL suspension for injection RxNorm: 6005691 1Milliliter 10/06/2016 No longer Active ceftriaxone 500 mg solution for injection RxNorm: 5166815 10/06/2016 No longer Active Kenalog 40 mg/mL suspension for injection RxNorm: 9306377 Milliliter 04/28/2016 No longer Active Immunizations Vaccine Codes Date Status Influenza CVX: 141 06/10/2016 completed Pneumococcal CVX: 133 05/29/2016 completed Influenza CVX: 141 07/03/2015 completed Assessments Condition Codes Effective Dates Sacroiliitis, not elsewhere classified ICD-10: M46.1 ICD-9: [...] to pollen ICD-10: J30.1 ICD-9: 477.0 04/28/2016 [facility] (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 of anticoagulants ICD-10: Z79.01 ICD-9: [...] Code Item Item Code Result Date Pt Coz2562 PT 24.2 seconds 04/14/2016 Pt Ccz3902 INR 2.3 04/14/2016 Pt Hmf6533 Low Intensity - 1.5-2.0 04/14/2016 Pt Mrf0213 Mod intensity - 2.0-3.0 04/14/2016 Pt Yyg9502 Hi intensity - 3.0-4.0 04/14/2016 Pt Hyi7924 PT 31.3 seconds 04/10/2016 Pt Xhg0340 INR 3.3 04/10/2016 Pt Ghk3447 Low Intensity - 1.5-2.0 04/10/2016 Pt Lkp4043 Mod intensity - 2.0-3.0 04/10/2016 Pt Uyk7076 Hi intensity - 3.0-4.0 04/10/2016 C RAP A SC [id number] Strep A Negative 04/10/2016 Urine Culture Ucult Complete >100,000 col/ml aerobic growth sent to ref lab 04/04/2016 Comp Metabolic Vaa175 NA 136 mEq/L 04/03/2016 Comp Metabolic Yht706 K 3.9 mEq/L 04/03/2016 Comp Metabolic Wwf926 CL 99 mEq/L 04/03/2016 Comp Metabolic Eng414 CO2 32.0 mEq/L 04/03/2016 Comp Metabolic Bvk303 ANION GAP 9 04/03/2016 Comp Metabolic Sxs400 GLUCOSE 88 mg/dL 04/03/2016 Comp Metabolic Mxj457 Creat 0.6 mg/dL 04/03/2016 Comp Metabolic Vey904 eGFR 93 ml/min/1.73m2 04/03/2016 Comp Metabolic Wmw888 BUN 15 mg/dL 04/03/2016 Comp Metabolic Xae633 B/C Ratio 23.4 Ratio 04/03/2016 Comp Metabolic Dwy294 CALCIUM 8.7 mg/dL 04/03/2016 Comp Metabolic Pqu089 ALK PHOS 100 U/L 04/03/2016 Comp Metabolic Ceg733 AST(SGOT) 28 U/L 04/03/2016 Comp Metabolic Jkx892 ALT(SGPT) 39 U/L 04/03/2016 Comp Metabolic Dlr639 BILI T 0.5 mg/dL 04/03/2016 Comp Metabolic Iou406 ALBUMIN 4.1 g/dL 04/03/2016 Comp Metabolic Dru391 TPRO 6.6 g/dL 04/03/2016 Comp Metabolic Jfg447 GLOB 2.5 g/dL 04/03/2016 Comp Metabolic Cjk954 A/G Ratio 1.7 Ratio 04/03/2016 Comp Metabolic Jyl205 Osmo 272 mOsmo 04/03/2016 Cbc With Differential [...] 29.0 pg 04/03/2016 Cbc With Differential Ord2 Ellis% 11.3 % 04/03/2016 Cbc With Differential Ord2 [...] 1.15 K/ul 04/03/2016 Cbc With Differential Ord2 Ellis ABS# 0.8 K/ul 04/03/2016 Cbc With Differential Ord2 Eos ABS# 0.2 K/ul 04/03/2016 Cbc With Differential Ord2 Baso ABS# 0.0 K/ul 04/03/2016 Tsh Ord6 hTSH II 3.06 uIU/mL 04/03/2016 Free T4 Utd559 FREE T4 0.99 ng/dL 04/03/2016 Free T4 Jhr243 FREE T4 0.81 ng/dL 07/31/2015 Comp Metabolic Rmz830 NA 136 mEq/L 07/31/2015 Comp Metabolic Vdi204 K 3.8 mEq/L 07/31/2015 Comp Metabolic Cas658 CL 97 mEq/L 07/31/2015 Comp Metabolic Orv450 CO2 29.0 mEq/L 07/31/2015 Comp Metabolic Vli033 ANION GAP 14 07/31/2015 Comp Metabolic Ask296 GLUCOSE 90 mg/dL 07/31/2015 Comp Metabolic Lhr338 Creat 0.7 mg/dL 07/31/2015 Comp Metabolic Eab014 eGFR 80 ml/min/1.73m2 07/31/2015 Comp Metabolic Ybs647 BUN 8 mg/dL 07/31/2015 Comp Metabolic Szq139 B/C Ratio 11.0 Ratio 07/31/2015 Comp Metabolic Xhq817 CALCIUM 8.9 mg/dL 07/31/2015 Comp Metabolic Vjf362 ALK PHOS 102 U/L 07/31/2015 Comp Metabolic Kjb470 AST(SGOT) 22 U/L 07/31/2015 Comp Metabolic Yww162 ALT(SGPT) 14 U/L 07/31/2015 Comp Metabolic Zks849 BILI T 0.5 mg/dL 07/31/2015 Comp Metabolic Cxv578 ALBUMIN 4.4 g/dL 07/31/2015 Comp Metabolic Ylz463 TPRO 6.7 g/dL 07/31/2015 Comp Metabolic Mvo532 GLOB 2.3 g/dL 07/31/2015 Comp Metabolic Ava026 A/G Ratio 1.9 Ratio 07/31/2015 Comp Metabolic Woo818 Osmo 270 mOsmo 07/31/2015 Tsh Ord6 hTSH [...] Lipid Ord30 C/HDL 4.8 Ratio 07/31/2015 Pt Hxm5910 PT 31.9 seconds 07/03/2015 Pt Gse2780 INR 3.2 07/03/2015 Pt Kup3220 Low Intensity - 1.5-2.0 07/03/2015 Pt Etq0652 Mod intensity - 2.0-3.0 07/03/2015 Pt Fhd4648 Hi intensity - 3.0-4.0 07/03/2015 Review of [...] dentition 10/16/2016 None Full Exam - General 1994 Ears/Nose/Throat lips/teeth/gingiva Overall: benign gingiva 10/16/2016 None [...] benign 01/11/2015 None Procedures Procedure Codes Date DRAIN/INJECT JOINT/BURSA CPT-4: 65487Pzxlfmf 03/03/2017 TRIAMCINOLONE ACET INJ NOS CPT-4: K1555Hhhlptt 03/03/2017 TRIAMCINOLONE ACET INJ NOS CPT-4: R4415Nrdvepm 10/06/2016 ROCEPHIN, PER 250 MG CPT-4: Y1450Hhfhkro 10/06/2016 THER/PROPH/DIAG INJ SC/IM CPT-4: 10736Fehvinj 10/06/2016 TRIAMCINOLONE ACET INJ NOS CPT-4: Z6192Ayjdwjl 04/28/2016 URINALYSIS NONAUTO W/O SCOPE CPT-4: 04586Aayymvs 04/03/2016 ADMIN INFLUENZA VIRUS VAC CPT-4: E5865Iblmhwn 07/03/2015 FLU VACC PRSV FREE INC ANTIG CPT-4: 71374Tmbqqfc 07/03/2015 Vital Signs Date Vital 03/03/2017 Blood Pressure 1: 154/88 Code: 8480-6 Heart Rate 1: 96 bpm Height: SpO2: 95% Weight: 01/05/2017 Blood Pressure 1: 142/78 Code: 8480-6 BMI: 28.9 Code: 16579-1 Heart Rate 1: 94 bpm Height: 5'6" SpO2: 95% Weight: 179 lbs 12/19/2016 Blood Pressure 1: 130/74 Code: 8480-6 Heart Rate 1: 91 bpm Height: 5'6" SpO2: 97% Weight: 11/13/2016 Blood Pressure 1: 152/82 Code: 8480-6 BMI: 28.4 Code: 69242-5 Heart Rate 1: 85 bpm Height: 5'6" SpO2: 96% Weight: 176 lbs 10/16/2016 Blood Pressure 1: 148/72 Code: 8480-6 BMI: 28.4 Code: 92707-7 Heart Rate 1: 90 bpm Height: 5'6" SpO2: 96% Weight: 176 lbs 10/06/2016 Blood Pressure 1: 150/80 Code: 8480-6 BMI: 28.4 Code: 38066-9 Heart Rate 1: 76 bpm Height: 5'6" SpO2: 97% Weight: 176 lbs 07/02/2016 Blood Pressure 1: 142/78 Code: 8480-6 BMI: 27.8 Code: 44334-2 Heart Rate 1: 85 bpm Height: 5'6" SpO2: 97% Weight: 172 lbs 05/21/2016 Blood Pressure 1: 166/80 Code: 8480-6 BMI: 27.9 Code: 75319-5 Heart Rate 1: 79 bpm Height: 5'6" SpO2: 98% Weight: 173 lbs 05/07/2016 Blood Pressure 1: 140/70 Code: 8480-6 BMI: 27.9 Code: 76241-5 Heart Rate 1: 82 bpm Height: 5'6" SpO2: 96% Weight: 173 lbs 04/28/2016 Blood Pressure 1: 128/86 Code: 8480-6 BMI: 27.4 Code: 13044-7 Heart Rate 1: 86 bpm Height: 5'6" SpO2: 96% Temperature: 36.1 (C) / 97.0 (F) Weight: 170 lbs 04/07/2016 Blood Pressure 1: 150/80 Code: 8480-6 Heart Rate 1: 94 bpm Height: SpO2: 95% Weight: 04/03/2016 Blood Pressure 1: 122/76 Code: 8480-6 BMI: 27.4 Code: 96964-4 Heart Rate 1: 84 bpm Height: 5'6" SpO2: 94% Weight: 170 lbs 01/31/2016 Blood Pressure 1: 124/82 Code: 8480-6 BMI: 27.8 Code: 28984-2 Heart Rate 1: 100 bpm Height: 5'6" SpO2: 97% Weight: 172 lbs 11/29/2015 Blood Pressure 1: 140/82 Code: 8480-6 Blood Pressure 1: 130/84 Code: 8480-6 BMI: 27.4 Code: 49161-0 Heart Rate 1: 97 bpm Height: 5'6" SpO2: 95% Weight: 170 lbs 10/01/2015 Blood Pressure 1: 130/80 Code: 8480-6 BMI: 27.4 Code: 68887-9 Heart Rate 1: 82 bpm Height: 5'6" SpO2: 97% Weight: 170 lbs 08/30/2015 Blood Pressure 1: 120/68 Code: 8480-6 BMI: 27.6 Code: 48663-7 Heart Rate 1: 91 bpm Height: 5'6" SpO2: 96% Weight: 171 lbs 07/31/2015 Blood Pressure 1: 180/80 Code: 8480-6 BMI: 27.4 Code: 11960-1 Heart Rate 1: 60 bpm Height: 5'6" SpO2: 94% Weight: 170 lbs 07/03/2015 Blood Pressure 1: 154/80 Code: 8480-6 BMI: 27.4 Code: 21503-3 Heart Rate 1: 98 bpm Height: 5'6" SpO2: 95% Weight: 170 lbs 04/10/2015 Blood Pressure 1: 138/72 Code: 8480-6 BMI: 27.8 Code: 25793-4 Heart Rate 1: 82 bpm Height: 5'6" SpO2: 98% Weight: 172 lbs 01/11/2015 Blood Pressure 1: 132/74 Code: 8480-6 BMI: 28.6 Code: 16027-9 Heart Rate 1: 88 bpm Height: 5'6" [...] not elsewhere classified[ICD10: M46.1] Wendi Anaya MD, [facility] CPT-4: 49946 03/03/2017 [id number]) 93721 EST. PATIENT, LEVEL IV Diagnosis: Essential (primary) hypertension[ICD10: I10] Diagnosis: Atrophy of thyroid (acquired)[ICD10: E03.4] Diagnosis: Vascular dementia without behavioral disturbance[ICD10: F01.50] Carleen Anaya MD, [facility] CPT-4: 23590 01/05/2017 66316 EST. PATIENT, LEVEL III Diagnosis: Cervicalgia[ICD10: M54.2] Diagnosis: Other muscle spasm[ICD10: M62.838] Wendi Anaya MD, [facility] CPT-4: 11327 12/19/2016 [id number]) 98755 EST. PATIENT, LEVEL III Diagnosis: Essential (primary) hypertension[ICD10: I10] Diagnosis: Gastro-esophageal reflux disease without esophagitis[ICD10: K21.9] Carleen Anaya MD, [facility] CPT-4: 55704 11/13/2016 [id number] 64311 EST. 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 PATIENT, LEVEL IV Diagnosis: Pneumonia due to other specified bacteria[ICD10: J15.8] Diagnosis: Pain in right shoulder[ICD10: M25.511] Diagnosis: Cough[ICD10: R05] Carleen Anaya MD, [facility] CPT-4: 82896 10/06/2016 ([id number]) 89128 EST. PATIENT, LEVEL IV Diagnosis: Essential (primary) hypertension[ICD10: I10] Diagnosis: Personal history of other specified conditions[ICD10: Z87.898] Diagnosis: Unsteadiness on feet[ICD10: R26.81] Carleen Anaya MD [facility] CPT- 4: 23979 07/02/2016 ([id number]) 89111 EST. PATIENT, LEVEL IV Diagnosis: Dysphagia, pharyngeal phase[ICD10: R13.13] Diagnosis: Urge incontinence[ICD10: N39.41] Diagnosis: Gastro-esophageal reflux disease without esophagitis[ICD10: K21.9] Carleen Anaya MD [facility] CPT-4: 15752 05/21/2016 ([id number]) 32379 EST. PATIENT, LEVEL III Diagnosis: Gastro-esophageal reflux disease without esophagitis[ICD10: K21.9] Carleen Anaya MD [facility] CPT-4: 70254 05/07/2016 ([id number]) 00880 EST. PATIENT, LEVEL III Diagnosis: Acute laryngopharyngitis[ICD10: J06.0] Diagnosis: Dysphagia, pharyngeal phase[ICD10: R13.13] Diagnosis: Allergic rhinitis due to pollen[ICD10: J30.1] Mimi Anaya MD, [facility] CPT-4: 26100 04/28/2016 ([id number]) Miscellaneous no charge Diagnosis: Acute laryngopharyngitis[ICD10: J06.0] Wendi Anaya MD, [facility] CPT- 4: 34485 04/10/2016 93238 EST. PATIENT, LEVEL IV Diagnosis: Cervicalgia[ICD10: M54.2] Diagnosis: Acute laryngopharyngitis[ICD10: J06.0] Diagnosis: FDC (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 of anticoagulants[ICD10: Z79.01] Diagnosis: Other cystitis without hematuria[ICD10: N30.80] Wendi Anaay MD, [facility] CPT-4: 68092 04/07/2016 ([id number]) 36706 EST. PATIENT, LEVEL IV Diagnosis: Essential (primary) hypertension[ICD10: I10] Diagnosis: Hypothyroidism, unspecified[ICD10: E03.9] Diagnosis: Other fatigue[ICD10: R53.83] Diagnosis: Urge incontinence[ICD10: N39.41] Mimi Anaya MD, [facility] CPT- 4: 00885 04/03/2016 ([id number]) 95622 EST. PATIENT, LEVEL IV Diagnosis: Essential (primary) hypertension[ICD10: I10] Diagnosis: Pain in right ankle and joints of right foot[ICD10: M25.571] Diagnosis: Dizziness and giddiness[ICD10: R42] Diagnosis: Tinnitus, bilateral[ICD10: H93.13] Mimi Anaya MD, [facility] CPT- 4: 65051 01/31/2016 ([id number]) 23696 EST. PATIENT, LEVEL IV Diagnosis: Essential (primary) hypertension[ICD10: I10] Diagnosis: Otalgia, right ear[ICD10: H92.01] Diagnosis: Allergic rhinitis due to pollen[ICD10: J30.1] Diagnosis: Hypothyroidism, unspecified[ICD10: E03.9] Mimi Anaya MD, [facility] CPT-4: 35251 11/29/2015 ([id number]) 74784 EST. PATIENT, LEVEL IV Diagnosis: Essential (primary) hypertension[ICD10: I10] Diagnosis: Urge incontinence[ICD10: N39.41] Diagnosis: Unspecified dementia without behavioral disturbance[ICD10: F03.90] Mimi Anaya MD, [facility] CPT-4: 44637 10/01/2015 ([id number]) 65775 EST. PATIENT, LEVEL IV Diagnosis: Essential (primary) hypertension[ICD10: I10] Diagnosis: Hypothyroidism, unspecified[ICD10: E03.9] Diagnosis: Unspecified dementia without behavioral disturbance[ICD10: F03.90] Diagnosis: Urge incontinence[ICD10: N39.41] Mimi Anaya MD, [facility] CPT- 4: 89582 08/30/2015 ([id number]) 56849 EST. PATIENT, LEVEL IV Diagnosis: Essential (primary) hypertension[ICD10: I10] Diagnosis: Hypothyroidism, unspecified[ICD10: E03.9] Diagnosis: Hyperlipidemia, unspecified[ICD10: E78.5] Carleen Anaya MD [facility] CPT-4: 26020 07/31/2015 ([id number]) 62470 EST. 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 PATIENT, LEVEL IV Diagnosis: ESSENTIAL HYPERTENSION[ICD9: 401.9] Diagnosis: MACULAR DEGENERATION[ICD9: 362.50] Diagnosis: Peripheral vascular disease[ICD9: 443.9] Diagnosis: Neuropathy[ICD9: 355.9] Carleen Anaya MD [facility] CPT-4: 73493 04/10/2015 ([id number]) OFFICE/OUTPATIENT VISIT NEW Diagnosis: ESSENTIAL HYPERTENSION[ICD9: 401.9] Diagnosis: HYPOTHYROIDISM[ICD9: 244.9] Diagnosis: URGE INCONTINENCE[ICD9: 788.31] Diagnosis: Constipation - functional[ICD9: 564.09] Carleen Anaya MD, [facility] CPT-4: 91681 01/11/2015 Plan of Care Planned Activity Notes Codes Status Date Visit Plan: Low back pain- The pt [...] injection. 03/03/2017 Appointment: Wendi Uriostegui WPtel: [phone] [facility] (30 min) Complex 03/03/2017 Patient Education: Patient [...] control. 01/05/2017 Appointment: Carleen Anaya WPtel: [phone] [facility] (15 min) Moderate 01/05/2017 Patient Education: Patient Medication Summary Completed 01/05/2017 Visit Plan: Neck Pain- pt to start with aspercreme or biofreeze to neck three times daily and start neck exercises daily. Will send RX - The patient is to call the office if the pain is worsening or does not improve. 12/19/2016 [phone] ([facility] min) Complex 12/19/2016 Patient Education: [...] not improving. 11/13/2016 Appointment: Carleen Anaya WPtel: [address] [place], [place] [phone] (15 min) Moderate 11/13/2016 Patient Education: Patient Medication Summary Completed 11/13/2016 Visit Plan: Insomnia -extended release melatonin - you can take up to 10mg of melatoninsleepy time tea - - use warm milk in the tea.Right shoulder - pt to continue with therapy, anti-inflammatory 10/16/2016 Appointment: Carleen Anaya WPtel: [address] [place], [place] [phone] (15 min) Moderate 10/16/2016 Patient Education: Patient [...] with pt. 10/06/2016 Appointment: Carleen Anaya WPtel: [address] [place], [place] [phone] (15 min) Moderate 10/06/2016 Patient Education: Patient Medication Summary Completed 10/06/2016 Care Plan: CHEST X-RAY 2VW FRONTAL&LATL LOINC : 33557-4 Pending 10/06/2016 Care Plan: X-RAY EXAM OF SHOULDER LOINC : 15343-6 Pending 10/06/2016 Appointment: Carleen Anaya WPtel: [address] [place], [place] [phone] (30 min) Complex 10/01/2016 Referral: [facility] WPtel: [phone] [place], [place] [phone] Patient informed. Completed 07/08/2016 Visit Plan: Hypertension - well controlled - continue with current medications, continue with no added salt diet. Pt has been encouraged to exercise daily.The pt has been advised to call the office if there are any acute concerns about change in blood pressure readings at home.Joint pain - rx for voltaren gelGait unsteadiness - discussed therapy. 07/02/2016 Appointment: Carleen Anaya WPtel: [phone] [id number] (15 min) Moderate 07/02/2016 Patient Education: Patient Medication Summary Completed 07/02/2016 Care Plan: Referral Order SNOMED-CT : [id number] Pending 07/02/2016 Visit Plan: Hypertension - well [...] planning on getting a flu shot at [facility] and she is due for another pneumovax-last pneumovax was in 2008 - so she can have pneumovax now and the prevnar in 2017 05/21/2016 Appointment: Carleen Anaya WPtel: [facility] [facility] (15 min) Moderate 05/21/2016 Patient Education: Patient Medication Summary Completed 05/21/2016 Referral: Medardo Del Real [facility] Referral Completed 05/12/2016 Visit Plan: Esophageal Reflux [...] daily 05/07/2016 Appointment: Carleen Anaya WPtel: [phone] [facility] (15 min) Moderate 05/07/2016 Patient Education: Patient Medication Summary Completed 05/07/2016 Appointment: Mimi Espinosa WPtel: [phone] [phone] [place] (30 min) Complex 05/01/2016 Visit Plan: Allergies [...] spray.Kenalog injection today in the office Sore vymwyi-cxpqyhgmy-eogoe dexilant-refer to Dr Del Real for evaluation 04/28/2016 Appointment: [phone] (30 min) Complex 04/28/2016 Patient Education: Patient [...] medication switched. 04/07/2016 Appointment: Wendi Uriostegui WPtel: [facility] (30 min) Complex 04/07/2016 Patient Education: Patient [...] check labs including UA-culture if positive Urge tnuykitbjrlx-vchhygvgs-lgusd UA with C&S 04/03/2016 Appointment: Mimi Espinosa WPtel: [phone] (30 min) Complex 04/03/2016 Patient Education: Patient Medication Summary Completed 04/03/2016 Visit Plan: Hypertension - well controlled - continue with current medications, continue with no added salt diet. Pt has been encouraged to exercise daily.The pt has been advised to call the office if there are any acute concerns about change in blood pressure readings at home.Bimpeutlv-ijuqzebs-fgpxuorq MRI brain Right ankle kupu-wbqqvhl-xxjo right ankle-plan to refer to physical therapy if appropriate 01/31/2016 Appointment: Mimi Espinosa WPtel: [phone] [phone] (30 min) Complex 01/31/2016 Patient Education: Patient [...] medications. 07/31/2015 [phone] ([facility] min) Moderate 07/31/2015 Patient Education: Patient Medication Summary Completed 07/31/2015 Patient Education: Hypertension Completed 07/31/2015 Care Plan: Referral Order SNOMED-CT : [id number] Ordered 07/31/2015 Visit Plan: Hypertension - uncontrolled [...] on Nortryptyline 07/03/2015 [facility]: [phone] (15 min) Moderate 07/03/2015 Patient Education: [...] 01/11/2015 Patient Education: Hypertension Completed 01/11/2015 [phone] [place] Referral Appointment Requested Referral: External, Ordering Provider Referral Appointment [facility]ed [facility] [facility] Requested Instructions Comment Flonase 1 [...] planning on getting a flu shot at [facility] and she is due for another pneumovax- [...] UTI - culture back, medication switched. . Hypertension - uncontrolled - the patient's [...] Kenalog injection today in the office Sore udbkhk-kcmeakcpn-zcjtv dexilant-refer to Dr Del Real for evaluation [...] Fatigue-check labs including UA-culture if positive Urge nbnhpqadeqxv-nzxjqrnub-dqkoq UA with C&S . Hypertension - well controlled - continue with current medications, continue with no added salt diet. Pt has been encouraged to exercise daily. The pt has been advised to call the office if there are any acute concerns about change in blood pressure readings at home. Fyxoedjpx-geswiadg-bzatuwcp MRI brain Right ankle vjtw-sekpcqx-bzrp right ankle-plan to refer to physical therapy [...]
--- OUTSIDE RECORDS SUMMARY | 2019-01-01 11:40 | XMS REPORT | CCD ---
Author Author [facility] Organization [facility] Address [address] [place] [address] Phone Care Team Providers Care Mobility Architect Name Role Phone PP Unavailable CCM Unavailable Summary Purpose Interface Exchange Insurance Providers Payer name Policy type / Coverage type Covered libertarian ID Effective Begin Date Effective End Date WPS Medicare Part B Medicare Part B [id number] Unknown Unknown [facility] Medicare Part B [id number] Unknown Unknown Family history Father Diagnosis Age At Onset Cancer Unknown Arthritis Unknown Mother Diagnosis Age At Onset Breast cancer Unknown Arthritis Unknown Social History Social History Element Codes Description Effective Dates Marital status Unknown 01/11/2015 Number of children Unknown 3 01/11/2015 Employment Unknown Retired 01/11/[address]: 5825849 Quit over 10 years ago 1950 01/11/[address]: 691416929 Never drinks alcohol 01/11/2015 Allergies, Adverse Reactions, [...] ICD-9: 477.0 ICD-10: J30.1 Active 04/27/2016 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 ICD-9: V58.61 ICD-10: [...] pollen ICD-9: 477.0 ICD-10: J30.1 04/27/2016 Active alf (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 of anticoagulants ICD-9: V58.61 ICD-10: [...] Start Date Stop Date Status Fill Instructions prednisone 20 mg tablet RxNorm: 183813 2 Tablet(s) PO daily 03/03/2017 03/07/2017 Active tramadol 50 mg tablet RxNorm: 129664 1/2 Tablet(s) PO TID as needed 03/03/2017 No Stop Date Active pravastatin 10 mg tablet RxNorm: 740373 TAKE ONE TABLET BY MOUTH ONCE DAILY 01/19/2017 01/13/2018 Active nortriptyline 10 mg capsule RxNorm: 523000 TAKE ONE CAPSULE BY MOUTH ONCE DAILY IN THE EVENING 01/14/2017 04/13/2017 Active Voltaren 1 % topical gel RxNorm: 345072 TOP QID 12/22/2016 02/19/2017 Inactive Voltaren 1 % topical gel RxNorm: 615508 TOP QID 12/22/2016 12/21/2016 Inactive Flector 1.3 % transdermal 12 hour patch RxNorm: 283804 1 Patch TOP every 12 hours as needed 12/19/2016 No Stop Date Active prednisone 20 mg tablet RxNorm: 340544 2 Tablet(s) PO daily 12/19/2016 12/23/2016 Inactive cyclobenzaprine 5 mg tablet RxNorm: 121668 1/2 Tablet(s) PO BID as needed 12/19/2016 12/23/2016 Inactive losartan 25 mg tablet RxNorm: 625178 1 Tablet(s) PO daily TAKE ONE TABLET BY MOUTH ONCE DAILY 11/13/2016 11/07/2017 Active Namenda 10 mg tablet RxNorm: 254456 TAKE ONE TABLET BY MOUTH TWICE DAILY 10/28/2016 04/25/2017 Active nortriptyline 10 mg capsule RxNorm: 932373 TAKE ONE CAPSULE BY MOUTH ONCE DAILY IN THE EVENING 10/13/2016 01/10/2017 Inactive ceftriaxone 500 mg solution for injection RxNorm: 1055589 Inj 10/06/2016 10/06/2016 Inactive cefdinir 300 mg capsule RxNorm: 440335 1 Capsule(s) PO BID 10/06/2016 10/12/2016 Inactive prednisone 20 mg tablet RxNorm: 074857 2 Tablet(s) PO daily 10/06/2016 10/08/2016 Inactive ProAir RespiClick 90 mcg/actuation breath activated RxNorm: 5538340 2 INH TID x 3 days then one inhale tid x 3 days then prn shortness of breath 10/06/2016 11/04/2016 Inactive Kenalog 40 mg/mL suspension for injection RxNorm: 7821720 1 Milliliter(s) Inj 10/06/2016 10/06/2016 Inactive Myrbetriq 50 mg tablet,extended release RxNorm: 7223685 1 Tablet(s) PO daily 09/11/2016 11/12/2016 Inactive hydrochlorothiazide 25 mg tablet RxNorm: 995344 1 Tablet(s) PO daily 07/25/2016 07/19/2017 Active Namenda 10 mg tablet RxNorm: 835306 TAKE ONE TABLET BY MOUTH TWICE DAILY 07/25/2016 10/22/2016 Inactive Synthroid 125 mcg tablet RxNorm: 842678 TAKE ONE TABLET BY MOUTH ONCE DAILY 07/14/2016 03/10/2017 Active losartan 25 mg tablet RxNorm: 166596 TAKE ONE TABLET BY MOUTH ONCE DAILY 07/07/2016 11/12/2016 Inactive metoprolol succinate ER 100 mg tablet,extended release 24 hr RxNorm: 373624 1 Tablet(s) PO daily 06/16/2016 06/10/2017 Active nortriptyline 10 mg capsule RxNorm: 473291 Capsule(s) TAKE ONE CAPSULE BY MOUTH ONCE DAILY IN THE EVENING 06/09/2016 10/06/2016 Inactive Myrbetriq 50 mg tablet,extended release RxNorm: 2141642 1 Tablet(s) PO daily 05/21/2016 09/10/2016 Inactive Carafate 100 mg/mL oral suspension RxNorm: 305014 10 Milliliter(s) PO QID 05/07/2016 09/03/2016 Inactive doxycycline hyclate 100 mg tablet RxNorm: 169786 1 Tablet(s) PO BID 05/07/2016 05/13/2016 Inactive Kenalog 40 mg/mL suspension for injection RxNorm: 8767872 Milliliter(s) Inj 04/28/2016 04/28/2016 Inactive losartan 25 mg tablet RxNorm: 080371 TAKE ONE TABLET BY MOUTH ONCE DAILY 04/08/2016 07/06/2016 Inactive ciprofloxacin 500 mg tablet RxNorm: 378736 1 Tablet(s) PO BID 04/07/2016 04/13/2016 Inactive cyclobenzaprine 5 mg tablet RxNorm: 906615 1 Tablet(s) PO TID 04/07/2016 04/16/2016 Inactive Keflex 500 mg capsule RxNorm: 720840 1 Capsule(s) PO TID 04/03/2016 04/02/2016 Inactive Keflex 500 mg capsule RxNorm: 752595 1 Capsule(s) PO TID 04/03/2016 04/09/2016 Inactive losartan 25 mg tablet RxNorm: 667037 TAKE ONE TABLET BY MOUTH ONCE DAILY 03/06/2016 04/07/2016 Inactive nortriptyline 10 mg capsule RxNorm: 717216 TAKE ONE CAPSULE BY MOUTH ONCE DAILY IN THE EVENING 03/06/2016 06/03/2016 Inactive pravastatin 10 mg tablet RxNorm: 336599 TAKE ONE TABLET BY MOUTH ONCE DAILY 02/04/2016 01/18/2017 Inactive warfarin 4 mg tablet RxNorm: 040693 Tablet(s) PO q d except 5mg on tue 01/31/2016 No Stop Date Active Myrbetriq 50 mg tablet,extended release RxNorm: 4997743 1 Tablet(s) PO daily 01/17/2016 05/15/2016 Inactive Namenda 10 mg tablet RxNorm: 977338 1 Tablet(s) PO BID 01/01/2016 06/28/2016 Inactive Myrbetriq 50 mg tablet,extended release RxNorm: 9780326 1 Tablet(s) PO daily 12/20/2015 12/20/2015 Inactive Synthroid 125 mcg tablet RxNorm: 622119 1 Tablet(s) PO daily 11/14/2015 07/10/2016 Inactive nortriptyline 10 mg capsule RxNorm: 932562 TAKE ONE CAPSULE BY MOUTH ONCE DAILY IN THE EVENING 11/05/2015 03/03/2016 Inactive Myrbetriq 50 mg tablet,extended release RxNorm: 5020117 1 Tablet(s) PO daily 10/01/2015 12/19/2015 Inactive Namenda 10 mg tablet RxNorm: 323163 1 Tablet(s) PO BID 08/30/2015 12/31/2015 Inactive Vesicare 10 mg tablet RxNorm: 165978 1 Tablet(s) PO daily 08/30/2015 09/30/2015 Inactive warfarin 4 mg tablet RxNorm: 277787 Tablet(s) PO 08/30/2015 01/30/2016 Inactive Synthroid 125 mcg tablet RxNorm: 350721 1 Tablet(s) PO daily 08/02/2015 11/13/2015 Inactive Synthroid 125 mcg tablet RxNorm: 139815 Tablet(s) PO 08/01/2015 08/01/2015 Inactive losartan 25 mg tablet RxNorm: 853362 1 Tablet(s) PO daily 07/31/2015 02/25/2016 Inactive pravastatin 10 mg tablet RxNorm: 447806 1 Tablet(s) PO daily 07/23/2015 01/18/2016 Inactive hydrochlorothiazide 25 mg tablet RxNorm: 909929 1 Tablet(s) PO daily 07/19/2015 07/12/2016 Inactive nortriptyline 10 mg capsule RxNorm: 790427 1 Capsule(s) PO QPM 07/03/2015 10/30/2015 Inactive metoprolol succinate ER 100 mg tablet,extended release 24 hr RxNorm: 657038 1 Tablet(s) PO daily 06/06/2015 05/30/2016 Inactive pravastatin 10 mg tablet RxNorm: 289585 1 Tablet(s) PO daily 01/22/2015 07/20/2015 Inactive Fosamax 5 mg tablet RxNorm: 147064 1 Tablet(s) QW 01/11/2015 No Stop Date Active aspirin 81 mg capsule,delayed release RxNorm: 986597 1 Capsule(s) PO daily 01/11/2015 02/09/2015 Inactive oxybutynin chloride ER 10 mg tablet,extended release 24 hr RxNorm: 585395 1 Tablet(s) PO daily 01/11/2015 08/29/2015 Inactive Tylenol PM oral RxNorm: 533056 oral No Start Date Active Colace 100 mg capsule RxNorm: 7702779 Capsule(s) PO No Start Date Active Micro-K 10 10 mEq capsule,extended release RxNorm: 104972 1 Capsule(s) PO daily No Start Date Active PreserVision AREDS 2 oral RxNorm: 3030845 oral No Start Date Active pravastatin 10 mg tablet RxNorm: 005906 1 Tablet(s) PO daily No Start Date 01/21/2015 Inactive Synthroid 100 mcg tablet RxNorm: 511096 Tablet(s) PO No Start Date 07/31/2015 Inactive hydrochlorothiazide 25 mg tablet RxNorm: 874199 1 Tablet(s) PO daily No Start Date 07/18/2015 Inactive warfarin 2 mg tablet RxNorm: 686364 Tablet(s) PO No Start Date 08/29/2015 Inactive metoprolol succinate ER 100 mg tablet,extended release 24 hr RxNorm: 886648 1 Tablet(s) PO daily No Start Date 06/05/2015 Inactive warfarin 3 mg tablet RxNorm: 139934 Tablet(s) PO No Start Date 08/29/2015 Inactive Medication Administered Medication Codes Instructions Start Date Status Kenalog 40 mg/mL suspension for injection RxNorm: 6846971 1Milliliter 10/06/2016 No longer Active ceftriaxone 500 mg solution for injection RxNorm: 8241221 10/06/2016 No longer Active Kenalog 40 mg/mL suspension for injection RxNorm: 8453949 Milliliter 04/28/2016 No longer Active Immunizations Vaccine [...] to pollen ICD-10: J30.1 ICD-9: 477.0 04/28/2016 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 ICD-10: Z79.01 ICD-9: [...] Code Item Item Code Result Date Pt Ksw3485 PT 24.2 seconds 04/14/2016 Pt Kjk0039 INR 2.3 04/14/2016 Pt Vsk7926 Low Intensity - 1.5-2.0 04/14/2016 Pt Hwo7471 Mod intensity - 2.0-3.0 04/14/2016 Pt Xao3141 Hi intensity - 3.0-4.0 04/14/2016 Pt Rbq5259 PT 31.3 seconds 04/10/2016 Pt Hcv4798 INR 3.3 04/10/2016 Pt Svs0399 Low Intensity - 1.5-2.0 04/10/2016 Pt Lso9261 Mod intensity - 2.0-3.0 04/10/2016 Pt Grs6665 Hi intensity - 3.0-4.0 04/10/2016 C RAP A SC [id number] Strep A Negative 04/10/2016 Urine Culture Ucult Complete >100,000 col/ml aerobic growth sent to ref lab 04/04/2016 Comp Metabolic Fxo357 NA 136 mEq/L 04/03/2016 Comp Metabolic Owx267 K 3.9 mEq/L 04/03/2016 Comp Metabolic Avz962 CL 99 mEq/L 04/03/2016 Comp Metabolic Tps089 CO2 32.0 mEq/L 04/03/2016 Comp Metabolic Gly904 ANION GAP 9 04/03/2016 Comp Metabolic Ruw075 GLUCOSE 88 mg/dL 04/03/2016 Comp Metabolic Bww415 Creat 0.6 mg/dL 04/03/2016 Comp Metabolic Eqz049 eGFR 93 ml/min/1.73m2 04/03/2016 Comp Metabolic Tbg851 BUN 15 mg/dL 04/03/2016 Comp Metabolic Ewf342 B/C Ratio 23.4 Ratio 04/03/2016 Comp Metabolic Gsc382 CALCIUM 8.7 mg/dL 04/03/2016 Comp Metabolic Vti215 ALK PHOS 100 U/L 04/03/2016 Comp Metabolic Jpv476 AST(SGOT) 28 U/L 04/03/2016 Comp Metabolic Hqv942 ALT(SGPT) 39 U/L 04/03/2016 Comp Metabolic Xsv533 BILI T 0.5 mg/dL 04/03/2016 Comp Metabolic Hsm290 ALBUMIN 4.1 g/dL 04/03/2016 Comp Metabolic Emx272 TPRO 6.6 g/dL 04/03/2016 Comp Metabolic Rtd931 GLOB 2.5 g/dL 04/03/2016 Comp Metabolic Mtj866 A/G Ratio 1.7 Ratio 04/03/2016 Comp Metabolic Dwa144 Osmo 272 mOsmo 04/03/2016 Cbc With Differential [...] 15.8 % 04/03/2016 Cbc With Differential Ord2 Perry% 11.3 % 04/03/2016 Cbc With Differential Ord2 MCH 29.0 pg 04/03/2016 Cbc With Differential Ord2 Eos% 2.1 % 04/03/2016 Cbc With Differential Ord2 MCHC 31.7 pg 04/03/2016 Cbc With Differential Ord2 PLT 172 K/ul 04/03/2016 Cbc With Differential Ord2 Baso% 0.6 % 04/03/2016 Cbc With Differential Ord2 RDW 14.4 % 04/03/2016 Cbc With Differential Ord2 Neut ABS# 5.11 K/ul 04/03/2016 Cbc With Differential Ord2 Lymph ABS# 1.15 K/ul 04/03/2016 Cbc With Differential Ord2 Perry ABS# 0.8 K/ul 04/03/2016 Cbc With Differential Ord2 Eos ABS# 0.2 K/ul 04/03/2016 Cbc With Differential Ord2 Baso ABS# 0.0 K/ul 04/03/2016 Tsh Ord6 hTSH II 3.06 uIU/mL 04/03/2016 Free T4 Eih030 FREE T4 0.99 ng/dL 04/03/2016 Free T4 Fuj623 FREE T4 0.81 ng/dL 07/31/2015 Comp Metabolic Ank488 NA 136 mEq/L 07/31/2015 Comp Metabolic Ohw214 K 3.8 mEq/L 07/31/2015 Comp Metabolic Jpy000 CL 97 mEq/L 07/31/2015 Comp Metabolic Yys997 CO2 29.0 mEq/L 07/31/2015 Comp Metabolic Spv402 ANION GAP 14 07/31/2015 Comp Metabolic Vew184 GLUCOSE 90 mg/dL 07/31/2015 Comp Metabolic Tvm017 Creat 0.7 mg/dL 07/31/2015 Comp Metabolic Wgy687 eGFR 80 ml/min/1.73m2 07/31/2015 Comp Metabolic Qad959 BUN 8 mg/dL 07/31/2015 Comp Metabolic Ims801 B/C Ratio 11.0 Ratio 07/31/2015 Comp Metabolic Tct866 CALCIUM 8.9 mg/dL 07/31/2015 Comp Metabolic Fqv555 ALK PHOS 102 U/L 07/31/2015 Comp Metabolic Pud626 AST(SGOT) 22 U/L 07/31/2015 Comp Metabolic Dps839 ALT(SGPT) 14 U/L 07/31/2015 Comp Metabolic Vow088 BILI T 0.5 mg/dL 07/31/2015 Comp Metabolic Kaa950 ALBUMIN 4.4 g/dL 07/31/2015 Comp Metabolic Pkl488 TPRO 6.7 g/dL 07/31/2015 Comp Metabolic Aqh523 GLOB 2.3 g/dL 07/31/2015 Comp Metabolic Ovr790 A/G Ratio 1.9 Ratio 07/31/2015 Comp Metabolic Wdc026 Osmo 270 mOsmo 07/31/2015 Tsh Ord6 hTSH [...] Lipid Ord30 C/HDL 4.8 Ratio 07/31/2015 Pt Wrd6344 PT 31.9 seconds 07/03/2015 Pt Ukp7358 INR 3.2 07/03/2015 Pt Mjr8263 Low Intensity - 1.5-2.0 07/03/2015 Pt Mwe8297 Mod intensity - 2.0-3.0 07/03/2015 Pt Kwv0124 Hi intensity - 3.0-4.0 07/03/2015 Review of [...] gingiva 10/16/2016 None Full Exam - General 1994 Ears/Nose/Throat lips/teeth/gingiva Overall: no masses 10/16/2016 None [...] Procedures Procedure Codes Date DRAIN/INJECT JOINT/BURSA CPT-4: 64170Shjanae 03/03/2017 TRIAMCINOLONE ACET INJ NOS CPT-4: D4870Juescsi 03/03/2017 TRIAMCINOLONE ACET INJ NOS CPT-4: N3070Tvdrpxa 10/06/2016 ROCEPHIN, PER 250 MG CPT-4: J6359Jeoqhjp 10/06/2016 THER/PROPH/DIAG INJ SC/IM CPT-4: 32247Spjjyid 10/06/2016 TRIAMCINOLONE ACET INJ NOS CPT-4: Y7758Qjvjddt 04/28/2016 URINALYSIS NONAUTO W/O SCOPE CPT-4: 43555Txhihfj 04/03/2016 ADMIN INFLUENZA VIRUS VAC CPT-4: T2201Cabybjw 07/03/2015 FLU VACC PRSV FREE INC ANTIG CPT-4: 91793Beeonko 07/03/2015 Vital Signs Date Vital 03/03/2017 Blood Pressure 1: 154/88 Code: 8480-6 Heart Rate 1: 96 bpm Height: SpO2: 95% Weight: 01/05/2017 Blood Pressure 1: 142/78 Code: 8480-6 BMI: 28.9 Code: 88971-5 Heart Rate 1: 94 bpm Height: 5'6" SpO2: 95% Weight: 179 lbs 12/19/2016 Blood Pressure 1: 130/74 Code: 8480-6 Heart Rate 1: 91 bpm Height: 5'6" SpO2: 97% Weight: 11/13/2016 Blood Pressure 1: 152/82 Code: 8480-6 BMI: 28.4 Code: 42353-3 Heart Rate 1: 85 bpm Height: 5'6" SpO2: 96% Weight: 176 lbs 10/16/2016 Blood Pressure 1: 148/72 Code: 8480-6 BMI: 28.4 Code: 74475-2 Heart Rate 1: 90 bpm Height: 5'6" SpO2: 96% Weight: 176 lbs 10/06/2016 Blood Pressure 1: 150/80 Code: 8480-6 BMI: 28.4 Code: 04798-6 Heart Rate 1: 76 bpm Height: 5'6" SpO2: 97% Weight: 176 lbs 07/02/2016 Blood Pressure 1: 142/78 Code: 8480-6 BMI: 27.8 Code: 50324-0 Heart Rate 1: 85 bpm Height: 5'6" SpO2: 97% Weight: 172 lbs 05/21/2016 Blood Pressure 1: 166/80 Code: 8480-6 BMI: 27.9 Code: 58335-6 Heart Rate 1: 79 bpm Height: 5'6" SpO2: 98% Weight: 173 lbs 05/07/2016 Blood Pressure 1: 140/70 Code: 8480-6 BMI: 27.9 Code: 42867-6 Heart Rate 1: 82 bpm Height: 5'6" SpO2: 96% Weight: 173 lbs 04/28/2016 Blood Pressure 1: 128/86 Code: 8480-6 BMI: 27.4 Code: 07302-1 Heart Rate 1: 86 bpm Height: 5'6" SpO2: 96% Temperature: 36.1 (C) / 97.0 (F) Weight: 170 lbs 04/07/2016 Blood Pressure 1: 150/80 Code: 8480-6 Heart Rate 1: 94 bpm Height: SpO2: 95% Weight: 04/03/2016 Blood Pressure 1: 122/76 Code: 8480-6 BMI: 27.4 Code: 40518-5 Heart Rate 1: 84 bpm Height: 5'6" SpO2: 94% Weight: 170 lbs 01/31/2016 Blood Pressure 1: 124/82 Code: 8480-6 BMI: 27.8 Code: 41858-3 Heart Rate 1: 100 bpm Height: 5'6" SpO2: 97% Weight: 172 lbs 11/29/2015 Blood Pressure 1: 140/82 Code: 8480-6 Blood Pressure 1: 130/84 Code: 8480-6 BMI: 27.4 Code: 78861-8 Heart Rate 1: 97 bpm Height: 5'6" SpO2: 95% Weight: 170 lbs 10/01/2015 Blood Pressure 1: 130/80 Code: 8480-6 BMI: 27.4 Code: 94251-8 Heart Rate 1: 82 bpm Height: 5'6" SpO2: 97% Weight: 170 lbs 08/30/2015 Blood Pressure 1: 120/68 Code: 8480-6 BMI: 27.6 Code: 93402-3 Heart Rate 1: 91 bpm Height: 5'6" SpO2: 96% Weight: 171 lbs 07/31/2015 Blood Pressure 1: 180/80 Code: 8480-6 BMI: 27.4 Code: 54289-5 Heart Rate 1: 60 bpm Height: 5'6" SpO2: 94% Weight: 170 lbs 07/03/2015 Blood Pressure 1: 154/80 Code: 8480-6 BMI: 27.4 Code: 71631-6 Heart Rate 1: 98 bpm Height: 5'6" SpO2: 95% Weight: 170 lbs 04/10/2015 Blood Pressure 1: 138/72 Code: 8480-6 BMI: 27.8 Code: 42140-2 Heart Rate 1: 82 bpm Height: 5'6" SpO2: 98% Weight: 172 lbs 01/11/2015 Blood Pressure 1: 132/74 Code: 8480-6 BMI: 28.6 Code: 52498-6 Heart Rate 1: 88 bpm Height: 5'6" [...] not elsewhere classified[ICD10: M46.1] Wendi Anaya MD, [facility] CPT-4: 35995 03/03/2017 ([id number]) 90037 EST. PATIENT, LEVEL IV Diagnosis: Essential (primary) hypertension[ICD10: I10] Diagnosis: Atrophy of thyroid (acquired)[ICD10: E03.4] Diagnosis: Vascular dementia without behavioral disturbance[ICD10: F01.50] Carleen Anaya MD, [facility] CPT-4: 93546 01/05/2017 37152 EST. PATIENT, LEVEL III Diagnosis: Cervicalgia[ICD10: M54.2] Diagnosis: Other muscle spasm[ICD10: M62.838] Wendi Anaya MD, [facility] CPT-4: 72453 12/19/2016 ([id number]) 24988 EST. PATIENT, LEVEL III Diagnosis: Essential (primary) hypertension[ICD10: I10] Diagnosis: Gastro-esophageal reflux disease without esophagitis[ICD10: K21.9] [facility] CPT-4: 93859 11/13/2016 ([id number]) 06065 EST. 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 PATIENT, LEVEL IV Diagnosis: Pneumonia due to other specified bacteria[ICD10: J15.8] Diagnosis: Pain in right shoulder[ICD10: M25.511] Diagnosis: Cough[ICD10: R05] Carleen Anaya MD [facility] CPT-4: 10614 10/06/2016 ([id number]) 46148 EST. PATIENT, LEVEL IV Diagnosis: Essential (primary) hypertension[ICD10: I10] Diagnosis: Personal history of other specified conditions[ICD10: Z87.898] Diagnosis: Unsteadiness on feet[ICD10: R26.81] Carleen Anaya MD, [facility] CPT- 4: 89882 07/02/2016 ([id number]) 65930 EST. PATIENT, LEVEL IV Diagnosis: Dysphagia, pharyngeal phase[ICD10: R13.13] Diagnosis: Urge incontinence[ICD10: N39.41] Diagnosis: Gastro-esophageal reflux disease without esophagitis[ICD10: K21.9] Carleen Anaya MD, [facility] CPT-4: 56258 05/21/2016 ([id number]) 44068 EST. PATIENT, LEVEL III Diagnosis: Gastro-esophageal reflux disease without esophagitis[ICD10: K21.9] Carleen Anaya MD, [facility] CPT-4: 27245 05/07/2016 ([id number]) 45410 EST. PATIENT, LEVEL III Diagnosis: Acute laryngopharyngitis[ICD10: J06.0] Diagnosis: Dysphagia, pharyngeal phase[ICD10: R13.13] Diagnosis: Allergic rhinitis due to pollen[ICD10: J30.1] Mimi Anaya MD, [facility] CPT-4: 29202 04/28/2016 ([id number]) Miscellaneous no charge Diagnosis: Acute laryngopharyngitis[ICD10: J06.0] Wendi Anaya MD, [facility] CPT- 4: 85941 04/10/2016 44387 EST. PATIENT, LEVEL IV Diagnosis: Cervicalgia[ICD10: M54.2] Diagnosis: Acute laryngopharyngitis[ICD10: J06.0] Diagnosis: alf (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 of anticoagulants[ICD10: Z79.01] Diagnosis: Other cystitis without hematuria[ICD10: N30.80] Wendi Anaya MD, [facility] CPT-4: 28710 04/07/2016 ([id number]) 44837 EST. PATIENT, LEVEL IV Diagnosis: Essential (primary) hypertension[ICD10: I10] Diagnosis: Hypothyroidism, unspecified[ICD10: E03.9] Diagnosis: Other fatigue[ICD10: R53.83] Diagnosis: Urge incontinence[ICD10: N39.41] Mimi Anaya MD, [facility] CPT- 4: 88958 04/03/2016 ([id number]) 60200 EST. PATIENT, LEVEL IV Diagnosis: Essential (primary) hypertension[ICD10: I10] Diagnosis: Pain in right ankle and joints of right foot[ICD10: M25.571] Diagnosis: Dizziness and giddiness[ICD10: R42] Diagnosis: Tinnitus, bilateral[ICD10: H93.13] Mimi Anaya MD, [facility] CPT- 4: 56686 01/31/2016 ([id number]) 10495 EST. PATIENT, LEVEL IV Diagnosis: Essential (primary) hypertension[ICD10: I10] Diagnosis: Otalgia, right ear[ICD10: H92.01] Diagnosis: Allergic rhinitis due to pollen[ICD10: J30.1] Diagnosis: Hypothyroidism, unspecified[ICD10: E03.9] Mimi Anaya MD, [facility] CPT-4: 94455 11/29/2015 ([id number]) 47302 EST. PATIENT, LEVEL IV Diagnosis: Essential (primary) hypertension[ICD10: I10] Diagnosis: Urge incontinence[ICD10: N39.41] Diagnosis: Unspecified dementia without behavioral disturbance[ICD10: F03.90] Mimi Anaya MD, [facility] CPT-4: 24511 10/01/2015 ([id number]) 29569 EST. PATIENT, LEVEL IV Diagnosis: Essential (primary) hypertension[ICD10: I10] Diagnosis: Hypothyroidism, unspecified[ICD10: E03.9] Diagnosis: Unspecified dementia without behavioral disturbance[ICD10: F03.90] Diagnosis: Urge incontinence[ICD10: N39.41] Mimi Anyaa MD, [facility] CPT- 4: 70242 08/30/2015 ([id number]) 46260 EST. PATIENT, LEVEL IV Diagnosis: Essential (primary) hypertension[ICD10: I10] Diagnosis: Hypothyroidism, unspecified[ICD10: E03.9] Diagnosis: Hyperlipidemia, unspecified[ICD10: E78.5] Carleen Anaya MD [facility] CPT-4: 11534 07/31/2015 ([id number]) 70530 EST. 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 PATIENT, LEVEL IV Diagnosis: ESSENTIAL HYPERTENSION[ICD9: 401.9] Diagnosis: MACULAR DEGENERATION[ICD9: 362.50] Diagnosis: Peripheral vascular disease[ICD9: 443.9] Diagnosis: Neuropathy[ICD9: 355.9] Carleen Anaya MD, [facility] CPT-4: 66435 04/10/2015 ([id number]) OFFICE/OUTPATIENT VISIT NEW Diagnosis: ESSENTIAL HYPERTENSION[ICD9: 401.9] Diagnosis: HYPOTHYROIDISM[ICD9: 244.9] Diagnosis: URGE INCONTINENCE[ICD9: 788.31] Diagnosis: Constipation - functional[ICD9: 564.09] Carleen Anaya MD, [facility] CPT-4: 37931 01/11/2015 Plan of Care Planned Activity Notes [...] occurs at the site of injection. 03/03/2017 Patient Education: Patient Medication Summary Completed [...] of control. 01/05/2017 Appointment: Carleen Anaya WPtel: [facility] (15 min) Moderate 01/05/2017 Patient Education: Patient Medication Summary Completed 01/05/2017 Visit Plan: Neck Pain- pt to start with aspercreme or biofreeze to neck three times daily and start neck exercises daily. Will send RX - The patient is to call the office if the pain is worsening or does not improve. 12/19/2016 Appointment: Wendi Uriostegui WPtel: [facility] (30 min) Complex 12/19/2016 Patient Education: Patient [...] not improving. 11/13/2016 Appointment: Carleen Anaya WPtel: [facility] (15 min) Moderate 11/13/2016 Patient Education: Patient Medication Summary Completed 11/13/2016 Visit Plan: Insomnia -extended release melatonin - you can take up to 10mg of melatoninsleepy time tea - - use warm milk in the tea.Right shoulder - pt to continue with therapy, anti-inflammatory 10/16/2016 Appointment: Carleen Anaya WPtel: [facility] (15 min) Moderate 10/16/2016 Patient Education: [...] with pt. 10/06/2016 Appointment: Carleen Anaya WPtel: [address] [place], [place] [phone] (15 min) Moderate 10/06/2016 Patient Education: Patient Medication Summary Completed 10/06/2016 Care Plan: CHEST X-RAY 2VW FRONTAL&LATL LOINC : 61552-1 Pending 10/06/2016 Care Plan: X-RAY EXAM OF SHOULDER LOINC : 39785-0 Pending 10/06/2016 Appointment: Carleen Anaya WPtel: [address] [place], [place] [phone] (30 min) Complex 10/01/2016 Referral: [facility] W[facility]el: [address] [id number] Patient informed. Completed 07/08/2016 Visit Plan: [...] Anaya WPtel: [facility] (15 min) Moderate 07/02/2016 Patient Education: Patient Medication Summary Completed 07/02/2016 Care Plan: Referral Order SNOMED-CT : [id number] Pending 07/02/2016 Visit Plan: Hypertension - well [...] planning on getting a flu shot at [facility] and she is due for another pneumovax-last pneumovax was in 2008 - so she can have pneumovax now and the prevnar in 2017 05/21/2016 Appointment: Carleen Anaya WPtel: [facility] (15 min) Moderate 05/21/2016 Patient Education: Patient Medication Summary Completed 05/21/2016 Referral: Medardo Del Real [address] Referral Completed 05/12/2016 Visit Plan: Esophageal [...] Anaya WPtel: [facility] [address] (15 min) Moderate 05/07/2016 Patient Education: Patient Medication Summary Completed 05/07/2016 Appointment: Mimi Espinosa WPtel: [phone] [phone] (30 min) Complex 05/01/2016 Visit Plan: Allergies [...] spray.Kenalog injection today in the office Sore obbssr-zfuranaqo-xemjx dexilant-refer to Dr Del Real for evaluation 04/28/2016 Appointment: Mimi Espinosa WPtel: [address] [facility] - [id number] (30 min) Complex 04/28/2016 Patient Education: Patient [...] switched. 04/07/2016 Appointment: Wend[facility] Uriostegui [facility] [facility] [id number] [place] (30 min) Complex 04/07/2016 Patient Education: [...] check labs including UA-culture if positive Urge jwjzgkbhcjgu-legkhmezz-wdjth UA with C&S 04/03/2016 Appointment: Mimi Espinosa [facility] [phone] (30 min) Complex 04/03/2016 Patient Education: Patient Medication Summary Completed 04/03/2016 Visit Plan: Hypertension - well controlled - continue with current medications, continue with no added salt diet. Pt has been encouraged to exercise daily.The pt has been advised to call the office if there are any acute concerns about change in blood pressure readings at home.Skcbsuqkm-advmqnji-zyfsewub MRI brain Right ankle bndx-aodkidw-ckfz right ankle-plan to refer to physical therapy if appropriate 01/31/2016 Appointment: Mimi Espinosa WPtel: [facility] [id number] (30 min) Complex 01/31/2016 Patient Education: Patient [...] to medications. 07/31/2015 Appointment: Carleen Anaya WPtel[id number] [place] (15 min) Moderate 07/31/2015 Patient Education: Patient Medication Summary Completed 07/31/2015 Patient Education: Hypertension Completed 07/31/2015 Care Plan: Referral Order SNOMED-CT : [id number] Ordered 07/31/2015 Visit Plan: Hypertension - uncontrolled [...] on Nortryptyline 07/03/2015 Appointment: Carleen Anaya WPtel: [address] [place], [place] [id number] [place] (15 min) Moderate 07/03/2015 Patient Education: Patient [...] Completed 01/11/2015 Referral: [facility] W[facility] [place] Referral Appointment Requested Referral: External, Ordering Provider Referral Appointment [facility]ed [id number] [place] [facility] Requested Instructions Comment Flonase [...] planning on getting a flu shot at [facility] and she is due for another [...] Kenalog injection today in the office Sore wvteml-cfjpgyyny-vditz dexilant-refer to Dr Del Real for evaluation [...] Fatigue-check labs including UA-culture if positive Urge lykwxjatscgb-xmpmrqumx-nynht UA with C&S . Hypertension - well controlled - continue with current medications, continue with no added salt diet. Pt has been encouraged to exercise daily. The pt has been advised to call the office if there are any acute concerns about change in blood pressure readings at home. Ldxakvxxs-anifcwpw-esjinqmh MRI brain Right ankle hbag-qiguamf-jcad right ankle-plan to refer to physical therapy [...]
--- OUTSIDE RECORDS SUMMARY | 2019-01-01 11:43 | XMS REPORT | CCD ---
Author Author [facility] Organization [facility] Address [address] [place] [address] Phone Care Team Providers Care Server Software Engineer Name Role Phone PP Unavailable CCM Unavailable Summary Purpose Interface Exchange Insurance Providers Payer name Policy type / Coverage type Covered libertarian ID Effective Begin Date Effective End Date WPS Medicare Part B Medicare Part B [id number] Unknown Unknown [facility] Medicare Part B [id number] Unknown Unknown Family history Father Diagnosis Age At Onset Cancer Unknown Arthritis Unknown Mother Diagnosis Age At Onset Breast cancer Unknown Arthritis Unknown Social History Social History Element Codes Description Effective Dates Marital status Unknown 01/11/2015 Number of children Unknown 3 01/11/2015 Employment Unknown Retired 01/11/[address]: 5742344 Quit over 10 years ago 1950 01/11/[address]: 009099802 Never drinks alcohol 01/11/2015 Allergies, Adverse Reactions, Alerts Allergies, Adverse Reactions, Alerts data not found Past Medical History Illness Codes Condition Status Onset Date Resolved Date Atrophy of thyroid (acquired) ICD-9: 244.8 ICD-10: [...] ICD-10: J30.1 Active 04/27/2016 Unknown 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 ICD-9: V58.61 [...] Problems Condition Codes Effective Dates Condition Status Atrophy of thyroid (acquired) ICD-9: 244.8 ICD-10: [...] pollen ICD-9: 477.0 ICD-10: J30.1 04/27/2016 Active 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 ICD-9: V58.61 [...] Start Date Stop Date Status Fill Instructions pravastatin 10 mg tablet RxNorm: 644994 TAKE ONE TABLET BY MOUTH ONCE DAILY 01/19/2017 01/13/2018 Active nortriptyline 10 mg capsule RxNorm: 091324 TAKE ONE CAPSULE BY MOUTH ONCE DAILY IN THE EVENING 01/14/2017 04/13/2017 Active Voltaren 1 % topical gel RxNorm: 844931 TOP QID 12/22/2016 02/19/2017 Active Voltaren 1 % topical gel RxNorm: 711140 TOP QID 12/22/2016 12/21/2016 Inactive Flector 1.3 % transdermal 12 hour patch RxNorm: 138120 1 Patch TOP every 12 hours as needed 12/19/2016 No Stop Date Active prednisone 20 mg tablet RxNorm: 470890 2 Tablet(s) PO daily 12/19/2016 12/23/2016 Inactive cyclobenzaprine 5 mg tablet RxNorm: 266562 1/2 Tablet(s) PO BID as needed 12/19/2016 12/23/2016 Inactive losartan 25 mg tablet RxNorm: 081177 1 Tablet(s) PO daily TAKE ONE TABLET BY MOUTH ONCE DAILY 11/13/2016 11/07/2017 Active Namenda 10 mg tablet RxNorm: 879668 TAKE ONE TABLET BY MOUTH TWICE DAILY 10/28/2016 04/25/2017 Active nortriptyline 10 mg capsule RxNorm: 420151 TAKE ONE CAPSULE BY MOUTH ONCE DAILY IN THE EVENING 10/13/2016 01/10/2017 Inactive ceftriaxone 500 mg solution for injection RxNorm: 9474606 Inj 10/06/2016 10/06/2016 Inactive cefdinir 300 mg capsule RxNorm: 339339 1 Capsule(s) PO BID 10/06/2016 10/12/2016 Inactive prednisone 20 mg tablet RxNorm: 583324 2 Tablet(s) PO daily 10/06/2016 10/08/2016 Inactive ProAir RespiClick 90 mcg/actuation breath activated RxNorm: 6431952 2 INH TID x 3 days then one inhale tid x 3 days then prn shortness of breath 10/06/2016 11/04/2016 Inactive Kenalog 40 mg/mL suspension for injection RxNorm: 6552719 1 Milliliter(s) Inj 10/06/2016 10/06/2016 Inactive Myrbetriq 50 mg tablet,extended release RxNorm: 1873594 1 Tablet(s) PO daily 09/11/2016 11/12/2016 Inactive hydrochlorothiazide 25 mg tablet RxNorm: 372043 1 Tablet(s) PO daily 07/25/2016 07/19/2017 Active Namenda 10 mg tablet RxNorm: 182553 TAKE ONE TABLET BY MOUTH TWICE DAILY 07/25/2016 10/22/2016 Inactive Synthroid 125 mcg tablet RxNorm: 518491 TAKE ONE TABLET BY MOUTH ONCE DAILY 07/14/2016 03/10/2017 Active losartan 25 mg tablet RxNorm: 823701 TAKE ONE TABLET BY MOUTH ONCE DAILY 07/07/2016 11/12/2016 Inactive metoprolol succinate ER 100 mg tablet,extended release 24 hr RxNorm: 803820 1 Tablet(s) PO daily 06/16/2016 06/10/2017 Active nortriptyline 10 mg capsule RxNorm: 100552 Capsule(s) TAKE ONE CAPSULE BY MOUTH ONCE DAILY IN THE EVENING 06/09/2016 10/06/2016 Inactive Myrbetriq 50 mg tablet,extended release RxNorm: 4457581 1 Tablet(s) PO daily 05/21/2016 09/10/2016 Inactive Carafate 100 mg/mL oral suspension RxNorm: 794488 10 Milliliter(s) PO QID 05/07/2016 09/03/2016 Inactive doxycycline hyclate 100 mg tablet RxNorm: 810649 1 Tablet(s) PO BID 05/07/2016 05/13/2016 Inactive Kenalog 40 mg/mL suspension for injection RxNorm: 3160062 Milliliter(s) Inj 04/28/2016 04/28/2016 Inactive losartan 25 mg tablet RxNorm: 462743 TAKE ONE TABLET BY MOUTH ONCE DAILY 04/08/2016 07/06/2016 Inactive ciprofloxacin 500 mg tablet RxNorm: 187544 1 Tablet(s) PO BID 04/07/2016 04/13/2016 Inactive cyclobenzaprine 5 mg tablet RxNorm: 883073 1 Tablet(s) PO TID 04/07/2016 04/16/2016 Inactive Keflex 500 mg capsule RxNorm: 691661 1 Capsule(s) PO TID 04/03/2016 04/02/2016 Inactive Keflex 500 mg capsule RxNorm: 666220 1 Capsule(s) PO TID 04/03/2016 04/09/2016 Inactive losartan 25 mg tablet RxNorm: 619284 TAKE ONE TABLET BY MOUTH ONCE DAILY 03/06/2016 04/07/2016 Inactive nortriptyline 10 mg capsule RxNorm: 922986 TAKE ONE CAPSULE BY MOUTH ONCE DAILY IN THE EVENING 03/06/2016 06/03/2016 Inactive pravastatin 10 mg tablet RxNorm: 622276 TAKE ONE TABLET BY MOUTH ONCE DAILY 02/04/2016 01/18/2017 Inactive warfarin 4 mg tablet RxNorm: 961625 Tablet(s) PO q d except 5mg on tue 01/31/2016 No Stop Date Active Myrbetriq 50 mg tablet,extended release RxNorm: 6007796 1 Tablet(s) PO daily 01/17/2016 05/15/2016 Inactive Namenda 10 mg tablet RxNorm: 615833 1 Tablet(s) PO BID 01/01/2016 06/28/2016 Inactive Myrbetriq 50 mg tablet,extended release RxNorm: 2360422 1 Tablet(s) PO daily 12/20/2015 12/20/2015 Inactive Synthroid 125 mcg tablet RxNorm: 740672 1 Tablet(s) PO daily 11/14/2015 07/10/2016 Inactive nortriptyline 10 mg capsule RxNorm: 926271 TAKE ONE CAPSULE BY MOUTH ONCE DAILY IN THE EVENING 11/05/2015 03/03/2016 Inactive Myrbetriq 50 mg tablet,extended release RxNorm: 0343917 1 Tablet(s) PO daily 10/01/2015 12/19/2015 Inactive Namenda 10 mg tablet RxNorm: 679621 1 Tablet(s) PO BID 08/30/2015 12/31/2015 Inactive Vesicare 10 mg tablet RxNorm: 226454 1 Tablet(s) PO daily 08/30/2015 09/30/2015 Inactive warfarin 4 mg tablet RxNorm: 484850 Tablet(s) PO 08/30/2015 01/30/2016 Inactive Synthroid 125 mcg tablet RxNorm: 764839 1 Tablet(s) PO daily 08/02/2015 11/13/2015 Inactive Synthroid 125 mcg tablet RxNorm: 203654 Tablet(s) PO 08/01/2015 08/01/2015 Inactive losartan 25 mg tablet RxNorm: 051982 1 Tablet(s) PO daily 07/31/2015 02/25/2016 Inactive pravastatin 10 mg tablet RxNorm: 273198 1 Tablet(s) PO daily 07/23/2015 01/18/2016 Inactive hydrochlorothiazide 25 mg tablet RxNorm: 056182 1 Tablet(s) PO daily 07/19/2015 07/12/2016 Inactive nortriptyline 10 mg capsule RxNorm: 923145 1 Capsule(s) PO QPM 07/03/2015 10/30/2015 Inactive metoprolol succinate ER 100 mg tablet,extended release 24 hr RxNorm: 627720 1 Tablet(s) PO daily 06/06/2015 05/30/2016 Inactive pravastatin 10 mg tablet RxNorm: 362816 1 Tablet(s) PO daily 01/22/2015 07/20/2015 Inactive Fosamax 5 mg tablet RxNorm: 845708 1 Tablet(s) QW 01/11/2015 No Stop Date Active aspirin 81 mg capsule,delayed release RxNorm: 212421 1 Capsule(s) PO daily 01/11/2015 02/09/2015 Inactive oxybutynin chloride ER 10 mg tablet,extended release 24 hr RxNorm: 201673 1 Tablet(s) PO daily 01/11/2015 08/29/2015 Inactive Tylenol PM oral RxNorm: 779038 oral No Start Date Active Colace 100 mg capsule RxNorm: 7659464 Capsule(s) PO No Start Date Active Micro-K 10 10 mEq capsule,extended release RxNorm: 058848 1 Capsule(s) PO daily No Start Date Active PreserVision AREDS 2 oral RxNorm: 9678850 oral No Start Date Active pravastatin 10 mg tablet RxNorm: 268440 1 Tablet(s) PO daily No Start Date 01/21/2015 Inactive Synthroid 100 mcg tablet RxNorm: 446362 Tablet(s) PO No Start Date 07/31/2015 Inactive hydrochlorothiazide 25 mg tablet RxNorm: 039006 1 Tablet(s) PO daily No Start Date 07/18/2015 Inactive warfarin 2 mg tablet RxNorm: 437247 Tablet(s) PO No Start Date 08/29/2015 Inactive metoprolol succinate ER 100 mg tablet,extended release 24 hr RxNorm: 432866 1 Tablet(s) PO daily No Start Date 06/05/2015 Inactive warfarin 3 mg tablet RxNorm: 237708 Tablet(s) PO No Start Date 08/29/2015 Inactive Medication Administered Medication Codes Instructions Start Date Status Kenalog 40 mg/mL suspension for injection RxNorm: 3229214 1Milliliter 10/06/2016 No longer Active ceftriaxone 500 mg solution for injection RxNorm: 8155353 10/06/2016 No longer Active Kenalog 40 mg/mL suspension for injection RxNorm: 8486953 Milliliter 04/28/2016 No longer Active Immunizations Vaccine Codes Date Status Influenza CVX: 141 06/10/2016 completed Pneumococcal CVX: 133 05/29/2016 completed Influenza CVX: 141 07/03/2015 completed Assessments Condition Codes Effective Dates Atrophy of thyroid (acquired) ICD-10: E03.4 ICD-9: [...] to pollen ICD-10: J30.1 ICD-9: 477.0 04/28/2016 jail (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 of anticoagulants ICD-10: Z79.01 ICD-9: [...] Visit Reason For Visit Effective Dates Notes hypertension 01/05/2017 neck pain 12/19/2016 dysphagia 11/13/2016 [...] Code Item Item Code Result Date Pt Crf3983 PT 24.2 seconds 04/14/2016 Pt Qno1823 INR 2.3 04/14/2016 Pt Gnd7907 Low Intensity - 1.5-2.0 04/14/2016 Pt Ctc6093 Mod intensity - 2.0-3.0 04/14/2016 Pt Cvk9343 Hi intensity - 3.0-4.0 04/14/2016 Pt Tza2749 PT 31.3 seconds 04/10/2016 Pt Xop4895 INR 3.3 04/10/2016 Pt Vhf0373 Low Intensity - 1.5-2.0 04/10/2016 Pt Gzm9462 Mod intensity - 2.0-3.0 04/10/2016 Pt Ygl1921 Hi intensity - 3.0-4.0 04/10/2016 C RAP A SC [id number] Strep A Negative 04/10/2016 Urine Culture Ucult Complete >100,000 col/ml aerobic growth sent to ref lab 04/04/2016 Comp Metabolic Euc157 NA 136 mEq/L 04/03/2016 Comp Metabolic Jhl246 K 3.9 mEq/L 04/03/2016 Comp Metabolic Emq926 CL 99 mEq/L 04/03/2016 Comp Metabolic Fjw139 CO2 32.0 mEq/L 04/03/2016 Comp Metabolic Fuy075 ANION GAP 9 04/03/2016 Comp Metabolic Ugo909 GLUCOSE 88 mg/dL 04/03/2016 Comp Metabolic Hpx198 Creat 0.6 mg/dL 04/03/2016 Comp Metabolic Yge213 eGFR 93 ml/min/1.73m2 04/03/2016 Comp Metabolic Nvx504 BUN 15 mg/dL 04/03/2016 Comp Metabolic Adi703 B/C Ratio 23.4 Ratio 04/03/2016 Comp Metabolic Jbj749 CALCIUM 8.7 mg/dL 04/03/2016 Comp Metabolic Gsp582 ALK PHOS 100 U/L 04/03/2016 Comp Metabolic Dgp602 AST(SGOT) 28 U/L 04/03/2016 Comp Metabolic Hau729 ALT(SGPT) 39 U/L 04/03/2016 Comp Metabolic Zhj900 BILI T 0.5 mg/dL 04/03/2016 Comp Metabolic Gkj459 ALBUMIN 4.1 g/dL 04/03/2016 Comp Metabolic Mnr226 TPRO 6.6 g/dL 04/03/2016 Comp Metabolic Dgz095 GLOB 2.5 g/dL 04/03/2016 Comp Metabolic Lmn030 A/G Ratio 1.7 Ratio 04/03/2016 Comp Metabolic Ckt612 Osmo 272 mOsmo 04/03/2016 Cbc With Differential [...] 15.8 % 04/03/2016 Cbc With Differential Ord2 Mower% 11.3 % 04/03/2016 Cbc With Differential Ord2 [...] 1.15 K/ul 04/03/2016 Cbc With Differential Ord2 Mower ABS# 0.8 K/ul 04/03/2016 Cbc With Differential Ord2 Eos ABS# 0.2 K/ul 04/03/2016 Cbc With Differential Ord2 Baso ABS# 0.0 K/ul 04/03/2016 Tsh Ord6 hTSH II 3.06 uIU/mL 04/03/2016 Free T4 Nch322 FREE T4 0.99 ng/dL 04/03/2016 Free T4 Tnb059 FREE T4 0.81 ng/dL 07/31/2015 Comp Metabolic Duc417 NA 136 mEq/L 07/31/2015 Comp Metabolic Gbg481 K 3.8 mEq/L 07/31/2015 Comp Metabolic Dqe213 CL 97 mEq/L 07/31/2015 Comp Metabolic Xgh474 CO2 29.0 mEq/L 07/31/2015 Comp Metabolic Kwt800 ANION GAP 14 07/31/2015 Comp Metabolic Weu731 GLUCOSE 90 mg/dL 07/31/2015 Comp Metabolic Kwd251 Creat 0.7 mg/dL 07/31/2015 Comp Metabolic Gvm418 eGFR 80 ml/min/1.73m2 07/31/2015 Comp Metabolic Aaj981 BUN 8 mg/dL 07/31/2015 Comp Metabolic Zcc306 B/C Ratio 11.0 Ratio 07/31/2015 Comp Metabolic Peu558 CALCIUM 8.9 mg/dL 07/31/2015 Comp Metabolic Xnt530 ALK PHOS 102 U/L 07/31/2015 Comp Metabolic Rxp875 AST(SGOT) 22 U/L 07/31/2015 Comp Metabolic Edv003 ALT(SGPT) 14 U/L 07/31/2015 Comp Metabolic Dge576 BILI T 0.5 mg/dL 07/31/2015 Comp Metabolic Uqe988 ALBUMIN 4.4 g/dL 07/31/2015 Comp Metabolic Xsu713 TPRO 6.7 g/dL 07/31/2015 Comp Metabolic Gjj102 GLOB 2.3 g/dL 07/31/2015 Comp Metabolic Anj006 A/G Ratio 1.9 Ratio 07/31/2015 Comp Metabolic Tom834 Osmo 270 mOsmo 07/31/2015 Tsh Ord6 hTSH [...] Lipid Ord30 C/HDL 4.8 Ratio 07/31/2015 Pt Uyu3372 PT 31.9 seconds 07/03/2015 Pt Bqt3786 INR 3.2 07/03/2015 Pt Zci9951 Low Intensity - 1.5-2.0 07/03/2015 Pt Yxr4850 Mod intensity - 2.0-3.0 07/03/2015 Pt Ayn8745 Hi intensity - 3.0-4.0 07/03/2015 Review of Systems System Result Effective Dates Constitutional No recent illness 01/05/2017 Constitutional No [...] masses 10/16/2016 None Full Exam - General 1995 [...] flexion 10/16/2016 None Full Exam - General 1995 Musculoskeletal gait and station Overall: normal gait [...] gingiva 10/06/2016 None Full Exam - General 1995 Ears/Nose/Throat lips/teeth/gingiva Overall: no masses 10/06/2016 None [...] benign 01/11/2015 None Procedures Procedure Codes Date TRIAMCINOLONE ACET INJ NOS CPT-4: B9164Urcezdc 10/06/2016 ROCEPHIN, PER 250 MG CPT-4: A6441Jhurdbk 10/06/2016 THER/PROPH/DIAG INJ SC/IM CPT-4: 84168Fcchwbm 10/06/2016 TRIAMCINOLONE ACET INJ NOS CPT-4: F6257Casnobd 04/28/2016 URINALYSIS NONAUTO W/O SCOPE CPT-4: 46777Wtqzwcp 04/03/2016 ADMIN INFLUENZA VIRUS VAC CPT-4: U7823Gctczxo 07/03/2015 FLU VACC PRSV FREE INC ANTIG CPT-4: 81551Ytswwqb 07/03/2015 Vital Signs Date Vital 01/05/2017 Blood Pressure 1: 142/78 Code: 8480-6 BMI: 28.9 Code: 83096-5 Heart Rate 1: 94 bpm Height: 5'6" SpO2: 95% Weight: 179 lbs 12/19/2016 Blood Pressure 1: 130/74 Code: 8480-6 Heart Rate 1: 91 bpm Height: 5'6" SpO2: 97% Weight: 11/13/2016 Blood Pressure 1: 152/82 Code: 8480-6 BMI: 28.4 Code: 71948-4 Heart Rate 1: 85 bpm Height: 5'6" SpO2: 96% Weight: 176 lbs 10/16/2016 Blood Pressure 1: 148/72 Code: 8480-6 BMI: 28.4 Code: 10747-5 Heart Rate 1: 90 bpm Height: 5'6" SpO2: 96% Weight: 176 lbs 10/06/2016 Blood Pressure 1: 150/80 Code: 8480-6 BMI: 28.4 Code: 47529-9 Heart Rate 1: 76 bpm Height: 5'6" SpO2: 97% Weight: 176 lbs 07/02/2016 Blood Pressure 1: 142/78 Code: 8480-6 BMI: 27.8 Code: 30759-3 Heart Rate 1: 85 bpm Height: 5'6" SpO2: 97% Weight: 172 lbs 05/21/2016 Blood Pressure 1: 166/80 Code: 8480-6 BMI: 27.9 Code: 43462-5 Heart Rate 1: 79 bpm Height: 5'6" SpO2: 98% Weight: 173 lbs 05/07/2016 Blood Pressure 1: 140/70 Code: 8480-6 BMI: 27.9 Code: 01435-2 Heart Rate 1: 82 bpm Height: 5'6" SpO2: 96% Weight: 173 lbs 04/28/2016 Blood Pressure 1: 128/86 Code: 8480-6 BMI: 27.4 Code: 38318-1 Heart Rate 1: 86 bpm Height: 5'6" SpO2: 96% Temperature: 36.1 (C) / 97.0 (F) Weight: 170 lbs 04/07/2016 Blood Pressure 1: 150/80 Code: 8480-6 Heart Rate 1: 94 bpm Height: SpO2: 95% Weight: 04/03/2016 Blood Pressure 1: 122/76 Code: 8480-6 BMI: 27.4 Code: 00533-4 Heart Rate 1: 84 bpm Height: 5'6" SpO2: 94% Weight: 170 lbs 01/31/2016 Blood Pressure 1: 124/82 Code: 8480-6 BMI: 27.8 Code: 50951-3 Heart Rate 1: 100 bpm Height: 5'6" SpO2: 97% Weight: 172 lbs 11/29/2015 Blood Pressure 1: 140/82 Code: 8480-6 Blood Pressure 1: 130/84 Code: 8480-6 BMI: 27.4 Code: 25734-5 Heart Rate 1: 97 bpm Height: 5'6" SpO2: 95% Weight: 170 lbs 10/01/2015 Blood Pressure 1: 130/80 Code: 8480-6 BMI: 27.4 Code: 40363-4 Heart Rate 1: 82 bpm Height: 5'6" SpO2: 97% Weight: 170 lbs 08/30/2015 Blood Pressure 1: 120/68 Code: 8480-6 BMI: 27.6 Code: 69671-7 Heart Rate 1: 91 bpm Height: 5'6" SpO2: 96% Weight: 171 lbs 07/31/2015 Blood Pressure 1: 180/80 Code: 8480-6 BMI: 27.4 Code: 78850-7 Heart Rate 1: 60 bpm Height: 5'6" SpO2: 94% Weight: 170 lbs 07/03/2015 Blood Pressure 1: 154/80 Code: 8480-6 BMI: 27.4 Code: 65867-7 Heart Rate 1: 98 bpm Height: 5'6" SpO2: 95% Weight: 170 lbs 04/10/2015 Blood Pressure 1: 138/72 Code: 8480-6 BMI: 27.8 Code: 86187-6 Heart Rate 1: 82 bpm Height: 5'6" SpO2: 98% Weight: 172 lbs 01/11/2015 Blood Pressure 1: 132/74 Code: 8480-6 BMI: 28.6 Code: 78868-5 Heart Rate 1: 88 bpm Height: 5'6" SpO2: 96% Weight: 177 lbs Functional Status No Functional Status data History of Present Illness Symptom Name Status Result Effective Date Notes hypertension Quality intermittent 01/05/2017 None hypertension Onset [...] data Encounters Encounter Performer Location Codes Date ([id number]) 94075 EST. PATIENT, LEVEL IV Diagnosis: Essential (primary) hypertension[ICD10: I10] Diagnosis: Atrophy of thyroid (acquired)[ICD10: E03.4] Diagnosis: Vascular dementia without behavioral disturbance[ICD10: F01.50] [facility] CPT-4: 00685 01/05/2017 73351 EST. PATIENT, LEVEL III Diagnosis: Cervicalgia[ICD10: M54.2] Diagnosis: Other muscle spasm[ICD10: M62.838] [facility] CPT-4: 25874 12/19/2016 ([id number]) 33553 EST. PATIENT, LEVEL III Diagnosis: Essential (primary) hypertension[ICD10: I10] Diagnosis: Gastro-esophageal reflux disease without esophagitis[ICD10: K21.9] [facility] CPT-4: 77871 11/13/2016 ([id number]) 64348 EST. 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 PATIENT, LEVEL IV Diagnosis: Pneumonia due to other specified bacteria[ICD10: J15.8] Diagnosis: Pain in right shoulder[ICD10: M25.511] Diagnosis: Cough[ICD10: R05] [facility], [facility] CPT-4: 94022 10/06/2016 ([id number]) 09028 EST. PATIENT, LEVEL IV Diagnosis: Essential (primary) hypertension[ICD10: I10] Diagnosis: Personal history of other specified conditions[ICD10: Z87.898] Diagnosis: Unsteadiness on feet[ICD10: R26.81] [facility], [facility] CPT- 4: 55808 07/02/2016 ([id number]) 37556 EST. PATIENT, LEVEL IV Diagnosis: Dysphagia, pharyngeal phase[ICD10: R13.13] Diagnosis: Urge incontinence[ICD10: N39.41] Diagnosis: Gastro-esophageal reflux disease without esophagitis[ICD10: K21.9] [facility], [facility] CPT-4: 06388 05/21/2016 ([id number]) 08248 EST. PATIENT, LEVEL III Diagnosis: Gastro-esophageal reflux disease without esophagitis[ICD10: K21.9] [facility], [facility] CPT-4: 16333 05/07/2016 ([id number]) 34280 EST. PATIENT, LEVEL III Diagnosis: Acute laryngopharyngitis[ICD10: J06.0] Diagnosis: Dysphagia, pharyngeal phase[ICD10: R13.13] Diagnosis: Allergic rhinitis due to pollen[ICD10: J30.1] Mimi [facility] MD, [facility] CPT-4: 11506 04/28/2016 ([id number]) Miscellaneous no charge Diagnosis: Acute laryngopharyngitis[ICD10: J06.0] Wendi [facility] MD, [facility] CPT- 4: 75510 04/10/2016 68513 EST. 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 PATIENT, LEVEL IV Diagnosis: Essential (primary) hypertension[ICD10: I10] Diagnosis: Hypothyroidism, unspecified[ICD10: E03.9] Diagnosis: Other fatigue[ICD10: R53.83] Diagnosis: Urge incontinence[ICD10: N39.41] Mimi Anaya MD, [facility] CPT- 4: 03901 04/03/2016 ([id number]) 44754 EST. PATIENT, LEVEL IV Diagnosis: Essential (primary) hypertension[ICD10: I10] Diagnosis: Pain in right ankle and joints of right foot[ICD10: M25.571] Diagnosis: Dizziness and giddiness[ICD10: R42] Diagnosis: Tinnitus, bilateral[ICD10: H93.13] Mimi Anaya MD, [facility] CPT- 4: 52838 01/31/2016 ([id number]) 19902 EST. PATIENT, LEVEL IV Diagnosis: Essential (primary) hypertension[ICD10: I10] Diagnosis: Otalgia, right ear[ICD10: H92.01] Diagnosis: Allergic rhinitis due to pollen[ICD10: J30.1] Diagnosis: Hypothyroidism, unspecified[ICD10: E03.9] Mimi [facility] MD, [facility] CPT-4: 98543 11/29/2015 ([id number]) 62110 EST. PATIENT, LEVEL IV Diagnosis: Essential (primary) hypertension[ICD10: I10] Diagnosis: Urge incontinence[ICD10: N39.41] Diagnosis: Unspecified dementia without behavioral disturbance[ICD10: F03.90] Mimi [facility]aya MD, [facility] CPT-4: 54813 10/01/2015 ([id number]) 00864 EST. PATIENT, LEVEL IV Diagnosis: Essential (primary) hypertension[ICD10: I10] Diagnosis: Hypothyroidism, unspecified[ICD10: E03.9] Diagnosis: Unspecified dementia without behavioral disturbance[ICD10: F03.90] Diagnosis: Urge incontinence[ICD10: N39.41] Mimi Anaya MD, [facility] CPT- 4: 71506 08/30/2015 ([id number] 91772 EST. PATIENT, LEVEL IV Diagnosis: Essential (primary) hypertension[ICD10: I10] Diagnosis: Hypothyroidism, unspecified[ICD10: E03.9] Diagnosis: Hyperlipidemia, unspecified[ICD10: E78.5] [facility] MD, [facility] CPT-4: 79072 07/31/2015 ([id number]) 13759 EST. 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 PATIENT, LEVEL IV Diagnosis: ESSENTIAL HYPERTENSION[ICD9: 401.9] Diagnosis: MACULAR DEGENERATION[ICD9: 362.50] Diagnosis: Peripheral vascular disease[ICD9: 443.9] Diagnosis: Neuropathy[ICD9: 355.9] [facility] MD, [facility] CPT-4: 40771 04/10/2015 ([id number]) OFFICE/OUTPATIENT VISIT NEW Diagnosis: ESSENTIAL HYPERTENSION[ICD9: 401.9] Diagnosis: HYPOTHYROIDISM[ICD9: 244.9] Diagnosis: URGE INCONTINENCE[ICD9: 788.31] Diagnosis: Constipation - functional[ICD9: 564.09] [facility] MD, [facility] CPT-4: 19964 01/11/2015 Plan of Care Planned Activity Notes Codes Status Date Visit Plan: Hypertension - well controlled - [...] of control. 01/05/2017 Appointment: Carleen Anaya WPtel: [facility] (15 min) Moderate 01/05/2017 Patient Education: Patient Medication Summary Completed 01/05/2017 Visit Plan: Neck Pain- pt to start with aspercreme or biofreeze to neck three times daily and start neck exercises daily. Will send RX - The patient is to call the office if the pain is worsening or does not improve. 12/19/2016 App[facility]ment[facility] ([facility] Complex 12/19/2016 Patient Education: [...] not improving. 11/13/2016 Appointment: Carleen Anaya WPtel: [facility] (15 min) Moderate 11/13/2016 Patient Education: Patient Medication Summary Completed 11/13/2016 Visit Plan: Insomnia -extended release melatonin - you can take up to 10mg of melatoninsleepy time tea - - use warm milk in the tea.Right shoulder - pt to continue with therapy, anti-inflammatory 10/16/2016 Appointment: Carleen Anaya WPtel: [facility] (15 min) Moderate 10/16/2016 Patient Education: Patient [...] pt. 10/06/2016 [phone] ([facility] Moderate 10/06/2016 Patient Education: Patient Medication Summary Completed 10/06/2016 Care Plan: CHEST X-RAY 2VW FRONTAL&LATL LOINC : 53828-8 Pending 10/06/2016 Care Plan: X-RAY EXAM OF SHOULDER LOINC : 23438-0 Pending 10/06/2016 Appointment: Carleen Anaya WPtel: [phone] [facility] (30 min) Complex 10/01/2016 Referral: [facility]: [address] [facility] Patient informed. Completed 07/08/2016 Visit [...] therapy. 07/02/2016 Appointment: Carleen Anaya WPtel: [phone] [facility] (15 min) Moderate 07/02/2016 Patient Education: Patient Medication Summary Completed 07/02/2016 Care Plan: Referral Order SNOMED-CT : [id number] Pending 07/02/2016 Visit Plan: Hypertension - well [...] planning on getting a flu shot at [facility] and she is due for another pneumovax-last pneumovax was in 2008 - so she can have pneumovax now and the prevnar in 2017 05/21/2016 Appointment: Carleen Anaya WPtel: [facility] (15 min) Moderate 05/21/2016 Patient Education: Patient Medication Summary Completed 05/21/2016 Referral: Medardo Del Real [address] Referral Completed 05/12/2016 Visit Plan: Esophageal [...] times daily 05/07/2016 Appointment: Carleen Anaya WPtel: [address] [place] [address] (15 min) Moderate 05/07/2016 Patient Education: Patient Medication Summary Completed 05/07/2016 Appointment: Mimi Espinosa WPtel: [facility] [place] [phone] (30 min) Complex 05/01/2016 Visit Plan: Allergies [...] spray.Kenalog injection today in the office Sore kogwtn-zqfipokyx-wkpgs dexilant-refer to Dr Del Real for evaluation 04/28/2016 Appointment: Mimi Espinosa WPtel: [facility] (30 min) Complex 04/28/2016 Patient Education: [...] medication switched. 04/07/2016 Appointment: Wend[facility] Uriostegui [facility]Ptel[facility] [place] (30 min) Complex 04/07/2016 Patient Education: [...] check labs including UA-culture if positive Urge szjsrffahesf-lfcjruplq-oolow UA with C&S 04/03/2016 Appointment: Mimi Espinosa WPtel: [address] [phone] [place] (30 min) Complex 04/03/2016 Patient Education: Patient Medication Summary Completed 04/03/2016 Visit Plan: Hypertension - well controlled - continue with current medications, continue with no added salt diet. Pt has been encouraged to exercise daily.The pt has been advised to call the office if there are any acute concerns about change in blood pressure readings at home.Ehrkriwnj-xhetprjp-xuwazbun MRI brain Right ankle eejk-qiyzamr-flfh right ankle-plan to refer to physical therapy if appropriate 01/31/2016 Appointment: Mimi Espinosa [facility]el[phone] [place] (30 min) Complex 01/31/2016 Patient Education: Patient [...] medications. 07/31/2015 [facility] (15 min) Moderate 07/31/2015 Patient Education: Patient Medication Summary Completed 07/31/2015 Patient Education: Hypertension Completed 07/31/2015 Care Plan: Referral Order SNOMED-CT : [id number] Ordered 07/31/2015 Visit Plan: Hypertension - uncontrolled [...] Nortryptyline 07/03/2015 [facility]ment: [facility] (15 min) Moderate 07/03/2015 Patient Education: Patient [...] Completed 01/11/2015 Referral: [facility] WPtel: [address] [place], [place] [id number] Referral Appointment Requested Referral: External, Ordering Provider Ref[facility] [facility] Requested Instructions Comment Flonase 1 [...] planning on getting a flu shot at [facility] and she is due for another [...] Kenalog injection today in the office Sore jipqmt-uiedvwfxu-sxlyd dexilant-refer to Dr Del Real for evaluation [...] - pt to continue with therapy, anti-inflammatory Salon Pas with lidocaine patch - over [...] Fatigue-check labs including UA-culture if positive Urge axibgwbrmlqb-whxcjrlon-derjt UA with C&S . Hypertension - well controlled - continue with current medications, continue with no added salt diet. Pt has been encouraged to exercise daily. The pt has been advised to call the office if there are any acute concerns about change in blood pressure readings at home. Qsxtkyyfz-pfgxcyao-hpzpsrwg MRI brain Right ankle pwqp-ojwidip-stja right ankle-plan to refer to physical therapy [...]
--- NOTE | 2019-01-01 11:47 | Diagnostic Imaging Report ---
Indication: Left knee swelling AP, oblique, and lateral views of the left knee are obtained. We do not have previous studies for comparison. 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 The femoral component is a metallic component where as the tibial component is nonmetallic. Apparently the knee was replaced 38 years ago. There is no sign of fracture or acute bony abnormality. There are heterotopic calcifications about the knee joint. There are calcifications in the suprapatellar recess which may be loose bodies. Impression: Left knee prosthesis in place as above. No acute fracture is seen. There are heterotopic calcifications about the knee joint. There are calcifications in the suprapatellar recess which may be loose bodies. Correlation with previous films would be helpful if available elsewhere. Dictated by: Dictated on workstation # [id number]
--- OUTSIDE RECORDS SUMMARY | 2019-01-01 11:50 | XMS REPORT | CCD ---
Author Author [facility] Organization [facility] Address [address] [place] [address] Phone Care Team Providers Care Administrative Judge Name Role Phone PP Unavailable CCM Unavailable Summary Purpose Interface Exchange Insurance Providers Payer name Policy type / Coverage type Covered constitution party ID Effective Begin Date Effective End Date WPS Medicare Part B Medicare Part B [id number] Unknown Unknown [facility] Medicare Part B [id number] Unknown Unknown Family history Father Diagnosis Age At Onset Cancer Unknown Arthritis Unknown Mother Diagnosis Age At Onset Breast cancer Unknown Arthritis Unknown Social History Social History Element Codes Description Effective Dates Alcohol history Unknown occasionally drinks alcohol 06/08/2018 Frequency of drinks SNOMED CT: 695212300 Drinks rarely 06/08/2018 Marital status Unknown 01/11/2015 Number of children Unknown 3 01/11/2015 Employment Unknown Retired 01/11/[address]: 2705373 Quit over 10 years ago 1950 01/11/[address]: 678575139 Never drinks alcohol 01/11/2015 Allergies, Adverse Reactions, Alerts Substance Reaction Codes Entered Date Inactivated Date Status * OTHER REACTION - SEE ANSWER BOX vancogein red Unknown 01/11/2015 No Inactive Date Active CODEINE RxNorm: 2670 01/11/2015 No Inactive Date Active demerol RxNorm: 308830 08/30/2015 No Inactive Date Active hydrocodone Unknown 01/11/2015 No Inactive Date Active MORPHINE AND RELATED Unknown 01/11/2015 No Inactive Date Active Past Medical History Illness Codes Condition Status Onset Date Resolved Date Chronic systolic (congestive) heart failure ICD-9: 428.22 ICD-10: I50.22 Active 10/12/2017 Unknown Essential (primary) hypertension ICD-9: 401.1 ICD-10: I10 Active 11/13/2016 Unknown Hypoxemia ICD-9: 799.02 ICD-10: R09.02 Active 11/23/2018 Unknown Dysuria ICD-9: 788.1 ICD-10: R30.0 Active 2017 Unknown Other specified noninflammatory disorders of vagina [...] ICD-9: 782.3 ICD-10: R60.0 Active 08/05/2017 Unknown 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 ICD-9: V58.61 ICD-10: [...] Problems Condition Codes Effective Dates Condition Status Chronic systolic (congestive) heart failure ICD-9: 428.22 ICD-10: I50.22 10/12/2017 Active Essential (primary) hypertension ICD-9: 401.1 ICD-10: I10 11/13/2016 Active Hypoxemia ICD-9: 799.02 ICD-10: R09.02 11/23/2018 Active Dysuria ICD-9: 788.1 ICD-10: R30.0 2017 Active Other specified noninflammatory disorders of vagina ICD-9: 623.9 ICD-10: N89.8 11/01/2018 Active Atrophy of thyroid (acquired) ICD-9: 244.8 ICD-10: E03.4 01/05/2017 Active Other fatigue ICD-9: 780.79 ICD-10: R53.83 04/02/2016 Active Other insomnia ICD-9: 327.09 ICD-10: G47.09 06/29/2018 Active Encounter for general adult medical examination with abnormal findings ICD-9: V70.0 ICD-10: Z00.01 06/08/2018 Active Localized edema ICD-9: 782.3 ICD-10: R60.0 08/05/2017 Active 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 ICD-9: V58.61 ICD-10: [...] Fill Instructions Synthroid 175 mcg tablet RxNorm: 598773 1 Tablet(s) PO daily 09/30/2018 02/26/2019 Active this is an update on the dose - she is to take this daily - hold off on the 200mcg pills for now Synthroid 175 mcg tablet RxNorm: 695132 1 Tablet(s) PO 5 times weekly 09/30/2018 09/29/2018 Inactive alternate with 175mcg order losartan 25 mg tablet RxNorm: 569701 TAKE 1 TABLET BY MOUTH ONCE DAILY 08/30/2018 No Stop Date Active Myrbetriq 50 mg tablet,extended release RxNorm: 5458391 1 Tablet(s) PO daily 08/24/2018 12/21/2018 Active Synthroid 175 mcg tablet RxNorm: 715303 1 Tablet(s) PO 4 times a week Thu sun 07/20/2018 09/29/2018 Inactive alternate with 175mcg order Synthroid 200 mcg tablet RxNorm: 258727 Tablet(s) TAKE ONE TABLET BY MOUTH ON THURSDAY, Thursday07/20/2018 09/29/2018 Inactive pantoprazole 40 mg tablet,delayed release RxNorm: 200903 TAKE ONE TABLET BY MOUTH TWICE DAILY 07/19/2018 No Stop Date Active furosemide 40 mg tablet RxNorm: 992641 1 Tablet(s) PO 2 times weekly with song butler 07/13/2018 No Stop Date Active Synthroid 200 mcg tablet RxNorm: 535325 TAKE ONE TABLET BY MOUTH ON THURSDAY, THURSDAY, AND Thursday07/13/2018 07/19/2018 Inactive Vitamin D3 400 unit capsule RxNorm: 314444 1 Capsule(s) PO daily 06/17/2018 No Stop Date Active Aspirin Low Dose 81 mg tablet,delayed release RxNorm: 171816 1 Tablet(s) PO BIW on Thursday and Thursday06/17/2018 No Stop Date Active biotin 1,000 mcg chewable tablet RxNorm: 2453069 1 Tablet(s) PO daily 06/17/2018 No Stop Date Active Vitamin B-12 500 mcg tablet RxNorm: 620922 1 Tablet(s) PO daily 06/17/2018 No Stop Date Active Colace 100 mg capsule RxNorm: 4971214 1 Capsule(s) PO QHS 06/08/2018 No Stop Date Active Coumadin 3 mg tablet RxNorm: 790788 1 Tablet(s) PO daily x5 days and 2 mg x2 days -Managed by Dr. Bowman 06/08/2018 No Stop Date Active Keflex 500 mg capsule RxNorm: 397552 1 Capsule(s) PO TID 05/25/2018 05/31/2018 Inactive metoprolol succinate ER 100 mg tablet,extended release 24 hr RxNorm: 611446 Tablet(s) TAKE ONE TABLET BY MOUTH ONCE DAILY 05/19/2018 No Stop Date Active Coumadin 3 mg tablet RxNorm: 294471 1 Tablet(s) PO daily -Managed by Dr. Bowman 05/04/2018 06/07/2018 Inactive Synthroid 175 mcg tablet RxNorm: 852032 TAKE 1 TABLET BY MOUTH ONCE DAILY 04/06/2018 06/07/2018 Inactive cyclobenzaprine 5 mg tablet RxNorm: 980629 1/2 Tablet(s) PO TID 04/06/2018 04/15/2018 Inactive Synthroid 200 mcg tablet RxNorm: 405598 1 Tablet(s) PO TIW [facility] 04/05/2018 07/12/2018 Inactive brand name only- Alternate with 175mcg dose schedule Synthroid 175 mcg tablet RxNorm: 160971 1 Tablet(s) PO 4 times a week Thu04/05/2018 07/19/2018 Inactive alternate with 175mcg order cyclobenzaprine 5 mg tablet RxNorm: 945718 1/2 Tablet(s) PO TID 03/23/2018 04/01/2018 Inactive tramadol 50 mg tablet RxNorm: 859185 1 Tablet(s) PO TID as needed 03/17/2018 No Stop Date Active Kenalog 40 mg/mL suspension for injection RxNorm: 5451689 2 Milliliter(s) Inj 03/12/2018 03/12/2018 Inactive prednisone 20 mg tablet RxNorm: 302825 2 Tablet(s) PO daily 03/11/2018 03/10/2018 Inactive prednisone 20 mg tablet RxNorm: 221862 2 Tablet(s) PO daily 03/11/2018 03/15/2018 Inactive losartan 25 mg tablet RxNorm: 713778 TAKE ONE TABLET BY MOUTH ONCE DAILY 02/16/2018 08/29/2018 Inactive doxycycline hyclate 100 mg tablet RxNorm: 8136140 1 Tablet(s) PO BID 02/08/2018 02/14/2018 Inactive ceftriaxone 500 mg solution for injection RxNorm: 7901044 Inj 02/08/2018 02/08/2018 Inactive dapsone 25 mg tablet RxNorm: 585599 2 Tablet(s) PO daily 02/08/2018 02/12/2018 Inactive metoprolol succinate ER 100 mg tablet,extended release 24 hr RxNorm: 454165 TAKE ONE TABLET BY MOUTH ONCE DAILY 01/05/2018 05/18/2018 Inactive Synthroid 175 mcg tablet RxNorm: 805145 1 Tablet(s) PO daily 01/01/2018 03/31/2018 Inactive Synthroid 175 mcg tablet RxNorm: 442269 1 Tablet(s) PO daily 01/01/2018 12/31/2017 Inactive Myrbetriq 50 mg tablet,extended release RxNorm: 9724275 1 Tablet(s) PO daily 12/03/2017 01/01/2018 Inactive Zithromax Z-Oliver 250 mg tablet RxNorm: 163875 1 Tablet(s) PO UD 10/12/2017 10/16/2017 Inactive Tessalon Perles 100 mg capsule RxNorm: 289971 2 Capsule(s) PO TID as needed 10/12/2017 10/16/2017 Inactive prednisone 20 mg tablet RxNorm: 470273 2 Tablet(s) PO daily 10/12/2017 10/16/2017 Inactive cefdinir 300 mg capsule RxNorm: 955580 1 Capsule(s) PO BID 10/08/2017 10/07/2017 Inactive Synthroid 150 mcg tablet RxNorm: 131473 1 Tablet(s) PO daily in morning, except 1/2 Tablet PO Thu, Sat, take 30 minutes before meal 10/08/2017 04/04/2018 Inactive brand name only cefdinir 300 mg capsule RxNorm: 568728 1 Capsule(s) PO BID 10/08/2017 10/14/2017 Inactive Synthroid 150 mcg tablet RxNorm: 628854 1 Tablet(s) PO daily in morning, take 30 minutes before meal 10/06/2017 10/07/2017 Inactive brand name only cefdinir 300 mg capsule RxNorm: 795067 1 Capsule(s) PO BID 08/24/2017 08/30/2017 Inactive Zithromax Z-Oliver 250 mg tablet RxNorm: 214184 1 Tablet(s) PO UD 08/20/2017 08/19/2017 Inactive Zithromax Z-Oliver 250 mg tablet RxNorm: 610144 1 Tablet(s) PO UD 08/20/2017 08/24/2017 Inactive Synthroid 150 mcg tablet RxNorm: 722397 1 Tablet(s) PO daily in morning, take 30 minutes before meal 08/05/2017 08/04/2017 Inactive Synthroid 150 mcg tablet RxNorm: 382830 1 Tablet(s) PO daily in morning, take 30 minutes before meal 08/05/2017 10/05/2017 Inactive Coumadin 3 mg tablet RxNorm: 416638 1 Tablet(s) PO Thursday, , , and Sat- Managed by Dr. Bowman -Managed by Dr. Bowman 08/05/2017 05/03/2018 Inactive pantoprazole 40 mg tablet,delayed release RxNorm: 983731 1 Tablet(s) PO BID 07/08/2017 07/02/2018 Inactive pantoprazole 40 mg tablet,delayed release RxNorm: 197749 1 Tablet(s) PO BID 07/08/2017 07/07/2017 Inactive metoprolol succinate ER 100 mg tablet,extended release 24 hr RxNorm: 435730 TAKE ONE TABLET BY MOUTH ONCE DAILY 07/08/2017 01/04/2018 Inactive Coumadin 3 mg tablet RxNorm: 412481 1 Tablet(s) PO QPM -Managed by Dr. Bowman 07/06/2017 08/04/2017 Inactive Coumadin 3 mg tablet RxNorm: 693952 1 Tablet(s) PO QPM at 6:00pm Managed by Dr Bowman 1/2 pill on thursday and thursday, full pill other days 06/18/2017 07/05/2017 Inactive Voltaren 1 % topical gel RxNorm: 993463 2 TOP QID 06/18/2017 10/15/2017 Inactive Micro-K 10 10 mEq capsule,extended release RxNorm: 313388 1 Capsule(s) PO daily 05/08/2017 12/02/2017 Inactive Synthroid 137 mcg tablet RxNorm: 893064 1 Tablet(s) PO QAM 05/08/2017 08/04/2017 Inactive Dose increased 04/14/17 pravastatin 10 mg tablet RxNorm: 075282 1 Tablet(s) PO daily TAKE ONE TABLET BY MOUTH ONCE DAILY 05/08/2017 12/02/2017 Inactive losartan 25 mg tablet RxNorm: 031751 1 Tablet(s) PO daily TAKE ONE TABLET BY MOUTH ONCE DAILY 05/08/2017 06/07/2018 Inactive Namenda 10 mg tablet RxNorm: 724557 TAKE ONE TABLET BY MOUTH TWICE DAILY 05/07/2017 12/02/2017 Inactive Keflex 500 mg capsule RxNorm: 003232 1 Capsule(s) PO TID 04/27/2017 05/03/2017 Inactive Synthroid 137 mcg tablet RxNorm: 108466 1 Tablet(s) PO QAM 04/14/2017 04/13/2017 Inactive Vitamin D2 50,000 unit capsule RxNorm: 164847 1 Capsule(s) PO QW 04/14/2017 12/02/2017 Inactive Synthroid 137 mcg tablet RxNorm: 390751 1 Tablet(s) PO QAM 04/14/2017 05/07/2017 Inactive losartan 25 mg tablet RxNorm: 702960 TAKE ONE TABLET BY MOUTH ONCE DAILY 03/23/2017 05/07/2017 Inactive Synthroid 125 mcg tablet RxNorm: 247638 TAKE ONE TABLET BY MOUTH ONCE DAILY 03/12/2017 04/12/2017 Inactive ciprofloxacin 500 mg tablet RxNorm: 279323 1 Tablet(s) PO BID 2017 03/13/2017 Inactive prednisone 20 mg tablet RxNorm: 725531 2 Tablet(s) PO daily 03/03/2017 03/07/2017 Inactive tramadol 50 mg tablet RxNorm: 665615 1/2 Tablet(s) PO TID as needed 03/03/2017 12/02/2017 Inactive pravastatin 10 mg tablet RxNorm: 107164 TAKE ONE TABLET BY MOUTH ONCE DAILY 01/19/2017 05/07/2017 Inactive nortriptyline 10 mg capsule RxNorm: 349439 TAKE ONE CAPSULE BY MOUTH ONCE DAILY IN THE EVENING 01/14/2017 12/02/2017 Inactive Voltaren 1 % topical gel RxNorm: 372713 TOP QID 12/22/2016 02/19/2017 Inactive Voltaren 1 % topical gel RxNorm: 316311 TOP QID 12/22/2016 12/21/2016 Inactive prednisone 20 mg tablet RxNorm: 417868 2 Tablet(s) PO daily 12/19/2016 12/23/2016 Inactive cyclobenzaprine 5 mg tablet RxNorm: 613083 1/2 Tablet(s) PO BID as needed 12/19/2016 12/23/2016 Inactive Flector 1.3 % transdermal 12 hour patch RxNorm: 210985 1 Patch TOP every 12 hours as needed 12/19/2016 12/02/2017 Inactive losartan 25 mg tablet RxNorm: 392879 1 Tablet(s) PO daily TAKE ONE TABLET BY MOUTH ONCE DAILY 11/13/2016 03/22/2017 Inactive Namenda 10 mg tablet RxNorm: 833498 TAKE ONE TABLET BY MOUTH TWICE DAILY 10/28/2016 04/25/2017 Inactive nortriptyline 10 mg capsule RxNorm: 539310 TAKE ONE CAPSULE BY MOUTH ONCE DAILY IN THE EVENING 10/13/2016 01/10/2017 Inactive ceftriaxone 500 mg solution for injection RxNorm: 4210085 Inj 10/06/2016 10/06/2016 Inactive cefdinir 300 mg capsule RxNorm: 471135 1 Capsule(s) PO BID 10/06/2016 10/12/2016 Inactive prednisone 20 mg tablet RxNorm: 557920 2 Tablet(s) PO daily 10/06/2016 10/08/2016 Inactive ProAir RespiClick 90 mcg/actuation breath activated RxNorm: 7422921 2 INH TID x 3 days then one inhale tid x 3 days then prn shortness of breath 10/06/2016 11/04/2016 Inactive Kenalog 40 mg/mL suspension for injection RxNorm: 8998936 1 Milliliter(s) Inj 10/06/2016 10/06/2016 Inactive Myrbetriq 50 mg tablet,extended release RxNorm: 8524389 1 Tablet(s) PO daily 09/11/2016 11/12/2016 Inactive Namenda 10 mg tablet RxNorm: 184379 TAKE ONE TABLET BY MOUTH TWICE DAILY 07/25/2016 10/22/2016 Inactive hydrochlorothiazide 25 mg tablet RxNorm: 760677 1 Tablet(s) PO daily 07/25/2016 12/02/2017 Inactive Synthroid 125 mcg tablet RxNorm: 901345 TAKE ONE TABLET BY MOUTH ONCE DAILY 07/14/2016 03/10/2017 Inactive losartan 25 mg tablet RxNorm: 211095 TAKE ONE TABLET BY MOUTH ONCE DAILY 07/07/2016 11/12/2016 Inactive metoprolol succinate ER 100 mg tablet,extended release 24 hr RxNorm: 073925 1 Tablet(s) PO daily 06/16/2016 06/10/2017 Inactive nortriptyline 10 mg capsule RxNorm: 716962 Capsule(s) TAKE ONE CAPSULE BY MOUTH ONCE DAILY IN THE EVENING 06/09/2016 10/06/2016 Inactive Myrbetriq 50 mg tablet,extended release RxNorm: 7520506 1 Tablet(s) PO daily 05/21/2016 09/10/2016 Inactive doxycycline hyclate 100 mg tablet RxNorm: 275552 1 Tablet(s) PO BID 05/07/2016 05/13/2016 Inactive Carafate 100 mg/mL oral suspension RxNorm: 893900 10 Milliliter(s) PO QID 05/07/2016 12/02/2017 Inactive Kenalog 40 mg/mL suspension for injection RxNorm: 5769688 Milliliter(s) Inj 04/28/2016 04/28/2016 Inactive losartan 25 mg tablet RxNorm: 301489 TAKE ONE TABLET BY MOUTH ONCE DAILY 04/08/2016 07/06/2016 Inactive ciprofloxacin 500 mg tablet RxNorm: 612835 1 Tablet(s) PO BID 04/07/2016 04/13/2016 Inactive cyclobenzaprine 5 mg tablet RxNorm: 004532 1 Tablet(s) PO TID 04/07/2016 04/16/2016 Inactive Keflex 500 mg capsule RxNorm: 554605 1 Capsule(s) PO TID 04/03/2016 04/02/2016 Inactive Keflex 500 mg capsule RxNorm: 930701 1 Capsule(s) PO TID 04/03/2016 04/09/2016 Inactive losartan 25 mg tablet RxNorm: 723416 TAKE ONE TABLET BY MOUTH ONCE DAILY 03/06/2016 04/07/2016 Inactive nortriptyline 10 mg capsule RxNorm: 626335 TAKE ONE CAPSULE BY MOUTH ONCE DAILY IN THE EVENING 03/06/2016 06/03/2016 Inactive pravastatin 10 mg tablet RxNorm: 172534 TAKE ONE TABLET BY MOUTH ONCE DAILY 02/04/2016 01/18/2017 Inactive warfarin 4 mg tablet RxNorm: 269679 Tablet(s) PO q d except 5mg on tue 01/31/2016 06/17/2017 Inactive Myrbetriq 50 mg tablet,extended release RxNorm: 9297534 1 Tablet(s) PO daily 01/17/2016 05/15/2016 Inactive Namenda 10 mg tablet RxNorm: 333706 1 Tablet(s) PO BID 01/01/2016 06/28/2016 Inactive Myrbetriq 50 mg tablet,extended release RxNorm: 3693030 1 Tablet(s) PO daily 12/20/2015 12/20/2015 Inactive Synthroid 125 mcg tablet RxNorm: 565881 1 Tablet(s) PO daily 11/14/2015 07/10/2016 Inactive nortriptyline 10 mg capsule RxNorm: 816063 TAKE ONE CAPSULE BY MOUTH ONCE DAILY IN THE EVENING 11/05/2015 03/03/2016 Inactive Myrbetriq 50 mg tablet,extended release RxNorm: 3580005 1 Tablet(s) PO daily 10/01/2015 12/19/2015 Inactive Namenda 10 mg tablet RxNorm: 179074 1 Tablet(s) PO BID 08/30/2015 12/31/2015 Inactive Vesicare 10 mg tablet RxNorm: 339371 1 Tablet(s) PO daily 08/30/2015 09/30/2015 Inactive warfarin 4 mg tablet RxNorm: 858660 Tablet(s) PO 08/30/2015 01/30/2016 Inactive Synthroid 125 mcg tablet RxNorm: 295402 1 Tablet(s) PO daily 08/02/2015 11/13/2015 Inactive Synthroid 125 mcg tablet RxNorm: 892423 Tablet(s) PO 08/01/2015 08/01/2015 Inactive losartan 25 mg tablet RxNorm: 643392 1 Tablet(s) PO daily 07/31/2015 02/25/2016 Inactive pravastatin 10 mg tablet RxNorm: 074011 1 Tablet(s) PO daily 07/23/2015 01/18/2016 Inactive hydrochlorothiazide 25 mg tablet RxNorm: 725326 1 Tablet(s) PO daily 07/19/2015 07/12/2016 Inactive nortriptyline 10 mg capsule RxNorm: 812303 1 Capsule(s) PO QPM 07/03/2015 10/30/2015 Inactive metoprolol succinate ER 100 mg tablet,extended release 24 hr RxNorm: 417693 1 Tablet(s) PO daily 06/06/2015 05/30/2016 Inactive pravastatin 10 mg tablet RxNorm: 608392 1 Tablet(s) PO daily 01/22/2015 07/20/2015 Inactive aspirin 81 mg capsule,delayed release RxNorm: 309461 1 Capsule(s) PO daily 01/11/2015 02/09/2015 Inactive Fosamax 5 mg tablet RxNorm: 253866 1 Tablet(s) QW 01/11/2015 12/02/2017 Inactive oxybutynin chloride ER 10 mg tablet,extended release 24 hr RxNorm: 130203 1 Tablet(s) PO daily 01/11/2015 08/29/2015 Inactive Fosamax 70 mg tablet RxNorm: 136205 1 Tablet(s) PO QW No Start Date Active Claritin oral RxNorm: 26855 oral No Start Date Active Centrum oral RxNorm: oral No Start Date Active Calcium 600 + D(3) oral RxNorm: 423985 oral No Start Date Active Coumadin 4 mg tablet RxNorm: 743691 1 Tablet(s) PO daily on M,W,F No Start Date 06/07/2018 Inactive Vitamin D3 oral RxNorm: oral No Start Date 06/16/2018 Inactive pravastatin 10 mg tablet RxNorm: 527728 1 Tablet(s) PO daily No Start Date 01/21/2015 Inactive Aspirin Low Dose 81 mg tablet,delayed release RxNorm: 194946 1 Tablet(s) PO BIW on Thursday and Thursday No Start Date 06/16/2018 Inactive Tylenol PM oral RxNorm: 586350 oral No Start Date 04/07/2017 Inactive Vitamin D2 oral RxNorm: 4018 oral No Start Date 06/08/2018 Inactive Vitamin D2 50,000 unit capsule RxNorm: 444571 1 Capsule(s) PO QW No Start Date 04/13/2017 Inactive tramadol 50 mg tablet RxNorm: 349293 1 Tablet(s) PO TID as needed No Start Date 03/16/2018 Inactive Colace 100 mg capsule RxNorm: 6945891 Capsule(s) PO No Start Date 06/07/2018 Inactive furosemide 40 mg tablet RxNorm: 735462 1 Tablet(s) PO daily as needed No Start Date 07/12/2018 Inactive biotin oral RxNorm: oral No Start Date 06/16/2018 Inactive Micro-K 10 10 mEq capsule,extended release RxNorm: 336625 1 Capsule(s) PO daily No Start Date 05/07/2017 Inactive Synthroid 100 mcg tablet RxNorm: 196651 Tablet(s) PO No Start Date 07/31/2015 Inactive Vitamin B-12 oral RxNorm: oral No Start Date 06/16/2018 Inactive PreserVision AREDS 2 oral RxNorm: 7107072 oral No Start Date 06/07/2018 Inactive hydrochlorothiazide 25 mg tablet RxNorm: 000103 1 Tablet(s) PO daily No Start Date 07/18/2015 Inactive warfarin 2 mg tablet RxNorm: 747392 Tablet(s) PO No Start Date 08/29/2015 Inactive metoprolol succinate ER 100 mg tablet,extended release 24 hr RxNorm: 497068 1 Tablet(s) PO daily No Start Date 06/05/2015 Inactive warfarin 3 mg tablet RxNorm: 175166 Tablet(s) PO No Start Date 08/29/2015 Inactive Coumadin 3 mg tablet RxNorm: 501575 1 Tablet(s) PO QPM at 6:00pm Managed by Dr Bowman No Start Date 06/17/2017 Inactive Myrbetriq 50 mg tablet,extended release RxNorm: 7426906 1 Tablet(s) PO daily No Start Date 08/23/2018 Inactive Medication Administered Medication Codes Instructions Start Date Status Kenalog 40 mg/mL suspension for injection RxNorm: 4928358 2Milliliter 03/12/2018 No longer Active ceftriaxone 500 mg solution for injection RxNorm: 4815649 02/08/2018 No longer Active Kenalog 40 mg/mL suspension for injection RxNorm: 7562505 1Milliliter 10/06/2016 No longer Active ceftriaxone 500 mg solution for injection RxNorm: 2907811 10/06/2016 No longer Active Kenalog 40 mg/mL suspension for injection RxNorm: 7274172 Milliliter 04/28/2016 No longer Active Immunizations Vaccine Codes Date Status SHINGARIX CVX: 121 09/07/2018 completed SHINGARIX CVX: 121 06/08/2018 completed Influenza CVX: 141 05/20/2018 completed Influenza CVX: 141 06/18/2017 completed Influenza CVX: 141 06/10/2016 completed Pneumococcal CVX: 133 05/29/2016 completed Influenza CVX: 141 07/03/2015 completed Assessments Condition Codes Effective Dates Chronic systolic (congestive) heart failure ICD-10: I50.22 [...] Localized edema ICD-10: R60.0 ICD-9: 782.3 05/24/2018 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 ICD-10: Z79.01 ICD-9: [...] Visit Reason For Visit Effective Dates Notes medication follow up 11/23/2018 vaginal bleeding 11/01/2018 [...] NO Growth Day 2 05/27/2018 Comp Metabolic Izm010 NA 142 mEq/L 05/24/2018 Comp Metabolic Uwh195 K 4.0 mEq/L 05/24/2018 Comp Metabolic Eay827 CL 104 mEq/L 05/24/2018 Comp Metabolic Fzh715 CO2 30.0 mEq/L 05/24/2018 Comp Metabolic Ztm991 ANION GAP 12 05/24/2018 Comp Metabolic Tvv835 GLUCOSE 94 mg/dL 05/24/2018 Comp Metabolic Byj397 Creat 0.6 mg/dL 05/24/2018 Comp Metabolic Gde433 eGFR 97 ml/min/1.73m2 05/24/2018 Comp Metabolic Tgv096 BUN 12 mg/dL 05/24/2018 Comp Metabolic Mlz225 B/C Ratio 19.4 Ratio 05/24/2018 Comp Metabolic Pvd331 CALCIUM 8.8 mg/dL 05/24/2018 Comp Metabolic Cwe967 ALK PHOS 135 U/L 05/24/2018 Comp Metabolic Tkc353 AST(SGOT) 18 U/L 05/24/2018 Comp Metabolic Qqn835 ALT(SGPT) 16 U/L 05/24/2018 Comp Metabolic Sfl738 BILI T 0.4 mg/dL 05/24/2018 Comp Metabolic Ljb742 ALBUMIN 3.9 g/dL 05/24/2018 Comp Metabolic Gjs506 TPRO 6.0 g/dL 05/24/2018 Comp Metabolic Ogv861 GLOB 2.1 g/dL 05/24/2018 Comp Metabolic Scs940 A/G Ratio 1.8 Ratio 05/24/2018 Comp Metabolic Qdq944 Osmo 283 mOsmo 05/24/2018 Pt Bgl0374 PT 28.2 seconds 05/24/2018 Pt Uct9354 INR 2.6 05/24/2018 Pt His3745 Low Intensity - 1.5-2.0 05/24/2018 Pt Eku7664 Mod intensity - 2.0-3.0 05/24/2018 Pt Qod5912 Hi intensity - 3.0-4.0 05/24/2018 Cbc With [...] 29.7 pg 05/24/2018 Cbc With Differential Ord2 [place]% 7.0 % 05/24/2018 Cbc With Differential Ord2 [...] 1.54 K/ul 05/24/2018 Cbc With Differential Ord2 [place] ABS# 0.5 K/ul 05/24/2018 Cbc With Differential Ord2 Eos ABS# 0.4 K/ul 05/24/2018 Cbc With Differential Ord2 Baso ABS# 0.0 K/ul 05/24/2018 Tsh Ord6 TSH (3rd IS) 3.19 uIU/mL 10/06/2017 Free T4 Frk751 FREE T4 1.64 ng/dL 10/06/2017 Free T4 Xzp346 FREE T4 1.03 ng/dL 08/05/2017 Tsh Ord6 [...] Ord30 C/HDL 3.7 Ratio 04/09/2017 Free T4 Txw408 FREE T4 0.97 ng/dL 04/09/2017 Tibc Ord40 Iron 36 ug/dl 04/09/2017 Tibc Ord40 UIBC 281 ug/dL 04/09/2017 Tibc Ord40 TIBC 317 ug/dL 04/09/2017 Tibc Ord40 Fe-%Sat 11.4 % 04/09/2017 Comp Metabolic Svo110 NA 136 mEq/L 04/09/2017 Comp Metabolic Yuo040 K 3.9 mEq/L 04/09/2017 Comp Metabolic Kjc374 CL 98 mEq/L 04/09/2017 Comp Metabolic Qnz566 CO2 28.0 mEq/L 04/09/2017 Comp Metabolic Ccj331 ANION GAP 14 04/09/2017 Comp Metabolic Zms359 GLUCOSE 90 mg/dL 04/09/2017 Comp Metabolic Vok103 Creat 0.6 mg/dL 04/09/2017 Comp Metabolic Gma357 eGFR 102 ml/min/1.73m2 04/09/2017 Comp Metabolic Dxa587 BUN 9 mg/dL 04/09/2017 Comp Metabolic Fst301 B/C Ratio 15.3 Ratio 04/09/2017 Comp Metabolic Syz639 CALCIUM 8.8 mg/dL 04/09/2017 Comp Metabolic Rkt119 ALK PHOS 102 U/L 04/09/2017 Comp Metabolic Idk103 AST(SGOT) 18 U/L 04/09/2017 Comp Metabolic Bit389 ALT(SGPT) 14 U/L 04/09/2017 Comp Metabolic Yaw788 BILI T 0.4 mg/dL 04/09/2017 Comp Metabolic Dkb530 ALBUMIN 3.9 g/dL 04/09/2017 Comp Metabolic Pbz150 TPRO 6.3 g/dL 04/09/2017 Comp Metabolic Wla879 GLOB 2.4 g/dL 04/09/2017 Comp Metabolic Ukw461 A/G Ratio 1.7 Ratio 04/09/2017 Comp Metabolic Yyw541 Osmo 270 mOsmo 04/09/2017 Vitamin D 25 Oh Jdk0832 VITAMIN D, 25 HYDROXY 34.31 ng/mL 04/09/2017 [...] 28.9 pg 04/09/2017 Cbc With Differential Ord2 [place]% 8.8 % 04/09/2017 Cbc With Differential Ord2 [...] 1.22 K/ul 04/09/2017 Cbc With Differential Ord2 [place] ABS# 0.7 K/ul 04/09/2017 Cbc With Differential Ord2 Eos ABS# 0.1 K/ul 04/09/2017 Cbc With Differential Ord2 Baso ABS# 0.0 K/ul 04/09/2017 Urine Culture Ucult Complete >100,000 col/ml aerobic growth sent to ref lab 03/05/2017 Pt Kmv0527 PT 24.2 seconds 04/14/2016 Pt Twp2367 INR 2.3 04/14/2016 Pt Rqp0265 Low Intensity - 1.5-2.0 04/14/2016 Pt Quw0713 Mod intensity - 2.0-3.0 04/14/2016 Pt Suw6659 Hi intensity - 3.0-4.0 04/14/2016 Pt Ewq2743 PT 31.3 seconds 04/10/2016 Pt Lag7957 INR 3.3 04/10/2016 Pt Fwu2913 Low Intensity - 1.5-2.0 04/10/2016 Pt Oij5076 Mod intensity - 2.0-3.0 04/10/2016 Pt Tto4267 Hi intensity - 3.0-4.0 04/10/2016 C RAP A SC [id number] Strep A Negative 04/10/2016 Urine Culture Ucult Complete >100,000 col/ml aerobic growth sent to ref lab 04/04/2016 Comp Metabolic Xqs237 NA 136 mEq/L 04/03/2016 Comp Metabolic Pzm070 K 3.9 mEq/L 04/03/2016 Comp Metabolic Tkm265 CL 99 mEq/L 04/03/2016 Comp Metabolic Iym942 CO2 32.0 mEq/L 04/03/2016 Comp Metabolic Ypg447 ANION GAP 9 04/03/2016 Comp Metabolic Mls549 GLUCOSE 88 mg/dL 04/03/2016 Comp Metabolic Npu576 Creat 0.6 mg/dL 04/03/2016 Comp Metabolic Eqs396 eGFR 93 ml/min/1.73m2 04/03/2016 Comp Metabolic Nyy696 BUN 15 mg/dL 04/03/2016 Comp Metabolic Ptg644 B/C Ratio 23.4 Ratio 04/03/2016 Comp Metabolic Bfg871 CALCIUM 8.7 mg/dL 04/03/2016 Comp Metabolic Qxb943 ALK PHOS 100 U/L 04/03/2016 Comp Metabolic Ooi719 AST(SGOT) 28 U/L 04/03/2016 Comp Metabolic Yox933 ALT(SGPT) 39 U/L 04/03/2016 Comp Metabolic Lrs901 BILI T 0.5 mg/dL 04/03/2016 Comp Metabolic Iuk108 ALBUMIN 4.1 g/dL 04/03/2016 Comp Metabolic Xvp505 TPRO 6.6 g/dL 04/03/2016 Comp Metabolic Rrf738 GLOB 2.5 g/dL 04/03/2016 Comp Metabolic Iya218 A/G Ratio 1.7 Ratio 04/03/2016 Comp Metabolic Azp771 Osmo 272 mOsmo 04/03/2016 Cbc With Differential [...] 29.0 pg 04/03/2016 Cbc With Differential Ord2 [place]% 11.3 % 04/03/2016 Cbc With Differential Ord2 [...] 1.15 K/ul 04/03/2016 Cbc With Differential Ord2 [place] ABS# 0.8 K/ul 04/03/2016 Cbc With Differential Ord2 Eos ABS# 0.2 K/ul 04/03/2016 Cbc With Differential Ord2 Baso ABS# 0.0 K/ul 04/03/2016 Tsh Ord6 hTSH II 3.06 uIU/mL 04/03/2016 Free T4 Rlf046 FREE T4 0.99 ng/dL 04/03/2016 Free T4 Jlg639 FREE T4 0.81 ng/dL 07/31/2015 Comp Metabolic Bsi759 NA 136 mEq/L 07/31/2015 Comp Metabolic Pyi926 K 3.8 mEq/L 07/31/2015 Comp Metabolic Gsb515 CL 97 mEq/L 07/31/2015 Comp Metabolic Bgj801 CO2 29.0 mEq/L 07/31/2015 Comp Metabolic Kdc658 ANION GAP 14 07/31/2015 Comp Metabolic Qnd673 GLUCOSE 90 mg/dL 07/31/2015 Comp Metabolic Mls044 Creat 0.7 mg/dL 07/31/2015 Comp Metabolic Ecn321 eGFR 80 ml/min/1.73m2 07/31/2015 Comp Metabolic Dsw663 BUN 8 mg/dL 07/31/2015 Comp Metabolic Mfp423 B/C Ratio 11.0 Ratio 07/31/2015 Comp Metabolic Ijr674 CALCIUM 8.9 mg/dL 07/31/2015 Comp Metabolic Boh152 ALK PHOS 102 U/L 07/31/2015 Comp Metabolic Yan888 AST(SGOT) 22 U/L 07/31/2015 Comp Metabolic Tgy476 ALT(SGPT) 14 U/L 07/31/2015 Comp Metabolic Bju811 BILI T 0.5 mg/dL 07/31/2015 Comp Metabolic Bcx730 ALBUMIN 4.4 g/dL 07/31/2015 Comp Metabolic Gip071 TPRO 6.7 g/dL 07/31/2015 Comp Metabolic Dfh670 GLOB 2.3 g/dL 07/31/2015 Comp Metabolic Axm721 A/G Ratio 1.9 Ratio 07/31/2015 Comp Metabolic Xry533 Osmo 270 mOsmo 07/31/2015 Tsh Ord6 hTSH [...] Lipid Ord30 C/HDL 4.8 Ratio 07/31/2015 Pt Rex9593 PT 31.9 seconds 07/03/2015 Pt Pvy4510 INR 3.2 07/03/2015 Pt Wel9072 Low Intensity - 1.5-2.0 07/03/2015 Pt Jnn5355 Mod intensity - 2.0-3.0 07/03/2015 Pt Cmg7373 Hi intensity - 3.0-4.0 07/03/2015 Review of Systems System Result Effective Dates Constitutional No recent illness 11/23/2018 Constitutional No [...] sounds 10/12/2017 None Full Exam - General 1995 Lymphatic neck nodes Overall: anterior cervical chain [...] non-tender 04/27/2017 None Full Exam - General 1995 [...] Codes Date URINALYSIS NONAUTO W/O SCOPE CPT-4: 63942 11/01/2018 PPPS, SUBSEQ VISIT CPT- 4: G0439 06/08/2018 URINALYSIS NONAUTO W/O SCOPE CPT-4: 00398 05/25/2018 ADMIN INFLUENZA VIRUS VAC CPT-4: G0008 05/20/2018 FLU VACC PRSV FREE INC ANTIG CPT-4: 40730 05/20/2018 DRAIN/INJECT JOINT/BURSA CPT-4: 72207 03/23/2018 TRIAMCINOLONE ACET INJ NOS CPT-4: J3301 03/23/2018 DRAIN/INJECT JOINT/BURSA CPT-4: 17650 03/12/2018 TRIAMCINOLONE ACET INJ NOS CPT-4: J3301 03/12/2018 ROCEPHIN, PER 250 MG CPT- 4: J0696 02/08/2018 ADMIN INFLUENZA VIRUS VAC CPT-4: G0008 06/18/2017 FLU VACC PRSV FREE INC ANTIG CPT-4: 84512 06/18/2017 URINALYSIS NONAUTO W/O SCOPE CPT-4: 95468 04/27/2017 URINALYSIS NONAUTO W/O SCOPE CPT-4: 41975 2017 DRAIN/INJECT JOINT/BURSA CPT-4: 59602 03/03/2017 TRIAMCINOLONE ACET INJ NOS CPT-4: J3301 03/03/2017 TRIAMCINOLONE ACET INJ NOS CPT-4: J3301 10/06/2016 ROCEPHIN, PER 250 MG CPT- 4: J0696 10/06/2016 THER/PROPH/DIAG INJ SC/IM CPT-4: 72051 10/06/2016 TRIAMCINOLONE ACET INJ NOS CPT-4: J3301 04/28/2016 URINALYSIS NONAUTO W/O SCOPE CPT-4: 18466 04/03/2016 ADMIN INFLUENZA VIRUS VAC CPT-4: G0008 07/03/2015 FLU VACC PRSV FREE INC ANTIG CPT-4: 20362 07/03/2015 Vital Signs Date Vital 11/23/2018 Blood Pressure 1: 134/78 Code: 8480-6 BMI: 27.4 Code: 18383-6 Heart Rate 1: 88 bpm Height: 5'6" Weight: 170 lbs 11/01/2018 Blood Pressure 1: 132/85 Code: 8480-6 BMI: 27.3 Code: 89532-4 Height: 5'6" Weight: 169 lbs 09/30/2018 Blood Pressure 1: 142/80 Code: 8480-6 BMI: 27.3 Code: 67667-5 Heart Rate 1: 84 bpm Height: 5'6" SpO2: 96% Weight: 169 lbs 07/20/2018 Blood Pressure 1: 124/70 Code: 8480-6 Heart Rate 1: 76 bpm Height: SpO2: 95% Weight: 06/29/2018 Blood Pressure 1: 142/80 Code: 8480-6 BMI: 27.8 Code: 97282-2 Heart Rate 1: 89 bpm Height: 5'6" SpO2: 94% Weight: 172 lbs 06/08/2018 Blood Pressure 1: 144/66 Code: 8480-6 BMI: 27.9 Code: 69823-1 Heart Rate 1: 85 bpm Height: 5'6" SpO2: 97% Waist Measure (cm): 97 cm Weight: 173 lbs 05/24/2018 Blood Pressure 1: 128/72 Code: 8480-6 BMI: 27.9 Code: 28677-9 Heart Rate 1: 82 bpm Height: 5'6" SpO2: 92% Weight: 173 lbs 04/06/2018 Blood Pressure 1: 138/88 Code: 8480-6 Heart Rate 1: 86 bpm Height: SpO2: 96% Weight: 03/23/2018 Blood Pressure 1: 150/88 Code: 8480-6 Heart Rate 1: 80 bpm Height: SpO2: 96% Weight: 03/12/2018 Heart Rate 1: 90 bpm Height: Weight: 03/02/2018 Blood Pressure 1: 128/80 Code: 8480-6 BMI: 28.4 Code: 13595-0 Heart Rate 1: 83 bpm Height: 5'6" SpO2: 93% Weight: 176 lbs 02/08/2018 Blood Pressure 1: 142/80 Code: 8480-6 Heart Rate 1: 78 bpm Height: 5'6" SpO2: 94% 12/03/2017 Blood Pressure 1: 124/78 Code: 8480-6 BMI: 27.9 Code: 29746-7 Heart Rate 1: 70 bpm Height: 5'6" SpO2: 97% Weight: 173 lbs 10/27/2017 Blood Pressure 1: 126/60 Code: 8480-6 Heart Rate 1: 65 bpm Height: 5'6" SpO2: 98% Weight: 10/12/2017 Blood Pressure 1: 126/74 Code: 8480-6 BMI: 26.0 Code: 03412-4 Heart Rate 1: 80 bpm Height: 5'6" SpO2: 89% Weight: 161 lbs 10/06/2017 Blood Pressure 1: 126/70 Code: 8480-6 BMI: 27.2 Code: 57340-9 Heart Rate 1: 73 bpm Height: 5'6" SpO2: 97% Weight: 168 lbs 8 oz 08/05/2017 Blood Pressure 1: 152/78 Code: 8480-6 BMI: 27.1 Code: 00762-6 Heart Rate 1: 73 bpm Height: 5'6" SpO2: 98% Weight: 168 lbs 07/06/2017 Blood Pressure 1: 148/70 Code: 8480-6 BMI: 26.6 Code: 56730-7 Heart Rate 1: 80 bpm Height: 5'6" SpO2: 97% Weight: 165 lbs 06/18/2017 Blood Pressure 1: 132/68 Code: 8480-6 BMI: 26.8 Code: 20122-9 Heart Rate 1: 84 bpm Height: 5'6" [...] 1: 162/84 Code: 8480-6 BMI: 28.1 Code: 23658-7 Heart Rate 1: 98 bpm Height: 5'6" SpO2: 97% Weight: 174 lbs 03/03/2017 Blood Pressure 1: 154/88 Code: 8480-6 Heart Rate 1: 96 bpm Height: SpO2: 95% Weight: 01/05/2017 Blood Pressure 1: 142/78 Code: 8480-6 BMI: 28.9 Code: 39908-7 Heart Rate 1: 94 bpm Height: 5'6" SpO2: 95% Weight: 179 lbs 12/19/2016 Blood Pressure 1: 130/74 Code: 8480-6 Heart Rate 1: 91 bpm Height: 5'6" SpO2: 97% Weight: 11/13/2016 Blood Pressure 1: 152/82 Code: 8480-6 BMI: 28.4 Code: 93992-8 Heart Rate 1: 85 bpm Height: 5'6" SpO2: 96% Weight: 176 lbs 10/16/2016 Blood Pressure 1: 148/72 Code: 8480-6 BMI: 28.4 Code: 52709-0 Heart Rate 1: 90 bpm Height: 5'6" SpO2: 96% Weight: 176 lbs 10/06/2016 Blood Pressure 1: 150/80 Code: 8480-6 BMI: 28.4 Code: 01855-7 Heart Rate 1: 76 bpm Height: 5'6" SpO2: 97% Weight: 176 lbs 07/02/2016 Blood Pressure 1: 142/78 Code: 8480-6 BMI: 27.8 Code: 05355-6 Heart Rate 1: 85 bpm Height: 5'6" SpO2: 97% Weight: 172 lbs 05/21/2016 Blood Pressure 1: 166/80 Code: 8480-6 BMI: 27.9 Code: 76254-0 Heart Rate 1: 79 bpm Height: 5'6" SpO2: 98% Weight: 173 lbs 05/07/2016 Blood Pressure 1: 140/70 Code: 8480-6 BMI: 27.9 Code: 36590-4 Heart Rate 1: 82 bpm Height: 5'6" SpO2: 96% Weight: 173 lbs 04/28/2016 Blood Pressure 1: 128/86 Code: 8480-6 BMI: 27.4 Code: 41765-3 Heart Rate 1: 86 bpm Height: 5'6" SpO2: 96% Temperature: 36.1 (C) / 97.0 (F) Weight: 170 lbs 04/07/2016 Blood Pressure 1: 150/80 Code: 8480-6 Heart Rate 1: 94 bpm Height: SpO2: 95% Weight: 04/03/2016 Blood Pressure 1: 122/76 Code: 8480-6 BMI: 27.4 Code: 29590-6 Heart Rate 1: 84 bpm Height: 5'6" SpO2: 94% Weight: 170 lbs 01/31/2016 Blood Pressure 1: 124/82 Code: 8480-6 BMI: 27.8 Code: 97108-0 Heart Rate 1: 100 bpm Height: 5'6" SpO2: 97% Weight: 172 lbs 11/29/2015 Blood Pressure 1: 140/82 Code: 8480-6 Blood Pressure 1: 130/84 Code: 8480-6 BMI: 27.4 Code: 48364-1 Heart Rate 1: 97 bpm Height: 5'6" SpO2: 95% Weight: 170 lbs 10/01/2015 Blood Pressure 1: 130/80 Code: 8480-6 BMI: 27.4 Code: 01128-8 Heart Rate 1: 82 bpm Height: 5'6" SpO2: 97% Weight: 170 lbs 08/30/2015 Blood Pressure 1: 120/68 Code: 8480-6 BMI: 27.6 Code: 35163-3 Heart Rate 1: 91 bpm Height: 5'6" SpO2: 96% Weight: 171 lbs 07/31/2015 Blood Pressure 1: 180/80 Code: 8480-6 BMI: 27.4 Code: 94953-7 Heart Rate 1: 60 bpm Height: 5'6" SpO2: 94% Weight: 170 lbs 07/03/2015 Blood Pressure 1: 154/80 Code: 8480-6 BMI: 27.4 Code: 04138-9 Heart Rate 1: 98 bpm Height: 5'6" SpO2: 95% Weight: 170 lbs 04/10/2015 Blood Pressure 1: 138/72 Code: 8480-6 BMI: 27.8 Code: 35796-8 Heart Rate 1: 82 bpm Height: 5'6" SpO2: 98% Weight: 172 lbs 01/11/2015 Blood Pressure 1: 132/74 Code: 8480-6 BMI: 28.6 Code: 92345-1 Heart Rate 1: 88 bpm Height: 5'6" SpO2: 96% Weight: 177 lbs Functional Status No Functional Status data History of Present Illness Symptom Name Status Result Effective Date Notes Quality chronic 11/23/2018 None Significant Past Medical [...] Codes Date EST. PATIENT, LEVEL III Diagnosis: Chronic systolic (congestive) heart failure[ICD10: I50.22] Diagnosis: Essential (primary) hypertension[ICD10: I10] Diagnosis: Hypoxemia[ICD10: R09.02] Wendi Anaya MD, [facility] CPT-4: 96422 11/23/2018 ([id number]) 35360 EST. PATIENT, LEVEL III Diagnosis: Dysuria[ICD10: R30.0] Diagnosis: Other specified noninflammatory disorders of vagina[ICD10: N89.8] Mimi Anaya MD, [facility] CPT-4: 73325 11/01/2018 ([id number]) 46915 EST. PATIENT, LEVEL IV Diagnosis: Essential (primary) hypertension[ICD10: I10] Diagnosis: Atrophy of thyroid (acquired)[ICD10: E03.4] Carleen Anaya MD, [facility] CPT-4: 59142 09/30/2018 ([id number]) 10688 EST. PATIENT, LEVEL III Diagnosis: Atrophy of thyroid (acquired)[ICD10: E03.4] Diagnosis: Essential (primary) hypertension[ICD10: I10] Carleen Anaya MD, [facility] CPT-4: 38911 07/20/2018 ([id number]) 90866 EST. PATIENT, LEVEL IV Diagnosis: Essential (primary) hypertension[ICD10: I10] Diagnosis: Atrophy of thyroid (acquired)[ICD10: E03.4] Diagnosis: Other fatigue[ICD10: R53.83] Diagnosis: Other insomnia[ICD10: G47.09] Carleen Anaya MD, [facility] CPT-4: 92019 06/29/2018 ([id number]) 85636 EST. 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 PATIENT, LEVEL III Diagnosis: Lumbago with sciatica, right side[ICD10: M54.41] Diagnosis: Sciatica, right side[ICD10: M54.31] Carleen Anaya MD, [facility] CPT- 4: 37346 04/06/2018 ([id number]) 52439 EST. PATIENT, LEVEL III Diagnosis: Lumbago with sciatica, right side[ICD10: M54.41] Diagnosis: Sciatica, right side[ICD10: M54.31] Carleen Anaya MD, [facility] CPT- 4: 83622 03/23/2018 [id number] EST. PATIENT, LEVEL III Diagnosis: Low back pain[ICD10: M54.5] Diagnosis: Sacroiliitis, not elsewhere classified[ICD10: M46.1] Wendi Anaya MD, [facility] CPT-4: 96712 03/12/2018 ([id number]) 11117 EST. PATIENT, LEVEL IV Diagnosis: Atrophy of thyroid (acquired)[ICD10: E03.4] Diagnosis: Essential (primary) hypertension[ICD10: I10] Diagnosis: Urge incontinence[ICD10: N39.41] Carleen Anaya MD, [facility] CPT-4: 24607 03/02/2018 ([id number]) 66145 EST. PATIENT, LEVEL III Diagnosis: Cellulitis of face[ICD10: L03.211] Mimi Anaya MD, [facility] CPT- 4: 72285 02/08/2018 ([id number]) 31683 EST. PATIENT, LEVEL IV Diagnosis: Atrophy of thyroid (acquired)[ICD10: E03.4] Diagnosis: Essential (primary) hypertension[ICD10: I10] Diagnosis: Urge incontinence[ICD10: N39.41] Carleen Anaya MD, [facility] CPT-4: 34546 12/03/2017 35465 EST. PATIENT, LEVEL IV Diagnosis: Essential (primary) hypertension[ICD10: I10] Diagnosis: Weakness[ICD10: R53.1] Diagnosis: Low back pain[ICD10: M54.5] Diagnosis: Other allergic rhinitis[ICD10: J30.89] Wendi Anaya MD, [facility] CPT- 4: 07305 10/27/2017 29920 EST. PATIENT, LEVEL IV Diagnosis: Pneumonia due to other specified bacteria[ICD10: J15.8] Diagnosis: Chronic systolic (congestive) heart failure[ICD10: I50.22] Wendi Anaya MD, [facility] CPT-4: 96320 10/12/2017 ([id number]) 66755 EST. PATIENT, LEVEL IV Diagnosis: Atrophy of thyroid (acquired)[ICD10: E03.4] Diagnosis: Nonscarring hair loss, unspecified[ICD10: L65.9] Diagnosis: Essential (primary) hypertension[ICD10: I10] Carleen Anaya MD, [facility] CPT-4: 55862 10/06/2017 ([id number]) 10633 EST. PATIENT, LEVEL IV Diagnosis: Atrophy of thyroid (acquired)[ICD10: E03.4] Diagnosis: Essential (primary) hypertension[ICD10: I10] Diagnosis: Localized edema[ICD10: R60.0] Carleen Anaya MD, [facility] CPT-4: 61994 08/05/2017 ([id number]) 81362 EST. PATIENT, LEVEL IV Diagnosis: Essential (primary) hypertension[ICD10: I10] Diagnosis: Weakness[ICD10: R53.1] Diagnosis: Other fecal abnormalities[ICD10: R19.5] Carleen Anaya MD, [facility] CPT-4: 54809 07/06/2017 ([id number]) 44418 EST. 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 PATIENT, LEVEL IV Diagnosis: Pain in right shoulder[ICD10: M25.511] Diagnosis: Weakness[ICD10: R53.1] Diagnosis: Other fatigue[ICD10: R53.83] Diagnosis: Other malaise[ICD10: R53.81] Wendi Anaya MD, [facility] CPT-4: 40456 05/11/2017 ([id number]) Miscellaneous no charge Diagnosis: Essential (primary) hypertension[ICD10: I10] Mimi Anaya MD, [facility] CPT-4: 45057 04/30/2017 ([id number]) 10087 EST. PATIENT, LEVEL III Diagnosis: Acute recurrent maxillary sinusitis[ICD10: J01.01] Diagnosis: Urinary tract infection, site not specified[ICD10: N39.0] Mimi Anaya MD, [facility] CPT-4: 22722 04/27/2017 ([id number]) 67415 EST. PATIENT, LEVEL IV Diagnosis: Atrophy of thyroid (acquired)[ICD10: E03.4] Diagnosis: Essential (primary) hypertension[ICD10: I10] Diagnosis: Iron deficiency[ICD10: E61.1] Diagnosis: Other specified heart block[ICD10: I45.5] Carleen Anaya MD, [facility] CPT-4: 15410 04/08/2017 50289 EST. PATIENT, LEVEL III Diagnosis: Low back pain[ICD10: M54.5] Diagnosis: Sacroiliitis, not elsewhere classified[ICD10: M46.1] Wendi Anaya MD, [facility] CPT-4: 18590 03/03/2017 ([id number]) 77699 EST. PATIENT, LEVEL IV Diagnosis: Essential (primary) hypertension[ICD10: I10] Diagnosis: Atrophy of thyroid (acquired)[ICD10: E03.4] Diagnosis: Vascular dementia without behavioral disturbance[ICD10: F01.50] Carleen Anaya MD, [facility] CPT-4: 82955 01/05/2017 69462 EST. PATIENT, LEVEL III Diagnosis: Cervicalgia[ICD10: M54.2] Diagnosis: Other muscle spasm[ICD10: M62.838] Wendi Anaya MD, [facility] CPT-4: 77172 12/19/2016 ([id number]) 29165 EST. PATIENT, LEVEL III Diagnosis: Essential (primary) hypertension[ICD10: I10] Diagnosis: Gastro-esophageal reflux disease without esophagitis[ICD10: K21.9] Carleen Anaya MD [facility] CPT-4: 17100 11/13/2016 ([id number]) 37847 EST. PATIENT, LEVEL III Diagnosis: Pain in right shoulder[ICD10: M25.511] Diagnosis: Insomnia due to medical condition[ICD10: G47.01] Carleen Anaya MD [facility] CPT-4: 88117 10/16/2016 ([id number]) 19150 EST. PATIENT, LEVEL IV Diagnosis: Pneumonia due to other specified bacteria[ICD10: J15.8] Diagnosis: Pain in right shoulder[ICD10: M25.511] Diagnosis: Cough[ICD10: R05] Carleen Anaya MD [facility] CPT-4: 31567 10/06/2016 ([id number]) 93582 EST. PATIENT, LEVEL IV Diagnosis: Essential (primary) hypertension[ICD10: I10] Diagnosis: Personal history of other specified conditions[ICD10: Z87.898] Diagnosis: Unsteadiness on feet[ICD10: R26.81] Carleen Anaya MD [facility] CPT- 4: 91831 07/02/2016 ([id number]) 26897 EST. PATIENT, LEVEL IV Diagnosis: Dysphagia, pharyngeal phase[ICD10: R13.13] Diagnosis: Urge incontinence[ICD10: N39.41] Diagnosis: Gastro-esophageal reflux disease without esophagitis[ICD10: K21.9] Carleen Anaya MD [facility] CPT-4: 20976 05/21/2016 ([id number]) 11057 EST. PATIENT, LEVEL III Diagnosis: Gastro-esophageal reflux disease without esophagitis[ICD10: K21.9] Carleen Anaya MD [facility] CPT-4: 02291 05/07/2016 ([id number]) 10972 EST. PATIENT, LEVEL III Diagnosis: Acute laryngopharyngitis[ICD10: J06.0] Diagnosis: Dysphagia, pharyngeal phase[ICD10: R13.13] Diagnosis: Allergic rhinitis due to pollen[ICD10: J30.1] Mimi Anaya MD [facility] CPT-4: 69626 04/28/2016 ([id number]) Miscellaneous no charge Diagnosis: Acute laryngopharyngitis[ICD10: J06.0] Wendi Anaya MD, [facility] CPT- 4: 66613 04/10/2016 46578 EST. PATIENT, LEVEL IV Diagnosis: Cervicalgia[ICD10: M54.2] Diagnosis: Acute laryngopharyngitis[ICD10: J06.0] Diagnosis: long-term (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 of anticoagulants[ICD10: Z79.01] Diagnosis: Other cystitis without hematuria[ICD10: N30.80] Wendi Anaya MD, [facility] CPT-4: 07578 04/07/2016 ([id number]) 35101 EST. PATIENT, LEVEL IV Diagnosis: Essential (primary) hypertension[ICD10: I10] Diagnosis: Hypothyroidism, unspecified[ICD10: E03.9] Diagnosis: Other fatigue[ICD10: R53.83] Diagnosis: Urge incontinence[ICD10: N39.41] Mimi Anaya MD, [facility] CPT- 4: 88266 04/03/2016 ([id number]) 53970 EST. PATIENT, LEVEL IV Diagnosis: Essential (primary) hypertension[ICD10: I10] Diagnosis: Pain in right ankle and joints of right foot[ICD10: M25.571] Diagnosis: Dizziness and giddiness[ICD10: R42] Diagnosis: Tinnitus, bilateral[ICD10: H93.13] Mimi Anaya MD, [facility] CPT- 4: 37634 01/31/2016 ([id number]) 54030 EST. PATIENT, LEVEL IV Diagnosis: Essential (primary) hypertension[ICD10: I10] Diagnosis: Otalgia, right ear[ICD10: H92.01] Diagnosis: Allergic rhinitis due to pollen[ICD10: J30.1] Diagnosis: Hypothyroidism, unspecified[ICD10: E03.9] Mimi Anaya MD, [facility] CPT-4: 13008 11/29/2015 ([id number]) 03969 EST. PATIENT, LEVEL IV Diagnosis: Essential (primary) hypertension[ICD10: I10] Diagnosis: Urge incontinence[ICD10: N39.41] Diagnosis: Unspecified dementia without behavioral disturbance[ICD10: F03.90] Mimi Anaya MD [facility] CPT-4: 27149 10/01/2015 ([id number]) 06988 EST. PATIENT, LEVEL IV Diagnosis: Essential (primary) hypertension[ICD10: I10] Diagnosis: Hypothyroidism, unspecified[ICD10: E03.9] Diagnosis: Unspecified dementia without behavioral disturbance[ICD10: F03.90] Diagnosis: Urge incontinence[ICD10: N39.41] Mimi Anaya MD [facility] CPT- 4: 54752 08/30/2015 ([id number]) 55854 EST. PATIENT, LEVEL IV Diagnosis: Essential (primary) hypertension[ICD10: I10] Diagnosis: Hypothyroidism, unspecified[ICD10: E03.9] Diagnosis: Hyperlipidemia, unspecified[ICD10: E78.5] Carleen Anaya MD [facility] CPT-4: 25593 07/31/2015 ([id number]) 79310 EST. 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 PATIENT, LEVEL IV Diagnosis: ESSENTIAL HYPERTENSION[ICD9: 401.9] Diagnosis: MACULAR DEGENERATION[ICD9: 362.50] Diagnosis: Peripheral vascular disease[ICD9: 443.9] Diagnosis: Neuropathy[ICD9: 355.9] Carleen Anaya MD [facility] CPT-4: 92055 04/10/2015 ([id number]) OFFICE/OUTPATIENT VISIT NEW Diagnosis: ESSENTIAL HYPERTENSION[ICD9: 401.9] Diagnosis: HYPOTHYROIDISM[ICD9: 244.9] Diagnosis: URGE INCONTINENCE[ICD9: 788.31] Diagnosis: Constipation - functional[ICD9: 564.09] Carleen Anaya MD, [facility] CPT-4: 37321 01/11/2015 Plan of Care Planned Activity Notes [...] portable O2. 11/23/2018 Appointment: Wendi Uriostegui WPtel: [phone] [facility] (30 min) Complex 11/23/2018 Patient Education: Patient Medication Summary Completed 11/23/2018 Visit Plan: Possible vaginal bleeding -patient has a history of total hysterectomy -no obvious bleeding today upon inspection -will culture urine -monitor symptoms and call if bleeding persists or worsens. 11/01/2018 Appointment: [phone] [place] (30 min) Complex 11/01/2018 Patient Education: [...] of control. 09/30/2018 Appointment: Carleen Anaya WPtel: [phone] [facility] (15 min) Moderate 09/30/2018 Patient Education: Patient Medication Summary Completed 09/30/2018 [facility]ment[phone] [place] ([facility] min) Moderate 09/22/2018 Visit Plan: [...] home. 07/20/2018 Appointment: [phone] ([facility] min) Moderate 07/20/2018 Patient Education: Patient [...] this time. 06/29/2018 Appointment: [phone] [place] (15 min) Moderate 06/29/2018 Patient Education: [...] care surrogate. 06/08/2018 Appointment: Mimi Espinosa WPtel: [address] [place] [address] - Annual Wellness Visit 06/08/2018 Patient Education: [...] edema. Weakness-fatigue- check labs Dysuria- check UA EOJ-tkoyczvgpe-ab changes in medications 05/24/2018 Appointment: Mimi Espinosa WPtel: [address] [place] [address] (15 min) Moderate 05/24/2018 Patient Education: Patient Medication Summary Completed 05/24/2018 Appointment: Injection 05/20/2018 Patient Education: Patient Medication Summary Completed 05/20/2018 Visit Plan: Sciatica- pt to continue with aleve twice daily and cyclobenzaprine x 1 week. Pt is to call if the symptoms do not improve or if they worsen. referral to [facility] physical therapy. 04/06/2018 Appointment: Carleen Anaya WPtel: [address] [place] [address] (15 min) Moderate 04/06/2018 Patient Education: Patient [...] do not improve or if they worsen. [id number] - andrew 03/23/2018 Appointment: Carleen Anaya WPtel: [phone] [facility] [...] of injection. 03/12/2018 Appointment: Wendi Uriostegui WPtel: [phone] [phone] [place] (30 min) Complex 03/12/2018 Patient Education: Patient [...] with myrbetric 03/02/2018 Appointment: Carleen Anaya WPtel: [phone] [phone] [place] (15 min) Moderate 03/02/2018 Patient Education: Patient Medication Summary Completed 03/02/2018 Appointment: (10 min) Simple 02/09/2018 Visit Plan: Cellulitis - start oral antibiotics as directed, return to clinic as directed, call for acute change in symptoms, worsening redness, warmth, discharge. 02/08/2018 Appointment: Mimi Espinosa WPtel: [facility] [place] [phone] (15 min) Moderate 02/08/2018 Patient Education: Patient [...] 50mg daily. 12/03/2017 Appointment: Carleen Anaya WPtel: [facility] (15 min) Moderate 12/03/2017 Patient Education: Patient [...] allergy spray. 10/27/2017 Appointment: Wendi Uriostegui WPtel: [phone] [place] (15 min) Moderate 10/27/2017 Patient Education: Patient Medication Summary Completed 10/27/2017 Visit Plan: Pneumonia - Pt has been diagnosed with pneumonia by physical exam. A chest xray has been ordered as have antibiotics. The pt is aware of the diagnosis and the need for acute treatment of this illness. 10/12/2017 Appointment: [phone] [place] (15 min) Moderate 10/12/2017 Patient Education: [...] today. 10/06/2017 App[facility]ment[phone] [place] (15 min) Moderate 10/06/2017 Patient Education: [...] prn. 08/05/2017 Appointment: [phone] (15 min) Moderate 08/05/2017 Patient Education: Patient Medication Summary Completed 08/05/2017 Appointment: Carleen Anaya WPtel: [phone] [facility] (15 min) Moderate 07/14/2017 Visit Plan: Hypertension [...] voltaren gel. 07/06/2017 Appointment: Carleen Anaya WPtel: [facility]9 [facility] (15 min) Moderate 07/06/2017 Patient Education: Patient [...] shot today 06/18/2017 Appointment: [phone] (15 min) Moderate 06/18/2017 Patient Education: Patient Medication Summary Completed 06/18/2017 Appointment: Nurse Visit 05/12/2017 Care Plan: X-RAY EXAM OF SHOULDER LOINC : 92399-3 Pending 05/12/2017 Visit Plan: Weakness, fatigue, malaise - Discussed with Dr. 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 Pt is to follow up with her oncologist. Right shoulder pain after fall - will send for X-ray - The pt is to use prn antiinflammatories to manage acute pain. The patient is to call the office if the pain is worsening or does not improve. 05/11/2017 Appointment: Wendi Uriostegui [facility]el[phone] [facility] [place] (30 min) Complex 05/11/2017 Patient [...] of plan. 04/27/2017 Appointment: Mimi Espinosa [facility]Ptel: [phone] [facility] [place] (15 min) Moderate 04/27/2017 Patient [...] heart beat - recommended evaluation by her Radio Host - Dr. Butler - I attempted a phone call to the office of Dr. Butler, I had to leave a message on the answering machine. If i don't hear back from Dr. Butler's office, we will need to do a Holter monitor on patient. 04/08/2017 Appointment: [phone] (15 min) Moderate 04/08/2017 Patient Education: Patient Medication Summary Completed 04/08/2017 Care Plan: Referral Order SNOMED-CT : [id number] Pending 04/08/2017 Visit Plan: UTI - pt [...] injection. 03/03/2017 Appointment: Wendi Uriostegui [facility]Ptel: [phone] [facility] (30 min) Complex 03/03/2017 Patient Education: [...] previous levels of control. 01/05/2017 Appointment: Carleen nAaya WPtel: [facility]8 [facility] (15 min) Moderate 01/05/2017 Patient Education: Patient Medication Summary Completed 01/05/2017 Visit Plan: Neck Pain- pt to start with aspercreme or biofreeze to neck three times daily and start neck exercises daily. Will send RX - The patient is to call the office if the pain is worsening or does not improve. 12/19/2016 Appointment: Wendi Uriostegui WPtel: [facility]8 [facility] (30 min) Complex 12/19/2016 Patient Education: Patient [...] not improving. 11/13/2016 Appointment: Carleen Anaya WPtel: [facility]1 [facility] (15 min) Moderate 11/13/2016 Patient Education: Patient Medication Summary Completed 11/13/2016 Visit Plan: Insomnia -extended release melatonin - you can take up to 10mg of melatonin sleepy time tea - - use warm milk in the tea. Right shoulder - pt to continue with therapy, anti-inflammatory 10/16/2016 Appointment: Carleen Anaya WPtel: [facility] (15 min) [...] with pt. 10/06/2016 Appointment: Carleen Anaya WPtel: [facility]5 [facility] (15 min) Moderate 10/06/2016 Patient Education: Patient Medication Summary Completed 10/06/2016 Care Plan: X-RAY EXAM OF SHOULDER LOINC : 10365-5 Pending 10/06/2016 Appointment: Carleen Anaya WPtel: [facility]5 [facility] (30 min) Complex 10/01/2016 Referral: [facility] WPtel: [phone] Patient informed. Completed 07/08/2016 Visit Plan: [...] discussed therapy. 07/02/2016 Appointment: Carleen Anaya WPtel: [facility]5 [facility]66[facility] (15 min) Moderate 07/02/2016 Patient Education: Patient Medication Summary Completed 07/02/2016 Care Plan: Referral Order SNOMED-CT : [id number] Pending 07/02/2016 Visit Plan: Hypertension - well [...] planning on getting a flu shot at [facility] and she is due for another pneumovax- last pneumovax was in 2008 - so she can have pneumovax now and the prevnar in 2017 05/21/2016 Appointment: Carleen Anaya WPtel: [address] [place] [address] (15 min) Moderate 05/21/2016 Patient Education: Patient Medication Summary Completed 05/21/2016 Referral: Medardo Del Real [address] Referral Completed 05/12/2016 Visit Plan: [...] times daily 05/07/2016 Appointment: Carleen Anaya WPtel: [address] [place] [address] (15 min) Moderate 05/07/2016 Patient Education: Patient Medication Summary Completed 05/07/2016 Appointment: Mimi Espinosa WPtel: [address] [place], [place] [phone] (30 min) Complex 05/01/2016 Visit Plan: Allergies [...] Kenalog injection today in the office Sore gyjgir-vciuigrnj-vcmby dexilant-refer to Dr Del Real for evaluation 04/28/2016 Appointment: Mimi Espinosa WPtel: [address] [place], [place] [id number] (30 min) Complex 04/28/2016 Patient Education: Patient [...] medication switched. 04/07/2016 Appointment: Wendi Uriostegui WPtel: [facility]4 [facility] (30 min) Complex 04/07/2016 Patient Education: [...] atigue-check labs including UA-culture if positive Urge czylfkhgwoeb-abfxnwrim-yptjg UA with C&S 04/03/2016 Appointment: Mimi Espinosa WPtel: [phone] [phone] [place] (30 min) Complex 04/03/2016 Patient Education: Patient Medication Summary Completed 04/03/2016 Visit Plan: Hypertension - well controlled - continue with current medications, continue with no added salt diet. Pt has been encouraged to exercise daily. The pt has been advised to call the office if there are any acute concerns about change in blood pressure readings at home. Ckbfgtyfx-ptksqvrs-yyhzufit MRI brain Right ankle dmpw-vnttomg-csrh right ankle- plan to refer to physical therapy if appropriate 01/31/2016 Appointment: Mimi Espinosa WPtel: [phone] [phone] [place] (30 min) Complex 01/31/2016 Patient Education: [...] medications. 07/31/2015 Appointment: [facility]el: [phone] (15 min) Moderate 07/31/2015 Patient Education: Patient Medication Summary Completed 07/31/2015 Patient Education: Hypertension Completed 07/31/2015 Care Plan: Referral Order SNOMED-CT : [id number] Ordered 07/31/2015 Visit Plan: Hypertension - uncontrolled [...] on Nortryptyline 07/03/2015 Appointment: [facility]el: [phone] (15 min) Moderate 07/03/2015 Patient Education: Patient [...] Completed 01/11/2015 Referral: [facility] WPtel: [facility]4 [place] [id number] Referral Appointment Requested Referral: External, Ordering Provider Referral Appointment Requested Referral: External, Ordering Provider Referral Relationship Referral: Medardo Del Real [address] Referral Appointment Requested Instructions Comment Flonase 1 [...] planning on getting a flu shot at [facility] and she is due for another [...] heart beat - recommended evaluation by her Radio Host - Dr. Butler - I attempted a [...] Kenalog injection today in the office Sore wzbimu-ehuirmnny-eqzsl dexilant-refer to Dr Del Real for evaluation [...] Fatigue-check labs including UA-culture if positive Urge eikjkeoxyacp-edvovcdgt-yryqj UA with C&S add z-pack, continue cefdinir [...] edema. Weakness-fatigue- check labs Dysuria- check UA SEM-hvfpuflaol-mt changes in medications . Hypertension - well controlled - continue with current medications, continue with no added salt diet. Pt has been encouraged to exercise daily. The pt has been advised to call the office if there are any acute concerns about change in blood pressure readings at home. Qrohxrjvu-uipbidkc-xfakdtxi MRI brain Right ankle jlea-yzcexhc-kuaa right ankle-plan to refer to physical therapy [...] Monitor symptoms - continue with myrbetric . Hypothyroidism - pt with chronic hypothyroidism, [...] or if they worsen. referral to [facility] physical therapy. . Hypertension - well controlled [...] do not improve or if they worsen. [id number] - kenalog Stop Oxybutynin chloride ER. Start [...] is to keep her appointment with her tuber machine operator for her ECHO and Carotid US. Pt [...]
--- OUTSIDE RECORDS SUMMARY | 2019-01-01 11:57 | XMS REPORT | CCD ---
Author Author [facility] Organization [facility] Address [address] [place] [address] Phone Care Team Providers Care Retail Loan Officer Name Role Phone PP Unavailable CCM Unavailable Summary Purpose Interface Exchange Insurance Providers Payer name Policy type / Coverage type Covered green party ID Effective Begin Date Effective End Date WPS Medicare Part B Medicare Part B [id number] Unknown Unknown [facility] Medicare Part B [id number] Unknown Unknown Family history Father Diagnosis Age At Onset Cancer Unknown Arthritis Unknown Mother Diagnosis Age At Onset Breast cancer Unknown Arthritis Unknown Social History Social History Element Codes Description Effective Dates Alcohol history Unknown occasionally drinks alcohol 06/08/2018 Frequency of drinks SNOMED CT: 823900268 Drinks rarely 06/08/2018 Marital status Unknown 01/11/2015 Number of children Unknown 3 01/11/2015 Employment Unknown Retired 01/11/[address]: 9063085 Quit over 10 years ago 1950 01/11/[address]: 284530691 Never drinks alcohol 01/11/2015 Allergies, Adverse Reactions, Alerts Substance Reaction Codes Entered Date Inactivated Date Status * OTHER REACTION - SEE ANSWER BOX vancogein red Unknown 01/11/2015 No Inactive Date Active CODEINE RxNorm: 2670 01/11/2015 No Inactive Date Active demerol RxNorm: 924128 08/30/2015 No Inactive Date Active hydrocodone Unknown [...] ICD-9: 782.3 ICD-10: R60.0 Active 08/05/2017 Unknown 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 ICD-9: V58.61 ICD-10: [...] edema ICD-9: 782.3 ICD-10: R60.0 08/05/2017 Active 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 ICD-9: V58.61 ICD-10: [...] Fill Instructions Synthroid 175 mcg tablet RxNorm: 998828 1 Tablet(s) PO daily 09/30/2018 02/26/2019 Active this is an update on the dose - she is to take this daily - hold off on the 200mcg pills for now Synthroid 175 mcg tablet RxNorm: 654575 1 Tablet(s) PO 5 times weekly 09/30/2018 09/29/2018 Inactive alternate with 175mcg order losartan 25 mg tablet RxNorm: 248697 TAKE 1 TABLET BY MOUTH ONCE DAILY 08/30/2018 No Stop Date Active Myrbetriq 50 mg tablet,extended release RxNorm: 1382810 1 Tablet(s) PO daily 08/24/2018 12/21/2018 Active Synthroid 175 mcg tablet RxNorm: 352326 1 Tablet(s) PO 4 times a week Thu sun 07/20/2018 09/29/2018 Inactive alternate with 175mcg order Synthroid 200 mcg tablet RxNorm: 125797 Tablet(s) TAKE ONE TABLET BY MOUTH ON THURSDAY, Thursday07/20/2018 09/29/2018 Inactive pantoprazole 40 mg tablet,delayed release RxNorm: 076958 TAKE ONE TABLET BY MOUTH TWICE DAILY 07/19/2018 No Stop Date Active furosemide 40 mg tablet RxNorm: 555387 1 Tablet(s) PO 2 times weekly with song butler 07/13/2018 No Stop Date Active Synthroid 200 mcg tablet RxNorm: 972969 TAKE ONE TABLET BY MOUTH ON THURSDAY, THURSDAY, AND Thursday07/13/2018 07/19/2018 Inactive Vitamin D3 400 unit capsule RxNorm: 275644 1 Capsule(s) PO daily 06/17/2018 No Stop Date Active Aspirin Low Dose 81 mg tablet,delayed release RxNorm: 664805 1 Tablet(s) PO BIW on Thursday and Thursday06/17/2018 No Stop Date Active biotin 1,000 mcg chewable tablet RxNorm: 6798374 1 Tablet(s) PO daily 06/17/2018 No Stop Date Active Vitamin B-12 500 mcg tablet RxNorm: 608257 1 Tablet(s) PO daily 06/17/2018 No Stop Date Active Colace 100 mg capsule RxNorm: 9234460 1 Capsule(s) PO QHS 06/08/2018 No Stop Date Active Coumadin 3 mg tablet RxNorm: 132355 1 Tablet(s) PO daily x5 days and 2 mg x2 days -Managed by Dr. Bowman 06/08/2018 No Stop Date Active Keflex 500 mg capsule RxNorm: 229857 1 Capsule(s) PO TID 05/25/2018 05/31/2018 Inactive metoprolol succinate ER 100 mg tablet,extended release 24 hr RxNorm: 096754 Tablet(s) TAKE ONE TABLET BY MOUTH ONCE DAILY 05/19/2018 No Stop Date Active Coumadin 3 mg tablet RxNorm: 795097 1 Tablet(s) PO daily -Managed by Dr. Bowman 05/04/2018 06/07/2018 Inactive Synthroid 175 mcg tablet RxNorm: 007769 TAKE 1 TABLET BY MOUTH ONCE DAILY 04/06/2018 06/07/2018 Inactive cyclobenzaprine 5 mg tablet RxNorm: 084987 1/2 Tablet(s) PO TID 04/06/2018 04/15/2018 Inactive Synthroid 200 mcg tablet RxNorm: 773394 1 Tablet(s) PO TIW [facility] 04/05/2018 07/12/2018 Inactive brand name only- Alternate with 175mcg dose schedule Synthroid 175 mcg tablet RxNorm: 446621 1 Tablet(s) PO 4 times a week Thu04/05/2018 07/19/2018 Inactive alternate with 175mcg order cyclobenzaprine 5 mg tablet RxNorm: 614516 1/2 Tablet(s) PO TID 03/23/2018 04/01/2018 Inactive tramadol 50 mg tablet RxNorm: 319255 1 Tablet(s) PO TID as needed 03/17/2018 No Stop Date Active Kenalog 40 mg/mL suspension for injection RxNorm: 9519474 2 Milliliter(s) Inj 03/12/2018 03/12/2018 Inactive prednisone 20 mg tablet RxNorm: 576717 2 Tablet(s) PO daily 03/11/2018 03/10/2018 Inactive prednisone 20 mg tablet RxNorm: 379569 2 Tablet(s) PO daily 03/11/2018 03/15/2018 Inactive losartan 25 mg tablet RxNorm: 144528 TAKE ONE TABLET BY MOUTH ONCE DAILY 02/16/2018 08/29/2018 Inactive doxycycline hyclate 100 mg tablet RxNorm: 5222932 1 Tablet(s) PO BID 02/08/2018 02/14/2018 Inactive ceftriaxone 500 mg solution for injection RxNorm: 4100668 Inj 02/08/2018 02/08/2018 Inactive dapsone 25 mg tablet RxNorm: 805260 2 Tablet(s) PO daily 02/08/2018 02/12/2018 Inactive metoprolol succinate ER 100 mg tablet,extended release 24 hr RxNorm: 847678 TAKE ONE TABLET BY MOUTH ONCE DAILY 01/05/2018 05/18/2018 Inactive Synthroid 175 mcg tablet RxNorm: 428345 1 Tablet(s) PO daily 01/01/2018 03/31/2018 Inactive Synthroid 175 mcg tablet RxNorm: 054482 1 Tablet(s) PO daily 01/01/2018 12/31/2017 Inactive Myrbetriq 50 mg tablet,extended release RxNorm: 1761595 1 Tablet(s) PO daily 12/03/2017 01/01/2018 Inactive Zithromax Z-Oliver 250 mg tablet RxNorm: 846866 1 Tablet(s) PO UD 10/12/2017 10/16/2017 Inactive Tessalon Perles 100 mg capsule RxNorm: 474364 2 Capsule(s) PO TID as needed 10/12/2017 10/16/2017 Inactive prednisone 20 mg tablet RxNorm: 549766 2 Tablet(s) PO daily 10/12/2017 10/16/2017 Inactive cefdinir 300 mg capsule RxNorm: 203705 1 Capsule(s) PO BID 10/08/2017 10/07/2017 Inactive Synthroid 150 mcg tablet RxNorm: 983757 1 Tablet(s) PO daily in morning, except 1/2 Tablet PO Thu, Sat, take 30 minutes before meal 10/08/2017 04/04/2018 Inactive brand name only cefdinir 300 mg capsule RxNorm: 708079 1 Capsule(s) PO BID 10/08/2017 10/14/2017 Inactive Synthroid 150 mcg tablet RxNorm: 355206 1 Tablet(s) PO daily in morning, take 30 minutes before meal 10/06/2017 10/07/2017 Inactive brand name only cefdinir 300 mg capsule RxNorm: 128003 1 Capsule(s) PO BID 08/24/2017 08/30/2017 Inactive Zithromax Z-Oliver 250 mg tablet RxNorm: 365998 1 Tablet(s) PO UD 08/20/2017 08/19/2017 Inactive Zithromax Z-Oliver 250 mg tablet RxNorm: 040061 1 Tablet(s) PO UD 08/20/2017 08/24/2017 Inactive Synthroid 150 mcg tablet RxNorm: 412674 1 Tablet(s) PO daily in morning, take 30 minutes before meal 08/05/2017 08/04/2017 Inactive Synthroid 150 mcg tablet RxNorm: 045084 1 Tablet(s) PO daily in morning, take 30 minutes before meal 08/05/2017 10/05/2017 Inactive Coumadin 3 mg tablet RxNorm: 164614 1 Tablet(s) PO Thursday, , , and Sat- Managed by Dr. Bowman -Managed by Dr. Bowman 08/05/2017 05/03/2018 Inactive pantoprazole 40 mg tablet,delayed release RxNorm: 605094 1 Tablet(s) PO BID 07/08/2017 07/02/2018 Inactive pantoprazole 40 mg tablet,delayed release RxNorm: 266813 1 Tablet(s) PO BID 07/08/2017 07/07/2017 Inactive metoprolol succinate ER 100 mg tablet,extended release 24 hr RxNorm: 504772 TAKE ONE TABLET BY MOUTH ONCE DAILY 07/08/2017 01/04/2018 Inactive Coumadin 3 mg tablet RxNorm: 363990 1 Tablet(s) PO QPM -Managed by Dr. Bowman 07/06/2017 08/04/2017 Inactive Coumadin 3 mg tablet RxNorm: 726987 1 Tablet(s) PO QPM at 6:00pm Managed by Dr Bowman 1/2 pill on thursday and thursday, full pill other days 06/18/2017 07/05/2017 Inactive Voltaren 1 % topical gel RxNorm: 654958 2 TOP QID 06/18/2017 10/15/2017 Inactive Micro-K 10 10 mEq capsule,extended release RxNorm: 225022 1 Capsule(s) PO daily 05/08/2017 12/02/2017 Inactive Synthroid 137 mcg tablet RxNorm: 274570 1 Tablet(s) PO QAM 05/08/2017 08/04/2017 Inactive Dose increased 04/14/17 pravastatin 10 mg tablet RxNorm: 884478 1 Tablet(s) PO daily TAKE ONE TABLET BY MOUTH ONCE DAILY 05/08/2017 12/02/2017 Inactive losartan 25 mg tablet RxNorm: 305522 1 Tablet(s) PO daily TAKE ONE TABLET BY MOUTH ONCE DAILY 05/08/2017 06/07/2018 Inactive Namenda 10 mg tablet RxNorm: 498824 TAKE ONE TABLET BY MOUTH TWICE DAILY 05/07/2017 12/02/2017 Inactive Keflex 500 mg capsule RxNorm: 586265 1 Capsule(s) PO TID 04/27/2017 05/03/2017 Inactive Synthroid 137 mcg tablet RxNorm: 354586 1 Tablet(s) PO QAM 04/14/2017 04/13/2017 Inactive Vitamin D2 50,000 unit capsule RxNorm: 809569 1 Capsule(s) PO QW 04/14/2017 12/02/2017 Inactive Synthroid 137 mcg tablet RxNorm: 695305 1 Tablet(s) PO QAM 04/14/2017 05/07/2017 Inactive losartan 25 mg tablet RxNorm: 627476 TAKE ONE TABLET BY MOUTH ONCE DAILY 03/23/2017 05/07/2017 Inactive Synthroid 125 mcg tablet RxNorm: 824686 TAKE ONE TABLET BY MOUTH ONCE DAILY 03/12/2017 04/12/2017 Inactive ciprofloxacin 500 mg tablet RxNorm: 481860 1 Tablet(s) PO BID 2017 03/13/2017 Inactive prednisone 20 mg tablet RxNorm: 824613 2 Tablet(s) PO daily 03/03/2017 03/07/2017 Inactive tramadol 50 mg tablet RxNorm: 232022 1/2 Tablet(s) PO TID as needed 03/03/2017 12/02/2017 Inactive pravastatin 10 mg tablet RxNorm: 421380 TAKE ONE TABLET BY MOUTH ONCE DAILY 01/19/2017 05/07/2017 Inactive nortriptyline 10 mg capsule RxNorm: 289583 TAKE ONE CAPSULE BY MOUTH ONCE DAILY IN THE EVENING 01/14/2017 12/02/2017 Inactive Voltaren 1 % topical gel RxNorm: 953633 TOP QID 12/22/2016 02/19/2017 Inactive Voltaren 1 % topical gel RxNorm: 279441 TOP QID 12/22/2016 12/21/2016 Inactive prednisone 20 mg tablet RxNorm: 013094 2 Tablet(s) PO daily 12/19/2016 12/23/2016 Inactive cyclobenzaprine 5 mg tablet RxNorm: 689305 1/2 Tablet(s) PO BID as needed 12/19/2016 12/23/2016 Inactive Flector 1.3 % transdermal 12 hour patch RxNorm: 130441 1 Patch TOP every 12 hours as needed 12/19/2016 12/02/2017 Inactive losartan 25 mg tablet RxNorm: 640141 1 Tablet(s) PO daily TAKE ONE TABLET BY MOUTH ONCE DAILY 11/13/2016 03/22/2017 Inactive Namenda 10 mg tablet RxNorm: 686249 TAKE ONE TABLET BY MOUTH TWICE DAILY 10/28/2016 04/25/2017 Inactive nortriptyline 10 mg capsule RxNorm: 895574 TAKE ONE CAPSULE BY MOUTH ONCE DAILY IN THE EVENING 10/13/2016 01/10/2017 Inactive ceftriaxone 500 mg solution for injection RxNorm: 7965052 Inj 10/06/2016 10/06/2016 Inactive cefdinir 300 mg capsule RxNorm: 280843 1 Capsule(s) PO BID 10/06/2016 10/12/2016 Inactive prednisone 20 mg tablet RxNorm: 877041 2 Tablet(s) PO daily 10/06/2016 10/08/2016 Inactive ProAir RespiClick 90 mcg/actuation breath activated RxNorm: 8802360 2 INH TID x 3 days then one inhale tid x 3 days then prn shortness of breath 10/06/2016 11/04/2016 Inactive Kenalog 40 mg/mL suspension for injection RxNorm: 9193514 1 Milliliter(s) Inj 10/06/2016 10/06/2016 Inactive Myrbetriq 50 mg tablet,extended release RxNorm: 0289975 1 Tablet(s) PO daily 09/11/2016 11/12/2016 Inactive Namenda 10 mg tablet RxNorm: 842611 TAKE ONE TABLET BY MOUTH TWICE DAILY 07/25/2016 10/22/2016 Inactive hydrochlorothiazide 25 mg tablet RxNorm: 357661 1 Tablet(s) PO daily 07/25/2016 12/02/2017 Inactive Synthroid 125 mcg tablet RxNorm: 260036 TAKE ONE TABLET BY MOUTH ONCE DAILY 07/14/2016 03/10/2017 Inactive losartan 25 mg tablet RxNorm: 543782 TAKE ONE TABLET BY MOUTH ONCE DAILY 07/07/2016 11/12/2016 Inactive metoprolol succinate ER 100 mg tablet,extended release 24 hr RxNorm: 952771 1 Tablet(s) PO daily 06/16/2016 06/10/2017 Inactive nortriptyline 10 mg capsule RxNorm: 627649 Capsule(s) TAKE ONE CAPSULE BY MOUTH ONCE DAILY IN THE EVENING 06/09/2016 10/06/2016 Inactive Myrbetriq 50 mg tablet,extended release RxNorm: 6195553 1 Tablet(s) PO daily 05/21/2016 09/10/2016 Inactive doxycycline hyclate 100 mg tablet RxNorm: 802674 1 Tablet(s) PO BID 05/07/2016 05/13/2016 Inactive Carafate 100 mg/mL oral suspension RxNorm: 458457 10 Milliliter(s) PO QID 05/07/2016 12/02/2017 Inactive Kenalog 40 mg/mL suspension for injection RxNorm: 6073156 Milliliter(s) Inj 04/28/2016 04/28/2016 Inactive losartan 25 mg tablet RxNorm: 646361 TAKE ONE TABLET BY MOUTH ONCE DAILY 04/08/2016 07/06/2016 Inactive ciprofloxacin 500 mg tablet RxNorm: 785067 1 Tablet(s) PO BID 04/07/2016 04/13/2016 Inactive cyclobenzaprine 5 mg tablet RxNorm: 425195 1 Tablet(s) PO TID 04/07/2016 04/16/2016 Inactive Keflex 500 mg capsule RxNorm: 546107 1 Capsule(s) PO TID 04/03/2016 04/02/2016 Inactive Keflex 500 mg capsule RxNorm: 099797 1 Capsule(s) PO TID 04/03/2016 04/09/2016 Inactive losartan 25 mg tablet RxNorm: 586075 TAKE ONE TABLET BY MOUTH ONCE DAILY 03/06/2016 04/07/2016 Inactive nortriptyline 10 mg capsule RxNorm: 565357 TAKE ONE CAPSULE BY MOUTH ONCE DAILY IN THE EVENING 03/06/2016 06/03/2016 Inactive pravastatin 10 mg tablet RxNorm: 782669 TAKE ONE TABLET BY MOUTH ONCE DAILY 02/04/2016 01/18/2017 Inactive warfarin 4 mg tablet RxNorm: 857676 Tablet(s) PO q d except 5mg on tue 01/31/2016 06/17/2017 Inactive Myrbetriq 50 mg tablet,extended release RxNorm: 0557246 1 Tablet(s) PO daily 01/17/2016 05/15/2016 Inactive Namenda 10 mg tablet RxNorm: 243347 1 Tablet(s) PO BID 01/01/2016 06/28/2016 Inactive Myrbetriq 50 mg tablet,extended release RxNorm: 2069463 1 Tablet(s) PO daily 12/20/2015 12/20/2015 Inactive Synthroid 125 mcg tablet RxNorm: 423686 1 Tablet(s) PO daily 11/14/2015 07/10/2016 Inactive nortriptyline 10 mg capsule RxNorm: 891945 TAKE ONE CAPSULE BY MOUTH ONCE DAILY IN THE EVENING 11/05/2015 03/03/2016 Inactive Myrbetriq 50 mg tablet,extended release RxNorm: 9695301 1 Tablet(s) PO daily 10/01/2015 12/19/2015 Inactive Namenda 10 mg tablet RxNorm: 172768 1 Tablet(s) PO BID 08/30/2015 12/31/2015 Inactive Vesicare 10 mg tablet RxNorm: 629317 1 Tablet(s) PO daily 08/30/2015 09/30/2015 Inactive warfarin 4 mg tablet RxNorm: 510362 Tablet(s) PO 08/30/2015 01/30/2016 Inactive Synthroid 125 mcg tablet RxNorm: 734810 1 Tablet(s) PO daily 08/02/2015 11/13/2015 Inactive Synthroid 125 mcg tablet RxNorm: 623864 Tablet(s) PO 08/01/2015 08/01/2015 Inactive losartan 25 mg tablet RxNorm: 941933 1 Tablet(s) PO daily 07/31/2015 02/25/2016 Inactive pravastatin 10 mg tablet RxNorm: 953302 1 Tablet(s) PO daily 07/23/2015 01/18/2016 Inactive hydrochlorothiazide 25 mg tablet RxNorm: 635425 1 Tablet(s) PO daily 07/19/2015 07/12/2016 Inactive nortriptyline 10 mg capsule RxNorm: 749185 1 Capsule(s) PO QPM 07/03/2015 10/30/2015 Inactive metoprolol succinate ER 100 mg tablet,extended release 24 hr RxNorm: 137700 1 Tablet(s) PO daily 06/06/2015 05/30/2016 Inactive pravastatin 10 mg tablet RxNorm: 323440 1 Tablet(s) PO daily 01/22/2015 07/20/2015 Inactive aspirin 81 mg capsule,delayed release RxNorm: 598788 1 Capsule(s) PO daily 01/11/2015 02/09/2015 Inactive Fosamax 5 mg tablet RxNorm: 670922 1 Tablet(s) QW 01/11/2015 12/02/2017 Inactive oxybutynin chloride ER 10 mg tablet,extended release 24 hr RxNorm: 226500 1 Tablet(s) PO daily 01/11/2015 08/29/2015 Inactive Fosamax 70 mg tablet RxNorm: 327952 1 Tablet(s) PO QW No Start Date Active Claritin oral RxNorm: 63287 oral No Start Date Active Centrum oral RxNorm: oral No Start Date Active Calcium 600 + D(3) oral RxNorm: 430531 oral No Start Date Active Coumadin 4 mg tablet RxNorm: 958900 1 Tablet(s) PO daily on M,W,F No Start Date 06/07/2018 Inactive Vitamin D3 oral RxNorm: oral No Start Date 06/16/2018 Inactive pravastatin 10 mg tablet RxNorm: 753802 1 Tablet(s) PO daily No Start Date 01/21/2015 Inactive Aspirin Low Dose 81 mg tablet,delayed release RxNorm: 908315 1 Tablet(s) PO BIW on Thursday and Thursday No Start Date 06/16/2018 Inactive Tylenol PM oral RxNorm: 392770 oral No Start Date 04/07/2017 Inactive Vitamin D2 oral RxNorm: 4018 oral No Start Date 06/08/2018 Inactive Vitamin D2 50,000 unit capsule RxNorm: 805307 1 Capsule(s) PO QW No Start Date 04/13/2017 Inactive tramadol 50 mg tablet RxNorm: 013163 1 Tablet(s) PO TID as needed No Start Date 03/16/2018 Inactive Colace 100 mg capsule RxNorm: 3408755 Capsule(s) PO No Start Date 06/07/2018 Inactive furosemide 40 mg tablet RxNorm: 297124 1 Tablet(s) PO daily as needed No Start Date 07/12/2018 Inactive biotin oral RxNorm: oral No Start Date 06/16/2018 Inactive Micro-K 10 10 mEq capsule,extended release RxNorm: 157328 1 Capsule(s) PO daily No Start Date 05/07/2017 Inactive Synthroid 100 mcg tablet RxNorm: 310748 Tablet(s) PO No Start Date 07/31/2015 Inactive Vitamin B-12 oral RxNorm: oral No Start Date 06/16/2018 Inactive PreserVision AREDS 2 oral RxNorm: 7141223 oral No Start Date 06/07/2018 Inactive hydrochlorothiazide 25 mg tablet RxNorm: 331190 1 Tablet(s) PO daily No Start Date 07/18/2015 Inactive warfarin 2 mg tablet RxNorm: 769744 Tablet(s) PO No Start Date 08/29/2015 Inactive metoprolol succinate ER 100 mg tablet,extended release 24 hr RxNorm: 616962 1 Tablet(s) PO daily No Start Date 06/05/2015 Inactive warfarin 3 mg tablet RxNorm: 430649 Tablet(s) PO No Start Date 08/29/2015 Inactive Coumadin 3 mg tablet RxNorm: 517067 1 Tablet(s) PO QPM at 6:00pm Managed by Dr Bowman No Start Date 06/17/2017 Inactive Myrbetriq 50 mg tablet,extended release RxNorm: 1616638 1 Tablet(s) PO daily No Start Date 08/23/2018 Inactive Medication Administered Medication Codes Instructions Start Date Status Kenalog 40 mg/mL suspension for injection RxNorm: 7502961 2Milliliter 03/12/2018 No longer Active ceftriaxone 500 mg solution for injection RxNorm: 7249806 02/08/2018 No longer Active Kenalog 40 mg/mL suspension for injection RxNorm: 5164567 1Milliliter 10/06/2016 No longer Active ceftriaxone 500 mg solution for injection RxNorm: 8032464 10/06/2016 No longer Active Kenalog 40 mg/mL suspension for injection RxNorm: 3553425 Milliliter 04/28/2016 No longer Active Immunizations Vaccine [...] Localized edema ICD-10: R60.0 ICD-9: 782.3 05/24/2018 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 ICD-10: Z79.01 ICD-9: [...] NO Growth Day 2 05/27/2018 Comp Metabolic Fyd757 NA 142 mEq/L 05/24/2018 Comp Metabolic Qdm183 K 4.0 mEq/L 05/24/2018 Comp Metabolic Dmn100 CL 104 mEq/L 05/24/2018 Comp Metabolic Mzj339 CO2 30.0 mEq/L 05/24/2018 Comp Metabolic Rvy531 ANION GAP 12 05/24/2018 Comp Metabolic Kff953 GLUCOSE 94 mg/dL 05/24/2018 Comp Metabolic Gks854 Creat 0.6 mg/dL 05/24/2018 Comp Metabolic Acu033 eGFR 97 ml/min/1.73m2 05/24/2018 Comp Metabolic Zkd617 BUN 12 mg/dL 05/24/2018 Comp Metabolic Jqk713 B/C Ratio 19.4 Ratio 05/24/2018 Comp Metabolic Vsi122 CALCIUM 8.8 mg/dL 05/24/2018 Comp Metabolic Yln724 ALK PHOS 135 U/L 05/24/2018 Comp Metabolic Htw275 AST(SGOT) 18 U/L 05/24/2018 Comp Metabolic Dug366 ALT(SGPT) 16 U/L 05/24/2018 Comp Metabolic Iwj404 BILI T 0.4 mg/dL 05/24/2018 Comp Metabolic Orx432 ALBUMIN 3.9 g/dL 05/24/2018 Comp Metabolic Fgq080 TPRO 6.0 g/dL 05/24/2018 Comp Metabolic Owl289 GLOB 2.1 g/dL 05/24/2018 Comp Metabolic Nnm307 A/G Ratio 1.8 Ratio 05/24/2018 Comp Metabolic Cyd332 Osmo 283 mOsmo 05/24/2018 Pt Emf1830 PT 28.2 seconds 05/24/2018 Pt Vqe9849 INR 2.6 05/24/2018 Pt Qbk3250 Low Intensity - 1.5-2.0 05/24/2018 Pt Vdu0517 Mod intensity - 2.0-3.0 05/24/2018 Pt Zwh9304 Hi intensity - 3.0-4.0 05/24/2018 Cbc With [...] 29.7 pg 05/24/2018 Cbc With Differential Ord2 [place]% 7.0 % 05/24/2018 Cbc With Differential Ord2 [...] 1.54 K/ul 05/24/2018 Cbc With Differential Ord2 [place] ABS# 0.5 K/ul 05/24/2018 Cbc With Differential Ord2 Eos ABS# 0.4 K/ul 05/24/2018 Cbc With Differential Ord2 Baso ABS# 0.0 K/ul 05/24/2018 Tsh Ord6 TSH (3rd IS) 3.19 uIU/mL 10/06/2017 Free T4 Neb698 FREE T4 1.64 ng/dL 10/06/2017 Free T4 Qfw728 FREE T4 1.03 ng/dL 08/05/2017 Tsh Ord6 [...] Ord30 C/HDL 3.7 Ratio 04/09/2017 Free T4 Jcw788 FREE T4 0.97 ng/dL 04/09/2017 Tibc Ord40 Iron 36 ug/dl 04/09/2017 Tibc Ord40 UIBC 281 ug/dL 04/09/2017 Tibc Ord40 TIBC 317 ug/dL 04/09/2017 Tibc Ord40 Fe-%Sat 11.4 % 04/09/2017 Comp Metabolic Frd551 NA 136 mEq/L 04/09/2017 Comp Metabolic Rfq182 K 3.9 mEq/L 04/09/2017 Comp Metabolic Iit408 CL 98 mEq/L 04/09/2017 Comp Metabolic Ywi342 CO2 28.0 mEq/L 04/09/2017 Comp Metabolic Yfa167 ANION GAP 14 04/09/2017 Comp Metabolic Prn361 GLUCOSE 90 mg/dL 04/09/2017 Comp Metabolic Pey643 Creat 0.6 mg/dL 04/09/2017 Comp Metabolic Hkr413 eGFR 102 ml/min/1.73m2 04/09/2017 Comp Metabolic Xrf154 BUN 9 mg/dL 04/09/2017 Comp Metabolic Jqx946 B/C Ratio 15.3 Ratio 04/09/2017 Comp Metabolic Jpp074 CALCIUM 8.8 mg/dL 04/09/2017 Comp Metabolic Acv707 ALK PHOS 102 U/L 04/09/2017 Comp Metabolic Ehg589 AST(SGOT) 18 U/L 04/09/2017 Comp Metabolic Dve534 ALT(SGPT) 14 U/L 04/09/2017 Comp Metabolic Sgy406 BILI T 0.4 mg/dL 04/09/2017 Comp Metabolic Cef439 ALBUMIN 3.9 g/dL 04/09/2017 Comp Metabolic Fst472 TPRO 6.3 g/dL 04/09/2017 Comp Metabolic Kid468 GLOB 2.4 g/dL 04/09/2017 Comp Metabolic Mpq650 A/G Ratio 1.7 Ratio 04/09/2017 Comp Metabolic Lbf051 Osmo 270 mOsmo 04/09/2017 Vitamin D 25 Oh Shp5290 VITAMIN D, 25 HYDROXY 34.31 ng/mL 04/09/2017 [...] 28.9 pg 04/09/2017 Cbc With Differential Ord2 [place]% 8.8 % 04/09/2017 Cbc With Differential Ord2 [...] 1.22 K/ul 04/09/2017 Cbc With Differential Ord2 [place] ABS# 0.7 K/ul 04/09/2017 Cbc With Differential Ord2 Eos ABS# 0.1 K/ul 04/09/2017 Cbc With Differential Ord2 Baso ABS# 0.0 K/ul 04/09/2017 Urine Culture Ucult Complete >100,000 col/ml aerobic growth sent to ref lab 03/05/2017 Pt Oma0644 PT 24.2 seconds 04/14/2016 Pt Xnd8951 INR 2.3 04/14/2016 Pt Zhp1647 Low Intensity - 1.5-2.0 04/14/2016 Pt Llm2139 Mod intensity - 2.0-3.0 04/14/2016 Pt Jfl7757 Hi intensity - 3.0-4.0 04/14/2016 Pt Enc0678 PT 31.3 seconds 04/10/2016 Pt Zed3630 INR 3.3 04/10/2016 Pt Ovh6464 Low Intensity - 1.5-2.0 04/10/2016 Pt Npr3470 Mod intensity - 2.0-3.0 04/10/2016 Pt Gxn9432 Hi intensity - 3.0-4.0 04/10/2016 C RAP A SC [id number] Strep A Negative 04/10/2016 Urine Culture Ucult Complete >100,000 col/ml aerobic growth sent to ref lab 04/04/2016 Comp Metabolic Ice584 NA 136 mEq/L 04/03/2016 Comp Metabolic Ndr050 K 3.9 mEq/L 04/03/2016 Comp Metabolic Omy392 CL 99 mEq/L 04/03/2016 Comp Metabolic Iwn908 CO2 32.0 mEq/L 04/03/2016 Comp Metabolic Qrt038 ANION GAP 9 04/03/2016 Comp Metabolic Dqe413 GLUCOSE 88 mg/dL 04/03/2016 Comp Metabolic Lgc506 Creat 0.6 mg/dL 04/03/2016 Comp Metabolic Kiz306 eGFR 93 ml/min/1.73m2 04/03/2016 Comp Metabolic Qbn856 BUN 15 mg/dL 04/03/2016 Comp Metabolic Yvu219 B/C Ratio 23.4 Ratio 04/03/2016 Comp Metabolic Csk296 CALCIUM 8.7 mg/dL 04/03/2016 Comp Metabolic Qbz121 ALK PHOS 100 U/L 04/03/2016 Comp Metabolic Lmg772 AST(SGOT) 28 U/L 04/03/2016 Comp Metabolic Jyi853 ALT(SGPT) 39 U/L 04/03/2016 Comp Metabolic Xgk514 BILI T 0.5 mg/dL 04/03/2016 Comp Metabolic Ymf207 ALBUMIN 4.1 g/dL 04/03/2016 Comp Metabolic Lym298 TPRO 6.6 g/dL 04/03/2016 Comp Metabolic Ftp578 GLOB 2.5 g/dL 04/03/2016 Comp Metabolic Nsp232 A/G Ratio 1.7 Ratio 04/03/2016 Comp Metabolic Gds641 Osmo 272 mOsmo 04/03/2016 Cbc With Differential [...] 29.0 pg 04/03/2016 Cbc With Differential Ord2 [place]% 11.3 % 04/03/2016 Cbc With Differential Ord2 [...] 1.15 K/ul 04/03/2016 Cbc With Differential Ord2 [place] ABS# 0.8 K/ul 04/03/2016 Cbc With Differential Ord2 Eos ABS# 0.2 K/ul 04/03/2016 Cbc With Differential Ord2 Baso ABS# 0.0 K/ul 04/03/2016 Tsh Ord6 hTSH II 3.06 uIU/mL 04/03/2016 Free T4 Ujo637 FREE T4 0.99 ng/dL 04/03/2016 Free T4 Qhn644 FREE T4 0.81 ng/dL 07/31/2015 Comp Metabolic Gbi657 NA 136 mEq/L 07/31/2015 Comp Metabolic Asv377 K 3.8 mEq/L 07/31/2015 Comp Metabolic Cbz714 CL 97 mEq/L 07/31/2015 Comp Metabolic Qib250 CO2 29.0 mEq/L 07/31/2015 Comp Metabolic Djn359 ANION GAP 14 07/31/2015 Comp Metabolic Vmz541 GLUCOSE 90 mg/dL 07/31/2015 Comp Metabolic Fuf330 Creat 0.7 mg/dL 07/31/2015 Comp Metabolic Ssi078 eGFR 80 ml/min/1.73m2 07/31/2015 Comp Metabolic Uys068 BUN 8 mg/dL 07/31/2015 Comp Metabolic Rrt635 B/C Ratio 11.0 Ratio 07/31/2015 Comp Metabolic Knx372 CALCIUM 8.9 mg/dL 07/31/2015 Comp Metabolic Mnr823 ALK PHOS 102 U/L 07/31/2015 Comp Metabolic Tua830 AST(SGOT) 22 U/L 07/31/2015 Comp Metabolic Rrv958 ALT(SGPT) 14 U/L 07/31/2015 Comp Metabolic Wjq130 BILI T 0.5 mg/dL 07/31/2015 Comp Metabolic Lzn693 ALBUMIN 4.4 g/dL 07/31/2015 Comp Metabolic Rsq518 TPRO 6.7 g/dL 07/31/2015 Comp Metabolic Ehy123 GLOB 2.3 g/dL 07/31/2015 Comp Metabolic Crg708 A/G Ratio 1.9 Ratio 07/31/2015 Comp Metabolic Qwk954 Osmo 270 mOsmo 07/31/2015 Tsh Ord6 hTSH [...] Lipid Ord30 C/HDL 4.8 Ratio 07/31/2015 Pt [id number] PT 31.9 seconds 07/03/2015 Pt [id number] INR 3.2 07/03/2015 Pt [id number] Low Intensity - 1.5-2.0 07/03/2015 Pt [id number] Mod intensity - 2.0-3.0 07/03/2015 Pt [id number] Hi intensity - 3.0-4.0 07/03/2015 Review of [...] Codes Date URINALYSIS NONAUTO W/O SCOPE CPT-4: 75187 11/01/2018 PPPS, SUBSEQ VISIT CPT- 4: G0439 06/08/2018 URINALYSIS NONAUTO W/O SCOPE CPT-4: 77918 05/25/2018 ADMIN INFLUENZA VIRUS VAC CPT-4: G0008 05/20/2018 FLU VACC PRSV FREE INC ANTIG CPT-4: 93526 05/20/2018 DRAIN/INJECT JOINT/BURSA CPT-4: 84155 03/23/2018 TRIAMCINOLONE ACET INJ NOS CPT-4: J3301 03/23/2018 DRAIN/INJECT JOINT/BURSA CPT-4: 24420 03/12/2018 TRIAMCINOLONE ACET INJ NOS CPT-4: J3301 03/12/2018 ROCEPHIN, PER 250 MG CPT- 4: J0696 02/08/2018 ADMIN INFLUENZA VIRUS VAC CPT-4: G0008 06/18/2017 FLU VACC PRSV FREE INC ANTIG CPT-4: 33308 06/18/2017 URINALYSIS NONAUTO W/O SCOPE CPT-4: 72259 04/27/2017 URINALYSIS NONAUTO W/O SCOPE CPT-4: 35211 2017 DRAIN/INJECT JOINT/BURSA CPT-4: 99426 03/03/2017 TRIAMCINOLONE ACET INJ NOS CPT-4: J3301 03/03/2017 TRIAMCINOLONE ACET INJ NOS CPT-4: J3301 10/06/2016 ROCEPHIN, PER 250 MG CPT- 4: J0696 10/06/2016 THER/PROPH/DIAG INJ SC/IM CPT-4: 56341 10/06/2016 TRIAMCINOLONE ACET INJ NOS CPT-4: J3301 04/28/2016 URINALYSIS NONAUTO W/O SCOPE CPT-4: 72052 04/03/2016 ADMIN INFLUENZA VIRUS VAC CPT-4: G0008 07/03/2015 FLU VACC PRSV FREE INC ANTIG CPT-4: 02098 07/03/2015 Vital Signs Date Vital 11/23/2018 Blood Pressure 1: 134/78 Code: 8480-6 BMI: 27.4 Code: 59759-4 Heart Rate 1: 88 bpm Height: 5'6" Weight: 170 lbs 11/01/2018 Blood Pressure 1: 132/85 Code: 8480-6 BMI: 27.3 Code: 00839-7 Height: 5'6" Weight: 169 lbs 09/30/2018 Blood Pressure 1: 142/80 Code: 8480-6 BMI: 27.3 Code: 94706-5 Heart Rate 1: 84 bpm Height: 5'6" SpO2: 96% Weight: 169 lbs 07/20/2018 Blood Pressure 1: 124/70 Code: 8480-6 Heart Rate 1: 76 bpm Height: SpO2: 95% Weight: 06/29/2018 Blood Pressure 1: 142/80 Code: 8480-6 BMI: 27.8 Code: 25987-0 Heart Rate 1: 89 bpm Height: 5'6" SpO2: 94% Weight: 172 lbs 06/08/2018 Blood Pressure 1: 144/66 Code: 8480-6 BMI: 27.9 Code: 88861-0 Heart Rate 1: 85 bpm Height: 5'6" SpO2: 97% Waist Measure (cm): 97 cm Weight: 173 lbs 05/24/2018 Blood Pressure 1: 128/72 Code: 8480-6 BMI: 27.9 Code: 75016-6 Heart Rate 1: 82 bpm Height: 5'6" SpO2: 92% Weight: 173 lbs 04/06/2018 Blood Pressure 1: 138/88 Code: 8480-6 Heart Rate 1: 86 bpm Height: SpO2: 96% Weight: 03/23/2018 Blood Pressure 1: 150/88 Code: 8480-6 Heart Rate 1: 80 bpm Height: SpO2: 96% Weight: 03/12/2018 Heart Rate 1: 90 bpm Height: Weight: 03/02/2018 Blood Pressure 1: 128/80 Code: 8480-6 BMI: 28.4 Code: 38074-6 Heart Rate 1: 83 bpm Height: 5'6" SpO2: 93% Weight: 176 lbs 02/08/2018 Blood Pressure 1: 142/80 Code: 8480-6 Heart Rate 1: 78 bpm Height: 5'6" SpO2: 94% 12/03/2017 Blood Pressure 1: 124/78 Code: 8480-6 BMI: 27.9 Code: 89901-1 Heart Rate 1: 70 bpm Height: 5'6" SpO2: 97% Weight: 173 lbs 10/27/2017 Blood Pressure 1: 126/60 Code: 8480-6 Heart Rate 1: 65 bpm Height: 5'6" SpO2: 98% Weight: 10/12/2017 Blood Pressure 1: 126/74 Code: 8480-6 BMI: 26.0 Code: 22669-2 Heart Rate 1: 80 bpm Height: 5'6" SpO2: 89% Weight: 161 lbs 10/06/2017 Blood Pressure 1: 126/70 Code: 8480-6 BMI: 27.2 Code: 80836-7 Heart Rate 1: 73 bpm Height: 5'6" SpO2: 97% Weight: 168 lbs 8 oz 08/05/2017 Blood Pressure 1: 152/78 Code: 8480-6 BMI: 27.1 Code: 50417-7 Heart Rate 1: 73 bpm Height: 5'6" SpO2: 98% Weight: 168 lbs 07/06/2017 Blood Pressure 1: 148/70 Code: 8480-6 BMI: 26.6 Code: 94135-1 Heart Rate 1: 80 bpm Height: 5'6" SpO2: 97% Weight: 165 lbs 06/18/2017 Blood Pressure 1: 132/68 Code: 8480-6 BMI: 26.8 Code: 19580-9 Heart Rate 1: 84 bpm Height: 5'6" [...] 1: 162/84 Code: 8480-6 BMI: 28.1 Code: 68255-9 Heart Rate 1: 98 bpm Height: 5'6" SpO2: 97% Weight: 174 lbs 03/03/2017 Blood Pressure 1: 154/88 Code: 8480-6 Heart Rate 1: 96 bpm Height: SpO2: 95% Weight: 01/05/2017 Blood Pressure 1: 142/78 Code: 8480-6 BMI: 28.9 Code: 74232-1 Heart Rate 1: 94 bpm Height: 5'6" SpO2: 95% Weight: 179 lbs 12/19/2016 Blood Pressure 1: 130/74 Code: 8480-6 Heart Rate 1: 91 bpm Height: 5'6" SpO2: 97% Weight: 11/13/2016 Blood Pressure 1: 152/82 Code: 8480-6 BMI: 28.4 Code: 61403-6 Heart Rate 1: 85 bpm Height: 5'6" SpO2: 96% Weight: 176 lbs 10/16/2016 Blood Pressure 1: 148/72 Code: 8480-6 BMI: 28.4 Code: 53271-6 Heart Rate 1: 90 bpm Height: 5'6" SpO2: 96% Weight: 176 lbs 10/06/2016 Blood Pressure 1: 150/80 Code: 8480-6 BMI: 28.4 Code: 98129-4 Heart Rate 1: 76 bpm Height: 5'6" SpO2: 97% Weight: 176 lbs 07/02/2016 Blood Pressure 1: 142/78 Code: 8480-6 BMI: 27.8 Code: 15596-4 Heart Rate 1: 85 bpm Height: 5'6" SpO2: 97% Weight: 172 lbs 05/21/2016 Blood Pressure 1: 166/80 Code: 8480-6 BMI: 27.9 Code: 54094-1 Heart Rate 1: 79 bpm Height: 5'6" SpO2: 98% Weight: 173 lbs 05/07/2016 Blood Pressure 1: 140/70 Code: 8480-6 BMI: 27.9 Code: 18645-3 Heart Rate 1: 82 bpm Height: 5'6" SpO2: 96% Weight: 173 lbs 04/28/2016 Blood Pressure 1: 128/86 Code: 8480-6 BMI: 27.4 Code: 49960-9 Heart Rate 1: 86 bpm Height: 5'6" SpO2: 96% Temperature: 36.1 (C) / 97.0 (F) Weight: 170 lbs 04/07/2016 Blood Pressure 1: 150/80 Code: 8480-6 Heart Rate 1: 94 bpm Height: SpO2: 95% Weight: 04/03/2016 Blood Pressure 1: 122/76 Code: 8480-6 BMI: 27.4 Code: 34503-9 Heart Rate 1: 84 bpm Height: 5'6" SpO2: 94% Weight: 170 lbs 01/31/2016 Blood Pressure 1: 124/82 Code: 8480-6 BMI: 27.8 Code: 54747-3 Heart Rate 1: 100 bpm Height: 5'6" SpO2: 97% Weight: 172 lbs 11/29/2015 Blood Pressure 1: 140/82 Code: 8480-6 Blood Pressure 1: 130/84 Code: 8480-6 BMI: 27.4 Code: 43184-6 Heart Rate 1: 97 bpm Height: 5'6" SpO2: 95% Weight: 170 lbs 10/01/2015 Blood Pressure 1: 130/80 Code: 8480-6 BMI: 27.4 Code: 02499-9 Heart Rate 1: 82 bpm Height: 5'6" SpO2: 97% Weight: 170 lbs 08/30/2015 Blood Pressure 1: 120/68 Code: 8480-6 BMI: 27.6 Code: 10797-6 Heart Rate 1: 91 bpm Height: 5'6" SpO2: 96% Weight: 171 lbs 07/31/2015 Blood Pressure 1: 180/80 Code: 8480-6 BMI: 27.4 Code: 90121-8 Heart Rate 1: 60 bpm Height: 5'6" SpO2: 94% Weight: 170 lbs 07/03/2015 Blood Pressure 1: 154/80 Code: 8480-6 BMI: 27.4 Code: 33952-9 Heart Rate 1: 98 bpm Height: 5'6" SpO2: 95% Weight: 170 lbs 04/10/2015 Blood Pressure 1: 138/72 Code: 8480-6 BMI: 27.8 Code: 83797-0 Heart Rate 1: 82 bpm Height: 5'6" SpO2: 98% Weight: 172 lbs 01/11/2015 Blood Pressure 1: 132/74 Code: 8480-6 BMI: 28.6 Code: 85649-9 Heart Rate 1: 88 bpm Height: 5'6" [...] I10] Diagnosis: Hypoxemia[ICD10: R09.02] Wendi Anaya MD, [facility] CPT-4: 96648 11/23/2018 ([id number]) 05400 EST. PATIENT, LEVEL III Diagnosis: Dysuria[ICD10: R30.0] Diagnosis: Other specified noninflammatory disorders of vagina[ICD10: N89.8] Mimi Anaya MD, [facility] CPT-4: 76380 11/01/2018 ([id number]) 70488 EST. PATIENT, LEVEL IV Diagnosis: Essential (primary) hypertension[ICD10: I10] Diagnosis: Atrophy of thyroid (acquired)[ICD10: E03.4] Carleen Anaya MD, [facility] CPT-4: 69311 09/30/2018 ([id number]) 23258 EST. PATIENT, LEVEL III Diagnosis: Atrophy of thyroid (acquired)[ICD10: E03.4] Diagnosis: Essential (primary) hypertension[ICD10: I10] Carleen Anaya MD, [facility] CPT-4: 13669 07/20/2018 ([id number]) 99491 EST. PATIENT, LEVEL IV Diagnosis: Essential (primary) hypertension[ICD10: I10] Diagnosis: Atrophy of thyroid (acquired)[ICD10: E03.4] Diagnosis: Other fatigue[ICD10: R53.83] Diagnosis: Other insomnia[ICD10: G47.09] Carleen Anaya MD, [facility] CPT-4: 34889 06/29/2018 ([id number]) 38393 EST. 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 PATIENT, LEVEL III Diagnosis: Lumbago with sciatica, right side[ICD10: M54.41] Diagnosis: Sciatica, right side[ICD10: M54.31] Carleen Anaya MD, [facility] CPT- 4: 45858 04/06/2018 ([id number]) 96956 EST. PATIENT, LEVEL III Diagnosis: Lumbago with sciatica, right side[ICD10: M54.41] Diagnosis: Sciatica, right side[ICD10: M54.31] Carleen Anaya MD, [facility] CPT- 4: 68959 03/23/2018 14961 EST. PATIENT, LEVEL III Diagnosis: Low back pain[ICD10: M54.5] Diagnosis: Sacroiliitis, not elsewhere classified[ICD10: M46.1] Wendi Anaya MD, [facility] CPT-4: 70586 03/12/2018 ([id number]) 12693 EST. PATIENT, LEVEL IV Diagnosis: Atrophy of thyroid (acquired)[ICD10: E03.4] Diagnosis: Essential (primary) hypertension[ICD10: I10] Diagnosis: Urge incontinence[ICD10: N39.41] Carleen Anaya MD, [facility] CPT-4: 92297 03/02/2018 ([id number]) 89062 EST. PATIENT, LEVEL III Diagnosis: Cellulitis of face[ICD10: L03.211] Mimi Anaya MD, [facility] CPT- 4: 58327 02/08/2018 ([id number]) 68392 EST. PATIENT, LEVEL IV Diagnosis: Atrophy of thyroid (acquired)[ICD10: E03.4] Diagnosis: Essential (primary) hypertension[ICD10: I10] Diagnosis: Urge incontinence[ICD10: N39.41] Carleen Anaya MD, [facility] CPT-4: 99298 12/03/2017 07487 EST. PATIENT, LEVEL IV Diagnosis: Essential (primary) hypertension[ICD10: I10] Diagnosis: Weakness[ICD10: R53.1] Diagnosis: Low back pain[ICD10: M54.5] Diagnosis: Other allergic rhinitis[ICD10: J30.89] Wendi Anaya MD, [facility] CPT- 4: 36070 10/27/2017 42372 EST. PATIENT, LEVEL IV Diagnosis: Pneumonia due to other specified bacteria[ICD10: J15.8] Diagnosis: Chronic systolic (congestive) heart failure[ICD10: I50.22] Wendi Anaya MD, [facility] CPT-4: 82304 10/12/2017 ([id number]) 89807 EST. PATIENT, LEVEL IV Diagnosis: Atrophy of thyroid (acquired)[ICD10: E03.4] Diagnosis: Nonscarring hair loss, unspecified[ICD10: L65.9] Diagnosis: Essential (primary) hypertension[ICD10: I10] Carleen Anaya MD, [facility] CPT-4: 70740 10/06/2017 ([id number]) 26674 EST. PATIENT, LEVEL IV Diagnosis: Atrophy of thyroid (acquired)[ICD10: E03.4] Diagnosis: Essential (primary) hypertension[ICD10: I10] Diagnosis: Localized edema[ICD10: R60.0] Carleen Anaya MD, [facility] CPT-4: 64900 08/05/2017 ([id number]) 38960 EST. PATIENT, LEVEL IV Diagnosis: Essential (primary) hypertension[ICD10: I10] Diagnosis: Weakness[ICD10: R53.1] Diagnosis: Other fecal abnormalities[ICD10: R19.5] Carleen Anaya MD, [facility] CPT-4: 79211 07/06/2017 ([id number]) 22548 EST. 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 PATIENT, LEVEL IV Diagnosis: Pain in right shoulder[ICD10: M25.511] Diagnosis: Weakness[ICD10: R53.1] Diagnosis: Other fatigue[ICD10: R53.83] Diagnosis: Other malaise[ICD10: R53.81] Wendi Anaya MD, [facility] CPT-4: 83894 05/11/2017 ([id number]) Miscellaneous no charge Diagnosis: Essential (primary) hypertension[ICD10: I10] Mimi Anaya MD, [facility] CPT-4: 30233 04/30/2017 ([id number]) 70156 EST. PATIENT, LEVEL III Diagnosis: Acute recurrent maxillary sinusitis[ICD10: J01.01] Diagnosis: Urinary tract infection, site not specified[ICD10: N39.0] Mimi Anaya MD, [facility] CPT-4: 96440 04/27/2017 ([id number]) 20089 EST. PATIENT, LEVEL IV Diagnosis: Atrophy of thyroid (acquired)[ICD10: E03.4] Diagnosis: Essential (primary) hypertension[ICD10: I10] Diagnosis: Iron deficiency[ICD10: E61.1] Diagnosis: Other specified heart block[ICD10: I45.5] Carleen Anaya MD, [facility] CPT-4: 08859 04/08/2017 75063 EST. PATIENT, LEVEL III Diagnosis: Low back pain[ICD10: M54.5] Diagnosis: Sacroiliitis, not elsewhere classified[ICD10: M46.1] Wendi Anaya MD, [facility] CPT-4: 22458 03/03/2017 ([id number]) 30794 EST. PATIENT, LEVEL IV Diagnosis: Essential (primary) hypertension[ICD10: I10] Diagnosis: Atrophy of thyroid (acquired)[ICD10: E03.4] Diagnosis: Vascular dementia without behavioral disturbance[ICD10: F01.50] Carleen Anaya MD, [facility] CPT-4: 07982 01/05/2017 35910 EST. PATIENT, LEVEL III Diagnosis: Cervicalgia[ICD10: M54.2] Diagnosis: Other muscle spasm[ICD10: M62.838] Wendi Anaya MD, [facility] CPT-4: 54159 12/19/2016 ([id number]) 89461 EST. PATIENT, LEVEL III Diagnosis: Essential (primary) hypertension[ICD10: I10] Diagnosis: Gastro-esophageal reflux disease without esophagitis[ICD10: K21.9] Carleen Anaya MD [facility] CPT-4: 15546 11/13/2016 ([id number]) 80465 EST. PATIENT, LEVEL III Diagnosis: Pain in right shoulder[ICD10: M25.511] Diagnosis: Insomnia due to medical condition[ICD10: G47.01] Carleen Anaya MD [facility] CPT-4: 03697 10/16/2016 ([id number]) 12962 EST. PATIENT, LEVEL IV Diagnosis: Pneumonia due to other specified bacteria[ICD10: J15.8] Diagnosis: Pain in right shoulder[ICD10: M25.511] Diagnosis: Cough[ICD10: R05] Carleen Anaya MD [facility] CPT-4: 30831 10/06/2016 ([id number]) 37614 EST. PATIENT, LEVEL IV Diagnosis: Essential (primary) hypertension[ICD10: I10] Diagnosis: Personal history of other specified conditions[ICD10: Z87.898] Diagnosis: Unsteadiness on feet[ICD10: R26.81] Carleen Anaya MD [facility] CPT- 4: 97887 07/02/2016 ([id number]) 32538 EST. PATIENT, LEVEL IV Diagnosis: Dysphagia, pharyngeal phase[ICD10: R13.13] Diagnosis: Urge incontinence[ICD10: N39.41] Diagnosis: Gastro-esophageal reflux disease without esophagitis[ICD10: K21.9] Carleen Anaya MD [facility] CPT-4: 72385 05/21/2016 ([id number]) 43184 EST. PATIENT, LEVEL III Diagnosis: Gastro-esophageal reflux disease without esophagitis[ICD10: K21.9] Carleen Anaya MD [facility] CPT-4: 62214 05/07/2016 ([id number]) 17655 EST. PATIENT, LEVEL III Diagnosis: Acute laryngopharyngitis[ICD10: J06.0] Diagnosis: Dysphagia, pharyngeal phase[ICD10: R13.13] Diagnosis: Allergic rhinitis due to pollen[ICD10: J30.1] Mimi Anaya MD [facility] CPT-4: 14321 04/28/2016 ([id number]) Miscellaneous no charge Diagnosis: Acute laryngopharyngitis[ICD10: J06.0] Wendi Anaya MD, [facility] CPT- 4: 13833 04/10/2016 01164 EST. PATIENT, LEVEL IV Diagnosis: Cervicalgia[ICD10: M54.2] Diagnosis: Acute laryngopharyngitis[ICD10: J06.0] Diagnosis: [facility] (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 of anticoagulants[ICD10: Z79.01] Diagnosis: Other cystitis without hematuria[ICD10: N30.80] Wendi Anaya MD, [facility] CPT-4: 93138 04/07/2016 ([id number]) 79230 EST. PATIENT, LEVEL IV Diagnosis: Essential (primary) hypertension[ICD10: I10] Diagnosis: Hypothyroidism, unspecified[ICD10: E03.9] Diagnosis: Other fatigue[ICD10: R53.83] Diagnosis: Urge incontinence[ICD10: N39.41] Mimi Anaya MD, [facility] CPT- 4: 76011 04/03/2016 ([id number]) 28543 EST. PATIENT, LEVEL IV Diagnosis: Essential (primary) hypertension[ICD10: I10] Diagnosis: Pain in right ankle and joints of right foot[ICD10: M25.571] Diagnosis: Dizziness and giddiness[ICD10: R42] Diagnosis: Tinnitus, bilateral[ICD10: H93.13] Mimi Anaya MD, [facility] CPT- 4: 47301 01/31/2016 ([id number]) 38736 EST. PATIENT, LEVEL IV Diagnosis: Essential (primary) hypertension[ICD10: I10] Diagnosis: Otalgia, right ear[ICD10: H92.01] Diagnosis: Allergic rhinitis due to pollen[ICD10: J30.1] Diagnosis: Hypothyroidism, unspecified[ICD10: E03.9] Mimi Anaya MD, [facility] CPT-4: 72938 11/29/2015 ([id number]) 01001 EST. PATIENT, LEVEL IV Diagnosis: Essential (primary) hypertension[ICD10: I10] Diagnosis: Urge incontinence[ICD10: N39.41] Diagnosis: Unspecified dementia without behavioral disturbance[ICD10: F03.90] Mimi Anaya MD [facility] CPT-4: 38563 10/01/2015 ([id number]) 55464 EST. PATIENT, LEVEL IV Diagnosis: Essential (primary) hypertension[ICD10: I10] Diagnosis: Hypothyroidism, unspecified[ICD10: E03.9] Diagnosis: Unspecified dementia without behavioral disturbance[ICD10: F03.90] Diagnosis: Urge incontinence[ICD10: N39.41] Mimi Anaya MD [facility] CPT- 4: 81408 08/30/2015 ([id number]) 08540 EST. PATIENT, LEVEL IV Diagnosis: Essential (primary) hypertension[ICD10: I10] Diagnosis: Hypothyroidism, unspecified[ICD10: E03.9] Diagnosis: Hyperlipidemia, unspecified[ICD10: E78.5] Carleen Anaya MD [facility] CPT-4: 61312 07/31/2015 ([id number]) 30093 EST. 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 PATIENT, LEVEL IV Diagnosis: ESSENTIAL HYPERTENSION[ICD9: 401.9] Diagnosis: MACULAR DEGENERATION[ICD9: 362.50] Diagnosis: Peripheral vascular disease[ICD9: 443.9] Diagnosis: Neuropathy[ICD9: 355.9] Carleen Anaya MD [facility] CPT-4: 11955 04/10/2015 ([id number]) OFFICE/OUTPATIENT VISIT NEW Diagnosis: ESSENTIAL HYPERTENSION[ICD9: 401.9] Diagnosis: HYPOTHYROIDISM[ICD9: 244.9] Diagnosis: URGE INCONTINENCE[ICD9: 788.31] Diagnosis: Constipation - functional[ICD9: 564.09] Carleen Anaya MD, [facility] CPT-4: 00853 01/11/2015 Plan of Care Planned Activity Notes [...] both night time and portable O2. 11/23/2018 Patient Education: Patient Medication Summary Completed 11/23/2018 Visit Plan: Possible vaginal bleeding -patient has a history of total hysterectomy -no obvious bleeding today upon inspection -will culture urine -monitor symptoms and call if bleeding persists or worsens. 11/01/2018 Appointment: Mimi Espinosa WPtel: [phone] [phone] (30 min) Complex 11/01/2018 Patient Education: Patient [...] control. 09/30/2018 Appointment: Carleen Anaya WPtel: [phone] [facility] (15 min) Moderate 09/30/2018 Patient Education: Patient Medication Summary Completed 09/30/2018 Appointment: Carleen Anaya WPtel: [phone] [facility] (15 min) Moderate 09/22/2018 Visit Plan: Hypothyroidism [...] at home. 07/20/2018 Appointment: [phone] (15 min) Moderate 07/20/2018 Patient Education: Patient [...] time. 06/29/2018 Appointment: [phone] (15 min) Moderate 06/29/2018 Patient Education: Patient [...] care surrogate. 06/08/2018 Appointment: Mimi Espinosa WPtel: [facility] [address] [place] [id number] [facility] - Annual Wellness Visit 06/08/2018 Patient [...] edema. Weakness-fatigue- check labs Dysuria- check UA DPR-uwabsiuuaj-nr changes in medications 05/24/2018 Appointment: Mimi Espinosa WPtel: [facility] [address] [address] (15 min) Moderate 05/24/2018 Patient Education: Patient Medication Summary Completed 05/24/2018 Appointment: Injection 05/20/2018 Patient Education: Patient Medication Summary Completed 05/20/2018 Visit Plan: Sciatica- pt to continue with aleve twice daily and cyclobenzaprine x 1 week. Pt is to call if the symptoms do not improve or if they worsen. [facility]. 04/06/2018 Appointment: Carleen Anaya WPtel: [facility] [address] [facility] (15 min) Moderate 04/06/2018 Patient Education: [...] do not improve or if they worsen. [id number] - andrew 03/23/2018 Appointment: Carleen Anaya WPtel: [phone] [facility] (15 min) Moderate 03/23/2018 Patient Education: Patient [...] injection. 03/12/2018 Appointment: Wendi Uriostegui WPtel: [phone] [facility] (30 min) Complex 03/12/2018 Patient Education: Patient [...] myrbetric 03/02/2018 Appointment: Carleen Anaya WPtel: [phone] [facility] (15 min) Moderate 03/02/2018 Patient Education: Patient Medication Summary Completed 03/02/2018 Appointment: (10 min) Simple 02/09/2018 Visit Plan: Cellulitis - start oral antibiotics as directed, return to clinic as directed, call for acute change in symptoms, worsening redness, warmth, discharge. 02/08/2018 Appointment: Mimi Espinosa WPtel: [phone] [phone] [place] (15 min) Moderate 02/08/2018 Patient Education: [...] daily. 12/03/2017 Appointment: Carleen Anaya WPtel: [phone] [facility] (15 min) Moderate 12/03/2017 Patient Education: Patient [...] nasal steroid allergy spray. 10/27/2017 Appointment: [facility]istegui [phone] (15 min) Moderate 10/27/2017 Patient Education: Patient Medication Summary Completed 10/27/2017 Visit Plan: Pneumonia - Pt has been diagnosed with pneumonia by physical exam. A chest xray has been ordered as have antibiotics. The pt is aware of the diagnosis and the need for acute treatment of this illness. 10/12/2017 Appointment: Wendi Uriostegui [facility]Ptel[phone] [place] (15 min) Moderate 10/12/2017 Patient [...] labs today. 10/06/2017 Appointment: [phone] [place] (15 min) Moderate 10/06/2017 Patient Education: [...] prn. 08/05/2017 Appointment: [phone] [place] (15 min) Moderate 08/05/2017 Patient Education: Patient Medication Summary Completed 08/05/2017 Appointment: Carleen Anaya WPtel: [facility] [facility] [place] (15 min) Moderate 07/14/2017 Visit Plan: [...] voltaren gel. 07/06/2017 Appointment: Carleen Anaya WPtel: [facility] [facility] [place] (15 min) Moderate 07/06/2017 Patient Education: [...] shot today 06/18/2017 Appointment: [phone] [place] (15 min) Moderate 06/18/2017 Patient Education: Patient Medication Summary Completed 06/18/2017 Appointment: Nurse Visit 05/12/2017 Care Plan: X-RAY EXAM OF SHOULDER LOINC : 65727-3 Pending 05/12/2017 Visit Plan: Weakness, fatigue, malaise - Discussed with Dr. Anaya - pt sent for IV fluids, will check labs and UA - will treat as indicated - pt is to keep her appointment with her pictures editor for her ECHO and Carotid US. Pt is to follow up with her oncologist. Right shoulder pain after fall - will send for X-ray - The pt is to use prn antiinflammatories to manage acute pain. The patient is to call the office if the pain is worsening or does not improve. 05/11/2017 Appointment: Wendi Uriostegui [facility]Ptel[phone] (30 min) Complex 05/11/2017 Patient Education: Patient [...] of plan. 04/27/2017 Appointment: M[facility] Espinosa [facility]Ptel[phone] (15 min) Moderate 04/27/2017 Patient Education: Patient [...] heart beat - recommended evaluation by her Skip Tender - Dr. Butler - I attempted a phone call to the office of Dr. Butler, I had to leave a message on the answering machine. If i don't hear back from Dr. Butler's office, we will need to do a Holter monitor on patient. 04/08/2017 Appointment: Carleen Anaya WPtel: [phone] [facility] (15 min) Moderate 04/08/2017 Patient Education: Patient Medication Summary Completed 04/08/2017 Care Plan: Referral Order SNOMED-CT : [id number] Pending 04/08/2017 Visit Plan: UTI - pt [...] of injection. 03/03/2017 Appointment: Wendi Uriostegui WPtel: [phone] [facility] (30 min) Complex 03/03/2017 Patient Education: Patient [...] control. 01/05/2017 Appointment: Carleen Anaya WPtel: [phone] [facility] (15 min) Moderate 01/05/2017 Patient Education: Patient Medication Summary Completed 01/05/2017 Visit Plan: Neck Pain- pt to start with aspercreme or biofreeze to neck three times daily and start neck exercises daily. Will send RX - The patient is to call the office if the pain is worsening or does not improve. 12/19/2016 Appointment: Wendi Uriostegui WPtel: [phone] [facility] (30 min) Complex 12/19/2016 Patient Education: [...] improving. 11/13/2016 Appointment: Carleen Anaya WPtel: [phone] [facility] (15 min) Moderate 11/13/2016 Patient Education: Patient Medication Summary Completed 11/13/2016 Visit Plan: Insomnia -extended release melatonin - you can take up to 10mg of melatonin sleepy time tea - - use warm milk in the tea. Right shoulder - pt to continue with therapy, anti-inflammatory 10/16/2016 Appointment: Carleen Anaya WPtel: [phone] [facility] (15 min) Moderate 10/16/2016 Patient Education: [...] pt. 10/06/2016 [facility]ment: [facility] [place] (15 min) Moderate 10/06/2016 Patient Education: Patient Medication Summary Completed 10/06/2016 Care Plan: X-RAY EXAM OF SHOULDER LOINC : 34795-0 Pending 10/06/2016 App[facility]ment: [phone] [place] (30 min) Complex 10/01/2016 [phone] [place] Patient informed. Completed 07/08/2016 Visit Plan: Hypertension [...] discussed therapy. 07/02/2016 Appointment: Carleen Anaya WPtel: [facility] [id number] [facility] (15 min) Moderate 07/02/2016 Patient Education: Patient Medication Summary Completed 07/02/2016 Care Plan: Referral Order SNOMED-CT : [id number] Pending 07/02/2016 Visit Plan: Hypertension - well [...] planning on getting a flu shot at [facility] and she is due for another pneumovax- last pneumovax was in 2008 - so she can have pneumovax now and the prevnar in 2017 05/21/2016 Appointment: Carleen Anaya WPtel: [facility] [address] [facility] (15 min) Moderate 05/21/2016 Patient Education: Patient Medication Summary Completed 05/21/2016 Referral: Medardo Del Real [address] Referral Completed 05/12/2016 Visit Plan: Esophageal [...] times daily 05/07/2016 Appointment: Carleen Anaya WPtel: [facility] [address] (15 min) Moderate 05/07/2016 Patient Education: Patient Medication Summary Completed 05/07/2016 Appointment: Mimi Espinosa WPtel: [facility] [address] (30 min) Complex 05/01/2016 Visit Plan: [...] Kenalog injection today in the office Sore pkiyfq-ctmncfwkk-lcxqt dexilant-refer to Dr Del Real for evaluation 04/28/2016 Appointment: Mimi Espinosa WPtel: [id number] (30 min) Complex 04/28/2016 Patient Education: [...] medication switched. 04/07/2016 Appointment: Wend[facility] Uriostegui [phone] ([facility] min) Complex 04/07/2016 Patient Education: [...] atigue-check labs including UA-culture if positive Urge oilwaglqlqfr-uxcuaknro-mmotf UA with C&S 04/03/2016 Appointment: Mimi Espinosa WPtel: [phone] [phone] (30 min) Complex 04/03/2016 Patient Education: Patient Medication Summary Completed 04/03/2016 Visit Plan: Hypertension - well controlled - continue with current medications, continue with no added salt diet. Pt has been encouraged to exercise daily. The pt has been advised to call the office if there are any acute concerns about change in blood pressure readings at home. Gxjdhwoac-nejpfdhz-zusluscf MRI brain Right ankle cifh-twgnoec-ypcf right ankle- plan to refer to physical therapy if appropriate 01/31/2016 Appointment: Mimi Espinosa WPtel: [phone] [phone] (30 min) Complex 01/31/2016 Patient Education: Patient [...] to medications. 07/31/2015 Appointment: Carleen Anaya WPtel: [facility] [address] (15 min) Moderate 07/31/2015 Patient Education: Patient Medication Summary Completed 07/31/2015 Patient Education: Hypertension Completed 07/31/2015 Care Plan: Referral Order SNOMED-CT : [id number] Ordered 07/31/2015 Visit Plan: Hypertension - uncontrolled [...] on Nortryptyline 07/03/2015 Appointment: Carleen Anaya WPtel: [address] [place], [place] [address] (15 min) Moderate 07/03/2015 Patient Education: Patient [...] 01/11/2015 Referral: [facility] WPtel: [phone] [facility] Referral Appointment Requested Referral: External, Ordering Provider Referral Appointment Requested Referral: External, Ordering Provider Referral Relationship Referral: Medardo Del Real [facility] Referral Appointment Requested Instructions Comment stay off of fosamax x 6 more [...] planning on getting a flu shot at [facility] and she is due for another [...] not do so at this time. . Hypothyroidism - pt with chronic hypothyroidism, [...] change in blood pressure readings at home. repeat INR in 2 weeks repeat a [...] to thyroid - check labs today. . Pneumonia - Pt has been diagnosed with pneumonia by physical exam. A chest xray has been ordered as have antibiotics. The pt is aware of the diagnosis and the need for acute treatment of this illness. cefdinir rx to pharmacy - prednisone 40mg daily x 3 days Right shoulder pain - rx for xray sent with pt. CHECK LABS AND UA . Edema - pt has been advised to elevate legs to prevent dependent edema, compression has been recommended to help to naturally decrease peripheral edema. Diuretic use has been discussed and pt has been instructed in appropriate use of such medication as necessary to further attempt to reduce peripheral edema. Weakness-fatigue- check labs Dysuria- check UA JBI-wlbseeigme-mk changes in medications UA keflex . Sinusitis - Pt has [...] prevent diarrhea. Patient verbalized understanding of plan. Salon Pas with lidocaine patch - over [...] change in blood pressure readings at home. Kmhckaxqc-tyrssfgx-twhnatkf MRI brain Right ankle kwau-bpmikjx-lwgx right ankle-plan to refer to physical therapy [...] pain - improved with voltaren gel. . Low back pain- The pt is [...] pain occurs at the site of injection. extended release melatonin - you can take [...] Kenalog injection today in the office Sore cbspry-dqebikejz-mmons dexilant-refer to Dr Del Real for evaluation [...] call if symptoms do not improve. . Neck Pain- pt to start with [...] in symptoms, worsening redness, warmth, discharge. . Weakness, fatigue - UA negative - [...] in the nasal steroid allergy spray. . Hypertension - well controlled - continue [...] carafate 1 gram four times daily . Hypothyroidism - pt with chronic hypothyroidism, [...] heart beat - recommended evaluation by her Skip Tender - Dr. Butler - I attempted a [...] voltaren gel Gait unsteadiness - discussed therapy. MYRBETRIQ-SAMPLES 1 DAILY . Hypertension - well [...] treatment plan and call if symptoms worsen. Flonase 1 spray each nare daily . [...] assure normal liver response to medications. . Hypothyroidism - pt with chronic hypothyroidism, [...] incontinence - sample of myrbetriq 50mg daily. add z-pack, continue cefdinir - take a [...] Fatigue-check labs including UA-culture if positive Urge vhbhepnyioeb-akpfttpgh-cvrdy UA with C&S . Hypothyroidism - pt with chronic hypothyroidism, [...] improve or if they worsen. [facility]. . Hypertension - well [...] do not improve or if they worsen. [id number] - kenalog Stop Oxybutynin chloride ER. Start [...] is to keep her appointment with her pictures editor for her ECHO and Carotid US. Pt is to follow up with her oncologist. Right shoulder pain after fall - will send for X-ray - The pt is to use prn antiinflammatories to manage acute pain. The patient is to call the office if the pain is worsening or does not improve.
[2019-01-01 11:58] LABS: ERYTHROCYTE SEDIMENTATION RATE 41 MM/HR (0-30)
--- OUTSIDE RECORDS SUMMARY | 2019-01-01 12:04 | XMS REPORT | CCD ---
Author Author [facility] Organization [facility] Address [address] [place] [address] Phone Care Team Providers Care Baker Helper Name Role Phone PP Unavailable CCM Unavailable Summary Purpose Interface Exchange Insurance Providers Payer name Policy type / Coverage type Covered libertarian ID Effective Begin Date Effective End Date WPS Medicare Part B Medicare Part B [id number] Unknown Unknown [facility] Medicare Part B [id number] Unknown Unknown Family history Father Diagnosis Age At Onset Cancer Unknown Arthritis Unknown Mother Diagnosis Age At Onset Breast cancer Unknown Arthritis Unknown Social History Social History Element Codes Description Effective Dates Alcohol history Unknown occasionally drinks alcohol 06/08/2018 Frequency of drinks SNOMED CT: 083624049 Drinks rarely 06/08/2018 Marital status Unknown 01/11/2015 Number of children Unknown 3 01/11/2015 Employment Unknown Retired 01/11/[address]: 6480153 Quit over 10 years ago 1950 01/11/[address]: 148533199 Never drinks alcohol 01/11/2015 Allergies, Adverse Reactions, Alerts Substance Reaction Codes Entered Date Inactivated Date Status * OTHER REACTION - SEE ANSWER BOX vancogein red Unknown 01/11/2015 No Inactive Date Active CODEINE RxNorm: 2670 01/11/2015 No Inactive Date Active demerol RxNorm: 153650 08/30/2015 No Inactive Date Active hydrocodone Unknown [...] ICD-9: 401.1 ICD-10: I10 Active 11/13/2016 Unknown Other fatigue ICD-9: 780.79 ICD-10: R53.83 Active 04/02/2016 Unknown Other insomnia ICD-9: 327.09 ICD-10: G47.09 Active 06/29/2018 Unknown Encounter for general adult medical examination with abnormal findings ICD-9: V70.0 ICD-10: Z00.01 Active 06/08/2018 Unknown Localized edema ICD-9: 782.3 ICD-10: R60.0 Active 08/05/2017 Unknown assisted (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 of anticoagulants ICD-9: V58.61 [...] ICD-9: 780.79 ICD-10: R53.1 Active 05/11/2017 Unknown Chronic systolic (congestive) heart failure ICD-9: 428.22 ICD-10: I50.22 Active 10/12/2017 Unknown Pneumonia due to other specified bacteria [...] hypertension ICD-9: 401.1 ICD-10: I10 11/13/2016 Active Other fatigue ICD-9: 780.79 ICD-10: R53.83 [...] Weakness ICD-9: 780.79 ICD-10: R53.1 05/11/2017 Active Chronic systolic (congestive) heart failure ICD-9: 428.22 ICD-10: I50.22 10/12/2017 Active Pneumonia due to other specified bacteria [...] Fill Instructions Synthroid 175 mcg tablet RxNorm: 750137 1 Tablet(s) PO daily 09/30/2018 02/26/2019 Active this is an update on the dose - she is to take this daily - hold off on the 200mcg pills for now Synthroid 175 mcg tablet RxNorm: 905124 1 Tablet(s) PO 5 times weekly 09/30/2018 09/29/2018 Inactive alternate with 175mcg order losartan 25 mg tablet RxNorm: 409068 TAKE 1 TABLET BY MOUTH ONCE DAILY 08/30/2018 No Stop Date Active Myrbetriq 50 mg tablet,extended release RxNorm: 3875915 1 Tablet(s) PO daily 08/24/2018 12/21/2018 Active Synthroid 175 mcg tablet RxNorm: 203038 1 Tablet(s) PO 4 times a week Thu07/20/2018 09/29/2018 Inactive alternate with 175mcg order Synthroid 200 mcg tablet RxNorm: 338051 Tablet(s) TAKE ONE TABLET BY MOUTH ON THURSDAY, Thursday07/20/2018 09/29/2018 Inactive pantoprazole 40 mg tablet,delayed release RxNorm: 296298 TAKE ONE TABLET BY MOUTH TWICE DAILY 07/19/2018 No Stop Date Active furosemide 40 mg tablet RxNorm: 635337 1 Tablet(s) PO 2 times weekly with song butler 07/13/2018 No Stop Date Active Synthroid 200 mcg tablet RxNorm: 268538 TAKE ONE TABLET BY MOUTH ON THURSDAY, THURSDAY, AND Thursday07/13/2018 07/19/2018 Inactive Vitamin D3 400 unit capsule RxNorm: 454746 1 Capsule(s) PO daily 06/17/2018 No Stop Date Active Aspirin Low Dose 81 mg tablet,delayed release RxNorm: 948367 1 Tablet(s) PO BIW on Thursday and Thursday06/17/2018 No Stop Date Active biotin 1,000 mcg chewable tablet RxNorm: 3512162 1 Tablet(s) PO daily 06/17/2018 No Stop Date Active Vitamin B-12 500 mcg tablet RxNorm: 493649 1 Tablet(s) PO daily 06/17/2018 No Stop Date Active Colace 100 mg capsule RxNorm: 4623302 1 Capsule(s) PO QHS 06/08/2018 No Stop Date Active Coumadin 3 mg tablet RxNorm: 881676 1 Tablet(s) PO daily x5 days and 2 mg x2 days -Managed by Dr. Bowman 06/08/2018 No Stop Date Active Keflex 500 mg capsule RxNorm: 177791 1 Capsule(s) PO TID 05/25/2018 05/31/2018 Inactive metoprolol succinate ER 100 mg tablet,extended release 24 hr RxNorm: 412299 Tablet(s) TAKE ONE TABLET BY MOUTH ONCE DAILY 05/19/2018 No Stop Date Active Coumadin 3 mg tablet RxNorm: 206427 1 Tablet(s) PO daily -Managed by Dr. Bowman 05/04/2018 06/07/2018 Inactive Synthroid 175 mcg tablet RxNorm: 168791 TAKE 1 TABLET BY MOUTH ONCE DAILY 04/06/2018 06/07/2018 Inactive cyclobenzaprine 5 mg tablet RxNorm: 869692 1/2 Tablet(s) PO TID 04/06/2018 04/15/2018 Inactive Synthroid 200 mcg tablet RxNorm: 466141 1 Tablet(s) PO TIW [facility] 04/05/2018 07/12/2018 Inactive brand name only- Alternate with 175mcg dose schedule Synthroid 175 mcg tablet RxNorm: 576805 1 Tablet(s) PO 4 times a week Thu04/05/2018 07/19/2018 Inactive alternate with 175mcg order cyclobenzaprine 5 mg tablet RxNorm: 279917 1/2 Tablet(s) PO TID 03/23/2018 04/01/2018 Inactive tramadol 50 mg tablet RxNorm: 717099 1 Tablet(s) PO TID as needed 03/17/2018 No Stop Date Active Kenalog 40 mg/mL suspension for injection RxNorm: 3230932 2 Milliliter(s) Inj 03/12/2018 03/12/2018 Inactive prednisone 20 mg tablet RxNorm: 446764 2 Tablet(s) PO daily 03/11/2018 03/10/2018 Inactive prednisone 20 mg tablet RxNorm: 187162 2 Tablet(s) PO daily 03/11/2018 03/15/2018 Inactive losartan 25 mg tablet RxNorm: 960549 TAKE ONE TABLET BY MOUTH ONCE DAILY 02/16/2018 08/29/2018 Inactive doxycycline hyclate 100 mg tablet RxNorm: 4274970 1 Tablet(s) PO BID 02/08/2018 02/14/2018 Inactive ceftriaxone 500 mg solution for injection RxNorm: 8180334 Inj 02/08/2018 02/08/2018 Inactive dapsone 25 mg tablet RxNorm: 047739 2 Tablet(s) PO daily 02/08/2018 02/12/2018 Inactive metoprolol succinate ER 100 mg tablet,extended release 24 hr RxNorm: 782813 TAKE ONE TABLET BY MOUTH ONCE DAILY 01/05/2018 05/18/2018 Inactive Synthroid 175 mcg tablet RxNorm: 913539 1 Tablet(s) PO daily 01/01/2018 03/31/2018 Inactive Synthroid 175 mcg tablet RxNorm: 821581 1 Tablet(s) PO daily 01/01/2018 12/31/2017 Inactive Myrbetriq 50 mg tablet,extended release RxNorm: 0998100 1 Tablet(s) PO daily 12/03/2017 01/01/2018 Inactive Zithromax Z-Oliver 250 mg tablet RxNorm: 612097 1 Tablet(s) PO UD 10/12/2017 10/16/2017 Inactive Tessalon Perles 100 mg capsule RxNorm: 879582 2 Capsule(s) PO TID as needed 10/12/2017 10/16/2017 Inactive prednisone 20 mg tablet RxNorm: 884512 2 Tablet(s) PO daily 10/12/2017 10/16/2017 Inactive cefdinir 300 mg capsule RxNorm: 570912 1 Capsule(s) PO BID 10/08/2017 10/07/2017 Inactive Synthroid 150 mcg tablet RxNorm: 692955 1 Tablet(s) PO daily in morning, except 1/2 Tablet PO Wed, Sat, take 30 minutes before meal 10/08/2017 04/04/2018 Inactive brand name only cefdinir 300 mg capsule RxNorm: 017855 1 Capsule(s) PO BID 10/08/2017 10/14/2017 Inactive Synthroid 150 mcg tablet RxNorm: 024087 1 Tablet(s) PO daily in morning, take 30 minutes before meal 10/06/2017 10/07/2017 Inactive brand name only cefdinir 300 mg capsule RxNorm: 403047 1 Capsule(s) PO BID 08/24/2017 08/30/2017 Inactive Zithromax Z-Oliver 250 mg tablet RxNorm: 624040 1 Tablet(s) PO UD 08/20/2017 08/19/2017 Inactive Zithromax Z-Oliver 250 mg tablet RxNorm: 025351 1 Tablet(s) PO UD 08/20/2017 08/24/2017 Inactive Synthroid 150 mcg tablet RxNorm: 848765 1 Tablet(s) PO daily in morning, take 30 minutes before meal 08/05/2017 08/04/2017 Inactive Synthroid 150 mcg tablet RxNorm: 853919 1 Tablet(s) PO daily in morning, take 30 minutes before meal 08/05/2017 10/05/2017 Inactive Coumadin 3 mg tablet RxNorm: 196287 1 Tablet(s) PO Thursday, , , and Thu- Managed by Dr. Bowman -Managed by Dr. Bowamn 08/05/2017 05/03/2018 Inactive pantoprazole 40 mg tablet,delayed release RxNorm: 476994 1 Tablet(s) PO BID 07/08/2017 07/02/2018 Inactive pantoprazole 40 mg tablet,delayed release RxNorm: 211533 1 Tablet(s) PO BID 07/08/2017 07/07/2017 Inactive metoprolol succinate ER 100 mg tablet,extended release 24 hr RxNorm: 341192 TAKE ONE TABLET BY MOUTH ONCE DAILY 07/08/2017 01/04/2018 Inactive Coumadin 3 mg tablet RxNorm: 034646 1 Tablet(s) PO QPM -Managed by Dr. Bowman 07/06/2017 08/04/2017 Inactive Coumadin 3 mg tablet RxNorm: 596877 1 Tablet(s) PO QPM at 6:00pm Managed by Dr Bowman 1/2 pill on thursday and thursday, full pill other days 06/18/2017 07/05/2017 Inactive Voltaren 1 % topical gel RxNorm: 705958 2 TOP QID 06/18/2017 10/15/2017 Inactive Micro-K 10 10 mEq capsule,extended release RxNorm: 730678 1 Capsule(s) PO daily 05/08/2017 12/02/2017 Inactive Synthroid 137 mcg tablet RxNorm: 931114 1 Tablet(s) PO QAM 05/08/2017 08/04/2017 Inactive Dose increased 04/14/17 pravastatin 10 mg tablet RxNorm: 791736 1 Tablet(s) PO daily TAKE ONE TABLET BY MOUTH ONCE DAILY 05/08/2017 12/02/2017 Inactive losartan 25 mg tablet RxNorm: 327696 1 Tablet(s) PO daily TAKE ONE TABLET BY MOUTH ONCE DAILY 05/08/2017 06/07/2018 Inactive Namenda 10 mg tablet RxNorm: 857276 TAKE ONE TABLET BY MOUTH TWICE DAILY 05/07/2017 12/02/2017 Inactive Keflex 500 mg capsule RxNorm: 460131 1 Capsule(s) PO TID 04/27/2017 05/03/2017 Inactive Synthroid 137 mcg tablet RxNorm: 610955 1 Tablet(s) PO QAM 04/14/2017 04/13/2017 Inactive Vitamin D2 50,000 unit capsule RxNorm: 905092 1 Capsule(s) PO QW 04/14/2017 12/02/2017 Inactive Synthroid 137 mcg tablet RxNorm: 525742 1 Tablet(s) PO QAM 04/14/2017 05/07/2017 Inactive losartan 25 mg tablet RxNorm: 923688 TAKE ONE TABLET BY MOUTH ONCE DAILY 03/23/2017 05/07/2017 Inactive Synthroid 125 mcg tablet RxNorm: 744500 TAKE ONE TABLET BY MOUTH ONCE DAILY 03/12/2017 04/12/2017 Inactive ciprofloxacin 500 mg tablet RxNorm: 297108 1 Tablet(s) PO BID 2017 03/13/2017 Inactive prednisone 20 mg tablet RxNorm: 956320 2 Tablet(s) PO daily 03/03/2017 03/07/2017 Inactive tramadol 50 mg tablet RxNorm: 764145 1/2 Tablet(s) PO TID as needed 03/03/2017 12/02/2017 Inactive pravastatin 10 mg tablet RxNorm: 946849 TAKE ONE TABLET BY MOUTH ONCE DAILY 01/19/2017 05/07/2017 Inactive nortriptyline 10 mg capsule RxNorm: 556824 TAKE ONE CAPSULE BY MOUTH ONCE DAILY IN THE EVENING 01/14/2017 12/02/2017 Inactive Voltaren 1 % topical gel RxNorm: 968931 TOP QID 12/22/2016 02/19/2017 Inactive Voltaren 1 % topical gel RxNorm: 603378 TOP QID 12/22/2016 12/21/2016 Inactive prednisone 20 mg tablet RxNorm: 500688 2 Tablet(s) PO daily 12/19/2016 12/23/2016 Inactive cyclobenzaprine 5 mg tablet RxNorm: 933937 1/2 Tablet(s) PO BID as needed 12/19/2016 12/23/2016 Inactive Flector 1.3 % transdermal 12 hour patch RxNorm: 669306 1 Patch TOP every 12 hours as needed 12/19/2016 12/02/2017 Inactive losartan 25 mg tablet RxNorm: 501869 1 Tablet(s) PO daily TAKE ONE TABLET BY MOUTH ONCE DAILY 11/13/2016 03/22/2017 Inactive Namenda 10 mg tablet RxNorm: 715415 TAKE ONE TABLET BY MOUTH TWICE DAILY 10/28/2016 04/25/2017 Inactive nortriptyline 10 mg capsule RxNorm: 492944 TAKE ONE CAPSULE BY MOUTH ONCE DAILY IN THE EVENING 10/13/2016 01/10/2017 Inactive ceftriaxone 500 mg solution for injection RxNorm: 7333955 Inj 10/06/2016 10/06/2016 Inactive cefdinir 300 mg capsule RxNorm: 029541 1 Capsule(s) PO BID 10/06/2016 10/12/2016 Inactive prednisone 20 mg tablet RxNorm: 894823 2 Tablet(s) PO daily 10/06/2016 10/08/2016 Inactive ProAir RespiClick 90 mcg/actuation breath activated RxNorm: 4141865 2 INH TID x 3 days then one inhale tid x 3 days then prn shortness of breath 10/06/2016 11/04/2016 Inactive Kenalog 40 mg/mL suspension for injection RxNorm: 9201159 1 Milliliter(s) Inj 10/06/2016 10/06/2016 Inactive Myrbetriq 50 mg tablet,extended release RxNorm: 7456887 1 Tablet(s) PO daily 09/11/2016 11/12/2016 Inactive Namenda 10 mg tablet RxNorm: 274445 TAKE ONE TABLET BY MOUTH TWICE DAILY 07/25/2016 10/22/2016 Inactive hydrochlorothiazide 25 mg tablet RxNorm: 096098 1 Tablet(s) PO daily 07/25/2016 12/02/2017 Inactive Synthroid 125 mcg tablet RxNorm: 425304 TAKE ONE TABLET BY MOUTH ONCE DAILY 07/14/2016 03/10/2017 Inactive losartan 25 mg tablet RxNorm: 488022 TAKE ONE TABLET BY MOUTH ONCE DAILY 07/07/2016 11/12/2016 Inactive metoprolol succinate ER 100 mg tablet,extended release 24 hr RxNorm: 720639 1 Tablet(s) PO daily 06/16/2016 06/10/2017 Inactive nortriptyline 10 mg capsule RxNorm: 414417 Capsule(s) TAKE ONE CAPSULE BY MOUTH ONCE DAILY IN THE EVENING 06/09/2016 10/06/2016 Inactive Myrbetriq 50 mg tablet,extended release RxNorm: 3910410 1 Tablet(s) PO daily 05/21/2016 09/10/2016 Inactive doxycycline hyclate 100 mg tablet RxNorm: 638943 1 Tablet(s) PO BID 05/07/2016 05/13/2016 Inactive Carafate 100 mg/mL oral suspension RxNorm: 386343 10 Milliliter(s) PO QID 05/07/2016 12/02/2017 Inactive Kenalog 40 mg/mL suspension for injection RxNorm: 6599663 Milliliter(s) Inj 04/28/2016 04/28/2016 Inactive losartan 25 mg tablet RxNorm: 602581 TAKE ONE TABLET BY MOUTH ONCE DAILY 04/08/2016 07/06/2016 Inactive ciprofloxacin 500 mg tablet RxNorm: 461770 1 Tablet(s) PO BID 04/07/2016 04/13/2016 Inactive cyclobenzaprine 5 mg tablet RxNorm: 849251 1 Tablet(s) PO TID 04/07/2016 04/16/2016 Inactive Keflex 500 mg capsule RxNorm: 813052 1 Capsule(s) PO TID 04/03/2016 04/02/2016 Inactive Keflex 500 mg capsule RxNorm: 242021 1 Capsule(s) PO TID 04/03/2016 04/09/2016 Inactive losartan 25 mg tablet RxNorm: 188333 TAKE ONE TABLET BY MOUTH ONCE DAILY 03/06/2016 04/07/2016 Inactive nortriptyline 10 mg capsule RxNorm: 479041 TAKE ONE CAPSULE BY MOUTH ONCE DAILY IN THE EVENING 03/06/2016 06/03/2016 Inactive pravastatin 10 mg tablet RxNorm: 374792 TAKE ONE TABLET BY MOUTH ONCE DAILY 02/04/2016 01/18/2017 Inactive warfarin 4 mg tablet RxNorm: 419333 Tablet(s) PO q d except 5mg on tue 01/31/2016 06/17/2017 Inactive Myrbetriq 50 mg tablet,extended release RxNorm: 7146317 1 Tablet(s) PO daily 01/17/2016 05/15/2016 Inactive Namenda 10 mg tablet RxNorm: 837062 1 Tablet(s) PO BID 01/01/2016 06/28/2016 Inactive Myrbetriq 50 mg tablet,extended release RxNorm: 9858594 1 Tablet(s) PO daily 12/20/2015 12/20/2015 Inactive Synthroid 125 mcg tablet RxNorm: 433509 1 Tablet(s) PO daily 11/14/2015 07/10/2016 Inactive nortriptyline 10 mg capsule RxNorm: 120212 TAKE ONE CAPSULE BY MOUTH ONCE DAILY IN THE EVENING 11/05/2015 03/03/2016 Inactive Myrbetriq 50 mg tablet,extended release RxNorm: 9646750 1 Tablet(s) PO daily 10/01/2015 12/19/2015 Inactive Namenda 10 mg tablet RxNorm: 261780 1 Tablet(s) PO BID 08/30/2015 12/31/2015 Inactive Vesicare 10 mg tablet RxNorm: 116724 1 Tablet(s) PO daily 08/30/2015 09/30/2015 Inactive warfarin 4 mg tablet RxNorm: 758365 Tablet(s) PO 08/30/2015 01/30/2016 Inactive Synthroid 125 mcg tablet RxNorm: 806647 1 Tablet(s) PO daily 08/02/2015 11/13/2015 Inactive Synthroid 125 mcg tablet RxNorm: 724723 Tablet(s) PO 08/01/2015 08/01/2015 Inactive losartan 25 mg tablet RxNorm: 672588 1 Tablet(s) PO daily 07/31/2015 02/25/2016 Inactive pravastatin 10 mg tablet RxNorm: 092005 1 Tablet(s) PO daily 07/23/2015 01/18/2016 Inactive hydrochlorothiazide 25 mg tablet RxNorm: 318681 1 Tablet(s) PO daily 07/19/2015 07/12/2016 Inactive nortriptyline 10 mg capsule RxNorm: 724918 1 Capsule(s) PO QPM 07/03/2015 10/30/2015 Inactive metoprolol succinate ER 100 mg tablet,extended release 24 hr RxNorm: 801845 1 Tablet(s) PO daily 06/06/2015 05/30/2016 Inactive pravastatin 10 mg tablet RxNorm: 418858 1 Tablet(s) PO daily 01/22/2015 07/20/2015 Inactive aspirin 81 mg capsule,delayed release RxNorm: 631302 1 Capsule(s) PO daily 01/11/2015 02/09/2015 Inactive Fosamax 5 mg tablet RxNorm: 054896 1 Tablet(s) QW 01/11/2015 12/02/2017 Inactive oxybutynin chloride ER 10 mg tablet,extended release 24 hr RxNorm: 041764 1 Tablet(s) PO daily 01/11/2015 08/29/2015 Inactive Fosamax 70 mg tablet RxNorm: 974198 1 Tablet(s) PO QW No Start Date Active Claritin oral RxNorm: 16169 oral No Start Date Active Centrum oral RxNorm: oral No Start Date Active Calcium 600 + D(3) oral RxNorm: 310193 oral No Start Date Active Coumadin 4 mg tablet RxNorm: 605662 1 Tablet(s) PO daily on M,W,F No Start Date 06/07/2018 Inactive Vitamin D3 oral RxNorm: oral No Start Date 06/16/2018 Inactive pravastatin 10 mg tablet RxNorm: 108182 1 Tablet(s) PO daily No Start Date 01/21/2015 Inactive Aspirin Low Dose 81 mg tablet,delayed release RxNorm: 367464 1 Tablet(s) PO BIW on Thursday and Thursday No Start Date 06/16/2018 Inactive Tylenol PM oral RxNorm: 727500 oral No Start Date 04/07/2017 Inactive Vitamin D2 oral RxNorm: 4018 oral No Start Date 06/08/2018 Inactive Vitamin D2 50,000 unit capsule RxNorm: 900210 1 Capsule(s) PO QW No Start Date 04/13/2017 Inactive tramadol 50 mg tablet RxNorm: 049796 1 Tablet(s) PO TID as needed No Start Date 03/16/2018 Inactive Colace 100 mg capsule RxNorm: 6018244 Capsule(s) PO No Start Date 06/07/2018 Inactive furosemide 40 mg tablet RxNorm: 805946 1 Tablet(s) PO daily as needed No Start Date 07/12/2018 Inactive biotin oral RxNorm: oral No Start Date 06/16/2018 Inactive Micro-K 10 10 mEq capsule,extended release RxNorm: 216324 1 Capsule(s) PO daily No Start Date 05/07/2017 Inactive Synthroid 100 mcg tablet RxNorm: 887176 Tablet(s) PO No Start Date 07/31/2015 Inactive Vitamin B-12 oral RxNorm: oral No Start Date 06/16/2018 Inactive PreserVision AREDS 2 oral RxNorm: 9421349 oral No Start Date 06/07/2018 Inactive hydrochlorothiazide 25 mg tablet RxNorm: 013824 1 Tablet(s) PO daily No Start Date 07/18/2015 Inactive warfarin 2 mg tablet RxNorm: 382921 Tablet(s) PO No Start Date 08/29/2015 Inactive metoprolol succinate ER 100 mg tablet,extended release 24 hr RxNorm: 409119 1 Tablet(s) PO daily No Start Date 06/05/2015 Inactive warfarin 3 mg tablet RxNorm: 157134 Tablet(s) PO No Start Date 08/29/2015 Inactive Coumadin 3 mg tablet RxNorm: 245325 1 Tablet(s) PO QPM at 6:00pm Managed by Dr Bowman No Start Date 06/17/2017 Inactive Myrbetriq 50 mg tablet,extended release RxNorm: 6283956 1 Tablet(s) PO daily No Start Date 08/23/2018 Inactive Medication Administered Medication Codes Instructions Start Date Status Kenalog 40 mg/mL suspension for injection RxNorm: 6794592 2Milliliter 03/12/2018 No longer Active ceftriaxone 500 mg solution for injection RxNorm: 3088899 02/08/2018 No longer Active Kenalog 40 mg/mL suspension for injection RxNorm: 2088438 1Milliliter 10/06/2016 No longer Active ceftriaxone 500 mg solution for injection RxNorm: 0519893 10/06/2016 No longer Active Kenalog 40 mg/mL suspension for injection RxNorm: 4985890 Milliliter 04/28/2016 No longer Active Immunizations Vaccine Codes Date Status SHINGARIX CVX: 121 09/07/2018 completed SHINGARIX CVX: 121 06/08/2018 completed Influenza CVX: 141 05/20/2018 completed Influenza CVX: 141 06/18/2017 completed Influenza CVX: 141 06/10/2016 completed Pneumococcal CVX: 133 05/29/2016 completed Influenza CVX: 141 07/03/2015 completed Assessments Condition Codes Effective Dates Other specified noninflammatory disorders of vagina ICD-10: N89.8 ICD-9: 623.9 11/01/2018 Dysuria ICD-10: R30.0 ICD-9: 788.1 11/01/2018 Atrophy of thyroid (acquired) ICD-10: E03.4 ICD-9: 244.8 09/30/2018 Essential (primary) hypertension ICD-10: I10 ICD-9: 401.1 09/30/2018 Other fatigue ICD-10: R53.83 ICD-9: 780.79 06/29/2018 Other insomnia ICD-10: G47.09 ICD-9: 327.09 06/29/2018 Encounter for general adult medical examination with abnormal findings ICD-10: Z00.01 ICD-9: V70.0 06/08/2018 Localized edema ICD-10: R60.0 ICD-9: 782.3 05/24/2018 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 ICD-10: Z79.01 ICD-9: [...] specified bacteria ICD-10: J15.8 ICD-9: 482.81 10/12/2017 Chronic systolic (congestive) heart failure ICD-10: I50.22 ICD-9: 428.22 10/12/2017 Nonscarring hair loss, unspecified ICD-10: L65.9 [...] Visit Reason For Visit Effective Dates Notes vaginal bleeding 11/01/2018 hypertension 09/30/2018 neck pain [...] NO Growth Day 2 05/27/2018 Comp Metabolic Xqq051 NA 142 mEq/L 05/24/2018 Comp Metabolic Vql412 K 4.0 mEq/L 05/24/2018 Comp Metabolic Fxw751 CL 104 mEq/L 05/24/2018 Comp Metabolic Pvd474 CO2 30.0 mEq/L 05/24/2018 Comp Metabolic Qdm877 ANION GAP 12 05/24/2018 Comp Metabolic Qpz357 GLUCOSE 94 mg/dL 05/24/2018 Comp Metabolic Ihw515 Creat 0.6 mg/dL 05/24/2018 Comp Metabolic Max126 eGFR 97 ml/min/1.73m2 05/24/2018 Comp Metabolic Bhf346 BUN 12 mg/dL 05/24/2018 Comp Metabolic Zbd702 B/C Ratio 19.4 Ratio 05/24/2018 Comp Metabolic Xlz287 CALCIUM 8.8 mg/dL 05/24/2018 Comp Metabolic Ldq719 ALK PHOS 135 U/L 05/24/2018 Comp Metabolic Iox292 AST(SGOT) 18 U/L 05/24/2018 Comp Metabolic Zhd509 ALT(SGPT) 16 U/L 05/24/2018 Comp Metabolic Dcy643 BILI T 0.4 mg/dL 05/24/2018 Comp Metabolic Mis032 ALBUMIN 3.9 g/dL 05/24/2018 Comp Metabolic Bgu060 TPRO 6.0 g/dL 05/24/2018 Comp Metabolic Ukl381 GLOB 2.1 g/dL 05/24/2018 Comp Metabolic Vot985 A/G Ratio 1.8 Ratio 05/24/2018 Comp Metabolic Nql982 Osmo 283 mOsmo 05/24/2018 Pt Uur6585 PT 28.2 seconds 05/24/2018 Pt Dzd7258 INR 2.6 05/24/2018 Pt Vdu1129 Low Intensity - 1.5-2.0 05/24/2018 Pt Cgh3656 Mod intensity - 2.0-3.0 05/24/2018 Pt Ima8339 Hi intensity - 3.0-4.0 05/24/2018 Cbc With [...] 29.7 pg 05/24/2018 Cbc With Differential Ord2 [place]% 7.0 % 05/24/2018 Cbc With Differential Ord2 [...] 1.54 K/ul 05/24/2018 Cbc With Differential Ord2 [place] ABS# 0.5 K/ul 05/24/2018 Cbc With Differential Ord2 Eos ABS# 0.4 K/ul 05/24/2018 Cbc With Differential Ord2 Baso ABS# 0.0 K/ul 05/24/2018 Tsh Ord6 TSH (3rd IS) 3.19 uIU/mL 10/06/2017 Free T4 Pvh017 FREE T4 1.64 ng/dL 10/06/2017 Free T4 Dkz293 FREE T4 1.03 ng/dL 08/05/2017 Tsh Ord6 [...] Ord30 C/HDL 3.7 Ratio 04/09/2017 Free T4 Fin582 FREE T4 0.97 ng/dL 04/09/2017 Tibc Ord40 Iron 36 ug/dl 04/09/2017 Tibc Ord40 UIBC 281 ug/dL 04/09/2017 Tibc Ord40 TIBC 317 ug/dL 04/09/2017 Tibc Ord40 Fe-%Sat 11.4 % 04/09/2017 Comp Metabolic Yrn096 NA 136 mEq/L 04/09/2017 Comp Metabolic Pao543 K 3.9 mEq/L 04/09/2017 Comp Metabolic Yfe216 CL 98 mEq/L 04/09/2017 Comp Metabolic Vcg883 CO2 28.0 mEq/L 04/09/2017 Comp Metabolic Rgo042 ANION GAP 14 04/09/2017 Comp Metabolic Ajq105 GLUCOSE 90 mg/dL 04/09/2017 Comp Metabolic Zyq553 Creat 0.6 mg/dL 04/09/2017 Comp Metabolic Mqn303 eGFR 102 ml/min/1.73m2 04/09/2017 Comp Metabolic Ciw400 BUN 9 mg/dL 04/09/2017 Comp Metabolic Xos773 B/C Ratio 15.3 Ratio 04/09/2017 Comp Metabolic Fnj017 CALCIUM 8.8 mg/dL 04/09/2017 Comp Metabolic Uya733 ALK PHOS 102 U/L 04/09/2017 Comp Metabolic Fbo884 AST(SGOT) 18 U/L 04/09/2017 Comp Metabolic Cwa087 ALT(SGPT) 14 U/L 04/09/2017 Comp Metabolic Ugu237 BILI T 0.4 mg/dL 04/09/2017 Comp Metabolic Khh795 ALBUMIN 3.9 g/dL 04/09/2017 Comp Metabolic Mzf014 TPRO 6.3 g/dL 04/09/2017 Comp Metabolic Urr029 GLOB 2.4 g/dL 04/09/2017 Comp Metabolic Mbh842 A/G Ratio 1.7 Ratio 04/09/2017 Comp Metabolic Cpy531 Osmo 270 mOsmo 04/09/2017 Vitamin D 25 Oh Ehc2232 VITAMIN D, 25 HYDROXY 34.31 ng/mL 04/09/2017 [...] 28.9 pg 04/09/2017 Cbc With Differential Ord2 [place]% 8.8 % 04/09/2017 Cbc With Differential Ord2 [...] 1.22 K/ul 04/09/2017 Cbc With Differential Ord2 [place] ABS# 0.7 K/ul 04/09/2017 Cbc With Differential Ord2 Eos ABS# 0.1 K/ul 04/09/2017 Cbc With Differential Ord2 Baso ABS# 0.0 K/ul 04/09/2017 Urine Culture Ucult Complete >100,000 col/ml aerobic growth sent to ref lab 03/05/2017 Pt Zam2141 PT 24.2 seconds 04/14/2016 Pt Arj6080 INR 2.3 04/14/2016 Pt Nxy3858 Low Intensity - 1.5-2.0 04/14/2016 Pt Vkn6566 Mod intensity - 2.0-3.0 04/14/2016 Pt Upo4613 Hi intensity - 3.0-4.0 04/14/2016 Pt Kqt8027 PT 31.3 seconds 04/10/2016 Pt Lkx5630 INR 3.3 04/10/2016 Pt Oup2939 Low Intensity - 1.5-2.0 04/10/2016 Pt Nrt8181 Mod intensity - 2.0-3.0 04/10/2016 Pt Vdx3044 Hi intensity - 3.0-4.0 04/10/2016 C RAP A SC [id number] Strep A Negative 04/10/2016 Urine Culture Ucult Complete >100,000 col/ml aerobic growth sent to ref lab 04/04/2016 Comp Metabolic Xxr957 NA 136 mEq/L 04/03/2016 Comp Metabolic Wvk379 K 3.9 mEq/L 04/03/2016 Comp Metabolic Pxh592 CL 99 mEq/L 04/03/2016 Comp Metabolic Eac810 CO2 32.0 mEq/L 04/03/2016 Comp Metabolic Dvr436 ANION GAP 9 04/03/2016 Comp Metabolic Jjp499 GLUCOSE 88 mg/dL 04/03/2016 Comp Metabolic Aww259 Creat 0.6 mg/dL 04/03/2016 Comp Metabolic Uta323 eGFR 93 ml/min/1.73m2 04/03/2016 Comp Metabolic Vjr817 BUN 15 mg/dL 04/03/2016 Comp Metabolic Cio188 B/C Ratio 23.4 Ratio 04/03/2016 Comp Metabolic Jfb254 CALCIUM 8.7 mg/dL 04/03/2016 Comp Metabolic Pxf998 ALK PHOS 100 U/L 04/03/2016 Comp Metabolic Aag314 AST(SGOT) 28 U/L 04/03/2016 Comp Metabolic Eqi413 ALT(SGPT) 39 U/L 04/03/2016 Comp Metabolic Rxw425 BILI T 0.5 mg/dL 04/03/2016 Comp Metabolic Sbl967 ALBUMIN 4.1 g/dL 04/03/2016 Comp Metabolic Cll373 TPRO 6.6 g/dL 04/03/2016 Comp Metabolic Lef364 GLOB 2.5 g/dL 04/03/2016 Comp Metabolic Mzp625 A/G Ratio 1.7 Ratio 04/03/2016 Comp Metabolic Rbx134 Osmo 272 mOsmo 04/03/2016 Cbc With Differential [...] 29.0 pg 04/03/2016 Cbc With Differential Ord2 [place]% 11.3 % 04/03/2016 Cbc With Differential Ord2 [...] 1.15 K/ul 04/03/2016 Cbc With Differential Ord2 [place] ABS# 0.8 K/ul 04/03/2016 Cbc With Differential Ord2 Eos ABS# 0.2 K/ul 04/03/2016 Cbc With Differential Ord2 Baso ABS# 0.0 K/ul 04/03/2016 Tsh Ord6 hTSH II 3.06 uIU/mL 04/03/2016 Free T4 Iez363 FREE T4 0.99 ng/dL 04/03/2016 Free T4 Fld985 FREE T4 0.81 ng/dL 07/31/2015 Comp Metabolic Ege413 NA 136 mEq/L 07/31/2015 Comp Metabolic Fuq740 K 3.8 mEq/L 07/31/2015 Comp Metabolic Bwr052 CL 97 mEq/L 07/31/2015 Comp Metabolic Wff431 CO2 29.0 mEq/L 07/31/2015 Comp Metabolic Sxj603 ANION GAP 14 07/31/2015 Comp Metabolic Afn802 GLUCOSE 90 mg/dL 07/31/2015 Comp Metabolic Azj225 Creat 0.7 mg/dL 07/31/2015 Comp Metabolic Vzt446 eGFR 80 ml/min/1.73m2 07/31/2015 Comp Metabolic Ebw831 BUN 8 mg/dL 07/31/2015 Comp Metabolic Yzv526 B/C Ratio 11.0 Ratio 07/31/2015 Comp Metabolic Ozv775 CALCIUM 8.9 mg/dL 07/31/2015 Comp Metabolic Vvw918 ALK PHOS 102 U/L 07/31/2015 Comp Metabolic Nij195 AST(SGOT) 22 U/L 07/31/2015 Comp Metabolic Jhq992 ALT(SGPT) 14 U/L 07/31/2015 Comp Metabolic Zgz766 BILI T 0.5 mg/dL 07/31/2015 Comp Metabolic Xpi810 ALBUMIN 4.4 g/dL 07/31/2015 Comp Metabolic Ako549 TPRO 6.7 g/dL 07/31/2015 Comp Metabolic Bgl353 GLOB 2.3 g/dL 07/31/2015 Comp Metabolic Ycj255 A/G Ratio 1.9 Ratio 07/31/2015 Comp Metabolic Dne280 Osmo 270 mOsmo 07/31/2015 Tsh Ord6 hTSH [...] Lipid Ord30 C/HDL 4.8 Ratio 07/31/2015 Pt Anh4346 PT 31.9 seconds 07/03/2015 Pt Ecu3500 INR 3.2 07/03/2015 Pt Pgk0302 Low Intensity - 1.5-2.0 07/03/2015 Pt Dyk2266 Mod intensity - 2.0-3.0 07/03/2015 Pt Jur7709 Hi intensity - 3.0-4.0 07/03/2015 Review of Systems System Result Effective Dates Constitutional No recent illness 11/01/2018 Constitutional No [...] clear 12/03/2017 None Full Exam - General 1995 Ears/Nose/Throat [...] 04/27/2017 None Full Exam - General 1995 Respiratory auscultation Overall: breath sounds clear bilaterally [...] masses 04/08/2017 None Full Exam - General 1995 Ears/Nose/Throat external ear Overall: normal mastoids 04/08/2017 None Full Exam - General 1994 Ears/Nose/Throat external nose Overall: benign appearance 04/08/2017 None Full Exam - General 1994 Ears/Nose/Throat external nose Overall: no masses 04/08/2017 None Full Exam - General 1995 Ears/Nose/Throat external nose Overall: non-tender 04/08/2017 None [...] tenderness 04/08/2017 None Full Exam - General 1995 Ears/Nose/Throat internal nose Overall: no drainage 04/08/2017 None Full Exam - General 1994 Ears/Nose/Throat internal nose Overall: nasopharynx benign 04/08/2017 None Full Exam - General 1995 Ears/Nose/Throat lips/teeth/gingiva Overall: benign lips 04/08/2017 None [...] 1995 Ears/Nose/Throat oral cavity/pharynx/larynx Overall: no masses 10/06/2016 [...] Codes Date URINALYSIS NONAUTO W/O SCOPE CPT-4: 42298 11/01/2018 PPPS, SUBSEQ VISIT CPT- 4: G0439 06/08/2018 URINALYSIS NONAUTO W/O SCOPE CPT-4: 42840 05/25/2018 ADMIN INFLUENZA VIRUS VAC CPT-4: G0008 05/20/2018 FLU VACC PRSV FREE INC ANTIG CPT-4: 12943 05/20/2018 DRAIN/INJECT JOINT/BURSA CPT-4: 69210 03/23/2018 TRIAMCINOLONE ACET INJ NOS CPT-4: J3301 03/23/2018 DRAIN/INJECT JOINT/BURSA CPT-4: 00329 03/12/2018 TRIAMCINOLONE ACET INJ NOS CPT-4: J3301 03/12/2018 ROCEPHIN, PER 250 MG CPT- 4: J0696 02/08/2018 ADMIN INFLUENZA VIRUS VAC CPT-4: G0008 06/18/2017 FLU VACC PRSV FREE INC ANTIG CPT-4: 99986 06/18/2017 URINALYSIS NONAUTO W/O SCOPE CPT-4: 67171 04/27/2017 URINALYSIS NONAUTO W/O SCOPE CPT-4: 76216 2017 DRAIN/INJECT JOINT/BURSA CPT-4: 69406 03/03/2017 TRIAMCINOLONE ACET INJ NOS CPT-4: J3301 03/03/2017 TRIAMCINOLONE ACET INJ NOS CPT-4: J3301 10/06/2016 ROCEPHIN, PER 250 MG CPT- 4: J0696 10/06/2016 THER/PROPH/DIAG INJ SC/IM CPT-4: 77945 10/06/2016 TRIAMCINOLONE ACET INJ NOS CPT-4: J3301 04/28/2016 URINALYSIS NONAUTO W/O SCOPE CPT-4: 12372 04/03/2016 ADMIN INFLUENZA VIRUS VAC CPT-4: G0008 07/03/2015 FLU VACC PRSV FREE INC ANTIG CPT-4: 78190 07/03/2015 Vital Signs Date Vital 11/01/2018 Blood Pressure 1: 132/85 Code: 8480-6 BMI: 27.3 Code: 91580-8 Height: 5'6" Weight: 169 lbs 09/30/2018 Blood Pressure 1: 142/80 Code: 8480-6 BMI: 27.3 Code: 46135-0 Heart Rate 1: 84 bpm Height: 5'6" SpO2: 96% Weight: 169 lbs 07/20/2018 Blood Pressure 1: 124/70 Code: 8480-6 Heart Rate 1: 76 bpm Height: SpO2: 95% Weight: 06/29/2018 Blood Pressure 1: 142/80 Code: 8480-6 BMI: 27.8 Code: 96240-4 Heart Rate 1: 89 bpm Height: 5'6" SpO2: 94% Weight: 172 lbs 06/08/2018 Blood Pressure 1: 144/66 Code: 8480-6 BMI: 27.9 Code: 25045-9 Heart Rate 1: 85 bpm Height: 5'6" SpO2: 97% Waist Measure (cm): 97 cm Weight: 173 lbs 05/24/2018 Blood Pressure 1: 128/72 Code: 8480-6 BMI: 27.9 Code: 18784-9 Heart Rate 1: 82 bpm Height: 5'6" SpO2: 92% Weight: 173 lbs 04/06/2018 Blood Pressure 1: 138/88 Code: 8480-6 Heart Rate 1: 86 bpm Height: SpO2: 96% Weight: 03/23/2018 Blood Pressure 1: 150/88 Code: 8480-6 Heart Rate 1: 80 bpm Height: SpO2: 96% Weight: 03/12/2018 Heart Rate 1: 90 bpm Height: Weight: 03/02/2018 Blood Pressure 1: 128/80 Code: 8480-6 BMI: 28.4 Code: 33042-8 Heart Rate 1: 83 bpm Height: 5'6" SpO2: 93% Weight: 176 lbs 02/08/2018 Blood Pressure 1: 142/80 Code: 8480-6 Heart Rate 1: 78 bpm Height: 5'6" SpO2: 94% 12/03/2017 Blood Pressure 1: 124/78 Code: 8480-6 BMI: 27.9 Code: 93124-5 Heart Rate 1: 70 bpm Height: 5'6" SpO2: 97% Weight: 173 lbs 10/27/2017 Blood Pressure 1: 126/60 Code: 8480-6 Heart Rate 1: 65 bpm Height: 5'6" SpO2: 98% Weight: 10/12/2017 Blood Pressure 1: 126/74 Code: 8480-6 BMI: 26.0 Code: 70796-3 Heart Rate 1: 80 bpm Height: 5'6" SpO2: 89% Weight: 161 lbs 10/06/2017 Blood Pressure 1: 126/70 Code: 8480-6 BMI: 27.2 Code: 10555-7 Heart Rate 1: 73 bpm Height: 5'6" SpO2: 97% Weight: 168 lbs 8 oz 08/05/2017 Blood Pressure 1: 152/78 Code: 8480-6 BMI: 27.1 Code: 67090-9 Heart Rate 1: 73 bpm Height: 5'6" SpO2: 98% Weight: 168 lbs 07/06/2017 Blood Pressure 1: 148/70 Code: 8480-6 BMI: 26.6 Code: 49931-1 Heart Rate 1: 80 bpm Height: 5'6" SpO2: 97% Weight: 165 lbs 06/18/2017 Blood Pressure 1: 132/68 Code: 8480-6 BMI: 26.8 Code: 86648-6 Heart Rate 1: 84 bpm Height: 5'6" [...] 1: 162/84 Code: 8480-6 BMI: 28.1 Code: 07377-8 Heart Rate 1: 98 bpm Height: 5'6" SpO2: 97% Weight: 174 lbs 03/03/2017 Blood Pressure 1: 154/88 Code: 8480-6 Heart Rate 1: 96 bpm Height: SpO2: 95% Weight: 01/05/2017 Blood Pressure 1: 142/78 Code: 8480-6 BMI: 28.9 Code: 08941-3 Heart Rate 1: 94 bpm Height: 5'6" SpO2: 95% Weight: 179 lbs 12/19/2016 Blood Pressure 1: 130/74 Code: 8480-6 Heart Rate 1: 91 bpm Height: 5'6" SpO2: 97% Weight: 11/13/2016 Blood Pressure 1: 152/82 Code: 8480-6 BMI: 28.4 Code: 46051-0 Heart Rate 1: 85 bpm Height: 5'6" SpO2: 96% Weight: 176 lbs 10/16/2016 Blood Pressure 1: 148/72 Code: 8480-6 BMI: 28.4 Code: 54972-5 Heart Rate 1: 90 bpm Height: 5'6" SpO2: 96% Weight: 176 lbs 10/06/2016 Blood Pressure 1: 150/80 Code: 8480-6 BMI: 28.4 Code: 27303-4 Heart Rate 1: 76 bpm Height: 5'6" SpO2: 97% Weight: 176 lbs 07/02/2016 Blood Pressure 1: 142/78 Code: 8480-6 BMI: 27.8 Code: 26178-9 Heart Rate 1: 85 bpm Height: 5'6" SpO2: 97% Weight: 172 lbs 05/21/2016 Blood Pressure 1: 166/80 Code: 8480-6 BMI: 27.9 Code: 35748-7 Heart Rate 1: 79 bpm Height: 5'6" SpO2: 98% Weight: 173 lbs 05/07/2016 Blood Pressure 1: 140/70 Code: 8480-6 BMI: 27.9 Code: 58462-0 Heart Rate 1: 82 bpm Height: 5'6" SpO2: 96% Weight: 173 lbs 04/28/2016 Blood Pressure 1: 128/86 Code: 8480-6 BMI: 27.4 Code: 23728-7 Heart Rate 1: 86 bpm Height: 5'6" SpO2: 96% Temperature: 36.1 (C) / 97.0 (F) Weight: 170 lbs 04/07/2016 Blood Pressure 1: 150/80 Code: 8480-6 Heart Rate 1: 94 bpm Height: SpO2: 95% Weight: 04/03/2016 Blood Pressure 1: 122/76 Code: 8480-6 BMI: 27.4 Code: 92521-5 Heart Rate 1: 84 bpm Height: 5'6" SpO2: 94% Weight: 170 lbs 01/31/2016 Blood Pressure 1: 124/82 Code: 8480-6 BMI: 27.8 Code: 58354-1 Heart Rate 1: 100 bpm Height: 5'6" SpO2: 97% Weight: 172 lbs 11/29/2015 Blood Pressure 1: 140/82 Code: 8480-6 Blood Pressure 1: 130/84 Code: 8480-6 BMI: 27.4 Code: 63393-1 Heart Rate 1: 97 bpm Height: 5'6" SpO2: 95% Weight: 170 lbs 10/01/2015 Blood Pressure 1: 130/80 Code: 8480-6 BMI: 27.4 Code: 34383-2 Heart Rate 1: 82 bpm Height: 5'6" SpO2: 97% Weight: 170 lbs 08/30/2015 Blood Pressure 1: 120/68 Code: 8480-6 BMI: 27.6 Code: 08147-2 Heart Rate 1: 91 bpm Height: 5'6" SpO2: 96% Weight: 171 lbs 07/31/2015 Blood Pressure 1: 180/80 Code: 8480-6 BMI: 27.4 Code: 05100-0 Heart Rate 1: 60 bpm Height: 5'6" SpO2: 94% Weight: 170 lbs 07/03/2015 Blood Pressure 1: 154/80 Code: 8480-6 BMI: 27.4 Code: 32666-0 Heart Rate 1: 98 bpm Height: 5'6" SpO2: 95% Weight: 170 lbs 04/10/2015 Blood Pressure 1: 138/72 Code: 8480-6 BMI: 27.8 Code: 04740-0 Heart Rate 1: 82 bpm Height: 5'6" SpO2: 98% Weight: 172 lbs 01/11/2015 Blood Pressure 1: 132/74 Code: 8480-6 BMI: 28.6 Code: 00189-1 Heart Rate 1: 88 bpm Height: 5'6" SpO2: 96% Weight: 177 lbs Functional Status No Functional Status data History of Present Illness Symptom Name Status Result Effective Date Notes Quality red 11/01/2018 None Onset and Resolution [...] data Encounters Encounter Performer Location Codes Date ([id number]) 19601 EST. PATIENT, LEVEL III Diagnosis: Dysuria[ICD10: R30.0] Diagnosis: Other specified noninflammatory disorders of vagina[ICD10: N89.8] Mimi Anaya MD, [facility] CPT-4: 71271 11/01/2018 ([id number]) 97615 EST. PATIENT, LEVEL IV Diagnosis: Essential (primary) hypertension[ICD10: I10] Diagnosis: Atrophy of thyroid (acquired)[ICD10: E03.4] [facility] CPT-4: 34875 09/30/2018 ([id number]) 42078 EST. PATIENT, LEVEL III Diagnosis: Atrophy of thyroid (acquired)[ICD10: E03.4] Diagnosis: Essential (primary) hypertension[ICD10: I10] Carleen Anaya MD, [facility] CPT-4: 19378 07/20/2018 ([id number]) 25245 EST. PATIENT, LEVEL IV Diagnosis: Essential (primary) hypertension[ICD10: I10] Diagnosis: Atrophy of thyroid (acquired)[ICD10: E03.4] Diagnosis: Other fatigue[ICD10: R53.83] Diagnosis: Other insomnia[ICD10: G47.09] Carleen Anaya MD, [facility] CPT-4: 28515 06/29/2018 ([id number]) 52821 EST. PATIENT, LEVEL IV Diagnosis: Localized edema[ICD10: R60.0] Diagnosis: Muscle weakness (generalized)[ICD10: M62.81] Diagnosis: Dysuria[ICD10: R30.0] Diagnosis: assisted (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 of anticoagulants[ICD10: Z79.01] Diagnosis: Essential (primary) hypertension[ICD10: I10] Mimi Anaya MD, [facility] CPT-4: 56487 05/24/2018 ([id number]) 59193 EST. PATIENT, LEVEL III Diagnosis: Lumbago with sciatica, right side[ICD10: M54.41] Diagnosis: Sciatica, right side[ICD10: M54.31] Carleen Anaya MD, [facility] CPT- 4: 81046 04/06/2018 ([id number]) 66472 EST. PATIENT, LEVEL III Diagnosis: Lumbago with sciatica, right side[ICD10: M54.41] Diagnosis: Sciatica, right side[ICD10: M54.31] Carleen Anaya MD, [facility] CPT- 4: 38293 03/23/2018 22511 EST. PATIENT, LEVEL III Diagnosis: Low back pain[ICD10: M54.5] Diagnosis: Sacroiliitis, not elsewhere classified[ICD10: M46.1] Wendi Anaya MD, [facility] CPT-4: 68572 03/12/2018 ([id number]) 70916 EST. PATIENT, LEVEL IV Diagnosis: Atrophy of thyroid (acquired)[ICD10: E03.4] Diagnosis: Essential (primary) hypertension[ICD10: I10] Diagnosis: Urge incontinence[ICD10: N39.41] Carleen Anaya MD, [facility] CPT-4: 53456 03/02/2018 ([id number]) 10509 EST. PATIENT, LEVEL III Diagnosis: Cellulitis of face[ICD10: L03.211] Mimi Anaya MD, [facility] CPT- 4: 16451 02/08/2018 ([id number]) 83241 EST. PATIENT, LEVEL IV Diagnosis: Atrophy of thyroid (acquired)[ICD10: E03.4] Diagnosis: Essential (primary) hypertension[ICD10: I10] Diagnosis: Urge incontinence[ICD10: N39.41] Carleen Anaya MD, [facility] CPT-4: 91911 12/03/2017 25435 EST. PATIENT, LEVEL IV Diagnosis: Essential (primary) hypertension[ICD10: I10] Diagnosis: Weakness[ICD10: R53.1] Diagnosis: Low back pain[ICD10: M54.5] Diagnosis: Other allergic rhinitis[ICD10: J30.89] Wendi Anaya MD, [facility] CPT- 4: 16889 10/27/2017 41060 EST. PATIENT, LEVEL IV Diagnosis: Pneumonia due to other specified bacteria[ICD10: J15.8] Diagnosis: Chronic systolic (congestive) heart failure[ICD10: I50.22] Wendi Anaya MD, [facility] CPT-4: 22139 10/12/2017 ([id number]) 35997 EST. PATIENT, LEVEL IV Diagnosis: Atrophy of thyroid (acquired)[ICD10: E03.4] Diagnosis: Nonscarring hair loss, unspecified[ICD10: L65.9] Diagnosis: Essential (primary) hypertension[ICD10: I10] Carleen Anaya MD, [facility] CPT-4: 33253 10/06/2017 ([id number]) 73968 EST. PATIENT, LEVEL IV Diagnosis: Atrophy of thyroid (acquired)[ICD10: E03.4] Diagnosis: Essential (primary) hypertension[ICD10: I10] Diagnosis: Localized edema[ICD10: R60.0] Carleen Anaya MD, [facility] CPT-4: 31425 08/05/2017 ([id number]) 34530 EST. PATIENT, LEVEL IV Diagnosis: Essential (primary) hypertension[ICD10: I10] Diagnosis: Weakness[ICD10: R53.1] Diagnosis: Other fecal abnormalities[ICD10: R19.5] Carleen Anaya MD, [facility] CPT-4: 14446 07/06/2017 ([id number]) 68112 EST. 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 PATIENT, LEVEL IV Diagnosis: Pain in right shoulder[ICD10: M25.511] Diagnosis: Weakness[ICD10: R53.1] Diagnosis: Other fatigue[ICD10: R53.83] Diagnosis: Other malaise[ICD10: R53.81] Wendi Anaya MD, [facility] CPT-4: 74937 05/11/2017 ([id number]) Miscellaneous no charge Diagnosis: Essential (primary) hypertension[ICD10: I10] Mimi Anaya MD, [facility] CPT-4: 66748 04/30/2017 ([id number]) 49859 EST. PATIENT, LEVEL III Diagnosis: Acute recurrent maxillary sinusitis[ICD10: J01.01] Diagnosis: Urinary tract infection, site not specified[ICD10: N39.0] Mimi Anaya MD, [facility] CPT-4: 80456 04/27/2017 ([id number]) 86829 EST. PATIENT, LEVEL IV Diagnosis: Atrophy of thyroid (acquired)[ICD10: E03.4] Diagnosis: Essential (primary) hypertension[ICD10: I10] Diagnosis: Iron deficiency[ICD10: E61.1] Diagnosis: Other specified heart block[ICD10: I45.5] Carleen Anaya MD, [facility] CPT-4: 20762 04/08/2017 59671 EST. PATIENT, LEVEL III Diagnosis: Low back pain[ICD10: M54.5] Diagnosis: Sacroiliitis, not elsewhere classified[ICD10: M46.1] Wendi Anaya MD, [facility] CPT-4: 79612 03/03/2017 ([id number]) 47567 EST. PATIENT, LEVEL IV Diagnosis: Essential (primary) hypertension[ICD10: I10] Diagnosis: Atrophy of thyroid (acquired)[ICD10: E03.4] Diagnosis: Vascular dementia without behavioral disturbance[ICD10: F01.50] Carleen Anaya MD [facility] CPT-4: 48839 01/05/2017 46155 EST. PATIENT, LEVEL III Diagnosis: Cervicalgia[ICD10: M54.2] Diagnosis: Other muscle spasm[ICD10: M62.838] Wendi Anaya MD [facility] CPT-4: 52364 12/19/2016 ([id number]) 05571 EST. PATIENT, LEVEL III Diagnosis: Essential (primary) hypertension[ICD10: I10] Diagnosis: Gastro-esophageal reflux disease without esophagitis[ICD10: K21.9] Carleen Anaya MD [facility] CPT-4: 48633 11/13/2016 ([id number]) 21938 EST. PATIENT, LEVEL III Diagnosis: Pain in right shoulder[ICD10: M25.511] Diagnosis: Insomnia due to medical condition[ICD10: G47.01] Carleen Anaya MD [facility] CPT-4: 39585 10/16/2016 ([id number]) 07063 EST. PATIENT, LEVEL IV Diagnosis: Pneumonia due to other specified bacteria[ICD10: J15.8] Diagnosis: Pain in right shoulder[ICD10: M25.511] Diagnosis: Cough[ICD10: R05] Carleen Anaya MD [facility] CPT-4: 44014 10/06/2016 ([id number]) 42201 EST. PATIENT, LEVEL IV Diagnosis: Essential (primary) hypertension[ICD10: I10] Diagnosis: Personal history of other specified conditions[ICD10: Z87.898] Diagnosis: Unsteadiness on feet[ICD10: R26.81] Carleen Anaya MD, [facility] CPT- 4: 58026 07/02/2016 ([id number]) 57204 EST. PATIENT, LEVEL IV Diagnosis: Dysphagia, pharyngeal phase[ICD10: R13.13] Diagnosis: Urge incontinence[ICD10: N39.41] Diagnosis: Gastro-esophageal reflux disease without esophagitis[ICD10: K21.9] Carleen Anaya MD, [facility] CPT-4: 29252 05/21/2016 ([id number]) 40630 EST. PATIENT, LEVEL III Diagnosis: Gastro-esophageal reflux disease without esophagitis[ICD10: K21.9] Carleen Anaya MD [facility] CPT-4: 43695 05/07/2016 ([id number]) 00155 EST. PATIENT, LEVEL III Diagnosis: Acute laryngopharyngitis[ICD10: J06.0] Diagnosis: Dysphagia, pharyngeal phase[ICD10: R13.13] Diagnosis: Allergic rhinitis due to pollen[ICD10: J30.1] Mimi Anaya MD [facility] CPT-4: 93091 04/28/2016 ([id number]) Miscellaneous no charge Diagnosis: Acute laryngopharyngitis[ICD10: J06.0] Wendi Anaya MD, [facility] CPT- 4: 11507 04/10/2016 55098 EST. 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 PATIENT, LEVEL IV Diagnosis: Essential (primary) hypertension[ICD10: I10] Diagnosis: Hypothyroidism, unspecified[ICD10: E03.9] Diagnosis: Other fatigue[ICD10: R53.83] Diagnosis: Urge incontinence[ICD10: N39.41] Mimi Anaya MD, [facility] CPT- 4: 48399 04/03/2016 ([id number]) 50004 EST. PATIENT, LEVEL IV Diagnosis: Essential (primary) hypertension[ICD10: I10] Diagnosis: Pain in right ankle and joints of right foot[ICD10: M25.571] Diagnosis: Dizziness and giddiness[ICD10: R42] Diagnosis: Tinnitus, bilateral[ICD10: H93.13] Mimi Anaya MD, [facility] CPT- 4: 30743 01/31/2016 ([id number]) 89638 EST. PATIENT, LEVEL IV Diagnosis: Essential (primary) hypertension[ICD10: I10] Diagnosis: Otalgia, right ear[ICD10: H92.01] Diagnosis: Allergic rhinitis due to pollen[ICD10: J30.1] Diagnosis: Hypothyroidism, unspecified[ICD10: E03.9] Mimi Anaya MD, [facility] CPT-4: 75666 11/29/2015 ([id number]) 99812 EST. PATIENT, LEVEL IV Diagnosis: Essential (primary) hypertension[ICD10: I10] Diagnosis: Urge incontinence[ICD10: N39.41] Diagnosis: Unspecified dementia without behavioral disturbance[ICD10: F03.90] Mimi Anaya MD, [facility] CPT-4: 55027 10/01/2015 ([id number]) 38567 EST. PATIENT, LEVEL IV Diagnosis: Essential (primary) hypertension[ICD10: I10] Diagnosis: Hypothyroidism, unspecified[ICD10: E03.9] Diagnosis: Unspecified dementia without behavioral disturbance[ICD10: F03.90] Diagnosis: Urge incontinence[ICD10: N39.41] Mimi Anaya MD, [facility] CPT- 4: 67908 08/30/2015 ([id number]) 48141 EST. PATIENT, LEVEL IV Diagnosis: Essential (primary) hypertension[ICD10: I10] Diagnosis: Hypothyroidism, unspecified[ICD10: E03.9] Diagnosis: Hyperlipidemia, unspecified[ICD10: E78.5] Carleen Anaya MD, [facility] CPT-4: 92294 07/31/2015 ([id number]) 08009 EST. PATIENT, LEVEL IV Diagnosis: Essential (primary) hypertension[ICD10: I10] Diagnosis: 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[ICD10: Z79.01] Diagnosis: Dizziness and giddiness[ICD10: R42] Carleen Anaya MD, [facility] CPT- 4: 58417 07/03/2015 ([id number]) 56895 EST. PATIENT, LEVEL IV Diagnosis: ESSENTIAL HYPERTENSION[ICD9: 401.9] Diagnosis: MACULAR DEGENERATION[ICD9: 362.50] Diagnosis: Peripheral vascular disease[ICD9: 443.9] Diagnosis: Neuropathy[ICD9: 355.9] [facility] CPT-4: 85557 04/10/2015 ([id number]) OFFICE/OUTPATIENT VISIT NEW Diagnosis: ESSENTIAL HYPERTENSION[ICD9: 401.9] Diagnosis: HYPOTHYROIDISM[ICD9: 244.9] Diagnosis: URGE INCONTINENCE[ICD9: 788.31] Diagnosis: Constipation - functional[ICD9: 564.09] [facility] CPT-4: 97583 01/11/2015 Plan of Care Planned Activity Notes Codes Status Date Visit Plan: Possible vaginal bleeding -patient has a history of total hysterectomy -no obvious bleeding today upon inspection -will culture urine -monitor symptoms and call if bleeding persists or worsens. 11/01/2018 Appointment: Mimi Espinosa WPtel: [facility]0 [phone] (30 min) Complex 11/01/2018 Patient Education: Patient [...] control. 09/30/2018 Appointment: Carleen Anaya WPtel: [phone] [facility] [place] (15 min) Moderate 09/30/2018 Patient Education: Patient Medication Summary Completed 09/30/2018 [phone] ([facility]) Moderate 09/22/2018 Visit Plan: Hypothyroidism [...] at home. 07/20/2018 App[facility]ment[phone] (15 min) Moderate 07/20/2018 Patient Education: Patient [...] time. 06/29/2018 Appointment[phone] (15 min) Moderate 06/29/2018 Patient Education: Patient [...] surrogate. 06/08/2018 Appointment: Mimi Espinosa WPtel: [facility]5 [place] [phone] [facility] - Annual Wellness Visit 06/08/2018 Patient [...] edema. Weakness-fatigue- check labs Dysuria- check UA VKM-avguhwujyw-sk changes in medications 05/24/2018 Appointment: Mimi Espinosa WPtel: [facility]7 [phone] (15 min) Moderate 05/24/2018 Patient Education: Patient Medication Summary Completed 05/24/2018 Appointment: Injection 05/20/2018 Patient Education: Patient Medication Summary Completed 05/20/2018 Visit Plan: Sciatica- pt to continue with aleve twice daily and cyclobenzaprine x 1 week. Pt is to call if the symptoms do not improve or if they worsen. referral to [facility] physical therapy. 04/06/2018 Appointment: Carleen Anaya WPtel: [facility]7 [phone] (15 min) Moderate 04/06/2018 Patient Education: [...] do not improve or if they worsen. [id number] - andrew 03/23/2018 Appointment: Carleen Anaya WPtel: [phone] [facility] (15 min) Moderate 03/23/2018 Patient Education: Patient [...] injection. 03/12/2018 Appointment: Wendi Uriostegui WPtel: [phone] [facility] (30 min) Complex 03/12/2018 Patient Education: [...] myrbetric 03/02/2018 Appointment: Carleen Anaya WPtel: [phone] [phone] (15 min) Moderate 03/02/2018 Patient Education: Patient Medication Summary Completed 03/02/2018 Appointment: (10 min) Simple 02/09/2018 Visit Plan: Cellulitis - start oral antibiotics as directed, return to clinic as directed, call for acute change in symptoms, worsening redness, warmth, discharge. 02/08/2018 Appointment: Mimi Espinosa WPtel: [phone] [phone] [place] (15 min) Moderate 02/08/2018 [...] daily. 12/03/2017 Appointment: Carleen Anaya WPtel: [phone] [id number] (15 min) Moderate 12/03/2017 Patient Education: Patient [...] allergy spray. 10/27/2017 Appointment: Wendi Uriostegui WPtel: [phone] [id number] (15 min) Moderate 10/27/2017 Patient Education: Patient Medication Summary Completed 10/27/2017 Visit Plan: Pneumonia - Pt has been diagnosed with pneumonia by physical exam. A chest xray has been ordered as have antibiotics. The pt is aware of the diagnosis and the need for acute treatment of this illness. 10/12/2017 Appointment: Wendi Uriostegui WPtel: [phone] [facility] [place] (15 min) Moderate 10/12/2017 Patient Education: [...] labs today. 10/06/2017 [phone] [place] (15 min) Moderate 10/06/2017 Patient Education: [...] x 3 days and prn. 08/05/2017 Appointment: aCrleen Anaya [facility]el[facility] [place] (15 min) Moderate 08/05/2017 Patient Education: Patient Medication Summary Completed 08/05/2017 Appointment: Carleen Anaya WPtel: [facility]0 [facility] [place] (15 min) Moderate 07/14/2017 Visit Plan: [...] voltaren gel. 07/06/2017 Appointment: Carleen Anaya WPtel: [address] [place], [place] [id number] (15 min) Moderate 07/06/2017 Patient Education: Patient [...] shot today 06/18/2017 Appointment: Carleen Anaya WPtel: [facility] [place] (15 min) Moderate 06/18/2017 Patient Education: Patient Medication Summary Completed 06/18/2017 Appointment: Nurse Visit 05/12/2017 Care Plan: X-RAY EXAM OF SHOULDER LOINC : 57416-8 Pending 05/12/2017 Visit Plan: Weakness, fatigue, malaise - Discussed with Dr. 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 Pt is to follow up with her oncologist. Right shoulder pain after fall - will send for X-ray - The pt is to use prn antiinflammatories to manage acute pain. The patient is to call the office if the pain is worsening or does not improve. 05/11/2017 Appointment: Wendi Uriostegui [phone] (30 min) Complex 05/11/2017 Patient Education: Patient [...] of plan. 04/27/2017 Appointment: Mimi Espinosa WPtel: [phone] [phone] (15 min) Moderate 04/27/2017 Patient Education: [...] heart beat - recommended evaluation by her Doctor Of Osteopathy - Dr. Butler - I attempted a phone call to the office of Dr. Butler, I had to leave a message on the answering machine. If i don't hear back from Dr. Butler's office, we will need to do a Holter monitor on patient. 04/08/2017 Appointment: Carleen Anaya WPtel: 1015 [facility] (15 min) Moderate 04/08/2017 Patient Education: Patient Medication Summary Completed 04/08/2017 Care Plan: Referral Order SNOMED-CT : 938340373 Pending 04/08/2017 Visit Plan: UTI - pt [...] injection. 03/03/2017 Appointment: Wendi Uriostegui WPtel: 101[address] [facility]6[address] (30 min) Complex 03/03/2017 Patient Education: Patient [...] control. 01/05/2017 Appointment: Carleen Anaya WPtel: [phone] [facility] [place] (15 min) Moderate 01/05/2017 Patient Education: Patient Medication Summary Completed 01/05/2017 Visit Plan: Neck Pain- pt to start with aspercreme or biofreeze to neck three times daily and start neck exercises daily. Will send RX - The patient is to call the office if the pain is worsening or does not improve. 12/19/2016 Appointment: Wendi Uriostegui WPtel: [facility]0 [facility] (30 min) Complex 12/19/2016 Patient Education: [...] improving. 11/13/2016 Appointment: Carleen Anaya WPtel: [facility]7 [facility] (15 min) Moderate 11/13/2016 Patient Education: Patient Medication Summary Completed 11/13/2016 Visit Plan: Insomnia -extended release melatonin - you can take up to 10mg of melatonin sleepy time tea - - use warm milk in the tea. Right shoulder - pt to continue with therapy, anti-inflammatory 10/16/2016 Appointment: Carleen Anaya WPtel: [facility]2 [facility] [place] (15 min) Moderate 10/16/2016 Patient Education: Patient [...] pt. 10/06/2016 Appointment: [phone] (15 min) Moderate 10/06/2016 Patient Education: Patient Medication Summary Completed 10/06/2016 Care Plan: X-RAY EXAM OF SHOULDER LOINC : 29097-3 Pending 10/06/2016 Appointment: Carleen Anaya WPtel: [phone] [facility] (30 min) Complex 10/01/2016 [facility] Patient informed. Completed 07/08/2016 Visit Plan: [...] discussed therapy. 07/02/2016 Appointment: Carleen Anaya WPtel: [facility]5 [facility] (15 min) Moderate 07/02/2016 Patient Education: Patient Medication Summary Completed 07/02/2016 Care Plan: Referral Order SNOMED-CT : [id number] Pending 07/02/2016 Visit Plan: Hypertension - well [...] planning on getting a flu shot at [facility] and she is due for another pneumovax- last pneumovax was in 2008 - so she can have pneumovax now and the prevnar in 2017 05/21/2016 Appointment: Carleen Anaya WPtel: [facility]1 [facility] (15 min) Moderate 05/21/2016 Patient Education: Patient Medication Summary Completed 05/21/2016 Referral: Medardo Del Real [address] Referral Completed 05/12/2016 Visit Plan: Esophageal [...] times daily 05/07/2016 Appointment: Carleen Anaya WPtel: [facility] [address] (15 min) Moderate 05/07/2016 Patient Education: Patient Medication Summary Completed 05/07/2016 Appointment: Mimi Espinosa WPtel: [facility]7 [phone] (30 min) Complex 05/01/2016 Visit Plan: Allergies [...] Kenalog injection today in the office Sore hkfhle-uieqeurlg-hgnxy dexilant-refer to Dr Del Real for evaluation 04/28/2016 Appointment: Mimi Espinosa WPtel: [phone] (30 min) Complex 04/28/2016 Patient [...] switched. 04/07/2016 Appointment: Wendi Uriostegui [facility]Ptel: [phone] (30 min) Complex 04/07/2016 Patient Education: Patient [...] atigue-check labs including UA-culture if positive Urge qpwttrclgiup-mezojbuxb-mxtnd UA with C&S 04/03/2016 Appointment: Mimi Espinosa WPtel: [facility]5 [phone] (30 min) Complex 04/03/2016 Patient Education: Patient Medication Summary Completed 04/03/2016 Visit Plan: Hypertension - well controlled - continue with current medications, continue with no added salt diet. Pt has been encouraged to exercise daily. The pt has been advised to call the office if there are any acute concerns about change in blood pressure readings at home. Wzwylrrpo-cllgljnx-dugcbgsn MRI brain Right ankle oota-timhkqb-lete right ankle- plan to refer to physical therapy if appropriate 01/31/2016 Appointment: Mimi Espinosa WPtel: [facility]5 [phone] (30 min) Complex 01/31/2016 Patient Education: [...] vesicare Dementia-patient was on namenda per Dr Loob-wants to try it again-samples provided 08/30/2015 Appointment: [...] to medications. 07/31/2015 Appointment: Carleen Anaya WPtel: [address] [place], [place] [address] (15 min) Moderate 07/31/2015 Patient Education: Patient Medication Summary Completed 07/31/2015 Patient Education: Hypertension Completed 07/31/2015 Care Plan: Referral Order SNOMED-CT : [id number] Ordered 07/31/2015 Visit Plan: Hypertension - uncontrolled [...] on Nortryptyline 07/03/2015 Appointment: Carleen Anaya WPtel: [address] [place], [place] [address] (15 min) Moderate 07/03/2015 Patient Education: Patient [...] 01/11/2015 Referral: [facility] WPtel: [address] [facility] [place] Referral Appointment Requested Referral: External, Ordering Provider Referral Appointment Requested Referral: External, Ordering Provider Referral Relationship Referral: Medardo Del Real [address] Referral Appointment Requested Instructions Comment . Hypertension - well controlled - continue [...] to thyroid - check labs today. . Hypothyroidism - pt with chronic hypothyroidism, [...] in blood pressure readings at home. . Possible vaginal bleeding -patient has a history of total hysterectomy -no obvious bleeding today upon inspection -will culture urine - monitor symptoms and call if bleeding persists or worsens. . Pneumonia - Pt has been diagnosed with pneumonia by physical exam. A chest xray has been ordered as have antibiotics. The pt is aware of the diagnosis and the need for acute treatment of this illness. cefdinir rx to pharmacy - prednisone 40mg daily x 3 days Right shoulder pain - rx for xray sent with pt. UA keflex . Sinusitis - Pt has [...] not do so at this time. . Low back pain- The pt is [...] Kenalog injection today in the office Sore qlljbw-ywtseqjsc-rpjob dexilant-refer to Dr Del Real for evaluation [...] in the nasal steroid allergy spray. . Hypothyroidism - pt with chronic hypothyroidism, [...] heart beat - recommended evaluation by her Doctor Of Osteopathy - Dr. Butler - I attempted a [...] planning on getting a flu shot at [facility] and she is due for another [...] to assure normal liver response to medications. repeat INR in 2 weeks repeat a [...] of protein. high dose flu shot today CHECK LABS CHECK URINE . Hypertension - [...] Fatigue-check labs including UA-culture if positive Urge cinqqcftdoul-pmxpbqaqq-nyypo UA with C&S add z-pack, continue cefdinir [...] edema. Weakness-fatigue- check labs Dysuria- check UA IYD-ywasqpclzm-qe changes in medications . Hypertension - well controlled - continue with current medications, continue with no added salt diet. Pt has been encouraged to exercise daily. The pt has been advised to call the office if there are any acute concerns about change in blood pressure readings at home. Jkpcnnkuv-ajrbwkqv-oprgkzhy MRI brain Right ankle qhgk-mkmhjkc-pewf right ankle-plan to refer to physical therapy [...] improve or if they worsen. referral to [facility] physical therapy. . Hypertension - well [...] do not improve or if they worsen. [id number] - kenalog Stop Oxybutynin chloride ER. Start [...] is to keep her appointment with her motor overhauler for her ECHO and Carotid US. Pt [...]
--- OUTSIDE RECORDS SUMMARY | 2019-01-01 12:10 | XMS REPORT | CCD ---
Author Author [facility] Organization [facility] Address [address] [place] [address] Phone Care Team Providers [employer] Foreperson Name Role Phone PP Unavailable CCM Unavailable Summary Purpose Interface Exchange Insurance Providers Payer name Policy type / Coverage type Covered constitution party ID Effective Begin Date Effective End Date WPS Medicare Part B Medicare Part B [id number] Unknown Unknown [facility] Medicare Part B [id number] Unknown Unknown Family history Father Diagnosis Age At Onset Cancer Unknown Arthritis Unknown Mother Diagnosis Age At Onset Breast cancer Unknown Arthritis Unknown Social History Social History Element Codes Description Effective Dates Alcohol history Unknown occasionally drinks alcohol 06/08/2018 Frequency of drinks SNOMED CT: 157258866 Drinks rarely 06/08/2018 Marital status Unknown 01/11/2015 Number of children Unknown 3 01/11/2015 Employment Unknown Retired 01/11/[address]: 4586141 Quit over 10 years ago 1950 01/11/[address]: 550654539 Never drinks alcohol 01/11/2015 Allergies, Adverse Reactions, Alerts Substance Reaction Codes Entered Date Inactivated Date Status * OTHER REACTION - SEE ANSWER BOX vancogein red Unknown 01/11/2015 No Inactive Date Active CODEINE RxNorm: 2670 01/11/2015 No Inactive Date Active demerol RxNorm: 734804 08/30/2015 No Inactive Date Active hydrocodone Unknown [...] ICD-9: 782.3 ICD-10: R60.0 Active 08/05/2017 Unknown correction (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 of anticoagulants ICD-9: V58.61 [...] Fill Instructions Synthroid 175 mcg tablet RxNorm: 577408 1 Tablet(s) PO daily 09/30/2018 02/26/2019 Active this is an update on the dose - she is to take this daily - hold off on the 200mcg pills for now Synthroid 175 mcg tablet RxNorm: 892939 1 Tablet(s) PO 5 times weekly 09/30/2018 09/29/2018 Inactive alternate with 175mcg order losartan 25 mg tablet RxNorm: 609182 TAKE 1 TABLET BY MOUTH ONCE DAILY 08/30/2018 No Stop Date Active Myrbetriq 50 mg tablet,extended release RxNorm: 9549940 1 Tablet(s) PO daily 08/24/2018 12/21/2018 Active Synthroid 175 mcg tablet RxNorm: 761410 1 Tablet(s) PO 4 times a week Thu07/20/2018 09/29/2018 Inactive alternate with 175mcg order Synthroid 200 mcg tablet RxNorm: 352744 Tablet(s) TAKE ONE TABLET BY MOUTH ON THURSDAY, Thursday07/20/2018 09/29/2018 Inactive pantoprazole 40 mg tablet,delayed release RxNorm: 945093 TAKE ONE TABLET BY MOUTH TWICE DAILY 07/19/2018 No Stop Date Active furosemide 40 mg tablet RxNorm: 852463 1 Tablet(s) PO 2 times weekly with song butler 07/13/2018 No Stop Date Active Synthroid 200 mcg tablet RxNorm: 754206 TAKE ONE TABLET BY MOUTH ON THURSDAY, THURSDAY, AND Thursday07/13/2018 07/19/2018 Inactive Vitamin D3 400 unit capsule RxNorm: 974794 1 Capsule(s) PO daily 06/17/2018 No Stop Date Active Aspirin Low Dose 81 mg tablet,delayed release RxNorm: 496527 1 Tablet(s) PO BIW on Thursday and Thursday06/17/2018 No Stop Date Active biotin 1,000 mcg chewable tablet RxNorm: 5941585 1 Tablet(s) PO daily 06/17/2018 No Stop Date Active Vitamin B-12 500 mcg tablet RxNorm: 653988 1 Tablet(s) PO daily 06/17/2018 No Stop Date Active Colace 100 mg capsule RxNorm: 5448078 1 Capsule(s) PO QHS 06/08/2018 No Stop Date Active Coumadin 3 mg tablet RxNorm: 834291 1 Tablet(s) PO daily x5 days and 2 mg x2 days -Managed by Dr. Bowman 06/08/2018 No Stop Date Active Keflex 500 mg capsule RxNorm: 243864 1 Capsule(s) PO TID 05/25/2018 05/31/2018 Inactive metoprolol succinate ER 100 mg tablet,extended release 24 hr RxNorm: 841591 Tablet(s) TAKE ONE TABLET BY MOUTH ONCE DAILY 05/19/2018 No Stop Date Active Coumadin 3 mg tablet RxNorm: 526461 1 Tablet(s) PO daily -Managed by Dr. Bowman 05/04/2018 06/07/2018 Inactive Synthroid 175 mcg tablet RxNorm: 458855 TAKE 1 TABLET BY MOUTH ONCE DAILY 04/06/2018 06/07/2018 Inactive cyclobenzaprine 5 mg tablet RxNorm: 678799 1/2 Tablet(s) PO TID 04/06/2018 04/15/2018 Inactive Synthroid 200 mcg tablet RxNorm: 378174 1 Tablet(s) PO TIW [facility] 04/05/2018 07/12/2018 Inactive brand name only- Alternate with 175mcg dose schedule Synthroid 175 mcg tablet RxNorm: 256138 1 Tablet(s) PO 4 times a week Thu04/05/2018 07/19/2018 Inactive alternate with 175mcg order cyclobenzaprine 5 mg tablet RxNorm: 099328 1/2 Tablet(s) PO TID 03/23/2018 04/01/2018 Inactive tramadol 50 mg tablet RxNorm: 768663 1 Tablet(s) PO TID as needed 03/17/2018 No Stop Date Active Kenalog 40 mg/mL suspension for injection RxNorm: 6936854 2 Milliliter(s) Inj 03/12/2018 03/12/2018 Inactive prednisone 20 mg tablet RxNorm: 960261 2 Tablet(s) PO daily 03/11/2018 03/10/2018 Inactive prednisone 20 mg tablet RxNorm: 323238 2 Tablet(s) PO daily 03/11/2018 03/15/2018 Inactive losartan 25 mg tablet RxNorm: 409965 TAKE ONE TABLET BY MOUTH ONCE DAILY 02/16/2018 08/29/2018 Inactive doxycycline hyclate 100 mg tablet RxNorm: 7948314 1 Tablet(s) PO BID 02/08/2018 02/14/2018 Inactive ceftriaxone 500 mg solution for injection RxNorm: 6243463 Inj 02/08/2018 02/08/2018 Inactive dapsone 25 mg tablet RxNorm: 419044 2 Tablet(s) PO daily 02/08/2018 02/12/2018 Inactive metoprolol succinate ER 100 mg tablet,extended release 24 hr RxNorm: 491552 TAKE ONE TABLET BY MOUTH ONCE DAILY 01/05/2018 05/18/2018 Inactive Synthroid 175 mcg tablet RxNorm: 832838 1 Tablet(s) PO daily 01/01/2018 03/31/2018 Inactive Synthroid 175 mcg tablet RxNorm: 643492 1 Tablet(s) PO daily 01/01/2018 12/31/2017 Inactive Myrbetriq 50 mg tablet,extended release RxNorm: 4917932 1 Tablet(s) PO daily 12/03/2017 01/01/2018 Inactive Zithromax Z-Oliver 250 mg tablet RxNorm: 973445 1 Tablet(s) PO UD 10/12/2017 10/16/2017 Inactive Tessalon Perles 100 mg capsule RxNorm: 945732 2 Capsule(s) PO TID as needed 10/12/2017 10/16/2017 Inactive prednisone 20 mg tablet RxNorm: 156320 2 Tablet(s) PO daily 10/12/2017 10/16/2017 Inactive cefdinir 300 mg capsule RxNorm: 614258 1 Capsule(s) PO BID 10/08/2017 10/07/2017 Inactive Synthroid 150 mcg tablet RxNorm: 689996 1 Tablet(s) PO daily in morning, except 1/2 Tablet PO Wed, Sat, take 30 minutes before meal 10/08/2017 04/04/2018 Inactive brand name only cefdinir 300 mg capsule RxNorm: 705735 1 Capsule(s) PO BID 10/08/2017 10/14/2017 Inactive Synthroid 150 mcg tablet RxNorm: 519940 1 Tablet(s) PO daily in morning, take 30 minutes before meal 10/06/2017 10/07/2017 Inactive brand name only cefdinir 300 mg capsule RxNorm: 471729 1 Capsule(s) PO BID 08/24/2017 08/30/2017 Inactive Zithromax Z-Oliver 250 mg tablet RxNorm: 267681 1 Tablet(s) PO UD 08/20/2017 08/19/2017 Inactive Zithromax Z-Oliver 250 mg tablet RxNorm: 794506 1 Tablet(s) PO UD 08/20/2017 08/24/2017 Inactive Synthroid 150 mcg tablet RxNorm: 575293 1 Tablet(s) PO daily in morning, take 30 minutes before meal 08/05/2017 08/04/2017 Inactive Synthroid 150 mcg tablet RxNorm: 509024 1 Tablet(s) PO daily in morning, take 30 minutes before meal 08/05/2017 10/05/2017 Inactive Coumadin 3 mg tablet RxNorm: 929394 1 Tablet(s) PO Thursday, , , and Thu- Managed by Dr. Bowman -Managed by Dr. Bowman 08/05/2017 05/03/2018 Inactive pantoprazole 40 mg tablet,delayed release RxNorm: 791010 1 Tablet(s) PO BID 07/08/2017 07/02/2018 Inactive pantoprazole 40 mg tablet,delayed release RxNorm: 655133 1 Tablet(s) PO BID 07/08/2017 07/07/2017 Inactive metoprolol succinate ER 100 mg tablet,extended release 24 hr RxNorm: 711699 TAKE ONE TABLET BY MOUTH ONCE DAILY 07/08/2017 01/04/2018 Inactive Coumadin 3 mg tablet RxNorm: 983848 1 Tablet(s) PO QPM -Managed by Dr. Bowman 07/06/2017 08/04/2017 Inactive Coumadin 3 mg tablet RxNorm: 504321 1 Tablet(s) PO QPM at 6:00pm Managed by Dr Bowman 1/2 pill on thursday and thursday, full pill other days 06/18/2017 07/05/2017 Inactive Voltaren 1 % topical gel RxNorm: 105729 2 TOP QID 06/18/2017 10/15/2017 Inactive Micro-K 10 10 mEq capsule,extended release RxNorm: 013108 1 Capsule(s) PO daily 05/08/2017 12/02/2017 Inactive Synthroid 137 mcg tablet RxNorm: 012884 1 Tablet(s) PO QAM 05/08/2017 08/04/2017 Inactive Dose increased 04/14/17 pravastatin 10 mg tablet RxNorm: 766508 1 Tablet(s) PO daily TAKE ONE TABLET BY MOUTH ONCE DAILY 05/08/2017 12/02/2017 Inactive losartan 25 mg tablet RxNorm: 762848 1 Tablet(s) PO daily TAKE ONE TABLET BY MOUTH ONCE DAILY 05/08/2017 06/07/2018 Inactive Namenda 10 mg tablet RxNorm: 954051 TAKE ONE TABLET BY MOUTH TWICE DAILY 05/07/2017 12/02/2017 Inactive Keflex 500 mg capsule RxNorm: 699742 1 Capsule(s) PO TID 04/27/2017 05/03/2017 Inactive Synthroid 137 mcg tablet RxNorm: 832399 1 Tablet(s) PO QAM 04/14/2017 04/13/2017 Inactive Vitamin D2 50,000 unit capsule RxNorm: 119677 1 Capsule(s) PO QW 04/14/2017 12/02/2017 Inactive Synthroid 137 mcg tablet RxNorm: 774678 1 Tablet(s) PO QAM 04/14/2017 05/07/2017 Inactive losartan 25 mg tablet RxNorm: 103981 TAKE ONE TABLET BY MOUTH ONCE DAILY 03/23/2017 05/07/2017 Inactive Synthroid 125 mcg tablet RxNorm: 205130 TAKE ONE TABLET BY MOUTH ONCE DAILY 03/12/2017 04/12/2017 Inactive ciprofloxacin 500 mg tablet RxNorm: 741679 1 Tablet(s) PO BID 2017 03/13/2017 Inactive prednisone 20 mg tablet RxNorm: 410222 2 Tablet(s) PO daily 03/03/2017 03/07/2017 Inactive tramadol 50 mg tablet RxNorm: 937974 1/2 Tablet(s) PO TID as needed 03/03/2017 12/02/2017 Inactive pravastatin 10 mg tablet RxNorm: 814285 TAKE ONE TABLET BY MOUTH ONCE DAILY 01/19/2017 05/07/2017 Inactive nortriptyline 10 mg capsule RxNorm: 511438 TAKE ONE CAPSULE BY MOUTH ONCE DAILY IN THE EVENING 01/14/2017 12/02/2017 Inactive Voltaren 1 % topical gel RxNorm: 367507 TOP QID 12/22/2016 02/19/2017 Inactive Voltaren 1 % topical gel RxNorm: 871682 TOP QID 12/22/2016 12/21/2016 Inactive prednisone 20 mg tablet RxNorm: 828848 2 Tablet(s) PO daily 12/19/2016 12/23/2016 Inactive cyclobenzaprine 5 mg tablet RxNorm: 878092 1/2 Tablet(s) PO BID as needed 12/19/2016 12/23/2016 Inactive Flector 1.3 % transdermal 12 hour patch RxNorm: 124560 1 Patch TOP every 12 hours as needed 12/19/2016 12/02/2017 Inactive losartan 25 mg tablet RxNorm: 145373 1 Tablet(s) PO daily TAKE ONE TABLET BY MOUTH ONCE DAILY 11/13/2016 03/22/2017 Inactive Namenda 10 mg tablet RxNorm: 168078 TAKE ONE TABLET BY MOUTH TWICE DAILY 10/28/2016 04/25/2017 Inactive nortriptyline 10 mg capsule RxNorm: 986035 TAKE ONE CAPSULE BY MOUTH ONCE DAILY IN THE EVENING 10/13/2016 01/10/2017 Inactive ceftriaxone 500 mg solution for injection RxNorm: 0257561 Inj 10/06/2016 10/06/2016 Inactive cefdinir 300 mg capsule RxNorm: 921926 1 Capsule(s) PO BID 10/06/2016 10/12/2016 Inactive prednisone 20 mg tablet RxNorm: 351494 2 Tablet(s) PO daily 10/06/2016 10/08/2016 Inactive ProAir RespiClick 90 mcg/actuation breath activated RxNorm: 5108873 2 INH TID x 3 days then one inhale tid x 3 days then prn shortness of breath 10/06/2016 11/04/2016 Inactive Kenalog 40 mg/mL suspension for injection RxNorm: 5421495 1 Milliliter(s) Inj 10/06/2016 10/06/2016 Inactive Myrbetriq 50 mg tablet,extended release RxNorm: 9871501 1 Tablet(s) PO daily 09/11/2016 11/12/2016 Inactive Namenda 10 mg tablet RxNorm: 123632 TAKE ONE TABLET BY MOUTH TWICE DAILY 07/25/2016 10/22/2016 Inactive hydrochlorothiazide 25 mg tablet RxNorm: 540928 1 Tablet(s) PO daily 07/25/2016 12/02/2017 Inactive Synthroid 125 mcg tablet RxNorm: 731266 TAKE ONE TABLET BY MOUTH ONCE DAILY 07/14/2016 03/10/2017 Inactive losartan 25 mg tablet RxNorm: 721901 TAKE ONE TABLET BY MOUTH ONCE DAILY 07/07/2016 11/12/2016 Inactive metoprolol succinate ER 100 mg tablet,extended release 24 hr RxNorm: 132965 1 Tablet(s) PO daily 06/16/2016 06/10/2017 Inactive nortriptyline 10 mg capsule RxNorm: 715975 Capsule(s) TAKE ONE CAPSULE BY MOUTH ONCE DAILY IN THE EVENING 06/09/2016 10/06/2016 Inactive Myrbetriq 50 mg tablet,extended release RxNorm: 5114623 1 Tablet(s) PO daily 05/21/2016 09/10/2016 Inactive doxycycline hyclate 100 mg tablet RxNorm: 531256 1 Tablet(s) PO BID 05/07/2016 05/13/2016 Inactive Carafate 100 mg/mL oral suspension RxNorm: 340040 10 Milliliter(s) PO QID 05/07/2016 12/02/2017 Inactive Kenalog 40 mg/mL suspension for injection RxNorm: 8653556 Milliliter(s) Inj 04/28/2016 04/28/2016 Inactive losartan 25 mg tablet RxNorm: 934770 TAKE ONE TABLET BY MOUTH ONCE DAILY 04/08/2016 07/06/2016 Inactive ciprofloxacin 500 mg tablet RxNorm: 832220 1 Tablet(s) PO BID 04/07/2016 04/13/2016 Inactive cyclobenzaprine 5 mg tablet RxNorm: 476163 1 Tablet(s) PO TID 04/07/2016 04/16/2016 Inactive Keflex 500 mg capsule RxNorm: 415528 1 Capsule(s) PO TID 04/03/2016 04/02/2016 Inactive Keflex 500 mg capsule RxNorm: 632595 1 Capsule(s) PO TID 04/03/2016 04/09/2016 Inactive losartan 25 mg tablet RxNorm: 335410 TAKE ONE TABLET BY MOUTH ONCE DAILY 03/06/2016 04/07/2016 Inactive nortriptyline 10 mg capsule RxNorm: 576239 TAKE ONE CAPSULE BY MOUTH ONCE DAILY IN THE EVENING 03/06/2016 06/03/2016 Inactive pravastatin 10 mg tablet RxNorm: 224733 TAKE ONE TABLET BY MOUTH ONCE DAILY 02/04/2016 01/18/2017 Inactive warfarin 4 mg tablet RxNorm: 001871 Tablet(s) PO q d except 5mg on tue 01/31/2016 06/17/2017 Inactive Myrbetriq 50 mg tablet,extended release RxNorm: 8691536 1 Tablet(s) PO daily 01/17/2016 05/15/2016 Inactive Namenda 10 mg tablet RxNorm: 694784 1 Tablet(s) PO BID 01/01/2016 06/28/2016 Inactive Myrbetriq 50 mg tablet,extended release RxNorm: 2371672 1 Tablet(s) PO daily 12/20/2015 12/20/2015 Inactive Synthroid 125 mcg tablet RxNorm: 804939 1 Tablet(s) PO daily 11/14/2015 07/10/2016 Inactive nortriptyline 10 mg capsule RxNorm: 266134 TAKE ONE CAPSULE BY MOUTH ONCE DAILY IN THE EVENING 11/05/2015 03/03/2016 Inactive Myrbetriq 50 mg tablet,extended release RxNorm: 9079595 1 Tablet(s) PO daily 10/01/2015 12/19/2015 Inactive Namenda 10 mg tablet RxNorm: 735047 1 Tablet(s) PO BID 08/30/2015 12/31/2015 Inactive Vesicare 10 mg tablet RxNorm: 204435 1 Tablet(s) PO daily 08/30/2015 09/30/2015 Inactive warfarin 4 mg tablet RxNorm: 085941 Tablet(s) PO 08/30/2015 01/30/2016 Inactive Synthroid 125 mcg tablet RxNorm: 212996 1 Tablet(s) PO daily 08/02/2015 11/13/2015 Inactive Synthroid 125 mcg tablet RxNorm: 574023 Tablet(s) PO 08/01/2015 08/01/2015 Inactive losartan 25 mg tablet RxNorm: 893167 1 Tablet(s) PO daily 07/31/2015 02/25/2016 Inactive pravastatin 10 mg tablet RxNorm: 808073 1 Tablet(s) PO daily 07/23/2015 01/18/2016 Inactive hydrochlorothiazide 25 mg tablet RxNorm: 290151 1 Tablet(s) PO daily 07/19/2015 07/12/2016 Inactive nortriptyline 10 mg capsule RxNorm: 505958 1 Capsule(s) PO QPM 07/03/2015 10/30/2015 Inactive metoprolol succinate ER 100 mg tablet,extended release 24 hr RxNorm: 663609 1 Tablet(s) PO daily 06/06/2015 05/30/2016 Inactive pravastatin 10 mg tablet RxNorm: 092352 1 Tablet(s) PO daily 01/22/2015 07/20/2015 Inactive aspirin 81 mg capsule,delayed release RxNorm: 092201 1 Capsule(s) PO daily 01/11/2015 02/09/2015 Inactive Fosamax 5 mg tablet RxNorm: 690177 1 Tablet(s) QW 01/11/2015 12/02/2017 Inactive oxybutynin chloride ER 10 mg tablet,extended release 24 hr RxNorm: 062468 1 Tablet(s) PO daily 01/11/2015 08/29/2015 Inactive Fosamax 70 mg tablet RxNorm: 178624 1 Tablet(s) PO QW No Start Date Active Claritin oral RxNorm: 87841 oral No Start Date Active Centrum oral RxNorm: oral No Start Date Active Calcium 600 + D(3) oral RxNorm: 542167 oral No Start Date Active Coumadin 4 mg tablet RxNorm: 553449 1 Tablet(s) PO daily on M,W,F No Start Date 06/07/2018 Inactive Vitamin D3 oral RxNorm: oral No Start Date 06/16/2018 Inactive pravastatin 10 mg tablet RxNorm: 354355 1 Tablet(s) PO daily No Start Date 01/21/2015 Inactive Aspirin Low Dose 81 mg tablet,delayed release RxNorm: 204428 1 Tablet(s) PO BIW on Thursday and Thursday No Start Date 06/16/2018 Inactive Tylenol PM oral RxNorm: 588798 oral No Start Date 04/07/2017 Inactive Vitamin D2 oral RxNorm: 4018 oral No Start Date 06/08/2018 Inactive Vitamin D2 50,000 unit capsule RxNorm: 585647 1 Capsule(s) PO QW No Start Date 04/13/2017 Inactive tramadol 50 mg tablet RxNorm: 799629 1 Tablet(s) PO TID as needed No Start Date 03/16/2018 Inactive Colace 100 mg capsule RxNorm: 4054015 Capsule(s) PO No Start Date 06/07/2018 Inactive furosemide 40 mg tablet RxNorm: 271866 1 Tablet(s) PO daily as needed No Start Date 07/12/2018 Inactive biotin oral RxNorm: oral No Start Date 06/16/2018 Inactive Micro-K 10 10 mEq capsule,extended release RxNorm: 146109 1 Capsule(s) PO daily No Start Date 05/07/2017 Inactive Synthroid 100 mcg tablet RxNorm: 360924 Tablet(s) PO No Start Date 07/31/2015 Inactive Vitamin B-12 oral RxNorm: oral No Start Date 06/16/2018 Inactive PreserVision AREDS 2 oral RxNorm: 7515904 oral No Start Date 06/07/2018 Inactive hydrochlorothiazide 25 mg tablet RxNorm: 334926 1 Tablet(s) PO daily No Start Date 07/18/2015 Inactive warfarin 2 mg tablet RxNorm: 822679 Tablet(s) PO No Start Date 08/29/2015 Inactive metoprolol succinate ER 100 mg tablet,extended release 24 hr RxNorm: 769419 1 Tablet(s) PO daily No Start Date 06/05/2015 Inactive warfarin 3 mg tablet RxNorm: 440997 Tablet(s) PO No Start Date 08/29/2015 Inactive Coumadin 3 mg tablet RxNorm: 238946 1 Tablet(s) PO QPM at 6:00pm Managed by Dr Bowman No Start Date 06/17/2017 Inactive Myrbetriq 50 mg tablet,extended release RxNorm: 4433564 1 Tablet(s) PO daily No Start Date 08/23/2018 Inactive Medication Administered Medication Codes Instructions Start Date Status Kenalog 40 mg/mL suspension for injection RxNorm: 9145112 2Milliliter 03/12/2018 No longer Active ceftriaxone 500 mg solution for injection RxNorm: 1568399 02/08/2018 No longer Active Kenalog 40 mg/mL suspension for injection RxNorm: 5314705 1Milliliter 10/06/2016 No longer Active ceftriaxone 500 mg solution for injection RxNorm: 2520716 10/06/2016 No longer Active Kenalog 40 mg/mL suspension for injection RxNorm: 7329861 Milliliter 04/28/2016 No longer Active Immunizations Vaccine [...] Localized edema ICD-10: R60.0 ICD-9: 782.3 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 [...] NO Growth Day 2 05/27/2018 Comp Metabolic Ylw815 NA 142 mEq/L 05/24/2018 Comp Metabolic Jgw035 K 4.0 mEq/L 05/24/2018 Comp Metabolic Vtj370 CL 104 mEq/L 05/24/2018 Comp Metabolic Pvm941 CO2 30.0 mEq/L 05/24/2018 Comp Metabolic Sns996 ANION GAP 12 05/24/2018 Comp Metabolic Aap177 GLUCOSE 94 mg/dL 05/24/2018 Comp Metabolic Wfc573 Creat 0.6 mg/dL 05/24/2018 Comp Metabolic Kgm407 eGFR 97 ml/min/1.73m2 05/24/2018 Comp Metabolic Xys021 BUN 12 mg/dL 05/24/2018 Comp Metabolic Akg130 B/C Ratio 19.4 Ratio 05/24/2018 Comp Metabolic Sdc507 CALCIUM 8.8 mg/dL 05/24/2018 Comp Metabolic Qcd646 ALK PHOS 135 U/L 05/24/2018 Comp Metabolic Cwt443 AST(SGOT) 18 U/L 05/24/2018 Comp Metabolic Vtx891 ALT(SGPT) 16 U/L 05/24/2018 Comp Metabolic Qee255 BILI T 0.4 mg/dL 05/24/2018 Comp Metabolic Yzd387 ALBUMIN 3.9 g/dL 05/24/2018 Comp Metabolic Qul858 TPRO 6.0 g/dL 05/24/2018 Comp Metabolic Yco209 GLOB 2.1 g/dL 05/24/2018 Comp Metabolic Gqi352 A/G Ratio 1.8 Ratio 05/24/2018 Comp Metabolic Tbw948 Osmo 283 mOsmo 05/24/2018 Pt Sgi8961 PT 28.2 seconds 05/24/2018 Pt Sae7252 INR 2.6 05/24/2018 Pt Ssh0907 Low Intensity - 1.5-2.0 05/24/2018 Pt Inq3825 Mod intensity - 2.0-3.0 05/24/2018 Pt Ufr6990 Hi intensity - 3.0-4.0 05/24/2018 Cbc With [...] 29.7 pg 05/24/2018 Cbc With Differential Ord2 [place]% 7.0 % 05/24/2018 Cbc With Differential Ord2 [...] 1.54 K/ul 05/24/2018 Cbc With Differential Ord2 [place] ABS# 0.5 K/ul 05/24/2018 Cbc With Differential Ord2 Eos ABS# 0.4 K/ul 05/24/2018 Cbc With Differential Ord2 Baso ABS# 0.0 K/ul 05/24/2018 Tsh Ord6 TSH (3rd IS) 3.19 uIU/mL 10/06/2017 Free T4 Jsu645 FREE T4 1.64 ng/dL 10/06/2017 Free T4 Hlt546 FREE T4 1.03 ng/dL 08/05/2017 Tsh Ord6 [...] Ord30 C/HDL 3.7 Ratio 04/09/2017 Free T4 Uge776 FREE T4 0.97 ng/dL 04/09/2017 Tibc Ord40 Iron 36 ug/dl 04/09/2017 Tibc Ord40 UIBC 281 ug/dL 04/09/2017 Tibc Ord40 TIBC 317 ug/dL 04/09/2017 Tibc Ord40 Fe-%Sat 11.4 % 04/09/2017 Comp Metabolic Rqh864 NA 136 mEq/L 04/09/2017 Comp Metabolic Rtn792 K 3.9 mEq/L 04/09/2017 Comp Metabolic Rtl529 CL 98 mEq/L 04/09/2017 Comp Metabolic Zqb084 CO2 28.0 mEq/L 04/09/2017 Comp Metabolic Tei010 ANION GAP 14 04/09/2017 Comp Metabolic Wvk754 GLUCOSE 90 mg/dL 04/09/2017 Comp Metabolic Bwe602 Creat 0.6 mg/dL 04/09/2017 Comp Metabolic Xxa903 eGFR 102 ml/min/1.73m2 04/09/2017 Comp Metabolic Ibl921 BUN 9 mg/dL 04/09/2017 Comp Metabolic Rgi659 B/C Ratio 15.3 Ratio 04/09/2017 Comp Metabolic Nfm255 CALCIUM 8.8 mg/dL 04/09/2017 Comp Metabolic Geh832 ALK PHOS 102 U/L 04/09/2017 Comp Metabolic Spn324 AST(SGOT) 18 U/L 04/09/2017 Comp Metabolic Kxh238 ALT(SGPT) 14 U/L 04/09/2017 Comp Metabolic Zrj045 BILI T 0.4 mg/dL 04/09/2017 Comp Metabolic Aqt782 ALBUMIN 3.9 g/dL 04/09/2017 Comp Metabolic Gih729 TPRO 6.3 g/dL 04/09/2017 Comp Metabolic Fpw110 GLOB 2.4 g/dL 04/09/2017 Comp Metabolic Mtf975 A/G Ratio 1.7 Ratio 04/09/2017 Comp Metabolic Stz223 Osmo 270 mOsmo 04/09/2017 Vitamin D 25 Oh Hoy0837 VITAMIN D, 25 HYDROXY 34.31 ng/mL 04/09/2017 [...] 28.9 pg 04/09/2017 Cbc With Differential Ord2 [place]% 8.8 % 04/09/2017 Cbc With Differential Ord2 [...] 1.22 K/ul 04/09/2017 Cbc With Differential Ord2 [place] ABS# 0.7 K/ul 04/09/2017 Cbc With Differential Ord2 Eos ABS# 0.1 K/ul 04/09/2017 Cbc With Differential Ord2 Baso ABS# 0.0 K/ul 04/09/2017 Urine Culture Ucult Complete >100,000 col/ml aerobic growth sent to ref lab 03/05/2017 Pt Cgz3311 PT 24.2 seconds 04/14/2016 Pt Shu6785 INR 2.3 04/14/2016 Pt Trf4332 Low Intensity - 1.5-2.0 04/14/2016 Pt Jiu2437 Mod intensity - 2.0-3.0 04/14/2016 Pt Ufj9146 Hi intensity - 3.0-4.0 04/14/2016 Pt Ced8300 PT 31.3 seconds 04/10/2016 Pt Zzp8207 INR 3.3 04/10/2016 Pt Iyw4717 Low Intensity - 1.5-2.0 04/10/2016 Pt Jkz7277 Mod intensity - 2.0-3.0 04/10/2016 Pt Uzx2734 Hi intensity - 3.0-4.0 04/10/2016 C RAP A SC [id number] Strep A Negative 04/10/2016 Urine Culture Ucult Complete >100,000 col/ml aerobic growth sent to ref lab 04/04/2016 Comp Metabolic Gvr396 NA 136 mEq/L 04/03/2016 Comp Metabolic Quz860 K 3.9 mEq/L 04/03/2016 Comp Metabolic Rao720 CL 99 mEq/L 04/03/2016 Comp Metabolic Gbu609 CO2 32.0 mEq/L 04/03/2016 Comp Metabolic Myv054 ANION GAP 9 04/03/2016 Comp Metabolic Ney105 GLUCOSE 88 mg/dL 04/03/2016 Comp Metabolic Xzr803 Creat 0.6 mg/dL 04/03/2016 Comp Metabolic Njm852 eGFR 93 ml/min/1.73m2 04/03/2016 Comp Metabolic Zca812 BUN 15 mg/dL 04/03/2016 Comp Metabolic Cps948 B/C Ratio 23.4 Ratio 04/03/2016 Comp Metabolic Xvp769 CALCIUM 8.7 mg/dL 04/03/2016 Comp Metabolic Uqu446 ALK PHOS 100 U/L 04/03/2016 Comp Metabolic Onh551 AST(SGOT) 28 U/L 04/03/2016 Comp Metabolic Tra649 ALT(SGPT) 39 U/L 04/03/2016 Comp Metabolic Jjo746 BILI T 0.5 mg/dL 04/03/2016 Comp Metabolic Gmh514 ALBUMIN 4.1 g/dL 04/03/2016 Comp Metabolic Jzg030 TPRO 6.6 g/dL 04/03/2016 Comp Metabolic Fqn580 GLOB 2.5 g/dL 04/03/2016 Comp Metabolic Nvi969 A/G Ratio 1.7 Ratio 04/03/2016 Comp Metabolic Ajy236 Osmo 272 mOsmo 04/03/2016 Cbc With Differential [...] 29.0 pg 04/03/2016 Cbc With Differential Ord2 [place]% 11.3 % 04/03/2016 Cbc With Differential Ord2 [...] 1.15 K/ul 04/03/2016 Cbc With Differential Ord2 [place] ABS# 0.8 K/ul 04/03/2016 Cbc With Differential Ord2 Eos ABS# 0.2 K/ul 04/03/2016 Cbc With Differential Ord2 Baso ABS# 0.0 K/ul 04/03/2016 Tsh Ord6 hTSH II 3.06 uIU/mL 04/03/2016 Free T4 Lef980 FREE T4 0.99 ng/dL 04/03/2016 Free T4 Pin327 FREE T4 0.81 ng/dL 07/31/2015 Comp Metabolic Hpd846 NA 136 mEq/L 07/31/2015 Comp Metabolic Wsn277 K 3.8 mEq/L 07/31/2015 Comp Metabolic Gxo849 CL 97 mEq/L 07/31/2015 Comp Metabolic Lyn100 CO2 29.0 mEq/L 07/31/2015 Comp Metabolic Iiu639 ANION GAP 14 07/31/2015 Comp Metabolic Bop453 GLUCOSE 90 mg/dL 07/31/2015 Comp Metabolic Mku442 Creat 0.7 mg/dL 07/31/2015 Comp Metabolic Flp169 eGFR 80 ml/min/1.73m2 07/31/2015 Comp Metabolic Waq320 BUN 8 mg/dL 07/31/2015 Comp Metabolic Flg883 B/C Ratio 11.0 Ratio 07/31/2015 Comp Metabolic Ynu541 CALCIUM 8.9 mg/dL 07/31/2015 Comp Metabolic Adt511 ALK PHOS 102 U/L 07/31/2015 Comp Metabolic Ofw502 AST(SGOT) 22 U/L 07/31/2015 Comp Metabolic Byx784 ALT(SGPT) 14 U/L 07/31/2015 Comp Metabolic Vqh963 BILI T 0.5 mg/dL 07/31/2015 Comp Metabolic Yyz021 ALBUMIN 4.4 g/dL 07/31/2015 Comp Metabolic Qzo318 TPRO 6.7 g/dL 07/31/2015 Comp Metabolic Kof830 GLOB 2.3 g/dL 07/31/2015 Comp Metabolic Zso214 A/G Ratio 1.9 Ratio 07/31/2015 Comp Metabolic Elr287 Osmo 270 mOsmo 07/31/2015 Tsh Ord6 hTSH [...] Lipid Ord30 C/HDL 4.8 Ratio 07/31/2015 Pt Upv6839 PT 31.9 seconds 07/03/2015 Pt [id number] INR 3.2 07/03/2015 Pt Cfo6837 Low Intensity - 1.5-2.0 07/03/2015 Pt Erq5256 Mod intensity - 2.0-3.0 07/03/2015 Pt Fjf2198 Hi intensity - 3.0-4.0 07/03/2015 Review of [...] Codes Date URINALYSIS NONAUTO W/O SCOPE CPT-4: 19472 11/01/2018 PPPS, SUBSEQ VISIT CPT- 4: G0439 06/08/2018 URINALYSIS NONAUTO W/O SCOPE CPT-4: 80506 05/25/2018 ADMIN INFLUENZA VIRUS VAC CPT-4: G0008 05/20/2018 FLU VACC PRSV FREE INC ANTIG CPT-4: 11389 05/20/2018 DRAIN/INJECT JOINT/BURSA CPT-4: 37195 03/23/2018 TRIAMCINOLONE ACET INJ NOS CPT-4: J3301 03/23/2018 DRAIN/INJECT JOINT/BURSA CPT-4: 66628 03/12/2018 TRIAMCINOLONE ACET INJ NOS CPT-4: J3301 03/12/2018 ROCEPHIN, PER 250 MG CPT- 4: J0696 02/08/2018 ADMIN INFLUENZA VIRUS VAC CPT-4: G0008 06/18/2017 FLU VACC PRSV FREE INC ANTIG CPT-4: 39207 06/18/2017 URINALYSIS NONAUTO W/O SCOPE CPT-4: 56545 04/27/2017 URINALYSIS NONAUTO W/O SCOPE CPT-4: 24472 2017 DRAIN/INJECT JOINT/BURSA CPT-4: 55540 03/03/2017 TRIAMCINOLONE ACET INJ NOS CPT-4: J3301 03/03/2017 TRIAMCINOLONE ACET INJ NOS CPT-4: J3301 10/06/2016 ROCEPHIN, PER 250 MG CPT- 4: J0696 10/06/2016 THER/PROPH/DIAG INJ SC/IM CPT-4: 68439 10/06/2016 TRIAMCINOLONE ACET INJ NOS CPT-4: J3301 04/28/2016 URINALYSIS NONAUTO W/O SCOPE CPT-4: 33770 04/03/2016 ADMIN INFLUENZA VIRUS VAC CPT-4: G0008 07/03/2015 FLU VACC PRSV FREE INC ANTIG CPT-4: 21998 07/03/2015 Vital Signs Date Vital 11/01/2018 Blood Pressure 1: 132/85 Code: 8480-6 BMI: 27.3 Code: 74369-3 Height: 5'6" Weight: 169 lbs 09/30/2018 Blood Pressure 1: 142/80 Code: 8480-6 BMI: 27.3 Code: 60250-6 Heart Rate 1: 84 bpm Height: 5'6" SpO2: 96% Weight: 169 lbs 07/20/2018 Blood Pressure 1: 124/70 Code: 8480-6 Heart Rate 1: 76 bpm Height: SpO2: 95% Weight: 06/29/2018 Blood Pressure 1: 142/80 Code: 8480-6 BMI: 27.8 Code: 20416-5 Heart Rate 1: 89 bpm Height: 5'6" SpO2: 94% Weight: 172 lbs 06/08/2018 Blood Pressure 1: 144/66 Code: 8480-6 BMI: 27.9 Code: 61170-0 Heart Rate 1: 85 bpm Height: 5'6" SpO2: 97% Waist Measure (cm): 97 cm Weight: 173 lbs 05/24/2018 Blood Pressure 1: 128/72 Code: 8480-6 BMI: 27.9 Code: 45918-0 Heart Rate 1: 82 bpm Height: 5'6" SpO2: 92% Weight: 173 lbs 04/06/2018 Blood Pressure 1: 138/88 Code: 8480-6 Heart Rate 1: 86 bpm Height: SpO2: 96% Weight: 03/23/2018 Blood Pressure 1: 150/88 Code: 8480-6 Heart Rate 1: 80 bpm Height: SpO2: 96% Weight: 03/12/2018 Heart Rate 1: 90 bpm Height: Weight: 03/02/2018 Blood Pressure 1: 128/80 Code: 8480-6 BMI: 28.4 Code: 33124-2 Heart Rate 1: 83 bpm Height: 5'6" SpO2: 93% Weight: 176 lbs 02/08/2018 Blood Pressure 1: 142/80 Code: 8480-6 Heart Rate 1: 78 bpm Height: 5'6" SpO2: 94% 12/03/2017 Blood Pressure 1: 124/78 Code: 8480-6 BMI: 27.9 Code: 14028-6 Heart Rate 1: 70 bpm Height: 5'6" SpO2: 97% Weight: 173 lbs 10/27/2017 Blood Pressure 1: 126/60 Code: 8480-6 Heart Rate 1: 65 bpm Height: 5'6" SpO2: 98% Weight: 10/12/2017 Blood Pressure 1: 126/74 Code: 8480-6 BMI: 26.0 Code: 53255-0 Heart Rate 1: 80 bpm Height: 5'6" SpO2: 89% Weight: 161 lbs 10/06/2017 Blood Pressure 1: 126/70 Code: 8480-6 BMI: 27.2 Code: 19904-3 Heart Rate 1: 73 bpm Height: 5'6" SpO2: 97% Weight: 168 lbs 8 oz 08/05/2017 Blood Pressure 1: 152/78 Code: 8480-6 BMI: 27.1 Code: 81308-5 Heart Rate 1: 73 bpm Height: 5'6" SpO2: 98% Weight: 168 lbs 07/06/2017 Blood Pressure 1: 148/70 Code: 8480-6 BMI: 26.6 Code: 15308-5 Heart Rate 1: 80 bpm Height: 5'6" SpO2: 97% Weight: 165 lbs 06/18/2017 Blood Pressure 1: 132/68 Code: 8480-6 BMI: 26.8 Code: 44078-1 Heart Rate 1: 84 bpm Height: 5'6" [...] 1: 162/84 Code: 8480-6 BMI: 28.1 Code: 58445-0 Heart Rate 1: 98 bpm Height: 5'6" SpO2: 97% Weight: 174 lbs 03/03/2017 Blood Pressure 1: 154/88 Code: 8480-6 Heart Rate 1: 96 bpm Height: SpO2: 95% Weight: 01/05/2017 Blood Pressure 1: 142/78 Code: 8480-6 BMI: 28.9 Code: 89448-2 Heart Rate 1: 94 bpm Height: 5'6" SpO2: 95% Weight: 179 lbs 12/19/2016 Blood Pressure 1: 130/74 Code: 8480-6 Heart Rate 1: 91 bpm Height: 5'6" SpO2: 97% Weight: 11/13/2016 Blood Pressure 1: 152/82 Code: 8480-6 BMI: 28.4 Code: 62977-7 Heart Rate 1: 85 bpm Height: 5'6" SpO2: 96% Weight: 176 lbs 10/16/2016 Blood Pressure 1: 148/72 Code: 8480-6 BMI: 28.4 Code: 21508-8 Heart Rate 1: 90 bpm Height: 5'6" SpO2: 96% Weight: 176 lbs 10/06/2016 Blood Pressure 1: 150/80 Code: 8480-6 BMI: 28.4 Code: 00906-1 Heart Rate 1: 76 bpm Height: 5'6" SpO2: 97% Weight: 176 lbs 07/02/2016 Blood Pressure 1: 142/78 Code: 8480-6 BMI: 27.8 Code: 49034-6 Heart Rate 1: 85 bpm Height: 5'6" SpO2: 97% Weight: 172 lbs 05/21/2016 Blood Pressure 1: 166/80 Code: 8480-6 BMI: 27.9 Code: 13642-4 Heart Rate 1: 79 bpm Height: 5'6" SpO2: 98% Weight: 173 lbs 05/07/2016 Blood Pressure 1: 140/70 Code: 8480-6 BMI: 27.9 Code: 50018-5 Heart Rate 1: 82 bpm Height: 5'6" SpO2: 96% Weight: 173 lbs 04/28/2016 Blood Pressure 1: 128/86 Code: 8480-6 BMI: 27.4 Code: 20098-6 Heart Rate 1: 86 bpm Height: 5'6" SpO2: 96% Temperature: 36.1 (C) / 97.0 (F) Weight: 170 lbs 04/07/2016 Blood Pressure 1: 150/80 Code: 8480-6 Heart Rate 1: 94 bpm Height: SpO2: 95% Weight: 04/03/2016 Blood Pressure 1: 122/76 Code: 8480-6 BMI: 27.4 Code: 18483-2 Heart Rate 1: 84 bpm Height: 5'6" SpO2: 94% Weight: 170 lbs 01/31/2016 Blood Pressure 1: 124/82 Code: 8480-6 BMI: 27.8 Code: 46235-9 Heart Rate 1: 100 bpm Height: 5'6" SpO2: 97% Weight: 172 lbs 11/29/2015 Blood Pressure 1: 140/82 Code: 8480-6 Blood Pressure 1: 130/84 Code: 8480-6 BMI: 27.4 Code: 94950-5 Heart Rate 1: 97 bpm Height: 5'6" SpO2: 95% Weight: 170 lbs 10/01/2015 Blood Pressure 1: 130/80 Code: 8480-6 BMI: 27.4 Code: 96328-7 Heart Rate 1: 82 bpm Height: 5'6" SpO2: 97% Weight: 170 lbs 08/30/2015 Blood Pressure 1: 120/68 Code: 8480-6 BMI: 27.6 Code: 63489-0 Heart Rate 1: 91 bpm Height: 5'6" SpO2: 96% Weight: 171 lbs 07/31/2015 Blood Pressure 1: 180/80 Code: 8480-6 BMI: 27.4 Code: 92601-2 Heart Rate 1: 60 bpm Height: 5'6" SpO2: 94% Weight: 170 lbs 07/03/2015 Blood Pressure 1: 154/80 Code: 8480-6 BMI: 27.4 Code: 01197-8 Heart Rate 1: 98 bpm Height: 5'6" SpO2: 95% Weight: 170 lbs 04/10/2015 Blood Pressure 1: 138/72 Code: 8480-6 BMI: 27.8 Code: 96124-7 Heart Rate 1: 82 bpm Height: 5'6" SpO2: 98% Weight: 172 lbs 01/11/2015 Blood Pressure 1: 132/74 Code: 8480-6 BMI: 28.6 Code: 96570-9 Heart Rate 1: 88 bpm Height: 5'6" [...] data Encounters Encounter Performer Location Codes Date ([id number]) 94820 EST. PATIENT, LEVEL III Diagnosis: Dysuria[ICD10: R30.0] Diagnosis: Other specified noninflammatory disorders of vagina[ICD10: N89.8] Mimi Anaya MD, [facility] CPT-4: 76568 11/01/2018 ([id number]) 77491 EST. PATIENT, LEVEL IV Diagnosis: Essential (primary) hypertension[ICD10: I10] Diagnosis: Atrophy of thyroid (acquired)[ICD10: E03.4] [facility] CPT-4: 49403 09/30/2018 ([id number]) 28447 EST. PATIENT, LEVEL III Diagnosis: Atrophy of thyroid (acquired)[ICD10: E03.4] Diagnosis: Essential (primary) hypertension[ICD10: I10] Carleen Anaya MD, [facility] CPT-4: 52093 07/20/2018 ([id number]) 66072 EST. PATIENT, LEVEL IV Diagnosis: Essential (primary) hypertension[ICD10: I10] Diagnosis: Atrophy of thyroid (acquired)[ICD10: E03.4] Diagnosis: Other fatigue[ICD10: R53.83] Diagnosis: Other insomnia[ICD10: G47.09] Carleen Anaya MD, [facility] CPT-4: 58165 06/29/2018 ([id number]) 16953 EST. PATIENT, LEVEL IV Diagnosis: Localized edema[ICD10: R60.0] Diagnosis: Muscle weakness (generalized)[ICD10: M62.81] Diagnosis: Dysuria[ICD10: R30.0] Diagnosis: correction (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 of anticoagulants[ICD10: Z79.01] Diagnosis: Essential (primary) hypertension[ICD10: I10] Mimi Anaya MD, [facility] CPT-4: 61257 05/24/2018 ([id number]) 16167 EST. PATIENT, LEVEL III Diagnosis: Lumbago with sciatica, right side[ICD10: M54.41] Diagnosis: Sciatica, right side[ICD10: M54.31] Carleen Anaya MD, [facility] CPT- 4: 11650 04/06/2018 ([id number]) 77987 EST. PATIENT, LEVEL III Diagnosis: Lumbago with sciatica, right side[ICD10: M54.41] Diagnosis: Sciatica, right side[ICD10: M54.31] Carleen Anaya MD, [facility] CPT- 4: 97084 03/23/2018 03592 EST. PATIENT, LEVEL III Diagnosis: Low back pain[ICD10: M54.5] Diagnosis: Sacroiliitis, not elsewhere classified[ICD10: M46.1] Wendi Anaya MD, [facility] CPT-4: 40168 03/12/2018 ([id number]) 02763 EST. PATIENT, LEVEL IV Diagnosis: Atrophy of thyroid (acquired)[ICD10: E03.4] Diagnosis: Essential (primary) hypertension[ICD10: I10] Diagnosis: Urge incontinence[ICD10: N39.41] Carleen Anaya MD, [facility] CPT-4: 43838 03/02/2018 ([id number]) 84792 EST. PATIENT, LEVEL III Diagnosis: Cellulitis of face[ICD10: L03.211] Mimi Anaya MD, [facility] CPT- 4: 03296 02/08/2018 ([id number]) 98211 EST. PATIENT, LEVEL IV Diagnosis: Atrophy of thyroid (acquired)[ICD10: E03.4] Diagnosis: Essential (primary) hypertension[ICD10: I10] Diagnosis: Urge incontinence[ICD10: N39.41] Carleen Anaya MD, [facility] CPT-4: 20982 12/03/2017 54463 EST. PATIENT, LEVEL IV Diagnosis: Essential (primary) hypertension[ICD10: I10] Diagnosis: Weakness[ICD10: R53.1] Diagnosis: Low back pain[ICD10: M54.5] Diagnosis: Other allergic rhinitis[ICD10: J30.89] Wendi Anaya MD, [facility] CPT- 4: 94370 10/27/2017 47801 EST. PATIENT, LEVEL IV Diagnosis: Pneumonia due to other specified bacteria[ICD10: J15.8] Diagnosis: Chronic systolic (congestive) heart failure[ICD10: I50.22] Wendi Anaya MD, [facility] CPT-4: 85190 10/12/2017 ([id number]) 25356 EST. PATIENT, LEVEL IV Diagnosis: Atrophy of thyroid (acquired)[ICD10: E03.4] Diagnosis: Nonscarring hair loss, unspecified[ICD10: L65.9] Diagnosis: Essential (primary) hypertension[ICD10: I10] Carleen Anaya MD, [facility] CPT-4: 40246 10/06/2017 ([id number]) 69300 EST. PATIENT, LEVEL IV Diagnosis: Atrophy of thyroid (acquired)[ICD10: E03.4] Diagnosis: Essential (primary) hypertension[ICD10: I10] Diagnosis: Localized edema[ICD10: R60.0] Carleen Anaya MD, [facility] CPT-4: 58405 08/05/2017 ([id number]) 18308 EST. PATIENT, LEVEL IV Diagnosis: Essential (primary) hypertension[ICD10: I10] Diagnosis: Weakness[ICD10: R53.1] Diagnosis: Other fecal abnormalities[ICD10: R19.5] Carleen Anaya MD, [facility] CPT-4: 25245 07/06/2017 ([id number]) 55306 EST. 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 PATIENT, LEVEL IV Diagnosis: Pain in right shoulder[ICD10: M25.511] Diagnosis: Weakness[ICD10: R53.1] Diagnosis: Other fatigue[ICD10: R53.83] Diagnosis: Other malaise[ICD10: R53.81] Wendi Anaya MD, [facility] CPT-4: 53034 05/11/2017 ([id number]) Miscellaneous no charge Diagnosis: Essential (primary) hypertension[ICD10: I10] Mimi Anaya MD, [facility] CPT-4: 47691 04/30/2017 ([id number]) 80800 EST. PATIENT, LEVEL III Diagnosis: Acute recurrent maxillary sinusitis[ICD10: J01.01] Diagnosis: Urinary tract infection, site not specified[ICD10: N39.0] Mimi Anaya MD, [facility] CPT-4: 86598 04/27/2017 ([id number]) 46841 EST. PATIENT, LEVEL IV Diagnosis: Atrophy of thyroid (acquired)[ICD10: E03.4] Diagnosis: Essential (primary) hypertension[ICD10: I10] Diagnosis: Iron deficiency[ICD10: E61.1] Diagnosis: Other specified heart block[ICD10: I45.5] Carleen Anaya MD, [facility] CPT-4: 96299 04/08/2017 58245 EST. PATIENT, LEVEL III Diagnosis: Low back pain[ICD10: M54.5] Diagnosis: Sacroiliitis, not elsewhere classified[ICD10: M46.1] Wendi Anaya MD, [facility] CPT-4: 61706 03/03/2017 ([id number]) 79687 EST. PATIENT, LEVEL IV Diagnosis: Essential (primary) hypertension[ICD10: I10] Diagnosis: Atrophy of thyroid (acquired)[ICD10: E03.4] Diagnosis: Vascular dementia without behavioral disturbance[ICD10: F01.50] Carleen Anaya MD [facility] CPT-4: 50886 01/05/2017 14107 EST. PATIENT, LEVEL III Diagnosis: Cervicalgia[ICD10: M54.2] Diagnosis: Other muscle spasm[ICD10: M62.838] Wendi Anaya MD [facility] CPT-4: 18467 12/19/2016 ([id number]) 81879 EST. PATIENT, LEVEL III Diagnosis: Essential (primary) hypertension[ICD10: I10] Diagnosis: Gastro-esophageal reflux disease without esophagitis[ICD10: K21.9] Carleen Anaya MD [facility] CPT-4: 88400 11/13/2016 ([id number]) 77655 EST. PATIENT, LEVEL III Diagnosis: Pain in right shoulder[ICD10: M25.511] Diagnosis: Insomnia due to medical condition[ICD10: G47.01] Carleen Anaya MD [facility] CPT-4: 41699 10/16/2016 ([id number]) 37276 EST. PATIENT, LEVEL IV Diagnosis: Pneumonia due to other specified bacteria[ICD10: J15.8] Diagnosis: Pain in right shoulder[ICD10: M25.511] Diagnosis: Cough[ICD10: R05] Carleen Anaya MD [facility] CPT-4: 49562 10/06/2016 ([id number]) 59966 EST. PATIENT, LEVEL IV Diagnosis: Essential (primary) hypertension[ICD10: I10] Diagnosis: Personal history of other specified conditions[ICD10: Z87.898] Diagnosis: Unsteadiness on feet[ICD10: R26.81] Carleen Anaya MD, [facility] CPT- 4: 28127 07/02/2016 ([id number]) 46925 EST. PATIENT, LEVEL IV Diagnosis: Dysphagia, pharyngeal phase[ICD10: R13.13] Diagnosis: Urge incontinence[ICD10: N39.41] Diagnosis: Gastro-esophageal reflux disease without esophagitis[ICD10: K21.9] Carleen Anaya MD, [facility] CPT-4: 40223 05/21/2016 ([id number]) 69101 EST. PATIENT, LEVEL III Diagnosis: Gastro-esophageal reflux disease without esophagitis[ICD10: K21.9] Carleen Anaya MD [facility] CPT-4: 89019 05/07/2016 ([id number]) 73516 EST. PATIENT, LEVEL III Diagnosis: Acute laryngopharyngitis[ICD10: J06.0] Diagnosis: Dysphagia, pharyngeal phase[ICD10: R13.13] Diagnosis: Allergic rhinitis due to pollen[ICD10: J30.1] Mimi Anaya MD [facility] CPT-4: 54407 04/28/2016 ([id number]) Miscellaneous no charge Diagnosis: Acute laryngopharyngitis[ICD10: J06.0] Wendi Anaya MD, [facility] CPT- 4: 37603 04/10/2016 44520 EST. 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 PATIENT, LEVEL IV Diagnosis: Essential (primary) hypertension[ICD10: I10] Diagnosis: Hypothyroidism, unspecified[ICD10: E03.9] Diagnosis: Other fatigue[ICD10: R53.83] Diagnosis: Urge incontinence[ICD10: N39.41] Mimi Anaya MD, [facility] CPT- 4: 85556 04/03/2016 ([id number]) 69036 EST. PATIENT, LEVEL IV Diagnosis: Essential (primary) hypertension[ICD10: I10] Diagnosis: Pain in right ankle and joints of right foot[ICD10: M25.571] Diagnosis: Dizziness and giddiness[ICD10: R42] Diagnosis: Tinnitus, bilateral[ICD10: H93.13] Mimi Anaya MD, [facility] CPT- 4: 26205 01/31/2016 ([id number]) 60826 EST. PATIENT, LEVEL IV Diagnosis: Essential (primary) hypertension[ICD10: I10] Diagnosis: Otalgia, right ear[ICD10: H92.01] Diagnosis: Allergic rhinitis due to pollen[ICD10: J30.1] Diagnosis: Hypothyroidism, unspecified[ICD10: E03.9] Mimi Anaya MD, [facility] CPT-4: 62644 11/29/2015 ([id number]) 97402 EST. PATIENT, LEVEL IV Diagnosis: Essential (primary) hypertension[ICD10: I10] Diagnosis: Urge incontinence[ICD10: N39.41] Diagnosis: Unspecified dementia without behavioral disturbance[ICD10: F03.90] Mimi Anaya MD, [facility] CPT-4: 63514 10/01/2015 ([id number]) 97648 EST. PATIENT, LEVEL IV Diagnosis: Essential (primary) hypertension[ICD10: I10] Diagnosis: Hypothyroidism, unspecified[ICD10: E03.9] Diagnosis: Unspecified dementia without behavioral disturbance[ICD10: F03.90] Diagnosis: Urge incontinence[ICD10: N39.41] Mimi Anaya MD, [facility] CPT- 4: 11647 08/30/2015 ([id number]) 72016 EST. PATIENT, LEVEL IV Diagnosis: Essential (primary) hypertension[ICD10: I10] Diagnosis: Hypothyroidism, unspecified[ICD10: E03.9] Diagnosis: Hyperlipidemia, unspecified[ICD10: E78.5] Carleen Anaya MD, [facility] CPT-4: 04730 07/31/2015 ([id number]) 01718 EST. 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 PATIENT, LEVEL IV Diagnosis: ESSENTIAL HYPERTENSION[ICD9: 401.9] Diagnosis: MACULAR DEGENERATION[ICD9: 362.50] Diagnosis: Peripheral vascular disease[ICD9: 443.9] Diagnosis: Neuropathy[ICD9: 355.9] [facility] CPT-4: 89686 04/10/2015 ([id number]) OFFICE/OUTPATIENT VISIT NEW Diagnosis: ESSENTIAL HYPERTENSION[ICD9: 401.9] Diagnosis: HYPOTHYROIDISM[ICD9: 244.9] Diagnosis: URGE INCONTINENCE[ICD9: 788.31] Diagnosis: Constipation - functional[ICD9: 564.09] [facility] CPT-4: 46842 01/11/2015 Plan of Care Planned Activity Notes Codes Status Date Visit Plan: Possible vaginal bleeding -patient has a history of total hysterectomy -no obvious bleeding today upon inspection -will culture urine -monitor symptoms and call if bleeding persists or worsens. 11/01/2018 Appointment: Mimi Espinosa WPtel: [facility]7 [phone] (30 min) Complex 11/01/2018 Patient [...] control. 09/30/2018 Appointment: Carleen Anaya WPtel: [phone] [facility] [place] (15 min) Moderate 09/30/2018 Patient Education: Patient Medication Summary Completed 09/30/2018 [phone] ([facility]) Moderate 09/22/2018 Visit Plan: Hypothyroidism [...] home. 07/20/2018 App[facility]ment: [phone] (15 min) Moderate 07/20/2018 Patient Education: [...] this time. 06/29/2018 Appointment: [phone] (15 min) Moderate 06/29/2018 Patient Education: [...] care surrogate. 06/08/2018 Appointment: Mimi Espinosa WPtel: [facility]5 [place] [phone] [facility] - Annual Wellness Visit 06/08/2018 Patient Education: [...] edema. Weakness-fatigue- check labs Dysuria- check UA SCQ-okcunuebdj-ez changes in medications 05/24/2018 Appointment: Mimi Espinosa WPtel: [facility]6 [phone] (15 min) Moderate 05/24/2018 Patient Education: Patient Medication Summary Completed 05/24/2018 Appointment: Injection 05/20/2018 Patient Education: Patient Medication Summary Completed 05/20/2018 Visit Plan: Sciatica- pt to continue with aleve twice daily and cyclobenzaprine x 1 week. Pt is to call if the symptoms do not improve or if they worsen. referral to [facility] physical therapy. 04/06/2018 Appointment: Carleen Anaya WPtel: [facility]7 [facility]66[facility] (15 min) Moderate 04/06/2018 Patient Education: Patient [...] do not improve or if they worsen. [id number] - andrew 03/23/2018 Appointment: Carleen Anaya WPtel: [phone] [facility] (15 min) Moderate 03/23/2018 Patient Education: Patient [...] injection. 03/12/2018 Appointment: Wendi Uriostegui WPtel: [phone] [facility] (30 min) Complex 03/12/2018 Patient [...] myrbetric 03/02/2018 Appointment: Carleen Anaya WPtel: [phone] [facility] (15 min) Moderate 03/02/2018 Patient Education: Patient Medication Summary Completed 03/02/2018 Appointment: (10 min) Simple 02/09/2018 Visit Plan: Cellulitis - start oral antibiotics as directed, return to clinic as directed, call for acute change in symptoms, worsening redness, warmth, discharge. 02/08/2018 Appointment: Mimi Espinosa WPtel: [phone] [phone] [place] (15 min) Moderate 02/08/2018 [...] daily. 12/03/2017 Appointment: Carleen Anaya WPtel: [phone] [facility] (15 min) Moderate 12/03/2017 Patient Education: Patient [...] allergy spray. 10/27/2017 Appointment: Wendi Uriostegui WPtel: [phone] [facility] (15 min) Moderate 10/27/2017 Patient Education: Patient Medication Summary Completed 10/27/2017 Visit Plan: Pneumonia - Pt has been diagnosed with pneumonia by physical exam. A chest xray has been ordered as have antibiotics. The pt is aware of the diagnosis and the need for acute treatment of this illness. 10/12/2017 Appointment: Wendi Uriostegui WPtel: [phone] [facility] [place] (15 min) Moderate 10/12/2017 Patient Education: [...] labs today. 10/06/2017 Appointment: [phone] [place] (15 min) Moderate 10/06/2017 Patient Education: [...] prn. 08/05/2017 Appointment: [phone] [place] (15 min) Moderate 08/05/2017 Patient Education: Patient Medication Summary Completed 08/05/2017 Appointment: Carleen Anaya WPtel: [facility]0 [facility] [place] (15 min) Moderate 07/14/2017 Visit Plan: [...] voltaren gel. 07/06/2017 Appointment: Carleen Anaya WPtel: [address] [place], [place] [phone] (15 min) Moderate 07/06/2017 Patient Education: Patient [...] shot today 06/18/2017 Appointment: Carleen Anaya WPtel: [facility] [place] (15 min) Moderate 06/18/2017 Patient Education: Patient Medication Summary Completed 06/18/2017 Appointment: Nurse Visit 05/12/2017 Care Plan: X-RAY EXAM OF SHOULDER LOINC : 39281-5 Pending 05/12/2017 Visit Plan: Weakness, fatigue, malaise - Discussed with Dr. Anaya - pt sent for IV fluids, will check labs and UA - will treat as indicated - pt is to keep her appointment with her wool sampler for her ECHO and Carotid US. Pt is to follow up with her oncologist. Right shoulder pain after fall - will send for X-ray - The pt is to use prn antiinflammatories to manage acute pain. The patient is to call the office if the pain is worsening or does not improve. 05/11/2017 Appointment: [facility]ui [phone] (30 min) Complex 05/11/2017 Patient Education: Patient [...] of plan. 04/27/2017 Appointment: Mimi Espinosa WPtel: [phone] [phone] (15 min) Moderate 04/27/2017 Patient Education: Patient [...] heart beat - recommended evaluation by her Tax Evaluator - Dr. Butler - I attempted a phone call to the office of Dr. Butler, I had to leave a message on the answering machine. If i don't hear back from Dr. Butler's office, we will need to do a Holter monitor on patient. 04/08/2017 Appointment: Carleen Anaya WPtel: [phone] [email or web address]] (15 min) Moderate 04/08/2017 Patient Education: Patient Medication Summary Completed 04/08/2017 Care Plan: Referral Order SNOMED-CT : [id number] Pending 04/08/2017 Visit Plan: UTI - pt [...] of injection. 03/03/2017 Appointment: Wendi Uriostegui WPtel: [phone] [facility] [[email or web address] (30 min) Complex 03/03/2017 Patient Education: Patient [...] Anaya WPtel: [phone] [facility] [place] [place] (15 min) Moderate 01/05/2017 Patient Education: Patient Medication Summary Completed 01/05/2017 Visit Plan: Neck Pain- pt to start with aspercreme or biofreeze to neck three times daily and start neck exercises daily. Will send RX - The patient is to call the office if the pain is worsening or does not improve. 12/19/2016 Appointment: Wendi Uriostegui WPtel: [facility]8 [facility] (30 min) Complex 12/19/2016 Patient [...] not improving. 11/13/2016 Appointment: Carleen Anaya WPtel: [facility]3 [facility] [place] (15 min) Moderate 11/13/2016 Patient Education: Patient Medication Summary Completed 11/13/2016 Visit Plan: Insomnia -extended release melatonin - you can take up to 10mg of melatonin sleepy time tea - - use warm milk in the tea. Right shoulder - pt to continue with therapy, anti-inflammatory 10/16/2016 Appointment: Carleen Anaya WPtel: [facility]1 [facility] [place] [place] (15 min) Moderate 10/16/2016 Patient Education: [...] pt. 10/06/2016 [phone] ([facility]) Moderate 10/06/2016 Patient Education: Patient Medication Summary Completed 10/06/2016 Care Plan: X-RAY EXAM OF SHOULDER LOINC : 18244-1 Pending 10/06/2016 Appointment: Carleen Anaya WPtel: [phone] [facility] [place] (30 min) Complex 10/01/2016 [email or web address] Patient informed. Completed 07/08/2016 Visit Plan: Hypertension [...] discussed therapy. 07/02/2016 Appointment: Carleen Anaya WPtel: [facility]5 [facility] [place] (15 min) Moderate 07/02/2016 Patient Education: Patient Medication Summary Completed 07/02/2016 Care Plan: Referral Order SNOMED-CT : [id number] Pending 07/02/2016 Visit Plan: Hypertension - well [...] in 2017 05/21/2016 Appointment: Carleen Anaya WPtel: [facility] [email or web address] (15 min) Moderate 05/21/2016 Patient Education: Patient Medication Summary Completed 05/21/2016 Referral: Medardo Del Real [address] Referral Completed 05/12/2016 Visit Plan: Esophageal [...] times daily 05/07/2016 Appointment: Carleen Anaya WPtel: [facility]8 [address] (15 min) Moderate 05/07/2016 Patient Education: Patient Medication Summary Completed 05/07/2016 Appointment: Mimi Espinosa WPtel: [facility]8 [phone] (30 min) Complex 05/01/2016 Visit Plan: Allergies [...] Kenalog injection today in the office Sore fyjihf-tftwqujol-mgicr dexilant-refer to Dr Del Real for evaluation 04/28/2016 Appointment: Mimi Espinosa WPtel: [facility]9 [phone] (30 min) Complex 04/28/2016 Patient [...] medication switched. 04/07/2016 Appointment: Wend[facility]ostegui [phone] ([place]) Complex 04/07/2016 Patient Education: Patient [...] atigue-check labs including UA-culture if positive Urge jlpxwcqbanhz-yizrhbwpv-kizsz UA with C&S 04/03/2016 Appointment: Mimi Espinosa WPtel: [facility]5 [phone] (30 min) Complex 04/03/2016 Patient Education: Patient Medication Summary Completed 04/03/2016 Visit Plan: Hypertension - well controlled - continue with current medications, continue with no added salt diet. Pt has been encouraged to exercise daily. The pt has been advised to call the office if there are any acute concerns about change in blood pressure readings at home. Vgwxxtgxo-ljbacfkq-kubayrjm MRI brain Right ankle cshy-fdtlewd-rdep right ankle- plan to refer to physical therapy if appropriate 01/31/2016 Appointment: Mimi Espinosa WPtel: [facility]5 [phone] (30 min) Complex 01/31/2016 Patient [...] to medications. 07/31/2015 Appointment: Carleen Anaya WPtel: [address] [place], [place] [address] (15 min) Moderate 07/31/2015 Patient Education: Patient Medication Summary Completed 07/31/2015 Patient Education: Hypertension Completed 07/31/2015 Care Plan: Referral Order SNOMED-CT : [id number] Ordered 07/31/2015 Visit Plan: Hypertension - uncontrolled [...] on Nortryptyline 07/03/2015 Appointment: Carleen Anaya WPtel: [address] [place], [place] [id number] (15 min) Moderate 07/03/2015 Patient Education: Patient [...] 01/11/2015 Referral: [facility] WPtel: [phone] Referral Appointment Requested Referral: External, Ordering Provider Referral Appointment Requested Referral: External, Ordering Provider Referral Relationship Referral: Medardo Del Real [address] Referral Appointment Requested Instructions Comment Flonase [...] heart beat - recommended evaluation by her Tax Evaluator - Dr. Butler - I attempted a [...] Kenalog injection today in the office Sore nxthhw-xschllwtk-kuunp dexilant-refer to Dr Del Real for evaluation [...] protein. high dose flu shot today . Possible vaginal bleeding -patient has a [...] Fatigue-check labs including UA-culture if positive Urge smcozproqzuw-wishzjqyl-xqugf UA with C&S add z-pack, continue cefdinir [...] edema. Weakness-fatigue- check labs Dysuria- check UA PUZ-pkyepnfgxr-sl changes in medications . Hypertension - well controlled - continue with current medications, continue with no added salt diet. Pt has been encouraged to exercise daily. The pt has been advised to call the office if there are any acute concerns about change in blood pressure readings at home. Zhjcvzxmc-kglnopjf-mavwyybh MRI brain Right ankle vbkj-fozmdbz-djav right ankle-plan to refer to physical therapy [...] improve or if they worsen. referral to [facility] physical therapy. . Hypertension - [...] do not improve or if they worsen. [id number] - kenalog Stop Oxybutynin chloride ER. Start [...] is to keep her appointment with her wool sampler for her ECHO and Carotid US. Pt [...]
--- OUTSIDE RECORDS SUMMARY | 2019-01-01 12:17 | XMS REPORT | CCD ---
Author Author [facility] Organization [facility] Address [address] [place] [address] Phone Care Team Providers Care University Counselor Name Role Phone PP Unavailable CCM Unavailable Summary Purpose Interface Exchange Insurance Providers Payer name Policy type / Coverage type Covered democrat ID Effective Begin Date Effective End Date WPS Medicare Part B Medicare Part B [id number] Unknown Unknown [facility] Medicare Part B [id number] Unknown Unknown Family history Father Diagnosis Age At Onset Cancer Unknown Arthritis Unknown Mother Diagnosis Age At Onset Breast cancer Unknown Arthritis Unknown Social History Social History Element Codes Description Effective Dates Alcohol history Unknown occasionally drinks alcohol 06/08/2018 Frequency of drinks SNOMED CT: 649148265 Drinks rarely 06/08/2018 Marital status Unknown 01/11/2015 Number of children Unknown 3 01/11/2015 Employment Unknown Retired 01/11/[address]: 8830146 Quit over 10 years ago 1950 01/11/[address]: 334879450 Never drinks alcohol 01/11/2015 Allergies, Adverse Reactions, Alerts Substance Reaction Codes Entered Date Inactivated Date Status * OTHER REACTION - SEE ANSWER BOX vancogein red Unknown 01/11/2015 No Inactive Date Active CODEINE RxNorm: 2670 01/11/2015 No Inactive Date Active demerol RxNorm: 500603 08/30/2015 No Inactive Date Active hydrocodone Unknown [...] ICD-9: V70.0 ICD-10: Z00.01 Active 06/08/2018 Unknown Dysuria ICD-9: 788.1 ICD-10: R30.0 Active 2017 Unknown Localized edema ICD-9: 782.3 ICD-10: R60.0 Active 08/05/2017 Unknown jail (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 of anticoagulants ICD-9: V58.61 ICD-10: [...] findings ICD-9: V70.0 ICD-10: Z00.01 06/08/2018 Active Dysuria ICD-9: 788.1 ICD-10: R30.0 2017 Active Localized edema ICD-9: 782.3 ICD-10: R60.0 08/05/2017 Active jail (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 of anticoagulants ICD-9: V58.61 ICD-10: [...] Fill Instructions Synthroid 175 mcg tablet RxNorm: 945415 1 Tablet(s) PO daily 09/30/2018 02/26/2019 Active this is an update on the dose - she is to take this daily - hold off on the 200mcg pills for now Synthroid 175 mcg tablet RxNorm: 658033 1 Tablet(s) PO 5 times weekly 09/30/2018 09/29/2018 Inactive alternate with 175mcg order losartan 25 mg tablet RxNorm: 556382 TAKE 1 TABLET BY MOUTH ONCE DAILY 08/30/2018 No Stop Date Active Myrbetriq 50 mg tablet,extended release RxNorm: 4619331 1 Tablet(s) PO daily 08/24/2018 12/21/2018 Active Synthroid 175 mcg tablet RxNorm: 216897 1 Tablet(s) PO 4 times a week Thu07/20/2018 09/29/2018 Inactive alternate with 175mcg order Synthroid 200 mcg tablet RxNorm: 659956 Tablet(s) TAKE ONE TABLET BY MOUTH ON THURSDAY, Thursday07/20/2018 09/29/2018 Inactive pantoprazole 40 mg tablet,delayed release RxNorm: 739429 TAKE ONE TABLET BY MOUTH TWICE DAILY 07/19/2018 No Stop Date Active furosemide 40 mg tablet RxNorm: 166365 1 Tablet(s) PO 2 times weekly with song butler 07/13/2018 No Stop Date Active Synthroid 200 mcg tablet RxNorm: 459438 TAKE ONE TABLET BY MOUTH ON THURSDAY, THURSDAY, AND Thursday07/13/2018 07/19/2018 Inactive Vitamin D3 400 unit capsule RxNorm: 461486 1 Capsule(s) PO daily 06/17/2018 No Stop Date Active Aspirin Low Dose 81 mg tablet,delayed release RxNorm: 878114 1 Tablet(s) PO BIW on Thursday and Thursday06/17/2018 No Stop Date Active biotin 1,000 mcg chewable tablet RxNorm: 5759662 1 Tablet(s) PO daily 06/17/2018 No Stop Date Active Vitamin B-12 500 mcg tablet RxNorm: 512691 1 Tablet(s) PO daily 06/17/2018 No Stop Date Active Colace 100 mg capsule RxNorm: 7283891 1 Capsule(s) PO QHS 06/08/2018 No Stop Date Active Coumadin 3 mg tablet RxNorm: 444003 1 Tablet(s) PO daily x5 days and 2 mg x2 days -Managed by Dr. Bowman 06/08/2018 No Stop Date Active Keflex 500 mg capsule RxNorm: 038790 1 Capsule(s) PO TID 05/25/2018 05/31/2018 Inactive metoprolol succinate ER 100 mg tablet,extended release 24 hr RxNorm: 388342 Tablet(s) TAKE ONE TABLET BY MOUTH ONCE DAILY 05/19/2018 No Stop Date Active Coumadin 3 mg tablet RxNorm: 570088 1 Tablet(s) PO daily -Managed by Dr. Bowman 05/04/2018 06/07/2018 Inactive Synthroid 175 mcg tablet RxNorm: 573795 TAKE 1 TABLET BY MOUTH ONCE DAILY 04/06/2018 06/07/2018 Inactive cyclobenzaprine 5 mg tablet RxNorm: 737020 1/2 Tablet(s) PO TID 04/06/2018 04/15/2018 Inactive Synthroid 200 mcg tablet RxNorm: 318953 1 Tablet(s) PO TIW [facility] 04/05/2018 07/12/2018 Inactive brand name only- Alternate with 175mcg dose schedule Synthroid 175 mcg tablet RxNorm: 052225 1 Tablet(s) PO 4 times a week Thu04/05/2018 07/19/2018 Inactive alternate with 175mcg order cyclobenzaprine 5 mg tablet RxNorm: 262906 1/2 Tablet(s) PO TID 03/23/2018 04/01/2018 Inactive tramadol 50 mg tablet RxNorm: 380295 1 Tablet(s) PO TID as needed 03/17/2018 No Stop Date Active Kenalog 40 mg/mL suspension for injection RxNorm: 9959101 2 Milliliter(s) Inj 03/12/2018 03/12/2018 Inactive prednisone 20 mg tablet RxNorm: 335104 2 Tablet(s) PO daily 03/11/2018 03/10/2018 Inactive prednisone 20 mg tablet RxNorm: 552461 2 Tablet(s) PO daily 03/11/2018 03/15/2018 Inactive losartan 25 mg tablet RxNorm: 255625 TAKE ONE TABLET BY MOUTH ONCE DAILY 02/16/2018 08/29/2018 Inactive doxycycline hyclate 100 mg tablet RxNorm: 0103195 1 Tablet(s) PO BID 02/08/2018 02/14/2018 Inactive ceftriaxone 500 mg solution for injection RxNorm: 0987591 Inj 02/08/2018 02/08/2018 Inactive dapsone 25 mg tablet RxNorm: 425574 2 Tablet(s) PO daily 02/08/2018 02/12/2018 Inactive metoprolol succinate ER 100 mg tablet,extended release 24 hr RxNorm: 863065 TAKE ONE TABLET BY MOUTH ONCE DAILY 01/05/2018 05/18/2018 Inactive Synthroid 175 mcg tablet RxNorm: 823954 1 Tablet(s) PO daily 01/01/2018 03/31/2018 Inactive Synthroid 175 mcg tablet RxNorm: 640967 1 Tablet(s) PO daily 01/01/2018 12/31/2017 Inactive Myrbetriq 50 mg tablet,extended release RxNorm: 0596110 1 Tablet(s) PO daily 12/03/2017 01/01/2018 Inactive Zithromax Z-Oliver 250 mg tablet RxNorm: 650015 1 Tablet(s) PO UD 10/12/2017 10/16/2017 Inactive Tessalon Perles 100 mg capsule RxNorm: 833292 2 Capsule(s) PO TID as needed 10/12/2017 10/16/2017 Inactive prednisone 20 mg tablet RxNorm: 385001 2 Tablet(s) PO daily 10/12/2017 10/16/2017 Inactive cefdinir 300 mg capsule RxNorm: 545720 1 Capsule(s) PO BID 10/08/2017 10/07/2017 Inactive Synthroid 150 mcg tablet RxNorm: 395235 1 Tablet(s) PO daily in morning, except 1/2 Tablet PO Wed, Sat, take 30 minutes before meal 10/08/2017 04/04/2018 Inactive brand name only cefdinir 300 mg capsule RxNorm: 187943 1 Capsule(s) PO BID 10/08/2017 10/14/2017 Inactive Synthroid 150 mcg tablet RxNorm: 912376 1 Tablet(s) PO daily in morning, take 30 minutes before meal 10/06/2017 10/07/2017 Inactive brand name only cefdinir 300 mg capsule RxNorm: 724826 1 Capsule(s) PO BID 08/24/2017 08/30/2017 Inactive Zithromax Z-Oliver 250 mg tablet RxNorm: 475720 1 Tablet(s) PO UD 08/20/2017 08/19/2017 Inactive Zithromax Z-Oliver 250 mg tablet RxNorm: 554379 1 Tablet(s) PO UD 08/20/2017 08/24/2017 Inactive Synthroid 150 mcg tablet RxNorm: 254876 1 Tablet(s) PO daily in morning, take 30 minutes before meal 08/05/2017 08/04/2017 Inactive Synthroid 150 mcg tablet RxNorm: 497255 1 Tablet(s) PO daily in morning, take 30 minutes before meal 08/05/2017 10/05/2017 Inactive Coumadin 3 mg tablet RxNorm: 975042 1 Tablet(s) PO Thursday, , , and Thu- Managed by Dr. Bowman -Managed by Dr. Bowman 08/05/2017 05/03/2018 Inactive pantoprazole 40 mg tablet,delayed release RxNorm: 066629 1 Tablet(s) PO BID 07/08/2017 07/02/2018 Inactive pantoprazole 40 mg tablet,delayed release RxNorm: 528844 1 Tablet(s) PO BID 07/08/2017 07/07/2017 Inactive metoprolol succinate ER 100 mg tablet,extended release 24 hr RxNorm: 014146 TAKE ONE TABLET BY MOUTH ONCE DAILY 07/08/2017 01/04/2018 Inactive Coumadin 3 mg tablet RxNorm: 343466 1 Tablet(s) PO QPM -Managed by Dr. Bowman 07/06/2017 08/04/2017 Inactive Coumadin 3 mg tablet RxNorm: 375627 1 Tablet(s) PO QPM at 6:00pm Managed by Dr Bowman 1/2 pill on thursday and thursday, full pill other days 06/18/2017 07/05/2017 Inactive Voltaren 1 % topical gel RxNorm: 527336 2 TOP QID 06/18/2017 10/15/2017 Inactive Micro-K 10 10 mEq capsule,extended release RxNorm: 682788 1 Capsule(s) PO daily 05/08/2017 12/02/2017 Inactive Synthroid 137 mcg tablet RxNorm: 297831 1 Tablet(s) PO QAM 05/08/2017 08/04/2017 Inactive Dose increased 04/14/17 pravastatin 10 mg tablet RxNorm: 293716 1 Tablet(s) PO daily TAKE ONE TABLET BY MOUTH ONCE DAILY 05/08/2017 12/02/2017 Inactive losartan 25 mg tablet RxNorm: 487679 1 Tablet(s) PO daily TAKE ONE TABLET BY MOUTH ONCE DAILY 05/08/2017 06/07/2018 Inactive Namenda 10 mg tablet RxNorm: 210271 TAKE ONE TABLET BY MOUTH TWICE DAILY 05/07/2017 12/02/2017 Inactive Keflex 500 mg capsule RxNorm: 428594 1 Capsule(s) PO TID 04/27/2017 05/03/2017 Inactive Synthroid 137 mcg tablet RxNorm: 385493 1 Tablet(s) PO QAM 04/14/2017 04/13/2017 Inactive Vitamin D2 50,000 unit capsule RxNorm: 791453 1 Capsule(s) PO QW 04/14/2017 12/02/2017 Inactive Synthroid 137 mcg tablet RxNorm: 842508 1 Tablet(s) PO QAM 04/14/2017 05/07/2017 Inactive losartan 25 mg tablet RxNorm: 099067 TAKE ONE TABLET BY MOUTH ONCE DAILY 03/23/2017 05/07/2017 Inactive Synthroid 125 mcg tablet RxNorm: 191502 TAKE ONE TABLET BY MOUTH ONCE DAILY 03/12/2017 04/12/2017 Inactive ciprofloxacin 500 mg tablet RxNorm: 286128 1 Tablet(s) PO BID 2017 03/13/2017 Inactive prednisone 20 mg tablet RxNorm: 425477 2 Tablet(s) PO daily 03/03/2017 03/07/2017 Inactive tramadol 50 mg tablet RxNorm: 786778 1/2 Tablet(s) PO TID as needed 03/03/2017 12/02/2017 Inactive pravastatin 10 mg tablet RxNorm: 072978 TAKE ONE TABLET BY MOUTH ONCE DAILY 01/19/2017 05/07/2017 Inactive nortriptyline 10 mg capsule RxNorm: 070656 TAKE ONE CAPSULE BY MOUTH ONCE DAILY IN THE EVENING 01/14/2017 12/02/2017 Inactive Voltaren 1 % topical gel RxNorm: 842895 TOP QID 12/22/2016 02/19/2017 Inactive Voltaren 1 % topical gel RxNorm: 494064 TOP QID 12/22/2016 12/21/2016 Inactive prednisone 20 mg tablet RxNorm: 951248 2 Tablet(s) PO daily 12/19/2016 12/23/2016 Inactive cyclobenzaprine 5 mg tablet RxNorm: 794594 1/2 Tablet(s) PO BID as needed 12/19/2016 12/23/2016 Inactive Flector 1.3 % transdermal 12 hour patch RxNorm: 780412 1 Patch TOP every 12 hours as needed 12/19/2016 12/02/2017 Inactive losartan 25 mg tablet RxNorm: 857045 1 Tablet(s) PO daily TAKE ONE TABLET BY MOUTH ONCE DAILY 11/13/2016 03/22/2017 Inactive Namenda 10 mg tablet RxNorm: 117488 TAKE ONE TABLET BY MOUTH TWICE DAILY 10/28/2016 04/25/2017 Inactive nortriptyline 10 mg capsule RxNorm: 585485 TAKE ONE CAPSULE BY MOUTH ONCE DAILY IN THE EVENING 10/13/2016 01/10/2017 Inactive ceftriaxone 500 mg solution for injection RxNorm: 6245719 Inj 10/06/2016 10/06/2016 Inactive cefdinir 300 mg capsule RxNorm: 334927 1 Capsule(s) PO BID 10/06/2016 10/12/2016 Inactive prednisone 20 mg tablet RxNorm: 705740 2 Tablet(s) PO daily 10/06/2016 10/08/2016 Inactive ProAir RespiClick 90 mcg/actuation breath activated RxNorm: 3933823 2 INH TID x 3 days then one inhale tid x 3 days then prn shortness of breath 10/06/2016 11/04/2016 Inactive Kenalog 40 mg/mL suspension for injection RxNorm: 6033191 1 Milliliter(s) Inj 10/06/2016 10/06/2016 Inactive Myrbetriq 50 mg tablet,extended release RxNorm: 6411016 1 Tablet(s) PO daily 09/11/2016 11/12/2016 Inactive Namenda 10 mg tablet RxNorm: 196159 TAKE ONE TABLET BY MOUTH TWICE DAILY 07/25/2016 10/22/2016 Inactive hydrochlorothiazide 25 mg tablet RxNorm: 713132 1 Tablet(s) PO daily 07/25/2016 12/02/2017 Inactive Synthroid 125 mcg tablet RxNorm: 106466 TAKE ONE TABLET BY MOUTH ONCE DAILY 07/14/2016 03/10/2017 Inactive losartan 25 mg tablet RxNorm: 074575 TAKE ONE TABLET BY MOUTH ONCE DAILY 07/07/2016 11/12/2016 Inactive metoprolol succinate ER 100 mg tablet,extended release 24 hr RxNorm: 880122 1 Tablet(s) PO daily 06/16/2016 06/10/2017 Inactive nortriptyline 10 mg capsule RxNorm: 605690 Capsule(s) TAKE ONE CAPSULE BY MOUTH ONCE DAILY IN THE EVENING 06/09/2016 10/06/2016 Inactive Myrbetriq 50 mg tablet,extended release RxNorm: 3798198 1 Tablet(s) PO daily 05/21/2016 09/10/2016 Inactive doxycycline hyclate 100 mg tablet RxNorm: 783244 1 Tablet(s) PO BID 05/07/2016 05/13/2016 Inactive Carafate 100 mg/mL oral suspension RxNorm: 482465 10 Milliliter(s) PO QID 05/07/2016 12/02/2017 Inactive Kenalog 40 mg/mL suspension for injection RxNorm: 0522160 Milliliter(s) Inj 04/28/2016 04/28/2016 Inactive losartan 25 mg tablet RxNorm: 186229 TAKE ONE TABLET BY MOUTH ONCE DAILY 04/08/2016 07/06/2016 Inactive ciprofloxacin 500 mg tablet RxNorm: 424832 1 Tablet(s) PO BID 04/07/2016 04/13/2016 Inactive cyclobenzaprine 5 mg tablet RxNorm: 564966 1 Tablet(s) PO TID 04/07/2016 04/16/2016 Inactive Keflex 500 mg capsule RxNorm: 079895 1 Capsule(s) PO TID 04/03/2016 04/02/2016 Inactive Keflex 500 mg capsule RxNorm: 679415 1 Capsule(s) PO TID 04/03/2016 04/09/2016 Inactive losartan 25 mg tablet RxNorm: 331408 TAKE ONE TABLET BY MOUTH ONCE DAILY 03/06/2016 04/07/2016 Inactive nortriptyline 10 mg capsule RxNorm: 280366 TAKE ONE CAPSULE BY MOUTH ONCE DAILY IN THE EVENING 03/06/2016 06/03/2016 Inactive pravastatin 10 mg tablet RxNorm: 883582 TAKE ONE TABLET BY MOUTH ONCE DAILY 02/04/2016 01/18/2017 Inactive warfarin 4 mg tablet RxNorm: 081498 Tablet(s) PO q d except 5mg on tue 01/31/2016 06/17/2017 Inactive Myrbetriq 50 mg tablet,extended release RxNorm: 5509591 1 Tablet(s) PO daily 01/17/2016 05/15/2016 Inactive Namenda 10 mg tablet RxNorm: 791531 1 Tablet(s) PO BID 01/01/2016 06/28/2016 Inactive Myrbetriq 50 mg tablet,extended release RxNorm: 5895672 1 Tablet(s) PO daily 12/20/2015 12/20/2015 Inactive Synthroid 125 mcg tablet RxNorm: 693455 1 Tablet(s) PO daily 11/14/2015 07/10/2016 Inactive nortriptyline 10 mg capsule RxNorm: 595351 TAKE ONE CAPSULE BY MOUTH ONCE DAILY IN THE EVENING 11/05/2015 03/03/2016 Inactive Myrbetriq 50 mg tablet,extended release RxNorm: 6231412 1 Tablet(s) PO daily 10/01/2015 12/19/2015 Inactive Namenda 10 mg tablet RxNorm: 400018 1 Tablet(s) PO BID 08/30/2015 12/31/2015 Inactive Vesicare 10 mg tablet RxNorm: 292354 1 Tablet(s) PO daily 08/30/2015 09/30/2015 Inactive warfarin 4 mg tablet RxNorm: 933210 Tablet(s) PO 08/30/2015 01/30/2016 Inactive Synthroid 125 mcg tablet RxNorm: 632554 1 Tablet(s) PO daily 08/02/2015 11/13/2015 Inactive Synthroid 125 mcg tablet RxNorm: 735141 Tablet(s) PO 08/01/2015 08/01/2015 Inactive losartan 25 mg tablet RxNorm: 131995 1 Tablet(s) PO daily 07/31/2015 02/25/2016 Inactive pravastatin 10 mg tablet RxNorm: 363254 1 Tablet(s) PO daily 07/23/2015 01/18/2016 Inactive hydrochlorothiazide 25 mg tablet RxNorm: 076379 1 Tablet(s) PO daily 07/19/2015 07/12/2016 Inactive nortriptyline 10 mg capsule RxNorm: 903768 1 Capsule(s) PO QPM 07/03/2015 10/30/2015 Inactive metoprolol succinate ER 100 mg tablet,extended release 24 hr RxNorm: 403245 1 Tablet(s) PO daily 06/06/2015 05/30/2016 Inactive pravastatin 10 mg tablet RxNorm: 211717 1 Tablet(s) PO daily 01/22/2015 07/20/2015 Inactive aspirin 81 mg capsule,delayed release RxNorm: 664108 1 Capsule(s) PO daily 01/11/2015 02/09/2015 Inactive Fosamax 5 mg tablet RxNorm: 157102 1 Tablet(s) QW 01/11/2015 12/02/2017 Inactive oxybutynin chloride ER 10 mg tablet,extended release 24 hr RxNorm: 274653 1 Tablet(s) PO daily 01/11/2015 08/29/2015 Inactive Fosamax 70 mg tablet RxNorm: 774198 1 Tablet(s) PO QW No Start Date Active Claritin oral RxNorm: 87493 oral No Start Date Active Centrum oral RxNorm: oral No Start Date Active Calcium 600 + D(3) oral RxNorm: 732755 oral No Start Date Active Coumadin 4 mg tablet RxNorm: 296129 1 Tablet(s) PO daily on ,, No Start Date 06/07/2018 Inactive Vitamin D3 oral RxNorm: oral No Start Date 06/16/2018 Inactive pravastatin 10 mg tablet RxNorm: 142250 1 Tablet(s) PO daily No Start Date 01/21/2015 Inactive Aspirin Low Dose 81 mg tablet,delayed release RxNorm: 488860 1 Tablet(s) PO BIW on Thursday and Thursday No Start Date 06/16/2018 Inactive Tylenol PM oral RxNorm: 179601 oral No Start Date 04/07/2017 Inactive Vitamin D2 oral RxNorm: 4018 oral No Start Date 06/08/2018 Inactive Vitamin D2 50,000 unit capsule RxNorm: 465873 1 Capsule(s) PO QW No Start Date 04/13/2017 Inactive tramadol 50 mg tablet RxNorm: 193051 1 Tablet(s) PO TID as needed No Start Date 03/16/2018 Inactive Colace 100 mg capsule RxNorm: 6058292 Capsule(s) PO No Start Date 06/07/2018 Inactive furosemide 40 mg tablet RxNorm: 714349 1 Tablet(s) PO daily as needed No Start Date 07/12/2018 Inactive biotin oral RxNorm: oral No Start Date 06/16/2018 Inactive Micro-K 10 10 mEq capsule,extended release RxNorm: 882543 1 Capsule(s) PO daily No Start Date 05/07/2017 Inactive Synthroid 100 mcg tablet RxNorm: 658711 Tablet(s) PO No Start Date 07/31/2015 Inactive Vitamin B-12 oral RxNorm: oral No Start Date 06/16/2018 Inactive PreserVision AREDS 2 oral RxNorm: 5821259 oral No Start Date 06/07/2018 Inactive hydrochlorothiazide 25 mg tablet RxNorm: 016792 1 Tablet(s) PO daily No Start Date 07/18/2015 Inactive warfarin 2 mg tablet RxNorm: 335009 Tablet(s) PO No Start Date 08/29/2015 Inactive metoprolol succinate ER 100 mg tablet,extended release 24 hr RxNorm: 471994 1 Tablet(s) PO daily No Start Date 06/05/2015 Inactive warfarin 3 mg tablet RxNorm: 398083 Tablet(s) PO No Start Date 08/29/2015 Inactive Coumadin 3 mg tablet RxNorm: 715386 1 Tablet(s) PO QPM at 6:00pm Managed by Dr Bowman No Start Date 06/17/2017 Inactive Myrbetriq 50 mg tablet,extended release RxNorm: 2319599 1 Tablet(s) PO daily No Start Date 08/23/2018 Inactive Medication Administered Medication Codes Instructions Start Date Status Kenalog 40 mg/mL suspension for injection RxNorm: 6267808 2Milliliter 03/12/2018 No longer Active ceftriaxone 500 mg solution for injection RxNorm: 1798418 02/08/2018 No longer Active Kenalog 40 mg/mL suspension for injection RxNorm: 1217504 1Milliliter 10/06/2016 No longer Active ceftriaxone 500 mg solution for injection RxNorm: 8162636 10/06/2016 No longer Active Kenalog 40 mg/mL suspension for injection RxNorm: 8892754 Milliliter 04/28/2016 No longer Active Immunizations Vaccine [...] abnormal findings ICD-10: Z00.01 ICD-9: V70.0 06/08/2018 Dysuria ICD-10: R30.0 ICD-9: 788.1 05/25/2018 Localized edema ICD-10: R60.0 ICD-9: 782.3 05/24/2018 rn long term care (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 of anticoagulants ICD-10: Z79.01 ICD-9: [...] Hyperlipidemia, unspecified ICD-10: E78.5 ICD-9: 272.4 07/31/2015 ESSENTIAL HYPERTENSION ICD-9: 401.9 04/10/2015 MACULAR DEGENERATION ICD-9: 362.50 04/10/2015 Peripheral vascular disease ICD-9: 443.9 04/10/2015 Neuropathy ICD-9: 355.9 04/10/2015 HYPOTHYROIDISM ICD-9: 244.9 01/11/2015 URGE INCONTINENCE ICD-9: 788.31 01/11/2015 Constipation - functional ICD-9: 564.09 01/11/2015 Reason For Visit Reason For Visit Effective Dates Notes hypertension 09/30/2018 neck pain 07/20/2018 hypertension 06/29/2018 [...] Ucult Complete NO Growth Day 2 05/27/2018 Pt [id number] PT 28.2 seconds 05/24/2018 Pt Atp6485 INR 2.6 05/24/2018 Pt Pgg0529 Low Intensity - 1.5-2.0 05/24/2018 Pt Ebn7538 Mod intensity - 2.0-3.0 05/24/2018 Pt Lyf8308 Hi intensity - 3.0-4.0 05/24/2018 Cbc With [...] 29.7 pg 05/24/2018 Cbc With Differential Ord2 [place]% 7.0 % 05/24/2018 Cbc With Differential Ord2 [...] 1.54 K/ul 05/24/2018 Cbc With Differential Ord2 [place] ABS# 0.5 K/ul 05/24/2018 Cbc With Differential Ord2 Eos ABS# 0.4 K/ul 05/24/2018 Cbc With Differential Ord2 Baso ABS# 0.0 K/ul 05/24/2018 Comp Metabolic Lxg194 NA 142 mEq/L 05/24/2018 Comp Metabolic Wch806 K 4.0 mEq/L 05/24/2018 Comp Metabolic Nan070 CL 104 mEq/L 05/24/2018 Comp Metabolic Qqm677 CO2 30.0 mEq/L 05/24/2018 Comp Metabolic Meu647 ANION GAP 12 05/24/2018 Comp Metabolic Zlo881 GLUCOSE 94 mg/dL 05/24/2018 Comp Metabolic Vwz749 Creat 0.6 mg/dL 05/24/2018 Comp Metabolic Qps790 eGFR 97 ml/min/1.73m2 05/24/2018 Comp Metabolic Ntt933 BUN 12 mg/dL 05/24/2018 Comp Metabolic Wnb499 B/C Ratio 19.4 Ratio 05/24/2018 Comp Metabolic Gvi852 CALCIUM 8.8 mg/dL 05/24/2018 Comp Metabolic Psy173 ALK PHOS 135 U/L 05/24/2018 Comp Metabolic Nnt066 AST(SGOT) 18 U/L 05/24/2018 Comp Metabolic Xlt835 ALT(SGPT) 16 U/L 05/24/2018 Comp Metabolic Oht177 BILI T 0.4 mg/dL 05/24/2018 Comp Metabolic Beb671 ALBUMIN 3.9 g/dL 05/24/2018 Comp Metabolic Vca204 TPRO 6.0 g/dL 05/24/2018 Comp Metabolic Yvq775 GLOB 2.1 g/dL 05/24/2018 Comp Metabolic Dcz631 A/G Ratio 1.8 Ratio 05/24/2018 Comp Metabolic Ypl207 Osmo 283 mOsmo 05/24/2018 Tsh Ord6 TSH (3rd IS) 3.19 uIU/mL 10/06/2017 Free T4 Brl690 FREE T4 1.64 ng/dL 10/06/2017 Free T4 Iba952 FREE T4 1.03 ng/dL 08/05/2017 Tsh Ord6 [...] Ord30 C/HDL 3.7 Ratio 04/09/2017 Free T4 Nvh029 FREE T4 0.97 ng/dL 04/09/2017 Tibc Ord40 Iron 36 ug/dl 04/09/2017 Tibc Ord40 UIBC 281 ug/dL 04/09/2017 Tibc Ord40 TIBC 317 ug/dL 04/09/2017 Tibc Ord40 Fe-%Sat 11.4 % 04/09/2017 Comp Metabolic Efj298 NA 136 mEq/L 04/09/2017 Comp Metabolic Dyl984 K 3.9 mEq/L 04/09/2017 Comp Metabolic Uxm858 CL 98 mEq/L 04/09/2017 Comp Metabolic Tyw635 CO2 28.0 mEq/L 04/09/2017 Comp Metabolic Gij482 ANION GAP 14 04/09/2017 Comp Metabolic Tcm220 GLUCOSE 90 mg/dL 04/09/2017 Comp Metabolic Bwg122 Creat 0.6 mg/dL 04/09/2017 Comp Metabolic Ndx188 eGFR 102 ml/min/1.73m2 04/09/2017 Comp Metabolic Yqq989 BUN 9 mg/dL 04/09/2017 Comp Metabolic Zcq710 B/C Ratio 15.3 Ratio 04/09/2017 Comp Metabolic Pog451 CALCIUM 8.8 mg/dL 04/09/2017 Comp Metabolic Mgb264 ALK PHOS 102 U/L 04/09/2017 Comp Metabolic Rwp851 AST(SGOT) 18 U/L 04/09/2017 Comp Metabolic Uop705 ALT(SGPT) 14 U/L 04/09/2017 Comp Metabolic Ppt887 BILI T 0.4 mg/dL 04/09/2017 Comp Metabolic Npu021 ALBUMIN 3.9 g/dL 04/09/2017 Comp Metabolic Nwo088 TPRO 6.3 g/dL 04/09/2017 Comp Metabolic Bdn132 GLOB 2.4 g/dL 04/09/2017 Comp Metabolic Tez112 A/G Ratio 1.7 Ratio 04/09/2017 Comp Metabolic Weg513 Osmo 270 mOsmo 04/09/2017 Vitamin D 25 Oh Euw0254 VITAMIN D, 25 HYDROXY 34.31 ng/mL 04/09/2017 [...] 28.9 pg 04/09/2017 Cbc With Differential Ord2 [place]% 8.8 % 04/09/2017 Cbc With Differential Ord2 [...] 1.22 K/ul 04/09/2017 Cbc With Differential Ord2 [place] ABS# 0.7 K/ul 04/09/2017 Cbc With Differential Ord2 Eos ABS# 0.1 K/ul 04/09/2017 Cbc With Differential Ord2 Baso ABS# 0.0 K/ul 04/09/2017 Urine Culture Ucult Complete >100,000 col/ml aerobic growth sent to ref lab 03/05/2017 Pt Jyv5617 PT 24.2 seconds 04/14/2016 Pt Pud4852 INR 2.3 04/14/2016 Pt Rew6490 Low Intensity - 1.5-2.0 04/14/2016 Pt Ltz4691 Mod intensity - 2.0-3.0 04/14/2016 Pt Uul7388 Hi intensity - 3.0-4.0 04/14/2016 Pt Nox5804 PT 31.3 seconds 04/10/2016 Pt Quw3304 INR 3.3 04/10/2016 Pt Uix5369 Low Intensity - 1.5-2.0 04/10/2016 Pt Psv2767 Mod intensity - 2.0-3.0 04/10/2016 Pt Ufm4023 Hi intensity - 3.0-4.0 04/10/2016 C RAP A SC [id number] Strep A Negative 04/10/2016 Urine Culture Ucult Complete >100,000 col/ml aerobic growth sent to ref lab 04/04/2016 Comp Metabolic Zqq824 NA 136 mEq/L 04/03/2016 Comp Metabolic Avq196 K 3.9 mEq/L 04/03/2016 Comp Metabolic Geu225 CL 99 mEq/L 04/03/2016 Comp Metabolic Oni792 CO2 32.0 mEq/L 04/03/2016 Comp Metabolic Mks353 ANION GAP 9 04/03/2016 Comp Metabolic Hly537 GLUCOSE 88 mg/dL 04/03/2016 Comp Metabolic Gec657 Creat 0.6 mg/dL 04/03/2016 Comp Metabolic Ppm090 eGFR 93 ml/min/1.73m2 04/03/2016 Comp Metabolic Ffb859 BUN 15 mg/dL 04/03/2016 Comp Metabolic Ipe904 B/C Ratio 23.4 Ratio 04/03/2016 Comp Metabolic Aey855 CALCIUM 8.7 mg/dL 04/03/2016 Comp Metabolic Uqy842 ALK PHOS 100 U/L 04/03/2016 Comp Metabolic Hmm875 AST(SGOT) 28 U/L 04/03/2016 Comp Metabolic Wuo215 ALT(SGPT) 39 U/L 04/03/2016 Comp Metabolic Msn066 BILI T 0.5 mg/dL 04/03/2016 Comp Metabolic Kog313 ALBUMIN 4.1 g/dL 04/03/2016 Comp Metabolic Cof216 TPRO 6.6 g/dL 04/03/2016 Comp Metabolic Bgr501 GLOB 2.5 g/dL 04/03/2016 Comp Metabolic Uhe558 A/G Ratio 1.7 Ratio 04/03/2016 Comp Metabolic Zgj677 Osmo 272 mOsmo 04/03/2016 Cbc With Differential [...] 29.0 pg 04/03/2016 Cbc With Differential Ord2 [place]% 11.3 % 04/03/2016 Cbc With Differential Ord2 [...] 1.15 K/ul 04/03/2016 Cbc With Differential Ord2 [place] ABS# 0.8 K/ul 04/03/2016 Cbc With Differential Ord2 Eos ABS# 0.2 K/ul 04/03/2016 Cbc With Differential Ord2 Baso ABS# 0.0 K/ul 04/03/2016 Tsh Ord6 hTSH II 3.06 uIU/mL 04/03/2016 Free T4 Vya876 FREE T4 0.99 ng/dL 04/03/2016 Free T4 Cqh609 FREE T4 0.81 ng/dL 07/31/2015 Comp Metabolic Jca440 NA 136 mEq/L 07/31/2015 Comp Metabolic Gtn864 K 3.8 mEq/L 07/31/2015 Comp Metabolic Hen141 CL 97 mEq/L 07/31/2015 Comp Metabolic Kco603 CO2 29.0 mEq/L 07/31/2015 Comp Metabolic Ldx363 ANION GAP 14 07/31/2015 Comp Metabolic Egs583 GLUCOSE 90 mg/dL 07/31/2015 Comp Metabolic Cjo737 Creat 0.7 mg/dL 07/31/2015 Comp Metabolic Yol173 eGFR 80 ml/min/1.73m2 07/31/2015 Comp Metabolic Lup151 BUN 8 mg/dL 07/31/2015 Comp Metabolic Oog495 B/C Ratio 11.0 Ratio 07/31/2015 Comp Metabolic Kpu531 CALCIUM 8.9 mg/dL 07/31/2015 Comp Metabolic Lll628 ALK PHOS 102 U/L 07/31/2015 Comp Metabolic Cky386 AST(SGOT) 22 U/L 07/31/2015 Comp Metabolic Ckb061 ALT(SGPT) 14 U/L 07/31/2015 Comp Metabolic Gfn937 BILI T 0.5 mg/dL 07/31/2015 Comp Metabolic Tmc120 ALBUMIN 4.4 g/dL 07/31/2015 Comp Metabolic Kvz554 TPRO 6.7 g/dL 07/31/2015 Comp Metabolic Yeh371 GLOB 2.3 g/dL 07/31/2015 Comp Metabolic Zle416 A/G Ratio 1.9 Ratio 07/31/2015 Comp Metabolic Fvr673 Osmo 270 mOsmo 07/31/2015 Tsh Ord6 hTSH [...] Lipid Ord30 C/HDL 4.8 Ratio 07/31/2015 Pt Oru0967 PT 31.9 seconds 07/03/2015 Pt Blh0409 INR 3.2 07/03/2015 Pt Eji9857 Low Intensity - 1.5-2.0 07/03/2015 Pt Qcj7057 Mod intensity - 2.0-3.0 07/03/2015 Pt Luh5313 Hi intensity - 3.0-4.0 07/03/2015 Review of Systems System Result Effective Dates Constitutional No recent illness 09/30/2018 Constitutional No [...] lips 03/02/2018 None Full Exam - General 1995 Ears/Nose/Throat lips/teeth/gingiva Overall: normal dentition 03/02/2018 None [...] clear 10/12/2017 None Full Exam - General 1995 Eyes conjunctiva/eyelids Overall: eyelids normal 10/12/2017 None Full Exam - General 1994 Eyes pupils and irises Overall: pupils equal, round, reactive to light and accomodation 10/12/2017 None Full Exam - General 1995 Ears/Nose/Throat otoscopic exam Overall: external auditory canals clear 10/12/2017 None Full Exam - General 1995 [...] 1994 Ears/Nose/Throat internal nose Overall: no drainage 04/27/2017 None Full Exam - General 1994 Ears/Nose/Throat internal nose Overall: nasopharynx benign 04/27/2017 None Full Exam - General 1994 Ears/Nose/Throat lips/teeth/gingiva Overall: benign lips 04/27/2017 None Full Exam - General 1994 Ears/Nose/Throat lips/teeth/gingiva Overall: normal dentition 04/27/2017 None Full Exam - General 1994 Ears/Nose/Throat lips/teeth/gingiva Overall: benign gingiva 04/27/2017 None Full Exam - General 1994 Ears/Nose/Throat lips/teeth/gingiva Overall: no masses 04/27/2017 None [...] 1995 Ears/Nose/Throat external ear Overall: normal mastoids 11/13/2016 None Full Exam - General 1994 Ears/Nose/Throat external nose Overall: benign appearance 11/13/2016 None Full Exam - General 1995 Ears/Nose/Throat external nose Overall: no masses 11/13/2016 None Full Exam - General 1995 Ears/Nose/Throat external nose Overall: non-tender 11/13/2016 None Full Exam - General 1994 Ears/Nose/Throat otoscopic exam Overall: external auditory canals clear 11/13/2016 None Full Exam - General 1995 Ears/Nose/Throat otoscopic exam Overall: tympanic membranes clear 11/13/2016 None Full Exam - General 1994 Ears/Nose/Throat internal nose Overall: bilateral nasal cavities clear 11/13/2016 None Full Exam - General 1995 [...] benign 01/11/2015 None Procedures Procedure Codes Date PPPS, SUBSEQ VISIT CPT- 4: G0439 06/08/2018 URINALYSIS NONAUTO W/O SCOPE CPT-4: 75627 05/25/2018 ADMIN INFLUENZA VIRUS VAC CPT-4: G0008 05/20/2018 FLU VACC PRSV FREE INC ANTIG CPT-4: 86260 05/20/2018 DRAIN/INJECT JOINT/BURSA CPT-4: 90746 03/23/2018 TRIAMCINOLONE ACET INJ NOS CPT-4: J3301 03/23/2018 DRAIN/INJECT JOINT/BURSA CPT-4: 45512 03/12/2018 TRIAMCINOLONE ACET INJ NOS CPT-4: J3301 03/12/2018 ROCEPHIN, PER 250 MG CPT- 4: J0696 02/08/2018 ADMIN INFLUENZA VIRUS VAC CPT-4: G0008 06/18/2017 FLU VACC PRSV FREE INC ANTIG CPT-4: 65560 06/18/2017 URINALYSIS NONAUTO W/O SCOPE CPT-4: 32932 04/27/2017 URINALYSIS NONAUTO W/O SCOPE CPT-4: 71997 2017 DRAIN/INJECT JOINT/BURSA CPT-4: 58026 03/03/2017 TRIAMCINOLONE ACET INJ NOS CPT-4: J3301 03/03/2017 TRIAMCINOLONE ACET INJ NOS CPT-4: J3301 10/06/2016 ROCEPHIN, PER 250 MG CPT- 4: J0696 10/06/2016 THER/PROPH/DIAG INJ SC/IM CPT-4: 36021 10/06/2016 TRIAMCINOLONE ACET INJ NOS CPT-4: J3301 04/28/2016 URINALYSIS NONAUTO W/O SCOPE CPT-4: 45310 04/03/2016 ADMIN INFLUENZA VIRUS VAC CPT-4: G0008 07/03/2015 FLU VACC PRSV FREE INC ANTIG CPT-4: 39514 07/03/2015 Vital Signs Date Vital 09/30/2018 Blood Pressure 1: 142/80 Code: 8480-6 BMI: 27.3 Code: 80603-4 Heart Rate 1: 84 bpm Height: 5'6" SpO2: 96% Weight: 169 lbs 07/20/2018 Blood Pressure 1: 124/70 Code: 8480-6 Heart Rate 1: 76 bpm Height: SpO2: 95% Weight: 06/29/2018 Blood Pressure 1: 142/80 Code: 8480-6 BMI: 27.8 Code: 44942-8 Heart Rate 1: 89 bpm Height: 5'6" SpO2: 94% Weight: 172 lbs 06/08/2018 Blood Pressure 1: 144/66 Code: 8480-6 BMI: 27.9 Code: 03013-0 Heart Rate 1: 85 bpm Height: 5'6" SpO2: 97% Waist Measure (cm): 97 cm Weight: 173 lbs 05/24/2018 Blood Pressure 1: 128/72 Code: 8480-6 BMI: 27.9 Code: 10367-9 Heart Rate 1: 82 bpm Height: 5'6" SpO2: 92% Weight: 173 lbs 04/06/2018 Blood Pressure 1: 138/88 Code: 8480-6 Heart Rate 1: 86 bpm Height: SpO2: 96% Weight: 03/23/2018 Blood Pressure 1: 150/88 Code: 8480-6 Heart Rate 1: 80 bpm Height: SpO2: 96% Weight: 03/12/2018 Heart Rate 1: 90 bpm Height: Weight: 03/02/2018 Blood Pressure 1: 128/80 Code: 8480-6 BMI: 28.4 Code: 62055-0 Heart Rate 1: 83 bpm Height: 5'6" SpO2: 93% Weight: 176 lbs 02/08/2018 Blood Pressure 1: 142/80 Code: 8480-6 Heart Rate 1: 78 bpm Height: 5'6" SpO2: 94% 12/03/2017 Blood Pressure 1: 124/78 Code: 8480-6 BMI: 27.9 Code: 74992-4 Heart Rate 1: 70 bpm Height: 5'6" SpO2: 97% Weight: 173 lbs 10/27/2017 Blood Pressure 1: 126/60 Code: 8480-6 Heart Rate 1: 65 bpm Height: 5'6" SpO2: 98% Weight: 10/12/2017 Blood Pressure 1: 126/74 Code: 8480-6 BMI: 26.0 Code: 20677-7 Heart Rate 1: 80 bpm Height: 5'6" SpO2: 89% Weight: 161 lbs 10/06/2017 Blood Pressure 1: 126/70 Code: 8480-6 BMI: 27.2 Code: 90577-4 Heart Rate 1: 73 bpm Height: 5'6" SpO2: 97% Weight: 168 lbs 8 oz 08/05/2017 Blood Pressure 1: 152/78 Code: 8480-6 BMI: 27.1 Code: 99765-7 Heart Rate 1: 73 bpm Height: 5'6" SpO2: 98% Weight: 168 lbs 07/06/2017 Blood Pressure 1: 148/70 Code: 8480-6 BMI: 26.6 Code: 62706-1 Heart Rate 1: 80 bpm Height: 5'6" SpO2: 97% Weight: 165 lbs 06/18/2017 Blood Pressure 1: 132/68 Code: 8480-6 BMI: 26.8 Code: 54177-8 Heart Rate 1: 84 bpm Height: 5'6" [...] 1: 162/84 Code: 8480-6 BMI: 28.1 Code: 39392-6 Heart Rate 1: 98 bpm Height: 5'6" SpO2: 97% Weight: 174 lbs 03/03/2017 Blood Pressure 1: 154/88 Code: 8480-6 Heart Rate 1: 96 bpm Height: SpO2: 95% Weight: 01/05/2017 Blood Pressure 1: 142/78 Code: 8480-6 BMI: 28.9 Code: 90379-9 Heart Rate 1: 94 bpm Height: 5'6" SpO2: 95% Weight: 179 lbs 12/19/2016 Blood Pressure 1: 130/74 Code: 8480-6 Heart Rate 1: 91 bpm Height: 5'6" SpO2: 97% Weight: 11/13/2016 Blood Pressure 1: 152/82 Code: 8480-6 BMI: 28.4 Code: 45908-7 Heart Rate 1: 85 bpm Height: 5'6" SpO2: 96% Weight: 176 lbs 10/16/2016 Blood Pressure 1: 148/72 Code: 8480-6 BMI: 28.4 Code: 03571-2 Heart Rate 1: 90 bpm Height: 5'6" SpO2: 96% Weight: 176 lbs 10/06/2016 Blood Pressure 1: 150/80 Code: 8480-6 BMI: 28.4 Code: 72905-3 Heart Rate 1: 76 bpm Height: 5'6" SpO2: 97% Weight: 176 lbs 07/02/2016 Blood Pressure 1: 142/78 Code: 8480-6 BMI: 27.8 Code: 31473-6 Heart Rate 1: 85 bpm Height: 5'6" SpO2: 97% Weight: 172 lbs 05/21/2016 Blood Pressure 1: 166/80 Code: 8480-6 BMI: 27.9 Code: 31584-9 Heart Rate 1: 79 bpm Height: 5'6" SpO2: 98% Weight: 173 lbs 05/07/2016 Blood Pressure 1: 140/70 Code: 8480-6 BMI: 27.9 Code: 80058-3 Heart Rate 1: 82 bpm Height: 5'6" SpO2: 96% Weight: 173 lbs 04/28/2016 Blood Pressure 1: 128/86 Code: 8480-6 BMI: 27.4 Code: 99674-2 Heart Rate 1: 86 bpm Height: 5'6" SpO2: 96% Temperature: 36.1 (C) / 97.0 (F) Weight: 170 lbs 04/07/2016 Blood Pressure 1: 150/80 Code: 8480-6 Heart Rate 1: 94 bpm Height: SpO2: 95% Weight: 04/03/2016 Blood Pressure 1: 122/76 Code: 8480-6 BMI: 27.4 Code: 36307-2 Heart Rate 1: 84 bpm Height: 5'6" SpO2: 94% Weight: 170 lbs 01/31/2016 Blood Pressure 1: 124/82 Code: 8480-6 BMI: 27.8 Code: 77670-7 Heart Rate 1: 100 bpm Height: 5'6" SpO2: 97% Weight: 172 lbs 11/29/2015 Blood Pressure 1: 140/82 Code: 8480-6 Blood Pressure 1: 130/84 Code: 8480-6 BMI: 27.4 Code: 44155-4 Heart Rate 1: 97 bpm Height: 5'6" SpO2: 95% Weight: 170 lbs 10/01/2015 Blood Pressure 1: 130/80 Code: 8480-6 BMI: 27.4 Code: 08757-4 Heart Rate 1: 82 bpm Height: 5'6" SpO2: 97% Weight: 170 lbs 08/30/2015 Blood Pressure 1: 120/68 Code: 8480-6 BMI: 27.6 Code: 78519-3 Heart Rate 1: 91 bpm Height: 5'6" SpO2: 96% Weight: 171 lbs 07/31/2015 Blood Pressure 1: 180/80 Code: 8480-6 BMI: 27.4 Code: 47420-8 Heart Rate 1: 60 bpm Height: 5'6" SpO2: 94% Weight: 170 lbs 07/03/2015 Blood Pressure 1: 154/80 Code: 8480-6 BMI: 27.4 Code: 98130-3 Heart Rate 1: 98 bpm Height: 5'6" SpO2: 95% Weight: 170 lbs 04/10/2015 Blood Pressure 1: 138/72 Code: 8480-6 BMI: 27.8 Code: 43281-7 Heart Rate 1: 82 bpm Height: 5'6" SpO2: 98% Weight: 172 lbs 01/11/2015 Blood Pressure 1: 132/74 Code: 8480-6 BMI: 28.6 Code: 43379-8 Heart Rate 1: 88 bpm Height: 5'6" SpO2: 96% Weight: 177 lbs Functional Status No Functional Status data History of Present Illness Symptom Name Status Result Effective Date Notes Quality primary hypertension 09/30/2018 None Onset and [...] data Encounters Encounter Performer Location Codes Date ([id number]) [id number] EST. PATIENT, LEVEL IV Diagnosis: Essential (primary) hypertension[ICD10: I10] Diagnosis: Atrophy of thyroid (acquired)[ICD10: E03.4] Carleen Anaya MD, [facility] CPT-4: 38114 09/30/2018 ([id number]) 73166 EST. PATIENT, LEVEL III Diagnosis: Atrophy of thyroid (acquired)[ICD10: E03.4] Diagnosis: Essential (primary) hypertension[ICD10: I10] Carleen Anaya MD, [facility] CPT-4: 80619 07/20/2018 ([id number]) 88687 EST. PATIENT, LEVEL IV Diagnosis: Essential (primary) hypertension[ICD10: I10] Diagnosis: Atrophy of thyroid (acquired)[ICD10: E03.4] Diagnosis: Other fatigue[ICD10: R53.83] Diagnosis: Other insomnia[ICD10: G47.09] Carleen Anaya MD, [facility] CPT-4: 41468 06/29/2018 ([id number]) 36883 EST. PATIENT, LEVEL IV Diagnosis: Localized edema[ICD10: R60.0] Diagnosis: Muscle weakness (generalized)[ICD10: M62.81] Diagnosis: Dysuria[ICD10: R30.0] Diagnosis: jail (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 of anticoagulants[ICD10: Z79.01] Diagnosis: Essential (primary) hypertension[ICD10: I10] Mimi Anaya MD, [facility] CPT-4: 51165 05/24/2018 ([id number] 51827 EST. PATIENT, LEVEL III Diagnosis: Lumbago with sciatica, right side[ICD10: M54.41] Diagnosis: Sciatica, right side[ICD10: M54.31] Carleen Anaya MD, [facility] CPT- 4: 25746 04/06/2018 ([id number]) 21755 EST. PATIENT, LEVEL III Diagnosis: Lumbago with sciatica, right side[ICD10: M54.41] Diagnosis: Sciatica, right side[ICD10: M54.31] Carleen Anaya MD, [facility] CPT- 4: 98976 03/23/2018 [id number] EST. PATIENT, LEVEL III Diagnosis: Low back pain[ICD10: M54.5] Diagnosis: Sacroiliitis, not elsewhere classified[ICD10: M46.1] Wendi Anaya MD, [facility] CPT-4: 57724 03/12/2018 ([id number]) 02907 EST. PATIENT, LEVEL IV Diagnosis: Atrophy of thyroid (acquired)[ICD10: E03.4] Diagnosis: Essential (primary) hypertension[ICD10: I10] Diagnosis: Urge incontinence[ICD10: N39.41] Carleen Anaya MD, [facility] CPT-4: 70050 03/02/2018 ([id number]) 17099 EST. PATIENT, LEVEL III Diagnosis: Cellulitis of face[ICD10: L03.211] Mimi Anaya MD, [facility] CPT- 4: 12574 02/08/2018 ([id number]) 99852 EST. PATIENT, LEVEL IV Diagnosis: Atrophy of thyroid (acquired)[ICD10: E03.4] Diagnosis: Essential (primary) hypertension[ICD10: I10] Diagnosis: Urge incontinence[ICD10: N39.41] Carleen Anaya MD, [facility] CPT-4: 42867 12/03/2017 82925 EST. PATIENT, LEVEL IV Diagnosis: Essential (primary) hypertension[ICD10: I10] Diagnosis: Weakness[ICD10: R53.1] Diagnosis: Low back pain[ICD10: M54.5] Diagnosis: Other allergic rhinitis[ICD10: J30.89] Wendi Anaya MD, [facility] CPT- 4: 13608 10/27/2017 43851 EST. PATIENT, LEVEL IV Diagnosis: Pneumonia due to other specified bacteria[ICD10: J15.8] Diagnosis: Chronic systolic (congestive) heart failure[ICD10: I50.22] Wendi Anaya MD, [facility] CPT-4: 79793 10/12/2017 ([id number]) 72828 EST. PATIENT, LEVEL IV Diagnosis: Atrophy of thyroid (acquired)[ICD10: E03.4] Diagnosis: Nonscarring hair loss, unspecified[ICD10: L65.9] Diagnosis: Essential (primary) hypertension[ICD10: I10] Carleen Anaya MD, [facility] CPT-4: 30427 10/06/2017 ([id number]) 95446 EST. PATIENT, LEVEL IV Diagnosis: Atrophy of thyroid (acquired)[ICD10: E03.4] Diagnosis: Essential (primary) hypertension[ICD10: I10] Diagnosis: Localized edema[ICD10: R60.0] Carleen Anaya MD, [facility] CPT-4: 76663 08/05/2017 ([id number]) 97589 EST. PATIENT, LEVEL IV Diagnosis: Essential (primary) hypertension[ICD10: I10] Diagnosis: Weakness[ICD10: R53.1] Diagnosis: Other fecal abnormalities[ICD10: R19.5] Carleen Anaya MD, [facility] CPT-4: 80117 07/06/2017 ([id number]) 45991 EST. 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 PATIENT, LEVEL IV Diagnosis: Pain in right shoulder[ICD10: M25.511] Diagnosis: Weakness[ICD10: R53.1] Diagnosis: Other fatigue[ICD10: R53.83] Diagnosis: Other malaise[ICD10: R53.81] Wendi Anaya MD, [facility] CPT-4: 25365 05/11/2017 ([id number]) Miscellaneous no charge Diagnosis: Essential (primary) hypertension[ICD10: I10] Mimi Anaya MD, [facility] CPT-4: 32956 04/30/2017 ([id number]) 55399 EST. PATIENT, LEVEL III Diagnosis: Acute recurrent maxillary sinusitis[ICD10: J01.01] Diagnosis: Urinary tract infection, site not specified[ICD10: N39.0] Mimi Anaya MD, [facility] CPT-4: 28454 04/27/2017 ([id number]) 77413 EST. PATIENT, LEVEL IV Diagnosis: Atrophy of thyroid (acquired)[ICD10: E03.4] Diagnosis: Essential (primary) hypertension[ICD10: I10] Diagnosis: Iron deficiency[ICD10: E61.1] Diagnosis: Other specified heart block[ICD10: I45.5] Carleen Anaya MD, [facility] CPT-4: 09081 04/08/2017 44480 EST. PATIENT, LEVEL III Diagnosis: Low back pain[ICD10: M54.5] Diagnosis: Sacroiliitis, not elsewhere classified[ICD10: M46.1] Wendi Anaya MD, [facility] CPT-4: 50150 03/03/2017 ([id number]) 30419 EST. PATIENT, LEVEL IV Diagnosis: Essential (primary) hypertension[ICD10: I10] Diagnosis: Atrophy of thyroid (acquired)[ICD10: E03.4] Diagnosis: Vascular dementia without behavioral disturbance[ICD10: F01.50] Carleen Anaya MD, [facility] CPT-4: 34385 01/05/2017 58619 EST. PATIENT, LEVEL III Diagnosis: Cervicalgia[ICD10: M54.2] Diagnosis: Other muscle spasm[ICD10: M62.838] Wendi Anaya MD, [facility] CPT-4: 94908 12/19/2016 ([id number]) 45487 EST. PATIENT, LEVEL III Diagnosis: Essential (primary) hypertension[ICD10: I10] Diagnosis: Gastro-esophageal reflux disease without esophagitis[ICD10: K21.9] Carleen Anaya MD, [facility] CPT-4: 15156 11/13/2016 ([id number]) 38702 EST. PATIENT, LEVEL III Diagnosis: Pain in right shoulder[ICD10: M25.511] Diagnosis: Insomnia due to medical condition[ICD10: G47.01] Carleen Anaya MD [facility] CPT-4: 04993 10/16/2016 ([id number]) 43622 EST. PATIENT, LEVEL IV Diagnosis: Pneumonia due to other specified bacteria[ICD10: J15.8] Diagnosis: Pain in right shoulder[ICD10: M25.511] Diagnosis: Cough[ICD10: R05] Carleen Anaya MD [facility] CPT-4: 15185 10/06/2016 ([id number]) 72871 EST. PATIENT, LEVEL IV Diagnosis: Essential (primary) hypertension[ICD10: I10] Diagnosis: Personal history of other specified conditions[ICD10: Z87.898] Diagnosis: Unsteadiness on feet[ICD10: R26.81] Carleen Anaya MD [facility] CPT- 4: 65841 07/02/2016 ([id number]) 13723 EST. PATIENT, LEVEL IV Diagnosis: Dysphagia, pharyngeal phase[ICD10: R13.13] Diagnosis: Urge incontinence[ICD10: N39.41] Diagnosis: Gastro-esophageal reflux disease without esophagitis[ICD10: K21.9] Carleen Anaya MD [facility] CPT-4: 31485 05/21/2016 ([id number]) 66162 EST. PATIENT, LEVEL III Diagnosis: Gastro-esophageal reflux disease without esophagitis[ICD10: K21.9] Carleen Anaya MD [facility] CPT-4: 88990 05/07/2016 ([id number]) 89825 EST. PATIENT, LEVEL III Diagnosis: Acute laryngopharyngitis[ICD10: J06.0] Diagnosis: Dysphagia, pharyngeal phase[ICD10: R13.13] Diagnosis: Allergic rhinitis due to pollen[ICD10: J30.1] Mimi Anaya MD [facility] CPT-4: 42153 04/28/2016 ([id number]) Miscellaneous no charge Diagnosis: Acute laryngopharyngitis[ICD10: J06.0] Wendi Anaya MD [facility] CPT- 4: 18657 04/10/2016 82241 EST. PATIENT, LEVEL IV Diagnosis: Cervicalgia[ICD10: M54.2] Diagnosis: Acute laryngopharyngitis[ICD10: J06.0] Diagnosis: jail (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 of anticoagulants[ICD10: Z79.01] Diagnosis: Other cystitis without hematuria[ICD10: N30.80] Wendi Anaya MD, [facility] CPT-4: 95922 04/07/2016 ([id number]) 16527 EST. PATIENT, LEVEL IV Diagnosis: Essential (primary) hypertension[ICD10: I10] Diagnosis: Hypothyroidism, unspecified[ICD10: E03.9] Diagnosis: Other fatigue[ICD10: R53.83] Diagnosis: Urge incontinence[ICD10: N39.41] Mimi Anaya MD, [facility] CPT- 4: 86993 04/03/2016 ([id number]) 31291 EST. PATIENT, LEVEL IV Diagnosis: Essential (primary) hypertension[ICD10: I10] Diagnosis: Pain in right ankle and joints of right foot[ICD10: M25.571] Diagnosis: Dizziness and giddiness[ICD10: R42] Diagnosis: Tinnitus, bilateral[ICD10: H93.13] Mimi Anaya MD, [facility] CPT- 4: 12096 01/31/2016 ([id number]) 81304 EST. PATIENT, LEVEL IV Diagnosis: Essential (primary) hypertension[ICD10: I10] Diagnosis: Otalgia, right ear[ICD10: H92.01] Diagnosis: Allergic rhinitis due to pollen[ICD10: J30.1] Diagnosis: Hypothyroidism, unspecified[ICD10: E03.9] Mimi Anaya MD, [facility] CPT-4: 66661 11/29/2015 ([id number]) 61732 EST. PATIENT, LEVEL IV Diagnosis: Essential (primary) hypertension[ICD10: I10] Diagnosis: Urge incontinence[ICD10: N39.41] Diagnosis: Unspecified dementia without behavioral disturbance[ICD10: F03.90] Mimi Anaya MD, [facility] CPT-4: 04527 10/01/2015 ([id number]) 86180 EST. PATIENT, LEVEL IV Diagnosis: Essential (primary) hypertension[ICD10: I10] Diagnosis: Hypothyroidism, unspecified[ICD10: E03.9] Diagnosis: Unspecified dementia without behavioral disturbance[ICD10: F03.90] Diagnosis: Urge incontinence[ICD10: N39.41] Mimi Anaya MD, [facility] CPT- 4: 65378 08/30/2015 ([id number]) 21866 EST. PATIENT, LEVEL IV Diagnosis: Essential (primary) hypertension[ICD10: I10] Diagnosis: Hypothyroidism, unspecified[ICD10: E03.9] Diagnosis: Hyperlipidemia, unspecified[ICD10: E78.5] Carleen Anaya MD, [facility] CPT-4: 28056 07/31/2015 ([id number]) 36844 EST. PATIENT, LEVEL IV Diagnosis: Essential (primary) hypertension[ICD10: I10] Diagnosis: rn long term care (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 of anticoagulants[ICD10: Z79.01] Diagnosis: Dizziness and giddiness[ICD10: R42] Carleen Anaya MD [facility] CPT- 4: 87269 07/03/2015 [id number]) 09894 EST. PATIENT, LEVEL IV Diagnosis: ESSENTIAL HYPERTENSION[ICD9: 401.9] Diagnosis: MACULAR DEGENERATION[ICD9: 362.50] Diagnosis: Peripheral vascular disease[ICD9: 443.9] Diagnosis: Neuropathy[ICD9: 355.9] Carleen Anaya MD, [facility] CPT-4: 82014 04/10/2015 ([id number]) OFFICE/OUTPATIENT VISIT NEW Diagnosis: ESSENTIAL HYPERTENSION[ICD9: 401.9] Diagnosis: HYPOTHYROIDISM[ICD9: 244.9] Diagnosis: URGE INCONTINENCE[ICD9: 788.31] Diagnosis: Constipation - functional[ICD9: 564.09] Carleen Anaya MD, [facility] CPT-4: 64136 01/11/2015 Plan of Care Planned Activity Notes [...] based on previous levels of control. 09/30/2018 Patient Education: Patient Medication Summary Completed 09/30/2018 [phone] [place] ([facility] min) Moderate 09/22/2018 Visit Plan: [...] at home. 07/20/2018 Appointment: [phone] [place] (15 min) Moderate 07/20/2018 Patient Education: [...] this time. 06/29/2018 Appointment: [phone] [place] (15 min) Moderate 06/29/2018 Patient Education: [...] care surrogate. 06/08/2018 Appointment: Mimi Espinosa WPtel: [address] [place] [address] - Annual Wellness Visit 06/08/2018 Patient Education: [...] edema. Weakness-fatigue- check labs Dysuria- check UA [id number] changes in medications 05/24/2018 Appointment: Mimi Espinosa WPtel: [address] [place], [place] [phone] (15 min) Moderate 05/24/2018 Patient Education: Patient Medication Summary Completed 05/24/2018 Appointment: Injection 05/20/2018 Patient Education: Patient Medication Summary Completed 05/20/2018 Visit Plan: Sciatica- pt to continue with aleve twice daily and cyclobenzaprine x 1 week. Pt is to call if the symptoms do not improve or if they worsen. referral to [facility] physical therapy. 04/06/2018 Appointment: Carleen Anaya WPtel: [address] [place] [address] [place] (15 min) Moderate 04/06/2018 Patient Education: Patient [...] do not improve or if they worsen. [id number] - kenalog 03/23/2018 Appointment: Carleen Anaya WPtel: [phone] [facility] (15 min) Moderate 03/23/2018 Patient Education: [...] injection. 03/12/2018 Appointment: Wendi Uriostegui WPtel: [phone] [facility] (30 min) Complex 03/12/2018 Patient Education: [...] myrbetric 03/02/2018 Appointment: Carleen Anaya WPtel: [phone] [facility] (15 min) Moderate 03/02/2018 Patient Education: Patient Medication Summary Completed 03/02/2018 Appointment: (10 min) Simple 02/09/2018 Visit Plan: Cellulitis - start oral antibiotics as directed, return to clinic as directed, call for acute change in symptoms, worsening redness, warmth, discharge. 02/08/2018 Appointment: Mimi Espinosa WPtel: [phone] (15 min) Moderate 02/08/2018 Patient Education: Patient [...] 50mg daily. 12/03/2017 Appointment: Carleen Anaya WPtel: [facility] (15 min) Moderate 12/03/2017 Patient Education: Patient [...] spray. 10/27/2017 Appointment: Wendi Uriostegui WPtel: [phone] [facility] (15 min) Moderate 10/27/2017 Patient Education: Patient Medication Summary Completed 10/27/2017 Visit Plan: Pneumonia - Pt has been diagnosed with pneumonia by physical exam. A chest xray has been ordered as have antibiotics. The pt is aware of the diagnosis and the need for acute treatment of this illness. 10/12/2017 App[facility]ment[phone] ([facility] min) Moderate 10/12/2017 Patient Education: Patient [...] today. 10/06/2017 [phone] ([facility]) Moderate 10/06/2017 Patient Education: Patient [...] and prn. 08/05/2017 Appointment: Carleen Anaya WPtel: [phone] [facility] (15 min) Moderate 08/05/2017 Patient Education: Patient Medication Summary Completed 08/05/2017 Appointment: Carleen Anaya WPtel: [phone] [facility] [place] (15 min) Moderate 07/14/2017 Visit Plan: [...] voltaren gel. 07/06/2017 Appointment: Carleen Anaya WPtel: [phone] [facility] [place] (15 min) Moderate 07/06/2017 Patient Education: [...] today 06/18/2017 Appointment: Carleen Anaya WPtel: [phone] [facility] [place] (15 min) Moderate 06/18/2017 Patient Education: Patient Medication Summary Completed 06/18/2017 Appointment: Nurse Visit 05/12/2017 Care Plan: X-RAY EXAM OF SHOULDER LOINC : 10708-6 Pending 05/12/2017 Visit Plan: Weakness, fatigue, malaise - Discussed with Dr. Anaya - pt sent for IV fluids, will check labs and UA - will treat as indicated - pt is to keep her appointment with her coastal and estuary specialist for her ECHO and Carotid US. Pt is to follow up with her oncologist. Right shoulder pain after fall - will send for X-ray - The pt is to use prn antiinflammatories to manage acute pain. The patient is to call the office if the pain is worsening or does not improve. 05/11/2017 App[facility]ment[phone] [place] ([facility] min) Complex 05/11/2017 [...] plan. 04/27/2017 Appointment: [phone] [place] (15 min) Moderate 04/27/2017 [...] heart beat - recommended evaluation by her Supervisor Delivery Department - Dr. Butler - I attempted a phone call to the office of Dr. Butler, I had to leave a message on the answering machine. If i don't hear back from Dr. Butler's office, we will need to do a Holter monitor on patient. 04/08/2017 Appointment: Carleen Anaya WPtel: [phone] [facility] (15 min) Moderate 04/08/2017 Patient Education: Patient Medication Summary Completed 04/08/2017 Care Plan: Referral Order SNOMED-CT : [id number] Pending 04/08/2017 Visit Plan: UTI - pt [...] of control. 01/05/2017 Appointment: Carleen Anaya WPtel: [facility] (15 min) Moderate 01/05/2017 Patient Education: Patient Medication Summary Completed 01/05/2017 Visit Plan: Neck Pain- pt to start with aspercreme or biofreeze to neck three times daily and start neck exercises daily. Will send RX - The patient is to call the office if the pain is worsening or does not improve. 12/19/2016 Appointment: Wendi Uriostegui WPtel: [facility] (30 min) Complex 12/19/2016 Patient Education: [...] not improving. 11/13/2016 Appointment: Carleen Anaya WPtel: [facility] [place] (15 min) Moderate 11/13/2016 Patient Education: Patient Medication Summary Completed 11/13/2016 Visit Plan: Insomnia -extended release melatonin - you can take up to 10mg of melatonin sleepy time tea - - use warm milk in the tea. Right shoulder - pt to continue with therapy, anti-inflammatory 10/16/2016 Appointment: Carleen Anaya WPtel: [facility] (15 min) Moderate 10/16/2016 Patient Education: [...] pt. 10/06/2016 Appointment: Carleen Anaya WPtel: [phone] [facility]66[facility] (15 min) Moderate 10/06/2016 Patient Education: Patient Medication Summary Completed 10/06/2016 Care Plan: X-RAY EXAM OF SHOULDER LOINC : 02606-1 Pending 10/06/2016 Appointment: Carleen Anaya WPtel: [phone] [facility]66[facility] (30 min) Complex 10/01/2016 Referral: [facility] WPtel: [phone] Patient informed. Completed 07/08/2016 Visit Plan: [...] therapy. 07/02/2016 Appointment: Carleen Anaya WPtel: [phone] [facility]66[facility] (15 min) Moderate 07/02/2016 Patient Education: Patient Medication Summary Completed 07/02/2016 Care Plan: Referral Order SNOMED-CT : [id number] Pending 07/02/2016 Visit Plan: Hypertension - well [...] planning on getting a flu shot at [facility] and she is due for another pneumovax- last pneumovax was in 2008 - so she can have pneumovax now and the prevnar in 2017 05/21/2016 Appointment: Carleen Anaya WPtel: [phone] [facility]66[facility] (15 min) Moderate 05/21/2016 Patient Education: Patient Medication Summary Completed 05/21/2016 Referral: Medardo Del Real [address] Referral Completed 05/12/2016 Visit Plan: Esophageal [...] times daily 05/07/2016 Appointment: Carleen Anaya WPtel: [facility]9 [facility] (15 min) Moderate 05/07/2016 Patient Education: Patient Medication Summary Completed 05/07/2016 Appointment: Mimi Espinosa WPtel: [phone] (30 min) Complex 05/01/2016 Visit Plan: [...] Kenalog injection today in the office Sore rrojjj-zqtwyzbei-moteo dexilant-refer to Dr Del Real for evaluation 04/28/2016 Appointment: Mimi Espinosa WPtel: [phone] [phone] (30 min) Complex 04/28/2016 Patient Education: [...] medication switched. 04/07/2016 Appointment: [facility]ostegui [facility] [place] (30 min) Complex 04/07/2016 Patient [...] atigue-check labs including UA-culture if positive Urge jaiaycdzrqxk-ienmrryyh-rggtc UA with C&S 04/03/2016 Appointment: [facility]spinosa [phone] [place] (30 min) Complex 04/03/2016 Patient Education: Patient Medication Summary Completed 04/03/2016 Visit Plan: Hypertension - well controlled - continue with current medications, continue with no added salt diet. Pt has been encouraged to exercise daily. The pt has been advised to call the office if there are any acute concerns about change in blood pressure readings at home. Fokhjsgps-skfxtnrq-evgiobdj MRI brain Right ankle hpto-lxbfffw-uywj right ankle- plan to refer to physical [...] to medications. 07/31/2015 App[facility]ment: [phone] (15 min) Moderate 07/31/2015 Patient Education: Patient Medication Summary Completed 07/31/2015 Patient Education: Hypertension Completed 07/31/2015 Care Plan: Referral Order SNOMED-CT : [id number] Ordered 07/31/2015 Visit Plan: Hypertension - uncontrolled [...] Nortryptyline 07/03/2015 Appointment: [phone] [facility] (15 min) Moderate 07/03/2015 Patient Education: Patient [...] Completed 01/11/2015 [facility] Referral Appointment Requested Referral: External, Ordering Provider Referral Appointment Requested Referral: External, Ordering Provider Referral Relationship Referral: [facility] Referral Appointment Requested Instructions Comment . Hypertension [...] will not do so at this time. repeat INR in 2 weeks repeat a [...] of protein. high dose flu shot today extended release melatonin - you can take [...] feet elevated at night to reduce swelling. . Hypertension - uncontrolled - the patient's [...] in symptoms, worsening redness, warmth, discharge. . Hypothyroidism - pt with chronic hypothyroidism, [...] heart beat - recommended evaluation by her Supervisor Delivery Department - Dr. Butler - I attempted a phone call to the office of Dr. Butler, I had to leave a message on the answering machine. If i don't hear back from Dr. Butler's office, we will need to do a Holter monitor on patient. Flonase 1 spray each nare daily . [...] to assure normal liver response to medications. CHECK LABS CHECK URINE . Hypertension - [...] Fatigue-check labs including UA-culture if positive Urge poczhoviflea-tbhfdakhx-osxnh UA with C&S . Hypertension - well [...] pain occurs at the site of injection. add z-pack, continue cefdinir - take a [...] incontinence - sample of myrbetriq 50mg daily. . Hypertension - well controlled - continue [...] months based on previous levels of control. DEXILANT 60MG DAILY . Allergies - chronic [...] Kenalog injection today in the office Sore qqmozp-arqhicvyc-ffggv dexilant-refer to Dr Del Real for evaluation CHECK LABS AND UA . Edema - pt has been advised to elevate legs to prevent dependent edema, compression has been recommended to help to naturally decrease peripheral edema. Diuretic use has been discussed and pt has been instructed in appropriate use of such medication as necessary to further attempt to reduce peripheral edema. Weakness-fatigue- check labs Dysuria- check UA JFX-nrndpiycln-ox changes in medications . Hypertension - well controlled - continue with current medications, continue with no added salt diet. Pt has been encouraged to exercise daily. The pt has been advised to call the office if there are any acute concerns about change in blood pressure readings at home. Saqbkqidm-klanslvg-thsnedet MRI brain Right ankle tyjy-szflbgz-zszw right ankle-plan to refer to physical therapy if appropriate . Weakness, fatigue - UA negative - [...] - Monitor symptoms - continue with myrbetric voltaren gel - apply two grams onto [...] planning on getting a flu shot at [facility] and she is due for another pneumovax- last pneumovax was in 2008 - so she can have pneumovax now and the prevnar in 2017 . Sciatica- pt to continue with aleve twice daily and cyclobenzaprine x 1 week. Pt is to call if the symptoms do not improve or if they worsen. referral to [facility] physical therapy. . Hypertension - well [...] do not improve or if they worsen. [id number] - kenalog Stop Oxybutynin chloride ER. Start [...] is to keep her appointment with her coastal and estuary specialist for her ECHO and Carotid US. Pt [...]
--- OUTSIDE RECORDS SUMMARY | 2019-01-01 12:22 | XMS REPORT | CCD ---
Author Author [facility] Organization [facility] Address [address] [place] [address] Phone Care Team Providers Care Medical Case Worker Name Role Phone PP Unavailable CCM Unavailable Summary Purpose Interface Exchange Insurance Providers Payer name Policy type / Coverage type Covered constitution party ID Effective Begin Date Effective End Date WPS Medicare Part B Medicare Part B [id number] Unknown Unknown [facility] Medicare Part B [id number] Unknown Unknown Family history Father Diagnosis Age At Onset Cancer Unknown Arthritis Unknown Mother Diagnosis Age At Onset Breast cancer Unknown Arthritis Unknown Social History Social History Element Codes Description Effective Dates Alcohol history Unknown occasionally drinks alcohol 06/08/2018 Frequency of drinks SNOMED CT: 009114640 Drinks rarely 06/08/2018 Marital status Unknown 01/11/2015 Number of children Unknown 3 01/11/2015 Employment Unknown Retired 01/11/[address]: 7112745 Quit over 10 years ago 1950 01/11/[address]: 852817115 Never drinks alcohol 01/11/2015 Allergies, Adverse Reactions, Alerts Substance Reaction Codes Entered Date Inactivated Date Status * OTHER REACTION - SEE ANSWER BOX vancogein red Unknown 01/11/2015 No Inactive Date Active CODEINE RxNorm: 2670 01/11/2015 No Inactive Date Active demerol RxNorm: 032654 08/30/2015 No Inactive Date Active hydrocodone Unknown [...] ICD-9: 782.3 ICD-10: R60.0 Active 08/05/2017 Unknown care home (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 of anticoagulants ICD-9: V58.61 ICD-10: [...] edema ICD-9: 782.3 ICD-10: R60.0 08/05/2017 Active care home (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 of anticoagulants ICD-9: V58.61 ICD-10: [...] Start Date Stop Date Status Fill Instructions losartan 25 mg tablet RxNorm: 275972 TAKE 1 TABLET BY MOUTH ONCE DAILY 08/30/2018 No Stop Date Active Myrbetriq 50 mg tablet,extended release RxNorm: 2910416 1 Tablet(s) PO daily 08/24/2018 12/21/2018 Active Synthroid 175 mcg tablet RxNorm: 839101 1 Tablet(s) PO 4 times a week Thu Sat sun 07/20/2018 12/16/2018 Active alternate with 175mcg order Synthroid 200 mcg tablet RxNorm: 264915 Tablet(s) TAKE ONE TABLET BY MOUTH ON THURSDAY, Thursday07/20/2018 No Stop Date Active pantoprazole 40 mg tablet,delayed release RxNorm: 409040 TAKE ONE TABLET BY MOUTH TWICE DAILY 07/19/2018 No Stop Date Active furosemide 40 mg tablet RxNorm: 104349 1 Tablet(s) PO 2 times weekly with song roberto per dr butler 07/13/2018 No Stop Date Active Synthroid 200 mcg tablet RxNorm: 612182 TAKE ONE TABLET BY MOUTH ON THURSDAY, THURSDAY, AND Thursday07/13/2018 07/19/2018 Inactive Vitamin D3 400 unit capsule RxNorm: 248566 1 Capsule(s) PO daily 06/17/2018 No Stop Date Active Aspirin Low Dose 81 mg tablet,delayed release RxNorm: 714060 1 Tablet(s) PO BIW on Thursday and Thursday06/17/2018 No Stop Date Active biotin 1,000 mcg chewable tablet RxNorm: 8252080 1 Tablet(s) PO daily 06/17/2018 No Stop Date Active Vitamin B-12 500 mcg tablet RxNorm: 292235 1 Tablet(s) PO daily 06/17/2018 No Stop Date Active Colace 100 mg capsule RxNorm: 6571515 1 Capsule(s) PO QHS 06/08/2018 No Stop Date Active Coumadin 3 mg tablet RxNorm: 596126 1 Tablet(s) PO daily x5 days and 2 mg x2 days -Managed by Dr. Bowman 06/08/2018 No Stop Date Active Keflex 500 mg capsule RxNorm: 588306 1 Capsule(s) PO TID 05/25/2018 05/31/2018 Inactive metoprolol succinate ER 100 mg tablet,extended release 24 hr RxNorm: 391816 Tablet(s) TAKE ONE TABLET BY MOUTH ONCE DAILY 05/19/2018 No Stop Date Active Coumadin 3 mg tablet RxNorm: 472528 1 Tablet(s) PO daily -Managed by Dr. Bowman 05/04/2018 06/07/2018 Inactive Synthroid 175 mcg tablet RxNorm: 059606 TAKE 1 TABLET BY MOUTH ONCE DAILY 04/06/2018 06/07/2018 Inactive cyclobenzaprine 5 mg tablet RxNorm: 999221 1/2 Tablet(s) PO TID 04/06/2018 04/15/2018 Inactive Synthroid 200 mcg tablet RxNorm: 684614 1 Tablet(s) PO TIW [facility] 04/05/2018 07/12/2018 Inactive brand name only- Alternate with 175mcg dose schedule Synthroid 175 mcg tablet RxNorm: 846281 1 Tablet(s) PO 4 times a week Thu04/05/2018 07/19/2018 Inactive alternate with 175mcg order cyclobenzaprine 5 mg tablet RxNorm: 748113 1/2 Tablet(s) PO TID 03/23/2018 04/01/2018 Inactive tramadol 50 mg tablet RxNorm: 820956 1 Tablet(s) PO TID as needed 03/17/2018 No Stop Date Active Kenalog 40 mg/mL suspension for injection RxNorm: 3997318 2 Milliliter(s) Inj 03/12/2018 03/12/2018 Inactive prednisone 20 mg tablet RxNorm: 706561 2 Tablet(s) PO daily 03/11/2018 03/10/2018 Inactive prednisone 20 mg tablet RxNorm: 655786 2 Tablet(s) PO daily 03/11/2018 03/15/2018 Inactive losartan 25 mg tablet RxNorm: 345093 TAKE ONE TABLET BY MOUTH ONCE DAILY 02/16/2018 08/29/2018 Inactive doxycycline hyclate 100 mg tablet RxNorm: 5642260 1 Tablet(s) PO BID 02/08/2018 02/14/2018 Inactive ceftriaxone 500 mg solution for injection RxNorm: 4677406 Inj 02/08/2018 02/08/2018 Inactive dapsone 25 mg tablet RxNorm: 112135 2 Tablet(s) PO daily 02/08/2018 02/12/2018 Inactive metoprolol succinate ER 100 mg tablet,extended release 24 hr RxNorm: 366413 TAKE ONE TABLET BY MOUTH ONCE DAILY 01/05/2018 05/18/2018 Inactive Synthroid 175 mcg tablet RxNorm: 964894 1 Tablet(s) PO daily 01/01/2018 03/31/2018 Inactive Synthroid 175 mcg tablet RxNorm: 337568 1 Tablet(s) PO daily 01/01/2018 12/31/2017 Inactive Myrbetriq 50 mg tablet,extended release RxNorm: 2558314 1 Tablet(s) PO daily 12/03/2017 01/01/2018 Inactive Zithromax Z-Oliver 250 mg tablet RxNorm: 504555 1 Tablet(s) PO UD 10/12/2017 10/16/2017 Inactive Tessalon Perles 100 mg capsule RxNorm: 499483 2 Capsule(s) PO TID as needed 10/12/2017 10/16/2017 Inactive prednisone 20 mg tablet RxNorm: 165351 2 Tablet(s) PO daily 10/12/2017 10/16/2017 Inactive cefdinir 300 mg capsule RxNorm: 420999 1 Capsule(s) PO BID 10/08/2017 10/07/2017 Inactive Synthroid 150 mcg tablet RxNorm: 336524 1 Tablet(s) PO daily in morning, except 1/2 Tablet PO Wed, Sat, take 30 minutes before meal 10/08/2017 04/04/2018 Inactive brand name only cefdinir 300 mg capsule RxNorm: 241501 1 Capsule(s) PO BID 10/08/2017 10/14/2017 Inactive Synthroid 150 mcg tablet RxNorm: 191544 1 Tablet(s) PO daily in morning, take 30 minutes before meal 10/06/2017 10/07/2017 Inactive brand name only cefdinir 300 mg capsule RxNorm: 593554 1 Capsule(s) PO BID 08/24/2017 08/30/2017 Inactive Zithromax Z-Oliver 250 mg tablet RxNorm: 200812 1 Tablet(s) PO UD 08/20/2017 08/19/2017 Inactive Zithromax Z-Oliver 250 mg tablet RxNorm: 610695 1 Tablet(s) PO UD 08/20/2017 08/24/2017 Inactive Synthroid 150 mcg tablet RxNorm: 264687 1 Tablet(s) PO daily in morning, take 30 minutes before meal 08/05/2017 08/04/2017 Inactive Synthroid 150 mcg tablet RxNorm: 288679 1 Tablet(s) PO daily in morning, take 30 minutes before meal 08/05/2017 10/05/2017 Inactive Coumadin 3 mg tablet RxNorm: 757655 1 Tablet(s) PO Thursday, , , and Thu- Managed by Dr. Bowman -Managed by Dr. Bowman 08/05/2017 05/03/2018 Inactive pantoprazole 40 mg tablet,delayed release RxNorm: 141900 1 Tablet(s) PO BID 07/08/2017 07/02/2018 Inactive pantoprazole 40 mg tablet,delayed release RxNorm: 065141 1 Tablet(s) PO BID 07/08/2017 07/07/2017 Inactive metoprolol succinate ER 100 mg tablet,extended release 24 hr RxNorm: 705710 TAKE ONE TABLET BY MOUTH ONCE DAILY 07/08/2017 01/04/2018 Inactive Coumadin 3 mg tablet RxNorm: 349963 1 Tablet(s) PO QPM -Managed by Dr. Bowman 07/06/2017 08/04/2017 Inactive Coumadin 3 mg tablet RxNorm: 200205 1 Tablet(s) PO QPM at 6:00pm Managed by Dr Bowman 1/2 pill on thursday and thursday, full pill other days 06/18/2017 07/05/2017 Inactive Voltaren 1 % topical gel RxNorm: 211581 2 TOP QID 06/18/2017 10/15/2017 Inactive Micro-K 10 10 mEq capsule,extended release RxNorm: 703814 1 Capsule(s) PO daily 05/08/2017 12/02/2017 Inactive Synthroid 137 mcg tablet RxNorm: 008024 1 Tablet(s) PO QAM 05/08/2017 08/04/2017 Inactive Dose increased 04/14/17 pravastatin 10 mg tablet RxNorm: 117042 1 Tablet(s) PO daily TAKE ONE TABLET BY MOUTH ONCE DAILY 05/08/2017 12/02/2017 Inactive losartan 25 mg tablet RxNorm: 046818 1 Tablet(s) PO daily TAKE ONE TABLET BY MOUTH ONCE DAILY 05/08/2017 06/07/2018 Inactive Namenda 10 mg tablet RxNorm: 168196 TAKE ONE TABLET BY MOUTH TWICE DAILY 05/07/2017 12/02/2017 Inactive Keflex 500 mg capsule RxNorm: 246554 1 Capsule(s) PO TID 04/27/2017 05/03/2017 Inactive Synthroid 137 mcg tablet RxNorm: 929983 1 Tablet(s) PO QAM 04/14/2017 04/13/2017 Inactive Vitamin D2 50,000 unit capsule RxNorm: 876568 1 Capsule(s) PO QW 04/14/2017 12/02/2017 Inactive Synthroid 137 mcg tablet RxNorm: 736992 1 Tablet(s) PO QAM 04/14/2017 05/07/2017 Inactive losartan 25 mg tablet RxNorm: 791656 TAKE ONE TABLET BY MOUTH ONCE DAILY 03/23/2017 05/07/2017 Inactive Synthroid 125 mcg tablet RxNorm: 122886 TAKE ONE TABLET BY MOUTH ONCE DAILY 03/12/2017 04/12/2017 Inactive ciprofloxacin 500 mg tablet RxNorm: 885960 1 Tablet(s) PO BID 2017 03/13/2017 Inactive prednisone 20 mg tablet RxNorm: 813922 2 Tablet(s) PO daily 03/03/2017 03/07/2017 Inactive tramadol 50 mg tablet RxNorm: 449477 1/2 Tablet(s) PO TID as needed 03/03/2017 12/02/2017 Inactive pravastatin 10 mg tablet RxNorm: 757333 TAKE ONE TABLET BY MOUTH ONCE DAILY 01/19/2017 05/07/2017 Inactive nortriptyline 10 mg capsule RxNorm: 016076 TAKE ONE CAPSULE BY MOUTH ONCE DAILY IN THE EVENING 01/14/2017 12/02/2017 Inactive Voltaren 1 % topical gel RxNorm: 103594 TOP QID 12/22/2016 02/19/2017 Inactive Voltaren 1 % topical gel RxNorm: 773927 TOP QID 12/22/2016 12/21/2016 Inactive prednisone 20 mg tablet RxNorm: 993111 2 Tablet(s) PO daily 12/19/2016 12/23/2016 Inactive cyclobenzaprine 5 mg tablet RxNorm: 826235 1/2 Tablet(s) PO BID as needed 12/19/2016 12/23/2016 Inactive Flector 1.3 % transdermal 12 hour patch RxNorm: 354724 1 Patch TOP every 12 hours as needed 12/19/2016 12/02/2017 Inactive losartan 25 mg tablet RxNorm: 634959 1 Tablet(s) PO daily TAKE ONE TABLET BY MOUTH ONCE DAILY 11/13/2016 03/22/2017 Inactive Namenda 10 mg tablet RxNorm: 336407 TAKE ONE TABLET BY MOUTH TWICE DAILY 10/28/2016 04/25/2017 Inactive nortriptyline 10 mg capsule RxNorm: 400235 TAKE ONE CAPSULE BY MOUTH ONCE DAILY IN THE EVENING 10/13/2016 01/10/2017 Inactive ceftriaxone 500 mg solution for injection RxNorm: 0078714 Inj 10/06/2016 10/06/2016 Inactive cefdinir 300 mg capsule RxNorm: 375861 1 Capsule(s) PO BID 10/06/2016 10/12/2016 Inactive prednisone 20 mg tablet RxNorm: 446088 2 Tablet(s) PO daily 10/06/2016 10/08/2016 Inactive ProAir RespiClick 90 mcg/actuation breath activated RxNorm: 7510385 2 INH TID x 3 days then one inhale tid x 3 days then prn shortness of breath 10/06/2016 11/04/2016 Inactive Kenalog 40 mg/mL suspension for injection RxNorm: 5759746 1 Milliliter(s) Inj 10/06/2016 10/06/2016 Inactive Myrbetriq 50 mg tablet,extended release RxNorm: 2998944 1 Tablet(s) PO daily 09/11/2016 11/12/2016 Inactive Namenda 10 mg tablet RxNorm: 291208 TAKE ONE TABLET BY MOUTH TWICE DAILY 07/25/2016 10/22/2016 Inactive hydrochlorothiazide 25 mg tablet RxNorm: 400323 1 Tablet(s) PO daily 07/25/2016 12/02/2017 Inactive Synthroid 125 mcg tablet RxNorm: 724067 TAKE ONE TABLET BY MOUTH ONCE DAILY 07/14/2016 03/10/2017 Inactive losartan 25 mg tablet RxNorm: 648375 TAKE ONE TABLET BY MOUTH ONCE DAILY 07/07/2016 11/12/2016 Inactive metoprolol succinate ER 100 mg tablet,extended release 24 hr RxNorm: 417633 1 Tablet(s) PO daily 06/16/2016 06/10/2017 Inactive nortriptyline 10 mg capsule RxNorm: 699146 Capsule(s) TAKE ONE CAPSULE BY MOUTH ONCE DAILY IN THE EVENING 06/09/2016 10/06/2016 Inactive Myrbetriq 50 mg tablet,extended release RxNorm: 9815024 1 Tablet(s) PO daily 05/21/2016 09/10/2016 Inactive doxycycline hyclate 100 mg tablet RxNorm: 208183 1 Tablet(s) PO BID 05/07/2016 05/13/2016 Inactive Carafate 100 mg/mL oral suspension RxNorm: 553121 10 Milliliter(s) PO QID 05/07/2016 12/02/2017 Inactive Kenalog 40 mg/mL suspension for injection RxNorm: 8765437 Milliliter(s) Inj 04/28/2016 04/28/2016 Inactive losartan 25 mg tablet RxNorm: 046892 TAKE ONE TABLET BY MOUTH ONCE DAILY 04/08/2016 07/06/2016 Inactive ciprofloxacin 500 mg tablet RxNorm: 053262 1 Tablet(s) PO BID 04/07/2016 04/13/2016 Inactive cyclobenzaprine 5 mg tablet RxNorm: 812398 1 Tablet(s) PO TID 04/07/2016 04/16/2016 Inactive Keflex 500 mg capsule RxNorm: 655884 1 Capsule(s) PO TID 04/03/2016 04/02/2016 Inactive Keflex 500 mg capsule RxNorm: 040778 1 Capsule(s) PO TID 04/03/2016 04/09/2016 Inactive losartan 25 mg tablet RxNorm: 256851 TAKE ONE TABLET BY MOUTH ONCE DAILY 03/06/2016 04/07/2016 Inactive nortriptyline 10 mg capsule RxNorm: 686538 TAKE ONE CAPSULE BY MOUTH ONCE DAILY IN THE EVENING 03/06/2016 06/03/2016 Inactive pravastatin 10 mg tablet RxNorm: 424209 TAKE ONE TABLET BY MOUTH ONCE DAILY 02/04/2016 01/18/2017 Inactive warfarin 4 mg tablet RxNorm: 437918 Tablet(s) PO q d except 5mg on tue 01/31/2016 06/17/2017 Inactive Myrbetriq 50 mg tablet,extended release RxNorm: 9647703 1 Tablet(s) PO daily 01/17/2016 05/15/2016 Inactive Namenda 10 mg tablet RxNorm: 936147 1 Tablet(s) PO BID 01/01/2016 06/28/2016 Inactive Myrbetriq 50 mg tablet,extended release RxNorm: 0850147 1 Tablet(s) PO daily 12/20/2015 12/20/2015 Inactive Synthroid 125 mcg tablet RxNorm: 172334 1 Tablet(s) PO daily 11/14/2015 07/10/2016 Inactive nortriptyline 10 mg capsule RxNorm: 867025 TAKE ONE CAPSULE BY MOUTH ONCE DAILY IN THE EVENING 11/05/2015 03/03/2016 Inactive Myrbetriq 50 mg tablet,extended release RxNorm: 6428062 1 Tablet(s) PO daily 10/01/2015 12/19/2015 Inactive Namenda 10 mg tablet RxNorm: 545138 1 Tablet(s) PO BID 08/30/2015 12/31/2015 Inactive Vesicare 10 mg tablet RxNorm: 188351 1 Tablet(s) PO daily 08/30/2015 09/30/2015 Inactive warfarin 4 mg tablet RxNorm: 244529 Tablet(s) PO 08/30/2015 01/30/2016 Inactive Synthroid 125 mcg tablet RxNorm: 936830 1 Tablet(s) PO daily 08/02/2015 11/13/2015 Inactive Synthroid 125 mcg tablet RxNorm: 157554 Tablet(s) PO 08/01/2015 08/01/2015 Inactive losartan 25 mg tablet RxNorm: 971390 1 Tablet(s) PO daily 07/31/2015 02/25/2016 Inactive pravastatin 10 mg tablet RxNorm: 335657 1 Tablet(s) PO daily 07/23/2015 01/18/2016 Inactive hydrochlorothiazide 25 mg tablet RxNorm: 183651 1 Tablet(s) PO daily 07/19/2015 07/12/2016 Inactive nortriptyline 10 mg capsule RxNorm: 438436 1 Capsule(s) PO QPM 07/03/2015 10/30/2015 Inactive metoprolol succinate ER 100 mg tablet,extended release 24 hr RxNorm: 785133 1 Tablet(s) PO daily 06/06/2015 05/30/2016 Inactive pravastatin 10 mg tablet RxNorm: 166198 1 Tablet(s) PO daily 01/22/2015 07/20/2015 Inactive aspirin 81 mg capsule,delayed release RxNorm: 273106 1 Capsule(s) PO daily 01/11/2015 02/09/2015 Inactive Fosamax 5 mg tablet RxNorm: 467019 1 Tablet(s) QW 01/11/2015 12/02/2017 Inactive oxybutynin chloride ER 10 mg tablet,extended release 24 hr RxNorm: 523442 1 Tablet(s) PO daily 01/11/2015 08/29/2015 Inactive Fosamax 70 mg tablet RxNorm: 986107 1 Tablet(s) PO QW No Start Date Active Claritin oral RxNorm: 87514 oral No Start Date Active Centrum oral RxNorm: oral No Start Date Active Calcium 600 + D(3) oral RxNorm: 663533 oral No Start Date Active Coumadin 4 mg tablet RxNorm: 411662 1 Tablet(s) PO daily on M,W,F No Start Date 06/07/2018 Inactive Vitamin D3 oral RxNorm: oral No Start Date 06/16/2018 Inactive pravastatin 10 mg tablet RxNorm: 390797 1 Tablet(s) PO daily No Start Date 01/21/2015 Inactive Aspirin Low Dose 81 mg tablet,delayed release RxNorm: 239486 1 Tablet(s) PO BIW on Thursday and Thursday No Start Date 06/16/2018 Inactive Tylenol PM oral RxNorm: 083464 oral No Start Date 04/07/2017 Inactive Vitamin D2 oral RxNorm: 4018 oral No Start Date 06/08/2018 Inactive Vitamin D2 50,000 unit capsule RxNorm: 217936 1 Capsule(s) PO QW No Start Date 04/13/2017 Inactive tramadol 50 mg tablet RxNorm: 148555 1 Tablet(s) PO TID as needed No Start Date 03/16/2018 Inactive Colace 100 mg capsule RxNorm: 7631714 Capsule(s) PO No Start Date 06/07/2018 Inactive furosemide 40 mg tablet RxNorm: 077705 1 Tablet(s) PO daily as needed No Start Date 07/12/2018 Inactive biotin oral RxNorm: oral No Start Date 06/16/2018 Inactive Micro-K 10 10 mEq capsule,extended release RxNorm: 972369 1 Capsule(s) PO daily No Start Date 05/07/2017 Inactive Synthroid 100 mcg tablet RxNorm: 326218 Tablet(s) PO No Start Date 07/31/2015 Inactive Vitamin B-12 oral RxNorm: oral No Start Date 06/16/2018 Inactive PreserVision AREDS 2 oral RxNorm: 9244911 oral No Start Date 06/07/2018 Inactive hydrochlorothiazide 25 mg tablet RxNorm: 863315 1 Tablet(s) PO daily No Start Date 07/18/2015 Inactive warfarin 2 mg tablet RxNorm: 179849 Tablet(s) PO No Start Date 08/29/2015 Inactive metoprolol succinate ER 100 mg tablet,extended release 24 hr RxNorm: 412391 1 Tablet(s) PO daily No Start Date 06/05/2015 Inactive warfarin 3 mg tablet RxNorm: 843318 Tablet(s) PO No Start Date 08/29/2015 Inactive Coumadin 3 mg tablet RxNorm: 905404 1 Tablet(s) PO QPM at 6:00pm Managed by Dr Bowman No Start Date 06/17/2017 Inactive Myrbetriq 50 mg tablet,extended release RxNorm: 0865764 1 Tablet(s) PO daily No Start Date 08/23/2018 Inactive Medication Administered Medication Codes Instructions Start Date Status Kenalog 40 mg/mL suspension for injection RxNorm: 9007293 2Milliliter 03/12/2018 No longer Active ceftriaxone 500 mg solution for injection RxNorm: 0850292 02/08/2018 No longer Active ceftriaxone 500 mg solution for injection RxNorm: 9738868 10/06/2016 No longer Active Kenalog 40 mg/mL suspension for injection RxNorm: 1631769 1Milliliter 10/06/2016 No longer Active Kenalog 40 mg/mL suspension for injection RxNorm: 0984641 Milliliter 04/28/2016 No longer Active Immunizations Vaccine Codes Date Status SHINGARIX CVX: 121 06/08/2018 completed Influenza CVX: 141 05/20/2018 completed Influenza CVX: 141 06/18/2017 completed Influenza CVX: 141 06/10/2016 completed Pneumococcal CVX: 133 05/29/2016 completed Influenza CVX: 141 07/03/2015 completed Assessments Condition Codes Effective Dates Essential (primary) hypertension ICD-10: I10 ICD-9: 401.1 07/20/2018 Atrophy of thyroid (acquired) ICD-10: E03.4 ICD-9: 244.8 07/20/2018 Other fatigue ICD-10: R53.83 ICD-9: 780.79 06/29/2018 Other insomnia ICD-10: G47.09 ICD-9: 327.09 06/29/2018 Encounter for general adult medical examination with abnormal findings ICD-10: Z00.01 ICD-9: V70.0 06/08/2018 Dysuria ICD-10: R30.0 ICD-9: 788.1 05/25/2018 Localized edema ICD-10: R60.0 ICD-9: 782.3 05/24/2018 care home (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 of anticoagulants ICD-10: Z79.01 ICD-9: [...] Visit Reason For Visit Effective Dates Notes neck pain 07/20/2018 hypertension 06/29/2018 Annual Medicare [...] NO Growth Day 2 05/27/2018 Comp Metabolic Zik348 NA 142 mEq/L 05/24/2018 Comp Metabolic Vxd046 K 4.0 mEq/L 05/24/2018 Comp Metabolic Ggi749 CL 104 mEq/L 05/24/2018 Comp Metabolic Nbb706 CO2 30.0 mEq/L 05/24/2018 Comp Metabolic Hts361 ANION GAP 12 05/24/2018 Comp Metabolic Hhx176 GLUCOSE 94 mg/dL 05/24/2018 Comp Metabolic Bic256 Creat 0.6 mg/dL 05/24/2018 Comp Metabolic Paq799 eGFR 97 ml/min/1.73m2 05/24/2018 Comp Metabolic Azl894 BUN 12 mg/dL 05/24/2018 Comp Metabolic Jam439 B/C Ratio 19.4 Ratio 05/24/2018 Comp Metabolic Vsc300 CALCIUM 8.8 mg/dL 05/24/2018 Comp Metabolic Ovq956 ALK PHOS 135 U/L 05/24/2018 Comp Metabolic Dap598 AST(SGOT) 18 U/L 05/24/2018 Comp Metabolic Vmt772 ALT(SGPT) 16 U/L 05/24/2018 Comp Metabolic Rdu920 BILI T 0.4 mg/dL 05/24/2018 Comp Metabolic Upv443 ALBUMIN 3.9 g/dL 05/24/2018 Comp Metabolic Yhw009 TPRO 6.0 g/dL 05/24/2018 Comp Metabolic Kfi769 GLOB 2.1 g/dL 05/24/2018 Comp Metabolic Htg356 A/G Ratio 1.8 Ratio 05/24/2018 Comp Metabolic Awm702 Osmo 283 mOsmo 05/24/2018 Pt Lmp7020 PT 28.2 seconds 05/24/2018 Pt Qam9045 INR 2.6 05/24/2018 Pt Xar3267 Low Intensity - 1.5-2.0 05/24/2018 Pt Gji6118 Mod intensity - 2.0-3.0 05/24/2018 Pt Uvx5631 Hi intensity - 3.0-4.0 05/24/2018 Cbc With Differential Ord2 WBC 7.30 K/ul 05/24/2018 Cbc With Differential Ord2 RBC 4.04 M/ul 05/24/2018 Cbc With Differential Ord2 HGB 12.0 g/dl 05/24/2018 Cbc With Differential Ord2 Neut% 66.0 % 05/24/2018 Cbc With Differential Ord2 HCT 38.9 % 05/24/2018 Cbc With Differential Ord2 Lymph% 21.1 % 05/24/2018 Cbc With Differential Ord2 MCV 96.3 fl 05/24/2018 Cbc With Differential Ord2 Sioux% 7.0 % 05/24/2018 Cbc With Differential Ord2 MCH 29.7 pg 05/24/2018 Cbc With Differential Ord2 MCHC 30.8 pg 05/24/2018 Cbc With Differential Ord2 Eos% 5.5 % 05/24/2018 Cbc With Differential Ord2 PLT 198 K/ul 05/24/2018 Cbc With Differential Ord2 Baso% 0.4 % 05/24/2018 Cbc With Differential Ord2 Neut ABS# 4.82 K/ul 05/24/2018 Cbc With Differential Ord2 RDW 15.0 % 05/24/2018 Cbc With Differential Ord2 Lymph ABS# 1.54 K/ul 05/24/2018 Cbc With Differential Ord2 [place] ABS# 0.5 K/ul 05/24/2018 Cbc With Differential Ord2 Eos ABS# 0.4 K/ul 05/24/2018 Cbc With Differential Ord2 Baso ABS# 0.0 K/ul 05/24/2018 Tsh Ord6 TSH (3rd IS) 3.19 uIU/mL 10/06/2017 Free T4 Kjl943 FREE T4 1.64 ng/dL 10/06/2017 Free T4 Jro301 FREE T4 1.03 ng/dL 08/05/2017 Tsh Ord6 hTSH II 6.19 uIU/mL 08/05/2017 Urine Culture Ucult Complete NO Growth Day 2 04/29/2017 Urine Culture Ucult Preliminary NO Growth Day 1 04/29/2017 Tsh Ord6 hTSH II 7.92 uIU/mL 04/09/2017 Lipid Ord30 CHOL 215 mg/dL 04/09/2017 Lipid Ord30 HDL 58.0 mg/dl 04/09/2017 Lipid Ord30 TRIG 68 mg/dL 04/09/2017 Lipid Ord30 LDL 143 mg/dL 04/09/2017 Lipid Ord30 C/HDL 3.7 Ratio 04/09/2017 Free T4 Hya981 FREE T4 0.97 ng/dL 04/09/2017 Tibc Ord40 Iron 36 ug/dl 04/09/2017 Tibc Ord40 UIBC 281 ug/dL 04/09/2017 Tibc Ord40 TIBC 317 ug/dL 04/09/2017 Tibc Ord40 Fe-%Sat 11.4 % 04/09/2017 Comp Metabolic Zzk044 NA 136 mEq/L 04/09/2017 Comp Metabolic Oov099 K 3.9 mEq/L 04/09/2017 Comp Metabolic Yif105 CL 98 mEq/L 04/09/2017 Comp Metabolic Vcr877 CO2 28.0 mEq/L 04/09/2017 Comp Metabolic Viz184 ANION GAP 14 04/09/2017 Comp Metabolic Rwl806 GLUCOSE 90 mg/dL 04/09/2017 Comp Metabolic Qvb715 Creat 0.6 mg/dL 04/09/2017 Comp Metabolic Zya092 eGFR 102 ml/min/1.73m2 04/09/2017 Comp Metabolic Egp304 BUN 9 mg/dL 04/09/2017 Comp Metabolic Rey031 B/C Ratio 15.3 Ratio 04/09/2017 Comp Metabolic Xuq169 CALCIUM 8.8 mg/dL 04/09/2017 Comp Metabolic Iah778 ALK PHOS 102 U/L 04/09/2017 Comp Metabolic Iwu426 AST(SGOT) 18 U/L 04/09/2017 Comp Metabolic Vke422 ALT(SGPT) 14 U/L 04/09/2017 Comp Metabolic Bsi605 BILI T 0.4 mg/dL 04/09/2017 Comp Metabolic Aos499 ALBUMIN 3.9 g/dL 04/09/2017 Comp Metabolic Sra505 TPRO 6.3 g/dL 04/09/2017 Comp Metabolic Glm786 GLOB 2.4 g/dL 04/09/2017 Comp Metabolic Tgf332 A/G Ratio 1.7 Ratio 04/09/2017 Comp Metabolic Fba493 Osmo 270 mOsmo 04/09/2017 Vitamin D 25 Oh Zhd3589 VITAMIN D, 25 HYDROXY 34.31 ng/mL 04/09/2017 Cbc With Differential Ord2 WBC 7.51 K/ul 04/09/2017 Cbc With Differential Ord2 RBC 4.39 M/ul 04/09/2017 Cbc With Differential Ord2 HGB 12.7 g/dl 04/09/2017 Cbc With Differential Ord2 Neut% 72.8 % 04/09/2017 Cbc With Differential Ord2 HCT 39.3 % 04/09/2017 Cbc With Differential Ord2 MCV 89.5 fl 04/09/2017 Cbc With Differential Ord2 Lymph% 16.2 % 04/09/2017 Cbc With Differential Ord2 MCH 28.9 pg 04/09/2017 Cbc With Differential Ord2 Sioux% 8.8 % 04/09/2017 Cbc With Differential Ord2 MCHC 32.3 pg 04/09/2017 Cbc With Differential Ord2 Eos% 1.7 % 04/09/2017 Cbc With Differential Ord2 Baso% 0.5 % 04/09/2017 Cbc With Differential Ord2 PLT 207 K/ul 04/09/2017 Cbc With Differential Ord2 Neut ABS# 5.46 K/ul 04/09/2017 Cbc With Differential Ord2 RDW 15.2 % 04/09/2017 Cbc With Differential Ord2 Lymph ABS# 1.22 K/ul 04/09/2017 Cbc With Differential Ord2 [place] ABS# 0.7 K/ul 04/09/2017 Cbc With Differential Ord2 Eos ABS# 0.1 K/ul 04/09/2017 Cbc With Differential Ord2 Baso ABS# 0.0 K/ul 04/09/2017 Urine Culture Ucult Complete >100,000 col/ml aerobic growth sent to ref lab 03/05/2017 Pt Yuy2206 PT 24.2 seconds 04/14/2016 Pt Wef9326 INR 2.3 04/14/2016 Pt Osd9701 Low Intensity - 1.5-2.0 04/14/2016 Pt [id number] Mod intensity - 2.0-3.0 04/14/2016 Pt [id number] Hi intensity - 3.0-4.0 04/14/2016 Pt [id number] PT 31.3 seconds 04/10/2016 Pt [id number] INR 3.3 04/10/2016 Pt [id number] Low Intensity - 1.5-2.0 04/10/2016 Pt [id number] Mod intensity - 2.0-3.0 04/10/2016 Pt [id number] Hi intensity - 3.0-4.0 04/10/2016 C RAP A SC [id number] Strep A Negative 04/10/2016 Urine Culture Ucult Complete >100,000 col/ml aerobic growth sent to ref lab 04/04/2016 Comp Metabolic Hrq492 NA 136 mEq/L 04/03/2016 Comp Metabolic Imf750 K 3.9 mEq/L 04/03/2016 Comp Metabolic Qhy327 CL 99 mEq/L 04/03/2016 Comp Metabolic Cyz668 CO2 32.0 mEq/L 04/03/2016 Comp Metabolic Rrd549 ANION GAP 9 04/03/2016 Comp Metabolic Gkq181 GLUCOSE 88 mg/dL 04/03/2016 Comp Metabolic Lyr628 Creat 0.6 mg/dL 04/03/2016 Comp Metabolic Kda711 eGFR 93 ml/min/1.73m2 04/03/2016 Comp Metabolic Mkr826 BUN 15 mg/dL 04/03/2016 Comp Metabolic Xhc439 B/C Ratio 23.4 Ratio 04/03/2016 Comp Metabolic Zoh566 CALCIUM 8.7 mg/dL 04/03/2016 Comp Metabolic Iws372 ALK PHOS 100 U/L 04/03/2016 Comp Metabolic Mrf414 AST(SGOT) 28 U/L 04/03/2016 Comp Metabolic Sgy317 ALT(SGPT) 39 U/L 04/03/2016 Comp Metabolic Bjx695 BILI T 0.5 mg/dL 04/03/2016 Comp Metabolic Wwo343 ALBUMIN 4.1 g/dL 04/03/2016 Comp Metabolic Fkb810 TPRO 6.6 g/dL 04/03/2016 Comp Metabolic Dix981 GLOB 2.5 g/dL 04/03/2016 Comp Metabolic Qhy041 A/G Ratio 1.7 Ratio 04/03/2016 Comp Metabolic Vve300 Osmo 272 mOsmo 04/03/2016 Cbc With Differential [...] 29.0 pg 04/03/2016 Cbc With Differential Ord2 [place]% 11.3 % 04/03/2016 Cbc With Differential Ord2 MCHC 31.7 pg 04/03/2016 Cbc With Differential Ord2 Eos% 2.1 % 04/03/2016 Cbc With Differential Ord2 Baso% 0.6 % 04/03/2016 Cbc With Differential Ord2 PLT 172 K/ul 04/03/2016 Cbc With Differential Ord2 RDW 14.4 % 04/03/2016 Cbc With Differential Ord2 Neut ABS# 5.11 K/ul 04/03/2016 Cbc With Differential Ord2 Lymph ABS# 1.15 K/ul 04/03/2016 Cbc With Differential Ord2 [place] ABS# 0.8 K/ul 04/03/2016 Cbc With Differential Ord2 Eos ABS# 0.2 K/ul 04/03/2016 Cbc With Differential Ord2 Baso ABS# 0.0 K/ul 04/03/2016 Tsh Ord6 hTSH II 3.06 uIU/mL 04/03/2016 Free T4 Thv277 FREE T4 0.99 ng/dL 04/03/2016 Free T4 Udc009 FREE T4 0.81 ng/dL 07/31/2015 Comp Metabolic Usg015 NA 136 mEq/L 07/31/2015 Comp Metabolic Leb495 K 3.8 mEq/L 07/31/2015 Comp Metabolic Llw117 CL 97 mEq/L 07/31/2015 Comp Metabolic Hyn694 CO2 29.0 mEq/L 07/31/2015 Comp Metabolic Ofr842 ANION GAP 14 07/31/2015 Comp Metabolic Dul008 GLUCOSE 90 mg/dL 07/31/2015 Comp Metabolic Pmf030 Creat 0.7 mg/dL 07/31/2015 Comp Metabolic Dsn842 eGFR 80 ml/min/1.73m2 07/31/2015 Comp Metabolic Non051 BUN 8 mg/dL 07/31/2015 Comp Metabolic Qfq596 B/C Ratio 11.0 Ratio 07/31/2015 Comp Metabolic Eqc022 CALCIUM 8.9 mg/dL 07/31/2015 Comp Metabolic Che732 ALK PHOS 102 U/L 07/31/2015 Comp Metabolic Dcx104 AST(SGOT) 22 U/L 07/31/2015 Comp Metabolic Npk231 ALT(SGPT) 14 U/L 07/31/2015 Comp Metabolic Aui705 BILI T 0.5 mg/dL 07/31/2015 Comp Metabolic Mxs726 ALBUMIN 4.4 g/dL 07/31/2015 Comp Metabolic Yge405 TPRO 6.7 g/dL 07/31/2015 Comp Metabolic Phe194 GLOB 2.3 g/dL 07/31/2015 Comp Metabolic Ojy052 A/G Ratio 1.9 Ratio 07/31/2015 Comp Metabolic Rpm896 Osmo 270 mOsmo 07/31/2015 Tsh Ord6 hTSH [...] Lipid Ord30 C/HDL 4.8 Ratio 07/31/2015 Pt Jps3579 PT 31.9 seconds 07/03/2015 Pt Bsc8660 INR 3.2 07/03/2015 Pt Ojo8923 Low Intensity - 1.5-2.0 07/03/2015 Pt Xva5341 Mod intensity - 2.0-3.0 07/03/2015 Pt Exp0815 Hi intensity - 3.0-4.0 07/03/2015 Review of Systems System Result Effective Dates Constitutional No recent illness 07/20/2018 Constitutional No [...] G0439 06/08/2018 URINALYSIS NONAUTO W/O SCOPE CPT-4: 77668 05/25/2018 ADMIN INFLUENZA VIRUS VAC CPT-4: G0008 05/20/2018 FLU VACC PRSV FREE INC ANTIG CPT-4: 58898 05/20/2018 DRAIN/INJECT JOINT/BURSA CPT-4: 95370 03/23/2018 TRIAMCINOLONE ACET INJ NOS CPT-4: J3301 03/23/2018 DRAIN/INJECT JOINT/BURSA CPT-4: 24324 03/12/2018 TRIAMCINOLONE ACET INJ NOS CPT-4: J3301 03/12/2018 ROCEPHIN, PER 250 MG CPT- 4: J0696 02/08/2018 ADMIN INFLUENZA VIRUS VAC CPT-4: G0008 06/18/2017 FLU VACC PRSV FREE INC ANTIG CPT-4: 45282 06/18/2017 URINALYSIS NONAUTO W/O SCOPE CPT-4: 05893 04/27/2017 URINALYSIS NONAUTO W/O SCOPE CPT-4: 00239 2017 DRAIN/INJECT JOINT/BURSA CPT-4: 49396 03/03/2017 TRIAMCINOLONE ACET INJ NOS CPT-4: J3301 03/03/2017 TRIAMCINOLONE ACET INJ NOS CPT-4: J3301 10/06/2016 ROCEPHIN, PER 250 MG CPT- 4: J0696 10/06/2016 THER/PROPH/DIAG INJ SC/IM CPT-4: 92635 10/06/2016 TRIAMCINOLONE ACET INJ NOS CPT-4: J3301 04/28/2016 URINALYSIS NONAUTO W/O SCOPE CPT-4: 76945 04/03/2016 ADMIN INFLUENZA VIRUS VAC CPT-4: G0008 07/03/2015 FLU VACC PRSV FREE INC ANTIG CPT-4: 68434 07/03/2015 Vital Signs Date Vital 07/20/2018 Blood Pressure 1: 124/70 Code: 8480-6 Heart Rate 1: 76 bpm Height: SpO2: 95% Weight: 06/29/2018 Blood Pressure 1: 142/80 Code: 8480-6 BMI: 27.8 Code: 96918-1 Heart Rate 1: 89 bpm Height: 5'6" SpO2: 94% Weight: 172 lbs 06/08/2018 Blood Pressure 1: 144/66 Code: 8480-6 BMI: 27.9 Code: 53622-7 Heart Rate 1: 85 bpm Height: 5'6" SpO2: 97% Waist Measure (cm): 97 cm Weight: 173 lbs 05/24/2018 Blood Pressure 1: 128/72 Code: 8480-6 BMI: 27.9 Code: 87370-8 Heart Rate 1: 82 bpm Height: 5'6" SpO2: 92% Weight: 173 lbs 04/06/2018 Blood Pressure 1: 138/88 Code: 8480-6 Heart Rate 1: 86 bpm Height: SpO2: 96% Weight: 03/23/2018 Blood Pressure 1: 150/88 Code: 8480-6 Heart Rate 1: 80 bpm Height: SpO2: 96% Weight: 03/12/2018 Heart Rate 1: 90 bpm Height: Weight: 03/02/2018 Blood Pressure 1: 128/80 Code: 8480-6 BMI: 28.4 Code: 35822-0 Heart Rate 1: 83 bpm Height: 5'6" SpO2: 93% Weight: 176 lbs 02/08/2018 Blood Pressure 1: 142/80 Code: 8480-6 Heart Rate 1: 78 bpm Height: 5'6" SpO2: 94% 12/03/2017 Blood Pressure 1: 124/78 Code: 8480-6 BMI: 27.9 Code: 27313-9 Heart Rate 1: 70 bpm Height: 5'6" SpO2: 97% Weight: 173 lbs 10/27/2017 Blood Pressure 1: 126/60 Code: 8480-6 Heart Rate 1: 65 bpm Height: 5'6" SpO2: 98% Weight: 10/12/2017 Blood Pressure 1: 126/74 Code: 8480-6 BMI: 26.0 Code: 29626-0 Heart Rate 1: 80 bpm Height: 5'6" SpO2: 89% Weight: 161 lbs 10/06/2017 Blood Pressure 1: 126/70 Code: 8480-6 BMI: 27.2 Code: 90575-5 Heart Rate 1: 73 bpm Height: 5'6" SpO2: 97% Weight: 168 lbs 8 oz 08/05/2017 Blood Pressure 1: 152/78 Code: 8480-6 BMI: 27.1 Code: 04078-0 Heart Rate 1: 73 bpm Height: 5'6" SpO2: 98% Weight: 168 lbs 07/06/2017 Blood Pressure 1: 148/70 Code: 8480-6 BMI: 26.6 Code: 65464-3 Heart Rate 1: 80 bpm Height: 5'6" SpO2: 97% Weight: 165 lbs 06/18/2017 Blood Pressure 1: 132/68 Code: 8480-6 BMI: 26.8 Code: 55394-7 Heart Rate 1: 84 bpm Height: 5'6" [...] 1: 162/84 Code: 8480-6 BMI: 28.1 Code: 41377-4 Heart Rate 1: 98 bpm Height: 5'6" SpO2: 97% Weight: 174 lbs 03/03/2017 Blood Pressure 1: 154/88 Code: 8480-6 Heart Rate 1: 96 bpm Height: SpO2: 95% Weight: 01/05/2017 Blood Pressure 1: 142/78 Code: 8480-6 BMI: 28.9 Code: 82617-3 Heart Rate 1: 94 bpm Height: 5'6" SpO2: 95% Weight: 179 lbs 12/19/2016 Blood Pressure 1: 130/74 Code: 8480-6 Heart Rate 1: 91 bpm Height: 5'6" SpO2: 97% Weight: 11/13/2016 Blood Pressure 1: 152/82 Code: 8480-6 BMI: 28.4 Code: 93350-7 Heart Rate 1: 85 bpm Height: 5'6" SpO2: 96% Weight: 176 lbs 10/16/2016 Blood Pressure 1: 148/72 Code: 8480-6 BMI: 28.4 Code: 07369-7 Heart Rate 1: 90 bpm Height: 5'6" SpO2: 96% Weight: 176 lbs 10/06/2016 Blood Pressure 1: 150/80 Code: 8480-6 BMI: 28.4 Code: 56410-3 Heart Rate 1: 76 bpm Height: 5'6" SpO2: 97% Weight: 176 lbs 07/02/2016 Blood Pressure 1: 142/78 Code: 8480-6 BMI: 27.8 Code: 08580-4 Heart Rate 1: 85 bpm Height: 5'6" SpO2: 97% Weight: 172 lbs 05/21/2016 Blood Pressure 1: 166/80 Code: 8480-6 BMI: 27.9 Code: 47910-3 Heart Rate 1: 79 bpm Height: 5'6" SpO2: 98% Weight: 173 lbs 05/07/2016 Blood Pressure 1: 140/70 Code: 8480-6 BMI: 27.9 Code: 74071-1 Heart Rate 1: 82 bpm Height: 5'6" SpO2: 96% Weight: 173 lbs 04/28/2016 Blood Pressure 1: 128/86 Code: 8480-6 BMI: 27.4 Code: 53376-8 Heart Rate 1: 86 bpm Height: 5'6" SpO2: 96% Temperature: 36.1 (C) / 97.0 (F) Weight: 170 lbs 04/07/2016 Blood Pressure 1: 150/80 Code: 8480-6 Heart Rate 1: 94 bpm Height: SpO2: 95% Weight: 04/03/2016 Blood Pressure 1: 122/76 Code: 8480-6 BMI: 27.4 Code: 18603-8 Heart Rate 1: 84 bpm Height: 5'6" SpO2: 94% Weight: 170 lbs 01/31/2016 Blood Pressure 1: 124/82 Code: 8480-6 BMI: 27.8 Code: 72774-2 Heart Rate 1: 100 bpm Height: 5'6" SpO2: 97% Weight: 172 lbs 11/29/2015 Blood Pressure 1: 140/82 Code: 8480-6 Blood Pressure 1: 130/84 Code: 8480-6 BMI: 27.4 Code: 92691-3 Heart Rate 1: 97 bpm Height: 5'6" SpO2: 95% Weight: 170 lbs 10/01/2015 Blood Pressure 1: 130/80 Code: 8480-6 BMI: 27.4 Code: 56952-0 Heart Rate 1: 82 bpm Height: 5'6" SpO2: 97% Weight: 170 lbs 08/30/2015 Blood Pressure 1: 120/68 Code: 8480-6 BMI: 27.6 Code: 66714-0 Heart Rate 1: 91 bpm Height: 5'6" SpO2: 96% Weight: 171 lbs 07/31/2015 Blood Pressure 1: 180/80 Code: 8480-6 BMI: 27.4 Code: 24139-8 Heart Rate 1: 60 bpm Height: 5'6" SpO2: 94% Weight: 170 lbs 07/03/2015 Blood Pressure 1: 154/80 Code: 8480-6 BMI: 27.4 Code: 68364-3 Heart Rate 1: 98 bpm Height: 5'6" SpO2: 95% Weight: 170 lbs 04/10/2015 Blood Pressure 1: 138/72 Code: 8480-6 BMI: 27.8 Code: 16130-3 Heart Rate 1: 82 bpm Height: 5'6" SpO2: 98% Weight: 172 lbs 01/11/2015 Blood Pressure 1: 132/74 Code: 8480-6 BMI: 28.6 Code: 32099-4 Heart Rate 1: 88 bpm Height: 5'6" SpO2: 96% Weight: 177 lbs Functional Status No Functional Status data History of Present Illness Symptom Name Status Result Effective Date Notes Location diffusely 07/20/2018 None Quality aching 07/20/2018 [...] data Encounters Encounter Performer Location Codes Date ([id number]) 86758 EST. PATIENT, LEVEL III Diagnosis: Atrophy of thyroid (acquired)[ICD10: E03.4] Diagnosis: Essential (primary) hypertension[ICD10: I10] [facility] CPT-4: 40000 07/20/2018 ([id number]) 69821 EST. PATIENT, LEVEL IV Diagnosis: Essential (primary) hypertension[ICD10: I10] Diagnosis: Atrophy of thyroid (acquired)[ICD10: E03.4] Diagnosis: Other fatigue[ICD10: R53.83] Diagnosis: Other insomnia[ICD10: G47.09] [facility] CPT-4: 39811 06/29/2018 ([id number]) 97014 EST. PATIENT, LEVEL IV Diagnosis: Localized edema[ICD10: R60.0] Diagnosis: Muscle weakness (generalized)[ICD10: M62.81] Diagnosis: Dysuria[ICD10: R30.0] Diagnosis: terminal system operator (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 of anticoagulants[ICD10: Z79.01] Diagnosis: Essential (primary) hypertension[ICD10: I10] Mimi Anaya MD, [facility] CPT-4: 51935 05/24/2018 ([id number]) 38451 EST. PATIENT, LEVEL III Diagnosis: Lumbago with sciatica, right side[ICD10: M54.41] Diagnosis: Sciatica, right side[ICD10: M54.31] Carleen Anaya MD, [facility] CPT- 4: 94854 04/06/2018 ([id number]) 23050 EST. PATIENT, LEVEL III Diagnosis: Lumbago with sciatica, right side[ICD10: M54.41] Diagnosis: Sciatica, right side[ICD10: M54.31] Carleen Anaya MD, [facility] CPT- 4: 29319 03/23/2018 14489 EST. PATIENT, LEVEL III Diagnosis: Low back pain[ICD10: M54.5] Diagnosis: Sacroiliitis, not elsewhere classified[ICD10: M46.1] Wendi Anaya MD, [facility] CPT-4: 51035 03/12/2018 ([id number]) 74605 EST. PATIENT, LEVEL IV Diagnosis: Atrophy of thyroid (acquired)[ICD10: E03.4] Diagnosis: Essential (primary) hypertension[ICD10: I10] Diagnosis: Urge incontinence[ICD10: N39.41] Carleen Anaya MD, [facility] CPT-4: 68665 03/02/2018 ([id number]) 04653 EST. PATIENT, LEVEL III Diagnosis: Cellulitis of face[ICD10: L03.211] Mimi Anaya MD, [facility] CPT- 4: 84649 02/08/2018 ([id number]) 63306 EST. PATIENT, LEVEL IV Diagnosis: Atrophy of thyroid (acquired)[ICD10: E03.4] Diagnosis: Essential (primary) hypertension[ICD10: I10] Diagnosis: Urge incontinence[ICD10: N39.41] Carleen Anaya MD, [facility] CPT-4: 44580 12/03/2017 81360 EST. PATIENT, LEVEL IV Diagnosis: Essential (primary) hypertension[ICD10: I10] Diagnosis: Weakness[ICD10: R53.1] Diagnosis: Low back pain[ICD10: M54.5] Diagnosis: Other allergic rhinitis[ICD10: J30.89] Wendi Anaya MD, [facility] CPT- 4: 53584 10/27/2017 15280 EST. PATIENT, LEVEL IV Diagnosis: Pneumonia due to other specified bacteria[ICD10: J15.8] Diagnosis: Chronic systolic (congestive) heart failure[ICD10: I50.22] Wendi Anaya MD, [facility] CPT-4: 12096 10/12/2017 ([id number]) 43511 EST. PATIENT, LEVEL IV Diagnosis: Atrophy of thyroid (acquired)[ICD10: E03.4] Diagnosis: Nonscarring hair loss, unspecified[ICD10: L65.9] Diagnosis: Essential (primary) hypertension[ICD10: I10] Carleen Anaya MD, [facility] CPT-4: 51673 10/06/2017 ([id number]) 43471 EST. PATIENT, LEVEL IV Diagnosis: Atrophy of thyroid (acquired)[ICD10: E03.4] Diagnosis: Essential (primary) hypertension[ICD10: I10] Diagnosis: Localized edema[ICD10: R60.0] Carleen Anaya MD, [facility] CPT-4: 74271 08/05/2017 ([id number]) 16621 EST. PATIENT, LEVEL IV Diagnosis: Essential (primary) hypertension[ICD10: I10] Diagnosis: Weakness[ICD10: R53.1] Diagnosis: Other fecal abnormalities[ICD10: R19.5] Carleen Anaya MD, [facility] CPT-4: 90799 07/06/2017 ([id number]) 95084 EST. 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 PATIENT, LEVEL IV Diagnosis: Pain in right shoulder[ICD10: M25.511] Diagnosis: Weakness[ICD10: R53.1] Diagnosis: Other fatigue[ICD10: R53.83] Diagnosis: Other malaise[ICD10: R53.81] Wendi Anaya MD, [facility] CPT-4: 74192 05/11/2017 ([id number]) Miscellaneous no charge Diagnosis: Essential (primary) hypertension[ICD10: I10] Mimi Anaya MD, [facility] CPT-4: 41937 04/30/2017 ([id number]) 15084 EST. PATIENT, LEVEL III Diagnosis: Acute recurrent maxillary sinusitis[ICD10: J01.01] Diagnosis: Urinary tract infection, site not specified[ICD10: N39.0] Mimi Anaya MD, [facility] CPT-4: 70904 04/27/2017 ([id number]) 61493 EST. PATIENT, LEVEL IV Diagnosis: Atrophy of thyroid (acquired)[ICD10: E03.4] Diagnosis: Essential (primary) hypertension[ICD10: I10] Diagnosis: Iron deficiency[ICD10: E61.1] Diagnosis: Other specified heart block[ICD10: I45.5] Carleen Anaya MD, [facility] CPT-4: 81850 04/08/2017 51014 EST. PATIENT, LEVEL III Diagnosis: Low back pain[ICD10: M54.5] Diagnosis: Sacroiliitis, not elsewhere classified[ICD10: M46.1] Wendi Anaya MD, [facility] CPT-4: 50363 03/03/2017 ([id number]) 12369 EST. PATIENT, LEVEL IV Diagnosis: Essential (primary) hypertension[ICD10: I10] Diagnosis: Atrophy of thyroid (acquired)[ICD10: E03.4] Diagnosis: Vascular dementia without behavioral disturbance[ICD10: F01.50] Carleen Anaya MD, [facility] CPT-4: 05484 01/05/2017 70666 EST. PATIENT, LEVEL III Diagnosis: Cervicalgia[ICD10: M54.2] Diagnosis: Other muscle spasm[ICD10: M62.838] Wendi Anaya MD [facility] CPT-4: 04188 12/19/2016 ([id number]) 36429 EST. PATIENT, LEVEL III Diagnosis: Essential (primary) hypertension[ICD10: I10] Diagnosis: Gastro-esophageal reflux disease without esophagitis[ICD10: K21.9] Carleen Anaya MD [facility] CPT-4: 40579 11/13/2016 ([id number]) 34108 EST. PATIENT, LEVEL III Diagnosis: Pain in right shoulder[ICD10: M25.511] Diagnosis: Insomnia due to medical condition[ICD10: G47.01] Carleen Anaya MD [facility] CPT-4: 77750 10/16/2016 ([id number]) 35019 EST. PATIENT, LEVEL IV Diagnosis: Pneumonia due to other specified bacteria[ICD10: J15.8] Diagnosis: Pain in right shoulder[ICD10: M25.511] Diagnosis: Cough[ICD10: R05] Carleen Anaya MD [facility] CPT-4: 96897 10/06/2016 ([id number]) 03691 EST. PATIENT, LEVEL IV Diagnosis: Essential (primary) hypertension[ICD10: I10] Diagnosis: Personal history of other specified conditions[ICD10: Z87.898] Diagnosis: Unsteadiness on feet[ICD10: R26.81] Carleen Anaya MD [facility] CPT- 4: 79620 07/02/2016 ([id number]) 61181 EST. PATIENT, LEVEL IV Diagnosis: Dysphagia, pharyngeal phase[ICD10: R13.13] Diagnosis: Urge incontinence[ICD10: N39.41] Diagnosis: Gastro-esophageal reflux disease without esophagitis[ICD10: K21.9] Carleen Anaya MD [facility] CPT-4: 36002 05/21/2016 ([id number]) 91991 EST. PATIENT, LEVEL III Diagnosis: Gastro-esophageal reflux disease without esophagitis[ICD10: K21.9] Carleen Anaya MD [facility] CPT-4: 26327 05/07/2016 ([id number]) 63230 EST. PATIENT, LEVEL III Diagnosis: Acute laryngopharyngitis[ICD10: J06.0] Diagnosis: Dysphagia, pharyngeal phase[ICD10: R13.13] Diagnosis: Allergic rhinitis due to pollen[ICD10: J30.1] Mimi Anaya MD, [facility] CPT-4: 06741 04/28/2016 ([id number]) Miscellaneous no charge Diagnosis: Acute laryngopharyngitis[ICD10: J06.0] Wendi Anaya MD, [facility] CPT- 4: 09456 04/10/2016 04643 EST. PATIENT, LEVEL IV Diagnosis: Cervicalgia[ICD10: M54.2] Diagnosis: Acute laryngopharyngitis[ICD10: J06.0] Diagnosis: care home (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 of anticoagulants[ICD10: Z79.01] Diagnosis: Other cystitis without hematuria[ICD10: N30.80] Wendi Anaya MD, [facility] CPT-4: 62403 04/07/2016 ([id number]) 47561 EST. PATIENT, LEVEL IV Diagnosis: Essential (primary) hypertension[ICD10: I10] Diagnosis: Hypothyroidism, unspecified[ICD10: E03.9] Diagnosis: Other fatigue[ICD10: R53.83] Diagnosis: Urge incontinence[ICD10: N39.41] Mimi Anaya MD, [facility] CPT- 4: 26219 04/03/2016 ([id number]) 10189 EST. PATIENT, LEVEL IV Diagnosis: Essential (primary) hypertension[ICD10: I10] Diagnosis: Pain in right ankle and joints of right foot[ICD10: M25.571] Diagnosis: Dizziness and giddiness[ICD10: R42] Diagnosis: Tinnitus, bilateral[ICD10: H93.13] Mimi Anaya MD, [facility] CPT- 4: 27180 01/31/2016 ([id number]) 25871 EST. PATIENT, LEVEL IV Diagnosis: Essential (primary) hypertension[ICD10: I10] Diagnosis: Otalgia, right ear[ICD10: H92.01] Diagnosis: Allergic rhinitis due to pollen[ICD10: J30.1] Diagnosis: Hypothyroidism, unspecified[ICD10: E03.9] Mimi Anaya MD, [facility] CPT-4: 43757 11/29/2015 ([id number]) 91443 EST. PATIENT, LEVEL IV Diagnosis: Essential (primary) hypertension[ICD10: I10] Diagnosis: Urge incontinence[ICD10: N39.41] Diagnosis: Unspecified dementia without behavioral disturbance[ICD10: F03.90] Mimi Anaya MD, [facility] CPT-4: 53051 10/01/2015 ([id number]) 98769 EST. PATIENT, LEVEL IV Diagnosis: Essential (primary) hypertension[ICD10: I10] Diagnosis: Hypothyroidism, unspecified[ICD10: E03.9] Diagnosis: Unspecified dementia without behavioral disturbance[ICD10: F03.90] Diagnosis: Urge incontinence[ICD10: N39.41] Mimi Anaya MD, [facility] CPT- 4: 66458 08/30/2015 ([id number]) 94854 EST. PATIENT, LEVEL IV Diagnosis: Essential (primary) hypertension[ICD10: I10] Diagnosis: Hypothyroidism, unspecified[ICD10: E03.9] Diagnosis: Hyperlipidemia, unspecified[ICD10: E78.5] Carleen Anaya MD, [facility] CPT-4: 01874 07/31/2015 ([id number]) 96154 EST. PATIENT, LEVEL IV Diagnosis: Essential (primary) hypertension[ICD10: I10] Diagnosis: care home (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 of anticoagulants[ICD10: Z79.01] Diagnosis: Dizziness and giddiness[ICD10: R42] Carleen Anaya MD, [facility] CPT- 4: 40068 07/03/2015 ([id number]) 83148 EST. PATIENT, LEVEL IV Diagnosis: ESSENTIAL HYPERTENSION[ICD9: 401.9] Diagnosis: MACULAR DEGENERATION[ICD9: 362.50] Diagnosis: Peripheral vascular disease[ICD9: 443.9] Diagnosis: Neuropathy[ICD9: 355.9] Carleen Anaya MD, [facility] CPT-4: 71348 04/10/2015 ([id number]) OFFICE/OUTPATIENT VISIT NEW Diagnosis: ESSENTIAL HYPERTENSION[ICD9: 401.9] Diagnosis: HYPOTHYROIDISM[ICD9: 244.9] Diagnosis: URGE INCONTINENCE[ICD9: 788.31] Diagnosis: Constipation - functional[ICD9: 564.09] [facility] CPT-4: 08843 01/11/2015 Plan of Care Planned Activity Notes Codes Status Date Visit Plan: Hypothyroidism - pt with chronic [...] at home. 07/20/2018 Appointment: [facility] ([facility]) Moderate 07/20/2018 Patient Education: [...] this time. 06/29/2018 Appointment: [facility] (15 min) Moderate 06/29/2018 Patient Education: [...] care surrogate. 06/08/2018 Appointment: Mimi Espinosa WPtel: [address] [place] [address] - Annual Wellness Visit 06/08/2018 Patient Education: [...] edema. Weakness-fatigue- check labs Dysuria- check UA [id number] changes in medications 05/24/2018 Appointment: Mimi Espinosa WPtel: [address] [place] [address] (15 min) Moderate 05/24/2018 Patient Education: Patient Medication Summary Completed 05/24/2018 Appointment: Injection 05/20/2018 Patient Education: Patient Medication Summary Completed 05/20/2018 Visit Plan: Sciatica- pt to continue with aleve twice daily and cyclobenzaprine x 1 week. Pt is to call if the symptoms do not improve or if they worsen. referral to [facility] physical therapy. 04/06/2018 Appointment: Carleen Anaya WPtel: [facility] (15 min) Moderate 04/06/2018 Patient Education: Patient [...] do not improve or if they worsen. [id number] - andrew 03/23/2018 Appointment: Carleen Anaya WPtel: [phone] [facility] (15 min) Moderate 03/23/2018 Patient Education: [...] injection. 03/12/2018 Appointment: Wendi Uriostegui WPtel: [address] [facility] (30 min) Complex 03/12/2018 Patient Education: Patient [...] discharge. 02/08/2018 Appointment: Mimi Espinosa WPtel: [phone] [phone] (15 min) Moderate 02/08/2018 Patient Education: Patient [...] 50mg daily. 12/03/2017 Appointment: Carleen Anaya WPtel: [facility] (15 [...] spray. 10/27/2017 [facility]ment[phone] ([facility] Moderate 10/27/2017 Patient Education: Patient Medication Summary Completed 10/27/2017 Visit Plan: Pneumonia - Pt has been diagnosed with pneumonia by physical exam. A chest xray has been ordered as have antibiotics. The pt is aware of the diagnosis and the need for acute treatment of this illness. 10/12/2017 Appointment: [phone] ([facility] min) Moderate 10/12/2017 Patient Education: Patient [...] today. 10/06/2017 App[facility]ment[id number] [place] (15 min) Moderate 10/06/2017 Patient [...] and prn. 08/05/2017 Appointment: Carleen Anaya WPtel: [id number] (15 min) Moderate 08/05/2017 Patient Education: Patient Medication Summary Completed 08/05/2017 Appointment: Carleen Anaya WPtel: [id number] (15 min) Moderate 07/14/2017 Visit Plan: Hypertension [...] voltaren gel. 07/06/2017 Appointment: Carleen Anaya WPtel: [address] [place], [place] [id number] (15 min) Moderate 07/06/2017 Patient Education: Patient [...] shot today 06/18/2017 Appointment: Carleen Anaya WPtel: [id number] (15 min) Moderate 06/18/2017 Patient Education: Patient Medication Summary Completed 06/18/2017 Appointment: Nurse Visit 05/12/2017 Care Plan: X-RAY EXAM OF SHOULDER LOINC : 17350-9 Pending 05/12/2017 Visit Plan: Weakness, fatigue, malaise - Discussed with Dr. Héctor - pt sent for IV fluids, will check labs and UA - will treat as indicated - pt is to keep her appointment with her microchip specialist for her ECHO and Carotid US. Pt is to follow up with her oncologist. Right shoulder pain after fall - will send for X-ray - The pt is to use prn antiinflammatories to manage acute pain. The patient is to call the office if the pain is worsening or does not improve. 05/11/2017 Appointment: Wendi [phone] [place] (30 min) Complex 05/11/2017 Patient Education: [...] plan. 04/27/2017 Appointment: M[facility] E[phone] [place] (15 min) Moderate 04/27/2017 Patient Education: [...] heart beat - recommended evaluation by her Food Mixer Repairer - Dr. Butler - I attempted a phone call to the office of Dr. Butler, I had to leave a message on the answering machine. If i don't hear back from Dr. Butler's office, we will need to do a Holter monitor on patient. 04/08/2017 Appointment: [phone] (15 min) Moderate 04/08/2017 Patient Education: Patient Medication Summary Completed 04/08/2017 Care Plan: Referral Order SNOMED-CT : [id number] Pending 04/08/2017 Visit Plan: UTI - pt [...] 03/03/2017 Appointment: Wendi Uriostegui [phone] [facility] (30 min) Complex 03/03/2017 Patient [...] of control. 01/05/2017 Appointment: Carleen Anaya WPtel: [address] [place], [place] [phone] (15 min) Moderate 01/05/2017 Patient Education: Patient Medication Summary Completed 01/05/2017 Visit Plan: Neck Pain- pt to start with aspercreme or biofreeze to neck three times daily and start neck exercises daily. Will send RX - The patient is to call the office if the pain is worsening or does not improve. 12/19/2016 Appointment: Wendi Uriostegui WPtel: [facility] (30 min) Complex 12/19/2016 Patient Education: [...] not improving. 11/13/2016 Appointment: Carleen Anaya WPtel: [facility]5 [facility] (15 min) Moderate 11/13/2016 Patient Education: Patient Medication Summary Completed 11/13/2016 Visit Plan: Insomnia -extended release melatonin - you can take up to 10mg of melatonin sleepy time tea - - use warm milk in the tea. Right shoulder - pt to continue with therapy, anti-inflammatory 10/16/2016 Appointment: Carleen Anaya WPtel: [facility] (15 [...] pt. 10/06/2016 Appointment: [phone] (15 min) Moderate 10/06/2016 Patient Education: Patient Medication Summary Completed 10/06/2016 Care Plan: X-RAY EXAM OF SHOULDER LOINC : 58029-6 Pending 10/06/2016 App[facility]ment: [phone] ([facility] min) Complex 10/01/2016 [phone] Patient informed. Completed 07/08/2016 Visit Plan: Hypertension [...] discussed therapy. 07/02/2016 Appointment: Carleen Anaya WPtel: [facility] (15 min) Moderate 07/02/2016 Patient Education: Patient Medication Summary Completed 07/02/2016 Care Plan: Referral Order SNOMED-CT : [id number] Pending 07/02/2016 Visit Plan: Hypertension - well [...] planning on getting a flu shot at [facility] and she is due for another pneumovax- last pneumovax was in 2008 - so she can have pneumovax now and the prevnar in 2017 05/21/2016 Appointment: Carleen Anaya WPtel: [address] [place] [address] (15 min) Moderate 05/21/2016 Patient Education: Patient Medication Summary Completed 05/21/2016 Referral: Medardo Del Real [address] Referral Completed 05/12/2016 Visit Plan: Esophageal [...] times daily 05/07/2016 Appointment: Carleen Anaya WPtel: [address] [place] [address] (15 min) Moderate 05/07/2016 Patient Education: Patient Medication Summary Completed 05/07/2016 Appointment: Mimi Espinosa WPtel: [address] [place], [place] [phone] (30 min) Complex 05/01/2016 Visit Plan: Allergies [...] Kenalog injection today in the office Sore ahmoul-rypimtfdn-dlygl dexilant-refer to Dr Del Real for evaluation 04/28/2016 Appointment: Mimi Espinosa WPtel: [address] [place], [place] [phone] (30 min) Complex 04/28/2016 Patient Education: Patient [...] switched. 04/07/2016 Appointment: Wendi Uriostegui [facility]Ptel[phone] [facility] (30 min) Complex 04/07/2016 Patient Education: Patient [...] atigue-check labs including UA-culture if positive Urge mjtjgxnouruw-aqsccvdjn-onbgb UA with C&S 04/03/2016 Appointment: Mimi Espinosa WPtel: [phone] [phone] (30 min) Complex 04/03/2016 Patient Education: Patient Medication Summary Completed 04/03/2016 Visit Plan: Hypertension - well controlled - continue with current medications, continue with no added salt diet. Pt has been encouraged to exercise daily. The pt has been advised to call the office if there are any acute concerns about change in blood pressure readings at home. Fgxsonkjr-qmajlodi-xyvocmjf MRI brain Right ankle yvrp-dqlwrtu-xwnm right ankle- plan to refer to physical therapy if appropriate 01/31/2016 Appointment: Mimi Espinosa WPtel: [phone] [phone] (30 min) Complex 01/31/2016 Patient Education: Patient [...] medications. 07/31/2015 Appointment: [facility]el[phone] (15 min) Moderate 07/31/2015 Patient Education: Patient Medication Summary Completed 07/31/2015 Patient Education: Hypertension Completed 07/31/2015 Care Plan: Referral Order SNOMED-CT : [id number] Ordered 07/31/2015 Visit Plan: Hypertension - uncontrolled [...] Nortryptyline 07/03/2015 Appointment: Carleen [facility]el[phone] (15 min) Moderate 07/03/2015 Patient Education: [...] Completed 01/11/2015 Ref[facility]: [phone] [facility] [place] Referral Appointment Requested Referral: External, Ordering Provider Referral Appointment Requested Referral: External, Ordering Provider Referral Relationship [facility] Referral Appointment Requested Instructions Comment . [...] change in blood pressure readings at home. extended release melatonin - you can take [...] Kenalog injection today in the office Sore jmejdg-htpxfhjug-mdsyo dexilant-refer to Dr Del Real for evaluation [...] occurs at the site of injection. . Neck Pain- pt to start with [...] UTI - culture back, medication switched. . Weakness, fatigue - UA negative - [...] heart beat - recommended evaluation by her Food Mixer Repairer - Dr. Butler - I attempted a [...] voltaren gel Gait unsteadiness - discussed therapy. Power Pudding: equal parts of prune juice, [...] planning on getting a flu shot at [facility] and she is due for another pneumovax- last pneumovax was in 2008 - so she can have pneumovax now and the prevnar in 2017 repeat INR in 2 weeks repeat a [...] Fatigue-check labs including UA-culture if positive Urge jfpgkiyuebvb-rswdsqeda-sybdi UA with C&S . Pneumonia - Pt has been diagnosed [...] edema. Weakness-fatigue- check labs Dysuria- check UA FRT-lxtqepzhrk-mt changes in medications . UTI - pt with positive urinalysis - culture sent if appropriate. Antibiotic electronically prescribed to pt's pharmacy of choice. Pt to call if symptoms do not improve. . Hypertension - well controlled - continue with current medications, continue with no added salt diet. Pt has been encouraged to exercise daily. The pt has been advised to call the office if there are any acute concerns about change in blood pressure readings at home. Tftyiynyh-wceqtrrn-adsscvzh MRI brain Right ankle epsg-ighpbpm-hlvk right ankle-plan to refer to physical therapy if appropriate . Cellulitis - start oral antibiotics as [...] improve or if they worsen. referral to [facility] physical therapy. . Hypertension - well [...] months based on previous levels of control. MYRBETRIQ-SAMPLES 1 DAILY . Hypertension - well [...] loss-doing well with namenda-continue 10mg twice daily . Hypertension - well controlled - [...] office if the symptoms are not improving. Flonase 1 spray each nare daily . [...] assure normal liver response to medications. . Sciatica- pt to start on aleve twice daily and cyclobenzaprine x 1 week. Pt is to call if the symptoms do not improve or if they worsen. . Sciatica- pt to start on aleve twice daily and cyclobenzaprine x 1 week. Pt is to call if the symptoms do not improve or if they worsen. [id number] - kenalog Stop Oxybutynin chloride ER. Start [...] is to keep her appointment with her microchip specialist for her ECHO and Carotid US. [...]
--- OUTSIDE RECORDS SUMMARY | 2019-01-01 12:29 | XMS REPORT | CCD ---
Author Author [facility] Organization [facility] Address [address] [place] [address] Phone Care Team Providers Care Resident Care Manager Rn Name Role Phone PP Unavailable CCM Unavailable Summary Purpose Interface Exchange Insurance Providers Payer name Policy type / Coverage type Covered alliance party ID Effective Begin Date Effective End Date WPS Medicare Part B Medicare Part B [id number] Unknown Unknown [facility] Medicare Part B [id number] Unknown Unknown Family history Father Diagnosis Age At Onset Cancer Unknown Arthritis Unknown Mother Diagnosis Age At Onset Breast cancer Unknown Arthritis Unknown Social History Social History Element Codes Description Effective Dates Alcohol history Unknown occasionally drinks alcohol 06/08/2018 Frequency of drinks SNOMED CT: 522284792 Drinks rarely 06/08/2018 Marital status Unknown 01/11/2015 Number of children Unknown 3 01/11/2015 Employment Unknown Retired 01/11/[address]: 5594860 Quit over 10 years ago 1950 01/11/[address]: 787373480 Never drinks alcohol 01/11/2015 Allergies, Adverse Reactions, Alerts Substance Reaction Codes Entered Date Inactivated Date Status * OTHER REACTION - SEE ANSWER BOX vancogein red Unknown 01/11/2015 No Inactive Date Active CODEINE RxNorm: 2670 01/11/2015 No Inactive Date Active demerol RxNorm: 243024 08/30/2015 No Inactive Date Active hydrocodone Unknown [...] Start Date Stop Date Status Fill Instructions Myrbetriq 50 mg tablet,extended release RxNorm: 1377949 1 Tablet(s) PO daily 08/24/2018 12/21/2018 Active Synthroid 175 mcg tablet RxNorm: 313384 1 Tablet(s) PO 4 times a week Thu sun 07/20/2018 12/16/2018 Active alternate with 175mcg order Synthroid 200 mcg tablet RxNorm: 310895 Tablet(s) TAKE ONE TABLET BY MOUTH ON THURSDAY, Thursday07/20/2018 No Stop Date Active pantoprazole 40 mg tablet,delayed release RxNorm: 018773 TAKE ONE TABLET BY MOUTH TWICE DAILY 07/19/2018 No Stop Date Active furosemide 40 mg tablet RxNorm: 176440 1 Tablet(s) PO 2 times weekly with song roberto per dr butler 07/13/2018 No Stop Date Active Synthroid 200 mcg tablet RxNorm: 687994 TAKE ONE TABLET BY MOUTH ON THURSDAY, THURSDAY, AND Thursday07/13/2018 07/19/2018 Inactive Vitamin D3 400 unit capsule RxNorm: 525508 1 Capsule(s) PO daily 06/17/2018 No Stop Date Active Aspirin Low Dose 81 mg tablet,delayed release RxNorm: 478808 1 Tablet(s) PO BIW on Thursday and Thursday06/17/2018 No Stop Date Active biotin 1,000 mcg chewable tablet RxNorm: 9822146 1 Tablet(s) PO daily 06/17/2018 No Stop Date Active Vitamin B-12 500 mcg tablet RxNorm: 628096 1 Tablet(s) PO daily 06/17/2018 No Stop Date Active Colace 100 mg capsule RxNorm: 7240132 1 Capsule(s) PO QHS 06/08/2018 No Stop Date Active Coumadin 3 mg tablet RxNorm: 841029 1 Tablet(s) PO daily x5 days and 2 mg x2 days -Managed by Dr. Bowman 06/08/2018 No Stop Date Active Keflex 500 mg capsule RxNorm: 193418 1 Capsule(s) PO TID 05/25/2018 05/31/2018 Inactive metoprolol succinate ER 100 mg tablet,extended release 24 hr RxNorm: 757331 Tablet(s) TAKE ONE TABLET BY MOUTH ONCE DAILY 05/19/2018 No Stop Date Active Coumadin 3 mg tablet RxNorm: 858353 1 Tablet(s) PO daily -Managed by Dr. Bowman 05/04/2018 06/07/2018 Inactive Synthroid 175 mcg tablet RxNorm: 733465 TAKE 1 TABLET BY MOUTH ONCE DAILY 04/06/2018 06/07/2018 Inactive cyclobenzaprine 5 mg tablet RxNorm: 376170 1/2 Tablet(s) PO TID 04/06/2018 04/15/2018 Inactive Synthroid 200 mcg tablet RxNorm: 134980 1 Tablet(s) PO TIW [facility] 04/05/2018 07/12/2018 Inactive brand name only- Alternate with 175mcg dose schedule Synthroid 175 mcg tablet RxNorm: 364903 1 Tablet(s) PO 4 times a week Thu04/05/2018 07/19/2018 Inactive alternate with 175mcg order cyclobenzaprine 5 mg tablet RxNorm: 740759 1/2 Tablet(s) PO TID 03/23/2018 04/01/2018 Inactive tramadol 50 mg tablet RxNorm: 668367 1 Tablet(s) PO TID as needed 03/17/2018 No Stop Date Active Kenalog 40 mg/mL suspension for injection RxNorm: 2708933 2 Milliliter(s) Inj 03/12/2018 03/12/2018 Inactive prednisone 20 mg tablet RxNorm: 758514 2 Tablet(s) PO daily 03/11/2018 03/10/2018 Inactive prednisone 20 mg tablet RxNorm: 204874 2 Tablet(s) PO daily 03/11/2018 03/15/2018 Inactive losartan 25 mg tablet RxNorm: 270520 TAKE ONE TABLET BY MOUTH ONCE DAILY 02/16/2018 No Stop Date Active doxycycline hyclate 100 mg tablet RxNorm: 5184428 1 Tablet(s) PO BID 02/08/2018 02/14/2018 Inactive ceftriaxone 500 mg solution for injection RxNorm: 4569851 Inj 02/08/2018 02/08/2018 Inactive dapsone 25 mg tablet RxNorm: 356850 2 Tablet(s) PO daily 02/08/2018 02/12/2018 Inactive metoprolol succinate ER 100 mg tablet,extended release 24 hr RxNorm: 330554 TAKE ONE TABLET BY MOUTH ONCE DAILY 01/05/2018 05/18/2018 Inactive Synthroid 175 mcg tablet RxNorm: 678006 1 Tablet(s) PO daily 01/01/2018 03/31/2018 Inactive Synthroid 175 mcg tablet RxNorm: 713244 1 Tablet(s) PO daily 01/01/2018 12/31/2017 Inactive Myrbetriq 50 mg tablet,extended release RxNorm: 1917005 1 Tablet(s) PO daily 12/03/2017 01/01/2018 Inactive Zithromax Z-Oliver 250 mg tablet RxNorm: 264847 1 Tablet(s) PO UD 10/12/2017 10/16/2017 Inactive Tessalon Perles 100 mg capsule RxNorm: 676147 2 Capsule(s) PO TID as needed 10/12/2017 10/16/2017 Inactive prednisone 20 mg tablet RxNorm: 832031 2 Tablet(s) PO daily 10/12/2017 10/16/2017 Inactive cefdinir 300 mg capsule RxNorm: 477580 1 Capsule(s) PO BID 10/08/2017 10/07/2017 Inactive Synthroid 150 mcg tablet RxNorm: 242411 1 Tablet(s) PO daily in morning, except 1/2 Tablet PO Thu, Thu, take 30 minutes before meal 10/08/2017 04/04/2018 Inactive brand name only cefdinir 300 mg capsule RxNorm: 533780 1 Capsule(s) PO BID 10/08/2017 10/14/2017 Inactive Synthroid 150 mcg tablet RxNorm: 789510 1 Tablet(s) PO daily in morning, take 30 minutes before meal 10/06/2017 10/07/2017 Inactive brand name only cefdinir 300 mg capsule RxNorm: 704803 1 Capsule(s) PO BID 08/24/2017 08/30/2017 Inactive Zithromax Z-Oliver 250 mg tablet RxNorm: 530050 1 Tablet(s) PO UD 08/20/2017 08/19/2017 Inactive Zithromax Z-Oliver 250 mg tablet RxNorm: 513336 1 Tablet(s) PO UD 08/20/2017 08/24/2017 Inactive Synthroid 150 mcg tablet RxNorm: 024391 1 Tablet(s) PO daily in morning, take 30 minutes before meal 08/05/2017 08/04/2017 Inactive Synthroid 150 mcg tablet RxNorm: 586013 1 Tablet(s) PO daily in morning, take 30 minutes before meal 08/05/2017 10/05/2017 Inactive Coumadin 3 mg tablet RxNorm: 791721 1 Tablet(s) PO Thursday, , , and Thu- Managed by Dr. Bowman -Managed by Dr. Bowman 08/05/2017 05/03/2018 Inactive pantoprazole 40 mg tablet,delayed release RxNorm: 915723 1 Tablet(s) PO BID 07/08/2017 07/02/2018 Inactive pantoprazole 40 mg tablet,delayed release RxNorm: 832198 1 Tablet(s) PO BID 07/08/2017 07/07/2017 Inactive metoprolol succinate ER 100 mg tablet,extended release 24 hr RxNorm: 314527 TAKE ONE TABLET BY MOUTH ONCE DAILY 07/08/2017 01/04/2018 Inactive Coumadin 3 mg tablet RxNorm: 141836 1 Tablet(s) PO QPM -Managed by Dr. Bowman 07/06/2017 08/04/2017 Inactive Coumadin 3 mg tablet RxNorm: 613550 1 Tablet(s) PO QPM at 6:00pm Managed by Dr Bowman 1/2 pill on thursday and thursday, full pill other days 06/18/2017 07/05/2017 Inactive Voltaren 1 % topical gel RxNorm: 153728 2 TOP QID 06/18/2017 10/15/2017 Inactive Micro-K 10 10 mEq capsule,extended release RxNorm: 133136 1 Capsule(s) PO daily 05/08/2017 12/02/2017 Inactive Synthroid 137 mcg tablet RxNorm: 116572 1 Tablet(s) PO QAM 05/08/2017 08/04/2017 Inactive Dose increased 04/14/17 pravastatin 10 mg tablet RxNorm: 913153 1 Tablet(s) PO daily TAKE ONE TABLET BY MOUTH ONCE DAILY 05/08/2017 12/02/2017 Inactive losartan 25 mg tablet RxNorm: 118302 1 Tablet(s) PO daily TAKE ONE TABLET BY MOUTH ONCE DAILY 05/08/2017 06/07/2018 Inactive Namenda 10 mg tablet RxNorm: 919759 TAKE ONE TABLET BY MOUTH TWICE DAILY 05/07/2017 12/02/2017 Inactive Keflex 500 mg capsule RxNorm: 707180 1 Capsule(s) PO TID 04/27/2017 05/03/2017 Inactive Synthroid 137 mcg tablet RxNorm: 756313 1 Tablet(s) PO QAM 04/14/2017 04/13/2017 Inactive Vitamin D2 50,000 unit capsule RxNorm: 276120 1 Capsule(s) PO QW 04/14/2017 12/02/2017 Inactive Synthroid 137 mcg tablet RxNorm: 432366 1 Tablet(s) PO QAM 04/14/2017 05/07/2017 Inactive losartan 25 mg tablet RxNorm: 763388 TAKE ONE TABLET BY MOUTH ONCE DAILY 03/23/2017 05/07/2017 Inactive Synthroid 125 mcg tablet RxNorm: 225944 TAKE ONE TABLET BY MOUTH ONCE DAILY 03/12/2017 04/12/2017 Inactive ciprofloxacin 500 mg tablet RxNorm: 843963 1 Tablet(s) PO BID 2017 03/13/2017 Inactive prednisone 20 mg tablet RxNorm: 570833 2 Tablet(s) PO daily 03/03/2017 03/07/2017 Inactive tramadol 50 mg tablet RxNorm: 763512 1/2 Tablet(s) PO TID as needed 03/03/2017 12/02/2017 Inactive pravastatin 10 mg tablet RxNorm: 381895 TAKE ONE TABLET BY MOUTH ONCE DAILY 01/19/2017 05/07/2017 Inactive nortriptyline 10 mg capsule RxNorm: 036261 TAKE ONE CAPSULE BY MOUTH ONCE DAILY IN THE EVENING 01/14/2017 12/02/2017 Inactive Voltaren 1 % topical gel RxNorm: 327826 TOP QID 12/22/2016 02/19/2017 Inactive Voltaren 1 % topical gel RxNorm: 957928 TOP QID 12/22/2016 12/21/2016 Inactive prednisone 20 mg tablet RxNorm: 624519 2 Tablet(s) PO daily 12/19/2016 12/23/2016 Inactive cyclobenzaprine 5 mg tablet RxNorm: 922105 1/2 Tablet(s) PO BID as needed 12/19/2016 12/23/2016 Inactive Flector 1.3 % transdermal 12 hour patch RxNorm: 256694 1 Patch TOP every 12 hours as needed 12/19/2016 12/02/2017 Inactive losartan 25 mg tablet RxNorm: 912236 1 Tablet(s) PO daily TAKE ONE TABLET BY MOUTH ONCE DAILY 11/13/2016 03/22/2017 Inactive Namenda 10 mg tablet RxNorm: 661158 TAKE ONE TABLET BY MOUTH TWICE DAILY 10/28/2016 04/25/2017 Inactive nortriptyline 10 mg capsule RxNorm: 046469 TAKE ONE CAPSULE BY MOUTH ONCE DAILY IN THE EVENING 10/13/2016 01/10/2017 Inactive ceftriaxone 500 mg solution for injection RxNorm: 8882126 Inj 10/06/2016 10/06/2016 Inactive cefdinir 300 mg capsule RxNorm: 361366 1 Capsule(s) PO BID 10/06/2016 10/12/2016 Inactive prednisone 20 mg tablet RxNorm: 514431 2 Tablet(s) PO daily 10/06/2016 10/08/2016 Inactive ProAir RespiClick 90 mcg/actuation breath activated RxNorm: 3135706 2 INH TID x 3 days then one inhale tid x 3 days then prn shortness of breath 10/06/2016 11/04/2016 Inactive Kenalog 40 mg/mL suspension for injection RxNorm: 8008372 1 Milliliter(s) Inj 10/06/2016 10/06/2016 Inactive Myrbetriq 50 mg tablet,extended release RxNorm: 6861401 1 Tablet(s) PO daily 09/11/2016 11/12/2016 Inactive Namenda 10 mg tablet RxNorm: 849358 TAKE ONE TABLET BY MOUTH TWICE DAILY 07/25/2016 10/22/2016 Inactive hydrochlorothiazide 25 mg tablet RxNorm: 047885 1 Tablet(s) PO daily 07/25/2016 12/02/2017 Inactive Synthroid 125 mcg tablet RxNorm: 308908 TAKE ONE TABLET BY MOUTH ONCE DAILY 07/14/2016 03/10/2017 Inactive losartan 25 mg tablet RxNorm: 541318 TAKE ONE TABLET BY MOUTH ONCE DAILY 07/07/2016 11/12/2016 Inactive metoprolol succinate ER 100 mg tablet,extended release 24 hr RxNorm: 165319 1 Tablet(s) PO daily 06/16/2016 06/10/2017 Inactive nortriptyline 10 mg capsule RxNorm: 989980 Capsule(s) TAKE ONE CAPSULE BY MOUTH ONCE DAILY IN THE EVENING 06/09/2016 10/06/2016 Inactive Myrbetriq 50 mg tablet,extended release RxNorm: 1996054 1 Tablet(s) PO daily 05/21/2016 09/10/2016 Inactive doxycycline hyclate 100 mg tablet RxNorm: 176858 1 Tablet(s) PO BID 05/07/2016 05/13/2016 Inactive Carafate 100 mg/mL oral suspension RxNorm: 091374 10 Milliliter(s) PO QID 05/07/2016 12/02/2017 Inactive Kenalog 40 mg/mL suspension for injection RxNorm: 4325927 Milliliter(s) Inj 04/28/2016 04/28/2016 Inactive losartan 25 mg tablet RxNorm: 854057 TAKE ONE TABLET BY MOUTH ONCE DAILY 04/08/2016 07/06/2016 Inactive ciprofloxacin 500 mg tablet RxNorm: 265281 1 Tablet(s) PO BID 04/07/2016 04/13/2016 Inactive cyclobenzaprine 5 mg tablet RxNorm: 491632 1 Tablet(s) PO TID 04/07/2016 04/16/2016 Inactive Keflex 500 mg capsule RxNorm: 766967 1 Capsule(s) PO TID 04/03/2016 04/02/2016 Inactive Keflex 500 mg capsule RxNorm: 099582 1 Capsule(s) PO TID 04/03/2016 04/09/2016 Inactive losartan 25 mg tablet RxNorm: 961830 TAKE ONE TABLET BY MOUTH ONCE DAILY 03/06/2016 04/07/2016 Inactive nortriptyline 10 mg capsule RxNorm: 620801 TAKE ONE CAPSULE BY MOUTH ONCE DAILY IN THE EVENING 03/06/2016 06/03/2016 Inactive pravastatin 10 mg tablet RxNorm: 338139 TAKE ONE TABLET BY MOUTH ONCE DAILY 02/04/2016 01/18/2017 Inactive warfarin 4 mg tablet RxNorm: 536043 Tablet(s) PO q d except 5mg on tue 01/31/2016 06/17/2017 Inactive Myrbetriq 50 mg tablet,extended release RxNorm: 3740831 1 Tablet(s) PO daily 01/17/2016 05/15/2016 Inactive Namenda 10 mg tablet RxNorm: 029162 1 Tablet(s) PO BID 01/01/2016 06/28/2016 Inactive Myrbetriq 50 mg tablet,extended release RxNorm: 6985085 1 Tablet(s) PO daily 12/20/2015 12/20/2015 Inactive Synthroid 125 mcg tablet RxNorm: 961690 1 Tablet(s) PO daily 11/14/2015 07/10/2016 Inactive nortriptyline 10 mg capsule RxNorm: 104753 TAKE ONE CAPSULE BY MOUTH ONCE DAILY IN THE EVENING 11/05/2015 03/03/2016 Inactive Myrbetriq 50 mg tablet,extended release RxNorm: 5204048 1 Tablet(s) PO daily 10/01/2015 12/19/2015 Inactive Namenda 10 mg tablet RxNorm: 498466 1 Tablet(s) PO BID 08/30/2015 12/31/2015 Inactive Vesicare 10 mg tablet RxNorm: 014400 1 Tablet(s) PO daily 08/30/2015 09/30/2015 Inactive warfarin 4 mg tablet RxNorm: 612512 Tablet(s) PO 08/30/2015 01/30/2016 Inactive Synthroid 125 mcg tablet RxNorm: 976495 1 Tablet(s) PO daily 08/02/2015 11/13/2015 Inactive Synthroid 125 mcg tablet RxNorm: 018569 Tablet(s) PO 08/01/2015 08/01/2015 Inactive losartan 25 mg tablet RxNorm: 144560 1 Tablet(s) PO daily 07/31/2015 02/25/2016 Inactive pravastatin 10 mg tablet RxNorm: 257765 1 Tablet(s) PO daily 07/23/2015 01/18/2016 Inactive hydrochlorothiazide 25 mg tablet RxNorm: 194918 1 Tablet(s) PO daily 07/19/2015 07/12/2016 Inactive nortriptyline 10 mg capsule RxNorm: 261956 1 Capsule(s) PO QPM 07/03/2015 10/30/2015 Inactive metoprolol succinate ER 100 mg tablet,extended release 24 hr RxNorm: 763415 1 Tablet(s) PO daily 06/06/2015 05/30/2016 Inactive pravastatin 10 mg tablet RxNorm: 078331 1 Tablet(s) PO daily 01/22/2015 07/20/2015 Inactive aspirin 81 mg capsule,delayed release RxNorm: 201511 1 Capsule(s) PO daily 01/11/2015 02/09/2015 Inactive Fosamax 5 mg tablet RxNorm: 283972 1 Tablet(s) QW 01/11/2015 12/02/2017 Inactive oxybutynin chloride ER 10 mg tablet,extended release 24 hr RxNorm: 696791 1 Tablet(s) PO daily 01/11/2015 08/29/2015 Inactive Fosamax 70 mg tablet RxNorm: 317874 1 Tablet(s) PO QW No Start Date Active Claritin oral RxNorm: 05931 oral No Start Date Active Centrum oral RxNorm: oral No Start Date Active Calcium 600 + D(3) oral RxNorm: 954091 oral No Start Date Active Coumadin 4 mg tablet RxNorm: 673538 1 Tablet(s) PO daily on ,, No Start Date 06/07/2018 Inactive Vitamin D3 oral RxNorm: oral No Start Date 06/16/2018 Inactive pravastatin 10 mg tablet RxNorm: 649543 1 Tablet(s) PO daily No Start Date 01/21/2015 Inactive Aspirin Low Dose 81 mg tablet,delayed release RxNorm: 124857 1 Tablet(s) PO BIW on Thursday and Thursday No Start Date 06/16/2018 Inactive Tylenol PM oral RxNorm: 051684 oral No Start Date 04/07/2017 Inactive Vitamin D2 oral RxNorm: 4018 oral No Start Date 06/08/2018 Inactive Vitamin D2 50,000 unit capsule RxNorm: 511025 1 Capsule(s) PO QW No Start Date 04/13/2017 Inactive tramadol 50 mg tablet RxNorm: 202670 1 Tablet(s) PO TID as needed No Start Date 03/16/2018 Inactive Colace 100 mg capsule RxNorm: 6120895 Capsule(s) PO No Start Date 06/07/2018 Inactive furosemide 40 mg tablet RxNorm: 183701 1 Tablet(s) PO daily as needed No Start Date 07/12/2018 Inactive biotin oral RxNorm: oral No Start Date 06/16/2018 Inactive Micro-K 10 10 mEq capsule,extended release RxNorm: 738565 1 Capsule(s) PO daily No Start Date 05/07/2017 Inactive Synthroid 100 mcg tablet RxNorm: 398186 Tablet(s) PO No Start Date 07/31/2015 Inactive Vitamin B-12 oral RxNorm: oral No Start Date 06/16/2018 Inactive PreserVision AREDS 2 oral RxNorm: 2325196 oral No Start Date 06/07/2018 Inactive hydrochlorothiazide 25 mg tablet RxNorm: 000531 1 Tablet(s) PO daily No Start Date 07/18/2015 Inactive warfarin 2 mg tablet RxNorm: 124573 Tablet(s) PO No Start Date 08/29/2015 Inactive metoprolol succinate ER 100 mg tablet,extended release 24 hr RxNorm: 618342 1 Tablet(s) PO daily No Start Date 06/05/2015 Inactive warfarin 3 mg tablet RxNorm: 288122 Tablet(s) PO No Start Date 08/29/2015 Inactive Coumadin 3 mg tablet RxNorm: 696941 1 Tablet(s) PO QPM at 6:00pm Managed by Dr Bowman No Start Date 06/17/2017 Inactive Myrbetriq 50 mg tablet,extended release RxNorm: 8143360 1 Tablet(s) PO daily No Start Date 08/23/2018 Inactive Medication Administered Medication Codes Instructions Start Date Status Kenalog 40 mg/mL suspension for injection RxNorm: 4773653 2Milliliter 03/12/2018 No longer Active ceftriaxone 500 mg solution for injection RxNorm: 4614595 02/08/2018 No longer Active ceftriaxone 500 mg solution for injection RxNorm: 3978093 10/06/2016 No longer Active Kenalog 40 mg/mL suspension for injection RxNorm: 4632715 1Milliliter 10/06/2016 No longer Active Kenalog 40 mg/mL suspension for injection RxNorm: 9633110 Milliliter 04/28/2016 No longer Active Immunizations Vaccine [...] edema ICD-10: R60.0 ICD-9: 782.3 05/24/2018 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 ICD-10: Z79.01 ICD-9: [...] NO Growth Day 2 05/27/2018 Comp Metabolic Kpy769 NA 142 mEq/L 05/24/2018 Comp Metabolic Qul462 K 4.0 mEq/L 05/24/2018 Comp Metabolic Fpv481 CL 104 mEq/L 05/24/2018 Comp Metabolic Rnv117 CO2 30.0 mEq/L 05/24/2018 Comp Metabolic Vmi619 ANION GAP 12 05/24/2018 Comp Metabolic Izk231 GLUCOSE 94 mg/dL 05/24/2018 Comp Metabolic Kux954 Creat 0.6 mg/dL 05/24/2018 Comp Metabolic Yup637 eGFR 97 ml/min/1.73m2 05/24/2018 Comp Metabolic Gpl599 BUN 12 mg/dL 05/24/2018 Comp Metabolic Iwi788 B/C Ratio 19.4 Ratio 05/24/2018 Comp Metabolic Fbq486 CALCIUM 8.8 mg/dL 05/24/2018 Comp Metabolic Wga138 ALK PHOS 135 U/L 05/24/2018 Comp Metabolic Oyr905 AST(SGOT) 18 U/L 05/24/2018 Comp Metabolic Ooo288 ALT(SGPT) 16 U/L 05/24/2018 Comp Metabolic Oob800 BILI T 0.4 mg/dL 05/24/2018 Comp Metabolic Fmn227 ALBUMIN 3.9 g/dL 05/24/2018 Comp Metabolic Niy344 TPRO 6.0 g/dL 05/24/2018 Comp Metabolic Ayg939 GLOB 2.1 g/dL 05/24/2018 Comp Metabolic Crw933 A/G Ratio 1.8 Ratio 05/24/2018 Comp Metabolic Teh220 Osmo 283 mOsmo 05/24/2018 Pt [id number] PT 28.2 seconds 05/24/2018 Pt Zex1231 INR 2.6 05/24/2018 Pt Nnp3182 Low Intensity - 1.5-2.0 05/24/2018 Pt Hej4409 Mod intensity - 2.0-3.0 05/24/2018 Pt Vyx3871 Hi intensity - 3.0-4.0 05/24/2018 Cbc With [...] 96.3 fl 05/24/2018 Cbc With Differential Ord2 Bay% 7.0 % 05/24/2018 Cbc With Differential Ord2 [...] 1.54 K/ul 05/24/2018 Cbc With Differential Ord2 Bay ABS# 0.5 K/ul 05/24/2018 Cbc With Differential Ord2 Eos ABS# 0.4 K/ul 05/24/2018 Cbc With Differential Ord2 Baso ABS# 0.0 K/ul 05/24/2018 Tsh Ord6 TSH (3rd IS) 3.19 uIU/mL 10/06/2017 Free T4 Xzh173 FREE T4 1.64 ng/dL 10/06/2017 Free T4 Dyp035 FREE T4 1.03 ng/dL 08/05/2017 Tsh Ord6 [...] Ord30 C/HDL 3.7 Ratio 04/09/2017 Free T4 Plg632 FREE T4 0.97 ng/dL 04/09/2017 Tibc Ord40 Iron 36 ug/dl 04/09/2017 Tibc Ord40 UIBC 281 ug/dL 04/09/2017 Tibc Ord40 TIBC 317 ug/dL 04/09/2017 Tibc Ord40 Fe-%Sat 11.4 % 04/09/2017 Comp Metabolic Lvj307 NA 136 mEq/L 04/09/2017 Comp Metabolic Rhs472 K 3.9 mEq/L 04/09/2017 Comp Metabolic Ais374 CL 98 mEq/L 04/09/2017 Comp Metabolic Vgt607 CO2 28.0 mEq/L 04/09/2017 Comp Metabolic Zqc303 ANION GAP 14 04/09/2017 Comp Metabolic Xik115 GLUCOSE 90 mg/dL 04/09/2017 Comp Metabolic Xow221 Creat 0.6 mg/dL 04/09/2017 Comp Metabolic Wpn022 eGFR 102 ml/min/1.73m2 04/09/2017 Comp Metabolic Iam261 BUN 9 mg/dL 04/09/2017 Comp Metabolic Nuu653 B/C Ratio 15.3 Ratio 04/09/2017 Comp Metabolic Vmf247 CALCIUM 8.8 mg/dL 04/09/2017 Comp Metabolic Jpg164 ALK PHOS 102 U/L 04/09/2017 Comp Metabolic Rky173 AST(SGOT) 18 U/L 04/09/2017 Comp Metabolic Kil494 ALT(SGPT) 14 U/L 04/09/2017 Comp Metabolic Hwd858 BILI T 0.4 mg/dL 04/09/2017 Comp Metabolic Ifx294 ALBUMIN 3.9 g/dL 04/09/2017 Comp Metabolic Dnv341 TPRO 6.3 g/dL 04/09/2017 Comp Metabolic Ohu732 GLOB 2.4 g/dL 04/09/2017 Comp Metabolic Haw665 A/G Ratio 1.7 Ratio 04/09/2017 Comp Metabolic Vqe395 Osmo 270 mOsmo 04/09/2017 Vitamin D 25 Oh Lzz0103 VITAMIN D, 25 HYDROXY 34.31 ng/mL 04/09/2017 [...] 28.9 pg 04/09/2017 Cbc With Differential Ord2 Bay% 8.8 % 04/09/2017 Cbc With Differential Ord2 [...] 1.22 K/ul 04/09/2017 Cbc With Differential Ord2 Bay ABS# 0.7 K/ul 04/09/2017 Cbc With Differential Ord2 Eos ABS# 0.1 K/ul 04/09/2017 Cbc With Differential Ord2 Baso ABS# 0.0 K/ul 04/09/2017 Urine Culture Ucult Complete >100,000 col/ml aerobic growth sent to ref lab 03/05/2017 Pt Sqi7326 PT 24.2 seconds 04/14/2016 Pt Qci3406 INR 2.3 04/14/2016 Pt Wtv6492 Low Intensity - 1.5-2.0 04/14/2016 Pt Mcx0433 Mod intensity - 2.0-3.0 04/14/2016 Pt Zrb2406 Hi intensity - 3.0-4.0 04/14/2016 Pt Uwe3100 PT 31.3 seconds 04/10/2016 Pt Ocr7352 INR 3.3 04/10/2016 Pt Rwo4134 Low Intensity - 1.5-2.0 04/10/2016 Pt Hpe0471 Mod intensity - 2.0-3.0 04/10/2016 Pt Ktt9957 Hi intensity - 3.0-4.0 04/10/2016 C RAP A SC [id number] Strep A Negative 04/10/2016 Urine Culture Ucult Complete >100,000 col/ml aerobic growth sent to ref lab 04/04/2016 Comp Metabolic Itz441 NA 136 mEq/L 04/03/2016 Comp Metabolic Lxl959 K 3.9 mEq/L 04/03/2016 Comp Metabolic Cjb220 CL 99 mEq/L 04/03/2016 Comp Metabolic Cfi392 CO2 32.0 mEq/L 04/03/2016 Comp Metabolic Dep075 ANION GAP 9 04/03/2016 Comp Metabolic Awy330 GLUCOSE 88 mg/dL 04/03/2016 Comp Metabolic Nvb869 Creat 0.6 mg/dL 04/03/2016 Comp Metabolic Nrt596 eGFR 93 ml/min/1.73m2 04/03/2016 Comp Metabolic Mpf067 BUN 15 mg/dL 04/03/2016 Comp Metabolic Uct948 B/C Ratio 23.4 Ratio 04/03/2016 Comp Metabolic Kev955 CALCIUM 8.7 mg/dL 04/03/2016 Comp Metabolic Dyj656 ALK PHOS 100 U/L 04/03/2016 Comp Metabolic Euk789 AST(SGOT) 28 U/L 04/03/2016 Comp Metabolic Vfr640 ALT(SGPT) 39 U/L 04/03/2016 Comp Metabolic Djm810 BILI T 0.5 mg/dL 04/03/2016 Comp Metabolic Osm370 ALBUMIN 4.1 g/dL 04/03/2016 Comp Metabolic Yhx074 TPRO 6.6 g/dL 04/03/2016 Comp Metabolic Dex585 GLOB 2.5 g/dL 04/03/2016 Comp Metabolic Yye247 A/G Ratio 1.7 Ratio 04/03/2016 Comp Metabolic Ewv310 Osmo 272 mOsmo 04/03/2016 Cbc With Differential [...] 29.0 pg 04/03/2016 Cbc With Differential Ord2 Bay% 11.3 % 04/03/2016 Cbc With Differential Ord2 [...] 1.15 K/ul 04/03/2016 Cbc With Differential Ord2 Bay ABS# 0.8 K/ul 04/03/2016 Cbc With Differential Ord2 Eos ABS# 0.2 K/ul 04/03/2016 Cbc With Differential Ord2 Baso ABS# 0.0 K/ul 04/03/2016 Tsh Ord6 hTSH II 3.06 uIU/mL 04/03/2016 Free T4 Gkf223 FREE T4 0.99 ng/dL 04/03/2016 Free T4 Ajk878 FREE T4 0.81 ng/dL 07/31/2015 Comp Metabolic Ycl410 NA 136 mEq/L 07/31/2015 Comp Metabolic Iob234 K 3.8 mEq/L 07/31/2015 Comp Metabolic Fzm220 CL 97 mEq/L 07/31/2015 Comp Metabolic Vde990 CO2 29.0 mEq/L 07/31/2015 Comp Metabolic Wct556 ANION GAP 14 07/31/2015 Comp Metabolic Zoc750 GLUCOSE 90 mg/dL 07/31/2015 Comp Metabolic Buk323 Creat 0.7 mg/dL 07/31/2015 Comp Metabolic Iin732 eGFR 80 ml/min/1.73m2 07/31/2015 Comp Metabolic Mrd743 BUN 8 mg/dL 07/31/2015 Comp Metabolic Ios635 B/C Ratio 11.0 Ratio 07/31/2015 Comp Metabolic Pnm288 CALCIUM 8.9 mg/dL 07/31/2015 Comp Metabolic Bzo309 ALK PHOS 102 U/L 07/31/2015 Comp Metabolic Scl982 AST(SGOT) 22 U/L 07/31/2015 Comp Metabolic Fwb698 ALT(SGPT) 14 U/L 07/31/2015 Comp Metabolic Aud174 BILI T 0.5 mg/dL 07/31/2015 Comp Metabolic Kle258 ALBUMIN 4.4 g/dL 07/31/2015 Comp Metabolic Xwo635 TPRO 6.7 g/dL 07/31/2015 Comp Metabolic Unc491 GLOB 2.3 g/dL 07/31/2015 Comp Metabolic Fam720 A/G Ratio 1.9 Ratio 07/31/2015 Comp Metabolic Rwr846 Osmo 270 mOsmo 07/31/2015 Tsh Ord6 hTSH [...] Lipid Ord30 C/HDL 4.8 Ratio 07/31/2015 Pt [id number] PT 31.9 seconds 07/03/2015 Pt [id number] INR 3.2 07/03/2015 Pt Mrc1582 Low Intensity - 1.5-2.0 07/03/2015 Pt Cil7285 Mod intensity - 2.0-3.0 07/03/2015 Pt Wzb3512 Hi intensity - 3.0-4.0 07/03/2015 Review of [...] dentition 03/02/2018 None Full Exam - General 1995 [...] drainage 11/13/2016 None Full Exam - General 1995 Ears/Nose/Throat internal nose Overall: nasopharynx benign 11/13/2016 [...] [id number] 06/08/2018 URINALYSIS NONAUTO W/O SCOPE CPT-4: 82115 05/25/2018 ADMIN INFLUENZA VIRUS VAC CPT-4: G0008 05/20/2018 FLU VACC PRSV FREE INC ANTIG CPT-4: 94535 05/20/2018 DRAIN/INJECT JOINT/BURSA CPT-4: 80188 03/23/2018 TRIAMCINOLONE ACET INJ NOS CPT-4: J3301 03/23/2018 DRAIN/INJECT JOINT/BURSA CPT-4: 61129 03/12/2018 TRIAMCINOLONE ACET INJ NOS CPT-4: J3301 03/12/2018 ROCEPHIN, PER 250 MG CPT- 4: J0696 02/08/2018 ADMIN INFLUENZA VIRUS VAC CPT-4: G0008 06/18/2017 FLU VACC PRSV FREE INC ANTIG CPT-4: 83443 06/18/2017 URINALYSIS NONAUTO W/O SCOPE CPT-4: 32273 04/27/2017 URINALYSIS NONAUTO W/O SCOPE CPT-4: 04035 2017 DRAIN/INJECT JOINT/BURSA CPT-4: 41382 03/03/2017 TRIAMCINOLONE ACET INJ NOS CPT-4: J3301 03/03/2017 TRIAMCINOLONE ACET INJ NOS CPT-4: J3301 10/06/2016 ROCEPHIN, PER 250 MG CPT- 4: J0696 10/06/2016 THER/PROPH/DIAG INJ SC/IM CPT-4: 63376 10/06/2016 TRIAMCINOLONE ACET INJ NOS CPT-4: J3301 04/28/2016 URINALYSIS NONAUTO W/O SCOPE CPT-4: 07177 04/03/2016 ADMIN INFLUENZA VIRUS VAC CPT-4: G0008 07/03/2015 FLU VACC PRSV FREE INC ANTIG CPT-4: 41144 07/03/2015 Vital Signs Date Vital 07/20/2018 Blood Pressure 1: 124/70 Code: 8480-6 Heart Rate 1: 76 bpm Height: SpO2: 95% Weight: 06/29/2018 Blood Pressure 1: 142/80 Code: 8480-6 BMI: 27.8 Code: 74820-6 Heart Rate 1: 89 bpm Height: 5'6" SpO2: 94% Weight: 172 lbs 06/08/2018 Blood Pressure 1: 144/66 Code: 8480-6 BMI: 27.9 Code: 88230-9 Heart Rate 1: 85 bpm Height: 5'6" SpO2: 97% Waist Measure (cm): 97 cm Weight: 173 lbs 05/24/2018 Blood Pressure 1: 128/72 Code: 8480-6 BMI: 27.9 Code: 65306-9 Heart Rate 1: 82 bpm Height: 5'6" SpO2: 92% Weight: 173 lbs 04/06/2018 Blood Pressure 1: 138/88 Code: 8480-6 Heart Rate 1: 86 bpm Height: SpO2: 96% Weight: 03/23/2018 Blood Pressure 1: 150/88 Code: 8480-6 Heart Rate 1: 80 bpm Height: SpO2: 96% Weight: 03/12/2018 Heart Rate 1: 90 bpm Height: Weight: 03/02/2018 Blood Pressure 1: 128/80 Code: 8480-6 BMI: 28.4 Code: 57317-1 Heart Rate 1: 83 bpm Height: 5'6" SpO2: 93% Weight: 176 lbs 02/08/2018 Blood Pressure 1: 142/80 Code: 8480-6 Heart Rate 1: 78 bpm Height: 5'6" SpO2: 94% 12/03/2017 Blood Pressure 1: 124/78 Code: 8480-6 BMI: 27.9 Code: 16997-8 Heart Rate 1: 70 bpm Height: 5'6" SpO2: 97% Weight: 173 lbs 10/27/2017 Blood Pressure 1: 126/60 Code: 8480-6 Heart Rate 1: 65 bpm Height: 5'6" SpO2: 98% Weight: 10/12/2017 Blood Pressure 1: 126/74 Code: 8480-6 BMI: 26.0 Code: 26179-7 Heart Rate 1: 80 bpm Height: 5'6" SpO2: 89% Weight: 161 lbs 10/06/2017 Blood Pressure 1: 126/70 Code: 8480-6 BMI: 27.2 Code: 79272-3 Heart Rate 1: 73 bpm Height: 5'6" SpO2: 97% Weight: 168 lbs 8 oz 08/05/2017 Blood Pressure 1: 152/78 Code: 8480-6 BMI: 27.1 Code: 35148-2 Heart Rate 1: 73 bpm Height: 5'6" SpO2: 98% Weight: 168 lbs 07/06/2017 Blood Pressure 1: 148/70 Code: 8480-6 BMI: 26.6 Code: 67643-8 Heart Rate 1: 80 bpm Height: 5'6" SpO2: 97% Weight: 165 lbs 06/18/2017 Blood Pressure 1: 132/68 Code: 8480-6 BMI: 26.8 Code: 32883-5 Heart Rate 1: 84 bpm Height: 5'6" [...] 1: 162/84 Code: 8480-6 BMI: 28.1 Code: 59930-5 Heart Rate 1: 98 bpm Height: 5'6" SpO2: 97% Weight: 174 lbs 03/03/2017 Blood Pressure 1: 154/88 Code: 8480-6 Heart Rate 1: 96 bpm Height: SpO2: 95% Weight: 01/05/2017 Blood Pressure 1: 142/78 Code: 8480-6 BMI: 28.9 Code: 30380-8 Heart Rate 1: 94 bpm Height: 5'6" SpO2: 95% Weight: 179 lbs 12/19/2016 Blood Pressure 1: 130/74 Code: 8480-6 Heart Rate 1: 91 bpm Height: 5'6" SpO2: 97% Weight: 11/13/2016 Blood Pressure 1: 152/82 Code: 8480-6 BMI: 28.4 Code: 36387-2 Heart Rate 1: 85 bpm Height: 5'6" SpO2: 96% Weight: 176 lbs 10/16/2016 Blood Pressure 1: 148/72 Code: 8480-6 BMI: 28.4 Code: 17297-3 Heart Rate 1: 90 bpm Height: 5'6" SpO2: 96% Weight: 176 lbs 10/06/2016 Blood Pressure 1: 150/80 Code: 8480-6 BMI: 28.4 Code: 98962-3 Heart Rate 1: 76 bpm Height: 5'6" SpO2: 97% Weight: 176 lbs 07/02/2016 Blood Pressure 1: 142/78 Code: 8480-6 BMI: 27.8 Code: 61259-0 Heart Rate 1: 85 bpm Height: 5'6" SpO2: 97% Weight: 172 lbs 05/21/2016 Blood Pressure 1: 166/80 Code: 8480-6 BMI: 27.9 Code: 51463-5 Heart Rate 1: 79 bpm Height: 5'6" SpO2: 98% Weight: 173 lbs 05/07/2016 Blood Pressure 1: 140/70 Code: 8480-6 BMI: 27.9 Code: 49084-3 Heart Rate 1: 82 bpm Height: 5'6" SpO2: 96% Weight: 173 lbs 04/28/2016 Blood Pressure 1: 128/86 Code: 8480-6 BMI: 27.4 Code: 10641-9 Heart Rate 1: 86 bpm Height: 5'6" SpO2: 96% Temperature: 36.1 (C) / 97.0 (F) Weight: 170 lbs 04/07/2016 Blood Pressure 1: 150/80 Code: 8480-6 Heart Rate 1: 94 bpm Height: SpO2: 95% Weight: 04/03/2016 Blood Pressure 1: 122/76 Code: 8480-6 BMI: 27.4 Code: 56937-3 Heart Rate 1: 84 bpm Height: 5'6" SpO2: 94% Weight: 170 lbs 01/31/2016 Blood Pressure 1: 124/82 Code: 8480-6 BMI: 27.8 Code: 24060-8 Heart Rate 1: 100 bpm Height: 5'6" SpO2: 97% Weight: 172 lbs 11/29/2015 Blood Pressure 1: 140/82 Code: 8480-6 Blood Pressure 1: 130/84 Code: 8480-6 BMI: 27.4 Code: 32495-7 Heart Rate 1: 97 bpm Height: 5'6" SpO2: 95% Weight: 170 lbs 10/01/2015 Blood Pressure 1: 130/80 Code: 8480-6 BMI: 27.4 Code: 32663-5 Heart Rate 1: 82 bpm Height: 5'6" SpO2: 97% Weight: 170 lbs 08/30/2015 Blood Pressure 1: 120/68 Code: 8480-6 BMI: 27.6 Code: 24667-9 Heart Rate 1: 91 bpm Height: 5'6" SpO2: 96% Weight: 171 lbs 07/31/2015 Blood Pressure 1: 180/80 Code: 8480-6 BMI: 27.4 Code: 68096-9 Heart Rate 1: 60 bpm Height: 5'6" SpO2: 94% Weight: 170 lbs 07/03/2015 Blood Pressure 1: 154/80 Code: 8480-6 BMI: 27.4 Code: 92009-3 Heart Rate 1: 98 bpm Height: 5'6" SpO2: 95% Weight: 170 lbs 04/10/2015 Blood Pressure 1: 138/72 Code: 8480-6 BMI: 27.8 Code: 36268-9 Heart Rate 1: 82 bpm Height: 5'6" SpO2: 98% Weight: 172 lbs 01/11/2015 Blood Pressure 1: 132/74 Code: 8480-6 BMI: 28.6 Code: 45162-0 Heart Rate 1: 88 bpm Height: 5'6" [...] data Encounters Encounter Performer Location Codes Date () [id number] EST. PATIENT, LEVEL III Diagnosis: Atrophy of thyroid (acquired)[ICD10: E03.4] Diagnosis: Essential (primary) hypertension[ICD10: I10] [facility] CPT-4: 03186 07/20/2018 ([id number]) 21077 EST. PATIENT, LEVEL IV Diagnosis: Essential (primary) hypertension[ICD10: I10] Diagnosis: Atrophy of thyroid (acquired)[ICD10: E03.4] Diagnosis: Other fatigue[ICD10: R53.83] Diagnosis: Other insomnia[ICD10: G47.09] [facility] CPT-4: 72806 06/29/2018 ([id number]) 97376 EST. 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 PATIENT, LEVEL III Diagnosis: Lumbago with sciatica, right side[ICD10: M54.41] Diagnosis: Sciatica, right side[ICD10: M54.31] Carleen Anaya MD, [facility] CPT- 4: 30613 04/06/2018 ([id number]) 86493 EST. PATIENT, LEVEL III Diagnosis: Lumbago with sciatica, right side[ICD10: M54.41] Diagnosis: Sciatica, right side[ICD10: M54.31] Carleen Anaya MD, [facility] CPT- 4: 48576 03/23/2018 68662 EST. PATIENT, LEVEL III Diagnosis: Low back pain[ICD10: M54.5] Diagnosis: Sacroiliitis, not elsewhere classified[ICD10: M46.1] Wendi Anaya MD, [facility] CPT-4: 47586 03/12/2018 ([id number]) 64486 EST. PATIENT, LEVEL IV Diagnosis: Atrophy of thyroid (acquired)[ICD10: E03.4] Diagnosis: Essential (primary) hypertension[ICD10: I10] Diagnosis: Urge incontinence[ICD10: N39.41] Carleen Anaya MD, [facility] CPT-4: 62542 03/02/2018 ([id number]) 37939 EST. PATIENT, LEVEL III Diagnosis: Cellulitis of face[ICD10: L03.211] Mimi Anaya MD, [facility] CPT- 4: 65467 02/08/2018 ([id number]) 36102 EST. PATIENT, LEVEL IV Diagnosis: Atrophy of thyroid (acquired)[ICD10: E03.4] Diagnosis: Essential (primary) hypertension[ICD10: I10] Diagnosis: Urge incontinence[ICD10: N39.41] Carleen Anaya MD, [facility] CPT-4: 91055 12/03/2017 43691 EST. PATIENT, LEVEL IV Diagnosis: Essential (primary) hypertension[ICD10: I10] Diagnosis: Weakness[ICD10: R53.1] Diagnosis: Low back pain[ICD10: M54.5] Diagnosis: Other allergic rhinitis[ICD10: J30.89] Wendi Anaya MD, [facility] CPT- 4: 27596 10/27/2017 60472 EST. PATIENT, LEVEL IV Diagnosis: Pneumonia due to other specified bacteria[ICD10: J15.8] Diagnosis: Chronic systolic (congestive) heart failure[ICD10: I50.22] Wendi Anaya MD, [facility] CPT-4: 09398 10/12/2017 ([id number]) 48078 EST. PATIENT, LEVEL IV Diagnosis: Atrophy of thyroid (acquired)[ICD10: E03.4] Diagnosis: Nonscarring hair loss, unspecified[ICD10: L65.9] Diagnosis: Essential (primary) hypertension[ICD10: I10] Carleen Anaya MD, [facility] CPT-4: 18090 10/06/2017 ([id number]) 68226 EST. PATIENT, LEVEL IV Diagnosis: Atrophy of thyroid (acquired)[ICD10: E03.4] Diagnosis: Essential (primary) hypertension[ICD10: I10] Diagnosis: Localized edema[ICD10: R60.0] Carleen Anaya MD, [facility] CPT-4: 45955 08/05/2017 ([id number]) 93061 EST. PATIENT, LEVEL IV Diagnosis: Essential (primary) hypertension[ICD10: I10] Diagnosis: Weakness[ICD10: R53.1] Diagnosis: Other fecal abnormalities[ICD10: R19.5] Carleen Anaya MD, [facility] CPT-4: 93454 07/06/2017 ([id number]) 70088 EST. 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 PATIENT, LEVEL IV Diagnosis: Pain in right shoulder[ICD10: M25.511] Diagnosis: Weakness[ICD10: R53.1] Diagnosis: Other fatigue[ICD10: R53.83] Diagnosis: Other malaise[ICD10: R53.81] Wendi Anaya MD, [facility] CPT-4: 43326 05/11/2017 ([id number]) Miscellaneous no charge Diagnosis: Essential (primary) hypertension[ICD10: I10] Mimi Anaya MD, [facility] CPT-4: 92795 04/30/2017 ([id number]) 85709 EST. PATIENT, LEVEL III Diagnosis: Acute recurrent maxillary sinusitis[ICD10: J01.01] Diagnosis: Urinary tract infection, site not specified[ICD10: N39.0] Mimi Anaya MD, [facility] CPT-4: 98878 04/27/2017 ([id number]) 75553 EST. PATIENT, LEVEL IV Diagnosis: Atrophy of thyroid (acquired)[ICD10: E03.4] Diagnosis: Essential (primary) hypertension[ICD10: I10] Diagnosis: Iron deficiency[ICD10: E61.1] Diagnosis: Other specified heart block[ICD10: I45.5] Carleen Anaya MD, [facility] CPT-4: 92572 04/08/2017 27367 EST. PATIENT, LEVEL III Diagnosis: Low back pain[ICD10: M54.5] Diagnosis: Sacroiliitis, not elsewhere classified[ICD10: M46.1] Wendi Anaya MD, [facility] CPT-4: 01750 03/03/2017 ([id number]) 49175 EST. PATIENT, LEVEL IV Diagnosis: Essential (primary) hypertension[ICD10: I10] Diagnosis: Atrophy of thyroid (acquired)[ICD10: E03.4] Diagnosis: Vascular dementia without behavioral disturbance[ICD10: F01.50] Carleen Anaya MD, [facility] CPT-4: 86769 01/05/2017 95942 EST. PATIENT, LEVEL III Diagnosis: Cervicalgia[ICD10: M54.2] Diagnosis: Other muscle spasm[ICD10: M62.838] Wendi Anaya MD, [facility] CPT-4: 29463 12/19/2016 ([id number]) 61238 EST. PATIENT, LEVEL III Diagnosis: Essential (primary) hypertension[ICD10: I10] Diagnosis: Gastro-esophageal reflux disease without esophagitis[ICD10: K21.9] Carleen Anaya MD [facility] CPT-4: 03325 11/13/2016 ([id number]) 05374 EST. PATIENT, LEVEL III Diagnosis: Pain in right shoulder[ICD10: M25.511] Diagnosis: Insomnia due to medical condition[ICD10: G47.01] Carleen Anaya MD [facility] CPT-4: 18245 10/16/2016 ([id number]) 44312 EST. PATIENT, LEVEL IV Diagnosis: Pneumonia due to other specified bacteria[ICD10: J15.8] Diagnosis: Pain in right shoulder[ICD10: M25.511] Diagnosis: Cough[ICD10: R05] Carleen Anaya MD, [facility] CPT-4: 88204 10/06/2016 ([id number]) 84405 EST. PATIENT, LEVEL IV Diagnosis: Essential (primary) hypertension[ICD10: I10] Diagnosis: Personal history of other specified conditions[ICD10: Z87.898] Diagnosis: Unsteadiness on feet[ICD10: R26.81] Carleen Anaya MD [facility] CPT- 4: 62175 07/02/2016 ([id number]) 83577 EST. PATIENT, LEVEL IV Diagnosis: Dysphagia, pharyngeal phase[ICD10: R13.13] Diagnosis: Urge incontinence[ICD10: N39.41] Diagnosis: Gastro-esophageal reflux disease without esophagitis[ICD10: K21.9] Carleen Anaya MD [facility] CPT-4: 32983 05/21/2016 ([id number]) 64233 EST. PATIENT, LEVEL III Diagnosis: Gastro-esophageal reflux disease without esophagitis[ICD10: K21.9] Carleen Anaya MD [facility] CPT-4: 33655 05/07/2016 ([id number]) 43628 EST. PATIENT, LEVEL III Diagnosis: Acute laryngopharyngitis[ICD10: J06.0] Diagnosis: Dysphagia, pharyngeal phase[ICD10: R13.13] Diagnosis: Allergic rhinitis due to pollen[ICD10: J30.1] Mimi Anaya MD, [facility] CPT-4: 86509 04/28/2016 ([id number]) Miscellaneous no charge Diagnosis: Acute laryngopharyngitis[ICD10: J06.0] Wendi Anaya MD, [facility] CPT- 4: 54616 04/10/2016 49729 EST. 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 PATIENT, LEVEL IV Diagnosis: Essential (primary) hypertension[ICD10: I10] Diagnosis: Hypothyroidism, unspecified[ICD10: E03.9] Diagnosis: Other fatigue[ICD10: R53.83] Diagnosis: Urge incontinence[ICD10: N39.41] Mimi Anaya MD, [facility] CPT- 4: 12916 04/03/2016 ([id number]) 39800 EST. PATIENT, LEVEL IV Diagnosis: Essential (primary) hypertension[ICD10: I10] Diagnosis: Pain in right ankle and joints of right foot[ICD10: M25.571] Diagnosis: Dizziness and giddiness[ICD10: R42] Diagnosis: Tinnitus, bilateral[ICD10: H93.13] Mimi Anaya MD, [facility] CPT- 4: 13669 01/31/2016 ([id number]) 95687 EST. PATIENT, LEVEL IV Diagnosis: Essential (primary) hypertension[ICD10: I10] Diagnosis: Otalgia, right ear[ICD10: H92.01] Diagnosis: Allergic rhinitis due to pollen[ICD10: J30.1] Diagnosis: Hypothyroidism, unspecified[ICD10: E03.9] Mimi Anaya MD, [facility] CPT-4: 31171 11/29/2015 ([id number]) 43550 EST. PATIENT, LEVEL IV Diagnosis: Essential (primary) hypertension[ICD10: I10] Diagnosis: Urge incontinence[ICD10: N39.41] Diagnosis: Unspecified dementia without behavioral disturbance[ICD10: F03.90] Mimi Anaya MD, [facility] CPT-4: 46525 10/01/2015 ([id number]) 19379 EST. PATIENT, LEVEL IV Diagnosis: Essential (primary) hypertension[ICD10: I10] Diagnosis: Hypothyroidism, unspecified[ICD10: E03.9] Diagnosis: Unspecified dementia without behavioral disturbance[ICD10: F03.90] Diagnosis: Urge incontinence[ICD10: N39.41] Mimi Anaya MD, [facility] CPT- 4: 88900 08/30/2015 ([id number]) 78034 EST. PATIENT, LEVEL IV Diagnosis: Essential (primary) hypertension[ICD10: I10] Diagnosis: Hypothyroidism, unspecified[ICD10: E03.9] Diagnosis: Hyperlipidemia, unspecified[ICD10: E78.5] Carleen Anaya MD, [facility] CPT-4: 11059 07/31/2015 ([id number]) 11641 EST. PATIENT, LEVEL IV Diagnosis: Essential (primary) hypertension[ICD10: I10] Diagnosis: 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[ICD10: Z79.01] Diagnosis: Dizziness and giddiness[ICD10: R42] Carleen Anaya MD, [facility] CPT- 4: 08595 07/03/2015 ([id number]) 81443 EST. PATIENT, LEVEL IV Diagnosis: ESSENTIAL HYPERTENSION[ICD9: 401.9] Diagnosis: MACULAR DEGENERATION[ICD9: 362.50] Diagnosis: Peripheral vascular disease[ICD9: 443.9] Diagnosis: Neuropathy[ICD9: 355.9] [facility] CPT-4: 24793 04/10/2015 ([id number]) OFFICE/OUTPATIENT VISIT NEW Diagnosis: ESSENTIAL HYPERTENSION[ICD9: 401.9] Diagnosis: HYPOTHYROIDISM[ICD9: 244.9] Diagnosis: URGE INCONTINENCE[ICD9: 788.31] Diagnosis: Constipation - functional[ICD9: 564.09] [facility] CPT-4: 76171 01/11/2015 Plan of Care Planned Activity Notes Codes Status Date Visit Plan: Hypothyroidism - pt with chronic hypothyroidism, slightly over supplemented decrease to 200mcg tue/thur and 175mcg m//thu/sat/sun, will monitor pt to signs or symptoms [...] at home. 07/20/2018 Appointment[facility] (15 min) Moderate 07/20/2018 Patient Education: Patient [...] this time. 06/29/2018 Appointment: [facility] [address] [facility] (15 min) Moderate 06/29/2018 Patient Education: Patient [...] care surrogate. 06/08/2018 Appointment: Mimi Espinosa WPtel: [facility] - Annual Wellness Visit 06/08/2018 Patient Education: [...] edema. Weakness-fatigue- check labs Dysuria- check UA XNR-yuuuijbuwr-lj changes in medications 05/24/2018 Appointment: Mimi Espinosa WPtel: [address] [place] [address] (15 min) Moderate 05/24/2018 Patient Education: Patient Medication Summary Completed 05/24/2018 Appointment: Injection 05/20/2018 Patient Education: Patient Medication Summary Completed 05/20/2018 Visit Plan: Sciatica- pt to continue with aleve twice daily and cyclobenzaprine x 1 week. Pt is to call if the symptoms do not improve or if they worsen. referral to [facility] physical therapy. 04/06/2018 Appointment: Carleen Anaya WPtel: [address] [place] [address] (15 min) Moderate 04/06/2018 Patient Education: Patient [...] do not improve or if they worsen. [id number] - santasarita 03/23/2018 Appointment: Carleen Anaya WPtel: [address] [facility] (15 min) Moderate 03/23/2018 Patient Education: [...] of injection. 03/12/2018 Appointment: Wendi Uriostegui WPtel: [facility]8 [facility] (30 min) Complex 03/12/2018 Patient Education: [...] myrbetric 03/02/2018 Appointment: Carleen Anaya WPtel: [phone] [facility] (15 min) Moderate 03/02/2018 Patient Education: Patient Medication Summary Completed 03/02/2018 Appointment: (10 min) Simple 02/09/2018 Visit Plan: Cellulitis - start oral antibiotics as directed, return to clinic as directed, call for acute change in symptoms, worsening redness, warmth, discharge. 02/08/2018 Appointment: Mimi Espinosa WPtel: [phone] [facility] (15 min) Moderate 02/08/2018 Patient Education: [...] daily. 12/03/2017 Appointment: Carleen Anaya WPtel: [address] [facility] (15 min) Moderate 12/03/2017 Patient Education: [...] spray. 10/27/2017 Appointment: Wendi Uriostegui WPtel: [phone] [facility] (15 min) Moderate 10/27/2017 Patient Education: Patient Medication Summary Completed 10/27/2017 Visit Plan: Pneumonia - Pt has been diagnosed with pneumonia by physical exam. A chest xray has been ordered as have antibiotics. The pt is aware of the diagnosis and the need for acute treatment of this illness. 10/12/2017 Appointment: [phone] (15 min) Moderate 10/12/2017 Patient Education: [...] today. 10/06/2017 Appointment: [phone] (15 min) Moderate 10/06/2017 Patient [...] and prn. 08/05/2017 Appointment: [phone] [facility] [place] (15 min) Moderate 08/05/2017 Patient Education: Patient Medication Summary Completed 08/05/2017 Appointment: Carleen Anaya WPtel: [facility]2 [facility] (15 min) Moderate 07/14/2017 Visit Plan: [...] gel. 07/06/2017 Appointment: Carleen Anaya WPtel: [address] [facility] (15 min) Moderate 07/06/2017 Patient Education: [...] shot today 06/18/2017 Appointment: Carleen Anaya WPtel: [facility] [place] (15 min) Moderate 06/18/2017 Patient Education: Patient Medication Summary Completed 06/18/2017 Appointment: Nurse Visit 05/12/2017 Care Plan: X-RAY EXAM OF SHOULDER LOINC : 40439-6 Pending 05/12/2017 Visit Plan: Weakness, fatigue, malaise - Discussed with Dr. 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 Pt is to follow up with her oncologist. Right shoulder pain after fall - will send for X-ray - The pt is to use prn antiinflammatories to manage acute pain. The patient is to call the office if the pain is worsening or does not improve. 05/11/2017 Appointment: Wendi Uriostegui WPtel: [phone] [facility] (30 min) Complex 05/11/2017 Patient Education: Patient [...] plan. 04/27/2017 Appointment: [phone] (15 min) Moderate 04/27/2017 Patient Education: [...] heart beat - recommended evaluation by her [employer] - Dr. Butler - I attempted a phone call to the office of Dr. Butler, I had to leave a message on the answering machine. If i don't hear back from Dr. Butler's office, we will need to do a Holter monitor on patient. 04/08/2017 Appointment: Carleen Anaya WPtel: [address] [place], [place] [address] (15 min) Moderate 04/08/2017 Patient Education: Patient Medication Summary Completed 04/08/2017 Care Plan: Referral Order SNOMED-CT : [id number] Pending 04/08/2017 Visit Plan: UTI - pt [...] of injection. 03/03/2017 Appointment: Wendi Uriostegui WPtel: [address] [place], [place] [id number] (30 min) Complex 03/03/2017 Patient Education: Patient [...] control. 01/05/2017 Appointment: [phone] [facility] (15 min) Moderate 01/05/2017 Patient Education: Patient Medication Summary Completed 01/05/2017 Visit Plan: Neck Pain- pt to start with aspercreme or biofreeze to neck three times daily and start neck exercises daily. Will send RX - The patient is to call the office if the pain is worsening or does not improve. 12/19/2016 Appointment: Wendi Uriostegui WPtel: [facility] (30 min) Complex 12/19/2016 Patient Education: [...] not improving. 11/13/2016 Appointment: Carleen Anaya WPtel: [facility]3 [facility] (15 min) Moderate 11/13/2016 Patient Education: Patient Medication Summary Completed 11/13/2016 Visit Plan: Insomnia -extended release melatonin - you can take up to 10mg of melatonin sleepy time tea - - use warm milk in the tea. Right shoulder - pt to continue with therapy, anti-inflammatory 10/16/2016 Appointment: Carleen Anaya WPtel: [facility]8 [facility] (15 min) Moderate 10/16/2016 Patient Education: [...] pt. 10/06/2016 Appointment: [phone] [facility] [place] (15 min) Moderate 10/06/2016 Patient Education: Patient Medication Summary Completed 10/06/2016 Care Plan: X-RAY EXAM OF SHOULDER LOINC : 94973-9 Pending 10/06/2016 Appointment: [facility] Anaya [facility]el: [facility] [facility] [place] (30 min) Complex 10/01/2016 Referral: [facility] [facility] Patient informed. Completed 07/08/2016 Visit Plan: Hypertension [...] therapy. 07/02/2016 Appointment: [facility] Anaya [facility]Ptel: [phone] [facility] [place] (15 min) Moderate 07/02/2016 Patient Education: Patient Medication Summary Completed 07/02/2016 Care Plan: Referral Order SNOMED-CT : [id number] Pending 07/02/2016 Visit Plan: Hypertension - well [...] planning on getting a flu shot at [facility] and she is due for another pneumovax- last pneumovax was in 2008 - so she can have pneumovax now and the prevnar in 2017 05/21/2016 Appointment: Carleen Anaya WPtel: [address] [place] [address] (15 min) Moderate 05/21/2016 Patient Education: Patient Medication Summary Completed 05/21/2016 Referral: Nasima Medardo [address] Referral Completed 05/12/2016 Visit Plan: Esophageal [...] times daily 05/07/2016 Appointment: Carleen Anaya WPtel: [facility] (15 min) Moderate 05/07/2016 Patient Education: Patient Medication Summary Completed 05/07/2016 Appointment: Mimi Espinosa WPtel: [facility] [place] [phone] (30 min) Complex 05/01/2016 Visit Plan: Allergies [...] Kenalog injection today in the office Sore hoskdy-dvvodvard-kaxgq dexilant-refer to Dr Del Real for evaluation 04/28/2016 Appointment: Mimi Espinosa WPtel: [facility] [place] [phone] (30 min) Complex 04/28/2016 Patient Education: Patient [...] switched. 04/07/2016 Appointment: [facility]ostegui [id number] (30 min) Complex 04/07/2016 Patient Education: [...] atigue-check labs including UA-culture if positive Urge fegorrstefyl-iiiyjqmzl-buzhd UA with C&S 04/03/2016 Appointment: Mimi Espinosa WPtel: [phone] [phone] (30 min) Complex 04/03/2016 Patient Education: Patient Medication Summary Completed 04/03/2016 Visit Plan: Hypertension - well controlled - continue with current medications, continue with no added salt diet. Pt has been encouraged to exercise daily. The pt has been advised to call the office if there are any acute concerns about change in blood pressure readings at home. Aucemnelh-jmvihwud-ldzsdpmt MRI brain Right ankle ptjx-cvybxpf-ngdz right ankle- plan to refer to physical therapy if appropriate 01/31/2016 Appointment: Mimi Espinosa WPtel: [phone] [phone] (30 min) Complex 01/31/2016 Patient Education: [...] to medications. 07/31/2015 Appointment: Carleen Anaya WPtel: [address] [place], [place] [id number] (15 min) Moderate 07/31/2015 Patient Education: Patient Medication Summary Completed 07/31/2015 Patient Education: Hypertension Completed 07/31/2015 Care Plan: Referral Order SNOMED-CT : [id number] Ordered 07/31/2015 Visit Plan: Hypertension - uncontrolled [...] Nortryptyline 07/03/2015 Appointment: [phone] (15 min) Moderate 07/03/2015 Patient [...] 01/11/2015 Referral: [facility] WPtel: [address] Referral Appointment Requested Referral: External, Ordering Provider Referral Appointment Requested Referral: External, Ordering Provider Referral Relationship Referral: Nasima [address] Referral Appointment Requested Instructions Comment Flonase [...] planning on getting a flu shot at [facility] and she is due for [...] heart beat - recommended evaluation by her [employer] - Dr. Butler - I attempted a [...] Kenalog injection today in the office Sore ucsqjb-axnahwyem-epezr dexilant-refer to Dr Del Real for evaluation [...] Fatigue-check labs including UA-culture if positive Urge jxwzmotosjan-igcrrbzil-whild UA with C&S add z-pack, continue cefdinir [...] edema. Weakness-fatigue- check labs Dysuria- check UA AUC-ysmtyzffhc-wk changes in medications . Hypertension - well controlled - continue with current medications, continue with no added salt diet. Pt has been encouraged to exercise daily. The pt has been advised to call the office if there are any acute concerns about change in blood pressure readings at home. Wtuvwvwgb-ypajmfbm-wtlxybum MRI brain Right ankle kwfz-vfempoi-juwv right ankle-plan to refer to physical therapy [...] do not improve or if they worsen. [id number] - kenalog Stop Oxybutynin chloride ER. 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 Pt [...]
--- OUTSIDE RECORDS SUMMARY | 2019-01-01 12:35 | XMS REPORT | CCD ---
Author Author [facility] Organization [facility] Address [address] [place] [address] Phone Care Team Providers Care Operations Label Clerk Name Role Phone PP Unavailable CCM Unavailable Summary Purpose Interface Exchange Insurance Providers Payer name Policy type / Coverage type Covered republican ID Effective Begin Date Effective End Date WPS Medicare Part B Medicare Part B [id number] Unknown Unknown [facility] Medicare Part B [id number] Unknown Unknown Family history Father Diagnosis Age At Onset Cancer Unknown Arthritis Unknown Mother Diagnosis Age At Onset Breast cancer Unknown Arthritis Unknown Social History Social History Element Codes Description Effective Dates Alcohol history Unknown occasionally drinks alcohol 06/08/2018 Frequency of drinks SNOMED CT: 427539538 Drinks rarely 06/08/2018 Marital status Unknown 01/11/2015 Number of children Unknown 3 01/11/2015 Employment Unknown Retired 01/11/[address]: 3812896 Quit over 10 years ago 1950 01/11/[address]: 915437295 Never drinks alcohol 01/11/2015 Allergies, Adverse Reactions, Alerts Substance Reaction Codes Entered Date Inactivated Date Status * OTHER REACTION - SEE ANSWER BOX vancogein red Unknown 01/11/2015 No Inactive Date Active CODEINE RxNorm: 2670 01/11/2015 No Inactive Date Active demerol RxNorm: 792537 08/30/2015 No Inactive Date Active hydrocodone Unknown [...] ICD-9: 782.3 ICD-10: R60.0 Active 08/05/2017 Unknown detention (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 of anticoagulants ICD-9: V58.61 ICD-10: [...] edema ICD-9: 782.3 ICD-10: R60.0 08/05/2017 Active detention (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 of anticoagulants ICD-9: V58.61 ICD-10: [...] Fill Instructions Synthroid 175 mcg tablet RxNorm: 258180 1 Tablet(s) PO 4 times a week Thu Sat sun 07/20/2018 12/16/2018 Active alternate with 175mcg order Synthroid 200 mcg tablet RxNorm: 912960 Tablet(s) TAKE ONE TABLET BY MOUTH ON THURSDAY, Thursday07/20/2018 No Stop Date Active pantoprazole 40 mg tablet,delayed release RxNorm: 651486 TAKE ONE TABLET BY MOUTH TWICE DAILY 07/19/2018 No Stop Date Active furosemide 40 mg tablet RxNorm: 201305 1 Tablet(s) PO 2 times weekly with song roberto per dr butler 07/13/2018 No Stop Date Active Synthroid 200 mcg tablet RxNorm: 358551 TAKE ONE TABLET BY MOUTH ON THURSDAY, THURSDAY, AND Thursday07/13/2018 07/19/2018 Inactive Vitamin D3 400 unit capsule RxNorm: 363357 1 Capsule(s) PO daily 06/17/2018 No Stop Date Active Aspirin Low Dose 81 mg tablet,delayed release RxNorm: 354670 1 Tablet(s) PO BIW on Thursday and Thursday06/17/2018 No Stop Date Active biotin 1,000 mcg chewable tablet RxNorm: 0194190 1 Tablet(s) PO daily 06/17/2018 No Stop Date Active Vitamin B-12 500 mcg tablet RxNorm: 839930 1 Tablet(s) PO daily 06/17/2018 No Stop Date Active Colace 100 mg capsule RxNorm: 9391694 1 Capsule(s) PO QHS 06/08/2018 No Stop Date Active Coumadin 3 mg tablet RxNorm: 497059 1 Tablet(s) PO daily x5 days and 2 mg x2 days -Managed by Dr. Bowman 06/08/2018 No Stop Date Active Keflex 500 mg capsule RxNorm: 388667 1 Capsule(s) PO TID 05/25/2018 05/31/2018 Inactive metoprolol succinate ER 100 mg tablet,extended release 24 hr RxNorm: 581869 Tablet(s) TAKE ONE TABLET BY MOUTH ONCE DAILY 05/19/2018 No Stop Date Active Coumadin 3 mg tablet RxNorm: 062891 1 Tablet(s) PO daily -Managed by Dr. Bowman 05/04/2018 06/07/2018 Inactive Synthroid 175 mcg tablet RxNorm: 945967 TAKE 1 TABLET BY MOUTH ONCE DAILY 04/06/2018 06/07/2018 Inactive cyclobenzaprine 5 mg tablet RxNorm: 246610 1/2 Tablet(s) PO TID 04/06/2018 04/15/2018 Inactive Synthroid 200 mcg tablet RxNorm: 986851 1 Tablet(s) PO TIW [facility] 04/05/2018 07/12/2018 Inactive brand name only- Alternate with 175mcg dose schedule Synthroid 175 mcg tablet RxNorm: 960427 1 Tablet(s) PO 4 times a week Thu04/05/2018 07/19/2018 Inactive alternate with 175mcg order cyclobenzaprine 5 mg tablet RxNorm: 247576 1/2 Tablet(s) PO TID 03/23/2018 04/01/2018 Inactive tramadol 50 mg tablet RxNorm: 321837 1 Tablet(s) PO TID as needed 03/17/2018 No Stop Date Active Kenalog 40 mg/mL suspension for injection RxNorm: 6723928 2 Milliliter(s) Inj 03/12/2018 03/12/2018 Inactive prednisone 20 mg tablet RxNorm: 275816 2 Tablet(s) PO daily 03/11/2018 03/10/2018 Inactive prednisone 20 mg tablet RxNorm: 449649 2 Tablet(s) PO daily 03/11/2018 03/15/2018 Inactive losartan 25 mg tablet RxNorm: 380869 TAKE ONE TABLET BY MOUTH ONCE DAILY 02/16/2018 No Stop Date Active doxycycline hyclate 100 mg tablet RxNorm: 0994230 1 Tablet(s) PO BID 02/08/2018 02/14/2018 Inactive ceftriaxone 500 mg solution for injection RxNorm: 3706579 Inj 02/08/2018 02/08/2018 Inactive dapsone 25 mg tablet RxNorm: 082614 2 Tablet(s) PO daily 02/08/2018 02/12/2018 Inactive metoprolol succinate ER 100 mg tablet,extended release 24 hr RxNorm: 969646 TAKE ONE TABLET BY MOUTH ONCE DAILY 01/05/2018 05/18/2018 Inactive Synthroid 175 mcg tablet RxNorm: 734020 1 Tablet(s) PO daily 01/01/2018 03/31/2018 Inactive Synthroid 175 mcg tablet RxNorm: 601621 1 Tablet(s) PO daily 01/01/2018 12/31/2017 Inactive Myrbetriq 50 mg tablet,extended release RxNorm: 7953282 1 Tablet(s) PO daily 12/03/2017 01/01/2018 Inactive Zithromax Z-Oliver 250 mg tablet RxNorm: 101027 1 Tablet(s) PO UD 10/12/2017 10/16/2017 Inactive Tessalon Perles 100 mg capsule RxNorm: 089142 2 Capsule(s) PO TID as needed 10/12/2017 10/16/2017 Inactive prednisone 20 mg tablet RxNorm: 007502 2 Tablet(s) PO daily 10/12/2017 10/16/2017 Inactive cefdinir 300 mg capsule RxNorm: 987745 1 Capsule(s) PO BID 10/08/2017 10/07/2017 Inactive Synthroid 150 mcg tablet RxNorm: 093308 1 Tablet(s) PO daily in morning, except 1/2 Tablet PO Thu, Thu, take 30 minutes before meal 10/08/2017 04/04/2018 Inactive brand name only cefdinir 300 mg capsule RxNorm: 857455 1 Capsule(s) PO BID 10/08/2017 10/14/2017 Inactive Synthroid 150 mcg tablet RxNorm: 964092 1 Tablet(s) PO daily in morning, take 30 minutes before meal 10/06/2017 10/07/2017 Inactive brand name only cefdinir 300 mg capsule RxNorm: 152363 1 Capsule(s) PO BID 08/24/2017 08/30/2017 Inactive Zithromax Z-Oliver 250 mg tablet RxNorm: 828794 1 Tablet(s) PO UD 08/20/2017 08/19/2017 Inactive Zithromax Z-Oliver 250 mg tablet RxNorm: 557207 1 Tablet(s) PO UD 08/20/2017 08/24/2017 Inactive Synthroid 150 mcg tablet RxNorm: 061123 1 Tablet(s) PO daily in morning, take 30 minutes before meal 08/05/2017 08/04/2017 Inactive Synthroid 150 mcg tablet RxNorm: 243653 1 Tablet(s) PO daily in morning, take 30 minutes before meal 08/05/2017 10/05/2017 Inactive Coumadin 3 mg tablet RxNorm: 139675 1 Tablet(s) PO Thursday, , , and Thu- Managed by Dr. Bowman -Managed by Dr. Bowman 08/05/2017 05/03/2018 Inactive pantoprazole 40 mg tablet,delayed release RxNorm: 762750 1 Tablet(s) PO BID 07/08/2017 07/02/2018 Inactive pantoprazole 40 mg tablet,delayed release RxNorm: 643509 1 Tablet(s) PO BID 07/08/2017 07/07/2017 Inactive metoprolol succinate ER 100 mg tablet,extended release 24 hr RxNorm: 056919 TAKE ONE TABLET BY MOUTH ONCE DAILY 07/08/2017 01/04/2018 Inactive Coumadin 3 mg tablet RxNorm: 546763 1 Tablet(s) PO QPM -Managed by Dr. Bowman 07/06/2017 08/04/2017 Inactive Coumadin 3 mg tablet RxNorm: 339826 1 Tablet(s) PO QPM at 6:00pm Managed by Dr Bowman 1/2 pill on thursday and thursday, full pill other days 06/18/2017 07/05/2017 Inactive Voltaren 1 % topical gel RxNorm: 062517 2 TOP QID 06/18/2017 10/15/2017 Inactive Micro-K 10 10 mEq capsule,extended release RxNorm: 367626 1 Capsule(s) PO daily 05/08/2017 12/02/2017 Inactive Synthroid 137 mcg tablet RxNorm: 159666 1 Tablet(s) PO QAM 05/08/2017 08/04/2017 Inactive Dose increased 04/14/17 pravastatin 10 mg tablet RxNorm: 071511 1 Tablet(s) PO daily TAKE ONE TABLET BY MOUTH ONCE DAILY 05/08/2017 12/02/2017 Inactive losartan 25 mg tablet RxNorm: 509350 1 Tablet(s) PO daily TAKE ONE TABLET BY MOUTH ONCE DAILY 05/08/2017 06/07/2018 Inactive Namenda 10 mg tablet RxNorm: 114769 TAKE ONE TABLET BY MOUTH TWICE DAILY 05/07/2017 12/02/2017 Inactive Keflex 500 mg capsule RxNorm: 809794 1 Capsule(s) PO TID 04/27/2017 05/03/2017 Inactive Synthroid 137 mcg tablet RxNorm: 502083 1 Tablet(s) PO QAM 04/14/2017 04/13/2017 Inactive Vitamin D2 50,000 unit capsule RxNorm: 103532 1 Capsule(s) PO QW 04/14/2017 12/02/2017 Inactive Synthroid 137 mcg tablet RxNorm: 642027 1 Tablet(s) PO QAM 04/14/2017 05/07/2017 Inactive losartan 25 mg tablet RxNorm: 117659 TAKE ONE TABLET BY MOUTH ONCE DAILY 03/23/2017 05/07/2017 Inactive Synthroid 125 mcg tablet RxNorm: 859000 TAKE ONE TABLET BY MOUTH ONCE DAILY 03/12/2017 04/12/2017 Inactive ciprofloxacin 500 mg tablet RxNorm: 250206 1 Tablet(s) PO BID 2017 03/13/2017 Inactive prednisone 20 mg tablet RxNorm: 777683 2 Tablet(s) PO daily 03/03/2017 03/07/2017 Inactive tramadol 50 mg tablet RxNorm: 251322 1/2 Tablet(s) PO TID as needed 03/03/2017 12/02/2017 Inactive pravastatin 10 mg tablet RxNorm: 927726 TAKE ONE TABLET BY MOUTH ONCE DAILY 01/19/2017 05/07/2017 Inactive nortriptyline 10 mg capsule RxNorm: 893467 TAKE ONE CAPSULE BY MOUTH ONCE DAILY IN THE EVENING 01/14/2017 12/02/2017 Inactive Voltaren 1 % topical gel RxNorm: 018037 TOP QID 12/22/2016 02/19/2017 Inactive Voltaren 1 % topical gel RxNorm: 141419 TOP QID 12/22/2016 12/21/2016 Inactive prednisone 20 mg tablet RxNorm: 635256 2 Tablet(s) PO daily 12/19/2016 12/23/2016 Inactive cyclobenzaprine 5 mg tablet RxNorm: 631908 1/2 Tablet(s) PO BID as needed 12/19/2016 12/23/2016 Inactive Flector 1.3 % transdermal 12 hour patch RxNorm: 646892 1 Patch TOP every 12 hours as needed 12/19/2016 12/02/2017 Inactive losartan 25 mg tablet RxNorm: 341966 1 Tablet(s) PO daily TAKE ONE TABLET BY MOUTH ONCE DAILY 11/13/2016 03/22/2017 Inactive Namenda 10 mg tablet RxNorm: 101839 TAKE ONE TABLET BY MOUTH TWICE DAILY 10/28/2016 04/25/2017 Inactive nortriptyline 10 mg capsule RxNorm: 942925 TAKE ONE CAPSULE BY MOUTH ONCE DAILY IN THE EVENING 10/13/2016 01/10/2017 Inactive ceftriaxone 500 mg solution for injection RxNorm: 9292466 Inj 10/06/2016 10/06/2016 Inactive cefdinir 300 mg capsule RxNorm: 166883 1 Capsule(s) PO BID 10/06/2016 10/12/2016 Inactive prednisone 20 mg tablet RxNorm: 024768 2 Tablet(s) PO daily 10/06/2016 10/08/2016 Inactive ProAir RespiClick 90 mcg/actuation breath activated RxNorm: 9637627 2 INH TID x 3 days then one inhale tid x 3 days then prn shortness of breath 10/06/2016 11/04/2016 Inactive Kenalog 40 mg/mL suspension for injection RxNorm: 0412170 1 Milliliter(s) Inj 10/06/2016 10/06/2016 Inactive Myrbetriq 50 mg tablet,extended release RxNorm: 0136777 1 Tablet(s) PO daily 09/11/2016 11/12/2016 Inactive Namenda 10 mg tablet RxNorm: 377100 TAKE ONE TABLET BY MOUTH TWICE DAILY 07/25/2016 10/22/2016 Inactive hydrochlorothiazide 25 mg tablet RxNorm: 568695 1 Tablet(s) PO daily 07/25/2016 12/02/2017 Inactive Synthroid 125 mcg tablet RxNorm: 051727 TAKE ONE TABLET BY MOUTH ONCE DAILY 07/14/2016 03/10/2017 Inactive losartan 25 mg tablet RxNorm: 737972 TAKE ONE TABLET BY MOUTH ONCE DAILY 07/07/2016 11/12/2016 Inactive metoprolol succinate ER 100 mg tablet,extended release 24 hr RxNorm: 177974 1 Tablet(s) PO daily 06/16/2016 06/10/2017 Inactive nortriptyline 10 mg capsule RxNorm: 573967 Capsule(s) TAKE ONE CAPSULE BY MOUTH ONCE DAILY IN THE EVENING 06/09/2016 10/06/2016 Inactive Myrbetriq 50 mg tablet,extended release RxNorm: 6595524 1 Tablet(s) PO daily 05/21/2016 09/10/2016 Inactive doxycycline hyclate 100 mg tablet RxNorm: 435738 1 Tablet(s) PO BID 05/07/2016 05/13/2016 Inactive Carafate 100 mg/mL oral suspension RxNorm: 468601 10 Milliliter(s) PO QID 05/07/2016 12/02/2017 Inactive Kenalog 40 mg/mL suspension for injection RxNorm: 2403018 Milliliter(s) Inj 04/28/2016 04/28/2016 Inactive losartan 25 mg tablet RxNorm: 069037 TAKE ONE TABLET BY MOUTH ONCE DAILY 04/08/2016 07/06/2016 Inactive ciprofloxacin 500 mg tablet RxNorm: 622487 1 Tablet(s) PO BID 04/07/2016 04/13/2016 Inactive cyclobenzaprine 5 mg tablet RxNorm: 642679 1 Tablet(s) PO TID 04/07/2016 04/16/2016 Inactive Keflex 500 mg capsule RxNorm: 170098 1 Capsule(s) PO TID 04/03/2016 04/02/2016 Inactive Keflex 500 mg capsule RxNorm: 002935 1 Capsule(s) PO TID 04/03/2016 04/09/2016 Inactive losartan 25 mg tablet RxNorm: 081508 TAKE ONE TABLET BY MOUTH ONCE DAILY 03/06/2016 04/07/2016 Inactive nortriptyline 10 mg capsule RxNorm: 960396 TAKE ONE CAPSULE BY MOUTH ONCE DAILY IN THE EVENING 03/06/2016 06/03/2016 Inactive pravastatin 10 mg tablet RxNorm: 316469 TAKE ONE TABLET BY MOUTH ONCE DAILY 02/04/2016 01/18/2017 Inactive warfarin 4 mg tablet RxNorm: 481501 Tablet(s) PO q d except 5mg on tue 01/31/2016 06/17/2017 Inactive Myrbetriq 50 mg tablet,extended release RxNorm: 6996821 1 Tablet(s) PO daily 01/17/2016 05/15/2016 Inactive Namenda 10 mg tablet RxNorm: 265901 1 Tablet(s) PO BID 01/01/2016 06/28/2016 Inactive Myrbetriq 50 mg tablet,extended release RxNorm: 7297363 1 Tablet(s) PO daily 12/20/2015 12/20/2015 Inactive Synthroid 125 mcg tablet RxNorm: 736526 1 Tablet(s) PO daily 11/14/2015 07/10/2016 Inactive nortriptyline 10 mg capsule RxNorm: 961714 TAKE ONE CAPSULE BY MOUTH ONCE DAILY IN THE EVENING 11/05/2015 03/03/2016 Inactive Myrbetriq 50 mg tablet,extended release RxNorm: 6845162 1 Tablet(s) PO daily 10/01/2015 12/19/2015 Inactive Namenda 10 mg tablet RxNorm: 164762 1 Tablet(s) PO BID 08/30/2015 12/31/2015 Inactive Vesicare 10 mg tablet RxNorm: 347581 1 Tablet(s) PO daily 08/30/2015 09/30/2015 Inactive warfarin 4 mg tablet RxNorm: 116536 Tablet(s) PO 08/30/2015 01/30/2016 Inactive Synthroid 125 mcg tablet RxNorm: 836471 1 Tablet(s) PO daily 08/02/2015 11/13/2015 Inactive Synthroid 125 mcg tablet RxNorm: 790597 Tablet(s) PO 08/01/2015 08/01/2015 Inactive losartan 25 mg tablet RxNorm: 860957 1 Tablet(s) PO daily 07/31/2015 02/25/2016 Inactive pravastatin 10 mg tablet RxNorm: 707908 1 Tablet(s) PO daily 07/23/2015 01/18/2016 Inactive hydrochlorothiazide 25 mg tablet RxNorm: 611581 1 Tablet(s) PO daily 07/19/2015 07/12/2016 Inactive nortriptyline 10 mg capsule RxNorm: 667413 1 Capsule(s) PO QPM 07/03/2015 10/30/2015 Inactive metoprolol succinate ER 100 mg tablet,extended release 24 hr RxNorm: 502587 1 Tablet(s) PO daily 06/06/2015 05/30/2016 Inactive pravastatin 10 mg tablet RxNorm: 080397 1 Tablet(s) PO daily 01/22/2015 07/20/2015 Inactive aspirin 81 mg capsule,delayed release RxNorm: 902064 1 Capsule(s) PO daily 01/11/2015 02/09/2015 Inactive Fosamax 5 mg tablet RxNorm: 674612 1 Tablet(s) QW 01/11/2015 12/02/2017 Inactive oxybutynin chloride ER 10 mg tablet,extended release 24 hr RxNorm: 649056 1 Tablet(s) PO daily 01/11/2015 08/29/2015 Inactive Fosamax 70 mg tablet RxNorm: 366753 1 Tablet(s) PO QW No Start Date Active Claritin oral RxNorm: 18365 oral No Start Date Active Centrum oral RxNorm: oral No Start Date Active Myrbetriq 50 mg tablet,extended release RxNorm: 6363525 1 Tablet(s) PO daily No Start Date Active Calcium 600 + D(3) oral RxNorm: 774108 oral No Start Date Active Coumadin 4 mg tablet RxNorm: 886634 1 Tablet(s) PO daily on ,, No Start Date 06/07/2018 Inactive Vitamin D3 oral RxNorm: oral No Start Date 06/16/2018 Inactive pravastatin 10 mg tablet RxNorm: 472429 1 Tablet(s) PO daily No Start Date 01/21/2015 Inactive Aspirin Low Dose 81 mg tablet,delayed release RxNorm: 041638 1 Tablet(s) PO BIW on Thursday and Thursday No Start Date 06/16/2018 Inactive Tylenol PM oral RxNorm: 473391 oral No Start Date 04/07/2017 Inactive Vitamin D2 oral RxNorm: 4018 oral No Start Date 06/08/2018 Inactive Vitamin D2 50,000 unit capsule RxNorm: 964798 1 Capsule(s) PO QW No Start Date 04/13/2017 Inactive tramadol 50 mg tablet RxNorm: 987408 1 Tablet(s) PO TID as needed No Start Date 03/16/2018 Inactive Colace 100 mg capsule RxNorm: 5725254 Capsule(s) PO No Start Date 06/07/2018 Inactive furosemide 40 mg tablet RxNorm: 940354 1 Tablet(s) PO daily as needed No Start Date 07/12/2018 Inactive biotin oral RxNorm: oral No Start Date 06/16/2018 Inactive Micro-K 10 10 mEq capsule,extended release RxNorm: 128669 1 Capsule(s) PO daily No Start Date 05/07/2017 Inactive Synthroid 100 mcg tablet RxNorm: 593121 Tablet(s) PO No Start Date 07/31/2015 Inactive Vitamin B-12 oral RxNorm: oral No Start Date 06/16/2018 Inactive PreserVision AREDS 2 oral RxNorm: 2922677 oral No Start Date 06/07/2018 Inactive hydrochlorothiazide 25 mg tablet RxNorm: 544950 1 Tablet(s) PO daily No Start Date 07/18/2015 Inactive warfarin 2 mg tablet RxNorm: 467417 Tablet(s) PO No Start Date 08/29/2015 Inactive metoprolol succinate ER 100 mg tablet,extended release 24 hr RxNorm: 683671 1 Tablet(s) PO daily No Start Date 06/05/2015 Inactive warfarin 3 mg tablet RxNorm: 122833 Tablet(s) PO No Start Date 08/29/2015 Inactive Coumadin 3 mg tablet RxNorm: 830374 1 Tablet(s) PO QPM at 6:00pm Managed by Dr Bowman No Start Date 06/17/2017 Inactive Medication Administered Medication Codes Instructions Start Date Status Kenalog 40 mg/mL suspension for injection RxNorm: 5545132 2Milliliter 03/12/2018 No longer Active ceftriaxone 500 mg solution for injection RxNorm: 6929654 02/08/2018 No longer Active ceftriaxone 500 mg solution for injection RxNorm: 6810617 10/06/2016 No longer Active Kenalog 40 mg/mL suspension for injection RxNorm: 3114567 1Milliliter 10/06/2016 No longer Active Kenalog 40 mg/mL suspension for injection RxNorm: 5657993 Milliliter 04/28/2016 No longer Active Immunizations Vaccine [...] Localized edema ICD-10: R60.0 ICD-9: 782.3 05/24/2018 detention (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 of anticoagulants ICD-10: Z79.01 ICD-9: [...] NO Growth Day 2 05/27/2018 Comp Metabolic Ghm181 NA 142 mEq/L 05/24/2018 Comp Metabolic Vbq865 K 4.0 mEq/L 05/24/2018 Comp Metabolic Psv537 CL 104 mEq/L 05/24/2018 Comp Metabolic Akw379 CO2 30.0 mEq/L 05/24/2018 Comp Metabolic Cdw919 ANION GAP 12 05/24/2018 Comp Metabolic Gwd617 GLUCOSE 94 mg/dL 05/24/2018 Comp Metabolic Wax398 Creat 0.6 mg/dL 05/24/2018 Comp Metabolic Blb547 eGFR 97 ml/min/1.73m2 05/24/2018 Comp Metabolic Fhk535 BUN 12 mg/dL 05/24/2018 Comp Metabolic Xme374 B/C Ratio 19.4 Ratio 05/24/2018 Comp Metabolic Ivp915 CALCIUM 8.8 mg/dL 05/24/2018 Comp Metabolic Tom715 ALK PHOS 135 U/L 05/24/2018 Comp Metabolic Beo301 AST(SGOT) 18 U/L 05/24/2018 Comp Metabolic Lzz453 ALT(SGPT) 16 U/L 05/24/2018 Comp Metabolic Sus212 BILI T 0.4 mg/dL 05/24/2018 Comp Metabolic Rhs767 ALBUMIN 3.9 g/dL 05/24/2018 Comp Metabolic Ito953 TPRO 6.0 g/dL 05/24/2018 Comp Metabolic Xve131 GLOB 2.1 g/dL 05/24/2018 Comp Metabolic Lnq304 A/G Ratio 1.8 Ratio 05/24/2018 Comp Metabolic Kmb958 Osmo 283 mOsmo 05/24/2018 Pt Wej6031 PT 28.2 seconds 05/24/2018 Pt Imv9855 INR 2.6 05/24/2018 Pt Nxg5484 Low Intensity - 1.5-2.0 05/24/2018 Pt Ksu3754 Mod intensity - 2.0-3.0 05/24/2018 Pt Ung6927 Hi intensity - 3.0-4.0 05/24/2018 Cbc With [...] 96.3 fl 05/24/2018 Cbc With Differential Ord2 Ralls% 7.0 % 05/24/2018 Cbc With Differential Ord2 [...] 1.54 K/ul 05/24/2018 Cbc With Differential Ord2 Ralls ABS# 0.5 K/ul 05/24/2018 Cbc With Differential Ord2 Eos ABS# 0.4 K/ul 05/24/2018 Cbc With Differential Ord2 Baso ABS# 0.0 K/ul 05/24/2018 Tsh Ord6 TSH (3rd IS) 3.19 uIU/mL 10/06/2017 Free T4 Mds190 FREE T4 1.64 ng/dL 10/06/2017 Free T4 Xkb940 FREE T4 1.03 ng/dL 08/05/2017 Tsh Ord6 [...] Ord30 C/HDL 3.7 Ratio 04/09/2017 Free T4 Dby426 FREE T4 0.97 ng/dL 04/09/2017 Tibc Ord40 Iron 36 ug/dl 04/09/2017 Tibc Ord40 UIBC 281 ug/dL 04/09/2017 Tibc Ord40 TIBC 317 ug/dL 04/09/2017 Tibc Ord40 Fe-%Sat 11.4 % 04/09/2017 Comp Metabolic Uni203 NA 136 mEq/L 04/09/2017 Comp Metabolic Xug092 K 3.9 mEq/L 04/09/2017 Comp Metabolic Krn851 CL 98 mEq/L 04/09/2017 Comp Metabolic Jqy757 CO2 28.0 mEq/L 04/09/2017 Comp Metabolic Uky645 ANION GAP 14 04/09/2017 Comp Metabolic Jpf473 GLUCOSE 90 mg/dL 04/09/2017 Comp Metabolic Bst253 Creat 0.6 mg/dL 04/09/2017 Comp Metabolic Pak898 eGFR 102 ml/min/1.73m2 04/09/2017 Comp Metabolic Zvz977 BUN 9 mg/dL 04/09/2017 Comp Metabolic Ixd773 B/C Ratio 15.3 Ratio 04/09/2017 Comp Metabolic Bri387 CALCIUM 8.8 mg/dL 04/09/2017 Comp Metabolic Xyv161 ALK PHOS 102 U/L 04/09/2017 Comp Metabolic Pmk863 AST(SGOT) 18 U/L 04/09/2017 Comp Metabolic Atz204 ALT(SGPT) 14 U/L 04/09/2017 Comp Metabolic Jzo031 BILI T 0.4 mg/dL 04/09/2017 Comp Metabolic Sty947 ALBUMIN 3.9 g/dL 04/09/2017 Comp Metabolic Jeq923 TPRO 6.3 g/dL 04/09/2017 Comp Metabolic Mfz607 GLOB 2.4 g/dL 04/09/2017 Comp Metabolic Vpj217 A/G Ratio 1.7 Ratio 04/09/2017 Comp Metabolic Owq989 Osmo 270 mOsmo 04/09/2017 Vitamin D 25 Oh Dhs8437 VITAMIN D, 25 HYDROXY 34.31 ng/mL 04/09/2017 [...] 28.9 pg 04/09/2017 Cbc With Differential Ord2 Ralls% 8.8 % 04/09/2017 Cbc With Differential Ord2 [...] 1.22 K/ul 04/09/2017 Cbc With Differential Ord2 Ralls ABS# 0.7 K/ul 04/09/2017 Cbc With Differential Ord2 Eos ABS# 0.1 K/ul 04/09/2017 Cbc With Differential Ord2 Baso ABS# 0.0 K/ul 04/09/2017 Urine Culture Ucult Complete >100,000 col/ml aerobic growth sent to ref lab 03/05/2017 Pt Sli1271 PT 24.2 seconds 04/14/2016 Pt Omy1565 INR 2.3 04/14/2016 Pt Acb8608 Low Intensity - 1.5-2.0 04/14/2016 Pt Rls5054 Mod intensity - 2.0-3.0 04/14/2016 Pt Opi8241 Hi intensity - 3.0-4.0 04/14/2016 Pt Xfv2688 PT 31.3 seconds 04/10/2016 Pt Ald4100 INR 3.3 04/10/2016 Pt Gax5505 Low Intensity - 1.5-2.0 04/10/2016 Pt Ebx6588 Mod intensity - 2.0-3.0 04/10/2016 Pt Kmu7407 Hi intensity - 3.0-4.0 04/10/2016 C RAP A SC [id number] Strep A Negative 04/10/2016 Urine Culture Ucult Complete >100,000 col/ml aerobic growth sent to ref lab 04/04/2016 Comp Metabolic Hhd746 NA 136 mEq/L 04/03/2016 Comp Metabolic Lsb786 K 3.9 mEq/L 04/03/2016 Comp Metabolic Gse338 CL 99 mEq/L 04/03/2016 Comp Metabolic Ema866 CO2 32.0 mEq/L 04/03/2016 Comp Metabolic Yhg353 ANION GAP 9 04/03/2016 Comp Metabolic Txx985 GLUCOSE 88 mg/dL 04/03/2016 Comp Metabolic Oul629 Creat 0.6 mg/dL 04/03/2016 Comp Metabolic Ivd084 eGFR 93 ml/min/1.73m2 04/03/2016 Comp Metabolic Xui546 BUN 15 mg/dL 04/03/2016 Comp Metabolic Mls084 B/C Ratio 23.4 Ratio 04/03/2016 Comp Metabolic Rwy050 CALCIUM 8.7 mg/dL 04/03/2016 Comp Metabolic Gbt823 ALK PHOS 100 U/L 04/03/2016 Comp Metabolic Cpb081 AST(SGOT) 28 U/L 04/03/2016 Comp Metabolic Aua999 ALT(SGPT) 39 U/L 04/03/2016 Comp Metabolic Rpz707 BILI T 0.5 mg/dL 04/03/2016 Comp Metabolic Gze047 ALBUMIN 4.1 g/dL 04/03/2016 Comp Metabolic Uqf692 TPRO 6.6 g/dL 04/03/2016 Comp Metabolic Pft174 GLOB 2.5 g/dL 04/03/2016 Comp Metabolic Thn181 A/G Ratio 1.7 Ratio 04/03/2016 Comp Metabolic Urr272 Osmo 272 mOsmo 04/03/2016 Cbc With Differential [...] 29.0 pg 04/03/2016 Cbc With Differential Ord2 Ralls% 11.3 % 04/03/2016 Cbc With Differential Ord2 [...] 1.15 K/ul 04/03/2016 Cbc With Differential Ord2 Ralls ABS# 0.8 K/ul 04/03/2016 Cbc With Differential Ord2 Eos ABS# 0.2 K/ul 04/03/2016 Cbc With Differential Ord2 Baso ABS# 0.0 K/ul 04/03/2016 Tsh Ord6 hTSH II 3.06 uIU/mL 04/03/2016 Free T4 Fhs089 FREE T4 0.99 ng/dL 04/03/2016 Free T4 Iax921 FREE T4 0.81 ng/dL 07/31/2015 Comp Metabolic Dhb747 NA 136 mEq/L 07/31/2015 Comp Metabolic Hud849 K 3.8 mEq/L 07/31/2015 Comp Metabolic Via970 CL 97 mEq/L 07/31/2015 Comp Metabolic Kzf169 CO2 29.0 mEq/L 07/31/2015 Comp Metabolic Nle437 ANION GAP 14 07/31/2015 Comp Metabolic Aky616 GLUCOSE 90 mg/dL 07/31/2015 Comp Metabolic Grv025 Creat 0.7 mg/dL 07/31/2015 Comp Metabolic Esi027 eGFR 80 ml/min/1.73m2 07/31/2015 Comp Metabolic Lyn766 BUN 8 mg/dL 07/31/2015 Comp Metabolic Kfu959 B/C Ratio 11.0 Ratio 07/31/2015 Comp Metabolic Bgg737 CALCIUM 8.9 mg/dL 07/31/2015 Comp Metabolic Vsr334 ALK PHOS 102 U/L 07/31/2015 Comp Metabolic Ssx607 AST(SGOT) 22 U/L 07/31/2015 Comp Metabolic Ofk769 ALT(SGPT) 14 U/L 07/31/2015 Comp Metabolic Itl341 BILI T 0.5 mg/dL 07/31/2015 Comp Metabolic Hqe079 ALBUMIN 4.4 g/dL 07/31/2015 Comp Metabolic Kdw407 TPRO 6.7 g/dL 07/31/2015 Comp Metabolic Puq357 GLOB 2.3 g/dL 07/31/2015 Comp Metabolic Hxz712 A/G Ratio 1.9 Ratio 07/31/2015 Comp Metabolic Kkx088 Osmo 270 mOsmo 07/31/2015 Tsh Ord6 hTSH [...] Lipid Ord30 C/HDL 4.8 Ratio 07/31/2015 Pt [id number] PT 31.9 seconds 07/03/2015 Pt [id number] INR 3.2 07/03/2015 Pt Cml8670 Low Intensity - 1.5-2.0 07/03/2015 Pt Ble8717 Mod intensity - 2.0-3.0 07/03/2015 Pt [id number] Hi intensity - 3.0-4.0 07/03/2015 Review of [...] mastoids 04/08/2017 None Full Exam - General 1995 Ears/Nose/Throat external nose Overall: benign appearance 04/08/2017 [...] [id number] 06/08/2018 URINALYSIS NONAUTO W/O SCOPE CPT-4: 64954 05/25/2018 ADMIN INFLUENZA VIRUS VAC CPT-4: G0008 05/20/2018 FLU VACC PRSV FREE INC ANTIG CPT-4: 58146 05/20/2018 DRAIN/INJECT JOINT/BURSA CPT-4: 10258 03/23/2018 TRIAMCINOLONE ACET INJ NOS CPT-4: J3301 03/23/2018 DRAIN/INJECT JOINT/BURSA CPT-4: 10936 03/12/2018 TRIAMCINOLONE ACET INJ NOS CPT-4: J3301 03/12/2018 ROCEPHIN, PER 250 MG CPT- 4: J0696 02/08/2018 ADMIN INFLUENZA VIRUS VAC CPT-4: G0008 06/18/2017 FLU VACC PRSV FREE INC ANTIG CPT-4: 87204 06/18/2017 URINALYSIS NONAUTO W/O SCOPE CPT-4: 49288 04/27/2017 URINALYSIS NONAUTO W/O SCOPE CPT-4: 06957 2017 DRAIN/INJECT JOINT/BURSA CPT-4: 47286 03/03/2017 TRIAMCINOLONE ACET INJ NOS CPT-4: J3301 03/03/2017 TRIAMCINOLONE ACET INJ NOS CPT-4: J3301 10/06/2016 ROCEPHIN, PER 250 MG CPT- 4: J0696 10/06/2016 THER/PROPH/DIAG INJ SC/IM CPT-4: 21785 10/06/2016 TRIAMCINOLONE ACET INJ NOS CPT-4: J3301 04/28/2016 URINALYSIS NONAUTO W/O SCOPE CPT-4: 85391 04/03/2016 ADMIN INFLUENZA VIRUS VAC CPT-4: G0008 07/03/2015 FLU VACC PRSV FREE INC ANTIG CPT-4: 48733 07/03/2015 Vital Signs Date Vital 07/20/2018 Blood Pressure 1: 124/70 Code: 8480-6 Heart Rate 1: 76 bpm Height: SpO2: 95% Weight: 06/29/2018 Blood Pressure 1: 142/80 Code: 8480-6 BMI: 27.8 Code: 27479-5 Heart Rate 1: 89 bpm Height: 5'6" SpO2: 94% Weight: 172 lbs 06/08/2018 Blood Pressure 1: 144/66 Code: 8480-6 BMI: 27.9 Code: 68514-8 Heart Rate 1: 85 bpm Height: 5'6" SpO2: 97% Waist Measure (cm): 97 cm Weight: 173 lbs 05/24/2018 Blood Pressure 1: 128/72 Code: 8480-6 BMI: 27.9 Code: 10694-0 Heart Rate 1: 82 bpm Height: 5'6" SpO2: 92% Weight: 173 lbs 04/06/2018 Blood Pressure 1: 138/88 Code: 8480-6 Heart Rate 1: 86 bpm Height: SpO2: 96% Weight: 03/23/2018 Blood Pressure 1: 150/88 Code: 8480-6 Heart Rate 1: 80 bpm Height: SpO2: 96% Weight: 03/12/2018 Heart Rate 1: 90 bpm Height: Weight: 03/02/2018 Blood Pressure 1: 128/80 Code: 8480-6 BMI: 28.4 Code: 25593-7 Heart Rate 1: 83 bpm Height: 5'6" SpO2: 93% Weight: 176 lbs 02/08/2018 Blood Pressure 1: 142/80 Code: 8480-6 Heart Rate 1: 78 bpm Height: 5'6" SpO2: 94% 12/03/2017 Blood Pressure 1: 124/78 Code: 8480-6 BMI: 27.9 Code: 47462-9 Heart Rate 1: 70 bpm Height: 5'6" SpO2: 97% Weight: 173 lbs 10/27/2017 Blood Pressure 1: 126/60 Code: 8480-6 Heart Rate 1: 65 bpm Height: 5'6" SpO2: 98% Weight: 10/12/2017 Blood Pressure 1: 126/74 Code: 8480-6 BMI: 26.0 Code: 72050-8 Heart Rate 1: 80 bpm Height: 5'6" SpO2: 89% Weight: 161 lbs 10/06/2017 Blood Pressure 1: 126/70 Code: 8480-6 BMI: 27.2 Code: 07304-7 Heart Rate 1: 73 bpm Height: 5'6" SpO2: 97% Weight: 168 lbs 8 oz 08/05/2017 Blood Pressure 1: 152/78 Code: 8480-6 BMI: 27.1 Code: 15057-2 Heart Rate 1: 73 bpm Height: 5'6" SpO2: 98% Weight: 168 lbs 07/06/2017 Blood Pressure 1: 148/70 Code: 8480-6 BMI: 26.6 Code: 96976-0 Heart Rate 1: 80 bpm Height: 5'6" SpO2: 97% Weight: 165 lbs 06/18/2017 Blood Pressure 1: 132/68 Code: 8480-6 BMI: 26.8 Code: 08276-6 Heart Rate 1: 84 bpm Height: 5'6" [...] 1: 162/84 Code: 8480-6 BMI: 28.1 Code: 94182-5 Heart Rate 1: 98 bpm Height: 5'6" SpO2: 97% Weight: 174 lbs 03/03/2017 Blood Pressure 1: 154/88 Code: 8480-6 Heart Rate 1: 96 bpm Height: SpO2: 95% Weight: 01/05/2017 Blood Pressure 1: 142/78 Code: 8480-6 BMI: 28.9 Code: 93217-6 Heart Rate 1: 94 bpm Height: 5'6" SpO2: 95% Weight: 179 lbs 12/19/2016 Blood Pressure 1: 130/74 Code: 8480-6 Heart Rate 1: 91 bpm Height: 5'6" SpO2: 97% Weight: 11/13/2016 Blood Pressure 1: 152/82 Code: 8480-6 BMI: 28.4 Code: 59233-1 Heart Rate 1: 85 bpm Height: 5'6" SpO2: 96% Weight: 176 lbs 10/16/2016 Blood Pressure 1: 148/72 Code: 8480-6 BMI: 28.4 Code: 22825-6 Heart Rate 1: 90 bpm Height: 5'6" SpO2: 96% Weight: 176 lbs 10/06/2016 Blood Pressure 1: 150/80 Code: 8480-6 BMI: 28.4 Code: 88351-1 Heart Rate 1: 76 bpm Height: 5'6" SpO2: 97% Weight: 176 lbs 07/02/2016 Blood Pressure 1: 142/78 Code: 8480-6 BMI: 27.8 Code: 19915-6 Heart Rate 1: 85 bpm Height: 5'6" SpO2: 97% Weight: 172 lbs 05/21/2016 Blood Pressure 1: 166/80 Code: 8480-6 BMI: 27.9 Code: 83886-0 Heart Rate 1: 79 bpm Height: 5'6" SpO2: 98% Weight: 173 lbs 05/07/2016 Blood Pressure 1: 140/70 Code: 8480-6 BMI: 27.9 Code: 86803-0 Heart Rate 1: 82 bpm Height: 5'6" SpO2: 96% Weight: 173 lbs 04/28/2016 Blood Pressure 1: 128/86 Code: 8480-6 BMI: 27.4 Code: 12932-4 Heart Rate 1: 86 bpm Height: 5'6" SpO2: 96% Temperature: 36.1 (C) / 97.0 (F) Weight: 170 lbs 04/07/2016 Blood Pressure 1: 150/80 Code: 8480-6 Heart Rate 1: 94 bpm Height: SpO2: 95% Weight: 04/03/2016 Blood Pressure 1: 122/76 Code: 8480-6 BMI: 27.4 Code: 62267-6 Heart Rate 1: 84 bpm Height: 5'6" SpO2: 94% Weight: 170 lbs 01/31/2016 Blood Pressure 1: 124/82 Code: 8480-6 BMI: 27.8 Code: 35689-8 Heart Rate 1: 100 bpm Height: 5'6" SpO2: 97% Weight: 172 lbs 11/29/2015 Blood Pressure 1: 140/82 Code: 8480-6 Blood Pressure 1: 130/84 Code: 8480-6 BMI: 27.4 Code: 36863-8 Heart Rate 1: 97 bpm Height: 5'6" SpO2: 95% Weight: 170 lbs 10/01/2015 Blood Pressure 1: 130/80 Code: 8480-6 BMI: 27.4 Code: 69841-0 Heart Rate 1: 82 bpm Height: 5'6" SpO2: 97% Weight: 170 lbs 08/30/2015 Blood Pressure 1: 120/68 Code: 8480-6 BMI: 27.6 Code: 60209-1 Heart Rate 1: 91 bpm Height: 5'6" SpO2: 96% Weight: 171 lbs 07/31/2015 Blood Pressure 1: 180/80 Code: 8480-6 BMI: 27.4 Code: 08655-1 Heart Rate 1: 60 bpm Height: 5'6" SpO2: 94% Weight: 170 lbs 07/03/2015 Blood Pressure 1: 154/80 Code: 8480-6 BMI: 27.4 Code: 41657-7 Heart Rate 1: 98 bpm Height: 5'6" SpO2: 95% Weight: 170 lbs 04/10/2015 Blood Pressure 1: 138/72 Code: 8480-6 BMI: 27.8 Code: 02898-6 Heart Rate 1: 82 bpm Height: 5'6" SpO2: 98% Weight: 172 lbs 01/11/2015 Blood Pressure 1: 132/74 Code: 8480-6 BMI: 28.6 Code: 65741-6 Heart Rate 1: 88 bpm Height: 5'6" [...] data Encounters Encounter Performer Location Codes Date ([id number]) 00536 EST. PATIENT, LEVEL III Diagnosis: Atrophy of thyroid (acquired)[ICD10: E03.4] Diagnosis: Essential (primary) hypertension[ICD10: I10] Carleen Anaya MD, [facility] CPT-4: 29210 07/20/2018 ([id number]) 26527 EST. PATIENT, LEVEL IV Diagnosis: Essential (primary) hypertension[ICD10: I10] Diagnosis: Atrophy of thyroid (acquired)[ICD10: E03.4] Diagnosis: Other fatigue[ICD10: R53.83] Diagnosis: Other insomnia[ICD10: G47.09] [facility] CPT-4: 28155 06/29/2018 ([id number]) 41443 EST. PATIENT, LEVEL IV Diagnosis: Localized edema[ICD10: R60.0] Diagnosis: Muscle weakness (generalized)[ICD10: M62.81] Diagnosis: Dysuria[ICD10: R30.0] Diagnosis: detention (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 of anticoagulants[ICD10: Z79.01] Diagnosis: Essential (primary) hypertension[ICD10: I10] Mimi Anaya MD, [facility] CPT-4: 00255 05/24/2018 ([id number]) 91536 EST. PATIENT, LEVEL III Diagnosis: Lumbago with sciatica, right side[ICD10: M54.41] Diagnosis: Sciatica, right side[ICD10: M54.31] Carleen Anaya MD, [facility] CPT- 4: 66709 04/06/2018 ([id number]) 07616 EST. PATIENT, LEVEL III Diagnosis: Lumbago with sciatica, right side[ICD10: M54.41] Diagnosis: Sciatica, right side[ICD10: M54.31] Carleen Anaya MD, [facility] CPT- 4: 39626 03/23/2018 86511 EST. PATIENT, LEVEL III Diagnosis: Low back pain[ICD10: M54.5] Diagnosis: Sacroiliitis, not elsewhere classified[ICD10: M46.1] Wendi Anaya MD, [facility] CPT-4: 12483 03/12/2018 ([id number]) 48837 EST. PATIENT, LEVEL IV Diagnosis: Atrophy of thyroid (acquired)[ICD10: E03.4] Diagnosis: Essential (primary) hypertension[ICD10: I10] Diagnosis: Urge incontinence[ICD10: N39.41] Carleen Anaya MD, [facility] CPT-4: 61445 03/02/2018 ([id number]) 81741 EST. PATIENT, LEVEL III Diagnosis: Cellulitis of face[ICD10: L03.211] Mimi Anaya MD, [facility] CPT- 4: 74367 02/08/2018 ([id number]) 68792 EST. PATIENT, LEVEL IV Diagnosis: Atrophy of thyroid (acquired)[ICD10: E03.4] Diagnosis: Essential (primary) hypertension[ICD10: I10] Diagnosis: Urge incontinence[ICD10: N39.41] Carleen Anaya MD, [facility] CPT-4: 43121 12/03/2017 29802 EST. PATIENT, LEVEL IV Diagnosis: Essential (primary) hypertension[ICD10: I10] Diagnosis: Weakness[ICD10: R53.1] Diagnosis: Low back pain[ICD10: M54.5] Diagnosis: Other allergic rhinitis[ICD10: J30.89] Wendi Anaya MD, [facility] CPT- 4: 22210 10/27/2017 33147 EST. PATIENT, LEVEL IV Diagnosis: Pneumonia due to other specified bacteria[ICD10: J15.8] Diagnosis: Chronic systolic (congestive) heart failure[ICD10: I50.22] Wendi Anaya MD, [facility] CPT-4: 90999 10/12/2017 ([id number]) 85666 EST. PATIENT, LEVEL IV Diagnosis: Atrophy of thyroid (acquired)[ICD10: E03.4] Diagnosis: Nonscarring hair loss, unspecified[ICD10: L65.9] Diagnosis: Essential (primary) hypertension[ICD10: I10] Carleen Anaya MD, [facility] CPT-4: 86093 10/06/2017 ([id number]) 23743 EST. PATIENT, LEVEL IV Diagnosis: Atrophy of thyroid (acquired)[ICD10: E03.4] Diagnosis: Essential (primary) hypertension[ICD10: I10] Diagnosis: Localized edema[ICD10: R60.0] Carleen Aanya MD, [facility] CPT-4: 09346 08/05/2017 ([id number]) 31697 EST. PATIENT, LEVEL IV Diagnosis: Essential (primary) hypertension[ICD10: I10] Diagnosis: Weakness[ICD10: R53.1] Diagnosis: Other fecal abnormalities[ICD10: R19.5] Carleen Anaya MD, [facility] CPT-4: 83978 07/06/2017 ([id number]) 44351 EST. 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 PATIENT, LEVEL IV Diagnosis: Pain in right shoulder[ICD10: M25.511] Diagnosis: Weakness[ICD10: R53.1] Diagnosis: Other fatigue[ICD10: R53.83] Diagnosis: Other malaise[ICD10: R53.81] Wendi Anaya MD, [facility] CPT-4: 94765 05/11/2017 ([id number]) Miscellaneous no charge Diagnosis: Essential (primary) hypertension[ICD10: I10] Mimi Anaya MD, [facility] CPT-4: 96883 04/30/2017 ([id number]) 36529 EST. PATIENT, LEVEL III Diagnosis: Acute recurrent maxillary sinusitis[ICD10: J01.01] Diagnosis: Urinary tract infection, site not specified[ICD10: N39.0] Mimi Anaya MD, [facility] CPT-4: 80368 04/27/2017 ([id number]) 25453 EST. PATIENT, LEVEL IV Diagnosis: Atrophy of thyroid (acquired)[ICD10: E03.4] Diagnosis: Essential (primary) hypertension[ICD10: I10] Diagnosis: Iron deficiency[ICD10: E61.1] Diagnosis: Other specified heart block[ICD10: I45.5] Carleen Anaya MD, [facility] CPT-4: 19062 04/08/2017 86670 EST. PATIENT, LEVEL III Diagnosis: Low back pain[ICD10: M54.5] Diagnosis: Sacroiliitis, not elsewhere classified[ICD10: M46.1] Wendi Anaya MD, [facility] CPT-4: 96662 03/03/2017 ([id number]) 99995 EST. 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 PATIENT, LEVEL III Diagnosis: Cervicalgia[ICD10: M54.2] Diagnosis: Other muscle spasm[ICD10: M62.838] Wendi Anaya MD, [facility] CPT-4: 19098 12/19/2016 ([id number]) 87249 EST. PATIENT, LEVEL III Diagnosis: Essential (primary) hypertension[ICD10: I10] Diagnosis: Gastro-esophageal reflux disease without esophagitis[ICD10: K21.9] Carleen Anaya MD, [facility] CPT-4: 18455 11/13/2016 ([id number]) 40820 EST. PATIENT, LEVEL III Diagnosis: Pain in right shoulder[ICD10: M25.511] Diagnosis: Insomnia due to medical condition[ICD10: G47.01] Carleen Anaya MD, [facility] CPT-4: 03462 10/16/2016 ([id number]) 23826 EST. PATIENT, LEVEL IV Diagnosis: Pneumonia due to other specified bacteria[ICD10: J15.8] Diagnosis: Pain in right shoulder[ICD10: M25.511] Diagnosis: Cough[ICD10: R05] Carleen Anaya MD, [facility] CPT-4: 70303 10/06/2016 ([id number]) 27969 EST. PATIENT, LEVEL IV Diagnosis: Essential (primary) hypertension[ICD10: I10] Diagnosis: Personal history of other specified conditions[ICD10: Z87.898] Diagnosis: Unsteadiness on feet[ICD10: R26.81] Carleen Anaya MD, [facility] CPT- 4: 40237 07/02/2016 ([id number]) 69823 EST. PATIENT, LEVEL IV Diagnosis: Dysphagia, pharyngeal phase[ICD10: R13.13] Diagnosis: Urge incontinence[ICD10: N39.41] Diagnosis: Gastro-esophageal reflux disease without esophagitis[ICD10: K21.9] Carleen Anaya MD, [facility] CPT-4: 56021 05/21/2016 ([id number]) 40381 EST. PATIENT, LEVEL III Diagnosis: Gastro-esophageal reflux disease without esophagitis[ICD10: K21.9] Carleen Anaya MD, [facility] CPT-4: 87170 05/07/2016 ([id number]) 97276 EST. PATIENT, LEVEL III Diagnosis: Acute laryngopharyngitis[ICD10: J06.0] Diagnosis: Dysphagia, pharyngeal phase[ICD10: R13.13] Diagnosis: Allergic rhinitis due to pollen[ICD10: J30.1] Mimi Anaya MD, [facility] CPT-4: 95049 04/28/2016 ([id number]) Miscellaneous no charge Diagnosis: Acute laryngopharyngitis[ICD10: J06.0] Wendi Anaya MD, [facility] CPT- 4: 01199 04/10/2016 41596 EST. PATIENT, LEVEL IV Diagnosis: Cervicalgia[ICD10: M54.2] Diagnosis: Acute laryngopharyngitis[ICD10: J06.0] Diagnosis: meterman (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 of anticoagulants[ICD10: Z79.01] Diagnosis: Other cystitis without hematuria[ICD10: N30.80] Wendi Anaya MD, [facility] CPT-4: 22297 04/07/2016 ([id number]) 84430 EST. PATIENT, LEVEL IV Diagnosis: Essential (primary) hypertension[ICD10: I10] Diagnosis: Hypothyroidism, unspecified[ICD10: E03.9] Diagnosis: Other fatigue[ICD10: R53.83] Diagnosis: Urge incontinence[ICD10: N39.41] Mimi Anaya MD, [facility] CPT- 4: 28659 04/03/2016 ([id number]) 63713 EST. PATIENT, LEVEL IV Diagnosis: Essential (primary) hypertension[ICD10: I10] Diagnosis: Pain in right ankle and joints of right foot[ICD10: M25.571] Diagnosis: Dizziness and giddiness[ICD10: R42] Diagnosis: Tinnitus, bilateral[ICD10: H93.13] Mimi Anaya MD, [facility] CPT- 4: 30510 01/31/2016 ([id number]) 77624 EST. PATIENT, LEVEL IV Diagnosis: Essential (primary) hypertension[ICD10: I10] Diagnosis: Otalgia, right ear[ICD10: H92.01] Diagnosis: Allergic rhinitis due to pollen[ICD10: J30.1] Diagnosis: Hypothyroidism, unspecified[ICD10: E03.9] Mimi Anaya MD, [facility] CPT-4: 77301 11/29/2015 ([id number]) 69044 EST. PATIENT, LEVEL IV Diagnosis: Essential (primary) hypertension[ICD10: I10] Diagnosis: Urge incontinence[ICD10: N39.41] Diagnosis: Unspecified dementia without behavioral disturbance[ICD10: F03.90] Mimi Anaya MD, [facility] CPT-4: 25096 10/01/2015 [id number]) 52089 EST. PATIENT, LEVEL IV Diagnosis: Essential (primary) hypertension[ICD10: I10] Diagnosis: Hypothyroidism, unspecified[ICD10: E03.9] Diagnosis: Unspecified dementia without behavioral disturbance[ICD10: F03.90] Diagnosis: Urge incontinence[ICD10: N39.41] Mimi Anaya MD, [facility] CPT- 4: 22532 08/30/2015 ([id number]) 64581 EST. PATIENT, LEVEL IV Diagnosis: Essential (primary) hypertension[ICD10: I10] Diagnosis: Hypothyroidism, unspecified[ICD10: E03.9] Diagnosis: Hyperlipidemia, unspecified[ICD10: E78.5] Carleen Anaya MD, [facility] CPT-4: 28554 07/31/2015 ([id number]) 49501 EST. PATIENT, LEVEL IV Diagnosis: Essential (primary) hypertension[ICD10: I10] Diagnosis: meterman (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 of anticoagulants[ICD10: Z79.01] Diagnosis: Dizziness and giddiness[ICD10: R42] Carleen Anaya MD, [facility] CPT- 4: 27242 07/03/2015 ([id number]) 69948 EST. PATIENT, LEVEL IV Diagnosis: ESSENTIAL HYPERTENSION[ICD9: 401.9] Diagnosis: MACULAR DEGENERATION[ICD9: 362.50] Diagnosis: Peripheral vascular disease[ICD9: 443.9] Diagnosis: Neuropathy[ICD9: 355.9] Carleen Anaya MD, [facility] CPT-4: 73535 04/10/2015 ([id number]) OFFICE/OUTPATIENT VISIT NEW Diagnosis: ESSENTIAL HYPERTENSION[ICD9: 401.9] Diagnosis: HYPOTHYROIDISM[ICD9: 244.9] Diagnosis: URGE INCONTINENCE[ICD9: 788.31] Diagnosis: Constipation - functional[ICD9: 564.09] Carleen Anaya MD, [facility] CPT-4: 29837 01/11/2015 Plan of Care Planned Activity Notes [...] in blood pressure readings at home. 07/20/2018 Patient Education: Patient Medication Summary Completed [...] this time. 06/29/2018 Appointment: Carleen Anaya WPtel: [address] [place], [place] [address] (15 min) Moderate 06/29/2018 Patient Education: Patient [...] care surrogate. 06/08/2018 Appointment: Mimi Espinosa WPtel: [facility] [place] [id number] [facility] - Annual Wellness Visit 06/08/2018 Patient [...] edema. Weakness-fatigue- check labs Dysuria- check UA CBI-fclpcumzbb-rc changes in medications 05/24/2018 Appointment: Mimi Espinosa WPtel: [phone] (15 min) Moderate 05/24/2018 Patient Education: Patient Medication Summary Completed 05/24/2018 Appointment: Injection 05/20/2018 Patient Education: Patient Medication Summary Completed 05/20/2018 Visit Plan: Sciatica- pt to continue with aleve twice daily and cyclobenzaprine x 1 week. Pt is to call if the symptoms do not improve or if they worsen. referral to [facility] physical therapy. 04/06/2018 Appointment: Carleen Anaya WPtel: [facility]1 [facility] (15 min) Moderate 04/06/2018 Patient [...] do not improve or if they worsen. [id number] - andrew 03/23/2018 Appointment: Carleen Anaya WPtel: [facility] [address] (15 min) Moderate 03/23/2018 Patient Education: [...] of injection. 03/12/2018 Appointment: Wendi Uriostegui WPtel: [facility] (30 min) Complex 03/12/2018 Patient Education: [...] with myrbetric 03/02/2018 Appointment: Carleen Anaya WPtel: [facility]4 [address] (15 min) Moderate 03/02/2018 Patient Education: Patient Medication Summary Completed 03/02/2018 Appointment: (10 min) Simple 02/09/2018 Visit Plan: Cellulitis - start oral antibiotics as directed, return to clinic as directed, call for acute change in symptoms, worsening redness, warmth, discharge. 02/08/2018 Appointment: Mimi Espinosa WPtel: [address] [phone] [place] (15 min) Moderate [...] daily. 12/03/2017 Appointment: Carleen Anaya WPtel: [facility]9 [facility] (15 min) Moderate 12/03/2017 [...] spray. 10/27/2017 Appointment: Wendi Uriostegui WPtel: [facility]2 [facility] (15 min) Moderate 10/27/2017 Patient Education: Patient Medication Summary Completed 10/27/2017 Visit Plan: Pneumonia - Pt has been diagnosed with pneumonia by physical exam. A chest xray has been ordered as have antibiotics. The pt is aware of the diagnosis and the need for acute treatment of this illness. 10/12/2017 Appointment: Wendi Uriostegui WPtel: [address] [facility] (15 min) Moderate 10/12/2017 Patient Education: Patient [...] today. 10/06/2017 Appointment: Carleen Anaya WPtel: [address] [facility] (15 min) Moderate 10/06/2017 Patient Education: [...] prn. 08/05/2017 Appointment: Carleen Anaya WPtel: [address] [facility] (15 min) Moderate 08/05/2017 Patient Education: Patient Medication Summary Completed 08/05/2017 Appointment: Carleen Anaya WPtel: [address] [facility] (15 min) Moderate 07/14/2017 Visit Plan: [...] gel. 07/06/2017 Appointment: Carleen Anaya WPtel: [facility]7 [facility] (15 min) Moderate 07/06/2017 Patient Education: [...] shot today 06/18/2017 Appointment: Carleen Anaya WPtel[facility] ([facility] min) Moderate 06/18/2017 Patient Education: Patient Medication Summary Completed 06/18/2017 Appointment: Nurse Visit 05/12/2017 Care Plan: X-RAY EXAM OF SHOULDER LOINC : 36001-4 Pending 05/12/2017 Visit Plan: Weakness, fatigue, malaise - Discussed with Dr. Anaya - pt sent for IV fluids, will check labs and UA - will treat as indicated - pt is to keep her appointment with her environmental construction engineer for her ECHO and Carotid US. Pt is to follow up with her oncologist. Right shoulder pain after fall - will send for X-ray - The pt is to use prn antiinflammatories to manage acute pain. The patient is to call the office if the pain is worsening or does not improve. 05/11/2017 Appointment: [facility] (30 min) Complex 05/11/2017 Patient Education: [...] plan. 04/27/2017 Appointment: Mimi Espinosa WPtel: [address] [phone] (15 min) Moderate 04/27/2017 Patient Education: Patient [...] heart beat - recommended evaluation by her Fabrication Specialist - Dr. Butler - I attempted a phone call to the office of Dr. Butler, I had to leave a message on the answering machine. If i don't hear back from Dr. Butler's office, we will need to do a Holter monitor on patient. 04/08/2017 Appointment: [facility] An[facility]el[facility] (15 min) Moderate 04/08/2017 Patient Education: Patient Medication Summary Completed 04/08/2017 Care Plan: Referral Order SNOMED-CT : [id number] Pending 04/08/2017 Visit Plan: UTI - pt [...] 03/03/2017 Appointment: Wend[facility]ostegui [facility]Ptel[facility] (30 min) Complex 03/03/2017 Patient Education: [...] control. 01/05/2017 Appointment: Carleen Anaya WPtel: [address] [facility] (15 min) Moderate 01/05/2017 Patient Education: Patient Medication Summary Completed 01/05/2017 Visit Plan: Neck Pain- pt to start with aspercreme or biofreeze to neck three times daily and start neck exercises daily. Will send RX - The patient is to call the office if the pain is worsening or does not improve. 12/19/2016 Appointment: Wendi Uriostegui WPtel: [facility] (30 min) Complex 12/19/2016 Patient Education: [...] improving. 11/13/2016 Appointment: Carleen Anaya WPtel: [facility]4 [facility] (15 min) Moderate 11/13/2016 Patient Education: Patient Medication Summary Completed 11/13/2016 Visit Plan: Insomnia -extended release melatonin - you can take up to 10mg of melatonin sleepy time tea - - use warm milk in the tea. Right shoulder - pt to continue with therapy, anti-inflammatory 10/16/2016 Appointment: Carleen Anaya WPtel: [facility] (15 min) Moderate 10/16/2016 Patient Education: [...] pt. 10/06/2016 Appointment: Carleen Anaya WPtel: [facility]6 [facility] (15 min) Moderate 10/06/2016 Patient Education: Patient Medication Summary Completed 10/06/2016 Care Plan: X-RAY EXAM OF SHOULDER LOINC : 37841-4 Pending 10/06/2016 Appointment: Carleen Anaya WPtel: [address] [place], [place] [address] (30 min) Complex 10/01/2016 Referral: [facility] WPtel: [address] [facility] Patient informed. Completed 07/08/2016 Visit [...] discussed therapy. 07/02/2016 Appointment: Carleen Anaya WPtel: [address] [place], [place] [address] (15 min) Moderate 07/02/2016 Patient Education: Patient Medication Summary Completed 07/02/2016 Care Plan: Referral Order SNOMED-CT : [id number] Pending 07/02/2016 Visit Plan: Hypertension - well [...] planning on getting a flu shot at [facility] and she is due for another pneumovax- last pneumovax was in 2008 - so she can have pneumovax now and the prevnar in 2017 05/21/2016 Appointment: Carleen Anaya WPtel: [address] [place], [place] [phone] (15 min) Moderate 05/21/2016 Patient Education: Patient Medication Summary Completed 05/21/2016 Referral: [facility] [id number] Referral Completed 05/12/2016 Visit Plan: Esophageal Reflux [...] daily 05/07/2016 Appointment: Carleen Anaya WPtel: [phone] (15 min) Moderate 05/07/2016 Patient Education: Patient Medication Summary Completed 05/07/2016 Appointment: Mimi Espinosa WPtel: [facility] [address] (30 min) Complex 05/01/2016 Visit Plan: [...] Kenalog injection today in the office Sore nadtrt-xsrusfbqe-rxmwi dexilant-refer to Dr Del Real for evaluation 04/28/2016 Appointment: Mimi Espinosa WPtel: [facility] [place] [id number] (30 min) Complex 04/28/2016 Patient Education: Patient [...] switched. 04/07/2016 Appointment: Wendi Uriostegui WPtel: [id number] [facility] 04/07/2016 Patient Education: [...] atigue-check labs including UA-culture if positive Urge crhjigynaphg-wjjjlysuc-ssbys UA with C&S 04/03/2016 Appointment: [facility]spinosa [id number] (30 min) Complex 04/03/2016 Patient Education: Patient Medication Summary Completed 04/03/2016 Visit Plan: Hypertension - well controlled - continue with current medications, continue with no added salt diet. Pt has been encouraged to exercise daily. The pt has been advised to call the office if there are any acute concerns about change in blood pressure readings at home. Bdmjxgdpq-aznoevix-qvtwkwce MRI brain Right ankle lzyd-hxtgzmw-mwpn right ankle- plan to refer to physical therapy if appropriate 01/31/2016 Appointment: Mimi Espinosa WPtel: [phone] (30 min) Complex 01/31/2016 Patient Education: [...] 07/31/2015 Care Plan: Referral Order SNOMED-CT : [id number] Ordered 07/31/2015 Visit Plan: Hypertension - uncontrolled [...] on Nortryptyline 07/03/2015 Appointment: Carleen Anaya WPtel: [address] [place], [place] [id number] (15 min) Moderate 07/03/2015 Patient Education: Patient [...] 01/11/2015 [phone] [place] Referral Appointment Requested Referral: External, Ordering Provider Referral Appointment Requested Referral: External, Ordering Provider Referral Relationship Referral: [facility] Referral Appointment Requested Instructions Comment Flonase 1 [...] planning on getting a flu shot at [facility] and she is due for another pneumovax- last pneumovax was in 2008 - so she can have pneumovax now and the prevnar in 2017 MYRBETRIQ-SAMPLES 1 DAILY . Hypertension - well [...] heart beat - recommended evaluation by her Fabrication Specialist - Dr. Butler - I attempted a [...] pain occurs at the site of injection. DEXILANT 60MG DAILY . Allergies - chronic [...] Kenalog injection today in the office Sore zndkrg-nhbxsxisu-mczii dexilant-refer to Dr Del Real for evaluation extended release melatonin - you can take [...] Fatigue-check labs including UA-culture if positive Urge wfpbjfxitmuc-sfvdzupbw-jiqpv UA with C&S add z-pack, continue cefdinir [...] edema. Weakness-fatigue- check labs Dysuria- check UA RFF-dhmaygxibh-mt changes in medications . Hypertension - well controlled - continue with current medications, continue with no added salt diet. Pt has been encouraged to exercise daily. The pt has been advised to call the office if there are any acute concerns about change in blood pressure readings at home. Worcrdxtw-lrjunwvk-miyspkgd MRI brain Right ankle kuzs-oqpfjxs-zvqn right ankle-plan to refer to physical therapy [...] if they worsen. referral to [facility] physical therapy. . Hypertension - well [...] do not improve or if they worsen. [id number] - kenalog Stop Oxybutynin chloride ER. Start [...] DOPA paperwork for health care surrogate. . Weakness, fatigue, malaise - Discussed with Dr. Anaya - pt sent for IV fluids, will check labs and UA - will treat as indicated - pt is to keep her appointment with her environmental construction engineer for her ECHO and Carotid US. Pt [...] gram four times daily . Hypertension - uncontrolled - the patient's [...] - recommended pt to start on Nortryptyline Discuss with Dr. Bowman to switch warfarin [...] feet elevated at night to reduce swelling. Power Pudding: equal parts of prune juice, [...] treatment plan and call if symptoms worsen. . Hypertension - uncontrolled - the patient's [...]
--- OUTSIDE RECORDS SUMMARY | 2019-01-01 12:41 | XMS REPORT | CCD ---
Author Author [facility] Organization [facility] Address [address] [place] [address] Phone Care Team Providers Care Certified Caregiver Name Role Phone PP Unavailable CCM Unavailable Summary Purpose Interface Exchange Insurance Providers Payer name Policy type / Coverage type Covered libertarian ID Effective Begin Date Effective End Date WPS Medicare Part B Medicare Part B [id number] Unknown Unknown [facility] Medicare Part B [id number] Unknown Unknown Family history Father Diagnosis Age At Onset Cancer Unknown Arthritis Unknown Mother Diagnosis Age At Onset Breast cancer Unknown Arthritis Unknown Social History Social History Element Codes Description Effective Dates Alcohol history Unknown occasionally drinks alcohol 06/08/2018 Frequency of drinks SNOMED CT: 573426481 Drinks rarely 06/08/2018 Marital status Unknown 01/11/2015 Number of children Unknown 3 01/11/2015 Employment Unknown Retired 01/11/[address]: 8982465 Quit over 10 years ago 1950 01/11/[address]: 283754779 Never drinks alcohol 01/11/2015 Allergies, Adverse Reactions, Alerts Substance Reaction Codes Entered Date Inactivated Date Status * OTHER REACTION - SEE ANSWER BOX vancogein red Unknown 01/11/2015 No Inactive Date Active CODEINE RxNorm: 2670 01/11/2015 No Inactive Date Active demerol RxNorm: 482488 08/30/2015 No Inactive Date Active hydrocodone Unknown [...] ICD-9: 782.3 ICD-10: R60.0 Active 08/05/2017 Unknown snf (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 of anticoagulants ICD-9: V58.61 ICD-10: [...] edema ICD-9: 782.3 ICD-10: R60.0 08/05/2017 Active snf (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 of anticoagulants ICD-9: V58.61 ICD-10: [...] Start Date Stop Date Status Fill Instructions furosemide 40 mg tablet RxNorm: 273697 1 Tablet(s) PO 2 times weekly with song roberto per dr butler 07/13/2018 No Stop Date Active Synthroid 200 mcg tablet RxNorm: 293777 TAKE ONE TABLET BY MOUTH ON THURSDAY, THURSDAY, AND Thursday07/13/2018 No Stop Date Active Vitamin D3 400 unit capsule RxNorm: 208504 1 Capsule(s) PO daily 06/17/2018 No Stop Date Active Aspirin Low Dose 81 mg tablet,delayed release RxNorm: 588314 1 Tablet(s) PO BIW on Thursday and Thursday06/17/2018 No Stop Date Active biotin 1,000 mcg chewable tablet RxNorm: 0625255 1 Tablet(s) PO daily 06/17/2018 No Stop Date Active Vitamin B-12 500 mcg tablet RxNorm: 663756 1 Tablet(s) PO daily 06/17/2018 No Stop Date Active Colace 100 mg capsule RxNorm: 2091669 1 Capsule(s) PO QHS 06/08/2018 No Stop Date Active Coumadin 3 mg tablet RxNorm: 075224 1 Tablet(s) PO daily x5 days and 2 mg x2 days -Managed by Dr. Bowman 06/08/2018 No Stop Date Active Keflex 500 mg capsule RxNorm: 107257 1 Capsule(s) PO TID 05/25/2018 05/31/2018 Inactive metoprolol succinate ER 100 mg tablet,extended release 24 hr RxNorm: 485334 Tablet(s) TAKE ONE TABLET BY MOUTH ONCE DAILY 05/19/2018 No Stop Date Active Coumadin 3 mg tablet RxNorm: 622110 1 Tablet(s) PO daily -Managed by Dr. Bowman 05/04/2018 06/07/2018 Inactive Synthroid 175 mcg tablet RxNorm: 935574 TAKE 1 TABLET BY MOUTH ONCE DAILY 04/06/2018 06/07/2018 Inactive cyclobenzaprine 5 mg tablet RxNorm: 354991 1/2 Tablet(s) PO TID 04/06/2018 04/15/2018 Inactive Synthroid 175 mcg tablet RxNorm: 979463 1 Tablet(s) PO 4 times a week Thu04/05/2018 09/01/2018 Active alternate with 175mcg order Synthroid 200 mcg tablet RxNorm: 923656 1 Tablet(s) PO TIW Rhonda Munoz 04/05/2018 07/12/2018 Inactive brand name only- Alternate with 175mcg dose schedule cyclobenzaprine 5 mg tablet RxNorm: 871866 1/2 Tablet(s) PO TID 03/23/2018 04/01/2018 Inactive tramadol 50 mg tablet RxNorm: 129386 1 Tablet(s) PO TID as needed 03/17/2018 No Stop Date Active Kenalog 40 mg/mL suspension for injection RxNorm: 7894385 2 Milliliter(s) Inj 03/12/2018 03/12/2018 Inactive prednisone 20 mg tablet RxNorm: 968071 2 Tablet(s) PO daily 03/11/2018 03/10/2018 Inactive prednisone 20 mg tablet RxNorm: 361286 2 Tablet(s) PO daily 03/11/2018 03/15/2018 Inactive losartan 25 mg tablet RxNorm: 454208 TAKE ONE TABLET BY MOUTH ONCE DAILY 02/16/2018 No Stop Date Active doxycycline hyclate 100 mg tablet RxNorm: 3582205 1 Tablet(s) PO BID 02/08/2018 02/14/2018 Inactive ceftriaxone 500 mg solution for injection RxNorm: 1041359 Inj 02/08/2018 02/08/2018 Inactive dapsone 25 mg tablet RxNorm: 432557 2 Tablet(s) PO daily 02/08/2018 02/12/2018 Inactive metoprolol succinate ER 100 mg tablet,extended release 24 hr RxNorm: 251374 TAKE ONE TABLET BY MOUTH ONCE DAILY 01/05/2018 05/18/2018 Inactive Synthroid 175 mcg tablet RxNorm: 079223 1 Tablet(s) PO daily 01/01/2018 03/31/2018 Inactive Synthroid 175 mcg tablet RxNorm: 611847 1 Tablet(s) PO daily 01/01/2018 12/31/2017 Inactive Myrbetriq 50 mg tablet,extended release RxNorm: 4943309 1 Tablet(s) PO daily 12/03/2017 01/01/2018 Inactive Zithromax Z-Oliver 250 mg tablet RxNorm: 371186 1 Tablet(s) PO UD 10/12/2017 10/16/2017 Inactive Tessalon Perles 100 mg capsule RxNorm: 076684 2 Capsule(s) PO TID as needed 10/12/2017 10/16/2017 Inactive prednisone 20 mg tablet RxNorm: 699052 2 Tablet(s) PO daily 10/12/2017 10/16/2017 Inactive cefdinir 300 mg capsule RxNorm: 182443 1 Capsule(s) PO BID 10/08/2017 10/07/2017 Inactive Synthroid 150 mcg tablet RxNorm: 655225 1 Tablet(s) PO daily in morning, except 1/2 Tablet PO Thu, Sat, take 30 minutes before meal 10/08/2017 04/04/2018 Inactive brand name only cefdinir 300 mg capsule RxNorm: 579681 1 Capsule(s) PO BID 10/08/2017 10/14/2017 Inactive Synthroid 150 mcg tablet RxNorm: 090163 1 Tablet(s) PO daily in morning, take 30 minutes before meal 10/06/2017 10/07/2017 Inactive brand name only cefdinir 300 mg capsule RxNorm: 291694 1 Capsule(s) PO BID 08/24/2017 08/30/2017 Inactive Zithromax Z-Oliver 250 mg tablet RxNorm: 246403 1 Tablet(s) PO UD 08/20/2017 08/19/2017 Inactive Zithromax Z-Oliver 250 mg tablet RxNorm: 058351 1 Tablet(s) PO UD 08/20/2017 08/24/2017 Inactive Synthroid 150 mcg tablet RxNorm: 131735 1 Tablet(s) PO daily in morning, take 30 minutes before meal 08/05/2017 08/04/2017 Inactive Synthroid 150 mcg tablet RxNorm: 214865 1 Tablet(s) PO daily in morning, take 30 minutes before meal 08/05/2017 10/05/2017 Inactive Coumadin 3 mg tablet RxNorm: 740876 1 Tablet(s) PO Thursday, , , and Sat- Managed by Dr. Bowman -Managed by Dr. Bowman 08/05/2017 05/03/2018 Inactive pantoprazole 40 mg tablet,delayed release RxNorm: 748404 1 Tablet(s) PO BID 07/08/2017 07/02/2018 Inactive pantoprazole 40 mg tablet,delayed release RxNorm: 426497 1 Tablet(s) PO BID 07/08/2017 07/07/2017 Inactive metoprolol succinate ER 100 mg tablet,extended release 24 hr RxNorm: 524046 TAKE ONE TABLET BY MOUTH ONCE DAILY 07/08/2017 01/04/2018 Inactive Coumadin 3 mg tablet RxNorm: 967101 1 Tablet(s) PO QPM -Managed by Dr. Bowman 07/06/2017 08/04/2017 Inactive Coumadin 3 mg tablet RxNorm: 684440 1 Tablet(s) PO QPM at 6:00pm Managed by Dr Bowman 1/2 pill on thursday and thursday, full pill other days 06/18/2017 07/05/2017 Inactive Voltaren 1 % topical gel RxNorm: 823061 2 TOP QID 06/18/2017 10/15/2017 Inactive Micro-K 10 10 mEq capsule,extended release RxNorm: 243652 1 Capsule(s) PO daily 05/08/2017 12/02/2017 Inactive Synthroid 137 mcg tablet RxNorm: 279782 1 Tablet(s) PO QAM 05/08/2017 08/04/2017 Inactive Dose increased 04/14/17 pravastatin 10 mg tablet RxNorm: 784082 1 Tablet(s) PO daily TAKE ONE TABLET BY MOUTH ONCE DAILY 05/08/2017 12/02/2017 Inactive losartan 25 mg tablet RxNorm: 547602 1 Tablet(s) PO daily TAKE ONE TABLET BY MOUTH ONCE DAILY 05/08/2017 06/07/2018 Inactive Namenda 10 mg tablet RxNorm: 728199 TAKE ONE TABLET BY MOUTH TWICE DAILY 05/07/2017 12/02/2017 Inactive Keflex 500 mg capsule RxNorm: 506521 1 Capsule(s) PO TID 04/27/2017 05/03/2017 Inactive Synthroid 137 mcg tablet RxNorm: 876126 1 Tablet(s) PO QAM 04/14/2017 04/13/2017 Inactive Vitamin D2 50,000 unit capsule RxNorm: 000493 1 Capsule(s) PO QW 04/14/2017 12/02/2017 Inactive Synthroid 137 mcg tablet RxNorm: 575254 1 Tablet(s) PO QAM 04/14/2017 05/07/2017 Inactive losartan 25 mg tablet RxNorm: 874247 TAKE ONE TABLET BY MOUTH ONCE DAILY 03/23/2017 05/07/2017 Inactive Synthroid 125 mcg tablet RxNorm: 126182 TAKE ONE TABLET BY MOUTH ONCE DAILY 03/12/2017 04/12/2017 Inactive ciprofloxacin 500 mg tablet RxNorm: 298384 1 Tablet(s) PO BID 2017 03/13/2017 Inactive prednisone 20 mg tablet RxNorm: 566167 2 Tablet(s) PO daily 03/03/2017 03/07/2017 Inactive tramadol 50 mg tablet RxNorm: 057828 1/2 Tablet(s) PO TID as needed 03/03/2017 12/02/2017 Inactive pravastatin 10 mg tablet RxNorm: 600761 TAKE ONE TABLET BY MOUTH ONCE DAILY 01/19/2017 05/07/2017 Inactive nortriptyline 10 mg capsule RxNorm: 016846 TAKE ONE CAPSULE BY MOUTH ONCE DAILY IN THE EVENING 01/14/2017 12/02/2017 Inactive Voltaren 1 % topical gel RxNorm: 415398 TOP QID 12/22/2016 02/19/2017 Inactive Voltaren 1 % topical gel RxNorm: 034184 TOP QID 12/22/2016 12/21/2016 Inactive prednisone 20 mg tablet RxNorm: 115092 2 Tablet(s) PO daily 12/19/2016 12/23/2016 Inactive cyclobenzaprine 5 mg tablet RxNorm: 437024 1/2 Tablet(s) PO BID as needed 12/19/2016 12/23/2016 Inactive Flector 1.3 % transdermal 12 hour patch RxNorm: 614469 1 Patch TOP every 12 hours as needed 12/19/2016 12/02/2017 Inactive losartan 25 mg tablet RxNorm: 623563 1 Tablet(s) PO daily TAKE ONE TABLET BY MOUTH ONCE DAILY 11/13/2016 03/22/2017 Inactive Namenda 10 mg tablet RxNorm: 449805 TAKE ONE TABLET BY MOUTH TWICE DAILY 10/28/2016 04/25/2017 Inactive nortriptyline 10 mg capsule RxNorm: 289341 TAKE ONE CAPSULE BY MOUTH ONCE DAILY IN THE EVENING 10/13/2016 01/10/2017 Inactive ceftriaxone 500 mg solution for injection RxNorm: 9000606 Inj 10/06/2016 10/06/2016 Inactive cefdinir 300 mg capsule RxNorm: 496071 1 Capsule(s) PO BID 10/06/2016 10/12/2016 Inactive prednisone 20 mg tablet RxNorm: 101893 2 Tablet(s) PO daily 10/06/2016 10/08/2016 Inactive ProAir RespiClick 90 mcg/actuation breath activated RxNorm: 3388235 2 INH TID x 3 days then one inhale tid x 3 days then prn shortness of breath 10/06/2016 11/04/2016 Inactive Kenalog 40 mg/mL suspension for injection RxNorm: 8094668 1 Milliliter(s) Inj 10/06/2016 10/06/2016 Inactive Myrbetriq 50 mg tablet,extended release RxNorm: 7901666 1 Tablet(s) PO daily 09/11/2016 11/12/2016 Inactive Namenda 10 mg tablet RxNorm: 301976 TAKE ONE TABLET BY MOUTH TWICE DAILY 07/25/2016 10/22/2016 Inactive hydrochlorothiazide 25 mg tablet RxNorm: 101723 1 Tablet(s) PO daily 07/25/2016 12/02/2017 Inactive Synthroid 125 mcg tablet RxNorm: 223790 TAKE ONE TABLET BY MOUTH ONCE DAILY 07/14/2016 03/10/2017 Inactive losartan 25 mg tablet RxNorm: 357253 TAKE ONE TABLET BY MOUTH ONCE DAILY 07/07/2016 11/12/2016 Inactive metoprolol succinate ER 100 mg tablet,extended release 24 hr RxNorm: 119092 1 Tablet(s) PO daily 06/16/2016 06/10/2017 Inactive nortriptyline 10 mg capsule RxNorm: 934958 Capsule(s) TAKE ONE CAPSULE BY MOUTH ONCE DAILY IN THE EVENING 06/09/2016 10/06/2016 Inactive Myrbetriq 50 mg tablet,extended release RxNorm: 6933474 1 Tablet(s) PO daily 05/21/2016 09/10/2016 Inactive doxycycline hyclate 100 mg tablet RxNorm: 882033 1 Tablet(s) PO BID 05/07/2016 05/13/2016 Inactive Carafate 100 mg/mL oral suspension RxNorm: 431482 10 Milliliter(s) PO QID 05/07/2016 12/02/2017 Inactive Kenalog 40 mg/mL suspension for injection RxNorm: 2944055 Milliliter(s) Inj 04/28/2016 04/28/2016 Inactive losartan 25 mg tablet RxNorm: 942790 TAKE ONE TABLET BY MOUTH ONCE DAILY 04/08/2016 07/06/2016 Inactive ciprofloxacin 500 mg tablet RxNorm: 501684 1 Tablet(s) PO BID 04/07/2016 04/13/2016 Inactive cyclobenzaprine 5 mg tablet RxNorm: 862063 1 Tablet(s) PO TID 04/07/2016 04/16/2016 Inactive Keflex 500 mg capsule RxNorm: 766111 1 Capsule(s) PO TID 04/03/2016 04/02/2016 Inactive Keflex 500 mg capsule RxNorm: 776066 1 Capsule(s) PO TID 04/03/2016 04/09/2016 Inactive losartan 25 mg tablet RxNorm: 422218 TAKE ONE TABLET BY MOUTH ONCE DAILY 03/06/2016 04/07/2016 Inactive nortriptyline 10 mg capsule RxNorm: 359359 TAKE ONE CAPSULE BY MOUTH ONCE DAILY IN THE EVENING 03/06/2016 06/03/2016 Inactive pravastatin 10 mg tablet RxNorm: 074210 TAKE ONE TABLET BY MOUTH ONCE DAILY 02/04/2016 01/18/2017 Inactive warfarin 4 mg tablet RxNorm: 729229 Tablet(s) PO q d except 5mg on tue 01/31/2016 06/17/2017 Inactive Myrbetriq 50 mg tablet,extended release RxNorm: 0963622 1 Tablet(s) PO daily 01/17/2016 05/15/2016 Inactive Namenda 10 mg tablet RxNorm: 842158 1 Tablet(s) PO BID 01/01/2016 06/28/2016 Inactive Myrbetriq 50 mg tablet,extended release RxNorm: 6587947 1 Tablet(s) PO daily 12/20/2015 12/20/2015 Inactive Synthroid 125 mcg tablet RxNorm: 972537 1 Tablet(s) PO daily 11/14/2015 07/10/2016 Inactive nortriptyline 10 mg capsule RxNorm: 725046 TAKE ONE CAPSULE BY MOUTH ONCE DAILY IN THE EVENING 11/05/2015 03/03/2016 Inactive Myrbetriq 50 mg tablet,extended release RxNorm: 6981908 1 Tablet(s) PO daily 10/01/2015 12/19/2015 Inactive Namenda 10 mg tablet RxNorm: 290888 1 Tablet(s) PO BID 08/30/2015 12/31/2015 Inactive Vesicare 10 mg tablet RxNorm: 145329 1 Tablet(s) PO daily 08/30/2015 09/30/2015 Inactive warfarin 4 mg tablet RxNorm: 471653 Tablet(s) PO 08/30/2015 01/30/2016 Inactive Synthroid 125 mcg tablet RxNorm: 308401 1 Tablet(s) PO daily 08/02/2015 11/13/2015 Inactive Synthroid 125 mcg tablet RxNorm: 952077 Tablet(s) PO 08/01/2015 08/01/2015 Inactive losartan 25 mg tablet RxNorm: 997781 1 Tablet(s) PO daily 07/31/2015 02/25/2016 Inactive pravastatin 10 mg tablet RxNorm: 566162 1 Tablet(s) PO daily 07/23/2015 01/18/2016 Inactive hydrochlorothiazide 25 mg tablet RxNorm: 259107 1 Tablet(s) PO daily 07/19/2015 07/12/2016 Inactive nortriptyline 10 mg capsule RxNorm: 979596 1 Capsule(s) PO QPM 07/03/2015 10/30/2015 Inactive metoprolol succinate ER 100 mg tablet,extended release 24 hr RxNorm: 150794 1 Tablet(s) PO daily 06/06/2015 05/30/2016 Inactive pravastatin 10 mg tablet RxNorm: 854091 1 Tablet(s) PO daily 01/22/2015 07/20/2015 Inactive aspirin 81 mg capsule,delayed release RxNorm: 789990 1 Capsule(s) PO daily 01/11/2015 02/09/2015 Inactive Fosamax 5 mg tablet RxNorm: 012595 1 Tablet(s) QW 01/11/2015 12/02/2017 Inactive oxybutynin chloride ER 10 mg tablet,extended release 24 hr RxNorm: 466757 1 Tablet(s) PO daily 01/11/2015 08/29/2015 Inactive Fosamax 70 mg tablet RxNorm: 472955 1 Tablet(s) PO QW No Start Date Active Claritin oral RxNorm: 56416 oral No Start Date Active Centrum oral RxNorm: oral No Start Date Active Myrbetriq 50 mg tablet,extended release RxNorm: 3606963 1 Tablet(s) PO daily No Start Date Active Calcium 600 + D(3) oral RxNorm: 011805 oral No Start Date Active Coumadin 4 mg tablet RxNorm: 001221 1 Tablet(s) PO daily on M,, No Start Date 06/07/2018 Inactive Vitamin D3 oral RxNorm: oral No Start Date 06/16/2018 Inactive pravastatin 10 mg tablet RxNorm: 907308 1 Tablet(s) PO daily No Start Date 01/21/2015 Inactive Aspirin Low Dose 81 mg tablet,delayed release RxNorm: 663173 1 Tablet(s) PO BIW on Thursday and Thursday No Start Date 06/16/2018 Inactive Tylenol PM oral RxNorm: 204591 oral No Start Date 04/07/2017 Inactive Vitamin D2 oral RxNorm: 4018 oral No Start Date 06/08/2018 Inactive Vitamin D2 50,000 unit capsule RxNorm: 840516 1 Capsule(s) PO QW No Start Date 04/13/2017 Inactive tramadol 50 mg tablet RxNorm: 143432 1 Tablet(s) PO TID as needed No Start Date 03/16/2018 Inactive Colace 100 mg capsule RxNorm: 1690080 Capsule(s) PO No Start Date 06/07/2018 Inactive furosemide 40 mg tablet RxNorm: 492302 1 Tablet(s) PO daily as needed No Start Date 07/12/2018 Inactive biotin oral RxNorm: oral No Start Date 06/16/2018 Inactive Micro-K 10 10 mEq capsule,extended release RxNorm: 539523 1 Capsule(s) PO daily No Start Date 05/07/2017 Inactive Synthroid 100 mcg tablet RxNorm: 469616 Tablet(s) PO No Start Date 07/31/2015 Inactive Vitamin B-12 oral RxNorm: oral No Start Date 06/16/2018 Inactive PreserVision AREDS 2 oral RxNorm: 7669615 oral No Start Date 06/07/2018 Inactive hydrochlorothiazide 25 mg tablet RxNorm: 543910 1 Tablet(s) PO daily No Start Date 07/18/2015 Inactive warfarin 2 mg tablet RxNorm: 627945 Tablet(s) PO No Start Date 08/29/2015 Inactive metoprolol succinate ER 100 mg tablet,extended release 24 hr RxNorm: 620837 1 Tablet(s) PO daily No Start Date 06/05/2015 Inactive warfarin 3 mg tablet RxNorm: 237992 Tablet(s) PO No Start Date 08/29/2015 Inactive Coumadin 3 mg tablet RxNorm: 651603 1 Tablet(s) PO QPM at 6:00pm Managed by Dr Bowman No Start Date 06/17/2017 Inactive Medication Administered Medication Codes Instructions Start Date Status Kenalog 40 mg/mL suspension for injection RxNorm: 5470287 2Milliliter 03/12/2018 No longer Active ceftriaxone 500 mg solution for injection RxNorm: 1232855 02/08/2018 No longer Active ceftriaxone 500 mg solution for injection RxNorm: 0619098 10/06/2016 No longer Active Kenalog 40 mg/mL suspension for injection RxNorm: 5559054 1Milliliter 10/06/2016 No longer Active Kenalog 40 mg/mL suspension for injection RxNorm: 3060134 Milliliter 04/28/2016 No longer Active Immunizations Vaccine Codes Date Status SHINGARIX CVX: 121 06/08/2018 completed Influenza CVX: 141 05/20/2018 completed Influenza CVX: 141 06/18/2017 completed Influenza CVX: 141 06/10/2016 completed Pneumococcal CVX: 133 05/29/2016 completed Influenza CVX: 141 07/03/2015 completed Assessments Condition Codes Effective Dates Essential (primary) hypertension ICD-10: I10 ICD-9: 401.1 06/29/2018 Atrophy of thyroid (acquired) ICD-10: E03.4 ICD-9: 244.8 06/29/2018 Other fatigue ICD-10: R53.83 ICD-9: 780.79 06/29/2018 Other insomnia ICD-10: G47.09 ICD-9: 327.09 06/29/2018 Encounter for general adult medical examination with abnormal findings ICD-10: Z00.01 ICD-9: V70.0 06/08/2018 Dysuria ICD-10: R30.0 ICD-9: 788.1 05/25/2018 Localized edema ICD-10: R60.0 ICD-9: 782.3 05/24/2018 snf (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 of anticoagulants ICD-10: Z79.01 ICD-9: [...] Reason For Visit Effective Dates Notes hypertension 06/29/2018 Annual Medicare Wellness Exam 06/08/2018 [...] NO Growth Day 2 05/27/2018 Comp Metabolic Ylt291 NA 142 mEq/L 05/24/2018 Comp Metabolic Gkm713 K 4.0 mEq/L 05/24/2018 Comp Metabolic Wsq469 CL 104 mEq/L 05/24/2018 Comp Metabolic Rqn492 CO2 30.0 mEq/L 05/24/2018 Comp Metabolic Wbf045 ANION GAP 12 05/24/2018 Comp Metabolic Bda034 GLUCOSE 94 mg/dL 05/24/2018 Comp Metabolic Lfp929 Creat 0.6 mg/dL 05/24/2018 Comp Metabolic Lij294 eGFR 97 ml/min/1.73m2 05/24/2018 Comp Metabolic Eui580 BUN 12 mg/dL 05/24/2018 Comp Metabolic Eob302 B/C Ratio 19.4 Ratio 05/24/2018 Comp Metabolic Xkw908 CALCIUM 8.8 mg/dL 05/24/2018 Comp Metabolic Txc816 ALK PHOS 135 U/L 05/24/2018 Comp Metabolic Ljc063 AST(SGOT) 18 U/L 05/24/2018 Comp Metabolic Bxg524 ALT(SGPT) 16 U/L 05/24/2018 Comp Metabolic Lux481 BILI T 0.4 mg/dL 05/24/2018 Comp Metabolic Dpg650 ALBUMIN 3.9 g/dL 05/24/2018 Comp Metabolic Sld118 TPRO 6.0 g/dL 05/24/2018 Comp Metabolic Szi785 GLOB 2.1 g/dL 05/24/2018 Comp Metabolic Vhi602 A/G Ratio 1.8 Ratio 05/24/2018 Comp Metabolic Gtv948 Osmo 283 mOsmo 05/24/2018 Pt Pcy3008 PT 28.2 seconds 05/24/2018 Pt Mmj2425 INR 2.6 05/24/2018 Pt Zqr6155 Low Intensity - 1.5-2.0 05/24/2018 Pt Uwa4092 Mod intensity - 2.0-3.0 05/24/2018 Pt Yqk3580 Hi intensity - 3.0-4.0 05/24/2018 Cbc With Differential Ord2 WBC 7.30 K/ul 05/24/2018 Cbc With Differential Ord2 RBC 4.04 M/ul 05/24/2018 Cbc With Differential Ord2 HGB 12.0 g/dl 05/24/2018 Cbc With Differential Ord2 HCT 38.9 % 05/24/2018 Cbc With Differential Ord2 Neut% 66.0 % 05/24/2018 Cbc With Differential Ord2 Lymph% 21.1 % 05/24/2018 Cbc With Differential Ord2 MCV 96.3 fl 05/24/2018 Cbc With Differential Ord2 MCH 29.7 pg 05/24/2018 Cbc With Differential Ord2 Reeves% 7.0 % 05/24/2018 Cbc With Differential Ord2 Eos% 5.5 % 05/24/2018 Cbc With Differential Ord2 MCHC 30.8 pg 05/24/2018 Cbc With Differential Ord2 PLT 198 K/ul 05/24/2018 Cbc With Differential Ord2 Baso% 0.4 % 05/24/2018 Cbc With Differential Ord2 RDW 15.0 % 05/24/2018 Cbc With Differential Ord2 Neut ABS# 4.82 K/ul 05/24/2018 Cbc With Differential Ord2 Lymph ABS# 1.54 K/ul 05/24/2018 Cbc With Differential Ord2 Reeves ABS# 0.5 K/ul 05/24/2018 Cbc With Differential Ord2 Eos ABS# 0.4 K/ul 05/24/2018 Cbc With Differential Ord2 Baso ABS# 0.0 K/ul 05/24/2018 Tsh Ord6 TSH (3rd IS) 3.19 uIU/mL 10/06/2017 Free T4 Tnp116 FREE T4 1.64 ng/dL 10/06/2017 Free T4 Gdv897 FREE T4 1.03 ng/dL 08/05/2017 Tsh Ord6 [...] Ord30 C/HDL 3.7 Ratio 04/09/2017 Free T4 Sux849 FREE T4 0.97 ng/dL 04/09/2017 Tibc Ord40 Iron 36 ug/dl 04/09/2017 Tibc Ord40 UIBC 281 ug/dL 04/09/2017 Tibc Ord40 TIBC 317 ug/dL 04/09/2017 Tibc Ord40 Fe-%Sat 11.4 % 04/09/2017 Comp Metabolic Gxl627 NA 136 mEq/L 04/09/2017 Comp Metabolic Ycq546 K 3.9 mEq/L 04/09/2017 Comp Metabolic Vea163 CL 98 mEq/L 04/09/2017 Comp Metabolic Mtt825 CO2 28.0 mEq/L 04/09/2017 Comp Metabolic Zmx038 ANION GAP 14 04/09/2017 Comp Metabolic Tzg360 GLUCOSE 90 mg/dL 04/09/2017 Comp Metabolic Xfn066 Creat 0.6 mg/dL 04/09/2017 Comp Metabolic Wkr489 eGFR 102 ml/min/1.73m2 04/09/2017 Comp Metabolic Ocf935 BUN 9 mg/dL 04/09/2017 Comp Metabolic Kjw225 B/C Ratio 15.3 Ratio 04/09/2017 Comp Metabolic Nnf737 CALCIUM 8.8 mg/dL 04/09/2017 Comp Metabolic Ycv183 ALK PHOS 102 U/L 04/09/2017 Comp Metabolic Hcl313 AST(SGOT) 18 U/L 04/09/2017 Comp Metabolic Ext662 ALT(SGPT) 14 U/L 04/09/2017 Comp Metabolic Ltz905 BILI T 0.4 mg/dL 04/09/2017 Comp Metabolic Zkr424 ALBUMIN 3.9 g/dL 04/09/2017 Comp Metabolic Mby533 TPRO 6.3 g/dL 04/09/2017 Comp Metabolic Ifo291 GLOB 2.4 g/dL 04/09/2017 Comp Metabolic Oai778 A/G Ratio 1.7 Ratio 04/09/2017 Comp Metabolic Lfm996 Osmo 270 mOsmo 04/09/2017 Vitamin D 25 Oh Owt4031 VITAMIN D, 25 HYDROXY 34.31 ng/mL 04/09/2017 [...] 28.9 pg 04/09/2017 Cbc With Differential Ord2 Reeves% 8.8 % 04/09/2017 Cbc With Differential Ord2 [...] 1.22 K/ul 04/09/2017 Cbc With Differential Ord2 Reeves ABS# 0.7 K/ul 04/09/2017 Cbc With Differential Ord2 Eos ABS# 0.1 K/ul 04/09/2017 Cbc With Differential Ord2 Baso ABS# 0.0 K/ul 04/09/2017 Urine Culture Ucult Complete >100,000 col/ml aerobic growth sent to ref lab 03/05/2017 Pt Pry8980 PT 24.2 seconds 04/14/2016 Pt Lwz0287 INR 2.3 04/14/2016 Pt Glf6598 Low Intensity - 1.5-2.0 04/14/2016 Pt Gfb7980 Mod intensity - 2.0-3.0 04/14/2016 Pt Rab1501 Hi intensity - 3.0-4.0 04/14/2016 Pt Dkl5078 PT 31.3 seconds 04/10/2016 Pt Txg3482 INR 3.3 04/10/2016 Pt Roz9399 Low Intensity - 1.5-2.0 04/10/2016 Pt Yxi6082 Mod intensity - 2.0-3.0 04/10/2016 Pt Wzr3491 Hi intensity - 3.0-4.0 04/10/2016 C RAP A SC [id number] Strep A Negative 04/10/2016 Urine Culture Ucult Complete >100,000 col/ml aerobic growth sent to ref lab 04/04/2016 Comp Metabolic Msj313 NA 136 mEq/L 04/03/2016 Comp Metabolic Out481 K 3.9 mEq/L 04/03/2016 Comp Metabolic Fhq008 CL 99 mEq/L 04/03/2016 Comp Metabolic Tng256 CO2 32.0 mEq/L 04/03/2016 Comp Metabolic Qnt826 ANION GAP 9 04/03/2016 Comp Metabolic Knf089 GLUCOSE 88 mg/dL 04/03/2016 Comp Metabolic Vyw620 Creat 0.6 mg/dL 04/03/2016 Comp Metabolic Gbj689 eGFR 93 ml/min/1.73m2 04/03/2016 Comp Metabolic Rnd009 BUN 15 mg/dL 04/03/2016 Comp Metabolic Qfs105 B/C Ratio 23.4 Ratio 04/03/2016 Comp Metabolic Obe339 CALCIUM 8.7 mg/dL 04/03/2016 Comp Metabolic Euk938 ALK PHOS 100 U/L 04/03/2016 Comp Metabolic Cvo057 AST(SGOT) 28 U/L 04/03/2016 Comp Metabolic Vlo650 ALT(SGPT) 39 U/L 04/03/2016 Comp Metabolic Kzq360 BILI T 0.5 mg/dL 04/03/2016 Comp Metabolic Mzf181 ALBUMIN 4.1 g/dL 04/03/2016 Comp Metabolic Rpf002 TPRO 6.6 g/dL 04/03/2016 Comp Metabolic Mqw409 GLOB 2.5 g/dL 04/03/2016 Comp Metabolic Azh806 A/G Ratio 1.7 Ratio 04/03/2016 Comp Metabolic Abg190 Osmo 272 mOsmo 04/03/2016 Cbc With Differential [...] 15.8 % 04/03/2016 Cbc With Differential Ord2 Reeves% 11.3 % 04/03/2016 Cbc With Differential Ord2 [...] 1.15 K/ul 04/03/2016 Cbc With Differential Ord2 Reeves ABS# 0.8 K/ul 04/03/2016 Cbc With Differential Ord2 Eos ABS# 0.2 K/ul 04/03/2016 Cbc With Differential Ord2 Baso ABS# 0.0 K/ul 04/03/2016 Tsh Ord6 hTSH II 3.06 uIU/mL 04/03/2016 Free T4 [id number] FREE T4 0.99 ng/dL 04/03/2016 Free T4 Lyw361 FREE T4 0.81 ng/dL 07/31/2015 Comp Metabolic Nur244 NA 136 mEq/L 07/31/2015 Comp Metabolic Xta900 K 3.8 mEq/L 07/31/2015 Comp Metabolic Dgi889 CL 97 mEq/L 07/31/2015 Comp Metabolic Wrl965 CO2 29.0 mEq/L 07/31/2015 Comp Metabolic Feh949 ANION GAP 14 07/31/2015 Comp Metabolic Unm616 GLUCOSE 90 mg/dL 07/31/2015 Comp Metabolic Adu482 Creat 0.7 mg/dL 07/31/2015 Comp Metabolic Tdm111 eGFR 80 ml/min/1.73m2 07/31/2015 Comp Metabolic Xdy376 BUN 8 mg/dL 07/31/2015 Comp Metabolic Pek060 B/C Ratio 11.0 Ratio 07/31/2015 Comp Metabolic Jxo965 CALCIUM 8.9 mg/dL 07/31/2015 Comp Metabolic Lno944 ALK PHOS 102 U/L 07/31/2015 Comp Metabolic Qca099 AST(SGOT) 22 U/L 07/31/2015 Comp Metabolic Eyh588 ALT(SGPT) 14 U/L 07/31/2015 Comp Metabolic Cpe337 BILI T 0.5 mg/dL 07/31/2015 Comp Metabolic Nud292 ALBUMIN 4.4 g/dL 07/31/2015 Comp Metabolic Aom969 TPRO 6.7 g/dL 07/31/2015 Comp Metabolic Qza070 GLOB 2.3 g/dL 07/31/2015 Comp Metabolic Xsl397 A/G Ratio 1.9 Ratio 07/31/2015 Comp Metabolic Ryh161 Osmo 270 mOsmo 07/31/2015 Tsh Ord6 hTSH [...] Lipid Ord30 C/HDL 4.8 Ratio 07/31/2015 Pt Gtr8250 PT 31.9 seconds 07/03/2015 Pt Wcb6288 INR 3.2 07/03/2015 Pt Fyu9087 Low Intensity - 1.5-2.0 07/03/2015 Pt Mgf6163 Mod intensity - 2.0-3.0 07/03/2015 Pt Wcr6678 Hi intensity - 3.0-4.0 07/03/2015 Review of Systems System Result Effective Dates Constitutional No recent illness 06/29/2018 Constitutional No [...] General 1995 Ears/Nose/Throat lips/teeth/gingiva Overall: benign lips 10/12/2017 None [...] masses 05/07/2016 None Full Exam - General 1995 Respiratory [...] G0439 06/08/2018 URINALYSIS NONAUTO W/O SCOPE CPT-4: 40470 05/25/2018 ADMIN INFLUENZA VIRUS VAC CPT-4: G0008 05/20/2018 FLU VACC PRSV FREE INC ANTIG CPT-4: 13693 05/20/2018 DRAIN/INJECT JOINT/BURSA CPT-4: 95559 03/23/2018 TRIAMCINOLONE ACET INJ NOS CPT-4: J3301 03/23/2018 DRAIN/INJECT JOINT/BURSA CPT-4: 34825 03/12/2018 TRIAMCINOLONE ACET INJ NOS CPT-4: J3301 03/12/2018 ROCEPHIN, PER 250 MG CPT- 4: J0696 02/08/2018 ADMIN INFLUENZA VIRUS VAC CPT-4: G0008 06/18/2017 FLU VACC PRSV FREE INC ANTIG CPT-4: 67757 06/18/2017 URINALYSIS NONAUTO W/O SCOPE CPT-4: 00950 04/27/2017 URINALYSIS NONAUTO W/O SCOPE CPT-4: 28633 2017 DRAIN/INJECT JOINT/BURSA CPT-4: 69087 03/03/2017 TRIAMCINOLONE ACET INJ NOS CPT-4: J3301 03/03/2017 TRIAMCINOLONE ACET INJ NOS CPT-4: J3301 10/06/2016 ROCEPHIN, PER 250 MG CPT- 4: J0696 10/06/2016 THER/PROPH/DIAG INJ SC/IM CPT-4: 94015 10/06/2016 TRIAMCINOLONE ACET INJ NOS CPT-4: J3301 04/28/2016 URINALYSIS NONAUTO W/O SCOPE CPT-4: 00338 04/03/2016 ADMIN INFLUENZA VIRUS VAC CPT-4: G0008 07/03/2015 FLU VACC PRSV FREE INC ANTIG CPT-4: 37406 07/03/2015 Vital Signs Date Vital 06/29/2018 Blood Pressure 1: 142/80 Code: 8480-6 BMI: 27.8 Code: 84043-3 Heart Rate 1: 89 bpm Height: 5'6" SpO2: 94% Weight: 172 lbs 06/08/2018 Blood Pressure 1: 144/66 Code: 8480-6 BMI: 27.9 Code: 59242-1 Heart Rate 1: 85 bpm Height: 5'6" SpO2: 97% Waist Measure (cm): 97 cm Weight: 173 lbs 05/24/2018 Blood Pressure 1: 128/72 Code: 8480-6 BMI: 27.9 Code: 38759-3 Heart Rate 1: 82 bpm Height: 5'6" SpO2: 92% Weight: 173 lbs 04/06/2018 Blood Pressure 1: 138/88 Code: 8480-6 Heart Rate 1: 86 bpm Height: SpO2: 96% Weight: 03/23/2018 Blood Pressure 1: 150/88 Code: 8480-6 Heart Rate 1: 80 bpm Height: SpO2: 96% Weight: 03/12/2018 Heart Rate 1: 90 bpm Height: Weight: 03/02/2018 Blood Pressure 1: 128/80 Code: 8480-6 BMI: 28.4 Code: 03801-9 Heart Rate 1: 83 bpm Height: 5'6" SpO2: 93% Weight: 176 lbs 02/08/2018 Blood Pressure 1: 142/80 Code: 8480-6 Heart Rate 1: 78 bpm Height: 5'6" SpO2: 94% 12/03/2017 Blood Pressure 1: 124/78 Code: 8480-6 BMI: 27.9 Code: 82655-0 Heart Rate 1: 70 bpm Height: 5'6" SpO2: 97% Weight: 173 lbs 10/27/2017 Blood Pressure 1: 126/60 Code: 8480-6 Heart Rate 1: 65 bpm Height: 5'6" SpO2: 98% Weight: 10/12/2017 Blood Pressure 1: 126/74 Code: 8480-6 BMI: 26.0 Code: 45649-0 Heart Rate 1: 80 bpm Height: 5'6" SpO2: 89% Weight: 161 lbs 10/06/2017 Blood Pressure 1: 126/70 Code: 8480-6 BMI: 27.2 Code: 11710-6 Heart Rate 1: 73 bpm Height: 5'6" SpO2: 97% Weight: 168 lbs 8 oz 08/05/2017 Blood Pressure 1: 152/78 Code: 8480-6 BMI: 27.1 Code: 08084-2 Heart Rate 1: 73 bpm Height: 5'6" SpO2: 98% Weight: 168 lbs 07/06/2017 Blood Pressure 1: 148/70 Code: 8480-6 BMI: 26.6 Code: 19639-6 Heart Rate 1: 80 bpm Height: 5'6" SpO2: 97% Weight: 165 lbs 06/18/2017 Blood Pressure 1: 132/68 Code: 8480-6 BMI: 26.8 Code: 53577-4 Heart Rate 1: 84 bpm Height: 5'6" [...] 1: 162/84 Code: 8480-6 BMI: 28.1 Code: 29844-8 Heart Rate 1: 98 bpm Height: 5'6" SpO2: 97% Weight: 174 lbs 03/03/2017 Blood Pressure 1: 154/88 Code: 8480-6 Heart Rate 1: 96 bpm Height: SpO2: 95% Weight: 01/05/2017 Blood Pressure 1: 142/78 Code: 8480-6 BMI: 28.9 Code: 13823-5 Heart Rate 1: 94 bpm Height: 5'6" SpO2: 95% Weight: 179 lbs 12/19/2016 Blood Pressure 1: 130/74 Code: 8480-6 Heart Rate 1: 91 bpm Height: 5'6" SpO2: 97% Weight: 11/13/2016 Blood Pressure 1: 152/82 Code: 8480-6 BMI: 28.4 Code: 65147-7 Heart Rate 1: 85 bpm Height: 5'6" SpO2: 96% Weight: 176 lbs 10/16/2016 Blood Pressure 1: 148/72 Code: 8480-6 BMI: 28.4 Code: 97318-9 Heart Rate 1: 90 bpm Height: 5'6" SpO2: 96% Weight: 176 lbs 10/06/2016 Blood Pressure 1: 150/80 Code: 8480-6 BMI: 28.4 Code: 99294-1 Heart Rate 1: 76 bpm Height: 5'6" SpO2: 97% Weight: 176 lbs 07/02/2016 Blood Pressure 1: 142/78 Code: 8480-6 BMI: 27.8 Code: 75488-8 Heart Rate 1: 85 bpm Height: 5'6" SpO2: 97% Weight: 172 lbs 05/21/2016 Blood Pressure 1: 166/80 Code: 8480-6 BMI: 27.9 Code: 08964-5 Heart Rate 1: 79 bpm Height: 5'6" SpO2: 98% Weight: 173 lbs 05/07/2016 Blood Pressure 1: 140/70 Code: 8480-6 BMI: 27.9 Code: 81093-8 Heart Rate 1: 82 bpm Height: 5'6" SpO2: 96% Weight: 173 lbs 04/28/2016 Blood Pressure 1: 128/86 Code: 8480-6 BMI: 27.4 Code: 85140-9 Heart Rate 1: 86 bpm Height: 5'6" SpO2: 96% Temperature: 36.1 (C) / 97.0 (F) Weight: 170 lbs 04/07/2016 Blood Pressure 1: 150/80 Code: 8480-6 Heart Rate 1: 94 bpm Height: SpO2: 95% Weight: 04/03/2016 Blood Pressure 1: 122/76 Code: 8480-6 BMI: 27.4 Code: 74062-2 Heart Rate 1: 84 bpm Height: 5'6" SpO2: 94% Weight: 170 lbs 01/31/2016 Blood Pressure 1: 124/82 Code: 8480-6 BMI: 27.8 Code: 36378-7 Heart Rate 1: 100 bpm Height: 5'6" SpO2: 97% Weight: 172 lbs 11/29/2015 Blood Pressure 1: 140/82 Code: 8480-6 Blood Pressure 1: 130/84 Code: 8480-6 BMI: 27.4 Code: 64817-6 Heart Rate 1: 97 bpm Height: 5'6" SpO2: 95% Weight: 170 lbs 10/01/2015 Blood Pressure 1: 130/80 Code: 8480-6 BMI: 27.4 Code: 46983-3 Heart Rate 1: 82 bpm Height: 5'6" SpO2: 97% Weight: 170 lbs 08/30/2015 Blood Pressure 1: 120/68 Code: 8480-6 BMI: 27.6 Code: 73395-3 Heart Rate 1: 91 bpm Height: 5'6" SpO2: 96% Weight: 171 lbs 07/31/2015 Blood Pressure 1: 180/80 Code: 8480-6 BMI: 27.4 Code: 31251-1 Heart Rate 1: 60 bpm Height: 5'6" SpO2: 94% Weight: 170 lbs 07/03/2015 Blood Pressure 1: 154/80 Code: 8480-6 BMI: 27.4 Code: 32583-8 Heart Rate 1: 98 bpm Height: 5'6" SpO2: 95% Weight: 170 lbs 04/10/2015 Blood Pressure 1: 138/72 Code: 8480-6 BMI: 27.8 Code: 19037-0 Heart Rate 1: 82 bpm Height: 5'6" SpO2: 98% Weight: 172 lbs 01/11/2015 Blood Pressure 1: 132/74 Code: 8480-6 BMI: 28.6 Code: 87842-5 Heart Rate 1: 88 bpm Height: 5'6" SpO2: 96% Weight: 177 lbs Functional Status No Functional Status data History of Present Illness Symptom Name Status Result Effective Date Notes hypertension Quality primary hypertension 06/29/2018 None hypertension [...] data Encounters Encounter Performer Location Codes Date ([id number]) 77657 EST. PATIENT, LEVEL IV Diagnosis: Essential (primary) hypertension[ICD10: I10] Diagnosis: Atrophy of thyroid (acquired)[ICD10: E03.4] Diagnosis: Other fatigue[ICD10: R53.83] Diagnosis: Other insomnia[ICD10: G47.09] Carleen Anaya MD, [facility] CPT-4: 60003 06/29/2018 ([id number]) 64356 EST. PATIENT, LEVEL IV Diagnosis: Localized edema[ICD10: R60.0] Diagnosis: Muscle weakness (generalized)[ICD10: M62.81] Diagnosis: Dysuria[ICD10: R30.0] Diagnosis: snf (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 of anticoagulants[ICD10: Z79.01] Diagnosis: Essential (primary) hypertension[ICD10: I10] Mimi Anaya MD, [facility] CPT-4: 97853 05/24/[id number]) 81213 EST. PATIENT, LEVEL III Diagnosis: Lumbago with sciatica, right side[ICD10: M54.41] Diagnosis: Sciatica, right side[ICD10: M54.31] Carleen Anaya MD, [facility] CPT- 4: 88123 04/06/2018 ([id number]) 76422 EST. PATIENT, LEVEL III Diagnosis: Lumbago with sciatica, right side[ICD10: M54.41] Diagnosis: Sciatica, right side[ICD10: M54.31] Carleen Anaya MD, [facility] CPT- 4: 86592 03/23/2018 36535 EST. PATIENT, LEVEL III Diagnosis: Low back pain[ICD10: M54.5] Diagnosis: Sacroiliitis, not elsewhere classified[ICD10: M46.1] Wendi Anaya MD, [facility] CPT-4: 96297 03/12/2018 ([id number]) 32960 EST. PATIENT, LEVEL IV Diagnosis: Atrophy of thyroid (acquired)[ICD10: E03.4] Diagnosis: Essential (primary) hypertension[ICD10: I10] Diagnosis: Urge incontinence[ICD10: N39.41] Carleen Anaya MD, [facility] CPT-4: 46606 03/02/2018 ([id number]) 35789 EST. PATIENT, LEVEL III Diagnosis: Cellulitis of face[ICD10: L03.211] Mimi Anaya MD, [facility] CPT- 4: 55814 02/08/2018 ([id number]) 11217 EST. PATIENT, LEVEL IV Diagnosis: Atrophy of thyroid (acquired)[ICD10: E03.4] Diagnosis: Essential (primary) hypertension[ICD10: I10] Diagnosis: Urge incontinence[ICD10: N39.41] Carleen Anaya MD, [facility] CPT-4: 94614 12/03/2017 63366 EST. PATIENT, LEVEL IV Diagnosis: Essential (primary) hypertension[ICD10: I10] Diagnosis: Weakness[ICD10: R53.1] Diagnosis: Low back pain[ICD10: M54.5] Diagnosis: Other allergic rhinitis[ICD10: J30.89] Wendi Anaya MD, [facility] CPT- 4: 93063 10/27/2017 39629 EST. PATIENT, LEVEL IV Diagnosis: Pneumonia due to other specified bacteria[ICD10: J15.8] Diagnosis: Chronic systolic (congestive) heart failure[ICD10: I50.22] Wendi Anaya MD, [facility] CPT-4: 88381 10/12/2017 ([id number]) 06054 EST. PATIENT, LEVEL IV Diagnosis: Atrophy of thyroid (acquired)[ICD10: E03.4] Diagnosis: Nonscarring hair loss, unspecified[ICD10: L65.9] Diagnosis: Essential (primary) hypertension[ICD10: I10] Carleen Anaya MD, [facility] CPT-4: 63174 10/06/2017 ([id number]) 38598 EST. PATIENT, LEVEL IV Diagnosis: Atrophy of thyroid (acquired)[ICD10: E03.4] Diagnosis: Essential (primary) hypertension[ICD10: I10] Diagnosis: Localized edema[ICD10: R60.0] Carleen Anaya MD, [facility] CPT-4: 53857 08/05/2017 ([id number]) 74219 EST. PATIENT, LEVEL IV Diagnosis: Essential (primary) hypertension[ICD10: I10] Diagnosis: Weakness[ICD10: R53.1] Diagnosis: Other fecal abnormalities[ICD10: R19.5] Carleen Anaya MD, [facility] CPT-4: 07835 07/06/2017 ([id number]) 79803 EST. 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 PATIENT, LEVEL IV Diagnosis: Pain in right shoulder[ICD10: M25.511] Diagnosis: Weakness[ICD10: R53.1] Diagnosis: Other fatigue[ICD10: R53.83] Diagnosis: Other malaise[ICD10: R53.81] Wendi Anaya MD, [facility] CPT-4: 17054 05/11/2017 ([id number]) Miscellaneous no charge Diagnosis: Essential (primary) hypertension[ICD10: I10] [facility] CPT-4: 71788 04/30/2017 ([id number]) 59709 EST. PATIENT, LEVEL III Diagnosis: Acute recurrent maxillary sinusitis[ICD10: J01.01] Diagnosis: Urinary tract infection, site not specified[ICD10: N39.0] Mimi Anaya MD, [facility] CPT-4: 55859 04/27/2017 ([id number]) 57621 EST. PATIENT, LEVEL IV Diagnosis: Atrophy of thyroid (acquired)[ICD10: E03.4] Diagnosis: Essential (primary) hypertension[ICD10: I10] Diagnosis: Iron deficiency[ICD10: E61.1] Diagnosis: Other specified heart block[ICD10: I45.5] Carleen Anaya MD, [facility] CPT-4: 24290 04/08/2017 43041 EST. PATIENT, LEVEL III Diagnosis: Low back pain[ICD10: M54.5] Diagnosis: Sacroiliitis, not elsewhere classified[ICD10: M46.1] Wendi Anaya MD, [facility] CPT-4: 79386 03/03/2017 ([id number]) 01506 EST. PATIENT, LEVEL IV Diagnosis: Essential (primary) hypertension[ICD10: I10] Diagnosis: Atrophy of thyroid (acquired)[ICD10: E03.4] Diagnosis: Vascular dementia without behavioral disturbance[ICD10: F01.50] Carleen Anaya MD, [facility] CPT-4: 92245 01/05/2017 94474 EST. PATIENT, LEVEL III Diagnosis: Cervicalgia[ICD10: M54.2] Diagnosis: Other muscle spasm[ICD10: M62.838] Wendi Anaya MD, [facility] CPT-4: 86600 12/19/2016 ([id number]) 98178 EST. PATIENT, LEVEL III Diagnosis: Essential (primary) hypertension[ICD10: I10] Diagnosis: Gastro-esophageal reflux disease without esophagitis[ICD10: K21.9] Carleen Anaya MD, [facility] CPT-4: 23786 11/13/2016 ([id number]) 37388 EST. PATIENT, LEVEL III Diagnosis: Pain in right shoulder[ICD10: M25.511] Diagnosis: Insomnia due to medical condition[ICD10: G47.01] Carleen Anaya MD, [facility] CPT-4: 70236 10/16/2016 ([id number]) 36433 EST. PATIENT, LEVEL IV Diagnosis: Pneumonia due to other specified bacteria[ICD10: J15.8] Diagnosis: Pain in right shoulder[ICD10: M25.511] Diagnosis: Cough[ICD10: R05] Carleen Anaya MD, [facility] CPT-4: 84539 10/06/2016 ([id number]) 62785 EST. PATIENT, LEVEL IV Diagnosis: Essential (primary) hypertension[ICD10: I10] Diagnosis: Personal history of other specified conditions[ICD10: Z87.898] Diagnosis: Unsteadiness on feet[ICD10: R26.81] Carleen Anaya MD, [facility] CPT- 4: 52774 07/02/2016 ([id number]) 59417 EST. PATIENT, LEVEL IV Diagnosis: Dysphagia, pharyngeal phase[ICD10: R13.13] Diagnosis: Urge incontinence[ICD10: N39.41] Diagnosis: Gastro-esophageal reflux disease without esophagitis[ICD10: K21.9] Carleen Anaya MD, [facility] CPT-4: 23522 05/21/2016 ([id number]) 14529 EST. PATIENT, LEVEL III Diagnosis: Gastro-esophageal reflux disease without esophagitis[ICD10: K21.9] Carleen Anaya MD, [facility] CPT-4: 17959 05/07/2016 ([id number]) 91836 EST. PATIENT, LEVEL III Diagnosis: Acute laryngopharyngitis[ICD10: J06.0] Diagnosis: Dysphagia, pharyngeal phase[ICD10: R13.13] Diagnosis: Allergic rhinitis due to pollen[ICD10: J30.1] Mimi Anaya MD, [facility] CPT-4: 62910 04/28/2016 ([id number]) Miscellaneous no charge Diagnosis: Acute laryngopharyngitis[ICD10: J06.0] Wendi Anaya MD, [facility] CPT- 4: 42116 04/10/2016 92310 EST. PATIENT, LEVEL IV Diagnosis: Cervicalgia[ICD10: M54.2] Diagnosis: Acute laryngopharyngitis[ICD10: J06.0] Diagnosis: snf (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 of anticoagulants[ICD10: Z79.01] Diagnosis: Other cystitis without hematuria[ICD10: N30.80] Wendi Anaya MD, [facility] CPT-4: 10428 04/07/2016 ([id number]) 21119 EST. PATIENT, LEVEL IV Diagnosis: Essential (primary) hypertension[ICD10: I10] Diagnosis: Hypothyroidism, unspecified[ICD10: E03.9] Diagnosis: Other fatigue[ICD10: R53.83] Diagnosis: Urge incontinence[ICD10: N39.41] Mimi Anaya MD, [facility] CPT- 4: 00558 04/03/2016 ([id number]) 15356 EST. PATIENT, LEVEL IV Diagnosis: Essential (primary) hypertension[ICD10: I10] Diagnosis: Pain in right ankle and joints of right foot[ICD10: M25.571] Diagnosis: Dizziness and giddiness[ICD10: R42] Diagnosis: Tinnitus, bilateral[ICD10: H93.13] Mimi Anaya MD, [facility] CPT- 4: 82378 01/31/2016 ([id number]) 22913 EST. PATIENT, LEVEL IV Diagnosis: Essential (primary) hypertension[ICD10: I10] Diagnosis: Otalgia, right ear[ICD10: H92.01] Diagnosis: Allergic rhinitis due to pollen[ICD10: J30.1] Diagnosis: Hypothyroidism, unspecified[ICD10: E03.9] Mimi Anaya MD, [facility] CPT-4: 67698 11/29/2015 ([id number]) 32644 EST. PATIENT, LEVEL IV Diagnosis: Essential (primary) hypertension[ICD10: I10] Diagnosis: Urge incontinence[ICD10: N39.41] Diagnosis: Unspecified dementia without behavioral disturbance[ICD10: F03.90] Mimi Anaya MD, [facility] CPT-4: 44228 10/01/2015 ([id number]) 93799 EST. PATIENT, LEVEL IV Diagnosis: Essential (primary) hypertension[ICD10: I10] Diagnosis: Hypothyroidism, unspecified[ICD10: E03.9] Diagnosis: Unspecified dementia without behavioral disturbance[ICD10: F03.90] Diagnosis: Urge incontinence[ICD10: N39.41] Mimi Anaya MD, [facility] CPT- 4: 96931 08/30/2015 ([id number]) 49070 EST. PATIENT, LEVEL IV Diagnosis: Essential (primary) hypertension[ICD10: I10] Diagnosis: Hypothyroidism, unspecified[ICD10: E03.9] Diagnosis: Hyperlipidemia, unspecified[ICD10: E78.5] Carleen Anaya MD, [facility] CPT-4: 29451 07/31/2015 24860 69477 EST. PATIENT, LEVEL IV Diagnosis: Essential (primary) hypertension[ICD10: I10] Diagnosis: snf (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 of anticoagulants[ICD10: Z79.01] Diagnosis: Dizziness and giddiness[ICD10: R42] Carleen Anaya MD, [facility] CPT- 4: 42512 07/03/2015 ([id number] 74151 EST. PATIENT, LEVEL IV Diagnosis: ESSENTIAL HYPERTENSION[ICD9: 401.9] Diagnosis: MACULAR DEGENERATION[ICD9: 362.50] Diagnosis: Peripheral vascular disease[ICD9: 443.9] Diagnosis: Neuropathy[ICD9: 355.9] Carleen Anaya MD, [facility] CPT-4: 30841 04/10/2015 ([id number]) OFFICE/OUTPATIENT VISIT NEW Diagnosis: ESSENTIAL HYPERTENSION[ICD9: 401.9] Diagnosis: HYPOTHYROIDISM[ICD9: 244.9] Diagnosis: URGE INCONTINENCE[ICD9: 788.31] Diagnosis: Constipation - functional[ICD9: 564.09] Carleen Anaya MD, [facility] CPT-4: 58926 01/11/2015 Plan of Care Planned Activity Notes [...] this time. 06/29/2018 Appointment: Carleen Anaya WPtel: [address] [place], [place] [address] (15 min) Moderate 06/29/2018 Patient Education: Patient [...] surrogate. 06/08/2018 Appointment: Mimi Espinosa WPtel: [facility] - Annual Wellness Visit 06/08/2018 Patient [...] edema. Weakness-fatigue- check labs Dysuria- check UA AGX-giqrgfpshd-qo changes in medications 05/24/2018 Appointment: Mimi Espinosa WPtel: [address] [place] [address] (15 min) Moderate 05/24/2018 Patient Education: Patient Medication Summary Completed 05/24/2018 Appointment: Injection 05/20/2018 Patient Education: Patient Medication Summary Completed 05/20/2018 Visit Plan: Sciatica- pt to continue with aleve twice daily and cyclobenzaprine x 1 week. Pt is to call if the symptoms do not improve or if they worsen. referral to [facility] physical therapy. 04/06/2018 Appointment: Carleen Anaya WPtel: [address] (15 min) Moderate 04/06/2018 Patient Education: [...] do not improve or if they worsen. [id number] - andrew 03/23/2018 Appointment: Carleen Anaya WPtel: [facility]5 [facility] (15 min) Moderate 03/23/2018 Patient Education: Patient [...] of injection. 03/12/2018 Appointment: Wendi Uriostegui WPtel: [address] [place], [place] [address] (30 min) Complex 03/12/2018 Patient Education: Patient [...] myrbetric 03/02/2018 Appointment: Carleen Anaya WPtel: [facility]1 [facility] (15 min) Moderate 03/02/2018 Patient Education: Patient Medication Summary Completed 03/02/2018 Appointment: (10 min) Simple 02/09/2018 Visit Plan: Cellulitis - start oral antibiotics as directed, return to clinic as directed, call for acute change in symptoms, worsening redness, warmth, discharge. 02/08/2018 Appointment: Mimi Espinosa WPtel: [phone] [facility] [place] (15 min) Moderate 02/08/2018 [...] daily. 12/03/2017 Appointment: Carleen Anaya WPtel: [facility]8 [facility] (15 min) Moderate 12/03/2017 Patient Education: Patient [...] spray. 10/27/2017 Appointment: Wendi Uriostegui WPtel: [facility]5 [facility] (15 min) Moderate 10/27/2017 Patient Education: Patient Medication Summary Completed 10/27/2017 Visit Plan: Pneumonia - Pt has been diagnosed with pneumonia by physical exam. A chest xray has been ordered as have antibiotics. The pt is aware of the diagnosis and the need for acute treatment of this illness. 10/12/2017 Appointment: [phone] (15 min) Moderate 10/12/2017 Patient Education: [...] today. 10/06/2017 Appointment: [facility]el[phone] (15 min) Moderate 10/06/2017 Patient Education: Patient [...] prn. 08/05/2017 Appointment: Carleen Anaya WPtel: 1015 [facility] (15 min) Moderate 08/05/2017 Patient Education: Patient Medication Summary Completed 08/05/2017 Appointment: Carleen Anaya WPtel: [phone] [facility]6[address] (15 min) Moderate 07/14/2017 Visit Plan: Hypertension [...] voltaren gel. 07/06/2017 Appointment: Carleen Anaya WPtel: 1011 [facility] [place] (15 min) Moderate 07/06/2017 Patient Education: [...] today 06/18/2017 Appointment: Carleen Anaya WPtel: 1010 [facility] [place] (15 min) Moderate 06/18/2017 Patient Education: Patient Medication Summary Completed 06/18/2017 Appointment: Nurse Visit 05/12/2017 Care Plan: X-RAY EXAM OF SHOULDER LOINC : 85160-1 Pending 05/12/2017 Visit Plan: Weakness, fatigue, malaise - Discussed with Dr. 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 Pt is to follow up with her oncologist. Right shoulder pain after fall - will send for X-ray - The pt is to use prn antiinflammatories to manage acute pain. The patient is to call the office if the pain is worsening or does not improve. 05/11/2017 Appointment: Wendi Uriostegui WPtel[phone] [place] (30 min) Complex 05/11/2017 Patient [...] plan. 04/27/2017 Appointment: [facility] Espinosa [facility]Ptel[phone] [place] (15 min) Moderate 04/27/2017 Patient [...] heart beat - recommended evaluation by her [employer] - Dr. Butler - I attempted a phone call to the office of Dr. Butler, I had to leave a message on the answering machine. If i don't hear back from Dr. Butlre's office, we will need to do a Holter monitor on patient. 04/08/2017 Appointment: [facility] Anaya [facility]Ptel[phone] (15 min) Moderate 04/08/2017 Patient Education: Patient Medication Summary Completed 04/08/2017 Care Plan: Referral Order SNOMED-CT : [id number] Pending 04/08/2017 Visit Plan: UTI - pt [...] of injection. 03/03/2017 Appointment: Wendi Uriostegui WPtel[phone] [facility] (30 min) Complex 03/03/2017 Patient Education: [...] control. 01/05/2017 Appointment: Carleen Anaya WPtel: [phone] [facility] (15 min) Moderate 01/05/2017 Patient Education: Patient Medication Summary Completed 01/05/2017 Visit Plan: Neck Pain- pt to start with aspercreme or biofreeze to neck three times daily and start neck exercises daily. Will send RX - The patient is to call the office if the pain is worsening or does not improve. 12/19/2016 Appointment: Wnedi Uriostegui WPtel: [phone] [facility] (30 min) Complex 12/19/2016 Patient [...] improving. 11/13/2016 Appointment: Carleen Anaya WPtel: [facility]6 [facility] (15 min) Moderate 11/13/2016 Patient Education: Patient Medication Summary Completed 11/13/2016 Visit Plan: Insomnia -extended release melatonin - you can take up to 10mg of melatonin sleepy time tea - - use warm milk in the tea. Right shoulder - pt to continue with therapy, anti-inflammatory 10/16/2016 Appointment: Carleen Anaya WPtel: [phone] [facility] (15 min) Moderate 10/16/2016 Patient [...] pt. 10/06/2016 Appointment: [facility] WPtel[phone] [facility] (15 min) Moderate 10/06/2016 Patient Education: Patient Medication Summary Completed 10/06/2016 Care Plan: X-RAY EXAM OF SHOULDER LOINC : 41581-1 Pending 10/06/2016 Appointment: Carleen [facility] [phone] [facility] [place] (30 min) Complex 10/01/2016 [facility] [address] [facility] [address] Patient informed. Completed 07/08/2016 Visit Plan: Hypertension [...] therapy. 07/02/2016 Appointment: Carleen [phone] [facility] (15 min) Moderate 07/02/2016 Patient Education: Patient Medication Summary Completed 07/02/2016 Care Plan: Referral Order SNOMED-CT : [id number] Pending 07/02/2016 Visit Plan: Hypertension - well [...] planning on getting a flu shot at [facility] and she is due for another pneumovax- last pneumovax was in 2008 - so she can have pneumovax now and the prevnar in 2017 05/21/2016 Appointment: Carleen Anaya WPtel: [facility] (15 min) Moderate 05/21/2016 Patient Education: Patient Medication Summary Completed 05/21/2016 Referral: Nasima [address] Referral Completed 05/12/2016 Visit Plan: Esophageal [...] times daily 05/07/2016 Appointment: Carleen Anaya WPtel: [facility]9 [address] (15 min) Moderate 05/07/2016 Patient Education: Patient Medication Summary Completed 05/07/2016 Appointment: Mimi Espinosa WPtel: [facility]2 [address] (30 min) Complex 05/01/2016 Visit Plan: [...] Kenalog injection today in the office Sore psjsfd-yjequvqgq-ovcoo dexilant-refer to Dr Del Real for evaluation 04/28/2016 Appointment: Mimi sEpinosa WPtel: [facility]2 [phone] (30 min) Complex 04/28/2016 Patient [...] switched. 04/07/2016 Appointment: Wendi Uriostegui WPtel: [facility]8 [facility] [place] (30 min) Complex 04/07/2016 Patient [...] atigue-check labs including UA-culture if positive Urge pykoijhmzeim-oyajtapcn-xqqku UA with C&S 04/03/2016 Appointment: Mimi Espinosa WPtel: [phone] [place] (30 min) Complex 04/03/2016 Patient Education: Patient Medication Summary Completed 04/03/2016 Visit Plan: Hypertension - well controlled - continue with current medications, continue with no added salt diet. Pt has been encouraged to exercise daily. The pt has been advised to call the office if there are any acute concerns about change in blood pressure readings at home. Wfxnsjvkj-amcfkfld-xkgecvfh MRI brain Right ankle lxjk-mdjbrsn-jyvz right ankle- plan to refer to physical therapy if appropriate 01/31/2016 Appointment: Mimi Espinosa WPtel[facility] [phone] [phone] (30 min) Complex 01/31/2016 Patient Education: [...] medications. 07/31/2015 Appointment: [facility] WPtel[facility] [phone] [facility] (15 min) Moderate 07/31/2015 Patient Education: Patient Medication Summary Completed 07/31/2015 Patient Education: Hypertension Completed 07/31/2015 Care Plan: Referral Order SNOMED-CT : [id number] Ordered 07/31/2015 Visit Plan: Hypertension - uncontrolled [...] Nortryptyline 07/03/2015 Appointment: Carleen Anaya WPtel[facility] [phone] [facility] (15 min) Moderate 07/03/2015 Patient [...] Completed 01/11/2015 Referral: [facility] WPtel: [address] [place] [address] Referral Appointment Requested Referral: External, Ordering Provider Referral Appointment Requested Referral: External, Ordering Provider Referral Relationship Referral: Nasima [address] Referral Appointment Requested Instructions Comment Flonase [...] planning on getting a flu shot at [facility] and she is due for [...] heart beat - recommended evaluation by her Plastics Process Hand - Dr. Butler - I attempted a [...] Kenalog injection today in the office Sore eyjbir-pyggklkbf-rzbxl dexilant-refer to Dr Del Real for evaluation [...] rx for xray sent with pt. . Hypertension - well controlled - continue [...] Fatigue-check labs including UA-culture if positive Urge qpvvqsqlidnh-zjthgghts-ixksz UA with C&S add z-pack, continue cefdinir [...] edema. Weakness-fatigue- check labs Dysuria- check UA XZF-razzxpjpyr-wa changes in medications . Hypertension - well controlled - continue with current medications, continue with no added salt diet. Pt has been encouraged to exercise daily. The pt has been advised to call the office if there are any acute concerns about change in blood pressure readings at home. Mccyxxvbi-hczeaoma-ojcsicty MRI brain Right ankle cwiu-tzuzibi-jgjm right ankle-plan to refer to physical therapy [...] improve or if they worsen. referral to [facility] physical therapy. . Hypertension - well [...] do not improve or if they worsen. [id number] - kenalog Stop Oxybutynin chloride ER. Start [...] is to keep her appointment with her framing carpenter for her ECHO and Carotid US. Pt [...]
--- OUTSIDE RECORDS SUMMARY | 2019-01-01 12:48 | XMS REPORT | CCD ---
Author Author [facility] Organization [facility] Address [address] [place] [address] Phone Care Team Providers Care 3D Artist Name Role Phone PP Unavailable CCM Unavailable Summary Purpose Interface Exchange Insurance Providers Payer name Policy type / Coverage type Covered constitution party ID Effective Begin Date Effective End Date WPS Medicare Part B Medicare Part B [id number] Unknown Unknown [facility] Medicare Part B [id number] Unknown Unknown Family history Father Diagnosis Age At Onset Cancer Unknown Arthritis Unknown Mother Diagnosis Age At Onset Breast cancer Unknown Arthritis Unknown Social History Social History Element Codes Description Effective Dates Alcohol history Unknown occasionally drinks alcohol 06/08/2018 Frequency of drinks SNOMED CT: 514219420 Drinks rarely 06/08/2018 Marital status Unknown 01/11/2015 Number of children Unknown 3 01/11/2015 Employment Unknown Retired 01/11/[address]: 9676587 Quit over 10 years ago 1950 01/11/[address]: 084637299 Never drinks alcohol 01/11/2015 Allergies, Adverse Reactions, Alerts Substance Reaction Codes Entered Date Inactivated Date Status * OTHER REACTION - SEE ANSWER BOX vancogein red Unknown 01/11/2015 No Inactive Date Active CODEINE RxNorm: 2670 01/11/2015 No Inactive Date Active demerol RxNorm: 626772 08/30/2015 No Inactive Date Active hydrocodone Unknown [...] Date Stop Date Status Fill Instructions Synthroid 200 mcg tablet RxNorm: 049254 TAKE ONE TABLET BY MOUTH ON THURSDAY, THURSDAY, AND Thursday07/13/2018 No Stop Date Active Vitamin D3 400 unit capsule RxNorm: 715234 1 Capsule(s) PO daily 06/17/2018 No Stop Date Active Aspirin Low Dose 81 mg tablet,delayed release RxNorm: 366089 1 Tablet(s) PO BIW on Thursday and Thursday06/17/2018 No Stop Date Active biotin 1,000 mcg chewable tablet RxNorm: 5781096 1 Tablet(s) PO daily 06/17/2018 No Stop Date Active Vitamin B-12 500 mcg tablet RxNorm: 926518 1 Tablet(s) PO daily 06/17/2018 No Stop Date Active Colace 100 mg capsule RxNorm: 6722600 1 Capsule(s) PO QHS 06/08/2018 No Stop Date Active Coumadin 3 mg tablet RxNorm: 196757 1 Tablet(s) PO daily x5 days and 2 mg x2 days -Managed by Dr. Bowman 06/08/2018 No Stop Date Active Keflex 500 mg capsule RxNorm: 944934 1 Capsule(s) PO TID 05/25/2018 05/31/2018 Inactive metoprolol succinate ER 100 mg tablet,extended release 24 hr RxNorm: 802545 Tablet(s) TAKE ONE TABLET BY MOUTH ONCE DAILY 05/19/2018 No Stop Date Active Coumadin 3 mg tablet RxNorm: 315615 1 Tablet(s) PO daily -Managed by Dr. Bowman 05/04/2018 06/07/2018 Inactive Synthroid 175 mcg tablet RxNorm: 708335 TAKE 1 TABLET BY MOUTH ONCE DAILY 04/06/2018 06/07/2018 Inactive cyclobenzaprine 5 mg tablet RxNorm: 715767 1/2 Tablet(s) PO TID 04/06/2018 04/15/2018 Inactive Synthroid 175 mcg tablet RxNorm: 617300 1 Tablet(s) PO 4 times a week Thu04/05/2018 09/01/2018 Active alternate with 175mcg order Synthroid 200 mcg tablet RxNorm: 663196 1 Tablet(s) PO TIW Rhonda Munoz 04/05/2018 07/12/2018 Inactive brand name only- Alternate with 175mcg dose schedule cyclobenzaprine 5 mg tablet RxNorm: 059200 1/2 Tablet(s) PO TID 03/23/2018 04/01/2018 Inactive tramadol 50 mg tablet RxNorm: 374318 1 Tablet(s) PO TID as needed 03/17/2018 No Stop Date Active Kenalog 40 mg/mL suspension for injection RxNorm: 3431681 2 Milliliter(s) Inj 03/12/2018 03/12/2018 Inactive prednisone 20 mg tablet RxNorm: 153295 2 Tablet(s) PO daily 03/11/2018 03/10/2018 Inactive prednisone 20 mg tablet RxNorm: 541428 2 Tablet(s) PO daily 03/11/2018 03/15/2018 Inactive losartan 25 mg tablet RxNorm: 392871 TAKE ONE TABLET BY MOUTH ONCE DAILY 02/16/2018 No Stop Date Active doxycycline hyclate 100 mg tablet RxNorm: 4493553 1 Tablet(s) PO BID 02/08/2018 02/14/2018 Inactive ceftriaxone 500 mg solution for injection RxNorm: 9926067 Inj 02/08/2018 02/08/2018 Inactive dapsone 25 mg tablet RxNorm: 942863 2 Tablet(s) PO daily 02/08/2018 02/12/2018 Inactive metoprolol succinate ER 100 mg tablet,extended release 24 hr RxNorm: 986436 TAKE ONE TABLET BY MOUTH ONCE DAILY 01/05/2018 05/18/2018 Inactive Synthroid 175 mcg tablet RxNorm: 697764 1 Tablet(s) PO daily 01/01/2018 03/31/2018 Inactive Synthroid 175 mcg tablet RxNorm: 964496 1 Tablet(s) PO daily 01/01/2018 12/31/2017 Inactive Myrbetriq 50 mg tablet,extended release RxNorm: 9247066 1 Tablet(s) PO daily 12/03/2017 01/01/2018 Inactive Zithromax Z-Oliver 250 mg tablet RxNorm: 064967 1 Tablet(s) PO UD 10/12/2017 10/16/2017 Inactive Tessalon Perles 100 mg capsule RxNorm: 156764 2 Capsule(s) PO TID as needed 10/12/2017 10/16/2017 Inactive prednisone 20 mg tablet RxNorm: 845285 2 Tablet(s) PO daily 10/12/2017 10/16/2017 Inactive cefdinir 300 mg capsule RxNorm: 511234 1 Capsule(s) PO BID 10/08/2017 10/07/2017 Inactive Synthroid 150 mcg tablet RxNorm: 801230 1 Tablet(s) PO daily in morning, except 1/2 Tablet PO Thu, Sat, take 30 minutes before meal 10/08/2017 04/04/2018 Inactive brand name only cefdinir 300 mg capsule RxNorm: 429835 1 Capsule(s) PO BID 10/08/2017 10/14/2017 Inactive Synthroid 150 mcg tablet RxNorm: 472277 1 Tablet(s) PO daily in morning, take 30 minutes before meal 10/06/2017 10/07/2017 Inactive brand name only cefdinir 300 mg capsule RxNorm: 911606 1 Capsule(s) PO BID 08/24/2017 08/30/2017 Inactive Zithromax Z-Oliver 250 mg tablet RxNorm: 829269 1 Tablet(s) PO UD 08/20/2017 08/19/2017 Inactive Zithromax Z-Oliver 250 mg tablet RxNorm: 143071 1 Tablet(s) PO UD 08/20/2017 08/24/2017 Inactive Synthroid 150 mcg tablet RxNorm: 370607 1 Tablet(s) PO daily in morning, take 30 minutes before meal 08/05/2017 08/04/2017 Inactive Synthroid 150 mcg tablet RxNorm: 365678 1 Tablet(s) PO daily in morning, take 30 minutes before meal 08/05/2017 10/05/2017 Inactive Coumadin 3 mg tablet RxNorm: 622413 1 Tablet(s) PO Thursday, , , and Thu- Managed by Dr. Bowman -Managed by Dr. Bowman 08/05/2017 05/03/2018 Inactive pantoprazole 40 mg tablet,delayed release RxNorm: 663667 1 Tablet(s) PO BID 07/08/2017 07/02/2018 Inactive pantoprazole 40 mg tablet,delayed release RxNorm: 082377 1 Tablet(s) PO BID 07/08/2017 07/07/2017 Inactive metoprolol succinate ER 100 mg tablet,extended release 24 hr RxNorm: 121735 TAKE ONE TABLET BY MOUTH ONCE DAILY 07/08/2017 01/04/2018 Inactive Coumadin 3 mg tablet RxNorm: 596399 1 Tablet(s) PO QPM -Managed by Dr. Bowman 07/06/2017 08/04/2017 Inactive Coumadin 3 mg tablet RxNorm: 253663 1 Tablet(s) PO QPM at 6:00pm Managed by Dr Bowman 1/2 pill on thursday and thursday, full pill other days 06/18/2017 07/05/2017 Inactive Voltaren 1 % topical gel RxNorm: 163042 2 TOP QID 06/18/2017 10/15/2017 Inactive Micro-K 10 10 mEq capsule,extended release RxNorm: 113226 1 Capsule(s) PO daily 05/08/2017 12/02/2017 Inactive Synthroid 137 mcg tablet RxNorm: 291064 1 Tablet(s) PO QAM 05/08/2017 08/04/2017 Inactive Dose increased 04/14/17 pravastatin 10 mg tablet RxNorm: 923618 1 Tablet(s) PO daily TAKE ONE TABLET BY MOUTH ONCE DAILY 05/08/2017 12/02/2017 Inactive losartan 25 mg tablet RxNorm: 594694 1 Tablet(s) PO daily TAKE ONE TABLET BY MOUTH ONCE DAILY 05/08/2017 06/07/2018 Inactive Namenda 10 mg tablet RxNorm: 271423 TAKE ONE TABLET BY MOUTH TWICE DAILY 05/07/2017 12/02/2017 Inactive Keflex 500 mg capsule RxNorm: 433873 1 Capsule(s) PO TID 04/27/2017 05/03/2017 Inactive Synthroid 137 mcg tablet RxNorm: 411644 1 Tablet(s) PO QAM 04/14/2017 04/13/2017 Inactive Vitamin D2 50,000 unit capsule RxNorm: 896932 1 Capsule(s) PO QW 04/14/2017 12/02/2017 Inactive Synthroid 137 mcg tablet RxNorm: 519754 1 Tablet(s) PO QAM 04/14/2017 05/07/2017 Inactive losartan 25 mg tablet RxNorm: 407693 TAKE ONE TABLET BY MOUTH ONCE DAILY 03/23/2017 05/07/2017 Inactive Synthroid 125 mcg tablet RxNorm: 079235 TAKE ONE TABLET BY MOUTH ONCE DAILY 03/12/2017 04/12/2017 Inactive ciprofloxacin 500 mg tablet RxNorm: 739595 1 Tablet(s) PO BID 2017 03/13/2017 Inactive prednisone 20 mg tablet RxNorm: 478040 2 Tablet(s) PO daily 03/03/2017 03/07/2017 Inactive tramadol 50 mg tablet RxNorm: 905802 1/2 Tablet(s) PO TID as needed 03/03/2017 12/02/2017 Inactive pravastatin 10 mg tablet RxNorm: 961888 TAKE ONE TABLET BY MOUTH ONCE DAILY 01/19/2017 05/07/2017 Inactive nortriptyline 10 mg capsule RxNorm: 904145 TAKE ONE CAPSULE BY MOUTH ONCE DAILY IN THE EVENING 01/14/2017 12/02/2017 Inactive Voltaren 1 % topical gel RxNorm: 340455 TOP QID 12/22/2016 02/19/2017 Inactive Voltaren 1 % topical gel RxNorm: 389641 TOP QID 12/22/2016 12/21/2016 Inactive prednisone 20 mg tablet RxNorm: 761001 2 Tablet(s) PO daily 12/19/2016 12/23/2016 Inactive cyclobenzaprine 5 mg tablet RxNorm: 125836 1/2 Tablet(s) PO BID as needed 12/19/2016 12/23/2016 Inactive Flector 1.3 % transdermal 12 hour patch RxNorm: 898431 1 Patch TOP every 12 hours as needed 12/19/2016 12/02/2017 Inactive losartan 25 mg tablet RxNorm: 451816 1 Tablet(s) PO daily TAKE ONE TABLET BY MOUTH ONCE DAILY 11/13/2016 03/22/2017 Inactive Namenda 10 mg tablet RxNorm: 672746 TAKE ONE TABLET BY MOUTH TWICE DAILY 10/28/2016 04/25/2017 Inactive nortriptyline 10 mg capsule RxNorm: 091606 TAKE ONE CAPSULE BY MOUTH ONCE DAILY IN THE EVENING 10/13/2016 01/10/2017 Inactive ceftriaxone 500 mg solution for injection RxNorm: 2164080 Inj 10/06/2016 10/06/2016 Inactive cefdinir 300 mg capsule RxNorm: 321639 1 Capsule(s) PO BID 10/06/2016 10/12/2016 Inactive prednisone 20 mg tablet RxNorm: 732033 2 Tablet(s) PO daily 10/06/2016 10/08/2016 Inactive ProAir RespiClick 90 mcg/actuation breath activated RxNorm: 0218582 2 INH TID x 3 days then one inhale tid x 3 days then prn shortness of breath 10/06/2016 11/04/2016 Inactive Kenalog 40 mg/mL suspension for injection RxNorm: 6604882 1 Milliliter(s) Inj 10/06/2016 10/06/2016 Inactive Myrbetriq 50 mg tablet,extended release RxNorm: 7835176 1 Tablet(s) PO daily 09/11/2016 11/12/2016 Inactive Namenda 10 mg tablet RxNorm: 545259 TAKE ONE TABLET BY MOUTH TWICE DAILY 07/25/2016 10/22/2016 Inactive hydrochlorothiazide 25 mg tablet RxNorm: 626228 1 Tablet(s) PO daily 07/25/2016 12/02/2017 Inactive Synthroid 125 mcg tablet RxNorm: 402990 TAKE ONE TABLET BY MOUTH ONCE DAILY 07/14/2016 03/10/2017 Inactive losartan 25 mg tablet RxNorm: 075180 TAKE ONE TABLET BY MOUTH ONCE DAILY 07/07/2016 11/12/2016 Inactive metoprolol succinate ER 100 mg tablet,extended release 24 hr RxNorm: 707448 1 Tablet(s) PO daily 06/16/2016 06/10/2017 Inactive nortriptyline 10 mg capsule RxNorm: 531700 Capsule(s) TAKE ONE CAPSULE BY MOUTH ONCE DAILY IN THE EVENING 06/09/2016 10/06/2016 Inactive Myrbetriq 50 mg tablet,extended release RxNorm: 4036635 1 Tablet(s) PO daily 05/21/2016 09/10/2016 Inactive doxycycline hyclate 100 mg tablet RxNorm: 762461 1 Tablet(s) PO BID 05/07/2016 05/13/2016 Inactive Carafate 100 mg/mL oral suspension RxNorm: 516948 10 Milliliter(s) PO QID 05/07/2016 12/02/2017 Inactive Kenalog 40 mg/mL suspension for injection RxNorm: 4484522 Milliliter(s) Inj 04/28/2016 04/28/2016 Inactive losartan 25 mg tablet RxNorm: 917768 TAKE ONE TABLET BY MOUTH ONCE DAILY 04/08/2016 07/06/2016 Inactive ciprofloxacin 500 mg tablet RxNorm: 075744 1 Tablet(s) PO BID 04/07/2016 04/13/2016 Inactive cyclobenzaprine 5 mg tablet RxNorm: 886118 1 Tablet(s) PO TID 04/07/2016 04/16/2016 Inactive Keflex 500 mg capsule RxNorm: 754065 1 Capsule(s) PO TID 04/03/2016 04/02/2016 Inactive Keflex 500 mg capsule RxNorm: 743863 1 Capsule(s) PO TID 04/03/2016 04/09/2016 Inactive losartan 25 mg tablet RxNorm: 312227 TAKE ONE TABLET BY MOUTH ONCE DAILY 03/06/2016 04/07/2016 Inactive nortriptyline 10 mg capsule RxNorm: 669897 TAKE ONE CAPSULE BY MOUTH ONCE DAILY IN THE EVENING 03/06/2016 06/03/2016 Inactive pravastatin 10 mg tablet RxNorm: 693165 TAKE ONE TABLET BY MOUTH ONCE DAILY 02/04/2016 01/18/2017 Inactive warfarin 4 mg tablet RxNorm: 963144 Tablet(s) PO q d except 5mg on tue 01/31/2016 06/17/2017 Inactive Myrbetriq 50 mg tablet,extended release RxNorm: 2608341 1 Tablet(s) PO daily 01/17/2016 05/15/2016 Inactive Namenda 10 mg tablet RxNorm: 161639 1 Tablet(s) PO BID 01/01/2016 06/28/2016 Inactive Myrbetriq 50 mg tablet,extended release RxNorm: 4865682 1 Tablet(s) PO daily 12/20/2015 12/20/2015 Inactive Synthroid 125 mcg tablet RxNorm: 527882 1 Tablet(s) PO daily 11/14/2015 07/10/2016 Inactive nortriptyline 10 mg capsule RxNorm: 285825 TAKE ONE CAPSULE BY MOUTH ONCE DAILY IN THE EVENING 11/05/2015 03/03/2016 Inactive Myrbetriq 50 mg tablet,extended release RxNorm: 7284442 1 Tablet(s) PO daily 10/01/2015 12/19/2015 Inactive Namenda 10 mg tablet RxNorm: 060919 1 Tablet(s) PO BID 08/30/2015 12/31/2015 Inactive Vesicare 10 mg tablet RxNorm: 257852 1 Tablet(s) PO daily 08/30/2015 09/30/2015 Inactive warfarin 4 mg tablet RxNorm: 859790 Tablet(s) PO 08/30/2015 01/30/2016 Inactive Synthroid 125 mcg tablet RxNorm: 040536 1 Tablet(s) PO daily 08/02/2015 11/13/2015 Inactive Synthroid 125 mcg tablet RxNorm: 573277 Tablet(s) PO 08/01/2015 08/01/2015 Inactive losartan 25 mg tablet RxNorm: 380143 1 Tablet(s) PO daily 07/31/2015 02/25/2016 Inactive pravastatin 10 mg tablet RxNorm: 069931 1 Tablet(s) PO daily 07/23/2015 01/18/2016 Inactive hydrochlorothiazide 25 mg tablet RxNorm: 911760 1 Tablet(s) PO daily 07/19/2015 07/12/2016 Inactive nortriptyline 10 mg capsule RxNorm: 772039 1 Capsule(s) PO QPM 07/03/2015 10/30/2015 Inactive metoprolol succinate ER 100 mg tablet,extended release 24 hr RxNorm: 589387 1 Tablet(s) PO daily 06/06/2015 05/30/2016 Inactive pravastatin 10 mg tablet RxNorm: 653140 1 Tablet(s) PO daily 01/22/2015 07/20/2015 Inactive aspirin 81 mg capsule,delayed release RxNorm: 294317 1 Capsule(s) PO daily 01/11/2015 02/09/2015 Inactive Fosamax 5 mg tablet RxNorm: 328628 1 Tablet(s) QW 01/11/2015 12/02/2017 Inactive oxybutynin chloride ER 10 mg tablet,extended release 24 hr RxNorm: 897704 1 Tablet(s) PO daily 01/11/2015 08/29/2015 Inactive Fosamax 70 mg tablet RxNorm: 881894 1 Tablet(s) PO QW No Start Date Active furosemide 40 mg tablet RxNorm: 668602 1 Tablet(s) PO daily as needed No Start Date Active Claritin oral RxNorm: 96641 oral No Start Date Active Centrum oral RxNorm: oral No Start Date Active Myrbetriq 50 mg tablet,extended release RxNorm: 1463430 1 Tablet(s) PO daily No Start Date Active Calcium 600 + D(3) oral RxNorm: 000946 oral No Start Date Active Coumadin 4 mg tablet RxNorm: 363387 1 Tablet(s) PO daily on M,, No Start Date 06/07/2018 Inactive Vitamin D3 oral RxNorm: oral No Start Date 06/16/2018 Inactive pravastatin 10 mg tablet RxNorm: 359379 1 Tablet(s) PO daily No Start Date 01/21/2015 Inactive Aspirin Low Dose 81 mg tablet,delayed release RxNorm: 932915 1 Tablet(s) PO BIW on Thursday and Thursday No Start Date 06/16/2018 Inactive Tylenol PM oral RxNorm: 403022 oral No Start Date 04/07/2017 Inactive Vitamin D2 oral RxNorm: 4018 oral No Start Date 06/08/2018 Inactive Vitamin D2 50,000 unit capsule RxNorm: 220004 1 Capsule(s) PO QW No Start Date 04/13/2017 Inactive tramadol 50 mg tablet RxNorm: 524567 1 Tablet(s) PO TID as needed No Start Date 03/16/2018 Inactive Colace 100 mg capsule RxNorm: 6596183 Capsule(s) PO No Start Date 06/07/2018 Inactive biotin oral RxNorm: oral No Start Date 06/16/2018 Inactive Micro-K 10 10 mEq capsule,extended release RxNorm: 429426 1 Capsule(s) PO daily No Start Date 05/07/2017 Inactive Synthroid 100 mcg tablet RxNorm: 998390 Tablet(s) PO No Start Date 07/31/2015 Inactive Vitamin B-12 oral RxNorm: oral No Start Date 06/16/2018 Inactive PreserVision AREDS 2 oral RxNorm: 5084900 oral No Start Date 06/07/2018 Inactive hydrochlorothiazide 25 mg tablet RxNorm: 426359 1 Tablet(s) PO daily No Start Date 07/18/2015 Inactive warfarin 2 mg tablet RxNorm: 128591 Tablet(s) PO No Start Date 08/29/2015 Inactive metoprolol succinate ER 100 mg tablet,extended release 24 hr RxNorm: 254693 1 Tablet(s) PO daily No Start Date 06/05/2015 Inactive warfarin 3 mg tablet RxNorm: 037361 Tablet(s) PO No Start Date 08/29/2015 Inactive Coumadin 3 mg tablet RxNorm: 942338 1 Tablet(s) PO QPM at 6:00pm Managed by Dr Bowman No Start Date 06/17/2017 Inactive Medication Administered Medication Codes Instructions Start Date Status Kenalog 40 mg/mL suspension for injection RxNorm: 9905967 2Milliliter 03/12/2018 No longer Active ceftriaxone 500 mg solution for injection RxNorm: 5195852 02/08/2018 No longer Active ceftriaxone 500 mg solution for injection RxNorm: 8770511 10/06/2016 No longer Active Kenalog 40 mg/mL suspension for injection RxNorm: 2969366 1Milliliter 10/06/2016 No longer Active Kenalog 40 mg/mL suspension for injection RxNorm: 1298076 Milliliter 04/28/2016 No longer Active Immunizations Vaccine [...] Localized edema ICD-10: R60.0 ICD-9: 782.3 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 [...] NO Growth Day 2 05/27/2018 Comp Metabolic Fjl129 NA 142 mEq/L 05/24/2018 Comp Metabolic Jyt897 K 4.0 mEq/L 05/24/2018 Comp Metabolic Vgy803 CL 104 mEq/L 05/24/2018 Comp Metabolic Pys719 CO2 30.0 mEq/L 05/24/2018 Comp Metabolic Ejs725 ANION GAP 12 05/24/2018 Comp Metabolic Yzf048 GLUCOSE 94 mg/dL 05/24/2018 Comp Metabolic Oej598 Creat 0.6 mg/dL 05/24/2018 Comp Metabolic Ntx322 eGFR 97 ml/min/1.73m2 05/24/2018 Comp Metabolic Wju493 BUN 12 mg/dL 05/24/2018 Comp Metabolic Lza363 B/C Ratio 19.4 Ratio 05/24/2018 Comp Metabolic Csu429 CALCIUM 8.8 mg/dL 05/24/2018 Comp Metabolic Vlq119 ALK PHOS 135 U/L 05/24/2018 Comp Metabolic Aqa353 AST(SGOT) 18 U/L 05/24/2018 Comp Metabolic Rox361 ALT(SGPT) 16 U/L 05/24/2018 Comp Metabolic Cdy764 BILI T 0.4 mg/dL 05/24/2018 Comp Metabolic Mtl091 ALBUMIN 3.9 g/dL 05/24/2018 Comp Metabolic Bqi961 TPRO 6.0 g/dL 05/24/2018 Comp Metabolic Slc456 GLOB 2.1 g/dL 05/24/2018 Comp Metabolic Uuw007 A/G Ratio 1.8 Ratio 05/24/2018 Comp Metabolic Wqc740 Osmo 283 mOsmo 05/24/2018 Pt Vpv7748 PT 28.2 seconds 05/24/2018 Pt Rqa1519 INR 2.6 05/24/2018 Pt Bnd9112 Low Intensity - 1.5-2.0 05/24/2018 Pt Ltm2941 Mod intensity - 2.0-3.0 05/24/2018 Pt Tco9389 Hi intensity - 3.0-4.0 05/24/2018 Cbc With [...] 29.7 pg 05/24/2018 Cbc With Differential Ord2 Glasscock% 7.0 % 05/24/2018 Cbc With Differential Ord2 MCHC 30.8 pg 05/24/2018 Cbc With Differential Ord2 Eos% 5.5 % 05/24/2018 Cbc With Differential Ord2 Baso% 0.4 % 05/24/2018 Cbc With Differential Ord2 PLT 198 K/ul 05/24/2018 Cbc With Differential Ord2 RDW 15.0 % 05/24/2018 Cbc With Differential Ord2 Neut ABS# 4.82 K/ul 05/24/2018 Cbc With Differential Ord2 Lymph ABS# 1.54 K/ul 05/24/2018 Cbc With Differential Ord2 Glasscock ABS# 0.5 K/ul 05/24/2018 Cbc With Differential Ord2 Eos ABS# 0.4 K/ul 05/24/2018 Cbc With Differential Ord2 Baso ABS# 0.0 K/ul 05/24/2018 Tsh Ord6 TSH (3rd IS) 3.19 uIU/mL 10/06/2017 Free T4 Zru811 FREE T4 1.64 ng/dL 10/06/2017 Free T4 Yqd081 FREE T4 1.03 ng/dL 08/05/2017 Tsh Ord6 [...] Ord30 C/HDL 3.7 Ratio 04/09/2017 Free T4 Bid821 FREE T4 0.97 ng/dL 04/09/2017 Tibc Ord40 Iron 36 ug/dl 04/09/2017 Tibc Ord40 UIBC 281 ug/dL 04/09/2017 Tibc Ord40 TIBC 317 ug/dL 04/09/2017 Tibc Ord40 Fe-%Sat 11.4 % 04/09/2017 Comp Metabolic Hjv070 NA 136 mEq/L 04/09/2017 Comp Metabolic Vau911 K 3.9 mEq/L 04/09/2017 Comp Metabolic Kgi919 CL 98 mEq/L 04/09/2017 Comp Metabolic Ydi190 CO2 28.0 mEq/L 04/09/2017 Comp Metabolic Omb244 ANION GAP 14 04/09/2017 Comp Metabolic Lsa949 GLUCOSE 90 mg/dL 04/09/2017 Comp Metabolic Jkf266 Creat 0.6 mg/dL 04/09/2017 Comp Metabolic Tto725 eGFR 102 ml/min/1.73m2 04/09/2017 Comp Metabolic Xze303 BUN 9 mg/dL 04/09/2017 Comp Metabolic Pds756 B/C Ratio 15.3 Ratio 04/09/2017 Comp Metabolic Hef023 CALCIUM 8.8 mg/dL 04/09/2017 Comp Metabolic Vqa157 ALK PHOS 102 U/L 04/09/2017 Comp Metabolic Dbk631 AST(SGOT) 18 U/L 04/09/2017 Comp Metabolic Jlc821 ALT(SGPT) 14 U/L 04/09/2017 Comp Metabolic Pzy954 BILI T 0.4 mg/dL 04/09/2017 Comp Metabolic Kdl710 ALBUMIN 3.9 g/dL 04/09/2017 Comp Metabolic Hjl538 TPRO 6.3 g/dL 04/09/2017 Comp Metabolic Afr057 GLOB 2.4 g/dL 04/09/2017 Comp Metabolic Iye964 A/G Ratio 1.7 Ratio 04/09/2017 Comp Metabolic Mzi416 Osmo 270 mOsmo 04/09/2017 Vitamin D 25 Oh Xea5085 VITAMIN D, 25 HYDROXY 34.31 ng/mL 04/09/2017 [...] 28.9 pg 04/09/2017 Cbc With Differential Ord2 Glasscock% 8.8 % 04/09/2017 Cbc With Differential Ord2 [...] 1.22 K/ul 04/09/2017 Cbc With Differential Ord2 [place]cock ABS# 0.7 K/ul 04/09/2017 Cbc With Differential Ord2 Eos ABS# 0.1 K/ul 04/09/2017 Cbc With Differential Ord2 Baso ABS# 0.0 K/ul 04/09/2017 Urine Culture Ucult Complete >100,000 col/ml aerobic growth sent to ref lab 03/05/2017 Pt Faz5967 PT 24.2 seconds 04/14/2016 Pt Xln2286 INR 2.3 04/14/2016 Pt Oqp1614 Low Intensity - 1.5-2.0 04/14/2016 Pt Tip0205 Mod intensity - 2.0-3.0 04/14/2016 Pt Xtq3165 Hi intensity - 3.0-4.0 04/14/2016 Pt Yza2191 PT 31.3 seconds 04/10/2016 Pt Skq8336 INR 3.3 04/10/2016 Pt Nbk7425 Low Intensity - 1.5-2.0 04/10/2016 Pt Fxr6270 Mod intensity - 2.0-3.0 04/10/2016 Pt Uee8731 Hi intensity - 3.0-4.0 04/10/2016 C RAP A SC [id number] Strep A Negative 04/10/2016 Urine Culture Ucult Complete >100,000 col/ml aerobic growth sent to ref lab 04/04/2016 Comp Metabolic Oay445 NA 136 mEq/L 04/03/2016 Comp Metabolic Yjc465 K 3.9 mEq/L 04/03/2016 Comp Metabolic Xvo604 CL 99 mEq/L 04/03/2016 Comp Metabolic Nha670 CO2 32.0 mEq/L 04/03/2016 Comp Metabolic Fgj071 ANION GAP 9 04/03/2016 Comp Metabolic Yky929 GLUCOSE 88 mg/dL 04/03/2016 Comp Metabolic Aho218 Creat 0.6 mg/dL 04/03/2016 Comp Metabolic Zzg484 eGFR 93 ml/min/1.73m2 04/03/2016 Comp Metabolic Qkl742 BUN 15 mg/dL 04/03/2016 Comp Metabolic Hjh700 B/C Ratio 23.4 Ratio 04/03/2016 Comp Metabolic Ree124 CALCIUM 8.7 mg/dL 04/03/2016 Comp Metabolic Jdk040 ALK PHOS 100 U/L 04/03/2016 Comp Metabolic Rop045 AST(SGOT) 28 U/L 04/03/2016 Comp Metabolic Pao054 ALT(SGPT) 39 U/L 04/03/2016 Comp Metabolic Vwl353 BILI T 0.5 mg/dL 04/03/2016 Comp Metabolic Vzy908 ALBUMIN 4.1 g/dL 04/03/2016 Comp Metabolic Hzw584 TPRO 6.6 g/dL 04/03/2016 Comp Metabolic Ljz658 GLOB 2.5 g/dL 04/03/2016 Comp Metabolic Zne774 A/G Ratio 1.7 Ratio 04/03/2016 Comp Metabolic Gnf164 Osmo 272 mOsmo 04/03/2016 Cbc With Differential Ord2 WBC 7.27 K/ul 04/03/2016 Cbc With Differential Ord2 RBC 4.35 M/ul 04/03/2016 Cbc With Differential Ord2 HGB 12.6 g/dl 04/03/2016 Cbc With Differential Ord2 HCT 39.7 % 04/03/2016 Cbc With Differential Ord2 Neut% 70.2 % 04/03/2016 Cbc With Differential Ord2 Lymph% 15.8 % 04/03/2016 Cbc With Differential Ord2 MCV 91.3 fl 04/03/2016 Cbc With Differential Ord2 Glasscock% 11.3 % 04/03/2016 Cbc With Differential Ord2 MCH 29.0 pg 04/03/2016 Cbc With Differential Ord2 MCHC 31.7 pg 04/03/2016 Cbc With Differential Ord2 Eos% 2.1 % 04/03/2016 Cbc With Differential Ord2 Baso% 0.6 % 04/03/2016 Cbc With Differential Ord2 PLT 172 K/ul 04/03/2016 Cbc With Differential Ord2 Neut ABS# 5.11 K/ul 04/03/2016 Cbc With Differential Ord2 RDW 14.4 % 04/03/2016 Cbc With Differential Ord2 Lymph ABS# 1.15 K/ul 04/03/2016 Cbc With Differential Ord2 [place]cock ABS# 0.8 K/ul 04/03/2016 Cbc With Differential Ord2 Eos ABS# 0.2 K/ul 04/03/2016 Cbc With Differential Ord2 Baso ABS# 0.0 K/ul 04/03/2016 Tsh Ord6 hTSH II 3.06 uIU/mL 04/03/2016 Free T4 Zuh620 FREE T4 0.99 ng/dL 04/03/2016 Free T4 Pne398 FREE T4 0.81 ng/dL 07/31/2015 Comp Metabolic Pjj061 NA 136 mEq/L 07/31/2015 Comp Metabolic Mpx298 K 3.8 mEq/L 07/31/2015 Comp Metabolic Nlq057 CL 97 mEq/L 07/31/2015 Comp Metabolic Hsv890 CO2 29.0 mEq/L 07/31/2015 Comp Metabolic Hql837 ANION GAP 14 07/31/2015 Comp Metabolic Phj474 GLUCOSE 90 mg/dL 07/31/2015 Comp Metabolic Qmk195 Creat 0.7 mg/dL 07/31/2015 Comp Metabolic Fqh702 eGFR 80 ml/min/1.73m2 07/31/2015 Comp Metabolic Dxb731 BUN 8 mg/dL 07/31/2015 Comp Metabolic Wlu314 B/C Ratio 11.0 Ratio 07/31/2015 Comp Metabolic Cxm424 CALCIUM 8.9 mg/dL 07/31/2015 Comp Metabolic Kqg527 ALK PHOS 102 U/L 07/31/2015 Comp Metabolic Iix525 AST(SGOT) 22 U/L 07/31/2015 Comp Metabolic Piq356 ALT(SGPT) 14 U/L 07/31/2015 Comp Metabolic Pya158 BILI T 0.5 mg/dL 07/31/2015 Comp Metabolic Xll684 ALBUMIN 4.4 g/dL 07/31/2015 Comp Metabolic Hmm551 TPRO 6.7 g/dL 07/31/2015 Comp Metabolic Pdv802 GLOB 2.3 g/dL 07/31/2015 Comp Metabolic Bvp829 A/G Ratio 1.9 Ratio 07/31/2015 Comp Metabolic Jbe313 Osmo 270 mOsmo 07/31/2015 Tsh Ord6 hTSH [...] Lipid Ord30 C/HDL 4.8 Ratio 07/31/2015 Pt [id number] PT 31.9 seconds 07/03/2015 Pt [id number] INR 3.2 07/03/2015 Pt [id number] Low Intensity - 1.5-2.0 07/03/2015 Pt [id number] Mod intensity - 2.0-3.0 07/03/2015 Pt [id number] Hi intensity - 3.0-4.0 07/03/2015 Review of [...] [id number] 06/08/2018 URINALYSIS NONAUTO W/O SCOPE CPT-4: 10251 05/25/2018 ADMIN INFLUENZA VIRUS VAC CPT-4: G0008 05/20/2018 FLU VACC PRSV FREE INC ANTIG CPT-4: 58874 05/20/2018 DRAIN/INJECT JOINT/BURSA CPT-4: 93891 03/23/2018 TRIAMCINOLONE ACET INJ NOS CPT-4: J3301 03/23/2018 DRAIN/INJECT JOINT/BURSA CPT-4: 37911 03/12/2018 TRIAMCINOLONE ACET INJ NOS CPT-4: J3301 03/12/2018 ROCEPHIN, PER 250 MG CPT- 4: J0696 02/08/2018 ADMIN INFLUENZA VIRUS VAC CPT-4: G0008 06/18/2017 FLU VACC PRSV FREE INC ANTIG CPT-4: 46500 06/18/2017 URINALYSIS NONAUTO W/O SCOPE CPT-4: 65620 04/27/2017 URINALYSIS NONAUTO W/O SCOPE CPT-4: 76550 2017 DRAIN/INJECT JOINT/BURSA CPT-4: 59726 03/03/2017 TRIAMCINOLONE ACET INJ NOS CPT-4: J3301 03/03/2017 TRIAMCINOLONE ACET INJ NOS CPT-4: J3301 10/06/2016 ROCEPHIN, PER 250 MG CPT- 4: J0696 10/06/2016 THER/PROPH/DIAG INJ SC/IM CPT-4: 06763 10/06/2016 TRIAMCINOLONE ACET INJ NOS CPT-4: J3301 04/28/2016 URINALYSIS NONAUTO W/O SCOPE CPT-4: 30967 04/03/2016 ADMIN INFLUENZA VIRUS VAC CPT-4: G0008 07/03/2015 FLU VACC PRSV FREE INC ANTIG CPT-4: 42304 07/03/2015 Vital Signs Date Vital 06/29/2018 Blood Pressure 1: 142/80 Code: 8480-6 BMI: 27.8 Code: 15671-7 Heart Rate 1: 89 bpm Height: 5'6" SpO2: 94% Weight: 172 lbs 06/08/2018 Blood Pressure 1: 144/66 Code: 8480-6 BMI: 27.9 Code: 33507-4 Heart Rate 1: 85 bpm Height: 5'6" SpO2: 97% Waist Measure (cm): 97 cm Weight: 173 lbs 05/24/2018 Blood Pressure 1: 128/72 Code: 8480-6 BMI: 27.9 Code: 30159-7 Heart Rate 1: 82 bpm Height: 5'6" SpO2: 92% Weight: 173 lbs 04/06/2018 Blood Pressure 1: 138/88 Code: 8480-6 Heart Rate 1: 86 bpm Height: SpO2: 96% Weight: 03/23/2018 Blood Pressure 1: 150/88 Code: 8480-6 Heart Rate 1: 80 bpm Height: SpO2: 96% Weight: 03/12/2018 Heart Rate 1: 90 bpm Height: Weight: 03/02/2018 Blood Pressure 1: 128/80 Code: 8480-6 BMI: 28.4 Code: 67461-4 Heart Rate 1: 83 bpm Height: 5'6" SpO2: 93% Weight: 176 lbs 02/08/2018 Blood Pressure 1: 142/80 Code: 8480-6 Heart Rate 1: 78 bpm Height: 5'6" SpO2: 94% 12/03/2017 Blood Pressure 1: 124/78 Code: 8480-6 BMI: 27.9 Code: 66757-3 Heart Rate 1: 70 bpm Height: 5'6" SpO2: 97% Weight: 173 lbs 10/27/2017 Blood Pressure 1: 126/60 Code: 8480-6 Heart Rate 1: 65 bpm Height: 5'6" SpO2: 98% Weight: 10/12/2017 Blood Pressure 1: 126/74 Code: 8480-6 BMI: 26.0 Code: 30489-3 Heart Rate 1: 80 bpm Height: 5'6" SpO2: 89% Weight: 161 lbs 10/06/2017 Blood Pressure 1: 126/70 Code: 8480-6 BMI: 27.2 Code: 12645-4 Heart Rate 1: 73 bpm Height: 5'6" SpO2: 97% Weight: 168 lbs 8 oz 08/05/2017 Blood Pressure 1: 152/78 Code: 8480-6 BMI: 27.1 Code: 67852-5 Heart Rate 1: 73 bpm Height: 5'6" SpO2: 98% Weight: 168 lbs 07/06/2017 Blood Pressure 1: 148/70 Code: 8480-6 BMI: 26.6 Code: 84797-0 Heart Rate 1: 80 bpm Height: 5'6" SpO2: 97% Weight: 165 lbs 06/18/2017 Blood Pressure 1: 132/68 Code: 8480-6 BMI: 26.8 Code: 03240-3 Heart Rate 1: 84 bpm Height: 5'6" [...] 1: 162/84 Code: 8480-6 BMI: 28.1 Code: 06479-4 Heart Rate 1: 98 bpm Height: 5'6" SpO2: 97% Weight: 174 lbs 03/03/2017 Blood Pressure 1: 154/88 Code: 8480-6 Heart Rate 1: 96 bpm Height: SpO2: 95% Weight: 01/05/2017 Blood Pressure 1: 142/78 Code: 8480-6 BMI: 28.9 Code: 05133-9 Heart Rate 1: 94 bpm Height: 5'6" SpO2: 95% Weight: 179 lbs 12/19/2016 Blood Pressure 1: 130/74 Code: 8480-6 Heart Rate 1: 91 bpm Height: 5'6" SpO2: 97% Weight: 11/13/2016 Blood Pressure 1: 152/82 Code: 8480-6 BMI: 28.4 Code: 04546-1 Heart Rate 1: 85 bpm Height: 5'6" SpO2: 96% Weight: 176 lbs 10/16/2016 Blood Pressure 1: 148/72 Code: 8480-6 BMI: 28.4 Code: 18014-5 Heart Rate 1: 90 bpm Height: 5'6" SpO2: 96% Weight: 176 lbs 10/06/2016 Blood Pressure 1: 150/80 Code: 8480-6 BMI: 28.4 Code: 38830-7 Heart Rate 1: 76 bpm Height: 5'6" SpO2: 97% Weight: 176 lbs 07/02/2016 Blood Pressure 1: 142/78 Code: 8480-6 BMI: 27.8 Code: 87236-0 Heart Rate 1: 85 bpm Height: 5'6" SpO2: 97% Weight: 172 lbs 05/21/2016 Blood Pressure 1: 166/80 Code: 8480-6 BMI: 27.9 Code: 80595-9 Heart Rate 1: 79 bpm Height: 5'6" SpO2: 98% Weight: 173 lbs 05/07/2016 Blood Pressure 1: 140/70 Code: 8480-6 BMI: 27.9 Code: 71597-0 Heart Rate 1: 82 bpm Height: 5'6" SpO2: 96% Weight: 173 lbs 04/28/2016 Blood Pressure 1: 128/86 Code: 8480-6 BMI: 27.4 Code: 39750-5 Heart Rate 1: 86 bpm Height: 5'6" SpO2: 96% Temperature: 36.1 (C) / 97.0 (F) Weight: 170 lbs 04/07/2016 Blood Pressure 1: 150/80 Code: 8480-6 Heart Rate 1: 94 bpm Height: SpO2: 95% Weight: 04/03/2016 Blood Pressure 1: 122/76 Code: 8480-6 BMI: 27.4 Code: 24479-8 Heart Rate 1: 84 bpm Height: 5'6" SpO2: 94% Weight: 170 lbs 01/31/2016 Blood Pressure 1: 124/82 Code: 8480-6 BMI: 27.8 Code: 04348-0 Heart Rate 1: 100 bpm Height: 5'6" SpO2: 97% Weight: 172 lbs 11/29/2015 Blood Pressure 1: 140/82 Code: 8480-6 Blood Pressure 1: 130/84 Code: 8480-6 BMI: 27.4 Code: 89771-3 Heart Rate 1: 97 bpm Height: 5'6" SpO2: 95% Weight: 170 lbs 10/01/2015 Blood Pressure 1: 130/80 Code: 8480-6 BMI: 27.4 Code: 52567-3 Heart Rate 1: 82 bpm Height: 5'6" SpO2: 97% Weight: 170 lbs 08/30/2015 Blood Pressure 1: 120/68 Code: 8480-6 BMI: 27.6 Code: 77302-0 Heart Rate 1: 91 bpm Height: 5'6" SpO2: 96% Weight: 171 lbs 07/31/2015 Blood Pressure 1: 180/80 Code: 8480-6 BMI: 27.4 Code: 74079-0 Heart Rate 1: 60 bpm Height: 5'6" SpO2: 94% Weight: 170 lbs 07/03/2015 Blood Pressure 1: 154/80 Code: 8480-6 BMI: 27.4 Code: 39889-8 Heart Rate 1: 98 bpm Height: 5'6" SpO2: 95% Weight: 170 lbs 04/10/2015 Blood Pressure 1: 138/72 Code: 8480-6 BMI: 27.8 Code: 92095-8 Heart Rate 1: 82 bpm Height: 5'6" SpO2: 98% Weight: 172 lbs 01/11/2015 Blood Pressure 1: 132/74 Code: 8480-6 BMI: 28.6 Code: 51446-9 Heart Rate 1: 88 bpm Height: 5'6" [...] data Encounters Encounter Performer Location Codes Date [id number]) 69314 EST. PATIENT, LEVEL IV Diagnosis: Essential (primary) hypertension[ICD10: I10] Diagnosis: Atrophy of thyroid (acquired)[ICD10: E03.4] Diagnosis: Other fatigue[ICD10: R53.83] Diagnosis: Other insomnia[ICD10: G47.09] Carleen Anaya MD, [facility] CPT-4: 27941 06/29/2018 ([id number]) 89410 EST. PATIENT, LEVEL IV Diagnosis: Localized edema[ICD10: R60.0] Diagnosis: Muscle weakness (generalized)[ICD10: M62.81] Diagnosis: Dysuria[ICD10: R30.0] Diagnosis: residential (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 of anticoagulants[ICD10: Z79.01] Diagnosis: Essential (primary) hypertension[ICD10: I10] Mimi Anaya MD, [facility] CPT-4: 42073 05/24/2018 ([id number]) 32096 EST. PATIENT, LEVEL III Diagnosis: Lumbago with sciatica, right side[ICD10: M54.41] Diagnosis: Sciatica, right side[ICD10: M54.31] Carleen Anaya MD, [facility] CPT- 4: 82991 04/06/2018 ([id number]) 98416 EST. PATIENT, LEVEL III Diagnosis: Lumbago with sciatica, right side[ICD10: M54.41] Diagnosis: Sciatica, right side[ICD10: M54.31] Carleen Anaya MD, [facility] CPT- 4: 84782 03/23/2018 66897 EST. PATIENT, LEVEL III Diagnosis: Low back pain[ICD10: M54.5] Diagnosis: Sacroiliitis, not elsewhere classified[ICD10: M46.1] Wenid Anaya MD, [facility] CPT-4: 39738 03/12/2018 ([id number]) 01988 EST. PATIENT, LEVEL IV Diagnosis: Atrophy of thyroid (acquired)[ICD10: E03.4] Diagnosis: Essential (primary) hypertension[ICD10: I10] Diagnosis: Urge incontinence[ICD10: N39.41] Carleen Anaya MD, [facility] CPT-4: 71576 03/02/2018 ([id number]) 63162 EST. PATIENT, LEVEL III Diagnosis: Cellulitis of face[ICD10: L03.211] Mimi Anaya MD, [facility] CPT- 4: 80598 02/08/2018 ([id number]) 80510 EST. PATIENT, LEVEL IV Diagnosis: Atrophy of thyroid (acquired)[ICD10: E03.4] Diagnosis: Essential (primary) hypertension[ICD10: I10] Diagnosis: Urge incontinence[ICD10: N39.41] Carleen Anaya MD, [facility] CPT-4: 19499 12/03/2017 74056 EST. PATIENT, LEVEL IV Diagnosis: Essential (primary) hypertension[ICD10: I10] Diagnosis: Weakness[ICD10: R53.1] Diagnosis: Low back pain[ICD10: M54.5] Diagnosis: Other allergic rhinitis[ICD10: J30.89] Wendi Anaya MD, [facility] CPT- 4: 83964 10/27/2017 14533 EST. PATIENT, LEVEL IV Diagnosis: Pneumonia due to other specified bacteria[ICD10: J15.8] Diagnosis: Chronic systolic (congestive) heart failure[ICD10: I50.22] Wendi Anaya MD, [facility] CPT-4: 35409 10/12/2017 ([id number]) 54695 EST. PATIENT, LEVEL IV Diagnosis: Atrophy of thyroid (acquired)[ICD10: E03.4] Diagnosis: Nonscarring hair loss, unspecified[ICD10: L65.9] Diagnosis: Essential (primary) hypertension[ICD10: I10] Carleen Anaya MD, [facility] CPT-4: 20233 10/06/2017 ([id number]) 43485 EST. PATIENT, LEVEL IV Diagnosis: Atrophy of thyroid (acquired)[ICD10: E03.4] Diagnosis: Essential (primary) hypertension[ICD10: I10] Diagnosis: Localized edema[ICD10: R60.0] Carleen Anaya MD, [facility] CPT-4: 29443 08/05/2017 ([id number]) 42011 EST. PATIENT, LEVEL IV Diagnosis: Essential (primary) hypertension[ICD10: I10] Diagnosis: Weakness[ICD10: R53.1] Diagnosis: Other fecal abnormalities[ICD10: R19.5] Carleen Anaya MD, [facility] CPT-4: 25580 07/06/2017 ([id number]) 02762 EST. 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 PATIENT, LEVEL IV Diagnosis: Pain in right shoulder[ICD10: M25.511] Diagnosis: Weakness[ICD10: R53.1] Diagnosis: Other fatigue[ICD10: R53.83] Diagnosis: Other malaise[ICD10: R53.81] Wendi Anaya MD, [facility] CPT-4: 17825 05/11/2017 ([id number]) Miscellaneous no charge Diagnosis: Essential (primary) hypertension[ICD10: I10] Mimi Anaya MD, [facility] CPT-4: 03144 04/30/2017 ([id number]) 08526 EST. PATIENT, LEVEL III Diagnosis: Acute recurrent maxillary sinusitis[ICD10: J01.01] Diagnosis: Urinary tract infection, site not specified[ICD10: N39.0] Mimi Anaya MD, [facility] CPT-4: 05777 04/27/2017 ([id number]) 00688 EST. PATIENT, LEVEL IV Diagnosis: Atrophy of thyroid (acquired)[ICD10: E03.4] Diagnosis: Essential (primary) hypertension[ICD10: I10] Diagnosis: Iron deficiency[ICD10: E61.1] Diagnosis: Other specified heart block[ICD10: I45.5] Carleen Anaya MD [facility] CPT-4: 16455 04/08/2017 93283 EST. PATIENT, LEVEL III Diagnosis: Low back pain[ICD10: M54.5] Diagnosis: Sacroiliitis, not elsewhere classified[ICD10: M46.1] Wendi Anaya MD [facility] CPT-4: 02595 03/03/2017 ([id number]) 30198 EST. 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 PATIENT, LEVEL III Diagnosis: Cervicalgia[ICD10: M54.2] Diagnosis: Other muscle spasm[ICD10: M62.838] Wendi Anaya MD [facility] CPT-4: 30402 12/19/2016 ([id number]) 71051 EST. PATIENT, LEVEL III Diagnosis: Essential (primary) hypertension[ICD10: I10] Diagnosis: Gastro-esophageal reflux disease without esophagitis[ICD10: K21.9] Carleen Anaya MD [facility] CPT-4: 14408 11/13/2016 ([id number]) 06436 EST. PATIENT, LEVEL III Diagnosis: Pain in right shoulder[ICD10: M25.511] Diagnosis: Insomnia due to medical condition[ICD10: G47.01] Carleen Anaya MD, [facility] CPT-4: 19496 10/16/2016 ([id number]) 97665 EST. PATIENT, LEVEL IV Diagnosis: Pneumonia due to other specified bacteria[ICD10: J15.8] Diagnosis: Pain in right shoulder[ICD10: M25.511] Diagnosis: Cough[ICD10: R05] Carleen Anaya MD [facility] CPT-4: 40582 10/06/2016 ([id number]) 49815 EST. PATIENT, LEVEL IV Diagnosis: Essential (primary) hypertension[ICD10: I10] Diagnosis: Personal history of other specified conditions[ICD10: Z87.898] Diagnosis: Unsteadiness on feet[ICD10: R26.81] Carleen Anaya MD, [facility] CPT- 4: 65229 07/02/2016 ([id number]) 53808 EST. PATIENT, LEVEL IV Diagnosis: Dysphagia, pharyngeal phase[ICD10: R13.13] Diagnosis: Urge incontinence[ICD10: N39.41] Diagnosis: Gastro-esophageal reflux disease without esophagitis[ICD10: K21.9] Carleen Anaya MD, [facility] CPT-4: 76309 05/21/2016 ([id number]) 78953 EST. PATIENT, LEVEL III Diagnosis: Gastro-esophageal reflux disease without esophagitis[ICD10: K21.9] Carleen Anaya MD, [facility] CPT-4: 61883 05/07/2016 ([id number]) 11026 EST. PATIENT, LEVEL III Diagnosis: Acute laryngopharyngitis[ICD10: J06.0] Diagnosis: Dysphagia, pharyngeal phase[ICD10: R13.13] Diagnosis: Allergic rhinitis due to pollen[ICD10: J30.1] Mimi Anaya MD, [facility] CPT-4: 61287 04/28/2016 ([id number]) Miscellaneous no charge Diagnosis: Acute laryngopharyngitis[ICD10: J06.0] Wendi Anaya MD, [facility] CPT- 4: 88652 04/10/2016 68521 EST. 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 PATIENT, LEVEL IV Diagnosis: Essential (primary) hypertension[ICD10: I10] Diagnosis: Hypothyroidism, unspecified[ICD10: E03.9] Diagnosis: Other fatigue[ICD10: R53.83] Diagnosis: Urge incontinence[ICD10: N39.41] Mimi Anaya MD, [facility] CPT- 4: 85576 04/03/2016 ([id number]) 45224 EST. PATIENT, LEVEL IV Diagnosis: Essential (primary) hypertension[ICD10: I10] Diagnosis: Pain in right ankle and joints of right foot[ICD10: M25.571] Diagnosis: Dizziness and giddiness[ICD10: R42] Diagnosis: Tinnitus, bilateral[ICD10: H93.13] Mimi Anaya MD, [facility] CPT- 4: 35958 01/31/2016 ([id number]) 36752 EST. PATIENT, LEVEL IV Diagnosis: Essential (primary) hypertension[ICD10: I10] Diagnosis: Otalgia, right ear[ICD10: H92.01] Diagnosis: Allergic rhinitis due to pollen[ICD10: J30.1] Diagnosis: Hypothyroidism, unspecified[ICD10: E03.9] Mimi Anaya MD, [facility] CPT-4: 59385 11/29/2015 ([id number]) 00770 EST. PATIENT, LEVEL IV Diagnosis: Essential (primary) hypertension[ICD10: I10] Diagnosis: Urge incontinence[ICD10: N39.41] Diagnosis: Unspecified dementia without behavioral disturbance[ICD10: F03.90] Mimi Anaya MD, [facility] CPT-4: 68104 10/01/2015 ([id number]) 77549 EST. PATIENT, LEVEL IV Diagnosis: Essential (primary) hypertension[ICD10: I10] Diagnosis: Hypothyroidism, unspecified[ICD10: E03.9] Diagnosis: Unspecified dementia without behavioral disturbance[ICD10: F03.90] Diagnosis: Urge incontinence[ICD10: N39.41] Mimi Anaya MD, [facility] CPT- 4: 24058 08/30/2015 ([id number]) 34917 EST. PATIENT, LEVEL IV Diagnosis: Essential (primary) hypertension[ICD10: I10] Diagnosis: Hypothyroidism, unspecified[ICD10: E03.9] Diagnosis: Hyperlipidemia, unspecified[ICD10: E78.5] Carleen Anaya MD, [facility] CPT-4: 18571 07/31/2015 ([id number]) 89643 EST. 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 PATIENT, LEVEL IV Diagnosis: ESSENTIAL HYPERTENSION[ICD9: 401.9] Diagnosis: MACULAR DEGENERATION[ICD9: 362.50] Diagnosis: Peripheral vascular disease[ICD9: 443.9] Diagnosis: Neuropathy[ICD9: 355.9] Carleen Anaya MD, [facility] CPT-4: 77917 04/10/2015 ([id number]) OFFICE/OUTPATIENT VISIT NEW Diagnosis: ESSENTIAL HYPERTENSION[ICD9: 401.9] Diagnosis: HYPOTHYROIDISM[ICD9: 244.9] Diagnosis: URGE INCONTINENCE[ICD9: 788.31] Diagnosis: Constipation - functional[ICD9: 564.09] Carleen Anaya MD, [facility] CPT-4: 43295 01/11/2015 Plan of Care Planned Activity Notes [...] this time. 06/29/2018 Appointment: Carleen Anaya WPtel: [address] [place] [address] (15 min) Moderate 06/29/2018 Patient Education: Patient [...] care surrogate. 06/08/2018 Appointment: Mimi Espinosa WPtel: [address] [place] [address] - Annual Wellness Visit 06/08/2018 Patient Education: [...] edema. Weakness-fatigue- check labs Dysuria- check UA CQL-iqvoeevdfk-qw changes in medications 05/24/2018 Appointment: Mimi Espinosa WPtel: [address] [place] [address] (15 min) Moderate 05/24/2018 Patient Education: Patient Medication Summary Completed 05/24/2018 Appointment: Injection 05/20/2018 Patient Education: Patient Medication Summary Completed 05/20/2018 Visit Plan: Sciatica- pt to continue with aleve twice daily and cyclobenzaprine x 1 week. Pt is to call if the symptoms do not improve or if they worsen. referral to [facility] physical therapy. 04/06/2018 Appointment: Carleen Anaya WPtel: [address] [place] [address] (15 min) Moderate 04/06/2018 Patient Education: Patient [...] do not improve or if they worsen. [id number] - andrew 03/23/2018 Appointment: Carleen Anaya WPtel: [phone] [facility] (15 min) Moderate 03/23/2018 Patient Education: [...] injection. 03/12/2018 Appointment: Wendi Uriostegui WPtel: [phone] [facility] (30 min) Complex 03/12/2018 Patient Education: Patient [...] symptoms - continue with myrbetric 03/02/2018 Appointment: Calreen Anaya WPtel: [phone] [facility] [place] (15 min) Moderate 03/02/2018 Patient Education: Patient Medication Summary Completed 03/02/2018 Appointment: (10 min) Simple 02/09/2018 Visit Plan: Cellulitis - start oral antibiotics as directed, return to clinic as directed, call for acute change in symptoms, worsening redness, warmth, discharge. 02/08/2018 Appointment: Mimi Espinosa WPtel: [phone] (15 min) Moderate 02/08/2018 Patient Education: Patient [...] 50mg daily. 12/03/2017 Appointment: Carleen Anaya WPtel: [facility] (15 min) Moderate 12/03/2017 Patient Education: Patient [...] allergy spray. 10/27/2017 Appointment: Wendi Uriostegui [facility]Ptel: [facility] (15 min) Moderate 10/27/2017 Patient Education: Patient Medication Summary Completed 10/27/2017 Visit Plan: Pneumonia - Pt has been diagnosed with pneumonia by physical exam. A chest xray has been ordered as have antibiotics. The pt is aware of the diagnosis and the need for acute treatment of this illness. 10/12/2017 Appointment: Wend[facility] Uriostegui [phone] (15 min) Moderate 10/12/2017 Patient Education: Patient [...] today. 10/06/2017 Appointment: Carleen Anaya [facility]Ptel[phone] [place] [place] (15 min) Moderate 10/06/2017 Patient Education: [...] prn. 08/05/2017 Appointment: Carleen Anaya [facility]el[phone] [place] (15 min) Moderate 08/05/2017 Patient Education: Patient Medication Summary Completed 08/05/2017 Appointment: Carleen Anaya WPtel: [phone] [facility] (15 min) Moderate 07/14/2017 Visit Plan: [...] voltaren gel. 07/06/2017 Appointment: Carleen Anaya WPtel: [facility] (15 min) Moderate 07/06/2017 Patient Education: [...] shot today 06/18/2017 Appointment: Carleen Anaya [facility]Ptel[phone] [place] (15 min) Moderate 06/18/2017 Patient Education: Patient Medication Summary Completed 06/18/2017 Appointment: Nurse Visit 05/12/2017 Care Plan: X-RAY EXAM OF SHOULDER LOINC : 69250-7 Pending 05/12/2017 Visit Plan: Weakness, fatigue, malaise - Discussed with Dr. Anaya - pt sent for IV fluids, will check labs and UA - will treat as indicated - pt is to keep her appointment with her tip tester for her ECHO and Carotid US. Pt is to follow up with her oncologist. Right shoulder pain after fall - will send for X-ray - The pt is to use prn antiinflammatories to manage acute pain. The patient is to call the office if the pain is worsening or does not improve. 05/11/2017 Appointment: Wendi Uriostegui WPtel: [phone] [facility] [place] (30 min) Complex 05/11/2017 Patient Education: [...] plan. 04/27/2017 Appointment: [facility] Espinosa [phone] [place] (15 min) Moderate 04/27/2017 Patient Education: [...] heart beat - recommended evaluation by her Train Examiner - Dr. Butler - I attempted a phone call to the office of Dr. Butler, I had to leave a message on the answering machine. If i don't hear back from Dr. Butler's office, we will need to do a Holter monitor on patient. 04/08/2017 Appointment: Carleen Anaya [facility]Ptel[phone] (15 min) Moderate 04/08/2017 Patient Education: Patient Medication Summary Completed 04/08/2017 Care Plan: Referral Order SNOMED-CT : [id number] Pending 04/08/2017 Visit Plan: UTI - pt [...] injection. 03/03/2017 Appointment: Wendi Uriostegui [facility]Ptel[phone] (30 min) Complex 03/03/2017 Patient Education: Patient [...] of control. 01/05/2017 Appointment: Carleen Anaya WPtel: [facility]7 [facility] (15 min) Moderate 01/05/2017 Patient Education: Patient Medication Summary Completed 01/05/2017 Visit Plan: Neck Pain- pt to start with aspercreme or biofreeze to neck three times daily and start neck exercises daily. Will send RX - The patient is to call the office if the pain is worsening or does not improve. 12/19/2016 Appointment: Wendi Uriostegui WPtel: [facility] (30 min) Complex 12/19/2016 Patient Education: Patient [...] not improving. 11/13/2016 Appointment: Carleen Anaya WPtel: [facility]8 [facility] (15 min) Moderate 11/13/2016 Patient Education: Patient Medication Summary Completed 11/13/2016 Visit Plan: Insomnia -extended release melatonin - you can take up to 10mg of melatonin sleepy time tea - - use warm milk in the tea. Right shoulder - pt to continue with therapy, anti-inflammatory 10/16/2016 Appointment: Carleen Anaya WPtel: [facility]1 [facility] (15 min) Moderate 10/16/2016 Patient Education: [...] pt. 10/06/2016 Appointment: Carleen Anaya WPtel: [phone] [facility] (15 min) Moderate 10/06/2016 Patient Education: Patient Medication Summary Completed 10/06/2016 Care Plan: X-RAY EXAM OF SHOULDER LOINC : 54716-4 Pending 10/06/2016 Appointment: Carleen Anaya WPtel: [phone] [facility] (30 min) Complex 10/01/2016 Referral: [facility] W[facility]: [address] [facility] Patient informed. Completed 07/08/2016 Visit Plan: [...] discussed therapy. 07/02/2016 Appointment: Carleen Anaya WPtel: [facility]5 [facility] (15 min) Moderate 07/02/2016 Patient Education: Patient Medication Summary Completed 07/02/2016 Care Plan: Referral Order SNOMED-CT : [id number] Pending 07/02/2016 Visit Plan: Hypertension - well [...] planning on getting a flu shot at [facility] and she is due for another pneumovax- last pneumovax was in 2008 - so she can have pneumovax now and the prevnar in 2017 05/21/2016 Appointment: Carleen Anaya WPtel: [address] [place] [address] (15 min) Moderate 05/21/2016 Patient Education: Patient Medication Summary Completed 05/21/2016 Referral: Medardo Del Real [address] Referral Completed 05/12/2016 Visit Plan: Esophageal [...] times daily 05/07/2016 Appointment: Carleen Anaya WPtel: [address] [place] [address] (15 min) Moderate 05/07/2016 Patient Education: Patient Medication Summary Completed 05/07/2016 Appointment: Mimi Espinosa WPtel: [address] [place], [place] [id number] (30 min) Complex 05/01/2016 Visit Plan: Allergies [...] Kenalog injection today in the office Sore vlxcjd-gamlaamvd-yvgow dexilant-refer to Dr Del Real for evaluation 04/28/2016 Appointment: Mimi Espinosa WPtel: [address] [place], [place] [phone] (30 min) Complex 04/28/2016 Patient Education: Patient [...] medication switched. 04/07/2016 Appointment: Wendi Uriostegui [facility]el[facility] (30 min) Complex 04/07/2016 Patient Education: Patient [...] atigue-check labs including UA-culture if positive Urge razkgfvkdfis-nkdpmiuyc-cestb UA with C&S 04/03/2016 Appointment: M[facility] Espinosa [phone] [phone] (30 min) Complex 04/03/2016 Patient Education: Patient Medication Summary Completed 04/03/2016 Visit Plan: Hypertension - well controlled - continue with current medications, continue with no added salt diet. Pt has been encouraged to exercise daily. The pt has been advised to call the office if there are any acute concerns about change in blood pressure readings at home. Gfakmjntz-pvckayla-wscjdpqw MRI brain Right ankle rztk-bgpiapg-qshd right ankle- plan to refer to physical therapy if appropriate 01/31/2016 Appointment: iMmi Espinosa WPtel: [phone] [phone] (30 min) Complex 01/31/2016 Patient Education: Patient [...] liver response to medications. 07/31/2015 Appointment: [facility]al[phone] (15 min) Moderate 07/31/2015 Patient Education: Patient Medication Summary Completed 07/31/2015 Patient Education: Hypertension Completed 07/31/2015 Care Plan: Referral Order SNOMED-CT : [id number] Ordered 07/31/2015 Visit Plan: Hypertension - uncontrolled [...] pt to start on Nortryptyline 07/03/2015 Appointment: Héctor Carleen [facility]el[phone] [place] (15 min) [...] Completed 01/11/2015 Referral: [facility] WPtel: [facility] [address] Referral Appointment Requested Referral: External, Ordering Provider Referral Appointment Requested Referral: External, Ordering Provider Referral Relationship Referral: Medardo Del Real [address] Referral Appointment Requested Instructions Comment Flonase [...] planning on getting a flu shot at [facility] and she is due for another [...] heart beat - recommended evaluation by her Train Examiner - Dr. Butler - I attempted a [...] Kenalog injection today in the office Sore lzalqw-ovihgnhxi-adpeu dexilant-refer to Dr Del Real for evaluation [...] Fatigue-check labs including UA-culture if positive Urge xnjfdmnqxbhm-xdswirois-pvdtz UA with C&S add z-pack, continue cefdinir [...] edema. Weakness-fatigue- check labs Dysuria- check UA MGG-yautloatuv-uf changes in medications . Hypertension - well controlled - continue with current medications, continue with no added salt diet. Pt has been encouraged to exercise daily. The pt has been advised to call the office if there are any acute concerns about change in blood pressure readings at home. Wmcwnzobs-hacmfcrc-unwsnhxk MRI brain Right ankle rrbs-mfqyoqq-nsmw right ankle-plan to refer to physical therapy [...] improve or if they worsen. referral to [facility] physical therapy. . Hypertension - [...] do not improve or if they worsen. [id number] - kenalog Stop Oxybutynin chloride ER. Start [...] is to keep her appointment with her tip tester for her ECHO and Carotid US. Pt [...]
--- OUTSIDE RECORDS SUMMARY | 2019-01-01 12:55 | XMS REPORT | CCD ---
Author Author [facility] Organization [facility] Address [address] [place] [address] Phone Care Team Providers Care Disposal Operator Name Role Phone PP Unavailable CCM Unavailable Summary Purpose Interface Exchange Insurance Providers Payer name Policy type / Coverage type Covered green party ID Effective Begin Date Effective End Date WPS Medicare Part B Medicare Part B [id number] Unknown Unknown [facility] Medicare Part B [id number] Unknown Unknown Family history Father Diagnosis Age At Onset Cancer Unknown Arthritis Unknown Mother Diagnosis Age At Onset Breast cancer Unknown Arthritis Unknown Social History Social History Element Codes Description Effective Dates Alcohol history Unknown occasionally drinks alcohol 06/08/2018 Frequency of drinks SNOMED CT: 905584305 Drinks rarely 06/08/2018 Marital status Unknown 01/11/2015 Number of children Unknown 3 01/11/2015 Employment Unknown Retired 01/11/[address]: 4698638 Quit over 10 years ago 1950 01/11/[address]: 882793819 Never drinks alcohol 01/11/2015 Allergies, Adverse Reactions, Alerts Substance Reaction Codes Entered Date Inactivated Date Status * OTHER REACTION - SEE ANSWER BOX vancogein red Unknown 01/11/2015 No Inactive Date Active CODEINE RxNorm: 2670 01/11/2015 No Inactive Date Active demerol RxNorm: 389210 08/30/2015 No Inactive Date Active hydrocodone Unknown [...] ICD-9: 782.3 ICD-10: R60.0 Active 08/05/2017 Unknown halfway (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 of anticoagulants ICD-9: V58.61 ICD-10: [...] edema ICD-9: 782.3 ICD-10: R60.0 08/05/2017 Active halfway (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 of anticoagulants ICD-9: V58.61 ICD-10: [...] Start Date Stop Date Status Fill Instructions Vitamin D3 400 unit capsule RxNorm: 757748 1 Capsule(s) PO daily 06/17/2018 No Stop Date Active Aspirin Low Dose 81 mg tablet,delayed release RxNorm: 987124 1 Tablet(s) PO BIW on Thursday and Thursday06/17/2018 No Stop Date Active biotin 1,000 mcg chewable tablet RxNorm: 4996217 1 Tablet(s) PO daily 06/17/2018 No Stop Date Active Vitamin B-12 500 mcg tablet RxNorm: 422279 1 Tablet(s) PO daily 06/17/2018 No Stop Date Active Colace 100 mg capsule RxNorm: 8933858 1 Capsule(s) PO QHS 06/08/2018 No Stop Date Active Coumadin 3 mg tablet RxNorm: 514751 1 Tablet(s) PO daily x5 days and 2 mg x2 days -Managed by Dr. Bowman 06/08/2018 No Stop Date Active Keflex 500 mg capsule RxNorm: 507850 1 Capsule(s) PO TID 05/25/2018 05/31/2018 Inactive metoprolol succinate ER 100 mg tablet,extended release 24 hr RxNorm: 008675 Tablet(s) TAKE ONE TABLET BY MOUTH ONCE DAILY 05/19/2018 No Stop Date Active Coumadin 3 mg tablet RxNorm: 970092 1 Tablet(s) PO daily -Managed by Dr. Bowman 05/04/2018 06/07/2018 Inactive Synthroid 175 mcg tablet RxNorm: 949108 TAKE 1 TABLET BY MOUTH ONCE DAILY 04/06/2018 06/07/2018 Inactive cyclobenzaprine 5 mg tablet RxNorm: 600890 1/2 Tablet(s) PO TID 04/06/2018 04/15/2018 Inactive Synthroid 200 mcg tablet RxNorm: 597305 1 Tablet(s) PO TIW Thu Sun 04/05/2018 08/02/2018 Active brand name only- Alternate with 175mcg dose schedule Synthroid 175 mcg tablet RxNorm: 216261 1 Tablet(s) PO 4 times a week Thu04/05/2018 09/01/2018 Active alternate with 175mcg order cyclobenzaprine 5 mg tablet RxNorm: 507083 1/2 Tablet(s) PO TID 03/23/2018 04/01/2018 Inactive tramadol 50 mg tablet RxNorm: 860779 1 Tablet(s) PO TID as needed 03/17/2018 No Stop Date Active Kenalog 40 mg/mL suspension for injection RxNorm: 9135859 2 Milliliter(s) Inj 03/12/2018 03/12/2018 Inactive prednisone 20 mg tablet RxNorm: 737692 2 Tablet(s) PO daily 03/11/2018 03/10/2018 Inactive prednisone 20 mg tablet RxNorm: 692673 2 Tablet(s) PO daily 03/11/2018 03/15/2018 Inactive losartan 25 mg tablet RxNorm: 275419 TAKE ONE TABLET BY MOUTH ONCE DAILY 02/16/2018 No Stop Date Active doxycycline hyclate 100 mg tablet RxNorm: 3580753 1 Tablet(s) PO BID 02/08/2018 02/14/2018 Inactive ceftriaxone 500 mg solution for injection RxNorm: 0926899 Inj 02/08/2018 02/08/2018 Inactive dapsone 25 mg tablet RxNorm: 089599 2 Tablet(s) PO daily 02/08/2018 02/12/2018 Inactive metoprolol succinate ER 100 mg tablet,extended release 24 hr RxNorm: 063745 TAKE ONE TABLET BY MOUTH ONCE DAILY 01/05/2018 05/18/2018 Inactive Synthroid 175 mcg tablet RxNorm: 863328 1 Tablet(s) PO daily 01/01/2018 03/31/2018 Inactive Synthroid 175 mcg tablet RxNorm: 052232 1 Tablet(s) PO daily 01/01/2018 12/31/2017 Inactive Myrbetriq 50 mg tablet,extended release RxNorm: 8277751 1 Tablet(s) PO daily 12/03/2017 01/01/2018 Inactive Zithromax Z-Oliver 250 mg tablet RxNorm: 819947 1 Tablet(s) PO UD 10/12/2017 10/16/2017 Inactive Tessalon Perles 100 mg capsule RxNorm: 781755 2 Capsule(s) PO TID as needed 10/12/2017 10/16/2017 Inactive prednisone 20 mg tablet RxNorm: 853283 2 Tablet(s) PO daily 10/12/2017 10/16/2017 Inactive cefdinir 300 mg capsule RxNorm: 566612 1 Capsule(s) PO BID 10/08/2017 10/07/2017 Inactive Synthroid 150 mcg tablet RxNorm: 776623 1 Tablet(s) PO daily in morning, except 1/2 Tablet PO Thu, Sat, take 30 minutes before meal 10/08/2017 04/04/2018 Inactive brand name only cefdinir 300 mg capsule RxNorm: 379756 1 Capsule(s) PO BID 10/08/2017 10/14/2017 Inactive Synthroid 150 mcg tablet RxNorm: 611978 1 Tablet(s) PO daily in morning, take 30 minutes before meal 10/06/2017 10/07/2017 Inactive brand name only cefdinir 300 mg capsule RxNorm: 331598 1 Capsule(s) PO BID 08/24/2017 08/30/2017 Inactive Zithromax Z-Oliver 250 mg tablet RxNorm: 773911 1 Tablet(s) PO UD 08/20/2017 08/19/2017 Inactive Zithromax Z-Oliver 250 mg tablet RxNorm: 124798 1 Tablet(s) PO UD 08/20/2017 08/24/2017 Inactive Synthroid 150 mcg tablet RxNorm: 332502 1 Tablet(s) PO daily in morning, take 30 minutes before meal 08/05/2017 08/04/2017 Inactive Synthroid 150 mcg tablet RxNorm: 569256 1 Tablet(s) PO daily in morning, take 30 minutes before meal 08/05/2017 10/05/2017 Inactive Coumadin 3 mg tablet RxNorm: 643030 1 Tablet(s) PO Thursday, , , and Sat- Managed by Dr. Bowman -Managed by Dr. Bowman 08/05/2017 05/03/2018 Inactive pantoprazole 40 mg tablet,delayed release RxNorm: 735378 1 Tablet(s) PO BID 07/08/2017 07/02/2018 Active pantoprazole 40 mg tablet,delayed release RxNorm: 253040 1 Tablet(s) PO BID 07/08/2017 07/07/2017 Inactive metoprolol succinate ER 100 mg tablet,extended release 24 hr RxNorm: 009673 TAKE ONE TABLET BY MOUTH ONCE DAILY 07/08/2017 01/04/2018 Inactive Coumadin 3 mg tablet RxNorm: 950754 1 Tablet(s) PO QPM -Managed by Dr. Bowman 07/06/2017 08/04/2017 Inactive Coumadin 3 mg tablet RxNorm: 091261 1 Tablet(s) PO QPM at 6:00pm Managed by Dr Bowman 1/2 pill on thursday and thursday, full pill other days 06/18/2017 07/05/2017 Inactive Voltaren 1 % topical gel RxNorm: 669578 2 TOP QID 06/18/2017 10/15/2017 Inactive Micro-K 10 10 mEq capsule,extended release RxNorm: 400009 1 Capsule(s) PO daily 05/08/2017 12/02/2017 Inactive Synthroid 137 mcg tablet RxNorm: 913869 1 Tablet(s) PO QAM 05/08/2017 08/04/2017 Inactive Dose increased 04/14/17 pravastatin 10 mg tablet RxNorm: 939072 1 Tablet(s) PO daily TAKE ONE TABLET BY MOUTH ONCE DAILY 05/08/2017 12/02/2017 Inactive losartan 25 mg tablet RxNorm: 843938 1 Tablet(s) PO daily TAKE ONE TABLET BY MOUTH ONCE DAILY 05/08/2017 06/07/2018 Inactive Namenda 10 mg tablet RxNorm: 322487 TAKE ONE TABLET BY MOUTH TWICE DAILY 05/07/2017 12/02/2017 Inactive Keflex 500 mg capsule RxNorm: 967850 1 Capsule(s) PO TID 04/27/2017 05/03/2017 Inactive Synthroid 137 mcg tablet RxNorm: 092269 1 Tablet(s) PO QAM 04/14/2017 04/13/2017 Inactive Vitamin D2 50,000 unit capsule RxNorm: 333681 1 Capsule(s) PO QW 04/14/2017 12/02/2017 Inactive Synthroid 137 mcg tablet RxNorm: 200772 1 Tablet(s) PO QAM 04/14/2017 05/07/2017 Inactive losartan 25 mg tablet RxNorm: 768545 TAKE ONE TABLET BY MOUTH ONCE DAILY 03/23/2017 05/07/2017 Inactive Synthroid 125 mcg tablet RxNorm: 317820 TAKE ONE TABLET BY MOUTH ONCE DAILY 03/12/2017 04/12/2017 Inactive ciprofloxacin 500 mg tablet RxNorm: 733211 1 Tablet(s) PO BID 2017 03/13/2017 Inactive prednisone 20 mg tablet RxNorm: 496892 2 Tablet(s) PO daily 03/03/2017 03/07/2017 Inactive tramadol 50 mg tablet RxNorm: 655426 1/2 Tablet(s) PO TID as needed 03/03/2017 12/02/2017 Inactive pravastatin 10 mg tablet RxNorm: 317184 TAKE ONE TABLET BY MOUTH ONCE DAILY 01/19/2017 05/07/2017 Inactive nortriptyline 10 mg capsule RxNorm: 777397 TAKE ONE CAPSULE BY MOUTH ONCE DAILY IN THE EVENING 01/14/2017 12/02/2017 Inactive Voltaren 1 % topical gel RxNorm: 569866 TOP QID 12/22/2016 02/19/2017 Inactive Voltaren 1 % topical gel RxNorm: 192364 TOP QID 12/22/2016 12/21/2016 Inactive prednisone 20 mg tablet RxNorm: 313875 2 Tablet(s) PO daily 12/19/2016 12/23/2016 Inactive cyclobenzaprine 5 mg tablet RxNorm: 135320 1/2 Tablet(s) PO BID as needed 12/19/2016 12/23/2016 Inactive Flector 1.3 % transdermal 12 hour patch RxNorm: 326496 1 Patch TOP every 12 hours as needed 12/19/2016 12/02/2017 Inactive losartan 25 mg tablet RxNorm: 848607 1 Tablet(s) PO daily TAKE ONE TABLET BY MOUTH ONCE DAILY 11/13/2016 03/22/2017 Inactive Namenda 10 mg tablet RxNorm: 746290 TAKE ONE TABLET BY MOUTH TWICE DAILY 10/28/2016 04/25/2017 Inactive nortriptyline 10 mg capsule RxNorm: 864328 TAKE ONE CAPSULE BY MOUTH ONCE DAILY IN THE EVENING 10/13/2016 01/10/2017 Inactive ceftriaxone 500 mg solution for injection RxNorm: 8890898 Inj 10/06/2016 10/06/2016 Inactive cefdinir 300 mg capsule RxNorm: 855083 1 Capsule(s) PO BID 10/06/2016 10/12/2016 Inactive prednisone 20 mg tablet RxNorm: 310221 2 Tablet(s) PO daily 10/06/2016 10/08/2016 Inactive ProAir RespiClick 90 mcg/actuation breath activated RxNorm: 1237922 2 INH TID x 3 days then one inhale tid x 3 days then prn shortness of breath 10/06/2016 11/04/2016 Inactive Kenalog 40 mg/mL suspension for injection RxNorm: 3068685 1 Milliliter(s) Inj 10/06/2016 10/06/2016 Inactive Myrbetriq 50 mg tablet,extended release RxNorm: 2478789 1 Tablet(s) PO daily 09/11/2016 11/12/2016 Inactive Namenda 10 mg tablet RxNorm: 092814 TAKE ONE TABLET BY MOUTH TWICE DAILY 07/25/2016 10/22/2016 Inactive hydrochlorothiazide 25 mg tablet RxNorm: 150807 1 Tablet(s) PO daily 07/25/2016 12/02/2017 Inactive Synthroid 125 mcg tablet RxNorm: 467463 TAKE ONE TABLET BY MOUTH ONCE DAILY 07/14/2016 03/10/2017 Inactive losartan 25 mg tablet RxNorm: 576645 TAKE ONE TABLET BY MOUTH ONCE DAILY 07/07/2016 11/12/2016 Inactive metoprolol succinate ER 100 mg tablet,extended release 24 hr RxNorm: 994990 1 Tablet(s) PO daily 06/16/2016 06/10/2017 Inactive nortriptyline 10 mg capsule RxNorm: 363740 Capsule(s) TAKE ONE CAPSULE BY MOUTH ONCE DAILY IN THE EVENING 06/09/2016 10/06/2016 Inactive Myrbetriq 50 mg tablet,extended release RxNorm: 4556852 1 Tablet(s) PO daily 05/21/2016 09/10/2016 Inactive doxycycline hyclate 100 mg tablet RxNorm: 633355 1 Tablet(s) PO BID 05/07/2016 05/13/2016 Inactive Carafate 100 mg/mL oral suspension RxNorm: 105859 10 Milliliter(s) PO QID 05/07/2016 12/02/2017 Inactive Kenalog 40 mg/mL suspension for injection RxNorm: 9625494 Milliliter(s) Inj 04/28/2016 04/28/2016 Inactive losartan 25 mg tablet RxNorm: 343220 TAKE ONE TABLET BY MOUTH ONCE DAILY 04/08/2016 07/06/2016 Inactive ciprofloxacin 500 mg tablet RxNorm: 322466 1 Tablet(s) PO BID 04/07/2016 04/13/2016 Inactive cyclobenzaprine 5 mg tablet RxNorm: 795300 1 Tablet(s) PO TID 04/07/2016 04/16/2016 Inactive Keflex 500 mg capsule RxNorm: 714404 1 Capsule(s) PO TID 04/03/2016 04/02/2016 Inactive Keflex 500 mg capsule RxNorm: 525291 1 Capsule(s) PO TID 04/03/2016 04/09/2016 Inactive losartan 25 mg tablet RxNorm: 371610 TAKE ONE TABLET BY MOUTH ONCE DAILY 03/06/2016 04/07/2016 Inactive nortriptyline 10 mg capsule RxNorm: 546882 TAKE ONE CAPSULE BY MOUTH ONCE DAILY IN THE EVENING 03/06/2016 06/03/2016 Inactive pravastatin 10 mg tablet RxNorm: 186036 TAKE ONE TABLET BY MOUTH ONCE DAILY 02/04/2016 01/18/2017 Inactive warfarin 4 mg tablet RxNorm: 725895 Tablet(s) PO q d except 5mg on tue 01/31/2016 06/17/2017 Inactive Myrbetriq 50 mg tablet,extended release RxNorm: 7892593 1 Tablet(s) PO daily 01/17/2016 05/15/2016 Inactive Namenda 10 mg tablet RxNorm: 493561 1 Tablet(s) PO BID 01/01/2016 06/28/2016 Inactive Myrbetriq 50 mg tablet,extended release RxNorm: 5223262 1 Tablet(s) PO daily 12/20/2015 12/20/2015 Inactive Synthroid 125 mcg tablet RxNorm: 718688 1 Tablet(s) PO daily 11/14/2015 07/10/2016 Inactive nortriptyline 10 mg capsule RxNorm: 722556 TAKE ONE CAPSULE BY MOUTH ONCE DAILY IN THE EVENING 11/05/2015 03/03/2016 Inactive Myrbetriq 50 mg tablet,extended release RxNorm: 9181663 1 Tablet(s) PO daily 10/01/2015 12/19/2015 Inactive Namenda 10 mg tablet RxNorm: 036164 1 Tablet(s) PO BID 08/30/2015 12/31/2015 Inactive Vesicare 10 mg tablet RxNorm: 433829 1 Tablet(s) PO daily 08/30/2015 09/30/2015 Inactive warfarin 4 mg tablet RxNorm: 590125 Tablet(s) PO 08/30/2015 01/30/2016 Inactive Synthroid 125 mcg tablet RxNorm: 382852 1 Tablet(s) PO daily 08/02/2015 11/13/2015 Inactive Synthroid 125 mcg tablet RxNorm: 538916 Tablet(s) PO 08/01/2015 08/01/2015 Inactive losartan 25 mg tablet RxNorm: 867854 1 Tablet(s) PO daily 07/31/2015 02/25/2016 Inactive pravastatin 10 mg tablet RxNorm: 288370 1 Tablet(s) PO daily 07/23/2015 01/18/2016 Inactive hydrochlorothiazide 25 mg tablet RxNorm: 902556 1 Tablet(s) PO daily 07/19/2015 07/12/2016 Inactive nortriptyline 10 mg capsule RxNorm: 484328 1 Capsule(s) PO QPM 07/03/2015 10/30/2015 Inactive metoprolol succinate ER 100 mg tablet,extended release 24 hr RxNorm: 611980 1 Tablet(s) PO daily 06/06/2015 05/30/2016 Inactive pravastatin 10 mg tablet RxNorm: 907452 1 Tablet(s) PO daily 01/22/2015 07/20/2015 Inactive aspirin 81 mg capsule,delayed release RxNorm: 230423 1 Capsule(s) PO daily 01/11/2015 02/09/2015 Inactive Fosamax 5 mg tablet RxNorm: 766459 1 Tablet(s) QW 01/11/2015 12/02/2017 Inactive oxybutynin chloride ER 10 mg tablet,extended release 24 hr RxNorm: 171890 1 Tablet(s) PO daily 01/11/2015 08/29/2015 Inactive Fosamax 70 mg tablet RxNorm: 639927 1 Tablet(s) PO QW No Start Date Active furosemide 40 mg tablet RxNorm: 683061 1 Tablet(s) PO daily as needed No Start Date Active Claritin oral RxNorm: 81242 oral No Start Date Active Centrum oral RxNorm: oral No Start Date Active Myrbetriq 50 mg tablet,extended release RxNorm: 5454522 1 Tablet(s) PO daily No Start Date Active Calcium 600 + D(3) oral RxNorm: 683676 oral No Start Date Active Coumadin 4 mg tablet RxNorm: 565701 1 Tablet(s) PO daily on ,, No Start Date 06/07/2018 Inactive Vitamin D3 oral RxNorm: oral No Start Date 06/16/2018 Inactive pravastatin 10 mg tablet RxNorm: 024913 1 Tablet(s) PO daily No Start Date 01/21/2015 Inactive Aspirin Low Dose 81 mg tablet,delayed release RxNorm: 261007 1 Tablet(s) PO BIW on Thursday and Thursday No Start Date 06/16/2018 Inactive Tylenol PM oral RxNorm: 926600 oral No Start Date 04/07/2017 Inactive Vitamin D2 oral RxNorm: 4018 oral No Start Date 06/08/2018 Inactive Vitamin D2 50,000 unit capsule RxNorm: 949645 1 Capsule(s) PO QW No Start Date 04/13/2017 Inactive tramadol 50 mg tablet RxNorm: 248709 1 Tablet(s) PO TID as needed No Start Date 03/16/2018 Inactive Colace 100 mg capsule RxNorm: 8961429 Capsule(s) PO No Start Date 06/07/2018 Inactive biotin oral RxNorm: oral No Start Date 06/16/2018 Inactive Micro-K 10 10 mEq capsule,extended release RxNorm: 899421 1 Capsule(s) PO daily No Start Date 05/07/2017 Inactive Synthroid 100 mcg tablet RxNorm: 050745 Tablet(s) PO No Start Date 07/31/2015 Inactive Vitamin B-12 oral RxNorm: oral No Start Date 06/16/2018 Inactive PreserVision AREDS 2 oral RxNorm: 6948014 oral No Start Date 06/07/2018 Inactive hydrochlorothiazide 25 mg tablet RxNorm: 741057 1 Tablet(s) PO daily No Start Date 07/18/2015 Inactive warfarin 2 mg tablet RxNorm: 624690 Tablet(s) PO No Start Date 08/29/2015 Inactive metoprolol succinate ER 100 mg tablet,extended release 24 hr RxNorm: 903473 1 Tablet(s) PO daily No Start Date 06/05/2015 Inactive warfarin 3 mg tablet RxNorm: 985731 Tablet(s) PO No Start Date 08/29/2015 Inactive Coumadin 3 mg tablet RxNorm: 728873 1 Tablet(s) PO QPM at 6:00pm Managed by Dr Bowman No Start Date 06/17/2017 Inactive Medication Administered Medication Codes Instructions Start Date Status Kenalog 40 mg/mL suspension for injection RxNorm: 4863787 2Milliliter 03/12/2018 No longer Active ceftriaxone 500 mg solution for injection RxNorm: 1602089 02/08/2018 No longer Active Kenalog 40 mg/mL suspension for injection RxNorm: 4855494 1Milliliter 10/06/2016 No longer Active ceftriaxone 500 mg solution for injection RxNorm: 5103938 10/06/2016 No longer Active Kenalog 40 mg/mL suspension for injection RxNorm: 5176074 Milliliter 04/28/2016 No longer Active Immunizations Vaccine [...] Localized edema ICD-10: R60.0 ICD-9: 782.3 05/24/2018 halfway (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 of anticoagulants ICD-10: Z79.01 ICD-9: [...] NO Growth Day 2 05/27/2018 Comp Metabolic Omr323 NA 142 mEq/L 05/24/2018 Comp Metabolic Utn808 K 4.0 mEq/L 05/24/2018 Comp Metabolic Fyl014 CL 104 mEq/L 05/24/2018 Comp Metabolic Cnl733 CO2 30.0 mEq/L 05/24/2018 Comp Metabolic Rmo219 ANION GAP 12 05/24/2018 Comp Metabolic Hru048 GLUCOSE 94 mg/dL 05/24/2018 Comp Metabolic Buy549 Creat 0.6 mg/dL 05/24/2018 Comp Metabolic Czt023 eGFR 97 ml/min/1.73m2 05/24/2018 Comp Metabolic Vaw299 BUN 12 mg/dL 05/24/2018 Comp Metabolic Zza898 B/C Ratio 19.4 Ratio 05/24/2018 Comp Metabolic Tjn131 CALCIUM 8.8 mg/dL 05/24/2018 Comp Metabolic Bku753 ALK PHOS 135 U/L 05/24/2018 Comp Metabolic Ldm160 AST(SGOT) 18 U/L 05/24/2018 Comp Metabolic Ocp550 ALT(SGPT) 16 U/L 05/24/2018 Comp Metabolic Aju643 BILI T 0.4 mg/dL 05/24/2018 Comp Metabolic Hbc346 ALBUMIN 3.9 g/dL 05/24/2018 Comp Metabolic How156 TPRO 6.0 g/dL 05/24/2018 Comp Metabolic Pue096 GLOB 2.1 g/dL 05/24/2018 Comp Metabolic Ocv615 A/G Ratio 1.8 Ratio 05/24/2018 Comp Metabolic Gqe600 Osmo 283 mOsmo 05/24/2018 Pt Mxe8140 PT 28.2 seconds 05/24/2018 Pt Brx9716 INR 2.6 05/24/2018 Pt Ozr7262 Low Intensity - 1.5-2.0 05/24/2018 Pt Vfo6882 Mod intensity - 2.0-3.0 05/24/2018 Pt Fim0596 Hi intensity - 3.0-4.0 05/24/2018 Cbc With Differential Ord2 WBC 7.30 K/ul 05/24/2018 Cbc With Differential Ord2 RBC 4.04 M/ul 05/24/2018 Cbc With Differential Ord2 HGB 12.0 g/dl 05/24/2018 Cbc With Differential Ord2 Neut% 66.0 % 05/24/2018 Cbc With Differential Ord2 HCT 38.9 % 05/24/2018 Cbc With Differential Ord2 MCV 96.3 fl 05/24/2018 Cbc With Differential Ord2 Lymph% 21.1 % 05/24/2018 Cbc With Differential Ord2 MCH 29.7 pg 05/24/2018 Cbc With Differential Ord2 Irwin% 7.0 % 05/24/2018 Cbc With Differential Ord2 [...] 1.54 K/ul 05/24/2018 Cbc With Differential Ord2 Irwin ABS# 0.5 K/ul 05/24/2018 Cbc With Differential Ord2 Eos ABS# 0.4 K/ul 05/24/2018 Cbc With Differential Ord2 Baso ABS# 0.0 K/ul 05/24/2018 Tsh Ord6 TSH (3rd IS) 3.19 uIU/mL 10/06/2017 Free T4 Wfh295 FREE T4 1.64 ng/dL 10/06/2017 Free T4 Ill928 FREE T4 1.03 ng/dL 08/05/2017 Tsh Ord6 [...] Ord30 C/HDL 3.7 Ratio 04/09/2017 Free T4 Qet827 FREE T4 0.97 ng/dL 04/09/2017 Tibc Ord40 Iron 36 ug/dl 04/09/2017 Tibc Ord40 UIBC 281 ug/dL 04/09/2017 Tibc Ord40 TIBC 317 ug/dL 04/09/2017 Tibc Ord40 Fe-%Sat 11.4 % 04/09/2017 Comp Metabolic Gkh836 NA 136 mEq/L 04/09/2017 Comp Metabolic Llv729 K 3.9 mEq/L 04/09/2017 Comp Metabolic Lqi462 CL 98 mEq/L 04/09/2017 Comp Metabolic Kur194 CO2 28.0 mEq/L 04/09/2017 Comp Metabolic Hek570 ANION GAP 14 04/09/2017 Comp Metabolic Wae401 GLUCOSE 90 mg/dL 04/09/2017 Comp Metabolic Ygl413 Creat 0.6 mg/dL 04/09/2017 Comp Metabolic Yxq545 eGFR 102 ml/min/1.73m2 04/09/2017 Comp Metabolic Hdx571 BUN 9 mg/dL 04/09/2017 Comp Metabolic Jsg018 B/C Ratio 15.3 Ratio 04/09/2017 Comp Metabolic Xbw578 CALCIUM 8.8 mg/dL 04/09/2017 Comp Metabolic Auq362 ALK PHOS 102 U/L 04/09/2017 Comp Metabolic Irf467 AST(SGOT) 18 U/L 04/09/2017 Comp Metabolic Rng034 ALT(SGPT) 14 U/L 04/09/2017 Comp Metabolic Xbr857 BILI T 0.4 mg/dL 04/09/2017 Comp Metabolic Srp375 ALBUMIN 3.9 g/dL 04/09/2017 Comp Metabolic Xpi059 TPRO 6.3 g/dL 04/09/2017 Comp Metabolic Zud517 GLOB 2.4 g/dL 04/09/2017 Comp Metabolic Hji672 A/G Ratio 1.7 Ratio 04/09/2017 Comp Metabolic Pkr279 Osmo 270 mOsmo 04/09/2017 Vitamin D 25 Oh Wfj9180 VITAMIN D, 25 HYDROXY 34.31 ng/mL 04/09/2017 [...] 28.9 pg 04/09/2017 Cbc With Differential Ord2 Irwin% 8.8 % 04/09/2017 Cbc With Differential Ord2 [...] 1.22 K/ul 04/09/2017 Cbc With Differential Ord2 [place]win ABS# 0.7 K/ul 04/09/2017 Cbc With Differential Ord2 Eos ABS# 0.1 K/ul 04/09/2017 Cbc With Differential Ord2 Baso ABS# 0.0 K/ul 04/09/2017 Urine Culture Ucult Complete >100,000 col/ml aerobic growth sent to ref lab 03/05/2017 Pt Chh5644 PT 24.2 seconds 04/14/2016 Pt Aji1420 INR 2.3 04/14/2016 Pt Jqt2329 Low Intensity - 1.5-2.0 04/14/2016 Pt Vip5998 Mod intensity - 2.0-3.0 04/14/2016 Pt Oou3618 Hi intensity - 3.0-4.0 04/14/2016 Pt Iip3798 PT 31.3 seconds 04/10/2016 Pt Vou0696 INR 3.3 04/10/2016 Pt Psb6660 Low Intensity - 1.5-2.0 04/10/2016 Pt Crb1747 Mod intensity - 2.0-3.0 04/10/2016 Pt Adk1702 Hi intensity - 3.0-4.0 04/10/2016 C RAP A SC [id number] Strep A Negative 04/10/2016 Urine Culture Ucult Complete >100,000 col/ml aerobic growth sent to ref lab 04/04/2016 Comp Metabolic Ulw006 NA 136 mEq/L 04/03/2016 Comp Metabolic Dfq379 K 3.9 mEq/L 04/03/2016 Comp Metabolic Itq476 CL 99 mEq/L 04/03/2016 Comp Metabolic Bpv478 CO2 32.0 mEq/L 04/03/2016 Comp Metabolic Iny638 ANION GAP 9 04/03/2016 Comp Metabolic Uzk727 GLUCOSE 88 mg/dL 04/03/2016 Comp Metabolic Hdn397 Creat 0.6 mg/dL 04/03/2016 Comp Metabolic Bhz160 eGFR 93 ml/min/1.73m2 04/03/2016 Comp Metabolic Hxo899 BUN 15 mg/dL 04/03/2016 Comp Metabolic Edh259 B/C Ratio 23.4 Ratio 04/03/2016 Comp Metabolic Jdq522 CALCIUM 8.7 mg/dL 04/03/2016 Comp Metabolic Taw207 ALK PHOS 100 U/L 04/03/2016 Comp Metabolic Nsq742 AST(SGOT) 28 U/L 04/03/2016 Comp Metabolic Kyr856 ALT(SGPT) 39 U/L 04/03/2016 Comp Metabolic Zdh042 BILI T 0.5 mg/dL 04/03/2016 Comp Metabolic Iov137 ALBUMIN 4.1 g/dL 04/03/2016 Comp Metabolic Qoi541 TPRO 6.6 g/dL 04/03/2016 Comp Metabolic Rwi351 GLOB 2.5 g/dL 04/03/2016 Comp Metabolic Peo958 A/G Ratio 1.7 Ratio 04/03/2016 Comp Metabolic Wob406 Osmo 272 mOsmo 04/03/2016 Cbc With Differential [...] 29.0 pg 04/03/2016 Cbc With Differential Ord2 Irwin% 11.3 % 04/03/2016 Cbc With Differential Ord2 [...] 1.15 K/ul 04/03/2016 Cbc With Differential Ord2 [place]win ABS# 0.8 K/ul 04/03/2016 Cbc With Differential Ord2 Eos ABS# 0.2 K/ul 04/03/2016 Cbc With Differential Ord2 Baso ABS# 0.0 K/ul 04/03/2016 Tsh Ord6 hTSH II 3.06 uIU/mL 04/03/2016 Free T4 Mal355 FREE T4 0.99 ng/dL 04/03/2016 Free T4 Eir284 FREE T4 0.81 ng/dL 07/31/2015 Comp Metabolic Ewy872 NA 136 mEq/L 07/31/2015 Comp Metabolic Lkc278 K 3.8 mEq/L 07/31/2015 Comp Metabolic Snd161 CL 97 mEq/L 07/31/2015 Comp Metabolic Aks978 CO2 29.0 mEq/L 07/31/2015 Comp Metabolic Lpo434 ANION GAP 14 07/31/2015 Comp Metabolic Lfy508 GLUCOSE 90 mg/dL 07/31/2015 Comp Metabolic Nzy201 Creat 0.7 mg/dL 07/31/2015 Comp Metabolic Zlj218 eGFR 80 ml/min/1.73m2 07/31/2015 Comp Metabolic Cmo559 BUN 8 mg/dL 07/31/2015 Comp Metabolic Zsr837 B/C Ratio 11.0 Ratio 07/31/2015 Comp Metabolic Kwr395 CALCIUM 8.9 mg/dL 07/31/2015 Comp Metabolic Qcs373 ALK PHOS 102 U/L 07/31/2015 Comp Metabolic Xrc089 AST(SGOT) 22 U/L 07/31/2015 Comp Metabolic Ymt389 ALT(SGPT) 14 U/L 07/31/2015 Comp Metabolic Ctx696 BILI T 0.5 mg/dL 07/31/2015 Comp Metabolic Bak587 ALBUMIN 4.4 g/dL 07/31/2015 Comp Metabolic Czw295 TPRO 6.7 g/dL 07/31/2015 Comp Metabolic Egx358 GLOB 2.3 g/dL 07/31/2015 Comp Metabolic Yxe984 A/G Ratio 1.9 Ratio 07/31/2015 Comp Metabolic Jnl110 Osmo 270 mOsmo 07/31/2015 Tsh Ord6 hTSH [...] Lipid Ord30 C/HDL 4.8 Ratio 07/31/2015 Pt Azn0977 PT 31.9 seconds 07/03/2015 Pt [id number] INR 3.2 07/03/2015 Pt [id number] Low Intensity - 1.5-2.0 07/03/2015 Pt [id number] Mod intensity - 2.0-3.0 07/03/2015 Pt Sdc3119 Hi intensity - 3.0-4.0 07/03/2015 Review of [...] retractions 10/16/2016 None Full Exam - General 1995 Respiratory respiratory effort/rhythm Overall: normal rate 10/16/2016 None Full Exam - General 1995 Cardiovascular extremities Overall: no clubbing 10/16/2016 None [...] [id number] 06/08/2018 URINALYSIS NONAUTO W/O SCOPE CPT-4: [id number] 05/25/2018 ADMIN INFLUENZA VIRUS VAC CPT-4: G0008 05/20/2018 FLU VACC PRSV FREE INC ANTIG CPT-4: 24689 05/20/2018 DRAIN/INJECT JOINT/BURSA CPT-4: 69544 03/23/2018 TRIAMCINOLONE ACET INJ NOS CPT-4: J3301 03/23/2018 DRAIN/INJECT JOINT/BURSA CPT-4: 55924 03/12/2018 TRIAMCINOLONE ACET INJ NOS CPT-4: J3301 03/12/2018 ROCEPHIN, PER 250 MG CPT- 4: J0696 02/08/2018 ADMIN INFLUENZA VIRUS VAC CPT-4: G0008 06/18/2017 FLU VACC PRSV FREE INC ANTIG CPT-4: 71891 06/18/2017 URINALYSIS NONAUTO W/O SCOPE CPT-4: 50655 04/27/2017 URINALYSIS NONAUTO W/O SCOPE CPT-4: 49133 2017 DRAIN/INJECT JOINT/BURSA CPT-4: 48735 03/03/2017 TRIAMCINOLONE ACET INJ NOS CPT-4: J3301 03/03/2017 TRIAMCINOLONE ACET INJ NOS CPT-4: J3301 10/06/2016 ROCEPHIN, PER 250 MG CPT- 4: J0696 10/06/2016 THER/PROPH/DIAG INJ SC/IM CPT-4: 60438 10/06/2016 TRIAMCINOLONE ACET INJ NOS CPT-4: J3301 04/28/2016 URINALYSIS NONAUTO W/O SCOPE CPT-4: 79846 04/03/2016 ADMIN INFLUENZA VIRUS VAC CPT-4: G0008 07/03/2015 FLU VACC PRSV FREE INC ANTIG CPT-4: 71203 07/03/2015 Vital Signs Date Vital 06/29/2018 Blood Pressure 1: 142/80 Code: 8480-6 BMI: 27.8 Code: 27738-6 Heart Rate 1: 89 bpm Height: 5'6" SpO2: 94% Weight: 172 lbs 06/08/2018 Blood Pressure 1: 144/66 Code: 8480-6 BMI: 27.9 Code: 94829-8 Heart Rate 1: 85 bpm Height: 5'6" SpO2: 97% Waist Measure (cm): 97 cm Weight: 173 lbs 05/24/2018 Blood Pressure 1: 128/72 Code: 8480-6 BMI: 27.9 Code: 11828-8 Heart Rate 1: 82 bpm Height: 5'6" SpO2: 92% Weight: 173 lbs 04/06/2018 Blood Pressure 1: 138/88 Code: 8480-6 Heart Rate 1: 86 bpm Height: SpO2: 96% Weight: 03/23/2018 Blood Pressure 1: 150/88 Code: 8480-6 Heart Rate 1: 80 bpm Height: SpO2: 96% Weight: 03/12/2018 Heart Rate 1: 90 bpm Height: Weight: 03/02/2018 Blood Pressure 1: 128/80 Code: 8480-6 BMI: 28.4 Code: 81319-7 Heart Rate 1: 83 bpm Height: 5'6" SpO2: 93% Weight: 176 lbs 02/08/2018 Blood Pressure 1: 142/80 Code: 8480-6 Heart Rate 1: 78 bpm Height: 5'6" SpO2: 94% 12/03/2017 Blood Pressure 1: 124/78 Code: 8480-6 BMI: 27.9 Code: 49401-8 Heart Rate 1: 70 bpm Height: 5'6" SpO2: 97% Weight: 173 lbs 10/27/2017 Blood Pressure 1: 126/60 Code: 8480-6 Heart Rate 1: 65 bpm Height: 5'6" SpO2: 98% Weight: 10/12/2017 Blood Pressure 1: 126/74 Code: 8480-6 BMI: 26.0 Code: 84968-1 Heart Rate 1: 80 bpm Height: 5'6" SpO2: 89% Weight: 161 lbs 10/06/2017 Blood Pressure 1: 126/70 Code: 8480-6 BMI: 27.2 Code: 33781-0 Heart Rate 1: 73 bpm Height: 5'6" SpO2: 97% Weight: 168 lbs 8 oz 08/05/2017 Blood Pressure 1: 152/78 Code: 8480-6 BMI: 27.1 Code: 00994-1 Heart Rate 1: 73 bpm Height: 5'6" SpO2: 98% Weight: 168 lbs 07/06/2017 Blood Pressure 1: 148/70 Code: 8480-6 BMI: 26.6 Code: 83819-8 Heart Rate 1: 80 bpm Height: 5'6" SpO2: 97% Weight: 165 lbs 06/18/2017 Blood Pressure 1: 132/68 Code: 8480-6 BMI: 26.8 Code: 40364-4 Heart Rate 1: 84 bpm Height: 5'6" [...] 1: 162/84 Code: 8480-6 BMI: 28.1 Code: 62080-0 Heart Rate 1: 98 bpm Height: 5'6" SpO2: 97% Weight: 174 lbs 03/03/2017 Blood Pressure 1: 154/88 Code: 8480-6 Heart Rate 1: 96 bpm Height: SpO2: 95% Weight: 01/05/2017 Blood Pressure 1: 142/78 Code: 8480-6 BMI: 28.9 Code: 97428-0 Heart Rate 1: 94 bpm Height: 5'6" SpO2: 95% Weight: 179 lbs 12/19/2016 Blood Pressure 1: 130/74 Code: 8480-6 Heart Rate 1: 91 bpm Height: 5'6" SpO2: 97% Weight: 11/13/2016 Blood Pressure 1: 152/82 Code: 8480-6 BMI: 28.4 Code: 28815-6 Heart Rate 1: 85 bpm Height: 5'6" SpO2: 96% Weight: 176 lbs 10/16/2016 Blood Pressure 1: 148/72 Code: 8480-6 BMI: 28.4 Code: 24444-1 Heart Rate 1: 90 bpm Height: 5'6" SpO2: 96% Weight: 176 lbs 10/06/2016 Blood Pressure 1: 150/80 Code: 8480-6 BMI: 28.4 Code: 98612-8 Heart Rate 1: 76 bpm Height: 5'6" SpO2: 97% Weight: 176 lbs 07/02/2016 Blood Pressure 1: 142/78 Code: 8480-6 BMI: 27.8 Code: 96896-2 Heart Rate 1: 85 bpm Height: 5'6" SpO2: 97% Weight: 172 lbs 05/21/2016 Blood Pressure 1: 166/80 Code: 8480-6 BMI: 27.9 Code: 68024-5 Heart Rate 1: 79 bpm Height: 5'6" SpO2: 98% Weight: 173 lbs 05/07/2016 Blood Pressure 1: 140/70 Code: 8480-6 BMI: 27.9 Code: 69218-5 Heart Rate 1: 82 bpm Height: 5'6" SpO2: 96% Weight: 173 lbs 04/28/2016 Blood Pressure 1: 128/86 Code: 8480-6 BMI: 27.4 Code: 97381-2 Heart Rate 1: 86 bpm Height: 5'6" SpO2: 96% Temperature: 36.1 (C) / 97.0 (F) Weight: 170 lbs 04/07/2016 Blood Pressure 1: 150/80 Code: 8480-6 Heart Rate 1: 94 bpm Height: SpO2: 95% Weight: 04/03/2016 Blood Pressure 1: 122/76 Code: 8480-6 BMI: 27.4 Code: 42973-8 Heart Rate 1: 84 bpm Height: 5'6" SpO2: 94% Weight: 170 lbs 01/31/2016 Blood Pressure 1: 124/82 Code: 8480-6 BMI: 27.8 Code: 46331-6 Heart Rate 1: 100 bpm Height: 5'6" SpO2: 97% Weight: 172 lbs 11/29/2015 Blood Pressure 1: 140/82 Code: 8480-6 Blood Pressure 1: 130/84 Code: 8480-6 BMI: 27.4 Code: 88563-3 Heart Rate 1: 97 bpm Height: 5'6" SpO2: 95% Weight: 170 lbs 10/01/2015 Blood Pressure 1: 130/80 Code: 8480-6 BMI: 27.4 Code: 99352-5 Heart Rate 1: 82 bpm Height: 5'6" SpO2: 97% Weight: 170 lbs 08/30/2015 Blood Pressure 1: 120/68 Code: 8480-6 BMI: 27.6 Code: 88306-6 Heart Rate 1: 91 bpm Height: 5'6" SpO2: 96% Weight: 171 lbs 07/31/2015 Blood Pressure 1: 180/80 Code: 8480-6 BMI: 27.4 Code: 28508-8 Heart Rate 1: 60 bpm Height: 5'6" SpO2: 94% Weight: 170 lbs 07/03/2015 Blood Pressure 1: 154/80 Code: 8480-6 BMI: 27.4 Code: 14237-2 Heart Rate 1: 98 bpm Height: 5'6" SpO2: 95% Weight: 170 lbs 04/10/2015 Blood Pressure 1: 138/72 Code: 8480-6 BMI: 27.8 Code: 41497-0 Heart Rate 1: 82 bpm Height: 5'6" SpO2: 98% Weight: 172 lbs 01/11/2015 Blood Pressure 1: 132/74 Code: 8480-6 BMI: 28.6 Code: 36109-6 Heart Rate 1: 88 bpm Height: 5'6" [...] data Encounters Encounter Performer Location Codes Date ( [id number] EST. PATIENT, LEVEL IV Diagnosis: Essential (primary) hypertension[ICD10: I10] Diagnosis: Atrophy of thyroid (acquired)[ICD10: E03.4] Diagnosis: Other fatigue[ICD10: R53.83] Diagnosis: Other insomnia[ICD10: G47.09] Carleen Anaya MD, [facility] CPT-4: 82122 06/29/2018 ([id number]) 34949 EST. 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 PATIENT, LEVEL III Diagnosis: Lumbago with sciatica, right side[ICD10: M54.41] Diagnosis: Sciatica, right side[ICD10: M54.31] Carleen Anaya MD, [facility] CPT- 4: 48596 04/06/2018 ([id number]) 01243 EST. PATIENT, LEVEL III Diagnosis: Lumbago with sciatica, right side[ICD10: M54.41] Diagnosis: Sciatica, right side[ICD10: M54.31] Carleen Anaya MD, [facility] CPT- 4: 27128 03/23/2018 49939 EST. PATIENT, LEVEL III Diagnosis: Low back pain[ICD10: M54.5] Diagnosis: Sacroiliitis, not elsewhere classified[ICD10: M46.1] Wendi Anaya MD, [facility] CPT-4: 46810 03/12/2018 ([id number]) 10889 EST. PATIENT, LEVEL IV Diagnosis: Atrophy of thyroid (acquired)[ICD10: E03.4] Diagnosis: Essential (primary) hypertension[ICD10: I10] Diagnosis: Urge incontinence[ICD10: N39.41] Carleen Anaya MD, [facility] CPT-4: 07832 03/02/2018 ([id number]) 40295 EST. PATIENT, LEVEL III Diagnosis: Cellulitis of face[ICD10: L03.211] Mimi Anaya MD, [facility] CPT- 4: 61340 02/08/2018 ([id number]) 79384 EST. PATIENT, LEVEL IV Diagnosis: Atrophy of thyroid (acquired)[ICD10: E03.4] Diagnosis: Essential (primary) hypertension[ICD10: I10] Diagnosis: Urge incontinence[ICD10: N39.41] Carleen Anaya MD, [facility] CPT-4: 64663 12/03/2017 12038 EST. PATIENT, LEVEL IV Diagnosis: Essential (primary) hypertension[ICD10: I10] Diagnosis: Weakness[ICD10: R53.1] Diagnosis: Low back pain[ICD10: M54.5] Diagnosis: Other allergic rhinitis[ICD10: J30.89] Wendi Anaya MD, [facility] CPT- 4: 67278 10/27/2017 96492 EST. PATIENT, LEVEL IV Diagnosis: Pneumonia due to other specified bacteria[ICD10: J15.8] Diagnosis: Chronic systolic (congestive) heart failure[ICD10: I50.22] Wendi Anaya MD, [facility] CPT-4: 31480 10/12/2017 ([id number]) 39446 EST. 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 PATIENT, LEVEL IV Diagnosis: Atrophy of thyroid (acquired)[ICD10: E03.4] Diagnosis: Essential (primary) hypertension[ICD10: I10] Diagnosis: Localized edema[ICD10: R60.0] Carleen Anaya MD, [facility] CPT-4: 84682 08/05/2017 ([id number]) 25070 EST. PATIENT, LEVEL IV Diagnosis: Essential (primary) hypertension[ICD10: I10] Diagnosis: Weakness[ICD10: R53.1] Diagnosis: Other fecal abnormalities[ICD10: R19.5] Carleen Anaya MD, [facility] CPT-4: 68962 07/06/2017 ([id number]) 65973 EST. 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 PATIENT, LEVEL IV Diagnosis: Pain in right shoulder[ICD10: M25.511] Diagnosis: Weakness[ICD10: R53.1] Diagnosis: Other fatigue[ICD10: R53.83] Diagnosis: Other malaise[ICD10: R53.81] Wendi Anaya MD, [facility] CPT-4: 36390 05/11/2017 ([id number]) Miscellaneous no charge Diagnosis: Essential (primary) hypertension[ICD10: I10] Mimi Anaya MD, [facility] CPT-4: 02726 04/30/2017 ([id number]) 77468 EST. PATIENT, LEVEL III Diagnosis: Acute recurrent maxillary sinusitis[ICD10: J01.01] Diagnosis: Urinary tract infection, site not specified[ICD10: N39.0] Mimi Anaya MD, [facility] CPT-4: 27638 04/27/2017 ([id number]) 72320 EST. PATIENT, LEVEL IV Diagnosis: Atrophy of thyroid (acquired)[ICD10: E03.4] Diagnosis: Essential (primary) hypertension[ICD10: I10] Diagnosis: Iron deficiency[ICD10: E61.1] Diagnosis: Other specified heart block[ICD10: I45.5] Carleen Anaya MD, [facility] CPT-4: 50427 04/08/2017 04222 EST. PATIENT, LEVEL III Diagnosis: Low back pain[ICD10: M54.5] Diagnosis: Sacroiliitis, not elsewhere classified[ICD10: M46.1] Wendi Anaya MD, [facility] CPT-4: 90013 03/03/2017 ([id number]) 88845 EST. 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 PATIENT, LEVEL III Diagnosis: Cervicalgia[ICD10: M54.2] Diagnosis: Other muscle spasm[ICD10: M62.838] Wendi Anaya MD, [facility] CPT-4: 59114 12/19/2016 ([id number]) 91536 EST. PATIENT, LEVEL III Diagnosis: Essential (primary) hypertension[ICD10: I10] Diagnosis: Gastro-esophageal reflux disease without esophagitis[ICD10: K21.9] Carleen Anaya MD, [facility] CPT-4: 04990 11/13/2016 ([id number]) 26886 EST. PATIENT, LEVEL III Diagnosis: Pain in right shoulder[ICD10: M25.511] Diagnosis: Insomnia due to medical condition[ICD10: G47.01] Carleen Anaya MD, [facility] CPT-4: 65509 10/16/2016 ([id number]) 12378 EST. PATIENT, LEVEL IV Diagnosis: Pneumonia due to other specified bacteria[ICD10: J15.8] Diagnosis: Pain in right shoulder[ICD10: M25.511] Diagnosis: Cough[ICD10: R05] Carleen Anaya MD, [facility] CPT-4: 13529 10/06/2016 ([id number]) 50047 EST. PATIENT, LEVEL IV Diagnosis: Essential (primary) hypertension[ICD10: I10] Diagnosis: Personal history of other specified conditions[ICD10: Z87.898] Diagnosis: Unsteadiness on feet[ICD10: R26.81] Carleen Anaya MD, [facility] CPT- 4: 42137 07/02/2016 ([id number]) 16586 EST. PATIENT, LEVEL IV Diagnosis: Dysphagia, pharyngeal phase[ICD10: R13.13] Diagnosis: Urge incontinence[ICD10: N39.41] Diagnosis: Gastro-esophageal reflux disease without esophagitis[ICD10: K21.9] Carleen Anaya MD, [facility] CPT-4: 56272 05/21/2016 ([id number]) 72698 EST. PATIENT, LEVEL III Diagnosis: Gastro-esophageal reflux disease without esophagitis[ICD10: K21.9] Carleen Anaya MD, [facility] CPT-4: 10916 05/07/2016 ([id number]) 53694 EST. PATIENT, LEVEL III Diagnosis: Acute laryngopharyngitis[ICD10: J06.0] Diagnosis: Dysphagia, pharyngeal phase[ICD10: R13.13] Diagnosis: Allergic rhinitis due to pollen[ICD10: J30.1] Mimi Anaya MD, [facility] CPT-4: 64325 04/28/2016 ([id number]) Miscellaneous no charge Diagnosis: Acute laryngopharyngitis[ICD10: J06.0] Wendi Anaya MD, [facility] CPT- 4: 79969 04/10/2016 94794 EST. 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 PATIENT, LEVEL IV Diagnosis: Essential (primary) hypertension[ICD10: I10] Diagnosis: Hypothyroidism, unspecified[ICD10: E03.9] Diagnosis: Other fatigue[ICD10: R53.83] Diagnosis: Urge incontinence[ICD10: N39.41] Mimi Anaya MD, [facility] CPT- 4: 70601 04/03/2016 ([id number]) 69317 EST. PATIENT, LEVEL IV Diagnosis: Essential (primary) hypertension[ICD10: I10] Diagnosis: Pain in right ankle and joints of right foot[ICD10: M25.571] Diagnosis: Dizziness and giddiness[ICD10: R42] Diagnosis: Tinnitus, bilateral[ICD10: H93.13] Mimi Anaya MD, [facility] CPT- 4: 37586 01/31/2016 ([id number]) 03357 EST. PATIENT, LEVEL IV Diagnosis: Essential (primary) hypertension[ICD10: I10] Diagnosis: Otalgia, right ear[ICD10: H92.01] Diagnosis: Allergic rhinitis due to pollen[ICD10: J30.1] Diagnosis: Hypothyroidism, unspecified[ICD10: E03.9] Mimi Anaya MD, [facility] CPT-4: 64252 11/29/2015 ([id number]) 87936 EST. PATIENT, LEVEL IV Diagnosis: Essential (primary) hypertension[ICD10: I10] Diagnosis: Urge incontinence[ICD10: N39.41] Diagnosis: Unspecified dementia without behavioral disturbance[ICD10: F03.90] Mimi Anaya MD, [facility] CPT-4: 79470 10/01/2015 ([id number]) 88072 EST. PATIENT, LEVEL IV Diagnosis: Essential (primary) hypertension[ICD10: I10] Diagnosis: Hypothyroidism, unspecified[ICD10: E03.9] Diagnosis: Unspecified dementia without behavioral disturbance[ICD10: F03.90] Diagnosis: Urge incontinence[ICD10: N39.41] Mimi Anaya MD, [facility] CPT- 4: 75774 08/30/2015 ([id number]) 06558 EST. PATIENT, LEVEL IV Diagnosis: Essential (primary) hypertension[ICD10: I10] Diagnosis: Hypothyroidism, unspecified[ICD10: E03.9] Diagnosis: Hyperlipidemia, unspecified[ICD10: E78.5] Carleen Anaya MD, [facility] CPT-4: 26608 07/31/2015 ([id number]) 25897 EST. PATIENT, LEVEL IV Diagnosis: Essential (primary) hypertension[ICD10: I10] Diagnosis: halfway (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 of anticoagulants[ICD10: Z79.01] Diagnosis: Dizziness and giddiness[ICD10: R42] Carleen Anaya MD, [facility] CPT- 4: 80568 07/03/2015 ([id number]) 00361 EST. PATIENT, LEVEL IV Diagnosis: ESSENTIAL HYPERTENSION[ICD9: 401.9] Diagnosis: MACULAR DEGENERATION[ICD9: 362.50] Diagnosis: Peripheral vascular disease[ICD9: 443.9] Diagnosis: Neuropathy[ICD9: 355.9] [facility] CPT-4: 21625 04/10/2015 ([id number]) OFFICE/OUTPATIENT VISIT NEW Diagnosis: ESSENTIAL HYPERTENSION[ICD9: 401.9] Diagnosis: HYPOTHYROIDISM[ICD9: 244.9] Diagnosis: URGE INCONTINENCE[ICD9: 788.31] Diagnosis: Constipation - functional[ICD9: 564.09] Carleen Anaya MD, [facility] CPT-4: 09202 01/11/2015 Plan of Care Planned Activity Notes [...] not do so at this time. 06/29/2018 Patient Education: Patient Medication Summary Completed [...] care surrogate. 06/08/2018 Appointment: Mimi Espinosa WPtel: [facility] - Annual Wellness Visit 06/08/2018 Patient [...] edema. Weakness-fatigue- check labs Dysuria- check UA [id number] changes in medications 05/24/2018 Appointment: Mimi Espinosa WPtel: [address] [place] [address] (15 min) Moderate 05/24/2018 Patient Education: Patient Medication Summary Completed 05/24/2018 Appointment: Injection 05/20/2018 Patient Education: Patient Medication Summary Completed 05/20/2018 Visit Plan: Sciatica- pt to continue with aleve twice daily and cyclobenzaprine x 1 week. Pt is to call if the symptoms do not improve or if they worsen. referral to [facility] physical therapy. 04/06/2018 Appointment: Carleen Anaya WPtel: [facility] (15 min) Moderate 04/06/2018 Patient Education: [...] do not improve or if they worsen. [id number] - andrew 03/23/2018 Appointment: Carleen Anaya WPtel: [phone] [facility] (15 min) Moderate 03/23/2018 Patient Education: Patient [...] of injection. 03/12/2018 Appointment: Wendi Uriostegui WPtel: [facility] (30 min) Complex 03/12/2018 Patient [...] with myrbetric 03/02/2018 Appointment: Carleen Anaya WPtel: [facility] [place] (15 min) Moderate 03/02/2018 Patient Education: Patient Medication Summary Completed 03/02/2018 Appointment: (10 min) Simple 02/09/2018 Visit Plan: Cellulitis - start oral antibiotics as directed, return to clinic as directed, call for acute change in symptoms, worsening redness, warmth, discharge. 02/08/2018 Appointment: Mimi Espinosa WPtel: [phone] [place] (15 min) Moderate 02/08/2018 [...] daily. 12/03/2017 Appointment: Carleen Anaya WPtel: [phone] [facility] (15 min) Moderate 12/03/2017 Patient Education: Patient [...] allergy spray. 10/27/2017 App[facility]ment[phone] ([facility] min) Moderate 10/27/2017 Patient Education: Patient Medication Summary Completed 10/27/2017 Visit Plan: Pneumonia - Pt has been diagnosed with pneumonia by physical exam. A chest xray has been ordered as have antibiotics. The pt is aware of the diagnosis and the need for acute treatment of this illness. 10/12/2017 Appointment: Wendi Uriostegui WPtel: [phone] [facility] [place] (15 min) Moderate 10/12/2017 [...] today. 10/06/2017 Appointment: Carleen Anaya WPtel: [phone] [facility] (15 min) Moderate 10/06/2017 Patient Education: Patient [...] App[facility]ment[phone] [place] (15 min) Moderate 08/05/2017 Patient Education: Patient Medication Summary Completed 08/05/2017 Appointment: [facility]el[phone] [place] (15 min) Moderate 07/14/2017 Visit Plan: [...] voltaren gel. 07/06/2017 Appointment: [facility]Ptel[phone] [place] (15 min) Moderate 07/06/2017 Patient Education: [...] shot today 06/18/2017 Appointment: Carleen Anaya WPtel: [facility] [place] (15 min) Moderate 06/18/2017 Patient Education: Patient Medication Summary Completed 06/18/2017 Appointment: Nurse Visit 05/12/2017 Care Plan: X-RAY EXAM OF SHOULDER LOINC : 54321-7 Pending 05/12/2017 Visit Plan: Weakness, fatigue, malaise - Discussed with Dr. 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 Pt is to follow up with her oncologist. Right shoulder pain after fall - will send for X-ray - The pt is to use prn antiinflammatories to manage acute pain. The patient is to call the office if the pain is worsening or does not improve. 05/11/2017 Appointment: Wendi Uriostegui WPtel: [phone] [facility] (30 min) Complex 05/11/2017 Patient Education: Patient [...] plan. 04/27/2017 Appointment: Mimi Espinosa WPtel: [phone] [phone] (15 min) Moderate 04/27/2017 Patient [...] heart beat - recommended evaluation by her [employer] - Dr. Butler - I attempted a phone call to the office of Dr. Butler, I had to leave a message on the answering machine. If i don't hear back from Dr. Butler's office, we will need to do a Holter monitor on patient. 04/08/2017 Appointment: Carleen Anaya WPtel: [phone] [facility] [place] (15 min) Moderate 04/08/2017 Patient Education: Patient Medication Summary Completed 04/08/2017 Care Plan: Referral Order SNOMED-CT : 147564509 Pending 04/08/2017 Visit Plan: UTI - pt [...] of injection. 03/03/2017 Appointment: Wendi Uriostegui WPtel: [facility] (30 min) Complex 03/03/2017 Patient Education: [...] control. 01/05/2017 Appointment: Carleen Anaya WPtel: [phone] [facility] (15 min) Moderate 01/05/2017 Patient Education: Patient Medication Summary Completed 01/05/2017 Visit Plan: Neck Pain- pt to start with aspercreme or biofreeze to neck three times daily and start neck exercises daily. Will send RX - The patient is to call the office if the pain is worsening or does not improve. 12/19/2016 Appointment: Wendi Uriostegui WPtel: [phone] [facility] (30 min) Complex 12/19/2016 Patient [...] not improving. 11/13/2016 Appointment: Carleen Anaya WPtel: [facility] (15 min) Moderate 11/13/2016 Patient Education: Patient Medication Summary Completed 11/13/2016 Visit Plan: Insomnia -extended release melatonin - you can take up to 10mg of melatonin sleepy time tea - - use warm milk in the tea. Right shoulder - pt to continue with therapy, anti-inflammatory 10/16/2016 Appointment: Carleen Anaya WPtel: [facility] (15 min) Moderate 10/16/2016 Patient Education: Patient [...] pt. 10/06/2016 Appointment: Carleen Anaya WPtel: [phone] [phone] (15 min) Moderate 10/06/2016 Patient Education: Patient Medication Summary Completed 10/06/2016 Care Plan: X-RAY EXAM OF SHOULDER LOINC : 75696-3 Pending 10/06/2016 Appointment: [facility]Ptel[phone] (30 min) Complex 10/01/2016 [phone] Patient informed. Completed 07/08/2016 Visit Plan: Hypertension [...] discussed therapy. 07/02/2016 Appointment: Carleen Anaya WPtel: [phone] [facility] (15 min) Moderate 07/02/2016 Patient Education: Patient Medication Summary Completed 07/02/2016 Care Plan: Referral Order SNOMED-CT : [id number] Pending 07/02/2016 Visit Plan: Hypertension - well [...] planning on getting a flu shot at [facility] and she is due for another pneumovax- last pneumovax was in 2008 - so she can have pneumovax now and the prevnar in 2017 05/21/2016 Appointment: Car[facility] Anaya [facility]Ptel[phone] [facility] (15 min) Moderate 05/21/2016 Patient Education: Patient Medication Summary Completed 05/21/2016 Referral: [place], [address] Referral Completed 05/12/2016 Visit Plan: Esophageal [...] times daily 05/07/2016 Appointment: Carleen Anaya WPtel: [address] [place] [address] (15 min) Moderate 05/07/2016 Patient Education: Patient Medication Summary Completed 05/07/2016 Appointment: Mimi Espinosa WPtel: [address] [place] [address] (30 min) Complex 05/01/2016 Visit Plan: Allergies [...] Kenalog injection today in the office Sore wzbfpr-jqmtvtzfd-cjfpi dexilant-refer to Dr Del Real for evaluation 04/28/2016 Appointment: Mimi Espinosa WPtel: [address] [place] [address] (30 min) Complex 04/28/2016 Patient Education: Patient [...] switched. 04/07/2016 App[facility]ment[phone] [id number] ([facility] min) Complex 04/07/2016 Patient [...] atigue-check labs including UA-culture if positive Urge cjonvcqqtutx-znimttgua-qdyij UA with C&S 04/03/2016 Appointment: Mimi Espinosa WPtel: [phone] [phone] (30 min) Complex 04/03/2016 Patient Education: Patient Medication Summary Completed 04/03/2016 Visit Plan: Hypertension - well controlled - continue with current medications, continue with no added salt diet. Pt has been encouraged to exercise daily. The pt has been advised to call the office if there are any acute concerns about change in blood pressure readings at home. Ugaxtjuyd-ydslaffj-tjwmtdhw MRI brain Right ankle jihu-jfsyaup-oeoq right ankle- plan to refer to physical therapy if appropriate 01/31/2016 Appointment: [facility] [phone] [phone] (30 min) Complex 01/31/2016 Patient Education: [...] medications. 07/31/2015 [phone] (15 min) Moderate 07/31/2015 Patient Education: Patient Medication Summary Completed 07/31/2015 Patient Education: Hypertension Completed 07/31/2015 Care Plan: Referral Order SNOMED-CT : [id number] Ordered 07/31/2015 Visit Plan: Hypertension - uncontrolled [...] on Nortryptyline 07/03/2015 Appointment: Carleen Anaya WPtel: [address] [place], [place] [id number] (15 min) Moderate 07/03/2015 Patient Education: Patient [...] 01/11/2015 Referral: [facility]: [phone] [id number] Referral Appointment Requested Referral: External, Ordering Provider Referral Appointment Requested Referral: External, Ordering Provider Referral Relationship Referral: Nasima [address] Referral Appointment Requested Instructions Comment Flonase [...] planning on getting a flu shot at [facility] and she is due for [...] heart beat - recommended evaluation by her [employer] - Dr. Butler - I attempted a [...] Kenalog injection today in the office Sore jjomww-zqywatalg-axrsa dexilant-refer to Dr Del Real for evaluation [...] Fatigue-check labs including UA-culture if positive Urge ggourghbeihf-goungpqgo-kwzbp UA with C&S add z-pack, continue cefdinir [...] edema. Weakness-fatigue- check labs Dysuria- check UA KBY-inibiwjcwx-ai changes in medications . Hypertension - well controlled - continue with current medications, continue with no added salt diet. Pt has been encouraged to exercise daily. The pt has been advised to call the office if there are any acute concerns about change in blood pressure readings at home. Pnkkwmszj-acsuersj-mkqvtqpz MRI brain Right ankle vlgo-xhnaijx-mbhe right ankle-plan to refer to physical therapy [...] improve or if they worsen. referral to [facility] physical therapy. . Hypertension - well controlled [...] do not improve or if they worsen. [id number] - kenalog Stop Oxybutynin chloride ER. Start [...] is to keep her appointment with her underwriting operations manager for her ECHO and Carotid US. Pt [...] on carafate 1 gram four times daily Discuss with Dr. Bowman to switch warfarin [...]
--- OUTSIDE RECORDS SUMMARY | 2019-01-01 13:01 | XMS REPORT | CCD ---
Author Author [facility] Organization [facility] Address [address] [place] [address] Phone Care Team Providers Care Manager Costing Name Role Phone PP Unavailable CCM Unavailable Summary Purpose Interface Exchange Insurance Providers Payer name Policy type / Coverage type Covered democrat ID Effective Begin Date Effective End Date WPS Medicare Part B Medicare Part B [id number] Unknown Unknown [facility] Medicare Part B [id number] Unknown Unknown Family history Father Diagnosis Age At Onset Cancer Unknown Arthritis Unknown Mother Diagnosis Age At Onset Breast cancer Unknown Arthritis Unknown Social History Social History Element Codes Description Effective Dates Alcohol history Unknown occasionally drinks alcohol 06/08/2018 Frequency of drinks SNOMED CT: 683343881 Drinks rarely 06/08/2018 Marital status Unknown 01/11/2015 Number of children Unknown 3 01/11/2015 Employment Unknown Retired 01/11/[address]: 6782431 Quit over 10 years ago 1950 01/11/[address]: 432871810 Never drinks alcohol 01/11/2015 Allergies, Adverse Reactions, Alerts Substance Reaction Codes Entered Date Inactivated Date Status * OTHER REACTION - SEE ANSWER BOX vancogein red Unknown 01/11/2015 No Inactive Date Active CODEINE RxNorm: 2670 01/11/2015 No Inactive Date Active demerol RxNorm: 840876 08/30/2015 No Inactive Date Active hydrocodone Unknown 01/11/2015 No Inactive Date Active MORPHINE AND RELATED Unknown 01/11/2015 No Inactive Date Active Past Medical History Illness Codes Condition Status Onset Date Resolved Date Encounter for general adult medical examination with abnormal findings ICD-9: V70.0 ICD-10: Z00.01 Active 06/08/2018 Unknown Dysuria ICD-9: 788.1 ICD-10: R30.0 Active 2017 Unknown Essential (primary) hypertension ICD-9: 401.1 ICD-10: I10 Active 11/13/2016 Unknown Localized edema ICD-9: 782.3 ICD-10: R60.0 Active 08/05/2017 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 [...] ICD-9: 244.8 ICD-10: E03.4 Active 01/05/2017 Unknown Urge incontinence ICD-9: 788.31 ICD-10: N39.41 [...] ICD-9: V03.82 ICD-10: Z23 Active 06/18/2017 Unknown Other fatigue ICD-9: 780.79 ICD-10: R53.83 Active 04/02/2016 Unknown Presence of xenogenic heart valve ICD-9: [...] Codes Effective Dates Condition Status Encounter for general adult medical examination with abnormal findings ICD-9: V70.0 ICD-10: Z00.01 06/08/2018 Active Dysuria ICD-9: 788.1 ICD-10: R30.0 2017 Active Essential (primary) hypertension ICD-9: 401.1 ICD-10: I10 11/13/2016 Active Localized edema ICD-9: 782.3 ICD-10: R60.0 08/05/2017 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 [...] (acquired) ICD-9: 244.8 ICD-10: E03.4 01/05/2017 Active Urge incontinence ICD-9: 788.31 ICD-10: N39.41 [...] immunization ICD-9: V03.82 ICD-10: Z23 06/18/2017 Active Other fatigue ICD-9: 780.79 ICD-10: R53.83 04/02/2016 Active Presence of xenogenic heart valve ICD-9: [...] Instructions Vitamin D3 400 unit capsule RxNorm: 827079 1 Capsule(s) PO daily 06/17/2018 No Stop Date Active Aspirin Low Dose 81 mg tablet,delayed release RxNorm: 226593 1 Tablet(s) PO BIW on Thursday and Thursday06/17/2018 No Stop Date Active biotin 1,000 mcg chewable tablet RxNorm: 8159208 1 Tablet(s) PO daily 06/17/2018 No Stop Date Active Vitamin B-12 500 mcg tablet RxNorm: 657375 1 Tablet(s) PO daily 06/17/2018 No Stop Date Active Colace 100 mg capsule RxNorm: 3084392 1 Capsule(s) PO QHS 06/08/2018 No Stop Date Active Coumadin 3 mg tablet RxNorm: 115099 1 Tablet(s) PO daily x5 days and 2 mg x2 days -Managed by Dr. Bowman 06/08/2018 No Stop Date Active Keflex 500 mg capsule RxNorm: 976805 1 Capsule(s) PO TID 05/25/2018 05/31/2018 Inactive metoprolol succinate ER 100 mg tablet,extended release 24 hr RxNorm: 195120 Tablet(s) TAKE ONE TABLET BY MOUTH ONCE DAILY 05/19/2018 No Stop Date Active Coumadin 3 mg tablet RxNorm: 229608 1 Tablet(s) PO daily -Managed by Dr. Bowman 05/04/2018 06/07/2018 Inactive Synthroid 175 mcg tablet RxNorm: 331762 TAKE 1 TABLET BY MOUTH ONCE DAILY 04/06/2018 06/07/2018 Inactive cyclobenzaprine 5 mg tablet RxNorm: 840421 1/2 Tablet(s) PO TID 04/06/2018 04/15/2018 Inactive Synthroid 200 mcg tablet RxNorm: 655007 1 Tablet(s) PO TIW [facility] 04/05/2018 08/02/2018 Active brand name only- Alternate with 175mcg dose schedule Synthroid 175 mcg tablet RxNorm: 443155 1 Tablet(s) PO 4 times a week Thu04/05/2018 09/01/2018 Active alternate with 175mcg order cyclobenzaprine 5 mg tablet RxNorm: 564898 1/2 Tablet(s) PO TID 03/23/2018 04/01/2018 Inactive tramadol 50 mg tablet RxNorm: 995443 1 Tablet(s) PO TID as needed 03/17/2018 No Stop Date Active Kenalog 40 mg/mL suspension for injection RxNorm: 7851706 2 Milliliter(s) Inj 03/12/2018 03/12/2018 Inactive prednisone 20 mg tablet RxNorm: 206359 2 Tablet(s) PO daily 03/11/2018 03/10/2018 Inactive prednisone 20 mg tablet RxNorm: 771223 2 Tablet(s) PO daily 03/11/2018 03/15/2018 Inactive losartan 25 mg tablet RxNorm: 213445 TAKE ONE TABLET BY MOUTH ONCE DAILY 02/16/2018 No Stop Date Active doxycycline hyclate 100 mg tablet RxNorm: 5446597 1 Tablet(s) PO BID 02/08/2018 02/14/2018 Inactive ceftriaxone 500 mg solution for injection RxNorm: 7072585 Inj 02/08/2018 02/08/2018 Inactive dapsone 25 mg tablet RxNorm: 082923 2 Tablet(s) PO daily 02/08/2018 02/12/2018 Inactive metoprolol succinate ER 100 mg tablet,extended release 24 hr RxNorm: 633356 TAKE ONE TABLET BY MOUTH ONCE DAILY 01/05/2018 05/18/2018 Inactive Synthroid 175 mcg tablet RxNorm: 223537 1 Tablet(s) PO daily 01/01/2018 03/31/2018 Inactive Synthroid 175 mcg tablet RxNorm: 301744 1 Tablet(s) PO daily 01/01/2018 12/31/2017 Inactive Myrbetriq 50 mg tablet,extended release RxNorm: 4184602 1 Tablet(s) PO daily 12/03/2017 01/01/2018 Inactive Zithromax Z-Oliver 250 mg tablet RxNorm: 565907 1 Tablet(s) PO UD 10/12/2017 10/16/2017 Inactive Tessalon Perles 100 mg capsule RxNorm: 215223 2 Capsule(s) PO TID as needed 10/12/2017 10/16/2017 Inactive prednisone 20 mg tablet RxNorm: 038794 2 Tablet(s) PO daily 10/12/2017 10/16/2017 Inactive cefdinir 300 mg capsule RxNorm: 593427 1 Capsule(s) PO BID 10/08/2017 10/07/2017 Inactive Synthroid 150 mcg tablet RxNorm: 812961 1 Tablet(s) PO daily in morning, except 1/2 Tablet PO Thu, Sat, take 30 minutes before meal 10/08/2017 04/04/2018 Inactive brand name only cefdinir 300 mg capsule RxNorm: 290767 1 Capsule(s) PO BID 10/08/2017 10/14/2017 Inactive Synthroid 150 mcg tablet RxNorm: 691613 1 Tablet(s) PO daily in morning, take 30 minutes before meal 10/06/2017 10/07/2017 Inactive brand name only cefdinir 300 mg capsule RxNorm: 044263 1 Capsule(s) PO BID 08/24/2017 08/30/2017 Inactive Zithromax Z-Oliver 250 mg tablet RxNorm: 655317 1 Tablet(s) PO UD 08/20/2017 08/19/2017 Inactive Zithromax Z-Oliver 250 mg tablet RxNorm: 409626 1 Tablet(s) PO UD 08/20/2017 08/24/2017 Inactive Synthroid 150 mcg tablet RxNorm: 499836 1 Tablet(s) PO daily in morning, take 30 minutes before meal 08/05/2017 08/04/2017 Inactive Synthroid 150 mcg tablet RxNorm: 772904 1 Tablet(s) PO daily in morning, take 30 minutes before meal 08/05/2017 10/05/2017 Inactive Coumadin 3 mg tablet RxNorm: 305479 1 Tablet(s) PO Thursday, , , and Thu- Managed by Dr. Bowman -Managed by Dr. Bowman 08/05/2017 05/03/2018 Inactive pantoprazole 40 mg tablet,delayed release RxNorm: 767634 1 Tablet(s) PO BID 07/08/2017 07/02/2018 Active pantoprazole 40 mg tablet,delayed release RxNorm: 368027 1 Tablet(s) PO BID 07/08/2017 07/07/2017 Inactive metoprolol succinate ER 100 mg tablet,extended release 24 hr RxNorm: 633863 TAKE ONE TABLET BY MOUTH ONCE DAILY 07/08/2017 01/04/2018 Inactive Coumadin 3 mg tablet RxNorm: 480085 1 Tablet(s) PO QPM -Managed by Dr. Bowman 07/06/2017 08/04/2017 Inactive Coumadin 3 mg tablet RxNorm: 544454 1 Tablet(s) PO QPM at 6:00pm Managed by Dr Bowman 1/2 pill on thursday and thursday, full pill other days 06/18/2017 07/05/2017 Inactive Voltaren 1 % topical gel RxNorm: 746210 2 TOP QID 06/18/2017 10/15/2017 Inactive Micro-K 10 10 mEq capsule,extended release RxNorm: 863085 1 Capsule(s) PO daily 05/08/2017 12/02/2017 Inactive Synthroid 137 mcg tablet RxNorm: 289987 1 Tablet(s) PO QAM 05/08/2017 08/04/2017 Inactive Dose increased 04/14/17 pravastatin 10 mg tablet RxNorm: 757905 1 Tablet(s) PO daily TAKE ONE TABLET BY MOUTH ONCE DAILY 05/08/2017 12/02/2017 Inactive losartan 25 mg tablet RxNorm: 695778 1 Tablet(s) PO daily TAKE ONE TABLET BY MOUTH ONCE DAILY 05/08/2017 06/07/2018 Inactive Namenda 10 mg tablet RxNorm: 724244 TAKE ONE TABLET BY MOUTH TWICE DAILY 05/07/2017 12/02/2017 Inactive Keflex 500 mg capsule RxNorm: 665455 1 Capsule(s) PO TID 04/27/2017 05/03/2017 Inactive Synthroid 137 mcg tablet RxNorm: 663793 1 Tablet(s) PO QAM 04/14/2017 04/13/2017 Inactive Vitamin D2 50,000 unit capsule RxNorm: 079561 1 Capsule(s) PO QW 04/14/2017 12/02/2017 Inactive Synthroid 137 mcg tablet RxNorm: 532988 1 Tablet(s) PO QAM 04/14/2017 05/07/2017 Inactive losartan 25 mg tablet RxNorm: 089593 TAKE ONE TABLET BY MOUTH ONCE DAILY 03/23/2017 05/07/2017 Inactive Synthroid 125 mcg tablet RxNorm: 499177 TAKE ONE TABLET BY MOUTH ONCE DAILY 03/12/2017 04/12/2017 Inactive ciprofloxacin 500 mg tablet RxNorm: 202263 1 Tablet(s) PO BID 2017 03/13/2017 Inactive prednisone 20 mg tablet RxNorm: 114074 2 Tablet(s) PO daily 03/03/2017 03/07/2017 Inactive tramadol 50 mg tablet RxNorm: 541293 1/2 Tablet(s) PO TID as needed 03/03/2017 12/02/2017 Inactive pravastatin 10 mg tablet RxNorm: 573303 TAKE ONE TABLET BY MOUTH ONCE DAILY 01/19/2017 05/07/2017 Inactive nortriptyline 10 mg capsule RxNorm: 981880 TAKE ONE CAPSULE BY MOUTH ONCE DAILY IN THE EVENING 01/14/2017 12/02/2017 Inactive Voltaren 1 % topical gel RxNorm: 914523 TOP QID 12/22/2016 02/19/2017 Inactive Voltaren 1 % topical gel RxNorm: 042319 TOP QID 12/22/2016 12/21/2016 Inactive prednisone 20 mg tablet RxNorm: 390431 2 Tablet(s) PO daily 12/19/2016 12/23/2016 Inactive cyclobenzaprine 5 mg tablet RxNorm: 734812 1/2 Tablet(s) PO BID as needed 12/19/2016 12/23/2016 Inactive Flector 1.3 % transdermal 12 hour patch RxNorm: 144905 1 Patch TOP every 12 hours as needed 12/19/2016 12/02/2017 Inactive losartan 25 mg tablet RxNorm: 672050 1 Tablet(s) PO daily TAKE ONE TABLET BY MOUTH ONCE DAILY 11/13/2016 03/22/2017 Inactive Namenda 10 mg tablet RxNorm: 744012 TAKE ONE TABLET BY MOUTH TWICE DAILY 10/28/2016 04/25/2017 Inactive nortriptyline 10 mg capsule RxNorm: 181680 TAKE ONE CAPSULE BY MOUTH ONCE DAILY IN THE EVENING 10/13/2016 01/10/2017 Inactive ceftriaxone 500 mg solution for injection RxNorm: 0118517 Inj 10/06/2016 10/06/2016 Inactive cefdinir 300 mg capsule RxNorm: 199288 1 Capsule(s) PO BID 10/06/2016 10/12/2016 Inactive prednisone 20 mg tablet RxNorm: 498910 2 Tablet(s) PO daily 10/06/2016 10/08/2016 Inactive ProAir RespiClick 90 mcg/actuation breath activated RxNorm: 0699859 2 INH TID x 3 days then one inhale tid x 3 days then prn shortness of breath 10/06/2016 11/04/2016 Inactive Kenalog 40 mg/mL suspension for injection RxNorm: 2729809 1 Milliliter(s) Inj 10/06/2016 10/06/2016 Inactive Myrbetriq 50 mg tablet,extended release RxNorm: 8727302 1 Tablet(s) PO daily 09/11/2016 11/12/2016 Inactive Namenda 10 mg tablet RxNorm: 986205 TAKE ONE TABLET BY MOUTH TWICE DAILY 07/25/2016 10/22/2016 Inactive hydrochlorothiazide 25 mg tablet RxNorm: 163090 1 Tablet(s) PO daily 07/25/2016 12/02/2017 Inactive Synthroid 125 mcg tablet RxNorm: 771884 TAKE ONE TABLET BY MOUTH ONCE DAILY 07/14/2016 03/10/2017 Inactive losartan 25 mg tablet RxNorm: 296096 TAKE ONE TABLET BY MOUTH ONCE DAILY 07/07/2016 11/12/2016 Inactive metoprolol succinate ER 100 mg tablet,extended release 24 hr RxNorm: 358464 1 Tablet(s) PO daily 06/16/2016 06/10/2017 Inactive nortriptyline 10 mg capsule RxNorm: 876726 Capsule(s) TAKE ONE CAPSULE BY MOUTH ONCE DAILY IN THE EVENING 06/09/2016 10/06/2016 Inactive Myrbetriq 50 mg tablet,extended release RxNorm: 5280733 1 Tablet(s) PO daily 05/21/2016 09/10/2016 Inactive doxycycline hyclate 100 mg tablet RxNorm: 397656 1 Tablet(s) PO BID 05/07/2016 05/13/2016 Inactive Carafate 100 mg/mL oral suspension RxNorm: 426780 10 Milliliter(s) PO QID 05/07/2016 12/02/2017 Inactive Kenalog 40 mg/mL suspension for injection RxNorm: 8583559 Milliliter(s) Inj 04/28/2016 04/28/2016 Inactive losartan 25 mg tablet RxNorm: 284503 TAKE ONE TABLET BY MOUTH ONCE DAILY 04/08/2016 07/06/2016 Inactive ciprofloxacin 500 mg tablet RxNorm: 137491 1 Tablet(s) PO BID 04/07/2016 04/13/2016 Inactive cyclobenzaprine 5 mg tablet RxNorm: 365090 1 Tablet(s) PO TID 04/07/2016 04/16/2016 Inactive Keflex 500 mg capsule RxNorm: 966399 1 Capsule(s) PO TID 04/03/2016 04/02/2016 Inactive Keflex 500 mg capsule RxNorm: 686952 1 Capsule(s) PO TID 04/03/2016 04/09/2016 Inactive losartan 25 mg tablet RxNorm: 746379 TAKE ONE TABLET BY MOUTH ONCE DAILY 03/06/2016 04/07/2016 Inactive nortriptyline 10 mg capsule RxNorm: 252769 TAKE ONE CAPSULE BY MOUTH ONCE DAILY IN THE EVENING 03/06/2016 06/03/2016 Inactive pravastatin 10 mg tablet RxNorm: 379832 TAKE ONE TABLET BY MOUTH ONCE DAILY 02/04/2016 01/18/2017 Inactive warfarin 4 mg tablet RxNorm: 547133 Tablet(s) PO q d except 5mg on tue 01/31/2016 06/17/2017 Inactive Myrbetriq 50 mg tablet,extended release RxNorm: 4253355 1 Tablet(s) PO daily 01/17/2016 05/15/2016 Inactive Namenda 10 mg tablet RxNorm: 819216 1 Tablet(s) PO BID 01/01/2016 06/28/2016 Inactive Myrbetriq 50 mg tablet,extended release RxNorm: 3647800 1 Tablet(s) PO daily 12/20/2015 12/20/2015 Inactive Synthroid 125 mcg tablet RxNorm: 807072 1 Tablet(s) PO daily 11/14/2015 07/10/2016 Inactive nortriptyline 10 mg capsule RxNorm: 074687 TAKE ONE CAPSULE BY MOUTH ONCE DAILY IN THE EVENING 11/05/2015 03/03/2016 Inactive Myrbetriq 50 mg tablet,extended release RxNorm: 3479689 1 Tablet(s) PO daily 10/01/2015 12/19/2015 Inactive Namenda 10 mg tablet RxNorm: 733984 1 Tablet(s) PO BID 08/30/2015 12/31/2015 Inactive Vesicare 10 mg tablet RxNorm: 580289 1 Tablet(s) PO daily 08/30/2015 09/30/2015 Inactive warfarin 4 mg tablet RxNorm: 537453 Tablet(s) PO 08/30/2015 01/30/2016 Inactive Synthroid 125 mcg tablet RxNorm: 946777 1 Tablet(s) PO daily 08/02/2015 11/13/2015 Inactive Synthroid 125 mcg tablet RxNorm: 476932 Tablet(s) PO 08/01/2015 08/01/2015 Inactive losartan 25 mg tablet RxNorm: 837320 1 Tablet(s) PO daily 07/31/2015 02/25/2016 Inactive pravastatin 10 mg tablet RxNorm: 192349 1 Tablet(s) PO daily 07/23/2015 01/18/2016 Inactive hydrochlorothiazide 25 mg tablet RxNorm: 371078 1 Tablet(s) PO daily 07/19/2015 07/12/2016 Inactive nortriptyline 10 mg capsule RxNorm: 182537 1 Capsule(s) PO QPM 07/03/2015 10/30/2015 Inactive metoprolol succinate ER 100 mg tablet,extended release 24 hr RxNorm: 739061 1 Tablet(s) PO daily 06/06/2015 05/30/2016 Inactive pravastatin 10 mg tablet RxNorm: 134914 1 Tablet(s) PO daily 01/22/2015 07/20/2015 Inactive aspirin 81 mg capsule,delayed release RxNorm: 641720 1 Capsule(s) PO daily 01/11/2015 02/09/2015 Inactive Fosamax 5 mg tablet RxNorm: 723489 1 Tablet(s) QW 01/11/2015 12/02/2017 Inactive oxybutynin chloride ER 10 mg tablet,extended release 24 hr RxNorm: 488483 1 Tablet(s) PO daily 01/11/2015 08/29/2015 Inactive Fosamax 70 mg tablet RxNorm: 529826 1 Tablet(s) PO QW No Start Date Active furosemide 40 mg tablet RxNorm: 331256 1 Tablet(s) PO daily as needed No Start Date Active Claritin oral RxNorm: 15807 oral No Start Date Active Centrum oral RxNorm: oral No Start Date Active Myrbetriq 50 mg tablet,extended release RxNorm: 7270910 1 Tablet(s) PO daily No Start Date Active Calcium 600 + D(3) oral RxNorm: 017536 oral No Start Date Active Coumadin 4 mg tablet RxNorm: 659776 1 Tablet(s) PO daily on M,W,F No Start Date 06/07/2018 Inactive Vitamin D3 oral RxNorm: oral No Start Date 06/16/2018 Inactive pravastatin 10 mg tablet RxNorm: 248965 1 Tablet(s) PO daily No Start Date 01/21/2015 Inactive Aspirin Low Dose 81 mg tablet,delayed release RxNorm: 209407 1 Tablet(s) PO BIW on Thursday and Thursday No Start Date 06/16/2018 Inactive Tylenol PM oral RxNorm: 262869 oral No Start Date 04/07/2017 Inactive Vitamin D2 oral RxNorm: 4018 oral No Start Date 06/08/2018 Inactive Vitamin D2 50,000 unit capsule RxNorm: 503847 1 Capsule(s) PO QW No Start Date 04/13/2017 Inactive tramadol 50 mg tablet RxNorm: 632648 1 Tablet(s) PO TID as needed No Start Date 03/16/2018 Inactive Colace 100 mg capsule RxNorm: 9668484 Capsule(s) PO No Start Date 06/07/2018 Inactive biotin oral RxNorm: oral No Start Date 06/16/2018 Inactive Micro-K 10 10 mEq capsule,extended release RxNorm: 608769 1 Capsule(s) PO daily No Start Date 05/07/2017 Inactive Synthroid 100 mcg tablet RxNorm: 139910 Tablet(s) PO No Start Date 07/31/2015 Inactive Vitamin B-12 oral RxNorm: oral No Start Date 06/16/2018 Inactive PreserVision AREDS 2 oral RxNorm: 9438824 oral No Start Date 06/07/2018 Inactive hydrochlorothiazide 25 mg tablet RxNorm: 176346 1 Tablet(s) PO daily No Start Date 07/18/2015 Inactive warfarin 2 mg tablet RxNorm: 803731 Tablet(s) PO No Start Date 08/29/2015 Inactive metoprolol succinate ER 100 mg tablet,extended release 24 hr RxNorm: 303491 1 Tablet(s) PO daily No Start Date 06/05/2015 Inactive warfarin 3 mg tablet RxNorm: 620456 Tablet(s) PO No Start Date 08/29/2015 Inactive Coumadin 3 mg tablet RxNorm: 838138 1 Tablet(s) PO QPM at 6:00pm Managed by Dr Bowman No Start Date 06/17/2017 Inactive Medication Administered Medication Codes Instructions Start Date Status Kenalog 40 mg/mL suspension for injection RxNorm: 3101392 2Milliliter 03/12/2018 No longer Active ceftriaxone 500 mg solution for injection RxNorm: 8612462 02/08/2018 No longer Active ceftriaxone 500 mg solution for injection RxNorm: 6141213 10/06/2016 No longer Active Kenalog 40 mg/mL suspension for injection RxNorm: 5108437 1Milliliter 10/06/2016 No longer Active Kenalog 40 mg/mL suspension for injection RxNorm: 3462126 Milliliter 04/28/2016 No longer Active Immunizations Vaccine Codes Date Status SHINGARIX CVX: 121 06/08/2018 completed Influenza CVX: 141 05/20/2018 completed Influenza CVX: 141 06/18/2017 completed Influenza CVX: 141 06/10/2016 completed Pneumococcal CVX: 133 05/29/2016 completed Influenza CVX: 141 07/03/2015 completed Assessments Condition Codes Effective Dates Encounter for general adult medical examination with abnormal findings ICD-10: Z00.01 ICD-9: V70.0 06/08/2018 Dysuria ICD-10: R30.0 ICD-9: 788.1 05/25/2018 Essential (primary) hypertension ICD-10: I10 ICD-9: 401.1 05/24/2018 Localized edema ICD-10: R60.0 ICD-9: 782.3 05/24/2018 [...] Urge incontinence ICD-10: N39.41 ICD-9: 788.31 03/02/2018 Atrophy of thyroid (acquired) ICD-10: E03.4 ICD-9: 244.8 03/02/2018 Cellulitis of face ICD-10: L03.211 ICD-9: [...] Diarrhea, unspecified ICD-10: R19.7 ICD-9: 787.91 07/03/2017 Other fatigue ICD-10: R53.83 ICD-9: 780.79 06/18/2017 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 [...] Visit Reason For Visit Effective Dates Notes Annual Medicare Wellness Exam 06/08/2018 sore throat [...] NO Growth Day 2 05/27/2018 Comp Metabolic Bwt615 NA 142 mEq/L 05/24/2018 Comp Metabolic Mum985 K 4.0 mEq/L 05/24/2018 Comp Metabolic Byf358 CL 104 mEq/L 05/24/2018 Comp Metabolic Uee068 CO2 30.0 mEq/L 05/24/2018 Comp Metabolic Tag667 ANION GAP 12 05/24/2018 Comp Metabolic Pdn614 GLUCOSE 94 mg/dL 05/24/2018 Comp Metabolic Mhd050 Creat 0.6 mg/dL 05/24/2018 Comp Metabolic Kdu405 eGFR 97 ml/min/1.73m2 05/24/2018 Comp Metabolic Hqd590 BUN 12 mg/dL 05/24/2018 Comp Metabolic Dmy071 B/C Ratio 19.4 Ratio 05/24/2018 Comp Metabolic Xmw990 CALCIUM 8.8 mg/dL 05/24/2018 Comp Metabolic Ocl300 ALK PHOS 135 U/L 05/24/2018 Comp Metabolic Gcu962 AST(SGOT) 18 U/L 05/24/2018 Comp Metabolic Uin276 ALT(SGPT) 16 U/L 05/24/2018 Comp Metabolic Osh932 BILI T 0.4 mg/dL 05/24/2018 Comp Metabolic Itz591 ALBUMIN 3.9 g/dL 05/24/2018 Comp Metabolic Zbc878 TPRO 6.0 g/dL 05/24/2018 Comp Metabolic Hyz428 GLOB 2.1 g/dL 05/24/2018 Comp Metabolic Ujb167 A/G Ratio 1.8 Ratio 05/24/2018 Comp Metabolic Wic148 Osmo 283 mOsmo 05/24/2018 Pt Evh8855 PT 28.2 seconds 05/24/2018 Pt Oug3846 INR 2.6 05/24/2018 Pt Agx5412 Low Intensity - 1.5-2.0 05/24/2018 Pt Xjv9325 Mod intensity - 2.0-3.0 05/24/2018 Pt Phw7460 Hi intensity - 3.0-4.0 05/24/2018 Cbc With [...] 96.3 fl 05/24/2018 Cbc With Differential Ord2 Bulloch% 7.0 % 05/24/2018 Cbc With Differential Ord2 MCH 29.7 pg 05/24/2018 Cbc With Differential Ord2 Eos% 5.5 % 05/24/2018 Cbc With Differential Ord2 MCHC 30.8 pg 05/24/2018 Cbc With Differential Ord2 Baso% 0.4 % 05/24/2018 Cbc With Differential Ord2 PLT 198 K/ul 05/24/2018 Cbc With Differential Ord2 Neut ABS# 4.82 K/ul 05/24/2018 Cbc With Differential Ord2 RDW 15.0 % 05/24/2018 Cbc With Differential Ord2 Lymph ABS# 1.54 K/ul 05/24/2018 Cbc With Differential Ord2 [place] ABS# 0.5 K/ul 05/24/2018 Cbc With Differential Ord2 Eos ABS# 0.4 K/ul 05/24/2018 Cbc With Differential Ord2 Baso ABS# 0.0 K/ul 05/24/2018 Tsh Ord6 TSH (3rd IS) 3.19 uIU/mL 10/06/2017 Free T4 Rho764 FREE T4 1.64 ng/dL 10/06/2017 Free T4 Zsu905 FREE T4 1.03 ng/dL 08/05/2017 Tsh Ord6 hTSH II 6.19 uIU/mL 08/05/2017 Urine Culture Ucult Complete NO Growth Day 2 04/29/2017 Urine Culture Ucult Preliminary NO Growth Day 1 04/29/2017 Cbc With Differential Ord2 WBC 7.51 K/ul [...] 28.9 pg 04/09/2017 Cbc With Differential Ord2 [place]% 8.8 % 04/09/2017 Cbc With Differential Ord2 MCHC 32.3 pg 04/09/2017 Cbc With Differential Ord2 Eos% 1.7 % 04/09/2017 Cbc With Differential Ord2 PLT 207 K/ul 04/09/2017 Cbc With Differential Ord2 Baso% 0.5 % 04/09/2017 Cbc With Differential Ord2 Neut ABS# 5.46 K/ul 04/09/2017 Cbc With Differential Ord2 RDW 15.2 % 04/09/2017 Cbc With Differential Ord2 Lymph ABS# 1.22 K/ul 04/09/2017 Cbc With Differential Ord2 [place] ABS# 0.7 K/ul 04/09/2017 Cbc With Differential Ord2 Eos ABS# 0.1 K/ul 04/09/2017 Cbc With Differential Ord2 Baso ABS# 0.0 K/ul 04/09/2017 Vitamin D 25 Oh [id number] VITAMIN D, 25 HYDROXY 34.31 ng/mL 04/09/2017 Comp Metabolic Ekv910 NA 136 mEq/L 04/09/2017 Comp Metabolic Ded553 K 3.9 mEq/L 04/09/2017 Comp Metabolic Uvn342 CL 98 mEq/L 04/09/2017 Comp Metabolic Mzu223 CO2 28.0 mEq/L 04/09/2017 Comp Metabolic Gcl605 ANION GAP 14 04/09/2017 Comp Metabolic Ynt655 GLUCOSE 90 mg/dL 04/09/2017 Comp Metabolic Hyb185 Creat 0.6 mg/dL 04/09/2017 Comp Metabolic Toe264 eGFR 102 ml/min/1.73m2 04/09/2017 Comp Metabolic Mkl074 BUN 9 mg/dL 04/09/2017 Comp Metabolic Pzr873 B/C Ratio 15.3 Ratio 04/09/2017 Comp Metabolic Qlx370 CALCIUM 8.8 mg/dL 04/09/2017 Comp Metabolic Kcv145 ALK PHOS 102 U/L 04/09/2017 Comp Metabolic Mbw992 AST(SGOT) 18 U/L 04/09/2017 Comp Metabolic Cbh259 ALT(SGPT) 14 U/L 04/09/2017 Comp Metabolic Lbh262 BILI T 0.4 mg/dL 04/09/2017 Comp Metabolic Zlc410 ALBUMIN 3.9 g/dL 04/09/2017 Comp Metabolic Vfy801 TPRO 6.3 g/dL 04/09/2017 Comp Metabolic Mvm070 GLOB 2.4 g/dL 04/09/2017 Comp Metabolic Xob683 A/G Ratio 1.7 Ratio 04/09/2017 Comp Metabolic Jni334 Osmo 270 mOsmo 04/09/2017 Tibc Ord40 Iron 36 ug/dl 04/09/2017 Tibc Ord40 UIBC 281 ug/dL 04/09/2017 Tibc Ord40 TIBC 317 ug/dL 04/09/2017 Tibc Ord40 Fe-%Sat 11.4 % 04/09/2017 Free T4 Dld314 FREE T4 0.97 ng/dL 04/09/2017 Lipid Ord30 CHOL 215 mg/dL 04/09/2017 Lipid Ord30 HDL 58.0 mg/dl 04/09/2017 Lipid Ord30 TRIG 68 mg/dL 04/09/2017 Lipid Ord30 LDL 143 mg/dL 04/09/2017 Lipid Ord30 C/HDL 3.7 Ratio 04/09/2017 Tsh Ord6 hTSH II 7.92 uIU/mL 04/09/2017 Urine Culture Ucult Complete >100,000 col/ml aerobic growth sent to ref lab 03/05/2017 Pt [id number] PT 24.2 seconds 04/14/2016 Pt Nrb6886 INR 2.3 04/14/2016 Pt Xmb7731 Low Intensity - 1.5-2.0 04/14/2016 Pt Kbw4764 Mod intensity - 2.0-3.0 04/14/2016 Pt Xud0568 Hi intensity - 3.0-4.0 04/14/2016 Pt Sfu6494 PT 31.3 seconds 04/10/2016 Pt Oej1358 INR 3.3 04/10/2016 Pt Bmf8291 Low Intensity - 1.5-2.0 04/10/2016 Pt Uqy5366 Mod intensity - 2.0-3.0 04/10/2016 Pt Gvo9914 Hi intensity - 3.0-4.0 04/10/2016 C RAP A SC [id number] Strep A Negative 04/10/2016 Urine Culture Ucult Complete >100,000 col/ml aerobic growth sent to ref lab 04/04/2016 Tsh Ord6 hTSH II 3.06 uIU/mL 04/03/2016 Free T4 Rlt935 FREE T4 0.99 ng/dL 04/03/2016 Comp Metabolic Nkl554 NA 136 mEq/L 04/03/2016 Comp Metabolic Dza868 K 3.9 mEq/L 04/03/2016 Comp Metabolic Lod757 CL 99 mEq/L 04/03/2016 Comp Metabolic Awa240 CO2 32.0 mEq/L 04/03/2016 Comp Metabolic Nlt492 ANION GAP 9 04/03/2016 Comp Metabolic Bfm049 GLUCOSE 88 mg/dL 04/03/2016 Comp Metabolic Mcq519 Creat 0.6 mg/dL 04/03/2016 Comp Metabolic Zvw261 eGFR 93 ml/min/1.73m2 04/03/2016 Comp Metabolic Rsg947 BUN 15 mg/dL 04/03/2016 Comp Metabolic Vrl095 B/C Ratio 23.4 Ratio 04/03/2016 Comp Metabolic Sdw746 CALCIUM 8.7 mg/dL 04/03/2016 Comp Metabolic Gjn645 ALK PHOS 100 U/L 04/03/2016 Comp Metabolic Pqj872 AST(SGOT) 28 U/L 04/03/2016 Comp Metabolic Vgw866 ALT(SGPT) 39 U/L 04/03/2016 Comp Metabolic Oky909 BILI T 0.5 mg/dL 04/03/2016 Comp Metabolic Aex117 ALBUMIN 4.1 g/dL 04/03/2016 Comp Metabolic Hcy425 TPRO 6.6 g/dL 04/03/2016 Comp Metabolic Mro426 GLOB 2.5 g/dL 04/03/2016 Comp Metabolic Fba383 A/G Ratio 1.7 Ratio 04/03/2016 Comp Metabolic Iyz379 Osmo 272 mOsmo 04/03/2016 Cbc With Differential Ord2 WBC 7.27 K/ul 04/03/2016 Cbc With Differential Ord2 RBC 4.35 M/ul 04/03/2016 Cbc With Differential Ord2 HGB 12.6 g/dl 04/03/2016 Cbc With Differential Ord2 Neut% 70.2 % 04/03/2016 Cbc With Differential Ord2 HCT 39.7 % 04/03/2016 Cbc With Differential Ord2 Lymph% 15.8 % 04/03/2016 Cbc With Differential Ord2 MCV 91.3 fl 04/03/2016 Cbc With Differential Ord2 Bulloch% 11.3 % 04/03/2016 Cbc With Differential Ord2 [...] 1.15 K/ul 04/03/2016 Cbc With Differential Ord2 [place] ABS# 0.8 K/ul 04/03/2016 Cbc With Differential Ord2 Eos ABS# 0.2 K/ul 04/03/2016 Cbc With Differential Ord2 Baso ABS# 0.0 K/ul 04/03/2016 Comp Metabolic Pkw386 NA 136 mEq/L 07/31/2015 Comp Metabolic Xvv386 K 3.8 mEq/L 07/31/2015 Comp Metabolic Uua076 CL 97 mEq/L 07/31/2015 Comp Metabolic Rjh737 CO2 29.0 mEq/L 07/31/2015 Comp Metabolic Vqk598 ANION GAP 14 07/31/2015 Comp Metabolic Jmo919 GLUCOSE 90 mg/dL 07/31/2015 Comp Metabolic Okc977 Creat 0.7 mg/dL 07/31/2015 Comp Metabolic Egb102 eGFR 80 ml/min/1.73m2 07/31/2015 Comp Metabolic Ggp002 BUN 8 mg/dL 07/31/2015 Comp Metabolic Caj607 B/C Ratio 11.0 Ratio 07/31/2015 Comp Metabolic Ehy980 CALCIUM 8.9 mg/dL 07/31/2015 Comp Metabolic Bet139 ALK PHOS 102 U/L 07/31/2015 Comp Metabolic Ekq602 AST(SGOT) 22 U/L 07/31/2015 Comp Metabolic Clc655 ALT(SGPT) 14 U/L 07/31/2015 Comp Metabolic Tnc140 BILI T 0.5 mg/dL 07/31/2015 Comp Metabolic Bht593 ALBUMIN 4.4 g/dL 07/31/2015 Comp Metabolic Kfh653 TPRO 6.7 g/dL 07/31/2015 Comp Metabolic Cjr353 GLOB 2.3 g/dL 07/31/2015 Comp Metabolic Kzf912 A/G Ratio 1.9 Ratio 07/31/2015 Comp Metabolic Tfw317 Osmo 270 mOsmo 07/31/2015 Free T4 Fkb765 FREE T4 0.81 ng/dL 07/31/2015 Tsh Ord6 hTSH II 13.88 uIU/mL [...] Lipid Ord30 C/HDL 4.8 Ratio 07/31/2015 Pt Xhj8448 PT 31.9 seconds 07/03/2015 Pt Fce5102 INR 3.2 07/03/2015 Pt Wvf8285 Low Intensity - 1.5-2.0 07/03/2015 Pt Ozr0862 Mod intensity - 2.0-3.0 07/03/2015 Pt Dgg6679 Hi intensity - 3.0-4.0 07/03/2015 Review of Systems System Result Effective Dates Constitutional No recent illness 06/08/2018 Constitutional No [...] benign 01/11/2015 None Full Exam - General 1995 Lymphatic neck nodes Overall: posterior cervical chain benign 01/11/2015 None Procedures Procedure Codes Date PPPS, SUBSEQ VISIT CPT- 4: G0439 06/08/2018 URINALYSIS NONAUTO W/O SCOPE CPT-4: 42139 05/25/2018 ADMIN INFLUENZA VIRUS VAC CPT-4: G0008 05/20/2018 FLU VACC PRSV FREE INC ANTIG CPT-4: 54408 05/20/2018 DRAIN/INJECT JOINT/BURSA CPT-4: 54866 03/23/2018 TRIAMCINOLONE ACET INJ NOS CPT-4: J3301 03/23/2018 DRAIN/INJECT JOINT/BURSA CPT-4: 30066 03/12/2018 TRIAMCINOLONE ACET INJ NOS CPT-4: J3301 03/12/2018 ROCEPHIN, PER 250 MG CPT- 4: J0696 02/08/2018 ADMIN INFLUENZA VIRUS VAC CPT-4: G0008 06/18/2017 FLU VACC PRSV FREE INC ANTIG CPT-4: 16067 06/18/2017 URINALYSIS NONAUTO W/O SCOPE CPT-4: 67854 04/27/2017 URINALYSIS NONAUTO W/O SCOPE CPT-4: 15676 2017 DRAIN/INJECT JOINT/BURSA CPT-4: 35110 03/03/2017 TRIAMCINOLONE ACET INJ NOS CPT-4: J3301 03/03/2017 TRIAMCINOLONE ACET INJ NOS CPT-4: J3301 10/06/2016 ROCEPHIN, PER 250 MG CPT- 4: J0696 10/06/2016 THER/PROPH/DIAG INJ SC/IM CPT-4: 16350 10/06/2016 TRIAMCINOLONE ACET INJ NOS CPT-4: J3301 04/28/2016 URINALYSIS NONAUTO W/O SCOPE CPT-4: 78566 04/03/2016 ADMIN INFLUENZA VIRUS VAC CPT-4: G0008 07/03/2015 FLU VACC PRSV FREE INC ANTIG CPT-4: 63735 07/03/2015 Vital Signs Date Vital 06/08/2018 Blood Pressure 1: 144/66 Code: 8480-6 BMI: 27.9 Code: 75685-2 Heart Rate 1: 85 bpm Height: 5'6" SpO2: 97% Waist Measure (cm): 97 cm Weight: 173 lbs 05/24/2018 Blood Pressure 1: 128/72 Code: 8480-6 BMI: 27.9 Code: 32002-5 Heart Rate 1: 82 bpm Height: 5'6" SpO2: 92% Weight: 173 lbs 04/06/2018 Blood Pressure 1: 138/88 Code: 8480-6 Heart Rate 1: 86 bpm Height: SpO2: 96% Weight: 03/23/2018 Blood Pressure 1: 150/88 Code: 8480-6 Heart Rate 1: 80 bpm Height: SpO2: 96% Weight: 03/12/2018 Heart Rate 1: 90 bpm Height: Weight: 03/02/2018 Blood Pressure 1: 128/80 Code: 8480-6 BMI: 28.4 Code: 65952-8 Heart Rate 1: 83 bpm Height: 5'6" SpO2: 93% Weight: 176 lbs 02/08/2018 Blood Pressure 1: 142/80 Code: 8480-6 Heart Rate 1: 78 bpm Height: 5'6" SpO2: 94% 12/03/2017 Blood Pressure 1: 124/78 Code: 8480-6 BMI: 27.9 Code: 59372-9 Heart Rate 1: 70 bpm Height: 5'6" SpO2: 97% Weight: 173 lbs 10/27/2017 Blood Pressure 1: 126/60 Code: 8480-6 Heart Rate 1: 65 bpm Height: 5'6" SpO2: 98% Weight: 10/12/2017 Blood Pressure 1: 126/74 Code: 8480-6 BMI: 26.0 Code: 77586-4 Heart Rate 1: 80 bpm Height: 5'6" SpO2: 89% Weight: 161 lbs 10/06/2017 Blood Pressure 1: 126/70 Code: 8480-6 BMI: 27.2 Code: 43188-1 Heart Rate 1: 73 bpm Height: 5'6" SpO2: 97% Weight: 168 lbs 8 oz 08/05/2017 Blood Pressure 1: 152/78 Code: 8480-6 BMI: 27.1 Code: 44267-1 Heart Rate 1: 73 bpm Height: 5'6" SpO2: 98% Weight: 168 lbs 07/06/2017 Blood Pressure 1: 148/70 Code: 8480-6 BMI: 26.6 Code: 06724-8 Heart Rate 1: 80 bpm Height: 5'6" SpO2: 97% Weight: 165 lbs 06/18/2017 Blood Pressure 1: 132/68 Code: 8480-6 BMI: 26.8 Code: 42932-6 Heart Rate 1: 84 bpm Height: 5'6" [...] 1: 162/84 Code: 8480-6 BMI: 28.1 Code: 62605-5 Heart Rate 1: 98 bpm Height: 5'6" SpO2: 97% Weight: 174 lbs 03/03/2017 Blood Pressure 1: 154/88 Code: 8480-6 Heart Rate 1: 96 bpm Height: SpO2: 95% Weight: 01/05/2017 Blood Pressure 1: 142/78 Code: 8480-6 BMI: 28.9 Code: 98207-6 Heart Rate 1: 94 bpm Height: 5'6" SpO2: 95% Weight: 179 lbs 12/19/2016 Blood Pressure 1: 130/74 Code: 8480-6 Heart Rate 1: 91 bpm Height: 5'6" SpO2: 97% Weight: 11/13/2016 Blood Pressure 1: 152/82 Code: 8480-6 BMI: 28.4 Code: 61780-6 Heart Rate 1: 85 bpm Height: 5'6" SpO2: 96% Weight: 176 lbs 10/16/2016 Blood Pressure 1: 148/72 Code: 8480-6 BMI: 28.4 Code: 84831-5 Heart Rate 1: 90 bpm Height: 5'6" SpO2: 96% Weight: 176 lbs 10/06/2016 Blood Pressure 1: 150/80 Code: 8480-6 BMI: 28.4 Code: 42690-6 Heart Rate 1: 76 bpm Height: 5'6" SpO2: 97% Weight: 176 lbs 07/02/2016 Blood Pressure 1: 142/78 Code: 8480-6 BMI: 27.8 Code: 07536-5 Heart Rate 1: 85 bpm Height: 5'6" SpO2: 97% Weight: 172 lbs 05/21/2016 Blood Pressure 1: 166/80 Code: 8480-6 BMI: 27.9 Code: 35338-5 Heart Rate 1: 79 bpm Height: 5'6" SpO2: 98% Weight: 173 lbs 05/07/2016 Blood Pressure 1: 140/70 Code: 8480-6 BMI: 27.9 Code: 43566-4 Heart Rate 1: 82 bpm Height: 5'6" SpO2: 96% Weight: 173 lbs 04/28/2016 Blood Pressure 1: 128/86 Code: 8480-6 BMI: 27.4 Code: 35292-2 Heart Rate 1: 86 bpm Height: 5'6" SpO2: 96% Temperature: 36.1 (C) / 97.0 (F) Weight: 170 lbs 04/07/2016 Blood Pressure 1: 150/80 Code: 8480-6 Heart Rate 1: 94 bpm Height: SpO2: 95% Weight: 04/03/2016 Blood Pressure 1: 122/76 Code: 8480-6 BMI: 27.4 Code: 42956-1 Heart Rate 1: 84 bpm Height: 5'6" SpO2: 94% Weight: 170 lbs 01/31/2016 Blood Pressure 1: 124/82 Code: 8480-6 BMI: 27.8 Code: 73671-4 Heart Rate 1: 100 bpm Height: 5'6" SpO2: 97% Weight: 172 lbs 11/29/2015 Blood Pressure 1: 130/84 Code: 8480-6 Blood Pressure 1: 140/82 Code: 8480-6 BMI: 27.4 Code: 67655-3 Heart Rate 1: 97 bpm Height: 5'6" SpO2: 95% Weight: 170 lbs 10/01/2015 Blood Pressure 1: 130/80 Code: 8480-6 BMI: 27.4 Code: 85026-3 Heart Rate 1: 82 bpm Height: 5'6" SpO2: 97% Weight: 170 lbs 08/30/2015 Blood Pressure 1: 120/68 Code: 8480-6 BMI: 27.6 Code: 23093-0 Heart Rate 1: 91 bpm Height: 5'6" SpO2: 96% Weight: 171 lbs 07/31/2015 Blood Pressure 1: 180/80 Code: 8480-6 BMI: 27.4 Code: 56600-0 Heart Rate 1: 60 bpm Height: 5'6" SpO2: 94% Weight: 170 lbs 07/03/2015 Blood Pressure 1: 154/80 Code: 8480-6 BMI: 27.4 Code: 06073-3 Heart Rate 1: 98 bpm Height: 5'6" SpO2: 95% Weight: 170 lbs 04/10/2015 Blood Pressure 1: 138/72 Code: 8480-6 BMI: 27.8 Code: 80850-0 Heart Rate 1: 82 bpm Height: 5'6" SpO2: 98% Weight: 172 lbs 01/11/2015 Blood Pressure 1: 132/74 Code: 8480-6 BMI: 28.6 Code: 11241-7 Heart Rate 1: 88 bpm Height: 5'6" SpO2: 96% Weight: 177 lbs Functional Status No Functional Status data History of Present Illness Symptom Name Status Result Effective Date Notes Annual Medicare Wellness Exam Describe Your Health [...] data Encounters Encounter Performer Location Codes Date [id number]) 72480 EST. 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 PATIENT, LEVEL III Diagnosis: Lumbago with sciatica, right side[ICD10: M54.41] Diagnosis: Sciatica, right side[ICD10: M54.31] [facility] CPT- 4: 38255 04/06/2018 ([id number]) 76265 EST. PATIENT, LEVEL III Diagnosis: Lumbago with sciatica, right side[ICD10: M54.41] Diagnosis: Sciatica, right side[ICD10: M54.31] Carleen Anaya MD, [facility] CPT- 4: 96350 03/23/2018 41503 EST. PATIENT, LEVEL III Diagnosis: Low back pain[ICD10: M54.5] Diagnosis: Sacroiliitis, not elsewhere classified[ICD10: M46.1] Wendi Anaya MD, [facility] CPT-4: 69195 03/12/2018 ([id number]) 14668 EST. PATIENT, LEVEL IV Diagnosis: Atrophy of thyroid (acquired)[ICD10: E03.4] Diagnosis: Essential (primary) hypertension[ICD10: I10] Diagnosis: Urge incontinence[ICD10: N39.41] Carleen Anaya MD, [facility] CPT-4: 10633 03/02/2018 ([id number]) 91988 EST. PATIENT, LEVEL III Diagnosis: Cellulitis of face[ICD10: L03.211] Mimi Anaya MD, [facility] CPT- 4: 79746 02/08/2018 ([id number]) 21919 EST. PATIENT, LEVEL IV Diagnosis: Atrophy of thyroid (acquired)[ICD10: E03.4] Diagnosis: Essential (primary) hypertension[ICD10: I10] Diagnosis: Urge incontinence[ICD10: N39.41] Carleen Anaya MD, [facility] CPT-4: 82000 12/03/2017 23536 EST. PATIENT, LEVEL IV Diagnosis: Essential (primary) hypertension[ICD10: I10] Diagnosis: Weakness[ICD10: R53.1] Diagnosis: Low back pain[ICD10: M54.5] Diagnosis: Other allergic rhinitis[ICD10: J30.89] Wendi Anaya MD, [facility] CPT- 4: 27797 10/27/2017 96605 EST. PATIENT, LEVEL IV Diagnosis: Pneumonia due to other specified bacteria[ICD10: J15.8] Diagnosis: Chronic systolic (congestive) heart failure[ICD10: I50.22] Wendi Anaya MD, [facility] CPT-4: 18260 10/12/2017 ([id number]) 71317 EST. PATIENT, LEVEL IV Diagnosis: Atrophy of thyroid (acquired)[ICD10: E03.4] Diagnosis: Nonscarring hair loss, unspecified[ICD10: L65.9] Diagnosis: Essential (primary) hypertension[ICD10: I10] Carleen Anaya MD, [facility] CPT-4: 96954 10/06/2017 ([id number]) 85570 EST. PATIENT, LEVEL IV Diagnosis: Atrophy of thyroid (acquired)[ICD10: E03.4] Diagnosis: Essential (primary) hypertension[ICD10: I10] Diagnosis: Localized edema[ICD10: R60.0] Carleen Anaya MD, [facility] CPT-4: 82500 08/05/2017 ([id number]) 12609 EST. PATIENT, LEVEL IV Diagnosis: Essential (primary) hypertension[ICD10: I10] Diagnosis: Weakness[ICD10: R53.1] Diagnosis: Other fecal abnormalities[ICD10: R19.5] Carleen Anaya MD, [facility] CPT-4: 83195 07/06/2017 ([id number]) 08254 EST. 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 PATIENT, LEVEL IV Diagnosis: Pain in right shoulder[ICD10: M25.511] Diagnosis: Weakness[ICD10: R53.1] Diagnosis: Other fatigue[ICD10: R53.83] Diagnosis: Other malaise[ICD10: R53.81] Wendi Anaya MD, [facility] CPT-4: 85881 05/11/2017 ([id number]) Miscellaneous no charge Diagnosis: Essential (primary) hypertension[ICD10: I10] Mimi Anaya MD, [facility] CPT-4: 54554 04/30/2017 ([id number]) 68598 EST. PATIENT, LEVEL III Diagnosis: Acute recurrent maxillary sinusitis[ICD10: J01.01] Diagnosis: Urinary tract infection, site not specified[ICD10: N39.0] Mimi Anaya MD, [facility] CPT-4: 00748 04/27/2017 ([id number]) 67084 EST. PATIENT, LEVEL IV Diagnosis: Atrophy of thyroid (acquired)[ICD10: E03.4] Diagnosis: Essential (primary) hypertension[ICD10: I10] Diagnosis: Iron deficiency[ICD10: E61.1] Diagnosis: Other specified heart block[ICD10: I45.5] Carleen Anaya MD, [facility] CPT-4: 48646 04/08/2017 99357 EST. PATIENT, LEVEL III Diagnosis: Low back pain[ICD10: M54.5] Diagnosis: Sacroiliitis, not elsewhere classified[ICD10: M46.1] Wendi Anaya MD, [facility] CPT-4: 38133 03/03/2017 ([id number]) 88513 EST. PATIENT, LEVEL IV Diagnosis: Essential (primary) hypertension[ICD10: I10] Diagnosis: Atrophy of thyroid (acquired)[ICD10: E03.4] Diagnosis: Vascular dementia without behavioral disturbance[ICD10: F01.50] Carleen Anaya MD, [facility] CPT-4: 75994 01/05/2017 04690 EST. PATIENT, LEVEL III Diagnosis: Cervicalgia[ICD10: M54.2] Diagnosis: Other muscle spasm[ICD10: M62.838] Wendi Anaya MD, [facility] CPT-4: 94628 12/19/2016 ([id number]) 17674 EST. PATIENT, LEVEL III Diagnosis: Essential (primary) hypertension[ICD10: I10] Diagnosis: Gastro-esophageal reflux disease without esophagitis[ICD10: K21.9] Carleen Anaya MD, [facility] CPT-4: 64147 11/13/2016 ([id number]) 86483 EST. 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 PATIENT, LEVEL IV Diagnosis: Pneumonia due to other specified bacteria[ICD10: J15.8] Diagnosis: Pain in right shoulder[ICD10: M25.511] Diagnosis: Cough[ICD10: R05] Carleen Anaya MD, [facility] CPT-4: 29905 10/06/2016 ([id number]) 87681 EST. PATIENT, LEVEL IV Diagnosis: Essential (primary) hypertension[ICD10: I10] Diagnosis: Personal history of other specified conditions[ICD10: Z87.898] Diagnosis: Unsteadiness on feet[ICD10: R26.81] Carleen Anaya MD, [facility] CPT- 4: 92143 07/02/2016 ([id number]) 76797 EST. PATIENT, LEVEL IV Diagnosis: Dysphagia, pharyngeal phase[ICD10: R13.13] Diagnosis: Urge incontinence[ICD10: N39.41] Diagnosis: Gastro-esophageal reflux disease without esophagitis[ICD10: K21.9] Carleen Anaya MD, [facility] CPT-4: 53113 05/21/2016 ([id number]) 22000 EST. PATIENT, LEVEL III Diagnosis: Gastro-esophageal reflux disease without esophagitis[ICD10: K21.9] Carleen Anaya MD, [facility] CPT-4: 97241 05/07/2016 ([id number]) 73851 EST. PATIENT, LEVEL III Diagnosis: Acute laryngopharyngitis[ICD10: J06.0] Diagnosis: Dysphagia, pharyngeal phase[ICD10: R13.13] Diagnosis: Allergic rhinitis due to pollen[ICD10: J30.1] Mimi Anaya MD, [facility] CPT-4: 66630 04/28/2016 ([id number]) Miscellaneous no charge Diagnosis: Acute laryngopharyngitis[ICD10: J06.0] Wendi Anaya MD, [facility] CPT- 4: 72613 04/10/2016 67479 EST. 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 PATIENT, LEVEL IV Diagnosis: Essential (primary) hypertension[ICD10: I10] Diagnosis: Hypothyroidism, unspecified[ICD10: E03.9] Diagnosis: Other fatigue[ICD10: R53.83] Diagnosis: Urge incontinence[ICD10: N39.41] Mimi Anaya MD, [facility] CPT- 4: 87802 04/03/2016 ([id number]) 23591 EST. PATIENT, LEVEL IV Diagnosis: Essential (primary) hypertension[ICD10: I10] Diagnosis: Pain in right ankle and joints of right foot[ICD10: M25.571] Diagnosis: Dizziness and giddiness[ICD10: R42] Diagnosis: Tinnitus, bilateral[ICD10: H93.13] Mimi Anaya MD, [facility] CPT- 4: 56421 01/31/2016 ([id number]) 67132 EST. PATIENT, LEVEL IV Diagnosis: Essential (primary) hypertension[ICD10: I10] Diagnosis: Otalgia, right ear[ICD10: H92.01] Diagnosis: Allergic rhinitis due to pollen[ICD10: J30.1] Diagnosis: Hypothyroidism, unspecified[ICD10: E03.9] Mimi Anaya MD, [facility] CPT-4: 35290 11/29/2015 ([id number]) 46591 EST. PATIENT, LEVEL IV Diagnosis: Essential (primary) hypertension[ICD10: I10] Diagnosis: Urge incontinence[ICD10: N39.41] Diagnosis: Unspecified dementia without behavioral disturbance[ICD10: F03.90] Mimi Anaya MD, [facility] CPT-4: 44221 10/01/2015 ([id number]) 83378 EST. PATIENT, LEVEL IV Diagnosis: Essential (primary) hypertension[ICD10: I10] Diagnosis: Hypothyroidism, unspecified[ICD10: E03.9] Diagnosis: Unspecified dementia without behavioral disturbance[ICD10: F03.90] Diagnosis: Urge incontinence[ICD10: N39.41] Mimi Anaya MD, [facility] CPT- 4: 85813 08/30/2015 ([id number]) 25902 EST. PATIENT, LEVEL IV Diagnosis: Essential (primary) hypertension[ICD10: I10] Diagnosis: Hypothyroidism, unspecified[ICD10: E03.9] Diagnosis: Hyperlipidemia, unspecified[ICD10: E78.5] Carleen Anaya MD, [facility] CPT-4: 53989 07/31/2015 ([id number]) 84403 EST. 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 PATIENT, LEVEL IV Diagnosis: ESSENTIAL HYPERTENSION[ICD9: 401.9] Diagnosis: MACULAR DEGENERATION[ICD9: 362.50] Diagnosis: Peripheral vascular disease[ICD9: 443.9] Diagnosis: Neuropathy[ICD9: 355.9] [facility] CPT-4: 07845 04/10/2015 ([id number]) OFFICE/OUTPATIENT VISIT NEW Diagnosis: ESSENTIAL HYPERTENSION[ICD9: 401.9] Diagnosis: HYPOTHYROIDISM[ICD9: 244.9] Diagnosis: URGE INCONTINENCE[ICD9: 788.31] Diagnosis: Constipation - functional[ICD9: 564.09] [facility] CPT-4: 61403 01/11/2015 Plan of Care Planned Activity Notes Codes Status Date Visit Plan: Medicare Exam - today we [...] surrogate. 06/08/2018 [phone] [facility] - Annual Wellness Visit 06/08/2018 Patient [...] edema. Weakness-fatigue- check labs Dysuria- check UA [id number] changes in medications 05/24/2018 Appointment: Mimi Espinosa WPtel: [phone] [phone] [place] (15 min) Moderate 05/24/2018 Patient Education: Patient Medication Summary Completed 05/24/2018 Appointment: Injection 05/20/2018 Patient Education: Patient Medication Summary Completed 05/20/2018 Visit Plan: Sciatica- pt to continue with aleve twice daily and cyclobenzaprine x 1 week. Pt is to call if the symptoms do not improve or if they worsen. [facility]. 04/06/2018 Appointment: Carleen Anaya WPtel: [phone] [facility] [place] (15 min) Moderate 04/06/2018 Patient Education: [...] do not improve or if they worsen. [id number] - andrew 03/23/2018 Appointment: Carleen Anaya WPtel: [phone] [facility] [place] (15 min) Moderate 03/23/2018 Patient Education: Patient [...] injection. 03/12/2018 Appointment: Wendi Uriostegui WPtel: [phone] [facility] (30 min) Complex 03/12/2018 Patient Education: [...] with myrbetric 03/02/2018 Appointment: Carleen Anaya WPtel: [facility] (15 min) Moderate 03/02/2018 Patient Education: Patient Medication Summary Completed 03/02/2018 Appointment: (10 min) Simple 02/09/2018 Visit Plan: Cellulitis - start oral antibiotics as directed, return to clinic as directed, call for acute change in symptoms, worsening redness, warmth, discharge. 02/08/2018 Appointment: Mimi Espinosa WPtel: [phone] [phone] (15 min) Moderate 02/08/2018 Patient Education: [...] 50mg daily. 12/03/2017 Appointment: Carleen Anaya WPtel: [facility] (15 min) Moderate 12/03/2017 Patient Education: [...] allergy spray. 10/27/2017 Appointment: Wendi Uriostegui WPtel: [facility] (15 min) Moderate 10/27/2017 Patient Education: Patient Medication Summary Completed 10/27/2017 Visit Plan: Pneumonia - Pt has been diagnosed with pneumonia by physical exam. A chest xray has been ordered as have antibiotics. The pt is aware of the diagnosis and the need for acute treatment of this illness. 10/12/2017 Appointment: Wendi Uriostegui WPtel: [facility] (15 min) Moderate 10/12/2017 Patient Education: Patient [...] today. 10/06/2017 Appointment: Carleen Anaya WPtel: [phone] [facility] (15 min) Moderate 10/06/2017 Patient Education: [...] prn. 08/05/2017 Appointment: Carleen Anaya WPtel: [phone] [facility] [place] (15 min) Moderate 08/05/2017 Patient Education: Patient Medication Summary Completed 08/05/2017 [phone] [place] (15 min) Moderate 07/14/2017 Visit Plan: [...] voltaren gel. 07/06/2017 Appointment: Car[facility] Anaya [facility]Ptel[facility] (15 min) Moderate 07/06/2017 Patient Education: Patient [...] shot today 06/18/2017 Appointment: Carleen Anaya WPtel: [facility] (15 min) Moderate 06/18/2017 Patient Education: Patient Medication Summary Completed 06/18/2017 Appointment: Nurse Visit 05/12/2017 Care Plan: X-RAY EXAM OF SHOULDER LOINC : 65514-4 Pending 05/12/2017 Visit Plan: Weakness, fatigue, malaise - Discussed with Dr. Anaya - pt sent for IV fluids, will check labs and UA - will treat as indicated - pt is to keep her appointment with her underground repairer for her ECHO and Carotid US. Pt is to follow up with her oncologist. Right shoulder pain after fall - will send for X-ray - The pt is to use prn antiinflammatories to manage acute pain. The patient is to call the office if the pain is worsening or does not improve. 05/11/2017 Appointment: Wendi Uriostegui WPtel: [facility] [place] (30 min) Complex 05/11/2017 Patient [...] of plan. 04/27/2017 Appointment: [facility] [phone] [id number] (15 min) Moderate 04/27/2017 Patient Education: [...] heart beat - recommended evaluation by her Digital Design Engineer - Dr. Butler - I attempted a phone call to the office of Dr. Butler, I had to leave a message on the answering machine. If i don't hear back from Dr. Butler's office, we will need to do a Holter monitor on patient. 04/08/2017 [phone] [place] (15 min) Moderate 04/08/2017 Patient Education: Patient Medication Summary Completed 04/08/2017 Care Plan: Referral Order SNOMED-CT : [id number] Pending 04/08/2017 Visit Plan: UTI - pt [...] injection. 03/03/2017 Appointment: Wendi Uriostegui WPtel: [phone] [facility] (30 min) Complex 03/03/2017 Patient Education: Patient [...] control. 01/05/2017 Appointment: Carleen Anaya WPtel: [phone] [facility] (15 min) Moderate 01/05/2017 Patient Education: Patient Medication Summary Completed 01/05/2017 Visit Plan: Neck Pain- pt to start with aspercreme or biofreeze to neck three times daily and start neck exercises daily. Will send RX - The patient is to call the office if the pain is worsening or does not improve. 12/19/2016 Appointment: Wendi Uriostegui WPtel: [phone] [facility] (30 min) Complex 12/19/2016 Patient Education: [...] 11/13/2016 Appointment: Carleen Anaya WPtel: [phone] [facility] (15 min) Moderate 11/13/2016 Patient Education: Patient Medication Summary Completed 11/13/2016 Visit Plan: Insomnia -extended release melatonin - you can take up to 10mg of melatonin sleepy time tea - - use warm milk in the tea. Right shoulder - pt to continue with therapy, anti-inflammatory 10/16/2016 Appointment: Carleen Anaya WPtel: [facility] (15 min) Moderate 10/16/2016 Patient Education: [...] with pt. 10/06/2016 Appointment: Carleen Anaya WPtel: [address] [place], [place] [id number] (15 min) Moderate 10/06/2016 Patient Education: Patient Medication Summary Completed 10/06/2016 Care Plan: X-RAY EXAM OF SHOULDER LOINC : 75882-7 Pending 10/06/2016 Appointment: Carleen Anaya WPtel: [facility] (30 min) Complex 10/01/2016 Referral: [facility] WPtel: [phone] Patient informed. Completed 07/08/2016 Visit Plan: [...] discussed therapy. 07/02/2016 Appointment: Carleen Anaya WPtel: [facility] (15 min) Moderate 07/02/2016 Patient Education: Patient Medication Summary Completed 07/02/2016 Care Plan: Referral Order SNOMED-CT : [id number] Pending 07/02/2016 Visit Plan: Hypertension - well [...] planning on getting a flu shot at [facility] and she is due for another pneumovax- last pneumovax was in 2008 - so she can have pneumovax now and the prevnar in 2017 05/21/2016 Appointment: Carleen Anaya WPtel: [facility] (15 min) Moderate 05/21/2016 Patient Education: Patient Medication Summary Completed 05/21/2016 Referral: Medardo Del Real [facility] Referral Completed 05/12/2016 Visit Plan: Esophageal [...] times daily 05/07/2016 Appointment: Carleen Anaya WPtel: [facility] [address] (15 min) Moderate 05/07/2016 Patient Education: Patient Medication Summary Completed 05/07/2016 Appointment: Mimi Espinosa WPtel: [facility] [address] (30 min) Complex 05/01/2016 Visit Plan: [...] Kenalog injection today in the office Sore ozvgir-jrjcsllga-mhbkl dexilant-refer to Dr Del Real for evaluation 04/28/2016 Appointment: Mimi Espinosa WPtel: [facility] [address] (30 min) Complex 04/28/2016 Patient Education: Patient [...] medication switched. 04/07/2016 Appointment: Wendi Uriostegui WPtel: [facility] [address] (30 min) Complex 04/07/2016 Patient Education: [...] atigue-check labs including UA-culture if positive Urge wvksgylsfedd-adhvwjlhl-zvbgb UA with C&S 04/03/2016 Appointment: Mimi Espinosa WPtel: [facility] [place] [address] (30 min) Complex 04/03/2016 Patient Education: Patient Medication Summary Completed 04/03/2016 Visit Plan: Hypertension - well controlled - continue with current medications, continue with no added salt diet. Pt has been encouraged to exercise daily. The pt has been advised to call the office if there are any acute concerns about change in blood pressure readings at home. Tugovlpgf-uvjetylu-xzmvaqmq MRI brain Right ankle wsgh-vbizrwm-qnul right ankle- plan to refer to physical therapy if appropriate 01/31/2016 Appointment: Mimi Espinosa WPtel: [address] [place], [place] [id number] [place] [address] (30 min) Complex 01/31/2016 Patient Education: Patient [...] to medications. 07/31/2015 Appointment: Carleen Anaya WPtel[facility] ([facility] min) Mod[facility] 07/31/2015 Patient Education: Patient Medication Summary Completed 07/31/2015 Patient Education: Hypertension Completed 07/31/2015 Care Plan: Referral Order SNOMED-CT : [id number] Ordered 07/31/2015 Visit Plan: Hypertension - uncontrolled [...] on Nortryptyline 07/03/2015 Appointment: Héctor Carleen WPtel: [facility] (15 min) Moderate 07/03/2015 Patient Education: [...] 01/11/2015 Referral: [facility] WPtel: [phone] [place] [id number] Referral Appointment Requested Referral: External, Ordering Provider Referral Appointment Requested Referral: External, Ordering Provider Referral Relationship Referral: Nasima [facility] Referral Appointment Requested Instructions Comment . UTI - pt with positive urinalysis - culture sent if appropriate. Antibiotic electronically prescribed to pt's pharmacy of choice. Pt to call if symptoms do not improve. . Pneumonia - Pt has been diagnosed with pneumonia by physical exam. A chest xray has been ordered as have antibiotics. The pt is aware of the diagnosis and the need for acute treatment of this illness. cefdinir rx to pharmacy - prednisone 40mg daily x 3 days Right shoulder pain - rx for xray sent with pt. DEXILANT 60MG DAILY . Allergies - chronic [...] Kenalog injection today in the office Sore bsgpqw-pwiiyfdiq-pznec dexilant-refer to Dr Del Real for evaluation add z-pack, continue cefdinir - take a [...] Fatigue-check labs including UA-culture if positive Urge trseypxqtqev-pneqgiave-lygdn UA with C&S repeat INR in 2 weeks repeat a [...] change in blood pressure readings at home. Rggwuwoaa-unrbsefz-gxhglits MRI brain Right ankle gwmt-fngtudv-yimr right ankle-plan to refer to physical therapy if appropriate . Low back pain- The pt is [...] occurs at the site of injection. . Cellulitis - start oral antibiotics as [...] heart beat - recommended evaluation by her Digital Design Engineer - Dr. Butler - I attempted a [...] planning on getting a flu shot at [facility] and she is due for another [...] - sample of myrbetriq 50mg daily. . Hypothyroidism - pt with chronic hypothyroidism, [...] Monitor symptoms - continue with myrbetric . Hypertension - well controlled - continue [...] due to thyroid - check labs today. UA keflex . Sinusitis - Pt has [...] pt to continue with therapy, anti-inflammatory . Hypothyroidism - pt with chronic hypothyroidism, [...] lasix daily x 3 days and prn. Discuss with Dr. Bowman to switch warfarin [...] feet elevated at night to reduce swelling. CHECK LABS AND UA . Edema - pt has been advised to elevate legs to prevent dependent edema, compression has been recommended to help to naturally decrease peripheral edema. Diuretic use has been discussed and pt has been instructed in appropriate use of such medication as necessary to further attempt to reduce peripheral edema. Weakness-fatigue- check labs Dysuria- check UA ELD-budulptgih-bc changes in medications . Hypertension - uncontrolled - the patient's [...] response to medications. . Sciatica- pt to continue with aleve twice daily and cyclobenzaprine x 1 week. Pt is to call if the symptoms do not improve or if they worsen. [facility]. . Neck Pain- pt to start [...] culture back, medication switched. . Hypertension - well controlled - continue [...] is to keep her appointment with her underground repairer for her ECHO and Carotid US. Pt [...] carafate 1 gram four times daily . Sciatica- pt to start on aleve twice daily and cyclobenzaprine x 1 week. Pt is to call if the symptoms do not improve or if they worsen. [id number] - andrew . Hypertension - uncontrolled - the patient's [...]
--- OUTSIDE RECORDS SUMMARY | 2019-01-01 13:06 | XMS REPORT | CCD ---
Author Author [facility] Organization [facility] Address [address] [place] [address] Phone Care Team Providers Care Price Accuracy Supervisor Name Role Phone PP Unavailable CCM Unavailable Summary Purpose Interface Exchange Insurance Providers Payer name Policy type / Coverage type Covered democrat ID Effective Begin Date Effective End Date WPS Medicare Part B Medicare Part B [id number] Unknown Unknown [facility] Medicare Part B [id number] Unknown Unknown Family history Father Diagnosis Age At Onset Cancer Unknown Arthritis Unknown Mother Diagnosis Age At Onset Breast cancer Unknown Arthritis Unknown Social History Social History Element Codes Description Effective Dates Marital status Unknown 01/11/2015 Number of children Unknown 3 01/11/2015 Employment Unknown Retired 01/11/[address]: 2314467 Quit over 10 years ago 1950 01/11/[address]: 305789118 Never drinks alcohol 01/11/2015 Allergies, Adverse Reactions, Alerts Substance Reaction Codes Entered Date Inactivated Date Status * OTHER REACTION - SEE ANSWER BOX vancogein red Unknown 01/11/2015 No Inactive Date Active CODEINE RxNorm: 2670 01/11/2015 No Inactive Date Active demerol RxNorm: 860512 08/30/2015 No Inactive Date Active hydrocodone Unknown 01/11/2015 No Inactive Date Active MORPHINE AND RELATED Unknown 01/11/2015 No Inactive Date Active Past Medical History Illness Codes Condition Status Onset Date Resolved Date Lumbago with sciatica, right side ICD-9: 724.3 [...] ICD-9: 401.1 ICD-10: I10 Active 11/13/2016 Unknown Urge incontinence ICD-9: 788.31 ICD-10: N39.41 [...] ICD-9: 704.00 ICD-10: L65.9 Active 10/06/2017 Unknown Localized edema ICD-9: 782.3 ICD-10: R60.0 Active 08/05/2017 Unknown Other fecal abnormalities ICD-9: 787.7 ICD-10: R19.5 Active 07/06/2017 Unknown Diarrhea, unspecified ICD- 9: 787.91 ICD-10: R19.7 Active 07/03/2017 Unknown Encounter for immunization ICD-9: V03.82 ICD-10: Z23 Active 06/18/2017 Unknown Encounter for immunization ICD-9: V04.81 ICD-10: Z23 Active 07/02/2015 Unknown [employer] (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 of anticoagulants ICD-9: V58.61 ICD-10: Z79.01 Active 04/06/2016 Unknown Other fatigue ICD-9: 780.79 ICD-10: R53.83 [...] ICD-9: 426.6 ICD-10: I45.5 Active 04/08/2017 Unknown Dysuria ICD-9: 788.1 ICD-10: R30.0 Active 2017 Unknown Vascular dementia without behavioral disturbance ICD-9: [...] Problems Condition Codes Effective Dates Condition Status Lumbago with sciatica, right side ICD-9: 724.3 ICD-10: M54.41 03/23/2018 Active Sciatica, right side ICD- 9: 724.3 ICD-10: M54.31 03/23/2018 Active Sciatica Unknown 03/23/2018 Active Low back pain ICD-9: 724.2 ICD-10: M54.5 03/03/2017 Active Sacroiliitis, not elsewhere classified ICD-9: 720.2 ICD-10: M46.1 03/03/2017 Active Atrophy of thyroid (acquired) ICD-9: 244.8 ICD-10: E03.4 01/05/2017 Active Essential (primary) hypertension ICD-9: 401.1 ICD-10: I10 11/13/2016 Active Urge incontinence ICD-9: 788.31 ICD-10: N39.41 [...] unspecified ICD-9: 704.00 ICD-10: L65.9 10/06/2017 Active Localized edema ICD-9: 782.3 ICD-10: R60.0 08/05/2017 Active Other fecal abnormalities ICD-9: 787.7 ICD-10: R19.5 07/06/2017 Active Diarrhea, unspecified ICD- 9: 787.91 ICD-10: R19.7 07/03/2017 Active Encounter for immunization ICD-9: V03.82 ICD-10: Z23 06/18/2017 Active Encounter for immunization ICD-9: V04.81 ICD-10: Z23 07/02/2015 Active [facility] (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 of anticoagulants ICD-9: V58.61 ICD-10: Z79.01 04/06/2016 Active Other fatigue ICD-9: 780.79 ICD-10: R53.83 [...] block ICD-9: 426.6 ICD-10: I45.5 04/08/2017 Active Dysuria ICD-9: 788.1 ICD-10: R30.0 2017 Active Vascular dementia without behavioral disturbance ICD-9: [...] Fill Instructions Synthroid 175 mcg tablet RxNorm: 035527 TAKE 1 TABLET BY MOUTH ONCE DAILY 04/06/2018 No Stop Date Active cyclobenzaprine 5 mg tablet RxNorm: 717356 1/2 Tablet(s) PO TID 04/06/2018 04/15/2018 Active Synthroid 200 mcg tablet RxNorm: 821550 1 Tablet(s) PO TIW Thu Sun 04/05/2018 08/02/2018 Active brand name only- Alternate with 175mcg dose schedule Synthroid 175 mcg tablet RxNorm: 998833 1 Tablet(s) PO 4 times a week Thu04/05/2018 09/01/2018 Active alternate with 175mcg order cyclobenzaprine 5 mg tablet RxNorm: 115799 1/2 Tablet(s) PO TID 03/23/2018 04/01/2018 Inactive tramadol 50 mg tablet RxNorm: 198871 1 Tablet(s) PO TID as needed 03/17/2018 No Stop Date Active Kenalog 40 mg/mL suspension for injection RxNorm: 8959820 2 Milliliter(s) Inj 03/12/2018 03/12/2018 Inactive prednisone 20 mg tablet RxNorm: 482475 2 Tablet(s) PO daily 03/11/2018 03/10/2018 Inactive prednisone 20 mg tablet RxNorm: 428968 2 Tablet(s) PO daily 03/11/2018 03/15/2018 Inactive losartan 25 mg tablet RxNorm: 848157 TAKE ONE TABLET BY MOUTH ONCE DAILY 02/16/2018 No Stop Date Active doxycycline hyclate 100 mg tablet RxNorm: 7876686 1 Tablet(s) PO BID 02/08/2018 02/14/2018 Inactive ceftriaxone 500 mg solution for injection RxNorm: 4456147 Inj 02/08/2018 02/08/2018 Inactive dapsone 25 mg tablet RxNorm: 230658 2 Tablet(s) PO daily 02/08/2018 02/12/2018 Inactive metoprolol succinate ER 100 mg tablet,extended release 24 hr RxNorm: 502932 TAKE ONE TABLET BY MOUTH ONCE DAILY 01/05/2018 No Stop Date Active Synthroid 175 mcg tablet RxNorm: 645524 1 Tablet(s) PO daily 01/01/2018 03/31/2018 Inactive Synthroid 175 mcg tablet RxNorm: 458184 1 Tablet(s) PO daily 01/01/2018 12/31/2017 Inactive Myrbetriq 50 mg tablet,extended release RxNorm: 4205495 1 Tablet(s) PO daily 12/03/2017 01/01/2018 Inactive Zithromax Z-Oliver 250 mg tablet RxNorm: 121458 1 Tablet(s) PO UD 10/12/2017 10/16/2017 Inactive Tessalon Perles 100 mg capsule RxNorm: 861133 2 Capsule(s) PO TID as needed 10/12/2017 10/16/2017 Inactive prednisone 20 mg tablet RxNorm: 432005 2 Tablet(s) PO daily 10/12/2017 10/16/2017 Inactive cefdinir 300 mg capsule RxNorm: 918836 1 Capsule(s) PO BID 10/08/2017 10/07/2017 Inactive Synthroid 150 mcg tablet RxNorm: 617965 1 Tablet(s) PO daily in morning, except 1/2 Tablet PO Thu, Sat, take 30 minutes before meal 10/08/2017 04/04/2018 Inactive brand name only cefdinir 300 mg capsule RxNorm: 369726 1 Capsule(s) PO BID 10/08/2017 10/14/2017 Inactive Synthroid 150 mcg tablet RxNorm: 848064 1 Tablet(s) PO daily in morning, take 30 minutes before meal 10/06/2017 10/07/2017 Inactive brand name only cefdinir 300 mg capsule RxNorm: 391018 1 Capsule(s) PO BID 08/24/2017 08/30/2017 Inactive Zithromax Z-Oliver 250 mg tablet RxNorm: 315167 1 Tablet(s) PO UD 08/20/2017 08/19/2017 Inactive Zithromax Z-Oliver 250 mg tablet RxNorm: 655941 1 Tablet(s) PO UD 08/20/2017 08/24/2017 Inactive Coumadin 3 mg tablet RxNorm: 381722 1 Tablet(s) PO Thursday, , , and Thu- Managed by Dr. Bowman -Managed by Dr. Bowman 08/05/2017 No Stop Date Active Synthroid 150 mcg tablet RxNorm: 852151 1 Tablet(s) PO daily in morning, take 30 minutes before meal 08/05/2017 08/04/2017 Inactive Synthroid 150 mcg tablet RxNorm: 570302 1 Tablet(s) PO daily in morning, take 30 minutes before meal 08/05/2017 10/05/2017 Inactive pantoprazole 40 mg tablet,delayed release RxNorm: 155431 1 Tablet(s) PO BID 07/08/2017 07/02/2018 Active pantoprazole 40 mg tablet,delayed release RxNorm: 002127 1 Tablet(s) PO BID 07/08/2017 07/07/2017 Inactive metoprolol succinate ER 100 mg tablet,extended release 24 hr RxNorm: 200668 TAKE ONE TABLET BY MOUTH ONCE DAILY 07/08/2017 01/04/2018 Inactive Coumadin 3 mg tablet RxNorm: 976864 1 Tablet(s) PO QPM -Managed by Dr. Bowman 07/06/2017 08/04/2017 Inactive Coumadin 3 mg tablet RxNorm: 326389 1 Tablet(s) PO QPM at 6:00pm Managed by Dr Bowman 1/2 pill on thursday and thursday, full pill other days 06/18/2017 07/05/2017 Inactive Voltaren 1 % topical gel RxNorm: 383580 2 TOP QID 06/18/2017 10/15/2017 Inactive losartan 25 mg tablet RxNorm: 738577 1 Tablet(s) PO daily TAKE ONE TABLET BY MOUTH ONCE DAILY 05/08/2017 11/03/2017 Inactive Micro-K 10 10 mEq capsule,extended release RxNorm: 962981 1 Capsule(s) PO daily 05/08/2017 12/02/2017 Inactive Synthroid 137 mcg tablet RxNorm: 631336 1 Tablet(s) PO QAM 05/08/2017 08/04/2017 Inactive Dose increased 04/14/17 pravastatin 10 mg tablet RxNorm: 388137 1 Tablet(s) PO daily TAKE ONE TABLET BY MOUTH ONCE DAILY 05/08/2017 12/02/2017 Inactive Namenda 10 mg tablet RxNorm: 419860 TAKE ONE TABLET BY MOUTH TWICE DAILY 05/07/2017 12/02/2017 Inactive Keflex 500 mg capsule RxNorm: 700473 1 Capsule(s) PO TID 04/27/2017 05/03/2017 Inactive Synthroid 137 mcg tablet RxNorm: 844793 1 Tablet(s) PO QAM 04/14/2017 04/13/2017 Inactive Vitamin D2 50,000 unit capsule RxNorm: 005934 1 Capsule(s) PO QW 04/14/2017 12/02/2017 Inactive Synthroid 137 mcg tablet RxNorm: 040879 1 Tablet(s) PO QAM 04/14/2017 05/07/2017 Inactive losartan 25 mg tablet RxNorm: 943352 TAKE ONE TABLET BY MOUTH ONCE DAILY 03/23/2017 05/07/2017 Inactive Synthroid 125 mcg tablet RxNorm: 719541 TAKE ONE TABLET BY MOUTH ONCE DAILY 03/12/2017 04/12/2017 Inactive ciprofloxacin 500 mg tablet RxNorm: 542160 1 Tablet(s) PO BID 2017 03/13/2017 Inactive prednisone 20 mg tablet RxNorm: 944801 2 Tablet(s) PO daily 03/03/2017 03/07/2017 Inactive tramadol 50 mg tablet RxNorm: 950414 1/2 Tablet(s) PO TID as needed 03/03/2017 12/02/2017 Inactive pravastatin 10 mg tablet RxNorm: 348505 TAKE ONE TABLET BY MOUTH ONCE DAILY 01/19/2017 05/07/2017 Inactive nortriptyline 10 mg capsule RxNorm: 080527 TAKE ONE CAPSULE BY MOUTH ONCE DAILY IN THE EVENING 01/14/2017 12/02/2017 Inactive Voltaren 1 % topical gel RxNorm: 117602 TOP QID 12/22/2016 02/19/2017 Inactive Voltaren 1 % topical gel RxNorm: 174743 TOP QID 12/22/2016 12/21/2016 Inactive prednisone 20 mg tablet RxNorm: 730067 2 Tablet(s) PO daily 12/19/2016 12/23/2016 Inactive cyclobenzaprine 5 mg tablet RxNorm: 751548 1/2 Tablet(s) PO BID as needed 12/19/2016 12/23/2016 Inactive Flector 1.3 % transdermal 12 hour patch RxNorm: 973279 1 Patch TOP every 12 hours as needed 12/19/2016 12/02/2017 Inactive losartan 25 mg tablet RxNorm: 714889 1 Tablet(s) PO daily TAKE ONE TABLET BY MOUTH ONCE DAILY 11/13/2016 03/22/2017 Inactive Namenda 10 mg tablet RxNorm: 777069 TAKE ONE TABLET BY MOUTH TWICE DAILY 10/28/2016 04/25/2017 Inactive nortriptyline 10 mg capsule RxNorm: 390089 TAKE ONE CAPSULE BY MOUTH ONCE DAILY IN THE EVENING 10/13/2016 01/10/2017 Inactive ceftriaxone 500 mg solution for injection RxNorm: 4429138 Inj 10/06/2016 10/06/2016 Inactive cefdinir 300 mg capsule RxNorm: 060894 1 Capsule(s) PO BID 10/06/2016 10/12/2016 Inactive prednisone 20 mg tablet RxNorm: 642506 2 Tablet(s) PO daily 10/06/2016 10/08/2016 Inactive ProAir RespiClick 90 mcg/actuation breath activated RxNorm: 8736177 2 INH TID x 3 days then one inhale tid x 3 days then prn shortness of breath 10/06/2016 11/04/2016 Inactive Kenalog 40 mg/mL suspension for injection RxNorm: 9908053 1 Milliliter(s) Inj 10/06/2016 10/06/2016 Inactive Myrbetriq 50 mg tablet,extended release RxNorm: 5693769 1 Tablet(s) PO daily 09/11/2016 11/12/2016 Inactive Namenda 10 mg tablet RxNorm: 154922 TAKE ONE TABLET BY MOUTH TWICE DAILY 07/25/2016 10/22/2016 Inactive hydrochlorothiazide 25 mg tablet RxNorm: 816051 1 Tablet(s) PO daily 07/25/2016 12/02/2017 Inactive Synthroid 125 mcg tablet RxNorm: 971234 TAKE ONE TABLET BY MOUTH ONCE DAILY 07/14/2016 03/10/2017 Inactive losartan 25 mg tablet RxNorm: 478399 TAKE ONE TABLET BY MOUTH ONCE DAILY 07/07/2016 11/12/2016 Inactive metoprolol succinate ER 100 mg tablet,extended release 24 hr RxNorm: 809232 1 Tablet(s) PO daily 06/16/2016 06/10/2017 Inactive nortriptyline 10 mg capsule RxNorm: 907227 Capsule(s) TAKE ONE CAPSULE BY MOUTH ONCE DAILY IN THE EVENING 06/09/2016 10/06/2016 Inactive Myrbetriq 50 mg tablet,extended release RxNorm: 3822646 1 Tablet(s) PO daily 05/21/2016 09/10/2016 Inactive doxycycline hyclate 100 mg tablet RxNorm: 757178 1 Tablet(s) PO BID 05/07/2016 05/13/2016 Inactive Carafate 100 mg/mL oral suspension RxNorm: 398003 10 Milliliter(s) PO QID 05/07/2016 12/02/2017 Inactive Kenalog 40 mg/mL suspension for injection RxNorm: 0738127 Milliliter(s) Inj 04/28/2016 04/28/2016 Inactive losartan 25 mg tablet RxNorm: 141936 TAKE ONE TABLET BY MOUTH ONCE DAILY 04/08/2016 07/06/2016 Inactive ciprofloxacin 500 mg tablet RxNorm: 586757 1 Tablet(s) PO BID 04/07/2016 04/13/2016 Inactive cyclobenzaprine 5 mg tablet RxNorm: 674638 1 Tablet(s) PO TID 04/07/2016 04/16/2016 Inactive Keflex 500 mg capsule RxNorm: 862945 1 Capsule(s) PO TID 04/03/2016 04/02/2016 Inactive Keflex 500 mg capsule RxNorm: 988779 1 Capsule(s) PO TID 04/03/2016 04/09/2016 Inactive losartan 25 mg tablet RxNorm: 668091 TAKE ONE TABLET BY MOUTH ONCE DAILY 03/06/2016 04/07/2016 Inactive nortriptyline 10 mg capsule RxNorm: 745659 TAKE ONE CAPSULE BY MOUTH ONCE DAILY IN THE EVENING 03/06/2016 06/03/2016 Inactive pravastatin 10 mg tablet RxNorm: 243722 TAKE ONE TABLET BY MOUTH ONCE DAILY 02/04/2016 01/18/2017 Inactive warfarin 4 mg tablet RxNorm: 012794 Tablet(s) PO q d except 5mg on tue 01/31/2016 06/17/2017 Inactive Myrbetriq 50 mg tablet,extended release RxNorm: 1776181 1 Tablet(s) PO daily 01/17/2016 05/15/2016 Inactive Namenda 10 mg tablet RxNorm: 401801 1 Tablet(s) PO BID 01/01/2016 06/28/2016 Inactive Myrbetriq 50 mg tablet,extended release RxNorm: 9003601 1 Tablet(s) PO daily 12/20/2015 12/20/2015 Inactive Synthroid 125 mcg tablet RxNorm: 488150 1 Tablet(s) PO daily 11/14/2015 07/10/2016 Inactive nortriptyline 10 mg capsule RxNorm: 577363 TAKE ONE CAPSULE BY MOUTH ONCE DAILY IN THE EVENING 11/05/2015 03/03/2016 Inactive Myrbetriq 50 mg tablet,extended release RxNorm: 3453793 1 Tablet(s) PO daily 10/01/2015 12/19/2015 Inactive Namenda 10 mg tablet RxNorm: 708245 1 Tablet(s) PO BID 08/30/2015 12/31/2015 Inactive Vesicare 10 mg tablet RxNorm: 688160 1 Tablet(s) PO daily 08/30/2015 09/30/2015 Inactive warfarin 4 mg tablet RxNorm: 983831 Tablet(s) PO 08/30/2015 01/30/2016 Inactive Synthroid 125 mcg tablet RxNorm: 336983 1 Tablet(s) PO daily 08/02/2015 11/13/2015 Inactive Synthroid 125 mcg tablet RxNorm: 792607 Tablet(s) PO 08/01/2015 08/01/2015 Inactive losartan 25 mg tablet RxNorm: 085105 1 Tablet(s) PO daily 07/31/2015 02/25/2016 Inactive pravastatin 10 mg tablet RxNorm: 642360 1 Tablet(s) PO daily 07/23/2015 01/18/2016 Inactive hydrochlorothiazide 25 mg tablet RxNorm: 910987 1 Tablet(s) PO daily 07/19/2015 07/12/2016 Inactive nortriptyline 10 mg capsule RxNorm: 757716 1 Capsule(s) PO QPM 07/03/2015 10/30/2015 Inactive metoprolol succinate ER 100 mg tablet,extended release 24 hr RxNorm: 257337 1 Tablet(s) PO daily 06/06/2015 05/30/2016 Inactive pravastatin 10 mg tablet RxNorm: 865548 1 Tablet(s) PO daily 01/22/2015 07/20/2015 Inactive aspirin 81 mg capsule,delayed release RxNorm: 916947 1 Capsule(s) PO daily 01/11/2015 02/09/2015 Inactive Fosamax 5 mg tablet RxNorm: 302834 1 Tablet(s) QW 01/11/2015 12/02/2017 Inactive oxybutynin chloride ER 10 mg tablet,extended release 24 hr RxNorm: 757620 1 Tablet(s) PO daily 01/11/2015 08/29/2015 Inactive Coumadin 4 mg tablet RxNorm: 062423 1 Tablet(s) PO daily on M,W,F No Start Date Active Vitamin D2 oral RxNorm: 4018 oral No Start Date Active Colace 100 mg capsule RxNorm: 6577247 Capsule(s) PO No Start Date Active Claritin oral RxNorm: 00219 oral No Start Date Active PreserVision AREDS 2 oral RxNorm: 4338308 oral No Start Date Active pravastatin 10 mg tablet RxNorm: 716748 1 Tablet(s) PO daily No Start Date 01/21/2015 Inactive Tylenol PM oral RxNorm: 368225 oral No Start Date 04/07/2017 Inactive Vitamin D2 50,000 unit capsule RxNorm: 415344 1 Capsule(s) PO QW No Start Date 04/13/2017 Inactive tramadol 50 mg tablet RxNorm: 257687 1 Tablet(s) PO TID as needed No Start Date 03/16/2018 Inactive Micro-K 10 10 mEq capsule,extended release RxNorm: 627228 1 Capsule(s) PO daily No Start Date 05/07/2017 Inactive Synthroid 100 mcg tablet RxNorm: 513510 Tablet(s) PO No Start Date 07/31/2015 Inactive hydrochlorothiazide 25 mg tablet RxNorm: 682875 1 Tablet(s) PO daily No Start Date 07/18/2015 Inactive warfarin 2 mg tablet RxNorm: 032034 Tablet(s) PO No Start Date 08/29/2015 Inactive metoprolol succinate ER 100 mg tablet,extended release 24 hr RxNorm: 462660 1 Tablet(s) PO daily No Start Date 06/05/2015 Inactive warfarin 3 mg tablet RxNorm: 541071 Tablet(s) PO No Start Date 08/29/2015 Inactive Coumadin 3 mg tablet RxNorm: 091781 1 Tablet(s) PO QPM at 6:00pm Managed by Dr Bowman No Start Date 06/17/2017 Inactive Medication Administered Medication Codes Instructions Start Date Status Kenalog 40 mg/mL suspension for injection RxNorm: 7612899 2Milliliter 03/12/2018 No longer Active ceftriaxone 500 mg solution for injection RxNorm: 0557733 02/08/2018 No longer Active ceftriaxone 500 mg solution for injection RxNorm: 6062227 10/06/2016 No longer Active Kenalog 40 mg/mL suspension for injection RxNorm: 5169071 1Milliliter 10/06/2016 No longer Active Kenalog 40 mg/mL suspension for injection RxNorm: 1550371 Milliliter 04/28/2016 No longer Active Immunizations Vaccine Codes Date Status Influenza CVX: 141 06/18/2017 completed Influenza CVX: 141 06/10/2016 completed Pneumococcal CVX: 133 05/29/2016 completed Influenza CVX: 141 07/03/2015 completed Assessments Condition Codes Effective Dates Sciatica, right side ICD-10: M54.31 ICD-9: 724.3 04/06/2018 Lumbago with sciatica, right side ICD-10: M54.41 ICD-9: 724.3 04/06/2018 Sacroiliitis, not elsewhere classified ICD-10: M46.1 ICD-9: 720.2 03/12/2018 Low back pain ICD-10: M54.5 ICD-9: 724.2 03/12/2018 Urge incontinence ICD-10: N39.41 ICD-9: 788.31 03/02/2018 Essential (primary) hypertension ICD-10: I10 ICD-9: 401.1 03/02/2018 Atrophy of thyroid (acquired) ICD-10: E03.4 ICD-9: 244.8 03/02/2018 Cellulitis of face ICD-10: L03.211 ICD-9: 682.0 02/08/2018 Weakness ICD-10: R53.1 ICD-9: 780.79 10/27/2017 Other allergic rhinitis ICD-10: J30.89 ICD-9: 477.8 10/27/2017 Pneumonia due to other specified bacteria ICD-10: J15.8 ICD-9: 482.81 10/12/2017 Chronic systolic (congestive) heart failure ICD-10: I50.22 ICD-9: 428.22 10/12/2017 Nonscarring hair loss, unspecified ICD-10: L65.9 ICD-9: 704.00 10/06/2017 Localized edema ICD-10: R60.0 ICD-9: 782.3 08/05/2017 Other fecal abnormalities ICD-10: R19.5 ICD-9: 787.7 07/06/2017 Diarrhea, unspecified ICD-10: R19.7 ICD-9: 787.91 07/03/2017 Other fatigue ICD-10: R53.83 ICD-9: 780.79 06/18/2017 [employer] (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 of anticoagulants ICD-10: Z79.01 ICD-9: V58.61 06/18/2017 Presence of xenogenic heart valve ICD-10: [...] heart block ICD-10: I45.5 ICD-9: 426.6 04/08/2017 Dysuria ICD-10: R30.0 ICD-9: 788.1 2017 Vascular dementia without behavioral disturbance ICD-10: F01.50 [...] For Visit Effective Dates Notes back pain 04/06/2018 back pain 03/23/2018 back [...] Observation Code Item Item Code Result Date Tsh Ord6 TSH (3rd IS) 3.19 uIU/mL 10/06/2017 Free T4 Znf378 FREE T4 1.64 ng/dL 10/06/2017 Free T4 Fhg422 FREE T4 1.03 ng/dL 08/05/2017 Tsh Ord6 [...] Ord30 C/HDL 3.7 Ratio 04/09/2017 Free T4 Hbj490 FREE T4 0.97 ng/dL 04/09/2017 Tibc Ord40 Iron 36 ug/dl 04/09/2017 Tibc Ord40 UIBC 281 ug/dL 04/09/2017 Tibc Ord40 TIBC 317 ug/dL 04/09/2017 Tibc Ord40 Fe-%Sat 11.4 % 04/09/2017 Comp Metabolic Xmw409 NA 136 mEq/L 04/09/2017 Comp Metabolic Bgh529 K 3.9 mEq/L 04/09/2017 Comp Metabolic Syh270 CL 98 mEq/L 04/09/2017 Comp Metabolic Qgq279 CO2 28.0 mEq/L 04/09/2017 Comp Metabolic Znn509 ANION GAP 14 04/09/2017 Comp Metabolic Efu323 GLUCOSE 90 mg/dL 04/09/2017 Comp Metabolic Fak500 Creat 0.6 mg/dL 04/09/2017 Comp Metabolic Pex786 eGFR 102 ml/min/1.73m2 04/09/2017 Comp Metabolic Pbb469 BUN 9 mg/dL 04/09/2017 Comp Metabolic Jya796 B/C Ratio 15.3 Ratio 04/09/2017 Comp Metabolic Gnf346 CALCIUM 8.8 mg/dL 04/09/2017 Comp Metabolic Cnu701 ALK PHOS 102 U/L 04/09/2017 Comp Metabolic Pdm036 AST(SGOT) 18 U/L 04/09/2017 Comp Metabolic Ndh644 ALT(SGPT) 14 U/L 04/09/2017 Comp Metabolic Cdh318 BILI T 0.4 mg/dL 04/09/2017 Comp Metabolic Oxg972 ALBUMIN 3.9 g/dL 04/09/2017 Comp Metabolic Hec101 TPRO 6.3 g/dL 04/09/2017 Comp Metabolic Upm090 GLOB 2.4 g/dL 04/09/2017 Comp Metabolic Pnl598 A/G Ratio 1.7 Ratio 04/09/2017 Comp Metabolic Gtr321 Osmo 270 mOsmo 04/09/2017 Vitamin D 25 Oh Vuu7728 VITAMIN D, 25 HYDROXY 34.31 ng/mL 04/09/2017 [...] 28.9 pg 04/09/2017 Cbc With Differential Ord2 [place]% 8.8 % 04/09/2017 Cbc With Differential Ord2 Eos% 1.7 % 04/09/2017 Cbc With Differential Ord2 MCHC 32.3 pg 04/09/2017 Cbc With Differential Ord2 Baso% 0.5 % 04/09/2017 Cbc With Differential Ord2 PLT 207 K/ul 04/09/2017 Cbc With Differential Ord2 Neut ABS# 5.46 K/ul 04/09/2017 Cbc With Differential Ord2 RDW 15.2 % 04/09/2017 Cbc With Differential Ord2 Lymph ABS# 1.22 K/ul 04/09/2017 Cbc With Differential Ord2 [place] ABS# 0.7 K/ul 04/09/2017 Cbc With Differential Ord2 Eos ABS# 0.1 K/ul 04/09/2017 Cbc With Differential Ord2 Baso ABS# 0.0 K/ul 04/09/2017 Urine Culture Ucult Complete >100,000 col/ml aerobic growth sent to ref lab 03/05/2017 Pt Amt4170 PT 24.2 seconds 04/14/2016 Pt Dmh1906 INR 2.3 04/14/2016 Pt Bps6295 Low Intensity - 1.5-2.0 04/14/2016 Pt Gbw2786 Mod intensity - 2.0-3.0 04/14/2016 Pt Cci6486 Hi intensity - 3.0-4.0 04/14/2016 Pt Giw8755 PT 31.3 seconds 04/10/2016 Pt Uoa5650 INR 3.3 04/10/2016 Pt Mrq8595 Low Intensity - 1.5-2.0 04/10/2016 Pt Olg8686 Mod intensity - 2.0-3.0 04/10/2016 Pt Nfm3727 Hi intensity - 3.0-4.0 04/10/2016 C RAP A SC [id number] Strep A Negative 04/10/2016 Urine Culture Ucult Complete >100,000 col/ml aerobic growth sent to ref lab 04/04/2016 Comp Metabolic Xah807 NA 136 mEq/L 04/03/2016 Comp Metabolic Pox398 K 3.9 mEq/L 04/03/2016 Comp Metabolic Clp752 CL 99 mEq/L 04/03/2016 Comp Metabolic Lwr441 CO2 32.0 mEq/L 04/03/2016 Comp Metabolic Glu542 ANION GAP 9 04/03/2016 Comp Metabolic Mcn102 GLUCOSE 88 mg/dL 04/03/2016 Comp Metabolic Wih865 Creat 0.6 mg/dL 04/03/2016 Comp Metabolic Ikg395 eGFR 93 ml/min/1.73m2 04/03/2016 Comp Metabolic Dky267 BUN 15 mg/dL 04/03/2016 Comp Metabolic Krw858 B/C Ratio 23.4 Ratio 04/03/2016 Comp Metabolic Wwl629 CALCIUM 8.7 mg/dL 04/03/2016 Comp Metabolic Gra539 ALK PHOS 100 U/L 04/03/2016 Comp Metabolic Qde283 AST(SGOT) 28 U/L 04/03/2016 Comp Metabolic Teg809 ALT(SGPT) 39 U/L 04/03/2016 Comp Metabolic Wrm716 BILI T 0.5 mg/dL 04/03/2016 Comp Metabolic Ccd543 ALBUMIN 4.1 g/dL 04/03/2016 Comp Metabolic Vgi400 TPRO 6.6 g/dL 04/03/2016 Comp Metabolic Orj334 GLOB 2.5 g/dL 04/03/2016 Comp Metabolic Ntv022 A/G Ratio 1.7 Ratio 04/03/2016 Comp Metabolic Bbk379 Osmo 272 mOsmo 04/03/2016 Cbc With Differential [...] 15.8 % 04/03/2016 Cbc With Differential Ord2 [place]% 11.3 % 04/03/2016 Cbc With Differential Ord2 [...] 1.15 K/ul 04/03/2016 Cbc With Differential Ord2 [place] ABS# 0.8 K/ul 04/03/2016 Cbc With Differential Ord2 Eos ABS# 0.2 K/ul 04/03/2016 Cbc With Differential Ord2 Baso ABS# 0.0 K/ul 04/03/2016 Tsh Ord6 hTSH II 3.06 uIU/mL 04/03/2016 Free T4 Tpt110 FREE T4 0.99 ng/dL 04/03/2016 Free T4 Bmu735 FREE T4 0.81 ng/dL 07/31/2015 Comp Metabolic Qpe076 NA 136 mEq/L 07/31/2015 Comp Metabolic Kec928 K 3.8 mEq/L 07/31/2015 Comp Metabolic Djb607 CL 97 mEq/L 07/31/2015 Comp Metabolic Ikt695 CO2 29.0 mEq/L 07/31/2015 Comp Metabolic Uws127 ANION GAP 14 07/31/2015 Comp Metabolic Hrt429 GLUCOSE 90 mg/dL 07/31/2015 Comp Metabolic Nbk092 Creat 0.7 mg/dL 07/31/2015 Comp Metabolic Mbq321 eGFR 80 ml/min/1.73m2 07/31/2015 Comp Metabolic Iid748 BUN 8 mg/dL 07/31/2015 Comp Metabolic Vjt641 B/C Ratio 11.0 Ratio 07/31/2015 Comp Metabolic Shu404 CALCIUM 8.9 mg/dL 07/31/2015 Comp Metabolic Igt094 ALK PHOS 102 U/L 07/31/2015 Comp Metabolic Rcy483 AST(SGOT) 22 U/L 07/31/2015 Comp Metabolic Ooh838 ALT(SGPT) 14 U/L 07/31/2015 Comp Metabolic Xvb817 BILI T 0.5 mg/dL 07/31/2015 Comp Metabolic Rkt351 ALBUMIN 4.4 g/dL 07/31/2015 Comp Metabolic Vpd265 TPRO 6.7 g/dL 07/31/2015 Comp Metabolic Pdb868 GLOB 2.3 g/dL 07/31/2015 Comp Metabolic Jzm469 A/G Ratio 1.9 Ratio 07/31/2015 Comp Metabolic Qph986 Osmo 270 mOsmo 07/31/2015 Tsh Ord6 hTSH [...] Lipid Ord30 C/HDL 4.8 Ratio 07/31/2015 Pt Dgl8363 PT 31.9 seconds 07/03/2015 Pt Ftz2012 INR 3.2 07/03/2015 Pt Azu0837 Low Intensity - 1.5-2.0 07/03/2015 Pt Ifg7468 Mod intensity - 2.0-3.0 07/03/2015 Pt Hkm2061 Hi intensity - 3.0-4.0 07/03/2015 Review of Systems System Result Effective Dates Constitutional No recent illness 04/06/2018 Constitutional No [...] dentition 10/12/2017 None Full Exam - General 1995 [...] clubbing 10/16/2016 None Full Exam - General 1995 Cardiovascular auscultation of heart Overall: regular rate [...] Procedures Procedure Codes Date DRAIN/INJECT JOINT/BURSA CPT-4: 22603 03/23/2018 TRIAMCINOLONE ACET INJ NOS CPT-4: J3301 03/23/2018 DRAIN/INJECT JOINT/BURSA CPT-4: 18722 03/12/2018 TRIAMCINOLONE ACET INJ NOS CPT-4: J3301 03/12/2018 ROCEPHIN, PER 250 MG CPT- 4: J0696 02/08/2018 ADMIN INFLUENZA VIRUS VAC CPT-4: G0008 06/18/2017 FLU VACC PRSV FREE INC ANTIG CPT-4: 12373 06/18/2017 URINALYSIS NONAUTO W/O SCOPE CPT-4: 23525 04/27/2017 URINALYSIS NONAUTO W/O SCOPE CPT-4: 89732 2017 DRAIN/INJECT JOINT/BURSA CPT-4: 63725 03/03/2017 TRIAMCINOLONE ACET INJ NOS CPT-4: J3301 03/03/2017 TRIAMCINOLONE ACET INJ NOS CPT-4: J3301 10/06/2016 ROCEPHIN, PER 250 MG CPT- 4: J0696 10/06/2016 THER/PROPH/DIAG INJ SC/IM CPT-4: 03031 10/06/2016 TRIAMCINOLONE ACET INJ NOS CPT-4: J3301 04/28/2016 URINALYSIS NONAUTO W/O SCOPE CPT-4: 13802 04/03/2016 ADMIN INFLUENZA VIRUS VAC CPT-4: G0008 07/03/2015 FLU VACC PRSV FREE INC ANTIG CPT-4: 59410 07/03/2015 Vital Signs Date Vital 04/06/2018 Blood Pressure 1: 138/88 Code: 8480-6 Heart Rate 1: 86 bpm Height: SpO2: 96% Weight: 03/23/2018 Blood Pressure 1: 150/88 Code: 8480-6 Heart Rate 1: 80 bpm Height: SpO2: 96% Weight: 03/12/2018 Heart Rate 1: 90 bpm Height: Weight: 03/02/2018 Blood Pressure 1: 128/80 Code: 8480-6 BMI: 28.4 Code: 88092-1 Heart Rate 1: 83 bpm Height: 5'6" SpO2: 93% Weight: 176 lbs 02/08/2018 Blood Pressure 1: 142/80 Code: 8480-6 Heart Rate 1: 78 bpm Height: 5'6" SpO2: 94% 12/03/2017 Blood Pressure 1: 124/78 Code: 8480-6 BMI: 27.9 Code: 05035-8 Heart Rate 1: 70 bpm Height: 5'6" SpO2: 97% Weight: 173 lbs 10/27/2017 Blood Pressure 1: 126/60 Code: 8480-6 Heart Rate 1: 65 bpm Height: 5'6" SpO2: 98% Weight: 10/12/2017 Blood Pressure 1: 126/74 Code: 8480-6 BMI: 26.0 Code: 10610-2 Heart Rate 1: 80 bpm Height: 5'6" SpO2: 89% Weight: 161 lbs 10/06/2017 Blood Pressure 1: 126/70 Code: 8480-6 BMI: 27.2 Code: 83772-3 Heart Rate 1: 73 bpm Height: 5'6" SpO2: 97% Weight: 168 lbs 8 oz 08/05/2017 Blood Pressure 1: 152/78 Code: 8480-6 BMI: 27.1 Code: 66857-2 Heart Rate 1: 73 bpm Height: 5'6" SpO2: 98% Weight: 168 lbs 07/06/2017 Blood Pressure 1: 148/70 Code: 8480-6 BMI: 26.6 Code: 39028-6 Heart Rate 1: 80 bpm Height: 5'6" SpO2: 97% Weight: 165 lbs 06/18/2017 Blood Pressure 1: 132/68 Code: 8480-6 BMI: 26.8 Code: 33669-2 Heart Rate 1: 84 bpm Height: 5'6" [...] 1: 162/84 Code: 8480-6 BMI: 28.1 Code: 70983-3 Heart Rate 1: 98 bpm Height: 5'6" SpO2: 97% Weight: 174 lbs 03/03/2017 Blood Pressure 1: 154/88 Code: 8480-6 Heart Rate 1: 96 bpm Height: SpO2: 95% Weight: 01/05/2017 Blood Pressure 1: 142/78 Code: 8480-6 BMI: 28.9 Code: 72378-6 Heart Rate 1: 94 bpm Height: 5'6" SpO2: 95% Weight: 179 lbs 12/19/2016 Blood Pressure 1: 130/74 Code: 8480-6 Heart Rate 1: 91 bpm Height: 5'6" SpO2: 97% Weight: 11/13/2016 Blood Pressure 1: 152/82 Code: 8480-6 BMI: 28.4 Code: 72776-1 Heart Rate 1: 85 bpm Height: 5'6" SpO2: 96% Weight: 176 lbs 10/16/2016 Blood Pressure 1: 148/72 Code: 8480-6 BMI: 28.4 Code: 50792-7 Heart Rate 1: 90 bpm Height: 5'6" SpO2: 96% Weight: 176 lbs 10/06/2016 Blood Pressure 1: 150/80 Code: 8480-6 BMI: 28.4 Code: 76879-3 Heart Rate 1: 76 bpm Height: 5'6" SpO2: 97% Weight: 176 lbs 07/02/2016 Blood Pressure 1: 142/78 Code: 8480-6 BMI: 27.8 Code: 51604-9 Heart Rate 1: 85 bpm Height: 5'6" SpO2: 97% Weight: 172 lbs 05/21/2016 Blood Pressure 1: 166/80 Code: 8480-6 BMI: 27.9 Code: 34244-3 Heart Rate 1: 79 bpm Height: 5'6" SpO2: 98% Weight: 173 lbs 05/07/2016 Blood Pressure 1: 140/70 Code: 8480-6 BMI: 27.9 Code: 56870-1 Heart Rate 1: 82 bpm Height: 5'6" SpO2: 96% Weight: 173 lbs 04/28/2016 Blood Pressure 1: 128/86 Code: 8480-6 BMI: 27.4 Code: 71692-7 Heart Rate 1: 86 bpm Height: 5'6" SpO2: 96% Temperature: 36.1 (C) / 97.0 (F) Weight: 170 lbs 04/07/2016 Blood Pressure 1: 150/80 Code: 8480-6 Heart Rate 1: 94 bpm Height: SpO2: 95% Weight: 04/03/2016 Blood Pressure 1: 122/76 Code: 8480-6 BMI: 27.4 Code: 36534-1 Heart Rate 1: 84 bpm Height: 5'6" SpO2: 94% Weight: 170 lbs 01/31/2016 Blood Pressure 1: 124/82 Code: 8480-6 BMI: 27.8 Code: 64449-8 Heart Rate 1: 100 bpm Height: 5'6" SpO2: 97% Weight: 172 lbs 11/29/2015 Blood Pressure 1: 140/82 Code: 8480-6 Blood Pressure 1: 130/84 Code: 8480-6 BMI: 27.4 Code: 47181-8 Heart Rate 1: 97 bpm Height: 5'6" SpO2: 95% Weight: 170 lbs 10/01/2015 Blood Pressure 1: 130/80 Code: 8480-6 BMI: 27.4 Code: 06973-7 Heart Rate 1: 82 bpm Height: 5'6" SpO2: 97% Weight: 170 lbs 08/30/2015 Blood Pressure 1: 120/68 Code: 8480-6 BMI: 27.6 Code: 28661-3 Heart Rate 1: 91 bpm Height: 5'6" SpO2: 96% Weight: 171 lbs 07/31/2015 Blood Pressure 1: 180/80 Code: 8480-6 BMI: 27.4 Code: 48714-4 Heart Rate 1: 60 bpm Height: 5'6" SpO2: 94% Weight: 170 lbs 07/03/2015 Blood Pressure 1: 154/80 Code: 8480-6 BMI: 27.4 Code: 47964-0 Heart Rate 1: 98 bpm Height: 5'6" SpO2: 95% Weight: 170 lbs 04/10/2015 Blood Pressure 1: 138/72 Code: 8480-6 BMI: 27.8 Code: 51127-0 Heart Rate 1: 82 bpm Height: 5'6" SpO2: 98% Weight: 172 lbs 01/11/2015 Blood Pressure 1: 132/74 Code: 8480-6 BMI: 28.6 Code: 90738-2 Heart Rate 1: 88 bpm Height: 5'6" SpO2: 96% Weight: 177 lbs Functional Status No Functional Status data History of Present Illness Symptom Name Status Result Effective Date Notes back pain Location lumbar-sacral spine 04/06/2018 None [...] data Encounters Encounter Performer Location Codes Date ([id number]) 98114 EST. PATIENT, LEVEL III Diagnosis: Lumbago with sciatica, right side[ICD10: M54.41] Diagnosis: Sciatica, right side[ICD10: M54.31] [facility] CPT- 4: 70250 04/06/2018 ([id number]) 99196 EST. PATIENT, LEVEL III Diagnosis: Lumbago with sciatica, right side[ICD10: M54.41] Diagnosis: Sciatica, right side[ICD10: M54.31] [facility] CPT- 4: 63471 03/23/2018 11972 EST. PATIENT, LEVEL III Diagnosis: Low back pain[ICD10: M54.5] Diagnosis: Sacroiliitis, not elsewhere classified[ICD10: M46.1] [facility] CPT-4: 42168 03/12/2018 ([id number]) 36052 EST. PATIENT, LEVEL IV Diagnosis: Atrophy of thyroid (acquired)[ICD10: E03.4] Diagnosis: Essential (primary) hypertension[ICD10: I10] Diagnosis: Urge incontinence[ICD10: N39.41] Carleen Anaya MD, [facility] CPT-4: 18333 03/02/2018 ([id number]) 80671 EST. PATIENT, LEVEL III Diagnosis: Cellulitis of face[ICD10: L03.211] Mimi Anaya MD, [facility] CPT- 4: 31718 02/08/2018 ([id number]) 00937 EST. PATIENT, LEVEL IV Diagnosis: Atrophy of thyroid (acquired)[ICD10: E03.4] Diagnosis: Essential (primary) hypertension[ICD10: I10] Diagnosis: Urge incontinence[ICD10: N39.41] Carleen Anaya MD, [facility] CPT-4: 55762 12/03/2017 77883 EST. PATIENT, LEVEL IV Diagnosis: Essential (primary) hypertension[ICD10: I10] Diagnosis: Weakness[ICD10: R53.1] Diagnosis: Low back pain[ICD10: M54.5] Diagnosis: Other allergic rhinitis[ICD10: J30.89] Wendi Anaya MD, [facility] CPT- 4: 12470 10/27/2017 92180 EST. PATIENT, LEVEL IV Diagnosis: Pneumonia due to other specified bacteria[ICD10: J15.8] Diagnosis: Chronic systolic (congestive) heart failure[ICD10: I50.22] Wendi Anaya MD, [facility] CPT-4: 49931 10/12/2017 ([id number]) 88814 EST. PATIENT, LEVEL IV Diagnosis: Atrophy of thyroid (acquired)[ICD10: E03.4] Diagnosis: Nonscarring hair loss, unspecified[ICD10: L65.9] Diagnosis: Essential (primary) hypertension[ICD10: I10] Carleen Anaya MD, [facility] CPT-4: 54094 10/06/2017 ([id number]) 52442 EST. PATIENT, LEVEL IV Diagnosis: Atrophy of thyroid (acquired)[ICD10: E03.4] Diagnosis: Essential (primary) hypertension[ICD10: I10] Diagnosis: Localized edema[ICD10: R60.0] Carleen Anaya MD, [facility] CPT-4: 55551 08/05/2017 ([id number]) 26055 EST. PATIENT, LEVEL IV Diagnosis: Essential (primary) hypertension[ICD10: I10] Diagnosis: Weakness[ICD10: R53.1] Diagnosis: Other fecal abnormalities[ICD10: R19.5] Carleen Anaya MD, [facility] CPT-4: 79023 07/06/2017 ([id number]) 62133 EST. 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 PATIENT, LEVEL IV Diagnosis: Pain in right shoulder[ICD10: M25.511] Diagnosis: Weakness[ICD10: R53.1] Diagnosis: Other fatigue[ICD10: R53.83] Diagnosis: Other malaise[ICD10: R53.81] Wendi Anaya MD, [facility] CPT-4: 78535 05/11/2017 ([id number]) Miscellaneous no charge Diagnosis: Essential (primary) hypertension[ICD10: I10] Mimi Anaya MD, [facility] CPT-4: 40363 04/30/2017 ([id number]) 76736 EST. PATIENT, LEVEL III Diagnosis: Acute recurrent maxillary sinusitis[ICD10: J01.01] Diagnosis: Urinary tract infection, site not specified[ICD10: N39.0] Mimi Anaya MD, [facility] CPT-4: 01125 04/27/2017 ([id number]) 80225 EST. PATIENT, LEVEL IV Diagnosis: Atrophy of thyroid (acquired)[ICD10: E03.4] Diagnosis: Essential (primary) hypertension[ICD10: I10] Diagnosis: Iron deficiency[ICD10: E61.1] Diagnosis: Other specified heart block[ICD10: I45.5] Carleen Anaya MD, [facility] CPT-4: 40329 04/08/2017 32176 EST. PATIENT, LEVEL III Diagnosis: Low back pain[ICD10: M54.5] Diagnosis: Sacroiliitis, not elsewhere classified[ICD10: M46.1] Wendi Anaya MD, [facility] CPT-4: 59121 03/03/2017 ([id number]) 95727 EST. PATIENT, LEVEL IV Diagnosis: Essential (primary) hypertension[ICD10: I10] Diagnosis: Atrophy of thyroid (acquired)[ICD10: E03.4] Diagnosis: Vascular dementia without behavioral disturbance[ICD10: F01.50] Carleen Anaya MD, [facility] CPT-4: 71855 01/05/2017 72463 EST. PATIENT, LEVEL III Diagnosis: Cervicalgia[ICD10: M54.2] Diagnosis: Other muscle spasm[ICD10: M62.838] Wendi Anaya MD, [facility] CPT-4: 40993 12/19/2016 ([id number]) 53423 EST. PATIENT, LEVEL III Diagnosis: Essential (primary) hypertension[ICD10: I10] Diagnosis: Gastro-esophageal reflux disease without esophagitis[ICD10: K21.9] Carleen Anaya MD, [facility] CPT-4: 82011 11/13/2016 ([id number]) 78113 EST. 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 PATIENT, LEVEL IV Diagnosis: Pneumonia due to other specified bacteria[ICD10: J15.8] Diagnosis: Pain in right shoulder[ICD10: M25.511] Diagnosis: Cough[ICD10: R05] Carleen Anaya MD, [facility] CPT-4: 73631 10/06/2016 ([id number]) 09011 EST. PATIENT, LEVEL IV Diagnosis: Essential (primary) hypertension[ICD10: I10] Diagnosis: Personal history of other specified conditions[ICD10: Z87.898] Diagnosis: Unsteadiness on feet[ICD10: R26.81] Carleen Anaya MD, [facility] CPT- 4: 10306 07/02/2016 ([id number]) 16622 EST. PATIENT, LEVEL IV Diagnosis: Dysphagia, pharyngeal phase[ICD10: R13.13] Diagnosis: Urge incontinence[ICD10: N39.41] Diagnosis: Gastro-esophageal reflux disease without esophagitis[ICD10: K21.9] Carleen Anaya MD, [facility] CPT-4: 83951 05/21/2016 ([id number]) 18750 EST. PATIENT, LEVEL III Diagnosis: Gastro-esophageal reflux disease without esophagitis[ICD10: K21.9] Carleen Anaya MD [facility] CPT-4: 85033 05/07/2016 ([id number]) 87954 EST. PATIENT, LEVEL III Diagnosis: Acute laryngopharyngitis[ICD10: J06.0] Diagnosis: Dysphagia, pharyngeal phase[ICD10: R13.13] Diagnosis: Allergic rhinitis due to pollen[ICD10: J30.1] Mimi Anaya MD, [facility] CPT-4: 32362 04/28/2016 ([id number]) Miscellaneous no charge Diagnosis: Acute laryngopharyngitis[ICD10: J06.0] Wendi Anaya MD, [facility] CPT- 4: 05491 04/10/2016 87535 EST. PATIENT, LEVEL IV Diagnosis: Cervicalgia[ICD10: M54.2] Diagnosis: Acute laryngopharyngitis[ICD10: J06.0] Diagnosis: [facility] (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 of anticoagulants[ICD10: Z79.01] Diagnosis: Other cystitis without hematuria[ICD10: N30.80] Wendi Anaya MD, [facility] CPT-4: 19433 04/07/2016 ([id number]) 06311 EST. PATIENT, LEVEL IV Diagnosis: Essential (primary) hypertension[ICD10: I10] Diagnosis: Hypothyroidism, unspecified[ICD10: E03.9] Diagnosis: Other fatigue[ICD10: R53.83] Diagnosis: Urge incontinence[ICD10: N39.41] Mimi Anaya MD, [facility] CPT- 4: 41896 04/03/2016 ([id number]) 29716 EST. PATIENT, LEVEL IV Diagnosis: Essential (primary) hypertension[ICD10: I10] Diagnosis: Pain in right ankle and joints of right foot[ICD10: M25.571] Diagnosis: Dizziness and giddiness[ICD10: R42] Diagnosis: Tinnitus, bilateral[ICD10: H93.13] Mimi Anaya MD, [facility] CPT- 4: 22341 01/31/2016 ([id number]) 47272 EST. PATIENT, LEVEL IV Diagnosis: Essential (primary) hypertension[ICD10: I10] Diagnosis: Otalgia, right ear[ICD10: H92.01] Diagnosis: Allergic rhinitis due to pollen[ICD10: J30.1] Diagnosis: Hypothyroidism, unspecified[ICD10: E03.9] Mimi Anaya MD, [facility] CPT-4: 21749 11/29/2015 ([id number]) 59417 EST. PATIENT, LEVEL IV Diagnosis: Essential (primary) hypertension[ICD10: I10] Diagnosis: Urge incontinence[ICD10: N39.41] Diagnosis: Unspecified dementia without behavioral disturbance[ICD10: F03.90] Mimi Anaya MD, [facility] CPT-4: 64003 10/01/2015 ([id number]) 85436 EST. PATIENT, LEVEL IV Diagnosis: Essential (primary) hypertension[ICD10: I10] Diagnosis: Hypothyroidism, unspecified[ICD10: E03.9] Diagnosis: Unspecified dementia without behavioral disturbance[ICD10: F03.90] Diagnosis: Urge incontinence[ICD10: N39.41] Mimi Anaya MD, [facility] CPT- 4: 17296 08/30/2015 ([id number]) 20485 EST. PATIENT, LEVEL IV Diagnosis: Essential (primary) hypertension[ICD10: I10] Diagnosis: Hypothyroidism, unspecified[ICD10: E03.9] Diagnosis: Hyperlipidemia, unspecified[ICD10: E78.5] Carleen Anaya MD, [facility] CPT-4: 23695 07/31/2015 ([id number]) 17758 EST. PATIENT, LEVEL IV Diagnosis: Essential (primary) hypertension[ICD10: I10] Diagnosis: [employer] (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 of anticoagulants[ICD10: Z79.01] Diagnosis: Dizziness and giddiness[ICD10: R42] Carleen Anaya MD, [facility] CPT- 4: 31015 07/03/2015 ([id number]) 04143 EST. PATIENT, LEVEL IV Diagnosis: ESSENTIAL HYPERTENSION[ICD9: 401.9] Diagnosis: MACULAR DEGENERATION[ICD9: 362.50] Diagnosis: Peripheral vascular disease[ICD9: 443.9] Diagnosis: Neuropathy[ICD9: 355.9] Carleen Anaya MD, [facility] CPT-4: 43972 04/10/2015 ([id number]) OFFICE/OUTPATIENT VISIT NEW Diagnosis: ESSENTIAL HYPERTENSION[ICD9: 401.9] Diagnosis: HYPOTHYROIDISM[ICD9: 244.9] Diagnosis: URGE INCONTINENCE[ICD9: 788.31] Diagnosis: Constipation - functional[ICD9: 564.09] Carleen Anaya MD, [facility] CPT-4: 57150 01/11/2015 Plan of Care Planned Activity Notes Codes Status Date Visit Plan: Sciatica- pt to continue with aleve twice daily and cyclobenzaprine x 1 week. Pt is to call if the symptoms do not improve or if they worsen. referral to [facility] physical therapy. 04/06/2018 Patient Education: Patient Medication Summary Completed [...] do not improve or if they worsen. [id number] Reagan morales 03/23/2018 Appointment: Carleen Anaya WPtel: [address] [place], [place] [address] (15 min) Moderate 03/23/2018 Patient Education: Patient [...] injection. 03/12/2018 Appointment: Wendi Uriostegui WPtel: [address] [facility] (30 min) Complex 03/12/2018 Patient Education: [...] with myrbetric 03/02/2018 Appointment: Carleen Anaya WPtel: [facility]4 [facility] (15 min) Moderate 03/02/2018 Patient Education: Patient Medication Summary Completed 03/02/2018 Appointment: (10 min) Simple 02/09/2018 Visit Plan: Cellulitis - start oral antibiotics as directed, return to clinic as directed, call for acute change in symptoms, worsening redness, warmth, discharge. 02/08/2018 Appointment: Mimi Espinosa WPtel: [facility]3 [phone] (15 min) Moderate 02/08/2018 Patient Education: [...] 50mg daily. 12/03/2017 Appointment: Carleen Anaya WPtel: [address] [place], [place] [phone] (15 min) Moderate 12/03/2017 Patient [...] allergy spray. 10/27/2017 Appointment: Wendi Uriostegui WPtel: [address] [place], [place] [phone] (15 min) Moderate 10/27/2017 Patient Education: Patient Medication Summary Completed 10/27/2017 Visit Plan: Pneumonia - Pt has been diagnosed with pneumonia by physical exam. A chest xray has been ordered as have antibiotics. The pt is aware of the diagnosis and the need for acute treatment of this illness. 10/12/2017 Appointment: Wendi Uriostegui WPtel: [facility]5 [facility] (15 min) Moderate 10/12/2017 Patient Education: [...] labs today. 10/06/2017 Appointment: Carleen Anaya WPtel: [facility]5 [facility] (15 min) Moderate 10/06/2017 Patient Education: [...] and prn. 08/05/2017 Appointment: Carleen Anaya WPtel: [facility]5 [facility] (15 min) Moderate 08/05/2017 Patient Education: Patient Medication Summary Completed 08/05/2017 Appointment: Carleen Anaya WPtel: [facility] (15 min) Moderate 07/14/2017 Visit Plan: Hypertension [...] gel. 07/06/2017 Appointment: Carleen Anaya WPtel: [phone] [facility] [place] (15 min) Moderate 07/06/2017 Patient Education: [...] today 06/18/2017 Appointment: Carleen Anaya WPtel: [phone] [place] (15 min) Moderate 06/18/2017 Patient Education: Patient Medication Summary Completed 06/18/2017 Appointment: Nurse Visit 05/12/2017 Care Plan: X-RAY EXAM OF SHOULDER LOINC : 14495-1 Pending 05/12/2017 Visit Plan: Weakness, fatigue, malaise - Discussed with Dr. Anaya - pt sent for IV fluids, will check labs and UA - will treat as indicated - pt is to keep her appointment with her fire apparatus sprinkler inspector for her ECHO and Carotid US. Pt is to follow up with her oncologist. Right shoulder pain after fall - will send for X-ray - The pt is to use prn antiinflammatories to manage acute pain. The patient is to call the office if the pain is worsening or does not improve. 05/11/2017 Appointment: [facility]ui [facility] [place] (30 min) Complex 05/11/2017 Patient Education: [...] plan. 04/27/2017 Appointment: [facility] Espinosa [phone] (15 min) Moderate 04/27/2017 Patient Education: Patient [...] heart beat - recommended evaluation by her Word Processing Operator - Dr. Butler - I attempted a phone call to the office of Dr. Butler, I had to leave a message on the answering machine. If i don't hear back from Dr. Butler's office, we will need to do a Holter monitor on patient. 04/08/2017 Appointment: Carleen Anaya WPtel: [phone] [facility] (15 min) Moderate 04/08/2017 Patient Education: Patient Medication Summary Completed 04/08/2017 Care Plan: Referral Order SNOMED-CT : [id number] Pending 04/08/2017 Visit Plan: UTI - pt [...] of injection. 03/03/2017 Appointment: Wendi Uriostegui WPtel: [facility]0 [facility] (30 min) Complex 03/03/2017 Patient [...] of control. 01/05/2017 Appointment: Carleen Anaya WPtel: [facility]5 [facility] (15 min) Moderate 01/05/2017 Patient Education: Patient Medication Summary Completed 01/05/2017 Visit Plan: Neck Pain- pt to start with aspercreme or biofreeze to neck three times daily and start neck exercises daily. Will send RX - The patient is to call the office if the pain is worsening or does not improve. 12/19/2016 Appointment: Wendi Uriostegui WPtel: [facility]0 [facility] (30 min) Complex 12/19/2016 Patient Education: [...] not improving. 11/13/2016 Appointment: Carleen Anaya WPtel: [facility]5 [facility]66[facility] (15 min) Moderate 11/13/2016 Patient Education: Patient Medication Summary Completed 11/13/2016 Visit Plan: Insomnia -extended release melatonin - you can take up to 10mg of melatonin sleepy time tea - - use warm milk in the tea. Right shoulder - pt to continue with therapy, anti-inflammatory 10/16/2016 Appointment: Carleen Anaya WPtel: [facility]5 [address] (15 min) Moderate 10/16/2016 Patient Education: Patient [...] with pt. 10/06/2016 Appointment: Carleen Anaya WPtel: [address] [place], [place] [phone] (15 min) Moderate 10/06/2016 Patient Education: Patient Medication Summary Completed 10/06/2016 Care Plan: X-RAY EXAM OF SHOULDER LOINC : 21526-8 Pending 10/06/2016 Appointment: Carleen Anaya WPtel: [address] [place], [place] [phone] (30 min) Complex 10/01/2016 Referral: [facility] WPtel: [address] Patient informed. Completed 07/08/2016 Visit Plan: [...] discussed therapy. 07/02/2016 Appointment: Carleen Anaya WPtel: [facility]6 [facility] (15 min) Moderate 07/02/2016 Patient Education: Patient Medication Summary Completed 07/02/2016 Care Plan: Referral Order SNOMED-CT : [id number] Pending 07/02/2016 Visit Plan: Hypertension - well [...] in 2017 05/21/2016 Appointment: Carleen Anaya WPtel: [facility] (15 min) Moderate 05/21/2016 Patient Education: Patient Medication Summary Completed 05/21/2016 Referral: Medardo Del Real [facility] Referral Completed 05/12/2016 Visit Plan: Esophageal [...] times daily 05/07/2016 Appointment: Carleen Anaya WPtel: 101[address] [facility]6[address] (15 min) Moderate 05/07/2016 Patient Education: Patient Medication Summary Completed 05/07/2016 Appointment: Mimi Espinosa WPtel: 101[address] [facility] (30 min) Complex 05/01/2016 Visit Plan: Allergies [...] Kenalog injection today in the office Sore swdutd-zcpoweuvo-pkzhy dexilant-refer to Dr Del Real for evaluation 04/28/2016 Appointment: Mimi Espinosa WPtel: 101[address] [facility] (30 min) Complex 04/28/2016 Patient Education: Patient [...] Appointment: Wendi Uriostegui WPtel: 1015 [facility] (30 min) Complex 04/07/2016 Patient Education: Patient [...] atigue-check labs including UA-culture if positive Urge yuyzwhsuaeeq-cihjqfktg-tdymi UA with C&S 04/03/2016 Appointment: Mimi Espinosa [...] change in blood pressure readings at home. Gcjmrmguo-uhlpmcgk-apcmhrva MRI brain Right ankle wfpt-pigsutv-wuzr right ankle- plan to refer to physical therapy if appropriate 01/31/2016 Appointment: Mimi Espinosa WPtel: [phone] (30 min) Complex 01/31/2016 Patient Education: Patient [...] to medications. 07/31/2015 Appointment: Carleen Anaya WPtel: [address] [place], [place] [address] (15 min) Moderate 07/31/2015 Patient Education: Patient Medication Summary Completed 07/31/2015 Patient Education: Hypertension Completed 07/31/2015 Care Plan: Referral Order SNOMED-CT : [id number] Ordered 07/31/2015 Visit Plan: Hypertension - uncontrolled [...] on Nortryptyline 07/03/2015 Appointment: Carleen Anaya WPtel: [address] [facility] (15 min) Moderate 07/03/2015 Patient Education: Patient [...] Completed 01/11/2015 Referral: [facility] W[facility]el: [facility] [place] [id number] [place] Referral Appointment Requested Referral: External, Ordering Provider Referral Appointment Requested Referral: External, Ordering Provider Referral Relationship Referral: Nasima Medardo [id number] Referral Appointment Requested Instructions Comment Flonase 1 [...] heart beat - recommended evaluation by her Word Processing Operator - Dr. Butler - I attempted a [...] Kenalog injection today in the office Sore aauohn-sjzjrlgqq-miiax dexilant-refer to Dr Del Real for evaluation [...] Fatigue-check labs including UA-culture if positive Urge hxvgjftrkmby-pedvaffvi-vwgea UA with C&S add z-pack, continue cefdinir [...] change in blood pressure readings at home. Fkzvmfncf-vsvxsxhn-ovcqltov MRI brain Right ankle texz-urmmfna-fmdd right ankle-plan to refer to physical therapy [...] if they worsen. referral to [facility] physical therapy. . Hypertension - well controlled [...] do not improve or if they worsen. [id number] - kenalog Stop Oxybutynin chloride ER. Start [...] is to keep her appointment with her fire apparatus sprinkler inspector for her ECHO and Carotid [place]. Pt [...]
--- OUTSIDE RECORDS SUMMARY | 2019-01-01 13:12 | XMS REPORT | CCD ---
Author Author [facility] Organization [facility] Address [address] [place] [address] Phone Care Team Providers Care Psychotherapist Name Role Phone PP Unavailable CCM Unavailable Summary Purpose Interface Exchange Insurance Providers Payer name Policy type / Coverage type Covered republican ID Effective Begin Date Effective End Date WPS Medicare Part B Medicare Part B [id number] Unknown Unknown [facility] Medicare Part B [id number] Unknown Unknown Family history Father Diagnosis Age At Onset Cancer Unknown Arthritis Unknown Mother Diagnosis Age At Onset Breast cancer Unknown Arthritis Unknown Social History Social History Element Codes Description Effective Dates Marital status Unknown 01/11/2015 Number of children Unknown 3 01/11/2015 Employment Unknown Retired 01/11/[address]: 1629146 Quit over 10 years ago 1950 01/11/[address]: 190626658 Never drinks alcohol 01/11/2015 Allergies, Adverse Reactions, Alerts Substance Reaction Codes Entered Date Inactivated Date Status * OTHER REACTION - SEE ANSWER BOX vancogein red Unknown 01/11/2015 No Inactive Date Active CODEINE RxNorm: 2670 01/11/2015 No Inactive Date Active demerol RxNorm: 060487 08/30/2015 No Inactive Date Active hydrocodone Unknown 01/11/2015 No Inactive Date Active MORPHINE AND RELATED Unknown 01/11/2015 No Inactive Date Active Past Medical History Illness Codes Condition Status Onset Date Resolved Date Sciatica Unknown Active 03/23/2018 Unknown Lumbago with sciatica, right side ICD-9: 724.3 ICD-10: M54.41 Active 03/23/2018 Unknown Sciatica, right side ICD- 9: 724.3 ICD-10: M54.31 Active 03/23/2018 Unknown Low back pain ICD-9: [...] ICD-9: V04.81 ICD-10: Z23 Active 07/02/2015 Unknown 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 term 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 (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 of anticoagulants ICD-9: V58.61 ICD-10: [...] Problems Condition Codes Effective Dates Condition Status Sciatica Unknown 03/23/2018 Active Lumbago with sciatica, right side ICD-9: 724.3 ICD-10: M54.41 03/23/2018 Active Sciatica, right side ICD- 9: 724.3 ICD-10: M54.31 03/23/2018 Active Low back pain ICD-9: 724.2 [...] immunization ICD-9: V04.81 ICD-10: Z23 07/02/2015 Active senior living (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 of anticoagulants ICD-9: V58.61 ICD-10: [...] Fill Instructions Synthroid 175 mcg tablet RxNorm: 849769 TAKE 1 TABLET BY MOUTH ONCE DAILY 04/06/2018 No Stop Date Active Synthroid 200 mcg tablet RxNorm: 189920 1 Tablet(s) PO TIW e 04/05/2018 08/02/2018 Active brand name only- Alternate with 175mcg dose schedule Synthroid 175 mcg tablet RxNorm: 064800 1 Tablet(s) PO 4 times a week Thu04/05/2018 09/01/2018 Active alternate with 175mcg order cyclobenzaprine 5 mg tablet RxNorm: 106478 1/2 Tablet(s) PO TID 03/23/2018 04/01/2018 Inactive tramadol 50 mg tablet RxNorm: 005986 1 Tablet(s) PO TID as needed 03/17/2018 No Stop Date Active Kenalog 40 mg/mL suspension for injection RxNorm: 8135936 2 Milliliter(s) Inj 03/12/2018 03/12/2018 Inactive prednisone 20 mg tablet RxNorm: 893302 2 Tablet(s) PO daily 03/11/2018 03/10/2018 Inactive prednisone 20 mg tablet RxNorm: 559738 2 Tablet(s) PO daily 03/11/2018 03/15/2018 Inactive losartan 25 mg tablet RxNorm: 255019 TAKE ONE TABLET BY MOUTH ONCE DAILY 02/16/2018 No Stop Date Active doxycycline hyclate 100 mg tablet RxNorm: 5210115 1 Tablet(s) PO BID 02/08/2018 02/14/2018 Inactive ceftriaxone 500 mg solution for injection RxNorm: 6973147 Inj 02/08/2018 02/08/2018 Inactive dapsone 25 mg tablet RxNorm: 143554 2 Tablet(s) PO daily 02/08/2018 02/12/2018 Inactive metoprolol succinate ER 100 mg tablet,extended release 24 hr RxNorm: 536719 TAKE ONE TABLET BY MOUTH ONCE DAILY 01/05/2018 No Stop Date Active Synthroid 175 mcg tablet RxNorm: 066587 1 Tablet(s) PO daily 01/01/2018 03/31/2018 Inactive Synthroid 175 mcg tablet RxNorm: 755715 1 Tablet(s) PO daily 01/01/2018 12/31/2017 Inactive Myrbetriq 50 mg tablet,extended release RxNorm: 3388334 1 Tablet(s) PO daily 12/03/2017 01/01/2018 Inactive Zithromax Z-Oliver 250 mg tablet RxNorm: 496430 1 Tablet(s) PO UD 10/12/2017 10/16/2017 Inactive Tessalon Perles 100 mg capsule RxNorm: 751869 2 Capsule(s) PO TID as needed 10/12/2017 10/16/2017 Inactive prednisone 20 mg tablet RxNorm: 004169 2 Tablet(s) PO daily 10/12/2017 10/16/2017 Inactive cefdinir 300 mg capsule RxNorm: 337954 1 Capsule(s) PO BID 10/08/2017 10/07/2017 Inactive Synthroid 150 mcg tablet RxNorm: 650008 1 Tablet(s) PO daily in morning, except 1/2 Tablet PO Thu, Sat, take 30 minutes before meal 10/08/2017 04/04/2018 Inactive brand name only cefdinir 300 mg capsule RxNorm: 023992 1 Capsule(s) PO BID 10/08/2017 10/14/2017 Inactive Synthroid 150 mcg tablet RxNorm: 448826 1 Tablet(s) PO daily in morning, take 30 minutes before meal 10/06/2017 10/07/2017 Inactive brand name only cefdinir 300 mg capsule RxNorm: 666836 1 Capsule(s) PO BID 08/24/2017 08/30/2017 Inactive Zithromax Z-Oliver 250 mg tablet RxNorm: 268455 1 Tablet(s) PO UD 08/20/2017 08/19/2017 Inactive Zithromax Z-Oliver 250 mg tablet RxNorm: 772439 1 Tablet(s) PO UD 08/20/2017 08/24/2017 Inactive Coumadin 3 mg tablet RxNorm: 244880 1 Tablet(s) PO Thursday, , , and Thu- Managed by Dr. Bowman -Managed by Dr. Bowman 08/05/2017 No Stop Date Active Synthroid 150 mcg tablet RxNorm: 087627 1 Tablet(s) PO daily in morning, take 30 minutes before meal 08/05/2017 08/04/2017 Inactive Synthroid 150 mcg tablet RxNorm: 898776 1 Tablet(s) PO daily in morning, take 30 minutes before meal 08/05/2017 10/05/2017 Inactive pantoprazole 40 mg tablet,delayed release RxNorm: 034852 1 Tablet(s) PO BID 07/08/2017 07/02/2018 Active pantoprazole 40 mg tablet,delayed release RxNorm: 671087 1 Tablet(s) PO BID 07/08/2017 07/07/2017 Inactive metoprolol succinate ER 100 mg tablet,extended release 24 hr RxNorm: 354792 TAKE ONE TABLET BY MOUTH ONCE DAILY 07/08/2017 01/04/2018 Inactive Coumadin 3 mg tablet RxNorm: 980519 1 Tablet(s) PO QPM -Managed by Dr. Bowman 07/06/2017 08/04/2017 Inactive Coumadin 3 mg tablet RxNorm: 112625 1 Tablet(s) PO QPM at 6:00pm Managed by Dr Bowman 1/2 pill on thursday and thursday, full pill other days 06/18/2017 07/05/2017 Inactive Voltaren 1 % topical gel RxNorm: 158512 2 TOP QID 06/18/2017 10/15/2017 Inactive losartan 25 mg tablet RxNorm: 712833 1 Tablet(s) PO daily TAKE ONE TABLET BY MOUTH ONCE DAILY 05/08/2017 11/03/2017 Inactive Micro-K 10 10 mEq capsule,extended release RxNorm: 955122 1 Capsule(s) PO daily 05/08/2017 12/02/2017 Inactive Synthroid 137 mcg tablet RxNorm: 140066 1 Tablet(s) PO QAM 05/08/2017 08/04/2017 Inactive Dose increased 04/14/17 pravastatin 10 mg tablet RxNorm: 755547 1 Tablet(s) PO daily TAKE ONE TABLET BY MOUTH ONCE DAILY 05/08/2017 12/02/2017 Inactive Namenda 10 mg tablet RxNorm: 106312 TAKE ONE TABLET BY MOUTH TWICE DAILY 05/07/2017 12/02/2017 Inactive Keflex 500 mg capsule RxNorm: 200103 1 Capsule(s) PO TID 04/27/2017 05/03/2017 Inactive Synthroid 137 mcg tablet RxNorm: 540610 1 Tablet(s) PO QAM 04/14/2017 04/13/2017 Inactive Vitamin D2 50,000 unit capsule RxNorm: 003907 1 Capsule(s) PO QW 04/14/2017 12/02/2017 Inactive Synthroid 137 mcg tablet RxNorm: 417770 1 Tablet(s) PO QAM 04/14/2017 05/07/2017 Inactive losartan 25 mg tablet RxNorm: 784811 TAKE ONE TABLET BY MOUTH ONCE DAILY 03/23/2017 05/07/2017 Inactive Synthroid 125 mcg tablet RxNorm: 834080 TAKE ONE TABLET BY MOUTH ONCE DAILY 03/12/2017 04/12/2017 Inactive ciprofloxacin 500 mg tablet RxNorm: 438574 1 Tablet(s) PO BID 2017 03/13/2017 Inactive prednisone 20 mg tablet RxNorm: 792923 2 Tablet(s) PO daily 03/03/2017 03/07/2017 Inactive tramadol 50 mg tablet RxNorm: 477583 1/2 Tablet(s) PO TID as needed 03/03/2017 12/02/2017 Inactive pravastatin 10 mg tablet RxNorm: 603206 TAKE ONE TABLET BY MOUTH ONCE DAILY 01/19/2017 05/07/2017 Inactive nortriptyline 10 mg capsule RxNorm: 552828 TAKE ONE CAPSULE BY MOUTH ONCE DAILY IN THE EVENING 01/14/2017 12/02/2017 Inactive Voltaren 1 % topical gel RxNorm: 626461 TOP QID 12/22/2016 02/19/2017 Inactive Voltaren 1 % topical gel RxNorm: 145122 TOP QID 12/22/2016 12/21/2016 Inactive prednisone 20 mg tablet RxNorm: 839809 2 Tablet(s) PO daily 12/19/2016 12/23/2016 Inactive cyclobenzaprine 5 mg tablet RxNorm: 924683 1/2 Tablet(s) PO BID as needed 12/19/2016 12/23/2016 Inactive Flector 1.3 % transdermal 12 hour patch RxNorm: 376404 1 Patch TOP every 12 hours as needed 12/19/2016 12/02/2017 Inactive losartan 25 mg tablet RxNorm: 576428 1 Tablet(s) PO daily TAKE ONE TABLET BY MOUTH ONCE DAILY 11/13/2016 03/22/2017 Inactive Namenda 10 mg tablet RxNorm: 606075 TAKE ONE TABLET BY MOUTH TWICE DAILY 10/28/2016 04/25/2017 Inactive nortriptyline 10 mg capsule RxNorm: 153113 TAKE ONE CAPSULE BY MOUTH ONCE DAILY IN THE EVENING 10/13/2016 01/10/2017 Inactive ceftriaxone 500 mg solution for injection RxNorm: 4506167 Inj 10/06/2016 10/06/2016 Inactive cefdinir 300 mg capsule RxNorm: 143031 1 Capsule(s) PO BID 10/06/2016 10/12/2016 Inactive prednisone 20 mg tablet RxNorm: 986143 2 Tablet(s) PO daily 10/06/2016 10/08/2016 Inactive ProAir RespiClick 90 mcg/actuation breath activated RxNorm: 6249535 2 INH TID x 3 days then one inhale tid x 3 days then prn shortness of breath 10/06/2016 11/04/2016 Inactive Kenalog 40 mg/mL suspension for injection RxNorm: 8522141 1 Milliliter(s) Inj 10/06/2016 10/06/2016 Inactive Myrbetriq 50 mg tablet,extended release RxNorm: 6865779 1 Tablet(s) PO daily 09/11/2016 11/12/2016 Inactive Namenda 10 mg tablet RxNorm: 742306 TAKE ONE TABLET BY MOUTH TWICE DAILY 07/25/2016 10/22/2016 Inactive hydrochlorothiazide 25 mg tablet RxNorm: 146017 1 Tablet(s) PO daily 07/25/2016 12/02/2017 Inactive Synthroid 125 mcg tablet RxNorm: 312728 TAKE ONE TABLET BY MOUTH ONCE DAILY 07/14/2016 03/10/2017 Inactive losartan 25 mg tablet RxNorm: 933640 TAKE ONE TABLET BY MOUTH ONCE DAILY 07/07/2016 11/12/2016 Inactive metoprolol succinate ER 100 mg tablet,extended release 24 hr RxNorm: 996008 1 Tablet(s) PO daily 06/16/2016 06/10/2017 Inactive nortriptyline 10 mg capsule RxNorm: 478792 Capsule(s) TAKE ONE CAPSULE BY MOUTH ONCE DAILY IN THE EVENING 06/09/2016 10/06/2016 Inactive Myrbetriq 50 mg tablet,extended release RxNorm: 0740490 1 Tablet(s) PO daily 05/21/2016 09/10/2016 Inactive doxycycline hyclate 100 mg tablet RxNorm: 135396 1 Tablet(s) PO BID 05/07/2016 05/13/2016 Inactive Carafate 100 mg/mL oral suspension RxNorm: 193212 10 Milliliter(s) PO QID 05/07/2016 12/02/2017 Inactive Kenalog 40 mg/mL suspension for injection RxNorm: 3695135 Milliliter(s) Inj 04/28/2016 04/28/2016 Inactive losartan 25 mg tablet RxNorm: 578099 TAKE ONE TABLET BY MOUTH ONCE DAILY 04/08/2016 07/06/2016 Inactive ciprofloxacin 500 mg tablet RxNorm: 153486 1 Tablet(s) PO BID 04/07/2016 04/13/2016 Inactive cyclobenzaprine 5 mg tablet RxNorm: 180229 1 Tablet(s) PO TID 04/07/2016 04/16/2016 Inactive Keflex 500 mg capsule RxNorm: 703917 1 Capsule(s) PO TID 04/03/2016 04/02/2016 Inactive Keflex 500 mg capsule RxNorm: 484446 1 Capsule(s) PO TID 04/03/2016 04/09/2016 Inactive losartan 25 mg tablet RxNorm: 962315 TAKE ONE TABLET BY MOUTH ONCE DAILY 03/06/2016 04/07/2016 Inactive nortriptyline 10 mg capsule RxNorm: 782162 TAKE ONE CAPSULE BY MOUTH ONCE DAILY IN THE EVENING 03/06/2016 06/03/2016 Inactive pravastatin 10 mg tablet RxNorm: 718405 TAKE ONE TABLET BY MOUTH ONCE DAILY 02/04/2016 01/18/2017 Inactive warfarin 4 mg tablet RxNorm: 627286 Tablet(s) PO q d except 5mg on tue 01/31/2016 06/17/2017 Inactive Myrbetriq 50 mg tablet,extended release RxNorm: 9705338 1 Tablet(s) PO daily 01/17/2016 05/15/2016 Inactive Namenda 10 mg tablet RxNorm: 363730 1 Tablet(s) PO BID 01/01/2016 06/28/2016 Inactive Myrbetriq 50 mg tablet,extended release RxNorm: 2584394 1 Tablet(s) PO daily 12/20/2015 12/20/2015 Inactive Synthroid 125 mcg tablet RxNorm: 290097 1 Tablet(s) PO daily 11/14/2015 07/10/2016 Inactive nortriptyline 10 mg capsule RxNorm: 885946 TAKE ONE CAPSULE BY MOUTH ONCE DAILY IN THE EVENING 11/05/2015 03/03/2016 Inactive Myrbetriq 50 mg tablet,extended release RxNorm: 7198134 1 Tablet(s) PO daily 10/01/2015 12/19/2015 Inactive Namenda 10 mg tablet RxNorm: 458318 1 Tablet(s) PO BID 08/30/2015 12/31/2015 Inactive Vesicare 10 mg tablet RxNorm: 460437 1 Tablet(s) PO daily 08/30/2015 09/30/2015 Inactive warfarin 4 mg tablet RxNorm: 163863 Tablet(s) PO 08/30/2015 01/30/2016 Inactive Synthroid 125 mcg tablet RxNorm: 571715 1 Tablet(s) PO daily 08/02/2015 11/13/2015 Inactive Synthroid 125 mcg tablet RxNorm: 229762 Tablet(s) PO 08/01/2015 08/01/2015 Inactive losartan 25 mg tablet RxNorm: 764151 1 Tablet(s) PO daily 07/31/2015 02/25/2016 Inactive pravastatin 10 mg tablet RxNorm: 861916 1 Tablet(s) PO daily 07/23/2015 01/18/2016 Inactive hydrochlorothiazide 25 mg tablet RxNorm: 540129 1 Tablet(s) PO daily 07/19/2015 07/12/2016 Inactive nortriptyline 10 mg capsule RxNorm: 355098 1 Capsule(s) PO QPM 07/03/2015 10/30/2015 Inactive metoprolol succinate ER 100 mg tablet,extended release 24 hr RxNorm: 787398 1 Tablet(s) PO daily 06/06/2015 05/30/2016 Inactive pravastatin 10 mg tablet RxNorm: 615946 1 Tablet(s) PO daily 01/22/2015 07/20/2015 Inactive aspirin 81 mg capsule,delayed release RxNorm: 521669 1 Capsule(s) PO daily 01/11/2015 02/09/2015 Inactive Fosamax 5 mg tablet RxNorm: 112205 1 Tablet(s) QW 01/11/2015 12/02/2017 Inactive oxybutynin chloride ER 10 mg tablet,extended release 24 hr RxNorm: 902691 1 Tablet(s) PO daily 01/11/2015 08/29/2015 Inactive Coumadin 4 mg tablet RxNorm: 601094 1 Tablet(s) PO daily on M,W,F No Start Date Active Vitamin D2 oral RxNorm: 4018 oral No Start Date Active Colace 100 mg capsule RxNorm: 2453945 Capsule(s) PO No Start Date Active Claritin oral RxNorm: 35567 oral No Start Date Active PreserVision AREDS 2 oral RxNorm: 7789883 oral No Start Date Active pravastatin 10 mg tablet RxNorm: 807023 1 Tablet(s) PO daily No Start Date 01/21/2015 Inactive Tylenol PM oral RxNorm: 493785 oral No Start Date 04/07/2017 Inactive Vitamin D2 50,000 unit capsule RxNorm: 362054 1 Capsule(s) PO QW No Start Date 04/13/2017 Inactive tramadol 50 mg tablet RxNorm: 022031 1 Tablet(s) PO TID as needed No Start Date 03/16/2018 Inactive Micro-K 10 10 mEq capsule,extended release RxNorm: 519403 1 Capsule(s) PO daily No Start Date 05/07/2017 Inactive Synthroid 100 mcg tablet RxNorm: 694205 Tablet(s) PO No Start Date 07/31/2015 Inactive hydrochlorothiazide 25 mg tablet RxNorm: 225713 1 Tablet(s) PO daily No Start Date 07/18/2015 Inactive warfarin 2 mg tablet RxNorm: 558967 Tablet(s) PO No Start Date 08/29/2015 Inactive metoprolol succinate ER 100 mg tablet,extended release 24 hr RxNorm: 998136 1 Tablet(s) PO daily No Start Date 06/05/2015 Inactive warfarin 3 mg tablet RxNorm: 733107 Tablet(s) PO No Start Date 08/29/2015 Inactive Coumadin 3 mg tablet RxNorm: 029753 1 Tablet(s) PO QPM at 6:00pm Managed by Dr Bowman No Start Date 06/17/2017 Inactive Medication Administered Medication Codes Instructions Start Date Status Kenalog 40 mg/mL suspension for injection RxNorm: 1756073 2Milliliter 03/12/2018 No longer Active ceftriaxone 500 mg solution for injection RxNorm: 7280939 02/08/2018 No longer Active Kenalog 40 mg/mL suspension for injection RxNorm: 1791892 1Milliliter 10/06/2016 No longer Active ceftriaxone 500 mg solution for injection RxNorm: 0044738 10/06/2016 No longer Active Kenalog 40 mg/mL suspension for injection RxNorm: 2684202 Milliliter 04/28/2016 No longer Active Immunizations Vaccine Codes Date Status Influenza CVX: 141 06/18/2017 completed Influenza CVX: 141 06/10/2016 completed Pneumococcal CVX: 133 05/29/2016 completed Influenza CVX: 141 07/03/2015 completed Assessments Condition Codes Effective Dates Sciatica, right side ICD-10: M54.31 ICD-9: 724.3 03/23/2018 Lumbago with sciatica, right side ICD-10: M54.41 ICD-9: 724.3 03/23/2018 Low back pain ICD-10: M54.5 ICD-9: 724.2 03/12/2018 Sacroiliitis, not elsewhere classified ICD-10: M46.1 ICD-9: 720.2 03/12/2018 Essential (primary) hypertension ICD-10: I10 ICD-9: 401.1 03/02/2018 Atrophy of thyroid (acquired) ICD-10: E03.4 ICD-9: 244.8 03/02/2018 Urge incontinence ICD-10: N39.41 ICD-9: 788.31 03/02/2018 Cellulitis of face ICD-10: L03.211 ICD-9: 682.0 02/08/2018 Other allergic rhinitis ICD-10: J30.89 ICD-9: 477.8 10/27/2017 Weakness ICD-10: R53.1 ICD-9: 780.79 10/27/2017 Chronic systolic (congestive) heart failure ICD-10: I50.22 ICD-9: 428.22 10/12/2017 Pneumonia due to other specified bacteria ICD-10: J15.8 ICD-9: 482.81 10/12/2017 Nonscarring hair loss, unspecified ICD-10: L65.9 ICD-9: 704.00 10/06/2017 Localized edema ICD-10: R60.0 ICD-9: 782.3 08/05/2017 Other fecal abnormalities ICD-10: R19.5 ICD-9: 787.7 07/06/2017 Diarrhea, unspecified ICD-10: R19.7 ICD-9: 787.91 07/03/2017 senior living (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 of anticoagulants ICD-10: Z79.01 ICD-9: V58.61 06/18/2017 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 ICD-9: V42.2 06/18/2017 Encounter for immunization ICD-10: Z23 ICD-9: V03.82 06/18/2017 Other fatigue ICD-10: R53.83 ICD-9: 780.79 06/18/2017 Pain in right shoulder ICD-10: M25.511 ICD-9: 719.41 05/11/2017 Other malaise ICD-10: R53.81 ICD-9: 780.79 05/11/2017 Acute recurrent maxillary sinusitis ICD-10: J01.01 ICD-9: 461.0 04/27/2017 Urinary tract infection, site not specified ICD-10: N39.0 ICD-9: 599.0 04/27/2017 Mixed hyperlipidemia ICD-10: E78.2 ICD-9: 272.2 04/08/2017 Other specified heart block ICD-10: I45.5 ICD-9: 426.6 04/08/2017 Iron deficiency ICD-10: E61.1 ICD-9: 280.9 04/08/2017 Dysuria ICD-10: R30.0 ICD-9: 788.1 2017 [...] on feet ICD-10: R26.81 ICD-9: 781.2 07/02/2016 Essential (primary) hypertension ICD-10: I10 ICD-9: 401.9 07/02/2016 Personal history of other specified conditions ICD-10: Z87.898 ICD-9: V13.89 07/02/2016 Dysphagia, pharyngeal phase ICD-10: R13.13 ICD-9: [...] 04/10/2015 Peripheral vascular disease ICD-9: 443.9 04/10/2015 MACULAR DEGENERATION ICD-9: 362.50 04/10/2015 ESSENTIAL HYPERTENSION ICD-9: 401.9 04/10/2015 HYPOTHYROIDISM ICD-9: 244.9 01/11/2015 Constipation - functional ICD-9: 564.09 01/11/2015 URGE INCONTINENCE ICD-9: 788.31 01/11/2015 Reason For Visit Reason For Visit Effective Dates Notes back pain 03/23/2018 back pain 03/12/2018 hypertension [...] (3rd IS) 3.19 uIU/mL 10/06/2017 Free T4 Loa884 FREE T4 1.64 ng/dL 10/06/2017 Tsh Ord6 hTSH II 6.19 uIU/mL 08/05/2017 Free T4 Uzm736 FREE T4 1.03 ng/dL 08/05/2017 Urine Culture Ucult Complete NO Growth Day 2 04/29/2017 Urine Culture Ucult Preliminary NO Growth Day 1 04/29/2017 Tsh Ord6 hTSH II 7.92 uIU/mL 04/09/2017 Free T4 Yyb035 FREE T4 0.97 ng/dL 04/09/2017 Comp Metabolic Jyb693 NA 136 mEq/L 04/09/2017 Comp Metabolic Tnt528 K 3.9 mEq/L 04/09/2017 Comp Metabolic Krs589 CL 98 mEq/L 04/09/2017 Comp Metabolic Lfc292 CO2 28.0 mEq/L 04/09/2017 Comp Metabolic Pqy504 ANION GAP 14 04/09/2017 Comp Metabolic Pme736 GLUCOSE 90 mg/dL 04/09/2017 Comp Metabolic Ryo602 Creat 0.6 mg/dL 04/09/2017 Comp Metabolic Qiw868 eGFR 102 ml/min/1.73m2 04/09/2017 Comp Metabolic Dqu503 BUN 9 mg/dL 04/09/2017 Comp Metabolic Tby137 B/C Ratio 15.3 Ratio 04/09/2017 Comp Metabolic Eob820 CALCIUM 8.8 mg/dL 04/09/2017 Comp Metabolic Bpv196 ALK PHOS 102 U/L 04/09/2017 Comp Metabolic Dii944 AST(SGOT) 18 U/L 04/09/2017 Comp Metabolic Ovj187 ALT(SGPT) 14 U/L 04/09/2017 Comp Metabolic Jyd194 BILI T 0.4 mg/dL 04/09/2017 Comp Metabolic Sqi296 ALBUMIN 3.9 g/dL 04/09/2017 Comp Metabolic Imw347 TPRO 6.3 g/dL 04/09/2017 Comp Metabolic Uer448 GLOB 2.4 g/dL 04/09/2017 Comp Metabolic Syn732 A/G Ratio 1.7 Ratio 04/09/2017 Comp Metabolic Vfj169 Osmo 270 mOsmo 04/09/2017 Cbc With Differential Ord2 WBC 7.51 K/ul 04/09/2017 Cbc With Differential Ord2 RBC 4.39 M/ul 04/09/2017 Cbc With Differential Ord2 HGB 12.7 g/dl 04/09/2017 Cbc With Differential Ord2 Neut% 72.8 % 04/09/2017 Cbc With Differential Ord2 HCT 39.3 % 04/09/2017 Cbc With Differential Ord2 MCV 89.5 fl 04/09/2017 Cbc With Differential Ord2 Lymph% 16.2 % 04/09/2017 Cbc With Differential Ord2 [place]% 8.8 % 04/09/2017 Cbc With Differential Ord2 MCH 28.9 pg 04/09/2017 Cbc With Differential Ord2 MCHC 32.3 pg 04/09/2017 Cbc With Differential Ord2 Eos% 1.7 % 04/09/2017 Cbc With Differential Ord2 PLT 207 K/ul 04/09/2017 Cbc With Differential Ord2 Baso% 0.5 % 04/09/2017 Cbc With Differential Ord2 RDW 15.2 % 04/09/2017 Cbc With Differential Ord2 Neut ABS# 5.46 K/ul 04/09/2017 Cbc With Differential Ord2 Lymph ABS# 1.22 K/ul 04/09/2017 Cbc With Differential Ord2 [place] ABS# 0.7 K/ul 04/09/2017 Cbc With Differential Ord2 Eos ABS# 0.1 K/ul 04/09/2017 Cbc With Differential Ord2 Baso ABS# 0.0 K/ul 04/09/2017 Lipid Ord30 CHOL 215 mg/dL 04/09/2017 Lipid Ord30 HDL 58.0 mg/dl 04/09/2017 Lipid Ord30 TRIG 68 mg/dL 04/09/2017 Lipid Ord30 LDL 143 mg/dL 04/09/2017 Lipid Ord30 C/HDL 3.7 Ratio 04/09/2017 Tibc Ord40 Iron 36 ug/dl 04/09/2017 Tibc Ord40 UIBC 281 ug/dL 04/09/2017 Tibc Ord40 TIBC 317 ug/dL 04/09/2017 Tibc Ord40 Fe-%Sat 11.4 % 04/09/2017 Vitamin D 25 Oh Aeb2764 VITAMIN D, 25 HYDROXY 34.31 ng/mL 04/09/2017 Urine Culture Ucult Complete >100,000 col/ml aerobic growth sent to ref lab 03/05/2017 Pt [id number] PT 24.2 seconds 04/14/2016 Pt Gzc2865 INR 2.3 04/14/2016 Pt Fbd6240 Low Intensity - 1.5-2.0 04/14/2016 Pt Mwx2846 Mod intensity - 2.0-3.0 04/14/2016 Pt Cms0328 Hi intensity - 3.0-4.0 04/14/2016 Pt Whu2325 PT 31.3 seconds 04/10/2016 Pt Izk9048 INR 3.3 04/10/2016 Pt Xun4580 Low Intensity - 1.5-2.0 04/10/2016 Pt Nwm2918 Mod intensity - 2.0-3.0 04/10/2016 Pt Fvb2037 Hi intensity - 3.0-4.0 04/10/2016 C RAP A SC [id number] Strep A Negative 04/10/2016 Urine Culture Ucult Complete >100,000 col/ml aerobic growth sent to ref lab 04/04/2016 Free T4 Oob008 FREE T4 0.99 ng/dL 04/03/2016 Comp Metabolic Aes183 NA 136 mEq/L 04/03/2016 Comp Metabolic Rwg656 K 3.9 mEq/L 04/03/2016 Comp Metabolic Jof585 CL 99 mEq/L 04/03/2016 Comp Metabolic Gxi604 CO2 32.0 mEq/L 04/03/2016 Comp Metabolic Inl588 ANION GAP 9 04/03/2016 Comp Metabolic Juq301 GLUCOSE 88 mg/dL 04/03/2016 Comp Metabolic Tiz023 Creat 0.6 mg/dL 04/03/2016 Comp Metabolic Bee636 eGFR 93 ml/min/1.73m2 04/03/2016 Comp Metabolic Ogx698 BUN 15 mg/dL 04/03/2016 Comp Metabolic Zdn411 B/C Ratio 23.4 Ratio 04/03/2016 Comp Metabolic Num155 CALCIUM 8.7 mg/dL 04/03/2016 Comp Metabolic Eqm323 ALK PHOS 100 U/L 04/03/2016 Comp Metabolic Dne552 AST(SGOT) 28 U/L 04/03/2016 Comp Metabolic Uwg546 ALT(SGPT) 39 U/L 04/03/2016 Comp Metabolic Gqx356 BILI T 0.5 mg/dL 04/03/2016 Comp Metabolic Ump401 ALBUMIN 4.1 g/dL 04/03/2016 Comp Metabolic Psa968 TPRO 6.6 g/dL 04/03/2016 Comp Metabolic Cpo539 GLOB 2.5 g/dL 04/03/2016 Comp Metabolic Zio513 A/G Ratio 1.7 Ratio 04/03/2016 Comp Metabolic Jtf686 Osmo 272 mOsmo 04/03/2016 Cbc With Differential [...] 91.3 fl 04/03/2016 Cbc With Differential Ord2 MCH 29.0 pg 04/03/2016 Cbc With Differential Ord2 [place]% 11.3 % 04/03/2016 Cbc With Differential Ord2 [...] 1.15 K/ul 04/03/2016 Cbc With Differential Ord2 [place] ABS# 0.8 K/ul 04/03/2016 Cbc With Differential Ord2 Eos ABS# 0.2 K/ul 04/03/2016 Cbc With Differential Ord2 Baso ABS# 0.0 K/ul 04/03/2016 Tsh Ord6 hTSH II 3.06 uIU/mL 04/03/2016 Free T4 Veu526 FREE T4 0.81 ng/dL 07/31/2015 Cbc With Differential Ord2 WBC 6.5 [...] 07/31/2015 Lipid Ord30 C/HDL 4.8 Ratio 07/31/2015 Tsh Ord6 hTSH II 13.88 uIU/mL 07/31/2015 Comp Metabolic Tzf263 NA 136 mEq/L 07/31/2015 Comp Metabolic Xir450 K 3.8 mEq/L 07/31/2015 Comp Metabolic Ijk718 CL 97 mEq/L 07/31/2015 Comp Metabolic Frk820 CO2 29.0 mEq/L 07/31/2015 Comp Metabolic Btb509 ANION GAP 14 07/31/2015 Comp Metabolic Yah343 GLUCOSE 90 mg/dL 07/31/2015 Comp Metabolic Vtf978 Creat 0.7 mg/dL 07/31/2015 Comp Metabolic Tar656 eGFR 80 ml/min/1.73m2 07/31/2015 Comp Metabolic Imj929 BUN 8 mg/dL 07/31/2015 Comp Metabolic Hbb759 B/C Ratio 11.0 Ratio 07/31/2015 Comp Metabolic Zxu943 CALCIUM 8.9 mg/dL 07/31/2015 Comp Metabolic Zev382 ALK PHOS 102 U/L 07/31/2015 Comp Metabolic Zjd255 AST(SGOT) 22 U/L 07/31/2015 Comp Metabolic Qmw259 ALT(SGPT) 14 U/L 07/31/2015 Comp Metabolic Shp195 BILI T 0.5 mg/dL 07/31/2015 Comp Metabolic Vat432 ALBUMIN 4.4 g/dL 07/31/2015 Comp Metabolic Xot503 TPRO 6.7 g/dL 07/31/2015 Comp Metabolic Ufy147 GLOB 2.3 g/dL 07/31/2015 Comp Metabolic Kti763 A/G Ratio 1.9 Ratio 07/31/2015 Comp Metabolic Inh968 Osmo 270 mOsmo 07/31/2015 Pt Vlo8852 PT 31.9 seconds 07/03/2015 Pt Svg8628 INR 3.2 07/03/2015 Pt Gta3459 Low Intensity - 1.5-2.0 07/03/2015 Pt Blh1491 Mod intensity - 2.0-3.0 07/03/2015 Pt Bxj8627 Hi intensity - 3.0-4.0 07/03/2015 Review of Systems System Result Effective Dates Constitutional No recent illness 03/23/2018 Constitutional No [...] Procedures Procedure Codes Date DRAIN/INJECT JOINT/BURSA CPT-4: 68143 03/23/2018 TRIAMCINOLONE ACET INJ NOS CPT-4: J3301 03/23/2018 DRAIN/INJECT JOINT/BURSA CPT-4: 33929 03/12/2018 TRIAMCINOLONE ACET INJ NOS CPT-4: J3301 03/12/2018 ROCEPHIN, PER 250 MG CPT- 4: J0696 02/08/2018 ADMIN INFLUENZA VIRUS VAC CPT-4: G0008 06/18/2017 FLU VACC PRSV FREE INC ANTIG CPT-4: 16135 06/18/2017 URINALYSIS NONAUTO W/O SCOPE CPT-4: 14223 04/27/2017 URINALYSIS NONAUTO W/O SCOPE CPT-4: 69722 2017 DRAIN/INJECT JOINT/BURSA CPT-4: 26935 03/03/2017 TRIAMCINOLONE ACET INJ NOS CPT-4: J3301 03/03/2017 TRIAMCINOLONE ACET INJ NOS CPT-4: J3301 10/06/2016 ROCEPHIN, PER 250 MG CPT- 4: J0696 10/06/2016 THER/PROPH/DIAG INJ SC/IM CPT-4: 49014 10/06/2016 TRIAMCINOLONE ACET INJ NOS CPT-4: J3301 04/28/2016 URINALYSIS NONAUTO W/O SCOPE CPT-4: 27441 04/03/2016 ADMIN INFLUENZA VIRUS VAC CPT-4: G0008 07/03/2015 FLU VACC PRSV FREE INC ANTIG CPT-4: 44090 07/03/2015 Vital Signs Date Vital 03/23/2018 Blood Pressure 1: 150/88 Code: 8480-6 Heart Rate 1: 80 bpm Height: SpO2: 96% Weight: 03/12/2018 Heart Rate 1: 90 bpm Height: Weight: 03/02/2018 Blood Pressure 1: 128/80 Code: 8480-6 BMI: 28.4 Code: 58049-5 Heart Rate 1: 83 bpm Height: 5'6" SpO2: 93% Weight: 176 lbs 02/08/2018 Blood Pressure 1: 142/80 Code: 8480-6 Heart Rate 1: 78 bpm Height: 5'6" SpO2: 94% 12/03/2017 Blood Pressure 1: 124/78 Code: 8480-6 BMI: 27.9 Code: 79208-7 Heart Rate 1: 70 bpm Height: 5'6" SpO2: 97% Weight: 173 lbs 10/27/2017 Blood Pressure 1: 126/60 Code: 8480-6 Heart Rate 1: 65 bpm Height: 5'6" SpO2: 98% Weight: 10/12/2017 Blood Pressure 1: 126/74 Code: 8480-6 BMI: 26.0 Code: 44993-2 Heart Rate 1: 80 bpm Height: 5'6" SpO2: 89% Weight: 161 lbs 10/06/2017 Blood Pressure 1: 126/70 Code: 8480-6 BMI: 27.2 Code: 05193-9 Heart Rate 1: 73 bpm Height: 5'6" SpO2: 97% Weight: 168 lbs 8 oz 08/05/2017 Blood Pressure 1: 152/78 Code: 8480-6 BMI: 27.1 Code: 13214-6 Heart Rate 1: 73 bpm Height: 5'6" SpO2: 98% Weight: 168 lbs 07/06/2017 Blood Pressure 1: 148/70 Code: 8480-6 BMI: 26.6 Code: 38259-7 Heart Rate 1: 80 bpm Height: 5'6" SpO2: 97% Weight: 165 lbs 06/18/2017 Blood Pressure 1: 132/68 Code: 8480-6 BMI: 26.8 Code: 78908-1 Heart Rate 1: 84 bpm Height: 5'6" [...] 1: 162/84 Code: 8480-6 BMI: 28.1 Code: 27647-1 Heart Rate 1: 98 bpm Height: 5'6" SpO2: 97% Weight: 174 lbs 03/03/2017 Blood Pressure 1: 154/88 Code: 8480-6 Heart Rate 1: 96 bpm Height: SpO2: 95% Weight: 01/05/2017 Blood Pressure 1: 142/78 Code: 8480-6 BMI: 28.9 Code: 60229-2 Heart Rate 1: 94 bpm Height: 5'6" SpO2: 95% Weight: 179 lbs 12/19/2016 Blood Pressure 1: 130/74 Code: 8480-6 Heart Rate 1: 91 bpm Height: 5'6" SpO2: 97% Weight: 11/13/2016 Blood Pressure 1: 152/82 Code: 8480-6 BMI: 28.4 Code: 13809-3 Heart Rate 1: 85 bpm Height: 5'6" SpO2: 96% Weight: 176 lbs 10/16/2016 Blood Pressure 1: 148/72 Code: 8480-6 BMI: 28.4 Code: 96009-8 Heart Rate 1: 90 bpm Height: 5'6" SpO2: 96% Weight: 176 lbs 10/06/2016 Blood Pressure 1: 150/80 Code: 8480-6 BMI: 28.4 Code: 04866-0 Heart Rate 1: 76 bpm Height: 5'6" SpO2: 97% Weight: 176 lbs 07/02/2016 Blood Pressure 1: 142/78 Code: 8480-6 BMI: 27.8 Code: 93618-4 Heart Rate 1: 85 bpm Height: 5'6" SpO2: 97% Weight: 172 lbs 05/21/2016 Blood Pressure 1: 166/80 Code: 8480-6 BMI: 27.9 Code: 16862-8 Heart Rate 1: 79 bpm Height: 5'6" SpO2: 98% Weight: 173 lbs 05/07/2016 Blood Pressure 1: 140/70 Code: 8480-6 BMI: 27.9 Code: 81756-4 Heart Rate 1: 82 bpm Height: 5'6" SpO2: 96% Weight: 173 lbs 04/28/2016 Blood Pressure 1: 128/86 Code: 8480-6 BMI: 27.4 Code: 31775-5 Heart Rate 1: 86 bpm Height: 5'6" SpO2: 96% Temperature: 36.1 (C) / 97.0 (F) Weight: 170 lbs 04/07/2016 Blood Pressure 1: 150/80 Code: 8480-6 Heart Rate 1: 94 bpm Height: SpO2: 95% Weight: 04/03/2016 Blood Pressure 1: 122/76 Code: 8480-6 BMI: 27.4 Code: 23100-4 Heart Rate 1: 84 bpm Height: 5'6" SpO2: 94% Weight: 170 lbs 01/31/2016 Blood Pressure 1: 124/82 Code: 8480-6 BMI: 27.8 Code: 31936-0 Heart Rate 1: 100 bpm Height: 5'6" SpO2: 97% Weight: 172 lbs 11/29/2015 Blood Pressure 1: 130/84 Code: 8480-6 Blood Pressure 1: 140/82 Code: 8480-6 BMI: 27.4 Code: 02068-7 Heart Rate 1: 97 bpm Height: 5'6" SpO2: 95% Weight: 170 lbs 10/01/2015 Blood Pressure 1: 130/80 Code: 8480-6 BMI: 27.4 Code: 98315-5 Heart Rate 1: 82 bpm Height: 5'6" SpO2: 97% Weight: 170 lbs 08/30/2015 Blood Pressure 1: 120/68 Code: 8480-6 BMI: 27.6 Code: 82893-3 Heart Rate 1: 91 bpm Height: 5'6" SpO2: 96% Weight: 171 lbs 07/31/2015 Blood Pressure 1: 180/80 Code: 8480-6 BMI: 27.4 Code: 13568-8 Heart Rate 1: 60 bpm Height: 5'6" SpO2: 94% Weight: 170 lbs 07/03/2015 Blood Pressure 1: 154/80 Code: 8480-6 BMI: 27.4 Code: 87132-0 Heart Rate 1: 98 bpm Height: 5'6" SpO2: 95% Weight: 170 lbs 04/10/2015 Blood Pressure 1: 138/72 Code: 8480-6 BMI: 27.8 Code: 06273-2 Heart Rate 1: 82 bpm Height: 5'6" SpO2: 98% Weight: 172 lbs 01/11/2015 Blood Pressure 1: 132/74 Code: 8480-6 BMI: 28.6 Code: 93095-6 Heart Rate 1: 88 bpm Height: 5'6" SpO2: 96% Weight: 177 lbs Functional Status No Functional Status data History of Present Illness Symptom Name Status Result Effective Date Notes back pain Location lumbar-sacral spine 03/23/2018 None [...] Encounters Encounter Performer Location Codes Date () 80332 EST. PATIENT, LEVEL III Diagnosis: Lumbago with sciatica, right side[ICD10: M54.41] Diagnosis: Sciatica, right side[ICD10: M54.31] Carleen Anaya MD, [facility] CPT- 4: 62578 03/23/2018 04767 EST. PATIENT, LEVEL III Diagnosis: Low back pain[ICD10: M54.5] Diagnosis: Sacroiliitis, not elsewhere classified[ICD10: M46.1] Wendi Anaya MD, [facility] CPT-4: 01001 03/12/2018 ([id number]) 65535 EST. PATIENT, LEVEL IV Diagnosis: Atrophy of thyroid (acquired)[ICD10: E03.4] Diagnosis: Essential (primary) hypertension[ICD10: I10] Diagnosis: Urge incontinence[ICD10: N39.41] Carleen Anaya MD, [facility] CPT-4: 80415 03/02/2018 ([id number]) 45878 EST. PATIENT, LEVEL III Diagnosis: Cellulitis of face[ICD10: L03.211] Mimi Anaya MD, [facility] CPT- 4: 70039 02/08/2018 ([id number]) 33685 EST. 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 PATIENT, LEVEL IV Diagnosis: Essential (primary) hypertension[ICD10: I10] Diagnosis: Weakness[ICD10: R53.1] Diagnosis: Low back pain[ICD10: M54.5] Diagnosis: Other allergic rhinitis[ICD10: J30.89] Wendi Anaya MD, [facility] CPT- 4: 57781 10/27/2017 40349 EST. PATIENT, LEVEL IV Diagnosis: Pneumonia due to other specified bacteria[ICD10: J15.8] Diagnosis: Chronic systolic (congestive) heart failure[ICD10: I50.22] Wendi Anyaa MD, [facility] CPT-4: 28723 10/12/2017 ([id number]) 19482 EST. 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 PATIENT, LEVEL IV Diagnosis: Atrophy of thyroid (acquired)[ICD10: E03.4] Diagnosis: Essential (primary) hypertension[ICD10: I10] Diagnosis: Localized edema[ICD10: R60.0] Carleen Anaya MD, [facility] CPT-4: 38263 08/05/2017 ([id number]) 46458 EST. PATIENT, LEVEL IV Diagnosis: Essential (primary) hypertension[ICD10: I10] Diagnosis: Weakness[ICD10: R53.1] Diagnosis: Other fecal abnormalities[ICD10: R19.5] Carleen Anaya MD, [facility] CPT-4: 70208 07/06/2017 ([id number]) 60535 EST. 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 PATIENT, LEVEL IV Diagnosis: Pain in right shoulder[ICD10: M25.511] Diagnosis: Weakness[ICD10: R53.1] Diagnosis: Other fatigue[ICD10: R53.83] Diagnosis: Other malaise[ICD10: R53.81] Wendi Anaya MD, [facility] CPT-4: 52656 05/11/2017 ([id number]) Miscellaneous no charge Diagnosis: Essential (primary) hypertension[ICD10: I10] Mimi Anaya MD, [facility] CPT-4: 27085 04/30/2017 ([id number]) 49098 EST. PATIENT, LEVEL III Diagnosis: Acute recurrent maxillary sinusitis[ICD10: J01.01] Diagnosis: Urinary tract infection, site not specified[ICD10: N39.0] Mimi Anaya MD, [facility] CPT-4: 81902 04/27/2017 ([id number]) 63379 EST. PATIENT, LEVEL IV Diagnosis: Atrophy of thyroid (acquired)[ICD10: E03.4] Diagnosis: Essential (primary) hypertension[ICD10: I10] Diagnosis: Iron deficiency[ICD10: E61.1] Diagnosis: Other specified heart block[ICD10: I45.5] Carleen Anaya MD, [facility] CPT-4: 78975 04/08/2017 50637 EST. PATIENT, LEVEL III Diagnosis: Low back pain[ICD10: M54.5] Diagnosis: Sacroiliitis, not elsewhere classified[ICD10: M46.1] Wendi Anaya MD, [facility] CPT-4: 33922 03/03/2017 ([id number]) 20511 EST. 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 PATIENT, LEVEL III Diagnosis: Cervicalgia[ICD10: M54.2] Diagnosis: Other muscle spasm[ICD10: M62.838] Wendi Anaya MD, [facility] CPT-4: 37322 12/19/2016 ([id number]) 20475 EST. PATIENT, LEVEL III Diagnosis: Essential (primary) hypertension[ICD10: I10] Diagnosis: Gastro-esophageal reflux disease without esophagitis[ICD10: K21.9] Carleen Anaya MD [facility] CPT-4: 39264 11/13/2016 ([id number]) 13676 EST. 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 PATIENT, LEVEL IV Diagnosis: Pneumonia due to other specified bacteria[ICD10: J15.8] Diagnosis: Pain in right shoulder[ICD10: M25.511] Diagnosis: Cough[ICD10: R05] Carleen Anaya MD [facility] CPT-4: 09774 10/06/2016 ([id number]) 51835 EST. PATIENT, LEVEL IV Diagnosis: Essential (primary) hypertension[ICD10: I10] Diagnosis: Personal history of other specified conditions[ICD10: Z87.898] Diagnosis: Unsteadiness on feet[ICD10: R26.81] Carleen Anaya MD [facility] CPT- 4: 37881 07/02/2016 ([id number]) 22976 EST. PATIENT, LEVEL IV Diagnosis: Dysphagia, pharyngeal phase[ICD10: R13.13] Diagnosis: Urge incontinence[ICD10: N39.41] Diagnosis: Gastro-esophageal reflux disease without esophagitis[ICD10: K21.9] Carleen Anaya MD [facility] CPT-4: 77748 05/21/2016 ([id number]) 68271 EST. PATIENT, LEVEL III Diagnosis: Gastro-esophageal reflux disease without esophagitis[ICD10: K21.9] Carleen Anaya MD [facility] CPT-4: 55312 05/07/2016 ([id number]) 73678 EST. PATIENT, LEVEL III Diagnosis: Acute laryngopharyngitis[ICD10: J06.0] Diagnosis: Dysphagia, pharyngeal phase[ICD10: R13.13] Diagnosis: Allergic rhinitis due to pollen[ICD10: J30.1] Mimi Anaya MD, [facility] CPT-4: 84305 04/28/2016 ([id number]) Miscellaneous no charge Diagnosis: Acute laryngopharyngitis[ICD10: J06.0] Wendi Anaya MD, [facility] CPT- 4: 26323 04/10/2016 65965 EST. PATIENT, LEVEL IV Diagnosis: Cervicalgia[ICD10: M54.2] Diagnosis: Acute laryngopharyngitis[ICD10: J06.0] Diagnosis: long term care pharmacist (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 of anticoagulants[ICD10: Z79.01] Diagnosis: Other cystitis without hematuria[ICD10: N30.80] Wendi Anaya MD, [facility] CPT-4: 20529 04/07/2016 ([id number]) 06152 EST. PATIENT, LEVEL IV Diagnosis: Essential (primary) hypertension[ICD10: I10] Diagnosis: Hypothyroidism, unspecified[ICD10: E03.9] Diagnosis: Other fatigue[ICD10: R53.83] Diagnosis: Urge incontinence[ICD10: N39.41] Mimi Anaya MD, [facility] CPT- 4: 60632 04/03/2016 ([id number]) 60369 EST. PATIENT, LEVEL IV Diagnosis: Essential (primary) hypertension[ICD10: I10] Diagnosis: Pain in right ankle and joints of right foot[ICD10: M25.571] Diagnosis: Dizziness and giddiness[ICD10: R42] Diagnosis: Tinnitus, bilateral[ICD10: H93.13] Mimi Anaya MD, [facility] CPT- 4: 93548 01/31/2016 ([id number]) 93449 EST. PATIENT, LEVEL IV Diagnosis: Essential (primary) hypertension[ICD10: I10] Diagnosis: Otalgia, right ear[ICD10: H92.01] Diagnosis: Allergic rhinitis due to pollen[ICD10: J30.1] Diagnosis: Hypothyroidism, unspecified[ICD10: E03.9] Mimi Anaya MD, [facility] CPT-4: 55031 11/29/2015 ([id number]) 51310 EST. PATIENT, LEVEL IV Diagnosis: Essential (primary) hypertension[ICD10: I10] Diagnosis: Urge incontinence[ICD10: N39.41] Diagnosis: Unspecified dementia without behavioral disturbance[ICD10: F03.90] Mimi Anaya MD, [facility] CPT-4: 38318 10/01/2015 ([id number]) 77291 EST. PATIENT, LEVEL IV Diagnosis: Essential (primary) hypertension[ICD10: I10] Diagnosis: Hypothyroidism, unspecified[ICD10: E03.9] Diagnosis: Unspecified dementia without behavioral disturbance[ICD10: F03.90] Diagnosis: Urge incontinence[ICD10: N39.41] Mimi Anaya MD, [facility] CPT- 4: 67108 08/30/2015 ([id number]) 52334 EST. PATIENT, LEVEL IV Diagnosis: Essential (primary) hypertension[ICD10: I10] Diagnosis: Hypothyroidism, unspecified[ICD10: E03.9] Diagnosis: Hyperlipidemia, unspecified[ICD10: E78.5] Carleen Anaya MD, [facility] CPT-4: 62044 07/31/2015 ([id number]) 78720 EST. PATIENT, LEVEL IV Diagnosis: Essential (primary) hypertension[ICD10: I10] Diagnosis: long term care pharmacist (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 of anticoagulants[ICD10: Z79.01] Diagnosis: Dizziness and giddiness[ICD10: R42] Carleen Anaya MD, [facility] CPT- 4: 03619 07/03/2015 ([id number]) 30540 EST. PATIENT, LEVEL IV Diagnosis: ESSENTIAL HYPERTENSION[ICD9: 401.9] Diagnosis: MACULAR DEGENERATION[ICD9: 362.50] Diagnosis: Peripheral vascular disease[ICD9: 443.9] Diagnosis: Neuropathy[ICD9: 355.9] Carleen Anaya MD, [facility] CPT-4: 56596 04/10/2015 ([id number]) OFFICE/OUTPATIENT VISIT NEW Diagnosis: ESSENTIAL HYPERTENSION[ICD9: 401.9] Diagnosis: HYPOTHYROIDISM[ICD9: 244.9] Diagnosis: URGE INCONTINENCE[ICD9: 788.31] Diagnosis: Constipation - functional[ICD9: 564.09] [facility] CPT-4: 85760 01/11/2015 Plan of Care Planned Activity Notes Codes Status Date Visit Plan: Sciatica- pt to start on aleve twice daily and cyclobenzaprine x 1 week. Pt is to call if the symptoms do not improve or if they worsen. 03/23/2018 Visit Plan: Sciatica- pt to start on aleve twice daily and cyclobenzaprine x 1 week. Pt is to call if the symptoms do not improve or if they worsen. [id number] - kenalog 03/23/2018 Appointment: [phone] (15 min) Moderate 03/23/2018 Patient Education: Patient [...] of injection. 03/12/2018 App[facility]ment[phone] (30 min) Complex 03/12/2018 Patient Education: [...] symptoms - continue with myrbetric 03/02/2018 Appointment: Héctor Carleen WPtel: [facility] (15 min) Moderate 03/02/2018 Patient Education: Patient Medication Summary Completed 03/02/2018 Appointment: (10 min) Simple 02/09/2018 Visit Plan: Cellulitis - start oral antibiotics as directed, return to clinic as directed, call for acute change in symptoms, worsening redness, warmth, discharge. 02/08/2018 Appointment: Mimi Espinosa WPtel: [phone] [phone] [place] (15 min) Moderate 02/08/2018 Patient Education: [...] sample of myrbetriq 50mg daily. 12/03/2017 Appointment: [place] Carleen WPtel: [facility] (15 min) Moderate 12/03/2017 Patient [...] Wendi Uriostegui WPtel: [facility] (15 min) Moderate 10/27/2017 Patient Education: Patient Medication Summary Completed 10/27/2017 Visit Plan: Pneumonia - Pt has been diagnosed with pneumonia by physical exam. A chest xray has been ordered as have antibiotics. The pt is aware of the diagnosis and the need for acute treatment of this illness. 10/12/2017 Appointment: Wendi Uriostegui WPtel: [facility] (15 min) Moderate 10/12/2017 Patient Education: Patient [...] labs today. 10/06/2017 Appointment: Carleen Anaya WPtel: [facility] (15 min) Moderate 10/06/2017 Patient Education: [...] prn. 08/05/2017 Appointment: Carleen Anaya WPtel: [phone] [facility] (15 min) Moderate 08/05/2017 Patient Education: Patient Medication Summary Completed 08/05/2017 Appointment: Carleen Anaya WPtel: [phone] [facility] (15 min) Moderate 07/14/2017 Visit [...] voltaren gel. 07/06/2017 Appointment: Carleen Anaya WPtel: [phone] [facility] (15 min) Moderate 07/06/2017 Patient Education: [...] today 06/18/2017 Appointment: Carleen Anaya WPtel: [phone] [facility] (15 min) Moderate 06/18/2017 Patient Education: Patient Medication Summary Completed 06/18/2017 Appointment: Nurse Visit 05/12/2017 Care Plan: X-RAY EXAM OF SHOULDER LOINC : 42745-8 Pending 05/12/2017 Visit Plan: Weakness, fatigue, malaise - Discussed with Dr. Anaya - pt sent for IV fluids, will check labs and UA - will treat as indicated - pt is to keep her appointment with her electrical high tension tester for her ECHO and Carotid US. Pt is to follow up with her oncologist. Right shoulder pain after fall - will send for X-ray - The pt is to use prn antiinflammatories to manage acute pain. The patient is to call the office if the pain is worsening or does not improve. 05/11/2017 Appointment: Wend[facility]ostegui [phone] [place] (30 min) Complex 05/11/2017 Patient [...] plan. 04/27/2017 Appointment: [phone] [place] (15 min) Moderate 04/27/2017 Patient [...] heart beat - recommended evaluation by her Poker Dealer - Dr. Butler - I attempted a phone call to the office of Dr. Butler, I had to leave a message on the answering machine. If i don't hear back from Dr. Butler's office, we will need to do a Holter monitor on patient. 04/08/2017 Appointment: Carleen Anaya [phone] (15 min) Moderate 04/08/2017 Patient Education: Patient Medication Summary Completed 04/08/2017 Care Plan: Referral Order SNOMED-CT : [id number] Pending 04/08/2017 Visit Plan: UTI - pt [...] of injection. 03/03/2017 Appointment: Wend[facility]ostegui [phone] (30 min) Complex 03/03/2017 Patient Education: [...] control. 01/05/2017 Appointment: Carleen Anaya WPtel: [phone] [facility] (15 min) Moderate 01/05/2017 Patient Education: Patient Medication Summary Completed 01/05/2017 Visit Plan: Neck Pain- pt to start with aspercreme or biofreeze to neck three times daily and start neck exercises daily. Will send RX - The patient is to call the office if the pain is worsening or does not improve. 12/19/2016 Appointment: Wendi Uriostegui WPtel: [phone] [facility] (30 min) Complex 12/19/2016 Patient Education: Patient [...] improving. 11/13/2016 Appointment: Carleen Anaya [facility]el[phone] (15 min) Moderate 11/13/2016 Patient Education: Patient Medication Summary Completed 11/13/2016 Visit Plan: Insomnia -extended release melatonin - you can take up to 10mg of melatonin sleepy time tea - - use warm milk in the tea. Right shoulder - pt to continue with therapy, anti-inflammatory 10/16/2016 Appointment: Carleen Anaya WPtel: [phone] [facility] [place] (15 min) Moderate 10/16/2016 Patient Education: [...] pt. 10/06/2016 Appointment: Carleen Anaya [facility]Ptel: [phone] [place] (15 min) Moderate 10/06/2016 Patient Education: Patient Medication Summary Completed 10/06/2016 Care Plan: X-RAY EXAM OF SHOULDER LOINC : 55286-9 Pending 10/06/2016 Appointment: Carleen Anaya WPtel: [phone] [facility] (30 min) Complex 10/01/2016 [phone] Patient informed. Completed 07/08/2016 Visit [...] Carleen Anaya WPtel: [facility] (15 min) Moderate 07/02/2016 Patient Education: Patient Medication Summary Completed 07/02/2016 Care Plan: Referral Order SNOMED-CT : [id number] Pending 07/02/2016 Visit Plan: Hypertension - well [...] planning on getting a flu shot at [facility] and she is due for another pneumovax- last pneumovax was in 2008 - so she can have pneumovax now and the prevnar in 2017 05/21/2016 Appointment: Carleen Anaya WPtel: [phone] (15 min) Moderate 05/21/2016 Patient Education: Patient Medication Summary Completed 05/21/2016 Referral: Nas[place] [address] Referral Completed 05/12/2016 Visit Plan: Esophageal [...] daily 05/07/2016 Appointment: Carleen Anaya WPtel: [address] (15 min) Moderate 05/07/2016 Patient Education: Patient Medication Summary Completed 05/07/2016 Appointment: Mimi Espinosa WPtel: [phone] (30 min) Complex 05/01/2016 Visit Plan: [...] Kenalog injection today in the office Sore csaybi-zqjkspthd-oqctx dexilant-refer to Dr Del Real for evaluation 04/28/2016 Appointment: Mimi Espinosa WPtel: [phone] (30 min) Complex 04/28/2016 Patient Education: [...] medication switched. 04/07/2016 Appointment: Wendi Uriostegui WPtel: [phone] [facility] (30 min) Complex 04/07/2016 Patient Education: Patient [...] atigue-check labs including UA-culture if positive Urge zhhtcnbmzmxz-vepcnvspz-mokdh UA with C&S 04/03/2016 Appointment: Mimi Espinosa WPtel: [phone] [phone] (30 min) Complex 04/03/2016 Patient Education: Patient Medication Summary Completed 04/03/2016 Visit Plan: Hypertension - well controlled - continue with current medications, continue with no added salt diet. Pt has been encouraged to exercise daily. The pt has been advised to call the office if there are any acute concerns about change in blood pressure readings at home. Mdqecdbgc-bknsxygy-lhkvinls MRI brain Right ankle ekeq-siqrynf-clgi right ankle- plan to refer to physical therapy if appropriate 01/31/2016 Appointment: Mimi Espinosa WPtel: [facility] (30 min) Complex 01/31/2016 Patient Education: [...] An[facility]el[phone] (15 min) Moderate 07/31/2015 Patient Education: Patient Medication Summary Completed 07/31/2015 Patient Education: Hypertension Completed 07/31/2015 Care Plan: Referral Order SNOMED-CT : [id number] Ordered 07/31/2015 Visit Plan: Hypertension - uncontrolled [...] on Nortryptyline 07/03/2015 Appointment: Carleen Anaya [facility]Ptel[phone] (15 min) Moderate 07/03/2015 Patient Education: Patient [...] 01/11/2015 Ref[phone] [place] Referral Appointment Requested Referral: External, Ordering Provider Referral Appointment Requested Referral: External, Ordering Provider Referral [facility] [place] Referral Appointment Requested Instructions Comment add z-pack, continue cefdinir - take a [...] need for acute treatment of this illness. repeat INR in 2 weeks repeat a [...] Kenalog injection today in the office Sore hergqf-qlhbqqdwf-tkvdn dexilant-refer to Dr Del Real for evaluation . Low back pain- The pt is [...] heart beat - recommended evaluation by her Poker Dealer - Dr. Butler - I attempted a [...] loss-doing well with namenda-continue 10mg twice daily Flonase 1 spray each nare daily . [...] sample of myrbetriq 50mg daily. CHECK LABS CHECK URINE . Hypertension - [...] Fatigue-check labs including UA-culture if positive Urge nllhxzyponli-kqrhmtdav-rkmqd UA with C&S . Hypertension - well controlled - continue with current medications, continue with no added salt diet. Pt has been encouraged to exercise daily. The pt has been advised to call the office if there are any acute concerns about change in blood pressure readings at home. Jjzefvtxu-uzfgrnem-gouplxlf MRI brain Right ankle alwv-wfhiczc-gfpg right ankle-plan to refer to physical therapy [...] daily x 3 days and prn. . Hypertension - well controlled - continue [...] do not improve or if they worsen. [id number] - kenalog Stop Oxybutynin chloride ER. Start [...] assure normal liver response to medications. . Hypertension - uncontrolled - the patient's [...] is to keep her appointment with her electrical high tension tester for her ECHO and Carotid US. [...] on carafate 1 gram four times daily Power Pudding: equal parts of prune [...] planning on getting a flu shot at [facility] and she is due for another pneumovax- last pneumovax was in 2008 - so she can have pneumovax now and the prevnar in 2016
--- OUTSIDE RECORDS SUMMARY | 2019-01-01 13:18 | XMS REPORT | CCD ---
Author Author [facility] Organization [facility] Address [address] [place] [address] Phone Care Team Providers Care Comfort Filler Name Role Phone PP Unavailable CCM Unavailable Summary Purpose Interface Exchange Insurance Providers Payer name Policy type / Coverage type Covered green party ID Effective Begin Date Effective End Date WPS Medicare Part B Medicare Part B [id number] Unknown Unknown [facility] Medicare Part B [id number] Unknown Unknown Family history Father Diagnosis Age At Onset Cancer Unknown Arthritis Unknown Mother Diagnosis Age At Onset Breast cancer Unknown Arthritis Unknown Social History Social History Element Codes Description Effective Dates Marital status Unknown 01/11/2015 Number of children Unknown 3 01/11/2015 Employment Unknown Retired 01/11/[address]: 8210695 Quit over 10 years ago 1950 01/11/[address]: 287181919 Never drinks alcohol 01/11/2015 Allergies, Adverse Reactions, Alerts Substance Reaction Codes Entered Date Inactivated Date Status * OTHER REACTION - SEE ANSWER BOX vancogein red Unknown 01/11/2015 No Inactive Date Active CODEINE RxNorm: 2670 01/11/2015 No Inactive Date Active demerol RxNorm: 200154 08/30/2015 No Inactive Date Active hydrocodone Unknown [...] ICD-9: V04.81 ICD-10: Z23 Active 07/02/2015 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 ICD-10: [...] Fill Instructions Synthroid 200 mcg tablet RxNorm: 472891 1 Tablet(s) PO TIW [facility] 04/05/2018 08/02/2018 Active brand name only- Alternate with 175mcg dose schedule Synthroid 175 mcg tablet RxNorm: 419246 1 Tablet(s) PO 4 times a week Thu04/05/2018 09/01/2018 Active alternate with 175mcg order cyclobenzaprine 5 mg tablet RxNorm: 327885 1/2 Tablet(s) PO TID 03/23/2018 04/01/2018 Inactive tramadol 50 mg tablet RxNorm: 570948 1 Tablet(s) PO TID as needed 03/17/2018 No Stop Date Active Kenalog 40 mg/mL suspension for injection RxNorm: 0122866 2 Milliliter(s) Inj 03/12/2018 03/12/2018 Inactive prednisone 20 mg tablet RxNorm: 776957 2 Tablet(s) PO daily 03/11/2018 03/10/2018 Inactive prednisone 20 mg tablet RxNorm: 470134 2 Tablet(s) PO daily 03/11/2018 03/15/2018 Inactive losartan 25 mg tablet RxNorm: 282356 TAKE ONE TABLET BY MOUTH ONCE DAILY 02/16/2018 No Stop Date Active doxycycline hyclate 100 mg tablet RxNorm: 9910839 1 Tablet(s) PO BID 02/08/2018 02/14/2018 Inactive ceftriaxone 500 mg solution for injection RxNorm: 4139780 Inj 02/08/2018 02/08/2018 Inactive dapsone 25 mg tablet RxNorm: 933818 2 Tablet(s) PO daily 02/08/2018 02/12/2018 Inactive metoprolol succinate ER 100 mg tablet,extended release 24 hr RxNorm: 693614 TAKE ONE TABLET BY MOUTH ONCE DAILY 01/05/2018 No Stop Date Active Synthroid 175 mcg tablet RxNorm: 553608 1 Tablet(s) PO daily 01/01/2018 03/31/2018 Inactive Synthroid 175 mcg tablet RxNorm: 446294 1 Tablet(s) PO daily 01/01/2018 12/31/2017 Inactive Myrbetriq 50 mg tablet,extended release RxNorm: 1759514 1 Tablet(s) PO daily 12/03/2017 01/01/2018 Inactive Zithromax Z-Oliver 250 mg tablet RxNorm: 787584 1 Tablet(s) PO UD 10/12/2017 10/16/2017 Inactive Tessalon Perles 100 mg capsule RxNorm: 484830 2 Capsule(s) PO TID as needed 10/12/2017 10/16/2017 Inactive prednisone 20 mg tablet RxNorm: 450642 2 Tablet(s) PO daily 10/12/2017 10/16/2017 Inactive cefdinir 300 mg capsule RxNorm: 689989 1 Capsule(s) PO BID 10/08/2017 10/07/2017 Inactive Synthroid 150 mcg tablet RxNorm: 247619 1 Tablet(s) PO daily in morning, except 1/2 Tablet PO Thu, Sat, take 30 minutes before meal 10/08/2017 04/04/2018 Inactive brand name only cefdinir 300 mg capsule RxNorm: 386423 1 Capsule(s) PO BID 10/08/2017 10/14/2017 Inactive Synthroid 150 mcg tablet RxNorm: 174613 1 Tablet(s) PO daily in morning, take 30 minutes before meal 10/06/2017 10/07/2017 Inactive brand name only cefdinir 300 mg capsule RxNorm: 190721 1 Capsule(s) PO BID 08/24/2017 08/30/2017 Inactive Zithromax Z-Oliver 250 mg tablet RxNorm: 633071 1 Tablet(s) PO UD 08/20/2017 08/19/2017 Inactive Zithromax Z-Oliver 250 mg tablet RxNorm: 764885 1 Tablet(s) PO UD 08/20/2017 08/24/2017 Inactive Coumadin 3 mg tablet RxNorm: 840323 1 Tablet(s) PO Thursday, , , and Thu- Managed by Dr. Bowman -Managed by Dr. Bowman 08/05/2017 No Stop Date Active Synthroid 150 mcg tablet RxNorm: 695116 1 Tablet(s) PO daily in morning, take 30 minutes before meal 08/05/2017 08/04/2017 Inactive Synthroid 150 mcg tablet RxNorm: 833871 1 Tablet(s) PO daily in morning, take 30 minutes before meal 08/05/2017 10/05/2017 Inactive pantoprazole 40 mg tablet,delayed release RxNorm: 889505 1 Tablet(s) PO BID 07/08/2017 07/02/2018 Active pantoprazole 40 mg tablet,delayed release RxNorm: 253732 1 Tablet(s) PO BID 07/08/2017 07/07/2017 Inactive metoprolol succinate ER 100 mg tablet,extended release 24 hr RxNorm: 826606 TAKE ONE TABLET BY MOUTH ONCE DAILY 07/08/2017 01/04/2018 Inactive Coumadin 3 mg tablet RxNorm: 313747 1 Tablet(s) PO QPM -Managed by Dr. Bowman 07/06/2017 08/04/2017 Inactive Coumadin 3 mg tablet RxNorm: 591721 1 Tablet(s) PO QPM at 6:00pm Managed by Dr Bowman 1/2 pill on thursday and thursday, full pill other days 06/18/2017 07/05/2017 Inactive Voltaren 1 % topical gel RxNorm: 197028 2 TOP QID 06/18/2017 10/15/2017 Inactive losartan 25 mg tablet RxNorm: 631507 1 Tablet(s) PO daily TAKE ONE TABLET BY MOUTH ONCE DAILY 05/08/2017 11/03/2017 Inactive Micro-K 10 10 mEq capsule,extended release RxNorm: 074419 1 Capsule(s) PO daily 05/08/2017 12/02/2017 Inactive Synthroid 137 mcg tablet RxNorm: 352344 1 Tablet(s) PO QAM 05/08/2017 08/04/2017 Inactive Dose increased 04/14/17 pravastatin 10 mg tablet RxNorm: 700285 1 Tablet(s) PO daily TAKE ONE TABLET BY MOUTH ONCE DAILY 05/08/2017 12/02/2017 Inactive Namenda 10 mg tablet RxNorm: 758414 TAKE ONE TABLET BY MOUTH TWICE DAILY 05/07/2017 12/02/2017 Inactive Keflex 500 mg capsule RxNorm: 590955 1 Capsule(s) PO TID 04/27/2017 05/03/2017 Inactive Synthroid 137 mcg tablet RxNorm: 615378 1 Tablet(s) PO QAM 04/14/2017 04/13/2017 Inactive Vitamin D2 50,000 unit capsule RxNorm: 085168 1 Capsule(s) PO QW 04/14/2017 12/02/2017 Inactive Synthroid 137 mcg tablet RxNorm: 460886 1 Tablet(s) PO QAM 04/14/2017 05/07/2017 Inactive losartan 25 mg tablet RxNorm: 476567 TAKE ONE TABLET BY MOUTH ONCE DAILY 03/23/2017 05/07/2017 Inactive Synthroid 125 mcg tablet RxNorm: 887459 TAKE ONE TABLET BY MOUTH ONCE DAILY 03/12/2017 04/12/2017 Inactive ciprofloxacin 500 mg tablet RxNorm: 796642 1 Tablet(s) PO BID 2017 03/13/2017 Inactive prednisone 20 mg tablet RxNorm: 602828 2 Tablet(s) PO daily 03/03/2017 03/07/2017 Inactive tramadol 50 mg tablet RxNorm: 467753 1/2 Tablet(s) PO TID as needed 03/03/2017 12/02/2017 Inactive pravastatin 10 mg tablet RxNorm: 286826 TAKE ONE TABLET BY MOUTH ONCE DAILY 01/19/2017 05/07/2017 Inactive nortriptyline 10 mg capsule RxNorm: 818220 TAKE ONE CAPSULE BY MOUTH ONCE DAILY IN THE EVENING 01/14/2017 12/02/2017 Inactive Voltaren 1 % topical gel RxNorm: 188348 TOP QID 12/22/2016 02/19/2017 Inactive Voltaren 1 % topical gel RxNorm: 944075 TOP QID 12/22/2016 12/21/2016 Inactive prednisone 20 mg tablet RxNorm: 269763 2 Tablet(s) PO daily 12/19/2016 12/23/2016 Inactive cyclobenzaprine 5 mg tablet RxNorm: 992795 1/2 Tablet(s) PO BID as needed 12/19/2016 12/23/2016 Inactive Flector 1.3 % transdermal 12 hour patch RxNorm: 574745 1 Patch TOP every 12 hours as needed 12/19/2016 12/02/2017 Inactive losartan 25 mg tablet RxNorm: 449535 1 Tablet(s) PO daily TAKE ONE TABLET BY MOUTH ONCE DAILY 11/13/2016 03/22/2017 Inactive Namenda 10 mg tablet RxNorm: 799059 TAKE ONE TABLET BY MOUTH TWICE DAILY 10/28/2016 04/25/2017 Inactive nortriptyline 10 mg capsule RxNorm: 193577 TAKE ONE CAPSULE BY MOUTH ONCE DAILY IN THE EVENING 10/13/2016 01/10/2017 Inactive ceftriaxone 500 mg solution for injection RxNorm: 8086955 Inj 10/06/2016 10/06/2016 Inactive cefdinir 300 mg capsule RxNorm: 033143 1 Capsule(s) PO BID 10/06/2016 10/12/2016 Inactive prednisone 20 mg tablet RxNorm: 714841 2 Tablet(s) PO daily 10/06/2016 10/08/2016 Inactive ProAir RespiClick 90 mcg/actuation breath activated RxNorm: 6338093 2 INH TID x 3 days then one inhale tid x 3 days then prn shortness of breath 10/06/2016 11/04/2016 Inactive Kenalog 40 mg/mL suspension for injection RxNorm: 8920667 1 Milliliter(s) Inj 10/06/2016 10/06/2016 Inactive Myrbetriq 50 mg tablet,extended release RxNorm: 9545534 1 Tablet(s) PO daily 09/11/2016 11/12/2016 Inactive Namenda 10 mg tablet RxNorm: 540585 TAKE ONE TABLET BY MOUTH TWICE DAILY 07/25/2016 10/22/2016 Inactive hydrochlorothiazide 25 mg tablet RxNorm: 121369 1 Tablet(s) PO daily 07/25/2016 12/02/2017 Inactive Synthroid 125 mcg tablet RxNorm: 213580 TAKE ONE TABLET BY MOUTH ONCE DAILY 07/14/2016 03/10/2017 Inactive losartan 25 mg tablet RxNorm: 726996 TAKE ONE TABLET BY MOUTH ONCE DAILY 07/07/2016 11/12/2016 Inactive metoprolol succinate ER 100 mg tablet,extended release 24 hr RxNorm: 054780 1 Tablet(s) PO daily 06/16/2016 06/10/2017 Inactive nortriptyline 10 mg capsule RxNorm: 944725 Capsule(s) TAKE ONE CAPSULE BY MOUTH ONCE DAILY IN THE EVENING 06/09/2016 10/06/2016 Inactive Myrbetriq 50 mg tablet,extended release RxNorm: 0731034 1 Tablet(s) PO daily 05/21/2016 09/10/2016 Inactive doxycycline hyclate 100 mg tablet RxNorm: 418990 1 Tablet(s) PO BID 05/07/2016 05/13/2016 Inactive Carafate 100 mg/mL oral suspension RxNorm: 511507 10 Milliliter(s) PO QID 05/07/2016 12/02/2017 Inactive Kenalog 40 mg/mL suspension for injection RxNorm: 5004864 Milliliter(s) Inj 04/28/2016 04/28/2016 Inactive losartan 25 mg tablet RxNorm: 654089 TAKE ONE TABLET BY MOUTH ONCE DAILY 04/08/2016 07/06/2016 Inactive ciprofloxacin 500 mg tablet RxNorm: 924836 1 Tablet(s) PO BID 04/07/2016 04/13/2016 Inactive cyclobenzaprine 5 mg tablet RxNorm: 920192 1 Tablet(s) PO TID 04/07/2016 04/16/2016 Inactive Keflex 500 mg capsule RxNorm: 177767 1 Capsule(s) PO TID 04/03/2016 04/02/2016 Inactive Keflex 500 mg capsule RxNorm: 191859 1 Capsule(s) PO TID 04/03/2016 04/09/2016 Inactive losartan 25 mg tablet RxNorm: 772273 TAKE ONE TABLET BY MOUTH ONCE DAILY 03/06/2016 04/07/2016 Inactive nortriptyline 10 mg capsule RxNorm: 761842 TAKE ONE CAPSULE BY MOUTH ONCE DAILY IN THE EVENING 03/06/2016 06/03/2016 Inactive pravastatin 10 mg tablet RxNorm: 129491 TAKE ONE TABLET BY MOUTH ONCE DAILY 02/04/2016 01/18/2017 Inactive warfarin 4 mg tablet RxNorm: 860349 Tablet(s) PO q d except 5mg on tue 01/31/2016 06/17/2017 Inactive Myrbetriq 50 mg tablet,extended release RxNorm: 7298029 1 Tablet(s) PO daily 01/17/2016 05/15/2016 Inactive Namenda 10 mg tablet RxNorm: 045440 1 Tablet(s) PO BID 01/01/2016 06/28/2016 Inactive Myrbetriq 50 mg tablet,extended release RxNorm: 0046286 1 Tablet(s) PO daily 12/20/2015 12/20/2015 Inactive Synthroid 125 mcg tablet RxNorm: 305570 1 Tablet(s) PO daily 11/14/2015 07/10/2016 Inactive nortriptyline 10 mg capsule RxNorm: 452762 TAKE ONE CAPSULE BY MOUTH ONCE DAILY IN THE EVENING 11/05/2015 03/03/2016 Inactive Myrbetriq 50 mg tablet,extended release RxNorm: 2964010 1 Tablet(s) PO daily 10/01/2015 12/19/2015 Inactive Namenda 10 mg tablet RxNorm: 814577 1 Tablet(s) PO BID 08/30/2015 12/31/2015 Inactive Vesicare 10 mg tablet RxNorm: 850068 1 Tablet(s) PO daily 08/30/2015 09/30/2015 Inactive warfarin 4 mg tablet RxNorm: 775116 Tablet(s) PO 08/30/2015 01/30/2016 Inactive Synthroid 125 mcg tablet RxNorm: 150931 1 Tablet(s) PO daily 08/02/2015 11/13/2015 Inactive Synthroid 125 mcg tablet RxNorm: 247983 Tablet(s) PO 08/01/2015 08/01/2015 Inactive losartan 25 mg tablet RxNorm: 433677 1 Tablet(s) PO daily 07/31/2015 02/25/2016 Inactive pravastatin 10 mg tablet RxNorm: 004744 1 Tablet(s) PO daily 07/23/2015 01/18/2016 Inactive hydrochlorothiazide 25 mg tablet RxNorm: 446369 1 Tablet(s) PO daily 07/19/2015 07/12/2016 Inactive nortriptyline 10 mg capsule RxNorm: 019174 1 Capsule(s) PO QPM 07/03/2015 10/30/2015 Inactive metoprolol succinate ER 100 mg tablet,extended release 24 hr RxNorm: 625987 1 Tablet(s) PO daily 06/06/2015 05/30/2016 Inactive pravastatin 10 mg tablet RxNorm: 237426 1 Tablet(s) PO daily 01/22/2015 07/20/2015 Inactive aspirin 81 mg capsule,delayed release RxNorm: 015748 1 Capsule(s) PO daily 01/11/2015 02/09/2015 Inactive Fosamax 5 mg tablet RxNorm: 780623 1 Tablet(s) QW 01/11/2015 12/02/2017 Inactive oxybutynin chloride ER 10 mg tablet,extended release 24 hr RxNorm: 796590 1 Tablet(s) PO daily 01/11/2015 08/29/2015 Inactive Coumadin 4 mg tablet RxNorm: 564038 1 Tablet(s) PO daily on M,W,F No Start Date Active Vitamin D2 oral RxNorm: 4018 oral No Start Date Active Colace 100 mg capsule RxNorm: 4172356 Capsule(s) PO No Start Date Active Claritin oral RxNorm: 59323 oral No Start Date Active PreserVision AREDS 2 oral RxNorm: 4183709 oral No Start Date Active pravastatin 10 mg tablet RxNorm: 288131 1 Tablet(s) PO daily No Start Date 01/21/2015 Inactive Tylenol PM oral RxNorm: 975477 oral No Start Date 04/07/2017 Inactive Vitamin D2 50,000 unit capsule RxNorm: 613040 1 Capsule(s) PO QW No Start Date 04/13/2017 Inactive tramadol 50 mg tablet RxNorm: 695940 1 Tablet(s) PO TID as needed No Start Date 03/16/2018 Inactive Micro-K 10 10 mEq capsule,extended release RxNorm: 583078 1 Capsule(s) PO daily No Start Date 05/07/2017 Inactive Synthroid 100 mcg tablet RxNorm: 600058 Tablet(s) PO No Start Date 07/31/2015 Inactive hydrochlorothiazide 25 mg tablet RxNorm: 004611 1 Tablet(s) PO daily No Start Date 07/18/2015 Inactive warfarin 2 mg tablet RxNorm: 828674 Tablet(s) PO No Start Date 08/29/2015 Inactive metoprolol succinate ER 100 mg tablet,extended release 24 hr RxNorm: 936927 1 Tablet(s) PO daily No Start Date 06/05/2015 Inactive warfarin 3 mg tablet RxNorm: 894020 Tablet(s) PO No Start Date 08/29/2015 Inactive Coumadin 3 mg tablet RxNorm: 542825 1 Tablet(s) PO QPM at 6:00pm Managed by Dr Bowman No Start Date 06/17/2017 Inactive Medication Administered Medication Codes Instructions Start Date Status Kenalog 40 mg/mL suspension for injection RxNorm: 5513807 2Milliliter 03/12/2018 No longer Active ceftriaxone 500 mg solution for injection RxNorm: 3045180 02/08/2018 No longer Active ceftriaxone 500 mg solution for injection RxNorm: 9187122 10/06/2016 No longer Active Kenalog 40 mg/mL suspension for injection RxNorm: 8539354 1Milliliter 10/06/2016 No longer Active Kenalog 40 mg/mL suspension for injection RxNorm: 7551043 Milliliter 04/28/2016 No longer Active Immunizations Vaccine Codes Date Status Influenza CVX: 141 06/18/2017 completed Influenza CVX: 141 06/10/2016 completed Pneumococcal CVX: 133 05/29/2016 completed Influenza CVX: 141 07/03/2015 completed Assessments Condition Codes Effective Dates Sciatica, right side ICD-10: M54.31 ICD-9: 724.3 03/23/2018 Lumbago with sciatica, right side ICD-10: M54.41 ICD-9: 724.3 03/23/2018 Sacroiliitis, not elsewhere classified ICD-10: M46.1 ICD-9: [...] Other fatigue ICD-10: R53.83 ICD-9: 780.79 06/18/2017 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 ICD-9: [...] (3rd IS) 3.19 uIU/mL 10/06/2017 Free T4 Bnm508 FREE T4 1.64 ng/dL 10/06/2017 Free T4 Qaq105 FREE T4 1.03 ng/dL 08/05/2017 Tsh Ord6 [...] Ord30 C/HDL 3.7 Ratio 04/09/2017 Free T4 Vxh957 FREE T4 0.97 ng/dL 04/09/2017 Tibc Ord40 Iron 36 ug/dl 04/09/2017 Tibc Ord40 UIBC 281 ug/dL 04/09/2017 Tibc Ord40 TIBC 317 ug/dL 04/09/2017 Tibc Ord40 Fe-%Sat 11.4 % 04/09/2017 Comp Metabolic Vah390 NA 136 mEq/L 04/09/2017 Comp Metabolic Nmb195 K 3.9 mEq/L 04/09/2017 Comp Metabolic Zee217 CL 98 mEq/L 04/09/2017 Comp Metabolic Gwc943 CO2 28.0 mEq/L 04/09/2017 Comp Metabolic Yqd633 ANION GAP 14 04/09/2017 Comp Metabolic Bvw639 GLUCOSE 90 mg/dL 04/09/2017 Comp Metabolic Wmv175 Creat 0.6 mg/dL 04/09/2017 Comp Metabolic Yyd847 eGFR 102 ml/min/1.73m2 04/09/2017 Comp Metabolic Ruy916 BUN 9 mg/dL 04/09/2017 Comp Metabolic Tjd947 B/C Ratio 15.3 Ratio 04/09/2017 Comp Metabolic Qxc734 CALCIUM 8.8 mg/dL 04/09/2017 Comp Metabolic Lzw058 ALK PHOS 102 U/L 04/09/2017 Comp Metabolic Qeh471 AST(SGOT) 18 U/L 04/09/2017 Comp Metabolic Wir893 ALT(SGPT) 14 U/L 04/09/2017 Comp Metabolic Kfm637 BILI T 0.4 mg/dL 04/09/2017 Comp Metabolic Vpy225 ALBUMIN 3.9 g/dL 04/09/2017 Comp Metabolic Txx510 TPRO 6.3 g/dL 04/09/2017 Comp Metabolic Zkd424 GLOB 2.4 g/dL 04/09/2017 Comp Metabolic Ryl703 A/G Ratio 1.7 Ratio 04/09/2017 Comp Metabolic Zbg635 Osmo 270 mOsmo 04/09/2017 Vitamin D 25 Oh Rza5855 VITAMIN D, 25 HYDROXY 34.31 ng/mL 04/09/2017 [...] 28.9 pg 04/09/2017 Cbc With Differential Ord2 Sauk% 8.8 % 04/09/2017 Cbc With Differential Ord2 [...] 1.22 K/ul 04/09/2017 Cbc With Differential Ord2 [place] ABS# 0.7 K/ul 04/09/2017 Cbc With Differential Ord2 Eos ABS# 0.1 K/ul 04/09/2017 Cbc With Differential Ord2 Baso ABS# 0.0 K/ul 04/09/2017 Urine Culture Ucult Complete >100,000 col/ml aerobic growth sent to ref lab 03/05/2017 Pt Otx2439 PT 24.2 seconds 04/14/2016 Pt Kqq9261 INR 2.3 04/14/2016 Pt Rjc4405 Low Intensity - 1.5-2.0 04/14/2016 Pt Ocn0988 Mod intensity - 2.0-3.0 04/14/2016 Pt Oft9379 Hi intensity - 3.0-4.0 04/14/2016 Pt Wdw9361 PT 31.3 seconds 04/10/2016 Pt Boy8839 INR 3.3 04/10/2016 Pt Dom2048 Low Intensity - 1.5-2.0 04/10/2016 Pt Fxa0978 Mod intensity - 2.0-3.0 04/10/2016 Pt Cci7337 Hi intensity - 3.0-4.0 04/10/2016 C RAP A SC [id number] Strep A Negative 04/10/2016 Urine Culture Ucult Complete >100,000 col/ml aerobic growth sent to ref lab 04/04/2016 Comp Metabolic Bml065 NA 136 mEq/L 04/03/2016 Comp Metabolic Cvh531 K 3.9 mEq/L 04/03/2016 Comp Metabolic Vpy971 CL 99 mEq/L 04/03/2016 Comp Metabolic Zts064 CO2 32.0 mEq/L 04/03/2016 Comp Metabolic Whq490 ANION GAP 9 04/03/2016 Comp Metabolic Wqe854 GLUCOSE 88 mg/dL 04/03/2016 Comp Metabolic Vuh177 Creat 0.6 mg/dL 04/03/2016 Comp Metabolic Fez993 eGFR 93 ml/min/1.73m2 04/03/2016 Comp Metabolic Fye294 BUN 15 mg/dL 04/03/2016 Comp Metabolic Fqc232 B/C Ratio 23.4 Ratio 04/03/2016 Comp Metabolic Sqs834 CALCIUM 8.7 mg/dL 04/03/2016 Comp Metabolic Ffg175 ALK PHOS 100 U/L 04/03/2016 Comp Metabolic Vca760 AST(SGOT) 28 U/L 04/03/2016 Comp Metabolic Vkr154 ALT(SGPT) 39 U/L 04/03/2016 Comp Metabolic Pqs305 BILI T 0.5 mg/dL 04/03/2016 Comp Metabolic Tcc717 ALBUMIN 4.1 g/dL 04/03/2016 Comp Metabolic Opz140 TPRO 6.6 g/dL 04/03/2016 Comp Metabolic Ixl897 GLOB 2.5 g/dL 04/03/2016 Comp Metabolic Fwx746 A/G Ratio 1.7 Ratio 04/03/2016 Comp Metabolic Eih170 Osmo 272 mOsmo 04/03/2016 Cbc With Differential [...] 15.8 % 04/03/2016 Cbc With Differential Ord2 Sau[place]% 11.3 % 04/03/2016 Cbc With Differential Ord2 [...] 1.15 K/ul 04/03/2016 Cbc With Differential Ord2 [place] ABS# 0.8 K/ul 04/03/2016 Cbc With Differential Ord2 Eos ABS# 0.2 K/ul 04/03/2016 Cbc With Differential Ord2 Baso ABS# 0.0 K/ul 04/03/2016 Tsh Ord6 hTSH II 3.06 uIU/mL 04/03/2016 Free T4 Tyr846 FREE T4 0.99 ng/dL 04/03/2016 Free T4 Nuc607 FREE T4 0.81 ng/dL 07/31/2015 Comp Metabolic Hln388 NA 136 mEq/L 07/31/2015 Comp Metabolic Qdc326 K 3.8 mEq/L 07/31/2015 Comp Metabolic Bns149 CL 97 mEq/L 07/31/2015 Comp Metabolic Svr242 CO2 29.0 mEq/L 07/31/2015 Comp Metabolic Okd335 ANION GAP 14 07/31/2015 Comp Metabolic Izb729 GLUCOSE 90 mg/dL 07/31/2015 Comp Metabolic Eui161 Creat 0.7 mg/dL 07/31/2015 Comp Metabolic Bln734 eGFR 80 ml/min/1.73m2 07/31/2015 Comp Metabolic Yud529 BUN 8 mg/dL 07/31/2015 Comp Metabolic Bpy167 B/C Ratio 11.0 Ratio 07/31/2015 Comp Metabolic Pqv889 CALCIUM 8.9 mg/dL 07/31/2015 Comp Metabolic Its744 ALK PHOS 102 U/L 07/31/2015 Comp Metabolic Rua329 AST(SGOT) 22 U/L 07/31/2015 Comp Metabolic Jiv314 ALT(SGPT) 14 U/L 07/31/2015 Comp Metabolic Izh619 BILI T 0.5 mg/dL 07/31/2015 Comp Metabolic Jmb732 ALBUMIN 4.4 g/dL 07/31/2015 Comp Metabolic Gml664 TPRO 6.7 g/dL 07/31/2015 Comp Metabolic Bky865 GLOB 2.3 g/dL 07/31/2015 Comp Metabolic Gav401 A/G Ratio 1.9 Ratio 07/31/2015 Comp Metabolic Plv406 Osmo 270 mOsmo 07/31/2015 Tsh Ord6 hTSH [...] Lipid Ord30 C/HDL 4.8 Ratio 07/31/2015 Pt Ubc1404 PT 31.9 seconds 07/03/2015 Pt Aja4206 INR 3.2 07/03/2015 Pt Gcp8586 Low Intensity - 1.5-2.0 07/03/2015 Pt Fxe7744 Mod intensity - 2.0-3.0 07/03/2015 Pt Jgp4142 Hi intensity - 3.0-4.0 07/03/2015 Review of [...] Procedures Procedure Codes Date DRAIN/INJECT JOINT/BURSA CPT-4: 14129 03/23/2018 TRIAMCINOLONE ACET INJ NOS CPT-4: J3301 03/23/2018 DRAIN/INJECT JOINT/BURSA CPT-4: 73960 03/12/2018 TRIAMCINOLONE ACET INJ NOS CPT-4: J3301 03/12/2018 ROCEPHIN, PER 250 MG CPT- 4: J0696 02/08/2018 ADMIN INFLUENZA VIRUS VAC CPT-4: G0008 06/18/2017 FLU VACC PRSV FREE INC ANTIG CPT-4: 94121 06/18/2017 URINALYSIS NONAUTO W/O SCOPE CPT-4: 58259 04/27/2017 URINALYSIS NONAUTO W/O SCOPE CPT-4: 33892 2017 DRAIN/INJECT JOINT/BURSA CPT-4: 24439 03/03/2017 TRIAMCINOLONE ACET INJ NOS CPT-4: J3301 03/03/2017 TRIAMCINOLONE ACET INJ NOS CPT-4: J3301 10/06/2016 ROCEPHIN, PER 250 MG CPT- 4: J0696 10/06/2016 THER/PROPH/DIAG INJ SC/IM CPT-4: 82557 10/06/2016 TRIAMCINOLONE ACET INJ NOS CPT-4: J3301 04/28/2016 URINALYSIS NONAUTO W/O SCOPE CPT-4: 41911 04/03/2016 ADMIN INFLUENZA VIRUS VAC CPT-4: G0008 07/03/2015 FLU VACC PRSV FREE INC ANTIG CPT-4: 59065 07/03/2015 Vital Signs Date Vital 03/23/2018 Blood Pressure 1: 150/88 Code: 8480-6 Heart Rate 1: 80 bpm Height: SpO2: 96% Weight: 03/12/2018 Heart Rate 1: 90 bpm Height: Weight: 03/02/2018 Blood Pressure 1: 128/80 Code: 8480-6 BMI: 28.4 Code: 48042-2 Heart Rate 1: 83 bpm Height: 5'6" SpO2: 93% Weight: 176 lbs 02/08/2018 Blood Pressure 1: 142/80 Code: 8480-6 Heart Rate 1: 78 bpm Height: 5'6" SpO2: 94% 12/03/2017 Blood Pressure 1: 124/78 Code: 8480-6 BMI: 27.9 Code: 04942-1 Heart Rate 1: 70 bpm Height: 5'6" SpO2: 97% Weight: 173 lbs 10/27/2017 Blood Pressure 1: 126/60 Code: 8480-6 Heart Rate 1: 65 bpm Height: 5'6" SpO2: 98% Weight: 10/12/2017 Blood Pressure 1: 126/74 Code: 8480-6 BMI: 26.0 Code: 23302-6 Heart Rate 1: 80 bpm Height: 5'6" SpO2: 89% Weight: 161 lbs 10/06/2017 Blood Pressure 1: 126/70 Code: 8480-6 BMI: 27.2 Code: 82071-7 Heart Rate 1: 73 bpm Height: 5'6" SpO2: 97% Weight: 168 lbs 8 oz 08/05/2017 Blood Pressure 1: 152/78 Code: 8480-6 BMI: 27.1 Code: 74939-7 Heart Rate 1: 73 bpm Height: 5'6" SpO2: 98% Weight: 168 lbs 07/06/2017 Blood Pressure 1: 148/70 Code: 8480-6 BMI: 26.6 Code: 82643-5 Heart Rate 1: 80 bpm Height: 5'6" SpO2: 97% Weight: 165 lbs 06/18/2017 Blood Pressure 1: 132/68 Code: 8480-6 BMI: 26.8 Code: 10653-2 Heart Rate 1: 84 bpm Height: 5'6" [...] 1: 162/84 Code: 8480-6 BMI: 28.1 Code: 24988-8 Heart Rate 1: 98 bpm Height: 5'6" SpO2: 97% Weight: 174 lbs 03/03/2017 Blood Pressure 1: 154/88 Code: 8480-6 Heart Rate 1: 96 bpm Height: SpO2: 95% Weight: 01/05/2017 Blood Pressure 1: 142/78 Code: 8480-6 BMI: 28.9 Code: 02088-4 Heart Rate 1: 94 bpm Height: 5'6" SpO2: 95% Weight: 179 lbs 12/19/2016 Blood Pressure 1: 130/74 Code: 8480-6 Heart Rate 1: 91 bpm Height: 5'6" SpO2: 97% Weight: 11/13/2016 Blood Pressure 1: 152/82 Code: 8480-6 BMI: 28.4 Code: 58308-5 Heart Rate 1: 85 bpm Height: 5'6" SpO2: 96% Weight: 176 lbs 10/16/2016 Blood Pressure 1: 148/72 Code: 8480-6 BMI: 28.4 Code: 99796-0 Heart Rate 1: 90 bpm Height: 5'6" SpO2: 96% Weight: 176 lbs 10/06/2016 Blood Pressure 1: 150/80 Code: 8480-6 BMI: 28.4 Code: 64897-6 Heart Rate 1: 76 bpm Height: 5'6" SpO2: 97% Weight: 176 lbs 07/02/2016 Blood Pressure 1: 142/78 Code: 8480-6 BMI: 27.8 Code: 79076-7 Heart Rate 1: 85 bpm Height: 5'6" SpO2: 97% Weight: 172 lbs 05/21/2016 Blood Pressure 1: 166/80 Code: 8480-6 BMI: 27.9 Code: 04869-0 Heart Rate 1: 79 bpm Height: 5'6" SpO2: 98% Weight: 173 lbs 05/07/2016 Blood Pressure 1: 140/70 Code: 8480-6 BMI: 27.9 Code: 66020-8 Heart Rate 1: 82 bpm Height: 5'6" SpO2: 96% Weight: 173 lbs 04/28/2016 Blood Pressure 1: 128/86 Code: 8480-6 BMI: 27.4 Code: 58918-7 Heart Rate 1: 86 bpm Height: 5'6" SpO2: 96% Temperature: 36.1 (C) / 97.0 (F) Weight: 170 lbs 04/07/2016 Blood Pressure 1: 150/80 Code: 8480-6 Heart Rate 1: 94 bpm Height: SpO2: 95% Weight: 04/03/2016 Blood Pressure 1: 122/76 Code: 8480-6 BMI: 27.4 Code: 90785-5 Heart Rate 1: 84 bpm Height: 5'6" SpO2: 94% Weight: 170 lbs 01/31/2016 Blood Pressure 1: 124/82 Code: 8480-6 BMI: 27.8 Code: 90581-9 Heart Rate 1: 100 bpm Height: 5'6" SpO2: 97% Weight: 172 lbs 11/29/2015 Blood Pressure 1: 140/82 Code: 8480-6 Blood Pressure 1: 130/84 Code: 8480-6 BMI: 27.4 Code: 02514-4 Heart Rate 1: 97 bpm Height: 5'6" SpO2: 95% Weight: 170 lbs 10/01/2015 Blood Pressure 1: 130/80 Code: 8480-6 BMI: 27.4 Code: 39811-1 Heart Rate 1: 82 bpm Height: 5'6" SpO2: 97% Weight: 170 lbs 08/30/2015 Blood Pressure 1: 120/68 Code: 8480-6 BMI: 27.6 Code: 46075-6 Heart Rate 1: 91 bpm Height: 5'6" SpO2: 96% Weight: 171 lbs 07/31/2015 Blood Pressure 1: 180/80 Code: 8480-6 BMI: 27.4 Code: 67002-9 Heart Rate 1: 60 bpm Height: 5'6" SpO2: 94% Weight: 170 lbs 07/03/2015 Blood Pressure 1: 154/80 Code: 8480-6 BMI: 27.4 Code: 28183-8 Heart Rate 1: 98 bpm Height: 5'6" SpO2: 95% Weight: 170 lbs 04/10/2015 Blood Pressure 1: 138/72 Code: 8480-6 BMI: 27.8 Code: 36616-7 Heart Rate 1: 82 bpm Height: 5'6" SpO2: 98% Weight: 172 lbs 01/11/2015 Blood Pressure 1: 132/74 Code: 8480-6 BMI: 28.6 Code: 85160-6 Heart Rate 1: 88 bpm Height: 5'6" [...] data Encounters Encounter Performer Location Codes Date ([id number] 33568 EST. PATIENT, LEVEL III Diagnosis: Lumbago with sciatica, right side[ICD10: M54.41] Diagnosis: Sciatica, right side[ICD10: M54.31] Carleen Anaya MD, [facility] CPT- 4: 76647 03/23/2018 91883 EST. PATIENT, LEVEL III Diagnosis: Low back pain[ICD10: M54.5] Diagnosis: Sacroiliitis, not elsewhere classified[ICD10: M46.1] Wendi Anaya MD, [facility] CPT-4: 14954 03/12/2018 ([id number]) 85962 EST. PATIENT, LEVEL IV Diagnosis: Atrophy of thyroid (acquired)[ICD10: E03.4] Diagnosis: Essential (primary) hypertension[ICD10: I10] Diagnosis: Urge incontinence[ICD10: N39.41] [facility] CPT-4: 65623 03/02/2018 ([id number]) 89864 EST. PATIENT, LEVEL III Diagnosis: Cellulitis of face[ICD10: L03.211] [facility] CPT- 4: 61653 02/08/2018 ([id number]) 91567 EST. PATIENT, LEVEL IV Diagnosis: Atrophy of thyroid (acquired)[ICD10: E03.4] Diagnosis: Essential (primary) hypertension[ICD10: I10] Diagnosis: Urge incontinence[ICD10: N39.41] [facility] CPT-4: 64816 12/03/2017 15988 EST. PATIENT, LEVEL IV Diagnosis: Essential (primary) hypertension[ICD10: I10] Diagnosis: Weakness[ICD10: R53.1] Diagnosis: Low back pain[ICD10: M54.5] Diagnosis: Other allergic rhinitis[ICD10: J30.89] Wendi Anaya MD, [facility] CPT- 4: 89425 10/27/2017 52069 EST. PATIENT, LEVEL IV Diagnosis: Pneumonia due to other specified bacteria[ICD10: J15.8] Diagnosis: Chronic systolic (congestive) heart failure[ICD10: I50.22] Wendi Anaya MD, [facility] CPT-4: 11546 10/12/2017 ([id number]) 89820 EST. PATIENT, LEVEL IV Diagnosis: Atrophy of thyroid (acquired)[ICD10: E03.4] Diagnosis: Nonscarring hair loss, unspecified[ICD10: L65.9] Diagnosis: Essential (primary) hypertension[ICD10: I10] Carlene Anaya MD, [facility] CPT-4: 26595 10/06/2017 ([id number]) 37200 EST. PATIENT, LEVEL IV Diagnosis: Atrophy of thyroid (acquired)[ICD10: E03.4] Diagnosis: Essential (primary) hypertension[ICD10: I10] Diagnosis: Localized edema[ICD10: R60.0] Carleen Anaya MD, [facility] CPT-4: 75653 08/05/2017 ([id number]) 00305 EST. PATIENT, LEVEL IV Diagnosis: Essential (primary) hypertension[ICD10: I10] Diagnosis: Weakness[ICD10: R53.1] Diagnosis: Other fecal abnormalities[ICD10: R19.5] Carleen Anaya MD, [facility] CPT-4: 37696 07/06/2017 ([id number]) 20693 EST. 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 PATIENT, LEVEL IV Diagnosis: Pain in right shoulder[ICD10: M25.511] Diagnosis: Weakness[ICD10: R53.1] Diagnosis: Other fatigue[ICD10: R53.83] Diagnosis: Other malaise[ICD10: R53.81] Wendi Anaya MD, [facility] CPT-4: 05204 05/11/2017 ([id number]) Miscellaneous no charge Diagnosis: Essential (primary) hypertension[ICD10: I10] Mimi Anaya MD, [facility] CPT-4: 26213 04/30/2017 ([id number]) 53620 EST. PATIENT, LEVEL III Diagnosis: Acute recurrent maxillary sinusitis[ICD10: J01.01] Diagnosis: Urinary tract infection, site not specified[ICD10: N39.0] Mimi Anaya MD, [facility] CPT-4: 89421 04/27/2017 ([id number]) 49329 EST. 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 PATIENT, LEVEL III Diagnosis: Low back pain[ICD10: M54.5] Diagnosis: Sacroiliitis, not elsewhere classified[ICD10: M46.1] Wendi Anaya MD, [facility] CPT-4: 30556 03/03/2017 ([id number]) 90416 EST. PATIENT, LEVEL IV Diagnosis: Essential (primary) hypertension[ICD10: I10] Diagnosis: Atrophy of thyroid (acquired)[ICD10: E03.4] Diagnosis: Vascular dementia without behavioral disturbance[ICD10: F01.50] Carleen Anaya MD, [facility] CPT-4: 56490 01/05/2017 36882 EST. PATIENT, LEVEL III Diagnosis: Cervicalgia[ICD10: M54.2] Diagnosis: Other muscle spasm[ICD10: M62.838] eWndi Anaya MD, [facility] CPT-4: 86103 12/19/2016 ([id number]) 22806 EST. PATIENT, LEVEL III Diagnosis: Essential (primary) hypertension[ICD10: I10] Diagnosis: Gastro-esophageal reflux disease without esophagitis[ICD10: K21.9] Carleen Anaya MD [facility] CPT-4: 56229 11/13/2016 ([id number]) 14759 EST. 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 PATIENT, LEVEL IV Diagnosis: Pneumonia due to other specified bacteria[ICD10: J15.8] Diagnosis: Pain in right shoulder[ICD10: M25.511] Diagnosis: Cough[ICD10: R05] Carleen Anaya MD, [facility] CPT-4: 91267 10/06/2016 ([id number]) 74983 EST. PATIENT, LEVEL IV Diagnosis: Essential (primary) hypertension[ICD10: I10] Diagnosis: Personal history of other specified conditions[ICD10: Z87.898] Diagnosis: Unsteadiness on feet[ICD10: R26.81] Carleen Anaya MD [facility] CPT- 4: 59730 07/02/2016 ([id number]) 55615 EST. PATIENT, LEVEL IV Diagnosis: Dysphagia, pharyngeal phase[ICD10: R13.13] Diagnosis: Urge incontinence[ICD10: N39.41] Diagnosis: Gastro-esophageal reflux disease without esophagitis[ICD10: K21.9] Carleen Anaya MD [facility] CPT-4: 05911 05/21/2016 ([id number]) 90000 EST. PATIENT, LEVEL III Diagnosis: Gastro-esophageal reflux disease without esophagitis[ICD10: K21.9] Carleen Anaya MD [facility] CPT-4: 25151 05/07/2016 ([id number]) 61182 EST. PATIENT, LEVEL III Diagnosis: Acute laryngopharyngitis[ICD10: J06.0] Diagnosis: Dysphagia, pharyngeal phase[ICD10: R13.13] Diagnosis: Allergic rhinitis due to pollen[ICD10: J30.1] Mimi Anaya MD, [facility] CPT-4: 96565 04/28/2016 ([id number]) Miscellaneous no charge Diagnosis: Acute laryngopharyngitis[ICD10: J06.0] Wendi Anaya MD, [facility] CPT- 4: 80601 04/10/2016 26951 EST. PATIENT, LEVEL IV Diagnosis: Cervicalgia[ICD10: M54.2] Diagnosis: Acute laryngopharyngitis[ICD10: J06.0] Diagnosis: FCI (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 of anticoagulants[ICD10: Z79.01] Diagnosis: Other cystitis without hematuria[ICD10: N30.80] Wendi Anaya MD, [facility] CPT-4: 16117 04/07/2016 ([id number]) 78018 EST. PATIENT, LEVEL IV Diagnosis: Essential (primary) hypertension[ICD10: I10] Diagnosis: Hypothyroidism, unspecified[ICD10: E03.9] Diagnosis: Other fatigue[ICD10: R53.83] Diagnosis: Urge incontinence[ICD10: N39.41] Mimi Anaya MD, [facility] CPT- 4: 23030 04/03/2016 ([id number]) 54116 EST. PATIENT, LEVEL IV Diagnosis: Essential (primary) hypertension[ICD10: I10] Diagnosis: Pain in right ankle and joints of right foot[ICD10: M25.571] Diagnosis: Dizziness and giddiness[ICD10: R42] Diagnosis: Tinnitus, bilateral[ICD10: H93.13] Mimi Anaya MD, [facility] CPT- 4: 76417 01/31/2016 ([id number]) 53013 EST. PATIENT, LEVEL IV Diagnosis: Essential (primary) hypertension[ICD10: I10] Diagnosis: Otalgia, right ear[ICD10: H92.01] Diagnosis: Allergic rhinitis due to pollen[ICD10: J30.1] Diagnosis: Hypothyroidism, unspecified[ICD10: E03.9] Mimi Anaya MD, [facility] CPT-4: 95353 11/29/2015 ([id number]) 00674 EST. PATIENT, LEVEL IV Diagnosis: Essential (primary) hypertension[ICD10: I10] Diagnosis: Urge incontinence[ICD10: N39.41] Diagnosis: Unspecified dementia without behavioral disturbance[ICD10: F03.90] Mimi Anaya MD, [facility] CPT-4: 26123 10/01/2015 ([id number]) 99113 EST. PATIENT, LEVEL IV Diagnosis: Essential (primary) hypertension[ICD10: I10] Diagnosis: Hypothyroidism, unspecified[ICD10: E03.9] Diagnosis: Unspecified dementia without behavioral disturbance[ICD10: F03.90] Diagnosis: Urge incontinence[ICD10: N39.41] Mimi Anaya MD, [facility] CPT- 4: 06587 08/30/2015 ([id number]) 67625 EST. PATIENT, LEVEL IV Diagnosis: Essential (primary) hypertension[ICD10: I10] Diagnosis: Hypothyroidism, unspecified[ICD10: E03.9] Diagnosis: Hyperlipidemia, unspecified[ICD10: E78.5] Carleen Anaya MD, [facility] CPT-4: 88742 07/31/2015 ([id number]) 68630 EST. PATIENT, LEVEL IV Diagnosis: Essential (primary) hypertension[ICD10: I10] Diagnosis: FCI (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 of anticoagulants[ICD10: Z79.01] Diagnosis: Dizziness and giddiness[ICD10: R42] Carleen Anaya MD, [facility] CPT- 4: 03657 07/03/2015 ([id number]) 22392 EST. PATIENT, LEVEL IV Diagnosis: ESSENTIAL HYPERTENSION[ICD9: 401.9] Diagnosis: MACULAR DEGENERATION[ICD9: 362.50] Diagnosis: Peripheral vascular disease[ICD9: 443.9] Diagnosis: Neuropathy[ICD9: 355.9] [facility] CPT-4: 97284 04/10/2015 ([id number]) OFFICE/OUTPATIENT VISIT NEW Diagnosis: ESSENTIAL HYPERTENSION[ICD9: 401.9] Diagnosis: HYPOTHYROIDISM[ICD9: 244.9] Diagnosis: URGE INCONTINENCE[ICD9: 788.31] Diagnosis: Constipation - functional[ICD9: 564.09] [facility] CPT-4: 95166 01/11/2015 Plan of Care Planned Activity Notes [...] do not improve or if they worsen. [id number] - andrew 03/23/2018 Appointment: Carleen Anaya WPtel: [facility] (15 min) Moderate 03/23/2018 Patient Education: [...] of injection. 03/12/2018 Appointment: Wendi Uriostegui WPtel: [facility]6 [facility] (30 min) Complex 03/12/2018 Patient Education: [...] myrbetric 03/02/2018 Appointment: Carleen Anaya WPtel: [phone] [phone] (15 min) Moderate 03/02/2018 Patient Education: Patient Medication Summary Completed 03/02/2018 Appointment: (10 min) Simple 02/09/2018 Visit Plan: Cellulitis - start oral antibiotics as directed, return to clinic as directed, call for acute change in symptoms, worsening redness, warmth, discharge. 02/08/2018 Appointment: Mimi Espinosa WPtel: [phone] [phone] [place] (15 min) Moderate 02/08/2018 Patient [...] daily. 12/03/2017 Appointment: Carleen Anaya WPtel: [phone] [facility] (15 min) Moderate 12/03/2017 Patient Education: Patient [...] spray. 10/27/2017 Appointment: Wendi Uriostegui WPtel: [phone] [facility] (15 min) Moderate 10/27/2017 Patient Education: Patient Medication Summary Completed 10/27/2017 Visit Plan: Pneumonia - Pt has been diagnosed with pneumonia by physical exam. A chest xray has been ordered as have antibiotics. The pt is aware of the diagnosis and the need for acute treatment of this illness. 10/12/2017 App[facility]ment: [phone] ([facility]) Moderate 10/12/2017 Patient [...] today. 10/06/2017 [facility]ment[phone] (15 min) Moderate 10/06/2017 Patient Education: Patient [...] prn. 08/05/2017 Appointment: Carleen Anaya WPtel: [phone] [facility] (15 min) Moderate 08/05/2017 Patient Education: Patient Medication Summary Completed 08/05/2017 Appointment: Carleen Anaya WPtel: [facility]8 [facility] (15 min) Moderate 07/14/2017 Visit Plan: Hypertension [...] voltaren gel. 07/06/2017 Appointment: Carleen Anaya WPtel: [phone] [facility] (15 min) Moderate 07/06/2017 Patient Education: Patient [...] shot today 06/18/2017 Appointment: Carleen Anaya WPtel: [phone] [facility] [place] (15 min) Moderate 06/18/2017 Patient Education: Patient Medication Summary Completed 06/18/2017 Appointment: Nurse Visit 05/12/2017 Care Plan: X-RAY EXAM OF SHOULDER LOINC : 33718-2 Pending 05/12/2017 Visit Plan: Weakness, fatigue, malaise - Discussed with Dr. Anaya - pt sent for IV fluids, will check labs and UA - will treat as indicated - pt is to keep her appointment with her maintenance analyst for her ECHO and Carotid US. Pt is to follow up with her oncologist. Right shoulder pain after fall - will send for X-ray - The pt is to use prn antiinflammatories to manage acute pain. The patient is to call the office if the pain is worsening or does not improve. 05/11/2017 Appointment: [facility]ui [phone] [place] (30 min) Complex 05/11/2017 [...] of plan. 04/27/2017 Appointment: [phone] [place] (15 min) Moderate 04/27/2017 [...] heart beat - recommended evaluation by her Box Office Manager - Dr. Butler - I attempted a phone call to the office of Dr. Butler, I had to leave a message on the answering machine. If i don't hear back from Dr. Butler's office, we will need to do a Holter monitor on patient. 04/08/2017 Appointment: [phone] (15 min) Moderate 04/08/2017 Patient Education: Patient Medication Summary Completed 04/08/2017 Care Plan: Referral Order SNOMED-CT : [id number] Pending 04/08/2017 Visit Plan: UTI - pt [...] of injection. 03/03/2017 Appointment: Wend[facility]ostegui [facility]el[phone] (30 min) Complex 03/03/2017 Patient [...] of control. 01/05/2017 Appointment: Carleen Anaya WPtel: [facility]6 [facility] (15 min) Moderate 01/05/2017 Patient Education: Patient Medication Summary Completed 01/05/2017 Visit Plan: Neck Pain- pt to start with aspercreme or biofreeze to neck three times daily and start neck exercises daily. Will send RX - The patient is to call the office if the pain is worsening or does not improve. 12/19/2016 Appointment: Wendi Uriostegui WPtel: [facility] (30 min) Complex 12/19/2016 Patient Education: [...] not improving. 11/13/2016 Appointment: Carleen Anaya WPtel: [facility]5 [facility] (15 min) Moderate 11/13/2016 Patient Education: Patient Medication Summary Completed 11/13/2016 Visit Plan: Insomnia -extended release melatonin - you can take up to 10mg of melatonin sleepy time tea - - use warm milk in the tea. Right shoulder - pt to continue with therapy, anti-inflammatory 10/16/2016 Appointment: Carleen Anaya WPtel: [facility]9 [facility] (15 min) Moderate 10/16/2016 Patient Education: Patient [...] pt. 10/06/2016 Appointment: [phone] [facility] [place] (15 min) Moderate 10/06/2016 Patient Education: Patient Medication Summary Completed 10/06/2016 Care Plan: X-RAY EXAM OF SHOULDER LOINC : 66966-2 Pending 10/06/2016 Appointment: Carleen Anaya WPtel: [phone] [facility] [place] (30 min) Complex 10/01/2016 [phone] Patient informed. Completed 07/08/2016 Visit Plan: [...] therapy. 07/02/2016 Appointment: [phone] [facility] [place] (15 min) Moderate 07/02/2016 Patient Education: Patient Medication Summary Completed 07/02/2016 Care Plan: Referral Order SNOMED-CT : [id number] Pending 07/02/2016 Visit Plan: Hypertension - well [...] on getting a flu shot at [facility] and she is due for another pneumovax- last pneumovax was in 2008 - so she can have pneumovax now and the prevnar in 2017 05/21/2016 Appointment: Carleen Anaya WPtel: [facility]0 [address] (15 min) Moderate 05/21/2016 Patient Education: Patient Medication Summary Completed 05/21/2016 Referral: Medardo Del Real [address] Referral Completed 05/12/2016 Visit Plan: Esophageal [...] times daily 05/07/2016 Appointment: Carleen Anaya WPtel: [facility] [address] (15 min) Moderate 05/07/2016 Patient Education: Patient Medication Summary Completed 05/07/2016 Appointment: Mimi Espinosa WPtel: [facility]3 [address] (30 min) Complex 05/01/2016 Visit Plan: [...] Kenalog injection today in the office Sore wuttof-lbnjjwovp-ikdcx dexilant-refer to Dr Del Real for evaluation 04/28/2016 Appointment: Miim Espinosa WPtel: [facility] [place] [phone] (30 min) Complex 04/28/2016 Patient Education: Patient [...] switched. 04/07/2016 Appointment: Wend[facility] Uriostegui [facility]Ptel[phone] [facility] [place] (30 min) Complex 04/07/2016 Patient Education: [...] atigue-check labs including UA-culture if positive Urge izxiqvlzldlm-xutuwaddw-lbehr UA with C&S 04/03/2016 Appointment: Mimi Espinosa WPtel: [phone] [place] (30 min) Complex 04/03/2016 Patient Education: Patient Medication Summary Completed 04/03/2016 Visit Plan: Hypertension - well controlled - continue with current medications, continue with no added salt diet. Pt has been encouraged to exercise daily. The pt has been advised to call the office if there are any acute concerns about change in blood pressure readings at home. Hjmysjpfg-eywgpxzg-fufkoyqz MRI brain Right ankle lurv-sdulgee-yhys right ankle- plan to refer to physical therapy if appropriate 01/31/2016 Appointment: [facility] Espinosa [facility]Ptel[phone] [phone] (30 min) Complex 01/31/2016 Patient [...] medications. 07/31/2015 Appointment: Carleen Anaya WPtel: [phone] [facility] (15 min) Moderate 07/31/2015 Patient Education: Patient Medication Summary Completed 07/31/2015 Patient Education: Hypertension Completed 07/31/2015 Care Plan: Referral Order SNOMED-CT : [id number] Ordered 07/31/2015 Visit Plan: Hypertension - uncontrolled [...] Nortryptyline 07/03/2015 Appointment: [phone] [facility] (15 min) Moderate 07/03/2015 Patient Education: [...] Completed 01/11/2015 Referral: [facility] WPtel: [address] [place] [address] Referral Appointment Requested Referral: External, Ordering Provider Referral Appointment Requested Referral: External, Ordering Provider Referral Relationship Referral: Nasima [address] Referral Appointment Requested Instructions Comment Flonase [...] on getting a flu shot at [facility] and she is due for another [...] heart beat - recommended evaluation by her Box Office Manager - Dr. Butler - I attempted a [...] Kenalog injection today in the office Sore yikyxk-fsnoecxyg-ifdig dexilant-refer to Dr Del Real for evaluation [...] Fatigue-check labs including UA-culture if positive Urge dwvazkhegxxf-dndomtumw-qkttn UA with C&S add z-pack, continue cefdinir [...] change in blood pressure readings at home. Vzwmwiits-afxltmjd-egrgizeh MRI brain Right ankle ywjo-itkzcki-xvyk right ankle-plan to refer to physical therapy [...] do not improve or if they worsen. [id number] - kenalog Stop Oxybutynin chloride ER. Start [...] is to keep her appointment with her maintenance analyst for her ECHO and Carotid US. Pt [...]
[2019-01-01 13:26] VITALS: BP 153/77
== END 2019-01-01 13:26 | disposition home or self-care (01) ==
LOC: EDUNIT# 10:15 → ER 10:17
DX: L03.116 Cellulitis of left lower limb (principal); I25.2 Old myocardial infarction; I10 Essential (primary) hypertension; E78.00 Pure hypercholesterolemia, unspecified; F03.90 Unspecified dementia, unspecified severity, without behavioral disturbance, psychotic disturbance, mood disturbance, and anxiety; E03.9 Hypothyroidism, unspecified; Z85.3 Personal history of malignant neoplasm of breast; Z80.3 Family history of malignant neoplasm of breast; Z87.19 Personal history of other diseases of the digestive system; Z87.891 Personal history of nicotine dependence; Z96.652 Presence of left artificial knee joint; Z88.5 Allergy status to narcotic agent; Z88.6 Allergy status to analgesic agent; Z79.82 Long term (current) use of aspirin; Z79.01 Long term (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 of anticoagulants; Z90.49 Acquired absence of other specified parts of digestive tract; Z90.710 Acquired absence of both cervix and uterus; Z90.89 Acquired absence of other organs; Z95.2 Presence of prosthetic heart valve; Z80.59 Family history of malignant neoplasm of other urinary tract organ; Z80.1 Family history of malignant neoplasm of trachea, bronchus and lung; Z82.49 Family history of ischemic heart disease and other diseases of the circulatory system
CPT/HCPCS: 36415; 73562; 85025; 85652; 86141; 87070; 87205

== ENCOUNTER → 2019-01-21 | Outpatient (CLI) | payer MEDICARE ==
[2019-01-21 14:45] LABS: BASOPHILS % (AUTO) 0 % (0-10); EOSINOPHILS # (AUTO) 0.2 10^3/uL (0.0-0.3); EOSINOPHILS % (AUTO) 4 % (0-10); HEMATOCRIT 38 % (35-52); HEMOGLOBIN 11.8 G/DL (11.5-16.0); LYMPHOCYTES # (AUTO) 0.9 X 10^3 (1.0-4.0); LYMPHOCYTES % (AUTO) 15 % (12-44); MEAN CORPUSCULAR HEMOGLOBIN 29 PG (25-34); MEAN CORPUSCULAR HGB CONC 31 G/DL (32-36); MEAN CORPUSCULAR VOLUME 92 FL (80-99); MEAN PLATELET VOLUME 9.5 FL (7.4-10.4); MONOCYTES # (AUTO) 0.4 X 10^3 (0.0-1.0); MONOCYTES % (AUTO) 8 % (0-12); NEUTROPHILS # (AUTO) 4.3 X 10^3 (1.8-7.8); NEUTROPHILS % (AUTO) 73 % (42-75); PLATELET COUNT 135 10^3/uL (130-400); RED CELL DISTRIBUTION WIDTH 14.5 % (10.0-14.5); WHITE BLOOD COUNT 5.9 10^3/uL (4.3-11.0)
[2019-01-21 15:16] LABS: ALANINE AMINOTRANSFERASE 16 U/L (0-55); ALBUMIN 3.9 GM/DL (3.2-4.5); ALKALINE PHOSPHATASE 83 U/L (40-136); BILIRUBIN,TOTAL 0.3 MG/DL (0.1-1.0); BUN/CREATININE RATIO 14; CALCIUM 8.8 MG/DL (8.5-10.1); CARBON DIOXIDE 28 MMOL/L (21-32); CHLORIDE 104 MMOL/L (98-107); CREATININE SERUM 0.78 MG/DL (0.60-1.30); GFR ESTIMATED > 60; GLUCOSE 114 MG/DL (70-105); POTASSIUM 3.7 MMOL/L (3.6-5.0); SODIUM 141 MMOL/L (135-145); TOTAL PROTEIN 6.5 GM/DL (6.4-8.2)
== END ==
LOC: LAB 14:04
PROVIDERS: ATTEND Dermatology
DX: L08.9 Local infection of the skin and subcutaneous tissue, unspecified (principal)
CPT/HCPCS: 36415; 80053; 85025

== ENCOUNTER → 2019-01-24 | Outpatient (CLI) | payer MEDICARE ==
--- NOTE | 2019-01-24 19:30 | Diagnostic Imaging Report ---
PROCEDURE: CT left lower extremity with contrast. TECHNIQUE: Multiple axial images of the left lower extremity were obtained after intravenous administration of iodinated contrast. Auto Exposure Controls were utilized during the CT exam to meet ALARA standards for radiation dose reduction. INDICATION: Left knee infection. Blisters on top of knee with swelling and redness. CORRELATION STUDY: Radiographs of 01/01/2019. 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 There has been apparent removal of likely previous hardware at the tibial component. There is rather marked metallic artifact from the residual metal. This does significantly limit assessment over the knee. The visualized osseous structures do demonstrate suggestion of diffuse bony demineralization. There is some fragmentation of the superior patella. The quadriceps tendon also appears to be somewhat thickened. Possibility of more superimposed infection in this area is not excluded. Otherwise, definitive bony destructive change is not suggested. Definitive focal drainable soft tissue abscess not visualized in the areas not obscured by artifact. There is presence of asymmetric skin thickening superior and medial to the patella. IMPRESSION: 1. Fairly compromised and limited CT imaging of the left knee owing to extensive metallic artifact. 2. There does appear to be slightly more fragmented appearance about the superior portions of the patella as well as some thickening of the quadriceps tendon in this area. Therefore, the possibility of more focal area of infection is not excluded. Additionally, there does appear to be slight asymmetric soft tissue defect overlying this region. A definitive drainable abscess however is not able to be suggested. Dictated by: Dictated on workstation # [id number]
== END ==
LOC: RAD 16:10
PROVIDERS: ATTEND Dermatology
DX: S80.222A Blister (nonthermal), left knee, initial encounter (principal); L08.9 Local infection of the skin and subcutaneous tissue, unspecified; L53.9 Erythematous condition, unspecified
CPT/HCPCS: 73701

== ENCOUNTER → 2019-03-22 | Outpatient (CLI) | payer MEDICARE ==
[~2019-03-22] MED LIST changes: -CYAN500T2 PO; +CYAN500T62 PO
[2019-03-22 10:27] LABS: BUN/CREATININE RATIO 17; CALCIUM 9.1 MG/DL (8.5-10.1); CARBON DIOXIDE 25 MMOL/L (21-32); CHLORIDE 107 MMOL/L (98-107); CREATININE SERUM 0.77 MG/DL (0.60-1.30); GFR ESTIMATED > 60; GLUCOSE 101 MG/DL (70-105); MAGNESIUM 1.7 MG/DL (1.8-2.4); POTASSIUM 3.8 MMOL/L (3.6-5.0); SODIUM 141 MMOL/L (135-145)
== END ==
LOC: LAB 09:47
PROVIDERS: ATTEND Student in an Organized Health Care Education/Training Program
DX: Z01.89 Encounter for other specified special examinations (principal)
CPT/HCPCS: 80048; 83735

== ENCOUNTER → 2019-05-17 | Outpatient (CLI) | payer MEDICARE ==
[2019-05-17 10:55] LABS: FREE T4 (FREE THYROXINE) 1.7 NG/DL (0.70-1.48)
== END ==
LOC: LAB 10:02
PROVIDERS: ATTEND Family Medicine
DX: E03.9 Hypothyroidism, unspecified (principal)
CPT/HCPCS: 36415; 84439; 84443

== ENCOUNTER 2019-06-14 09:45 | Outpatient (RCR) | payer MEDICARE ==
[2019-03-22 10:49] LABS: INR 2.8 (0.8-1.4); PROTHROMBIN TIME PATIENT 30.3 SEC (12.2-14.7)
[2019-05-10 10:45] LABS: BASOPHILS % (AUTO) 1 % (0-10); EOSINOPHILS # (AUTO) 0.3 10^3/uL (0.0-0.3); EOSINOPHILS % (AUTO) 5 % (0-10); HEMATOCRIT 39 % (35-52); HEMOGLOBIN 11.7 G/DL (11.5-16.0); LYMPHOCYTES # (AUTO) 0.7 X 10^3 (1.0-4.0); LYMPHOCYTES % (AUTO) 10 % (12-44); MEAN CORPUSCULAR HEMOGLOBIN 28 PG (25-34); MEAN CORPUSCULAR HGB CONC 30 G/DL (32-36); MEAN CORPUSCULAR VOLUME 93 FL (80-99); MEAN PLATELET VOLUME 9.3 FL (7.4-10.4); MONOCYTES # (AUTO) 0.4 X 10^3 (0.0-1.0); MONOCYTES % (AUTO) 6 % (0-12); NEUTROPHILS # (AUTO) 5.8 X 10^3 (1.8-7.8); NEUTROPHILS % (AUTO) 79 % (42-75); PLATELET COUNT 157 10^3/uL (130-400); RED CELL DISTRIBUTION WIDTH 14.6 % (10.0-14.5); WHITE BLOOD COUNT 7.3 10^3/uL (4.3-11.0)
[2019-05-10 10:57] LABS: INR 2.3 (0.8-1.4); PROTHROMBIN TIME PATIENT 26.7 SEC (12.2-14.7)
[2019-05-10 11:50] LABS: ALANINE AMINOTRANSFERASE 18 U/L (0-55); ALBUMIN 3.9 GM/DL (3.2-4.5); ALKALINE PHOSPHATASE 130 U/L (40-136); BILIRUBIN,TOTAL 0.4 MG/DL (0.1-1.0); BUN/CREATININE RATIO 16; CALCIUM 8.6 MG/DL (8.5-10.1); CARBON DIOXIDE 26 MMOL/L (21-32); CHLORIDE 105 MMOL/L (98-107); CREATININE SERUM 0.73 MG/DL (0.60-1.30); GFR ESTIMATED > 60; GLUCOSE 96 MG/DL (70-105); POTASSIUM 3.7 MMOL/L (3.6-5.0); SODIUM 140 MMOL/L (135-145); TOTAL PROTEIN 6.7 GM/DL (6.4-8.2)
[2019-05-17 10:29] LABS: INR 2.9 (0.8-1.4); PROTHROMBIN TIME PATIENT 31.8 SEC (12.2-14.7)
[2019-05-24 11:30] LABS: PROTHROMBIN TIME PATIENT 34.1 SEC (12.2-14.7)
[2019-05-24 11:31] LABS: INR 3.2 (0.8-1.4)
[2019-05-31 11:24] LABS: INR 1.6 (0.8-1.4); PROTHROMBIN TIME PATIENT 19.8 SEC (12.2-14.7)
[2019-06-07 11:02] LABS: PROTHROMBIN TIME PATIENT 23.4 SEC (12.2-14.7)
[2019-06-14 10:16] LABS: INR 1.6 (0.8-1.4); PROTHROMBIN TIME PATIENT 20.1 SEC (12.2-14.7)
== END 2019-06-20 | disposition home or self-care (01) ==
LOC: ONC 09:45
PROVIDERS: ATTEND Internal Medicine Hematology & Oncology
DX: Z08 Encounter for follow-up examination after completed treatment for malignant neoplasm (principal); Z85.3 Personal history of malignant neoplasm of breast; M85.80 Other specified disorders of bone density and structure, unspecified site; Z86.718 Personal history of other venous thrombosis and embolism; Z79.01 Long term (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 of anticoagulants; Z95.2 Presence of prosthetic heart valve; Z92.21 Personal history of antineoplastic chemotherapy; Z92.3 Personal history of irradiation; Z90.12 Acquired absence of left breast and nipple
CPT/HCPCS: 36415; 80053; 85025; 85610; 99213

== ENCOUNTER → 2019-09-05 | Outpatient (CLI) | payer MEDICARE ==
[~2019-09-05] MED LIST changes: -ACET-2469 PO; +ACET-2715 PO; -MEMA10TA22 PO; +MEMA10TA57 PO; -METO-395 PO; +MTP100TCR PO; -TRAM50TA2 PO; +TRM50T PO
== END ==
LOC: LAB 09:52
PROVIDERS: ATTEND Nurse Practitioner Family
DX: L93.2 Other local lupus erythematosus (principal)
CPT/HCPCS: 36415; 86038; 86225; 86235; 86256

== ENCOUNTER 2019-09-13 13:51 | Outpatient (RCR) | payer MEDICARE ==
[2019-06-21 11:15] LABS: INR 1.6 (0.8-1.4); PROTHROMBIN TIME PATIENT 19.6 SEC (12.2-14.7)
[2019-07-19 11:18] LABS: INR 2.4 (0.8-1.4); PROTHROMBIN TIME PATIENT 27.4 SEC (12.2-14.7)
[2019-07-26 13:45] LABS: INR 2.2 (0.8-1.4); PROTHROMBIN TIME PATIENT 25.6 SEC (12.2-14.7)
[2019-08-11 09:46] LABS: INR 2.3 (0.8-1.4); PROTHROMBIN TIME PATIENT 26.5 SEC (12.2-14.7)
[2019-08-23 09:29] LABS: INR 2.5 (0.8-1.4); PROTHROMBIN TIME PATIENT 28.1 SEC (12.2-14.7)
[2019-09-13 14:41] LABS: INR 5.5 (0.8-1.4); PROTHROMBIN TIME PATIENT 52.7 SEC (12.2-14.7)
== END 2019-09-19 | disposition home or self-care (01) ==
LOC: ONC 13:51
PROVIDERS: ATTEND Internal Medicine Hematology & Oncology
DX: Z08 Encounter for follow-up examination after completed treatment for malignant neoplasm (principal); Z85.3 Personal history of malignant neoplasm of breast; M85.80 Other specified disorders of bone density and structure, unspecified site; Z86.718 Personal history of other venous thrombosis and embolism; Z79.01 Long term (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 of anticoagulants; Z95.2 Presence of prosthetic heart valve; Z92.21 Personal history of antineoplastic chemotherapy; Z92.3 Personal history of irradiation; Z90.12 Acquired absence of left breast and nipple
CPT/HCPCS: 85610

== ENCOUNTER → 2019-09-20 | Outpatient (CLI) | payer MEDICARE ==
[2019-09-20 13:27] LABS: BASOPHILS % (AUTO) 0 % (0-10); EOSINOPHILS # (AUTO) 0.4 10^3/uL (0.0-0.3); EOSINOPHILS % (AUTO) 5 % (0-10); HEMATOCRIT 38 % (35-52); HEMOGLOBIN 11.6 G/DL (11.5-16.0); LYMPHOCYTES # (AUTO) 1.2 X 10^3 (1.0-4.0); LYMPHOCYTES % (AUTO) 14 % (12-44); MEAN CORPUSCULAR HEMOGLOBIN 28 PG (25-34); MEAN CORPUSCULAR HGB CONC 31 G/DL (32-36); MEAN CORPUSCULAR VOLUME 92 FL (80-99); MEAN PLATELET VOLUME 9.5 FL (7.4-10.4); MONOCYTES # (AUTO) 0.6 X 10^3 (0.0-1.0); MONOCYTES % (AUTO) 7 % (0-12); NEUTROPHILS # (AUTO) 6.7 X 10^3 (1.8-7.8); NEUTROPHILS % (AUTO) 75 % (42-75); PLATELET COUNT 252 10^3/uL (130-400); RED CELL DISTRIBUTION WIDTH 14.4 % (10.0-14.5); WHITE BLOOD COUNT 8.9 10^3/uL (4.3-11.0)
[2019-09-20 13:49] LABS: ALANINE AMINOTRANSFERASE 32 U/L (0-55); ALBUMIN 3.9 GM/DL (3.2-4.5); ALKALINE PHOSPHATASE 110 U/L (40-136); BILIRUBIN,TOTAL 0.3 MG/DL (0.1-1.0); BUN/CREATININE RATIO 22; CALCIUM 8.8 MG/DL (8.5-10.1); CARBON DIOXIDE 27 MMOL/L (21-32); CHLORIDE 101 MMOL/L (98-107); CREATININE SERUM 0.73 MG/DL (0.60-1.30); GFR ESTIMATED > 60; GLUCOSE 121 MG/DL (70-105); POTASSIUM 3.9 MMOL/L (3.6-5.0); SODIUM 138 MMOL/L (135-145); TOTAL PROTEIN 6.8 GM/DL (6.4-8.2)
== END ==
LOC: LAB 12:48
PROVIDERS: ATTEND Student in an Organized Health Care Education/Training Program
DX: E03.9 Hypothyroidism, unspecified (principal)
CPT/HCPCS: 36415; 80053; 84439; 84443; 85025

== ENCOUNTER → 2019-10-18 | Outpatient (CLI) | payer MEDICARE ==
[2019-10-18 08:52] LABS: BASOPHILS % (AUTO) 1 % (0-10); EOSINOPHILS # (AUTO) 0.3 10^3/uL (0.0-0.3); EOSINOPHILS % (AUTO) 5 % (0-10); HEMATOCRIT 38 % (35-52); HEMOGLOBIN 11.5 G/DL (11.5-16.0); LYMPHOCYTES # (AUTO) 0.9 X 10^3 (1.0-4.0); LYMPHOCYTES % (AUTO) 14 % (12-44); MEAN CORPUSCULAR HEMOGLOBIN 28 PG (25-34); MEAN CORPUSCULAR HGB CONC 30 G/DL (32-36); MEAN CORPUSCULAR VOLUME 93 FL (80-99); MEAN PLATELET VOLUME 9.5 FL (7.4-10.4); MONOCYTES # (AUTO) 0.5 X 10^3 (0.0-1.0); MONOCYTES % (AUTO) 8 % (0-12); NEUTROPHILS # (AUTO) 4.7 X 10^3 (1.8-7.8); NEUTROPHILS % (AUTO) 72 % (42-75); PLATELET COUNT 176 10^3/uL (130-400); RED CELL DISTRIBUTION WIDTH 15.1 % (10.0-14.5); WHITE BLOOD COUNT 6.6 10^3/uL (4.3-11.0)
[2019-10-18 09:20] LABS: ALANINE AMINOTRANSFERASE 30 U/L (0-55); ALBUMIN 3.9 GM/DL (3.2-4.5); ALKALINE PHOSPHATASE 90 U/L (40-136); BILIRUBIN,TOTAL 0.4 MG/DL (0.1-1.0); BUN/CREATININE RATIO 18; CALCIUM 8.9 MG/DL (8.5-10.1); CARBON DIOXIDE 30 MMOL/L (21-32); CHLORIDE 105 MMOL/L (98-107); CREATININE SERUM 0.71 MG/DL (0.60-1.30); GFR ESTIMATED > 60; GLUCOSE 83 MG/DL (70-105); POTASSIUM 3.5 MMOL/L (3.6-5.0); SODIUM 144 MMOL/L (135-145); TOTAL PROTEIN 6.4 GM/DL (6.4-8.2)
== END ==
LOC: LAB 08:26
PROVIDERS: ATTEND Nurse Practitioner Family
DX: L93.2 Other local lupus erythematosus (principal); Z79.899 Other long term (current) drug therapy
CPT/HCPCS: 36415; 80053; 85025

== ENCOUNTER 2019-12-13 10:01 | Outpatient (RCR) | payer MEDICARE ==
[2019-09-20 14:01] LABS: INR 6.2 (0.8-1.4)
[2019-09-28 09:39] LABS: INR 1.6 (0.8-1.4); PROTHROMBIN TIME PATIENT 20.1 SEC (12.2-14.7)
[2019-10-04 14:39] LABS: INR 1.5 (0.8-1.4); PROTHROMBIN TIME PATIENT 18.5 SEC (12.2-14.7)
[2019-10-11 10:35] LABS: INR 3.9 (0.8-1.4); PROTHROMBIN TIME PATIENT 39.9 SEC (12.2-14.7)
[2019-10-18 09:09] LABS: INR 3.2 (0.8-1.4); PROTHROMBIN TIME PATIENT 34.5 SEC (12.2-14.7)
[2019-10-25 09:44] LABS: INR 1.8 (0.8-1.4); PROTHROMBIN TIME PATIENT 21.2 SEC (12.2-14.7)
[2019-11-01 10:06] LABS: INR 1.6 (0.8-1.4); PROTHROMBIN TIME PATIENT 19.9 SEC (12.2-14.7)
[2019-11-08 13:33] LABS: INR 2.2 (0.8-1.4); PROTHROMBIN TIME PATIENT 25.7 SEC (12.2-14.7)
[2019-11-15 10:57] LABS: INR 1.8 (0.8-1.4); PROTHROMBIN TIME PATIENT 21.9 SEC (12.2-14.7)
[2019-11-22 10:56] LABS: INR 2.4 (0.8-1.4); PROTHROMBIN TIME PATIENT 27.1 SEC (12.2-14.7)
[2019-11-29 09:53] LABS: INR 1.9 (0.8-1.4); PROTHROMBIN TIME PATIENT 22.3 SEC (12.2-14.7)
[2019-12-06 09:26] LABS: INR 2.6 (0.8-1.4)
[2019-12-13 10:32] LABS: INR 2.3 (0.8-1.4); PROTHROMBIN TIME PATIENT 26.5 SEC (12.2-14.7)
== END 2019-12-19 | disposition home or self-care (01) ==
LOC: ONC 10:01
PROVIDERS: ATTEND Internal Medicine Hematology & Oncology
DX: Z08 Encounter for follow-up examination after completed treatment for malignant neoplasm (principal); Z85.3 Personal history of malignant neoplasm of breast; M85.80 Other specified disorders of bone density and structure, unspecified site; Z86.718 Personal history of other venous thrombosis and embolism; Z79.01 Long term (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 of anticoagulants; Z95.2 Presence of prosthetic heart valve; Z92.21 Personal history of antineoplastic chemotherapy; Z92.3 Personal history of irradiation; Z90.12 Acquired absence of left breast and nipple
CPT/HCPCS: 36415; 85610